=== PATIENT | female | born 1945 | race Caucasian/White ===

== ENCOUNTER → 2018-03-11 | Outpatient (CLI) | payer MEDICARE, OTHER ==
[~2018-03-11] MED LIST: ALPR.5T PO; ALPR0.5T72 PO; AMLO10TA82 PO; ATR20T PO; BNZ20T PO; CALC-656 PO; CALTRATE; CETI10TA17 PO; CHLO1CAP61 PO; CHLO25CA41 PO; CHOL400C8 PO; CHOL5000 PO; CLCX200C; CYCL5TAB PO; DICL100G20 TP; DOXA2TAB2 PO; DOXA4TAB2 PO; FURO20TA4 PO; GBPN100C PO; HYDR-3720 PO; HYDR1TAB71 PO; KCL20TCR PO; LORA10CA PO; LOTREL; LYRICA; METO100T2 PO; MMT17NA NS; MTP100TCR PO; MULT1TAB63; NAPR1TAB21 PO; NF-ESOM40C PO; OSTEO-BI-FLEX; OXYC1TAB PO; PREG75CA PO; SCR1T1 PO; TOLTA4 PO; TRAM50TA2 PO; VITAMIN B PO
--- NOTE | 2018-03-11 16:31 | Diagnostic Imaging Report ---
PROCEDURE: MRI lumbar spine. TECHNIQUE: Multiplanar, multisequence MRI of the lumbar spine was performed without contrast. INDICATION: Back pain. FINDINGS: The previous MRI lumbar spine exam performed on 05/20/2011 noted postsurgical changes, consistent with fusion of L3, L4, L5, and S1. On the prior exam, the orthopedic hardware appeared to be in good position. On this study, the orthopedic hardware seems unchanged. There is no evidence for spinal stenosis or nerve root encroachment at L3-L4, L4-L5, or L5-S1. The deformity of the thecal sac in the region of the fusion seen on the prior exam is again evident and unchanged. 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 The AP diameter of the thecal sac was narrowed to 7.5 mm. There did not appear to be any significant neuroforaminal narrowing, however. On this exam, the AP diameter of the thecal sac now measures 6.5 mm at L2-L3. There is still no significant neuroforaminal narrowing. At the L1-L2 level, there is still no evidence for spinal stenosis or nerve root encroachment. There is no abnormal signal arising from the cord or other vertebral bodies to indicate an acute abnormality. There is no sign of a paraspinal mass. However, along the superior pole of the right kidney, there is a 1.7 x 1.9 cm rounded mass. There was a similar-appearing but smaller 1.1 x 1.1 cm mass in this area on the prior exam. It is possible that this could represent a complex cyst. A solid lesion could also present in this manner. I would recommend that CT of the abdomen and pelvis be performed to better evaluate this finding. IMPRESSION: 1. 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 There is still no significant neuroforaminal narrowing at this level. 2. The remainder of the lumbar spine is stable when compared to the prior exam. No new abnormality has developed. 3. There is no sign of an acute bony abnormality or of a cord lesion. 4. The rounded soft tissue density along the medial aspect of the superior pole of the right kidney is of uncertain etiology. Considerations and recommendations, as above. Dictated by: Dictated on workstation # [id number]
== END ==
LOC: RAD 15:11
PROVIDERS: ATTEND Allergy & Immunology
DX: M48.061 Spinal stenosis, lumbar region without neurogenic claudication (principal)
CPT/HCPCS: 72148

== ENCOUNTER → 2018-04-13 | Outpatient (CLI) | payer MEDICARE, OTHER ==
--- NOTE | 2018-04-13 11:35 | Diagnostic Imaging Report ---
PROCEDURE: MR imaging abdomen without contrast. TECHNIQUE: Multiplanar, multisequence MR imaging of the abdomen was performed without contrast. INDICATION: Right renal lesion. COMPARISON: MR lumbar spine dated 03/11/2018 and 05/20/2011. FINDINGS: Again identified is heterogeneous partially exophytic mass-type lesion extending from the posterior margins of the superior pole right kidney. It measures approximately 2 x 1.7 cm in axial dimension by approximately 1.9 cm in cc dimension. The lesion demonstrates heterogeneous signal on both the T1 and T2 sequences, but is overall most similar to signal of paraspinous muscle. No fluid-fluid levels are identified. Evaluation is somewhat suboptimal given lack of IV contrast, but lesion is felt to be solid in nature. Again, there has been interval increase in size when compared to previous MR lumbar spine dated 05/20/2011 in which it measured 1.1 x 1.1 cm. There is no significant stranding of the perirenal fat. No enlarged perirenal adenopathy is identified. The right renal vein and IVC show normal flow void without evidence of tumor thrombus. Left kidney has a normal appearance. There is significant signal drop of the hepatic parenchyma between the in and out of phase sequences suggestive of background of hepatic steatosis. Otherwise, the visualized portions of the liver, spleen, pancreas, and adrenal glands are unremarkable. There is no free fluid within the abdomen. Visualized small bowel loops are nondistended. IMPRESSION: 1. Solid-appearing heterogeneous lesion of the superior pole of the right kidney. This should be considered malignant and security representative renal cell carcinoma until proven otherwise. Lesion does appear to be in a position amenable to CT-guided biopsy, if indicated. 2. Hepatic steatosis. Dictated by: Dictated on workstation # [id number]
== END ==
LOC: RAD 09:50
PROVIDERS: ATTEND Allergy & Immunology
DX: N28.89 Other specified disorders of kidney and ureter (principal); K76.0 Fatty (change of) liver, not elsewhere classified
CPT/HCPCS: 74181

== ENCOUNTER → 2019-07-19 | Outpatient (CLI) | payer MEDICARE, OTHER ==
--- NOTE | 2019-07-19 10:17 | Diagnostic Imaging Report ---
PROCEDURE: CT abdomen and pelvis without contrast. TECHNIQUE: Multiple contiguous axial images were obtained through the abdomen and pelvis without the use of intravenous contrast. Auto Exposure Controls were utilized during the CT exam to meet ALARA standards for radiation dose reduction. INDICATION: Right flank pain. COMPARISON: No prior studies are available for comparison. FINDINGS: The lung bases are clear. No discrete liver mass is identified. The gallbladder is unremarkable. No biliary ductal dilatation is seen. There are some surgical clips in the hepatogastric region. Pancreas and spleen are unremarkable. No adrenal mass is identified. There appear to be postsurgical changes to the upper pole of the right kidney. No residual or recurrent mass is detected. There is no hydronephrosis. Left kidney is unremarkable. Aorta is calcified but nonaneurysmal. Small and large bowel loops are normal in caliber. There is no obstruction. There is diverticulosis of the descending and sigmoid colon but no evidence of acute diverticulitis. Uterus is unremarkable. Bladder is decompressed. There is no ascites. No inflammatory changes are detected. Bony structures demonstrate postop changes of posterior instrumented fusion at L3 through S1. IMPRESSION: 1. Postsurgical changes to the right kidney. No residual or recurrent mass is detected. 2. Uncomplicated diverticulosis. 3. No acute feature is detected. Dictated by: Dictated on workstation # [id number]
== END ==
LOC: RAD 09:37
PROVIDERS: ATTEND Urology
DX: K57.30 Diverticulosis of large intestine without perforation or abscess without bleeding (principal); Z98.1 Arthrodesis status; Z98.890 Other specified postprocedural states
CPT/HCPCS: 74176

== ENCOUNTER → 2019-11-22 | Outpatient (CLI) | payer MEDICARE, OTHER ==
--- NOTE | 2019-11-22 13:48 | Diagnostic Imaging Report ---
PROCEDURE: MRI lumbar spine. TECHNIQUE: Multiplanar, multisequence MRI of the lumbar spine was performed without contrast. INDICATION: Low back pain. Patient has prior history of lumbar spine surgery. COMPARISON: Correlation is made with prior MRI of the lumbar spine from 11/23/2018. FINDINGS: Right convexity lumbar scoliotic curvature is noted. There is normal lordotic curvature. Decompression laminectomy L3 through L5 with posterior instrumented fusion L3 through S1 is again noted with vertical stabilization rods and pedicle screws. Hardware again produces moderate artifact. Lumbar vertebral bodies show normal stature without evidence of an acute compression fracture. Significant degenerative disc disease at L2-L3 level is again noted where there is complete loss of the disc space and desiccation as well as marginal osteophyte formation. The conus is unremarkable at the L1-L2 level. T12-L1: Central canal and neural foramina are widely patent. L1-L2: There is some ligamentous thickening and endplate osteophyte changes, but central canal is patent. Neural foramina are patent. L2-L3: Ligamentous thickening and broad-based disc/osteophyte complex indent the ventral thecal sac and produce a fairly significant central canal stenosis, similar to prior. There is also significant bilateral lateral recess stenosis and moderate left and mild right neural foraminal stenosis. L3-L4: Central canal is patent. Neural foramina appear patent. L4-L5: Central canal is patent. Neural foramina are patent. L5-S1: Central canal and neural foramina are patent. The paraspinous tissues are unremarkable. IMPRESSION: Decompression laminectomy with posterior instrumented fusion from L3 to S1. Significant adjacent level disease at the L2-L3 level is again noted with central canal, lateral recess, and neural foraminal stenosis, as described. No acute compression fracture is detected. Dictated by: Dictated on workstation # [id number]
== END ==
LOC: RAD 12:22
PROVIDERS: ATTEND Orthopaedic Surgery Orthopaedic Surgery of the Spine
DX: M48.061 Spinal stenosis, lumbar region without neurogenic claudication (principal); Z98.1 Arthrodesis status
CPT/HCPCS: 72148

== ENCOUNTER 2020-05-26 02:20 | Emergency (ER) | payer MEDICARE, OTHER ==
[~2020-05-26] VITALS: Ht 155 cm; Wt 69.0 kg
--- OUTSIDE RECORDS SUMMARY | 2020-05-26 02:31 | XMS REPORT | CCD ---
Author Author Natali Varela Organization Zoya Varela MD, [facility] Address [address] [place] [address] Phone Care Team Providers Care Hadoop Administrator Name Role Phone PP Unavailable CCM Unavailable Summary Purpose Interface Exchange Insurance Providers Payer name Policy type / Coverage type Covered green party ID Effective Begin Date Effective End Date WPS Medicare Part B Medicare Part B [id number] Unknown EnvalO INSURANCE Weilos Medicare Part B [id number] Unknown Family history Mother Diagnosis Age At Onset Liver Failure Unknown Diabetes mellitus Type 2 Unknown Hyperlipidemia Unknown Hypertension Unknown Cancer Unknown Arthritis Unknown Father Diagnosis Age At Onset Liver Failure Unknown Cancer Unknown Social History Social History Element Codes Description Effective Dates Marital status Unknown M arried 12/12/2011 Number of children Unknown 3 12/12/[address]: 4336239 Former smoker quit in 199212/12/2011 Allergies, Adverse Reactions, Alerts Substance Reaction Codes Entered Date Inactivated Date Status * NO KNOWN ENVIRONME NTAL ALLERGIES Unknown 12/12/2011 No Inactive Date Active * NO KNOWN DRUG YUKI RGIES Unknown 12/20/2011 No Inactive Date Active * NO KNOWN FOOD YUKI RGIES Unknown 12/12/2011 No Inactive Date Active Past Medical History Illness Codes Condition Status Onset Date Resolved Date Essential (primary) hypertension ICD-9: 401.1 ICD-10: I10 Active 09/22/2018 Unknown Mixed hyperlipidemia ICD-9: 272.2 ICD-10: E78.2 Active 05/13/2017 Unknown Acute bronchitis, un specified ICD-9: 466.0 ICD-10: J20.9 Active 05/11/2019 Unknown Cough ICD-9: 786.2 ICD-10: R05 Active 01/21/2019 Unknown 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 Active 02/16/2019 Unknown Acute upper respirat ory infection, unspecified ICD-9: 465.9 ICD-10: J06.9 Active 05/04/2018 Unknown Other specified card iac arrhythmias ICD-9: 427.89 ICD-10: I49.8 Active 09/22/2018 Unknown Sciatica Unknown Active 08/17/2018 Unknow n Allergic rhinitis du e to pollen ICD-9: 477.9 ICD-10: J30.1 Active 02/25/2012 Unknown Essential (primary) hypertension ICD-9: 401.9 ICD-10: I10 Active 06/16/2016 Unknown Sciatica, right side ICD-9: 724.3 ICD-10: M54.31 Active 08/17/2018 Unknown Encounter for immuni zation ICD-9: V03.82 ICD-10: Z23 Active 09/15/2016 Unknown 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 Active 06/08/2018 Unknown 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, except food ICD-9: 692.6 ICD-10: L23.7 Active 03/21/2017 Unknown Localized edema ICD-9: 782.3 ICD-10: R60.0 Active 01/10/2015 Unknown Type 2 diabetes eder itus without complications ICD-9: 250.00 ICD-10: E11.9 Active 07/19/2014 Unknown Encounter for genera l adult medical examination with abnormal findings ICD-9: V70.0 ICD-10: Z00.01 Active 01/22/2017 Unknown Bitten or stung by n onvenomous insect and other nonvenomous arthropods, initial encounter ICD-9: 919.4 ICD-10: W57.XXXA Active 03/19/2017 Unknown Cellulitis of left l ower limb ICD-9: 682.6 ICD-10: L03.116 Active 03/19/2017 Unknown Other specified epid ermal thickening ICD-9: 757.39 ICD-10: L85.8 Active 01/14/2017 Unknown Glossodynia ICD-9: 529.6 ICD-10: K14.6 Active 09/22/2016 Unknown Encounter for screen ing mammogram for malignant neoplasm of breast ICD-9: V76.12 ICD-10: Z12.31 Active 09/15/2016 Unknown Diseases of lips ICD-9: 528.5 ICD-10: K13.0 Active 06/24/2016 Unknown Acute laryngopharyng itis ICD-9: 465.0 ICD-10: J06.0 Active 04/03/2016 Unknown Other acute sinusitis ICD-9: 461.8 ICD-10: J01.80 Active 04/03/2016 Unknown Other allergic rhinitis ICD-9: 477.8 ICD-10: J30.89 Active 04/03/2016 Unknown Polyneuropathy, unsp ecified ICD-9: 356.9 ICD-10: G62.9 Active 03/12/2016 Unknown Cervicalgia ICD-9: 723.1 ICD-10: M54.2 Active 10/08/2015 Unknown Contact dermatitis ICD- 9: 692.9 Active 06/11/2015 Unknown ALLERGIC RHINITIS ICD-9: 477.9 Active 02/25/2012 Unknown Anxiety ICD-9: 300.00 Active 03/10/2014 Unknow n ESOPHAGEAL REFLUX ICD-9: 530.81 Active 04/11/2014 Unknown EDEMA ICD-9: 782.3 Active 01/10/2015 Unknow n Diabetes Unknown Active 07/19/2014 Unknow n DIABETES TYPE II ICD-9: 250.00 Active 07/19/2014 Unknown VACCIN FOR INFLUENZA ICD-9: V04.81 ICD-10: Z23 Active 07/19/2014 Unknown Left ankle pain ICD-9: 719.47 Active 06/17/2014 Unknown Elevated blood sugar ICD-9: 790.29 Active 04/19/2014 Unknown ESSENTIAL HYPERTENSION ICD-9: 401.9 Active 04/19/2014 Unknown Dyspnea ICD-9: 786.09 Active 03/10/2014 Unknow n Skin irritation ICD-9: 709.9 Active 10/25/2013 Unknown Encounter for long-t erm (current) use of other medications ICD-9: V58.69 Active 08/24/2013 Unknown BPPV (benign paroxys mal positional vertigo) ICD-9: 386.11 Active 06/30/2013 Unknown Leg pain ICD-9: 729.5 Active 12/01/2012 Unknow n Leg swelling ICD-9: 729.81 Active 12/01/2012 Unknown Shingles ICD-9: 053.9 Active 10/19/2012 Unknow n Irritable bowel disease ICD-9: 564.1 Active 2012 Unknown VACCIN FOR INFLUENZA ICD-9: V04.81 Active 08/04/2012 Unknown Lumbago ICD-9: 724.2 Active 07/01/2012 Unknow n Hot flash, menopausal ICD-9: 627.2 Active 04/20/2012 Unknown Back pain ICD-9: 724.5 Active 03/10/2012 Unknow n Malignant reactive h ypertension ICD-9: 401.0 Active 02/02 Unknown Acute bronchitis ICD-9: 466.0 Active 01/23/2012 Unknown Cough ICD-9: 786.2 Active 01/23/2012 Unknow n Change in skin mole ICD- 9: 216.9 Active 12/20/2011 Unknown CHRONIC TENSION HEAD ACHE ICD-9: 339.12 Active Unknown HYPERLIPIDEMIA ICD-9: 272.4 Active 12/20/2011 Unknown IMPACTED CERUMEN ICD-9: 380.4 Active 12/20/2011 Unknown Muscle spasm ICD-9: 728.85 Active 12/20/2011 Unknown Neck pain, chronic ICD- 9: 723.1 Active 12/20/2011 Unknown Hyperlipidemia Unknown Active 12/12/2011 Unknow n Hypertension Unknown Active 12/12/2011 Unknow n Osteoarthritis Unknown Active 12/12/2011 Unknow n Problems Condition Codes Effectiv e Dates Condition Status Essential (primary) hypertension ICD-9: 401.1 ICD-10: I10 09/22/2018 Active Mixed hyperlipidemia ICD-9: 272.2 ICD-10: E78.2 05/13/2017 Active Acute bronchitis, un specified ICD-9: 466.0 ICD-10: J20.9 05/11/2019 Active Cough ICD-9: 786.2 ICD-10: R05 01/21/2019 Active 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 02/16/2019 Active Acute upper respirat ory infection, unspecified ICD-9: 465.9 ICD-10: J06.9 05/04/2018 Active Other specified card iac arrhythmias ICD-9: 427.89 ICD-10: I49.8 09/22/2018 Active Sciatica Unknown 08/17/2018 Active Allergic rhinitis du e to pollen ICD-9: 477.9 ICD-10: J30.1 02/25/2012 Active Essential (primary) hypertension ICD-9: 401.9 ICD-10: I10 06/16/2016 Active Sciatica, right side ICD-9: 724.3 ICD-10: M54.31 08/17/2018 Active Encounter for immuni zation ICD-9: V03.82 ICD-10: Z23 09/15/2016 Active 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 06/08/2018 Active 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, except food ICD-9: 692.6 ICD-10: L23.7 03/21/2017 Active Localized edema ICD-9: 782.3 ICD-10: R60.0 01/10/2015 Active Type 2 diabetes eder itus without complications ICD-9: 250.00 ICD-10: E11.9 07/19/2014 Active Encounter for genera l adult medical examination with abnormal findings ICD-9: V70.0 ICD-10: Z00.01 01/22/2017 Active Bitten or stung by n onvenomous insect and other nonvenomous arthropods, initial encounter ICD-9: 919.4 ICD-10: W57.XXXA 03/19/2017 Active Cellulitis of left l ower limb ICD-9: 682.6 ICD-10: L03.116 03/19/2017 Active Other specified epid ermal thickening ICD-9: 757.39 ICD-10: L85.8 01/14/2017 Active Glossodynia ICD-9: 529.6 ICD-10: K14.6 09/22/2016 Active Encounter for screen ing mammogram for malignant neoplasm of breast ICD-9: V76.12 ICD-10: Z12.31 09/15/2016 Active Diseases of lips ICD-9: 528.5 ICD-10: K13.0 06/24/2016 Active Acute laryngopharyng itis ICD-9: 465.0 ICD-10: J06.0 04/03/2016 Active Other acute sinusitis ICD-9: 461.8 ICD-10: J01.80 04/03/2016 Active Other allergic rhinitis ICD-9: 477.8 ICD-10: J30.89 04/03/2016 Active Polyneuropathy, unsp ecified ICD-9: 356.9 ICD-10: G62.9 03/12/2016 Active Cervicalgia ICD-9: 723.1 ICD-10: M54.2 10/08/2015 Active Contact dermatitis ICD- 9: 692.9 06/11/2015 Active ALLERGIC RHINITIS ICD-9: 477.9 02/25/2012 Active Anxiety ICD-9: 300.00 03/10/2014 Active ESOPHAGEAL REFLUX ICD-9: 530.81 04/11/2014 Active EDEMA ICD-9: 782.3 01/10/2015 Active Diabetes Unknown 07/19/2014 Active DIABETES TYPE II ICD-9: 250.00 07/19/2014 Active VACCIN FOR INFLUENZA ICD-9: V04.81 ICD-10: Z23 07/19/2014 Active Left ankle pain ICD-9: 719.47 06/17/2014 Active Elevated blood sugar ICD-9: 790.29 04/19/2014 Active ESSENTIAL HYPERTENSION ICD-9: 401.9 04/19/2014 Active Dyspnea ICD-9: 786.09 03/10/2014 Active Skin irritation ICD-9: 709.9 10/25/2013 Active Encounter for long-t erm (current) use of other medications ICD-9: V58.69 08/24/2013 Active BPPV (benign paroxys mal positional vertigo) ICD-9: 386.11 06/30/2013 Active Leg pain ICD-9: 729.5 12/01/2012 Active Leg swelling ICD-9: 729.81 12/01/2012 Active Shingles ICD-9: 053.9 10/19/2012 Active Irritable bowel disease ICD-9: 564.1 2012 Active VACCIN FOR INFLUENZA ICD-9: V04.81 08/04/2012 Active Lumbago ICD-9: 724.2 07/01/2012 Active Hot flash, menopausal ICD-9: 627.2 04/20/2012 Active Back pain ICD-9: 724.5 03/10/2012 Active Malignant reactive h ypertension ICD-9: 401.0 02/25/2012 Active Acute bronchitis ICD-9: 466.0 01/23/2012 Active Cough ICD-9: 786.2 01/23/2012 Active Change in skin mole ICD- 9: 216.9 12/20/2011 Active CHRONIC TENSION HEAD ACHE ICD-9: 339.12 12/20/2011 Active HYPERLIPIDEMIA ICD-9: 272.4 12/20/2011 Active IMPACTED CERUMEN ICD-9: 380.4 12/20/2011 Active Muscle spasm ICD-9: 728.85 12/20/2011 Active Neck pain, chronic ICD- 9: 723.1 12/20/2011 Active Hyperlipidemia Unknown 12/12/2011 Active Hypertension Unknown 12/12/2011 Active Osteoarthritis Unknown 12/12/2011 Active Medications Medication Codes Instruc tions Start Date Stop Date Sta tus Fill Instructions meclizine 25 mg tablet RxNorm: 796988 TAKE ONE-HALF TO ONE TABLET BY MOUTH SORIN RY 6 HOURS NEEDED FOR VERTIGO 06/16/2019 06/29/2019 Inactive metoprolol tartrate 100 mg tablet RxNorm: 122446 1/2 Tablet(s) BID 06/14/2019 12/02/2021 Active this is an update to her RX - she does n ot need it filled right now Zithromax Z-Kush 250 mg tablet RxNorm: 996590 1 Tablet(s) PO UD 05/11/2019 05/15/2019 Inactive Kenalog 40 mg/mL sylvia pension for injection RxNorm: 6595664 1 Milliliter(s) Inj 05/11/2019 05/11/2019 In active tramadol 50 mg tablet RxNorm: 415300 1-2 Tablet(s) PO Q8 as needed 05/04/2019 07/02/2019 In active prednisone 10 mg tab lets in a dose pack RxNorm: 416678 1 Tablet(s) PO UD 04/12/2019 04/17/2019 In active 6-5-4-3-2-1 amlodipine 5 mg tablet RxNorm: 297902 TAKE ONE TABLET BY MOUTH DAILY 03/26/2019 12/20/2019 Ac tive atorvastatin 20 mg t ablet RxNorm: 619340 TAKE ONE TABLET BY MO [facility] DAILY 03/26/2019 09/21/2019 Ac tive doxazosin 4 mg tablet RxNorm: 064532 1 Tablet(s) UD 1.5 tab in AM and 1 tab a t hs 02/16/2019 09/13/2019 Ac tive metoprolol tartrate 100 mg tablet RxNorm: 650766 1.5 Tablet(s) BID 02/16/2019 06/13/2019 Inactive acyclovir 800 mg tablet RxNorm: 610479 1 Tablet(s) PO TID take for cold sore ou tbreaks 02/16/2019 04/26/2019 Inactive Xanax 0.25 mg tablet RxNorm: 489735 1/2-1 Tablet(s) PO QDAY PRN 02/03/2019 05/03/2019 Inactive cyclobenzaprine 10 m g tablet RxNorm: 716581 TAKE ONE TABLET BY MO UTH EVERY 8 HOURS NEEDED 01/27/2019 03/07/2019 Inactive doxazosin 4 mg tablet RxNorm: 027547 Tablet(s) TAKE ONE TABLET BY MOUTH TWO T IMES A DAY 01/21/2019 02/15/2019 Inactive doxazosin 4 mg tablet RxNorm: 104979 Tablet(s) TAKE ONE AND ONE-HALF (1 & 1/2 ) TABLET BY MOUTH BY MOUTH TWO TIMES A DAY 11/12/2018 01/20/2019 Inactive cyclobenzaprine 10 m g tablet RxNorm: 917846 TAKE ONE TABLET BY MO [facility] EVERY 8 HOURS NEEDED 11/12/2018 12/01/2018 Inactive tramadol 50 mg tablet RxNorm: 426008 1-2 Tablet(s) PO Q8 as needed 10/02/2018 05/10/2019 In active metoprolol tartrate 100 mg tablet RxNorm: 106853 1 Tablet(s) BID 09/22/2018 02/15/2019 Inactive metoprolol tartrate 100 mg tablet RxNorm: 928828 TAKE ONE AND ONE-HALF (1 1/2) TABLETS BY MOUTH EVERY MORNING AND TAKE TWO TABLETS BY MOUTH EVERY EVENING 09/21/2018 09/21/2018 In active Xanax 0.25 mg tablet RxNorm: 398774 1/2-1 Tablet(s) PO QDAY PRN 08/19/2018 05/03/2019 Inactive cyclobenzaprine 10 m g tablet RxNorm: 483026 TAKE ONE TABLET BY MO [facility] EVERY 8 HOURS NEEDED 07/01/2018 08/09/2018 Inactive atorvastatin 20 mg t ablet RxNorm: 426570 TAKE ONE TABLET BY MO [facility] DAILY 06/29/2018 12/25/2018 In active atorvastatin 20 mg t ablet RxNorm: 415143 TAKE ONE TABLET BY MO [facility] DAILY 06/29/2018 06/28/2018 In active pilocarpine 5 mg tablet RxNorm: 7145528 1 Tablet(s) PO BID 06/09/2018 06/08/2018 Inactive pilocarpine 5 mg tablet RxNorm: 2913189 1 Tablet(s) PO BID for dry mouth 06/09/2018 09/21/2018 In active Evoxac 30 mg capsule RxNorm: 843954 1 Capsule(s) PO BID as needed dry mouth 06/08/2018 06/08/2018 In active may substitute generic cyclobenzaprine 10 m g tablet RxNorm: 352009 TAKE ONE TABLET BY MO [facility] EVERY 8 HOURS NEEDED 05/14/2018 06/30/2018 Inactive amoxicillin 500 mg c apsule RxNorm: 253738 1 Capsule(s) PO BID 05/04/2018 05/13/2018 Inactive amoxicillin 500 mg c apsule RxNorm: 282553 1 Capsule(s) PO BID 05/04/2018 05/03/2018 Inactive tramadol 50 mg tablet RxNorm: 378477 1-2 Tablet(s) PO Q8 as needed 04/24/2018 06/21/2018 In active Kenalog 40 mg/mL sylvia pension for injection RxNorm: 4852273 Milliliter(s) Inj 04/24/2018 04/24/2018 In active amlodipine 5 mg tablet RxNorm: 671288 Tablet(s) TAKE ONE TABLET BY MOUTH DAILY 04/02/2018 03/25/2019 In active Xanax 0.25 mg tablet RxNorm: 289901 1/2-1 Tablet(s) PO QDAY PRN 04/02/2018 10/13/2018 Inactive metoprolol tartrate 100 mg tablet RxNorm: 062241 TAKE ONE AND ONE-HALF (1 1/2) TABLETS BY MOUTH EVERY MORNING AND TAKE TWO TABLETS BY MOUTH EVERY EVENING 02/25/2018 09/20/2018 In active Keflex 500 mg capsule RxNorm: 445157 1 Capsule(s) PO TID 02/06/2018 02/15/2018 Inactive Keflex 500 mg capsule RxNorm: 189021 1 Capsule(s) PO TID 02/06/2018 02/05/2018 Inactive Zithromax Z-Kush 250 mg tablet RxNorm: 203485 1 Tablet(s) PO UD 02/02/2018 02/06/2018 Inactive 2 tabs on day 1 then 1 tab daily on days 2-5 doxazosin 4 mg tablet RxNorm: 060813 TAKE ONE AND ONE-HALF (1 & 1/2) TABLET B Y MOUTH BY MOUTH TWO TIMES A DAY 01/16/2018 11/11/2018 Inactive atorvastatin 20 mg t ablet RxNorm: 574467 TAKE ONE TABLET BY MO [facility] DAILY 12/31/2017 06/28/2018 In active furosemide 20 mg tablet RxNorm: 228760 TAKE ONE TABLET BY MOUTH DAILY NEEDED FOR EDEMA 12/26/2017 06/23/2018 Inactive potassium chloride E R 10 mEq tablet,extended release RxNorm: 924213 TAKE ONE TABLET BY MOUTH NEEDED WITH LASIX 12/26/2017 06/23/2018 Inactive Xanax 0.25 mg tablet RxNorm: 777347 1/2-1 Tablet(s) PO QDAY PRN 11/27/2017 08/18/2018 Inactive cyclobenzaprine 10 m g tablet RxNorm: 283697 TAKE ONE TABLET BY MO [facility] EVERY 8 HOURS NEEDED 11/21/2017 02/08/2018 Inactive metoprolol tartrate 100 mg tablet RxNorm: 113101 TAKE ONE AND ONE-HALF (1 1/2) TABLETS BY MOUTH EVERY MORNING AND TAKE TWO TABLETS BY MOUTH EVERY EVENING 10/28/2017 02/24/2018 In active tramadol 50 mg tablet RxNorm: 031555 1-2 Tablet(s) PO Q8 as needed 10/28/2017 05/03/2019 In active cyclobenzaprine 10 m g tablet RxNorm: 815781 TAKE ONE TABLET BY MO [facility] EVERY 8 HOURS NEEDED 08/27/2017 10/25/2017 Inactive Xanax 0.25 mg tablet RxNorm: 702681 1/2-1 Tablet(s) PO QDAY PRN 08/04/2017 04/01/2018 Inactive cyclobenzaprine 10 m g tablet RxNorm: 395391 TAKE ONE TABLET BY MO [facility] EVERY 8 HOURS NEEDED 07/28/2017 08/16/2017 Inactive metoprolol tartrate 100 mg tablet RxNorm: 162160 TAKE ONE AND ONE-HALF (1 & 1/2) TABLET BY MOUTH EVERY MORNING AND TAKE TWO TABLETS BY MOUTH EVERY EVENING 07/28/2017 10/25/2017 In active cyclobenzaprine 10 m g tablet RxNorm: 547003 TAKE ONE TABLET BY MO [facility] EVERY 8 HOURS NEEDED 06/30/2017 07/19/2017 Inactive prednisone 10 mg tab lets in a dose pack RxNorm: 547391 1 Tablet(s) PO UD 06/23/2017 06/28/2017 In active 6-5-4-3-2-1 mupirocin 2 % topica l ointment RxNorm: 726019 1 Application TOP BID 06/23/2017 07/02/2017 Inactive Kenalog 40 mg/mL sylvia pension for injection RxNorm: 4834970 Milliliter(s) Inj 06/23/2017 06/23/2017 In active cyclobenzaprine 10 m g tablet RxNorm: 613313 TAKE ONE TABLET BY MO [facility] EVERY 8 HOURS NEEDED 06/09/2017 06/28/2017 Inactive meclizine 25 mg tablet RxNorm: 965066 1 Tablet(s) PO Q6 PRN as needed 1/2 - 1 pill every 6 hours as needed for vertigo 06/03/2017 07/14/2017 Inactive atorvastatin 20 mg t ablet RxNorm: 483495 TAKE ONE TABLET BY MO [facility] DAILY 05/30/2017 11/25/2017 In active amlodipine 5 mg tablet RxNorm: 581919 TAKE ONE TABLET BY MOUTH DAILY 05/15/2017 04/01/2018 In active cyclobenzaprine 10 m g tablet RxNorm: 777118 TAKE ONE TABLET BY MO [facility] EVERY 8 HOURS NEEDED 05/07/2017 05/26/2017 Inactive tramadol 50 mg tablet RxNorm: 154647 1-2 Tablet(s) PO Q8 as needed 04/07/2017 05/03/2019 In active cyclobenzaprine 10 m g tablet RxNorm: 030636 TAKE ONE TABLET BY MO [facility] EVERY 8 HOURS NEEDED 04/07/2017 04/26/2017 Inactive Xanax 0.25 mg tablet RxNorm: 091731 1/2-1 Tablet(s) PO QDAY PRN 04/04/2017 06/02/2017 Inactive metoprolol tartrate 100 mg tablet RxNorm: 665163 TAKE ONE AND ONE-HALF (1 & 1/2) TABLET BY MOUTH EVERY MORNING AND TAKE TWO TABLETS BY MOUTH EVERY EVENING 03/28/2017 07/25/2017 In active prednisone 10 mg tab lets in a dose pack RxNorm: 846989 1 Tablet(s) PO UD 03/21/2017 03/26/2017 In active 6-5-4-3-2-1 Kenalog 40 mg/mL sylvia pension for injection RxNorm: 8779637 2 Milliliter(s) Inj 03/21/2017 03/21/2017 In active doxycycline hyclate 100 mg capsule RxNorm: 1519673 1 Capsule(s) PO BID 03/19/2017 03/28/2017 In active cyclobenzaprine 10 m g tablet RxNorm: 645246 TAKE ONE TABLET BY MO [facility] EVERY 8 HOURS NEEDED 02/25/2017 03/16/2017 Inactive triamcinolone aceton pineda 0.1 % topical ointment RxNorm: 0392373 1 Application TOP TI D 02/21/2017 02/20/2017 Inactive triamcinolone aceton pineda 0.1 % topical ointment RxNorm: 6411716 1 Application TOP TI D 02/21/2017 03/02/2017 Inactive doxazosin 4 mg tablet RxNorm: 239706 TAKE ONE AND ONE-HALF (1 & 1/2) TABLET B Y MOUTH BY MOUTH TWO TIMES A DAY 02/14/2017 01/09/2018 Inactive cyclobenzaprine 10 m g tablet RxNorm: 826486 TAKE ONE TABLET BY [facility] EVERY 8 HOURS NEEDED 01/27/2017 02/15/2017 Inactive ammonium lactate 12 % topical cream RxNorm: 832276 1 Application TOP BID 01/14/2017 02/12/2017 In active dispense one bottle of the cream potassium chloride E R 10 mEq tablet,extended release RxNorm: 951876 1 Tablet(s) PO PRN as needed with lasix 11/13/2016 12/25/2017 Inactive prn swelling furosemide 20 mg tablet RxNorm: 941300 1 Tablet(s) PO daily as needed edema 11/13/2016 01/11/2017 In active metoprolol tartrate 100 mg tablet RxNorm: 626556 TAKE ONE AND ONE-HALF (1 & 1/2) TABLET BY MOUTH EVERY MORNING AND TAKE TWO TABLETS BY MOUTH EVERY EVENING 11/01/2016 03/27/2017 In active atorvastatin 20 mg t ablet RxNorm: 697115 TAKE ONE TABLET BY MO [facility] DAILY 10/31/2016 04/28/2017 In active cyclobenzaprine 10 m g tablet RxNorm: 314654 TAKE ONE TABLET BY [facility] EVERY 8 HOURS NEEDED 10/25/2016 12/03/2016 Inactive Lyrica 25 mg capsule RxNorm: 095817 1 Tablet(s) PO BID 09/23/2016 01/13/2017 Inactive Lyrica 50 mg capsule RxNorm: 574685 1 Capsule(s) PO BID 09/16/2016 01/13/2017 Inactive amlodipine 5 mg tablet RxNorm: 054256 Tablet(s) TAKE ONE TABLET BY MOUTH DAILY 08/28/2016 05/14/2017 In active cyclobenzaprine 10 m g tablet RxNorm: 986826 TAKE ONE TABLET BY [facility] EVERY 8 HOURS NEEDED 08/05/2016 09/13/2016 Inactive Xanax 0.25 mg tablet RxNorm: 721905 1/2-1 Tablet(s) PO QDAY PRN 07/16/2016 04/03/2017 Inactive amlodipine 5 mg tablet RxNorm: 963883 TAKE ONE TABLET BY MOUTH DAILY 06/28/2016 08/26/2016 In active metoprolol tartrate 100 mg tablet RxNorm: 083280 Tablet(s) TAKE ONE AN D ONE-HALF (1 & 1/2) TABLET BY MOUTH EVERY MORNING AND TAKE TWO TABLETS BY MOUTH EVERY EVENING 05/02/2016 05/02/2016 Inactive metoprolol tartrate 100 mg tablet RxNorm: 574578 Tablet(s) PO TAKE ONE AND ONE-HALF (1 & 1/2) TABLET BY MOUTH EVERY MORNING AND TAKE TWO TABLETS BY MOUTH EVERY EVENING 05/02/2016 05/01/2016 Inactive metoprolol tartrate 100 mg tablet RxNorm: 054258 Tablet(s) PO TAKE ONE AND ONE-HALF (1 & 1/2) TABLET BY MOUTH EVERY MORNING AND TAKE TWO TABLETS BY MOUTH EVERY EVENING 05/02/2016 10/28/2016 Inactive atorvastatin 20 mg t ablet RxNorm: 454083 TAKE ONE TABLET BY [facility] DAILY 04/25/2016 10/21/2016 In active tramadol 50 mg tablet RxNorm: 488619 1-2 Tablet(s) PO Q8 as needed 04/25/2016 10/27/2017 In active cyclobenzaprine 10 m g tablet RxNorm: 200390 Tablet(s) PO TAKE ONE TABLET BY MOUTH EVERY 8 HOURS NEEDED 04/18/2016 06/16/2016 Inactive Kenalog 40 mg/mL sylvia pension for injection RxNorm: 5338828 1 Milliliter(s) Inj 04/04/2016 04/04/2016 In active Phenergan with Codei ne Syrup RxNorm: PO 04/03/2016 02/15/2019 Inactive Zithromax Z-Kush 250 mg tablet RxNorm: 555503 1 Tablet(s) PO UD 04/03/2016 04/07/2016 Inactive 2 tabs on day 1 then 1 tab daily on days 2-5 amlodipine 5 mg tablet RxNorm: 690246 TAKE ONE TABLET BY MOUTH DAILY 03/27/2016 06/24/2016 In active Flexeril 10 mg tablet RxNorm: 362803 TAKE ONE TABLET BY MOUTH EVERY 8 HOURS A S NEEDED 03/14/2016 04/02/2016 Inactive Vitamin B-12 ER 2,00 0 mcg tablet,extended release RxNorm: 713923 1 Tablet(s) PO daily 03/13/2016 No Stop Date Active Vitamin B-12 ER 2,00 0 mcg tablet,extended release RxNorm: 860270 1 Tablet(s) PO daily 03/13/2016 05/04/2019 Inactive gabapentin 100 mg ca psule RxNorm: 207855 1 Capsule(s) PO BID 03/13/2016 09/15/2016 Inactive Flexeril 10 mg tablet RxNorm: 297632 Tablet(s) TAKE ONE TABLET BY MOUTH EVERY 8 HOURS NEEDED 02/08/2016 02/27/2016 Inactive Xanax 0.25 mg tablet RxNorm: 780230 1/2-1 Tablet(s) PO QDAY PRN 02/08/2016 07/15/2016 Inactive amlodipine 5 mg tablet RxNorm: 765599 1 Tablet(s) PO daily 02/06/2016 03/26/2016 Inactive furosemide 20 mg tablet RxNorm: 590354 1 Tablet(s) PO daily 01/30/2016 06/16/2016 Inactive amlodipine 10 mg tablet RxNorm: 641753 1/2 Tablet(s) PO daily 01/30/2016 02/05/2016 Inactive doxazosin 4 mg tablet RxNorm: 287909 1.5 Tablet(s) PO BID 01/30/2016 01/23/2017 Inactive Flexeril 10 mg tablet RxNorm: 861262 TAKE ONE TABLET BY MOUTH EVERY 8 HOURS A S NEEDED 01/10/2016 01/29/2016 Inactive potassium chloride E R 10 mEq tablet,extended release RxNorm: 982433 1 Tablet(s) PO PRN as needed with lasix 12/25/2015 06/16/2016 Inactive prn swelling amlodipine 10 mg tablet RxNorm: 499346 TAKE ONE TABLET BY MOUTH EVERY MORNING 12/25/2015 12/24/2015 In active amlodipine 10 mg tablet RxNorm: 896903 TAKE ONE TABLET BY MOUTH EVERY MORNING 12/25/2015 01/29/2016 In active furosemide 20 mg tablet RxNorm: 871154 1/2 Tablet(s) PO daily as needed edema 12/21/2015 01/19/2016 In active pt needs to take 10meq potassium on days she takes the lasix metoprolol tartrate 100 mg tablet RxNorm: 442778 TAKE ONE AND ONE-HALF (1 & 1/2) TABLET BY MOUTH EVERY MORNING AND TAKE TWO TABLETS BY MOUTH EVERY EVENING 11/08/2015 12/07/2015 In active Flonase Allergy Reli ef 50 mcg/actuation nasal spray,suspension RxNorm: [place] as needed PLACE 2 SPRAYS IN EACH NOSTRIL DAILY 10/09/2015 02/05/2016 Inactive Flexeril 10 mg tablet RxNorm: 072602 1 Tablet(s) PO TID PRN TAKE ONE TABLET B Y MOUTH EVERY 8 HOURS NEEDED 10/09/2015 12/07/2015 Inactive alprazolam 0.5 mg ta blet RxNorm: 661846 TAKE ONE TABLET BY [facility] AT BEDTIME NEEDED FOR ANXIETY 08/29/2015 11/23/2015 Inactive Flonase Allergy Reli ef 50 mcg/actuation nasal spray,suspension RxNorm: PLACE 2 SPRAYS IN EACH NOSTRIL DAILY 07/06/2015 10/08/2015 Inactive Kenalog 40 mg/mL [facility] for injection RxNorm: 3101417 Milliliter(s) Inj 06/12/2015 06/12/2015 In active prednisone 10 mg tab lets in a dose pack RxNorm: 082939 1 Tablet(s) PO UD 06/12/2015 06/17/2015 In active 6-5-4-3-2-1 acyclovir 800 mg tablet RxNorm: 574881 1 Tablet(s) PO TID 06/12/2015 06/21/2015 Inactive Xanax 0.25 mg tablet RxNorm: 589339 1/2-1 Tablet(s) PO QDAY PRN 05/15/2015 02/07/2016 Inactive Flonase Allergy Reli ef 50 mcg/actuation nasal spray,suspension RxNorm: 2 [place] NASAL daily 05/15/2015 06/13/2015 Inactive Kenalog 40 mg/mL sylvia pension for injection RxNorm: 6350120 Milliliter(s) Inj 05/15/2015 05/15/2015 In active metoprolol tartrate 100 mg tablet RxNorm: 730273 TAKE ONE AND ONE-HALF (1 & 1/2) TABLET BY MOUTH EVERY MORNING AND TAKE TWO TABLETS BY MOUTH EVERY EVENING 05/07/2015 06/05/2015 In active metoprolol tartrate 100 mg tablet RxNorm: 808457 TAKE ONE AND ONE-HALF (1 & 1/2) TABLET BY MOUTH EVERY MORNING AND TAKE TWO TABLETS BY MOUTH EVERY EVENING 04/05/2015 05/04/2015 In active amlodipine 10 mg tablet RxNorm: 128035 TAKE ONE TABLET BY MOUTH EVERY MORNING 03/10/2015 12/04/2015 In active alprazolam 0.5 mg ta blet RxNorm: 740742 TAKE ONE TABLET BY MO UTH EVERY NIGHT AT BEDTIME NEEDED FOR ANXIETY 02/23/2015 03/24/2015 Inactive (Response to an electronic controlled substance refill request - RxReferenceNumber: [id number]) alprazolam 0.5 mg ta blet RxNorm: 002114 1 Tablet(s) PO QHS as needed anxiety 02/23/2015 08/29/2015 In active (Response to an electronic controlled salas bstance refill request - RxReferenceNumber: [id number]) doxazosin 4 mg tablet RxNorm: 740715 TAKE ONE TABLET BY MOUTH TWICE A DAY 02/13/2015 01/29/2016 In active atorvastatin 20 mg t ablet RxNorm: 248509 TAKE ONE TABLET BY MO UTH EVERY DAY 01/19/2015 05/03/2019 In active atorvastatin 20 mg t ablet RxNorm: 993527 Tablet(s) TAKE ONE TA BLET BY MOUTH EVERY DAY 01/19/2015 01/18/2015 Inactive [SAVINGS FOR NON-COVERED DRUGS -- BIN:3584, PCN: ASPROD1, Group: XXXXX, ID# [id number], Questions: . THIS IS NOT INSURANCE.] Maxzide-25mg 37.5 mg -25 mg tablet RxNorm: 94096 1 Tablet(s) PO daily 01/10/2015 10/08/2015 Inactive [SAVINGS FOR NON-COVERED DRUGS -- BIN:3584, PCN: ASPROD1, Group: [id number], ID# [id number], Questions: . THIS IS NOT INSURANCE.] metoprolol tartrate 100 mg tablet RxNorm: 482970 TAKE ONE AND ONE-HALF (1 & 1/2) TABLET BY MOUTH EVERY MORNING AND TAKE TWO TABLETS BY MOUTH EVERY EVENING 12/05/2014 01/03/2015 In active Flexeril 10 mg tablet RxNorm: 380865 TAKE ONE TABLET BY MOUTH EVERY 8 HOURS A S NEEDED 10/31/2014 06/27/2015 Inactive alprazolam 0.5 mg ta blet RxNorm: 842532 1 Tablet(s) PO QHS TA KE ONE TABLET BY MOUTH EVERY NIGHT AT BEDTIME AND NEEDED FOR PANIC ATTACKS 10/21/2014 10/23/2014 Inactive (Appended: Controlled substance eRx refi ll - RxReferenceNumber: [id number]) alprazolam 0.5 mg ta blet RxNorm: 623820 TAKE ONE TABLET BY MO UTH EVERY NIGHT AT BEDTIME NEEDED FOR ANXIETY 10/20/2014 11/18/2014 Inactive (Response to an electronic controlled substance refill request - RxReferenceNumber: [id number]) amlodipine 10 mg tablet RxNorm: 656659 1 Tablet(s) PO QAM 09/09/2014 03/07/2015 Inactive now taking full tab [SAVINGS FOR UNINSURED PATIENTS -- BIN:[id number], PCN: ASPROD1, Group: [id number], ID# [id number], Process claim through [employer], for questions: . THIS IS NOT INSURANCE.] metoprolol tartrate 100 mg tablet RxNorm: 754196 TAKE ONE AND ONE-HALF (1 & 1/2) TABLET BY MOUTH EVERY MORNING AND TAKE TWO TABLETS BY MOUTH EVERY EVENING 09/03/2014 10/02/2014 In active alprazolam 0.5 mg ta blet RxNorm: 541683 TAKE ONE TABLET BY MO UTH EVERY NIGHT AT BEDTIME AND NEEDED FOR PANIC ATTACKS 08/29/2014 09/12/2014 Inactive (Response to an electronic controlled substance refill request - RxReferenceNumber: [id number]) Zithromax Z-Kush 250 mg tablet RxNorm: 001853 1 Tablet(s) PO UD 07/26/2014 07/25/2014 Inactive 2 tabs on day 1 then 1 tab daily on days 2-5 Zithromax Z-Kush 250 mg tablet RxNorm: 999226 1 Tablet(s) PO UD 07/26/2014 07/30/2014 Inactive 2 tabs on day 1 then 1 tab daily on days 2-5 alprazolam 0.5 mg ta blet RxNorm: 677977 Tablet(s) PO TAKE ONE TABLET BY MOUTH EVERY NIGHT AT BEDTIME AND NEEDED FOR PANIC ATTACKS 07/08/2014 08/30/2014 Inactive (Appended: Controlled substance eRx refill - RxReferenceNumber: [id number]) atorvastatin 20 mg t ablet RxNorm: 673079 TAKE ONE TABLET BY MO UTH EVERY DAY 04/25/2014 01/18/2015 In active Carafate 1 gram tablet RxNorm: 696646 Tablet(s) PO TAKE ONE TABLET BY MOUTH FO UR TIMES A DAY 04/14/2014 10/08/2015 Inactive Fish Oil 1,000 mg ca psule RxNorm: 1 Capsule(s) PO TID 04/13/2014 10/08/2015 Inactive Flexeril 10 mg tablet RxNorm: 658479 1 Tablet(s) PO Q8 PRN 04/01/2014 04/10/2014 Inactive Carafate 1 gram tablet RxNorm: 224641 1 Tablet(s) PO QID 03/10/2014 02/15/2019 Inactive chlordiazepoxide-cli dinium 5 mg-2.5 mg capsule RxNorm: 375197 1 Capsule(s) PO TID P RN 03/10/2014 04/10/2014 Inactive doxazosin 4 mg tablet RxNorm: 728694 1 Tablet(s) PO BID 02/02/2014 02/12/2015 Inactive Kenalog 40 mg/mL sylvia pension for injection RxNorm: 5968063 Milliliter(s) Inj 02/02/2014 02/02/2014 In active atorvastatin 20 mg t ablet RxNorm: 725054 Tablet(s) PO TAKE ONE TABLET BY MOUTH EVERY DAY 01/10/2014 04/24/2014 Inactive alprazolam 0.5 mg ta blet RxNorm: 464748 Tablet(s) PO TAKE ONE TABLET BY MOUTH EVERY NIGHT AT BEDTIME AND NEEDED FOR PANIC ATTACKS 01/10/2014 07/07/2014 Inactive (Appended: Controlled substance eRx refill - RxReferenceNumber: [id number]) alprazolam 0.5 mg ta blet RxNorm: 643873 1 Tablet(s) PO QHS TA KE ONE TABLET BY MOUTH EVERY NIGHT AT BEDTIME AND NEEDED FOR PANIC ATTACKS 01/10/2014 10/20/2014 Inactive (Appended: Controlled substance eRx refi ll - RxReferenceNumber: [id number]) alprazolam 0.5 mg ta blet RxNorm: 222110 Tablet(s) PO TAKE ONE TABLET BY MOUTH EVERY NIGHT AT BEDTIME AND NEEDED FOR PANIC ATTACKS 01/10/2014 01/09/2014 Inactive (Appended: Controlled substance eRx refill - RxReferenceNumber: [id number]) Carafate 1 gram tablet RxNorm: 730192 1 Tablet(s) PO QID 12/16/2013 01/14/2014 Inactive Nexium 40 mg capsule ,delayed release RxNorm: 580177 Capsule(s) PO TAKE ON E CAPSULE BY MOUTH EVERY DAY 11/25/2013 03/12/2016 Inactive doxazosin 4 mg tablet RxNorm: 012034 1/2 Tablet(s) PO QPM 10/21/2013 01/20/2019 Inactive alprazolam 0.5 mg ta blet RxNorm: 274171 1 Tablet(s) PO as dir ected q hs and prn panic attacks 10/18/2013 01/10/2014 Inactive doxazosin 4 mg tablet RxNorm: 328652 1 q am 1/2 q pm Tablet(s) PO 09/21/2013 02/01/2014 Inactive doxazosin 4 mg tablet RxNorm: 125647 1 q am 1/2 q pm Tablet(s) PO 09/21/2013 09/20/2013 Inactive amlodipine 10 mg tablet RxNorm: 684699 1 Tablet(s) PO QAM 08/30/2013 08/24/2014 Inactive now taking full tab metoprolol tartrate 100 mg tablet RxNorm: 296167 2 Tablet(s) PO QPM 08/24/2013 10/22/2013 Inactive alprazolam 0.5 mg ta blet RxNorm: 398150 1 Tablet(s) PO as dir ected q hs and prn panic attacks 07/29/2013 10/17/2013 Inactive Benicar 20 mg tablet RxNorm: 039856 1 Tablet(s) PO daily 07/26/2013 08/09/2013 Inactive amlodipine 10 mg tablet RxNorm: 495024 1 Tablet(s) PO QAM 07/19/2013 08/29/2013 Inactive cyclobenzaprine 5 mg tablet RxNorm: 704690 1 Tablet(s) PO TID FL N one pill every 8 hours as needed for muscle spasms. 07/19/2013 03/31/2014 Inactive Kenalog 40 mg/mL Sylvia p for Injection RxNorm: 3028805 1 Milliliter(s) Inj 06/30/2013 06/30/2013 In active prednisone 10 mg tab lets in a dose pack RxNorm: 443345 1 Tablet(s) PO as doc tor directed take steroid taper as directed on box 06/30/2013 07/09/2013 Inactive disp ense one PACK meclizine 25 mg tablet RxNorm: 063280 1 Tablet(s) PO Q6 PRN 1/2 - 1 pill every 6 hours as needed for vertigo 06/30/2013 08/10/2013 Inactive metoprolol tartrate 100 mg tablet RxNorm: 282665 1.5 Tablet(s) PO BID 06/30/2013 08/23/2013 In active metoprolol tartrate 100 mg tablet RxNorm: 872299 1 Tablet(s) PO BID 06/24/2013 06/29/2013 Inactive metoprolol tartrate 100 mg tablet RxNorm: 325326 1 Tablet(s) PO daily 06/17/2013 06/23/2013 In active metoprolol tartrate 100 mg tablet RxNorm: 171950 1 Tablet(s) PO daily 06/17/2013 06/16/2013 In active Toprol XL 100 mg tab let,extended release RxNorm: 620780 Tablet(s) PO TAKE ONE AND ONE- HALF TABLET BY MOUTH EVERY MORNING AND ONE TABLET IN THE EVENING 05/05/2013 06/22/2013 In active alprazolam 0.5 mg ta blet RxNorm: 737104 1 Tablet(s) PO as dir ected q hs and prn panic attacks 04/06/2013 07/28/2013 Inactive doxazosin 4 mg tablet RxNorm: 585960 Tablet(s) PO TAKE ONE TABLET BY MOUTH EV 04/01/2013 09/20/2013 Inactive Toprol XL 100 mg tab let,extended release RxNorm: 504684 Tablet(s) PO TAKE ONE AND ONE- HALF TABLET BY MOUTH EVERY MORNING AND ONE TABLET IN THE EVENING 12/25/2012 05/04/2013 In active Lasix 20 mg tablet RxNorm: 527260 1 Tablet(s) PO QDAY PRN Take 1 tab daily x 3 days then as needed 12/02/2012 04/10/2014 Inactive potassium chloride E R 20 mEq tablet,extended release(part/cryst) RxNorm: 332309 1 Tablet(s) PO PRN 12/02/2012 10/04/2013 Inactive prn swelling alprazolam 0.5 mg ta blet RxNorm: 503959 1 Tablet(s) PO as dir ected q hs and prn panic attacks 12/01/2012 04/05/2013 Inactive amlodipine 10 mg tablet RxNorm: 842329 1/2 Tablet(s) PO QAM 12/01/2012 07/18/2013 Inactive fluconazole 150 mg t ablet RxNorm: 018550 1 Tablet(s) PO daily 11/16/2012 11/20/2012 Inactive fluconazole 150 mg t ablet RxNorm: 684101 1 Tablet(s) PO daily 11/16/2012 11/15/2012 Inactive Nexium 40 mg capsule ,delayed release RxNorm: 771933 1 Capsule(s) PO daily 10/23/2012 11/16/2013 In active acyclovir 400 mg tablet RxNorm: 782925 1 Tablet(s) PO TID 10/19/2012 10/28/2012 Inactive chlordiazepoxide-cli dinium 5 mg-2.5 mg capsule RxNorm: 646185 1 Capsule(s) PO TID P RN 2012 12/22/2013 Inactive Voltaren 1 % Topical Gel RxNorm: 933069 4 Gram(s) TOP QID pt is to use 2 grams to each hand and 4 grams to knees. 08/18/2012 04/10/2014 Inactive doxazosin 4 mg tablet RxNorm: 931788 1 Tablet(s) PO QAM 08/18/2012 10/16/2012 Inactive atorvastatin 20 mg t ablet RxNorm: 780933 1 Tablet(s) PO HS 08/12/2012 08/11/2012 Inactive may have #90 x3 infection atorvastatin 20 mg t ablet RxNorm: 969465 1 Tablet(s) PO HS 08/12/2012 09/05/2013 Inactive may have #90 x3 infection doxazosin 4 mg tablet RxNorm: 995702 1 Tablet(s) PO daily 08/11/2012 08/17/2012 Inactive clonidine 0.1 mg/24 hr Weekly Transderm Patch RxNorm: 604305 1 Patch TD QW 08/04/2012 08/10/2012 In active Influenza Virus Vacc ine 0.5 mL RxNorm: IM 08/04/2012 08/04/2012 Inactive cyclobenzaprine 5 mg tablet RxNorm: 625300 1 Tablet(s) PO TID FL N one pill every 8 hours as needed for muscle spasms. 07/13/2012 11/09/2012 Inactive cyclobenzaprine 5 mg tablet RxNorm: 452596 1 Tablet(s) PO TID FL N one pill every 8 hours as needed for muscle spasms. 07/09/2012 07/12/2012 Inactive gabapentin 100 mg ca psule RxNorm: 782071 1 Capsule(s) PO TID 07/01/2012 12/01/2012 Inactive atorvastatin 20 mg t ablet RxNorm: 383823 1/2 Tablet(s) PO daily 07/01/2012 08/11/2012 Inactive may of day supply if cheaper Toprol XL 100 mg tab let,extended release RxNorm: 303594 Tablet(s) PO BID 11/2 in am and 1 in evening 07/01/2012 06/16/2013 Inactive 1 1/2 q am 1 in sorin alprazolam 0.5 mg ta blet RxNorm: 804092 1 Tablet(s) PO as dir ected q hs and prn panic attacks 06/24/2012 11/30/2012 Inactive amlodipine 10 mg tablet RxNorm: 177411 1 Tablet(s) PO QAM 06/19/2012 11/30/2012 Inactive benazepril 20 mg tablet RxNorm: 582093 1 Tablet(s) PO daily 06/19/2012 06/13/2013 Inactive one daily at noon Toprol XL 100 mg tab let,extended release RxNorm: 718386 Tablet(s) PO BID 06/19/2012 06/30/2012 In active 1 1/2 q am 1 in sorin Toprol XL 100 mg tab let,extended release RxNorm: 625034 1 1/2 Tablet(s) PO BI D 04/27/2012 06/18/2012 In active 90 or 30 day supply, whatever ins will a llow Lotrel 10 mg-20 mg Cap RxNorm: 517867 1 Capsule(s) PO daily 04/20/2012 08/04/2012 Inactive estradiol 0.5 mg Tab RxNorm: 596275 1 Tablet(s) PO BID 04/20/2012 12/02/2012 Inactive Toprol XL 100 mg 24 hr Tab RxNorm: 518832 1 1/2 Tablet(s) PO BID 04/14/2012 04/26/2012 Inactive Toprol XL 100 mg 24 hr Tab RxNorm: 824366 Tablet(s) PO daily 03/31/2012 04/13/2012 Inactive new directions: one q am 1/2 every evepl ease put on file until she needs filled Lipitor 10 mg tablet RxNorm: 100015 1 Tablet(s) PO daily 03/31/2012 12/02/2012 Inactive may of 90 day supply if cheaper Toprol XL 100 mg 24 hr Tab RxNorm: 069865 1 Tablet(s) PO daily 03/11/2012 03/30/2012 Inactive Boniva 150 mg Tab RxNorm: 695492 1 Tablet(s) PO weekly 02/19/2012 12/02/2012 Inactive Detrol LA 4 mg capsu le,extended release RxNorm: 723492 1 Capsule(s) PO daily 02/19/2012 03/12/2016 In active doxycycline hyclate 100 mg Tab RxNorm: 1537487 1 Tablet(s) PO BID 01/23/2012 02/25/2012 Inactive Rocephin 500 mg Solu tion for Injection RxNorm: 3436541 1 Milliliter(s) Inj 01/23/2012 01/23/2012 In active Kenalog 40 mg/mL Sylvia p for Injection RxNorm: 5418539 1 Milliliter(s) Inj 01/23/2012 01/23/2012 In active cyclobenzaprine 5 mg tablet RxNorm: 278786 1 Tablet(s) PO TID FL N one pill every 8 hours as needed for muscle spasms. 12/20/2011 04/17/2012 Inactive clonidine 0.1 mg Tab RxNorm: 553635 1 Tablet(s) PO BID 12/20/2011 02/25/2012 Inactive Celebrex 200 mg capsule RxNorm: 388315 1 Capsule(s) PO daily -Prescribed by Dr. Madison No Start Date Active Vitamin D3 5,000 uni t tablet RxNorm: 725909 1 Tablet(s) PO daily No Start Date Active Nexium 24HR 22.3 mg capsule,delayed release RxNorm: 349426 1 Capsule(s) PO daily as needed No Start Date Active Lotrel 10 mg-20 mg Cap RxNorm: 801724 1 Capsule(s) PO daily No Start Date 02/24/2012 Inactive benazepril 20 mg tablet RxNorm: 647001 1 Tablet(s) PO No Start Date 06/18/2012 Inactive one daily at noon Vimovo 500 mg-20 mg multiphase, immed & delay rel Tab RxNorm: 275174 1 Tablet(s) PO BID No Start Date 12/01/2012 Inactive B12 1000 mcg RxNorm: 2 IM daily No Start Date 03/12/2016 Inactive Fish Oil 1,000 mg ca psule RxNorm: 1 Capsule(s) PO BID No Start Date 04/12/2014 Inactive Benicar 40 mg tablet RxNorm: 836484 1 Tablet(s) PO daily No Start Date 10/24/2013 Inactive Carafate 1 gram tablet RxNorm: 752497 Oral No Start Date 12/15/2013 Inactive Vitamin B-12 1,000 m cg tablet RxNorm: 273753 1 Tablet(s) PO daily No Start Date 03/12/2016 Inactive amlodipine 10 mg tablet RxNorm: 095676 1 Tablet(s) PO daily No Start Date 06/18/2012 Inactive Phenergan VC-Codeine 6.25 mg-5 mg-10 mg/5 mL Syrup RxNorm: 780703 5-10 Milliliter(s) PO Q6 PRN No Start Date 04/10/2014 Inactive Celebrex 200 mg capsule RxNorm: 188504 1 Capsule(s) PO daily No Start Date 10/08/2015 Inactive Percocet 5 mg-325 mg tablet RxNorm: 0706527 1-2 Tablet(s) PO Q6 PRN No Start Date 06/16/2014 Inactive Exforge 10 mg-320 mg Tab RxNorm: 072059 1 Tablet(s) PO daily sample No Start Date 05/20/2012 Inactive Lipitor 10 mg Tab RxNorm: 736808 1 Tablet(s) PO daily No Start Date 03/30/2012 Inactive tramadol 50 mg tablet RxNorm: 115311 1-2 Tablet(s) PO Q8 as needed No Start Date 04/24/2016 Inactive Lasix 20 mg tablet RxNorm: 277242 1 Tablet(s) PO QDAY PRN Take 1 tab daily x 3 days then as needed No Start Date 12/01/2012 Inactive potassium chloride E R 20 mEq tablet,extended release(part/cryst) RxNorm: 1719882 1 Tablet(s) PO QDAY PRN No Start Ochoa e 12/01/2012 Inactive Toprol XL 100 mg 24 hr Tab RxNorm: 305119 1 Tablet(s) PO daily No Start Date 03/10/2012 Inactive MIDRIN 325 mg-65 mg- 100 mg Cap RxNorm: 688248 1 Capsule(s) PO PRN No Start Date 05/20/2012 Inactive Nexium 40 mg capsule ,delayed release RxNorm: 415484 1 Capsule(s) PO daily No Start Date 10/22/2012 Inactive Detrol LA 4 mg 24 hr Cap RxNorm: 732024 Oral No S tart Date 02/18/2012 Inactive Boniva 150 mg Tab RxNorm: 236940 Oral No Start Date 02/18/2012 Inactive Flexeril 10 mg tablet RxNorm: 953598 1 Tablet(s) PO Q8 PRN No Start Date 03/31/2014 Inactive clidinium bromide Oral RxNorm: Oral No Start Date 12/01/2012 Inactive Fish Oil 360 mg-1,20 0 mg capsule,delayed release RxNorm: 1 Capsule(s) PO daily No Start Date 02/15/2019 Inactive alprazolam 0.5 mg ta blet RxNorm: 807281 1 Tablet(s) PO as dir ected q hs and prn panic attacks No Start Date 06/23/2012 Inactive chlordiazepoxide Oral RxNorm: Oral No Start Date 12/01/2012 Inactive metoprolol tartrate 100 mg tablet RxNorm: 249505 Tablet(s) PO TAKE ONE AND ONE-HALF (1 & 1/2) TABLET BY MOUTH EVERY MORNING AND TAKE TWO TABLETS BY MOUTH EVERY EVENING No Start Date 08/03/2014 Inactive furosemide 20 mg tablet RxNorm: 190186 1 Tablet(s) PO daily No Start Date 01/29/2016 Inactive Calcium Oral RxNorm: Oral No Start Date 03/12 Inactive Nasonex 50 mcg/actua tion [place] RxNorm: 884044 1 [place] NASAL BID No Start Date 04/10/2014 Inactive Medication Administered Medication Codes Instruc tions Start Date Status Kenalog 40 mg/mL suspension for injection RxNorm: 2414782 1Milliliter 05/11/2019 N o longer Active Kenalog 40 mg/mL suspension for injection RxNorm: 5623740 Milliliter 04/24/2018 No longer Active Kenalog 40 mg/mL suspension for injection RxNorm: 8956239 Milliliter 06/23/2017 No longer Active Kenalog 40 mg/mL suspension for injection RxNorm: 3066892 2Milliliter 03/21/2017 N o longer Active Kenalog 40 mg/mL suspension for injection RxNorm: 5486205 1Milliliter 04/04/2016 N o longer Active Kenalog 40 mg/mL suspension for injection RxNorm: 4551846 Milliliter 06/12/2015 No longer Active Kenalog 40 mg/mL suspension for injection RxNorm: 9723956 Milliliter 05/15/2015 No longer Active Kenalog 40 mg/mL suspension for injection RxNorm: 2661246 Milliliter 02/02/2014 No longer Active Kenalog 40 mg/mL Susp for Injection RxNorm: 2506266 1Milliliter 06/30/2013 N o longer Active Influenza Virus Vaccine 0.5 mL RxNorm: 08/04/2012 No longer Active Rocephin 500 mg Solution for Injection RxNorm: 6238343 1Milliliter 01/23/2012 N o longer Active Kenalog 40 mg/mL Susp for Injection RxNorm: 2970198 1Milliliter 01/23/2012 N o longer Active Immunizations Vaccine Codes Date Status Influenza CVX: 141 07/28 completed Pneumococcal (Adult) CVX: 33 09/16/2016 completed Influenza CVX: 141 08/27 completed Pneumococcal CVX: 133 completed Influenza CVX: 141 07/28 completed Influenza CVX: 141 07/19 completed Influenza CVX: 141 07/26 completed Influenza CVX: 141 08/04 completed Influenza CVX: 141 09/03 completed Pneumococcal (Adult) CVX: 33 09/03/2010 completed Tetanus, Diptheria, Pertussis CVX: 09 06/02/2008 completed Tetanus/Diptheria CVX: 06/02/2008 completed Assessments Condition Codes Effectiv e Dates Essential (primary) hypertension ICD -10: I10 ICD-9: 401.1 06/14/2019 Mixed hyperlipidemia ICD-10: E78.2 ICD-9: 272.2 06/14/2019 Acute bronchitis, unspecified ICD-10 : J20.9 ICD-9: 466.0 05/11/2019 Cough ICD-10: R05 ICD-9: 786.2 05/11/2019 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: K12.0 ICD-9: 528.2 02/16/2019 Acute upper respiratory infection, unspecified ICD-10: J06.9 ICD-9: 465.9 01/21/2019 Other specified cardiac arrhythmias ICD-10: I49.8 ICD-9: 427.89 09/22/2018 Essential (primary) hypertension ICD -10: I10 ICD-9: 401.9 08/17/2018 Allergic rhinitis due to pollen ICD- 10: J30.1 ICD-9: 477.9 08/17/2018 Sciatica, right side ICD-10: M54.31 ICD-9: 724.3 08/17/2018 Encounter for immunization ICD-10: Z 23 ICD-9: V03.82 07/28/2018 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 ICD-9: 236.91 06/08/2018 Allergic contact dermatitis due to plants, except food ICD-10: L23.7 ICD-9: 692.6 04/24/2018 Localized edema ICD-10: R60.0 ICD-9: 782.3 02/04/2018 Type 2 diabetes mellitus without complications ICD-10: E11.9 ICD-9: 250.00 02/04/2018 Encounter for general adult medical exam ination with abnormal findings ICD-10: Z00.01 ICD-9: V70.0 02/03/2018 Cellulitis of left lower limb ICD-10 : L03.116 ICD-9: 682.6 03/19/2017 Bitten or stung by nonvenomous insect an d other nonvenomous arthropods, initial encounter ICD-10: W57.XXXA ICD-9: 919.4 03/19/2017 Other specified epidermal thickening ICD-10: L85.8 ICD-9: 757.39 01/14/2017 Glossodynia ICD-10: K14.6 ICD-9: 529.6 09/23/2016 Encounter for screening mammogram for ma lignant neoplasm of breast ICD-10: Z12.31 ICD-9: V76.12 09/16/2016 Diseases of lips ICD-10: K13.0 ICD-9: 528.5 06/25/2016 Other allergic rhinitis ICD-10: J30. 89 ICD-9: 477.8 04/04/2016 Other acute sinusitis ICD-10: J01.80 ICD-9: 461.8 04/04/2016 Acute laryngopharyngitis ICD-10: J06 .0 ICD-9: 465.0 04/04/2016 Polyneuropathy, unspecified ICD-10: G62.9 ICD-9: 356.9 03/13/2016 Cervicalgia ICD-10: M54.2 ICD-9: 723.1 10/09/2015 VACCIN FOR INFLUENZA ICD-9: V04.81 07/28/2015 Contact dermatitis ICD-9: 692.9 06/12/2015 Anxiety ICD-9: 300.00 DIABETES TYPE II ICD-9: 250.00 06/05/2015 ESSENTIAL HYPERTENSION ICD-9: 401.9 06/05/2015 ESOPHAGEAL REFLUX ICD-9: 530.81 05/15/2015 ALLERGIC RHINITIS ICD-9: 477.9 05/15/2015 EDEMA ICD-9: 782.3 01/10 VACCIN FOR INFLUENZA ICD-10: Z23 ICD-9: V04.81 07/19/2014 Left ankle pain ICD-9: 719.47 06/17/2014 Elevated blood sugar ICD-9: 790.29 04/19/2014 Dyspnea ICD-9: 786.09 Skin irritation ICD-9: 709.9 10/25/2013 HYPERLIPIDEMIA ICD-9: 272.4 08/24/2013 Encounter for long-term (current) use of other medicat ions ICD-9: V58.69 08/24/2013 BPPV (benign paroxysmal positional vertigo) ICD-9: 386.11 06/30/2013 Leg swelling ICD-9: 729.81 12/01/2012 Leg pain ICD-9: 729.5 Shingles ICD-9: 053.9 Irritable bowel disease ICD-9: 564.1 2012 Lumbago ICD-9: 724.2 Hot flash, menopausal ICD-9: 627.2 04/20/2012 Back pain ICD-9: 724.5 0 03/10/2012 SPASM OF MUSCLE ICD-9: 728.85 03/10/2012 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 02/25/2012 COUGH ICD-9: 786.2 02/24 Acute bronchitis ICD-9: 466.0 01/23/2012 IMPACTED CERUMEN ICD-9: 380.4 01/02/2012 Neck pain, chronic ICD-9: 723.1 12/20/2011 Change in skin mole ICD-9: 216.9 12/20/2011 CHRONIC TENSION HEADACHE ICD-9: 339.12 12/20/2011 Reason For Visit Reason For Visit Effective Dates Notes hypertension 06/14/2019 cough 05/11/2019 sores in the mouth 02/16/2019 cough 01/21/2019 hypertension 10/14/2018 fatigue 09/22/2018 leg pain/sciatica 08/17/2018 hypertension 06/08/2018 cough 05/04/2018 hypertension 02/04/2018 Annual Medicare Wellness Exam 02/03/2018 hypertension 09/17/2017 rash 06/23/2017 hypertension 05/13/2017 rash 03/21/2017 arthropod bite 03/19/2017 Annual Medicare Wellness Exam 01/22/2017 hypertension 01/14/2017 sores 09/23/2016 hypertension 09/16/2016 skin lesion 06/25/2016 hypertension 06/17/2016 cough 04/03/2016 edema 03/13/2016 edema 01/30/2016 edema 12/21/2015 hypertension 10/09/2015 vaccination against influenza 07/28/2015 rash 06/12/2015 hypertension 06/05/2015 shortness of breath 05/15/2015 edema 02/06/2015 toes ri ght foot edema 01/10/2015 toes ri ght foot vaccination against influenza 07/19/2014 diabetic education edema 06/17/2014 left an kle/foot diabetes mellitus 04/19/2014 diabetic education hypertension 04/11/2014 shortness of breath 03/10/2014 nasal allergies 02/02/2014 hypertension 10/25/2013 blood pressure followup 08/24/2013 vertigo 07/26/2013 vertigo 06/30/2013 hypertension 06/24/2013 edema 12/01/2012 rash 10/19/2012 edema 10/07/2012 edema 2012 blood pressure followup 08/18/2012 hypertension 08/04/2012 blood pressure followup 07/01/2012 hypertension 05/20/2012 hypertension 04/20/2012 hypertension 03/10/2012 cough 02/25/2012 had miladis ephin, kenalog, and doxy which helped, but it came backpt states she has a plate in her neck and is concerned that it may be related hypertension 02/19/2012 cough 01/23/2012 cerumen 01/02/[address] arted on lipitor 2 weeks ago hypertension 12/20/2011 has been about 1 year since her last labs Results Observation Observation Code Item Item Code Result Date Metabolic Ord15 NA 137 mEq/L 07/09/2019 Metabolic Ord15 K 4.0 mEq/L 07/09/2019 Metabolic Ord15 CL 103 mEq/L 07/09/2019 Metabolic Ord15 CO2 29.0 mEq/L 07/09/2019 Metabolic Ord15 GLUCOSE 84 mg/dL 07/09/2019 Metabolic Ord15 BUN 16 mg/dL 07/09/2019 Metabolic Ord15 Creat 0.7 mg/dL 07/09/2019 Metabolic Ord15 B/C Ratio 21.6 Ratio 07/09/2019 Metabolic Ord15 eGFR 82 ml/min/1.73m2 07/09/2019 Metabolic Ord15 Osmo 274 mOsmo 07/09/2019 Metabolic Ord15 ANION GAP 9 07/09/2019 Metabolic Ord15 CALCIUM 9.1 mg/dL 07/09/2019 [facility] WBC 5.7 K/uL 06/05/2015 [facility] LYM 1.5 K/uL 06/05/2015 [facility] LYM% 25.7 % 06/05/2015 [facility] NEUT/GRAN 3.8 K/uL 06/05/2015 [facility] NEUT/GRAN % 66.9 % 06/05/2015 [facility] MID 0.4 K/uL 06/05/2015 [facility] MID% 7.4 % 06/05/2015 [facility] RBC 4.48 M/uL 06/05/2015 [facility] HGB 12.9 g/dL 06/05/2015 [facility] HCT 39.9 % 06/05/2015 Cbc With Differential Ord2 MCV 89 fL 06/05/2015 Cbc With Differential Ord2 MCH 29 pg 06/05/2015 Cbc With Differential Ord2 MCHC 32 g/dL 06/05/2015 Cbc With Differential Ord2 PLT 229 K/uL 06/05/2015 Cbc With Differential Ord2 RDW 14.8 % 06/05/2015 Comp Metabolic Jrb359 NA 138 mEq/L 06/05/2015 Comp Metabolic Uni431 K 4.3 mEq/L 06/05/2015 Comp Metabolic Hic510 CL 100 mEq/L 06/05/2015 Comp Metabolic Jdr629 CO2 29.0 mEq/L 06/05/2015 Comp Metabolic Uon017 AN ION GAP 13 06/05/2015 Comp Metabolic Dls225 GL UCOSE 85 mg/dL 06/05/2015 Comp Metabolic Aop934 Cr eat 0.7 mg/dL 06/05/2015 Comp Metabolic Ypv756 eG FR 94 ml/min/1.73m2 06/05 Comp Metabolic Tqy931 BUN 16 mg/dL 06/05/2015 Comp Metabolic Hoc338 B/ C Ratio 24.2 Ratio 06/05/2015 Comp Metabolic Yfx692 CA LCIUM 9.5 mg/dL 06/05/2015 Comp Metabolic Sgj560 AL K PHOS 69 U/L 06/05/2015 Comp Metabolic Ecg454 T(SGOT) 22 U/L 06/05/2015 Comp Metabolic Tdg837 AL T(SGPT) 26 U/L 06/05/2015 Comp Metabolic Fyj314 BI LI T 0.5 mg/dL 06/05/2015 Comp Metabolic Guh439 AL BUMIN 4.2 g/dL 06/05/2015 Comp Metabolic Yof001 TP RO 6.1 g/dL 06/05/2015 Comp Metabolic Fsg586 GL OB 1.9 g/dL 06/05/2015 Comp Metabolic Pdx144 A/ G Ratio 2.2 Ratio 06/05/2015 Comp Metabolic Rkn682 Os mo 276 mOsmo 06/05/2015 Tsh Ord6 hTSH II 1.99 uIU/mL 06/05/2015 Lipid Ord30 CHOL 171 mg/dL 06/05/2015 Lipid Ord30 HDL 55.0 mg/dl 06/05/2015 Lipid Ord30 TRIG 178 mg/dL 06/05/2015 Lipid Ord30 LDL 80 mg/dL 06/05/2015 Lipid Ord30 C/HDL 3.1 Ratio 06/05/2015 %Hba1C Oxo802 % HbA1c 25956-2 5.7 % 06/05/2015 %Hba1C Sxw541 Gluc Ave 117 mg/dL 06/05/2015 A1C HPLC [id number] A1C HPLC 29358-9 5.6 % 07/15/2014 GFR CALC 8439793 GFR AA >60 ML/MIN 07/15/2014 GFR CALC 4013429 GFR NON -AA >60 ML/MIN 07/15/2014 CHEM 14 [id number] AST 21 U/L 07/15/2014 CHEM 14 [id number] ALT 23 IU/L 07/15/2014 CHEM 14 [id number] BUN 14 MG/DL 07/15/2014 CHEM 14 [id number] ALBUMIN 4.2 GM/DL 07/15/2014 CHEM 14 [id number] CHLORIDE 104 MMOL/L 07/15/2014 CHEM 14 [id number] BILI TOT 0.4 MG/DL 07/15/2014 CHEM 14 1926550 ALK PHOS 88 U/L 07/15/2014 CHEM 14 [id number] SODIUM 140 MMOL/L 07/15/2014 CHEM 14 1941582 CREATINI NE 0.63 MG/DL 07/15/2014 CHEM 14 [id number] CALCIUM 9.4 MG/DL 07/15/2014 CHEM 14 [id number] POTASSIUM 4.0 MMOL/L 07/15/2014 CHEM 14 1326153 PROT TOT 6.4 GM/DL 07/15/2014 CHEM 14 7316370 GLUCOSE 90 MG/DL 07/15/2014 CHEM 14 6191806 BICARB 30 MMOL/L 07/15/2014 CHEM 14 4976444 ANION GAP 6 MEQ/L 07/15/2014 A1C HPLC [id number] A1C HPLC 79432-3 6.0 % 04/13/2014 TSH [id number] TSH 1.875 uIU/ML 04/12/2014 CHEM 14 [id number] AST 17 U/L 04/12/2014 CHEM 14 [id number] ALT 20 IU/L 04/12/2014 CHEM 14 2754851 BUN 14 MG/DL 04/12/2014 CHEM 14 [id number] ALBUMIN 4.2 GM/DL 04/12/2014 CHEM 14 3660136 CHLORIDE 104 MMOL/L 04/12/2014 CHEM 14 9619120 BILI TOT 0.3 MG/DL 04/12/2014 CHEM 14 4819414 ALK PHOS 80 U/L 04/12/2014 CHEM 14 2086351 SODIUM 141 MMOL/L 04/12/2014 CHEM 14 [id number] CREATINI NE 0.62 MG/DL 04/12/2014 CHEM 14 6065133 CALCIUM 9.4 MG/DL 04/12/2014 CHEM 14 [id number] POTASSIUM 3.5 MMOL/L 04/12/2014 CHEM 14 6177109 PROT TOT 6.5 GM/DL 04/12/2014 CHEM 14 9659446 GLUCOSE 89 MG/DL 04/12/2014 CHEM 14 [id number] BICARB 29 MMOL/L 04/12/2014 CHEM 14 0362072 ANION GAP 8 MEQ/L 04/12/2014 LIPID GRP HDL TE ST 59 MG/DL 04/12/2014 LIPID GRP [id number] TRIG 177 MG/DL 04/12/2014 LIPID GRP [id number] TEST L DL 106 MG/DL 04/12/2014 LIPID GRP 8788561 CHOL 200 MG/DL 04/12/2014 LIPID GRP RCHOL/ HDL 3.39 RATIO 04/12/2014 CBC [id number] WBC 4.6 10e9/L 04/12/2014 CBC [id number] RBC 4.52 10e12/L 04/12/2014 CBC [id number] HGB 13.1 g/dL 04/12/2014 CBC [id number] HCT DET 39.2 % 04/12/2014 CBC [id number] MCV 86.7 fL 04/12/2014 CBC [id number] MCH 29.0 pg 04/12/2014 CBC [id number] MCHC 33.4 g/dL 04/12/2014 CBC [id number] PLT 233 10e9/L 04/12/2014 CBC [id number] MPV 9.8 fL 04/12/2014 CBC [id number] AN % 59.5 % 04/12/2014 CBC [id number] LY % 28.6 % 04/12/2014 CBC [id number] MON % 10.0 % 04/12/2014 CBC [id number] EOS % 1.5 % 04/12/2014 CBC [id number] BASO % 0.4 % 04/12/2014 CBC [id number] RDW 13.7 % 04/12/2014 CBC [id number] ABS AN 2.74 10e9/L 04/12/2014 CBC [id number] ABS LYMPH 1.32 10e9/L 04/12/2014 CBC [id number] ABS MONO 0.46 10e9/L 04/12/2014 CBC [id number] ABS EOS 0.07 10e9/L 04/12/2014 CBC [id number] ABS BASO 0.02 10e9/L 04/12/2014 CBC [id number] RDW-SD 42.6 fL 04/12/2014 GFR CALC 9072197 GFR AA >60 ML/MIN 04/12/2014 GFR CALC 2471363 GFR NON -AA >60 ML/MIN 04/12/2014 LIPID GRP HDL TE ST 57 MG/DL 08/24/2013 LIPID GRP TRIG 183 MG/DL 08/24/2013 LIPID GRP TEST L DL 64 MG/DL 08/24/2013 LIPID GRP CHOL 158 MG/DL 08/24/2013 LIPID GRP RCHOL/ HDL 2.77 RATIO 08/24/2013 GFR CALC 5015715 GFR AA >60 ML/MIN 08/24/2013 GFR CALC 8498158 GFR NON -AA >60 ML/MIN 08/24/2013 CHEM 14 [id number] AST 13 U/L 08/24/2013 CHEM 14 [id number] ALT 15 IU/L 08/24/2013 CHEM 14 [id number] BUN 14 MG/DL 08/24/2013 CHEM 14 [id number] ALBUMIN 4.3 GM/DL 08/24/2013 CHEM 14 [id number] CHLORIDE 106 MMOL/L 08/24/2013 CHEM 14 5700723 BILI TOT 0.3 MG/DL 08/24/2013 CHEM 14 2017891 ALK PHOS 75 U/L 08/24/2013 CHEM 14 6144724 SODIUM 141 MMOL/L 08/24/2013 CHEM 14 6387132 CREATINI NE 0.56 MG/DL 08/24/2013 CHEM 14 [id number] CALCIUM 9.1 MG/DL 08/24/2013 CHEM 14 2464811 POTASSIUM 4.2 MMOL/L 08/24/2013 CHEM 14 6107374 PROT TOT 6.0 GM/DL 08/24/2013 CHEM 14 1280606 GLUCOSE 83 MG/DL 08/24/2013 CHEM 14 [id number] BICARB 28 MMOL/L 08/24/2013 CHEM 14 0946262 ANION GAP 7 MEQ/L 08/24/2013 CBC [id number] WBC 4.7 10e9/L 08/24/2013 CBC [id number] RBC 4.33 10e12/L 08/24/2013 CBC 3881031 HGB 12.5 g/dL 08/24/2013 CBC [id number] HCT DET 38.2 % 08/24/2013 CBC [id number] MCV 88.2 fL 08/24/2013 CBC [id number] MCH 28.9 pg 08/24/2013 CBC [id number] MCHC 32.7 g/dL 08/24/2013 CBC [id number] PLT 218 10e9/L 08/24/2013 CBC [id number] MPV 10.4 fL 08/24/2013 CBC [id number] AN % 61.9 % 08/24/2013 CBC [id number] LY % 24.8 % 08/24/2013 CBC [id number] MON % 10.3 % 08/24/2013 CBC [id number] EOS % 2.1 % 08/24/2013 CBC [id number] BASO % 0.9 % 08/24/2013 CBC [id number] RDW 14.6 % 08/24/2013 CBC [id number] ABS AN 2.91 10e9/L 08/24/2013 CBC [id number] ABS LYMPH 1.17 10e9/L 08/24/2013 CBC [id number] ABS MONO 0.48 10e9/L 08/24/2013 CBC [id number] ABS EOS 0.10 10e9/L 08/24/2013 CBC [id number] ABS BASO 0.04 10e9/L 08/24/2013 CBC [id number] RDW-SD 46.7 fL 08/24/2013 TSH [id number] TSH 1.208 uIU/ML 08/24/2013 Review of Systems System Result Effective Dates Constitutional No recent illness 06/14/2019 Constitutional No anorexia 06/14/2019 Constitutional No night sweats 06/14/2019 Constitutional No chills 06/14/2019 Constitutional No diaphoresis 06/14/2019 Constitutional fatigue 0 06/14/2019 Constitutional No fever 06/14/2019 Constitutional No insomnia 06/14/2019 Constitutional No malaise 06/14/2019 Eyes No eye discharge Eyes No eye erythema 10/2019 Ears/Nose/Throat/Neck No dizziness 06/14/2019 Ears/Nose/Throat/Neck No nasal allergies 06/14/2019 Ears/Nose/Throat/Neck No nasal discharge 06/14/2019 Ears/Nose/Throat/Neck No sore throat 06/14/2019 Ears/Nose/Throat/Neck No otalgia 06/14/2019 Ears/Nose/Throat/Neck No sinus congestion 06/14/2019 Cardiovascular No chest pain/pressure 06/14/2019 Cardiovascular No dyspnea 06/14/2019 Cardiovascular hypertension 06/14/2019 Respiratory No productive sputum 06/14/2019 Respiratory No chest congestion 06/14/2019 Respiratory No cough 10/2019 Gastrointestinal No abdominal pain 06/14/2019 Gastrointestinal No constipation 06/14/2019 Gastrointestinal No diarrhea 06/14/2019 Gastrointestinal No nausea 06/14/2019 Gastrointestinal No vomiting 06/14/2019 Genitourinary/Nephrology No dysuria 06/14/2019 Musculoskeletal stiffness 06/14/2019 Musculoskeletal arthralgia(s) 06/14/2019 Musculoskeletal joint complaint 06/14/2019 Musculoskeletal muscle weakness 06/14/2019 Psychiatric anxiety 06/03 Ears/Nose/Throat/Neck oral lesion 06/14/2019 Dermatologic No rash 10/2019 Dermatologic No sores Constitutional No recent illness 05/11/2019 Constitutional No night sweats 05/11/2019 Constitutional No chills 05/11/2019 Constitutional No diaphoresis 05/11/2019 Constitutional No fatigue 05/11/2019 Constitutional No fever 05/11/2019 Constitutional No insomnia 05/11/2019 Constitutional No malaise 05/11/2019 Constitutional No weight loss 05/11/2019 Constitutional No weight gain 05/11/2019 Constitutional No obesity 05/11/2019 Eyes No blindness 2018 Eyes No eye discharge Eyes No eye erythema 07/2019 Eyes No eye floaters 07/2019 Eyes No eye foreign body 05/11/2019 Eyes No eye pain 019 Eyes No eye tearing 07/2019 Eyes No eye trauma 05/11 Eyes No eyelid edema 07/2019 Eyes No eyelid erythema 05/11/2019 Eyes No eyelid pain 07/2019 Eyes No photophobia 07/2019 Eyes No vision change Eyes No amblyopia 2018 Eyes No cataract 019 Eyes No glaucoma 019 Eyes No macular degeneration 05/11/2019 Ears/Nose/Throat/Neck No dry mouth 05/11/2019 Ears/Nose/Throat/Neck No dental pain 05/11/2019 Ears/Nose/Throat/Neck dizziness 05/11/2019 Ears/Nose/Throat/Neck No dysphagia 05/11/2019 Ears/Nose/Throat/Neck headache 05/11/2019 Ears/Nose/Throat/Neck No hearing loss 05/11/2019 Ears/Nose/Throat/Neck No nasal allergies 05/11/2019 Ears/Nose/Throat/Neck nasal discharge 05/11/2019 Ears/Nose/Throat/Neck No postnasal drip 05/11/2019 Ears/Nose/Throat/Neck No sinus congestion 05/11/2019 Ears/Nose/Throat/Neck No sore throat 05/11/2019 Cardiovascular No arrhythmia 05/11/2019 Cardiovascular No chest pain/pressure 05/11/2019 Cardiovascular No dyspnea 05/11/2019 Cardiovascular No edema 05/11/2019 Cardiovascular No exercise intolerance 05/11/2019 Cardiovascular No fatigue 05/11/2019 Cardiovascular No near-syncope/dizziness 05/11/2019 Cardiovascular No orthopnea 05/11/2019 Cardiovascular No palpitations 05/11/2019 Respiratory No electronic cigarettes/Vapor 05/11/2019 Respiratory No asthma Respiratory No pleuritic pain 05/11/2019 Respiratory productive sputum 05/11/2019 Respiratory No chest tightness 05/11/2019 Respiratory No cigarette smoking 05/11/2019 Respiratory cough 2018 Respiratory No dyspnea 0 05/11/2019 Respiratory No pedal edema 05/11/2019 Respiratory No snoring 0 05/11/2019 Respiratory No wheezing 05/11/2019 Gastrointestinal No hemorrhoids 05/11/2019 Gastrointestinal No abdominal pain 05/11/2019 Gastrointestinal No constipation 05/11/2019 Gastrointestinal No diarrhea 05/11/2019 Gastrointestinal No gastroesophageal reflu x 05/11/2019 Gastrointestinal No melena 05/11/2019 Gastrointestinal No nausea 05/11/2019 Gastrointestinal No vomiting 05/11/2019 Genitourinary/Nephrology No dysuria 05/11/2019 Genitourinary/Nephrology No nocturia 05/11/2019 Genitourinary/Nephrology No urinary incontinence 05/11/2019 Musculoskeletal No stiffness 05/11/2019 Musculoskeletal No swelling 05/11/2019 Musculoskeletal No muscle weakness 05/11/2019 Musculoskeletal No myalgias 05/11/2019 Dermatologic No pruritus 05/11/2019 Dermatologic No rash 07/2019 Dermatologic No scar 07/2019 Neurologic No dizziness 05/11/2019 Neurologic No headache 0 05/11/2019 Neurologic No neck pain 05/11/2019 Neurologic No syncope Psychiatric No confusion 05/11/2019 Psychiatric No anxiety 0 05/11/2019 Psychiatric No depression 05/11/2019 Constitutional No recent illness 02/16/2019 Constitutional No anorexia 02/16/2019 Constitutional No night sweats 02/16/2019 Constitutional No chills 02/16/2019 Constitutional No diaphoresis 02/16/2019 Constitutional fatigue 0 02/16/2019 Constitutional No fever 02/16/2019 Constitutional No insomnia 02/16/2019 Constitutional No malaise 02/16/2019 Eyes No eye discharge Eyes No eye erythema Ears/Nose/Throat/Neck No dizziness 02/16/2019 Ears/Nose/Throat/Neck No nasal allergies 02/16/2019 Ears/Nose/Throat/Neck No nasal discharge 02/16/2019 Ears/Nose/Throat/Neck No sore throat 02/16/2019 Ears/Nose/Throat/Neck No otalgia 02/16/2019 Ears/Nose/Throat/Neck No sinus congestion 02/16/2019 Cardiovascular No chest pain/pressure 02/16/2019 Cardiovascular No dyspnea 02/16/2019 Cardiovascular hypertension 02/16/2019 Respiratory No productive sputum 02/16/2019 Respiratory No chest congestion 02/16/2019 Respiratory No cough Gastrointestinal No abdominal pain 02/16/2019 Gastrointestinal No constipation 02/16/2019 Gastrointestinal No diarrhea 02/16/2019 Gastrointestinal No nausea 02/16/2019 Gastrointestinal No vomiting 02/16/2019 Genitourinary/Nephrology No dysuria 02/16/2019 Musculoskeletal stiffness 02/16/2019 Musculoskeletal arthralgia(s) 02/16/2019 Musculoskeletal joint complaint 02/16/2019 Musculoskeletal muscle weakness 02/16/2019 Psychiatric anxiety 02/01 Constitutional recent illness 01/21/2019 Constitutional No anorexia 01/21/2019 Constitutional No chills 01/21/2019 Constitutional No night sweats 01/21/2019 Constitutional No diaphoresis 01/21/2019 Constitutional fatigue 0 01/21/2019 Constitutional No fever 01/21/2019 Constitutional No insomnia 01/21/2019 Constitutional No malaise 01/21/2019 Constitutional No weight loss 01/21/2019 Constitutional No weight gain 01/21/2019 Eyes No eye discharge Eyes No eye erythema Ears/Nose/Throat/Neck No dizziness 01/21/2019 Ears/Nose/Throat/Neck No headache 01/21/2019 Ears/Nose/Throat/Neck nasal allergies 01/21/2019 Ears/Nose/Throat/Neck nasal discharge 01/21/2019 Ears/Nose/Throat/Neck No otalgia 01/21/2019 Ears/Nose/Throat/Neck sinus congestion 01/21/2019 Ears/Nose/Throat/Neck No sore throat 01/21/2019 Cardiovascular No chest pain/pressure 01/21/2019 Cardiovascular No dyspnea 01/21/2019 Cardiovascular No edema 01/21/2019 Respiratory No productive sputum 01/21/2019 Respiratory No chest congestion 01/21/2019 Respiratory cough 2018 Gastrointestinal No vomiting 01/21/2019 Gastrointestinal No nausea 01/21/2019 Gastrointestinal No diarrhea 01/21/2019 Genitourinary/Nephrology No dysuria 01/21/2019 Musculoskeletal No joint complaint 01/21/2019 Dermatologic No rash Neurologic No alteration of consciousness 01/21/2019 Constitutional recent illness 10/14/2018 Constitutional fatigue 1 12/15/2017 Cardiovascular arrhythmia 10/14/2018 Cardiovascular fatigue 1 12/15/2017 Cardiovascular No near-syncope/dizziness 10/14/2018 Respiratory No chest congestion 10/14/2018 Respiratory No chest tightness 10/14/2018 Respiratory No cough 10/2018 Neurologic No dizziness 10/14/2018 Neurologic No gait abnormality 10/14/2018 Neurologic headache 10/03 Psychiatric No anxiety 1 12/15/2017 Psychiatric No depression 10/14/2018 Gastrointestinal No abdominal pain 10/14/2018 Musculoskeletal stiffness 10/14/2018 Musculoskeletal arthralgia(s) 10/14/2018 Musculoskeletal joint complaint 10/14/2018 Constitutional recent illness 09/22/2018 Constitutional fatigue 1 11/22/2017 Psychiatric No anxiety 1 11/22/2017 Psychiatric No depression 09/22/2018 Cardiovascular arrhythmia 09/22/2018 Cardiovascular fatigue 1 11/22/2017 Cardiovascular No near-syncope/dizziness 09/22/2018 Respiratory No cough Respiratory No chest congestion 09/22/2018 Respiratory No chest tightness 09/22/2018 Neurologic headache 09/04 Neurologic No dizziness 09/22/2018 Neurologic No gait abnormality 09/22/2018 Constitutional recent illness 08/17/2018 Constitutional No anorexia 08/17/2018 Constitutional No night sweats 08/17/2018 Constitutional No chills 08/17/2018 Constitutional No diaphoresis 08/17/2018 Constitutional fatigue 1 Constitutional No fever 08/17/2018 Constitutional No insomnia 08/17/2018 Constitutional No malaise 08/17/2018 Eyes No eye discharge Eyes No eye erythema Ears/Nose/Throat/Neck No dizziness 08/17/2018 Ears/Nose/Throat/Neck No nasal allergies 08/17/2018 Ears/Nose/Throat/Neck No nasal discharge 08/17/2018 Ears/Nose/Throat/Neck No sore throat 08/17/2018 Ears/Nose/Throat/Neck No otalgia 08/17/2018 Ears/Nose/Throat/Neck No sinus congestion 08/17/2018 Cardiovascular No chest pain/pressure 08/17/2018 Cardiovascular No dyspnea 08/17/2018 Cardiovascular hypertension 08/17/2018 Respiratory No productive sputum 08/17/2018 Respiratory chest congestion 08/17/2018 Respiratory cough 2017 Gastrointestinal No abdominal pain 08/17/2018 Gastrointestinal No constipation 08/17/2018 Gastrointestinal No diarrhea 08/17/2018 Gastrointestinal No nausea 08/17/2018 Gastrointestinal No vomiting 08/17/2018 Genitourinary/Nephrology No dysuria 08/17/2018 Musculoskeletal stiffness 08/17/2018 Musculoskeletal arthralgia(s) 08/17/2018 Musculoskeletal joint complaint 08/17/2018 Musculoskeletal muscle weakness 08/17/2018 Psychiatric anxiety 08/03 Constitutional No recent illness 06/08/2018 Constitutional No anorexia 06/08/2018 Constitutional No night sweats 06/08/2018 Constitutional No chills 06/08/2018 Constitutional No diaphoresis 06/08/2018 Constitutional fatigue 0 06/08/2018 Constitutional No fever 06/08/2018 Constitutional No insomnia 06/08/2018 Constitutional No malaise 06/08/2018 Eyes No eye discharge Eyes No eye erythema 04/2018 Ears/Nose/Throat/Neck No dizziness 06/08/2018 Ears/Nose/Throat/Neck No nasal allergies 06/08/2018 Ears/Nose/Throat/Neck No nasal discharge 06/08/2018 Ears/Nose/Throat/Neck No sore throat 06/08/2018 Ears/Nose/Throat/Neck No otalgia 06/08/2018 Ears/Nose/Throat/Neck No sinus congestion 06/08/2018 Cardiovascular No chest pain/pressure 06/08/2018 Cardiovascular No dyspnea 06/08/2018 Cardiovascular hypertension 06/08/2018 Respiratory No productive sputum 06/08/2018 Respiratory No chest congestion 06/08/2018 Respiratory No cough 04/2018 Gastrointestinal No abdominal pain 06/08/2018 Gastrointestinal No constipation 06/08/2018 Gastrointestinal No diarrhea 06/08/2018 Gastrointestinal No nausea 06/08/2018 Gastrointestinal No vomiting 06/08/2018 Genitourinary/Nephrology No dysuria 06/08/2018 Musculoskeletal stiffness 06/08/2018 Musculoskeletal arthralgia(s) 06/08/2018 Musculoskeletal joint complaint 06/08/2018 Musculoskeletal muscle weakness 06/08/2018 Psychiatric anxiety 08/04/2018 Constitutional recent illness 05/04/2018 Constitutional No anorexia 05/04/2018 Constitutional No night sweats 05/04/2018 Constitutional No chills 05/04/2018 Constitutional No diaphoresis 05/04/2018 Constitutional No fatigue 05/04/2018 Constitutional No fever 05/04/2018 Constitutional No insomnia 05/04/2018 Constitutional No malaise 05/04/2018 Constitutional No weight loss 05/04/2018 Constitutional No weight gain 05/04/2018 Eyes No eye erythema 12/2017 Eyes No eye discharge Ears/Nose/Throat/Neck No dizziness 05/04/2018 Ears/Nose/Throat/Neck nasal allergies 05/04/2018 Ears/Nose/Throat/Neck nasal discharge 05/04/2018 Ears/Nose/Throat/Neck otalgia 05/04/2018 Ears/Nose/Throat/Neck sinus congestion 05/04/2018 Ears/Nose/Throat/Neck sore throat 05/04/2018 Cardiovascular No chest pain/pressure 05/04/2018 Cardiovascular No dyspnea 05/04/2018 Cardiovascular No edema 05/04/2018 Respiratory cough 2017 Gastrointestinal No abdominal pain 05/04/2018 Gastrointestinal No diarrhea 05/04/2018 Gastrointestinal No constipation 05/04/2018 Genitourinary/Nephrology No dysuria 05/04/2018 Musculoskeletal No joint complaint 05/04/2018 Dermatologic No rash 12/2017 Neurologic No alteration of consciousness 05/04/2018 Constitutional No recent illness 02/04/2018 Constitutional No anorexia 02/04/2018 Constitutional No night sweats 02/04/2018 Constitutional No chills 02/04/2018 Constitutional No diaphoresis 02/04/2018 Constitutional fatigue 0 02/04/2018 Constitutional No fever 02/04/2018 Constitutional No insomnia 02/04/2018 Constitutional No malaise 02/04/2018 Eyes No eye discharge Eyes No eye erythema 02/2018 Ears/Nose/Throat/Neck No dizziness 02/04/2018 Ears/Nose/Throat/Neck No nasal allergies 02/04/2018 Ears/Nose/Throat/Neck No nasal discharge 02/04/2018 Ears/Nose/Throat/Neck No sore throat 02/04/2018 Ears/Nose/Throat/Neck No otalgia 02/04/2018 Ears/Nose/Throat/Neck No sinus congestion 02/04/2018 Cardiovascular No chest pain/pressure 02/04/2018 Cardiovascular No dyspnea 02/04/2018 Respiratory No productive sputum 02/04/2018 Respiratory No chest congestion 02/04/2018 Respiratory No cough 02/2018 Gastrointestinal No abdominal pain 02/04/2018 Gastrointestinal No constipation 02/04/2018 Gastrointestinal No diarrhea 02/04/2018 Gastrointestinal No nausea 02/04/2018 Gastrointestinal No vomiting 02/04/2018 Genitourinary/Nephrology No dysuria 02/04/2018 Musculoskeletal stiffness 02/04/2018 Musculoskeletal arthralgia(s) 02/04/2018 Musculoskeletal joint complaint 02/04/2018 Dermatologic No rash 02/2018 Neurologic No alteration of consciousness 02/04/2018 Neurologic pain, limb Psychiatric anxiety 02/2018 Cardiovascular hypertension 02/04/2018 Musculoskeletal muscle weakness 02/04/2018 Constitutional No recent illness 02/03/2018 Constitutional No chills 02/03/2018 Constitutional No diaphoresis 02/03/2018 Constitutional No fever 02/03/2018 Eyes No eye erythema 01/2018 Ears/Nose/Throat/Neck No nasal discharge 02/03/2018 Cardiovascular No chest pain/pressure 02/03/2018 Cardiovascular No dyspnea 02/03/2018 Respiratory No cough 01/2018 Respiratory No dyspnea 0 02/03/2018 Neurologic No alteration of consciousness 02/03/2018 Neurologic No mental status change 02/03/2018 Constitutional No recent illness 09/17/2017 Constitutional No anorexia 09/17/2017 Constitutional No night sweats 09/17/2017 Constitutional No chills 09/17/2017 Constitutional No diaphoresis 09/17/2017 Constitutional No fatigue 09/17/2017 Constitutional No fever 09/17/2017 Constitutional No insomnia 09/17/2017 Constitutional No malaise 09/17/2017 Eyes No eye discharge Eyes No eye erythema Ears/Nose/Throat/Neck No dizziness 09/17/2017 Ears/Nose/Throat/Neck No nasal allergies 09/17/2017 Ears/Nose/Throat/Neck No nasal discharge 09/17/2017 Ears/Nose/Throat/Neck No sore throat 09/17/2017 Ears/Nose/Throat/Neck No otalgia 09/17/2017 Ears/Nose/Throat/Neck No sinus congestion 09/17/2017 Cardiovascular No chest pain/pressure 09/17/2017 Cardiovascular No dyspnea 09/17/2017 Respiratory No productive sputum 09/17/2017 Respiratory No chest congestion 09/17/2017 Respiratory No cough Gastrointestinal No abdominal pain 09/17/2017 Gastrointestinal No constipation 09/17/2017 Gastrointestinal No diarrhea 09/17/2017 Gastrointestinal No nausea 09/17/2017 Gastrointestinal No vomiting 09/17/2017 Genitourinary/Nephrology No dysuria 09/17/2017 Musculoskeletal stiffness 09/17/2017 Musculoskeletal arthralgia(s) 09/17/2017 Musculoskeletal joint complaint 09/17/2017 Dermatologic No rash Neurologic No alteration of consciousness 09/17/2017 Neurologic pain, limb Psychiatric anxiety 09/03 Constitutional No recent illness 06/23/2017 Constitutional No anorexia 06/23/2017 Constitutional No night sweats 06/23/2017 Constitutional No chills 06/23/2017 Constitutional No diaphoresis 06/23/2017 Constitutional No fatigue 06/23/2017 Constitutional No fever 06/23/2017 Constitutional No insomnia 06/23/2017 Constitutional No malaise 06/23/2017 Constitutional No weight loss 06/23/2017 Constitutional No weight gain 06/23/2017 Dermatologic rash 2016 Constitutional No recent illness 05/13/2017 Constitutional No anorexia 05/13/2017 Constitutional No night sweats 05/13/2017 Constitutional No chills 05/13/2017 Constitutional No diaphoresis 05/13/2017 Constitutional No fatigue 05/13/2017 Constitutional No fever 05/13/2017 Constitutional No insomnia 05/13/2017 Constitutional No malaise 05/13/2017 Eyes No eye discharge Eyes No eye erythema 09/2017 Ears/Nose/Throat/Neck No dizziness 05/13/2017 Ears/Nose/Throat/Neck No nasal allergies 05/13/2017 Ears/Nose/Throat/Neck No nasal discharge 05/13/2017 Ears/Nose/Throat/Neck No sore throat 05/13/2017 Ears/Nose/Throat/Neck No otalgia 05/13/2017 Ears/Nose/Throat/Neck No sinus congestion 05/13/2017 Cardiovascular No chest pain/pressure 05/13/2017 Cardiovascular No dyspnea 05/13/2017 Respiratory No productive sputum 05/13/2017 Respiratory No chest congestion 05/13/2017 Respiratory No cough 09/2017 Gastrointestinal No abdominal pain 05/13/2017 Gastrointestinal No constipation 05/13/2017 Gastrointestinal No diarrhea 05/13/2017 Gastrointestinal No nausea 05/13/2017 Gastrointestinal No vomiting 05/13/2017 Genitourinary/Nephrology No dysuria 05/13/2017 Musculoskeletal joint complaint 05/13/2017 Dermatologic No rash 09/2017 Neurologic No alteration of consciousness 05/13/2017 Neurologic pain, limb Psychiatric anxiety 05/03 Ears/Nose/Throat/Neck dental pain 05/13/2017 Musculoskeletal stiffness 05/13/2017 Musculoskeletal arthralgia(s) 05/13/2017 Constitutional No recent illness 03/21/2017 Constitutional No anorexia 03/21/2017 Constitutional No night sweats 03/21/2017 Constitutional No chills 03/21/2017 Constitutional No fever 03/21/2017 Constitutional No fatigue 03/21/2017 Constitutional No diaphoresis 03/21/2017 Constitutional No malaise 03/21/2017 Constitutional No insomnia 03/21/2017 Constitutional No weight loss 03/21/2017 Constitutional No weight gain 03/21/2017 Dermatologic rash 2016 Constitutional No recent illness 03/19/2017 Constitutional No chills 03/19/2017 Constitutional No diaphoresis 03/19/2017 Constitutional No fever 03/19/2017 Eyes No eye erythema Ears/Nose/Throat/Neck No nasal allergies 03/19/2017 Ears/Nose/Throat/Neck No nasal discharge 03/19/2017 Cardiovascular No chest pain/pressure 03/19/2017 Respiratory No cough Respiratory No dyspnea 0 03/19/2017 Dermatologic sores 03/19 Neurologic No alteration of consciousness 03/19/2017 Neurologic No mental status change 03/19/2017 Constitutional No recent illness 01/22/2017 Constitutional No chills 01/22/2017 Constitutional No diaphoresis 01/22/2017 Constitutional No fever 01/22/2017 Eyes No eye erythema Ears/Nose/Throat/Neck No nasal allergies 01/22/2017 Ears/Nose/Throat/Neck No nasal discharge 01/22/2017 Cardiovascular No chest pain/pressure 01/22/2017 Respiratory No chest congestion 01/22/2017 Respiratory No dyspnea 0 01/22/2017 Gastrointestinal No abdominal pain 01/22/2017 Gastrointestinal No constipation 01/22/2017 Gastrointestinal No diarrhea 01/22/2017 Gastrointestinal No nausea 01/22/2017 Gastrointestinal No vomiting 01/22/2017 Neurologic No alteration of consciousness 01/22/2017 Neurologic No mental status change 01/22/2017 Ears/Nose/Throat/Neck cerumen 01/22/2017 Constitutional No recent illness 01/14/2017 Constitutional No anorexia 01/14/2017 Constitutional No night sweats 01/14/2017 Constitutional No chills 01/14/2017 Constitutional No diaphoresis 01/14/2017 Constitutional No fatigue 01/14/2017 Constitutional No fever 01/14/2017 Constitutional No insomnia 01/14/2017 Constitutional No malaise 01/14/2017 Eyes No eye discharge Eyes No eye erythema Ears/Nose/Throat/Neck No dizziness 01/14/2017 Ears/Nose/Throat/Neck No nasal allergies 01/14/2017 Ears/Nose/Throat/Neck No nasal discharge 01/14/2017 Ears/Nose/Throat/Neck No otalgia 01/14/2017 Ears/Nose/Throat/Neck No sinus congestion 01/14/2017 Ears/Nose/Throat/Neck No sore throat 01/14/2017 Cardiovascular No chest pain/pressure 01/14/2017 Cardiovascular No dyspnea 01/14/2017 Respiratory No productive sputum 01/14/2017 Respiratory No chest congestion 01/14/2017 Respiratory No cough Gastrointestinal No abdominal pain 01/14/2017 Gastrointestinal No constipation 01/14/2017 Gastrointestinal No diarrhea 01/14/2017 Gastrointestinal No nausea 01/14/2017 Gastrointestinal No vomiting 01/14/2017 Genitourinary/Nephrology No dysuria 01/14/2017 Musculoskeletal No joint complaint 01/14/2017 Dermatologic No rash Neurologic No alteration of consciousness 01/14/2017 Neurologic pain, limb Psychiatric anxiety 01/01 Constitutional No recent illness 09/23/2016 Constitutional No anorexia 09/23/2016 Constitutional No night sweats 09/23/2016 Constitutional No chills 09/23/2016 Constitutional No diaphoresis 09/23/2016 Constitutional No fatigue 09/23/2016 Constitutional No fever 09/23/2016 Constitutional No insomnia 09/23/2016 Constitutional No malaise 09/23/2016 Constitutional No weight loss 09/23/2016 Constitutional No weight gain 09/23/2016 Constitutional No obesity 09/23/2016 Eyes No eye pain 016 Eyes No vision change Ears/Nose/Throat/Neck No dizziness 09/23/2016 Ears/Nose/Throat/Neck No headache 09/23/2016 Cardiovascular No dyspnea 09/23/2016 Cardiovascular No chest pain/pressure 09/23/2016 Respiratory No cough Respiratory No dyspnea 1 11/23/2015 Gastrointestinal No constipation 09/23/2016 Gastrointestinal No diarrhea 09/23/2016 Gastrointestinal No nausea 09/23/2016 Gastrointestinal No vomiting 09/23/2016 Genitourinary/Nephrology No dysuria 09/23/2016 Genitourinary/Nephrology No anuria/oliguri a 09/23/2016 Musculoskeletal No stiffness 09/23/2016 Musculoskeletal No swelling 09/23/2016 Dermatologic sores 09/23 Dermatologic No rash Neurologic No headache 1 11/23/2015 Neurologic No mental status change 09/23/2016 Psychiatric No anxiety 1 11/23/2015 Psychiatric No depression 09/23/2016 Hematologic/Lymphatic No abnormal ec chymoses 09/23/2016 Hematologic/Lymphatic No abnormal bl eeding and bruising 09/23/2016 Constitutional No recent illness 09/16/2016 Constitutional No anorexia 09/16/2016 Constitutional No night sweats 09/16/2016 Constitutional No chills 09/16/2016 Constitutional No diaphoresis 09/16/2016 Constitutional No fatigue 09/16/2016 Constitutional No fever 09/16/2016 Constitutional No insomnia 09/16/2016 Constitutional No malaise 09/16/2016 Eyes No eye discharge Eyes No eye erythema Ears/Nose/Throat/Neck No dizziness 09/16/2016 Ears/Nose/Throat/Neck No nasal allergies 09/16/2016 Ears/Nose/Throat/Neck No nasal discharge 09/16/2016 Ears/Nose/Throat/Neck No sore throat 09/16/2016 Ears/Nose/Throat/Neck No otalgia 09/16/2016 Ears/Nose/Throat/Neck No sinus congestion 09/16/2016 Cardiovascular No chest pain/pressure 09/16/2016 Cardiovascular No dyspnea 09/16/2016 Cardiovascular edema Cardiovascular fatigue 1 11/16/2015 Cardiovascular hypertension 09/16/2016 Respiratory No productive sputum 09/16/2016 Respiratory No chest congestion 09/16/2016 Respiratory No cough Gastrointestinal No abdominal pain 09/16/2016 Gastrointestinal No constipation 09/16/2016 Gastrointestinal No diarrhea 09/16/2016 Gastrointestinal No nausea 09/16/2016 Gastrointestinal No vomiting 09/16/2016 Genitourinary/Nephrology No dysuria 09/16/2016 Musculoskeletal No joint complaint 09/16/2016 Dermatologic No rash Neurologic No alteration of consciousness 09/16/2016 Neurologic pain, limb Psychiatric anxiety 09/03 Constitutional No recent illness 06/25/2016 Constitutional No anorexia 06/25/2016 Constitutional No night sweats 06/25/2016 Constitutional No chills 06/25/2016 Constitutional No diaphoresis 06/25/2016 Constitutional No fatigue 06/25/2016 Constitutional No fever 06/25/2016 Constitutional No insomnia 06/25/2016 Constitutional No weight loss 06/25/2016 Constitutional No weight gain 06/25/2016 Constitutional No malaise 06/25/2016 Eyes No eye erythema Eyes No eye discharge Ears/Nose/Throat/Neck nasal allergies 06/25/2016 Ears/Nose/Throat/Neck nasal discharge 06/25/2016 Ears/Nose/Throat/Neck No sore throat 06/25/2016 Ears/Nose/Throat/Neck sinus congestion 06/25/2016 Ears/Nose/Throat/Neck oral pain 06/25/2016 Respiratory No cough Gastrointestinal No abdominal pain 06/25/2016 Dermatologic sores 06/25 Constitutional No recent illness 06/17/2016 Constitutional No anorexia 06/17/2016 Constitutional No night sweats 06/17/2016 Constitutional No chills 06/17/2016 Constitutional No diaphoresis 06/17/2016 Constitutional No fatigue 06/17/2016 Constitutional No fever 06/17/2016 Constitutional No insomnia 06/17/2016 Constitutional No malaise 06/17/2016 Eyes No eye discharge Eyes No eye erythema Ears/Nose/Throat/Neck No dizziness 06/17/2016 Ears/Nose/Throat/Neck No nasal allergies 06/17/2016 Ears/Nose/Throat/Neck No nasal discharge 06/17/2016 Ears/Nose/Throat/Neck No sore throat 06/17/2016 Ears/Nose/Throat/Neck No otalgia 06/17/2016 Ears/Nose/Throat/Neck No sinus congestion 06/17/2016 Cardiovascular No chest pain/pressure 06/17/2016 Cardiovascular No dyspnea 06/17/2016 Respiratory No productive sputum 06/17/2016 Respiratory No chest congestion 06/17/2016 Respiratory No cough Gastrointestinal No abdominal pain 06/17/2016 Gastrointestinal No constipation 06/17/2016 Gastrointestinal No diarrhea 06/17/2016 Gastrointestinal No nausea 06/17/2016 Gastrointestinal No vomiting 06/17/2016 Genitourinary/Nephrology No dysuria 06/17/2016 Musculoskeletal No joint complaint 06/17/2016 Dermatologic No rash Neurologic No alteration of consciousness 06/17/2016 Neurologic pain, limb Psychiatric anxiety 06/03 Constitutional recent illness 04/03/2016 Constitutional No chills 04/03/2016 Constitutional No diaphoresis 04/03/2016 Constitutional No fatigue 04/03/2016 Constitutional No fever 04/03/2016 Constitutional No insomnia 04/03/2016 Constitutional No malaise 04/03/2016 Eyes No eye discharge Eyes No eye erythema 11/2015 Ears/Nose/Throat/Neck nasal allergies 04/03/2016 Ears/Nose/Throat/Neck nasal discharge 04/03/2016 Ears/Nose/Throat/Neck sore throat 04/03/2016 Ears/Nose/Throat/Neck No otalgia 04/03/2016 Ears/Nose/Throat/Neck sinus congestion 04/03/2016 Cardiovascular No chest pain/pressure 04/03/2016 Cardiovascular No dyspnea 04/03/2016 Respiratory productive sputum 04/03/2016 Respiratory chest congestion 04/03/2016 Respiratory cough 2015 Gastrointestinal No abdominal pain 04/03/2016 Gastrointestinal No constipation 04/03/2016 Gastrointestinal No diarrhea 04/03/2016 Gastrointestinal No nausea 04/03/2016 Gastrointestinal No vomiting 04/03/2016 Genitourinary/Nephrology No dysuria 04/03/2016 Musculoskeletal No joint complaint 04/03/2016 Dermatologic No rash 11/2015 Neurologic No alteration of consciousness 04/03/2016 Psychiatric anxiety 11/2015 Ears/Nose/Throat/Neck postnasal drip 04/03/2016 Neurologic No mental status change 04/03/2016 Constitutional No recent illness 03/13/2016 Constitutional No anorexia 03/13/2016 Constitutional No night sweats 03/13/2016 Constitutional No chills 03/13/2016 Constitutional No diaphoresis 03/13/2016 Constitutional No fatigue 03/13/2016 Constitutional No fever 03/13/2016 Constitutional No insomnia 03/13/2016 Constitutional No malaise 03/13/2016 Eyes No eye discharge Eyes No eye erythema 09/2016 Ears/Nose/Throat/Neck No dizziness 03/13/2016 Ears/Nose/Throat/Neck No nasal allergies 03/13/2016 Ears/Nose/Throat/Neck No nasal discharge 03/13/2016 Ears/Nose/Throat/Neck No sore throat 03/13/2016 Ears/Nose/Throat/Neck No otalgia 03/13/2016 Ears/Nose/Throat/Neck No sinus congestion 03/13/2016 Cardiovascular No chest pain/pressure 03/13/2016 Cardiovascular No dyspnea 03/13/2016 Cardiovascular edema 09/2016 Cardiovascular fatigue 0 03/13/2016 Cardiovascular hypertension 03/13/2016 Respiratory No productive sputum 03/13/2016 Respiratory No chest congestion 03/13/2016 Respiratory No cough 09/2016 Gastrointestinal No abdominal pain 03/13/2016 Gastrointestinal No constipation 03/13/2016 Gastrointestinal No diarrhea 03/13/2016 Gastrointestinal No nausea 03/13/2016 Gastrointestinal No vomiting 03/13/2016 Genitourinary/Nephrology No dysuria 03/13/2016 Musculoskeletal No joint complaint 03/13/2016 Dermatologic No rash 09/2016 Neurologic No alteration of consciousness 03/13/2016 Psychiatric anxiety 03/03 Neurologic pain, limb Constitutional No recent illness 01/30/2016 Constitutional No anorexia 01/30/2016 Constitutional No night sweats 01/30/2016 Constitutional No chills 01/30/2016 Constitutional No diaphoresis 01/30/2016 Constitutional No fatigue 01/30/2016 Constitutional No fever 01/30/2016 Constitutional No insomnia 01/30/2016 Constitutional No malaise 01/30/2016 Eyes No eye discharge Eyes No eye erythema Ears/Nose/Throat/Neck No dizziness 01/30/2016 Ears/Nose/Throat/Neck No nasal allergies 01/30/2016 Ears/Nose/Throat/Neck No nasal discharge 01/30/2016 Ears/Nose/Throat/Neck No otalgia 01/30/2016 Ears/Nose/Throat/Neck No sinus congestion 01/30/2016 Ears/Nose/Throat/Neck No sore throat 01/30/2016 Cardiovascular No chest pain/pressure 01/30/2016 Cardiovascular No dyspnea 01/30/2016 Cardiovascular edema Cardiovascular fatigue 0 01/30/2016 Cardiovascular hypertension 01/30/2016 Respiratory No productive sputum 01/30/2016 Respiratory No chest congestion 01/30/2016 Respiratory No cough Gastrointestinal No abdominal pain 01/30/2016 Gastrointestinal No constipation 01/30/2016 Gastrointestinal No diarrhea 01/30/2016 Gastrointestinal No nausea 01/30/2016 Gastrointestinal No vomiting 01/30/2016 Genitourinary/Nephrology No dysuria 01/30/2016 Musculoskeletal No joint complaint 01/30/2016 Dermatologic No rash Neurologic No alteration of consciousness 01/30/2016 Psychiatric anxiety 01/02 Constitutional No anorexia 12/21/2015 Constitutional No night sweats 12/21/2015 Constitutional No chills 12/21/2015 Constitutional No diaphoresis 12/21/2015 Constitutional No fatigue 12/21/2015 Constitutional No fever 12/21/2015 Constitutional No insomnia 12/21/2015 Constitutional No malaise 12/21/2015 Eyes No eye discharge Eyes No eye erythema Ears/Nose/Throat/Neck No dizziness 12/21/2015 Ears/Nose/Throat/Neck No nasal allergies 12/21/2015 Ears/Nose/Throat/Neck No nasal discharge 12/21/2015 Ears/Nose/Throat/Neck No otalgia 12/21/2015 Ears/Nose/Throat/Neck No sinus congestion 12/21/2015 Ears/Nose/Throat/Neck No sore throat 12/21/2015 Cardiovascular No chest pain/pressure 12/21/2015 Cardiovascular No dyspnea 12/21/2015 Cardiovascular edema Cardiovascular fatigue 0 12/21/2015 Cardiovascular hypertension 12/21/2015 Respiratory No productive sputum 12/21/2015 Respiratory No chest congestion 12/21/2015 Gastrointestinal No abdominal pain 12/21/2015 Gastrointestinal No constipation 12/21/2015 Gastrointestinal No diarrhea 12/21/2015 Genitourinary/Nephrology No dysuria 12/21/2015 Dermatologic No rash Neurologic No alteration of consciousness 12/21/2015 Psychiatric anxiety 12/04 Constitutional No recent illness 12/21/2015 Respiratory No cough Gastrointestinal No vomiting 12/21/2015 Gastrointestinal No nausea 12/21/2015 Musculoskeletal No joint complaint 12/21/2015 Constitutional recent illness 10/09/2015 Constitutional No anorexia 10/09/2015 Constitutional No night sweats 10/09/2015 Constitutional No chills 10/09/2015 Constitutional No diaphoresis 10/09/2015 Constitutional fatigue 1 12/10/2014 Constitutional No fever 10/09/2015 Constitutional No insomnia 10/09/2015 Constitutional No malaise 10/09/2015 Constitutional No weight loss 10/09/2015 Constitutional weight gain 10/09/2015 Eyes No eye discharge Eyes No eye erythema 05/2015 Ears/Nose/Throat/Neck No dizziness 10/09/2015 Ears/Nose/Throat/Neck nasal allergies 10/09/2015 Ears/Nose/Throat/Neck nasal discharge 10/09/2015 Ears/Nose/Throat/Neck No otalgia 10/09/2015 Ears/Nose/Throat/Neck No sinus congestion 10/09/2015 Ears/Nose/Throat/Neck sore throat 10/09/2015 Cardiovascular No chest pain/pressure 10/09/2015 Cardiovascular No dyspnea 10/09/2015 Cardiovascular No edema 10/09/2015 Cardiovascular fatigue 1 12/10/2014 Cardiovascular hypertension 10/09/2015 Respiratory No productive sputum 10/09/2015 Respiratory No chest congestion 10/09/2015 Respiratory cough 2014 Gastrointestinal No abdominal pain 10/09/2015 Gastrointestinal No diarrhea 10/09/2015 Gastrointestinal No constipation 10/09/2015 Genitourinary/Nephrology No dysuria 10/09/2015 Musculoskeletal joint complaint 10/09/2015 Dermatologic No rash 05/2015 Neurologic No alteration of consciousness 10/09/2015 Psychiatric anxiety 05/2015 Constitutional No recent illness 06/12/2015 Constitutional No anorexia 06/12/2015 Constitutional No night sweats 06/12/2015 Constitutional No chills 06/12/2015 Constitutional No diaphoresis 06/12/2015 Constitutional fatigue 0 06/12/2015 Constitutional No fever 06/12/2015 Constitutional No insomnia 06/12/2015 Constitutional No malaise 06/12/2015 Constitutional No weight loss 06/12/2015 Constitutional No weight gain 06/12/2015 Eyes No eye discharge Eyes No eye erythema 08/2015 Eyes No eye pain 015 Eyes No eye tearing 06/03 Eyes No eyelid pain 06/03 Eyes No vision change Eyes eyelid edema 2014 Eyes eyelid erythema 08/2015 Constitutional No recent illness 06/05/2015 Constitutional No anorexia 06/05/2015 Constitutional No night sweats 06/05/2015 Constitutional No chills 06/05/2015 Constitutional No diaphoresis 06/05/2015 Constitutional fatigue 0 06/05/2015 Constitutional No fever 06/05/2015 Constitutional No insomnia 06/05/2015 Constitutional No malaise 06/05/2015 Constitutional No weight loss 06/05/2015 Constitutional No weight gain 06/05/2015 Eyes No eye discharge Eyes No eye erythema 01/2015 Ears/Nose/Throat/Neck nasal allergies 06/05/2015 Ears/Nose/Throat/Neck nasal discharge 06/05/2015 Cardiovascular No chest pain/pressure 06/05/2015 Cardiovascular No dyspnea 06/05/2015 Respiratory No productive sputum 06/05/2015 Respiratory No chest congestion 06/05/2015 Gastrointestinal No abdominal pain 06/05/2015 Gastrointestinal No constipation 06/05/2015 Gastrointestinal No diarrhea 06/05/2015 Dermatologic No rash 01/2015 Constitutional No recent illness 05/15/2015 Constitutional No anorexia 05/15/2015 Constitutional No night sweats 05/15/2015 Constitutional No chills 05/15/2015 Constitutional No diaphoresis 05/15/2015 Constitutional fatigue 0 05/15/2015 Constitutional No fever 05/15/2015 Constitutional insomnia 05/15/2015 Constitutional No malaise 05/15/2015 Constitutional No weight loss 05/15/2015 Constitutional No weight gain 05/15/2015 Eyes No eye discharge Eyes No eye erythema Ears/Nose/Throat/Neck nasal allergies 05/15/2015 Ears/Nose/Throat/Neck nasal discharge 05/15/2015 Ears/Nose/Throat/Neck sinus congestion 05/15/2015 Cardiovascular No chest pain/pressure 05/15/2015 Cardiovascular dyspnea 0 05/15/2015 Respiratory No productive sputum 05/15/2015 Respiratory No chest congestion 05/15/2015 Respiratory No chest tightness 05/15/2015 Gastrointestinal No abdominal pain 05/15/2015 Gastrointestinal No diarrhea 05/15/2015 Gastrointestinal No constipation 05/15/2015 Genitourinary/Nephrology No dysuria 05/15/2015 Musculoskeletal No joint complaint 05/15/2015 Dermatologic No rash Dermatologic No sores Psychiatric anxiety 07/01/2015 Psychiatric depression 0 05/15/2015 Constitutional No recent illness 02/06/2015 Constitutional No anorexia 02/06/2015 Constitutional No night sweats 02/06/2015 Constitutional No chills 02/06/2015 Constitutional No diaphoresis 02/06/2015 Constitutional No fever 02/06/2015 Constitutional No insomnia 02/06/2015 Constitutional No malaise 02/06/2015 Constitutional No weight loss 02/06/2015 Constitutional No weight gain 02/06/2015 Eyes No eye discharge Eyes No eye erythema 04/2015 Cardiovascular No chest pain/pressure 02/06/2015 Cardiovascular No dyspnea 02/06/2015 Cardiovascular edema 04/2015 Respiratory No productive sputum 02/06/2015 Respiratory No chest congestion 02/06/2015 Respiratory No daytime hypersomnolence 02/06/2015 Gastrointestinal No abdominal pain 02/06/2015 Gastrointestinal No constipation 02/06/2015 Gastrointestinal No diarrhea 02/06/2015 Gastrointestinal gastroesophageal reflux 02/06/2015 Genitourinary/Nephrology No dysuria 02/06/2015 Musculoskeletal stiffness 02/06/2015 Musculoskeletal joint complaint 02/06/2015 Dermatologic No rash 04/2015 Dermatologic No sores Psychiatric No anxiety 0 02/06/2015 Psychiatric No depression 02/06/2015 Musculoskeletal myalgias 02/06/2015 Musculoskeletal muscle weakness 02/06/2015 Constitutional No recent illness 01/10/2015 Constitutional No anorexia 01/10/2015 Constitutional No night sweats 01/10/2015 Constitutional No chills 01/10/2015 Constitutional No diaphoresis 01/10/2015 Constitutional No fever 01/10/2015 Constitutional No insomnia 01/10/2015 Constitutional No malaise 01/10/2015 Constitutional No weight loss 01/10/2015 Constitutional No weight gain 01/10/2015 Eyes No eye discharge Eyes No eye erythema 08/2015 Cardiovascular No chest pain/pressure 01/10/2015 Cardiovascular No dyspnea 01/10/2015 Cardiovascular edema 08/2015 Respiratory No productive sputum 01/10/2015 Respiratory No chest congestion 01/10/2015 Respiratory No daytime hypersomnolence 01/10/2015 Gastrointestinal No abdominal pain 01/10/2015 Gastrointestinal No constipation 01/10/2015 Gastrointestinal No diarrhea 01/10/2015 Gastrointestinal gastroesophageal reflux 01/10/2015 Genitourinary/Nephrology No dysuria 01/10/2015 Musculoskeletal stiffness 01/10/2015 Musculoskeletal joint complaint 01/10/2015 Dermatologic No rash 08/2015 Dermatologic No sores Psychiatric No anxiety 0 01/10/2015 Psychiatric No depression 01/10/2015 Constitutional No recent illness 07/19/2014 Constitutional No anorexia 07/19/2014 Constitutional No night sweats 07/19/2014 Constitutional No chills 07/19/2014 Constitutional No diaphoresis 07/19/2014 Constitutional No fever 07/19/2014 Constitutional No insomnia 07/19/2014 Constitutional No malaise 07/19/2014 Constitutional No weight loss 07/19/2014 Constitutional No weight gain 07/19/2014 Eyes No eye discharge Eyes No eye erythema Cardiovascular No chest pain/pressure 07/19/2014 Cardiovascular No dyspnea 07/19/2014 Cardiovascular No edema 07/19/2014 Respiratory No productive sputum 07/19/2014 Respiratory No chest congestion 07/19/2014 Respiratory No daytime hypersomnolence 07/19/2014 Gastrointestinal No abdominal pain 07/19/2014 Gastrointestinal No constipation 07/19/2014 Gastrointestinal No diarrhea 07/19/2014 Gastrointestinal gastroesophageal reflux 07/19/2014 Genitourinary/Nephrology No dysuria 07/19/2014 Musculoskeletal joint complaint 07/19/2014 Dermatologic No rash Dermatologic No sores Psychiatric No anxiety 0 07/19/2014 Psychiatric No depression 07/19/2014 Musculoskeletal stiffness 07/19/2014 Constitutional No recent illness 06/17/2014 Constitutional No anorexia 06/17/2014 Constitutional No night sweats 06/17/2014 Constitutional No diaphoresis 06/17/2014 Constitutional No chills 06/17/2014 Constitutional fatigue 0 06/17/2014 Constitutional No fever 06/17/2014 Constitutional No insomnia 06/17/2014 Constitutional No malaise 06/17/2014 Eyes No eye discharge Eyes No eye erythema Ears/Nose/Throat/Neck dizziness 06/17/2014 Ears/Nose/Throat/Neck headache 06/17/2014 Ears/Nose/Throat/Neck nasal discharge 06/17/2014 Ears/Nose/Throat/Neck nasal allergies 06/17/2014 Respiratory cough 2013 Gastrointestinal No vomiting 06/17/2014 Gastrointestinal No nausea 06/17/2014 Gastrointestinal No diarrhea 06/17/2014 Respiratory No productive sputum 06/17/2014 Respiratory No chest congestion 06/17/2014 Genitourinary/Nephrology No dysuria 06/17/2014 Constitutional No recent illness 04/19/2014 Constitutional No anorexia 04/19/2014 Constitutional No night sweats 04/19/2014 Constitutional No chills 04/19/2014 Constitutional No diaphoresis 04/19/2014 Constitutional fatigue 0 04/19/2014 Constitutional No fever 04/19/2014 Constitutional No insomnia 04/19/2014 Constitutional No weight loss 04/19/2014 Constitutional No weight gain 04/19/2014 Constitutional No malaise 04/19/2014 Constitutional No recent illness 04/11/2014 Constitutional No anorexia 04/11/2014 Constitutional No night sweats 04/11/2014 Constitutional No chills 04/11/2014 Constitutional No diaphoresis 04/11/2014 Constitutional fatigue 0 04/11/2014 Constitutional No fever 04/11/2014 Constitutional No insomnia 04/11/2014 Eyes No eye discharge Eyes No eye erythema 07/2014 Cardiovascular No chest pain/pressure 04/11/2014 Cardiovascular No dyspnea 04/11/2014 Cardiovascular No edema 04/11/2014 Respiratory No productive sputum 04/11/2014 Respiratory No chest congestion 04/11/2014 Respiratory No daytime hypersomnolence 04/11/2014 Gastrointestinal No abdominal pain 04/11/2014 Gastrointestinal No constipation 04/11/2014 Gastrointestinal No diarrhea 04/11/2014 Genitourinary/Nephrology No dysuria 04/11/2014 Musculoskeletal No joint complaint 04/11/2014 Dermatologic No rash 07/2014 Dermatologic No sores Psychiatric No anxiety 0 04/11/2014 Psychiatric No depression 04/11/2014 Gastrointestinal dyspepsia 04/11/2014 Gastrointestinal gastroesophageal reflux 04/11/2014 Constitutional No recent illness 03/10/2014 Constitutional No anorexia 03/10/2014 Constitutional No night sweats 03/10/2014 Constitutional No chills 03/10/2014 Constitutional No diaphoresis 03/10/2014 Constitutional fatigue 0 03/10/2014 Constitutional No fever 03/10/2014 Constitutional No insomnia 03/10/2014 Constitutional malaise 0 03/10/2014 Psychiatric depression 0 03/10/2014 Cardiovascular No chest pain/pressure 03/10/2014 Cardiovascular No dyspnea 03/10/2014 Cardiovascular fatigue 0 03/10/2014 Cardiovascular hypertension 03/10/2014 Cardiovascular No near-syncope/dizziness 03/10/2014 Respiratory No productive sputum 03/10/2014 Respiratory No chest congestion 03/10/2014 Respiratory No cough 06/2014 Ears/Nose/Throat/Neck No dizziness 03/10/2014 Ears/Nose/Throat/Neck No headache 03/10/2014 Ears/Nose/Throat/Neck No nasal discharge 03/10/2014 Eyes No eye discharge Eyes No eye erythema 06/2014 Eyes No vision change Gastrointestinal No constipation 03/10/2014 Gastrointestinal No diarrhea 03/10/2014 Genitourinary/Nephrology No dysuria 03/10/2014 Musculoskeletal No joint complaint 03/10/2014 Gastrointestinal gastroesophageal reflux 03/10/2014 Dermatologic No rash 06/2014 Dermatologic No sores Constitutional No recent illness 02/02/2014 Constitutional No anorexia 02/02/2014 Constitutional No diaphoresis 02/02/2014 Constitutional fatigue 0 02/02/2014 Constitutional No chills 02/02/2014 Constitutional No night sweats 02/02/2014 Constitutional No fever 02/02/2014 Constitutional No insomnia 02/02/2014 Eyes No eye discharge Eyes No eye erythema 12/2013 Respiratory No productive sputum 02/02/2014 Respiratory No chest congestion 02/02/2014 Respiratory No daytime hypersomnolence 02/02/2014 Gastrointestinal No abdominal pain 02/02/2014 Gastrointestinal No constipation 02/02/2014 Gastrointestinal No diarrhea 02/02/2014 Cardiovascular No chest pain/pressure 02/02/2014 Cardiovascular No dyspnea 02/02/2014 Cardiovascular No edema 02/02/2014 Genitourinary/Nephrology No dysuria 02/02/2014 Musculoskeletal No joint complaint 02/02/2014 Dermatologic No sores Dermatologic No rash 12/2013 Constitutional fatigue 1 12/26/2012 Eyes No blindness 2012 Eyes No vision change Ears/Nose/Throat/Neck No dental pain 10/25/2013 Ears/Nose/Throat/Neck No dizziness 10/25/2013 Ears/Nose/Throat/Neck No dysphagia 10/25/2013 Ears/Nose/Throat/Neck No headache 10/25/2013 Ears/Nose/Throat/Neck No hearing loss 10/25/2013 Ears/Nose/Throat/Neck No nasal allergies 10/25/2013 Ears/Nose/Throat/Neck No sore throat 10/25/2013 Ears/Nose/Throat/Neck No postnasal drip 10/25/2013 Ears/Nose/Throat/Neck No sinus congestion 10/25/2013 Cardiovascular No chest pain/pressure 10/25/2013 Cardiovascular No dyspnea 10/25/2013 Cardiovascular No edema 10/25/2013 Cardiovascular No palpitations 10/25/2013 Respiratory No cough Gastrointestinal No abdominal pain 10/25/2013 Neurologic No dizziness 10/25/2013 Dermatologic sores 10/25 Constitutional fatigue 1 Cardiovascular No chest pain/pressure 08/24/2013 Cardiovascular No dyspnea 08/24/2013 Cardiovascular No edema 08/24/2013 Cardiovascular No palpitations 08/24/2013 Respiratory No cough Gastrointestinal No abdominal pain 08/24/2013 Neurologic No dizziness 08/24/2013 Constitutional fatigue 0 07/26/2013 Cardiovascular No chest pain/pressure 07/26/2013 Cardiovascular No dyspnea 07/26/2013 Cardiovascular No edema 07/26/2013 Cardiovascular No palpitations 07/26/2013 Respiratory No cough Gastrointestinal No abdominal pain 07/26/2013 Neurologic No dizziness 07/26/2013 Eyes No blindness 2012 Eyes No vision change Ears/Nose/Throat/Neck No dental pain 07/26/2013 Ears/Nose/Throat/Neck No dizziness 07/26/2013 Ears/Nose/Throat/Neck No dysphagia 07/26/2013 Ears/Nose/Throat/Neck No headache 07/26/2013 Ears/Nose/Throat/Neck No hearing loss 07/26/2013 Ears/Nose/Throat/Neck No nasal allergies 07/26/2013 Ears/Nose/Throat/Neck No sore throat 07/26/2013 Ears/Nose/Throat/Neck No postnasal drip 07/26/2013 Ears/Nose/Throat/Neck No sinus congestion 07/26/2013 Constitutional No recent illness 06/30/2013 Constitutional No chills 06/30/2013 Constitutional No fatigue 06/30/2013 Constitutional No fever 06/30/2013 Constitutional No insomnia 06/30/2013 Constitutional No malaise 06/30/2013 Respiratory No chest tightness 06/30/2013 Respiratory No cigarette smoking 06/30/2013 Respiratory No cough Respiratory No dyspnea 0 06/30/2013 Respiratory No pedal edema 06/30/2013 Respiratory No snoring 0 06/30/2013 Respiratory No wheezing 06/30/2013 Gastrointestinal No abdominal pain 06/30/2013 Gastrointestinal No constipation 06/30/2013 Gastrointestinal No diarrhea 06/30/2013 Gastrointestinal No gastroesophageal reflu x 06/30/2013 Psychiatric No anxiety 0 06/30/2013 Psychiatric No depression 06/30/2013 Eyes No blindness 2012 Eyes No vision change Ears/Nose/Throat/Neck No dysphagia 06/30/2013 Ears/Nose/Throat/Neck No headache 06/30/2013 Ears/Nose/Throat/Neck No hearing loss 06/30/2013 Ears/Nose/Throat/Neck No nasal allergies 06/30/2013 Ears/Nose/Throat/Neck No sore throat 06/30/2013 Ears/Nose/Throat/Neck No postnasal drip 06/30/2013 Ears/Nose/Throat/Neck No sinus congestion 06/30/2013 Musculoskeletal No stiffness 06/30/2013 Musculoskeletal No swelling 06/30/2013 Musculoskeletal No muscle weakness 06/30/2013 Musculoskeletal No myalgias 06/30/2013 Dermatologic No rash Dermatologic No scar Constitutional fatigue 0 06/24/2013 Constitutional No chills 06/24/2013 Constitutional No fever 06/24/2013 Constitutional No insomnia 06/24/2013 Eyes No eye discharge Ears/Nose/Throat/Neck headache 06/24/2013 Ears/Nose/Throat/Neck hoarseness 06/24/2013 Ears/Nose/Throat/Neck No nasal discharge 06/24/2013 Ears/Nose/Throat/Neck No nasal allergies 06/24/2013 Ears/Nose/Throat/Neck No otalgia 06/24/2013 Ears/Nose/Throat/Neck sinus congestion 06/24/2013 Ears/Nose/Throat/Neck postnasal drip 06/24/2013 Cardiovascular No chest pain/pressure 06/24/2013 Cardiovascular No near-syncope/dizziness 06/24/2013 Cardiovascular No orthopnea 06/24/2013 Cardiovascular No palpitations 06/24/2013 Cardiovascular No fatigue 06/24/2013 Respiratory No cough Gastrointestinal No abdominal pain 06/24/2013 Gastrointestinal No constipation 06/24/2013 Gastrointestinal diarrhea 06/24/2013 Gastrointestinal No nausea 06/24/2013 Gastrointestinal No vomiting 06/24/2013 Genitourinary/Nephrology No dysuria 06/24/2013 Genitourinary/Nephrology urinary frequency 06/24/2013 Musculoskeletal No muscle weakness 06/24/2013 Musculoskeletal No joint complaint 06/24/2013 Musculoskeletal No back pain 06/24/2013 Dermatologic No rash Dermatologic No sores Constitutional No recent illness 12/01/2012 Constitutional No anorexia 12/01/2012 Constitutional No night sweats 12/01/2012 Constitutional No chills 12/01/2012 Constitutional No diaphoresis 12/01/2012 Constitutional No fatigue 12/01/2012 Constitutional No fever 12/01/2012 Constitutional No insomnia 12/01/2012 Eyes No eye discharge Eyes No eye erythema Ears/Nose/Throat/Neck No dizziness 12/01/2012 Ears/Nose/Throat/Neck No headache 12/01/2012 Respiratory No productive sputum 12/01/2012 Respiratory No cough Respiratory No dyspnea 0 12/01/2012 Gastrointestinal No abdominal pain 12/01/2012 Gastrointestinal No constipation 12/01/2012 Gastrointestinal No diarrhea 12/01/2012 Gastrointestinal No nausea 12/01/2012 Gastrointestinal No vomiting 12/01/2012 Genitourinary/Nephrology No dysuria 12/01/2012 Dermatologic No rash Dermatologic No sores Constitutional No recent illness 10/19/2012 Constitutional No chills 10/19/2012 Constitutional No fatigue 10/19/2012 Constitutional No fever 10/19/2012 Constitutional No insomnia 10/19/2012 Constitutional No malaise 10/19/2012 Cardiovascular No chest pain/pressure 10/19/2012 Cardiovascular No dyspnea 10/19/2012 Cardiovascular No edema 10/19/2012 Cardiovascular No exercise intolerance 10/19/2012 Cardiovascular No fatigue 10/19/2012 Cardiovascular No near-syncope/dizziness 10/19/2012 Respiratory No chest tightness 10/19/2012 Respiratory No cigarette smoking 10/19/2012 Respiratory No cough Respiratory No dyspnea 1 12/20/2011 Respiratory No pedal edema 10/19/2012 Respiratory No snoring 1 12/20/2011 Respiratory No wheezing 10/19/2012 Musculoskeletal No stiffness 10/19/2012 Musculoskeletal No swelling 10/19/2012 Musculoskeletal muscle weakness 10/19/2012 Musculoskeletal No myalgias 10/19/2012 Musculoskeletal arthralgia(s) 10/19/2012 Musculoskeletal joint complaint 10/19/2012 Constitutional No recent illness 10/07/2012 Constitutional No anorexia 10/07/2012 Constitutional No night sweats 10/07/2012 Constitutional No chills 10/07/2012 Constitutional No diaphoresis 10/07/2012 Constitutional No fatigue 10/07/2012 Constitutional No fever 10/07/2012 Constitutional No insomnia 10/07/2012 Ears/Nose/Throat/Neck No dizziness 10/07/2012 Ears/Nose/Throat/Neck No headache 10/07/2012 Eyes No eye discharge Eyes No eye erythema 03/2012 Respiratory No productive sputum 10/07/2012 Respiratory No cough 03/2012 Respiratory No dyspnea 1 12/08/2011 Gastrointestinal No abdominal pain 10/07/2012 Gastrointestinal No nausea 10/07/2012 Gastrointestinal No vomiting 10/07/2012 Gastrointestinal No constipation 10/07/2012 Gastrointestinal No diarrhea 10/07/2012 Genitourinary/Nephrology No dysuria 10/07/2012 Musculoskeletal No joint complaint 10/07/2012 Dermatologic No sores Dermatologic No rash 03/2012 Constitutional No recent illness 2012 Constitutional No chills 2012 Constitutional No fatigue 2012 Constitutional No fever 2012 Constitutional No insomnia 2012 Respiratory No chest tightness 2012 Respiratory No cigarette smoking 2012 Respiratory No cough Respiratory No pedal edema 2012 Gastrointestinal No hemorrhoids 2012 Gastrointestinal No abdominal pain 2012 Gastrointestinal No constipation 2012 Gastrointestinal No diarrhea 2012 Gastrointestinal No gastroesophageal reflu x 2012 Musculoskeletal No stiffness 2012 Musculoskeletal No swelling 2012 Musculoskeletal arthralgia(s) 2012 Musculoskeletal No muscle weakness 2012 Musculoskeletal No myalgias 2012 Neurologic No dizziness 2012 Neurologic No headache 1 11/29/2011 Neurologic No neck pain 2012 Neurologic No syncope Psychiatric No anxiety 1 11/29/2011 Psychiatric No depression 2012 Ears/Nose/Throat/Neck No dental pain 2012 Ears/Nose/Throat/Neck No dizziness 2012 Ears/Nose/Throat/Neck No dysphagia 2012 Ears/Nose/Throat/Neck No headache 2012 Ears/Nose/Throat/Neck No hearing loss 2012 Ears/Nose/Throat/Neck No nasal allergies 2012 Ears/Nose/Throat/Neck No sore throat 2012 Ears/Nose/Throat/Neck No postnasal drip 2012 Ears/Nose/Throat/Neck No sinus congestion 2012 Constitutional No recent illness 08/18/2012 Constitutional No chills 08/18/2012 Constitutional No fatigue 08/18/2012 Constitutional No fever 08/18/2012 Constitutional No insomnia 08/18/2012 Constitutional No malaise 08/18/2012 Respiratory No chest tightness 08/18/2012 Respiratory No cigarette smoking 08/18/2012 Respiratory No cough Respiratory No dyspnea 1 Respiratory No pedal edema 08/18/2012 Respiratory No snoring 1 Respiratory No wheezing 08/18/2012 Gastrointestinal No hemorrhoids 08/18/2012 Gastrointestinal No abdominal pain 08/18/2012 Gastrointestinal No constipation 08/18/2012 Gastrointestinal No diarrhea 08/18/2012 Gastrointestinal No gastroesophageal reflu x 08/18/2012 Gastrointestinal No melena 08/18/2012 Gastrointestinal No nausea 08/18/2012 Gastrointestinal No vomiting 08/18/2012 Psychiatric No anxiety 1 Psychiatric No depression 08/18/2012 Neurologic No dizziness 08/18/2012 Neurologic No headache 1 Neurologic No neck pain 08/18/2012 Neurologic No syncope Constitutional No recent illness 08/04/2012 Constitutional No chills 08/04/2012 Constitutional No fatigue 08/04/2012 Constitutional No fever 08/04/2012 Constitutional No insomnia 08/04/2012 Respiratory No chest tightness 08/04/2012 Respiratory No cigarette smoking 08/04/2012 Respiratory No cough 12/2011 Respiratory No pedal edema 08/04/2012 Gastrointestinal No hemorrhoids 08/04/2012 Gastrointestinal No abdominal pain 08/04/2012 Gastrointestinal No constipation 08/04/2012 Gastrointestinal No diarrhea 08/04/2012 Gastrointestinal No gastroesophageal reflu x 08/04/2012 Neurologic No dizziness 08/04/2012 Neurologic No headache 1 Neurologic No neck pain 08/04/2012 Neurologic No syncope Psychiatric No anxiety 1 Psychiatric No depression 08/04/2012 Musculoskeletal No stiffness 08/04/2012 Musculoskeletal No swelling 08/04/2012 Musculoskeletal No muscle weakness 08/04/2012 Musculoskeletal No myalgias 08/04/2012 Musculoskeletal arthralgia(s) 08/04/2012 Constitutional No recent illness 07/01/2012 Constitutional No anorexia 07/01/2012 Constitutional No night sweats 07/01/2012 Constitutional No chills 07/01/2012 Constitutional No diaphoresis 07/01/2012 Constitutional No fatigue 07/01/2012 Constitutional No fever 07/01/2012 Constitutional No insomnia 07/01/2012 Constitutional No malaise 07/01/2012 Musculoskeletal back pain 07/01/2012 Genitourinary/Nephrology No dysuria 07/01/2012 Gastrointestinal No vomiting 07/01/2012 Gastrointestinal No nausea 07/01/2012 Gastrointestinal No abdominal pain 07/01/2012 Gastrointestinal No constipation 07/01/2012 Gastrointestinal No diarrhea 07/01/2012 Respiratory No productive sputum 07/01/2012 Respiratory No chest congestion 07/01/2012 Respiratory No cough Ears/Nose/Throat/Neck No dizziness 07/01/2012 Ears/Nose/Throat/Neck headache 07/01/2012 Ears/Nose/Throat/Neck nasal allergies 07/01/2012 Ears/Nose/Throat/Neck No otalgia 07/01/2012 Ears/Nose/Throat/Neck No sore throat 07/01/2012 Eyes No eye discharge Eyes No eye erythema Dermatologic No rash Dermatologic No acne rosacea 07/01/2012 Neurologic No alteration of consciousness 07/01/2012 Constitutional No recent illness 05/20/2012 Constitutional No chills 05/20/2012 Constitutional No fatigue 05/20/2012 Constitutional No fever 05/20/2012 Eyes No vision change Ears/Nose/Throat/Neck No dizziness 05/20/2012 Respiratory No chest congestion 05/20/2012 Respiratory No chest tightness 05/20/2012 Respiratory No cough Gastrointestinal No abdominal pain 05/20/2012 Gastrointestinal No constipation 05/20/2012 Gastrointestinal No diarrhea 05/20/2012 Musculoskeletal No stiffness 05/20/2012 Musculoskeletal No arthralgia(s) 05/20/2012 Dermatologic No rash Neurologic No dizziness 05/20/2012 Psychiatric No anxiety 0 05/20/2012 Psychiatric No depression 05/20/2012 Constitutional No recent illness 04/20/2012 Constitutional No chills 04/20/2012 Constitutional No fatigue 04/20/2012 Constitutional No fever 04/20/2012 Eyes No vision change Respiratory No chest congestion 04/20/2012 Respiratory No chest tightness 04/20/2012 Respiratory No cough Gastrointestinal No abdominal pain 04/20/2012 Gastrointestinal No constipation 04/20/2012 Gastrointestinal No diarrhea 04/20/2012 Dermatologic No rash Neurologic No dizziness 04/20/2012 Musculoskeletal No stiffness 04/20/2012 Musculoskeletal No arthralgia(s) 04/20/2012 Ears/Nose/Throat/Neck No dizziness 04/20/2012 Psychiatric No anxiety 0 04/20/2012 Psychiatric No depression 04/20/2012 Constitutional No recent illness 03/10/2012 Constitutional No chills 03/10/2012 Constitutional No fatigue 03/10/2012 Constitutional No fever 03/10/2012 Respiratory No chest congestion 03/10/2012 Respiratory No chest tightness 03/10/2012 Respiratory No cough 06/2012 Gastrointestinal No abdominal pain 03/10/2012 Gastrointestinal No constipation 03/10/2012 Gastrointestinal No diarrhea 03/10/2012 Dermatologic No rash 06/2012 Neurologic No dizziness 03/10/2012 Eyes No vision change Musculoskeletal back pain 03/10/2012 Musculoskeletal stiffness 03/10/2012 Neurologic neck pain 06/2012 Constitutional No recent illness 02/25/2012 Constitutional No chills 02/25/2012 Constitutional No fatigue 02/25/2012 Constitutional No fever 02/25/2012 Respiratory No chest congestion 02/25/2012 Respiratory No chest tightness 02/25/2012 Respiratory No cough Gastrointestinal No abdominal pain 02/25/2012 Gastrointestinal No constipation 02/25/2012 Gastrointestinal No diarrhea 02/25/2012 Dermatologic No rash Neurologic No dizziness 02/25/2012 Constitutional No recent illness 02/19/2012 Constitutional No chills 02/19/2012 Constitutional No fatigue 02/19/2012 Constitutional No fever 02/19/2012 Respiratory No chest congestion 02/19/2012 Respiratory No chest tightness 02/19/2012 Respiratory No cough Gastrointestinal No abdominal pain 02/19/2012 Gastrointestinal No constipation 02/19/2012 Gastrointestinal No diarrhea 02/19/2012 Dermatologic No rash Neurologic No dizziness 02/19/2012 Eyes No eye discharge Eyes No eye erythema Ears/Nose/Throat/Neck nasal discharge 01/23/2012 Ears/Nose/Throat/Neck nasal allergies 01/23/2012 Ears/Nose/Throat/Neck No otitis media 01/23/2012 Ears/Nose/Throat/Neck No sinus congestion 01/23/2012 Ears/Nose/Throat/Neck No sore throat 01/23/2012 Cardiovascular No chest pain/pressure 01/23/2012 Respiratory productive sputum 01/23/2012 Respiratory chest congestion 01/23/2012 Respiratory cough 2011 Respiratory No dyspnea 0 01/23/2012 Gastrointestinal No vomiting 01/23/2012 Gastrointestinal No nausea 01/23/2012 Gastrointestinal No abdominal pain 01/23/2012 Gastrointestinal No constipation 01/23/2012 Gastrointestinal No diarrhea 01/23/2012 Genitourinary/Nephrology No dysuria 01/23/2012 Dermatologic No rash Constitutional recent illness 01/23/2012 Constitutional No night sweats 01/23/2012 Constitutional No chills 01/23/2012 Constitutional No diaphoresis 01/23/2012 Constitutional No fatigue 01/23/2012 Constitutional No fever 01/23/2012 Constitutional No recent illness 01/02/2012 Constitutional No chills 01/02/2012 Constitutional No fatigue 01/02/2012 Constitutional No fever 01/02/2012 Eyes No vision change Respiratory No chest congestion 01/02/2012 Respiratory No chest tightness 01/02/2012 Respiratory No cough 11/2011 Gastrointestinal No abdominal pain 01/02/2012 Gastrointestinal No constipation 01/02/2012 Gastrointestinal No diarrhea 01/02/2012 Musculoskeletal stiffness 01/02/2012 Musculoskeletal arthralgia(s) 01/02/2012 Musculoskeletal back pain 01/02/2012 Musculoskeletal muscle weakness 01/02/2012 Musculoskeletal neck pain 01/02/2012 Dermatologic No rash 11/2011 Neurologic No dizziness 01/02/2012 Neurologic headache 03/0 11/2011 Neurologic neck pain 11/2011 Neurologic paresthesia 0 01/02/2012 Constitutional No recent illness 12/20/2011 Constitutional No chills 12/20/2011 Constitutional No fatigue 12/20/2011 Constitutional No fever 12/20/2011 Eyes No vision change Ears/Nose/Throat/Neck cerumen 12/20/2011 Endocrine sweating 12/20 Ears/Nose/Throat/Neck No dizziness 12/20/2011 Ears/Nose/Throat/Neck headache 12/20/2011 Ears/Nose/Throat/Neck hearing loss 12/20/2011 Respiratory No cough Respiratory No chest congestion 12/20/2011 Respiratory No chest tightness 12/20/2011 Gastrointestinal No abdominal pain 12/20/2011 Gastrointestinal No constipation 12/20/2011 Gastrointestinal No diarrhea 12/20/2011 Genitourinary/Nephrology No urinary urgenc y 12/20/2011 Genitourinary/Nephrology No urinary incontinence 12/20/2011 Genitourinary/Nephrology No urinary retention/hesitancy 12/20/2011 Musculoskeletal stiffness 12/20/2011 Musculoskeletal arthralgia(s) 12/20/2011 Musculoskeletal back pain 12/20/2011 Musculoskeletal muscle weakness 12/20/2011 Musculoskeletal neck pain 12/20/2011 Dermatologic No rash Neurologic No dizziness 12/20/2011 Neurologic headache 12/04 Neurologic neck pain Neurologic paresthesia 0 12/20/2011 Psychiatric No anxiety 0 12/20/2011 Psychiatric No depression 12/20/2011 Physical Exam Exam Name System Name It em Name Status Result Effective Dates Notes Full Exam - General 1994 Constitutional general appearance Overall: well developed 06/14/2019 None Full Exam - General 1994 Constitutional general appearance Overall: in no acute distress 06/14/2019 None Full Exam - General 1994 Constitutional general appearance Overall: well nourished 06/14/2019 None Full Exam - General 1994 Eyes conjunctiva/eyelids Overall: conjunctiva clear 06/14/2019 None Full Exam - General 1994 Eyes conjunctiva/eyelids Overall: cornea clear 06/14/2019 None Full Exam - General 1994 Eyes conjunctiva/eyelids Overall: eyelids normal 06/14/2019 None Full Exam - General 1994 Eyes pupils and irises Overall: pupils equal, round, reactive to light and accomodation 06/14/2019 None Full Exam - General 1994 Ears/Nose/Throat otoscopic exam Overall: external auditory canals clear 06/14/2019 None Full Exam - General 1994 Ears/Nose/Throat otoscopic exam Overall: tympanic membranes clear 06/14/2019 None Full Exam - General 1994 Ears/Nose/Throat lips/teeth/gingiva Overall: benign lips 06/14/2019 None Full Exam - General 1994 Ears/Nose/Throat lips/teeth/gingiva Overall: normal dentition 06/14/2019 None Full Exam - General 1994 Ears/Nose/Throat oral cavity/pharynx/larynx Overall: oral mucosa clear 06/14/2019 except for small ulcer on left lateral tongue Full Exam - General 1994 Respiratory auscultation Overall: breath sounds clear bilaterally 06/14/2019 None Full Exam - General 1994 Respiratory respiratory effort/rhythm Overall: no retractions 06/14/2019 None Full Exam - General 1994 Respiratory respiratory effort/rhythm Overall: normal rate 06/14/2019 None Full Exam - General 1994 Cardiovascular extremities Overall: no clubbing 06/14/2019 None Full Exam - General 1994 Cardiovascular auscultation of heart Overall: regular rate 06/14/2019 None Full Exam - General 1994 Cardiovascular auscultation of heart Overall: normal heart sounds 06/14/2019 None Full Exam - General 1994 Cardiovascular auscultation of heart Overall: no murmurs 06/14/2019 None Full Exam - General 1994 Musculoskeletal digits and nails First CMC: swelling 06/14/2019 None Full Exam - General 1994 Musculoskeletal digits and nails DIPs: swelling 06/14/2019 None Full Exam - General 1994 Musculoskeletal digits and nails PIPs: swelling 06/14/2019 None Full Exam - General 1994 Musculoskeletal digits and nails PIPs: deformity 06/14/2019 None Full Exam - General 1994 Musculoskeletal digits and nails PIPs: bony enlargement 06/14/2019 None Full Exam - General 1994 Musculoskeletal digits and nails MCPs: swelling 06/14/2019 None Full Exam - General 1994 Neurologic cranial nerves Overall: crainial nerves 2 - 12 grossly intact 06/14/2019 None Full Exam - General 1994 Psychiatric orientation/consciousness Overall: oriented to person, place and time 06/14/2019 None Full Exam - General 1994 Psychiatric mood and affect Overall: normal mood and affect 06/14/2019 None Full Exam - General 1994 Psychiatric appearance Overall: well-groomed, good eye contact 06/14/2019 None Full Exam - General 1994 Abdomen abdominal exam Overall: no tenderness 06/14/2019 None Full Exam - General 1994 Constitutional general appearance Overall: well developed 05/11/2019 None Full Exam - General 1994 Constitutional general appearance Overall: in no acute distress 05/11/2019 None Full Exam - General 1994 Constitutional general appearance Overall: well nourished 05/11/2019 None Full Exam - General 1994 Eyes conjunctiva/eyelids Overall: conjunctiva clear 05/11/2019 None Full Exam - General 1994 Eyes conjunctiva/eyelids Overall: cornea clear 05/11/2019 None Full Exam - General 1994 Eyes conjunctiva/eyelids Overall: eyelids normal 05/11/2019 None Full Exam - General 1994 Ears/Nose/Throat otoscopic exam Overall: external auditory canals clear 05/11/2019 None Full Exam - General 1994 Ears/Nose/Throat otoscopic exam Tympanic membrane: air-fluid level 05/11/2019 None Full Exam - General 1994 Ears/Nose/Throat internal nose Drainage: clear 05/11/2019 None Full Exam - General 1995 Ears/Nose/Throat lips/teeth/gingiva Overall: benign lips 05/11/2019 None Full Exam - General 1995 Ears/Nose/Throat lips/teeth/gingiva Overall: normal dentition 05/11/2019 None Full Exam - General 1994 Ears/Nose/Throat oral cavity/pharynx/larynx Overall: oral mucosa clear 05/11/2019 None Full Exam - General 1995 Ears/Nose/Throat oral cavity/pharynx/larynx Posterior Pharynx: clear post nasal drainage 05/11/2019 None Full Exam - General 1995 Ears/Nose/Throat oral cavity/pharynx/larynx Oropharynx: erythema 05/11/2019 None Full Exam - General 1994 Respiratory auscultation Overall: breath sounds clear bilaterally 05/11/2019 None Full Exam - General 1994 Respiratory respiratory effort/rhythm Overall: no retractions 05/11/2019 None Full Exam - General 1994 Respiratory respiratory effort/rhythm Overall: normal rate 05/11/2019 None Full Exam - General 1994 Cardiovascular auscultation of heart Overall: regular rate 05/11/2019 None Full Exam - General 1994 Cardiovascular auscultation of heart Overall: normal heart sounds 05/11/2019 None Full Exam - General 1994 Abdomen abdominal exam Overall: no tenderness 05/11/2019 None Full Exam - General 1994 Abdomen abdominal exam Overall: normal bowel sounds 05/11/2019 None Full Exam - Cardiology Lymphatic neck nodes Overall: anterior cervical chain talha ign 05/11/2019 None Full Exam - Cardiology Lymphatic neck nodes Overall: posterior cervical chain be nign 05/11/2019 None Full Exam - General 1994 Integument inspection of skin Overall: no rash, lesions 05/11/2019 None Full Exam - General 1994 Neurologic cranial nerves Overall: crainial nerves 2 - 12 grossly intact 05/11/2019 None Full Exam - General 1994 Psychiatric orientation/consciousness Overall: oriented to person, place and time 05/11/2019 None Full Exam - General 1994 Constitutional general appearance Overall: well developed 02/16/2019 None Full Exam - General 1994 Constitutional general appearance Overall: in no acute distress 02/16/2019 None Full Exam - General 1994 Constitutional general appearance Overall: well nourished 02/16/2019 None Full Exam - General 1994 Eyes conjunctiva/eyelids Overall: conjunctiva clear 02/16/2019 None Full Exam - General 1994 Eyes conjunctiva/eyelids Overall: cornea clear 02/16/2019 None Full Exam - General 1994 Eyes conjunctiva/eyelids Overall: eyelids normal 02/16/2019 None Full Exam - General 1994 Eyes pupils and irises Overall: pupils equal, round, reactive to light and accomodation 02/16/2019 None Full Exam - General 1994 Ears/Nose/Throat lips/teeth/gingiva Overall: benign lips 02/16/2019 None Full Exam - General 1994 Ears/Nose/Throat lips/teeth/gingiva Overall: normal dentition 02/16/2019 None Full Exam - General 1994 Respiratory auscultation Overall: breath sounds clear bilaterally 02/16/2019 None Full Exam - General 1994 Respiratory respiratory effort/rhythm Overall: no retractions 02/16/2019 None Full Exam - General 1994 Respiratory respiratory effort/rhythm Overall: normal rate 02/16/2019 None Full Exam - General 1994 Cardiovascular extremities Overall: no clubbing 02/16/2019 None Full Exam - General 1994 Cardiovascular auscultation of heart Overall: regular rate 02/16/2019 None Full Exam - General 1994 Cardiovascular auscultation of heart Overall: normal heart sounds 02/16/2019 None Full Exam - General 1994 Cardiovascular auscultation of heart Overall: no murmurs 02/16/2019 None Full Exam - General 1994 Musculoskeletal digits and nails First CMC: swelling 02/16/2019 None Full Exam - General 1994 Musculoskeletal digits and nails DIPs: swelling 02/16/2019 None Full Exam - General 1994 Musculoskeletal digits and nails PIPs: swelling 02/16/2019 None Full Exam - General 1994 Musculoskeletal digits and nails PIPs: deformity 02/16/2019 None Full Exam - General 1994 Musculoskeletal digits and nails PIPs: bony enlargement 02/16/2019 None Full Exam - General 1994 Musculoskeletal digits and nails MCPs: swelling 02/16/2019 None Full Exam - General 1994 Neurologic cranial nerves Overall: crainial nerves 2 - 12 grossly intact 02/16/2019 None Full Exam - General 1994 Psychiatric orientation/consciousness Overall: oriented to person, place and time 02/16/2019 None Full Exam - General 1994 Psychiatric mood and affect Overall: normal mood and affect 02/16/2019 None Full Exam - General 1994 Psychiatric appearance Overall: well-groomed, good eye contact 02/16/2019 None Full Exam - General 1994 Ears/Nose/Throat otoscopic exam Overall: tympanic membranes clear 02/16/2019 None Full Exam - General 1995 Ears/Nose/Throat otoscopic exam Overall: external auditory canals clear 02/16/2019 None Full Exam - General 1994 Ears/Nose/Throat oral cavity/pharynx/larynx Overall: oral mucosa clear 02/16/2019 except for small ulcer on left lateral tongue Full Exam - General 1994 Constitutional general appearance Overall: well developed 01/21/2019 None Full Exam - General 1994 Constitutional general appearance Overall: in no acute distress 01/21/2019 None Full Exam - General 1994 Constitutional general appearance Overall: well nourished 01/21/2019 None Full Exam - General 1994 Eyes conjunctiva/eyelids Overall: conjunctiva clear 01/21/2019 None Full Exam - General 1994 Eyes conjunctiva/eyelids Overall: cornea clear 01/21/2019 None Full Exam - General 1994 Eyes conjunctiva/eyelids Overall: eyelids normal 01/21/2019 None Full Exam - General 1994 Ears/Nose/Throat otoscopic exam Overall: external auditory canals clear 01/21/2019 None Full Exam - General 1994 Ears/Nose/Throat otoscopic exam Tympanic membrane: air-fluid level 01/21/2019 None Full Exam - General 1994 Ears/Nose/Throat internal nose Drainage: clear 01/21/2019 None Full Exam - General 1994 Ears/Nose/Throat internal nose Sinus tenderness: left maxillary 01/21/2019 None Full Exam - General 1994 Ears/Nose/Throat internal nose Sinus tenderness: right maxillary 01/21/2019 None Full Exam - General 1994 Ears/Nose/Throat lips/teeth/gingiva Overall: benign lips 01/21/2019 None Full Exam - General 1994 Ears/Nose/Throat lips/teeth/gingiva Overall: normal dentition 01/21/2019 None Full Exam - General 1994 Ears/Nose/Throat oral cavity/pharynx/larynx Overall: oral mucosa clear 01/21/2019 None Full Exam - General 1994 Ears/Nose/Throat oral cavity/pharynx/larynx Posterior Pharynx: clear post nasal drainage 01/21/2019 None Full Exam - General 1994 Ears/Nose/Throat oral cavity/pharynx/larynx Oropharynx: erythema 01/21/2019 None Full Exam - General 1994 Respiratory auscultation Overall: breath sounds clear bilaterally 01/21/2019 None Full Exam - General 1994 Respiratory respiratory effort/rhythm Overall: no retractions 01/21/2019 None Full Exam - General 1994 Respiratory respiratory effort/rhythm Overall: normal rate 01/21/2019 None Full Exam - General 1994 Cardiovascular auscultation of heart Overall: regular rate 01/21/2019 None Full Exam - General 1994 Cardiovascular auscultation of heart Overall: normal heart sounds 01/21/2019 None Full Exam - General 1994 Abdomen abdominal exam Overall: no tenderness 01/21/2019 None Full Exam - General 1994 Abdomen abdominal exam Overall: normal bowel sounds 01/21/2019 None Full Exam - General 1994 Integument inspection of skin Overall: no rash, lesions 01/21/2019 None Full Exam - General 1994 Neurologic cranial nerves Overall: crainial nerves 2 - 12 grossly intact 01/21/2019 None Full Exam - General 1994 Psychiatric orientation/consciousness Overall: oriented to person, place and time 01/21/2019 None Full Exam - Cardiology Lymphatic neck nodes Overall: anterior cervical chain talha ign 01/21/2019 None Full Exam - Cardiology Lymphatic neck nodes Overall: posterior cervical chain be nign 01/21/2019 None Full Exam - General 1994 Constitutional general appearance Overall: well developed 10/14/2018 None Full Exam - General 1994 Constitutional general appearance Overall: in no acute distress 10/14/2018 None Full Exam - General 1994 Constitutional general appearance Overall: well nourished 10/14/2018 None Full Exam - General 1994 Eyes pupils and irises Overall: pupils equal, round, reactive to light and accomodation 10/14/2018 None Full Exam - General 1994 Ears/Nose/Throat oral cavity/pharynx/larynx Overall: oral mucosa clear 10/14/2018 None Full Exam - General 1994 Ears/Nose/Throat oral cavity/pharynx/larynx Overall: oropharyngeal mucosa clear 10/14/2018 None Full Exam - General 1994 Ears/Nose/Throat oral cavity/pharynx/larynx Overall: no masses 10/14/2018 None Full Exam - General 1994 Respiratory auscultation Overall: breath sounds clear bilaterally 10/14/2018 None Full Exam - General 1994 Respiratory respiratory effort/rhythm Overall: no retractions 10/14/2018 None Full Exam - General 1994 Respiratory respiratory effort/rhythm Overall: normal rate 10/14/2018 None Full Exam - General 1994 Cardiovascular auscultation of heart Overall: normal heart sounds 10/14/2018 None Full Exam - General 1994 Cardiovascular auscultation of heart Rate: bradycardia 10/14/2018 None Full Exam - General 1994 Psychiatric orientation/consciousness Overall: oriented to person, place and time 10/14/2018 None Full Exam - General 1994 Psychiatric mood and affect Overall: normal mood and affect 10/14/2018 None Full Exam - General 1994 Psychiatric mood and affect Mood: happy 10/14/2018 None Full Exam - General 1994 Musculoskeletal head and neck Overall: cervical spine benign 10/14/2018 None Full Exam - General 1994 Musculoskeletal head and neck Overall: head atraumatic 10/14/2018 None Full Exam - General 1994 Neurologic cranial nerves Overall: crainial nerves 2 - 12 grossly intact 10/14/2018 None Full Exam - General 1994 Constitutional general appearance Overall: well nourished 09/22/2018 None Full Exam - General 1994 Constitutional general appearance Overall: well developed 09/22/2018 None Full Exam - General 1994 Constitutional general appearance Overall: in no acute distress 09/22/2018 None Full Exam - General 1994 Eyes pupils and irises Overall: pupils equal, round, reactive to light and accomodation 09/22/2018 None Full Exam - General 1994 Ears/Nose/Throat oral cavity/pharynx/larynx Overall: oropharyngeal mucosa clear 09/22/2018 None Full Exam - General 1994 Ears/Nose/Throat oral cavity/pharynx/larynx Overall: no masses 09/22/2018 None Full Exam - General 1994 Ears/Nose/Throat oral cavity/pharynx/larynx Overall: oral mucosa clear 09/22/2018 None Full Exam - General 1994 Respiratory respiratory effort/rhythm Overall: normal rate 09/22/2018 None Full Exam - General 1994 Respiratory respiratory effort/rhythm Overall: no retractions 09/22/2018 None Full Exam - General 1994 Respiratory auscultation Overall: breath sounds clear bilaterally 09/22/2018 None Full Exam - General 1994 Cardiovascular auscultation of heart Overall: normal heart sounds 09/22/2018 None Full Exam - General 1994 Cardiovascular auscultation of heart Rate: bradycardia 09/22/2018 None Full Exam - General 1994 Psychiatric orientation/consciousness Overall: oriented to person, place and time 09/22/2018 None Full Exam - General 1994 Psychiatric mood and affect Mood: happy 09/22/2018 None Full Exam - General 1994 Psychiatric mood and affect Overall: normal mood and affect 09/22/2018 None Full Exam - General 1994 Constitutional general appearance Overall: well developed 08/17/2018 None Full Exam - General 1994 Constitutional general appearance Overall: in no acute distress 08/17/2018 None Full Exam - General 1994 Constitutional general appearance Overall: well nourished 08/17/2018 None Full Exam - General 1994 Eyes conjunctiva/eyelids Overall: conjunctiva clear 08/17/2018 None Full Exam - General 1994 Eyes conjunctiva/eyelids Overall: cornea clear 08/17/2018 None Full Exam - General 1994 Eyes conjunctiva/eyelids Overall: eyelids normal 08/17/2018 None Full Exam - General 1994 Eyes pupils and irises Overall: pupils equal, round, reactive to light and accomodation 08/17/2018 None Full Exam - General 1994 Ears/Nose/Throat lips/teeth/gingiva Overall: benign lips 08/17/2018 None Full Exam - General 1994 Ears/Nose/Throat lips/teeth/gingiva Overall: normal dentition 08/17/2018 None Full Exam - General 1994 Ears/Nose/Throat oral cavity/pharynx/larynx Overall: oral mucosa clear 08/17/2018 None Full Exam - General 1994 Respiratory auscultation Overall: breath sounds clear bilaterally 08/17/2018 None Full Exam - General 1994 Respiratory respiratory effort/rhythm Overall: no retractions 08/17/2018 None Full Exam - General 1994 Respiratory respiratory effort/rhythm Overall: normal rate 08/17/2018 None Full Exam - General 1994 Cardiovascular extremities Overall: no clubbing 08/17/2018 None Full Exam - General 1994 Cardiovascular auscultation of heart Overall: regular rate 08/17/2018 None Full Exam - General 1994 Cardiovascular auscultation of heart Overall: normal heart sounds 08/17/2018 None Full Exam - General 1994 Cardiovascular auscultation of heart Overall: no murmurs 08/17/2018 None Full Exam - General 1994 Musculoskeletal digits and nails First CMC: swelling 08/17/2018 None Full Exam - General 1994 Musculoskeletal digits and nails DIPs: swelling 08/17/2018 None Full Exam - General 1994 Musculoskeletal digits and nails PIPs: swelling 08/17/2018 None Full Exam - General 1994 Musculoskeletal digits and nails PIPs: deformity 08/17/2018 None Full Exam - General 1994 Musculoskeletal digits and nails PIPs: bony enlargement 08/17/2018 None Full Exam - General 1994 Musculoskeletal digits and nails MCPs: swelling 08/17/2018 None Full Exam - General 1994 Neurologic cranial nerves Overall: crainial nerves 2 - 12 grossly intact 08/17/2018 None Full Exam - General 1994 Psychiatric orientation/consciousness Overall: oriented to person, place and time 08/17/2018 None Full Exam - General 1994 Psychiatric mood and affect Overall: normal mood and affect 08/17/2018 None Full Exam - General 1994 Psychiatric appearance Overall: well-groomed, good eye contact 08/17/2018 None Full Exam - General 1994 Constitutional general appearance Overall: well developed 06/08/2018 None Full Exam - General 1994 Constitutional general appearance Overall: in no acute distress 06/08/2018 None Full Exam - General 1994 Constitutional general appearance Overall: well nourished 06/08/2018 None Full Exam - General 1994 Eyes conjunctiva/eyelids Overall: conjunctiva clear 06/08/2018 None Full Exam - General 1994 Eyes conjunctiva/eyelids Overall: cornea clear 06/08/2018 None Full Exam - General 1994 Eyes conjunctiva/eyelids Overall: eyelids normal 06/08/2018 None Full Exam - General 1994 Eyes pupils and irises Overall: pupils equal, round, reactive to light and accomodation 06/08/2018 None Full Exam - General 1994 Ears/Nose/Throat lips/teeth/gingiva Overall: benign lips 06/08/2018 None Full Exam - General 1994 Ears/Nose/Throat lips/teeth/gingiva Overall: normal dentition 06/08/2018 None Full Exam - General 1994 Ears/Nose/Throat oral cavity/pharynx/larynx Overall: oral mucosa clear 06/08/2018 None Full Exam - General 1994 Respiratory auscultation Overall: breath sounds clear bilaterally 06/08/2018 None Full Exam - General 1994 Respiratory respiratory effort/rhythm Overall: no retractions 06/08/2018 None Full Exam - General 1994 Respiratory respiratory effort/rhythm Overall: normal rate 06/08/2018 None Full Exam - General 1994 Cardiovascular auscultation of heart Overall: regular rate 06/08/2018 None Full Exam - General 1994 Cardiovascular auscultation of heart Overall: normal heart sounds 06/08/2018 None Full Exam - General 1994 Cardiovascular auscultation of heart Overall: no murmurs 06/08/2018 None Full Exam - General 1994 Abdomen abdominal exam Overall: no tenderness 06/08/2018 None Full Exam - General 1994 Abdomen abdominal exam Overall: normal bowel sounds 06/08/2018 None Full Exam - General 1994 Musculoskeletal digits and nails First CMC: swelling 06/08/2018 None Full Exam - General 1994 Musculoskeletal digits and nails DIPs: swelling 06/08/2018 None Full Exam - General 1994 Musculoskeletal digits and nails PIPs: swelling 06/08/2018 None Full Exam - General 1994 Musculoskeletal digits and nails PIPs: deformity 06/08/2018 None Full Exam - General 1994 Musculoskeletal digits and nails PIPs: bony enlargement 06/08/2018 None Full Exam - General 1994 Musculoskeletal digits and nails MCPs: swelling 06/08/2018 None Full Exam - General 1994 Neurologic cranial nerves Overall: crainial nerves 2 - 12 grossly intact 06/08/2018 None Full Exam - General 1994 Psychiatric orientation/consciousness Overall: oriented to person, place and time 06/08/2018 None Full Exam - General 1994 Psychiatric mood and affect Overall: normal mood and affect 06/08/2018 None Full Exam - General 1994 Psychiatric appearance Overall: well-groomed, good eye contact 06/08/2018 None Full Exam - General 1994 Cardiovascular extremities Overall: no clubbing 06/08/2018 None Full Exam - ENT Constitutional general appearance Overall: well nourished 05/04/2018 None Full Exam - ENT Constitutional general appearance Overall: well developed 05/04/2018 None Full Exam - ENT Constitutional general appearance Overall: in no acute distress 05/04/2018 None Full Exam - ENT Neurologic orientation Overall: oriented to person, place a nd time 05/04/2018 None Full Exam - ENT Integument inspection of skin Overall: no rash, lesions 05/04/2018 None Full Exam - ENT Lymphatic palpation of lymph nodes Overall: anterior cervical chain benign 05/04/2018 None Full Exam - ENT Lymphatic palpation of lymph nodes Overall: posterior cervical chain benign 05/04/2018 None Full Exam - ENT Cardiovascular auscultation of heart Overall: regular rate 05/04/2018 None Full Exam - ENT Cardiovascular auscultation of heart Overall: normal heart sounds 05/04/2018 None Full Exam - ENT Respiratory auscultation Overall: breath sounds clear bilater ally 05/04/2018 None Full Exam - ENT Respiratory inspection Overall: normal rate 12/2017 None Full Exam - ENT Respiratory inspection Overall: no retractions 05/04/2018 None Full Exam - ENT Face and Head palpation Overall: no sinus tenderness 05/04/2018 None Full Exam - ENT Ears/Nose/Throat otoscopic exam Left external auditory canal: partia l cerumen occlusion 05/04/2018 None Full Exam - ENT Ears/Nose/Throat otoscopic exam Right external auditory canal: parti al cerumen occlusion 05/04/2018 None Full Exam - ENT Ears/Nose/Throat otoscopic exam Left tympanic membrane: not visualiz ed 05/04/2018 None Full Exam - ENT Ears/Nose/Throat otoscopic exam Right tympanic membrane: not visuali zed 05/04/2018 None Full Exam - ENT Ears/Nose/Throat oropharynx Overall: oral mucosa clear 05/04/2018 None Full Exam - General 1994 Constitutional general appearance Overall: well developed 02/04/2018 None Full Exam - General 1994 Constitutional general appearance Overall: in no acute distress 02/04/2018 None Full Exam - General 1994 Constitutional general appearance Overall: well nourished 02/04/2018 None Full Exam - General 1994 Eyes conjunctiva/eyelids Overall: conjunctiva clear 02/04/2018 None Full Exam - General 1994 Eyes conjunctiva/eyelids Overall: cornea clear 02/04/2018 None Full Exam - General 1994 Eyes conjunctiva/eyelids Overall: eyelids normal 02/04/2018 None Full Exam - General 1994 Eyes pupils and irises Overall: pupils equal, round, reactive to light and accomodation 02/04/2018 None Full Exam - General 1994 Ears/Nose/Throat lips/teeth/gingiva Overall: benign lips 02/04/2018 None Full Exam - General 1994 Ears/Nose/Throat lips/teeth/gingiva Overall: normal dentition 02/04/2018 None Full Exam - General 1994 Ears/Nose/Throat oral cavity/pharynx/larynx Overall: oral mucosa clear 02/04/2018 None Full Exam - General 1994 Respiratory auscultation Overall: breath sounds clear bilaterally 02/04/2018 None Full Exam - General 1994 Respiratory respiratory effort/rhythm Overall: no retractions 02/04/2018 None Full Exam - General 1994 Respiratory respiratory effort/rhythm Overall: normal rate 02/04/2018 None Full Exam - General 1994 Cardiovascular extremities Overall: no clubbing 02/04/2018 None Full Exam - General 1994 Cardiovascular auscultation of heart Overall: regular rate 02/04/2018 None Full Exam - General 1994 Cardiovascular auscultation of heart Overall: normal heart sounds 02/04/2018 None Full Exam - General 1994 Cardiovascular auscultation of heart Overall: no murmurs 02/04/2018 None Full Exam - General 1994 Abdomen abdominal exam Overall: no tenderness 02/04/2018 None Full Exam - General 1994 Abdomen abdominal exam Overall: normal bowel sounds 02/04/2018 None Full Exam - General 1994 Integument inspection of skin Overall: no rash, lesions 02/04/2018 None Full Exam - General 1994 Neurologic cranial nerves Overall: crainial nerves 2 - 12 grossly intact 02/04/2018 None Full Exam - General 1994 Psychiatric orientation/consciousness Overall: oriented to person, place and time 02/04/2018 None Full Exam - General 1994 Psychiatric mood and affect Overall: normal mood and affect 02/04/2018 None Full Exam - General 1994 Psychiatric appearance Overall: well-groomed, good eye contact 02/04/2018 None Full Exam - General 1994 Musculoskeletal digits and nails First CMC: swelling 02/04/2018 None Full Exam - General 1994 Musculoskeletal digits and nails DIPs: swelling 02/04/2018 None Full Exam - General 1994 Musculoskeletal digits and nails PIPs: swelling 02/04/2018 None Full Exam - General 1994 Musculoskeletal digits and nails MCPs: swelling 02/04/2018 None Full Exam - General 1994 Musculoskeletal digits and nails PIPs: bony enlargement 02/04/2018 None Full Exam - General 1994 Musculoskeletal digits and nails PIPs: deformity 02/04/2018 None Full Exam - General 1994 Cardiovascular extremities Edema present: pitting 02/04/2018 2+ at ankles Full Exam - General 1994 Constitutional general appearance Overall: well developed 02/03/2018 None Full Exam - General 1994 Constitutional general appearance Overall: in no acute distress 02/03/2018 None Full Exam - General 1994 Constitutional general appearance Overall: well nourished 02/03/2018 None Full Exam - General 1994 Eyes conjunctiva/eyelids Overall: conjunctiva clear 02/03/2018 None Full Exam - General 1994 Ears/Nose/Throat lips/teeth/gingiva Overall: benign lips 02/03/2018 None Full Exam - General 1994 Respiratory respiratory effort/rhythm Overall: no retractions 02/03/2018 None Full Exam - General 1994 Respiratory respiratory effort/rhythm Overall: normal rate 02/03/2018 None Full Exam - General 1994 Musculoskeletal head and neck Overall: head atraumatic 02/03/2018 None Full Exam - General 1994 Neurologic cranial nerves Overall: crainial nerves 2 - 12 grossly intact 02/03/2018 None Full Exam - General 1994 Psychiatric orientation/consciousness Overall: oriented to person, place and time 02/03/2018 None Full Exam - General 1994 Psychiatric mood and affect Overall: normal mood and affect 02/03/2018 None Full Exam - General 1994 Psychiatric appearance Overall: well-groomed, good eye contact 02/03/2018 None Full Exam - General 1994 Eyes conjunctiva/eyelids Overall: cornea clear 02/03/2018 None Full Exam - General 1994 Eyes conjunctiva/eyelids Overall: eyelids normal 02/03/2018 None Full Exam - General 1994 Ears/Nose/Throat oral cavity/pharynx/larynx Overall: oral mucosa clear 02/03/2018 None Full Exam - General 1994 Constitutional general appearance Overall: well developed 09/17/2017 None Full Exam - General 1994 Constitutional general appearance Overall: in no acute distress 09/17/2017 None Full Exam - General 1994 Constitutional general appearance Overall: well nourished 09/17/2017 None Full Exam - General 1994 Eyes conjunctiva/eyelids Overall: conjunctiva clear 09/17/2017 None Full Exam - General 1994 Eyes conjunctiva/eyelids Overall: cornea clear 09/17/2017 None Full Exam - General 1994 Eyes conjunctiva/eyelids Overall: eyelids normal 09/17/2017 None Full Exam - General 1994 Eyes pupils and irises Overall: pupils equal, round, reactive to light and accomodation 09/17/2017 None Full Exam - General 1994 Ears/Nose/Throat lips/teeth/gingiva Overall: benign lips 09/17/2017 None Full Exam - General 1994 Ears/Nose/Throat lips/teeth/gingiva Overall: normal dentition 09/17/2017 None Full Exam - General 1994 Respiratory auscultation Overall: breath sounds clear bilaterally 09/17/2017 None Full Exam - General 1994 Respiratory respiratory effort/rhythm Overall: no retractions 09/17/2017 None Full Exam - General 1994 Respiratory respiratory effort/rhythm Overall: normal rate 09/17/2017 None Full Exam - General 1994 Cardiovascular extremities Overall: no clubbing 09/17/2017 None Full Exam - General 1994 Cardiovascular auscultation of heart Overall: regular rate 09/17/2017 None Full Exam - General 1994 Cardiovascular auscultation of heart Overall: normal heart sounds 09/17/2017 None Full Exam - General 1994 Cardiovascular auscultation of heart Overall: no murmurs 09/17/2017 None Full Exam - General 1994 Abdomen abdominal exam Overall: no tenderness 09/17/2017 None Full Exam - General 1994 Abdomen abdominal exam Overall: normal bowel sounds 09/17/2017 None Full Exam - General 1994 Integument inspection of skin Overall: no rash, lesions 09/17/2017 None Full Exam - General 1994 Neurologic cranial nerves Overall: crainial nerves 2 - 12 grossly intact 09/17/2017 None Full Exam - General 1994 Psychiatric orientation/consciousness Overall: oriented to person, place and time 09/17/2017 None Full Exam - General 1994 Ears/Nose/Throat oral cavity/pharynx/larynx Overall: oral mucosa clear 09/17/2017 None Full Exam - General 1994 Psychiatric mood and affect Overall: normal mood and affect 09/17/2017 None Full Exam - General 1994 Psychiatric appearance Overall: well-groomed, good eye contact 09/17/2017 None Full Exam - Dermatology Constitutional general appearance Overall: well nourished 06/23/2017 None Full Exam - Dermatology Constitutional general appearance Overall: well developed 06/23/2017 None Full Exam - Dermatology Constitutional general appearance Overall: in no acute distress 06/23/2017 None Full Exam - Dermatology Eyes conjunctiva/eyelids Overall: clear conjunctiva bilaterally 06/23/2017 None Full Exam - Dermatology Eyes conjunctiva/eyelids Overall: normal eyelids 06/23/2017 None Full Exam - Dermatology Ears/Nose/Throat lips/teeth/gingiva Overall: benign lips 06/23/2017 None Full Exam - Dermatology Ears/Nose/Throat oropharynx Overall: clear oral mucosa 06/23/2017 None Full Exam - Dermatology Respiratory respiratory effort/rhythm Overall: no retractions 06/23/2017 None Full Exam - Dermatology Respiratory respiratory effort/rhythm Overall: normal rate 06/23/2017 None Full Exam - Dermatology Integument insp & palp - head/face Location: on the chin 06/23/2017 None Full Exam - Dermatology Psychiatric orientation Overall: oriented to person, place and time 06/23/2017 None Full Exam - Dermatology Psychiatric mood and affect Overall: normal mood and affect 06/23/2017 None Full Exam - Dermatology Integument insp & palp - right lower extremity Location: on the st 06/23/2017 None Full Exam - Dermatology Integument insp & palp - right lower extremity Color: erythematous 06/23/2017 None Full Exam - Dermatology Integument insp & palp - right lower extremity Lesion: patch 06/23/2017 with linear vesicular kamille h Full Exam - Dermatology Integument insp & palp - right upper extremity Lesion: vesicle 06/23/2017 None Full Exam - Dermatology Integument insp & palp - right upper extremity Lesion: patch 06/23/2017 None Full Exam - Dermatology Integument insp & palp - right upper extremity Distribution: generalized 06/23/2017 None Full Exam - Dermatology Integument insp & palp - right upper extremity Location: on the upper arm 06/23/2017 None Full Exam - Dermatology Integument insp & palp - right upper extremity Location: on the forearm 06/23/2017 None Full Exam - Dermatology Integument insp & palp - left upper extremity Distribution: generalized 06/23/2017 None Full Exam - Dermatology Integument insp & palp - left upper extremity Location: on the forearm 06/23/2017 None Full Exam - Dermatology Integument insp & palp - left upper extremity Location: on the upper arm 06/23/2017 None Full Exam - Dermatology Integument insp & palp - left upper extremity Color: erythematous 06/23/2017 None Full Exam - General 1994 Constitutional general appearance Overall: well developed 05/13/2017 None Full Exam - General 1994 Constitutional general appearance Overall: in no acute distress 05/13/2017 None Full Exam - General 1994 Constitutional general appearance Overall: well nourished 05/13/2017 None Full Exam - General 1994 Eyes conjunctiva/eyelids Overall: conjunctiva clear 05/13/2017 None Full Exam - General 1994 Eyes conjunctiva/eyelids Overall: cornea clear 05/13/2017 None Full Exam - General 1994 Eyes conjunctiva/eyelids Overall: eyelids normal 05/13/2017 None Full Exam - General 1994 Eyes pupils and irises Overall: pupils equal, round, reactive to light and accomodation 05/13/2017 None Full Exam - General 1994 Ears/Nose/Throat lips/teeth/gingiva Overall: benign lips 05/13/2017 None Full Exam - General 1994 Ears/Nose/Throat lips/teeth/gingiva Overall: normal dentition 05/13/2017 None Full Exam - General 1994 Respiratory auscultation Overall: breath sounds clear bilaterally 05/13/2017 None Full Exam - General 1994 Respiratory respiratory effort/rhythm Overall: no retractions 05/13/2017 None Full Exam - General 1994 Respiratory respiratory effort/rhythm Overall: normal rate 05/13/2017 None Full Exam - General 1994 Cardiovascular extremities Overall: no clubbing 05/13/2017 None Full Exam - General 1994 Cardiovascular auscultation of heart Overall: regular rate 05/13/2017 None Full Exam - General 1994 Cardiovascular auscultation of heart Overall: normal heart sounds 05/13/2017 None Full Exam - General 1994 Cardiovascular auscultation of heart Overall: no murmurs 05/13/2017 None Full Exam - General 1994 Abdomen abdominal exam Overall: no tenderness 05/13/2017 None Full Exam - General 1994 Abdomen abdominal exam Overall: normal bowel sounds 05/13/2017 None Full Exam - General 1994 Integument inspection of skin Overall: no rash, lesions 05/13/2017 None Full Exam - General 1994 Neurologic cranial nerves Overall: crainial nerves 2 - 12 grossly intact 05/13/2017 None Full Exam - General 1994 Psychiatric orientation/consciousness Overall: oriented to person, place and time 05/13/2017 None Full Exam - Dermatology Constitutional general appearance Overall: well nourished 03/21/2017 None Full Exam - Dermatology Constitutional general appearance Overall: well developed 03/21/2017 None Full Exam - Dermatology Constitutional general appearance Overall: in no acute distress 03/21/2017 None Full Exam - Dermatology Eyes conjunctiva/eyelids Overall: clear conjunctiva bilaterally 03/21/2017 None Full Exam - Dermatology Eyes conjunctiva/eyelids Overall: normal eyelids 03/21/2017 None Full Exam - Dermatology Ears/Nose/Throat lips/teeth/gingiva Overall: benign lips 03/21/2017 None Full Exam - Dermatology Ears/Nose/Throat oropharynx Overall: clear oral mucosa 03/21/2017 None Full Exam - Dermatology Respiratory respiratory effort/rhythm Overall: no retractions 03/21/2017 None Full Exam - Dermatology Respiratory respiratory effort/rhythm Overall: normal rate 03/21/2017 None Full Exam - Dermatology Psychiatric orientation Overall: oriented to person, place and time 03/21/2017 None Full Exam - Dermatology Psychiatric mood and affect Overall: normal mood and affect 03/21/2017 None Full Exam - Dermatology Integument insp & palp - head/face Location: on the forehead 03/21/2017 None Full Exam - Dermatology Integument insp & palp - head/face Location: on both cheeks 03/21/2017 None Full Exam - Dermatology Integument insp & palp - head/face Location: on the chin 03/21/2017 None Full Exam - Dermatology Integument insp & palp - head/face Color: erythematous 03/21/2017 None Full Exam - Dermatology Constitutional general appearance Overall: well nourished 03/19/2017 None Full Exam - Dermatology Constitutional general appearance Overall: well developed 03/19/2017 None Full Exam - Dermatology Constitutional general appearance Overall: in no acute distress 03/19/2017 None Full Exam - Dermatology Eyes conjunctiva/eyelids Overall: clear conjunctiva bilaterally 03/19/2017 None Full Exam - Dermatology Eyes conjunctiva/eyelids Overall: normal eyelids 03/19/2017 None Full Exam - Dermatology Ears/Nose/Throat lips/teeth/gingiva Overall: benign lips 03/19/2017 None Full Exam - Dermatology Ears/Nose/Throat oropharynx Overall: clear oral mucosa 03/19/2017 None Full Exam - Dermatology Respiratory respiratory effort/rhythm Overall: no retractions 03/19/2017 None Full Exam - Dermatology Respiratory respiratory effort/rhythm Overall: normal rate 03/19/2017 None Full Exam - Dermatology Integument insp & palp - left lower extremity Location: on the thigh 03/19/2017 None Full Exam - Dermatology Integument insp & palp - left lower extremity Distribution: isolated 03/19/2017 None Full Exam - Dermatology Integument insp & palp - left lower extremity Color: erythematous 03/19/2017 small sore from tick removal Full Exam - Dermatology Psychiatric orientation Overall: oriented to person, place and time 03/19/2017 None Full Exam - Dermatology Psychiatric mood and affect Overall: normal mood and affect 03/19/2017 None Full Exam - General 1994 Constitutional general appearance Overall: well developed 01/22/2017 None Full Exam - General 1994 Constitutional general appearance Overall: in no acute distress 01/22/2017 None Full Exam - General 1994 Constitutional general appearance Overall: well nourished 01/22/2017 None Full Exam - General 1994 Eyes conjunctiva/eyelids Overall: conjunctiva clear 01/22/2017 None Full Exam - General 1994 Eyes conjunctiva/eyelids Overall: eyelids normal 01/22/2017 None Full Exam - General 1994 Ears/Nose/Throat lips/teeth/gingiva Overall: benign lips 01/22/2017 None Full Exam - General 1994 Ears/Nose/Throat oral cavity/pharynx/larynx Overall: oral mucosa clear 01/22/2017 None Full Exam - General 1994 Respiratory auscultation Overall: breath sounds clear bilaterally 01/22/2017 None Full Exam - General 1994 Respiratory respiratory effort/rhythm Overall: no retractions 01/22/2017 None Full Exam - General 1994 Respiratory respiratory effort/rhythm Overall: normal rate 01/22/2017 None Full Exam - General 1994 Cardiovascular extremities Overall: no clubbing 01/22/2017 None Full Exam - General 1994 Cardiovascular auscultation of heart Overall: regular rate 01/22/2017 None Full Exam - General 1994 Cardiovascular auscultation of heart Overall: normal heart sounds 01/22/2017 None Full Exam - General 1994 Musculoskeletal head and neck Overall: head atraumatic 01/22/2017 None Full Exam - General 1994 Psychiatric orientation/consciousness Overall: oriented to person, place and time 01/22/2017 None Full Exam - General 1994 Psychiatric mood and affect Overall: normal mood and affect 01/22/2017 None Full Exam - General 1994 Psychiatric appearance Overall: well-groomed, good eye contact 01/22/2017 None Full Exam - General 1994 Ears/Nose/Throat otoscopic exam External auditory canal: complete cerumen impaction 01/22/2017 None Full Exam - General 1994 Ears/Nose/Throat otoscopic exam Tympanic membrane: not visualized 01/22/2017 None Full Exam - General 1994 Constitutional general appearance Overall: well developed 01/14/2017 None Full Exam - General 1994 Constitutional general appearance Overall: in no acute distress 01/14/2017 None Full Exam - General 1994 Constitutional general appearance Overall: well nourished 01/14/2017 None Full Exam - General 1994 Eyes conjunctiva/eyelids Overall: conjunctiva clear 01/14/2017 None Full Exam - General 1994 Eyes conjunctiva/eyelids Overall: cornea clear 01/14/2017 None Full Exam - General 1994 Eyes conjunctiva/eyelids Overall: eyelids normal 01/14/2017 None Full Exam - General 1994 Eyes pupils and irises Overall: pupils equal, round, reactive to light and accomodation 01/14/2017 None Full Exam - General 1994 Ears/Nose/Throat lips/teeth/gingiva Overall: benign lips 01/14/2017 None Full Exam - General 1994 Ears/Nose/Throat lips/teeth/gingiva Overall: normal dentition 01/14/2017 None Full Exam - General 1994 Respiratory auscultation Overall: breath sounds clear bilaterally 01/14/2017 None Full Exam - General 1994 Respiratory respiratory effort/rhythm Overall: no retractions 01/14/2017 None Full Exam - General 1994 Respiratory respiratory effort/rhythm Overall: normal rate 01/14/2017 None Full Exam - General 1994 Cardiovascular extremities Overall: no clubbing 01/14/2017 None Full Exam - General 1994 Cardiovascular auscultation of heart Overall: regular rate 01/14/2017 None Full Exam - General 1994 Cardiovascular auscultation of heart Overall: normal heart sounds 01/14/2017 None Full Exam - General 1994 Cardiovascular auscultation of heart Overall: no murmurs 01/14/2017 None Full Exam - General 1994 Abdomen abdominal exam Overall: no tenderness 01/14/2017 None Full Exam - General 1994 Abdomen abdominal exam Overall: normal bowel sounds 01/14/2017 None Full Exam - General 1994 Integument inspection of skin Overall: no rash, lesions 01/14/2017 None Full Exam - General 1994 Neurologic cranial nerves Overall: crainial nerves 2 - 12 grossly intact 01/14/2017 None Full Exam - General 1994 Psychiatric orientation/consciousness Overall: oriented to person, place and time 01/14/2017 None Full Exam - Dermatology Constitutional general appearance Overall: well nourished 09/23/2016 None Full Exam - Dermatology Constitutional general appearance Overall: well developed 09/23/2016 None Full Exam - Dermatology Constitutional general appearance Overall: in no acute distress 09/23/2016 None Full Exam - Dermatology Constitutional general appearance Overall: well groomed 09/23/2016 None Full Exam - Dermatology Eyes conjunctiva/eyelids Overall: clear conjunctiva bilaterally 09/23/2016 None Full Exam - Dermatology Eyes conjunctiva/eyelids Overall: clear corneas 09/23/2016 None Full Exam - Dermatology Ears/Nose/Throat oropharynx Oral mucosa: dry appearance 09/23/2016 None Full Exam - Dermatology Ears/Nose/Throat lips/teeth/gingiva Left upper lip: dryness 09/23/2016 None Full Exam - Dermatology Ears/Nose/Throat lips/teeth/gingiva Central upper lip: dryness 09/23/2016 None Full Exam - Dermatology Ears/Nose/Throat lips/teeth/gingiva Right upper lip: dryness 09/23/2016 None Full Exam - Dermatology Ears/Nose/Throat lips/teeth/gingiva Left lower lip: dryness 09/23/2016 None Full Exam - Dermatology Ears/Nose/Throat lips/teeth/gingiva Central lower lip: dryness 09/23/2016 None Full Exam - Dermatology Ears/Nose/Throat lips/teeth/gingiva Right lower lip: dryness 09/23/2016 None Full Exam - Dermatology Neck thyroid Overall: normal size None Full Exam - Dermatology Neck thyroid Overall: normal consistency 09/23/2016 None Full Exam - Dermatology Respiratory auscultation Overall: breath sounds clear bilaterally 09/23/2016 None Full Exam - Dermatology Respiratory respiratory effort/rhythm Overall: no retractions 09/23/2016 None Full Exam - Dermatology Respiratory respiratory effort/rhythm Overall: normal rate 09/23/2016 None Full Exam - Dermatology Cardiovascular peripheral vascular system Overall: S1S2 09/23/2016 None Full Exam - Dermatology Neurologic speech Overall: normal quality, no aphasia 09/23/2016 None Full Exam - Dermatology Psychiatric orientation Overall: oriented to person, place and time 09/23/2016 None Full Exam - Dermatology Psychiatric mood and affect Overall: normal mood and affect 09/23/2016 None Full Exam - Dermatology Lymphatic palpation Overall: benign nodes in the neck, axillae and groin 09/23/2016 None Full Exam - General 1994 Constitutional general appearance Overall: well developed 09/16/2016 None Full Exam - General 1994 Constitutional general appearance Overall: in no acute distress 09/16/2016 None Full Exam - General 1994 Constitutional general appearance Overall: well nourished 09/16/2016 None Full Exam - General 1994 Eyes conjunctiva/eyelids Overall: conjunctiva clear 09/16/2016 None Full Exam - General 1994 Eyes conjunctiva/eyelids Overall: cornea clear 09/16/2016 None Full Exam - General 1994 Eyes conjunctiva/eyelids Overall: eyelids normal 09/16/2016 None Full Exam - General 1994 Eyes pupils and irises Overall: pupils equal, round, reactive to light and accomodation 09/16/2016 None Full Exam - General 1994 Ears/Nose/Throat lips/teeth/gingiva Overall: benign lips 09/16/2016 None Full Exam - General 1994 Ears/Nose/Throat lips/teeth/gingiva Overall: normal dentition 09/16/2016 None Full Exam - General 1994 Respiratory auscultation Overall: breath sounds clear bilaterally 09/16/2016 None Full Exam - General 1994 Respiratory respiratory effort/rhythm Overall: no retractions 09/16/2016 None Full Exam - General 1994 Respiratory respiratory effort/rhythm Overall: normal rate 09/16/2016 None Full Exam - General 1994 Cardiovascular extremities Edema present: pitting 09/16/2016 None Full Exam - General 1994 Cardiovascular extremities Edema present: severity 1+ - 4+: 4 09/16/2016 None Full Exam - General 1994 Cardiovascular extremities Edema present: bilateral 09/16/2016 None Full Exam - General 1994 Cardiovascular extremities Edema present: to leg 09/16/2016 stops below knees Full Exam - General 1994 Cardiovascular auscultation of heart Overall: regular rate 09/16/2016 None Full Exam - General 1994 Cardiovascular auscultation of heart Overall: normal heart sounds 09/16/2016 None Full Exam - General 1994 Cardiovascular auscultation of heart Overall: no murmurs 09/16/2016 None Full Exam - General 1994 Abdomen abdominal exam Overall: no tenderness 09/16/2016 None Full Exam - General 1994 Abdomen abdominal exam Overall: normal bowel sounds 09/16/2016 None Full Exam - General 1994 Integument inspection of skin Overall: no rash, lesions 09/16/2016 None Full Exam - General 1994 Neurologic cranial nerves Overall: crainial nerves 2 - 12 grossly intact 09/16/2016 None Full Exam - General 1994 Psychiatric orientation/consciousness Overall: oriented to person, place and time 09/16/2016 None Full Exam - General 1994 Constitutional general appearance Overall: well developed 06/25/2016 None Full Exam - General 1994 Constitutional general appearance Overall: in no acute distress 06/25/2016 None Full Exam - General 1994 Constitutional general appearance Overall: well nourished 06/25/2016 None Full Exam - General 1994 Psychiatric orientation/consciousness Overall: oriented to person, place and time 06/25/2016 None Full Exam - General 1994 Respiratory auscultation Overall: breath sounds clear bilaterally 06/25/2016 None Full Exam - General 1994 Respiratory respiratory effort/rhythm Overall: no retractions 06/25/2016 None Full Exam - General 1994 Respiratory respiratory effort/rhythm Overall: normal rate 06/25/2016 None Full Exam - General 1994 Cardiovascular auscultation of heart Overall: regular rate 06/25/2016 None Full Exam - General 1994 Cardiovascular auscultation of heart Overall: normal heart sounds 06/25/2016 None Full Exam - General 1994 Cardiovascular auscultation of heart Overall: no murmurs 06/25/2016 None Full Exam - General 1994 Ears/Nose/Throat lips/teeth/gingiva Lips: dry 06/25/2016 None Full Exam - General 1994 Ears/Nose/Throat lips/teeth/gingiva Lips: erythema 06/25/2016 None Full Exam - General 1994 Ears/Nose/Throat lips/teeth/gingiva Lips: chapped 06/25/2016 None Full Exam - General 1994 Constitutional general appearance Overall: well developed 06/17/2016 None Full Exam - General 1994 Constitutional general appearance Overall: in no acute distress 06/17/2016 None Full Exam - General 1994 Constitutional general appearance Overall: well nourished 06/17/2016 None Full Exam - General 1994 Eyes conjunctiva/eyelids Overall: conjunctiva clear 06/17/2016 None Full Exam - General 1994 Eyes conjunctiva/eyelids Overall: cornea clear 06/17/2016 None Full Exam - General 1994 Eyes conjunctiva/eyelids Overall: eyelids normal 06/17/2016 None Full Exam - General 1994 Eyes pupils and irises Overall: pupils equal, round, reactive to light and accomodation 06/17/2016 None Full Exam - General 1994 Ears/Nose/Throat lips/teeth/gingiva Overall: benign lips 06/17/2016 None Full Exam - General 1994 Ears/Nose/Throat lips/teeth/gingiva Overall: normal dentition 06/17/2016 None Full Exam - General 1994 Respiratory auscultation Overall: breath sounds clear bilaterally 06/17/2016 None Full Exam - General 1994 Respiratory respiratory effort/rhythm Overall: no retractions 06/17/2016 None Full Exam - General 1994 Respiratory respiratory effort/rhythm Overall: normal rate 06/17/2016 None Full Exam - General 1994 Cardiovascular auscultation of heart Overall: regular rate 06/17/2016 None Full Exam - General 1994 Cardiovascular auscultation of heart Overall: normal heart sounds 06/17/2016 None Full Exam - General 1994 Cardiovascular auscultation of heart Overall: no murmurs 06/17/2016 None Full Exam - General 1994 Abdomen abdominal exam Overall: no tenderness 06/17/2016 None Full Exam - General 1994 Abdomen abdominal exam Overall: normal bowel sounds 06/17/2016 None Full Exam - General 1994 Integument inspection of skin Overall: no rash, lesions 06/17/2016 None Full Exam - General 1994 Neurologic cranial nerves Overall: crainial nerves 2 - 12 grossly intact 06/17/2016 None Full Exam - General 1994 Psychiatric orientation/consciousness Overall: oriented to person, place and time 06/17/2016 None Full Exam - General 1994 Cardiovascular extremities Overall: no clubbing 06/17/2016 None Full Exam - General 1994 Constitutional general appearance Overall: well developed 04/03/2016 None Full Exam - General 1994 Constitutional general appearance Overall: in no acute distress 04/03/2016 None Full Exam - General 1994 Constitutional general appearance Overall: well nourished 04/03/2016 None Full Exam - General 1994 Eyes conjunctiva/eyelids Overall: conjunctiva clear 04/03/2016 None Full Exam - General 1994 Eyes conjunctiva/eyelids Overall: cornea clear 04/03/2016 None Full Exam - General 1994 Eyes conjunctiva/eyelids Overall: eyelids normal 04/03/2016 None Full Exam - General 1994 Ears/Nose/Throat lips/teeth/gingiva Overall: benign lips 04/03/2016 None Full Exam - General 1994 Ears/Nose/Throat lips/teeth/gingiva Overall: normal dentition 04/03/2016 None Full Exam - General 1994 Respiratory auscultation Overall: breath sounds clear bilaterally 04/03/2016 None Full Exam - General 1994 Respiratory respiratory effort/rhythm Overall: no retractions 04/03/2016 None Full Exam - General 1994 Respiratory respiratory effort/rhythm Overall: normal rate 04/03/2016 None Full Exam - General 1994 Cardiovascular auscultation of heart Overall: regular rate 04/03/2016 None Full Exam - General 1994 Cardiovascular auscultation of heart Overall: normal heart sounds 04/03/2016 None Full Exam - General 1994 Abdomen abdominal exam Overall: no tenderness 04/03/2016 None Full Exam - General 1994 Abdomen abdominal exam Overall: normal bowel sounds 04/03/2016 None Full Exam - General 1994 Integument inspection of skin Overall: no rash, lesions 04/03/2016 None Full Exam - General 1994 Neurologic cranial nerves Overall: crainial nerves 2 - 12 grossly intact 04/03/2016 None Full Exam - General 1994 Psychiatric orientation/consciousness Overall: oriented to person, place and time 04/03/2016 None Full Exam - General 1994 Ears/Nose/Throat otoscopic exam Overall: external auditory canals clear 04/03/2016 None Full Exam - General 1994 Ears/Nose/Throat otoscopic exam Tympanic membrane: air-fluid level 04/03/2016 None Full Exam - General 1994 Ears/Nose/Throat internal nose Drainage: clear 04/03/2016 None Full Exam - General 1994 Ears/Nose/Throat oral cavity/pharynx/larynx Overall: oral mucosa clear 04/03/2016 None Full Exam - General 1994 Ears/Nose/Throat oral cavity/pharynx/larynx Posterior Pharynx: clear post nasal drainage 04/03/2016 None Full Exam - General 1994 Ears/Nose/Throat oral cavity/pharynx/larynx Oropharynx: erythema 04/03/2016 None Full Exam - General 1994 Ears/Nose/Throat internal nose Sinus tenderness: right maxillary 04/03/2016 None Full Exam - General 1994 Ears/Nose/Throat internal nose Sinus tenderness: left maxillary 04/03/2016 None Full Exam - General 1994 Ears/Nose/Throat internal nose Sinus tenderness: right frontal 04/03/2016 None Full Exam - General 1994 Ears/Nose/Throat internal nose Sinus tenderness: left frontal 04/03/2016 None Full Exam - General 1994 Constitutional general appearance Overall: well developed 03/13/2016 None Full Exam - General 1994 Constitutional general appearance Overall: in no acute distress 03/13/2016 None Full Exam - General 1994 Constitutional general appearance Overall: well nourished 03/13/2016 None Full Exam - General 1994 Eyes conjunctiva/eyelids Overall: conjunctiva clear 03/13/2016 None Full Exam - General 1994 Eyes conjunctiva/eyelids Overall: cornea clear 03/13/2016 None Full Exam - General 1994 Eyes conjunctiva/eyelids Overall: eyelids normal 03/13/2016 None Full Exam - General 1994 Eyes pupils and irises Overall: pupils equal, round, reactive to light and accomodation 03/13/2016 None Full Exam - General 1994 Ears/Nose/Throat lips/teeth/gingiva Overall: benign lips 03/13/2016 None Full Exam - General 1994 Ears/Nose/Throat lips/teeth/gingiva Overall: normal dentition 03/13/2016 None Full Exam - General 1994 Respiratory auscultation Overall: breath sounds clear bilaterally 03/13/2016 None Full Exam - General 1994 Respiratory respiratory effort/rhythm Overall: no retractions 03/13/2016 None Full Exam - General 1994 Respiratory respiratory effort/rhythm Overall: normal rate 03/13/2016 None Full Exam - General 1994 Cardiovascular extremities Edema present: pitting 03/13/2016 None Full Exam - General 1994 Cardiovascular extremities Edema present: severity 1+ - 4+: 4 03/13/2016 None Full Exam - General 1994 Cardiovascular extremities Edema present: bilateral 03/13/2016 None Full Exam - General 1994 Cardiovascular extremities Edema present: to leg 03/13/2016 stops below knees Full Exam - General 1994 Cardiovascular auscultation of heart Overall: regular rate 03/13/2016 None Full Exam - General 1994 Cardiovascular auscultation of heart Overall: normal heart sounds 03/13/2016 None Full Exam - General 1994 Cardiovascular auscultation of heart Overall: no murmurs 03/13/2016 None Full Exam - General 1994 Abdomen abdominal exam Overall: no tenderness 03/13/2016 None Full Exam - General 1994 Abdomen abdominal exam Overall: normal bowel sounds 03/13/2016 None Full Exam - General 1994 Integument inspection of skin Overall: no rash, lesions 03/13/2016 None Full Exam - General 1994 Neurologic cranial nerves Overall: crainial nerves 2 - 12 grossly intact 03/13/2016 None Full Exam - General 1994 Psychiatric orientation/consciousness Overall: oriented to person, place and time 03/13/2016 None Full Exam - General 1994 Constitutional general appearance Overall: well developed 01/30/2016 None Full Exam - General 1994 Constitutional general appearance Overall: in no acute distress 01/30/2016 None Full Exam - General 1994 Constitutional general appearance Overall: well nourished 01/30/2016 None Full Exam - General 1994 Eyes conjunctiva/eyelids Overall: conjunctiva clear 01/30/2016 None Full Exam - General 1994 Eyes conjunctiva/eyelids Overall: cornea clear 01/30/2016 None Full Exam - General 1994 Eyes conjunctiva/eyelids Overall: eyelids normal 01/30/2016 None Full Exam - General 1994 Eyes pupils and irises Overall: pupils equal, round, reactive to light and accomodation 01/30/2016 None Full Exam - General 1994 Ears/Nose/Throat lips/teeth/gingiva Overall: benign lips 01/30/2016 None Full Exam - General 1994 Ears/Nose/Throat lips/teeth/gingiva Overall: normal dentition 01/30/2016 None Full Exam - General 1994 Respiratory auscultation Overall: breath sounds clear bilaterally 01/30/2016 None Full Exam - General 1994 Respiratory respiratory effort/rhythm Overall: no retractions 01/30/2016 None Full Exam - General 1994 Respiratory respiratory effort/rhythm Overall: normal rate 01/30/2016 None Full Exam - General 1994 Cardiovascular extremities Edema present: pitting 01/30/2016 None Full Exam - General 1994 Cardiovascular extremities Edema present: bilateral 01/30/2016 None Full Exam - General 1994 Cardiovascular extremities Edema present: to leg 01/30/2016 stops below knees Full Exam - General 1994 Cardiovascular auscultation of heart Overall: regular rate 01/30/2016 None Full Exam - General 1994 Cardiovascular auscultation of heart Overall: normal heart sounds 01/30/2016 None Full Exam - General 1994 Cardiovascular auscultation of heart Overall: no murmurs 01/30/2016 None Full Exam - General 1994 Integument inspection of skin Overall: no rash, lesions 01/30/2016 None Full Exam - General 1994 Neurologic cranial nerves Overall: crainial nerves 2 - 12 grossly intact 01/30/2016 None Full Exam - General 1994 Psychiatric orientation/consciousness Overall: oriented to person, place and time 01/30/2016 None Full Exam - General 1994 Abdomen abdominal exam Overall: no tenderness 01/30/2016 None Full Exam - General 1994 Abdomen abdominal exam Overall: normal bowel sounds 01/30/2016 None Full Exam - General 1994 Cardiovascular extremities Edema present: severity 1+ - 4+: 4 01/30/2016 None Full Exam - General 1994 Constitutional general appearance Overall: well developed 12/21/2015 None Full Exam - General 1994 Constitutional general appearance Overall: in no acute distress 12/21/2015 None Full Exam - General 1994 Constitutional general appearance Overall: well nourished 12/21/2015 None Full Exam - General 1994 Eyes conjunctiva/eyelids Overall: conjunctiva clear 12/21/2015 None Full Exam - General 1994 Eyes conjunctiva/eyelids Overall: cornea clear 12/21/2015 None Full Exam - General 1994 Eyes conjunctiva/eyelids Overall: eyelids normal 12/21/2015 None Full Exam - General 1994 Eyes pupils and irises Overall: pupils equal, round, reactive to light and accomodation 12/21/2015 None Full Exam - General 1994 Respiratory auscultation Overall: breath sounds clear bilaterally 12/21/2015 None Full Exam - General 1994 Respiratory respiratory effort/rhythm Overall: no retractions 12/21/2015 None Full Exam - General 1994 Respiratory respiratory effort/rhythm Overall: normal rate 12/21/2015 None Full Exam - General 1994 Cardiovascular auscultation of heart Overall: regular rate 12/21/2015 None Full Exam - General 1994 Cardiovascular auscultation of heart Overall: normal heart sounds 12/21/2015 None Full Exam - General 1994 Cardiovascular auscultation of heart Overall: no murmurs 12/21/2015 None Full Exam - General 1994 Integument inspection of skin Overall: no rash, lesions 12/21/2015 None Full Exam - General 1994 Neurologic cranial nerves Overall: crainial nerves 2 - 12 grossly intact 12/21/2015 None Full Exam - General 1994 Psychiatric orientation/consciousness Overall: oriented to person, place and time 12/21/2015 None Full Exam - General 1994 Ears/Nose/Throat lips/teeth/gingiva Overall: benign lips 12/21/2015 None Full Exam - General 1994 Ears/Nose/Throat lips/teeth/gingiva Overall: normal dentition 12/21/2015 None Full Exam - General 1994 Cardiovascular extremities Edema present: pitting 12/21/2015 None Full Exam - General 1994 Cardiovascular extremities Edema present: severity 1+ - 4+: 1-2+ 12/21/2015 None Full Exam - General 1994 Cardiovascular extremities Edema present: bilateral 12/21/2015 None Full Exam - General 1994 Cardiovascular extremities Edema present: to leg 12/21/2015 stops below knees Full Exam - General 1994 Constitutional general appearance Overall: well developed 10/09/2015 None Full Exam - General 1994 Constitutional general appearance Overall: in no acute distress 10/09/2015 None Full Exam - General 1994 Constitutional general appearance Overall: well nourished 10/09/2015 None Full Exam - General 1994 Eyes conjunctiva/eyelids Overall: conjunctiva clear 10/09/2015 None Full Exam - General 1994 Eyes conjunctiva/eyelids Overall: cornea clear 10/09/2015 None Full Exam - General 1994 Eyes conjunctiva/eyelids Overall: eyelids normal 10/09/2015 None Full Exam - General 1994 Eyes pupils and irises Overall: pupils equal, round, reactive to light and accomodation 10/09/2015 None Full Exam - General 1994 Ears/Nose/Throat otoscopic exam Overall: external auditory canals clear 10/09/2015 None Full Exam - General 1994 Ears/Nose/Throat otoscopic exam Overall: tympanic membranes clear 10/09/2015 None Full Exam - General 1994 Ears/Nose/Throat oral cavity/pharynx/larynx Overall: oral mucosa clear 10/09/2015 None Full Exam - General 1994 Ears/Nose/Throat oral cavity/pharynx/larynx Overall: oropharyngeal mucosa clear 10/09/2015 None Full Exam - General 1994 Ears/Nose/Throat oral cavity/pharynx/larynx Overall: no masses 10/09/2015 None Full Exam - General 1994 Respiratory auscultation Overall: breath sounds clear bilaterally 10/09/2015 None Full Exam - General 1994 Respiratory respiratory effort/rhythm Overall: no retractions 10/09/2015 None Full Exam - General 1994 Respiratory respiratory effort/rhythm Overall: normal rate 10/09/2015 None Full Exam - General 1994 Cardiovascular auscultation of heart Overall: regular rate 10/09/2015 None Full Exam - General 1994 Cardiovascular auscultation of heart Overall: normal heart sounds 10/09/2015 None Full Exam - General 1994 Cardiovascular auscultation of heart Overall: no murmurs 10/09/2015 None Full Exam - General 1994 Abdomen abdominal exam Overall: no tenderness 10/09/2015 None Full Exam - General 1994 Abdomen abdominal exam Overall: normal bowel sounds 10/09/2015 None Full Exam - General 1994 Lymphatic neck nodes Overall: anterior cervical chain benign 10/09/2015 None Full Exam - General 1994 Lymphatic neck nodes Overall: posterior cervical chain benign 10/09/2015 None Full Exam - General 1994 Integument inspection of skin Overall: no rash, lesions 10/09/2015 None Full Exam - General 1994 Neurologic cranial nerves Overall: crainial nerves 2 - 12 grossly intact 10/09/2015 None Full Exam - General 1994 Psychiatric orientation/consciousness Overall: oriented to person, place and time 10/09/2015 None Full Exam - Dermatology Constitutional general appearance Overall: in no acute distress 06/12/2015 None Full Exam - Dermatology Constitutional general appearance Overall: well developed 06/12/2015 None Full Exam - Dermatology Constitutional general appearance Overall: well nourished 06/12/2015 None Full Exam - Dermatology Constitutional general appearance Overall: of normal body habitus 06/12/2015 None Full Exam - Dermatology Constitutional general appearance Overall: well groomed 06/12/2015 None Full Exam - Dermatology Psychiatric orientation Overall: oriented to person, place and time 06/12/2015 None Full Exam - Dermatology Integument insp & palp - head/face Lesion: patch 06/12/2015 None Full Exam - Dermatology Integument insp & palp - head/face Distribution: localized 06/12/2015 None Full Exam - Dermatology Integument insp & palp - head/face Location: on the forehead 06/12/2015 right side Full Exam - Dermatology Integument insp & palp - head/face Location: on the right lower eyelid 06/12/2015 None Full Exam - Dermatology Integument insp & palp - head/face Location: on the right cheek 06/12/2015 None Full Exam - Dermatology Integument insp & palp - head/face Location: on the right side of the nose 06/12/2015 None Full Exam - Dermatology Integument insp & palp - head/face Location: on the right neck 06/12/2015 None Full Exam - Dermatology Integument insp & palp - head/face Color: erythematous 06/12/2015 None Full Exam - Dermatology Respiratory auscultation Overall: breath sounds clear bilaterally 06/12/2015 None Full Exam - Dermatology Respiratory respiratory effort/rhythm Overall: no retractions 06/12/2015 None Full Exam - Dermatology Respiratory respiratory effort/rhythm Overall: normal rate 06/12/2015 None Full Exam - General 1994 Constitutional general appearance Overall: well developed 06/05/2015 None Full Exam - General 1994 Constitutional general appearance Overall: in no acute distress 06/05/2015 None Full Exam - General 1994 Constitutional general appearance Overall: well nourished 06/05/2015 None Full Exam - General 1994 Eyes conjunctiva/eyelids Overall: conjunctiva clear 06/05/2015 None Full Exam - General 1994 Eyes conjunctiva/eyelids Overall: cornea clear 06/05/2015 None Full Exam - General 1994 Eyes conjunctiva/eyelids Overall: eyelids normal 06/05/2015 None Full Exam - General 1994 Eyes pupils and irises Overall: pupils equal, round, reactive to light and accomodation 06/05/2015 None Full Exam - General 1994 Ears/Nose/Throat otoscopic exam Overall: external auditory canals clear 06/05/2015 None Full Exam - General 1994 Ears/Nose/Throat otoscopic exam Overall: tympanic membranes clear 06/05/2015 None Full Exam - General 1994 Ears/Nose/Throat oral cavity/pharynx/larynx Overall: oral mucosa clear 06/05/2015 None Full Exam - General 1994 Ears/Nose/Throat oral cavity/pharynx/larynx Overall: oropharyngeal mucosa clear 06/05/2015 None Full Exam - General 1994 Ears/Nose/Throat oral cavity/pharynx/larynx Overall: no masses 06/05/2015 None Full Exam - General 1994 Respiratory auscultation Overall: breath sounds clear bilaterally 06/05/2015 None Full Exam - General 1994 Respiratory respiratory effort/rhythm Overall: no retractions 06/05/2015 None Full Exam - General 1994 Respiratory respiratory effort/rhythm Overall: normal rate 06/05/2015 None Full Exam - General 1994 Cardiovascular auscultation of heart Overall: regular rate 06/05/2015 None Full Exam - General 1994 Cardiovascular auscultation of heart Overall: normal heart sounds 06/05/2015 None Full Exam - General 1994 Cardiovascular auscultation of heart Overall: no murmurs 06/05/2015 None Full Exam - General 1994 Abdomen abdominal exam Overall: no tenderness 06/05/2015 None Full Exam - General 1994 Abdomen abdominal exam Overall: normal bowel sounds 06/05/2015 None Full Exam - General 1994 Lymphatic neck nodes Overall: anterior cervical chain benign 06/05/2015 None Full Exam - General 1994 Lymphatic neck nodes Overall: posterior cervical chain benign 06/05/2015 None Full Exam - General 1994 Integument inspection of skin Overall: no rash, lesions 06/05/2015 None Full Exam - General 1994 Neurologic cranial nerves Overall: crainial nerves 2 - 12 grossly intact 06/05/2015 None Full Exam - General 1994 Psychiatric orientation/consciousness Overall: oriented to person, place and time 06/05/2015 None Full Exam - General 1994 Constitutional general appearance Overall: well developed 05/15/2015 None Full Exam - General 1994 Constitutional general appearance Overall: in no acute distress 05/15/2015 None Full Exam - General 1994 Constitutional general appearance Overall: well nourished 05/15/2015 None Full Exam - General 1994 Eyes conjunctiva/eyelids Overall: conjunctiva clear 05/15/2015 None Full Exam - General 1994 Eyes conjunctiva/eyelids Overall: cornea clear 05/15/2015 None Full Exam - General 1994 Eyes conjunctiva/eyelids Overall: eyelids normal 05/15/2015 None Full Exam - General 1994 Eyes pupils and irises Overall: pupils equal, round, reactive to light and accomodation 05/15/2015 None Full Exam - General 1994 Ears/Nose/Throat otoscopic exam Overall: external auditory canals clear 05/15/2015 None Full Exam - General 1994 Ears/Nose/Throat otoscopic exam Overall: tympanic membranes clear 05/15/2015 None Full Exam - General 1994 Ears/Nose/Throat oral cavity/pharynx/larynx Overall: oral mucosa clear 05/15/2015 None Full Exam - General 1994 Ears/Nose/Throat oral cavity/pharynx/larynx Overall: oropharyngeal mucosa clear 05/15/2015 None Full Exam - General 1994 Ears/Nose/Throat oral cavity/pharynx/larynx Overall: no masses 05/15/2015 None Full Exam - General 1994 Respiratory auscultation Overall: breath sounds clear bilaterally 05/15/2015 None Full Exam - General 1994 Respiratory respiratory effort/rhythm Overall: no retractions 05/15/2015 None Full Exam - General 1994 Respiratory respiratory effort/rhythm Overall: normal rate 05/15/2015 None Full Exam - General 1994 Cardiovascular auscultation of heart Overall: regular rate 05/15/2015 None Full Exam - General 1994 Cardiovascular auscultation of heart Overall: normal heart sounds 05/15/2015 None Full Exam - General 1994 Cardiovascular auscultation of heart Overall: no murmurs 05/15/2015 None Full Exam - General 1994 Abdomen abdominal exam Overall: no tenderness 05/15/2015 None Full Exam - General 1994 Abdomen abdominal exam Overall: normal bowel sounds 05/15/2015 None Full Exam - General 1994 Lymphatic neck nodes Overall: anterior cervical chain benign 05/15/2015 None Full Exam - General 1994 Lymphatic neck nodes Overall: posterior cervical chain benign 05/15/2015 None Full Exam - General 1994 Integument inspection of skin Overall: no rash, lesions 05/15/2015 None Full Exam - General 1994 Neurologic cranial nerves Overall: crainial nerves 2 - 12 grossly intact 05/15/2015 None Full Exam - General 1994 Psychiatric orientation/consciousness Overall: oriented to person, place and time 05/15/2015 None Full Exam - General 1994 Constitutional general appearance Overall: well developed 02/06/2015 None Full Exam - General 1994 Constitutional general appearance Overall: in no acute distress 02/06/2015 None Full Exam - General 1994 Constitutional general appearance Overall: well nourished 02/06/2015 None Full Exam - General 1994 Eyes conjunctiva/eyelids Overall: conjunctiva clear 02/06/2015 None Full Exam - General 1994 Eyes conjunctiva/eyelids Overall: cornea clear 02/06/2015 None Full Exam - General 1994 Eyes conjunctiva/eyelids Overall: eyelids normal 02/06/2015 None Full Exam - General 1994 Eyes pupils and irises Overall: pupils equal, round, reactive to light and accomodation 02/06/2015 None Full Exam - General 1994 Ears/Nose/Throat otoscopic exam Overall: external auditory canals clear 02/06/2015 None Full Exam - General 1994 Ears/Nose/Throat otoscopic exam Overall: tympanic membranes clear 02/06/2015 None Full Exam - General 1994 Ears/Nose/Throat oral cavity/pharynx/larynx Overall: oral mucosa clear 02/06/2015 None Full Exam - General 1994 Ears/Nose/Throat oral cavity/pharynx/larynx Overall: oropharyngeal mucosa clear 02/06/2015 None Full Exam - General 1994 Ears/Nose/Throat oral cavity/pharynx/larynx Overall: no masses 02/06/2015 None Full Exam - General 1994 Respiratory auscultation Overall: breath sounds clear bilaterally 02/06/2015 None Full Exam - General 1994 Respiratory respiratory effort/rhythm Overall: no retractions 02/06/2015 None Full Exam - General 1994 Respiratory respiratory effort/rhythm Overall: normal rate 02/06/2015 None Full Exam - General 1994 Cardiovascular auscultation of heart Overall: regular rate 02/06/2015 None Full Exam - General 1994 Cardiovascular auscultation of heart Overall: normal heart sounds 02/06/2015 None Full Exam - General 1994 Cardiovascular auscultation of heart Overall: no murmurs 02/06/2015 None Full Exam - General 1994 Abdomen abdominal exam Overall: no tenderness 02/06/2015 None Full Exam - General 1994 Abdomen abdominal exam Overall: normal bowel sounds 02/06/2015 None Full Exam - General 1994 Lymphatic neck nodes Overall: anterior cervical chain benign 02/06/2015 None Full Exam - General 1994 Lymphatic neck nodes Overall: posterior cervical chain benign 02/06/2015 None Full Exam - General 1994 Integument inspection of skin Overall: no rash, lesions 02/06/2015 None Full Exam - General 1994 Neurologic cranial nerves Overall: crainial nerves 2 - 12 grossly intact 02/06/2015 None Full Exam - General 1994 Psychiatric orientation/consciousness Overall: oriented to person, place and time 02/06/2015 None Full Exam - General 1994 Constitutional general appearance Overall: well developed 01/10/2015 None Full Exam - General 1994 Constitutional general appearance Overall: in no acute distress 01/10/2015 None Full Exam - General 1994 Constitutional general appearance Overall: well nourished 01/10/2015 None Full Exam - General 1994 Eyes conjunctiva/eyelids Overall: conjunctiva clear 01/10/2015 None Full Exam - General 1994 Eyes conjunctiva/eyelids Overall: cornea clear 01/10/2015 None Full Exam - General 1994 Eyes conjunctiva/eyelids Overall: eyelids normal 01/10/2015 None Full Exam - General 1994 Eyes pupils and irises Overall: pupils equal, round, reactive to light and accomodation 01/10/2015 None Full Exam - General 1994 Ears/Nose/Throat otoscopic exam Overall: external auditory canals clear 01/10/2015 None Full Exam - General 1994 Ears/Nose/Throat otoscopic exam Overall: tympanic membranes clear 01/10/2015 None Full Exam - General 1994 Ears/Nose/Throat oral cavity/pharynx/larynx Overall: oral mucosa clear 01/10/2015 None Full Exam - General 1994 Ears/Nose/Throat oral cavity/pharynx/larynx Overall: oropharyngeal mucosa clear 01/10/2015 None Full Exam - General 1994 Ears/Nose/Throat oral cavity/pharynx/larynx Overall: no masses 01/10/2015 None Full Exam - General 1994 Respiratory auscultation Overall: breath sounds clear bilaterally 01/10/2015 None Full Exam - General 1994 Respiratory respiratory effort/rhythm Overall: no retractions 01/10/2015 None Full Exam - General 1994 Respiratory respiratory effort/rhythm Overall: normal rate 01/10/2015 None Full Exam - General 1994 Cardiovascular auscultation of heart Overall: regular rate 01/10/2015 None Full Exam - General 1994 Cardiovascular auscultation of heart Overall: normal heart sounds 01/10/2015 None Full Exam - General 1994 Cardiovascular auscultation of heart Overall: no murmurs 01/10/2015 None Full Exam - General 1994 Lymphatic neck nodes Overall: anterior cervical chain benign 01/10/2015 None Full Exam - General 1994 Lymphatic neck nodes Overall: posterior cervical chain benign 01/10/2015 None Full Exam - General 1994 Psychiatric orientation/consciousness Overall: oriented to person, place and time 01/10/2015 None Full Exam - General 1994 Abdomen abdominal exam Overall: no tenderness 01/10/2015 None Full Exam - General 1994 Abdomen abdominal exam Overall: normal bowel sounds 01/10/2015 None Full Exam - General 1994 Integument inspection of skin Overall: no rash, lesions 01/10/2015 None Full Exam - General 1994 Neurologic cranial nerves Overall: crainial nerves 2 - 12 grossly intact 01/10/2015 None Full Exam - General 1994 Constitutional general appearance Overall: well developed 07/19/2014 None Full Exam - General 1994 Constitutional general appearance Overall: in no acute distress 07/19/2014 None Full Exam - General 1994 Constitutional general appearance Overall: well nourished 07/19/2014 None Full Exam - General 1994 Respiratory auscultation Overall: breath sounds clear bilaterally 07/19/2014 None Full Exam - General 1994 Respiratory respiratory effort/rhythm Overall: no retractions 07/19/2014 None Full Exam - General 1994 Respiratory respiratory effort/rhythm Overall: normal rate 07/19/2014 None Full Exam - General 1994 Cardiovascular auscultation of heart Overall: regular rate 07/19/2014 None Full Exam - General 1994 Cardiovascular auscultation of heart Overall: normal heart sounds 07/19/2014 None Full Exam - General 1994 Psychiatric orientation/consciousness Overall: oriented to person, place and time 07/19/2014 None Full Exam - General 1994 Eyes conjunctiva/eyelids Overall: conjunctiva clear 07/19/2014 None Full Exam - General 1994 Eyes conjunctiva/eyelids Overall: cornea clear 07/19/2014 None Full Exam - General 1994 Eyes conjunctiva/eyelids Overall: eyelids normal 07/19/2014 None Full Exam - General 1994 Eyes pupils and irises Overall: pupils equal, round, reactive to light and accomodation 07/19/2014 None Full Exam - General 1994 Ears/Nose/Throat otoscopic exam Overall: external auditory canals clear 07/19/2014 None Full Exam - General 1994 Ears/Nose/Throat otoscopic exam Overall: tympanic membranes clear 07/19/2014 None Full Exam - General 1994 Ears/Nose/Throat oral cavity/pharynx/larynx Overall: oral mucosa clear 07/19/2014 None Full Exam - General 1994 Ears/Nose/Throat oral cavity/pharynx/larynx Overall: oropharyngeal mucosa clear 07/19/2014 None Full Exam - General 1994 Ears/Nose/Throat oral cavity/pharynx/larynx Overall: no masses 07/19/2014 None Full Exam - General 1994 Cardiovascular auscultation of heart Overall: no murmurs 07/19/2014 None Full Exam - General 1994 Lymphatic neck nodes Overall: anterior cervical chain benign 07/19/2014 None Full Exam - General 1994 Lymphatic neck nodes Overall: posterior cervical chain benign 07/19/2014 None Full Exam - General 1994 Constitutional general appearance Overall: well developed 06/17/2014 None Full Exam - General 1994 Constitutional general appearance Overall: in no acute distress 06/17/2014 None Full Exam - General 1994 Constitutional general appearance Overall: well nourished 06/17/2014 None Full Exam - General 1994 Respiratory auscultation Overall: breath sounds clear bilaterally 06/17/2014 None Full Exam - General 1994 Respiratory respiratory effort/rhythm Overall: no retractions 06/17/2014 None Full Exam - General 1994 Respiratory respiratory effort/rhythm Overall: normal rate 06/17/2014 None Full Exam - General 1994 Cardiovascular auscultation of heart Overall: regular rate 06/17/2014 None Full Exam - General 1994 Cardiovascular auscultation of heart Overall: normal heart sounds 06/17/2014 None Full Exam - General 1994 Psychiatric orientation/consciousness Overall: oriented to person, place and time 06/17/2014 None Full Exam - General 1994 Musculoskeletal lower extremity Inspection - lower leg: normal appearance 06/17/2014 None Full Exam - General 1994 Musculoskeletal lower extremity Inspection - ankle: swelling @ lateral malleolus 06/17/2014 None Full Exam - General 1994 Musculoskeletal lower extremity Palpation - ankle: a normal exam 06/17/2014 None Full Exam - General 1994 Musculoskeletal lower extremity ROM - ankle: pain with eversion 06/17/2014 None Full Exam - General 1994 Musculoskeletal lower extremity ROM - ankle: pain with inversion 06/17/2014 None Full Exam - General 1994 Musculoskeletal lower extremity Stability - ankle: a normal exam 06/17/2014 None Full Exam - General 1994 Constitutional general appearance Overall: well developed 04/19/2014 None Full Exam - General 1994 Constitutional general appearance Overall: in no acute distress 04/19/2014 None Full Exam - General 1994 Constitutional general appearance Overall: well nourished 04/19/2014 None Full Exam - General 1994 Psychiatric orientation/consciousness Overall: oriented to person, place and time 04/19/2014 None Full Exam - General 1994 Respiratory auscultation Overall: breath sounds clear bilaterally 04/19/2014 None Full Exam - General 1994 Respiratory respiratory effort/rhythm Overall: normal rate 04/19/2014 None Full Exam - General 1994 Respiratory respiratory effort/rhythm Overall: no retractions 04/19/2014 None Full Exam - General 1994 Cardiovascular auscultation of heart Overall: regular rate 04/19/2014 None Full Exam - General 1994 Cardiovascular auscultation of heart Overall: normal heart sounds 04/19/2014 None Full Exam - General 1994 Constitutional general appearance Overall: well developed 04/11/2014 None Full Exam - General 1994 Constitutional general appearance Overall: in no acute distress 04/11/2014 None Full Exam - General 1994 Constitutional general appearance Overall: well nourished 04/11/2014 None Full Exam - General 1994 Eyes conjunctiva/eyelids Overall: conjunctiva clear 04/11/2014 None Full Exam - General 1994 Eyes conjunctiva/eyelids Overall: cornea clear 04/11/2014 None Full Exam - General 1994 Eyes conjunctiva/eyelids Overall: eyelids normal 04/11/2014 None Full Exam - General 1994 Eyes pupils and irises Overall: pupils equal, round, reactive to light and accomodation 04/11/2014 None Full Exam - General 1994 Ears/Nose/Throat otoscopic exam Overall: external auditory canals clear 04/11/2014 None Full Exam - General 1994 Ears/Nose/Throat otoscopic exam Overall: tympanic membranes clear 04/11/2014 None Full Exam - General 1994 Ears/Nose/Throat oral cavity/pharynx/larynx Overall: oral mucosa clear 04/11/2014 None Full Exam - General 1994 Ears/Nose/Throat oral cavity/pharynx/larynx Overall: oropharyngeal mucosa clear 04/11/2014 None Full Exam - General 1994 Ears/Nose/Throat oral cavity/pharynx/larynx Overall: no masses 04/11/2014 None Full Exam - General 1994 Respiratory auscultation Overall: breath sounds clear bilaterally 04/11/2014 None Full Exam - General 1994 Respiratory respiratory effort/rhythm Overall: no retractions 04/11/2014 None Full Exam - General 1994 Respiratory respiratory effort/rhythm Overall: normal rate 04/11/2014 None Full Exam - General 1994 Cardiovascular auscultation of heart Overall: regular rate 04/11/2014 None Full Exam - General 1994 Cardiovascular auscultation of heart Overall: normal heart sounds 04/11/2014 None Full Exam - General 1994 Cardiovascular auscultation of heart Overall: no murmurs 04/11/2014 None Full Exam - General 1994 Lymphatic neck nodes Overall: anterior cervical chain benign 04/11/2014 None Full Exam - General 1994 Lymphatic neck nodes Overall: posterior cervical chain benign 04/11/2014 None Full Exam - General 1994 Psychiatric orientation/consciousness Overall: oriented to person, place and time 04/11/2014 None Full Exam - General 1994 Constitutional general appearance Overall: well developed 03/10/2014 None Full Exam - General 1994 Constitutional general appearance Overall: in no acute distress 03/10/2014 None Full Exam - General 1994 Constitutional general appearance Overall: well nourished 03/10/2014 None Full Exam - General 1994 Eyes conjunctiva/eyelids Overall: conjunctiva clear 03/10/2014 None Full Exam - General 1994 Eyes conjunctiva/eyelids Overall: cornea clear 03/10/2014 None Full Exam - General 1994 Eyes conjunctiva/eyelids Overall: eyelids normal 03/10/2014 None Full Exam - General 1994 Eyes pupils and irises Overall: pupils equal, round, reactive to light and accomodation 03/10/2014 None Full Exam - General 1994 Ears/Nose/Throat otoscopic exam Overall: external auditory canals clear 03/10/2014 None Full Exam - General 1994 Ears/Nose/Throat otoscopic exam Overall: tympanic membranes clear 03/10/2014 None Full Exam - General 1994 Ears/Nose/Throat oral cavity/pharynx/larynx Overall: oral mucosa clear 03/10/2014 None Full Exam - General 1994 Ears/Nose/Throat oral cavity/pharynx/larynx Overall: oropharyngeal mucosa clear 03/10/2014 None Full Exam - General 1994 Ears/Nose/Throat oral cavity/pharynx/larynx Overall: no masses 03/10/2014 None Full Exam - General 1994 Respiratory auscultation Overall: breath sounds clear bilaterally 03/10/2014 None Full Exam - General 1994 Respiratory respiratory effort/rhythm Overall: no retractions 03/10/2014 None Full Exam - General 1994 Respiratory respiratory effort/rhythm Overall: normal rate 03/10/2014 None Full Exam - General 1994 Cardiovascular auscultation of heart Overall: regular rate 03/10/2014 None Full Exam - General 1994 Cardiovascular auscultation of heart Overall: normal heart sounds 03/10/2014 None Full Exam - General 1994 Cardiovascular auscultation of heart Overall: no murmurs 03/10/2014 None Full Exam - General 1994 Lymphatic neck nodes Overall: anterior cervical chain benign 03/10/2014 None Full Exam - General 1994 Lymphatic neck nodes Overall: posterior cervical chain benign 03/10/2014 None Full Exam - General 1994 Psychiatric orientation/consciousness Overall: oriented to person, place and time 03/10/2014 None Full Exam - General 1994 Constitutional general appearance Overall: well developed 02/02/2014 None Full Exam - General 1994 Constitutional general appearance Overall: in no acute distress 02/02/2014 None Full Exam - General 1994 Constitutional general appearance Overall: well nourished 02/02/2014 None Full Exam - General 1994 Eyes conjunctiva/eyelids Overall: conjunctiva clear 02/02/2014 None Full Exam - General 1994 Eyes conjunctiva/eyelids Overall: cornea clear 02/02/2014 None Full Exam - General 1994 Eyes conjunctiva/eyelids Overall: eyelids normal 02/02/2014 None Full Exam - General 1994 Eyes pupils and irises Overall: pupils equal, round, reactive to light and accomodation 02/02/2014 None Full Exam - General 1994 Ears/Nose/Throat otoscopic exam Overall: external auditory canals clear 02/02/2014 None Full Exam - General 1994 Ears/Nose/Throat otoscopic exam Overall: tympanic membranes clear 02/02/2014 None Full Exam - General 1994 Ears/Nose/Throat oral cavity/pharynx/larynx Overall: oral mucosa clear 02/02/2014 None Full Exam - General 1994 Ears/Nose/Throat oral cavity/pharynx/larynx Overall: oropharyngeal mucosa clear 02/02/2014 None Full Exam - General 1994 Ears/Nose/Throat oral cavity/pharynx/larynx Overall: no masses 02/02/2014 None Full Exam - General 1994 Respiratory auscultation Overall: breath sounds clear bilaterally 02/02/2014 None Full Exam - General 1994 Respiratory respiratory effort/rhythm Overall: no retractions 02/02/2014 None Full Exam - General 1994 Respiratory respiratory effort/rhythm Overall: normal rate 02/02/2014 None Full Exam - General 1994 Cardiovascular auscultation of heart Overall: regular rate 02/02/2014 None Full Exam - General 1994 Cardiovascular auscultation of heart Overall: normal heart sounds 02/02/2014 None Full Exam - General 1994 Cardiovascular auscultation of heart Overall: no murmurs 02/02/2014 None Full Exam - General 1994 Psychiatric orientation/consciousness Overall: oriented to person, place and time 02/02/2014 None Full Exam - General 1994 Lymphatic neck nodes Overall: anterior cervical chain benign 02/02/2014 None Full Exam - General 1994 Lymphatic neck nodes Overall: posterior cervical chain benign 02/02/2014 None Full Exam - General 1994 Constitutional general appearance Overall: well developed 10/25/2013 None Full Exam - General 1994 Constitutional general appearance Overall: in no acute distress 10/25/2013 None Full Exam - General 1994 Constitutional general appearance Overall: well nourished 10/25/2013 None Full Exam - General 1994 Eyes conjunctiva/eyelids Overall: conjunctiva clear 10/25/2013 None Full Exam - General 1994 Eyes conjunctiva/eyelids Overall: cornea clear 10/25/2013 None Full Exam - General 1994 Eyes conjunctiva/eyelids Overall: eyelids normal 10/25/2013 None Full Exam - General 1994 Eyes pupils and irises Overall: pupils equal, round, reactive to light and accomodation 10/25/2013 None Full Exam - General 1994 Ears/Nose/Throat otoscopic exam Overall: external auditory canals clear 10/25/2013 None Full Exam - General 1994 Ears/Nose/Throat otoscopic exam Overall: tympanic membranes clear 10/25/2013 None Full Exam - General 1994 Ears/Nose/Throat oral cavity/pharynx/larynx Overall: oral mucosa clear 10/25/2013 None Full Exam - General 1994 Ears/Nose/Throat oral cavity/pharynx/larynx Overall: oropharyngeal mucosa clear 10/25/2013 None Full Exam - General 1994 Ears/Nose/Throat oral cavity/pharynx/larynx Overall: no masses 10/25/2013 None Full Exam - General 1994 Respiratory auscultation Overall: breath sounds clear bilaterally 10/25/2013 None Full Exam - General 1994 Respiratory respiratory effort/rhythm Overall: no retractions 10/25/2013 None Full Exam - General 1994 Respiratory respiratory effort/rhythm Overall: normal rate 10/25/2013 None Full Exam - General 1994 Cardiovascular auscultation of heart Overall: regular rate 10/25/2013 None Full Exam - General 1994 Cardiovascular auscultation of heart Overall: normal heart sounds 10/25/2013 None Full Exam - General 1994 Cardiovascular auscultation of heart Overall: no murmurs 10/25/2013 None Full Exam - General 1994 Psychiatric orientation/consciousness Overall: oriented to person, place and time 10/25/2013 None Full Exam - General 1994 Integument inspection of skin Dermatitis: erythema 10/25/2013 irritation of the skin ar ound the site of bandaid Full Exam - General 1994 Abdomen abdominal exam Overall: no tenderness 10/25/2013 None Full Exam - General 1994 Abdomen abdominal exam Overall: normal bowel sounds 10/25/2013 None Full Exam - General 1995 Constitutional general appearance Overall: well nourished 08/24/2013 None Full Exam - General 1995 Constitutional general appearance Overall: well developed 08/24/2013 None Full Exam - General 1995 Constitutional general appearance Overall: in no acute distress 08/24/2013 None Full Exam - General 1994 Eyes pupils and irises Overall: pupils equal, round, reactive to light and accomodation 08/24/2013 None Full Exam - General 1995 Eyes conjunctiva/eyelids Overall: conjunctiva clear 08/24/2013 None Full Exam - General 1995 Eyes conjunctiva/eyelids Overall: eyelids normal 08/24/2013 None Full Exam - General 1995 Eyes conjunctiva/eyelids Overall: cornea clear 08/24/2013 None Full Exam - General 1995 Ears/Nose/Throat oral cavity/pharynx/larynx Overall: oropharyngeal mucosa clear 08/24/2013 None Full Exam - General 1995 Ears/Nose/Throat oral cavity/pharynx/larynx Overall: no masses 08/24/2013 None Full Exam - General 1995 Ears/Nose/Throat oral cavity/pharynx/larynx Overall: oral mucosa clear 08/24/2013 None Full Exam - General 1995 Ears/Nose/Throat otoscopic exam Overall: tympanic membranes clear 08/24/2013 None Full Exam - General 1995 Ears/Nose/Throat otoscopic exam Overall: external auditory canals clear 08/24/2013 None Full Exam - General 1994 Respiratory respiratory effort/rhythm Overall: normal rate 08/24/2013 None Full Exam - General 1994 Respiratory respiratory effort/rhythm Overall: no retractions 08/24/2013 None Full Exam - General 1994 Respiratory auscultation Overall: breath sounds clear bilaterally 08/24/2013 None Full Exam - General 1994 Cardiovascular auscultation of heart Overall: regular rate 08/24/2013 None Full Exam - General 1994 Cardiovascular auscultation of heart Overall: normal heart sounds 08/24/2013 None Full Exam - General 1994 Cardiovascular auscultation of heart Overall: no murmurs 08/24/2013 None Full Exam - General 1994 Psychiatric orientation/consciousness Overall: oriented to person, place and time 08/24/2013 None Full Exam - General 1994 Cardiovascular extremities Edema present: pitting 08/24/2013 1-2+ at ankles Full Exam - General 1994 Constitutional general appearance Overall: well developed 07/26/2013 None Full Exam - General 1995 Constitutional general appearance Overall: in no acute distress 07/26/2013 None Full Exam - General 1995 Constitutional general appearance Overall: well nourished 07/26/2013 None Full Exam - General 1995 Eyes conjunctiva/eyelids Overall: conjunctiva clear 07/26/2013 None Full Exam - General 1995 Eyes conjunctiva/eyelids Overall: cornea clear 07/26/2013 None Full Exam - General 1995 Eyes conjunctiva/eyelids Overall: eyelids normal 07/26/2013 None Full Exam - General 1995 Eyes pupils and irises Overall: pupils equal, round, reactive to light and accomodation 07/26/2013 None Full Exam - General 1995 Ears/Nose/Throat otoscopic exam Overall: external auditory canals clear 07/26/2013 None Full Exam - General 1995 Ears/Nose/Throat otoscopic exam Overall: tympanic membranes clear 07/26/2013 None Full Exam - General 1995 Ears/Nose/Throat oral cavity/pharynx/larynx Overall: oral mucosa clear 07/26/2013 None Full Exam - General 1995 Ears/Nose/Throat oral cavity/pharynx/larynx Overall: oropharyngeal mucosa clear 07/26/2013 None Full Exam - General 1995 Ears/Nose/Throat oral cavity/pharynx/larynx Overall: no masses 07/26/2013 None Full Exam - General 1994 Respiratory auscultation Overall: breath sounds clear bilaterally 07/26/2013 None Full Exam - General 1994 Respiratory respiratory effort/rhythm Overall: no retractions 07/26/2013 None Full Exam - General 1994 Respiratory respiratory effort/rhythm Overall: normal rate 07/26/2013 None Full Exam - General 1994 Cardiovascular auscultation of heart Overall: regular rate 07/26/2013 None Full Exam - General 1994 Cardiovascular auscultation of heart Overall: normal heart sounds 07/26/2013 None Full Exam - General 1994 Cardiovascular auscultation of heart Overall: no murmurs 07/26/2013 None Full Exam - General 1994 Psychiatric orientation/consciousness Overall: oriented to person, place and time 07/26/2013 None Full Exam - General 1994 Constitutional general appearance Overall: well developed 06/30/2013 None Full Exam - General 1994 Constitutional general appearance Overall: in no acute distress 06/30/2013 None Full Exam - General 1994 Constitutional general appearance Overall: well nourished 06/30/2013 None Full Exam - General 1995 Ears/Nose/Throat oral cavity/pharynx/larynx Overall: oral mucosa clear 06/30/2013 None Full Exam - General 1995 Ears/Nose/Throat oral cavity/pharynx/larynx Overall: oropharyngeal mucosa clear 06/30/2013 None Full Exam - General 1995 Ears/Nose/Throat oral cavity/pharynx/larynx Overall: no masses 06/30/2013 None Full Exam - General 1995 Respiratory auscultation Overall: breath sounds clear bilaterally 06/30/2013 None Full Exam - General 1994 Respiratory respiratory effort/rhythm Overall: no retractions 06/30/2013 None Full Exam - General 1995 Respiratory respiratory effort/rhythm Overall: normal rate 06/30/2013 None Full Exam - General 1994 Cardiovascular auscultation of heart Overall: regular rate 06/30/2013 None Full Exam - General 1994 Cardiovascular auscultation of heart Overall: normal heart sounds 06/30/2013 None Full Exam - General 1994 Cardiovascular auscultation of heart Overall: no murmurs 06/30/2013 None Full Exam - General 1994 Psychiatric orientation/consciousness Overall: oriented to person, place and time 06/30/2013 None Full Exam - General 1994 Psychiatric mood and affect Overall: normal mood and affect 06/30/2013 None Full Exam - General 1994 Psychiatric mood and affect Mood: happy 06/30/2013 None Full Exam - General 1994 Neurologic cranial nerves Overall: crainial nerves 2 - 12 grossly intact 06/30/2013 None Full Exam - General 1994 Eyes pupils and irises Overall: pupils equal, round, reactive to light and accomodation 06/30/2013 with horizontal and vertical nystagmus Full Exam - General 1994 Constitutional general appearance Overall: well developed 06/24/2013 None Full Exam - General 1994 Constitutional general appearance Overall: in no acute distress 06/24/2013 None Full Exam - General 1994 Constitutional general appearance Overall: well nourished 06/24/2013 None Full Exam - General 1994 Eyes pupils and irises Overall: pupils equal, round, reactive to light and accomodation 06/24/2013 None Full Exam - General 1994 Ears/Nose/Throat oral cavity/pharynx/larynx Overall: oral mucosa clear 06/24/2013 None Full Exam - General 1995 Ears/Nose/Throat oral cavity/pharynx/larynx Overall: oropharyngeal mucosa clear 06/24/2013 None Full Exam - General 1994 Ears/Nose/Throat oral cavity/pharynx/larynx Overall: no masses 06/24/2013 None Full Exam - General 1994 Respiratory auscultation Overall: breath sounds clear bilaterally 06/24/2013 None Full Exam - General 1994 Respiratory respiratory effort/rhythm Overall: no retractions 06/24/2013 None Full Exam - General 1994 Respiratory respiratory effort/rhythm Overall: normal rate 06/24/2013 None Full Exam - General 1994 Cardiovascular auscultation of heart Overall: regular rate 06/24/2013 None Full Exam - General 1994 Cardiovascular auscultation of heart Overall: normal heart sounds 06/24/2013 None Full Exam - General 1994 Cardiovascular auscultation of heart Overall: no murmurs 06/24/2013 None Full Exam - General 1994 Abdomen abdominal exam Overall: no tenderness 06/24/2013 None Full Exam - General 1994 Abdomen abdominal exam Overall: normal bowel sounds 06/24/2013 None Full Exam - General 1994 Psychiatric orientation/consciousness Overall: oriented to person, place and time 06/24/2013 None Full Exam - General 1994 Psychiatric mood and affect Overall: normal mood and affect 06/24/2013 None Full Exam - General 1994 Psychiatric mood and affect Mood: happy 06/24/2013 None Full Exam - General 1994 Cardiovascular extremities Overall: no clubbing 06/24/2013 None Full Exam - General 1994 Cardiovascular auscultation of heart Overall: no murmurs 12/01/2012 None Full Exam - General 1994 Abdomen abdominal exam Overall: no tenderness 12/01/2012 None Full Exam - General 1994 Abdomen abdominal exam Overall: normal bowel sounds 12/01/2012 None Full Exam - General 1994 Psychiatric orientation/consciousness Overall: oriented to person, place and time 12/01/2012 None Full Exam - General 1994 Psychiatric mood and affect Overall: normal mood and affect 12/01/2012 None Full Exam - General 1994 Psychiatric mood and affect Mood: happy 12/01/2012 None Full Exam - General 1994 Musculoskeletal lower extremity Overall: knee benign 12/01/2012 None Full Exam - General 1994 Musculoskeletal lower extremity Inspection - knee: presence of a scar 12/01/2012 None Full Exam - General 1994 Musculoskeletal lower extremity Palpation - thigh: tenderness 12/01/2012 None Full Exam - General 1994 Musculoskeletal lower extremity Inspection - lower leg: swelling 12/01/2012 None Full Exam - General 1994 Musculoskeletal head and neck Overall: cervical spine benign 12/01/2012 None Full Exam - General 1994 Musculoskeletal head and neck Overall: head atraumatic 12/01/2012 None Full Exam - General 1994 Neurologic cranial nerves Overall: crainial nerves 2 - 12 grossly intact 12/01/2012 None Full Exam - General 1994 Constitutional general appearance Overall: well developed 12/01/2012 None Full Exam - General 1994 Constitutional general appearance Overall: in no acute distress 12/01/2012 None Full Exam - General 1994 Constitutional general appearance Overall: well nourished 12/01/2012 None Full Exam - General 1994 Eyes pupils and irises Overall: pupils equal, round, reactive to light and accomodation 12/01/2012 None Full Exam - General 1995 Ears/Nose/Throat oral cavity/pharynx/larynx Overall: oral mucosa clear 12/01/2012 None Full Exam - General 1995 Ears/Nose/Throat oral cavity/pharynx/larynx Overall: oropharyngeal mucosa clear 12/01/2012 None Full Exam - General 1995 Ears/Nose/Throat oral cavity/pharynx/larynx Overall: no masses 12/01/2012 None Full Exam - General 1994 Respiratory auscultation Overall: breath sounds clear bilaterally 12/01/2012 None Full Exam - General 1994 Respiratory respiratory effort/rhythm Overall: no retractions 12/01/2012 None Full Exam - General 1994 Respiratory respiratory effort/rhythm Overall: normal rate 12/01/2012 None Full Exam - General 1994 Cardiovascular extremities Edema present: pitting 12/01/2012 None Full Exam - General 1994 Cardiovascular extremities Edema present: severity 1+ - 4+: 1-2+ 12/01/2012 None Full Exam - General 1994 Cardiovascular extremities Edema present: to knees 12/01/2012 None Full Exam - General 1994 Cardiovascular auscultation of heart Overall: regular rate 12/01/2012 None Full Exam - General 1994 Cardiovascular auscultation of heart Overall: normal heart sounds 12/01/2012 None Full Exam - General 1994 Constitutional general appearance Overall: well nourished 10/19/2012 None Full Exam - General 1994 Constitutional general appearance Overall: well developed 10/19/2012 None Full Exam - General 1994 Constitutional general appearance Overall: in no acute distress 10/19/2012 None Full Exam - General 1994 Respiratory auscultation Overall: breath sounds clear bilaterally 10/19/2012 None Full Exam - General 1994 Respiratory respiratory effort/rhythm Overall: normal rate 10/19/2012 None Full Exam - General 1994 Respiratory respiratory effort/rhythm Overall: no retractions 10/19/2012 None Full Exam - General 1994 Cardiovascular auscultation of heart Overall: regular rate 10/19/2012 None Full Exam - General 1994 Cardiovascular auscultation of heart Overall: normal heart sounds 10/19/2012 None Full Exam - General 1994 Cardiovascular auscultation of heart Overall: no murmurs 10/19/2012 None Full Exam - General 1994 Psychiatric orientation/consciousness Overall: oriented to person, place and time 10/19/2012 None Full Exam - General 1994 Integument inspection of skin Dermatitis: erythema 10/19/2012 None Full Exam - General 1994 Integument inspection of skin Location: left leg 10/19/2012 None Full Exam - General 1994 Integument inspection of skin Rash/Lesions: vesicle 10/19/2012 None Full Exam - General 1994 Psychiatric orientation/consciousness Overall: oriented to person, place and time 10/07/2012 None Full Exam - General 1994 Psychiatric mood and affect Overall: normal mood and affect 10/07/2012 None Full Exam - General 1994 Psychiatric mood and affect Mood: happy 10/07/2012 None Full Exam - General 1994 Cardiovascular extremities Edema present: pitting 10/07/2012 None Full Exam - General 1994 Cardiovascular extremities Edema present: severity 1+ - 4+: 1-2+ 10/07/2012 None Full Exam - General 1994 Cardiovascular extremities Edema present: to knees 10/07/2012 None Full Exam - General 1994 Constitutional general appearance Overall: well developed 10/07/2012 None Full Exam - General 1994 Constitutional general appearance Overall: in no acute distress 10/07/2012 None Full Exam - General 1994 Constitutional general appearance Overall: well nourished 10/07/2012 None Full Exam - General 1994 Eyes pupils and irises Overall: pupils equal, round, reactive to light and accomodation 10/07/2012 None Full Exam - General 1994 Ears/Nose/Throat oral cavity/pharynx/larynx Overall: oral mucosa clear 10/07/2012 None Full Exam - General 1994 Ears/Nose/Throat oral cavity/pharynx/larynx Overall: oropharyngeal mucosa clear 10/07/2012 None Full Exam - General 1994 Ears/Nose/Throat oral cavity/pharynx/larynx Overall: no masses 10/07/2012 None Full Exam - General 1994 Respiratory auscultation Overall: breath sounds clear bilaterally 10/07/2012 None Full Exam - General 1994 Respiratory respiratory effort/rhythm Overall: no retractions 10/07/2012 None Full Exam - General 1994 Respiratory respiratory effort/rhythm Overall: normal rate 10/07/2012 None Full Exam - General 1994 Cardiovascular auscultation of heart Overall: regular rate 10/07/2012 None Full Exam - General 1994 Cardiovascular auscultation of heart Overall: normal heart sounds 10/07/2012 None Full Exam - General 1994 Cardiovascular auscultation of heart Overall: no murmurs 10/07/2012 None Full Exam - General 1994 Abdomen abdominal exam Overall: no tenderness 10/07/2012 None Full Exam - General 1994 Abdomen abdominal exam Overall: normal bowel sounds 10/07/2012 None Full Exam - General 1994 Constitutional general appearance Overall: well developed 2012 None Full Exam - General 1994 Constitutional general appearance Overall: in no acute distress 2012 None Full Exam - General 1994 Constitutional general appearance Overall: well nourished 2012 None Full Exam - General 1994 Eyes pupils and irises Overall: pupils equal, round, reactive to light and accomodation 2012 None Full Exam - General 1994 Ears/Nose/Throat oral cavity/pharynx/larynx Overall: oral mucosa clear 2012 None Full Exam - General 1994 Ears/Nose/Throat oral cavity/pharynx/larynx Overall: oropharyngeal mucosa clear 2012 None Full Exam - General 1994 Ears/Nose/Throat oral cavity/pharynx/larynx Overall: no masses 2012 None Full Exam - General 1994 Respiratory auscultation Overall: breath sounds clear bilaterally 2012 None Full Exam - General 1994 Respiratory respiratory effort/rhythm Overall: no retractions 2012 None Full Exam - General 1994 Respiratory respiratory effort/rhythm Overall: normal rate 2012 None Full Exam - General 1994 Cardiovascular auscultation of heart Overall: regular rate 2012 None Full Exam - General 1994 Cardiovascular auscultation of heart Overall: normal heart sounds 2012 None Full Exam - General 1994 Cardiovascular auscultation of heart Overall: no murmurs 2012 None Full Exam - General 1994 Abdomen abdominal exam Overall: no tenderness 2012 None Full Exam - General 1994 Abdomen abdominal exam Overall: normal bowel sounds 2012 None Full Exam - General 1994 Psychiatric orientation/consciousness Overall: oriented to person, place and time 2012 None Full Exam - General 1994 Psychiatric mood and affect Overall: normal mood and affect 2012 None Full Exam - General 1994 Psychiatric mood and affect Mood: happy 2012 None Full Exam - General 1994 Constitutional general appearance Overall: well nourished 08/18/2012 None Full Exam - General 1994 Constitutional general appearance Overall: well developed 08/18/2012 None Full Exam - General 1994 Psychiatric mood and affect Overall: normal mood and affect 08/18/2012 None Full Exam - General 1994 Constitutional general appearance Overall: in no acute distress 08/18/2012 None Full Exam - General 1994 Ears/Nose/Throat oral cavity/pharynx/larynx Overall: oropharyngeal mucosa clear 08/18/2012 None Full Exam - General 1994 Ears/Nose/Throat oral cavity/pharynx/larynx Overall: no masses 08/18/2012 None Full Exam - General 1994 Ears/Nose/Throat oral cavity/pharynx/larynx Overall: oral mucosa clear 08/18/2012 None Full Exam - General 1994 Eyes pupils and irises Overall: pupils equal, round, reactive to light and accomodation 08/18/2012 None Full Exam - General 1994 Respiratory respiratory effort/rhythm Overall: normal rate 08/18/2012 None Full Exam - General 1994 Respiratory respiratory effort/rhythm Overall: no retractions 08/18/2012 None Full Exam - General 1994 Respiratory auscultation Overall: breath sounds clear bilaterally 08/18/2012 None Full Exam - General 1994 Cardiovascular auscultation of heart Overall: regular rate 08/18/2012 None Full Exam - General 1994 Cardiovascular auscultation of heart Overall: normal heart sounds 08/18/2012 None Full Exam - General 1994 Cardiovascular auscultation of heart Overall: no murmurs 08/18/2012 None Full Exam - General 1994 Psychiatric orientation/consciousness Overall: oriented to person, place and time 08/18/2012 None Full Exam - General 1994 Psychiatric mood and affect Mood: happy 08/18/2012 None Full Exam - General 1994 Cardiovascular auscultation of heart Overall: regular rate 08/04/2012 None Full Exam - General 1994 Cardiovascular auscultation of heart Overall: normal heart sounds 08/04/2012 None Full Exam - General 1994 Cardiovascular auscultation of heart Overall: no murmurs 08/04/2012 None Full Exam - General 1994 Psychiatric orientation/consciousness Overall: oriented to person, place and time 08/04/2012 None Full Exam - General 1994 Psychiatric mood and affect Overall: normal mood and affect 08/04/2012 None Full Exam - General 1994 Psychiatric mood and affect Mood: happy 08/04/2012 None Full Exam - General 1994 Abdomen abdominal exam Overall: no tenderness 08/04/2012 None Full Exam - General 1994 Abdomen abdominal exam Overall: normal bowel sounds 08/04/2012 None Full Exam - General 1994 Constitutional general appearance Overall: well developed 08/04/2012 None Full Exam - General 1994 Constitutional general appearance Overall: in no acute distress 08/04/2012 None Full Exam - General 1994 Constitutional general appearance Overall: well nourished 08/04/2012 None Full Exam - General 1994 Eyes pupils and irises Overall: pupils equal, round, reactive to light and accomodation 08/04/2012 None Full Exam - General 1994 Ears/Nose/Throat oral cavity/pharynx/larynx Overall: oral mucosa clear 08/04/2012 None Full Exam - General 1994 Ears/Nose/Throat oral cavity/pharynx/larynx Overall: oropharyngeal mucosa clear 08/04/2012 None Full Exam - General 1995 Ears/Nose/Throat oral cavity/pharynx/larynx Overall: no masses 08/04/2012 None Full Exam - General 1994 Respiratory auscultation Overall: breath sounds clear bilaterally 08/04/2012 None Full Exam - General 1994 Respiratory respiratory effort/rhythm Overall: no retractions 08/04/2012 None Full Exam - General 1994 Respiratory respiratory effort/rhythm Overall: normal rate 08/04/2012 None Full Exam - General 1994 Constitutional general appearance Overall: well developed 07/01/2012 None Full Exam - General 1994 Constitutional general appearance Overall: in no acute distress 07/01/2012 None Full Exam - General 1994 Constitutional general appearance Overall: well nourished 07/01/2012 None Full Exam - General 1994 Eyes pupils and irises Overall: pupils equal, round, reactive to light and accomodation 07/01/2012 None Full Exam - General 1994 Ears/Nose/Throat otoscopic exam External auditory canal: minimal cerumen 07/01/2012 None Full Exam - General 1995 Ears/Nose/Throat oral cavity/pharynx/larynx Overall: oral mucosa clear 07/01/2012 None Full Exam - General 1995 Ears/Nose/Throat oral cavity/pharynx/larynx Overall: oropharyngeal mucosa clear 07/01/2012 None Full Exam - General 1994 Ears/Nose/Throat oral cavity/pharynx/larynx Overall: no masses 07/01/2012 None Full Exam - General 1994 Respiratory auscultation Overall: breath sounds clear bilaterally 07/01/2012 None Full Exam - General 1994 Respiratory respiratory effort/rhythm Overall: no retractions 07/01/2012 None Full Exam - General 1994 Respiratory respiratory effort/rhythm Overall: normal rate 07/01/2012 None Full Exam - General 1994 Cardiovascular auscultation of heart Overall: regular rate 07/01/2012 None Full Exam - General 1994 Cardiovascular auscultation of heart Overall: normal heart sounds 07/01/2012 None Full Exam - General 1994 Cardiovascular auscultation of heart Overall: no murmurs 07/01/2012 None Full Exam - General 1994 Abdomen abdominal exam Overall: no tenderness 07/01/2012 None Full Exam - General 1994 Abdomen abdominal exam Overall: normal bowel sounds 07/01/2012 None Full Exam - General 1994 Musculoskeletal head and neck Overall: head atraumatic 07/01/2012 None Full Exam - General 1994 Musculoskeletal head and neck Cervical Spine: presence of a scar 07/01/2012 anterior neck on the left Full Exam - General 1994 Musculoskeletal head and neck Cervical Spine: decreased flexion 07/01/2012 None Full Exam - General 1994 Neurologic gait Overall: no ataxia, no unsteadiness 07/01/2012 None Full Exam - General 1994 Psychiatric orientation/consciousness Overall: oriented to person, place and time 07/01/2012 None Full Exam - General 1994 Psychiatric mood and affect Overall: normal mood and affect 07/01/2012 None Full Exam - General 1994 Psychiatric mood and affect Mood: happy 07/01/2012 None Full Exam - General 1994 Musculoskeletal head and neck Cervical Spine: decreased extension 07/01/2012 None Full Exam - General 1994 Constitutional general appearance Overall: well developed 05/20/2012 None Full Exam - General 1994 Constitutional general appearance Overall: in no acute distress 05/20/2012 None Full Exam - General 1994 Constitutional general appearance Overall: well nourished 05/20/2012 None Full Exam - General 1994 Eyes pupils and irises Overall: pupils equal, round, reactive to light and accomodation 05/20/2012 None Full Exam - General 1994 Ears/Nose/Throat otoscopic exam External auditory canal: minimal cerumen 05/20/2012 None Full Exam - General 1995 Ears/Nose/Throat oral cavity/pharynx/larynx Overall: oral mucosa clear 05/20/2012 None Full Exam - General 1994 Ears/Nose/Throat oral cavity/pharynx/larynx Overall: oropharyngeal mucosa clear 05/20/2012 None Full Exam - General 1994 Ears/Nose/Throat oral cavity/pharynx/larynx Overall: no masses 05/20/2012 None Full Exam - General 1994 Respiratory auscultation Overall: breath sounds clear bilaterally 05/20/2012 None Full Exam - General 1994 Respiratory respiratory effort/rhythm Overall: no retractions 05/20/2012 None Full Exam - General 1994 Respiratory respiratory effort/rhythm Overall: normal rate 05/20/2012 None Full Exam - General 1994 Cardiovascular auscultation of heart Overall: regular rate 05/20/2012 None Full Exam - General 1994 Cardiovascular auscultation of heart Overall: normal heart sounds 05/20/2012 None Full Exam - General 1994 Cardiovascular auscultation of heart Overall: no murmurs 05/20/2012 None Full Exam - General 1994 Abdomen abdominal exam Overall: no tenderness 05/20/2012 None Full Exam - General 1994 Abdomen abdominal exam Overall: normal bowel sounds 05/20/2012 None Full Exam - General 1994 Musculoskeletal head and neck Overall: head atraumatic 05/20/2012 None Full Exam - General 1994 Musculoskeletal head and neck Cervical Spine: presence of a scar 05/20/2012 anterior neck on the left Full Exam - General 1994 Musculoskeletal head and neck Cervical Spine: decreased flexion 05/20/2012 None Full Exam - General 1994 Musculoskeletal head and neck Cervical Spine: decreased extension 05/20/2012 None Full Exam - General 1994 Neurologic gait Overall: no ataxia, no unsteadiness 05/20/2012 None Full Exam - General 1994 Psychiatric orientation/consciousness Overall: oriented to person, place and time 05/20/2012 None Full Exam - General 1994 Psychiatric mood and affect Overall: normal mood and affect 05/20/2012 None Full Exam - General 1994 Psychiatric mood and affect Mood: happy 05/20/2012 None Full Exam - General 1994 Constitutional general appearance Overall: well developed 04/20/2012 None Full Exam - General 1994 Constitutional general appearance Overall: in no acute distress 04/20/2012 None Full Exam - General 1994 Constitutional general appearance Overall: well nourished 04/20/2012 None Full Exam - General 1994 Eyes pupils and irises Overall: pupils equal, round, reactive to light and accomodation 04/20/2012 None Full Exam - General 1994 Ears/Nose/Throat otoscopic exam External auditory canal: minimal cerumen 04/20/2012 None Full Exam - General 1994 Ears/Nose/Throat oral cavity/pharynx/larynx Overall: oral mucosa clear 04/20/2012 None Full Exam - General 1994 Ears/Nose/Throat oral cavity/pharynx/larynx Overall: oropharyngeal mucosa clear 04/20/2012 None Full Exam - General 1994 Ears/Nose/Throat oral cavity/pharynx/larynx Overall: no masses 04/20/2012 None Full Exam - General 1994 Respiratory auscultation Overall: breath sounds clear bilaterally 04/20/2012 None Full Exam - General 1994 Respiratory respiratory effort/rhythm Overall: no retractions 04/20/2012 None Full Exam - General 1994 Respiratory respiratory effort/rhythm Overall: normal rate 04/20/2012 None Full Exam - General 1994 Cardiovascular auscultation of heart Overall: regular rate 04/20/2012 None Full Exam - General 1994 Cardiovascular auscultation of heart Overall: normal heart sounds 04/20/2012 None Full Exam - General 1994 Cardiovascular auscultation of heart Overall: no murmurs 04/20/2012 None Full Exam - General 1994 Abdomen abdominal exam Overall: no tenderness 04/20/2012 None Full Exam - General 1994 Abdomen abdominal exam Overall: normal bowel sounds 04/20/2012 None Full Exam - General 1994 Musculoskeletal head and neck Overall: head atraumatic 04/20/2012 None Full Exam - General 1994 Musculoskeletal head and neck Cervical Spine: presence of a scar 04/20/2012 anterior neck on the left Full Exam - General 1994 Musculoskeletal head and neck Cervical Spine: decreased flexion 04/20/2012 None Full Exam - General 1994 Musculoskeletal head and neck Cervical Spine: decreased extension 04/20/2012 None Full Exam - General 1994 Psychiatric orientation/consciousness Overall: oriented to person, place and time 04/20/2012 None Full Exam - General 1994 Psychiatric mood and affect Overall: normal mood and affect 04/20/2012 None Full Exam - General 1994 Psychiatric mood and affect Mood: happy 04/20/2012 None Full Exam - General 1994 Neurologic gait Overall: no ataxia, no unsteadiness 04/20/2012 None Full Exam - General 1994 Cardiovascular auscultation of heart Overall: regular rate 03/10/2012 None Full Exam - General 1994 Cardiovascular auscultation of heart Overall: normal heart sounds 03/10/2012 None Full Exam - General 1994 Cardiovascular auscultation of heart Overall: no murmurs 03/10/2012 None Full Exam - General 1994 Constitutional general appearance Overall: well developed 03/10/2012 None Full Exam - General 1994 Constitutional general appearance Overall: in no acute distress 03/10/2012 None Full Exam - General 1994 Constitutional general appearance Overall: well nourished 03/10/2012 None Full Exam - General 1994 Ears/Nose/Throat otoscopic exam External auditory canal: minimal cerumen 03/10/2012 None Full Exam - General 1994 Ears/Nose/Throat oral cavity/pharynx/larynx Overall: oral mucosa clear 03/10/2012 None Full Exam - General 1994 Ears/Nose/Throat oral cavity/pharynx/larynx Overall: oropharyngeal mucosa clear 03/10/2012 None Full Exam - General 1994 Ears/Nose/Throat oral cavity/pharynx/larynx Overall: no masses 03/10/2012 None Full Exam - General 1994 Eyes pupils and irises Overall: pupils equal, round, reactive to light and accomodation 03/10/2012 None Full Exam - General 1994 Musculoskeletal head and neck Overall: head atraumatic 03/10/2012 None Full Exam - General 1994 Musculoskeletal head and neck Cervical Spine: presence of a scar 03/10/2012 anterior neck on the left Full Exam - General 1994 Musculoskeletal head and neck Cervical Spine: decreased flexion 03/10/2012 None Full Exam - General 1994 Musculoskeletal head and neck Cervical Spine: decreased extension 03/10/2012 None Full Exam - General 1994 Psychiatric orientation/consciousness Overall: oriented to person, place and time 03/10/2012 None Full Exam - General 1994 Psychiatric mood and affect Overall: normal mood and affect 03/10/2012 None Full Exam - General 1994 Psychiatric mood and affect Mood: happy 03/10/2012 None Full Exam - General 1994 Respiratory auscultation Overall: breath sounds clear bilaterally 03/10/2012 None Full Exam - General 1994 Respiratory respiratory effort/rhythm Overall: no retractions 03/10/2012 None Full Exam - General 1994 Respiratory respiratory effort/rhythm Overall: normal rate 03/10/2012 None Full Exam - General 1994 Abdomen abdominal exam Overall: no tenderness 03/10/2012 None Full Exam - General 1994 Abdomen abdominal exam Overall: normal bowel sounds 03/10/2012 None Full Exam - General 1994 Psychiatric mood and affect Mood: happy 02/25/2012 None Full Exam - General 1994 Respiratory auscultation Overall: breath sounds clear bilaterally 02/25/2012 None Full Exam - General 1994 Respiratory respiratory effort/rhythm Overall: no retractions 02/25/2012 None Full Exam - General 1994 Respiratory respiratory effort/rhythm Overall: normal rate 02/25/2012 None Full Exam - General 1995 Ears/Nose/Throat oral cavity/pharynx/larynx Overall: oral mucosa clear 02/25/2012 None Full Exam - General 1994 Ears/Nose/Throat oral cavity/pharynx/larynx Overall: oropharyngeal mucosa clear 02/25/2012 None Full Exam - General 1995 Ears/Nose/Throat oral cavity/pharynx/larynx Overall: no masses 02/25/2012 None Full Exam - General 1994 Eyes pupils and irises Overall: pupils equal, round, reactive to light and accomodation 02/25/2012 None Full Exam - General 1994 Integument inspection of skin Location: right arm 02/25/2012 None Full Exam - General 1994 Integument inspection of skin Rash/Lesions: ulceration 02/25/2012 starting on the top of th e raised papular lesion on the right upper arm/shoulder Full Exam - General 1994 Integument inspection of skin Rash/Lesions: papule 02/25/2012 None Full Exam - General 1994 Musculoskeletal head and neck Overall: head atraumatic 02/25/2012 None Full Exam - General 1994 Musculoskeletal head and neck Cervical Spine: presence of a scar 02/25/2012 anterior neck on the left Full Exam - General 1994 Musculoskeletal head and neck Cervical Spine: decreased flexion 02/25/2012 None Full Exam - General 1994 Musculoskeletal head and neck Cervical Spine: decreased extension 02/25/2012 None Full Exam - General 1994 Psychiatric orientation/consciousness Overall: oriented to person, place and time 02/25/2012 None Full Exam - General 1994 Psychiatric mood and affect Overall: normal mood and affect 02/25/2012 None Full Exam - General 1994 Cardiovascular auscultation of heart Overall: regular rate 02/25/2012 None Full Exam - General 1994 Cardiovascular auscultation of heart Overall: normal heart sounds 02/25/2012 None Full Exam - General 1994 Cardiovascular auscultation of heart Overall: no murmurs 02/25/2012 None Full Exam - General 1994 Constitutional general appearance Overall: well developed 02/25/2012 None Full Exam - General 1994 Constitutional general appearance Overall: in no acute distress 02/25/2012 None Full Exam - General 1994 Constitutional general appearance Overall: well nourished 02/25/2012 None Full Exam - General 1994 Ears/Nose/Throat otoscopic exam External auditory canal: minimal cerumen 02/25/2012 None Full Exam - General 1994 Ears/Nose/Throat otoscopic exam External auditory canal: complete cerumen impaction 02/25/2012 None Full Exam - General 1994 Ears/Nose/Throat otoscopic exam Tympanic membrane: a normal exam 02/25/2012 None Full Exam - General 1994 Cardiovascular auscultation of heart Overall: regular rate 02/19/2012 None Full Exam - General 1994 Cardiovascular auscultation of heart Overall: normal heart sounds 02/19/2012 None Full Exam - General 1994 Cardiovascular auscultation of heart Overall: no murmurs 02/19/2012 None Full Exam - General 1994 Constitutional general appearance Overall: well developed 02/19/2012 None Full Exam - General 1994 Constitutional general appearance Overall: in no acute distress 02/19/2012 None Full Exam - General 1994 Constitutional general appearance Overall: well nourished 02/19/2012 None Full Exam - General 1994 Ears/Nose/Throat otoscopic exam External auditory canal: complete cerumen impaction 02/19/2012 None Full Exam - General 1994 Ears/Nose/Throat oral cavity/pharynx/larynx Overall: oral mucosa clear 02/19/2012 None Full Exam - General 1994 Ears/Nose/Throat oral cavity/pharynx/larynx Overall: oropharyngeal mucosa clear 02/19/2012 None Full Exam - General 1994 Ears/Nose/Throat oral cavity/pharynx/larynx Overall: no masses 02/19/2012 None Full Exam - General 1994 Integument inspection of skin Location: right arm 02/19/2012 None Full Exam - General 1994 Integument inspection of skin Rash/Lesions: ulceration 02/19/2012 starting on the top of th e raised papular lesion on the right upper arm/shoulder Full Exam - General 1994 Integument inspection of skin Rash/Lesions: papule 02/19/2012 None Full Exam - General 1994 Musculoskeletal head and neck Overall: head atraumatic 02/19/2012 None Full Exam - General 1994 Musculoskeletal head and neck Cervical Spine: presence of a scar 02/19/2012 anterior neck on the left Full Exam - General 1994 Musculoskeletal head and neck Cervical Spine: decreased flexion 02/19/2012 None Full Exam - General 1994 Musculoskeletal head and neck Cervical Spine: decreased extension 02/19/2012 None Full Exam - General 1994 Psychiatric orientation/consciousness Overall: oriented to person, place and time 02/19/2012 None Full Exam - General 1994 Psychiatric mood and affect Overall: normal mood and affect 02/19/2012 None Full Exam - General 1994 Psychiatric mood and affect Mood: happy 02/19/2012 None Full Exam - General 1994 Respiratory auscultation Overall: breath sounds clear bilaterally 02/19/2012 None Full Exam - General 1994 Respiratory respiratory effort/rhythm Overall: no retractions 02/19/2012 None Full Exam - General 1994 Respiratory respiratory effort/rhythm Overall: normal rate 02/19/2012 None Full Exam - General 1994 Eyes pupils and irises Overall: pupils equal, round, reactive to light and accomodation 02/19/2012 None Full Exam - General 1994 Ears/Nose/Throat otoscopic exam External auditory canal: minimal cerumen 02/19/2012 None Full Exam - General 1994 Ears/Nose/Throat otoscopic exam Tympanic membrane: a normal exam 02/19/2012 None Full Exam - General 1994 Constitutional general appearance Development: well developed 01/23/2012 None Full Exam - General 1994 Constitutional general appearance Development: appears stated age 0301/23/2012 None Full Exam - General 1994 Eyes conjunctiva/eyelids Overall: conjunctiva clear 01/23/2012 None Full Exam - General 1994 Eyes pupils and irises Overall: pupils equal, round, reactive to light and accomodation 01/23/2012 None Full Exam - General 1994 Ears/Nose/Throat otoscopic exam Overall: external auditory canals clear 01/23/2012 None Full Exam - General 1994 Ears/Nose/Throat otoscopic exam Overall: tympanic membranes clear 01/23/2012 None Full Exam - General 1994 Ears/Nose/Throat oral cavity/pharynx/larynx Overall: oral mucosa clear 01/23/2012 None Full Exam - General 1994 Respiratory auscultation Diffuse: expiratory wheezes 01/23/2012 None Full Exam - General 1994 Respiratory respiratory effort/rhythm Overall: no retractions 01/23/2012 None Full Exam - General 1994 Respiratory respiratory effort/rhythm Overall: normal rate 01/23/2012 None Full Exam - General 1994 Cardiovascular auscultation of heart Overall: regular rate 01/23/2012 None Full Exam - General 1994 Cardiovascular auscultation of heart Overall: normal heart sounds 01/23/2012 None Full Exam - General 1994 Psychiatric orientation/consciousness Overall: oriented to person, place and time 01/23/2012 None Full Exam - General 1994 Lymphatic neck nodes Overall: anterior cervical chain benign 01/23/2012 None Full Exam - General 1994 Lymphatic neck nodes Overall: posterior cervical chain benign 01/23/2012 None Full Exam - General 1994 Cardiovascular auscultation of heart Overall: normal heart sounds 01/02/2012 None Full Exam - General 1994 Cardiovascular auscultation of heart Overall: no murmurs 01/02/2012 None Full Exam - General 1994 Musculoskeletal head and neck Overall: head atraumatic 01/02/2012 None Full Exam - General 1994 Musculoskeletal head and neck Cervical Spine: presence of a scar 01/02/2012 anterior neck on the left Full Exam - General 1994 Musculoskeletal head and neck Cervical Spine: decreased flexion 01/02/2012 None Full Exam - General 1994 Musculoskeletal head and neck Cervical Spine: decreased extension 01/02/2012 None Full Exam - General 1994 Integument inspection of skin Location: right arm 01/02/2012 None Full Exam - General 1994 Integument inspection of skin Rash/Lesions: ulceration 01/02/2012 starting on the top of th e raised papular lesion on the right upper arm/shoulder Full Exam - General 1994 Constitutional general appearance Overall: well developed 01/02/2012 None Full Exam - General 1994 Constitutional general appearance Overall: in no acute distress 01/02/2012 None Full Exam - General 1994 Constitutional general appearance Overall: well nourished 01/02/2012 None Full Exam - General 1994 Ears/Nose/Throat otoscopic exam External auditory canal: complete cerumen impaction 01/02/2012 None Full Exam - General 1994 Ears/Nose/Throat oral cavity/pharynx/larynx Overall: oral mucosa clear 01/02/2012 None Full Exam - General 1994 Ears/Nose/Throat oral cavity/pharynx/larynx Overall: oropharyngeal mucosa clear 01/02/2012 None Full Exam - General 1994 Ears/Nose/Throat oral cavity/pharynx/larynx Overall: no masses 01/02/2012 None Full Exam - General 1994 Respiratory auscultation Overall: breath sounds clear bilaterally 01/02/2012 None Full Exam - General 1994 Respiratory respiratory effort/rhythm Overall: no retractions 01/02/2012 None Full Exam - General 1994 Respiratory respiratory effort/rhythm Overall: normal rate 01/02/2012 None Full Exam - General 1994 Cardiovascular auscultation of heart Overall: regular rate 01/02/2012 None Full Exam - General 1994 Integument inspection of skin Rash/Lesions: papule 01/02/2012 None Full Exam - General 1994 Psychiatric orientation/consciousness Overall: oriented to person, place and time 01/02/2012 None Full Exam - General 1994 Psychiatric mood and affect Overall: normal mood and affect 01/02/2012 None Full Exam - General 1994 Psychiatric mood and affect Mood: happy 01/02/2012 None Full Exam - General 1994 Eyes pupils and irises Overall: pupils equal, round, reactive to light and accomodation 01/02/2012 None Full Exam - General 1994 Ears/Nose/Throat otoscopic exam Tympanic membrane: a normal exam 01/02/2012 None Full Exam - General 1994 Ears/Nose/Throat otoscopic exam External auditory canal: minimal cerumen 01/02/2012 None Full Exam - General 1994 Integument inspection of skin Location: right arm 12/20/2011 None Full Exam - General 1994 Integument inspection of skin Rash/Lesions: papule 12/20/2011 None Full Exam - General 1994 Integument inspection of skin Rash/Lesions: ulceration 12/20/2011 starting on the top of th e raised papular lesion on the right upper arm/shoulder Full Exam - General 1994 Constitutional general appearance Overall: well nourished 12/20/2011 None Full Exam - General 1994 Constitutional general appearance Overall: well developed 12/20/2011 None Full Exam - General 1994 Constitutional general appearance Overall: in no acute distress 12/20/2011 None Full Exam - General 1994 Eyes pupils and irises Overall: pupils equal, round, reactive to light and accomodation 12/20/2011 None Full Exam - General 1994 Ears/Nose/Throat otoscopic exam External auditory canal: a normal exam 12/20/2011 None Full Exam - General 1994 Ears/Nose/Throat otoscopic exam External auditory canal: complete cerumen impaction 12/20/2011 None Full Exam - General 1994 Ears/Nose/Throat otoscopic exam Tympanic membrane: a normal exam 12/20/2011 None Full Exam - General 1994 Ears/Nose/Throat otoscopic exam Tympanic membrane: not visualized 12/20/2011 None Full Exam - General 1994 Ears/Nose/Throat oral cavity/pharynx/larynx Overall: oropharyngeal mucosa clear 12/20/2011 None Full Exam - General 1994 Ears/Nose/Throat oral cavity/pharynx/larynx Overall: no masses 12/20/2011 None Full Exam - General 1994 Ears/Nose/Throat oral cavity/pharynx/larynx Overall: oral mucosa clear 12/20/2011 None Full Exam - General 1994 Neck thyroid Overall: nontender 12/20 None Full Exam - General 1994 Neck thyroid Overall: normal size None Full Exam - General 1994 Neck thyroid Overall: no mass lesions 12/20/2011 None Full Exam - General 1994 Neck thyroid Overall: normal consistency 12/20/2011 None Full Exam - General 1994 Respiratory auscultation Overall: breath sounds clear bilaterally 12/20/2011 None Full Exam - General 1994 Respiratory respiratory effort/rhythm Overall: normal rate 12/20/2011 None Full Exam - General 1994 Respiratory respiratory effort/rhythm Overall: no retractions 12/20/2011 None Full Exam - General 1994 Cardiovascular auscultation of heart Overall: regular rate 12/20/2011 None Full Exam - General 1994 Cardiovascular auscultation of heart Overall: normal heart sounds 12/20/2011 None Full Exam - General 1994 Cardiovascular auscultation of heart Overall: no murmurs 12/20/2011 None Full Exam - General 1994 Psychiatric orientation/consciousness Overall: oriented to person, place and time 12/20/2011 None Full Exam - General 1994 Psychiatric mood and affect Mood: happy 12/20/2011 None Full Exam - General 1994 Psychiatric mood and affect Overall: normal mood and affect 12/20/2011 None Full Exam - General 1994 Musculoskeletal head and neck Overall: head atraumatic 12/20/2011 None Full Exam - General 1994 Musculoskeletal head and neck Cervical Spine: presence of a scar 12/20/2011 anterior neck on the left Full Exam - General 1994 Musculoskeletal head and neck Cervical Spine: decreased flexion 12/20/2011 None Full Exam - General 1994 Musculoskeletal head and neck Cervical Spine: decreased extension 12/20/2011 None Full Exam - General 1994 Lymphatic neck nodes Overall: anterior cervical chain benign 12/20/2011 None Full Exam - General 1994 Lymphatic neck nodes Overall: posterior cervical chain benign 12/20/2011 None Full Exam - General 1994 Abdomen abdominal exam Overall: no tenderness 12/20/2011 None Full Exam - General 1994 Abdomen abdominal exam Overall: normal bowel sounds 12/20/2011 None Procedures Procedure Codes Date TRIAMCINOLONE ACET I [place] NOS CPT-4: J3301 05/11/2019 ADMIN INFLUENZA VIRU S VAC CPT-4: G0008 07/28/2018 FLU VACC PRSV FREE I NC ANTIG Formatting Model/CDA Sections, Assigned to/Jen Cota CPT-4: [id number] 07/28/2018 THER/PROPH/DIAG INJ SC/IM CPT-4: 19543 04/24/2018 TRIAMCINOLONE ACET I NJ NOS CPT-4: J3301 04/24/2018 PPPS, SUBSEQ VISIT CPT- 4: G0439 02/03/2018 TRIAMCINOLONE ACET I NJ NOS CPT-4: J3301 06/23/2017 TRIAMCINOLONE ACET I NJ NOS CPT-4: J3301 03/21/2017 PPPS, SUBSEQ VISIT CPT- 4: G0439 01/22/2017 ADMIN PNEUMOCOCCAL V ACCINE SNOMED CT: [id number] CPT-4: G0009 09/16/2016 Pneumococcal Polysac charide Vaccine, 23-Valent, Ad CPT-4: 49593 09/16/2016 THER/PROPH/DIAG INJ SC/IM CPT-4: 27522 04/04/2016 TRIAMCINOLONE ACET I NJ NOS CPT-4: J3301 04/04/2016 ADMIN INFLUENZA VIRU S VAC CPT-4: G0008 07/28/2015 FLU VACC 4 XIMENA 3 YRS PLUS IM Formatting Model/CDA Sections, Assigned to/Kristie Cotaa SNOMED CT: [id number] CPT-4: [id number] 07/28/2015 TRIAMCINOLONE ACET I NJ NOS CPT-4: J3301 06/12/2015 TRIAMCINOLONE ACET I NJ NOS CPT-4: J3301 05/15/2015 ADMIN INFLUENZA VIRU S VAC CPT-4: G0008 07/19/2014 FLU VAC NO PRSV 4 VA L 3 YRS+ Assigned to/Jen Cota CPT-4: [id number] 07/19/2014 TRIAMCINOLONE ACET I [place] NOS CPT-4: J3301 02/02/2014 ROUTINE VENIPUNCTURE CPT-4: 10122 08/24/2013 ADMIN INFLUENZA VIRU S VAC CPT-4: G0008 07/26/2013 FLULAVAL VACC, 3 YRS & >, IM CPT-4: Q2036 07/26/2013 TRIAMCINOLONE ACET I NJ NOS CPT-4: J3301 06/30/2013 PRESCRIP TRANSMIT A ERX SY CPT-4: G8553 06/30/2013 PRESCRIP TRANSMIT A ERX SY CPT-4: G8553 12/01/2012 PRESCRIP TRANSMIT A ERX SY CPT-4: G8553 10/19/2012 PRESCRIP TRANSMIT A ERX SY CPT-4: G8553 10/07/2012 PRESCRIP TRANSMIT A ERX SY CPT-4: G8553 2012 PRESCRIP TRANSMIT A ERX SY CPT-4: G8553 08/18/2012 ADMIN INFLUENZA VIRU S VAC CPT-4: G0008 08/04/2012 FLULAVAL VACC, 3 YRS & >, IM CPT-4: Q2036 08/04/2012 PRESCRIP TRANSMIT A ERX SY CPT-4: G8553 08/04/2012 PRESCRIP TRANSMIT A ERX SY CPT-4: G8553 07/01/2012 ROCEPHIN, PER 250 MG CPT-4: J0696 01/23/2012 TRIAMCINOLONE ACET I [place] NOS CPT-4: J3301 01/23/2012 THER/PROPH/DIAG INJ SC/IM CPT-4: 66663 01/23/2012 REMOVE IMPACTED EAR WAX UNI CPT-4: 40291 01/02/2012 ROUTINE VENIPUNCTURE CPT-4: 58614 12/20/2011 Vital Signs Date Vital 06/14/2019 Blood Pressure 1: 158/70 Code: 8480-6 BMI: 33.4 Code: 54779-8 Heart Rate 1: 68 bpm Height: 5' SpO2: 97% Weight: 174 lbs 05/11/2019 Blood Pressure 1: 142/78 Code: 8480-6 BMI: 33.4 Code: 93632-2 Heart Rate 1: 58 bpm Height: 5' SpO2: 97% Weight: 174 lbs 02/16/2019 Blood Pressure 1: 136/82 Code: 8480-6 BMI: 34.0 Code: 53235-0 Heart Rate 1: 88 bpm Height: 5' SpO2: 94% Weight: 177 lbs 01/21/2019 Blood Pressure 1: 144/70 Code: 8480-6 BMI: 34.0 Code: 36043-9 Heart Rate 1: 68 bpm Height: 5' SpO2: 97% Temperature: 36.5 (C ) / 97.7 (F) Weight: 177 lbs 10/14/2018 Blood Pressure 1: 150/72 Code: 8480-6 Heart Rate 1: 58 bpm Height: 5' SpO2: 98% Weight: 09/22/2018 Blood Pressure 1: 140/80 Code: 8480-6 BMI: 32.7 Code: 45423-6 Heart Rate 1: 55 bpm Height: 5' SpO2: 98% Weight: 170 lbs 08/17/2018 Blood Pressure 1: 140/76 Code: 8480-6 BMI: 33.0 Code: 86310-3 Heart Rate 1: 60 bpm Height: 5' SpO2: 99% Weight: 172 lbs 06/08/2018 Blood Pressure 1: 136/80 Code: 8480-6 BMI: 33.8 Code: 72897-5 Heart Rate 1: 65 bpm Height: 5' SpO2: 98% Weight: 176 lbs 05/04/2018 Blood Pressure 1: 134/80 Code: 8480-6 BMI: 35.9 Code: 33250-6 Heart Rate 1: 72 bpm Height: 5' SpO2: 94% Weight: 187 lbs 02/04/2018 Blood Pressure 1: 144/76 Code: 8480-6 BMI: 35.0 Code: 21160-0 Heart Rate 1: 64 bpm Height: 5' SpO2: 98% Weight: 182 lbs 02/03/2018 Blood Pressure 1: 136/62 Code: 8480-6 BMI: 35.0 Code: 25270-6 Heart Rate 1: 57 bpm Height: 5' SpO2: 98% Waist Measure (cm): 94 cm Weight: 182 lbs 09/17/2017 Blood Pressure 1: 150/82 Code: 8480-6 BMI: 33.6 Code: 93657-5 Heart Rate 1: 58 bpm Height: 5' SpO2: 98% Weight: 175 lbs 06/23/2017 Blood Pressure 1: 124/66 Code: 8480-6 Heart Rate 1: 65 bpm Height: 5' SpO2: 97% Weight: 05/13/2017 Blood Pressure 1: 128/80 Code: 8480-6 BMI: 32.8 Code: 48718-1 Heart Rate 1: 76 bpm Height: 5' SpO2: 95% Weight: 171 lbs 03/21/2017 Blood Pressure 1: 152/88 Code: 8480-6 Heart Rate 1: 70 bpm Height: SpO2: 98% Weight: 03/19/2017 Blood Pressure 1: 132/64 Code: 8480-6 BMI: 33.0 Code: 91796-2 Heart Rate 1: 64 bpm Height: 5' SpO2: 96% Weight: 172 lbs 01/22/2017 Blood Pressure 1: 120/68 Code: 8480-6 BMI: 33.4 Code: 30785-2 Heart Rate 1: 68 bpm Height: 5' SpO2: 96% Weight: 174 lbs 01/14/2017 Blood Pressure 1: 138/80 Code: 8480-6 BMI: 33.4 Code: 88637-4 Heart Rate 1: 69 bpm Height: 5' SpO2: 98% Weight: 174 lbs 09/23/2016 Blood Pressure 1: 138/70 Code: 8480-6 BMI: 33.6 Code: 15444-8 Heart Rate 1: 68 bpm Height: 5' SpO2: 98% Temperature: 36.4 (C ) / 97.5 (F) Weight: 175 lbs 09/16/2016 Blood Pressure 1: 124/74 Code: 8480-6 BMI: 33.6 Code: 29827-2 Heart Rate 1: 64 bpm Height: 5' SpO2: 97% Weight: 175 lbs 06/25/2016 Weigh t: 174 lbs 06/17/2016 Blood Pressure 1: 128/80 Code: 8480-6 BMI: 34.0 Code: 95255-9 Heart Rate 1: 76 bpm Height: 5' SpO2: 95% Weight: 177 lbs 04/03/2016 Blood Pressure 1: 138/72 Code: 8480-6 BMI: 34.2 Code: 37895-5 Heart Rate 1: 63 bpm Height: 5' SpO2: 96% Weight: 178 lbs 03/13/2016 Blood Pressure 1: 128/72 Code: 8480-6 BMI: 35.3 Code: 16653-3 Heart Rate 1: 71 bpm Height: 5' SpO2: 97% Weight: 184 lbs 01/30/2016 Blood Pressure 1: 134/72 Code: 8480-6 BMI: 35.2 Code: 36843-2 Heart Rate 1: 71 bpm Height: 5' SpO2: 96% Weight: 183 lbs 12/21/2015 Blood Pressure 1: 148/90 Code: 8480-6 BMI: 34.6 Code: 26031-0 Heart Rate 1: 89 bpm Height: 5' SpO2: 96% Weight: 180 lbs 10/09/2015 Blood Pressure 1: 124/76 Code: 8480-6 BMI: 34.6 Code: 51844-1 Heart Rate 1: 88 bpm Height: 5' SpO2: 96% Weight: 180 lbs 06/12/2015 Blood Pressure 1: 148/74 Code: 8480-6 BMI: 33.4 Code: 90635-8 Heart Rate 1: 70 bpm Height: 5' SpO2: 96% Weight: 174 lbs 06/05/2015 Blood Pressure 1: 142/82 Code: 8480-6 BMI: 33.2 Code: 29263-8 Heart Rate 1: 72 bpm Height: 5' Weight: 173 lbs 05/15/2015 Blood Pressure 1: 118/80 Code: 8480-6 BMI: 33.6 Code: 27424-1 Heart Rate 1: 82 bpm Height: 5' Weight: 175 lbs 02/06/2015 Blood Pressure 1: 122/76 Code: 8480-6 BMI: 34.6 Code: 03136-4 Heart Rate 1: 58 bpm Height: 5' Weight: 180 lbs 01/10/2015 Blood Pressure 1: 158/90 Code: 8480-6 Blood Pressure 2: 152/90 Code: 8480-6 BMI: 34.6 Code: 44610-0 Heart Rate 1: 68 bpm Height: 5' Weight: 180 lbs 07/19/2014 Blood Pressure 1: 142/78 Code: 8480-6 BMI: 33.6 Code: 84919-2 Heart Rate 1: 56 bpm Height: 5' Weight: 175 lbs 06/17/2014 Blood Pressure 1: 128/86 Code: 8480-6 Heart Rate 1: 66 bpm SpO2: 98% Weight: 172 lbs 04/19/2014 Blood Pressure 1: 152/82 Code: 8480-6 BMI: 32.5 Code: 54878-4 Heart Rate 1: 60 bpm Height: 5' Weight: 169 lbs 04/11/2014 Blood Pressure 1: 120/80 Code: 8480-6 BMI: 33.4 Code: 79952-9 Heart Rate 1: 64 bpm Height: 5' Weight: 174 lbs 03/10/2014 Blood Pressure 1: 136/64 Code: 8480-6 BMI: 32.7 Code: 62763-5 Heart Rate 1: 76 bpm Height: 5' Weight: 170 lbs 02/02/2014 Blood Pressure 1: 160/76 Code: 8480-6 BMI: 32.7 Code: 07473-6 Heart Rate 1: 64 bpm Height: 5' Weight: 170 lbs 10/25/2013 Blood Pressure 1: 164/82 Code: 8480-6 BMI: 31.9 Code: 22717-5 Heart Rate 1: 60 bpm Height: 5' Weight: 166 lbs 08/24/2013 Blood Pressure 1: 138/88 Code: 8480-6 Heart Rate 1: 80 bpm Weight: 07/26/2013 Blood Pressure 1: 154/70 Code: 8480-6 Heart Rate 1: 72 bpm Weight: 162 lbs 06/30/2013 Blood Pressure 1: 182/86 Code: 8480-6 Heart Rate 1: 80 bpm Weight: 06/24/2013 Blood Pressure 1: 148/68 Code: 8480-6 BMI: 31.3 Code: 76539-3 Heart Rate 1: 72 bpm Height: 5' Weight: 163 lbs 12/01/2012 Blood Pressure 1: 98/58 Code: 8480-6 Heart Rate 1: 76 bpm Weight: 159 lbs 10/19/2012 Blood Pressure 1: 124/62 Code: 8480-6 Heart Rate 1: 64 bpm Weight: 165 lbs 10/07/2012 Blood Pressure 1: 124/66 Code: 8480-6 Heart Rate 1: 80 bpm Respiratory Rate: 20 bpm Weight: 163 lbs 2012 Blood Pressure 1: 126/72 Code: 8480-6 Heart Rate 1: 64 bpm Weight: 161 lbs 08/18/2012 Blood Pressure 1: 148/70 Code: 8480-6 Heart Rate 1: 60 bpm Weight: 158 lbs 08/04/2012 Blood Pressure 1: 144/82 Code: 8480-6 Heart Rate 1: 64 bpm Respiratory Rate: 16 bpm Weight: 157 lbs 07/01/2012 Blood Pressure 1: 142/88 Code: 8480-6 BMI: 30.6 Code: 07024-9 Heart Rate 1: 64 bpm Height: 5' SpO2: 98% Weight: 159 lbs 8 oz 05/20/2012 Blood Pressure 1: 156/78 Code: 8480-6 Heart Rate 1: 68 bpm Respiratory Rate: 16 bpm Weight: 159 lbs 04/20/2012 Blood Pressure 1: 160/82 Code: 8480-6 Heart Rate 1: 68 bpm Weight: 159 lbs 03/10/2012 Blood Pressure 1: 176/94 Code: 8480-6 Heart Rate 1: 72 bpm Respiratory Rate: 16 bpm Weight: 159 lbs 02/25/2012 Blood Pressure 1: 180/96 Code: 8480-6 BMI: 30.5 Code: 21420-9 Heart Rate 1: 76 bpm Height: 5' Respiratory Rate: 16 bpm Weight: 159 lbs 02/19/2012 Blood Pressure 1: 150/70 Code: 8480-6 Blood Pressure 2: 160/78 Code: 8480-6 Heart Rate 1: 76 bpm Respiratory Rate: 16 bpm Weight: 158 lbs 01/23/2012 Blood Pressure 1: 140/84 Code: 8480-6 BMI: 30.3 Code: 10779-3 Heart Rate 1: 68 bpm Height: 5' Respiratory Rate: 16 bpm SpO2: 98% Temperature: 37.0 (C ) / 98.6 (F) Weight: 158 lbs 01/02/2012 Blood Pressure 1: 142/92 Code: 8480-6 BMI: 30.7 Code: 39634-3 Heart Rate 1: 72 bpm Height: 5' Respiratory Rate: 16 bpm Weight: 160 lbs 12/20/2011 Blood Pressure 1: 170/84 Code: 8480-6 BMI: 30.0 Code: 62460-7 Heart Rate 1: 70 bpm Height: 5' Respiratory Rate: 16 bpm Weight: 156 lbs Functional Status No Functional Status data History of Present Illness Symptom Name Status Resu lt Effective Date Notes Quality chronic 06/14/2019 None Quality primary hypert ension 06/14/2019 None Onset and Resolution o ngoing 06/14/2019 None Onset of Symptom durin g adulthood 06/14/2019 None Alleviating Factors me dication 06/14/2019 None Pertinent Findings diz ziness 06/14/2019 "once in a while" Pertinent Findings Den ies dyspnea 06/14/2019 None Pertinent Findings Den ies edema 06/14/2019 None Onset and Resolution g radual in onset 06/14/2019 None Onset of Symptom durin g adulthood 06/14/2019 None Significant Medications statin 06/14/2019 None Alleviating Factors me dication 06/14/2019 None Exacerbating Factors d iet 06/14/2019 None Quality chronic 06/14/2019 None Blood Pressure Values not checking blood pressure at home 06/14/2019 None Pertinent Findings dec reased energy 06/14/2019 -improved Quality acute 05/11/2019 None Quality intermittent 05/11/2019 None Quality hacking 05/11/2019 None Quality productive 05/11/2019 None Onset and Resolution s udden in onset 05/11/2019 None Onset of Symptom 1.5-2 weeks ago 05/11/2019 None Frequency of Episodes daily 05/11/2019 None Pertinent Findings spu bertram production 05/11/2019 None Pertinent Findings pos t nasal drip 05/11/2019 -clear- "always has" Alleviating Factors OT C medications 02/16/2019 [place] mouth wash Frequency of Episodes decreasing 02/16/2019 None Location mucous membra valeriy 02/16/2019 None Onset of Symptom 4 wee ks ago 02/16/2019 None Pertinent Findings Den ies blisters 02/16/2019 None Pertinent Findings Den ies fever 02/16/2019 None Pertinent Findings pain 02/16/2019 None Quality chronic 02/16/2019 None Quality primary hypert ension 02/16/2019 None Onset and Resolution o ngoing 02/16/2019 None Onset of Symptom durin g adulthood 02/16/2019 None Blood Pressure Values patient checking blood pressure at home - did not bring in readings 02/16/2019 None Alleviating Factors me dication 02/16/2019 None Pertinent Findings diz ziness 02/16/2019 'sometimes' Pertinent Findings Den ies dyspnea 02/16/2019 None Pertinent Findings Den ies edema 02/16/2019 None Quality acute 01/21/2019 None Quality intermittent 01/21/2019 None Onset and Resolution o ngoing 01/21/2019 None Onset of Symptom 2+ we eks ago 01/21/2019 None Frequency of Episodes daily 01/21/2019 None Pertinent Findings Den ies chills 01/21/2019 None Pertinent Findings Den ies fever 01/21/2019 None Pertinent Findings pos t nasal drip 01/21/2019 None Pertinent Findings shaista al congestion 01/21/2019 None Pertinent Findings Den ies sputum production 01/21/2019 None Triggers ill contacts 01/21/2019 None Quality bradycardia 10/14/2018 None Quality acute 10/14/2018 None Quality chronic 10/14/2018 None Quality primary hypert ension 10/14/2018 None Onset and Resolution o ngoing 10/14/2018 None Onset of Symptom durin g adulthood 10/14/2018 None Alleviating Factors me dication 10/14/2018 None Blood Pressure Values patient checking blood pressure at home - did not bring in readings 10/14/2018 None Pertinent Findings maureen mainness 10/14/2018 "once in a while"- thinks that she moves too fast Pertinent Findings Den ies dyspnea 10/14/2018 None Pertinent Findings Den ies edema 10/14/2018 None Quality improving 10/14/2018 None Onset and Resolution o ngoing 10/14/2018 None Exacerbating Factors m edication 10/14/2018 None fatigue Quality chronic 09/22/2018 None fatigue Onset and Resolution ongoing 09/22/2018 None fatigue Onset of Symptom 1 years ago 09/22/2018 None fatigue Pertinent Findings dizziness 09/22/2018 occasionally headache Location in the frontal area 09/22/2018 None headache Location on bot h sides 09/22/2018 None headache Quality constant 09/22/2018 None headache Quality dull 09/22/2018 None headache Quality aching 09/22/2018 None headache Onset and Resolution gradual in onset 09/22/2018 None leg pain/sciatica Location right leg sciatica 08/17/2018 None leg pain/sciatica Radiating the right buttock 08/17/2018 None leg pain/sciatica Quality constant 08/17/2018 None leg pain/sciatica Onset and Resolution ongoing 08/17/2018 None leg pain/sciatica Onset of Symptom a few months ago 08/17/2018 None leg pain/sciatica Limitation on Activities allows weight bearing activity 08/17/2018 None leg pain/sciatica Limitation on Activities moderately limits activities 08/17/2018 None leg pain/sciatica Frequency of Episodes daily 08/17/2018 None cough Quality acute 08/17/2018 None cough Onset and Resolution sudden in onset 08/17/2018 None cough Onset of Symptom 3 -4 days ago 08/17/2018 None cough Pertinent Findings Denies fever 08/17/2018 None cough Pertinent Findings nasal congestion 08/17/2018 None cough Pertinent Findings post nasal drip 08/17/2018 None cough Pertinent Findings sputum production 08/17/2018 None hypertension Quality luz marina aaron hypertension 06/08/2018 None hypertension Onset and Resolution ongoing 06/08/2018 None hypertension Onset of Symptom during adulthood 06/08/2018 None hypertension Alleviating Factors medication 06/08/2018 None hypertension Pertinent Findings dizziness 06/08/2018 None hypertension Pertinent Findings dyspnea 06/08/2018 "sometimes" hypertension Pertinent Findings Denies edema 06/08/2018 None hyperlipidemia Onset and Resolution gradual in onset 06/08/2018 None hyperlipidemia Onset of Symptom during adulthood 06/08/2018 None hyperlipidemia Significant Medications statin 06/08/2018 None hyperlipidemia Alleviating Factors medication 06/08/2018 None hyperlipidemia Exacerbating Factors diet 06/08/2018 None arthritis Location hips 06/08/2018 None arthritis Location wrists 06/08/2018 None arthritis Location on th e left 06/08/2018 None arthritis Location on th e right 06/08/2018 None arthritis Onset and Resolution gradual in onset 06/08/2018 None arthritis Onset and Resolution ongoing 06/08/2018 None arthritis Quality chronic 06/08/2018 None arthritis Significant Medical Conditions advancing age 0806/08/2018 None arthritis Pertinent Findings stiffness 06/08/2018 None hypertension Quality chr onic 06/08/2018 None hypertension Blood Pressure Values not checking blood pressure at home 06/08/2018 None 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 arthritis Frequency of Episodes daily 06/08/2018 None cough Location in the th roat 05/04/2018 None cough Quality intermitte nt 05/04/2018 None cough Onset and Resolution sudden in onset 05/04/2018 None cough Quality interrupts sleep 05/04/2018 None cough Onset of Symptom 3 days ago 05/04/2018 None sore throat Location on both sides 05/04/2018 None sore throat Quality inte rmittent 05/04/2018 None sore throat Onset and Resolution sudden in onset 05/04/2018 None sore throat Onset of Symptom 3 days ago 05/04/2018 None sore throat Pertinent Findings Denies fever 05/04/2018 None sore throat Pertinent Findings cough 05/04/2018 None earache Location left ear 05/04/2018 None earache Quality acute 05/04/2018 None earache Onset of Symptom 3 days ago 05/04/2018 None cough Limitation on Activities does not limit activities 05/04/2018 None cough Frequency of Episodes increasing 05/04/2018 None hypertension Quality luz marina aaron hypertension 02/04/2018 None hypertension Onset and Resolution ongoing 02/04/2018 None hypertension Onset of Symptom during adulthood 02/04/2018 None hypertension Alleviating Factors medication 02/04/2018 None hypertension Pertinent Findings dizziness 02/04/2018 "once in a while"; "not o ften" hypertension Pertinent Findings Denies dyspnea 02/04/2018 None hypertension Pertinent Findings edema 02/04/2018 occasionally hyperlipidemia Onset and Resolution gradual in onset 02/04/2018 None hyperlipidemia Onset of Symptom during adulthood 02/04/2018 None hyperlipidemia Significant Medications statin 02/04/2018 None hyperlipidemia Alleviating Factors medication 02/04/2018 None hyperlipidemia Exacerbating Factors diet 02/04/2018 None arthritis Location hips 02/04/2018 None arthritis Location wrists 02/04/2018 None arthritis Location on th e left 02/04/2018 None arthritis Location on th e right 02/04/2018 None arthritis Onset and Resolution gradual in onset 02/04/2018 None arthritis Onset and Resolution ongoing 02/04/2018 None arthritis Quality chronic 02/04/2018 None arthritis Significant Medical Conditions advancing age 0402/04/2018 None arthritis Pertinent Findings stiffness 02/04/2018 None hypertension Blood Pressure Values patient checking blood pressure at home - did not bring in readings 02/04/2018 -Checks once in a while Annual Medicare Wellness Exam Alcohol Use drinks 1 days per week 02/03/2018 None Annual Medicare Wellness Exam Alcohol Use drinks 1 drinks per day 02/03/2018 None Annual Medicare Wellness Exam Aspirin Use yes 02/03/2018 None Annual Medicare Wellness Exam Blood Glucose (self reported) don't know 02/03/2018 No ne Annual Medicare Wellness Exam Blood Pressure (self reported) borderline (120/80 - 139/89) 018 None Annual Medicare Wellness Exam Choles terol (self reported) don't know 02/03/2018 No ne Annual Medicare Wellness Exam Depres jamal (last 6 months) some of the time 02/03/2018 None Annual Medicare Wellness Exam Depres jamal or Hopelessness almost never 02/03/2018 None Annual Medicare Wellness Exam Descri be Your Health good 02/03/2018 None Annual Medicare Wellness Exam Exerci se Habits does not exercise 02/03/2018 None Annual Medicare Wellness Exam Handli ng Stress usually irma effectively 02/03/2018 None Annual Medicare Wellness Exam Hemagl obin A-1C (self reported) don't know 02/03/2018 No ne Annual Medicare Wellness Exam Hours of Sleep 7 02/03/2018 None Annual Medicare Wellness Exam Intera ction with Friends yes 02/03/2018 None Annual Medicare Wellness Exam Intere sts & Pleasure almost all of the time 02/03/2018 None Annual Medicare Wellness Exam Life S atisfaction very satisfied 02/03/2018 None Annual Medicare Wellness Exam Motor Vehicle Safety always fastens seat belt: y 02/04/20 18 None Annual Medicare Wellness Exam Motor Vehicle Safety drives after drinking: n 02/03/2018 None Annual Medicare Wellness Exam Motor Vehicle Safety rides with someone who has been drinking: n 02/03/2018 None Annual Medicare Wellness Exam Nutrition servings of fried food / high fat foods per day: 1 02/03/2018 None Annual Medicare Wellness Exam Nutrition servings of high fiber / whole grain per day: 1 02/03/2018 None Annual Medicare Wellness Exam Nutrition servings of vegetables / fruit per day: 2 02/03/2018 None Annual Medicare Wellness Exam Smokin g and Tobacco Use non smoker 02/03/2018 No ne Annual Medicare Wellness Exam Social & Emotional Support always 02/03/2018 None Annual Medicare Wellness Exam Stress some of the time 02/03/2018 n Annual Medicare Wellness Exam Sun Exposure protects skin when outdoors: n 02/03/2018 None hypertension Onset and Resolution ongoing 09/17/2017 None hypertension Onset of Symptom during adulthood 09/17/2017 None hypertension Significant Medical Condition s cardiac disease 09/17/2017 None hypertension Alleviating Factors medication 09/17/2017 None hypertension Pertinent Findings Denies dizziness 09/17/2017 None hypertension Pertinent Findings Denies dyspnea 09/17/2017 None hypertension Pertinent Findings Denies edema 09/17/2017 None hyperlipidemia Onset and Resolution gradual in onset 09/17/2017 None hyperlipidemia Onset of Symptom during adulthood 09/17/2017 None hyperlipidemia Alleviating Factors medication 09/17/2017 None hyperlipidemia Exacerbating Factors diet 09/17/2017 None arthritis Location hips 09/17/2017 None arthritis Location wrists 09/17/2017 None arthritis Location on th e left 09/17/2017 None arthritis Location on th e right 09/17/2017 None arthritis Onset and Resolution gradual in onset 09/17/2017 None arthritis Onset and Resolution ongoing 09/17/2017 None arthritis Quality chronic 09/17/2017 None arthritis Significant Medical Conditions advancing age 1109/17/2017 None arthritis Pertinent Findings stiffness 09/17/2017 None hypertension Quality luz marina aaron hypertension 09/17/2017 None hyperlipidemia Significant Medications statin 09/17/2017 None hypertension Blood Pressure Values not checking blood pressure at home 09/17/2017 None rash Location-Major on t he arms 06/23/2017 None rash Location-Major on t he legs 06/23/2017 None rash Color red 06/23/2017 None rash Onset and Resolution sudden in onset 06/23/2017 None rash Onset of Symptom 2 days ago 06/23/2017 None rash Triggers outside 06/23/2017 None rash Pertinent Findings itching 06/23/2017 None hypertension Onset and Resolution ongoing 05/13/2017 None hypertension Onset of Symptom during adulthood 05/13/2017 None hypertension Blood Pressure Values patient checking blood pressure at home - did not bring in readings 05/13/2017 -Checks occasionally hypertension Severity no t consistently severe symptoms, the symptoms fluctuate from no symptoms to anxiety and headaches 05/13/2017 None hypertension Significant Medical Condition s cardiac disease 05/13/2017 None hypertension Alleviating Factors medication 05/13/2017 None hypertension Pertinent Findings Denies dizziness 05/13/2017 None hypertension Pertinent Findings Denies dyspnea 05/13/2017 None hypertension Pertinent Findings Denies edema 05/13/2017 None hyperlipidemia Onset and Resolution gradual in onset 05/13/2017 None hyperlipidemia Onset and Resolution ongoing 05/13/2017 None hyperlipidemia Onset of Symptom during adulthood 05/13/2017 None hyperlipidemia Alleviating Factors medication 05/13/2017 None hyperlipidemia Exacerbating Factors diet 05/13/2017 None arthritis Location hips 05/13/2017 None arthritis Location wrists 05/13/2017 None arthritis Location on th e left 05/13/2017 None arthritis Location on th e right 05/13/2017 None arthritis Onset and Resolution gradual in onset 05/13/2017 None arthritis Onset and Resolution ongoing 05/13/2017 None arthritis Quality chronic 05/13/2017 None arthritis Significant Medical Conditions advancing age 0705/13/2017 None arthritis Pertinent Findings stiffness 05/13/2017 None rash Location-Major on t he head 03/21/2017 face rash Location-Head/Neck on the left cheek 03/21/2017 None rash Location-Head/Neck on the right cheek 03/21/2017 None rash Location-Head/Neck on the nose 03/21/2017 None rash Quality acute 03/21/2017 None rash Quality new 03/21/2017 None rash Color erythematous 03/21/2017 None rash Onset and Resolution ongoing 03/21/2017 None rash Onset of Symptom _ hours ago 03/21/2017 None rash Frequency of Episodes increasing 03/21/2017 None rash Limitation on Activities does not limit activities 03/21/2017 None rash Severity worsening 03/21/2017 None rash Triggers outside 03/21/2017 poison sarah/oak rash Alleviating Factors treatment medication 03/21/2017 None rash Pertinent Findings Denies fever 03/21/2017 None arthropod bite Location on the left leg 03/19/2017 None arthropod bite Onset of Symptom 1 days ago 03/19/2017 None Annual Medicare Wellness Exam Alcohol Use drinks 1 days per week 01/22/2017 None Annual Medicare Wellness Exam Aspirin Use no 01/22/2017 None Annual Medicare Wellness Exam Blood Glucose (self reported) desireable (below 100) 01/22/2017 None Annual Medicare Wellness Exam Blood Pressure (self reported) high (140/90 or higher) 01/22/2017 None Annual Medicare Wellness Exam Choles terol (self reported) don't know 01/22/2017 No ne Annual Medicare Wellness Exam Depres jamal (last 6 months) almost never 01/22/2017 None Annual Medicare Wellness Exam Depres jamal or Hopelessness almost never 01/22/2017 None Annual Medicare Wellness Exam Descri be Your Health very good 01/22/2017 Non e Annual Medicare Wellness Exam Exerci se Habits does not exercise 01/22/2017 None Annual Medicare Wellness Exam Handli ng Stress usually irma effectively 01/22/2017 None Annual Medicare Wellness Exam Hemagl obin A-1C (self reported) desireable (6 or lower) 01/22/2017 None Annual Medicare Wellness Exam Hours of Sleep 6 01/22/2017 None Annual Medicare Wellness Exam Intera ction with Friends yes 01/22/2017 None Annual Medicare Wellness Exam Intere sts & Pleasure daily 01/22/2017 None Annual Medicare Wellness Exam Life S atisfaction very satisfied 01/22/2017 None Annual Medicare Wellness Exam Motor Vehicle Safety always fastens seat belt: y 01/23/20 17 None Annual Medicare Wellness Exam Motor Vehicle Safety drives after drinking: n 01/22/2017 None Annual Medicare Wellness Exam Motor Vehicle Safety rides with someone who has been drinking: n 01/22/2017 None Annual Medicare Wellness Exam Nutrition servings of fried food / high fat foods per day: 1 01/22/2017 None Annual Medicare Wellness Exam Nutrition servings of high fiber / whole grain per day: 1 01/22/2017 None Annual Medicare Wellness Exam Nutrition servings of vegetables / fruit per day: 2 01/22/2017 None Annual Medicare Wellness Exam Smokin g and Tobacco Use non smoker 01/22/2017 No ne Annual Medicare Wellness Exam Social & Emotional Support always 01/22/2017 None Annual Medicare Wellness Exam Stress most of the time 01/22/2017 None Annual Medicare Wellness Exam Sun Exposure protects skin when outdoors: n 01/22/2017 None hypertension Onset and Resolution ongoing 01/14/2017 None hypertension Onset of Symptom during adulthood 01/14/2017 None hypertension Severity no t consistently severe symptoms, the symptoms fluctuate from no symptoms to anxiety and headaches 01/14/2017 None hypertension Significant Medical Condition s cardiac disease 01/14/2017 None hypertension Alleviating Factors medication 01/14/2017 None hypertension Pertinent Findings Denies dizziness 01/14/2017 None hypertension Pertinent Findings Denies dyspnea 01/14/2017 None hypertension Pertinent Findings Denies edema 01/14/2017 None hyperlipidemia Onset and Resolution gradual in onset 01/14/2017 None hyperlipidemia Onset and Resolution ongoing 01/14/2017 None hyperlipidemia Onset of Symptom during adulthood 01/14/2017 None hyperlipidemia Alleviating Factors medication 01/14/2017 None hyperlipidemia Exacerbating Factors diet 01/14/2017 None arthritis Location hips 01/14/2017 None arthritis Location wrists 01/14/2017 None arthritis Location on th e left 01/14/2017 None arthritis Location on th e right 01/14/2017 None arthritis Onset and Resolution gradual in onset 01/14/2017 None arthritis Onset and Resolution ongoing 01/14/2017 None arthritis Quality chronic 01/14/2017 None arthritis Significant Medical Conditions advancing age 0301/14/2017 None arthritis Pertinent Findings stiffness 01/14/2017 None hypertension Blood Pressure Values patient checking blood pressure at home - did not bring in readings 01/14/2017 -Checks occasionally skin lesion Location lef t arm 01/14/2017 -elbow- skin lesion Onset and Resolution ongoing 01/14/2017 None skin lesion Onset of Symptom 1 years ago 01/14/2017 None skin lesion Quality non- tender 01/14/2017 None skin lesion Triggers no known associated factors 01/14/2017 None sores Location-Head/Neck on the gingiva 09/23/2016 None sores Location-Head/Neck on the left buccal mucosa 09/23/2016 None sores Quality improving 09/23/2016 None sores Quality painful 09/23/2016 None sores Quality burning 09/23/2016 None sores Onset and Resolution resolved 09/23/2016 None sores Onset of Symptom 3 months ago 09/23/2016 None sores Triggers certain f oods 09/23/2016 started after eating spic y food but has worsened since increase of lyrica sores Pertinent Findings Denies fever 09/23/2016 None hypertension Onset and Resolution ongoing 09/16/2016 None hypertension Onset of Symptom during adulthood 09/16/2016 None hypertension Severity no t consistently severe symptoms, the symptoms fluctuate from no symptoms to anxiety and headaches 09/16/2016 None hypertension Significant Medical Condition s cardiac disease 09/16/2016 None hypertension Alleviating Factors medication 09/16/2016 None hypertension Pertinent Findings dizziness 09/16/2016 a few spells- takes medic ation for vertigo hypertension Pertinent Findings dyspnea 09/16/2016 when walking uphill or up a long flight of stairs hypertension Pertinent Findings Denies edema 09/16/2016 None hypertension Blood Pressure Values not checking blood pressure at home 09/16/2016 None hyperlipidemia Onset and Resolution gradual in onset 09/16/2016 None hyperlipidemia Onset and Resolution ongoing 09/16/2016 None hyperlipidemia Onset of Symptom during adulthood 09/16/2016 None hyperlipidemia Alleviating Factors medication 09/16/2016 None hyperlipidemia Exacerbating Factors diet 09/16/2016 None arthritis Location on th e left 09/16/2016 None arthritis Location on th e right 09/16/2016 None arthritis Location hips 09/16/2016 None arthritis Location wrists 09/16/2016 None arthritis Onset and Resolution ongoing 09/16/2016 None arthritis Onset and Resolution gradual in onset 09/16/2016 None arthritis Quality chronic 09/16/2016 None arthritis Significant Medical Conditions advancing age 1109/16/2016 None arthritis Pertinent Findings stiffness 09/16/2016 None skin lesion Onset of Symptom 5 days ago 06/25/2016 None skin lesion Frequency of Episodes daily 06/25/2016 None skin lesion Pertinent Findings Denies cough 06/25/2016 None skin lesion Pertinent Findings Denies fever 06/25/2016 None skin lesion Location on the lower lip 06/25/2016 None hypertension Onset and Resolution ongoing 06/17/2016 None hypertension Onset of Symptom during adulthood 06/17/2016 None hypertension Alleviating Factors medication 06/17/2016 None hypertension Pertinent Findings Denies dizziness 06/17/2016 None hypertension Pertinent Findings Denies dyspnea 06/17/2016 -occasional hypertension Pertinent Findings Denies edema 06/17/2016 -mainly in the left ankle /lower leg hypertension Blood Pressure Values not checking blood pressure at home 06/17/2016 None hypertension Severity no t consistently severe symptoms, the symptoms fluctuate from no symptoms to anxiety and headaches 06/17/2016 None hypertension Frequency of Episodes unchanged 06/17/2016 None hypertension Significant Medical Condition s cardiac disease 06/17/[address] ress 06/17/2016 None cough Location in the th roat 04/03/2016 None cough Quality hacking 04/03/2016 None cough Quality dry 04/03/2016 None cough Onset and Resolution sudden in onset 04/03/2016 None cough Onset of Symptom 3 days ago 04/03/2016 None cough Frequency of Episodes daily 04/03/2016 None sinus congestion Onset and Resolution sudden in onset 04/03/2016 None sinus congestion Onset of Symptom 3 days ago 04/03/2016 None sore throat Location on both sides 04/03/2016 None sore throat Quality dull 04/03/2016 None sore throat Quality cons tant 04/03/2016 None sore throat Quality burn ing 04/03/2016 None sore throat Onset and Resolution sudden in onset 04/03/2016 None sore throat Onset of Symptom 3 days ago 04/03/2016 None sore throat Frequency of Episodes daily 04/03/2016 None edema Alleviating Factors rest 03/13/2016 None edema Exacerbating Factors activity 03/13/2016 None edema Location on both l egs 03/13/2016 -mainly in the left ankle /lower leg hypertension Onset and Resolution ongoing 03/13/2016 None hypertension Onset of Symptom during adulthood 03/13/2016 None hypertension Blood Pressure Values pt checking blood pressure - see scanned document 03/13/2016 None hypertension Alleviating Factors medication 03/13/2016 None hypertension Pertinent Findings Denies dizziness 03/13/2016 None hypertension Pertinent Findings dyspnea 03/13/2016 -occasional hypertension Pertinent Findings edema 03/13/2016 -mainly in the left ankle /lower leg edema Quality improving 03/13/2016 None edema Quality intermitte nt 03/13/2016 None edema Triggers recumbent position 03/13/2016 None paresthesia Quality numb ness 03/13/2016 None paresthesia Location on the right foot 03/13/2016 -several toes edema Onset and Resolution gradual in onset 01/30/2016 None edema Frequency of Episodes daily 01/30/2016 None edema Triggers no known associated factors 01/30/2016 None edema Alleviating Factors rest 01/30/2016 None edema Exacerbating Factors activity 01/30/2016 None edema Pertinent Findings limb pain / tenderness 01/30/2016 None edema Location on both l egs 01/30/2016 None edema Quality painful 01/30/2016 None edema Quality pitting 01/30/2016 None edema Onset and Resolution ongoing 01/30/2016 None edema Onset and Resolution gradual in onset 12/21/2015 None edema Frequency of Episodes daily 12/21/2015 None edema Triggers no known associated factors 12/21/2015 None edema Exacerbating Factors activity 12/21/2015 None edema Alleviating Factors rest 12/21/2015 None edema Pertinent Findings limb pain / tenderness 12/21/2015 None edema Location on both l egs 12/21/2015 None edema Quality painful 12/21/2015 None edema Quality pitting 12/21/2015 None hypertension Quality chr onic 10/09/2015 None hypertension Quality imp roving 10/09/2015 None hypertension Quality sta ble 10/09/2015 None hypertension Onset and Resolution ongoing 10/09/2015 None hypertension Onset of Symptom during adulthood 10/09/2015 None hypertension Blood Pressure Values not checking blood pressure at home 10/09/2015 Hasn't been taking it lately. hypertension Severity no t consistently severe symptoms, the symptoms fluctuate from no symptoms to anxiety and headaches 10/09/2015 None hypertension Frequency of Episodes unchanged 10/09/2015 None hypertension Significant Family History hypertension 10/09/[address] ress 10/09/2015 None hypertension Alleviating Factors medication 10/09/2015 None hypertension Exacerbating Factors stress 10/09/2015 None hypertension Pertinent Findings decreased energy 10/09/2015 None hypertension Pertinent Findings Denies dizziness 10/09/2015 None hypertension Pertinent Findings Denies dyspnea 10/09/2015 None hypertension Pertinent Findings Denies edema 10/09/2015 None hypertension Pertinent Findings lethargy 10/09/2015 None hypertension Pertinent Findings Denies nausea 10/09/2015 None rash Location-Major on t he head 06/12/2015 None rash Location-Head/Neck on the right jainism 06/12/2015 None rash Location-Head/Neck on the right cheek 06/12/2015 None rash Location-Head/Neck on the right side of the jaw 06/12/2015 None rash Location-Head/Neck on the right side of the neck 06/12/2015 None rash Quality burning 06/12/2015 None rash Color red 06/12/2015 None rash Onset and Resolution sudden in onset 06/12/2015 None rash Quality enlarging 06/12/2015 None rash Quality uncomfortab le 06/12/2015 None rash Onset of Symptom ye sterday 06/12/2015 None rash Pertinent Findings eye irritation 06/12/2015 None rash Pertinent Findings itching 06/12/2015 None rash Frequency of Episodes increasing 06/12/2015 None rash Limitation on Activities does not limit activities 06/12/2015 None rash Severity worsening 06/12/2015 None rash Prior Treatments un responsive to treatment 06/12/2015 None rash Triggers outside 06/12/2015 None rash Alleviating Factors no alleviating factors 06/12/2015 None hypertension Quality chr onic 06/05/2015 None hypertension Quality imp roving 06/05/2015 None hypertension Quality sta ble 06/05/2015 None hypertension Onset and Resolution ongoing 06/05/2015 None hypertension Onset of Symptom during adulthood 06/05/2015 None hypertension Blood Pressure Values not checking blood pressure at home 06/05/2015 Patient reports that her bp goes all over the place, but she hasnt been taking it lately. hypertension Pertinent Findings decreased energy 06/05/2015 None hypertension Pertinent Findings Denies dizziness 06/05/2015 None hypertension Pertinent Findings Denies dyspnea 06/05/2015 None hypertension Pertinent Findings edema 06/05/2015 None hypertension Pertinent Findings lethargy 06/05/2015 None hypertension Pertinent Findings Denies nausea 06/05/2015 None hypertension Severity no t consistently severe symptoms, the symptoms fluctuate from no symptoms to anxiety and headaches 06/05/2015 None hypertension Frequency of Episodes unchanged 06/05/2015 None hypertension Significant Family History hypertension 06/05/[address] ress 06/05/2015 None hypertension Alleviating Factors medication 06/05/2015 None hypertension Exacerbating Factors stress 06/05/2015 None shortness of breath Quality breathlessness 05/15/2015 None shortness of breath Onset and Resolution ongoing 05/15/2015 None shortness of breath Quality chest tightness 05/15/2015 None shortness of breath Pertinent Findings cough 05/15/2015 some-dry shortness of breath Pertinent Findings lightheadedness 05/15/2015 this am shortness of breath Onset of Symptom _ hours ago 05/15/2015 None shortness of breath Limitation on Ac tivities moderately limits activities 05/15/2015 None shortness of breath Frequency of Episodes decreasing 05/15/2015 better down-she has calmed down nasal allergies Location in both nares 05/15/2015 None nasal allergies Onset and Resolution ongoing 05/15/2015 None nasal allergies Onset of Symptom during adulthood 05/15/2015 None nasal allergies Severity mild 05/15/2015 None nasal allergies Frequency of Episodes unchanged 05/15/2015 None nasal allergies Significant Medical Conditions allergic rhinitis 05/15/2015 None nasal allergies Triggers no known associated factors 05/15/2015 None nasal allergies Alleviating Factors medication 05/15/2015 None edema Onset of Symptom 1 1/2 months ago 02/06/2015 None edema Frequency of Episodes daily 02/06/2015 None edema Location on both a nkles 02/06/2015 None edema Pertinent Findings dyspnea on exertion 02/06/2015 None paresthesia Location on the right foot 02/06/2015 2 middle toes- numbness a nd tinglining paresthesia Onset of Symptom 2 years ago 02/06/2015 more bothersome over last month paresthesia Pertinent Findings dyspnea 02/06/2015 None hypertension Quality chr onic 02/06/2015 None hypertension Quality imp roving 02/06/2015 None hypertension Quality sta ble 02/06/2015 None hypertension Onset and Resolution ongoing 02/06/2015 None hypertension Onset of Symptom during adulthood 02/06/2015 None hypertension Blood Pressure Values not checking blood pressure at home 02/06/2015 Patient reports that her bp goes all over the place, but she hasnt been taking it lately. hypertension Pertinent Findings decreased energy 02/06/2015 None hypertension Pertinent Findings Denies dizziness 02/06/2015 None hypertension Pertinent Findings Denies dyspnea 02/06/2015 None hypertension Pertinent Findings edema 02/06/2015 None hypertension Pertinent Findings lethargy 02/06/2015 None hypertension Pertinent Findings Denies nausea 02/06/2015 None hypertension Quality chr onic 01/10/2015 None hypertension Quality imp roving 01/10/2015 None hypertension Quality sta ble 01/10/2015 None hypertension Onset and Resolution ongoing 01/10/2015 None hypertension Onset of Symptom during adulthood 01/10/2015 None hypertension Pertinent Findings decreased energy 01/10/2015 None hypertension Pertinent Findings Denies dizziness 01/10/2015 None hypertension Pertinent Findings Denies dyspnea 01/10/2015 None hypertension Pertinent Findings edema 01/10/2015 None hypertension Pertinent Findings lethargy 01/10/2015 None hypertension Pertinent Findings Denies nausea 01/10/2015 None edema Onset of Symptom 1 1/2 months ago 01/10/2015 None edema Frequency of Episodes daily 01/10/2015 None edema Location on both a nkles 01/10/2015 None edema Pertinent Findings dyspnea on exertion 01/10/2015 None paresthesia Location on the right foot 01/10/2015 2 middle toes- numbness a nd tinglining paresthesia Onset of Symptom 2 years ago 01/10/2015 more bothersome over last month paresthesia Pertinent Findings dyspnea 01/10/2015 None hypertension Blood Pressure Values not checking blood pressure at home 01/10/2015 Patient reports that her bp goes all over the place, but she hasnt been taking it lately. hypertension Onset and Resolution ongoing 07/19/2014 None hypertension Blood Pressure Values pt checking blood pressure - see scanned document 07/19/2014 None hypertension Pertinent Findings Denies dizziness 07/19/2014 None hypertension Pertinent Findings Denies dyspnea 07/19/2014 None hypertension Pertinent Findings edema 07/19/2014 None hypertension Pertinent Findings Denies nausea 07/19/2014 None diabetes mellitus Quality non-insulin dependent 07/19/2014 None diabetes mellitus Severity mild 07/19/2014 None diabetes mellitus Exacerbating Factors diet 07/19/2014 None diabetes mellitus Nutrition regular diet 07/19/2014 None diabetes mellitus Pertinent Findings Denies dizziness 07/19/2014 None diabetes mellitus Pertinent Findings Denies dyspnea 07/19/2014 None diabetes mellitus Pertinent Findings Denies nausea 07/19/2014 None diabetes mellitus Pertinent Findings Denies vomiting 07/19/2014 None diabetes mellitus Onset of Symptom onset as an adult 07/19/2014 None hypertension Quality chr onic 07/19/2014 None hypertension Quality imp roving 07/19/2014 None hypertension Quality sta ble 07/19/2014 None hypertension Onset of Symptom during adulthood 07/19/2014 None hypertension Blood Pressure Values not checking blood pressure at home 07/19/2014 None hypertension Pertinent Findings decreased energy 07/19/2014 None hypertension Pertinent Findings lethargy 07/19/2014 None edema Onset and Resolution gradual in onset 06/17/2014 None edema Onset of Symptom 1 months ago 06/17/2014 None edema Limitation on Activities does not limit activities 06/17/2014 None edema Alleviating Factors rest 06/17/2014 None edema Location on the le ft ankle 06/17/2014 None edema Quality painful 06/17/2014 None edema Quality intermitte nt 06/17/2014 None edema Significant Past Medical History cardiac disease 06/17/2014 None diabetes mellitus Quality non-insulin dependent 04/19/2014 None diabetes mellitus Severity mild 04/19/2014 None diabetes mellitus Test results HgbA1c level 6.0 04/19/2014 None diabetes mellitus Glucose monitoring does not test 04/19/2014 None diabetes mellitus Exacerbating Factors diet 04/19/2014 None diabetes mellitus Nutrition regular diet 04/19/2014 None diabetes mellitus Exercise no exercise 04/19/2014 None diabetes mellitus Onset of Symptom onset as an adult 04/19/2014 None diabetes mellitus Pertinent Findings Denies vomiting 04/19/2014 None diabetes mellitus Pertinent Findings Denies nausea 04/19/2014 None diabetes mellitus Pertinent Findings Denies dizziness 04/19/2014 None diabetes mellitus Pertinent Findings Denies dyspnea 04/19/2014 None hypertension Blood Pressure Values not checking blood pressure at home 04/11/2014 None hypertension Pertinent Findings decreased energy 04/11/2014 None hypertension Pertinent Findings dizziness 04/11/2014 None hypertension Pertinent Findings Denies dyspnea 04/11/2014 None hypertension Pertinent Findings lethargy 04/11/2014 None hypertension Onset and Resolution ongoing 04/11/2014 None hypertension Onset of Symptom during adulthood 04/11/2014 None hypertension Quality chr onic 04/11/2014 None hypertension Quality imp roving 04/11/2014 None hypertension Quality sta ble 04/11/2014 None shortness of breath Quality breathlessness 03/10/2014 None shortness of breath Quality chest tightness 03/10/2014 None shortness of breath Quality labored breathing 03/10/2014 None shortness of breath Quality worsening 03/10/2014 None shortness of breath Alleviating Factors lying down 03/10/2014 states she quit alprazolam. shortness of breath Onset of Symptom 2 months ago 03/10/2014 None shortness of breath Limitation on Ac tivities does not limit activities 03/10/2014 None shortness of breath Frequency of Episodes unchanged 03/10/2014 None shortness of breath Alleviating Factors medication 03/10/2014 None shortness of breath Pertinent Findings Denies cough 03/10/2014 None shortness of breath Pertinent Findings Denies edema 03/10/2014 None shortness of breath Pertinent Findings Denies dysphagia 03/10/2014 None shortness of breath Pertinent Findings Denies lethargy 03/10/2014 None shortness of breath Pertinent Findings Denies lightheadedness 03/10/2014 None shortness of breath Pertinent Findings Denies nausea 03/10/2014 None shortness of breath Pertinent Findings Denies palpitations 03/10/2014 None fatigue Quality acute 02/02/2014 None fatigue Pertinent Findings Denies nausea 02/02/2014 states sometimes she does n't sleep well,. states when she takes her bp med she is so tired for 2 hours after and has to take a nap nasal allergies Onset and Resolution gradual in onset 02/02/2014 None nasal allergies Pertinent Findings Denies fever 02/02/2014 None nasal allergies Pertinent Findings Denies hoarseness 02/02/2014 None nasal allergies Pertinent Findings nasal itching 02/02/2014 cledar drainage wants allergy injection nasal allergies Location in both nares 02/02/2014 None nasal allergies Onset of Symptom during adulthood 02/02/2014 None nasal allergies Severity mild 02/02/2014 None nasal allergies Severity moderate 02/02/2014 None nasal allergies Frequency of Episodes increasing 02/02/2014 None nasal allergies Significant Medical Conditions allergic rhinitis 02/02/2014 None nasal allergies Significant Medications antihistamines 02/02/2014 None nasal allergies Triggers known allergens 02/02/2014 None nasal allergies Alleviating Factors medication 02/02/2014 None nasal allergies Exacerbating Factors allergen exposure 02/02/2014 None hypertension Quality chr onic 10/25/2013 None hypertension Onset and Resolution ongoing 10/25/2013 None hypertension Blood Pressure Values patient checking blood pressure at home - did not bring in readings 10/25/2013 None hypertension Pertinent Findings Denies edema 10/25/2013 None hypertension Pertinent Findings Denies dyspnea 10/25/2013 None hypertension Pertinent Findings Denies dizziness 10/25/2013 None hypertension Severity mi ld 10/25/2013 None blood pressure followup Quality chronic 08/24/2013 None blood pressure followup Onset and Re solution ongoing 08/24/2013 kady han made her cough, stopped med and cough stopped. blood pressure followup Blood Pressu re Values pt checking blood pressure - see scanned document 08/24/2013 None blood pressure followup Pertinent Findings Denies dizziness 08/24/2013 None blood pressure followup Pertinent Findings Denies dyspnea 08/24/2013 None blood pressure followup Pertinent Findings Denies edema 08/24/2013 None blood pressure followup Pertinent Findings Denies palpitations 08/24/2013 None blood pressure followup Pertinent Findings Denies orthostatic hypotension 08/24/2013 None blood pressure followup Pertinent Findings Denies tachycardia 08/24/2013 None hypertension Quality chr onic 07/26/2013 None hypertension Onset and Resolution ongoing 07/26/2013 None hypertension Blood Pressure Values pt checking blood pressure - see scanned document 07/26/2013 [id number]/82 vertigo Onset and Resolution resolved 07/26/2013 None vertigo Quality acute 06/30/2013 None vertigo Onset and Resolution sudden in onset 06/30/2013 None vertigo Onset of Symptom 12 hours ago 06/30/2013 None vertigo Pertinent Findings dizziness 06/30/2013 None vertigo Pertinent Findings Denies syncope 06/30/2013 None vertigo Exacerbating Factors position change 06/30/2013 None hypertension Quality chr onic 06/30/2013 None hypertension Onset and Resolution ongoing 06/30/2013 None hypertension Blood Pressure Values pt checking blood pressure - see scanned document 06/30/2013 149-178/82 hypertension Quality chr onic 06/24/2013 patient states that her T oprol makes her extremely tired. We changed her to metoprolol tartrate last week for financial reasons. hypertension Onset and Resolution ongoing 06/24/2013 None hypertension Pertinent Findings Denies dyspnea 06/24/2013 None hypertension Pertinent Findings decreased energy 06/24/2013 None hypertension Pertinent Findings dizziness 06/24/2013 None hypertension Onset of Symptom during adulthood 06/24/2013 None hypertension Blood Pressure Values pt checking blood pressure - see scanned document 06/24/2013 None hypertension Severity no t consistently severe symptoms, the symptoms fluctuate from no symptoms to anxiety and headaches 06/24/2013 None hypertension Triggers no known associated factors 06/24/2013 None edema Quality acute 12/01/2012 None edema Onset and Resolution ongoing 12/01/2012 None edema Quality painful 12/01/2012 None edema Quality pitting 12/01/2012 None edema Location on both a nkles 12/01/2012 None hypertension Quality chr onic 12/01/2012 None hypertension Onset and Resolution ongoing 12/01/2012 None hypertension Blood Pressure Values pt checking blood pressure - see scanned document 12/01/2012 None vertigo Onset and Resolution ongoing 12/01/2012 None vertigo Onset of Symptom 2 weeks ago 12/01/2012 states always dizzy but w orse rash Location-Extremities on the left leg 10/19/2012 states she fell dec or 12th and rash started 2 days later rash Color red 10/19/2012 None rash Pertinent Findings dizziness 10/19/2012 None rash Pertinent Findings pain 10/19/2012 None rash Pertinent Findings tenderness 10/19/2012 None rash Quality acute 10/19/2012 None rash Color violaceous 10/19/2012 None rash Severity mild 10/19/2012 None rash Prior Treatments pr eviously untreated 10/19/2012 None rash Triggers no known t riggers 10/19/2012 None edema Onset and Resolution gradual in onset 10/07/2012 None edema Quality pitting 10/07/2012 None edema Quality worsening 10/07/2012 None edema Location on both l egs 10/07/2012 None edema Limitation on Activities does not limit activities 10/07/2012 None edema Frequency of Episodes increasing 10/07/2012 None edema Onset of Symptom 2 months ago 10/07/2012 off and on edema Triggers no known associated factors 10/07/2012 None edema Pertinent Findings Denies dark urine 10/07/2012 None edema Pertinent Findings Denies decreased urinary output 10/07/2012 None edema Pertinent Findings Denies dyspnea 10/07/2012 None edema Pertinent Findings Denies nausea 10/07/2012 None edema Pertinent Findings Denies near syncope 10/07/2012 None edema Pertinent Findings Denies palpitations 10/07/2012 None edema Pertinent Findings Denies tachycardia 10/07/2012 None edema Quality acute 2012 None edema Location on both a nkles 2012 None edema Onset of Symptom 2 -3 weeks ago 2012 None hypertension Quality chr onic 2012 None hypertension Onset and Resolution ongoing 2012 None hypertension Blood Pressure Values pt checking blood pressure - see scanned document 2012 None hypertension Severity mi ld 2012 [address]ig[address] ress 2012 None hypertension Alleviating Factors medication 2012 None hypertension Exacerbating Factors stress 2012 None hypertension Pertinent Findings Denies anxiety 2012 None hypertension Pertinent Findings Denies confusion 2012 None hypertension Pertinent Findings Denies decreased energy 2012 None hypertension Pertinent Findings Denies dizziness 2012 None blood pressure followup Quality stable 08/18/2012 None blood pressure followup Onset and Re solution ongoing 08/18/2012 None blood pressure followup Onset of Symptom during adulthood 08/18/2012 None blood pressure followup Blood Pressu re Values pt checking blood pressure - see scanned document 08/18/2012 None blood pressure followup Severity mild 08/18/2012 None blood pressure followup Triggers stress 08/18/2012 None blood pressure followup Pertinent Findings Denies anxiety 08/18/2012 None blood pressure followup Pertinent Findings Denies decreased energy 08/18/2012 None blood pressure followup Pertinent Findings Denies dizziness 08/18/2012 None blood pressure followup Exacerbating Factors stress 08/18/2012 None blood pressure followup Alleviating Factor s medication 08/18/2012 None hypertension Quality chr onic 08/04/2012 None hypertension Onset and Resolution ongoing 08/04/2012 None hypertension Blood Pressure Values pt checking blood pressure - see scanned document 08/04/2012 None hypertension Severity mi ld 08/04/[address] ress 08/04/2012 None hypertension Alleviating Factors medication 08/04/2012 None hypertension Exacerbating Factors stress 08/04/2012 None hypertension Pertinent Findings Denies anxiety 08/04/2012 None hypertension Pertinent Findings Denies confusion 08/04/2012 None hypertension Pertinent Findings Denies decreased energy 08/04/2012 None hypertension Pertinent Findings Denies dizziness 08/04/2012 None blood pressure followup Quality chronic 07/01/2012 None blood pressure followup Onset and Re solution ongoing 07/01/2012 None blood pressure followup Onset of Symptom during adulthood 07/01/2012 None blood pressure followup Blood Pressu re Values pt checking blood pressure - see scanned document 07/01/2012 None blood pressure followup Frequency of Episodes unchanged 07/01/2012 Non e blood pressure followup Timing of Episodes in the morning 07/01/2012 None blood pressure followup Alleviating Factor s medication 07/01/2012 None blood pressure followup Triggers stress 07/01/2012 None back pain Location Cervi tre spine 07/01/2012 has had 2 previous back s urgeries back pain Location lumba r spine 07/01/2012 None back pain Quality chronic 07/01/2012 None back pain Onset and Resolution ongoing 07/01/2012 None back pain Limitation on Activities does not limit activities 07/01/2012 None back pain Frequency of Episodes unchanged 07/01/2012 None back pain Triggers activ ity 07/01/2012 None back pain Alleviating Factors medication 07/01/2012 None back pain Alleviating Factors activity 07/01/2012 sometimes walking helps back pain Severity moder ate 07/01/2012 None back pain Pertinent Findings Denies weight loss 07/01/2012 None back pain Pertinent Findings Denies weakness 07/01/2012 None back pain Radiating does not radiate 07/01/2012 right low back into right buttock hypertension Quality chr onic 05/20/2012 None hypertension Onset and Resolution ongoing 05/20/2012 None hypertension Blood Pressure Values pt checking blood pressure - see scanned document 05/20/2012 None hypertension Severity mi ld 05/20/[address] ress 05/20/2012 None hypertension Alleviating Factors medication 05/20/2012 None hypertension Exacerbating Factors stress 05/20/2012 None hypertension Pertinent Findings Denies anxiety 05/20/2012 None hypertension Pertinent Findings Denies confusion 05/20/2012 None hypertension Pertinent Findings Denies decreased energy 05/20/2012 None hypertension Pertinent Findings Denies dizziness 05/20/2012 None hypertension Quality chr onic 04/20/2012 None hypertension Onset and Resolution ongoing 04/20/2012 None hypertension Blood Pressure Values pt checking blood pressure - see scanned document 04/20/2012 None hypertension Pertinent Findings Denies dizziness 04/20/2012 None fatigue Quality worsening 04/20/2012 None fatigue Onset and Resolution ongoing 04/20/2012 None fatigue Pertinent Findings dizziness 04/20/2012 None fatigue Pertinent Findings Denies dyspnea 04/20/2012 None hypertension Severity mi ld 04/20/[address] ress 04/20/2012 None hypertension Alleviating Factors medication 04/20/2012 None hypertension Exacerbating Factors stress 04/20/2012 None hypertension Pertinent Findings Denies anxiety 04/20/2012 None hypertension Pertinent Findings Denies confusion 04/20/2012 None hypertension Pertinent Findings Denies decreased energy 04/20/2012 None fatigue Onset of Symptom 2 months ago 04/20/2012 None fatigue Limitation on Activities moderately limits activities 04/20/2012 None fatigue Timing of Episodes in the morning 04/20/2012 None fatigue Triggers no know n associated factors 04/20/2012 None fatigue Alleviating Factors rest 04/20/2012 None fatigue Pertinent Findings Denies back pain 04/20/2012 None back pain Location lumba r-sacral spine 03/10/2012 None back pain Quality consta nt 03/10/2012 None back pain Onset and Resolution ongoing 03/10/[address] Torres, Dr Jane on but not much improvement hypertension Quality chr onic 03/10/2012 None hypertension Onset and Resolution ongoing 03/10/2012 None hypertension Blood Pressure Values patient checking blood pressure at home - did not bring in readings 03/10/2012 states reading are good at home hypertension Severity mi ld 03/10/[address] ress 03/10/2012 None hypertension Alleviating Factors medication 03/10/2012 None hypertension Exacerbating Factors stress 03/10/2012 None hypertension Pertinent Findings Denies anxiety 03/10/2012 None hypertension Pertinent Findings Denies confusion 03/10/2012 None hypertension Pertinent Findings Denies decreased energy 03/10/2012 None hypertension Pertinent Findings Denies dizziness 03/10/2012 None cough Location in the th roat 02/25/2012 pt states it lopez and ti ckles cough Quality interrupts sleep 02/25/2012 None cough Quality constant 02/25/2012 None cough Onset of Symptom 5 days ago 02/25/2012 None cough Quality dry 02/25/2012 None cough Triggers post nasa l drip 02/25/2012 None cough Triggers change of seasons 02/25/2012 None cough Alleviating Factors OTC medications 02/25/2012 None cough Exacerbating Factors position change 02/25/2012 None cough Limitation on Activities moderately limits activities 02/25/2012 None cough Pertinent Findings Denies apnea 02/25/2012 None cough Pertinent Findings Denies chest discomfort 02/25/2012 None cough Pertinent Findings Denies chills 02/25/2012 None cough Pertinent Findings Denies ill contacts 02/25/2012 None cough Pertinent Findings lethargy 02/25/2012 None hypertension Quality chr onic 02/19/2012 None hypertension Onset and Resolution ongoing 02/19/2012 None hypertension Blood Pressure Values patient checking blood pressure at home - did not bring in readings 02/19/2012 states reading are good at home hypertension Severity mi ld 02/19/[address] ress 02/19/2012 None hypertension Alleviating Factors medication 02/19/2012 None hypertension Exacerbating Factors stress 02/19/2012 None hypertension Pertinent Findings Denies anxiety 02/19/2012 None hypertension Pertinent Findings Denies confusion 02/19/2012 None hypertension Pertinent Findings Denies dizziness 02/19/2012 None hypertension Pertinent Findings Denies decreased energy 02/19/2012 None cough Onset of Symptom 1 weeks ago 01/23/2012 None cough Quality productive 01/23/2012 green/yellow cough Location in the tequila ng 01/23/2012 None cough Onset and Resolution ongoing 01/23/2012 None cough Limitation on Activities does not limit activities 01/23/2012 None cough Frequency of Episodes decreasing 01/23/2012 None cough Triggers no known associated factors 01/23/2012 States she took a zpack l ast week. Symptoms improved, sinus congestion gone but she is still coughing. cerumen Location in the left ear 01/02/2012 None cerumen Quality worsening 01/02/2012 None cholesterol followup Pertinent Findings Denies cold intolerance 01/02/2012 None cholesterol followup Pertinent Findings Denies edema 01/02/2012 None cholesterol followup Pertinent Findings Denies obesity 01/02/2012 None cholesterol followup Quality chronic 01/02/2012 None cholesterol followup Quality decreased HDL 01/02/2012 None cholesterol followup Quality increased cholesterol 01/02/2012 None cholesterol followup Quality increased LDL 01/02/2012 None cholesterol followup Quality increased TG 01/02/2012 None cerumen Limitation on Activities moderately limits hearing 01/02/2012 None cerumen Triggers no know n associated factors 01/02/2012 None cerumen Alleviating Factors cerumenex 01/02/2012 None blood pressure followup Quality chronic 01/02/2012 None blood pressure followup Blood Pressu re Values pt checking blood pressure at home, did not bring in to clinic 01/02/2012 None blood pressure followup Severity mild 01/02/2012 None blood pressure followup Triggers stress 01/02/2012 None blood pressure followup Alleviating Factor s medication 01/02/2012 None blood pressure followup Exacerbating Factors stress 01/02/2012 None blood pressure followup Exacerbating Factors change in dietary habits 01/02/2012 None blood pressure followup Pertinent Findings Denies anxiety 01/02/2012 None blood pressure followup Pertinent Findings Denies dizziness 01/02/2012 None blood pressure followup Pertinent Findings Denies decreased energy 01/02/2012 None blood pressure followup Pertinent Findings Denies lethargy 01/02/2012 None cholesterol followup Onset and Resolution ongoing 01/02/2012 None cholesterol followup Severity moderate 01/02/2012 None cholesterol followup Significant Med ications statin 01/02/2012 None cholesterol followup Alleviating Factors medication 01/02/2012 None cholesterol followup Exacerbating Factors diet 01/02/2012 None mole check Location-Extremities on the right upper arm 12/20/2011 None hypertension Quality chr onic 12/20/2011 None hypertension Onset and Resolution ongoing 12/20/2011 None hypertension Onset of Symptom during adulthood 12/20/2011 None hypertension Blood Pressure Values not checking blood pressure at home 12/20/2011 None hypertension Severity mi ld 12/20/2011 None hypertension Pertinent Findings Denies tachycardia 12/20/2011 None hypertension Exacerbating Factors stress 12/20/2011 None hypertension Alleviating Factors medication 12/20/[address] ress 12/20/2011 None hyperlipidemia Onset and Resolution ongoing 12/20/2011 None hyperlipidemia Severity mild 12/20/2011 None hyperlipidemia Quality i ncreased cholesterol 12/20/2011 None hyperlipidemia Quality c hronic 12/20/2011 None hyperlipidemia Quality i ncreased LDL 12/20/2011 None mole check Quality sams ing 12/20/2011 None mole check Quality new 12/20/2011 None mole check Quality enlar ging 12/20/2011 None mole check Color flesh-c olored 12/20/2011 None mole check Limitation on Activities does not limit activities 12/20/2011 None mole check Severity mild 12/20/2011 None mole check Prior Treatments previously untreated 12/20/2011 None mole check Triggers no k nown triggers 12/20/2011 None mole check Significant History family history of skin cancer 12/20/2011 None mole check Pertinent Findings Denies itching 12/20/2011 None mole check Pertinent Findings tenderness 12/20/2011 None Advance Directives No Advance Directive data Encounters Encounter Performer Loca tion Codes Date ([id number]) [id number] EST. P ATIENT, LEVEL III Diagnosis: Essential (primary) hypertension[ICD10: I10] Diagnosis: Mixed hyperlipidemia[ICD10: E78.2] [facility] CPT- 4: 22392 06/14/2019 [id number]) [id number] EST. P ATIENT, LEVEL III Diagnosis: Cough[ICD10: R05] Diagnosis: Acute bronchitis, unspecified[ICD10: J20.9] [facility] CPT-4: 09207 05/11/2019 [id number]) [id number] EST. P ATIENT, LEVEL III Diagnosis: Essential (primary) hypertension[ICD10: I10] Diagnosis: Recurrent oral aphthae[ICD10: K12.0] [facility] CPT-4: 88178 02/16/2019 [id number]) [id number] EST. P ATIENT, LEVEL III Diagnosis: Cough[ICD10: R05] Diagnosis: Acute upper respiratory infection, unspecified[ICD10: J06.9] [facility] CPT-4: 19189 01/21/2019 ([id number]) 60470 EST. P ATIENT, LEVEL IV Diagnosis: Essential (primary) hypertension[ICD10: I10] Diagnosis: Mixed hyperlipidemia[ICD10: E78.2] Zoya Varela MD, [facility] CPT- 4: 06862 10/14/2018 ([id number]) 70297 EST. P ATIENT, LEVEL III Diagnosis: Essential (primary) hypertension[ICD10: I10] Diagnosis: Other specified cardiac arrhythmias[ICD10: I49.8] [facility] CPT-4: 71131 09/22/2018 ([id number]) [id number] EST. P ATIENT, LEVEL IV Diagnosis: Essential (primary) hypertension[ICD10: I10] Diagnosis: Allergic rhinitis due to pollen[ICD10: J30.1] Diagnosis: Sciatica, right side[ICD10: M54.31] Zoya Varela MD, [facility] CPT- 4: 81330 08/17/2018 ([id number]) 60295 EST. 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 P ATIENT, LEVEL III Diagnosis: Acute upper respiratory infection, unspecified[ICD10: J06.9] Kacy Varela MD, [facility] CPT-4: 62839 05/04/2018 ([id number]) 61127 EST. P ATIENT, LEVEL IV Diagnosis: Essential (primary) hypertension[ICD10: I10] Diagnosis: Type 2 diabetes mellitus without complications[ICD10: E11.9] Diagnosis: Mixed hyperlipidemia[ICD10: E78.2] Diagnosis: Localized edema[ICD10: R60.0] Zoya Varela MD, [facility] CPT-4: 17643 02/04/2018 ([id number]) 24353 EST. P ATIENT, LEVEL IV Diagnosis: Essential (primary) hypertension[ICD10: I10] [facility] CPT-4: 90941 09/17/2017 ([id number]) 75731 EST. P ATIENT, LEVEL III Diagnosis: Allergic contact dermatitis due to plants, except food[ICD10: L23.7] Kacy Varela MD, [facility] CPT-4: 74996 06/23/2017 ([id number]) 63328 EST. P ATIENT, LEVEL IV Diagnosis: Essential (primary) hypertension[ICD10: I10] Diagnosis: Mixed hyperlipidemia[ICD10: E78.2] Zoya Varela MD, [facility] CPT- 4: 51044 05/13/2017 ([id number]) 98560 EST. P ATIENT, LEVEL III Diagnosis: Allergic contact dermatitis due to plants, except food[ICD10: L23.7] Kacy Varela MD, [facility] CPT-4: 09621 03/21/2017 13299 EST. PATIENT, LEVEL III Diagnosis: Bitten or stung by nonvenomous insect and other nonvenomous arthropods, initial encounter[ICD10: W57.XXXA] Diagnosis: Cellulitis of left lower limb[ICD10: L03.116] Laura Varela MD, [facility] CPT-4: 42729 03/19/2017 ([id number]) [id number] EST. P ATIENT, LEVEL IV Diagnosis: Type 2 diabetes mellitus without complications[ICD10: E11.9] Diagnosis: Essential (primary) hypertension[ICD10: I10] Diagnosis: Other specified epidermal thickening[ICD10: L85.8] Zoya Varela MD, [facility] CPT-4: 45764 01/14/2017 [id number] EST. PATIENT, LEVEL III Diagnosis: Glossodynia[ICD10: K14.6] Kacy Varela MD, [facility] CPT- 4: 45398 09/23/2016 ([id number]) 93537 EST. P ATIENT, LEVEL IV Diagnosis: Encounter for screening mammogram for malignant neoplasm of breast[ICD10: Z12.31] Diagnosis: Encounter for immunization[ICD10: Z23] Zoya Varela MD, [facility] CPT-4: 42720 09/16/2016 ([id number]) 47405 EST. P ATIENT, LEVEL III Diagnosis: Diseases of lips[ICD10: K13.0] Diagnosis: Allergic rhinitis due to pollen[ICD10: J30.1] Kacy Varela MD, [facility] CPT-4: 20516 06/25/2016 ([id number]) 00729 EST. P ATIENT, LEVEL III Diagnosis: Essential (primary) hypertension[ICD10: I10] Kacy Varela MD, [facility] CPT-4: 55616 06/17/2016 56597 EST. PATIENT, LEVEL IV Diagnosis: Other acute sinusitis[ICD10: J01.80] Diagnosis: Acute laryngopharyngitis[ICD10: J06.0] Diagnosis: Other allergic rhinitis[ICD10: J30.89] Laura Varela MD, [facility] CPT-4: 02868 04/03/2016 ([id number]) 13171 EST. P ATIENT, LEVEL IV Diagnosis: Essential (primary) hypertension[ICD10: I10] Diagnosis: Localized edema[ICD10: R60.0] Diagnosis: Polyneuropathy, unspecified[ICD10: G62.9] Zoya Varela MD, [facility] CPT-4: 69007 03/13/2016 ([id number]) 07660 EST. P ATIENT, LEVEL IV Diagnosis: Essential (primary) hypertension[ICD10: I10] Diagnosis: Localized edema[ICD10: R60.0] Diagnosis: Type 2 diabetes mellitus without complications[ICD10: E11.9] Zoya Varela MD, [facility] CPT-4: 86077 01/30/2016 46545 EST. PATIENT, LEVEL IV Diagnosis: Localized edema[ICD10: R60.0] Laura Vareal MD, [facility] CPT-4: 15726 12/21/2015 ([id number]) 44809 EST. P ATIENT, LEVEL III Diagnosis: Essential (primary) hypertension[ICD10: I10] Diagnosis: Allergic rhinitis due to pollen[ICD10: J30.1] Diagnosis: Cervicalgia[ICD10: M54.2] Kacy Varela MD, [facility] CPT- 4: 24217 10/09/2015 75836 EST. PATIENT, LEVEL II Diagnosis: Contact dermatitis[ICD9: 692.9] Kacy Varela MD, [facility] CPT- 4: 32567 06/12/2015 ([id number]) 85019 EST. P ATIENT, LEVEL III Diagnosis: ESSENTIAL HYPERTENSION[ICD9: 401.9] Diagnosis: DIABETES TYPE II[ICD9: 250.00] Diagnosis: Anxiety[ICD9: 300.00] Kacy Varela MD, [facility] CPT-4: 68730 06/05/2015 ([id number]) 29204 EST. P ATIENT, LEVEL IV Diagnosis: Anxiety[ICD9: 300.00] Diagnosis: ALLERGIC RHINITIS[ICD9: 477.9] Diagnosis: ESOPHAGEAL REFLUX[ICD9: 530.81] Kacy Varela MD, [facility] CPT- 4: 13371 05/15/2015 ([id number]) 54801 EST. P ATIENT, LEVEL III Diagnosis: ESSENTIAL HYPERTENSION[ICD9: 401.9] Zoya Varela MD, [facility] CPT- 4: 73391 02/06/2015 ([id number]) 80033 EST. P ATIENT, LEVEL IV Diagnosis: ESSENTIAL HYPERTENSION[ICD9: 401.9] Diagnosis: EDEMA[ICD9: 782.3] Diagnosis: DIABETES TYPE II[ICD9: 250.00] Zoya Varela MD, [facility] CPT-4: 21110 01/10/2015 ([id number]) 61847 EST. P ATIENT, LEVEL IV Diagnosis: ESSENTIAL HYPERTENSION[ICD9: 401.9] Diagnosis: DIABETES TYPE II[ICD9: 250.00] Zoya Varela MD, [facility] CPT-4: 64373 07/19/2014 ([id number]) 85164 EST. P ATIENT, LEVEL III Diagnosis: Left ankle pain[ICD9: 719.47] Kacy Varela MD, [facility] CPT- 4: 97547 06/17/2014 ([id number]) 26252 EST. P ATIENT, LEVEL III Diagnosis: ESSENTIAL HYPERTENSION[ICD9: 401.9] Diagnosis: Elevated blood sugar[ICD9: 790.29] Zoya Varela MD, [facility] CPT- 4: 07118 04/19/2014 ([id number]) 22202 EST. P ATIENT, LEVEL IV Diagnosis: ESSENTIAL HYPERTENSION[SNOMED: 95701274] Diagnosis: ESOPHAGEAL REFLUX[ICD9: 530.81] Zoya Varela MD, [facility] CPT-4: 27763 04/11/2014 ([id number]) 21844 EST. P ATIENT, LEVEL IV Diagnosis: ALLERGIC RHINITIS[ICD9: 477.9] Diagnosis: Anxiety[ICD9: 300.00] Diagnosis: Dyspnea[ICD9: 786.09] Diagnosis: ESOPHAGEAL REFLUX[ICD9: 530.81] Kacy Varela MD, [facility] CPT- 4: 15179 03/10/2014 ([id number]) 23562 EST. P ATIENT, LEVEL III Diagnosis: ALLERGIC RHINITIS[ICD9: 477.9] Diagnosis: ESSENTIAL HYPERTENSION[SNOMED: 05560107] Kacy Varela MD, [facility] CPT-4: 69992 02/02/2014 ([id number]) 94459 EST. P ATIENT, LEVEL III Diagnosis: ESSENTIAL HYPERTENSION[SNOMED: 47601859] Diagnosis: Skin irritation[ICD9: 709.9] Zoya Varela MD, [facility] CPT-4: 85963 10/25/2013 ([id number]) 04503 EST. P ATIENT, LEVEL III Diagnosis: HYPERLIPIDEMIA[ICD9: 272.4] Diagnosis: ESSENTIAL HYPERTENSION[SNOMED: 44784413] Diagnosis: EDEMA[ICD9: 782.3] Diagnosis: Encounter for long-term (current) use of other medications[ICD9: V58.69] Zoya Varela MD, [facility] CPT-4: 75808 08/24/2013 ([id number]) 76857 EST. P ATIENT, LEVEL III Diagnosis: ESSENTIAL HYPERTENSION[SNOMED: 29797814] Zoya Varela MD, [facility] CPT-4: 76397 07/26/2013 ([id number]) 38458 EST. P ATIENT, LEVEL III Diagnosis: ESSENTIAL HYPERTENSION[SNOMED: 97779422] Zoya Varela MD, [facility] CPT-4: 83724 06/30/2013 ([id number]) 76691 EST. P ATIENT, LEVEL III Diagnosis: ESSENTIAL HYPERTENSION[SNOMED: 66451752] Zoya Varela MD, [facility] CPT-4: 58450 06/24/2013 ([id number]) 33818 EST. P ATIENT, LEVEL IV Diagnosis: ESSENTIAL HYPERTENSION[SNOMED: 00155317] Diagnosis: Leg pain[ICD9: 729.5] Diagnosis: Leg swelling[ICD9: 729.81] Zoya Varela MD, [facility] CPT-4: 01091 12/01/2012 ([id number]) 61802 EST. P ATIENT, LEVEL III Diagnosis: Shingles[ICD9: 053.9] Zoya Varela MD, [facility] CPT-4: 23343 10/19/2012 ([id number]) 24127 EST. P ATIENT, LEVEL IV Diagnosis: EDEMA[ICD9: 782.3] Diagnosis: ESSENTIAL HYPERTENSION[SNOMED: 57882055] Zoya Varela MD, [facility] CPT-4: 18948 10/07/2012 ([id number]) 21985 EST. P ATIENT, LEVEL IV Diagnosis: ESSENTIAL HYPERTENSION[SNOMED: 83574662] Diagnosis: EDEMA[ICD9: 782.3] Diagnosis: Irritable bowel disease[ICD9: 564.1] Zoya Varela MD, [facility] CPT-4: 90536 2012 ([id number]) 15507 EST. P ATIENT, LEVEL III Diagnosis: ESSENTIAL HYPERTENSION[SNOMED: 60468206] Zoya Varela MD, [facility] CPT-4: 94206 08/18/2012 ([id number]) 84810 EST. P ATIENT, LEVEL III Diagnosis: ESSENTIAL HYPERTENSION[SNOMED: 30276687] Zoya Varela MD, [facility] CPT-4: 72566 08/04/2012 ([id number]) 87413 EST. P ATIENT, LEVEL IV Diagnosis: ESSENTIAL HYPERTENSION[SNOMED: 92659730] Diagnosis: Lumbago[ICD9: 724.2] Diagnosis: HYPERLIPIDEMIA[ICD9: 272.4] Zoya Varela MD, [facility] CPT-4: 44187 07/01/2012 ([id number]) 47315 EST. P ATIENT, LEVEL III Diagnosis: ESSENTIAL HYPERTENSION[SNOMED: 80067579] Zoya Varela MD, [facility] CPT-4: 56812 05/20/2012 ([id number]) 73234 EST. P ATIENT, LEVEL IV Diagnosis: ESSENTIAL HYPERTENSION[SNOMED: 93893249] Diagnosis: Hot flash, menopausal[ICD9: 627.2] Zoya Varela MD, [facility] CPT- 4: 14405 04/20/2012 61832 EST. PATIENT, LEVEL IV Diagnosis: SPASM OF MUSCLE[ICD9: 728.85] Diagnosis: Back pain[ICD9: 724.5] Diagnosis: ESSENTIAL HYPERTENSION[SNOMED: 40377431] Zoya Varela MD, [facility] CPT-4: 86939 03/10/2012 ([id number]) 54488 EST. 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 P ATIENT, LEVEL III Diagnosis: ESSENTIAL HYPERTENSION[SNOMED: 67789494] Zoya Varela MD, [facility] CPT-4: 26048 02/19/2012 99357 EST. PATIENT, LEVEL IV Diagnosis: ESSENTIAL HYPERTENSION[SNOMED: 91365609] Diagnosis: Cough[ICD9: 786.2] Kacy Varela MD, [facility] CPT-4: 31479 01/23/2012 ([id number]) 33945 EST. P ATIENT, LEVEL IV Diagnosis: HYPERLIPIDEMIA[ICD9: 272.4] Diagnosis: ESSENTIAL HYPERTENSION[SNOMED: 71031924] Zoya Varela MD, [facility] CPT-4: 52733 01/02/2012 OFFICE VISIT, NEW - LEVEL 4 Diagnosis: ESSENTIAL HYPERTENSION[SNOMED: 49373286] Diagnosis: HYPERLIPIDEMIA[ICD9: 272.4] Diagnosis: IMPACTED CERUMEN[ICD9: 380.4] Diagnosis: Muscle spasm[ICD9: 728.85] Diagnosis: CHRONIC TENSION HEADACHE[ICD9: 339.12] Diagnosis: Neck pain, chronic[ICD9: 723.1] Diagnosis: Change in skin mole[ICD9: 216.9] [facility] CPT-4: 10257 12/20/2011 Plan of Care Planned Activity Notes C odes Status Date Visit Plan: Hypertension - not opti reymundo controlled - continue with current medications, continue with no added salt diet. Pt has been encouraged to exercise daily. The pt has been advised to call the office if the re are any acute concerns about change in blood pressure readings at home. - she has only been taking her metoprolol one time a day - I have recommended that this medication be taken twice daily - - due to her symptoms - she is only taking it one time a day - hopefully this will help to decrease the lability of her blood pressure with the twice daily dosing. Cold sores - restart acyclovir. Hyperlipidemia - pt has been counseled about appropriate diet, exercise, and need for low fat food choices. I have discussed the need for the patient to take medications as prescribed. If the patient has negative side effects from the medication, they are to CALL the office and not abruptly discontinue the medication without discussion with a practitioner in the office. We will check labs in 3-6 months for follow up on the patient's chronic medical problem and to assure normal liver response to medications. 06/14/2019 Appointment: Zoya Varela WPtel: [phone] [phone] (15 min) Moderate 06/14/2019 Patient Education: Patient Medication Summary Completed 06/14/2019 Patient Education: Cholesterol Management Completed 06/14/2019 Visit Plan: Bronchitis - acute case of bronchitis identified. Pt has been given antibiotics, breathing treatments as appropriate, and pt has been instructed to call if symptoms are not improved, or if symptoms acutely worsen. 05/11/2019 Appointment: [facility] Moses [facility]el[phone] [phone] (15 min) Moderate 05/11/2019 Patient Education: Patient Medication Summary Completed 05/11/2019 Visit Plan: Hypertension - well con trolled - continue with current medications, continue with no added salt diet. Pt has been encouraged to exercise daily. The pt has been advised to call the office if there are any acute concerns about change in blood pressure readings at home. Canker sores - rx for acyclovir given to pt to start - can use PRN for cold sores. 02/16/2019 Appointment: [phone] [place] (15 min) Moderate 02/16/2019 Patient Education: Patient Medication Summary Completed 02/16/2019 Visit Plan: URI - Pt advised to inc rease fluids, vitamin C. Discussed natural and expected course of this diagnosis and need to alert me if symptoms do not follow expected course, or if any worse and i will send in an antibiotic. Patient verbalized understanding of plan. 01/21/2019 Appointment: Kacy Moses WPtel: [phone] [facility] [phone] [place] (15 min) Moderate 01/21/2019 Patient Education: Patient Medication Summary Completed 01/21/2019 Appointment: Zoya Varela WPtel: [phone] [facility] [place] (15 min) Moderate 12/15/2018 Visit Plan: Hypertension - well con trolled - continue with current medications, continue with no added salt diet. Pt has been encouraged to exercise daily. The pt has been advised to call the office if there are any acute concerns about change in blood pressure readings at home. Hyperlipidemia - pt has been counseled about appropriate diet, exercise, and need for low fat food choices. I have discussed the need for the patient to take medications as prescribed. If the patient has negative side effects from the medication, they are to CALL the office and not abruptly discontinue the medication without discussion with a practitioner in the office. We will check labs in 3-6 months for follow up on the patient's chronic medical problem and to assure normal liver response to medications. 10/14/2018 Appointment: [phone] [facility] [place] (15 min) Moderate 10/14/2018 Patient Education: Patient Medication Summary Completed 10/14/2018 Patient Education: Cholesterol Management Completed 10/14/2018 Visit Plan: Hypertension - due to h er low heart rate - decrease dose of metoprolol, keep close eye on blood pressure- may need to adjust other medications based on the readings of her blood pressure over the next few days. Bradycardia - discussed with pt - if symptoms acutely worsen, she will need to go to the ER, - however the plan is as follows: - decrease Metoprolol to one pill twice daily - keep track of blood pressure and heart rate and bring to the office next Friday. 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 09/22/2018 Appointment: Zoya Varela WPtel: [phone] [phone] (15 min) Moderate 09/22/2018 Patient Education: Patient Medication Summary Completed 09/22/2018 Appointment: [phone] [facility] (15 min) Moderate 09/09/2018 Visit Plan: Hypertension - well con trolled - continue with current medications, continue with no added salt diet. Pt has been encouraged to exercise daily. The pt has been advised to call the office if there are any acute concerns about change in blood pressure readings at home. URI - Pt advised to increase fluids, vitamin C. Discussed natural and expected course of this diagnosis and need to alert me if symptoms do not follow expected course, or if any worse. RX sent to patient's pharmacy. 08/17/2018 Patient Education: Patient Medication Summary Completed 08/17/2018 Patient Education: Hypertension Completed 08/17/2018 Appointment: Injection 07/28/2018 Patient Education: Patient Medication Summary Completed 07/28/2018 Visit Plan: Hypertension - well con trolled - continue with current medications, continue with no added salt diet. Pt has been encouraged to exercise daily. The pt has been advised to call the office if there are any acute concerns about change in blood pressure readings at home. 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 06/08/2018 Appointment: [facility]Ptel[facility] [phone] [phone] (15 min) Moderate 06/08/2018 Patient Education: Patient Medication Summary Completed 06/08/2018 Visit Plan: URI - Pt advised to inc rease fluids, vitamin C. Discussed natural and expected course of this diagnosis and need to alert me if symptoms do not follow expected course, or if any worse. RX sent to patient's pharmacy. 05/04/2018 Appointment: Kacy Moses WPtel: [phone] [phone] [place] (30 min) Complex 05/04/2018 Patient Education: Patient Medication Summary Completed 05/04/2018 Appointment: Injection 04/24/2018 Patient Education: Patient Medication Summary Completed 04/24/2018 Visit Plan: Hypertension - well con trolled - continue with current medications, continue with no added salt diet. Pt has been encouraged to exercise daily. The pt has been advised to call the office if there are any acute concerns about change in blood pressure readings at home. Diabetes Mellitus - controlled - per recent FSBS reports. I have recommended for the patient to have follow up labs prior to the next office visit. - Diet controlled DM - Pt to call for any acute concerns, complaints, or if the blood glucose readings are starting to become less controlled. Hyperlipidemia - pt has been counseled about appropriate diet, exercise, and need for low fat food choices. I have discussed the need for the patient to take medications as prescribed. If the patient has negative side effects from the medication, they are to CALL the office and not abruptly discontinue the medication without discussion with a practitioner in the office. We will check labs in 3-6 months for follow up on the patient's chronic medical problem and to assure normal liver response to medications. Osteoarthritis and Rheumatoid Arthritis - continue with treatments per Dr. Madison. Edema bilateral lower extremities - recommended compression socks to lower extremities. 02/04/2018 Appointment: [facility]la [facility]Ptel[phone] [phone] [place] (15 min) Moderate 02/04/2018 Patient Education: Patient Medication Summary Completed 02/04/2018 Visit Plan: Medicare Exam - today w e discussed the patients past history, immunizations, preventative exams/evaluations - colonoscopy, fecal occult blood testing, routine labs for renal function, glucose, cholesterol, osteoporosis evaluations, cardiovascular testing and cancer screenings. We have also discussed mental health and the signs/symptoms of depression. The patient was advised of home safety evaluations and the need to make sure that as the aging process continues, we need to be aware of different ways to make the home a safer place to reside. The patient has also been counseled that exercise is necessary - and of utmost importance as we age to help decrease fall risk and to maintain independece in the home. Today we discussed the need for the patient to create paperwork for Advanced directives as well as for the patient to provide this office with a copy of her DOPA paperwork for health care surrogate. 02/03/2018 Patient Education: Patient Medication Summary Completed 02/03/2018 Appointment: Laura Velasco WPtel: [facility] [facility] - Annual Wellness Visit 01/28/2018 Appointment: Zoya Varela WPtel: [phone] (15 min) Moderate 01/15/2018 Visit Plan: Hypertension - well con trolled - continue with current medications, continue with no added salt diet. Pt has been encouraged to exercise daily. The pt has been advised to call the office if there are any acute concerns about change in blood pressure readings at home. Hyperlipidemia - pt has been counseled about appropriate diet, exercise, and need for low fat food choices. I have discussed the need for the patient to take medications as prescribed. If the patient has negative side effects from the medication, they are to CALL the office and not abruptly discontinue the medication without discussion with a practitioner in the office. We will check labs in 3-6 months for follow up on the patient's chronic medical problem and to assure normal liver response to medications. Arthritis - continue with treatments per Dr. Madison. 09/17/2017 Appointment: Zoya Varela WPtel: [phone] (15 min) Moderate 09/17/2017 Patient Education: Patient Medication Summary Completed 09/17/2017 Patient Education: Obesity Completed 09/17/2017 Patient Education: Hypertension Completed 09/17/2017 Care Plan: SCREENINGMAMMOGRAPHYDIGITAL LOINC : 80541-7 Pending 09/17/2017 Visit Plan: Poison Sarah -kenalog inj ection today in the office-start prednisone tomorrow pt is to use topical treatments as directed. Pt is cleanse clothing in hot water with soap, and call if symptoms do not improve or if they worsen. 06/23/2017 Appointment: Kacy Moses WPtel: [phone] [phone] (15 min) Moderate 06/23/2017 Patient Education: Patient Medication Summary Completed 06/23/2017 Visit Plan: Hypertension - well con trolled - continue with current medications, continue with no added salt diet. Pt has been encouraged to exercise daily. The pt has been advised to call the office if there are any acute concerns about change in blood pressure readings at home. Hyperlipidemia - pt has been counseled about appropriate diet, exercise, and need for low fat food choices. I have discussed the need for the patient to take medications as prescribed. If the patient has negative side effects from the medication, they are to CALL the office and not abruptly discontinue the medication without discussion with a practitioner in the office. We will check labs in 3-6 months for follow up on the patient's chronic medical problem and to assure normal liver response to medications. 05/13/2017 Appointment: Zoya Varela WPtel: [phone] (15 min) Moderate 05/13/2017 Patient Education: Patient Medication Summary Completed 05/13/2017 Patient Education: Obesity Completed 05/13/2017 Patient Education: Hypertension Completed 05/13/2017 Visit Plan: Poison Sarah -kenalog inj ection today in the office-start prednisone tomorrow pt is to use topical treatments as directed. Pt is cleanse clothing in hot water with soap, and call if symptoms do not improve or if they worsen. 03/21/2017 Appointment: Kacy Moses WPtel: [phone] [phone] (15 min) Moderate 03/21/2017 Patient Education: Patient Medication Summary Completed 03/21/2017 Visit Plan: Tick - tick with head r emoved - will start abx - The patient was instructed in appropriate wound care. The patient was instructed to use the antibiotic ointment as per RX. The patient is to call for any change in symptoms, increase in size of the lesion, increase in pain. 03/19/2017 Appointment: Laura Velasco WPtel: [phone] [phone] (15 min) Moderate 03/19/2017 Patient Education: Patient Medication Summary Completed 03/19/2017 Patient Education: Obesity Completed 03/19/2017 Visit Plan: Medicare Exam - today w e discussed the patients past history, immunizations, preventative exams/evaluations - colonoscopy, fecal occult blood testing, routine labs for renal function, glucose, cholesterol, osteoporosis evaluations, cardiovascular testing and cancer screenings. We have also discussed mental health and the signs/symptoms of depression. The patient was advised of home safety evaluations and the need to make sure that as the aging process continues, we need to be aware of different ways to make the home a safer place to reside. The patient has also been counseled that exercise is necessary - and of utmost importance as we age to help decrease fall risk and to maintain independece in the home. Today we discussed the need for the patient to create paperwork for Advanced directives as well as for the patient to provide this office with a copy of her DOPA paperwork for health care surrogate. Cerumen Impaction - The impacted cerumen was removed with the use of the ear currette and water pick. The patient tolerated the procedure without incident and had improvement in hearing. 01/22/2017 Appointment: Laura Velasco WPtel: [phone] [facility] [facility] - Annual Wellness Visit 01/22/2017 Appointment: Nurse Visit 01/22/2017 Patient Education: Patient Medication Summary Completed 01/22/2017 Visit Plan: Diabetes Mellitus - con trinhed - per recent FSBS reports. I have recommended for the patient to have follow up labs prior to the next office visit. The patient has been instructed to continue with current medications as previously directed, continue with regular FSBS monitoring to assure continued control of diabetes. Pt to call for any acute concerns, complaints, or if the blood glucose readings are starting to become less controlled. Rash on left Elbow - RX for Hypertension - well controlled - continue with current medications, continue with no added salt diet. Pt has been encouraged to exercise daily. The pt has been advised to call the office if there are any acute concerns about change in blood pressure readings at home. 01/14/2017 Appointment: [facility]el[phone] [facility] (15 min) Moderate 01/14/2017 Patient Education: Patient Medication Summary Completed 01/14/2017 Patient Education: Obesity Completed 01/14/2017 Patient Education: Hypertension Completed 01/14/2017 Visit Plan: Dry mouth-oral pain-dis cussed with Dr Varela- recommend patient start biotene mouth rinses to increase moisture-ok to decrease lyrica to see if symptoms improve-follow up in 2-3 weeks, sooner if needed. Patient verbalized understanding of plan. 09/23/2016 Appointment: Kacy Moses WPtel: [phone] [phone] [place] (15 min) Moderate 09/23/2016 Patient Education: Patient Medication Summary Completed 09/23/2016 Patient Education: Obesity Completed 09/23/2016 Visit Plan: Hypertension - well con trolled - continue with current medications, continue with no added salt diet. Pt has been encouraged to exercise daily. The pt has been advised to call the office if there are any acute concerns about change in blood pressure readings at home. pnuemovax 23 today Hyperlipidemia - pt has been counseled about appropriate diet, exercise, and need for low fat food choices. I have discussed the need for the patient to take medications as prescribed. If the patient has negative side effects from the medication, they are to CALL the office and not abruptly discontinue the medication without discussion with a practitioner in the office. We will check labs in 3-6 months for follow up on the patient's chronic medical problem and to assure normal liver response to medications. 09/16/2016 Appointment: [facility]el[phone] [place] (15 min) Moderate 09/16/2016 Patient Education: Patient Medication Summary Completed 09/16/2016 Patient Education: Obesity Completed 09/16/2016 Care Plan: SCREENINGMAMMOGRAPHYDIGITAL LOINC : 84450-3 Pending 09/16/2016 Visit Plan: Cracked/painful lips-ba cterial culture today in the office-discussed keeping lips well moisturized-get new toothbrush, lip gloss, etc. Call if symptoms do not resolve or if any worse. 06/25/2016 Visit Plan: Cracked/painful lips-ba cterial culture today in the office-discussed keeping lips well moisturized-get new toothbrush, lip gloss, etc. Call if symptoms do not resolve or if any worse. 06/25/2016 Appointment: Kacy Moses WPtel: [phone] [facility] [place] [address] (15 min) Moderate 06/25/2016 Patient Education: Patient Medication Summary Completed 06/25/2016 Visit Plan: Hypertension - well con trolled - continue with current medications, continue with no added salt diet. Pt has been encouraged to exercise daily. The pt has been advised to call the office if there are any acute concerns about change in blood pressure readings at home. 06/17/2016 Appointment: (15 min) Moderate 06/17/2016 Patient Education: Patient Medication Summary Completed 06/17/2016 Patient Education: Obesity Completed 06/17/2016 Appointment: Injection 04/04/2016 Patient Education: Patient Medication Summary Completed 04/04/2016 Visit Plan: Sinusitis - Pt has acut e infection - pain in face, maxillary region, Pt informed to use decongestant, RX given to patient, sinus rinses also recommended. Call if symptoms do not show improvement. URI - Pt advised to increase fluids, vitamin C. Discussed natural and expected course of this diagnosis and need to alert me if symptoms do not follow expected course, or if any worse. RX sent to patient's pharmacy. Allergies - chronic - recommended pt to use allergy medication as prescribed. Pt has been counseled as to the appropriate use of the medication. Pt to call if allergy symptoms are not controlled with the medication. If using nasal spray, instructions as follows: Nasal spray- use twice daily, one spray per nostril twice daily, after 30 minutes, rinse out nose with saline spray.. Use opposite hand per nostril to spray in the nasal steroid allergy spray. 04/03/2016 Appointment: Kacy Moses WPtel: [phone] [phone] (30 min) Complex 04/03/2016 Patient Education: Patient Medication Summary Completed 04/03/2016 Patient Education: Obesity Completed 04/03/2016 Visit Plan: Hypertension - well con itzel - continue with current medications, continue with no added salt diet. Pt has been encouraged to exercise daily. The pt has been advised to call the office if there are any acute concerns about change in blood pressure readings at home. Edema - pt has been advised to elevate legs to prevent dependent edema, compression has been recommended to help to naturally decrease peripheral edema. Diuretic use has been discussed and pt has been instructed in appropriate use of such medication as necessary to further attempt to reduce peripheral edema. Peripheral Neuropathy - started pt on gabapentin - pt to call if symptoms are not improving. 03/13/2016 Patient Education: Patient Medication Summary Completed 03/13/2016 Patient Education: Obesity Completed 03/13/2016 Patient Education: Hypertension Completed 03/13/2016 Appointment: Zoya Varela WPtel: [phone] [phone] (15 min) Moderate 02/28/2016 Appointment: Zoya Varela WPtel: [phone] [phone] (15 min) Moderate 02/01/2016 Visit Plan: Hypertension - uncontro lled - the patient's medications have been modified as documented in the visit note. The patient has been counseled to cut back on salt in diet for a no added salt diet, low fat d iet, start an exercise program with low weight bearing exercises and higher aerobic activity for heart health. The patient is to check blood pressure readings as an outpatient and either fax, call, or email the readings to the office next week for practitioner to review. The pt is to call for acute concerns. Due to edema, will have to decrease amlodipine with a high likelihood of discontinuation of the Amlodipine - I have recommended the following blood pressure medication changes. Instructions given to Natali as follows: increase doxazosin to 1.5 of the 4mg pills twice daily decrease amlodipine to 1/2 pill daily - check blood pressure at least twice daily and bring by clinic - if the pressure stays below 130 we should be able to stop the amlodipine. i believe that the swelling in your legs is partially due to the amlodipine causing dilation of vessels and edema. Edema - take lasix twice daily x 2 days, elevate legs and use compression on lower legs and hopefully with the decrease in the amlodipine we will see an improvement in her symptoms of swelling. DM - diet controlled - Natali has had elevated hgba1c levels in the past - we have discussed her need to cut back on carbohydrates, sugary foods, and increase her activity to prevent future need for medication as she has a strong family history of DM. I have told her that I agree with Dr. Madison - that she needs treatment of her inflammatory arthritis - and to carry through with his plans for treatment. 01/30/2016 Appointment: Zoya Varela WPtel: [facility] (15 min) Moderate 01/30/2016 Patient Education: Patient Medication Summary Completed 01/30/2016 Patient Education: Obesity Completed 01/30/2016 Patient Education: Hypertension Completed 01/30/2016 Care Plan: BMI Above normal followup TDA F-MGMT EDUC & TRAIN 1 PT Ordered 01/30/2016 Appointment: (30 min) Complex 01/09/2016 Visit Plan: Edema - pt has been adv ised to elevate legs to prevent dependent edema, compression has been recommended to help to naturally decrease peripheral edema. Diuretic use has been discussed and pt has been i nstructed in appropriate use of such medication as necessary to further attempt to reduce peripheral edema. No added salt, heart healthy diet recommended. 12/21/2015 Patient Education: Patient Medication Summary Completed 12/21/2015 Visit Plan: Hypertension - well con trolled - continue with current medications, continue with no added salt diet. Pt has been encouraged to exercise daily. The pt has been advised to call the office if there are any acute concerns about change in blood pressure readings at home. Allergies - chronic - recommended pt to use allergy medication as prescribed. Pt has been counseled as to the appropriate use of the medication. Pt to call if allergy symptoms are not controlled with the medication. If using nasal spray, instructions as follows: Nasal spray- use twice daily, one spray per nostril twice daily, after 30 minutes, rinse out nose with saline spray.. Use opposite hand per nostril to spray in the nasal steroid allergy spray. Chronic neck pain- muscle spasms-refill flexeril for prn use 10/09/2015 Appointment: (30 min) Complex 10/09/2015 Patient Education: Patient Medication Summary Completed 10/09/2015 Patient Education: Hypertension Completed 10/09/2015 Patient Education: .Cervicalgia Neck Pain Completed 10/09/2015 Appointment: Injection 07/28/2015 Patient Education: Patient Medication Summary Completed 07/28/2015 Visit Plan: Contact dermatitis-jose log injection today in the office-start prednisone taper tomorrow- Pt is cleanse clothing in hot water with soap, and call if symptoms do not improve or if they worsen. Start acyclovir until shingles are completely ruled out-call if any increase or change in symptoms-call if symptoms do not resolve-call for any visual changes or as discussed. Patient verbalized understanding of plan. 06/12/2015 Appointment: (15 min) Moderate 06/12/2015 Patient Education: Patient Medication Summary Completed 06/12/2015 Visit Plan: Hypertension - well con trolled - continue with current medications, continue with no added salt diet. Pt has been encouraged to exercise daily. The pt has been advised to call the office if there are any acute concerns about change in blood pressure readings at home. Diabetes-diet controlled-check Hgb A1C Chronic Depression and anxiety - the pt has symptoms of chronic anxiety and depression that have been fairly well controlled since the last office visit. The pt has expected periods of exacerbation with abatement of the symptoms with change in situational exposure. No change in current medications. 06/05/2015 Appointment: (15 min) Moderate 06/05/2015 Patient Education: Patient Medication Summary Completed 06/05/2015 Patient Education: Hypertension Completed 06/05/2015 Appointment: (30 min) Complex 05/16/2015 Visit Plan: Allergies - chronic - r ecommended pt to use allergy medication as prescribed. Pt has been counseled as to the appropriate use of the medication. Pt to call if allergy symptoms are not controlled with th e medication. If using nasal spray, instructions as follows: Nasal spray- use twice daily, one spray per nostril twice daily, after 30 minutes, rinse out nose with saline spray.. Use opposite hand per nostril to spray in the nasal steroid allergy spray. Kenalog injection today in the office Anxiety-panic attacks- worried that the 0.5mg xanax will make her too drowsy-lower dose provided and instructed on use Esophageal Reflux - the patient has been counseled against excessive intake of caffeine, spicy foods, peppermint, and cinnamon - all of which can exacerbate esophageal reflux. The patient is to take medications as prescribed and call the office if the symptoms are not improving. 05/15/2015 Patient Education: Patient Medication Summary Completed 05/15/2015 Visit Plan: Hypertension - well con trolled - continue with current medications, continue with no added salt diet. Pt has been encouraged to exercise daily. The pt has been advised to call the office if there are any acute concerns about change in blood pressure readings at home. 02/06/2015 Appointment: Zoya Varela WPtel: [phone] [phone] Follow up 02/06/2015 Patient Education: Patient Medication Summary Completed 02/06/2015 Patient Education: Hypertension Completed 02/06/2015 Visit Plan: Hypertension - uncontro lled - the patient's medications have been modified as documented in the visit note. The patient has been counseled to cut back on salt in diet for a no added salt diet, low fat d iet, start an exercise program with low weight bearing exercises and higher aerobic activity for heart health. The patient is to check blood pressure readings as an outpatient and either fax, call, or email the readings to the office next week for practitioner to review. The pt is to call for acute concerns. Diabetes Mellitus - controlled - per recent FSBS reports. I have recommended for the patient to have follow up labs prior to the next office visit. The patient has been instructed to continue with current medications as previously directed, continue with regular FSBS monitoring to assure continued control of diabetes. Pt to call for any acute concerns, complaints, or if the blood glucose readings are starting to become less controlled. Edema - pt has been advised to elevate legs to prevent dependent edema, compression has been recommended to help to naturally decrease peripheral edema. Diuretic use has been discussed and pt has been instructed in appropriate use of such medication as necessary to further attempt to reduce peripheral edema. 01/10/2015 Appointment: Zoya Varela WPtel: [phone] [phone] [facility] 01/10/2015 Patient Education: Patient Medication Summary Completed 01/10/2015 Patient Education: Hypertension Completed 01/10/2015 Visit Plan: Hypertension - well con trolled - continue with current medications, continue with no added salt diet. Pt has been encouraged to exercise daily. The pt has been advised to call the office if there are any acute concerns about change in blood pressure readings at home. Diabetes Mellitus - controlled - per recent FSBS reports. I have recommended for the patient to have follow up labs prior to the next office visit. The patient has been instructed to continue with current medications as previously directed, continue with regular FSBS monitoring to assure continued control of diabetes. Pt to call for any acute concerns, complaints, or if the blood glucose readings are starting to become less controlled. 07/19/2014 Appointment: [facility]la WPtel: [phone] Follow up 07/19/2014 Patient Education: Patient Medication Summary Completed 07/19/2014 Patient Education: Hypertension Completed 07/19/2014 Care Plan: SCREENINGMAMMOGRAPHYDIGITAL [facility] : [address]-6 Ordered 07/19/2014 Visit Plan: Left ankle pain-sprain- recommend rest ice and anti inflammatories as directed-also plan for xray left ankle 06/17/2014 Appointment: Sick 06/17/2014 Patient Education: Patient Medication Summary Completed 06/17/2014 Visit Plan: Elevated blood sugars-d iabetes and diet education provided today in the office-discussed cutting out any sugary drinks, cutting back on sweets, and decreasing portion sizes of breads, pastas, potatoes. Recommend increasing exercise as well. Questions answered regarding diabetes and diabetic diet. Plan to repeat labs in 3 months. Patient verbalized understanding of plan. Hypertension - well controlled - continue with current medications, continue with no added salt diet. Pt has been encouraged to exercise daily. The pt has been advised to call the office if there are any acute concerns about change in blood pressure readings at home. 04/19/2014 Appointment: Kacy Moses WPtel: [phone] Diabetic education 04/19/2014 Patient Education: Patient Medication Summary Completed 04/19/2014 Patient Education: Hypertension Completed 04/19/2014 Visit Plan: Hypertension - well con trolled - continue with current medications, continue with no added salt diet. Pt has been encouraged to exercise daily. The pt has been advised to call the office if there are any acute concerns about change in blood pressure readings at home. Esophageal Reflux - the patient has been counseled against excessive intake of caffiene, spicy foods, peppermint, and cinnamon - all of which can exacerbate esophageal reflux. The patient is to take medications as prescribed and call the office if the symptoms are not improving. Hyperlipidemia - pt has been counseled about appropriate diet, exercise, and need for low fat food choices. I have discussed the need for the patient to take medications as prescribed. If the patient has negative side effects from the medication, they are to CALL the office and not abruptly discontinue the medication without discussion with a practicioner in the office. We will check labs in 3-6 months for follow up on the patient's chronic medical problem and to assure normal liver response to medications. 04/11/2014 Appointment: Zoya Varela WPtel: [phone] [phone] Follow up 04/11/2014 Patient Education: Patient Medication Summary Completed 04/11/2014 Patient Education: Hypertension Completed 04/11/2014 Visit Plan: Allergies - chronic - r ecommended pt to use allergy medication as prescribed. Pt has been counseled as the the appropriate use of the medication. Pt to call if allergy symptoms are not controlled with t he medication. If using nasal spray, instructions as follows: Nasal spray- use twice daily, one spray per nostril twice daily, after 30 minutes, rinse out nose with saline spray.. Use opposite hand per nostril to spray in the nasal steroid allergy spray. Bvdscgc-suzuqukqiwvb-litjqtj xanax at bedtime Esophageal Reflux - the patient has been counseled against excessive intake of caffiene, spicy foods, peppermint, and cinnamon - all of which can exacerbate esophageal reflux. The patient is to take medications as prescribed and call the office if the symptoms are not improving. 03/10/2014 Appointment: [facility]la [facility]Ptel: [phone] [place] 03/10/2014 Patient Education: Patient Medication Summary Completed 03/10/2014 Visit Plan: Hypertension - uncontro lled - the patient's medications have been modified as documented in the visit note. The patient has been counseled to cut back on salt in diet for a no added salt diet, low fat d iet, start an exercise program with low weight bearing exercises and higher aerobic activity for heart health. The patient is to check blood pressure readings as an outpatient and either fax, call, or email the readings to the office next week for practicioner to review. The pt is to call for acute concerns. INCREASE DOXAZOSIN TO 1 TAB TWICE DAILY. Allergies - chronic - recommended pt to use allergy medication as prescribed. Pt has been counseled as the the appropriate use of the medication. Pt to call if allergy symptoms are not controlled with the medication. If using nasal spray, instructions as follows: Nasal spray- use twice daily, one spray per nostril twice daily, after 30 minutes, rinse out nose with saline spray.. Use opposite hand per nostril to spray in the nasal steroid allergy spray. 02/02/2014 Appointment: Kacy Moses WPtel: [phone] Other 02/02/2014 Patient Education: Patient Medication Summary Completed 02/02/2014 Patient Education: Hypertension Completed 02/02/2014 Visit Plan: Hypertension - uncontro lled - the medicaitons were not changed today due to patient having reports of improved pressure at home.. The patient has been counseled to cut back on salt in diet for a no added salt diet, low fat diet, start an exercise program with low weight bearing exercises and higher aerobic activity for heart health. The patient is to check blood pressure readings as an outpatient and either fax, call, or email the readings to the office next week for practicioner to review. The pt is to call for acute concerns. Rash from latex of the bandage - pt to use benadryl cream to the site. 10/25/2013 Appointment: Z[facility] Varela WPtel: [phone] Follow up 10/25/2013 Patient Education: Patient Medication Summary Completed 10/25/2013 Patient Education: Hypertension Completed 10/25/2013 Visit Plan: Hypertension - uncontro lled - the patient's medications have been modified as documented in the visit note. The patient has been counseled to cut back on salt in diet for a no added salt diet, low fat d iet, start an exercise program with low weight bearing exercises and higher aerobic activity for heart health. The patient is to check blood pressure readings as an outpatient and either fax, call, or email the readings to the office next week for practicioner to review. The pt is to call for acute concerns. THE PATIENT IS TO CHANGE HER BLOOD PRESSURE MEDICATIONS FOLLOWS: TOPROL 1.5 PILLS IN MORNING TOPROL 2 PILLS AT BEDTIME 08/24/2013 Appointment: Zoya Varela WPtel: [phone] Follow up 08/24/2013 Patient Education: Patient Medication Summary Completed 08/24/2013 Patient Education: Hypertension Completed 08/24/2013 Visit Plan: Hypertension - uncontro lled - the patient's medications have been modified as documented in the visit note. The patient has been counseled to cut back on salt in diet for a no added salt diet, low fat d iet, start an exercise program with low weight bearing exercises and higher aerobic activity for heart health. The patient is to check blood pressure readings as an outpatient and either fax, call, or email the readings to the office next week for practicioner to review. The pt is to call for acute concerns. 07/26/2013 Appointment: Zoya Varela WPtel: [phone] Follow up 07/26/2013 Patient Education: Patient Medication Summary Completed 07/26/2013 Patient Education: Hypertension Completed 07/26/2013 Visit Plan: Hypertension - uncontro lled - the patient's medications have been modified as documented in the visit note. The patient has been counseled to cut back on salt in diet for a no added salt diet, low fat d iet, start an exercise program with low weight bearing exercises and higher aerobic activity for heart health. The patient is to check blood pressure readings as an outpatient and either fax, call, or email the readings to the office next week for practicioner to review. The pt is to call for acute concerns. INCREASE METOPROLOL TO 1.5 PILLS TWICE DAILY. (TOTAL OF 150MG TWICE A DAY) BPPV - Benign Paroxysmal Positional Vertigo - discussed diagnosis with the patient, offered the pt the appropriate additional information in hand-out. Pt instructed in home exercises to help alleviate and prevent future recurrent episodes of vertigo. Pt informed that if symptoms worsen, call the office for further instructions/medication interventions. START STEROID TAPER ON FRIDAY. MECLIZINE IS FOR VERTIGO SYMPTOMS - CAN TAKE 1/2 TO 1 PILL EVERY 6 HOURS NEEDED FOR DIZZINESS. CALL IF DIZZINESS DOES NOT IMPROVE. 06/30/2013 Appointment: Zoya Varela WPtel: [address] [place], [place] [id number] Other 06/30/2013 Patient Education: Patient Medication Summary Completed 06/30/2013 Patient Education: Hypertension Completed 06/30/2013 Visit Plan: Hypertension - uncontro lled - the patient's medications have been modified as documented in the visit note. The patient has been counseled to cut back on salt in diet for a no added salt diet, low fat d iet, start an exercise program with low weight bearing exercises and higher aerobic activity for heart health. The patient is to check blood pressure readings as an outpatient and either fax, call, or email the readings to the office next week for practicioner to review. The pt is to call for acute concerns. 06/24/2013 Appointment: Kacy Moses WPtel: [address] [place], [place] [phone] Follow up 06/24/2013 Patient Education: Patient Medication Summary Completed 06/24/2013 Patient Education: Hypertension Completed 06/24/2013 Appointment: Zoya Varela WPtel: [address] [place], [place] [phone] Other 03/23/2013 Visit Plan: Hypotension - pt is on chronic antihypertensive medication - the medication has been adjusted down to attempt to alleviate the low blood pressures. Leg pain - Leg swelling - pt to have ultrasound on her right lower leg due to post-operative swelling and pain. 12/01/2012 Appointment: Zoya Varela WPtel: [address] [place], [place] [phone] [place] Follow up 12/01/2012 Patient Education: Patient Medication Summary Completed 12/01/2012 Patient Education: Hypertension Completed 12/01/2012 Appointment: Zoya Varela WPtel: [address] [place], [place] [phone] [place] Follow up 10/20/2012 Visit Plan: Shingles - Herpes Zoste r - acute in onset - pt started on acyclovir and instructed to call if symptoms worsen or if the pt is concerned about the symptoms. Pt has been advised to avoid contact with persons who may be , or infants, or immunocompromised individuals. Pt has been instructed that shingles will continue to break out and eventually scab over a two week period, until all of the vessicles are scabbed, the pt is to be considered contagious. 10/19/2012 Appointment: Zoya Varela WPtel: [address] [place] [address] Other 10/19/2012 Patient Education: Patient Medication Summary Completed 10/19/2012 Visit Plan: Hypertension - well con trolled - continue with current medications, continue with no added salt diet. Pt has been encouraged to exercise daily. The pt has been advised to call the office if there are any acute concerns about change in blood pressure readings at home. Edema - pt has been advised to elevate legs to prevent dependent edema, compression has been recommended to help to naturally decrease peripheral edema. Diuretic use has been discussed and pt has been instructed in appropriate use of such medication as necessary to further attempt to reduce peripheral edema. 10/07/2012 Appointment: Kacy Moses WPtel: [address] [place] [address] Other 10/07/2012 Patient Education: Hypertension Completed 10/07/2012 Patient Education: Patient Medication Summary Completed 10/07/2012 Visit Plan: Hypertension - well con trolled - continue with current medications, continue with no added salt diet. Pt has been encouraged to exercise daily. The pt has been advised to call the office if there are any acute concerns about change in blood pressure readings at home. Edema - pt has been advised to elevate legs to prevent dependent edema, compression has been recommended to help to naturally decrease peripheral edema. Diuretic use has been discussed and pt has been instructed in appropriate use of such medication as necessary to further attempt to reduce peripheral edema. 2012 Appointment: Zoya Varela WPtel: [facility] Other 2012 Patient Education: Patient Medication Summary Completed 2012 Patient Education: High Blood Pressure: Essential Hypertension Completed 2012 Visit Plan: Hypertension - uncontro lled - the patient's medications have been modified as documented in the visit note. The patient has been counseled to cut back on salt in diet for a no added salt diet, low fat d iet, start an exercise program with low weight bearing exercises and higher aerobic activity for heart health. The patient is to check blood pressure readings as an outpatient and either fax, call, or email the readings to the office next week for practicioner to review. The pt is to call for acute concerns. Blood pressures are a little better, but still need more control.. Pt is to change her DOXAZOSIN FOLLOWS-PT IS TO START ON DOXAZOSIN 4 mg in the morning and 1/2 pill of DOXAZOSIN IN THE EVENING. 08/18/2012 Appointment: [phone] [facility] Follow up 08/18/2012 Patient Education: Patient Medication Summary Completed 08/18/2012 Patient Education: High Blood Pressure: Essential Hypertension Completed 08/18/2012 Visit Plan: If the clonidine patch has the blood pressures at or below 120/80, then the pt is to stop her norvasc and call the clinic, pt is to rtc in 2 weeks. Apply the pennsaid 15 drops to each knee three times daily, rub in the pennsaid to hands after each application on the knees. 08/04/2012 Appointment: [facility]el[phone] Follow up 08/04/2012 Patient Education: Patient Medication Summary Completed 08/04/2012 Patient Education: clonidine 0.1 mg/24 h r Weekly Transderm Patch Monograph Completed 08/04/2012 Patient Education: High Blood Pressure: Essential Hypertension Completed 08/04/2012 Visit Plan: Hypertension - uncontro lled - the patient's medications have been modified as documented in the visit note. The patient has been counseled to cut back on salt in diet for a no added salt diet, low fat d iet, start an exercise program with low weight bearing exercises and higher aerobic activity for heart health. The patient is to check blood pressure readings as an outpatient and either fax, call, or email the readings to the office next week for practicioner to review. The pt is to call for acute concerns. CUT THE AMLODIPINE IN /2 AND TAKE ONE HALF OF THE AMLODIPINE AT BEDTIME AND ONEHALF OF THE AMLODIPINE IN THE MORNING. Back pain/ nerve pain- recommended pt to start on gabapentin 100 mg at night x 1 week, then increase to twice daily. 07/01/2012 Appointment: Zoya Varela WPtel: [facility] [place] [id number] Other 07/01/2012 Patient Education: Patient Medication Summary Completed 07/01/2012 Patient Education: High Blood Pressure: Essential Hypertension Completed 07/01/2012 Visit Plan: Blood pressure having a lot of inconsistent readings.. I have instructed Natali to take her medications as follows: Toprol xl 2 pills in the morning Lotrel - 1 pill at noon Toprol xl 1 pill at bedtime Bring by blood pressure and heart rate readings in two weeks 05/20/2012 Appointment: Zoya Varela WPtel: [id number] Follow up 05/20/2012 Patient Education: Patient Medication Summary Completed 05/20/2012 Patient Education: High Blood Pressure: Essential Hypertension Completed 05/20/2012 Appointment: Zoya Varela WPtel: [facility]6 [id number] Other 05/11/2012 Visit Plan: Hypertension - uncontro lled - the patient's medications have been modified as documented in the visit note. The patient has been counseled to cut back on salt in diet for a no added salt diet, low fat d iet, start an exercise program with low weight bearing exercises and higher aerobic activity for heart health. The patient is to check blood pressure readings as an outpatient and either fax, call, or email the readings to the office next week for practicioner to review. The pt is to call for acute concerns. stop the exforge, and start back on lotrel. Hot flashes - start on estradiol 0.5mg q day, if continues to be uncontrolled, increase to bid dosing. 04/20/2012 Appointment: Zoya Varela WPtel: [facility] [place] Follow up 04/20/2012 Patient Education: Patient Medication Summary Completed 04/20/2012 Patient Education: High Blood Pressure: Essential Hypertension Completed 04/20/2012 Visit Plan: Low back pain- the elissa ent was instructed in appropriate posture, need for weight loss to alleviate abdominal obesity that is worsening the patient's back pain.. The pt is to use prn antiinflammatories to manage acute pain. The patient is to call the office if the pain is worsening or does not improve. HTN - still uncontrolled - the pt states that she thinks that her HTN may be worse due to her pain. Pt to bring in her blood pressure readings in a few weeks. 03/10/2012 Appointment: Zoya Varela WPtel: [facility] Other 03/10/2012 Patient Education: Patient Medication Summary Completed 03/10/2012 Patient Education: High Blood Pressure: Essential Hypertension Completed 03/10/2012 Visit Plan: Hypertension - uncontro lled - the patient's medications have been modified as documented in the visit note. The patient has been counseled to cut back on salt in diet for a no added salt diet, low fat d iet, start an exercise program with low weight bearing exercises and higher aerobic activity for heart health. The patient is to check blood pressure readings as an outpatient and either fax, call, or email the readings to the office next week for practicioner to review. The pt is to call for acute concerns. Start on exforge 10/320 mg daily stay off of the lotrell stay off of the brennon and stay off of the clonidine Allergies - chronic - recommended pt to use allergy medication as prescribed. Pt has been counseled as the the appropriate use of the medication. Pt to call if allergy symptoms are not con trolled with the medication. USE THE NASAL SPRAY ONE SPRAY PER NOSTRIL TWICE DAILY UNTIL FEELING BETTER, THEN MAY GO TO NE SPRAY DAILY. Cough medication phenergan with codeine. 02/25/2012 Appointment: Zoya Varela WPtel: [facility] Other 02/25/2012 Patient Education: Patient Medication Summary Completed 02/25/2012 Patient Education: High Blood Pressure: Essential Hypertension Completed 02/25/2012 Visit Plan: Hypertension - uncontro lled - the patient's medications have been modified as documented in the visit note. The patient has been counseled to cut back on salt in diet for a no added salt diet, low fat d iet, start an exercise program with low weight bearing exercises and higher aerobic activity for heart health. The patient is to check blood pressure readings as an outpatient and either fax, call, or email the readings to the office next week for practicioner to review. The pt is to call for acute concerns. STOP THE LOTREL AND START ON THE BRENNON, ONE PILL DAILY.. WRITE DOWN THE BLOOD PESSURE AND HEART RATE AND BRING BY THE READINGS TO THE OFFICE NEXT WEEK.. IF THE BLOOD PRESSURE IS GREATER THAN 180 ON THE TOP NUMBER, call the office. 02/19/2012 Appointment: Zoya Varela WPtel: [phone] [facility]66[facility] Other 02/19/2012 Patient Education: Patient Medication Summary Completed 02/19/2012 Patient Education: High Blood Pressure: Essential Hypertension Completed 02/19/2012 Visit Plan: Hypertension - uncontro lled - The patient has been counseled to cut back on salt in diet for a no added salt diet, low fat diet, start an exercise program with low weight bearing exercises and higher ae robic activity for heart health. The patient is to check blood pressure readings as an outpatient and either fax, call, or email the readings to the office next week for practicioner to review. The pt is to call for acute concerns. URI/bronchitis - Pt advised to increase fluids, vitamin C. Discussed natural and expected course of this diagnosis and need to alert me if symtpoms do not follow expected course, or if any worse. RX sent to patient's pharmacy. Rocephin and kenalog injection today in the office 01/23/2012 Appointment: Kacy Moses WPtel: [phone] [phone] Other 01/23/2012 Patient Education: Patient Medication Summary Completed 01/23/2012 Patient Education: High Blood Pressure: Essential Hypertension Completed 01/23/2012 Visit Plan: Hypertension - uncontro lled - the patient's medications have been modified as documented in the visit note. The patient has been counseled to cut back on salt in diet for a no added salt diet, low fat d iet, start an exercise program with low weight bearing exercises and higher aerobic activity for heart health. The patient is to check blood pressure readings as an outpatient and either fax, call, or email the readings to the office next week for practicioner to review. The pt is to call for acute concerns. TAKE CLONIDINE TWICE DAILY TO HAVE BETTER BLOOD PRESSURE CONTROL AND BETTER HOT FLASH CONTROL.. TAKE THE CLONIDINE FIRST THING IN THE MORNING AND THE SECOND DOSE OF CLONIDINE AT 6 pm. HYPERLIPIDEMIA- recommended pt to start on fish oil three times daily. Cerumen impaction- removed in clinic today. Hypertension - uncontrolled - the patient's medications have been modified as documented in the visit note. The patient has been counseled to cut back on salt in diet for a no added salt diet, low fat diet, start an exercise program with low weight bearing exercises and higher aerobic activity for heart health. The patient is to check blood pressure readings as an outpatient and either fax, call, or email the readings to the office next week for practicioner to review. The pt is to call for acute concerns. KEEP ON CURRENT MEDICATIONS AND START ON CLONIDINE 0.1 mg by mouth TWICE DAILY. 01/02/2012 Appointment: Zoya Varela WPtel: [address] [place], [place] [id number] Other 01/02/2012 Patient Education: Patient Medication Summary Completed 01/02/2012 Patient Education: High Blood Pressure: Essential Hypertension Completed 01/02/2012 Visit Plan: Hypertension - uncontro lled - the patient's medications have been modified as documented in the visit note. The patient has been counseled to cut back on salt in diet for a no added salt diet, low fat d iet, start an exercise program with low weight bearing exercises and higher aerobic activity for heart health. The patient is to check blood pressure readings as an outpatient and either fax, call, or email the readings to the office next week for practicioner to review. The pt is to call for acute concerns. KEEP ON CURRENT MEDICATIONS AND START ON CLONIDINE 0.1 mg by mouth TWICE DAILY. Hyperlipidemia - pt has been counseled about appropriate diet, exercise, and need for low fat food choices. I have discussed the need for the patient to take medications as prescribed. If the patient has negative side effects from the medication, they are to CALL the office and not abruptly discontinue the medication without discussion with a practicioner in the office. We will check labs in 3-6 months for follow up on the patient's chronic medical problem and to assure normal liver response to medications. Samples of lipitor 10 mg daily. Skin lesion to be evaluatedby Dr. Sanchez on 01/08/12@11AM. Muscle spasms- flexeril 5 mg take as needed for muscle spasms. Cerumen impaction - unable to remove today, will have to use sweet oil to soften wax and hopefully will be able to remove in 2 wks. 12/20/2011 Appointment: Zoya Varela WPtel: [address] [place], [place] [id number] New Patient 12/20/2011 Patient Education: Patient Medication Summary Completed 12/20/2011 Patient Education: High Blood Pressure: Essential Hypertension Completed 12/20/2011 Instructions Comment PT TO CUT AMLODIPINE TO 1/2 OF A PILL DAILY IN THE MORNING. PT TO TAKE BENZAPRIL AT BEDTIME.. Hypotension - pt is on chronic antihypertensive medication - the medication has been adjusted down to attempt to alleviate the low blood pressures. Leg pain - Leg swelling - pt to have ultrasound on her right lower leg due to post-operative swelling and pain. . Hypertension - wel l controlled - continue with current medications, continue with no added salt diet. Pt has been encouraged to exercise daily. The pt has been advised to call the office if there are any acute concerns about change in blood pressure readings at home. Allergies - chronic - recommended pt to use allergy medication as prescribed. Pt has been counseled as to the appropriate use of the medication. Pt to call if allergy symptoms are not controlled with the medication. If using nasal spray, instructions as follows: Nasal spray- use twice daily, one spray per nostril twice daily, after 30 minutes, rinse out nose with saline spray.. Use opposite hand per nostril to spray in the nasal steroid allergy spray. Chronic neck pain-muscle spasms-refill flexeril for prn use . Hypertension - wel l controlled - continue with current medications, continue with no added salt diet. Pt has been encouraged to exercise daily. The pt has been advised to call the office if there are any acute concerns about change in blood pressure readings at home. Biotene OTC Decrease dose of Lyrica to 25 mg BID . Dry mouth-oral pain-discussed with Dr Varela-recommend patient start biotene mouth rinses to increase moisture-ok to decrease lyrica to see if symptoms improve-follow up in 2-3 weeks, sooner if needed. Patient verbalized understanding of plan. CLARITIN 10MG DAILY PEPCID 20MG TWICE DAILY BENADRYL DIRECTED START PREDNISONE TOMORROW . Poison Sarah -kenalog injection today in the office-start prednisone tomorrow pt is to use topical treatments as directed. Pt is cleanse clothing in hot water with soap, and call if symptoms do not improve or if they worsen. Restart acyclovir to prevent the cold sores change the metoprolol to 1/2 a pill twice daily. . Hypertension - not optimally controlle d - continue with current medications, continue with no added salt diet. Pt has been encouraged to exercise daily. The pt has been advised to call the office if there are any acute concerns about change in blood pressure readings at home. - she has only been taking her metoprolol one time a day - I have recommended that this medication be taken twice daily - - due to her symptoms - she is only taking it one time a day - hopefully this will help to decrease the lability of her blood pressure with the twice daily dosing. Cold sores - restart acyclovir. Hyperlipidemia - pt has been counseled about appropriate diet, exercise, and need for low fat food choices. I have discussed the need for the patient to take medications as prescribed. If the patient has negative side effects from the medication, they are to CALL the office and not abruptly discontinue the medication without discussion with a practitioner in the office. We will check labs in 3-6 months for follow up on the patient's chronic medical problem and to assure normal liver response to medications. . Low back pain- the patient was instructed in appropriate posture, need for weight loss to alleviate abdominal obesity that is worsening the patient's back pain.. The pt is to use prn antiinflammatories to manage acute pain. The patient is to call the office if the pain is worsening or does not improve. HTN - still uncontrolled - the pt states that she thinks that her HTN may be worse due to her pain. Pt to bring in her blood pressure readings in a few weeks. . Elevated blood sug ars-diabetes and diet education provided today in the office-discussed cutting out any sugary drinks, cutting back on sweets, and decreasing portion sizes of breads, pastas, potatoes. Recommend increasing exercise as well. Questions answered regarding diabetes and diabetic diet. Plan to repeat labs in 3 months. Patient verbalized understanding of plan. Hypertension - well controlled - continue with current medications, continue with no added salt diet. Pt has been encouraged to exercise daily. The pt has been advised to call the office if there are any acute concerns about change in blood pressure readings at home. INCREASE YOUR METOPR OLOL TARTATE 100MG TO TWICE DAILY Monitor your blood pressure at home and record. Bring in your readings to your next appointment, or as directed. Call for chest pain, shortness of breath, headaches, or other concerns.. Hypertension - uncontrolled - the patient's medications have been modified as documented in the visit note. The patient has been counseled to cut back on salt in diet for a no added salt diet, low fat diet, start an exercise program with low weight bearing exercises and higher aerobic activity for heart health. The patient is to check blood pressure readings as an outpatient and either fax, call, or email the readings to the office next week for practicioner to review. The pt is to call for acute concerns. . Edema - pt has bee n advised to elevate legs to prevent dependent edema, compression has been recommended to help to naturally decrease peripheral edema. Diuretic use has been discussed and pt has been instructed in appropriate use of such medication as necessary to further attempt to reduce peripheral edema. No added salt, heart healthy diet recommended. START ACYCLOVIR TODA Y AND START THE PREDNISONE TOMORROW CALL IF YOU HAVE ANY BLURRY VISION, OR EYE SYMPTOMS WE DISCUSSED CALL IF YOU RASH TURNS INTO BLISTERS . Contact dermatitis-kenalog injection t freddy in the office-start prednisone taper tomorrow- Pt is cleanse clothing in hot water with soap, and call if symptoms do not improve or if they worsen. Start acyclovir until shingles are completely ruled out-call if any increase or change in symptoms-call if symptoms do not resolve-call for any visual changes or as discussed. Patient verbalized understanding of plan. DEXILANT 60MG DAILY- TAKE SAMPLES UNTIL GONE THEN GO BACK TO YOUR NEXIUM FLONASE 1 SPRAY EACH NARE DAILY IN THE EVENING . Allergies - chronic - recommended pt t o use allergy medication as prescribed. Pt has been counseled as to the appropriate use of the medication. Pt to call if allergy symptoms are not controlled with the medication. If using nasal spray, instructions as follows: Nasal spray- use twice daily, one spray per nostril twice daily, after 30 minutes, rinse out nose with saline spray.. Use opposite hand per nostril to spray in the nasal steroid allergy spray. Kenalog injection today in the office Anxiety-panic attacks-worried that the 0.5mg xanax will make her too drowsy- lower dose provided and instructed on use Esophageal Reflux - the patient has been counseled against excessive intake of caffeine, spicy foods, peppermint, and cinnamon - all of which can exacerbate esophageal reflux. The patient is to take medications as prescribed and call the office if the symptoms are not improving. . Blood pressure hav ing a lot of inconsistent readings.. I have instructed Natali to take her medications as follows: Toprol xl 2 pills in the morning Lotrel - 1 pill at noon Toprol xl 1 pill at bedtime Bring by blood pressure and heart rate readings in two weeks . If the clonidine p [facility] has the blood pressures at or below 120/80, then the pt is to stop her norvasc and call the clinic, pt is to rtc in 2 weeks. Apply the pennsaid 15 drops to each knee three times daily, rub in the pennsaid to hands after each application on the knees. . Left ankle pain-sp rain-recommend rest ice and anti inflammatories as directed-also plan for xray left ankle . Hypertension - unc ontrolled - the patient's medications have been modified as documented in the visit note. The patient has been counseled to cut back on salt in diet for a no added salt diet, low fat diet, start an exercise program with low weight bearing exercises and higher aerobic activity for heart health. The patient is to check blood pressure readings as an outpatient and either fax, call, or email the readings to the office next week for practitioner to review. The pt is to call for acute concerns. Diabetes Mellitus - controlled - per recent FSBS reports. I have recommended for the patient to have follow up labs prior to the next office visit. The patient has been instructed to continue with current medications as previously directed, continue with regular FSBS monitoring to assure continued control of diabetes. Pt to call for any acute concerns, complaints, or if the blood glucose readings are starting to become less controlled. Edema - pt has been advised to elevate legs to prevent dependent edema, compression has been recommended to help to naturally decrease peripheral edema. Diuretic use has been discussed and pt has been instructed in appropriate use of such medication as necessary to further attempt to reduce peripheral edema. zyrtec daily coricidin hpb . URI - Pt advised to increase fluids, vitamin C. Discussed natural and expected course of this diagnosis and need to alert me if symptoms do not follow expected course, or if any worse and i will send in an antibiotic. Patient verbalized understanding of plan. bactroban ointment t o right leg kenalog injection today-start prednisone tomorrow . Poison Sarah -kenalog injection today in the office-start prednisone tomorrow pt is to use topical treatments as directed. Pt is cleanse clothing in hot water with soap, and call if symptoms do not improve or if they worsen. . Hypertension - wel l controlled - continue with current medications, continue with no added salt diet. Pt has been encouraged to exercise daily. The pt has been advised to call the office if there are any acute concerns about change in blood pressure readings at home. Hyperlipidemia - pt has been counseled about appropriate diet, exercise, and need for low fat food choices. I have discussed the need for the patient to take medications as prescribed. If the patient has negative side effects from the medication, they are to CALL the office and not abruptly discontinue the medication without discussion with a practitioner in the office. We will check labs in 3-6 months for follow up on the patient's chronic medical problem and to assure normal liver response to medications. Arthritis - continue with treatments per Dr. Madison. . Hypertension - unc ontrolled - the patient's medications have been modified as documented in the visit note. The patient has been counseled to cut back on salt in diet for a no added salt diet, low fat diet, start an exercise program with low weight bearing exercises and higher aerobic activity for heart health. The patient is to check blood pressure readings as an outpatient and either fax, call, or email the readings to the office next week for practicioner to review. The pt is to call for acute concerns. Blood pressures are a little better, but still need more control.. Pt is to change her DOXAZOSIN FOLLOWS-PT IS TO START ON DOXAZOSIN 4 mg in the morning and 1/2 pill of DOXAZOSIN IN THE EVENING. . Hypertension - wel l controlled - continue with current medications, continue with no added salt diet. Pt has been encouraged to exercise daily. The pt has been advised to call the office if there are any acute concerns about change in blood pressure readings at home. Diabetes-diet controlled-check Hgb A1C Chronic Depression and anxiety - the pt has symptoms of chronic anxiety and depression that have been fairly well controlled since the last office visit. The pt has expected periods of exacerbation with abatement of the symptoms with change in situational exposure. No change in current medications. . Hypertension - wel l controlled - continue with current medications, continue with no added salt diet. Pt has been encouraged to exercise daily. The pt has been advised to call the office if there are any acute concerns about change in blood pressure readings at home. Edema - pt has been advised to elevate legs to prevent dependent edema, compression has been recommended to help to naturally decrease peripheral edema. Diuretic use has been discussed and pt has been instructed in appropriate use of such medication as necessary to further attempt to reduce peripheral edema. BENICAR 20MG DAILY SAMPLES GIVEN. Hypertension - uncontrolled - the patient's medications have been modified as documented in the visit note. The patient has been counseled to cut back on salt in diet for a no added salt diet, low fat diet, start an exercise program with low weight bearing exercises and higher aerobic activity for heart health. The patient is to check blood pressure readings as an outpatient and either fax, call, or email the readings to the office next week for practicioner to review. The pt is to call for acute concerns. no change in your me dications at this time. keep metoprolol at 1.5 tabs twice daily and doxazosin at 1.5 tab morning and 1 tab bedtime. . Hypertension - well controlled - rebeka nue with current medications, continue with no added salt diet. Pt has been encouraged to exercise daily. The pt has been advised to call the office if there are any acute concerns about change in blood pressure readings at home. Canker sores - rx for acyclovir given to pt to start - can use PRN for cold sores. use the voltaren gel on your right low back and buttock corcidin hbp - take for the sinus congestion . Hypertension - well controlled - rebeka nue with current medications, continue with no added salt diet. Pt has been encouraged to exercise daily. The pt has been advised to call the office if there are any acute concerns about change in blood pressure readings at home. URI - Pt advised to increase fluids, vitamin C. Discussed natural and expected course of this diagnosis and need to alert me if symptoms do not follow expected course, or if any worse. RX sent to patient's pharmacy. . Hypertension - wel l controlled - continue with current medications, continue with no added salt diet. Pt has been encouraged to exercise daily. The pt has been advised to call the office if there are any acute concerns about change in blood pressure readings at home. Edema - pt has been advised to elevate legs to prevent dependent edema, compression has been recommended to help to naturally decrease peripheral edema. Diuretic use has been discussed and pt has been instructed in appropriate use of such medication as necessary to further attempt to reduce peripheral edema. Peripheral Neuropathy - started pt on gabapentin - pt to call if symptoms are not improving. decrease the metopro lol to one pill twice a day keep track of your heart rate and blood pressure and bring it to the office on friday of next week . Hypertension - due to her low heart ra te - decrease dose of metoprolol, keep close eye on blood pressure- may need to adjust other medications based on the readings of her blood pressure over the next few days. Bradycardia - discussed with pt - if symptoms acutely worsen, she will need to go to the ER, - however the plan is as follows: - decrease Metoprolol to one pill twice daily - keep track of blood pressure and heart rate and bring to the office next Friday. 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 compression socks - look at [facility] - mens section - sports compression socks or basketball compression socks - knee high . Hypertension - well controlled - rebeka nue with current medications, continue with no added salt diet. Pt has been encouraged to exercise daily. The pt has been advised to call the office if there are any acute concerns about change in blood pressure readings at home. Diabetes Mellitus - controlled - per recent FSBS reports. I have recommended for the patient to have follow up labs prior to the next office visit. - Diet controlled DM - Pt to call for any acute concerns, complaints, or if the blood glucose readings are starting to become less controlled. Hyperlipidemia - pt has been counseled about appropriate diet, exercise, and need for low fat food choices. I have discussed the need for the patient to take medications as prescribed. If the patient has negative side effects from the medication, they are to CALL the office and not abruptly discontinue the medication without discussion with a practitioner in the office. We will check labs in 3-6 months for follow up on the patient's chronic medical problem and to assure normal liver response to medications. Osteoarthritis and Rheumatoid Arthritis - continue with treatments per Dr. Madison. Edema bilateral lower extremities - recommended compression socks to lower extremities. THE PATIENT IS TO CH JUSTINE HER BLOOD PRESSURE MEDICATIONS FOLLOWS: TOPROL 1.5 PILLS IN MORNING TOPROL 2 PILLS AT BEDTIME. Hypertension - uncontrolled - the patient's medications have been modified as documented in the visit note. The patient has been counseled to cut back on salt in diet for a no added salt diet, low fat diet, start an exercise program with low weight bearing exercises and higher aerobic activity for heart health. The patient is to check blood pressure readings as an outpatient and either fax, call, or email the readings to the office next week for practicioner to review. The pt is to call for acute concerns. THE PATIENT IS TO CHANGE HER BLOOD PRESSURE MEDICATIONS FOLLOWS: TOPROL 1.5 PILLS IN MORNING TOPROL 2 PILLS AT BEDTIME . Hypertension - [facility] ontrolled - the patient's medications have been modified as documented in the visit note. The patient has been counseled to cut back on salt in diet for a no added salt diet, low fat diet, start an exercise program with low weight bearing exercises and higher aerobic activity for heart health. The patient is to check blood pressure readings as an outpatient and either fax, call, or email the readings to the office next week for practicioner to review. The pt is to call for acute concerns. KEEP ON CURRENT MEDICATIONS AND START ON CLONIDINE 0.1 mg by mouth TWICE DAILY. Hyperlipidemia - pt has been counseled about appropriate diet, exercise, and need for low fat food choices. I have discussed the need for the patient to take medications as prescribed. If the patient has negative side effects from the medication, they are to CALL the office and not abruptly discontinue the medication without discussion with a practicioner in the office. We will check labs in 3-6 months for follow up on the patient's chronic medical problem and to assure normal liver response to medications. Samples of lipitor 10 mg daily. Skin lesion to be evaluatedby Dr. Sanchez on 01/08/12@11AM. Muscle spasms- flexeril 5 mg take as needed for muscle spasms. Cerumen impaction - unable to remove today, will have to use sweet oil to soften wax and hopefully will be able to remove in 2 wks. Thigh high compressi on hose-on in the morning and off at bedtime. Lasix 20mg po daily as needed for swelling. Take it daily for the next 3 days then as needed for increased swelling. I will call it to Angela. Take a potassium each time you take a lasix. Appointment with Dr. Schaeffer October 15 at 1:40pm . Hypertension - well controlled - rebeka nue with current medications, continue with no added salt diet. Pt has been encouraged to exercise daily. The pt has been advised to call the office if there are any acute concerns about change in blood pressure readings at home. Edema - pt has been advised to elevate legs to prevent dependent edema, compression has been recommended to help to naturally decrease peripheral edema. Diuretic use has been discussed and pt has been instructed in appropriate use of such medication as necessary to further attempt to reduce peripheral edema. . Hypertension - wel l controlled - continue with current medications, continue with no added salt diet. Pt has been encouraged to exercise daily. The pt has been advised to call the office if there are any acute concerns about change in blood pressure readings at home. pnuemovax 23 today Hyperlipidemia - pt has been counseled about appropriate diet, exercise, and need for low fat food choices. I have discussed the need for the patient to take medications as prescribed. If the patient has negative side effects from the medication, they are to CALL the office and not abruptly discontinue the medication without discussion with a practitioner in the office. We will check labs in 3-6 months for follow up on the patient's chronic medical problem and to assure normal liver response to medications. . URI - Pt advised t o increase fluids, vitamin C. Discussed natural and expected course of this diagnosis and need to alert me if symptoms do not follow expected course, or if any worse. RX sent to patient's pharmacy. RESTART XANAX 1/2 TA Abril AT BEDTIME START NASONEX 1 SPRAY EACH NARE TWICE DAILY CHEST XRAY AT THE HOSPITAL . Allergies - chronic - recommended pt to use allergy medication as prescribed. Pt has been counseled as the the appropriate use of the medication. Pt to call if allergy symptoms are not controlled with the medication. If using nasal spray, instructions as follows: Nasal spray- use twice daily, one spray per nostril twice daily, after 30 minutes, rinse out nose with saline spray.. Use opposite hand per nostril to spray in the nasal steroid allergy spray. [id number] xanax at bedtime Esophageal Reflux - the patient has been counseled against excessive intake of caffiene, spicy foods, peppermint, and cinnamon - all of which can exacerbate esophageal reflux. The patient is to take medications as prescribed and call the office if the symptoms are not improving. . Shingles - Herpes Zoster - acute in onset - pt started on acyclovir and instructed to call if symptoms worsen or if the pt is concerned about the symptoms. Pt has been advised to avoid contact with persons who may be , or infants, or immunocompromised individuals. Pt has been instructed that shingles will continue to break out and eventually scab over a two week period, until all of the vessicles are scabbed, the pt is to be considered contagious. take the carafate as a liquid - use two teaspoons of lukewarm water and drink the medication as a liquid slurry.. Hypertension - well controlled - continue with current medications, continue with no added salt diet. Pt has been encouraged to exercise daily. The pt has been advised to call the office if there are any acute concerns about change in blood pressure readings at home. Esophageal Reflux - the patient has been counseled against excessive intake of caffiene, spicy foods, peppermint, and cinnamon - all of which can exacerbate esophageal reflux. The patient is to take medications as prescribed and call the office if the symptoms are not improving. Hyperlipidemia - pt has been counseled about appropriate diet, exercise, and need for low fat food choices. I have discussed the need for the patient to take medications as prescribed. If the patient has negative side effects from the medication, they are to CALL the office and not abruptly discontinue the medication without discussion with a practicioner in the office. We will check labs in 3-6 months for follow up on the patient's chronic medical problem and to assure normal liver response to medications. . Hypertension - [facility] ontrolled - the patient's medications have been modified as documented in the visit note. The patient has been counseled to cut back on salt in diet for a no added salt diet, low fat diet, start an exercise program with low weight bearing exercises and higher aerobic activity for heart health. The patient is to check blood pressure readings as an outpatient and either fax, call, or email the readings to the office next week for practicioner to review. The pt is to call for acute concerns. stop the exforge, and start back on lotrel. Hot flashes - start on estradiol 0.5mg q day, if continues to be uncontrolled, increase to bid dosing. increase doxazosin t o 1.5 of the 4mg pills twice daily decrease amlodipine to 1/2 pill daily - check blood pressure at least twice daily and bring by clinic - if the pressure stays below 130 we should be able to stop the amlodipine. i believe that the swelling in your legs is partially due to the amlodipine causing dilation of vessels and edema. . Hypertension - uncontrolled - the elissa ent's medications have been modified as documented in the visit note. The patient has been counseled to cut back on salt in diet for a no added salt diet, low fat diet, start an exercise program with low weight bearing exercises and higher aerobic activity for heart health. The patient is to check blood pressure readings as an outpatient and either fax, call, or email the readings to the office next week for practitioner to review. The pt is to call for acute concerns. Due to edema, will have to decrease amlodipine with a high likelihood of discontinuation of the Amlodipine - I have recommended the following blood pressure medication changes. Instructions given to Natali as follows: increase doxazosin to 1.5 of the 4mg pills twice daily decrease amlodipine to 1/2 pill daily - check blood pressure at least twice daily and bring by clinic - if the pressure stays below 130 we should be able to stop the amlodipine. i believe that the swelling in your legs is partially due to the amlodipine causing dilation of vessels and edema. Edema - take lasix twice daily x 2 days, elevate legs and use compression on lower legs and hopefully with the decrease in the amlodipine we will see an improvement in her symptoms of swelling. DM - diet controlled - Natali has had elevated hgba1c levels in the past - we have discussed her need to cut back on carbohydrates, sugary foods, and increase her activity to prevent future need for medication as she has a strong family history of DM. I have told her that I agree with Dr. Madison - that she needs treatment of her inflammatory arthritis - and to carry through with his plans for treatment. ANDERS DE LUNA . Bronchitis - acute case of bronchitis identified. Pt has been given antibiotics, breathing treatments as appropriate, and pt has been instructed to call if symptoms are not improved, or if symptoms acutely worsen. . Hypertension - [facility] ontrolled - the medicaitons were not changed today due to patient having reports of improved pressure at home.. The patient has been counseled to cut back on salt in diet for a no added salt diet, low fat diet, start an exercise program with low weight bearing exercises and higher aerobic activity for heart health. The patient is to check blood pressure readings as an outpatient and either fax, call, or email the readings to the office next week for practicioner to review. The pt is to call for acute concerns. Rash from latex of the bandage - pt to use benadryl cream to the site. . Hypertension - wel l controlled - continue with current medications, continue with no added salt diet. Pt has been encouraged to exercise daily. The pt has been advised to call the office if there are any acute concerns about change in blood pressure readings at home. Diabetes Mellitus - controlled - per recent FSBS reports. I have recommended for the patient to have follow up labs prior to the next office visit. The patient has been instructed to continue with current medications as previously directed, continue with regular FSBS monitoring to assure continued control of diabetes. Pt to call for any acute concerns, complaints, or if the blood glucose readings are starting to become less controlled. . Hypertension - [facility] ontrolled - the patient's medications have been modified as documented in the visit note. The patient has been counseled to cut back on salt in diet for a no added salt diet, low fat diet, start an exercise program with low weight bearing exercises and higher aerobic activity for heart health. The patient is to check blood pressure readings as an outpatient and either fax, call, or email the readings to the office next week for practicioner to review. The pt is to call for acute concerns. TAKE CLONIDINE TWICE DAILY TO HAVE BETTER BLOOD PRESSURE CONTROL AND BETTER HOT FLASH CONTROL.. TAKE THE CLONIDINE FIRST THING IN THE MORNING AND THE SECOND DOSE OF CLONIDINE AT 6 pm. HYPERLIPIDEMIA- recommended pt to start on fish oil three times daily. Cerumen impaction- removed in clinic today. Hypertension - uncontrolled - the patient's medications have been modified as documented in the visit note. The patient has been counseled to cut back on salt in diet for a no added salt diet, low fat diet, start an exercise program with low weight bearing exercises and higher aerobic activity for heart health. The patient is to check blood pressure readings as an outpatient and either fax, call, or email the readings to the office next week for practicioner to review. The pt is to call for acute concerns. KEEP ON CURRENT MEDICATIONS AND START ON CLONIDINE 0.1 mg by mouth TWICE DAILY. START STEROID TAPER ON FRIDAY. MECLIZINE IS FOR VERTIGO SYMPTOMS - CAN TAKE 1/2 TO 1 PILL EVERY 6 HOURS NEEDED FOR DIZZINESS. CALL IF DIZZINESS DOES NOT IMPROVE. INCREASE METOPROLOL TO 1.5 PILLS TWICE DAILY. (TOTAL OF 150MG TWICE A DAY). Hypertension - uncontrolled - the patient's medications have been modified as documented in the visit note. The patient has been counseled to cut back on salt in diet for a no added salt diet, low fat diet, start an exercise program with low weight bearing exercises and higher aerobic activity for heart health. The patient is to check blood pressure readings as an outpatient and either fax, call, or email the readings to the office next week for practicioner to review. The pt is to call for acute concerns. INCREASE METOPROLOL TO 1.5 PILLS TWICE DAILY. (TOTAL OF 150MG TWICE A DAY) BPPV - Benign Paroxysmal Positional Vertigo - discussed diagnosis with the patient, offered the pt the appropriate additional information in hand-out. Pt instructed in home exercises to help alleviate and prevent future recurrent episodes of vertigo. Pt informed that if symptoms worsen, call the office for further instructions/medication interventions. START STEROID TAPER ON FRIDAY. MECLIZINE IS FOR VERTIGO SYMPTOMS - CAN TAKE 1/2 TO 1 PILL EVERY 6 HOURS NEEDED FOR DIZZINESS. CALL IF DIZZINESS DOES NOT IMPROVE. PATIENT IS TO CHECK BLOOD PRESSURE AND HEART RATE TWO TIMES DAILY AND BRING IN A RECORD OF THE READINGS INTO THE OFFICE IN TWO WEEKS.. Hypertension - uncontrolled - the patient's medications have been modified as documented in the visit note. The patient has been counseled to cut back on salt in diet for a no added salt diet, low fat diet, start an exercise program with low weight bearing exercises and higher aerobic activity for heart health. The patient is to check blood pressure readings as an outpatient and either fax, call, or email the readings to the office next week for practicioner to review. The pt is to call for acute concerns. INCREASE DOXAZOSIN TO 1 TAB TWICE DAILY. Allergies - chronic - recommended pt to use allergy medication as prescribed. Pt has been counseled as the the appropriate use of the medication. Pt to call if allergy symptoms are not controlled with the medication. If using nasal spray, instructions as follows: Nasal spray- use twice daily, one spray per nostril twice daily, after 30 minutes, rinse out nose with saline spray.. Use opposite hand per nostril to spray in the nasal steroid allergy spray. . Hypertension - un controlled - the patient's medications have been modified as documented in the visit note. The patient has been counseled to cut back on salt in diet for a no added salt diet, low fat diet, start an exercise program with low weight bearing exercises and higher aerobic activity for heart health. The patient is to check blood pressure readings as an outpatient and either fax, call, or email the readings to the office next week for practicioner to review. The pt is to call for acute concerns. Start on exforge 10/320 mg daily stay off of the lotrell stay off of the brennon and stay off of the clonidine Allergies - chronic - recommended pt to use allergy medication as prescribed. Pt has been counseled as the the appropriate use of the medication. Pt to call if allergy symptoms are not controlled with the medication. USE THE NASAL SPRAY ONE SPRAY PER NOSTRIL TWICE DAILY UNTIL FEELING BETTER, THEN MAY GO TO NE SPRAY DAILY. Cough medication phenergan with codeine. . Medicare Exam - to day we discussed the patients past history, immunizations, preventative exams/evaluations - colonoscopy, fecal occult blood testing, routine labs for renal function, glucose, cholesterol, osteoporosis evaluations, cardiovascular testing and cancer screenings. We have also discussed mental health and the signs/symptoms of depression. The patient was advised of home safety evaluations and the need to make sure that as the aging process continues, we need to be aware of different ways to make the home a safer place to reside. The patient has also been counseled that exercise is necessary - and of utmost importance as we age to help decrease fall risk and to maintain independece in the home. Today we discussed the need for the patient to create paperwork for Advanced directives as well as for the patient to provide this office with a copy of her DOPA paperwork for health care surrogate. Cerumen Impaction - The impacted cerumen was removed with the use of the ear currette and water pick. The patient tolerated the procedure without incident and had improvement in hearing. . Hypertension - [facility] ontrolled - the patient's medications have been modified as documented in the visit note. The patient has been counseled to cut back on salt in diet for a no added salt diet, low fat diet, start an exercise program with low weight bearing exercises and higher aerobic activity for heart health. The patient is to check blood pressure readings as an outpatient and either fax, call, or email the readings to the office next week for practicioner to review. The pt is to call for acute concerns. CUT THE AMLODIPINE IN 1/2 AND TAKE ONE HALF OF THE AMLODIPINE AT BEDTIME AND ONEHALF OF THE AMLODIPINE IN THE MORNING. Back pain/ nerve pain- recommended pt to start on gabapentin 100 mg at night x 1 week, then increase to twice daily. . Sinusitis - Pt has acute infection - pain in face, maxillary region, Pt informed to use decongestant, RX given to patient, sinus rinses also recommended. Call if symptoms do not show improvement. URI - Pt advised to increase fluids, vitamin C. Discussed natural and expected course of this diagnosis and need to alert me if symptoms do not follow expected course, or if any worse. RX sent to patient's pharmacy. Allergies - chronic - recommended pt to use allergy medication as prescribed. Pt has been counseled as to the appropriate use of the medication. Pt to call if allergy symptoms are not controlled with the medication. If using nasal spray, instructions as follows: Nasal spray- use twice daily, one spray per nostril twice daily, after 30 minutes, rinse out nose with saline spray.. Use opposite hand per nostril to spray in the nasal steroid allergy spray. . Cracked/painful li ps-bacterial culture today in the office-discussed keeping lips well moisturized-get new toothbrush, lip gloss, etc. Call if symptoms do not resolve or if any worse. . Cracked/painful li ps-bacterial culture today in the office-discussed keeping lips well moisturized-get new toothbrush, lip gloss, etc. Call if symptoms do not resolve or if any worse. . Hypertension - wel l controlled - continue with current medications, continue with no added salt diet. Pt has been encouraged to exercise daily. The pt has been advised to call the office if there are any acute concerns about change in blood pressure readings at home. We will get a chest xray at the hospital today. I will call you with the results. Symbicort 2 puffs twice daily. Call if you are short of breath or other concerns. I sent a prescription for an antibiotic, doxycycline, to [facility]. It is twice daily. Take it until it's gone. Call if your symptoms persist, or if any worse. . Hypertension - uncontrolled - The patient has been counseled to cut back on salt in diet for a no added salt diet, low fat diet, start an exercise program with low weight bearing exercises and higher aerobic activity for heart health. The patient is to check blood pressure readings as an outpatient and either fax, call, or email the readings to the office next week for practicioner to review. The pt is to call for acute concerns. URI/bronchitis - Pt advised to increase fluids, vitamin C. Discussed natural and expected course of this diagnosis and need to alert me if symtpoms do not follow expected course, or if any worse. RX sent to patient's pharmacy. Rocephin and kenalog injection today in the office . Hypertension - wel l controlled - continue with current medications, continue with no added salt diet. Pt has been encouraged to exercise daily. The pt has been advised to call the office if there are any acute concerns about change in blood pressure readings at home. Hyperlipidemia - pt has been counseled about appropriate diet, exercise, and need for low fat food choices. I have discussed the need for the patient to take medications as prescribed. If the patient has negative side effects from the medication, they are to CALL the office and not abruptly discontinue the medication without discussion with a practitioner in the office. We will check labs in 3-6 months for follow up on the patient's chronic medical problem and to assure normal liver response to medications. . Hypertension - wel l controlled - continue with current medications, continue with no added salt diet. Pt has been encouraged to exercise daily. The pt has been advised to call the office if there are any acute concerns about change in blood pressure readings at home. 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 . Tick - tick with h ead removed - will start abx - The patient was instructed in appropriate wound care. The patient was instructed to use the antibiotic ointment as per RX. The patient is to call for any change in symptoms, increase in size of the lesion, increase in pain. . Diabetes Mellitus - controlled - per recent FSBS reports. I have recommended for the patient to have follow up labs prior to the next office visit. The patient has been instructed to continue with current medications as previously directed, continue with regular FSBS monitoring to assure continued control of diabetes. Pt to call for any acute concerns, complaints, or if the blood glucose readings are starting to become less controlled. Rash on left Elbow - RX for Hypertension - well controlled - continue with current medications, continue with no added salt diet. Pt has been encouraged to exercise daily. The pt has been advised to call the office if there are any acute concerns about change in blood pressure readings at home. . Hypertension - wel l controlled - continue with current medications, continue with no added salt diet. Pt has been encouraged to exercise daily. The pt has been advised to call the office if there are any acute concerns about change in blood pressure readings at home. Hyperlipidemia - pt has been counseled about appropriate diet, exercise, and need for low fat food choices. I have discussed the need for the patient to take medications as prescribed. If the patient has negative side effects from the medication, they are to CALL the office and not abruptly discontinue the medication without discussion with a practitioner in the office. We will check labs in 3-6 months for follow up on the patient's chronic medical problem and to assure normal liver response to medications. . Hypertension - unc ontrolled - the patient's medications have been modified as documented in the visit note. The patient has been counseled to cut back on salt in diet for a no added salt diet, low fat diet, start an exercise program with low weight bearing exercises and higher aerobic activity for heart health. The patient is to check blood pressure readings as an outpatient and either fax, call, or email the readings to the office next week for practicioner to review. The pt is to call for acute concerns. STOP THE LOTREL AND START ON THE BRENNON, ONE PILL DAILY.. WRITE DOWN THE BLOOD PESSURE AND HEART RATE AND BRING BY THE READINGS TO THE OFFICE NEXT WEEK.. IF THE BLOOD PRESSURE IS GREATER THAN 180 ON THE TOP NUMBER, call the office. . Medicare Exam - to day we discussed the patients past history, immunizations, preventative exams/evaluations - colonoscopy, fecal occult blood testing, routine labs for renal function, glucose, cholesterol, osteoporosis evaluations, cardiovascular testing and cancer screenings. We have also discussed mental health and the signs/symptoms of depression. The patient was advised of home safety evaluations and the need to make sure that as the aging process continues, we need to be aware of different ways to make the home a safer place to reside. The patient has also been counseled that exercise is necessary - and of utmost importance as we age to help decrease fall risk and to maintain independece in the home. Today we discussed the need for the patient to create paperwork for Advanced directives as well as for the patient to provide this office with a copy of her [employer] paperwork for health care surrogate.
--- OUTSIDE RECORDS SUMMARY | 2020-05-26 02:34 | XMS REPORT | CCD ---
Author Author Natali Varela Organization Zoya Varela MD, [facility] Address [address] [place] [address] Phone Care Team Providers Care Hot End Operator Name Role Phone PP Unavailable CCM Unavailable Summary Purpose Interface Exchange Insurance Providers Payer name Policy type / Coverage type Covered constitution party ID Effective Begin Date Effective End Date WPS Medicare Part B Medicare Part B [id number] Unknown [employer]URANCE Yu[employer]ingle Medicare Part B [id number] Unknown Family history Mother Diagnosis Age At Onset Liver Failure Unknown Diabetes mellitus Type 2 Unknown Hyperlipidemia Unknown Hypertension Unknown Cancer Unknown Arthritis Unknown Father Diagnosis Age At Onset Liver Failure Unknown Cancer Unknown Social History Social History Element Codes Description Effective Dates Marital status Unknown M arried 12/12/2011 Number of children Unknown 3 12/12/[address]: 2769769 Former smoker quit in 199212/12/2011 Allergies, Adverse [...] Fill Instructions meclizine 25 mg tablet RxNorm: 123606 TAKE ONE-HALF TO ONE TABLET BY MOUTH SORIN RY 6 HOURS NEEDED FOR VERTIGO 06/16/2019 06/29/2019 Active metoprolol tartrate 100 mg tablet RxNorm: 304369 1/2 Tablet(s) BID 06/14/2019 12/02/2021 Active this is an update to her RX - she does n ot need it filled right now Zithromax Z-Kush 250 mg tablet RxNorm: 711120 1 Tablet(s) PO UD 05/11/2019 05/15/2019 Inactive Kenalog 40 mg/mL sylvia pension for injection RxNorm: 1103575 1 Milliliter(s) Inj 05/11/2019 05/11/2019 In active tramadol 50 mg tablet RxNorm: 815861 1-2 Tablet(s) PO Q8 as needed 05/04/2019 07/02/2019 Ac tive prednisone 10 mg tab lets in a dose pack RxNorm: 287219 1 Tablet(s) PO UD 04/12/2019 04/17/2019 In active 6-5-4-3-2-1 amlodipine 5 mg tablet RxNorm: 781683 TAKE ONE TABLET BY MOUTH DAILY 03/26/2019 12/20/2019 Ac tive atorvastatin 20 mg t ablet RxNorm: 161607 TAKE ONE TABLET BY MO UTH DAILY 03/26/2019 09/21/2019 Ac tive doxazosin 4 mg tablet RxNorm: 535287 1 Tablet(s) UD 1.5 tab in AM and 1 tab a t hs 02/16/2019 09/13/2019 Ac tive metoprolol tartrate 100 mg tablet RxNorm: 664419 1.5 Tablet(s) BID 02/16/2019 06/13/2019 Inactive acyclovir 800 mg tablet RxNorm: 925388 1 Tablet(s) PO TID take for cold sore ou tbreaks 02/16/2019 04/26/2019 Inactive Xanax 0.25 mg tablet RxNorm: 451789 1/2-1 Tablet(s) PO QDAY PRN 02/03/2019 05/03/2019 Inactive cyclobenzaprine 10 m g tablet RxNorm: 072651 TAKE ONE TABLET BY MO UTH EVERY 8 HOURS NEEDED 01/27/2019 03/07/2019 Inactive doxazosin 4 mg tablet RxNorm: 520097 Tablet(s) TAKE ONE TABLET BY MOUTH TWO T IMES A DAY 01/21/2019 02/15/2019 Inactive doxazosin 4 mg tablet RxNorm: 552592 Tablet(s) TAKE ONE AND ONE-HALF (1 & 1/2 ) TABLET BY MOUTH BY MOUTH TWO TIMES A DAY 11/12/2018 01/20/2019 Inactive cyclobenzaprine 10 m g tablet RxNorm: 557879 TAKE ONE TABLET BY MO UTH EVERY 8 HOURS NEEDED 11/12/2018 12/01/2018 Inactive tramadol 50 mg tablet RxNorm: 622618 1-2 Tablet(s) PO Q8 as needed 10/02/2018 05/10/2019 In active metoprolol tartrate 100 mg tablet RxNorm: 398977 1 Tablet(s) BID 09/22/2018 02/15/2019 Inactive metoprolol tartrate 100 mg tablet RxNorm: 087753 TAKE ONE AND ONE-HALF (1 1/2) TABLETS BY MOUTH EVERY MORNING AND TAKE TWO TABLETS BY MOUTH EVERY EVENING 09/21/2018 09/21/2018 In active Xanax 0.25 mg tablet RxNorm: 383960 1/2-1 Tablet(s) PO QDAY PRN 08/19/2018 05/03/2019 Inactive cyclobenzaprine 10 m g tablet RxNorm: 995405 TAKE ONE TABLET BY MO UTH EVERY 8 HOURS NEEDED 07/01/2018 08/09/2018 Inactive atorvastatin 20 mg t ablet RxNorm: 329183 TAKE ONE TABLET BY MO UTH DAILY 06/29/2018 12/25/2018 In active atorvastatin 20 mg t ablet RxNorm: 536440 TAKE ONE TABLET BY MO UTH DAILY 06/29/2018 06/28/2018 In active pilocarpine 5 mg tablet RxNorm: 4857719 1 Tablet(s) PO BID 06/09/2018 06/08/2018 Inactive pilocarpine 5 mg tablet RxNorm: 6333459 1 Tablet(s) PO BID for dry mouth 06/09/2018 09/21/2018 In active Evoxac 30 mg capsule RxNorm: 148458 1 Capsule(s) PO BID as needed dry mouth 06/08/2018 06/08/2018 In active may substitute generic cyclobenzaprine 10 m g tablet RxNorm: 535381 TAKE ONE TABLET BY MO [facility] EVERY 8 HOURS NEEDED 05/14/2018 06/30/2018 Inactive amoxicillin 500 mg c apsule RxNorm: 130703 1 Capsule(s) PO BID 05/04/2018 05/13/2018 Inactive amoxicillin 500 mg c apsule RxNorm: 233406 1 Capsule(s) PO BID 05/04/2018 05/03/2018 Inactive tramadol 50 mg tablet RxNorm: 844923 1-2 Tablet(s) PO Q8 as needed 04/24/2018 06/21/2018 In active Kenalog 40 mg/mL sylvia pension for injection RxNorm: 2168553 Milliliter(s) Inj 04/24/2018 04/24/2018 In active amlodipine 5 mg tablet RxNorm: 971254 Tablet(s) TAKE ONE TABLET BY MOUTH DAILY 04/02/2018 03/25/2019 In active Xanax 0.25 mg tablet RxNorm: 329818 1/2-1 Tablet(s) PO QDAY PRN 04/02/2018 10/13/2018 Inactive metoprolol tartrate 100 mg tablet RxNorm: 242750 TAKE ONE AND ONE-HALF (1 1/2) TABLETS BY MOUTH EVERY MORNING AND TAKE TWO TABLETS BY MOUTH EVERY EVENING 02/25/2018 09/20/2018 In active Keflex 500 mg capsule RxNorm: 604927 1 Capsule(s) PO TID 02/06/2018 02/15/2018 Inactive Keflex 500 mg capsule RxNorm: 478595 1 Capsule(s) PO TID 02/06/2018 02/05/2018 Inactive Zithromax Z-Kush 250 mg tablet RxNorm: 898958 1 Tablet(s) PO UD 02/02/2018 02/06/2018 Inactive 2 tabs on day 1 then 1 tab daily on days 2-5 doxazosin 4 mg tablet RxNorm: 917173 TAKE ONE AND ONE-HALF (1 & 1/2) TABLET B Y MOUTH BY MOUTH TWO TIMES A DAY 01/16/2018 11/11/2018 Inactive atorvastatin 20 mg t ablet RxNorm: 910628 TAKE ONE TABLET BY MO UTH DAILY 12/31/2017 06/28/2018 In active furosemide 20 mg tablet RxNorm: 091623 TAKE ONE TABLET BY MOUTH DAILY NEEDED FOR EDEMA 12/26/2017 06/23/2018 Inactive potassium chloride E R 10 mEq tablet,extended release RxNorm: 035967 TAKE ONE TABLET BY MOUTH NEEDED WITH LASIX 12/26/2017 06/23/2018 Inactive Xanax 0.25 mg tablet RxNorm: 798249 1/2-1 Tablet(s) PO QDAY PRN 11/27/2017 08/18/2018 Inactive cyclobenzaprine 10 m g tablet RxNorm: 542843 TAKE ONE TABLET BY MO UTH EVERY 8 HOURS NEEDED 11/21/2017 02/08/2018 Inactive metoprolol tartrate 100 mg tablet RxNorm: 452114 TAKE ONE AND ONE-HALF (1 1/2) TABLETS BY MOUTH EVERY MORNING AND TAKE TWO TABLETS BY MOUTH EVERY EVENING 10/28/2017 02/24/2018 In active tramadol 50 mg tablet RxNorm: 937678 1-2 Tablet(s) PO Q8 as needed 10/28/2017 05/03/2019 In active cyclobenzaprine 10 m g tablet RxNorm: 955704 TAKE ONE TABLET BY MO UTH EVERY 8 HOURS NEEDED 08/27/2017 10/25/2017 Inactive Xanax 0.25 mg tablet RxNorm: 491803 1/2-1 Tablet(s) PO QDAY PRN 08/04/2017 04/01/2018 Inactive cyclobenzaprine 10 m g tablet RxNorm: 959345 TAKE ONE TABLET BY MO UTH EVERY 8 HOURS NEEDED 07/28/2017 08/16/2017 Inactive metoprolol tartrate 100 mg tablet RxNorm: 436310 TAKE ONE AND ONE-HALF (1 & 1/2) TABLET BY MOUTH EVERY MORNING AND TAKE TWO TABLETS BY MOUTH EVERY EVENING 07/28/2017 10/25/2017 In active cyclobenzaprine 10 m g tablet RxNorm: 421775 TAKE ONE TABLET BY MO UT EVERY 8 HOURS NEEDED 06/30/2017 07/19/2017 Inactive prednisone 10 mg tab lets in a dose pack RxNorm: 496827 1 Tablet(s) PO UD 06/23/2017 06/28/2017 In active 6-5-4-3-2-1 mupirocin 2 % topica l ointment RxNorm: 956160 1 Application TOP BID 06/23/2017 07/02/2017 Inactive Kenalog 40 mg/mL sylvia pension for injection RxNorm: 5612967 Milliliter(s) Inj 06/23/2017 06/23/2017 In active cyclobenzaprine 10 m g tablet RxNorm: 537150 TAKE ONE TABLET BY MO UTH EVERY 8 HOURS NEEDED 06/09/2017 06/28/2017 Inactive meclizine 25 mg tablet RxNorm: 048314 1 Tablet(s) PO Q6 PRN as needed 1/2 - 1 pill every 6 hours as needed for vertigo 06/03/2017 07/14/2017 Inactive atorvastatin 20 mg t ablet RxNorm: 832693 TAKE ONE TABLET BY MO UTH DAILY 05/30/2017 11/25/2017 In active amlodipine 5 mg tablet RxNorm: 056413 TAKE ONE TABLET BY MOUTH DAILY 05/15/2017 04/01/2018 In active cyclobenzaprine 10 m g tablet RxNorm: 134300 TAKE ONE TABLET BY MO UT EVERY 8 HOURS NEEDED 05/07/2017 05/26/2017 Inactive tramadol 50 mg tablet RxNorm: 917954 1-2 Tablet(s) PO Q8 as needed 04/07/2017 05/03/2019 In active cyclobenzaprine 10 m g tablet RxNorm: 561847 TAKE ONE TABLET BY MO UTH EVERY 8 HOURS NEEDED 04/07/2017 04/26/2017 Inactive Xanax 0.25 mg tablet RxNorm: 044402 1/2-1 Tablet(s) PO QDAY PRN 04/04/2017 06/02/2017 Inactive metoprolol tartrate 100 mg tablet RxNorm: 347046 TAKE ONE AND ONE-HALF (1 & 1/2) TABLET BY MOUTH EVERY MORNING AND TAKE TWO TABLETS BY MOUTH EVERY EVENING 03/28/2017 07/25/2017 In active prednisone 10 mg tab lets in a dose pack RxNorm: 926552 1 Tablet(s) PO UD 03/21/2017 03/26/2017 In active 6-5-4-3-2-1 Kenalog 40 mg/mL sylvia pension for injection RxNorm: 1355659 2 Milliliter(s) Inj 03/21/2017 03/21/2017 In active doxycycline hyclate 100 mg capsule RxNorm: 0645534 1 Capsule(s) PO BID 03/19/2017 03/28/2017 In active cyclobenzaprine 10 m g tablet RxNorm: 658704 TAKE ONE TABLET BY MO UT EVERY 8 HOURS NEEDED 02/25/2017 03/16/2017 Inactive triamcinolone aceton pineda 0.1 % topical ointment RxNorm: 2800591 1 Application TOP TI D 02/21/2017 02/20/2017 Inactive triamcinolone aceton pineda 0.1 % topical ointment RxNorm: 3776666 1 Application TOP TI D 02/21/2017 03/02/2017 Inactive doxazosin 4 mg tablet RxNorm: 456259 TAKE ONE AND ONE-HALF (1 & 1/2) TABLET B Y MOUTH BY MOUTH TWO TIMES A DAY 02/14/2017 01/09/2018 Inactive cyclobenzaprine 10 m g tablet RxNorm: 308706 TAKE ONE TABLET BY [facility] EVERY 8 HOURS NEEDED 01/27/2017 02/15/2017 Inactive ammonium lactate 12 % topical cream RxNorm: 858516 1 Application TOP BID 01/14/2017 02/12/2017 In active dispense one bottle of the cream potassium chloride E R 10 mEq tablet,extended release RxNorm: 169652 1 Tablet(s) PO PRN as needed with lasix 11/13/2016 12/25/2017 Inactive prn swelling furosemide 20 mg tablet RxNorm: 994109 1 Tablet(s) PO daily as needed edema 11/13/2016 01/11/2017 In active metoprolol tartrate 100 mg tablet RxNorm: 851064 TAKE ONE AND ONE-HALF (1 & 1/2) TABLET BY MOUTH EVERY MORNING AND TAKE TWO TABLETS BY MOUTH EVERY EVENING 11/01/2016 03/27/2017 In active atorvastatin 20 mg t ablet RxNorm: 559166 TAKE ONE TABLET BY MO UT DAILY 10/31/2016 04/28/2017 In active cyclobenzaprine 10 m g tablet RxNorm: 457549 TAKE ONE TABLET BY [facility] EVERY 8 HOURS NEEDED 10/25/2016 12/03/2016 Inactive Lyrica 25 mg capsule RxNorm: 133543 1 Tablet(s) PO BID 09/23/2016 01/13/2017 Inactive Lyrica 50 mg capsule RxNorm: 834955 1 Capsule(s) PO BID 09/16/2016 01/13/2017 Inactive amlodipine 5 mg tablet RxNorm: 112416 Tablet(s) TAKE ONE TABLET BY MOUTH DAILY 08/28/2016 05/14/2017 In active cyclobenzaprine 10 m g tablet RxNorm: 832220 TAKE ONE TABLET BY [facility] EVERY 8 HOURS NEEDED 08/05/2016 09/13/2016 Inactive Xanax 0.25 mg tablet RxNorm: 440608 1/2-1 Tablet(s) PO QDAY PRN 07/16/2016 04/03/2017 Inactive amlodipine 5 mg tablet RxNorm: 681324 TAKE ONE TABLET BY MOUTH DAILY 06/28/2016 08/26/2016 In active metoprolol tartrate 100 mg tablet RxNorm: 453793 Tablet(s) TAKE ONE AN D ONE-HALF (1 & 1/2) TABLET BY MOUTH EVERY MORNING AND TAKE TWO TABLETS BY MOUTH EVERY EVENING 05/02/2016 05/02/2016 Inactive metoprolol tartrate 100 mg tablet RxNorm: 577284 Tablet(s) PO TAKE ONE AND ONE-HALF (1 & 1/2) TABLET BY MOUTH EVERY MORNING AND TAKE TWO TABLETS BY MOUTH EVERY EVENING 05/02/2016 05/01/2016 Inactive metoprolol tartrate 100 mg tablet RxNorm: 975355 Tablet(s) PO TAKE ONE AND ONE-HALF (1 & 1/2) TABLET BY MOUTH EVERY MORNING AND TAKE TWO TABLETS BY MOUTH EVERY EVENING 05/02/2016 10/28/2016 Inactive atorvastatin 20 mg t ablet RxNorm: 991943 TAKE ONE TABLET BY [facility] DAILY 04/25/2016 10/21/2016 In active tramadol 50 mg tablet RxNorm: 791925 1-2 Tablet(s) PO Q8 as needed 04/25/2016 10/27/2017 In active cyclobenzaprine 10 m g tablet RxNorm: 815261 Tablet(s) PO TAKE ONE TABLET BY MOUTH EVERY 8 HOURS NEEDED 04/18/2016 06/16/2016 Inactive Kenalog 40 mg/mL sylvia pension for injection RxNorm: 6883361 1 Milliliter(s) Inj 04/04/2016 04/04/2016 In active Phenergan with Codei ne Syrup RxNorm: PO 04/03/2016 02/15/2019 Inactive Zithromax Z-Kush 250 mg tablet RxNorm: 230199 1 Tablet(s) PO UD 04/03/2016 04/07/2016 Inactive 2 tabs on day 1 then 1 tab daily on days 2-5 amlodipine 5 mg tablet RxNorm: 958563 TAKE ONE TABLET BY MOUTH DAILY 03/27/2016 06/24/2016 In active Flexeril 10 mg tablet RxNorm: 174464 TAKE ONE TABLET BY MOUTH EVERY 8 HOURS A S NEEDED 03/14/2016 04/02/2016 Inactive Vitamin B-12 ER 2,00 0 mcg tablet,extended release RxNorm: 126532 1 Tablet(s) PO daily 03/13/2016 No Stop Date Active Vitamin B-12 ER 2,00 0 mcg tablet,extended release RxNorm: 080715 1 Tablet(s) PO daily 03/13/2016 05/04/2019 Inactive gabapentin 100 mg ca psule RxNorm: 305779 1 Capsule(s) PO BID 03/13/2016 09/15/2016 Inactive Flexeril 10 mg tablet RxNorm: 927930 Tablet(s) TAKE ONE TABLET BY MOUTH EVERY 8 HOURS NEEDED 02/08/2016 02/27/2016 Inactive Xanax 0.25 mg tablet RxNorm: 482393 1/2-1 Tablet(s) PO QDAY PRN 02/08/2016 07/15/2016 Inactive amlodipine 5 mg tablet RxNorm: 645123 1 Tablet(s) PO daily 02/06/2016 03/26/2016 Inactive furosemide 20 mg tablet RxNorm: 992879 1 Tablet(s) PO daily 01/30/2016 06/16/2016 Inactive amlodipine 10 mg tablet RxNorm: 549054 1/2 Tablet(s) PO daily 01/30/2016 02/05/2016 Inactive doxazosin 4 mg tablet RxNorm: 474010 1.5 Tablet(s) PO BID 01/30/2016 01/23/2017 Inactive Flexeril 10 mg tablet RxNorm: 819283 TAKE ONE TABLET BY MOUTH EVERY 8 HOURS A S NEEDED 01/10/2016 01/29/2016 Inactive potassium chloride E R 10 mEq tablet,extended release RxNorm: 858454 1 Tablet(s) PO PRN as needed with lasix 12/25/2015 06/16/2016 Inactive prn swelling amlodipine 10 mg tablet RxNorm: 078123 TAKE ONE TABLET BY MOUTH EVERY MORNING 12/25/2015 12/24/2015 In active amlodipine 10 mg tablet RxNorm: 907227 TAKE ONE TABLET BY MOUTH EVERY MORNING 12/25/2015 01/29/2016 In active furosemide 20 mg tablet RxNorm: 182867 1/2 Tablet(s) PO daily as needed edema 12/21/2015 01/19/2016 In active pt needs to take 10meq potassium on days she takes the lasix metoprolol tartrate 100 mg tablet RxNorm: 585832 TAKE ONE AND ONE-HALF (1 & 1/2) TABLET BY MOUTH EVERY MORNING AND TAKE TWO TABLETS BY MOUTH EVERY EVENING 11/08/2015 12/07/2015 In active Flonase Allergy Reli ef 50 mcg/actuation nasal spray,suspension RxNorm: [place] as needed PLACE 2 SPRAYS IN EACH NOSTRIL DAILY 10/09/2015 02/05/2016 Inactive Flexeril 10 mg tablet RxNorm: 899545 1 Tablet(s) PO TID PRN TAKE ONE TABLET B Y MOUTH EVERY 8 HOURS NEEDED 10/09/2015 12/07/2015 Inactive alprazolam 0.5 mg ta blet RxNorm: 128816 TAKE ONE TABLET BY [facility] AT BEDTIME NEEDED FOR ANXIETY 08/29/2015 11/23/2015 Inactive Flonase Allergy Reli ef 50 mcg/actuation nasal spray,suspension RxNorm: PLACE 2 SPRAYS IN EACH NOSTRIL DAILY 07/06/2015 10/08/2015 Inactive Kenalog 40 mg/mL sylvia pension for injection RxNorm: 8098911 Milliliter(s) Inj 06/12/2015 06/12/2015 In active prednisone 10 mg tab lets in a dose pack RxNorm: 002351 1 Tablet(s) PO UD 06/12/2015 06/17/2015 In active 6-5-4-3-2-1 acyclovir 800 mg tablet RxNorm: 168448 1 Tablet(s) PO TID 06/12/2015 06/21/2015 Inactive Xanax 0.25 mg tablet RxNorm: 461662 1/2-1 Tablet(s) PO QDAY PRN 05/15/2015 02/07/2016 Inactive Flonase Allergy Reli ef 50 mcg/actuation nasal spray,suspension RxNorm: 2 [place] NASAL daily 05/15/2015 06/13/2015 Inactive Kenalog 40 mg/mL sylvia pension for injection RxNorm: 1584132 Milliliter(s) Inj 05/15/2015 05/15/2015 In active metoprolol tartrate 100 mg tablet RxNorm: 241281 TAKE ONE AND ONE-HALF (1 & 1/2) TABLET BY MOUTH EVERY MORNING AND TAKE TWO TABLETS BY MOUTH EVERY EVENING 05/07/2015 06/05/2015 In active metoprolol tartrate 100 mg tablet RxNorm: 398738 TAKE ONE AND ONE-HALF (1 & 1/2) TABLET BY MOUTH EVERY MORNING AND TAKE TWO TABLETS BY MOUTH EVERY EVENING 04/05/2015 05/04/2015 In active amlodipine 10 mg tablet RxNorm: 661018 TAKE ONE TABLET BY MOUTH EVERY MORNING 03/10/2015 12/04/2015 In active alprazolam 0.5 mg ta blet RxNorm: 825908 TAKE ONE TABLET BY MO UTH EVERY NIGHT AT BEDTIME NEEDED FOR ANXIETY 02/23/2015 03/24/2015 Inactive (Response to an electronic controlled substance refill request - RxReferenceNumber: [id number]) alprazolam 0.5 mg ta blet RxNorm: 483204 1 Tablet(s) PO QHS as needed anxiety 02/23/2015 08/29/2015 In active (Response to an electronic controlled salas bstance refill request - RxReferenceNumber: [id number]) doxazosin 4 mg tablet RxNorm: 269800 TAKE ONE TABLET BY MOUTH TWICE A DAY 02/13/2015 01/29/2016 In active atorvastatin 20 mg t ablet RxNorm: 240866 TAKE ONE TABLET BY MO UTH EVERY DAY 01/19/2015 05/03/2019 In active atorvastatin 20 mg t ablet RxNorm: 681678 Tablet(s) TAKE ONE TA BLET BY MOUTH EVERY DAY 01/19/2015 01/18/2015 Inactive [SAVINGS FOR NON-COVERED DRUGS -- BIN:3584, PCN: ASPROD1, Group: XXXXX, ID# [id number], Questions: . THIS IS NOT INSURANCE.] Maxzide-25mg 37.5 mg -25 mg tablet RxNorm: 09465 1 Tablet(s) PO daily 01/10/2015 10/08/2015 Inactive [SAVINGS FOR NON-COVERED DRUGS -- BIN:3584, PCN: ASPROD1, Group: XXXXX, ID# [id number], Questions: . THIS IS NOT INSURANCE.] metoprolol tartrate 100 mg tablet RxNorm: 026848 TAKE ONE AND ONE-HALF (1 & 1/2) TABLET BY MOUTH EVERY MORNING AND TAKE TWO TABLETS BY MOUTH EVERY EVENING 12/05/2014 01/03/2015 In active Flexeril 10 mg tablet RxNorm: 769453 TAKE ONE TABLET BY MOUTH EVERY 8 HOURS A S NEEDED 10/31/2014 06/27/2015 Inactive alprazolam 0.5 mg ta blet RxNorm: 361804 1 Tablet(s) PO QHS TA KE ONE TABLET BY MOUTH EVERY NIGHT AT BEDTIME AND NEEDED FOR PANIC ATTACKS 10/21/2014 10/23/2014 Inactive (Appended: Controlled substance eRx refi ll - RxReferenceNumber: [id number]) alprazolam 0.5 mg ta blet RxNorm: 755194 TAKE ONE TABLET BY MO UTH EVERY NIGHT AT BEDTIME NEEDED FOR ANXIETY 10/20/2014 11/18/2014 Inactive (Response to an electronic controlled substance refill request - RxReferenceNumber: [id number]) amlodipine 10 mg tablet RxNorm: 284831 1 Tablet(s) PO QAM 09/09/2014 03/07/2015 Inactive now taking full tab [SAVINGS FOR UNINSURED PATIENTS -- BIN:[id number], PCN: ASPROD1, Group: [id number], ID# [id number], Process claim through [email or web address], for questions: . THIS IS NOT INSURANCE.] metoprolol tartrate 100 mg tablet RxNorm: 005382 TAKE ONE AND ONE-HALF (1 & 1/2) TABLET BY MOUTH EVERY MORNING AND TAKE TWO TABLETS BY MOUTH EVERY EVENING 09/03/2014 10/02/2014 In active alprazolam 0.5 mg ta blet RxNorm: 076872 TAKE ONE TABLET BY MO UTH EVERY NIGHT AT BEDTIME AND NEEDED FOR PANIC ATTACKS 08/29/2014 09/12/2014 Inactive (Response to an electronic controlled substance refill request - RxReferenceNumber: [id number]) Zithromax Z-Kush 250 mg tablet RxNorm: 699696 1 Tablet(s) PO UD 07/26/2014 07/25/2014 Inactive 2 tabs on day 1 then 1 tab daily on days 2-5 Zithromax Z-Kush 250 mg tablet RxNorm: 766042 1 Tablet(s) PO UD 07/26/2014 07/30/2014 Inactive 2 tabs on day 1 then 1 tab daily on days 2-5 alprazolam 0.5 mg ta blet RxNorm: 359589 Tablet(s) PO TAKE ONE TABLET BY MOUTH EVERY NIGHT AT BEDTIME AND NEEDED FOR PANIC ATTACKS 07/08/2014 08/30/2014 Inactive (Appended: Controlled substance eRx refill - RxReferenceNumber: [id number]) atorvastatin 20 mg t ablet RxNorm: 185483 TAKE ONE TABLET BY MO UTH EVERY DAY 04/25/2014 01/18/2015 In active Carafate 1 gram tablet RxNorm: 648286 Tablet(s) PO TAKE ONE TABLET BY MOUTH FO UR TIMES A DAY 04/14/2014 10/08/2015 Inactive Fish Oil 1,000 mg ca psule RxNorm: 1 Capsule(s) PO TID 04/13/2014 10/08/2015 Inactive Flexeril 10 mg tablet RxNorm: 822299 1 Tablet(s) PO Q8 PRN 04/01/2014 04/10/2014 Inactive Carafate 1 gram tablet RxNorm: 247380 1 Tablet(s) PO QID 03/10/2014 02/15/2019 Inactive chlordiazepoxide-cli dinium 5 mg-2.5 mg capsule RxNorm: 655329 1 Capsule(s) PO TID P RN 03/10/2014 04/10/2014 Inactive doxazosin 4 mg tablet RxNorm: 120173 1 Tablet(s) PO BID 02/02/2014 02/12/2015 Inactive Kenalog 40 mg/mL sylvia pension for injection RxNorm: 4481388 Milliliter(s) Inj 02/02/2014 02/02/2014 In active atorvastatin 20 mg t ablet RxNorm: 052039 Tablet(s) PO TAKE ONE TABLET BY MOUTH EVERY DAY 01/10/2014 04/24/2014 Inactive alprazolam 0.5 mg ta blet RxNorm: 462078 Tablet(s) PO TAKE ONE TABLET BY MOUTH EVERY NIGHT AT BEDTIME AND NEEDED FOR PANIC ATTACKS 01/10/2014 07/07/2014 Inactive (Appended: Controlled substance eRx refill - RxReferenceNumber: [id number]) alprazolam 0.5 mg ta blet RxNorm: 619786 1 Tablet(s) PO QHS TA KE ONE TABLET BY MOUTH EVERY NIGHT AT BEDTIME AND NEEDED FOR PANIC ATTACKS 01/10/2014 10/20/2014 Inactive (Appended: Controlled substance eRx refi ll - RxReferenceNumber: [id number]) alprazolam 0.5 mg ta blet RxNorm: 890790 Tablet(s) PO TAKE ONE TABLET BY MOUTH EVERY NIGHT AT BEDTIME AND NEEDED FOR PANIC ATTACKS 01/10/2014 01/09/2014 Inactive (Appended: Controlled substance eRx refill - RxReferenceNumber: [id number]) Carafate 1 gram tablet RxNorm: 597195 1 Tablet(s) PO QID 12/16/2013 01/14/2014 Inactive Nexium 40 mg capsule ,delayed release RxNorm: 160163 Capsule(s) PO TAKE ON E CAPSULE BY MOUTH EVERY DAY 11/25/2013 03/12/2016 Inactive doxazosin 4 mg tablet RxNorm: 143138 1/2 Tablet(s) PO QPM 10/21/2013 01/20/2019 Inactive alprazolam 0.5 mg ta blet RxNorm: 588376 1 Tablet(s) PO as dir ected q hs and prn panic attacks 10/18/2013 01/10/2014 Inactive doxazosin 4 mg tablet RxNorm: 610083 1 q am 1/2 q pm Tablet(s) PO 09/21/2013 02/01/2014 Inactive doxazosin 4 mg tablet RxNorm: 182906 1 q am 1/2 q pm Tablet(s) PO 09/21/2013 09/20/2013 Inactive amlodipine 10 mg tablet RxNorm: 268511 1 Tablet(s) PO QAM 08/30/2013 08/24/2014 Inactive now taking full tab metoprolol tartrate 100 mg tablet RxNorm: 798899 2 Tablet(s) PO QPM 08/24/2013 10/22/2013 Inactive alprazolam 0.5 mg ta blet RxNorm: 933453 1 Tablet(s) PO as dir ected q hs and prn panic attacks 07/29/2013 10/17/2013 Inactive Benicar 20 mg tablet RxNorm: 639611 1 Tablet(s) PO daily 07/26/2013 08/09/2013 Inactive amlodipine 10 mg tablet RxNorm: 993540 1 Tablet(s) PO QAM 07/19/2013 08/29/2013 Inactive cyclobenzaprine 5 mg tablet RxNorm: 649055 1 Tablet(s) PO TID WA N one pill every 8 hours as needed for muscle spasms. 07/19/2013 03/31/2014 Inactive Kenalog 40 mg/mL Sylvia p for Injection RxNorm: 8118959 1 Milliliter(s) Inj 06/30/2013 06/30/2013 In active prednisone 10 mg tab lets in a dose pack RxNorm: 665111 1 Tablet(s) PO as doc tor directed take steroid taper as directed on box 06/30/2013 07/09/2013 Inactive disp ense one PACK meclizine 25 mg tablet RxNorm: 896076 1 Tablet(s) PO Q6 PRN 1/2 - 1 pill every 6 hours as needed for vertigo 06/30/2013 08/10/2013 Inactive metoprolol tartrate 100 mg tablet RxNorm: 773797 1.5 Tablet(s) PO BID 06/30/2013 08/23/2013 In active metoprolol tartrate 100 mg tablet RxNorm: 204319 1 Tablet(s) PO BID 06/24/2013 06/29/2013 Inactive metoprolol tartrate 100 mg tablet RxNorm: 239748 1 Tablet(s) PO daily 06/17/2013 06/23/2013 In active metoprolol tartrate 100 mg tablet RxNorm: 774059 1 Tablet(s) PO daily 06/17/2013 06/16/2013 In active Toprol XL 100 mg tab let,extended release RxNorm: 541969 Tablet(s) PO TAKE ONE AND ONE- HALF TABLET BY MOUTH EVERY MORNING AND ONE TABLET IN THE EVENING 05/05/2013 06/22/2013 In active alprazolam 0.5 mg ta blet RxNorm: 184047 1 Tablet(s) PO as dir ected q hs and prn panic attacks 04/06/2013 07/28/2013 Inactive doxazosin 4 mg tablet RxNorm: 860954 Tablet(s) PO TAKE ONE TABLET BY MOUTH EV 04/01/2013 09/20/2013 Inactive Toprol XL 100 mg tab let,extended release RxNorm: 706402 Tablet(s) PO TAKE ONE AND ONE- HALF TABLET BY MOUTH EVERY MORNING AND ONE TABLET IN THE EVENING 12/25/2012 05/04/2013 In active Lasix 20 mg tablet RxNorm: 565277 1 Tablet(s) PO QDAY PRN Take 1 tab daily x 3 days then as needed 12/02/2012 04/10/2014 Inactive potassium chloride E R 20 mEq tablet,extended release(part/cryst) RxNorm: 229296 1 Tablet(s) PO PRN 12/02/2012 10/04/2013 Inactive prn swelling alprazolam 0.5 mg ta blet RxNorm: 547164 1 Tablet(s) PO as dir ected q hs and prn panic attacks 12/01/2012 04/05/2013 Inactive amlodipine 10 mg tablet RxNorm: 403791 1/2 Tablet(s) PO QAM 12/01/2012 07/18/2013 Inactive fluconazole 150 mg t ablet RxNorm: 080974 1 Tablet(s) PO daily 11/16/2012 11/20/2012 Inactive fluconazole 150 mg t ablet RxNorm: 186659 1 Tablet(s) PO daily 11/16/2012 11/15/2012 Inactive Nexium 40 mg capsule ,delayed release RxNorm: 166917 1 Capsule(s) PO daily 10/23/2012 11/16/2013 In active acyclovir 400 mg tablet RxNorm: 973093 1 Tablet(s) PO TID 10/19/2012 10/28/2012 Inactive chlordiazepoxide-cli dinium 5 mg-2.5 mg capsule RxNorm: 888930 1 Capsule(s) PO TID P RN 2012 12/22/2013 Inactive Voltaren 1 % Topical Gel RxNorm: 694556 4 Gram(s) TOP QID pt is to use 2 grams to each hand and 4 grams to knees. 08/18/2012 04/10/2014 Inactive doxazosin 4 mg tablet RxNorm: 767190 1 Tablet(s) PO QAM 08/18/2012 10/16/2012 Inactive atorvastatin 20 mg t ablet RxNorm: 087988 1 Tablet(s) PO HS 08/12/2012 08/11/2012 Inactive may have #90 x3 infection atorvastatin 20 mg t ablet RxNorm: 889311 1 Tablet(s) PO HS 08/12/2012 09/05/2013 Inactive may have #90 x3 infection doxazosin 4 mg tablet RxNorm: 119644 1 Tablet(s) PO daily 08/11/2012 08/17/2012 Inactive clonidine 0.1 mg/24 hr Weekly Transderm Patch RxNorm: 809727 1 Patch TD QW 08/04/2012 08/10/2012 In active Influenza Virus Vacc ine 0.5 mL RxNorm: IM 08/04/2012 08/04/2012 Inactive cyclobenzaprine 5 mg tablet RxNorm: 851976 1 Tablet(s) PO TID WA N one pill every 8 hours as needed for muscle spasms. 07/13/2012 11/09/2012 Inactive cyclobenzaprine 5 mg tablet RxNorm: 673434 1 Tablet(s) PO TID WA N one pill every 8 hours as needed for muscle spasms. 07/09/2012 07/12/2012 Inactive gabapentin 100 mg ca psule RxNorm: 321302 1 Capsule(s) PO TID 07/01/2012 12/01/2012 Inactive atorvastatin 20 mg t ablet RxNorm: 053780 1/2 Tablet(s) PO daily 07/01/2012 08/11/2012 Inactive may of day supply if cheaper Toprol XL 100 mg tab let,extended release RxNorm: 456544 Tablet(s) PO BID 11/2 in am and 1 in evening 07/01/2012 06/16/2013 Inactive 1 1/2 q am 1 in sorin alprazolam 0.5 mg ta blet RxNorm: 849026 1 Tablet(s) PO as dir ected q hs and prn panic attacks 06/24/2012 11/30/2012 Inactive amlodipine 10 mg tablet RxNorm: 292067 1 Tablet(s) PO QAM 06/19/2012 11/30/2012 Inactive benazepril 20 mg tablet RxNorm: 535226 1 Tablet(s) PO daily 06/19/2012 06/13/2013 Inactive one daily at noon Toprol XL 100 mg tab let,extended release RxNorm: 496351 Tablet(s) PO BID 06/19/2012 06/30/2012 In active 1 1/2 q am 1 in sorin Toprol XL 100 mg tab let,extended release RxNorm: 284652 1 1/2 Tablet(s) PO BI D 04/27/2012 06/18/2012 In active 90 or 30 day supply, whatever ins will a llow Lotrel 10 mg-20 mg Cap RxNorm: 203345 1 Capsule(s) PO daily 04/20/2012 08/04/2012 Inactive estradiol 0.5 mg Tab RxNorm: 716708 1 Tablet(s) PO BID 04/20/2012 12/02/2012 Inactive Toprol XL 100 mg 24 hr Tab RxNorm: 826912 1 1/2 Tablet(s) PO BID 04/14/2012 04/26/2012 Inactive Toprol XL 100 mg 24 hr Tab RxNorm: 706423 Tablet(s) PO daily 03/31/2012 04/13/2012 Inactive new directions: one q am 1/2 every evepl ease put on file until she needs filled Lipitor 10 mg tablet RxNorm: 794964 1 Tablet(s) PO daily 03/31/2012 12/02/2012 Inactive may of 90 day supply if cheaper Toprol XL 100 mg 24 hr Tab RxNorm: 725393 1 Tablet(s) PO daily 03/11/2012 03/30/2012 Inactive Boniva 150 mg Tab RxNorm: 952906 1 Tablet(s) PO weekly 02/19/2012 12/02/2012 Inactive Detrol LA 4 mg capsu le,extended release RxNorm: 962893 1 Capsule(s) PO daily 02/19/2012 03/12/2016 In active doxycycline hyclate 100 mg Tab RxNorm: 0172082 1 Tablet(s) PO BID 01/23/2012 02/25/2012 Inactive Rocephin 500 mg Solu tion for Injection RxNorm: 8177949 1 Milliliter(s) Inj 01/23/2012 01/23/2012 In active Kenalog 40 mg/mL Sylvia p for Injection RxNorm: 4808459 1 Milliliter(s) Inj 01/23/2012 01/23/2012 In active cyclobenzaprine 5 mg tablet RxNorm: 250210 1 Tablet(s) PO TID WA N one pill every 8 hours as needed for muscle spasms. 12/20/2011 04/17/2012 Inactive clonidine 0.1 mg Tab RxNorm: 287295 1 Tablet(s) PO BID 12/20/2011 02/25/2012 Inactive Celebrex 200 mg capsule RxNorm: 946550 1 Capsule(s) PO daily -Prescribed by Dr. Madison No Start Date Active Vitamin D3 5,000 uni t tablet RxNorm: 449499 1 Tablet(s) PO daily No Start Date Active Nexium 24HR 22.3 mg capsule,delayed release RxNorm: 320123 1 Capsule(s) PO daily as needed No Start Date Active Lotrel 10 mg-20 mg Cap RxNorm: 505801 1 Capsule(s) PO daily No Start Date 02/24/2012 Inactive benazepril 20 mg tablet RxNorm: 227465 1 Tablet(s) PO No Start Date 06/18/2012 Inactive one daily at noon Vimovo 500 mg-20 mg multiphase, immed & delay rel Tab RxNorm: 442640 1 Tablet(s) PO BID No Start Date 12/01/2012 Inactive B12 1000 mcg RxNorm: 2 IM daily No Start Date 03/12/2016 Inactive Fish Oil 1,000 mg ca psule RxNorm: 1 Capsule(s) PO BID No Start Date 04/12/2014 Inactive Benicar 40 mg tablet RxNorm: 574345 1 Tablet(s) PO daily No Start Date 10/24/2013 Inactive Carafate 1 gram tablet RxNorm: 927808 Oral No Start Date 12/15/2013 Inactive Vitamin B-12 1,000 m cg tablet RxNorm: 268639 1 Tablet(s) PO daily No Start Date 03/12/2016 Inactive amlodipine 10 mg tablet RxNorm: 432124 1 Tablet(s) PO daily No Start Date 06/18/2012 Inactive Phenergan VC-Codeine 6.25 mg-5 mg-10 mg/5 mL Syrup RxNorm: 065046 5-10 Milliliter(s) PO Q6 PRN No Start Date 04/10/2014 Inactive Celebrex 200 mg capsule RxNorm: 081767 1 Capsule(s) PO daily No Start Date 10/08/2015 Inactive Percocet 5 mg-325 mg tablet RxNorm: 0229613 1-2 Tablet(s) PO Q6 PRN No Start Date 06/16/2014 Inactive Exforge 10 mg-320 mg Tab RxNorm: 870118 1 Tablet(s) PO daily sample No Start Date 05/20/2012 Inactive Lipitor 10 mg Tab RxNorm: 955472 1 Tablet(s) PO daily No Start Date 03/30/2012 Inactive tramadol 50 mg tablet RxNorm: 768394 1-2 Tablet(s) PO Q8 as needed No Start Date 04/24/2016 Inactive Lasix 20 mg tablet RxNorm: 560901 1 Tablet(s) PO QDAY PRN Take 1 tab daily x 3 days then as needed No Start Date 12/01/2012 Inactive potassium chloride E R 20 mEq tablet,extended release(part/cryst) RxNorm: 5660089 1 Tablet(s) PO QDAY PRN No Start Ochoa e 12/01/2012 Inactive Toprol XL 100 mg 24 hr Tab RxNorm: 393342 1 Tablet(s) PO daily No Start Date 03/10/2012 Inactive MIDRIN 325 mg-65 mg- 100 mg Cap RxNorm: 197719 1 Capsule(s) PO PRN No Start Date 05/20/2012 Inactive Nexium 40 mg capsule ,delayed release RxNorm: 592983 1 Capsule(s) PO daily No Start Date 10/22/2012 Inactive Detrol LA 4 mg 24 hr Cap RxNorm: 626064 Oral No S tart Date 02/18/2012 Inactive Boniva 150 mg Tab RxNorm: 055956 Oral No Start Date 02/18/2012 Inactive Flexeril 10 mg tablet RxNorm: 222549 1 Tablet(s) PO Q8 PRN No Start Date 03/31/2014 Inactive clidinium bromide Oral RxNorm: Oral No Start Date 12/01/2012 Inactive Fish Oil 360 mg-1,20 0 mg capsule,delayed release RxNorm: 1 Capsule(s) PO daily No Start Date 02/15/2019 Inactive alprazolam 0.5 mg ta blet RxNorm: 976263 1 Tablet(s) PO as dir ected q hs and prn panic attacks No Start Date 06/23/2012 Inactive chlordiazepoxide Oral RxNorm: Oral No Start Date 12/01/2012 Inactive metoprolol tartrate 100 mg tablet RxNorm: 172514 Tablet(s) PO TAKE ONE AND ONE-HALF (1 & 1/2) TABLET BY MOUTH EVERY MORNING AND TAKE TWO TABLETS BY MOUTH EVERY EVENING No Start Date 08/03/2014 Inactive furosemide 20 mg tablet RxNorm: 270775 1 Tablet(s) PO daily No Start Date 01/29/2016 Inactive Calcium Oral RxNorm: Oral No Start Date 03/12 Inactive Nasonex 50 mcg/actua tion [employer] RxNorm: 168643 1 Enterprise NASAL BID No Start Date 04/10/2014 Inactive Medication Administered Medication Codes Instruc tions Start Date Status Kenalog 40 mg/mL suspension for injection RxNorm: 4034678 1Milliliter 05/11/2019 N o longer Active Kenalog 40 mg/mL suspension for injection RxNorm: 3823750 Milliliter 04/24/2018 No longer Active Kenalog 40 mg/mL suspension for injection RxNorm: 8934726 Milliliter 06/23/2017 No longer Active Kenalog 40 mg/mL suspension for injection RxNorm: 8153976 2Milliliter 03/21/2017 N o longer Active Kenalog 40 mg/mL suspension for injection RxNorm: 4525590 1Milliliter 04/04/2016 N o longer Active Kenalog 40 mg/mL suspension for injection RxNorm: 5365382 Milliliter 06/12/2015 No longer Active Kenalog 40 mg/mL suspension for injection RxNorm: 3623310 Milliliter 05/15/2015 No longer Active Kenalog 40 mg/mL suspension for injection RxNorm: 2683897 Milliliter 02/02/2014 No longer Active Kenalog 40 mg/mL Susp for Injection RxNorm: 9550188 1Milliliter 06/30/2013 N o longer Active Influenza Virus Vaccine 0.5 mL RxNorm: 08/04/2012 No longer Active Rocephin 500 mg Solution for Injection RxNorm: 6217854 1Milliliter 01/23/2012 N o longer Active Kenalog 40 mg/mL Susp for Injection RxNorm: 8970914 1Milliliter 01/23/2012 N o longer Active Immunizations [...] Observation Code Item Item Code Result Date Cbc With Differential Ord2 WBC 5.7 K/uL [...] Ord2 RDW 14.8 % 06/05/2015 Comp Metabolic Rsl919 NA 138 mEq/L 06/05/2015 Comp Metabolic Qly793 K 4.3 mEq/L 06/05/2015 Comp Metabolic Zxm848 CL 100 mEq/L 06/05/2015 Comp Metabolic Eao970 CO2 29.0 mEq/L 06/05/2015 Comp Metabolic Dxe722 AN ION GAP 13 06/05/2015 Comp Metabolic Mqc373 GL UCOSE 85 mg/dL 06/05/2015 Comp Metabolic Cys731 Cr eat 0.7 mg/dL 06/05/2015 Comp Metabolic Qda133 eG FR 94 ml/min/1.73m2 06/05 Comp Metabolic Bey679 BUN 16 mg/dL 06/05/2015 Comp Metabolic Qls413 B/ C Ratio 24.2 Ratio 06/05/2015 Comp Metabolic Auq749 CA LCIUM 9.5 mg/dL 06/05/2015 Comp Metabolic Rao914 AL K PHOS 69 U/L 06/05/2015 Comp Metabolic Nag750 T(SGOT) 22 U/L 06/05/2015 Comp Metabolic Abf112 AL T(SGPT) 26 U/L 06/05/2015 Comp Metabolic Kgc287 BI LI T 0.5 mg/dL 06/05/2015 Comp Metabolic Jws989 AL BUMIN 4.2 g/dL 06/05/2015 Comp Metabolic Uvg923 TP RO 6.1 g/dL 06/05/2015 Comp Metabolic Qtt777 GL OB 1.9 g/dL 06/05/2015 Comp Metabolic Qzf564 A/ G Ratio 2.2 Ratio 06/05/2015 Comp Metabolic Qad731 Os mo 276 mOsmo 06/05/2015 Tsh Ord6 hTSH II 1.99 uIU/mL 06/05/2015 Lipid Ord30 CHOL 171 mg/dL 06/05/2015 Lipid Ord30 HDL 55.0 mg/dl 06/05/2015 Lipid Ord30 TRIG 178 mg/dL 06/05/2015 Lipid Ord30 LDL 80 mg/dL 06/05/2015 Lipid Ord30 C/HDL 3.1 Ratio 06/05/2015 %Hba1C Mud281 % HbA1c 79655-6 5.7 % 06/05/2015 %Hba1C Mra190 Gluc Ave 117 mg/dL 06/05/2015 A1C HPLC 3440235 A1C HPLC 77750-0 5.6 % 07/15/2014 GFR CALC 1127863 GFR AA >60 ML/MIN 07/15/2014 GFR CALC 5197001 GFR NON -AA >60 ML/MIN 07/15/2014 CHEM 14 2382500 AST 21 U/L 07/15/2014 CHEM 14 1408419 ALT 23 IU/L 07/15/2014 CHEM 14 0169962 BUN 14 MG/DL 07/15/2014 CHEM 14 2211766 ALBUMIN 4.2 GM/DL 07/15/2014 CHEM 14 7410258 CHLORIDE 104 MMOL/L 07/15/2014 CHEM 14 0883816 BILI TOT 0.4 MG/DL 07/15/2014 CHEM 14 1337190 ALK PHOS 88 U/L 07/15/2014 CHEM 14 2244724 SODIUM 140 MMOL/L 07/15/2014 CHEM 14 1518801 CREATINI NE 0.63 MG/DL 07/15/2014 CHEM 14 5658819 CALCIUM 9.4 MG/DL 07/15/2014 CHEM 14 1403962 POTASSIUM 4.0 MMOL/L 07/15/2014 CHEM 14 9559250 PROT TOT 6.4 GM/DL 07/15/2014 CHEM 14 2195604 GLUCOSE 90 MG/DL 07/15/2014 CHEM 14 9558361 BICARB 30 MMOL/L 07/15/2014 CHEM 14 9129997 ANION GAP 6 MEQ/L 07/15/2014 A1C HPLC 3567655 A1C HPLC 80371-9 6.0 % 04/13/2014 TSH 2394318 TSH 1.875 uIU/ML 04/12/2014 CHEM 14 3719244 AST 17 U/L 04/12/2014 CHEM 14 0058558 ALT 20 IU/L 04/12/2014 CHEM 14 1178914 BUN 14 MG/DL 04/12/2014 CHEM 14 1745260 ALBUMIN 4.2 GM/DL 04/12/2014 CHEM 14 7113414 CHLORIDE 104 MMOL/L 04/12/2014 CHEM 14 4676480 BILI TOT 0.3 MG/DL 04/12/2014 CHEM 14 8853195 ALK PHOS 80 U/L 04/12/2014 CHEM 14 5233512 SODIUM 141 MMOL/L 04/12/2014 CHEM 14 1241436 CREATINI NE 0.62 MG/DL 04/12/2014 CHEM 14 7330470 CALCIUM 9.4 MG/DL 04/12/2014 CHEM 14 7178151 POTASSIUM 3.5 MMOL/L 04/12/2014 CHEM 14 7815514 PROT TOT 6.5 GM/DL 04/12/2014 CHEM 14 3214653 GLUCOSE 89 MG/DL 04/12/2014 CHEM 14 8169174 BICARB 29 MMOL/L 04/12/2014 CHEM 14 8787533 ANION GAP 8 MEQ/L 04/12/2014 LIPID GRP HDL TE ST 59 MG/DL 04/12/2014 LIPID GRP TRIG 177 MG/DL 04/12/2014 LIPID GRP 0157358 TEST L DL 106 MG/DL 04/12/2014 LIPID GRP CHOL 200 MG/DL 04/12/2014 LIPID GRP RCHOL/ HDL 3.39 RATIO 04/12/2014 CBC 2201363 WBC 4.6 10e9/L 04/12/2014 CBC 5588143 RBC 4.52 10e12/L 04/12/2014 CBC 0595485 HGB 13.1 g/dL 04/12/2014 CBC 1305447 HCT DET 39.2 % 04/12/2014 CBC 9892782 MCV 86.7 fL 04/12/2014 CBC 5437309 MCH 29.0 pg 04/12/2014 CBC 1208835 MCHC 33.4 g/dL 04/12/2014 CBC 2202097 PLT 233 10e9/L 04/12/2014 CBC 0150977 MPV 9.8 fL 04/12/2014 CBC 8132001 AN % 59.5 % 04/12/2014 CBC 6214038 LY % 28.6 % 04/12/2014 CBC 0563960 MON % 10.0 % 04/12/2014 CBC 9517724 EOS % 1.5 % 04/12/2014 CBC 1416487 BASO % 0.4 % 04/12/2014 CBC 2641436 RDW 13.7 % 04/12/2014 CBC 1702862 ABS AN 2.74 10e9/L 04/12/2014 CBC 7132806 ABS LYMPH 1.32 10e9/L 04/12/2014 CBC 2472505 ABS MONO 0.46 10e9/L 04/12/2014 CBC 7973816 ABS EOS 0.07 10e9/L 04/12/2014 CBC 2403548 ABS BASO 0.02 10e9/L 04/12/2014 CBC 8060703 RDW-SD 42.6 fL 04/12/2014 GFR CALC 6202555 GFR AA >60 ML/MIN 04/12/2014 GFR CALC 5107832 GFR NON -AA >60 ML/MIN 04/12/2014 LIPID GRP HDL TE ST 57 MG/DL 08/24/2013 LIPID GRP TRIG 183 MG/DL 08/24/2013 LIPID GRP 9623918 TEST L DL 64 MG/DL 08/24/2013 LIPID GRP 6773617 CHOL 158 MG/DL 08/24/2013 LIPID GRP 3941895 RCHOL/ HDL 2.77 RATIO 08/24/2013 GFR CALC 1989322 GFR AA >60 ML/MIN 08/24/2013 GFR CALC 1925080 GFR NON -AA >60 ML/MIN 08/24/2013 CHEM 14 8361141 AST 13 U/L 08/24/2013 CHEM 14 3468935 ALT 15 IU/L 08/24/2013 CHEM 14 0602535 BUN 14 MG/DL 08/24/2013 CHEM 14 9557619 ALBUMIN 4.3 GM/DL 08/24/2013 CHEM 14 7387056 CHLORIDE 106 MMOL/L 08/24/2013 CHEM 14 9793049 BILI TOT 0.3 MG/DL 08/24/2013 CHEM 14 3556627 ALK PHOS 75 U/L 08/24/2013 CHEM 14 3070080 SODIUM 141 MMOL/L 08/24/2013 CHEM 14 4518543 CREATINI NE 0.56 MG/DL 08/24/2013 CHEM 14 9411039 CALCIUM 9.1 MG/DL 08/24/2013 CHEM 14 8342969 POTASSIUM 4.2 MMOL/L 08/24/2013 CHEM 14 7993677 PROT TOT 6.0 GM/DL 08/24/2013 CHEM 14 1354363 GLUCOSE 83 MG/DL 08/24/2013 CHEM 14 4599540 BICARB 28 MMOL/L 08/24/2013 CHEM 14 1996529 ANION GAP 7 MEQ/L 08/24/2013 CBC 6605554 WBC 4.7 10e9/L 08/24/2013 CBC 3548844 RBC 4.33 10e12/L 08/24/2013 CBC 2949586 HGB 12.5 g/dL 08/24/2013 CBC 6625100 HCT DET 38.2 % 08/24/2013 CBC 8593754 MCV 88.2 fL 08/24/2013 CBC 8276576 MCH 28.9 pg 08/24/2013 CBC 9009975 MCHC 32.7 g/dL 08/24/2013 CBC 6192778 PLT 218 10e9/L 08/24/2013 CBC 4125772 MPV 10.4 fL 08/24/2013 CBC 1569650 AN % 61.9 % 08/24/2013 CBC 9801829 LY % 24.8 % 08/24/2013 CBC 1455863 MON % 10.3 % 08/24/2013 CBC 3253008 EOS % 2.1 % 08/24/2013 CBC 9915288 BASO % 0.9 % 08/24/2013 CBC 8747146 RDW 14.6 % 08/24/2013 CBC 9831595 ABS AN 2.91 10e9/L 08/24/2013 CBC 0702838 ABS LYMPH 1.17 10e9/L 08/24/2013 CBC 2849050 ABS MONO 0.48 10e9/L 08/24/2013 CBC 8447804 ABS EOS 0.10 10e9/L 08/24/2013 CBC 9174308 ABS BASO 0.04 10e9/L 08/24/2013 CBC 6182386 RDW-SD 46.7 fL 08/24/2013 TSH 1319179 TSH 1.208 uIU/ML 08/24/2013 Review of Systems [...] eyelid erythema 05/11/2019 Eyes No eyelid pain 0 07/2019 Eyes No photophobia 07/2019 Eyes No [...] 02/16/2019 Musculoskeletal muscle weakness 02/16/2019 Psychiatric anxiety 04/1 04/2019 Constitutional recent illness 01/21/2019 Constitutional No anorexia [...] 06/08/2018 Musculoskeletal muscle weakness 06/08/2018 Psychiatric anxiety 08/0 04/2018 Constitutional recent illness 05/04/2018 Constitutional No anorexia [...] consciousness 02/04/2018 Neurologic pain, limb Psychiatric anxiety 04/02/2018 Cardiovascular hypertension 02/04/2018 Musculoskeletal muscle weakness 02/04/2018 [...] No rash Dermatologic No sores Psychiatric anxiety 07/1 01/2015 Psychiatric depression 0 05/15/2015 Constitutional No recent [...] Effective Dates Notes Full Exam - General 1995 Constitutional general appearance Overall: well developed 06/14/2019 [...] General 1994 Ears/Nose/Throat lips/teeth/gingiva Overall: benign lips 05/11/2019 None Full Exam - General 1994 Ears/Nose/Throat lips/teeth/gingiva Overall: normal dentition 05/11/2019 None Full Exam - General 1994 Ears/Nose/Throat oral cavity/pharynx/larynx Overall: oral mucosa clear 05/11/2019 None Full Exam - General 1995 Ears/Nose/Throat oral cavity/pharynx/larynx Posterior Pharynx: clear post nasal drainage 05/11/2019 None Full Exam - General 1994 Ears/Nose/Throat oral cavity/pharynx/larynx Oropharynx: erythema 05/11/2019 None [...] normal 01/21/2019 None Full Exam - General 1995 Ears/Nose/Throat otoscopic exam Overall: external auditory canals clear 01/21/2019 None Full Exam - General 1994 Ears/Nose/Throat otoscopic exam Tympanic membrane: air-fluid level 01/21/2019 None Full Exam - General 1995 Ears/Nose/Throat internal nose Drainage: clear 01/21/2019 None Full Exam - General 1995 Ears/Nose/Throat internal nose Sinus tenderness: left maxillary [...] clear 04/11/2014 None Full Exam - General 1995 Ears/Nose/Throat oral cavity/pharynx/larynx Overall: oral mucosa clear 04/11/2014 None Full Exam - General 1995 Ears/Nose/Throat oral cavity/pharynx/larynx Overall: oropharyngeal mucosa clear 04/11/2014 None Full Exam - General 1995 Ears/Nose/Throat oral cavity/pharynx/larynx Overall: no masses 04/11/2014 [...] accomodation 03/10/2014 None Full Exam - General 1995 Ears/Nose/Throat otoscopic exam Overall: external auditory canals clear 03/10/2014 None Full Exam - General 1995 Ears/Nose/Throat otoscopic exam Overall: tympanic membranes clear 03/10/2014 None Full Exam - General 1995 Ears/Nose/Throat oral cavity/pharynx/larynx Overall: oral mucosa clear 03/10/2014 None Full Exam - General 1995 Ears/Nose/Throat oral cavity/pharynx/larynx Overall: oropharyngeal mucosa clear 03/10/2014 None Full Exam - General 1995 Ears/Nose/Throat oral cavity/pharynx/larynx Overall: no masses 03/10/2014 [...] clear 02/02/2014 None Full Exam - General 1995 Ears/Nose/Throat oral cavity/pharynx/larynx Overall: oral mucosa clear 02/02/2014 None Full Exam - General 1995 Ears/Nose/Throat [...] clear 10/25/2013 None Full Exam - General 1995 Ears/Nose/Throat otoscopic exam Overall: tympanic membranes clear 10/25/2013 None Full Exam - General 1995 Ears/Nose/Throat oral cavity/pharynx/larynx Overall: oral mucosa clear 10/25/2013 None Full Exam - General 1995 Ears/Nose/Throat [...] 1994 Constitutional general appearance Overall: well nourished 08/24/2013 None Full Exam - General 1994 Constitutional general appearance Overall: well developed 08/24/2013 None Full Exam - General 1994 Constitutional general appearance Overall: in no acute distress 08/24/2013 None Full Exam - General 1994 Eyes pupils and irises Overall: pupils equal, round, reactive to light and accomodation 08/24/2013 None Full Exam - General 1994 Eyes conjunctiva/eyelids Overall: conjunctiva clear 08/24/2013 None Full Exam - General 1994 Eyes conjunctiva/eyelids Overall: eyelids normal 08/24/2013 None Full Exam - General 1994 Eyes conjunctiva/eyelids Overall: cornea clear 08/24/2013 None [...] developed 07/26/2013 None Full Exam - General 1994 Constitutional general appearance Overall: in no acute distress 07/26/2013 None Full Exam - General 1994 Constitutional general appearance Overall: well nourished 07/26/2013 None Full Exam - General 1994 Eyes conjunctiva/eyelids Overall: conjunctiva clear 07/26/2013 None Full Exam - General 1994 Eyes conjunctiva/eyelids Overall: cornea clear 07/26/2013 None Full Exam - General 1994 Eyes conjunctiva/eyelids Overall: eyelids normal 07/26/2013 None Full Exam - General 1994 Eyes [...] nourished 06/30/2013 None Full Exam - General 1994 Ears/Nose/Throat oral cavity/pharynx/larynx Overall: oral mucosa clear 06/30/2013 None Full Exam - General 1994 Ears/Nose/Throat oral cavity/pharynx/larynx Overall: oropharyngeal mucosa clear 06/30/2013 None Full Exam - General 1995 Ears/Nose/Throat oral cavity/pharynx/larynx Overall: no masses 06/30/2013 None Full Exam - General 1994 Respiratory auscultation Overall: breath sounds clear bilaterally 06/30/2013 None Full Exam - General 1994 Respiratory respiratory effort/rhythm Overall: no retractions 06/30/2013 None Full Exam - General 1994 Respiratory respiratory effort/rhythm Overall: normal rate 06/30/2013 None Full Exam - General 1994 Cardiovascular auscultation of heart Overall: regular rate 06/30/2013 None Full Exam - General 1995 Cardiovascular auscultation of heart Overall: normal heart [...] 1995 Ears/Nose/Throat oral cavity/pharynx/larynx Overall: no masses 06/24/2013 [...] sounds 06/24/2013 None Full Exam - General 1995 Psychiatric orientation/consciousness Overall: oriented to person, place and time 06/24/2013 None Full Exam - General 1995 Psychiatric mood and affect Overall: normal mood and affect 06/24/2013 None Full Exam - General 1995 Psychiatric mood and affect Mood: happy 06/24/2013 None Full Exam - General 1995 Cardiovascular extremities Overall: no clubbing 06/24/2013 None Full Exam - General 1994 Cardiovascular auscultation of heart Overall: no murmurs 12/01/2012 None Full Exam - General 1995 Abdomen abdominal exam Overall: no tenderness 12/01/2012 None Full Exam - General 1995 Abdomen abdominal exam Overall: normal bowel sounds 12/01/2012 None Full Exam - General 1995 Psychiatric orientation/consciousness Overall: oriented to person, place and time 12/01/2012 None Full Exam - General 1995 Psychiatric mood and affect Overall: normal mood and affect 12/01/2012 None Full Exam - General 1995 Psychiatric mood and affect Mood: happy 12/01/2012 [...] accomodation 12/01/2012 None Full Exam - General 1994 Ears/Nose/Throat oral cavity/pharynx/larynx Overall: oral mucosa clear 12/01/2012 None Full Exam - General 1994 Ears/Nose/Throat oral cavity/pharynx/larynx Overall: oropharyngeal mucosa clear 12/01/2012 None Full Exam - General 1994 Ears/Nose/Throat oral cavity/pharynx/larynx Overall: no masses 12/01/2012 [...] accomodation 2012 None Full Exam - General 1995 Ears/Nose/Throat oral cavity/pharynx/larynx Overall: oral mucosa clear 2012 None Full Exam - General 1995 Ears/Nose/Throat oral cavity/pharynx/larynx Overall: oropharyngeal mucosa clear 2012 None Full Exam - General 1995 Ears/Nose/Throat oral cavity/pharynx/larynx Overall: no masses 2012 [...] accomodation 08/04/2012 None Full Exam - General 1995 [...] 1995 Ears/Nose/Throat oral cavity/pharynx/larynx Overall: no masses 07/01/2012 [...] cerumen 05/20/2012 None Full Exam - General 1994 [...] 1994 Ears/Nose/Throat oral cavity/pharynx/larynx Overall: no masses 02/25/2012 [...] cerumen 02/19/2012 None Full Exam - General 1995 Ears/Nose/Throat otoscopic exam Tympanic membrane: a normal [...] clear 01/02/2012 None Full Exam - General 1995 Ears/Nose/Throat oral cavity/pharynx/larynx Overall: no masses 01/02/2012 [...] Formatting Model/CDA Sections, Assigned to/Jen Cota CPT-4: [id number] 07/28/2018 THER/PROPH/DIAG INJ SC/IM CPT-4: 72859 04/24/2018 TRIAMCINOLONE ACET I [place] NOS CPT-4: J3301 04/24/2018 PPPS, SUBSEQ VISIT CPT- 4: G0439 02/03/2018 TRIAMCINOLONE ACET I [place] NOS CPT-4: J3301 06/23/2017 TRIAMCINOLONE ACET I [place] NOS CPT-4: J3301 03/21/2017 PPPS, SUBSEQ VISIT CPT- 4: G0439 01/22/2017 ADMIN PNEUMOCOCCAL V ACCINE SNOMED CT: [id number] CPT-4: G0009 09/16/2016 Pneumococcal Polysac charide Vaccine, 23-Valent, Ad CPT-4: 61346 09/16/2016 THER/PROPH/DIAG INJ SC/IM CPT-4: 41727 04/04/2016 TRIAMCINOLONE ACET I [place] NOS CPT-4: J3301 04/04/2016 ADMIN INFLUENZA VIRU S VAC CPT-4: G0008 07/28/2015 FLU VACC 4 XIMENA 3 YRS PLUS IM Formatting Model/CDA Sections, Assigned to/Jen Cota SNOMED CT: [id number] CPT-4: [id number] 07/28/2015 TRIAMCINOLONE ACET I [place] NOS CPT-4: J3301 06/12/2015 TRIAMCINOLONE ACET I [place] NOS CPT-4: J3301 05/15/2015 ADMIN INFLUENZA VIRU S VAC CPT-4: G0008 07/19/2014 FLU VAC NO PRSV 4 VA L 3 YRS+ Assigned to/Jen Cota CPT-4: [id number] 07/19/2014 TRIAMCINOLONE ACET I [place] NOS CPT-4: J3301 02/02/2014 ROUTINE VENIPUNCTURE CPT-4: 32533 08/24/2013 ADMIN INFLUENZA VIRU S VAC CPT-4: [...] CPT-4: J3301 01/23/2012 THER/PROPH/DIAG INJ SC/IM CPT-4: 26084 01/23/2012 REMOVE IMPACTED EAR WAX UNI CPT-4: 90009 01/02/2012 ROUTINE VENIPUNCTURE CPT-4: 11583 12/20/2011 Vital Signs Date Vital 06/14/2019 Blood Pressure 1: 158/70 Code: 8480-6 BMI: 33.4 Code: 15387-2 Heart Rate 1: 68 bpm Height: 5' SpO2: 97% Weight: 174 lbs 05/11/2019 Blood Pressure 1: 142/78 Code: 8480-6 BMI: 33.4 Code: 74510-2 Heart Rate 1: 58 bpm Height: 5' SpO2: 97% Weight: 174 lbs 02/16/2019 Blood Pressure 1: 136/82 Code: 8480-6 BMI: 34.0 Code: 86067-9 Heart Rate 1: 88 bpm Height: 5' SpO2: 94% Weight: 177 lbs 01/21/2019 Blood Pressure 1: 144/70 Code: 8480-6 BMI: 34.0 Code: 64463-9 Heart Rate 1: 68 bpm Height: 5' SpO2: 97% Temperature: 36.5 (C ) / 97.7 (F) Weight: 177 lbs 10/14/2018 Blood Pressure 1: 150/72 Code: 8480-6 Heart Rate 1: 58 bpm Height: 5' SpO2: 98% Weight: 09/22/2018 Blood Pressure 1: 140/80 Code: 8480-6 BMI: 32.7 Code: 69028-2 Heart Rate 1: 55 bpm Height: 5' SpO2: 98% Weight: 170 lbs 08/17/2018 Blood Pressure 1: 140/76 Code: 8480-6 BMI: 33.0 Code: 08841-4 Heart Rate 1: 60 bpm Height: 5' SpO2: 99% Weight: 172 lbs 06/08/2018 Blood Pressure 1: 136/80 Code: 8480-6 BMI: 33.8 Code: 74849-8 Heart Rate 1: 65 bpm Height: 5' SpO2: 98% Weight: 176 lbs 05/04/2018 Blood Pressure 1: 134/80 Code: 8480-6 BMI: 35.9 Code: 94717-9 Heart Rate 1: 72 bpm Height: 5' SpO2: 94% Weight: 187 lbs 02/04/2018 Blood Pressure 1: 144/76 Code: 8480-6 BMI: 35.0 Code: 89546-6 Heart Rate 1: 64 bpm Height: 5' SpO2: 98% Weight: 182 lbs 02/03/2018 Blood Pressure 1: 136/62 Code: 8480-6 BMI: 35.0 Code: 07472-9 Heart Rate 1: 57 bpm Height: 5' SpO2: 98% Waist Measure (cm): 94 cm Weight: 182 lbs 09/17/2017 Blood Pressure 1: 150/82 Code: 8480-6 BMI: 33.6 Code: 10095-4 Heart Rate 1: 58 bpm Height: 5' SpO2: 98% Weight: 175 lbs 06/23/2017 Blood Pressure 1: 124/66 Code: 8480-6 Heart Rate 1: 65 bpm Height: 5' SpO2: 97% Weight: 05/13/2017 Blood Pressure 1: 128/80 Code: 8480-6 BMI: 32.8 Code: 31668-7 Heart Rate 1: 76 bpm Height: 5' SpO2: 95% Weight: 171 lbs 03/21/2017 Blood Pressure 1: 152/88 Code: 8480-6 Heart Rate 1: 70 bpm Height: SpO2: 98% Weight: 03/19/2017 Blood Pressure 1: 132/64 Code: 8480-6 BMI: 33.0 Code: 27879-0 Heart Rate 1: 64 bpm Height: 5' SpO2: 96% Weight: 172 lbs 01/22/2017 Blood Pressure 1: 120/68 Code: 8480-6 BMI: 33.4 Code: 63170-8 Heart Rate 1: 68 bpm Height: 5' SpO2: 96% Weight: 174 lbs 01/14/2017 Blood Pressure 1: 138/80 Code: 8480-6 BMI: 33.4 Code: 51930-0 Heart Rate 1: 69 bpm Height: 5' SpO2: 98% Weight: 174 lbs 09/23/2016 Blood Pressure 1: 138/70 Code: 8480-6 BMI: 33.6 Code: 09774-9 Heart Rate 1: 68 bpm Height: 5' SpO2: 98% Temperature: 36.4 (C ) / 97.5 (F) Weight: 175 lbs 09/16/2016 Blood Pressure 1: 124/74 Code: 8480-6 BMI: 33.6 Code: 31126-7 Heart Rate 1: 64 bpm Height: 5' SpO2: 97% Weight: 175 lbs 06/25/2016 Weigh t: 174 lbs 06/17/2016 Blood Pressure 1: 128/80 Code: 8480-6 BMI: 34.0 Code: 56744-6 Heart Rate 1: 76 bpm Height: 5' SpO2: 95% Weight: 177 lbs 04/03/2016 Blood Pressure 1: 138/72 Code: 8480-6 BMI: 34.2 Code: 65767-4 Heart Rate 1: 63 bpm Height: 5' SpO2: 96% Weight: 178 lbs 03/13/2016 Blood Pressure 1: 128/72 Code: 8480-6 BMI: 35.3 Code: 00662-3 Heart Rate 1: 71 bpm Height: 5' SpO2: 97% Weight: 184 lbs 01/30/2016 Blood Pressure 1: 134/72 Code: 8480-6 BMI: 35.2 Code: 36345-3 Heart Rate 1: 71 bpm Height: 5' SpO2: 96% Weight: 183 lbs 12/21/2015 Blood Pressure 1: 148/90 Code: 8480-6 BMI: 34.6 Code: 23310-4 Heart Rate 1: 89 bpm Height: 5' SpO2: 96% Weight: 180 lbs 10/09/2015 Blood Pressure 1: 124/76 Code: 8480-6 BMI: 34.6 Code: 49709-8 Heart Rate 1: 88 bpm Height: 5' SpO2: 96% Weight: 180 lbs 06/12/2015 Blood Pressure 1: 148/74 Code: 8480-6 BMI: 33.4 Code: 79564-4 Heart Rate 1: 70 bpm Height: 5' SpO2: 96% Weight: 174 lbs 06/05/2015 Blood Pressure 1: 142/82 Code: 8480-6 BMI: 33.2 Code: 19788-3 Heart Rate 1: 72 bpm Height: 5' Weight: 173 lbs 05/15/2015 Blood Pressure 1: 118/80 Code: 8480-6 BMI: 33.6 Code: 29761-6 Heart Rate 1: 82 bpm Height: 5' Weight: 175 lbs 02/06/2015 Blood Pressure 1: 122/76 Code: 8480-6 BMI: 34.6 Code: 64056-7 Heart Rate 1: 58 bpm Height: 5' Weight: 180 lbs 01/10/2015 Blood Pressure 1: 158/90 Code: 8480-6 Blood Pressure 2: 152/90 Code: 8480-6 BMI: 34.6 Code: 60201-4 Heart Rate 1: 68 bpm Height: 5' Weight: 180 lbs 07/19/2014 Blood Pressure 1: 142/78 Code: 8480-6 BMI: 33.6 Code: 72668-4 Heart Rate 1: 56 bpm Height: 5' Weight: 175 lbs 06/17/2014 Blood Pressure 1: 128/86 Code: 8480-6 Heart Rate 1: 66 bpm SpO2: 98% Weight: 172 lbs 04/19/2014 Blood Pressure 1: 152/82 Code: 8480-6 BMI: 32.5 Code: 03399-4 Heart Rate 1: 60 bpm Height: 5' Weight: 169 lbs 04/11/2014 Blood Pressure 1: 120/80 Code: 8480-6 BMI: 33.4 Code: 90885-7 Heart Rate 1: 64 bpm Height: 5' Weight: 174 lbs 03/10/2014 Blood Pressure 1: 136/64 Code: 8480-6 BMI: 32.7 Code: 58318-4 Heart Rate 1: 76 bpm Height: 5' Weight: 170 lbs 02/02/2014 Blood Pressure 1: 160/76 Code: 8480-6 BMI: 32.7 Code: 38469-5 Heart Rate 1: 64 bpm Height: 5' Weight: 170 lbs 10/25/2013 Blood Pressure 1: 164/82 Code: 8480-6 BMI: 31.9 Code: 13255-1 Heart Rate 1: 60 bpm Height: 5' Weight: 166 lbs 08/24/2013 Blood Pressure 1: 138/88 Code: 8480-6 Heart Rate 1: 80 bpm Weight: 07/26/2013 Blood Pressure 1: 154/70 Code: 8480-6 Heart Rate 1: 72 bpm Weight: 162 lbs 06/30/2013 Blood Pressure 1: 182/86 Code: 8480-6 Heart Rate 1: 80 bpm Weight: 06/24/2013 Blood Pressure 1: 148/68 Code: 8480-6 BMI: 31.3 Code: 04424-6 Heart Rate 1: 72 bpm Height: 5' [...] 1: 142/88 Code: 8480-6 BMI: 30.6 Code: 29165-4 Heart Rate 1: 64 bpm Height: 5' [...] 1: 180/96 Code: 8480-6 BMI: 30.5 Code: 09388-1 Heart Rate 1: 76 bpm Height: 5' Respiratory Rate: 16 bpm Weight: 159 lbs 02/19/2012 Blood Pressure 1: 150/70 Code: 8480-6 Blood Pressure 2: 160/78 Code: 8480-6 Heart Rate 1: 76 bpm Respiratory Rate: 16 bpm Weight: 158 lbs 01/23/2012 Blood Pressure 1: 140/84 Code: 8480-6 BMI: 30.3 Code: 68540-9 Heart Rate 1: 68 bpm Height: 5' Respiratory Rate: 16 bpm SpO2: 98% Temperature: 37.0 (C ) / 98.6 (F) Weight: 158 lbs 01/02/2012 Blood Pressure 1: 142/92 Code: 8480-6 BMI: 30.7 Code: 00580-4 Heart Rate 1: 72 bpm Height: 5' Respiratory Rate: 16 bpm Weight: 160 lbs 12/20/2011 Blood Pressure 1: 170/84 Code: 8480-6 BMI: 30.0 Code: 29272-1 Heart Rate 1: 70 bpm Height: 5' [...] Factors me dication 02/16/2019 None Pertinent Findings dileslie ziness 02/16/2019 'sometimes' Pertinent Findings Den ies [...] bring in readings 10/14/2018 None Pertinent Findings dileslie mainness 10/14/2018 "once in a while"- thinks [...] 06/12/2015 None rash Location-Head/Neck on the right church 06/12/2015 None rash Location-Head/Neck on the right [...] Findings Denies tachycardia 08/24/2013 None hypertension [facility] 07/26/2013 None hypertension Onset and Resolution [...] Factors position change 06/30/2013 None hypertension [facility] 06/30/2013 None hypertension Onset and Resolution [...] left leg 10/19/2012 states she fell dec 11 or 12th and rash started 2 days [...] Encounters Encounter Performer Loca tion Codes Date () 16435 EST. P ATIENT, LEVEL III Diagnosis: Essential (primary) hypertension[ICD10: I10] Diagnosis: Mixed hyperlipidemia[ICD10: E78.2] Zoya Varela MD, [facility] CPT- 4: 18469 06/14/2019 ([id number]) 18031 EST. P ATIENT, LEVEL III Diagnosis: Cough[ICD10: R05] Diagnosis: Acute bronchitis, unspecified[ICD10: J20.9] Kacy Varela MD, [facility] CPT-4: 94942 05/11/2019 ([id number] 36108 EST. P ATIENT, LEVEL III Diagnosis: Essential (primary) hypertension[ICD10: I10] Diagnosis: Recurrent oral aphthae[ICD10: K12.0] Zoya Varela MD, [facility] CPT-4: 16925 02/16/2019 [id number]) 28648 EST. P ATIENT, LEVEL III Diagnosis: Cough[ICD10: R05] Diagnosis: Acute upper respiratory infection, unspecified[ICD10: J06.9] Kacy Varela MD, [facility] CPT-4: 83959 01/21/2019 [id number]) 09694 EST. P ATIENT, LEVEL IV Diagnosis: Essential (primary) hypertension[ICD10: I10] Diagnosis: Mixed hyperlipidemia[ICD10: E78.2] Zoya Varela MD, [facility] CPT- 4: 83415 10/14/2018 ([id number]) 07560 EST. P ATIENT, LEVEL III Diagnosis: Essential (primary) hypertension[ICD10: I10] Diagnosis: Other specified cardiac arrhythmias[ICD10: I49.8] Zoya Varela MD, [facility] CPT-4: 82134 09/22/2018 [id number]) 86558 EST. P ATIENT, LEVEL IV Diagnosis: Essential (primary) hypertension[ICD10: I10] Diagnosis: Allergic rhinitis due to pollen[ICD10: J30.1] Diagnosis: Sciatica, right side[ICD10: M54.31] Zoya Varela MD, [facility] CPT- 4: 72137 08/17/2018 ([id number]) 22329 EST. 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 P ATIENT, LEVEL III Diagnosis: Acute upper respiratory infection, unspecified[ICD10: J06.9] Kacy Varela MD, [facility] CPT-4: 91541 05/04/2018 ([id number]) 58963 EST. P ATIENT, LEVEL IV Diagnosis: Essential (primary) hypertension[ICD10: I10] Diagnosis: Type 2 diabetes mellitus without complications[ICD10: E11.9] Diagnosis: Mixed hyperlipidemia[ICD10: E78.2] Diagnosis: Localized edema[ICD10: R60.0] Zoya Varela MD, [facility] CPT-4: 09023 02/04/2018 ([id number]) 38797 EST. P ATIENT, LEVEL IV Diagnosis: Essential (primary) hypertension[ICD10: I10] Zoya Varela MD, [facility] CPT-4: 40815 09/17/2017 ([id number]) 05336 EST. P ATIENT, LEVEL III Diagnosis: Allergic contact dermatitis due to plants, except food[ICD10: L23.7] Kacy Varela MD, [facility] CPT-4: 00515 06/23/2017 ([id number]) 70759 EST. P ATIENT, LEVEL IV Diagnosis: Essential (primary) hypertension[ICD10: I10] Diagnosis: Mixed hyperlipidemia[ICD10: E78.2] Zoya Varela MD, [facility] CPT- 4: 54121 05/13/2017 ([id number]) 12490 EST. P ATIENT, LEVEL III Diagnosis: Allergic contact dermatitis due to plants, except food[ICD10: L23.7] Kacy Varela MD, [facility] CPT-4: 35913 03/21/2017 55226 EST. PATIENT, LEVEL III Diagnosis: Bitten or stung by nonvenomous insect and other nonvenomous arthropods, initial encounter[ICD10: W57.XXXA] Diagnosis: Cellulitis of left lower limb[ICD10: L03.116] Laura Varela MD, [facility] CPT-4: 08121 03/19/2017 ([id number]) 25372 EST. P ATIENT, LEVEL IV Diagnosis: Type 2 diabetes mellitus without complications[ICD10: E11.9] Diagnosis: Essential (primary) hypertension[ICD10: I10] Diagnosis: Other specified epidermal thickening[ICD10: L85.8] Zoya Varela MD, [facility] CPT-4: 85480 01/14/2017 76303 EST. PATIENT, LEVEL III Diagnosis: Glossodynia[ICD10: K14.6] Kacy Varela MD, [facility] CPT- 4: 92483 09/23/2016 ([id number]) 16071 EST. P ATIENT, LEVEL IV Diagnosis: Encounter for screening mammogram for malignant neoplasm of breast[ICD10: Z12.31] Diagnosis: Encounter for immunization[ICD10: Z23] Zoya Varela MD, [facility] CPT-4: 87520 09/16/2016 ([id number]) 84606 EST. P ATIENT, LEVEL III Diagnosis: Diseases of lips[ICD10: K13.0] Diagnosis: Allergic rhinitis due to pollen[ICD10: J30.1] Kacy Varela MD, [facility] CPT-4: 26697 06/25/2016 ([id number]) 48731 EST. P ATIENT, LEVEL III Diagnosis: Essential (primary) hypertension[ICD10: I10] Kacy Varela MD, [facility] CPT-4: 12421 06/17/2016 34436 EST. PATIENT, LEVEL IV Diagnosis: Other acute sinusitis[ICD10: J01.80] Diagnosis: Acute laryngopharyngitis[ICD10: J06.0] Diagnosis: Other allergic rhinitis[ICD10: J30.89] Laura Varela MD, [facility] CPT-4: 38776 04/03/2016 ([id number]) 51689 EST. P ATIENT, LEVEL IV Diagnosis: Essential (primary) hypertension[ICD10: I10] Diagnosis: Localized edema[ICD10: R60.0] Diagnosis: Polyneuropathy, unspecified[ICD10: G62.9] Zoya Varela MD, [facility] CPT-4: 20349 03/13/2016 ([id number]) 40048 EST. P ATIENT, LEVEL IV Diagnosis: Essential (primary) hypertension[ICD10: I10] Diagnosis: Localized edema[ICD10: R60.0] Diagnosis: Type 2 diabetes mellitus without complications[ICD10: E11.9] Zoya Varela MD, [facility] CPT-4: 12531 01/30/2016 71907 EST. PATIENT, LEVEL IV Diagnosis: Localized edema[ICD10: R60.0] Laura Varela MD, [facility] CPT-4: 42101 12/21/2015 ([id number]) 49128 EST. P ATIENT, LEVEL III Diagnosis: Essential (primary) hypertension[ICD10: I10] Diagnosis: Allergic rhinitis due to pollen[ICD10: J30.1] Diagnosis: Cervicalgia[ICD10: M54.2] Kacy Varela MD, [facility] CPT- 4: 42107 10/09/2015 01963 EST. PATIENT, LEVEL II Diagnosis: Contact dermatitis[ICD9: 692.9] Kacy Varela MD, [facility] CPT- 4: 48546 06/12/2015 ([id number]) 36856 EST. P ATIENT, LEVEL III Diagnosis: ESSENTIAL HYPERTENSION[ICD9: 401.9] Diagnosis: DIABETES TYPE II[ICD9: 250.00] Diagnosis: Anxiety[ICD9: 300.00] Kacy Varela MD, [facility] CPT-4: 73485 06/05/2015 ([id number]) 20960 EST. P ATIENT, LEVEL IV Diagnosis: Anxiety[ICD9: 300.00] Diagnosis: ALLERGIC RHINITIS[ICD9: 477.9] Diagnosis: ESOPHAGEAL REFLUX[ICD9: 530.81] Kacy Varela MD, [facility] CPT- 4: 56581 05/15/2015 ([id number]) 55762 EST. P ATIENT, LEVEL III Diagnosis: ESSENTIAL HYPERTENSION[ICD9: 401.9] Zoya Varela MD, [facility] CPT- 4: 41102 02/06/2015 ([id number]) 82601 EST. P ATIENT, LEVEL IV Diagnosis: ESSENTIAL HYPERTENSION[ICD9: 401.9] Diagnosis: EDEMA[ICD9: 782.3] Diagnosis: DIABETES TYPE II[ICD9: 250.00] Zoya Varela MD, [facility] CPT-4: 59383 01/10/2015 ([id number]) 03787 EST. P ATIENT, LEVEL IV Diagnosis: ESSENTIAL HYPERTENSION[ICD9: 401.9] Diagnosis: DIABETES TYPE II[ICD9: 250.00] Zoya Varela MD, [facility] CPT-4: 25112 07/19/2014 ([id number]) 89579 EST. P ATIENT, LEVEL III Diagnosis: Left ankle pain[ICD9: 719.47] Kacy Varela MD, [facility] CPT- 4: 76648 06/17/2014 ([id number]) 25353 EST. P ATIENT, LEVEL III Diagnosis: ESSENTIAL HYPERTENSION[ICD9: 401.9] Diagnosis: Elevated blood sugar[ICD9: 790.29] Zoya Varela MD, [facility] CPT- 4: 57105 04/19/2014 ([id number]) 64435 EST. P ATIENT, LEVEL IV Diagnosis: ESSENTIAL HYPERTENSION[SNOMED: 77864814] Diagnosis: ESOPHAGEAL REFLUX[ICD9: 530.81] Zoya Varela MD, [facility] CPT-4: 92977 04/11/2014 ([id number]) 61916 EST. P ATIENT, LEVEL IV Diagnosis: ALLERGIC RHINITIS[ICD9: 477.9] Diagnosis: Anxiety[ICD9: 300.00] Diagnosis: Dyspnea[ICD9: 786.09] Diagnosis: ESOPHAGEAL REFLUX[ICD9: 530.81] Kacy Varela MD, [facility] CPT- 4: 31433 03/10/2014 ([id number]) 16887 EST. P ATIENT, LEVEL III Diagnosis: ALLERGIC RHINITIS[ICD9: 477.9] Diagnosis: ESSENTIAL HYPERTENSION[SNOMED: 22914384] Kacy Varela MD, [facility] CPT-4: 16555 02/02/2014 ([id number]) 39352 EST. P ATIENT, LEVEL III Diagnosis: ESSENTIAL HYPERTENSION[SNOMED: 07513670] Diagnosis: Skin irritation[ICD9: 709.9] Zoya Varela MD, [facility] CPT-4: 28594 10/25/2013 ([id number]) 22920 EST. P ATIENT, LEVEL III Diagnosis: HYPERLIPIDEMIA[ICD9: 272.4] Diagnosis: ESSENTIAL HYPERTENSION[SNOMED: 92194775] Diagnosis: EDEMA[ICD9: 782.3] Diagnosis: Encounter for long-term (current) use of other medications[ICD9: V58.69] Zoya Vaerla MD, [facility] CPT-4: 12977 08/24/2013 ([id number]) 42697 EST. P ATIENT, LEVEL III Diagnosis: ESSENTIAL HYPERTENSION[SNOMED: 95427921] Zoya Varela MD, C CPT-4: 72833 07/26/2013 ([id number]) 31207 EST. P ATIENT, LEVEL III Diagnosis: ESSENTIAL HYPERTENSION[SNOMED: 90328742] Zoya Varela MD, C CPT-4: 01534 06/30/2013 ([id number]) 12314 EST. P ATIENT, LEVEL III Diagnosis: ESSENTIAL HYPERTENSION[SNOMED: 28540932] Zoya Varela MD, C CPT-4: 84059 06/24/2013 ([id number]) 05589 EST. P ATIENT, LEVEL IV Diagnosis: ESSENTIAL HYPERTENSION[SNOMED: 70993891] Diagnosis: Leg pain[ICD9: 729.5] Diagnosis: Leg swelling[ICD9: 729.81] Zoya Varela MD, [facility] CPT-4: 32665 12/01/2012 ([id number]) 94225 EST. P ATIENT, LEVEL III Diagnosis: Shingles[ICD9: 053.9] Zoya Varela MD, [facility] CPT-4: 20711 10/19/2012 ([id number]) 38022 EST. P ATIENT, LEVEL IV Diagnosis: EDEMA[ICD9: 782.3] Diagnosis: ESSENTIAL HYPERTENSION[SNOMED: 64806510] Zoya Varela MD, C CPT-4: 85617 10/07/2012 ([id number]) 30479 EST. P ATIENT, LEVEL IV Diagnosis: ESSENTIAL HYPERTENSION[SNOMED: 24295176] Diagnosis: EDEMA[ICD9: 782.3] Diagnosis: Irritable bowel disease[ICD9: 564.1] Zoya Varela MD, [facility] CPT-4: 54296 2012 ([id number]) 00681 EST. P ATIENT, LEVEL III Diagnosis: ESSENTIAL HYPERTENSION[SNOMED: 84397484] Zoya Varela MD, C CPT-4: 59763 08/18/2012 ([id number]) 96210 EST. P ATIENT, LEVEL III Diagnosis: ESSENTIAL HYPERTENSION[SNOMED: 65552907] Zoya Varela MD, C CPT-4: 24477 08/04/2012 ([id number]) 11759 EST. P ATIENT, LEVEL IV Diagnosis: ESSENTIAL HYPERTENSION[SNOMED: 47385167] Diagnosis: Lumbago[ICD9: 724.2] Diagnosis: HYPERLIPIDEMIA[ICD9: 272.4] Zoya Varela MD, [facility] CPT-4: 49438 07/01/2012 ([id number]) 09731 EST. P ATIENT, LEVEL III Diagnosis: ESSENTIAL HYPERTENSION[SNOMED: 50799909] Zoya Varela MD, C CPT-4: 77632 05/20/2012 ([id number]) 06738 EST. P ATIENT, LEVEL IV Diagnosis: ESSENTIAL HYPERTENSION[SNOMED: 83431941] Diagnosis: Hot flash, menopausal[ICD9: 627.2] Zoya Varela MD, [facility] CPT- 4: 59823 04/20/2012 88334 EST. PATIENT, LEVEL IV Diagnosis: SPASM OF MUSCLE[ICD9: 728.85] Diagnosis: Back pain[ICD9: 724.5] Diagnosis: ESSENTIAL HYPERTENSION[SNOMED: 90428449] Zoya Varela MD, C CPT-4: 74101 03/10/2012 ([id number]) 25225 EST. 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 P ATIENT, LEVEL III Diagnosis: ESSENTIAL HYPERTENSION[SNOMED: 40420588] Zoya Varela MD, [facility] CPT-4: 28337 02/19/2012 17633 EST. PATIENT, LEVEL IV Diagnosis: ESSENTIAL HYPERTENSION[SNOMED: 84661376] Diagnosis: Cough[ICD9: 786.2] Kacygarth Varela MD, [facility] CPT-4: 17461 01/23/2012 ([id number]) 74905 EST. P ATIENT, LEVEL IV Diagnosis: HYPERLIPIDEMIA[ICD9: 272.4] Diagnosis: ESSENTIAL HYPERTENSION[SNOMED: 09881140] Zoya Varela MD, C CPT-4: 70816 01/02/2012 OFFICE VISIT, NEW - LEVEL 4 Diagnosis: ESSENTIAL HYPERTENSION[SNOMED: 37675071] Diagnosis: HYPERLIPIDEMIA[ICD9: 272.4] Diagnosis: IMPACTED CERUMEN[ICD9: 380.4] Diagnosis: Muscle spasm[ICD9: 728.85] Diagnosis: CHRONIC TENSION HEADACHE[ICD9: 339.12] Diagnosis: Neck pain, chronic[ICD9: 723.1] Diagnosis: Change in skin mole[ICD9: 216.9] Zoya Varela MD, [facility] CPT-4: 28832 12/20/2011 Plan of Care Planned Activity Notes [...] medications. 06/14/2019 Appointment: Zoya Varela WPtel: [phone] [facility] (15 min) Moderate 06/14/2019 Patient Education: Patient Medication Summary Completed 06/14/2019 Patient Education: Cholesterol Management Completed 06/14/2019 Visit Plan: Bronchitis - acute case of bronchitis identified. Pt has been given antibiotics, breathing treatments as appropriate, and pt has been instructed to call if symptoms are not improved, or if symptoms acutely worsen. 05/11/2019 Appointment: Kacy Moses WPtel: [phone] [phone] (15 min) Moderate 05/11/2019 Patient Education: Patient [...] cold sores. 02/16/2019 App[facility]ment[phone] ([facility] min) Moderate 02/16/2019 Patient Education: Patient [...] of plan. 01/21/2019 Appointment: Kacy Moses WPtel: [phone] [phone] (15 min) Moderate 01/21/2019 Patient Education: Patient Medication Summary Completed 01/21/2019 Appointment: Zoya Varela WPtel: Formerly named [facility]5 [facility] (15 min) Moderate 12/15/2018 Visit Plan: Hypertension - well con trinhed - continue with current medications, continue with [...] to medications. 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 09/22/2018 Appointment: Zoya Varela WPtel: [phone] [facility] (15 min) Moderate 09/22/2018 Patient Education: Patient Medication Summary Completed 09/22/2018 Appointment: [phone] [facility] (15 min) Moderate 09/09/2018 Visit Plan: Hypertension [...] she can be seen by Oncology in [place]. 06/08/2018 Appointment: [facility]el[phone] [facility] (15 min) Moderate 06/08/2018 Patient Education: Patient Medication Summary Completed 06/08/2018 Visit Plan: URI - Pt advised to inc rease fluids, vitamin C. Discussed natural and expected course of this diagnosis and need to alert me if symptoms do not follow expected course, or if any worse. RX sent to patient's pharmacy. 05/04/2018 Appointment: [facility]el[phone] [phone] [place] (30 min) Complex 05/04/2018 Patient Education: [...] lower extremities. 02/04/2018 Appointment: Zoya Varela WPtel: [phone] [place] [address] (15 min) Moderate 02/04/2018 Patient Education: Patient [...] Summary Completed 02/03/2018 Appointment: Laura Velasco [facility]Ptel[facility] [phone] [facility] [facility] - Annual Wellness Visit 01/28/2018 Appointment: Zoya Varela WPtel: Formerly named [facility]5 [facility] (15 min) Moderate 01/15/2018 Visit Plan: Hypertension [...] Dr. [place]. 09/17/2017 Appointment: Zoya Varela WPtel: Formerly named [facility]5 [facility] (15 min) Moderate 09/17/2017 Patient Education: Patient Medication Summary Completed 09/17/2017 Patient Education: Obesity Completed 09/17/2017 Patient Education: Hypertension Completed 09/17/2017 [facility] Pending 09/17/2017 Visit Plan: Poison Sarah -kenalog inj ection today in the office-start prednisone tomorrow pt is to use topical treatments as directed. Pt is cleanse clothing in hot water with soap, and call if symptoms do not improve or if they worsen. 06/23/2017 Appointment: Kacy Moses WPtel: [phone] [phone] (15 min) Moderate 06/23/2017 Patient Education: Patient [...] to medications. 05/13/2017 Appointment: Zoya Varela WPtel: [phone] [facility] (15 min) Moderate 05/13/2017 Patient Education: Patient [...] they worsen. 03/21/2017 Appointment: Kacy Moses WPtel: [phone] [phone] (15 min) Moderate 03/21/2017 Patient Education: Patient [...] in pain. 03/19/2017 Appointment: Laura Velasco WPtel[facility] [phone] [facility] (15 min) Moderate 03/19/2017 Patient Education: Patient [...] hearing. 01/22/2017 Appointment: Laura Velasco WPtel: [phone] [facility] [facility] - Annual Wellness Visit 01/22/2017 Appointment: Nurse Visit 01/22/2017 Patient Education: Patient Medication Summary Completed 01/22/2017 Visit Plan: Diabetes Mellitus - con itzel - per recent FSBS reports. I have [...] at home. 01/14/2017 Appointment: Zoya Varela WPtel: Formerly named [facility] (15 min) Moderate 01/14/2017 Patient Education: Patient Medication Summary Completed 01/14/2017 Patient Education: Obesity Completed 01/14/2017 Patient Education: Hypertension Completed 01/14/2017 Visit Plan: Dry mouth-oral pain-dis cussed with Dr Varela- recommend patient start biotene mouth rinses to increase moisture-ok to decrease lyrica to see if symptoms improve-follow up in 2-3 weeks, sooner if needed. Patient verbalized understanding of plan. 09/23/2016 Appointment: aKcy Moses WPtel: Formerly named [phone] (15 min) Moderate 09/23/2016 Patient Education: Patient [...] to medications. 09/16/2016 Appointment: Zoya Varela WPtel: Former[facility] named [facility] (15 min) Moderate 09/16/2016 Patient Education: Patient Medication Summary Completed 09/16/2016 Patient Education: Obesity Completed 09/16/2016 Care Plan: SCREENINGMAMMOGRAPHYDIGITAL LOINC : 93798-6 Pending 09/16/2016 Visit Plan: Cracked/painful lips-ba cterial [...] any worse. 06/25/2016 Appointment: Kacy Moses WPtel: Former[facility] named [phone] (15 min) Moderate 06/25/2016 Patient Education: Patient [...] allergy spray. 04/03/2016 Appointment: Kacy Moses WPtel: [address] [place], [place] [id number] (30 min) [facility] 04/03/2016 Patient Education: Patient Medication Summary Completed 04/03/2016 Patient Education: Obesity Completed 04/03/2016 Visit Plan: Hypertension - well con trolled [...] Hypertension Completed 03/13/2016 Appointment: Zoya Varela WPtel: [phone] [facility] (15 min) Moderate 02/28/2016 Appointment: Zoya Varela WPtel: [phone] [facility] (15 min) Moderate 02/01/2016 Visit Plan: Hypertension [...] for treatment. 01/30/2016 Appointment: [facility]el[facility] [phone] [facility] (15 min) Moderate 01/30/2016 Patient Education: Patient Medication Summary Completed 01/30/2016 Patient Education: Obesity Completed 01/30/2016 Patient Education: Hypertension Completed 01/30/2016 Care Plan: BMI Above normal followup TAD F-MGMT EDUC & TRAIN 1 PT Ordered [...] at home. 02/06/2015 Appointment: Zoya Varela WPtel: Formerly named [facility] Follow up 02/06/2015 Patient Education: Patient Medication [...] peripheral edema. 01/10/2015 Appointment: [facility]arela [facility]Ptel[facility] [phone] [facility] [facility] 01/10/2015 Patient Education: Patient Medication Summary Completed 01/10/2015 Patient Education: Hypertension Completed 01/10/2015 Visit Plan: Hypertension - litzy robbins - continue with current medications, continue with [...] 07/19/2014 Appointment: Z[facility]arela [facility]Ptel[phone] [facility] Follow up 07/19/2014 Patient Education: Patient Medication Summary Completed 07/19/2014 Patient Education: Hypertension Completed 07/19/2014 Care Plan: SCREENINGMAMMOGRAPHYDIGITAL LOINC : 28657-9 Ordered 07/19/2014 Visit Plan: Left ankle pain-sprain- [...] at home. 04/19/2014 Appointment: Kacy Moses WPtel[facility] [phone] [facility] Diabetic education 04/19/2014 Patient Education: Patient Medication [...] to medications. 04/11/2014 Appointment: Z[facility] Varela WPtel[facility] [phone] [facility] Follow up 04/11/2014 Patient Education: Patient Medication [...] spray in the nasal steroid allergy spray. Mersjes-ngnwwhptsvml-tcrxrzs xanax at bedtime Esophageal Reflux - the patient has been counseled against excessive intake of caffiene, spicy foods, peppermint, and cinnamon - all of which can exacerbate esophageal reflux. The patient is to take medications as prescribed and call the office if the symptoms are not improving. 03/10/2014 Appointment: Z[facility] Varela WPtel[phone] [facility] [facility] 03/10/2014 Patient Education: Patient Medication Summary Completed [...] allergy spray. 02/02/2014 Appointment: Kacy Moses WPtel: [phone] [facility] [place] Other 02/02/2014 Patient Education: Patient Medication Summary [...] the site. 10/25/2013 Appointment: Zoya Varela WPtel: [phone] [facility] Follow up 10/25/2013 Patient Education: Patient Medication [...] AT BEDTIME 08/24/2013 Appointment: Zoya Varela WPtel: [phone] [facility] Follow up 08/24/2013 Patient Education: Patient Medication [...] concerns. 07/26/2013 Appointment: Zoya Varela WPtel: [phone] [facility] Follow up 07/26/2013 Patient Education: Patient Medication [...] NOT IMPROVE. 06/30/2013 Appointment: [facility]arela [facility]Ptel[phone] [facility] 06/30/2013 Patient Education: Patient Medication Summary Completed [...] acute concerns. 06/24/2013 Appointment: Kacy Moses WPtel: Formerly named [facility]5 [facility] Follow up 06/24/2013 Patient Education: Patient Medication Summary Completed 06/24/2013 Patient Education: Hypertension Completed 06/24/2013 Appointment: Zoya Varela WPtel: [address] [place], [place] [id number] Other 03/23/2013 Visit Plan: Hypotension - pt is on chronic antihypertensive medication - the medication has been adjusted down to attempt to alleviate the low blood pressures. Leg pain - Leg swelling - pt to have ultrasound on her right lower leg due to post-operative swelling and pain. 12/01/2012 Appointment: Zoya Varela WPtel: [address] [place], [place] [id number] Follow up 12/01/2012 Patient Education: Patient Medication Summary Completed 12/01/2012 Patient Education: Hypertension Completed 12/01/2012 Appointment: Zoya Varela WPtel: [address] [place], [place] [phone] Follow up 10/20/2012 Visit Plan: Shingles - [...] considered contagious. 10/19/2012 Appointment: Zoya Varela WPtel: Formerly named [facility] Other 10/19/2012 Patient Education: Patient Medication Summary [...] peripheral edema. 10/07/2012 Appointment: Kacy Moses WPtel: [phone] [facility] [place] [address] Other 10/07/2012 Patient Education: Hypertension Completed 10/07/2012 Patient Education: Patient Medication Summary Completed 10/07/2012 Visit Plan: Hypertension - well con trorikkied - continue with current medications, continue with [...] peripheral edema. 2012 Appointment: Z[facility]arela WPtel: [phone] Other 2012 Patient Education: Patient Medication Summary [...] THE EVENING. 08/18/2012 Appointment: Zoya Varela WPtel: [phone] [facility] Follow up 08/18/2012 Patient Education: Patient Medication [...] the knees. 08/04/2012 Appointment: Zoya Varela WPtel: [phone] [facility] Follow up 08/04/2012 Patient Education: Patient Medication [...] twice daily. 07/01/2012 Appointment: Z[facility] Varela WPtel: [phone] Other 07/01/2012 Patient Education: Patient Medication Summary [...] two weeks 05/20/2012 Appointment: Zoya Varela WPtel: [phone] [facility] Follow up 05/20/2012 Patient Education: Patient Medication Summary Completed 05/20/2012 Patient Education: High Blood Pressure: Essential Hypertension Completed 05/20/2012 Appointment: Zoya Varela WPtel: [phone] [facility] [place] Other 05/11/2012 Visit Plan: Hypertension - uncontro [...] bid dosing. 04/20/2012 Appointment: Zoya Varela WPtel: [phone] [facility] Follow up 04/20/2012 Patient Education: Patient Medication [...] few weeks. 03/10/2012 Appointment: Zoya Varela WPtel: Formerly named [facility]6 [facility] Other 03/10/2012 Patient Education: Patient Medication Summary [...] with codeine. 02/25/2012 Appointment: Zoya Varela WPtel: [address] [place], [place] [id number] Other 02/25/2012 Patient Education: Patient Medication Summary [...] office. 02/19/2012 Appointment: Zoya Varela WPtel: [phone] [facility] Other 02/19/2012 Patient Education: Patient Medication Summary [...] office 01/23/2012 Appointment: Kacy Moses WPtel: [phone] [facility] Other 01/23/2012 Patient Education: Patient Medication Summary [...] TWICE DAILY. 01/02/2012 Appointment: Zoya Varela WPtel: [phone] [facility] [facility] 01/02/2012 Patient Education: Patient Medication Summary Completed [...] 2 wks. 12/20/2011 Appointment: Zoya Varela WPtel: [phone] [facility] New Patient 12/20/2011 Patient Education: Patient Medication Summary Completed 12/20/2011 Patient Education: High Blood Pressure: Essential Hypertension Completed 12/20/2011 Instructions Comment compression socks - look at [facility] - [...] - recommended compression socks to lower extremities. 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 . Hypertension - wel l controlled - [...] to call if symptoms are not improving. use the voltaren gel on your right [...] any worse. RX sent to patient's pharmacy. BENICAR 20MG DAILY SAMPLES GIVEN. Hypertension - [...] is to call for acute concerns. . Hypertension - wel l controlled - [...] change in current medications. . Hypertension - unc ontrolled - [...] 1/2 pill of DOXAZOSIN IN THE EVENING. PT TO CUT AMLODIPINE TO 1/2 OF [...] - continue with treatments per Dr. Madison. bactroban ointment t o right leg kenalog injection today-start prednisone tomorrow . Poison Sarah -kenalog injection today in the office-start prednisone tomorrow pt is to use topical treatments as directed. Pt is cleanse clothing in hot water with soap, and call if symptoms do not improve or if they worsen. zyrtec daily coricidin hpb . URI - Pt advised to increase fluids, vitamin C. Discussed natural and expected course of this diagnosis and need to alert me if symptoms do not follow expected course, or if any worse and i will send in an antibiotic. Patient verbalized understanding of plan. . Hypertension - unc ontrolled - the [...] further attempt to reduce peripheral edema. . Left ankle pain-sp rain-recommend rest ice and anti inflammatories as directed-also plan for xray left ankle . Blood pressure hav ing a lot of inconsistent readings.. I have instructed Natali to take her medications as follows: Toprol xl 2 pills in the morning Lotrel - 1 pill at noon Toprol xl 1 pill at bedtime Bring by blood pressure and heart rate readings in two weeks DEXILANT 60MG DAILY- TAKE SAMPLES UNTIL GONE [...] office if the symptoms are not improving. START ACYCLOVIR TODA Y AND START THE [...] as discussed. Patient verbalized understanding of plan. . Edema - pt has bee n advised to elevate legs to prevent dependent edema, compression has been recommended to help to naturally decrease peripheral edema. Diuretic use has been discussed and pt has been instructed in appropriate use of such medication as necessary to further attempt to reduce peripheral edema. No added salt, heart healthy diet recommended. . Hypertension - wel l controlled - [...] neck pain-muscle spasms-refill flexeril for prn use INCREASE YOUR METOPR OLOL TARTATE 100MG TO [...] is to call for acute concerns. . Low back pain- the patient was [...] blood pressure readings in a few weeks. Restart acyclovir to prevent the cold sores [...] to assure normal liver response to medications. CLARITIN 10MG DAILY PEPCID 20MG TWICE DAILY BENADRYL DIRECTED START PREDNISONE TOMORROW . Poison Sarah -kenalog injection today in the office-start prednisone tomorrow pt is to use topical treatments as directed. Pt is cleanse clothing in hot water with soap, and call if symptoms do not improve or if they worsen. Biotene OTC Decrease dose of Lyrica to 25 mg BID . Dry mouth-oral pain-discussed with Dr Varela-recommend patient start biotene mouth rinses to increase moisture-ok to decrease lyrica to see if symptoms improve-follow up in 2-3 weeks, sooner if needed. Patient verbalized understanding of plan. . Hypertension - wel l controlled - continue with current medications, continue with no added salt diet. Pt has been encouraged to exercise daily. The pt has been advised to call the office if there are any acute concerns about change in blood pressure readings at home. THE PATIENT IS TO CH JUSTINE HER [...] be able to remove in 2 wks. . Elevated blood sug ars-diabetes and diet [...] change in blood pressure readings at home. Thigh high compressi on hose-on in the [...] worse. RX sent to patient's pharmacy. . Shingles - Herpes Zoster - acute [...] the pt is to be considered contagious. . Hypertension - unc ontrolled - the [...] carry through with his plans for treatment. . If the clonidine p [facility] has the blood pressures at or below 120/80, then the pt is to stop her norvasc and call the clinic, pt is to rtc in 2 weeks. Apply the pennsaid 15 drops to each knee three times daily, rub in the pennsaid to hands after each application on the knees. ANDERS DE LUNA . Bronchitis - acute case of bronchitis identified. Pt has been given antibiotics, breathing treatments as appropriate, and pt has been instructed to call if symptoms are not improved, or if symptoms acutely worsen. . Hypertension - unc ontrolled - the medicaitons were not changed [...] 1 week, then increase to twice daily. no change in your me dications at [...] - can use PRN for cold sores. . Sinusitis - Pt has acute infection [...] or if any worse. . 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 . Hypertension - wel l controlled - [...] she can be seen by Oncology in [place]. . Tick - tick with h ead removed - will start abx - The patient was instructed in appropriate wound care. The patient was instructed to use the antibiotic ointment as per RX. The patient is to call for any change in symptoms, increase in size of the lesion, increase in pain. RESTART XANAX 1/2 TA B AT BEDTIME START NASONEX 1 SPRAY EACH [...] spray in the nasal steroid allergy spray. Zuugddc-iikiiomnqqzw-gxpssul xanax at bedtime Esophageal Reflux - the patient has been counseled against excessive intake of caffiene, spicy foods, peppermint, and cinnamon - all of which can exacerbate esophageal reflux. The patient is to take medications as prescribed and call the office if the symptoms are not improving. . Diabetes Mellitus - controlled - per [...] change in blood pressure readings at home. take the carafate as a liquid - [...]
[2020-05-26] MEDS ORDERED: GABA-486 (02:35)
[2020-05-26] MEDS ORDERED: OXYB10TA29 (02:35)
--- OUTSIDE RECORDS SUMMARY | 2020-05-26 02:37 | XMS REPORT | CCD ---
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 Name Role Phone PP Unavailable CCM Unavailable Summary Purpose Interface Exchange Insurance Providers Payer name Policy type / Coverage type Covered libertarian ID Effective Begin Date Effective End Date WPS Medicare Part B Medicare Part B [id number] Unknown [employer]URANCE [place] Part B [id number] Unknown Family history Mother Diagnosis Age At Onset Liver Failure Unknown Diabetes mellitus Type 2 Unknown Hyperlipidemia Unknown Hypertension Unknown Cancer Unknown Arthritis Unknown Father Diagnosis Age At Onset Liver Failure Unknown Cancer Unknown Social History Social History Element Codes Description Effective Dates Marital status Unknown M arried 12/12/2011 Number of children Unknown 3 12/12/[address]: 8362052 Former smoker quit in 199212/12/2011 Allergies, Adverse [...] Date Stop Date Sta tus Fill Instructions metoprolol tartrate 100 mg tablet RxNorm: 788321 1/2 Tablet(s) BID 06/14/2019 12/02/2021 Active this is an update to her RX - she does n ot need it filled right now Zithromax Z-Kush 250 mg tablet RxNorm: 166044 1 Tablet(s) PO UD 05/11/2019 05/15/2019 Inactive Kenalog 40 mg/mL sylvia pension for injection RxNorm: 1248946 1 Milliliter(s) Inj 05/11/2019 05/11/2019 In active tramadol 50 mg tablet RxNorm: 879131 1-2 Tablet(s) PO Q8 as needed 05/04/2019 07/02/2019 Ac tive prednisone 10 mg tab lets in a dose pack RxNorm: 332264 1 Tablet(s) PO UD 04/12/2019 04/17/2019 In active 6-5-4-3-2-1 amlodipine 5 mg tablet RxNorm: 467629 TAKE ONE TABLET BY MOUTH DAILY 03/26/2019 12/20/2019 Ac tive atorvastatin 20 mg t ablet RxNorm: 292797 TAKE ONE TABLET BY MO UTH DAILY 03/26/2019 09/21/2019 Ac tive doxazosin 4 mg tablet RxNorm: 341839 1 Tablet(s) UD 1.5 tab in AM and 1 tab a t hs 02/16/2019 09/13/2019 Ac tive metoprolol tartrate 100 mg tablet RxNorm: 466394 1.5 Tablet(s) BID 02/16/2019 06/13/2019 Inactive acyclovir 800 mg tablet RxNorm: 207362 1 Tablet(s) PO TID take for cold sore ou tbreaks 02/16/2019 04/26/2019 Inactive Xanax 0.25 mg tablet RxNorm: 355796 1/2-1 Tablet(s) PO QDAY PRN 02/03/2019 05/03/2019 Inactive cyclobenzaprine 10 m g tablet RxNorm: 917898 TAKE ONE TABLET BY [facility] EVERY 8 HOURS NEEDED 01/27/2019 03/07/2019 Inactive doxazosin 4 mg tablet RxNorm: 355833 Tablet(s) TAKE ONE TABLET BY MOUTH TWO T IMES A DAY 01/21/2019 02/15/2019 Inactive doxazosin 4 mg tablet RxNorm: 609930 Tablet(s) TAKE ONE AND ONE-HALF (1 & 1/2 ) TABLET BY MOUTH BY MOUTH TWO TIMES A DAY 11/12/2018 01/20/2019 Inactive cyclobenzaprine 10 m g tablet RxNorm: 285808 TAKE ONE TABLET BY [facility] EVERY 8 HOURS NEEDED 11/12/2018 12/01/2018 Inactive tramadol 50 mg tablet RxNorm: 689132 1-2 Tablet(s) PO Q8 as needed 10/02/2018 05/10/2019 In active metoprolol tartrate 100 mg tablet RxNorm: 625986 1 Tablet(s) BID 09/22/2018 02/15/2019 Inactive metoprolol tartrate 100 mg tablet RxNorm: 523685 TAKE ONE AND ONE-HALF (1 1/2) TABLETS BY MOUTH EVERY MORNING AND TAKE TWO TABLETS BY MOUTH EVERY EVENING 09/21/2018 09/21/2018 In active Xanax 0.25 mg tablet RxNorm: 879402 1/2-1 Tablet(s) PO QDAY PRN 08/19/2018 05/03/2019 Inactive cyclobenzaprine 10 m g tablet RxNorm: 242361 TAKE ONE TABLET BY [facility] EVERY 8 HOURS NEEDED 07/01/2018 08/09/2018 Inactive atorvastatin 20 mg t ablet RxNorm: 754575 TAKE ONE TABLET BY [facility] DAILY 06/29/2018 12/25/2018 In active atorvastatin 20 mg t ablet RxNorm: 241726 TAKE ONE TABLET BY [facility] DAILY 06/29/2018 06/28/2018 In active pilocarpine 5 mg tablet RxNorm: 0958865 1 Tablet(s) PO BID 06/09/2018 06/08/2018 Inactive pilocarpine 5 mg tablet RxNorm: 0859201 1 Tablet(s) PO BID for dry mouth 06/09/2018 09/21/2018 In active Evoxac 30 mg capsule RxNorm: 432312 1 Capsule(s) PO BID as needed dry mouth 06/08/2018 06/08/2018 In active may substitute generic cyclobenzaprine 10 m g tablet RxNorm: 751076 TAKE ONE TABLET BY [facility] EVERY 8 HOURS NEEDED 05/14/2018 06/30/2018 Inactive amoxicillin 500 mg c apsule RxNorm: 693300 1 Capsule(s) PO BID 05/04/2018 05/13/2018 Inactive amoxicillin 500 mg c apsule RxNorm: 472644 1 Capsule(s) PO BID 05/04/2018 05/03/2018 Inactive tramadol 50 mg tablet RxNorm: 378425 1-2 Tablet(s) PO Q8 as needed 04/24/2018 06/21/2018 In active Kenalog 40 mg/mL sylvia pension for injection RxNorm: 0876465 Milliliter(s) Inj 04/24/2018 04/24/2018 In active amlodipine 5 mg tablet RxNorm: 852227 Tablet(s) TAKE ONE TABLET BY MOUTH DAILY 04/02/2018 03/25/2019 In active Xanax 0.25 mg tablet RxNorm: 898977 1/2-1 Tablet(s) PO QDAY PRN 04/02/2018 10/13/2018 Inactive metoprolol tartrate 100 mg tablet RxNorm: 251287 TAKE ONE AND ONE-HALF (1 1/2) TABLETS BY MOUTH EVERY MORNING AND TAKE TWO TABLETS BY MOUTH EVERY EVENING 02/25/2018 09/20/2018 In active Keflex 500 mg capsule RxNorm: 634152 1 Capsule(s) PO TID 02/06/2018 02/15/2018 Inactive Keflex 500 mg capsule RxNorm: 619678 1 Capsule(s) PO TID 02/06/2018 02/05/2018 Inactive Zithromax Z-Kush 250 mg tablet RxNorm: 303016 1 Tablet(s) PO UD 02/02/2018 02/06/2018 Inactive 2 tabs on day 1 then 1 tab daily on days 2-5 doxazosin 4 mg tablet RxNorm: 237241 TAKE ONE AND ONE-HALF (1 & 1/2) TABLET B Y MOUTH BY MOUTH TWO TIMES A DAY 01/16/2018 11/11/2018 Inactive atorvastatin 20 mg t ablet RxNorm: 057970 TAKE ONE TABLET BY MO UTH DAILY 12/31/2017 06/28/2018 In active furosemide 20 mg tablet RxNorm: 136186 TAKE ONE TABLET BY MOUTH DAILY NEEDED FOR EDEMA 12/26/2017 06/23/2018 Inactive potassium chloride E R 10 mEq tablet,extended release RxNorm: 284766 TAKE ONE TABLET BY MOUTH NEEDED WITH LASIX 12/26/2017 06/23/2018 Inactive Xanax 0.25 mg tablet RxNorm: 564042 1/2-1 Tablet(s) PO QDAY PRN 11/27/2017 08/18/2018 Inactive cyclobenzaprine 10 m g tablet RxNorm: 147291 TAKE ONE TABLET BY MO UT EVERY 8 HOURS NEEDED 11/21/2017 02/08/2018 Inactive metoprolol tartrate 100 mg tablet RxNorm: 277498 TAKE ONE AND ONE-HALF (1 1/2) TABLETS BY MOUTH EVERY MORNING AND TAKE TWO TABLETS BY MOUTH EVERY EVENING 10/28/2017 02/24/2018 In active tramadol 50 mg tablet RxNorm: 427537 1-2 Tablet(s) PO Q8 as needed 10/28/2017 05/03/2019 In active cyclobenzaprine 10 m g tablet RxNorm: 206768 TAKE ONE TABLET BY MO UT EVERY 8 HOURS NEEDED 08/27/2017 10/25/2017 Inactive Xanax 0.25 mg tablet RxNorm: 969573 1/2-1 Tablet(s) PO QDAY PRN 08/04/2017 04/01/2018 Inactive cyclobenzaprine 10 m g tablet RxNorm: 981419 TAKE ONE TABLET BY MO UTH EVERY 8 HOURS NEEDED 07/28/2017 08/16/2017 Inactive metoprolol tartrate 100 mg tablet RxNorm: 969362 TAKE ONE AND ONE-HALF (1 & 1/2) TABLET BY MOUTH EVERY MORNING AND TAKE TWO TABLETS BY MOUTH EVERY EVENING 07/28/2017 10/25/2017 In active cyclobenzaprine 10 m g tablet RxNorm: 613123 TAKE ONE TABLET BY MO UTH EVERY 8 HOURS NEEDED 06/30/2017 07/19/2017 Inactive prednisone 10 mg tab lets in a dose pack RxNorm: 822608 1 Tablet(s) PO UD 06/23/2017 06/28/2017 In active 6-5-4-3-2-1 mupirocin 2 % topica l ointment RxNorm: 743156 1 Application TOP BID 06/23/2017 07/02/2017 Inactive Kenalog 40 mg/mL sylvia pension for injection RxNorm: 8725289 Milliliter(s) Inj 06/23/2017 06/23/2017 In active cyclobenzaprine 10 m g tablet RxNorm: 850282 TAKE ONE TABLET BY MO UTH EVERY 8 HOURS NEEDED 06/09/2017 06/28/2017 Inactive meclizine 25 mg tablet RxNorm: 519383 1 Tablet(s) PO Q6 PRN as needed 1/2 - 1 pill every 6 hours as needed for vertigo 06/03/2017 07/14/2017 Inactive atorvastatin 20 mg t ablet RxNorm: 028335 TAKE ONE TABLET BY MO UTH DAILY 05/30/2017 11/25/2017 In active amlodipine 5 mg tablet RxNorm: 713251 TAKE ONE TABLET BY MOUTH DAILY 05/15/2017 04/01/2018 In active cyclobenzaprine 10 m g tablet RxNorm: 883178 TAKE ONE TABLET BY MO UTH EVERY 8 HOURS NEEDED 05/07/2017 05/26/2017 Inactive tramadol 50 mg tablet RxNorm: 332341 1-2 Tablet(s) PO Q8 as needed 04/07/2017 05/03/2019 In active cyclobenzaprine 10 m g tablet RxNorm: 062694 TAKE ONE TABLET BY MO UTH EVERY 8 HOURS NEEDED 04/07/2017 04/26/2017 Inactive Xanax 0.25 mg tablet RxNorm: 812489 1/2-1 Tablet(s) PO QDAY PRN 04/04/2017 06/02/2017 Inactive metoprolol tartrate 100 mg tablet RxNorm: 678164 TAKE ONE AND ONE-HALF (1 & 1/2) TABLET BY MOUTH EVERY MORNING AND TAKE TWO TABLETS BY MOUTH EVERY EVENING 03/28/2017 07/25/2017 In active prednisone 10 mg tab lets in a dose pack RxNorm: 192886 1 Tablet(s) PO UD 03/21/2017 03/26/2017 In active 6-5-4-3-2-1 Kenalog 40 mg/mL sylvia pension for injection RxNorm: 2752614 2 Milliliter(s) Inj 03/21/2017 03/21/2017 In active doxycycline hyclate 100 mg capsule RxNorm: 6270900 1 Capsule(s) PO BID 03/19/2017 03/28/2017 In active cyclobenzaprine 10 m g tablet RxNorm: 372790 TAKE ONE TABLET BY MO UTH EVERY 8 HOURS NEEDED 02/25/2017 03/16/2017 Inactive triamcinolone aceton pineda 0.1 % topical ointment RxNorm: 7286559 1 Application TOP TI D 02/21/2017 02/20/2017 Inactive triamcinolone aceton pineda 0.1 % topical ointment RxNorm: 4784577 1 Application TOP TI D 02/21/2017 03/02/2017 Inactive doxazosin 4 mg tablet RxNorm: 899469 TAKE ONE AND ONE-HALF (1 & 1/2) TABLET B Y MOUTH BY MOUTH TWO TIMES A DAY 02/14/2017 01/09/2018 Inactive cyclobenzaprine 10 m g tablet RxNorm: 713774 TAKE ONE TABLET BY MO UTH EVERY 8 HOURS NEEDED 01/27/2017 02/15/2017 Inactive ammonium lactate 12 % topical cream RxNorm: 892081 1 Application TOP BID 01/14/2017 02/12/2017 In active dispense one bottle of the cream potassium chloride E R 10 mEq tablet,extended release RxNorm: 112154 1 Tablet(s) PO PRN as needed with lasix 11/13/2016 12/25/2017 Inactive prn swelling furosemide 20 mg tablet RxNorm: 146024 1 Tablet(s) PO daily as needed edema 11/13/2016 01/11/2017 In active metoprolol tartrate 100 mg tablet RxNorm: 773886 TAKE ONE AND ONE-HALF (1 & 1/2) TABLET BY MOUTH EVERY MORNING AND TAKE TWO TABLETS BY MOUTH EVERY EVENING 11/01/2016 03/27/2017 In active atorvastatin 20 mg t ablet RxNorm: 906670 TAKE ONE TABLET BY MO UTH DAILY 10/31/2016 04/28/2017 In active cyclobenzaprine 10 m g tablet RxNorm: 381803 TAKE ONE TABLET BY MO UTH EVERY 8 HOURS NEEDED 10/25/2016 12/03/2016 Inactive Lyrica 25 mg capsule RxNorm: 653480 1 Tablet(s) PO BID 09/23/2016 01/13/2017 Inactive Lyrica 50 mg capsule RxNorm: 989996 1 Capsule(s) PO BID 09/16/2016 01/13/2017 Inactive amlodipine 5 mg tablet RxNorm: 609849 Tablet(s) TAKE ONE TABLET BY MOUTH DAILY 08/28/2016 05/14/2017 In active cyclobenzaprine 10 m g tablet RxNorm: 982231 TAKE ONE TABLET BY [facility] EVERY 8 HOURS NEEDED 08/05/2016 09/13/2016 Inactive Xanax 0.25 mg tablet RxNorm: 011724 1/2-1 Tablet(s) PO QDAY PRN 07/16/2016 04/03/2017 Inactive amlodipine 5 mg tablet RxNorm: 890666 TAKE ONE TABLET BY MOUTH DAILY 06/28/2016 08/26/2016 In active metoprolol tartrate 100 mg tablet RxNorm: 144672 Tablet(s) TAKE ONE AN D ONE-HALF (1 & 1/2) TABLET BY MOUTH EVERY MORNING AND TAKE TWO TABLETS BY MOUTH EVERY EVENING 05/02/2016 05/02/2016 Inactive metoprolol tartrate 100 mg tablet RxNorm: 065404 Tablet(s) PO TAKE ONE AND ONE-HALF (1 & 1/2) TABLET BY MOUTH EVERY MORNING AND TAKE TWO TABLETS BY MOUTH EVERY EVENING 05/02/2016 05/01/2016 Inactive metoprolol tartrate 100 mg tablet RxNorm: 139023 Tablet(s) PO TAKE ONE AND ONE-HALF (1 & 1/2) TABLET BY MOUTH EVERY MORNING AND TAKE TWO TABLETS BY MOUTH EVERY EVENING 05/02/2016 10/28/2016 Inactive atorvastatin 20 mg t ablet RxNorm: 693256 TAKE ONE TABLET BY MO UTH DAILY 04/25/2016 10/21/2016 In active tramadol 50 mg tablet RxNorm: 796205 1-2 Tablet(s) PO Q8 as needed 04/25/2016 10/27/2017 In active cyclobenzaprine 10 m g tablet RxNorm: 186084 Tablet(s) PO TAKE ONE TABLET BY MOUTH EVERY 8 HOURS NEEDED 04/18/2016 06/16/2016 Inactive Kenalog 40 mg/mL sylvia pension for injection RxNorm: 1897018 1 Milliliter(s) Inj 04/04/2016 04/04/2016 In active Phenergan with Codei ne Syrup RxNorm: PO 04/03/2016 02/15/2019 Inactive Zithromax Z-Kush 250 mg tablet RxNorm: 712626 1 Tablet(s) PO UD 04/03/2016 04/07/2016 Inactive 2 tabs on day 1 then 1 tab daily on days 2-5 amlodipine 5 mg tablet RxNorm: 063556 TAKE ONE TABLET BY MOUTH DAILY 03/27/2016 06/24/2016 In active Flexeril 10 mg tablet RxNorm: 510967 TAKE ONE TABLET BY MOUTH EVERY 8 HOURS A S NEEDED 03/14/2016 04/02/2016 Inactive Vitamin B-12 ER 2,00 0 mcg tablet,extended release RxNorm: 212908 1 Tablet(s) PO daily 03/13/2016 No Stop Date Active Vitamin B-12 ER 2,00 0 mcg tablet,extended release RxNorm: 821202 1 Tablet(s) PO daily 03/13/2016 05/04/2019 Inactive gabapentin 100 mg ca psule RxNorm: 228994 1 Capsule(s) PO BID 03/13/2016 09/15/2016 Inactive Flexeril 10 mg tablet RxNorm: 576944 Tablet(s) TAKE ONE TABLET BY MOUTH EVERY 8 HOURS NEEDED 02/08/2016 02/27/2016 Inactive Xanax 0.25 mg tablet RxNorm: 306179 1/2-1 Tablet(s) PO QDAY PRN 02/08/2016 07/15/2016 Inactive amlodipine 5 mg tablet RxNorm: 533532 1 Tablet(s) PO daily 02/06/2016 03/26/2016 Inactive furosemide 20 mg tablet RxNorm: 893700 1 Tablet(s) PO daily 01/30/2016 06/16/2016 Inactive amlodipine 10 mg tablet RxNorm: 602804 1/2 Tablet(s) PO daily 01/30/2016 02/05/2016 Inactive doxazosin 4 mg tablet RxNorm: 345640 1.5 Tablet(s) PO BID 01/30/2016 01/23/2017 Inactive Flexeril 10 mg tablet RxNorm: 161759 TAKE ONE TABLET BY MOUTH EVERY 8 HOURS A S NEEDED 01/10/2016 01/29/2016 Inactive potassium chloride E R 10 mEq tablet,extended release RxNorm: 591659 1 Tablet(s) PO PRN as needed with lasix 12/25/2015 06/16/2016 Inactive prn swelling amlodipine 10 mg tablet RxNorm: 627565 TAKE ONE TABLET BY MOUTH EVERY MORNING 12/25/2015 12/24/2015 In active amlodipine 10 mg tablet RxNorm: 315667 TAKE ONE TABLET BY MOUTH EVERY MORNING 12/25/2015 01/29/2016 In active furosemide 20 mg tablet RxNorm: 436388 1/2 Tablet(s) PO daily as needed edema 12/21/2015 01/19/2016 In active pt needs to take 10meq potassium on days she takes the lasix metoprolol tartrate 100 mg tablet RxNorm: 451143 TAKE ONE AND ONE-HALF (1 & 1/2) TABLET BY MOUTH EVERY MORNING AND TAKE TWO TABLETS BY MOUTH EVERY EVENING 11/08/2015 12/07/2015 In active Flonase Allergy Reli ef 50 mcg/actuation nasal spray,suspension RxNorm: [place] as needed PLACE 2 SPRAYS IN EACH NOSTRIL DAILY 10/09/2015 02/05/2016 Inactive Flexeril 10 mg tablet RxNorm: 231505 1 Tablet(s) PO TID PRN TAKE ONE TABLET B Y MOUTH EVERY 8 HOURS NEEDED 10/09/2015 12/07/2015 Inactive alprazolam 0.5 mg ta blet RxNorm: 871634 TAKE ONE TABLET BY [facility] AT BEDTIME NEEDED FOR ANXIETY 08/29/2015 11/23/2015 Inactive Flonase Allergy Reli ef 50 mcg/actuation nasal spray,suspension RxNorm: PLACE 2 SPRAYS IN EACH NOSTRIL DAILY 07/06/2015 10/08/2015 Inactive Kenalog 40 mg/mL sylvia pension for injection RxNorm: 6930005 Milliliter(s) Inj 06/12/2015 06/12/2015 In active prednisone 10 mg tab lets in a dose pack RxNorm: 779381 1 Tablet(s) PO UD 06/12/2015 06/17/2015 In active 6-5-4-3-2-1 acyclovir 800 mg tablet RxNorm: 747616 1 Tablet(s) PO TID 06/12/2015 06/21/2015 Inactive Xanax 0.25 mg tablet RxNorm: 959613 1/2-1 Tablet(s) PO QDAY PRN 05/15/2015 02/07/2016 Inactive Flonase Allergy Reli ef 50 mcg/actuation nasal spray,suspension RxNorm: 2 [place] NASAL daily 05/15/2015 06/13/2015 Inactive Kenalog 40 mg/mL sylvia pension for injection RxNorm: 9090990 Milliliter(s) Inj 05/15/2015 05/15/2015 In active metoprolol tartrate 100 mg tablet RxNorm: 327065 TAKE ONE AND ONE-HALF (1 & 1/2) TABLET BY MOUTH EVERY MORNING AND TAKE TWO TABLETS BY MOUTH EVERY EVENING 05/07/2015 06/05/2015 In active metoprolol tartrate 100 mg tablet RxNorm: 577242 TAKE ONE AND ONE-HALF (1 & 1/2) TABLET BY MOUTH EVERY MORNING AND TAKE TWO TABLETS BY MOUTH EVERY EVENING 04/05/2015 05/04/2015 In active amlodipine 10 mg tablet RxNorm: 403215 TAKE ONE TABLET BY MOUTH EVERY MORNING 03/10/2015 12/04/2015 In active alprazolam 0.5 mg ta blet RxNorm: 484644 TAKE ONE TABLET BY MO UTH EVERY NIGHT AT BEDTIME NEEDED FOR ANXIETY 02/23/2015 03/24/2015 Inactive (Response to an electronic controlled substance refill request - RxReferenceNumber: [id number]) alprazolam 0.5 mg ta blet RxNorm: 812489 1 Tablet(s) PO QHS as needed anxiety 02/23/2015 08/29/2015 In active (Response to an electronic controlled salas bstance refill request - RxReferenceNumber: [id number]) doxazosin 4 mg tablet RxNorm: 410425 TAKE ONE TABLET BY MOUTH TWICE A DAY 02/13/2015 01/29/2016 In active atorvastatin 20 mg t ablet RxNorm: 211695 TAKE ONE TABLET BY MO UTH EVERY DAY 01/19/2015 05/03/2019 In active atorvastatin 20 mg t ablet RxNorm: 316808 Tablet(s) TAKE ONE TA BLET BY MOUTH EVERY DAY 01/19/2015 01/18/2015 Inactive [SAVINGS FOR NON-COVERED DRUGS -- BIN:00 3585, PCN: ASPROD1, Group: XXXXX, ID# [id number], Questions: . THIS IS NOT INSURANCE.] Maxzide-25mg 37.5 mg -25 mg tablet RxNorm: 69749 1 Tablet(s) PO daily 01/10/2015 10/08/2015 Inactive [SAVINGS FOR NON-COVERED DRUGS -- BIN:00 3585, PCN: ASPROD1, Group: XXXXX, ID# [id number], Questions: . THIS IS NOT INSURANCE.] metoprolol tartrate 100 mg tablet RxNorm: 874064 TAKE ONE AND ONE-HALF (1 & 1/2) TABLET BY MOUTH EVERY MORNING AND TAKE TWO TABLETS BY MOUTH EVERY EVENING 12/05/2014 01/03/2015 In active Flexeril 10 mg tablet RxNorm: 300956 TAKE ONE TABLET BY MOUTH EVERY 8 HOURS A S NEEDED 10/31/2014 06/27/2015 Inactive alprazolam 0.5 mg ta blet RxNorm: 809037 1 Tablet(s) PO QHS TA KE ONE TABLET BY MOUTH EVERY NIGHT AT BEDTIME AND NEEDED FOR PANIC ATTACKS 10/21/2014 10/23/2014 Inactive (Appended: Controlled substance eRx refi ll - RxReferenceNumber: [id number]) alprazolam 0.5 mg ta blet RxNorm: 111381 TAKE ONE TABLET BY MO UTH EVERY NIGHT AT BEDTIME NEEDED FOR ANXIETY 10/20/2014 11/18/2014 Inactive (Response to an electronic controlled substance refill request - RxReferenceNumber: [id number]) amlodipine 10 mg tablet RxNorm: 153398 1 Tablet(s) PO QAM 09/09/2014 03/07/2015 Inactive now taking full tab [SAVINGS FOR UNINSURED PATIENTS -- BIN:215702, PCN: ASPROD1, Group: [id number], ID# [id number], Process claim through [employer], for questions: . THIS IS NOT INSURANCE.] metoprolol tartrate 100 mg tablet RxNorm: 480730 TAKE ONE AND ONE-HALF (1 & 1/2) TABLET BY MOUTH EVERY MORNING AND TAKE TWO TABLETS BY MOUTH EVERY EVENING 09/03/2014 10/02/2014 In active alprazolam 0.5 mg ta blet RxNorm: 042737 TAKE ONE TABLET BY MO UT EVERY NIGHT AT BEDTIME AND NEEDED FOR PANIC ATTACKS 08/29/2014 09/12/2014 Inactive (Response to an electronic controlled substance refill request - RxReferenceNumber: [id number]) Zithromax Z-Kush 250 mg tablet RxNorm: 244169 1 Tablet(s) PO UD 07/26/2014 07/25/2014 Inactive 2 tabs on day 1 then 1 tab daily on days 2-5 Zithromax Z-Kush 250 mg tablet RxNorm: 418164 1 Tablet(s) PO UD 07/26/2014 07/30/2014 Inactive 2 tabs on day 1 then 1 tab daily on days 2-5 alprazolam 0.5 mg ta blet RxNorm: 092861 Tablet(s) PO TAKE ONE TABLET BY MOUTH EVERY NIGHT AT BEDTIME AND NEEDED FOR PANIC ATTACKS 07/08/2014 08/30/2014 Inactive (Appended: Controlled substance eRx refill - RxReferenceNumber: [id number]) atorvastatin 20 mg t ablet RxNorm: 321464 TAKE ONE TABLET BY MO UT EVERY DAY 04/25/2014 01/18/2015 In active Carafate 1 gram tablet RxNorm: 536652 Tablet(s) PO TAKE ONE TABLET BY MOUTH FO UR TIMES A DAY 04/14/2014 10/08/2015 Inactive Fish Oil 1,000 mg ca psule RxNorm: 1 Capsule(s) PO TID 04/13/2014 10/08/2015 Inactive Flexeril 10 mg tablet RxNorm: 267145 1 Tablet(s) PO Q8 PRN 04/01/2014 04/10/2014 Inactive Carafate 1 gram tablet RxNorm: 588551 1 Tablet(s) PO QID 03/10/2014 02/15/2019 Inactive chlordiazepoxide-cli dinium 5 mg-2.5 mg capsule RxNorm: 853565 1 Capsule(s) PO TID P RN 03/10/2014 04/10/2014 Inactive doxazosin 4 mg tablet RxNorm: 690558 1 Tablet(s) PO BID 02/02/2014 02/12/2015 Inactive Kenalog 40 mg/mL sylvia pension for injection RxNorm: 5837255 Milliliter(s) Inj 02/02/2014 02/02/2014 In active atorvastatin 20 mg t ablet RxNorm: 561295 Tablet(s) PO TAKE ONE TABLET BY MOUTH EVERY DAY 01/10/2014 04/24/2014 Inactive alprazolam 0.5 mg ta blet RxNorm: 902341 Tablet(s) PO TAKE ONE TABLET BY MOUTH EVERY NIGHT AT BEDTIME AND NEEDED FOR PANIC ATTACKS 01/10/2014 07/07/2014 Inactive (Appended: Controlled substance eRx refill - RxReferenceNumber: [id number]) alprazolam 0.5 mg ta blet RxNorm: 694903 1 Tablet(s) PO QHS TA KE ONE TABLET BY MOUTH EVERY NIGHT AT BEDTIME AND NEEDED FOR PANIC ATTACKS 01/10/2014 10/20/2014 Inactive (Appended: Controlled substance eRx refi ll - RxReferenceNumber: [id number]) alprazolam 0.5 mg ta blet RxNorm: 640046 Tablet(s) PO TAKE ONE TABLET BY MOUTH EVERY NIGHT AT BEDTIME AND NEEDED FOR PANIC ATTACKS 01/10/2014 01/09/2014 Inactive (Appended: Controlled substance eRx refill - RxReferenceNumber: [id number]) Carafate 1 gram tablet RxNorm: 581659 1 Tablet(s) PO QID 12/16/2013 01/14/2014 Inactive Nexium 40 mg capsule ,delayed release RxNorm: 440517 Capsule(s) PO TAKE ON E CAPSULE BY MOUTH EVERY DAY 11/25/2013 03/12/2016 Inactive doxazosin 4 mg tablet RxNorm: 934868 1/2 Tablet(s) PO QPM 10/21/2013 01/20/2019 Inactive alprazolam 0.5 mg ta blet RxNorm: 902951 1 Tablet(s) PO as dir ected q hs and prn panic attacks 10/18/2013 01/10/2014 Inactive doxazosin 4 mg tablet RxNorm: 288949 1 q am 1/2 q pm Tablet(s) PO 09/21/2013 02/01/2014 Inactive doxazosin 4 mg tablet RxNorm: 239690 1 q am 1/2 q pm Tablet(s) PO 09/21/2013 09/20/2013 Inactive amlodipine 10 mg tablet RxNorm: 143659 1 Tablet(s) PO QAM 08/30/2013 08/24/2014 Inactive now taking full tab metoprolol tartrate 100 mg tablet RxNorm: 297601 2 Tablet(s) PO QPM 08/24/2013 10/22/2013 Inactive alprazolam 0.5 mg ta blet RxNorm: 580003 1 Tablet(s) PO as dir ected q hs and prn panic attacks 07/29/2013 10/17/2013 Inactive Benicar 20 mg tablet RxNorm: 060825 1 Tablet(s) PO daily 07/26/2013 08/09/2013 Inactive amlodipine 10 mg tablet RxNorm: 850194 1 Tablet(s) PO QAM 07/19/2013 08/29/2013 Inactive cyclobenzaprine 5 mg tablet RxNorm: 527186 1 Tablet(s) PO TID CA N one pill every 8 hours as needed for muscle spasms. 07/19/2013 03/31/2014 Inactive Kenalog 40 mg/mL Sylvia p for Injection RxNorm: 7447435 1 Milliliter(s) Inj 06/30/2013 06/30/2013 In active prednisone 10 mg tab lets in a dose pack RxNorm: 326118 1 Tablet(s) PO as doc tor directed take steroid taper as directed on box 06/30/2013 07/09/2013 Inactive disp ense one PACK meclizine 25 mg tablet RxNorm: 948698 1 Tablet(s) PO Q6 PRN 1/2 - 1 pill every 6 hours as needed for vertigo 06/30/2013 08/10/2013 Inactive metoprolol tartrate 100 mg tablet RxNorm: 213913 1.5 Tablet(s) PO BID 06/30/2013 08/23/2013 In active metoprolol tartrate 100 mg tablet RxNorm: 768740 1 Tablet(s) PO BID 06/24/2013 06/29/2013 Inactive metoprolol tartrate 100 mg tablet RxNorm: 105572 1 Tablet(s) PO daily 06/17/2013 06/23/2013 In active metoprolol tartrate 100 mg tablet RxNorm: 896973 1 Tablet(s) PO daily 06/17/2013 06/16/2013 In active Toprol XL 100 mg tab let,extended release RxNorm: 083922 Tablet(s) PO TAKE ONE AND ONE- HALF TABLET BY MOUTH EVERY MORNING AND ONE TABLET IN THE EVENING 05/05/2013 06/22/2013 In active alprazolam 0.5 mg ta blet RxNorm: 901178 1 Tablet(s) PO as dir ected q hs and prn panic attacks 04/06/2013 07/28/2013 Inactive doxazosin 4 mg tablet RxNorm: 784486 Tablet(s) PO TAKE ONE TABLET BY MOUTH EV KANE DAY 04/01/2013 09/20/2013 Inactive Toprol XL 100 mg tab let,extended release RxNorm: 262423 Tablet(s) PO TAKE ONE AND ONE- HALF TABLET BY MOUTH EVERY MORNING AND ONE TABLET IN THE EVENING 12/25/2012 05/04/2013 In active Lasix 20 mg tablet RxNorm: 648580 1 Tablet(s) PO QDAY PRN Take 1 tab daily x 3 days then as needed 12/02/2012 04/10/2014 Inactive potassium chloride E R 20 mEq tablet,extended release(part/cryst) RxNorm: 311020 1 Tablet(s) PO PRN 12/02/2012 10/04/2013 Inactive prn swelling alprazolam 0.5 mg ta blet RxNorm: 753922 1 Tablet(s) PO as dir ected q hs and prn panic attacks 12/01/2012 04/05/2013 Inactive amlodipine 10 mg tablet RxNorm: 668151 1/2 Tablet(s) PO QAM 12/01/2012 07/18/2013 Inactive fluconazole 150 mg t ablet RxNorm: 688664 1 Tablet(s) PO daily 11/16/2012 11/20/2012 Inactive fluconazole 150 mg t ablet RxNorm: 805438 1 Tablet(s) PO daily 11/16/2012 11/15/2012 Inactive Nexium 40 mg capsule ,delayed release RxNorm: 809201 1 Capsule(s) PO daily 10/23/2012 11/16/2013 In active acyclovir 400 mg tablet RxNorm: 430792 1 Tablet(s) PO TID 10/19/2012 10/28/2012 Inactive chlordiazepoxide-cli dinium 5 mg-2.5 mg capsule RxNorm: 332808 1 Capsule(s) PO TID P RN 2012 12/22/2013 Inactive Voltaren 1 % Topical Gel RxNorm: 107362 4 Gram(s) TOP QID pt is to use 2 grams to each hand and 4 grams to knees. 08/18/2012 04/10/2014 Inactive doxazosin 4 mg tablet RxNorm: 438110 1 Tablet(s) PO QAM 08/18/2012 10/16/2012 Inactive atorvastatin 20 mg t ablet RxNorm: 104065 1 Tablet(s) PO HS 08/12/2012 08/11/2012 Inactive may have #90 x3 infection atorvastatin 20 mg t ablet RxNorm: 066710 1 Tablet(s) PO HS 08/12/2012 09/05/2013 Inactive may have #90 x3 infection doxazosin 4 mg tablet RxNorm: 623309 1 Tablet(s) PO daily 08/11/2012 08/17/2012 Inactive clonidine 0.1 mg/24 hr Weekly Transderm Patch RxNorm: 872494 1 Patch TD QW 08/04/2012 08/10/2012 In active Influenza Virus Vacc ine 0.5 mL RxNorm: IM 08/04/2012 08/04/2012 Inactive cyclobenzaprine 5 mg tablet RxNorm: 229434 1 Tablet(s) PO TID CA N one pill every 8 hours as needed for muscle spasms. 07/13/2012 11/09/2012 Inactive cyclobenzaprine 5 mg tablet RxNorm: 154824 1 Tablet(s) PO TID CA N one pill every 8 hours as needed for muscle spasms. 07/09/2012 07/12/2012 Inactive gabapentin 100 mg ca psule RxNorm: 981849 1 Capsule(s) PO TID 07/01/2012 12/01/2012 Inactive atorvastatin 20 mg t ablet RxNorm: 945564 1/2 Tablet(s) PO daily 07/01/2012 08/11/2012 Inactive may of day supply if cheaper Toprol XL 100 mg tab let,extended release RxNorm: 121777 Tablet(s) PO BID 11/2 in am and 1 in evening 07/01/2012 06/16/2013 Inactive 1 1/2 q am 1 in [place] alprazolam 0.5 mg ta blet RxNorm: 357300 1 Tablet(s) PO as dir ected q hs and prn panic attacks 06/24/2012 11/30/2012 Inactive amlodipine 10 mg tablet RxNorm: 564793 1 Tablet(s) PO QAM 06/19/2012 11/30/2012 Inactive benazepril 20 mg tablet RxNorm: 444876 1 Tablet(s) PO daily 06/19/2012 06/13/2013 Inactive one daily at noon Toprol XL 100 mg tab let,extended release RxNorm: 860021 Tablet(s) PO BID 06/19/2012 06/30/2012 In active 1 1/2 q am 1 in [place] Toprol XL 100 mg tab let,extended release RxNorm: 852371 1 1/2 Tablet(s) PO BI D 04/27/2012 06/18/2012 In active 90 or 30 day supply, whatever ins will a llow Lotrel 10 mg-20 mg Cap RxNorm: 922806 1 Capsule(s) PO daily 04/20/2012 08/04/2012 Inactive estradiol 0.5 mg Tab RxNorm: 170605 1 Tablet(s) PO BID 04/20/2012 12/02/2012 Inactive Toprol XL 100 mg 24 hr Tab RxNorm: 989139 1 1/2 Tablet(s) PO BID 04/14/2012 04/26/2012 Inactive Toprol XL 100 mg 24 hr Tab RxNorm: 655324 Tablet(s) PO daily 03/31/2012 04/13/2012 Inactive new directions: one q am 1/2 every evepl ease put on file until she needs filled Lipitor 10 mg tablet RxNorm: 218101 1 Tablet(s) PO daily 03/31/2012 12/02/2012 Inactive may of 90 day supply if cheaper Toprol XL 100 mg 24 hr Tab RxNorm: 566958 1 Tablet(s) PO daily 03/11/2012 03/30/2012 Inactive Boniva 150 mg Tab RxNorm: 876030 1 Tablet(s) PO weekly 02/19/2012 12/02/2012 Inactive Detrol LA 4 mg capsu le,extended release RxNorm: 925533 1 Capsule(s) PO daily 02/19/2012 03/12/2016 In active doxycycline hyclate 100 mg Tab RxNorm: 2686683 1 Tablet(s) PO BID 01/23/2012 02/25/2012 Inactive Rocephin 500 mg Solu tion for Injection RxNorm: 9977703 1 Milliliter(s) Inj 01/23/2012 01/23/2012 In active Kenalog 40 mg/mL Sylvia p for Injection RxNorm: 4100686 1 Milliliter(s) Inj 01/23/2012 01/23/2012 In active cyclobenzaprine 5 mg tablet RxNorm: 196771 1 Tablet(s) PO TID CA N one pill every 8 hours as needed for muscle spasms. 12/20/2011 04/17/2012 Inactive clonidine 0.1 mg Tab RxNorm: 474284 1 Tablet(s) PO BID 12/20/2011 02/25/2012 Inactive Celebrex 200 mg capsule RxNorm: 925107 1 Capsule(s) PO daily -Prescribed by Dr. Madison No Start Date Active Vitamin D3 5,000 uni t tablet RxNorm: 548586 1 Tablet(s) PO daily No Start Date Active Nexium 24HR 22.3 mg capsule,delayed release RxNorm: 186884 1 Capsule(s) PO daily as needed No Start Date Active Lotrel 10 mg-20 mg Cap RxNorm: 662540 1 Capsule(s) PO daily No Start Date 02/24/2012 Inactive benazepril 20 mg tablet RxNorm: 520508 1 Tablet(s) PO No Start Date 06/18/2012 Inactive one daily at noon Vimovo 500 mg-20 mg multiphase, immed & delay rel Tab RxNorm: 443053 1 Tablet(s) PO BID No Start Date 12/01/2012 Inactive B12 1000 mcg RxNorm: 2 IM daily No Start Date 03/12/2016 Inactive Fish Oil 1,000 mg ca psule RxNorm: 1 Capsule(s) PO BID No Start Date 04/12/2014 Inactive Benicar 40 mg tablet RxNorm: 841441 1 Tablet(s) PO daily No Start Date 10/24/2013 Inactive Carafate 1 gram tablet RxNorm: 081575 Oral No Start Date 12/15/2013 Inactive Vitamin B-12 1,000 m cg tablet RxNorm: 414447 1 Tablet(s) PO daily No Start Date 03/12/2016 Inactive amlodipine 10 mg tablet RxNorm: 729688 1 Tablet(s) PO daily No Start Date 06/18/2012 Inactive Phenergan VC-Codeine 6.25 mg-5 mg-10 mg/5 mL Syrup RxNorm: 688647 5-10 Milliliter(s) PO Q6 PRN No Start Date 04/10/2014 Inactive Celebrex 200 mg capsule RxNorm: 210856 1 Capsule(s) PO daily No Start Date 10/08/2015 Inactive Percocet 5 mg-325 mg tablet RxNorm: 8460518 1-2 Tablet(s) PO Q6 PRN No Start Date 06/16/2014 Inactive Exforge 10 mg-320 mg Tab RxNorm: 373204 1 Tablet(s) PO daily sample No Start Date 05/20/2012 Inactive Lipitor 10 mg Tab RxNorm: 517987 1 Tablet(s) PO daily No Start Date 03/30/2012 Inactive tramadol 50 mg tablet RxNorm: 953082 1-2 Tablet(s) PO Q8 as needed No Start Date 04/24/2016 Inactive Lasix 20 mg tablet RxNorm: 025481 1 Tablet(s) PO QDAY PRN Take 1 tab daily x 3 days then as needed No Start Date 12/01/2012 Inactive potassium chloride E R 20 mEq tablet,extended release(part/cryst) RxNorm: 4070896 1 Tablet(s) PO QDAY PRN No Start Ochoa e 12/01/2012 Inactive Toprol XL 100 mg 24 hr Tab RxNorm: 781964 1 Tablet(s) PO daily No Start Date 03/10/2012 Inactive MIDRIN 325 mg-65 mg- 100 mg Cap RxNorm: 547136 1 Capsule(s) PO PRN No Start Date 05/20/2012 Inactive Nexium 40 mg capsule ,delayed release RxNorm: 905147 1 Capsule(s) PO daily No Start Date 10/22/2012 Inactive Detrol LA 4 mg 24 hr Cap RxNorm: 561693 Oral No S tart Date 02/18/2012 Inactive Boniva 150 mg Tab RxNorm: 623267 Oral No Start Date 02/18/2012 Inactive Flexeril 10 mg tablet RxNorm: 557294 1 Tablet(s) PO Q8 PRN No Start Date 03/31/2014 Inactive clidinium bromide Oral RxNorm: Oral No Start Date 12/01/2012 Inactive Fish Oil 360 mg-1,20 0 mg capsule,delayed release RxNorm: 1 Capsule(s) PO daily No Start Date 02/15/2019 Inactive alprazolam 0.5 mg ta blet RxNorm: 753256 1 Tablet(s) PO as dir ected q hs and prn panic attacks No Start Date 06/23/2012 Inactive chlordiazepoxide Oral RxNorm: Oral No Start Date 12/01/2012 Inactive metoprolol tartrate 100 mg tablet RxNorm: 316738 Tablet(s) PO TAKE ONE AND ONE-HALF (1 & 1/2) TABLET BY MOUTH EVERY MORNING AND TAKE TWO TABLETS BY MOUTH EVERY EVENING No Start Date 08/03/2014 Inactive furosemide 20 mg tablet RxNorm: 820723 1 Tablet(s) PO daily No Start Date 01/29/2016 Inactive Calcium Oral RxNorm: Oral No Start Date 03/12 Inactive Nasonex 50 mcg/actua tion [place] RxNorm: 955711 1 [place] NASAL BID No Start Date 04/10/2014 Inactive Medication Administered Medication Codes Instruc tions Start Date Status Kenalog 40 mg/mL suspension for injection RxNorm: 8147625 1Milliliter 05/11/2019 N o longer Active Kenalog 40 mg/mL suspension for injection RxNorm: 6546560 Milliliter 04/24/2018 No longer Active Kenalog 40 mg/mL suspension for injection RxNorm: 9156579 Milliliter 06/23/2017 No longer Active Kenalog 40 mg/mL suspension for injection RxNorm: 7580340 2Milliliter 03/21/2017 N o longer Active Kenalog 40 mg/mL suspension for injection RxNorm: 4163983 1Milliliter 04/04/2016 N o longer Active Kenalog 40 mg/mL suspension for injection RxNorm: 5365408 Milliliter 06/12/2015 No longer Active Kenalog 40 mg/mL suspension for injection RxNorm: 3291593 Milliliter 05/15/2015 No longer Active Kenalog 40 mg/mL suspension for injection RxNorm: 0120791 Milliliter 02/02/2014 No longer Active Kenalog 40 mg/mL Susp for Injection RxNorm: 3252060 1Milliliter 06/30/2013 N o longer Active Influenza Virus Vaccine 0.5 mL RxNorm: 08/04/2012 No longer Active Rocephin 500 mg Solution for Injection RxNorm: 6039673 1Milliliter 01/23/2012 N o longer Active Kenalog 40 mg/mL Susp for Injection RxNorm: 7915271 1Milliliter 01/23/2012 N o longer Active Immunizations [...] 33 09/03/2010 completed Tetanus, Diptheria, Pertussis CVX: 113 06/02/2008 completed Tetanus/Diptheria CVX: 113 06/02/2008 completed Assessments Condition Codes Effectiv e [...] 02/19/2012 cough 01/23/2012 cerumen 01/02/[address] brenda on lipitor 2 weeks ago hypertension 12/20/2011 [...] Ord2 RDW 14.8 % 06/05/2015 Comp Metabolic Vkw016 NA 138 mEq/L 06/05/2015 Comp Metabolic Aqb493 K 4.3 mEq/L 06/05/2015 Comp Metabolic Zee222 CL 100 mEq/L 06/05/2015 Comp Metabolic Sxd460 CO2 29.0 mEq/L 06/05/2015 Comp Metabolic Zee111 AN ION GAP 13 06/05/2015 Comp Metabolic Lxn681 GL UCOSE 85 mg/dL 06/05/2015 Comp Metabolic Sec397 Cr eat 0.7 mg/dL 06/05/2015 Comp Metabolic Kjg191 eG FR 94 ml/min/1.73m2 06/05 Comp Metabolic Lsa602 BUN 16 mg/dL 06/05/2015 Comp Metabolic Pvc644 B/ C Ratio 24.2 Ratio 06/05/2015 Comp Metabolic Fkq088 CA LCIUM 9.5 mg/dL 06/05/2015 Comp Metabolic Fjr279 AL K PHOS 69 U/L 06/05/2015 Comp Metabolic Bdd121 T(SGOT) 22 U/L 06/05/2015 Comp Metabolic Jnk620 AL T(SGPT) 26 U/L 06/05/2015 Comp Metabolic Txw967 BI LI T 0.5 mg/dL 06/05/2015 Comp Metabolic Vdn548 AL BUMIN 4.2 g/dL 06/05/2015 Comp Metabolic Wwx677 TP RO 6.1 g/dL 06/05/2015 Comp Metabolic Ikn454 GL OB 1.9 g/dL 06/05/2015 Comp Metabolic Oia084 A/ G Ratio 2.2 Ratio 06/05/2015 Comp Metabolic Iew761 Os mo 276 mOsmo 06/05/2015 Tsh Ord6 hTSH II 1.99 uIU/mL 06/05/2015 Lipid Ord30 CHOL 171 mg/dL 06/05/2015 Lipid Ord30 HDL 55.0 mg/dl 06/05/2015 Lipid Ord30 TRIG 178 mg/dL 06/05/2015 Lipid Ord30 LDL 80 mg/dL 06/05/2015 Lipid Ord30 C/HDL 3.1 Ratio 06/05/2015 %Hba1C Uhf680 % HbA1c 20269-9 5.7 % 06/05/2015 %Hba1C Ivt551 Gluc Ave 117 mg/dL 06/05/2015 A1C HPLC 0563257 A1C HPLC 98424-7 5.6 % 07/15/2014 GFR CALC 3158759 GFR AA >60 ML/MIN 07/15/2014 GFR CALC 6851220 GFR NON -AA >60 ML/MIN 07/15/2014 CHEM 14 8960105 AST 21 U/L 07/15/2014 CHEM 14 6875612 ALT 23 IU/L 07/15/2014 CHEM 14 9095702 BUN 14 MG/DL 07/15/2014 CHEM 14 5146664 ALBUMIN 4.2 GM/DL 07/15/2014 CHEM 14 1341351 CHLORIDE 104 MMOL/L 07/15/2014 CHEM 14 0554173 BILI TOT 0.4 MG/DL 07/15/2014 CHEM 14 6282931 ALK PHOS 88 U/L 07/15/2014 CHEM 14 7367198 SODIUM 140 MMOL/L 07/15/2014 CHEM 14 5923006 CREATINI NE 0.63 MG/DL 07/15/2014 CHEM 14 7560635 CALCIUM 9.4 MG/DL 07/15/2014 CHEM 14 7155287 POTASSIUM 4.0 MMOL/L 07/15/2014 CHEM 14 3258627 PROT TOT 6.4 GM/DL 07/15/2014 CHEM 14 0398637 GLUCOSE 90 MG/DL 07/15/2014 CHEM 14 3575590 BICARB 30 MMOL/L 07/15/2014 CHEM 14 7326985 ANION GAP 6 MEQ/L 07/15/2014 A1C HPLC 5280728 A1C HPLC 51864-3 6.0 % 04/13/2014 TSH 8469213 TSH 1.875 uIU/ML 04/12/2014 CHEM 14 0162123 AST 17 U/L 04/12/2014 CHEM 14 0179716 ALT 20 IU/L 04/12/2014 CHEM 14 7620890 BUN 14 MG/DL 04/12/2014 CHEM 14 6241527 ALBUMIN 4.2 GM/DL 04/12/2014 CHEM 14 8787914 CHLORIDE 104 MMOL/L 04/12/2014 CHEM 14 7386825 BILI TOT 0.3 MG/DL 04/12/2014 CHEM 14 5933887 ALK PHOS 80 U/L 04/12/2014 CHEM 14 7599717 SODIUM 141 MMOL/L 04/12/2014 CHEM 14 9355840 CREATINI NE 0.62 MG/DL 04/12/2014 CHEM 14 2955299 CALCIUM 9.4 MG/DL 04/12/2014 CHEM 14 2359176 POTASSIUM 3.5 MMOL/L 04/12/2014 CHEM 14 8645149 PROT TOT 6.5 GM/DL 04/12/2014 CHEM 14 9475364 GLUCOSE 89 MG/DL 04/12/2014 CHEM 14 4658687 BICARB 29 MMOL/L 04/12/2014 CHEM 14 1045619 ANION GAP 8 MEQ/L 04/12/2014 LIPID GRP HDL TE ST 59 MG/DL 04/12/2014 LIPID GRP TRIG 177 MG/DL 04/12/2014 LIPID GRP 2699016 TEST L DL 106 MG/DL 04/12/2014 LIPID GRP CHOL 200 MG/DL 04/12/2014 LIPID GRP 0735490 RCHOL/ HDL 3.39 RATIO 04/12/2014 CBC 9038974 WBC 4.6 10e9/L 04/12/2014 CBC 5950059 RBC 4.52 10e12/L 04/12/2014 CBC 9340230 HGB 13.1 g/dL 04/12/2014 CBC 0078595 HCT DET 39.2 % 04/12/2014 CBC 9452136 MCV 86.7 fL 04/12/2014 CBC 9467683 MCH 29.0 pg 04/12/2014 CBC 7013257 MCHC 33.4 g/dL 04/12/2014 CBC 5323242 PLT 233 10e9/L 04/12/2014 CBC 6135858 MPV 9.8 fL 04/12/2014 CBC 4540246 AN % 59.5 % 04/12/2014 CBC 1067657 LY % 28.6 % 04/12/2014 CBC 8860102 MON % 10.0 % 04/12/2014 CBC 2751636 EOS % 1.5 % 04/12/2014 CBC 1826939 BASO % 0.4 % 04/12/2014 CBC 5110899 RDW 13.7 % 04/12/2014 CBC 9660674 ABS AN 2.74 10e9/L 04/12/2014 CBC 1140539 ABS LYMPH 1.32 10e9/L 04/12/2014 CBC 7524737 ABS MONO 0.46 10e9/L 04/12/2014 CBC 3132148 ABS EOS 0.07 10e9/L 04/12/2014 CBC 3971598 ABS BASO 0.02 10e9/L 04/12/2014 CBC 4354655 RDW-SD 42.6 fL 04/12/2014 GFR CALC 3873470 GFR AA >60 ML/MIN 04/12/2014 GFR CALC 6092420 GFR NON -AA >60 ML/MIN 04/12/2014 LIPID GRP HDL TE ST 57 MG/DL 08/24/2013 LIPID GRP TRIG 183 MG/DL 08/24/2013 LIPID GRP 9348483 TEST L DL 64 MG/DL 08/24/2013 LIPID GRP CHOL 158 MG/DL 08/24/2013 LIPID GRP RCHOL/ HDL 2.77 RATIO 08/24/2013 GFR CALC 9335799 GFR AA >60 ML/MIN 08/24/2013 GFR CALC 5461723 GFR NON -AA >60 ML/MIN 08/24/2013 CHEM 14 5426767 AST 13 U/L 08/24/2013 CHEM 14 1504778 ALT 15 IU/L 08/24/2013 CHEM 14 6413897 BUN 14 MG/DL 08/24/2013 CHEM 14 7149837 ALBUMIN 4.3 GM/DL 08/24/2013 CHEM 14 6638285 CHLORIDE 106 MMOL/L 08/24/2013 CHEM 14 7066099 BILI TOT 0.3 MG/DL 08/24/2013 CHEM 14 7159123 ALK PHOS 75 U/L 08/24/2013 CHEM 14 9471208 SODIUM 141 MMOL/L 08/24/2013 CHEM 14 4924387 CREATINI NE 0.56 MG/DL 08/24/2013 CHEM 14 4170359 CALCIUM 9.1 MG/DL 08/24/2013 CHEM 14 1232957 POTASSIUM 4.2 MMOL/L 08/24/2013 CHEM 14 2556746 PROT TOT 6.0 GM/DL 08/24/2013 CHEM 14 4295298 GLUCOSE 83 MG/DL 08/24/2013 CHEM 14 9140086 BICARB 28 MMOL/L 08/24/2013 CHEM 14 5671038 ANION GAP 7 MEQ/L 08/24/2013 CBC 4018660 WBC 4.7 10e9/L 08/24/2013 CBC 2007559 RBC 4.33 10e12/L 08/24/2013 CBC 3529915 HGB 12.5 g/dL 08/24/2013 CBC 6476879 HCT DET 38.2 % 08/24/2013 CBC 2051803 MCV 88.2 fL 08/24/2013 CBC 1823687 MCH 28.9 pg 08/24/2013 CBC 2680484 MCHC 32.7 g/dL 08/24/2013 CBC 4129253 PLT 218 10e9/L 08/24/2013 CBC 0991908 MPV 10.4 fL 08/24/2013 CBC 0217008 AN % 61.9 % 08/24/2013 CBC 0426270 LY % 24.8 % 08/24/2013 CBC 3304519 MON % 10.3 % 08/24/2013 CBC 9065549 EOS % 2.1 % 08/24/2013 CBC 7274071 BASO % 0.9 % 08/24/2013 CBC 5729784 RDW 14.6 % 08/24/2013 CBC 9672800 ABS AN 2.91 10e9/L 08/24/2013 CBC 4906547 ABS LYMPH 1.17 10e9/L 08/24/2013 CBC 1286884 ABS MONO 0.48 10e9/L 08/24/2013 CBC 8577928 ABS EOS 0.10 10e9/L 08/24/2013 CBC 9795195 ABS BASO 0.04 10e9/L 08/24/2013 CBC 1970655 RDW-SD 46.7 fL 08/24/2013 TSH 5129864 TSH 1.208 uIU/ML 08/24/2013 Review of Systems [...] 06/08/2018 Musculoskeletal muscle weakness 06/08/2018 Psychiatric anxiety 0804/2018 Constitutional recent illness 05/04/2018 Constitutional No anorexia [...] consciousness 02/04/2018 Neurologic pain, limb Psychiatric anxiety 04/0 02/2018 Cardiovascular hypertension 02/04/2018 Musculoskeletal muscle weakness [...] No rash Dermatologic No sores Psychiatric anxiety 05/03 Psychiatric depression 0 05/15/2015 Constitutional No recent [...] General 1995 Ears/Nose/Throat otoscopic exam Tympanic membrane: air-fluid level 01/21/2019 None Full Exam - General 1995 Ears/Nose/Throat internal nose Drainage: clear 01/21/2019 None Full Exam - General 1995 Ears/Nose/Throat internal nose Sinus tenderness: left maxillary 01/21/2019 None Full Exam - General 1995 Ears/Nose/Throat internal nose Sinus tenderness: right maxillary 01/21/2019 None Full Exam - General 1995 Ears/Nose/Throat lips/teeth/gingiva Overall: benign lips 01/21/2019 None Full Exam - General 1995 Ears/Nose/Throat lips/teeth/gingiva Overall: normal dentition 01/21/2019 None Full Exam - General 1994 Ears/Nose/Throat oral cavity/pharynx/larynx Overall: oral mucosa clear 01/21/2019 None Full Exam - General 1994 Ears/Nose/Throat oral cavity/pharynx/larynx Posterior Pharynx: clear post nasal drainage 01/21/2019 None Full Exam - General 1995 Ears/Nose/Throat oral cavity/pharynx/larynx Oropharynx: erythema 01/21/2019 None [...] 1995 Ears/Nose/Throat oral cavity/pharynx/larynx Overall: no masses 02/02/2014 [...] 08/24/2013 None Full Exam - General 1994 Ears/Nose/Throat oral cavity/pharynx/larynx Overall: oropharyngeal mucosa clear 08/24/2013 None Full Exam - General 1994 Ears/Nose/Throat oral cavity/pharynx/larynx Overall: no masses 08/24/2013 None Full Exam - General 1994 Ears/Nose/Throat [...] accomodation 07/26/2013 None Full Exam - General 1994 Ears/Nose/Throat otoscopic exam Overall: external auditory canals clear 07/26/2013 None Full Exam - General 1994 Ears/Nose/Throat otoscopic exam Overall: tympanic membranes clear 07/26/2013 None Full Exam - General 1994 Ears/Nose/Throat oral cavity/pharynx/larynx Overall: oral mucosa clear 07/26/2013 None Full Exam - General 1995 Ears/Nose/Throat oral cavity/pharynx/larynx Overall: oropharyngeal mucosa clear 07/26/2013 None Full Exam - General 1995 Ears/Nose/Throat oral cavity/pharynx/larynx Overall: no masses 07/26/2013 None Full Exam - General 1995 Respiratory auscultation Overall: breath sounds clear bilaterally 07/26/2013 None Full Exam - General 1995 Respiratory respiratory effort/rhythm Overall: no retractions 07/26/2013 None Full Exam - General 1995 Respiratory respiratory effort/rhythm Overall: normal rate 07/26/2013 None Full Exam - General 1995 Cardiovascular auscultation of heart Overall: regular rate 07/26/2013 None Full Exam - General 1995 Cardiovascular auscultation of heart Overall: normal heart sounds 07/26/2013 None Full Exam - General 1994 Cardiovascular auscultation of heart Overall: no murmurs 07/26/2013 None Full Exam - General 1995 Psychiatric orientation/consciousness Overall: oriented to person, place and time 07/26/2013 None Full Exam - General 1994 Constitutional general appearance Overall: well developed 06/30/2013 None Full Exam - General 1995 Constitutional general appearance Overall: in no acute distress 06/30/2013 None Full Exam - General 1995 Constitutional general appearance Overall: well nourished 06/30/2013 [...] murmurs 06/30/2013 None Full Exam - General 1995 Psychiatric [...] 1994 Ears/Nose/Throat oral cavity/pharynx/larynx Overall: no masses 08/04/2012 [...] cerumen 07/01/2012 None Full Exam - General 1994 [...] right upper arm/shoulder Full Exam - General 1995 Constitutional general appearance Overall: well developed 01/02/2012 None Full Exam - General 1994 Constitutional general appearance Overall: in no acute distress 01/02/2012 None Full Exam - General 1994 Constitutional general appearance Overall: well nourished 01/02/2012 None Full Exam - General 1994 Ears/Nose/Throat otoscopic exam External auditory canal: complete cerumen impaction 01/02/2012 None Full Exam - General 1995 [...] Formatting Model/CDA Sections, Assigned to/Jen Cota CPT-4: [id number] 07/28/2018 THER/PROPH/DIAG INJ SC/IM CPT-4: 00312 04/24/2018 TRIAMCINOLONE ACET I [place] NOS CPT-4: J3301 04/24/2018 PPPS, SUBSEQ VISIT CPT- 4: G0439 02/03/2018 TRIAMCINOLONE ACET I [place] NOS CPT-4: J3301 06/23/2017 TRIAMCINOLONE ACET I [place] NOS CPT-4: J3301 03/21/2017 PPPS, SUBSEQ VISIT CPT- 4: G0439 01/22/2017 ADMIN PNEUMOCOCCAL V ACCINE SNOMED CT: 34393547 CPT-4: G0009 09/16/2016 Pneumococcal Polysac charide Vaccine, 23-Valent, Ad CPT-4: 67395 09/16/2016 THER/PROPH/DIAG INJ SC/IM CPT-4: 72812 04/04/2016 TRIAMCINOLONE ACET I [place] NOS CPT-4: J3301 04/04/2016 ADMIN INFLUENZA VIRU S VAC CPT-4: G0008 07/28/2015 FLU VACC 4 XIMENA 3 YRS PLUS IM Formatting Model/CDA Sections, Assigned to/Jen Cota SNOMED CT: [id number] CPT-4: 61460Jprrsch 07/28/2015 TRIAMCINOLONE ACET I [place] NOS CPT-4: J3301 06/12/2015 TRIAMCINOLONE ACET I [place] NOS CPT-4: J3301 05/15/2015 ADMIN INFLUENZA VIRU S VAC CPT-4: G0008 07/19/2014 FLU VAC NO PRSV 4 VA L 3 YRS+ Assigned to/Jen Cota CPT-4: [id number] 07/19/2014 TRIAMCINOLONE ACET I [place] NOS CPT-4: J3301 02/02/2014 ROUTINE VENIPUNCTURE CPT-4: 87734 08/24/2013 ADMIN INFLUENZA VIRU S VAC CPT-4: [...] CPT-4: J3301 01/23/2012 THER/PROPH/DIAG INJ SC/IM CPT-4: 10293 01/23/2012 REMOVE IMPACTED EAR WAX UNI CPT-4: 16749 01/02/2012 ROUTINE VENIPUNCTURE CPT-4: 92655 12/20/2011 Vital Signs Date Vital 06/14/2019 Blood Pressure 1: 158/70 Code: 8480-6 BMI: 33.4 Code: 55535-4 Heart Rate 1: 68 bpm Height: 5' SpO2: 97% Weight: 174 lbs 05/11/2019 Blood Pressure 1: 142/78 Code: 8480-6 BMI: 33.4 Code: 39970-7 Heart Rate 1: 58 bpm Height: 5' SpO2: 97% Weight: 174 lbs 02/16/2019 Blood Pressure 1: 136/82 Code: 8480-6 BMI: 34.0 Code: 72482-2 Heart Rate 1: 88 bpm Height: 5' SpO2: 94% Weight: 177 lbs 01/21/2019 Blood Pressure 1: 144/70 Code: 8480-6 BMI: 34.0 Code: 44320-4 Heart Rate 1: 68 bpm Height: 5' SpO2: 97% Temperature: 36.5 (C ) / 97.7 (F) Weight: 177 lbs 10/14/2018 Blood Pressure 1: 150/72 Code: 8480-6 Heart Rate 1: 58 bpm Height: 5' SpO2: 98% Weight: 09/22/2018 Blood Pressure 1: 140/80 Code: 8480-6 BMI: 32.7 Code: 24719-5 Heart Rate 1: 55 bpm Height: 5' SpO2: 98% Weight: 170 lbs 08/17/2018 Blood Pressure 1: 140/76 Code: 8480-6 BMI: 33.0 Code: 00897-9 Heart Rate 1: 60 bpm Height: 5' SpO2: 99% Weight: 172 lbs 06/08/2018 Blood Pressure 1: 136/80 Code: 8480-6 BMI: 33.8 Code: 65553-0 Heart Rate 1: 65 bpm Height: 5' SpO2: 98% Weight: 176 lbs 05/04/2018 Blood Pressure 1: 134/80 Code: 8480-6 BMI: 35.9 Code: 90928-2 Heart Rate 1: 72 bpm Height: 5' SpO2: 94% Weight: 187 lbs 02/04/2018 Blood Pressure 1: 144/76 Code: 8480-6 BMI: 35.0 Code: 59155-2 Heart Rate 1: 64 bpm Height: 5' SpO2: 98% Weight: 182 lbs 02/03/2018 Blood Pressure 1: 136/62 Code: 8480-6 BMI: 35.0 Code: 36875-9 Heart Rate 1: 57 bpm Height: 5' SpO2: 98% Waist Measure (cm): 94 cm Weight: 182 lbs 09/17/2017 Blood Pressure 1: 150/82 Code: 8480-6 BMI: 33.6 Code: 10141-7 Heart Rate 1: 58 bpm Height: 5' SpO2: 98% Weight: 175 lbs 06/23/2017 Blood Pressure 1: 124/66 Code: 8480-6 Heart Rate 1: 65 bpm Height: 5' SpO2: 97% Weight: 05/13/2017 Blood Pressure 1: 128/80 Code: 8480-6 BMI: 32.8 Code: 48383-4 Heart Rate 1: 76 bpm Height: 5' SpO2: 95% Weight: 171 lbs 03/21/2017 Blood Pressure 1: 152/88 Code: 8480-6 Heart Rate 1: 70 bpm Height: SpO2: 98% Weight: 03/19/2017 Blood Pressure 1: 132/64 Code: 8480-6 BMI: 33.0 Code: 45619-2 Heart Rate 1: 64 bpm Height: 5' SpO2: 96% Weight: 172 lbs 01/22/2017 Blood Pressure 1: 120/68 Code: 8480-6 BMI: 33.4 Code: 57432-2 Heart Rate 1: 68 bpm Height: 5' SpO2: 96% Weight: 174 lbs 01/14/2017 Blood Pressure 1: 138/80 Code: 8480-6 BMI: 33.4 Code: 76074-5 Heart Rate 1: 69 bpm Height: 5' SpO2: 98% Weight: 174 lbs 09/23/2016 Blood Pressure 1: 138/70 Code: 8480-6 BMI: 33.6 Code: 80579-3 Heart Rate 1: 68 bpm Height: 5' SpO2: 98% Temperature: 36.4 (C ) / 97.5 (F) Weight: 175 lbs 09/16/2016 Blood Pressure 1: 124/74 Code: 8480-6 BMI: 33.6 Code: 01954-8 Heart Rate 1: 64 bpm Height: 5' SpO2: 97% Weight: 175 lbs 06/25/2016 Weigh t: 174 lbs 06/17/2016 Blood Pressure 1: 128/80 Code: 8480-6 BMI: 34.0 Code: 04415-2 Heart Rate 1: 76 bpm Height: 5' SpO2: 95% Weight: 177 lbs 04/03/2016 Blood Pressure 1: 138/72 Code: 8480-6 BMI: 34.2 Code: 27030-3 Heart Rate 1: 63 bpm Height: 5' SpO2: 96% Weight: 178 lbs 03/13/2016 Blood Pressure 1: 128/72 Code: 8480-6 BMI: 35.3 Code: 55085-1 Heart Rate 1: 71 bpm Height: 5' SpO2: 97% Weight: 184 lbs 01/30/2016 Blood Pressure 1: 134/72 Code: 8480-6 BMI: 35.2 Code: 51122-2 Heart Rate 1: 71 bpm Height: 5' SpO2: 96% Weight: 183 lbs 12/21/2015 Blood Pressure 1: 148/90 Code: 8480-6 BMI: 34.6 Code: 44418-1 Heart Rate 1: 89 bpm Height: 5' SpO2: 96% Weight: 180 lbs 10/09/2015 Blood Pressure 1: 124/76 Code: 8480-6 BMI: 34.6 Code: 34043-7 Heart Rate 1: 88 bpm Height: 5' SpO2: 96% Weight: 180 lbs 06/12/2015 Blood Pressure 1: 148/74 Code: 8480-6 BMI: 33.4 Code: 95937-6 Heart Rate 1: 70 bpm Height: 5' SpO2: 96% Weight: 174 lbs 06/05/2015 Blood Pressure 1: 142/82 Code: 8480-6 BMI: 33.2 Code: 29550-3 Heart Rate 1: 72 bpm Height: 5' Weight: 173 lbs 05/15/2015 Blood Pressure 1: 118/80 Code: 8480-6 BMI: 33.6 Code: 07125-1 Heart Rate 1: 82 bpm Height: 5' Weight: 175 lbs 02/06/2015 Blood Pressure 1: 122/76 Code: 8480-6 BMI: 34.6 Code: 27431-8 Heart Rate 1: 58 bpm Height: 5' Weight: 180 lbs 01/10/2015 Blood Pressure 1: 158/90 Code: 8480-6 Blood Pressure 2: 152/90 Code: 8480-6 BMI: 34.6 Code: 08010-7 Heart Rate 1: 68 bpm Height: 5' Weight: 180 lbs 07/19/2014 Blood Pressure 1: 142/78 Code: 8480-6 BMI: 33.6 Code: 09934-8 Heart Rate 1: 56 bpm Height: 5' Weight: 175 lbs 06/17/2014 Blood Pressure 1: 128/86 Code: 8480-6 Heart Rate 1: 66 bpm SpO2: 98% Weight: 172 lbs 04/19/2014 Blood Pressure 1: 152/82 Code: 8480-6 BMI: 32.5 Code: 09100-7 Heart Rate 1: 60 bpm Height: 5' Weight: 169 lbs 04/11/2014 Blood Pressure 1: 120/80 Code: 8480-6 BMI: 33.4 Code: 34763-3 Heart Rate 1: 64 bpm Height: 5' Weight: 174 lbs 03/10/2014 Blood Pressure 1: 136/64 Code: 8480-6 BMI: 32.7 Code: 48778-9 Heart Rate 1: 76 bpm Height: 5' Weight: 170 lbs 02/02/2014 Blood Pressure 1: 160/76 Code: 8480-6 BMI: 32.7 Code: 67478-1 Heart Rate 1: 64 bpm Height: 5' Weight: 170 lbs 10/25/2013 Blood Pressure 1: 164/82 Code: 8480-6 BMI: 31.9 Code: 39416-8 Heart Rate 1: 60 bpm Height: 5' Weight: 166 lbs 08/24/2013 Blood Pressure 1: 138/88 Code: 8480-6 Heart Rate 1: 80 bpm Weight: 07/26/2013 Blood Pressure 1: 154/70 Code: 8480-6 Heart Rate 1: 72 bpm Weight: 162 lbs 06/30/2013 Blood Pressure 1: 182/86 Code: 8480-6 Heart Rate 1: 80 bpm Weight: 06/24/2013 Blood Pressure 1: 148/68 Code: 8480-6 BMI: 31.3 Code: 27213-8 Heart Rate 1: 72 bpm Height: 5' [...] 1: 142/88 Code: 8480-6 BMI: 30.6 Code: 01289-7 Heart Rate 1: 64 bpm Height: 5' [...] 1: 180/96 Code: 8480-6 BMI: 30.5 Code: 10096-5 Heart Rate 1: 76 bpm Height: 5' Respiratory Rate: 16 bpm Weight: 159 lbs 02/19/2012 Blood Pressure 1: 150/70 Code: 8480-6 Blood Pressure 2: 160/78 Code: 8480-6 Heart Rate 1: 76 bpm Respiratory Rate: 16 bpm Weight: 158 lbs 01/23/2012 Blood Pressure 1: 140/84 Code: 8480-6 BMI: 30.3 Code: 99677-9 Heart Rate 1: 68 bpm Height: 5' Respiratory Rate: 16 bpm SpO2: 98% Temperature: 37.0 (C ) / 98.6 (F) Weight: 158 lbs 01/02/2012 Blood Pressure 1: 142/92 Code: 8480-6 BMI: 30.7 Code: 72653-7 Heart Rate 1: 72 bpm Height: 5' Respiratory Rate: 16 bpm Weight: 160 lbs 12/20/2011 Blood Pressure 1: 170/84 Code: 8480-6 BMI: 30.0 Code: 44482-4 Heart Rate 1: 70 bpm Height: 5' [...] Factors me dication 02/16/2019 None Pertinent Findings maureen robbins 02/16/2019 'sometimes' Pertinent Findings Den ies dyspnea [...] in readings 10/14/2018 None Pertinent Findings maureen robbins 10/14/2018 "once in a while"- thinks that [...] exercise 01/22/2017 None Annual Medicare Wellness Exam José Miguel ng Stress usually irma effectively 01/22/2017 None [...] 06/12/2015 None rash Location-Head/Neck on the right anglican 06/12/2015 None rash Location-Head/Neck on the right [...] Factors allergen exposure 02/02/2014 None hypertension Quality [facility] 10/25/2013 None hypertension Onset and Resolution [...] Findings Denies tachycardia 08/24/2013 None hypertension Quality [facility] 07/26/2013 None hypertension Onset and Resolution [...] Factors position change 06/30/2013 None hypertension Quality [facility] 06/30/2013 None hypertension Onset and Resolution ongoing 06/30/2013 None hypertension Blood Pressure Values pt checking blood pressure - see scanned document 06/30/2013 149-178/82 hypertension Quality [facility] 06/24/2013 patient states that her T [...] leg 10/19/2012 states she fell dec or and rash started 2 days later rash [...] Encounters Encounter Performer Loca tion Codes Date ([id number]) 52297 EST. P ATIENT, LEVEL III Diagnosis: Essential (primary) hypertension[ICD10: I10] Diagnosis: Mixed hyperlipidemia[ICD10: E78.2] Zoya Varela MD, [facility] CPT- 4: 41758 06/14/2019 ([id number]) 47450 EST. P ATIENT, LEVEL III Diagnosis: Cough[ICD10: R05] Diagnosis: Acute bronchitis, unspecified[ICD10: J20.9] Kacy Varela MD, [facility] CPT-4: 36220 05/11/2019 ([id number]) 67897 EST. P ATIENT, LEVEL III Diagnosis: Essential (primary) hypertension[ICD10: I10] Diagnosis: Recurrent oral aphthae[ICD10: K12.0] Zoya Varela MD, [facility] CPT-4: 13465 02/16/2019 ([id number]) 64470 EST. P ATIENT, LEVEL III Diagnosis: Cough[ICD10: R05] Diagnosis: Acute upper respiratory infection, unspecified[ICD10: J06.9] Kacy Varela MD, [facility] CPT-4: 43329 01/21/2019 ([id number]) 10322 EST. P ATIENT, LEVEL IV Diagnosis: Essential (primary) hypertension[ICD10: I10] Diagnosis: Mixed hyperlipidemia[ICD10: E78.2] Zoya Varela MD, [facility] CPT- 4: 21851 10/14/2018 ([id number]) 75549 EST. P ATIENT, LEVEL III Diagnosis: Essential (primary) hypertension[ICD10: I10] Diagnosis: Other specified cardiac arrhythmias[ICD10: I49.8] Zoya Varela MD, [facility] CPT-4: 32329 09/22/2018 ([id number]) 87127 EST. P ATIENT, LEVEL IV Diagnosis: Essential (primary) hypertension[ICD10: I10] Diagnosis: Allergic rhinitis due to pollen[ICD10: J30.1] Diagnosis: Sciatica, right side[ICD10: M54.31] Zoya Varela MD, [facility] CPT- 4: 78980 08/17/2018 ([id number]) 67336 EST. 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 P ATIENT, LEVEL III Diagnosis: Acute upper respiratory infection, unspecified[ICD10: J06.9] Kacy Varela MD, [facility] CPT-4: 96810 05/04/2018 ([id number]) 60917 EST. P ATIENT, LEVEL IV Diagnosis: Essential (primary) hypertension[ICD10: I10] Diagnosis: Type 2 diabetes mellitus without complications[ICD10: E11.9] Diagnosis: Mixed hyperlipidemia[ICD10: E78.2] Diagnosis: Localized edema[ICD10: R60.0] Zoya Varela MD, [facility] CPT-4: 22155 02/04/2018 ([id number]) 35798 EST. P ATIENT, LEVEL IV Diagnosis: Essential (primary) hypertension[ICD10: I10] Zoya Varela MD, [facility] CPT-4: 15777 09/17/2017 ([id number]) 67646 EST. P ATIENT, LEVEL III Diagnosis: Allergic contact dermatitis due to plants, except food[ICD10: L23.7] Kacy Varela MD, [facility] CPT-4: 08917 06/23/2017 ([id number]) 10634 EST. P ATIENT, LEVEL IV Diagnosis: Essential (primary) hypertension[ICD10: I10] Diagnosis: Mixed hyperlipidemia[ICD10: E78.2] Zoya Varela MD, [facility] CPT- 4: 20370 05/13/2017 ([id number]) 66864 EST. P ATIENT, LEVEL III Diagnosis: Allergic contact dermatitis due to plants, except food[ICD10: L23.7] Kacy Varela MD, [facility] CPT-4: 47245 03/21/2017 77209 EST. PATIENT, LEVEL III Diagnosis: Bitten or stung by nonvenomous insect and other nonvenomous arthropods, initial encounter[ICD10: W57.XXXA] Diagnosis: Cellulitis of left lower limb[ICD10: L03.116] Laura Varela MD, [facility] CPT-4: 04964 03/19/2017 ([id number]) 86053 EST. P ATIENT, LEVEL IV Diagnosis: Type 2 diabetes mellitus without complications[ICD10: E11.9] Diagnosis: Essential (primary) hypertension[ICD10: I10] Diagnosis: Other specified epidermal thickening[ICD10: L85.8] Zoya Varela MD, [facility] CPT-4: 83542 01/14/2017 36051 EST. PATIENT, LEVEL III Diagnosis: Glossodynia[ICD10: K14.6] Kcay Varela MD, [facility] CPT- 4: 41013 09/23/2016 ([id number]) 24108 EST. P ATIENT, LEVEL IV Diagnosis: Encounter for screening mammogram for malignant neoplasm of breast[ICD10: Z12.31] Diagnosis: Encounter for immunization[ICD10: Z23] Zoya Varela MD, [facility] CPT-4: 21745 09/16/2016 ([id number]) 40896 EST. P ATIENT, LEVEL III Diagnosis: Diseases of lips[ICD10: K13.0] Diagnosis: Allergic rhinitis due to pollen[ICD10: J30.1] Kacy Varela MD, [facility] CPT-4: 86858 06/25/2016 ([id number]) 12842 EST. P ATIENT, LEVEL III Diagnosis: Essential (primary) hypertension[ICD10: I10] Kacy Varela MD, [facility] CPT-4: 32092 06/17/2016 58976 EST. PATIENT, LEVEL IV Diagnosis: Other acute sinusitis[ICD10: J01.80] Diagnosis: Acute laryngopharyngitis[ICD10: J06.0] Diagnosis: Other allergic rhinitis[ICD10: J30.89] Laura Varela MD, [facility] CPT-4: 66913 04/03/2016 ([id number]) 77840 EST. P ATIENT, LEVEL IV Diagnosis: Essential (primary) hypertension[ICD10: I10] Diagnosis: Localized edema[ICD10: R60.0] Diagnosis: Polyneuropathy, unspecified[ICD10: G62.9] Zoya Varela MD, [facility] CPT-4: 88167 03/13/2016 ([id number]) 89213 EST. P ATIENT, LEVEL IV Diagnosis: Essential (primary) hypertension[ICD10: I10] Diagnosis: Localized edema[ICD10: R60.0] Diagnosis: Type 2 diabetes mellitus without complications[ICD10: E11.9] Zoya Varela MD, [facility] CPT-4: 28138 01/30/2016 02927 EST. PATIENT, LEVEL IV Diagnosis: Localized edema[ICD10: R60.0] Laura Varela MD, [facility] CPT-4: 99008 12/21/2015 ([id number]) 78931 EST. P ATIENT, LEVEL III Diagnosis: Essential (primary) hypertension[ICD10: I10] Diagnosis: Allergic rhinitis due to pollen[ICD10: J30.1] Diagnosis: Cervicalgia[ICD10: M54.2] Kacy Varela MD, [facility] CPT- 4: 90744 10/09/2015 04021 EST. PATIENT, LEVEL II Diagnosis: Contact dermatitis[ICD9: 692.9] Kacy Varela MD, [facility] CPT- 4: 64682 06/12/2015 ([id number]) 38266 EST. P ATIENT, LEVEL III Diagnosis: ESSENTIAL HYPERTENSION[ICD9: 401.9] Diagnosis: DIABETES TYPE II[ICD9: 250.00] Diagnosis: Anxiety[ICD9: 300.00] Kacy Varela MD, [facility] CPT-4: 73486 06/05/2015 ([id number]) 59744 EST. P ATIENT, LEVEL IV Diagnosis: Anxiety[ICD9: 300.00] Diagnosis: ALLERGIC RHINITIS[ICD9: 477.9] Diagnosis: ESOPHAGEAL REFLUX[ICD9: 530.81] Kacy Varela MD, [facility] CPT- 4: 94124 05/15/2015 ([id number]) 41806 EST. P ATIENT, LEVEL III Diagnosis: ESSENTIAL HYPERTENSION[ICD9: 401.9] Zoya Varela MD, [facility] CPT- 4: 40726 02/06/2015 ([id number]) 48658 EST. P ATIENT, LEVEL IV Diagnosis: ESSENTIAL HYPERTENSION[ICD9: 401.9] Diagnosis: EDEMA[ICD9: 782.3] Diagnosis: DIABETES TYPE II[ICD9: 250.00] Zoya Varela MD, [facility] CPT-4: 67652 01/10/2015 ([id number]) 24885 EST. P ATIENT, LEVEL IV Diagnosis: ESSENTIAL HYPERTENSION[ICD9: 401.9] Diagnosis: DIABETES TYPE II[ICD9: 250.00] Zoya Varela MD, [facility] CPT-4: 74142 07/19/2014 ([id number]) 01973 EST. P ATIENT, LEVEL III Diagnosis: Left ankle pain[ICD9: 719.47] Kacy Varela MD, [facility] CPT- 4: 07462 06/17/2014 ([id number]) 86380 EST. P ATIENT, LEVEL III Diagnosis: ESSENTIAL HYPERTENSION[ICD9: 401.9] Diagnosis: Elevated blood sugar[ICD9: 790.29] Zoya Varela MD, [facility] CPT- 4: 90608 04/19/2014 ([id number]) 04024 EST. P ATIENT, LEVEL IV Diagnosis: ESSENTIAL HYPERTENSION[SNOMED: 06099002] Diagnosis: ESOPHAGEAL REFLUX[ICD9: 530.81] Zoya Varela MD, [facility] CPT-4: 77591 04/11/2014 ([id number]) 62187 EST. P ATIENT, LEVEL IV Diagnosis: ALLERGIC RHINITIS[ICD9: 477.9] Diagnosis: Anxiety[ICD9: 300.00] Diagnosis: Dyspnea[ICD9: 786.09] Diagnosis: ESOPHAGEAL REFLUX[ICD9: 530.81] Kacy Varela MD, [facility] CPT- 4: 02846 03/10/2014 ([id number]) 08793 EST. P ATIENT, LEVEL III Diagnosis: ALLERGIC RHINITIS[ICD9: 477.9] Diagnosis: ESSENTIAL HYPERTENSION[SNOMED: 94170791] Kacy Varela MD, [facility] CPT-4: 55940 02/02/2014 ([id number]) 46248 EST. P ATIENT, LEVEL III Diagnosis: ESSENTIAL HYPERTENSION[SNOMED: 61557286] Diagnosis: Skin irritation[ICD9: 709.9] Zoya Varela MD, [facility] CPT-4: 05946 10/25/2013 ([id number]) 08583 EST. P ATIENT, LEVEL III Diagnosis: HYPERLIPIDEMIA[ICD9: 272.4] Diagnosis: ESSENTIAL HYPERTENSION[SNOMED: 44113544] Diagnosis: EDEMA[ICD9: 782.3] Diagnosis: Encounter for long-term (current) use of other medications[ICD9: V58.69] Zoya Varela MD, [facility] CPT-4: 27913 08/24/2013 ([id number]) 40757 EST. P ATIENT, LEVEL III Diagnosis: ESSENTIAL HYPERTENSION[SNOMED: 46078285] Zoya Varela MD, C CPT-4: 64121 07/26/2013 ([id number]) 99262 EST. P ATIENT, LEVEL III Diagnosis: ESSENTIAL HYPERTENSION[SNOMED: 53543591] Zoya Varela MD, C CPT-4: 22703 06/30/2013 ([id number]) 22870 EST. P ATIENT, LEVEL III Diagnosis: ESSENTIAL HYPERTENSION[SNOMED: 19542724] Zoya Varela MD, C CPT-4: 46022 06/24/2013 ([id number]) 05315 EST. P ATIENT, LEVEL IV Diagnosis: ESSENTIAL HYPERTENSION[SNOMED: 62164837] Diagnosis: Leg pain[ICD9: 729.5] Diagnosis: Leg swelling[ICD9: 729.81] Zoya Varela MD, [facility] CPT-4: 01566 12/01/2012 ([id number]) 84535 EST. P ATIENT, LEVEL III Diagnosis: Shingles[ICD9: 053.9] Zoya Varela MD, [facility] CPT-4: 56618 10/19/2012 ([id number]) 94167 EST. P ATIENT, LEVEL IV Diagnosis: EDEMA[ICD9: 782.3] Diagnosis: ESSENTIAL HYPERTENSION[SNOMED: 07747636] Zoya Varela MD, C CPT-4: 15272 10/07/2012 ([id number]) 09491 EST. P ATIENT, LEVEL IV Diagnosis: ESSENTIAL HYPERTENSION[SNOMED: 94873852] Diagnosis: EDEMA[ICD9: 782.3] Diagnosis: Irritable bowel disease[ICD9: 564.1] Zoya Vareal MD, [facility] CPT-4: 34923 2012 ([id number]) 43551 EST. P ATIENT, LEVEL III Diagnosis: ESSENTIAL HYPERTENSION[SNOMED: 00659475] Zoya Varela MD, C CPT-4: 55153 08/18/2012 ([id number]) 50305 EST. P ATIENT, LEVEL III Diagnosis: ESSENTIAL HYPERTENSION[SNOMED: 10310848] Zoya Varela MD, [facility] CPT-4: 41877 08/04/2012 ([id number]) 60670 EST. P ATIENT, LEVEL IV Diagnosis: ESSENTIAL HYPERTENSION[SNOMED: 21342518] Diagnosis: Lumbago[ICD9: 724.2] Diagnosis: HYPERLIPIDEMIA[ICD9: 272.4] Zoya Varela MD, [facility] CPT-4: 55019 07/01/2012 ([id number]) 22728 EST. P ATIENT, LEVEL III Diagnosis: ESSENTIAL HYPERTENSION[SNOMED: 98853478] Zoya Varela MD, [facility] CPT-4: 44856 05/20/2012 ([id number]) 08142 EST. P ATIENT, LEVEL IV Diagnosis: ESSENTIAL HYPERTENSION[SNOMED: 66982814] Diagnosis: Hot flash, menopausal[ICD9: 627.2] Zoya Varela MD, [facility] CPT- 4: 91181 04/20/2012 58565 EST. PATIENT, LEVEL IV Diagnosis: SPASM OF MUSCLE[ICD9: 728.85] Diagnosis: Back pain[ICD9: 724.5] Diagnosis: ESSENTIAL HYPERTENSION[SNOMED: 69299659] Zoya Varela MD, [facility] CPT-4: 66942 03/10/2012 ([id number]) 62291 EST. 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 P ATIENT, LEVEL III Diagnosis: ESSENTIAL HYPERTENSION[SNOMED: 94919387] Zoya Varela MD, C CPT-4: 59270 02/19/2012 60832 EST. PATIENT, LEVEL IV Diagnosis: ESSENTIAL HYPERTENSION[SNOMED: 21928833] Diagnosis: Cough[ICD9: 786.2] Kacy Josué Varela MD, [facility] CPT-4: 45382 01/23/2012 ([id number]) 52792 EST. P ATIENT, LEVEL IV Diagnosis: HYPERLIPIDEMIA[ICD9: 272.4] Diagnosis: ESSENTIAL HYPERTENSION[SNOMED: 10142479] Zoya Varela MD, C CPT-4: 60466 01/02/2012 OFFICE VISIT, NEW - LEVEL 4 Diagnosis: ESSENTIAL HYPERTENSION[SNOMED: 87079147] Diagnosis: HYPERLIPIDEMIA[ICD9: 272.4] Diagnosis: IMPACTED CERUMEN[ICD9: 380.4] Diagnosis: Muscle spasm[ICD9: 728.85] Diagnosis: CHRONIC TENSION HEADACHE[ICD9: 339.12] Diagnosis: Neck pain, chronic[ICD9: 723.1] Diagnosis: Change in skin mole[ICD9: 216.9] Zoya Varela MD, [facility] CPT-4: 16362 12/20/2011 Plan of Care Planned Activity Notes [...] assure normal liver response to medications. 06/14/2019 Patient Education: Patient Medication Summary Completed 06/14/2019 Patient Education: Cholesterol Management Completed 06/14/2019 Visit Plan: Bronchitis - acute case of bronchitis identified. Pt has been given antibiotics, breathing treatments as appropriate, and pt has been instructed to call if symptoms are not improved, or if symptoms acutely worsen. 05/11/2019 Appointment: Kacy Moses WPtel: [phone] [phone] (15 min) Moderate 05/11/2019 Patient Education: Patient [...] cold sores. 02/16/2019 Appointment: Zoya Varela WPtel: [facility] (15 min) Moderate 02/16/2019 Patient Education: Patient [...] plan. 01/21/2019 Appointment: Kacy Moses WPtel: [phone] [phone] [place] (15 min) Moderate 01/21/2019 Patient Education: Patient Medication Summary Completed 01/21/2019 Appointment: Zoya Varela WPtel: [phone] [facility] (15 min) Moderate 12/15/2018 Visit Plan: Hypertension [...] to medications. 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 09/22/2018 Appointment: Zoya Varela WPtel: [facility] (15 min) Moderate 09/22/2018 Patient Education: Patient Medication Summary Completed 09/22/2018 Appointment: Zoya Varela WPtel: [facility] (15 min) Moderate 09/09/2018 Visit Plan: Hypertension [...] she can be seen by Oncology in [place]. 06/08/2018 Appointment: [phone] [place] (15 min) Moderate 06/08/2018 Patient Education: Patient Medication Summary Completed 06/08/2018 Visit Plan: URI - Pt advised to inc rease fluids, vitamin C. Discussed natural and expected course of this diagnosis and need to alert me if symptoms do not follow expected course, or if any worse. RX sent to patient's pharmacy. 05/04/2018 Appointment: [phone] [place] (30 min) Complex 05/04/2018 Patient Education: [...] lower extremities. 02/04/2018 Appointment: Zoya Varela WPtel: [facility] (15 min) Moderate 02/04/2018 Patient Education: Patient [...] Summary Completed 02/03/2018 Appointment: Laura Velasco WPtel: [facility] [facility] - Annual Wellness Visit 01/28/2018 Appointment: Zoya Varela WPtel: [facility] (15 min) Moderate 01/15/2018 Visit Plan: Hypertension [...] Dr. Madison. 09/17/2017 Appointment: Zoya Varela WPtel: [phone] [facility] (15 min) Moderate 09/17/2017 Patient Education: Patient Medication Summary Completed 09/17/2017 Patient Education: Obesity Completed 09/17/2017 Patient Education: Hypertension Completed 09/17/2017 Care Plan: SCREENINGMAMMOGRAPHYDIGITAL LOINC : 34861-5 Pending 09/17/2017 Visit Plan: Poison Sarah -kenalog inj ection today in the office-start prednisone tomorrow pt is to use topical treatments as directed. Pt is cleanse clothing in hot water with soap, and call if symptoms do not improve or if they worsen. 06/23/2017 Appointment: [phone] (15 min) Moderate 06/23/2017 Patient Education: Patient [...] to medications. 05/13/2017 Appointment: Zoya Varela WPtel: [phone] [facility] (15 min) Moderate 05/13/2017 Patient Education: Patient [...] they worsen. 03/21/2017 Appointment: Kacy Moses WPtel: [phone] [phone] [place] (15 min) Moderate 03/21/2017 Patient Education: Patient [...] in pain. 03/19/2017 Appointment: Laura Velasco WPtel: [phone] [facility] (15 min) Moderate 03/19/2017 Patient Education: [...] hearing. 01/22/2017 Appointment: Laura Velasco WPtel: [phone] [facility] [facility] - Annual Wellness Visit 01/22/2017 Appointment: Nurse Visit 01/22/2017 Patient Education: Patient Medication Summary Completed 01/22/2017 Visit Plan: Diabetes Mellitus - con trolled - per recent FSBS reports. I have [...] at home. 01/14/2017 Appointment: Zoya Varela WPtel: [facility] (15 min) Moderate 01/14/2017 Patient Education: Patient [...] of plan. 09/23/2016 Appointment: Kacy Moses WPtel: [phone] [phone] [place] (15 min) Moderate 09/23/2016 Patient Education: [...] to medications. 09/16/2016 Appointment: Z[facility] Varela [facility]: [phone] (15 min) Moderate 09/16/2016 Patient Education: Patient Medication Summary Completed 09/16/2016 Patient Education: Obesity Completed 09/16/2016 Care Plan: SCREENINGMAMMOGRAPHYDIGITAL LOINC : 74562-1 Pending 09/16/2016 Visit Plan: Cracked/painful lips-ba cterial [...] any worse. 06/25/2016 Appointment: [facility] Moses [facility]: [phone] [place] (15 min) Moderate 06/25/2016 Patient Education: Patient [...] allergy spray. 04/03/2016 Appointment: Kacy Moses WPtel: [phone] (30 min) Complex 04/03/2016 Patient Education: [...] Hypertension Completed 03/13/2016 Appointment: Zoya Varela WPtel: [facility] [place] (15 min) Moderate 02/28/2016 Appointment: Zoya Varela WPtel: [facility] (15 min) Moderate 02/01/2016 Visit Plan: Hypertension [...] for treatment. 01/30/2016 Appointment: Z[facility] Varela [facility]Ptel: [phone] [facility] (15 min) Moderate 01/30/2016 Patient Education: Patient [...] at home. 02/06/2015 Appointment: Zoya Varela WPtel: [facility] Follow up 02/06/2015 Patient Education: Patient Medication [...] edema. 01/10/2015 Appointment: Zoya Varela WPtel: [phone] [facility] Sick 01/10/2015 Patient Education: Patient Medication Summary Completed [...] controlled. 07/19/2014 Appointment: Zoya Varela WPtel: [phone] [facility] Follow up 07/19/2014 Patient Education: Patient Medication Summary Completed 07/19/2014 Patient Education: Hypertension Completed 07/19/2014 Care Plan: SCREENINGMAMMOGRAPHYDIGITAL INC : 79097-9 Ordered 07/19/2014 Visit Plan: Left ankle pain-sprain- [...] home. 04/19/2014 Appointment: K[facility] Moses [facility]el: [phone] Diabetic education 04/19/2014 Patient Education: Patient Medication [...] to medications. 04/11/2014 Appointment: Zoya Varela [facility]Ptel: [phone] Follow up 04/11/2014 Patient Education: Patient Medication [...] spray in the nasal steroid allergy spray. Vqxanhz-pnyrrdhjnnmf-zluykzj xanax at bedtime Esophageal Reflux - the patient has been counseled against excessive intake of caffiene, spicy foods, peppermint, and cinnamon - all of which can exacerbate esophageal reflux. The patient is to take medications as prescribed and call the office if the symptoms are not improving. 03/10/2014 Appointment: Z[facility] Varela [facility]Ptel: [phone] Other 03/10/2014 Patient Education: Patient Medication Summary [...] allergy spray. 02/02/2014 Appointment: Kacy Moses WPtel: [phone] Other 02/02/2014 Patient Education: Patient Medication Summary [...] site. 10/25/2013 Appointment: Z[facility] Varela [facility]Ptel: [phone] Follow up 10/25/2013 Patient Education: Patient Medication [...] AT BEDTIME 08/24/2013 Appointment: Zoya Varela [facility]Ptel: [phone] [facility] Follow up 08/24/2013 Patient Education: Patient Medication [...] concerns. 07/26/2013 Appointment: Zoya Varela [facility]Ptel: [phone] Follow up 07/26/2013 Patient Education: Patient Medication [...] IMPROVE. 06/30/2013 Appointment: Zoya Varela [facility]Ptel: [phone] [facility] [facility] 06/30/2013 Patient Education: Patient Medication Summary Completed [...] acute concerns. 06/24/2013 Appointment: Kacy Moses WPtel: [phone] [phone] Follow up 06/24/2013 Patient Education: Patient Medication Summary Completed 06/24/2013 Patient Education: Hypertension Completed 06/24/2013 Appointment: Z[facility] Varela [facility]Ptel: [phone] Other 03/23/2013 Visit Plan: Hypotension - pt is on chronic antihypertensive medication - the medication has been adjusted down to attempt to alleviate the low blood pressures. Leg pain - Leg swelling - pt to have ultrasound on her right lower leg due to post-operative swelling and pain. 12/01/2012 Appointment: Zoya Varela WPtel: [phone] [id number] Follow up 12/01/2012 Patient Education: Patient Medication Summary Completed 12/01/2012 Patient Education: Hypertension Completed 12/01/2012 Appointment: Zoya Varela WPtel: [phone] [id number] Follow up 10/20/2012 Visit Plan: Shingles - [...] considered contagious. 10/19/2012 Appointment: Zoya Varela WPtel: [phone] [id number] Other 10/19/2012 Patient Education: Patient Medication Summary [...] peripheral edema. 10/07/2012 Appointment: Kacy Moses WPtel: [id number] [place] [address] Other 10/07/2012 Patient Education: Hypertension Completed 10/07/2012 [...] peripheral edema. 2012 Appointment: Zoya Varela WPtel: [facility] [address] Other 2012 Patient Education: Patient Medication [...] THE EVENING. 08/18/2012 Appointment: Zoya Varela WPtel: [id number] Follow up 08/18/2012 Patient Education: Patient Medication [...] knees. 08/04/2012 Appointment: Zoya Varela WPtel: [phone] [id number] Follow up 08/04/2012 Patient Education: Patient Medication [...] twice daily. 07/01/2012 Appointment: [phone] Other 07/01/2012 Patient Education: Patient Medication Summary [...] two weeks 05/20/2012 Appointment: Zoya Varela WPtel: [phone] [facility] Follow up 05/20/2012 Patient Education: Patient Medication Summary Completed 05/20/2012 Patient Education: High Blood Pressure: Essential Hypertension Completed 05/20/2012 Appointment: Zoya Varela WPtel: [phone] [facility] Other 05/11/2012 Visit Plan: Hypertension - uncontro [...] bid dosing. 04/20/2012 Appointment: Zoya Varela WPtel: [id number] Follow up 04/20/2012 Patient Education: Patient Medication [...] few weeks. 03/10/2012 Appointment: Zoya Varela WPtel: [phone] [facility] Other 03/10/2012 Patient Education: Patient Medication Summary [...] with codeine. 02/25/2012 Appointment: Zoya Varela WPtel: [address] [place] [address] Other 02/25/2012 Patient Education: Patient Medication Summary [...] the office. 02/19/2012 Appointment: Zoya Varela WPtel: [facility] [address] Other 02/19/2012 Patient Education: Patient Medication Summary [...] the office 01/23/2012 Appointment: Kacy Moses WPtel: [address] [place], [place] [phone] [facility] 01/23/2012 Patient Education: Patient Medication Summary Completed [...] by mouth TWICE DAILY. 01/02/2012 Appointment: [facility]al [facility]: [phone] [place] Other 01/02/2012 Patient Education: Patient Medication Summary [...] 2 wks. 12/20/2011 Appointment: [facility] V[facility]la [facility]el: [phone] [place] New Patient 12/20/2011 Patient Education: Patient Medication Summary Completed 12/20/2011 Patient Education: High Blood Pressure: Essential Hypertension Completed 12/20/2011 Instructions Comment . Low back pain- the patient was [...] to assure normal liver response to medications. INCREASE YOUR METOPR OLOL TARTATE 100MG TO [...] pain-muscle spasms-refill flexeril for prn use . Edema - pt has bee n [...] heart rate readings in two weeks . Left ankle pain-sp rain-recommend rest ice [...] - continue with treatments per Dr. Madison. ANDERS DE LUNA . Bronchitis - acute case of bronchitis identified. Pt has been given antibiotics, breathing treatments as appropriate, and pt has been instructed to call if symptoms are not improved, or if symptoms acutely worsen. PT TO CUT AMLODIPINE TO 1/2 OF [...] post-operative swelling and pain. . Hypertension - unc ontrolled - the [...] pt is to call for acute concerns. 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 no change in your me dications at [...] - can use PRN for cold sores. CLARITIN 10MG DAILY PEPCID 20MG TWICE DAILY [...] for treatment. . If the clonidine p [facility] has the blood pressures at or below 120/80, then the pt is to stop her norvasc and call the clinic, pt is to rtc in 2 weeks. Apply the pennsaid 15 drops to each knee three times daily, rub in the pennsaid to hands after each application on the knees. . Hypertension - unc ontrolled - the [...] week, then increase to twice daily. . Cracked/painful li ps-bacterial culture today in [...] she can be seen by Oncology in [place]. . Tick - tick with h ead [...] spray in the nasal steroid allergy spray. Elhipmz-qwatfokpebfi-lswzgul xanax at bedtime Esophageal Reflux - the [...] assure normal liver response to medications. . Sinusitis - Pt has acute infection [...]
--- OUTSIDE RECORDS SUMMARY | 2020-05-26 02:40 | XMS REPORT | CCD ---
Author Author Natali Varela Organization [facility] Address [address] [place] [address] Phone Care Team Providers Care Director Of Nursing Name Role Phone PP Unavailable CCM Unavailable Summary Purpose Interface Exchange Insurance Providers Payer name Policy type / Coverage type Covered green party ID Effective Begin Date Effective End Date WPS Medicare Part B Medicare Part B [id number] Unknown [employer] Medicare Part B [id number] Unknown Family history Mother Diagnosis Age At Onset Liver Failure Unknown Diabetes mellitus Type 2 Unknown Hyperlipidemia Unknown Hypertension Unknown Cancer Unknown Arthritis Unknown Father Diagnosis Age At Onset Liver Failure Unknown Cancer Unknown Social History Social History Element Codes Description Effective Dates Marital status Unknown M arried 12/12/2011 Number of children Unknown 3 12/12/[address]: 8885797 Former smoker quit in 199212/12/2011 Allergies, Adverse [...] ICD-9: 401.1 ICD-10: I10 Active 09/22/2018 Unknown 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 Active 02/16/2019 Unknown Acute upper respirat ory infection, unspecified ICD-9: 465.9 ICD-10: J06.9 Active 05/04/2018 Unknown Cough ICD-9: 786.2 ICD-10: R05 Active 01/21/2019 Unknown Mixed hyperlipidemia ICD-9: 272.2 ICD-10: E78.2 Active 05/13/2017 Unknown Other specified card iac arrhythmias ICD-9: [...] hypertension ICD-9: 401.1 ICD-10: I10 09/22/2018 Active 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 02/16/2019 Active Acute upper respirat ory infection, unspecified ICD-9: 465.9 ICD-10: J06.9 05/04/2018 Active Cough ICD-9: 786.2 ICD-10: R05 01/21/2019 Active Mixed hyperlipidemia ICD-9: 272.2 ICD-10: E78.2 05/13/2017 Active Other specified card iac arrhythmias ICD-9: [...] Date Stop Date Sta tus Fill Instructions tramadol 50 mg tablet RxNorm: 488795 1-2 Tablet(s) PO Q8 as needed 05/04/2019 07/02/2019 Ac tive prednisone 10 mg tab lets in a dose pack RxNorm: 434383 1 Tablet(s) PO UD 04/12/2019 04/17/2019 In active 6-5-4-3-2-1 amlodipine 5 mg tablet RxNorm: 508139 TAKE ONE TABLET BY MOUTH DAILY 03/26/2019 12/20/2019 Ac tive atorvastatin 20 mg t ablet RxNorm: 376909 TAKE ONE TABLET BY [facility] DAILY 03/26/2019 09/21/2019 Ac tive metoprolol tartrate 100 mg tablet RxNorm: 221530 1.5 Tablet(s) BID 02/16/2019 04/10/2020 Active doxazosin 4 mg tablet RxNorm: 637445 1 Tablet(s) UD 1.5 tab in AM and 1 tab a t hs 02/16/2019 09/13/2019 Ac tive acyclovir 800 mg tablet RxNorm: 613226 1 Tablet(s) PO TID take for cold sore ou tbreaks 02/16/2019 04/26/2019 Inactive Xanax 0.25 mg tablet RxNorm: 305812 1/2-1 Tablet(s) PO QDAY PRN 02/03/2019 05/03/2019 Inactive cyclobenzaprine 10 m g tablet RxNorm: 701498 TAKE ONE TABLET BY [facility] EVERY 8 HOURS NEEDED 01/27/2019 03/07/2019 Inactive doxazosin 4 mg tablet RxNorm: 333060 Tablet(s) TAKE ONE TABLET BY MOUTH TWO T IMES A DAY 01/21/2019 02/15/2019 Inactive doxazosin 4 mg tablet RxNorm: 975942 Tablet(s) TAKE ONE AND ONE-HALF (1 & 1/2 ) TABLET BY MOUTH BY MOUTH TWO TIMES A DAY 11/12/2018 01/20/2019 Inactive cyclobenzaprine 10 m g tablet RxNorm: 968371 TAKE ONE TABLET BY [facility] EVERY 8 HOURS NEEDED 11/12/2018 12/01/2018 Inactive tramadol 50 mg tablet RxNorm: 392207 1-2 Tablet(s) PO Q8 as needed 10/02/2018 11/30/2018 In active metoprolol tartrate 100 mg tablet RxNorm: 402074 1 Tablet(s) BID 09/22/2018 02/15/2019 Inactive metoprolol tartrate 100 mg tablet RxNorm: 218268 TAKE ONE AND ONE-HALF (1 1/2) TABLETS BY MOUTH EVERY MORNING AND TAKE TWO TABLETS BY MOUTH EVERY EVENING 09/21/2018 09/21/2018 In active Xanax 0.25 mg tablet RxNorm: 526673 1/2-1 Tablet(s) PO QDAY PRN 08/19/2018 05/03/2019 Inactive cyclobenzaprine 10 m g tablet RxNorm: 597622 TAKE ONE TABLET BY MO [facility] EVERY 8 HOURS NEEDED 07/01/2018 08/09/2018 Inactive atorvastatin 20 mg t ablet RxNorm: 709640 TAKE ONE TABLET BY MO [facility] DAILY 06/29/2018 12/25/2018 In active atorvastatin 20 mg t ablet RxNorm: 152705 TAKE ONE TABLET BY MO [facility] DAILY 06/29/2018 06/28/2018 In active pilocarpine 5 mg tablet RxNorm: 6545029 1 Tablet(s) PO BID 06/09/2018 06/08/2018 Inactive pilocarpine 5 mg tablet RxNorm: 3253298 1 Tablet(s) PO BID for dry mouth 06/09/2018 09/21/2018 In active Evoxac 30 mg capsule RxNorm: 791366 1 Capsule(s) PO BID as needed dry mouth 06/08/2018 06/08/2018 In active may substitute generic cyclobenzaprine 10 m g tablet RxNorm: 820177 TAKE ONE TABLET BY MO [facility] EVERY 8 HOURS NEEDED 05/14/2018 06/30/2018 Inactive amoxicillin 500 mg c apsule RxNorm: 352381 1 Capsule(s) PO BID 05/04/2018 05/13/2018 Inactive amoxicillin 500 mg c apsule RxNorm: 096057 1 Capsule(s) PO BID 05/04/2018 05/03/2018 Inactive tramadol 50 mg tablet RxNorm: 602036 1-2 Tablet(s) PO Q8 as needed 04/24/2018 06/21/2018 In active Kenalog 40 mg/mL sylvia pension for injection RxNorm: 7532185 Milliliter(s) Inj 04/24/2018 04/24/2018 In active amlodipine 5 mg tablet RxNorm: 388096 Tablet(s) TAKE ONE TABLET BY MOUTH DAILY 04/02/2018 03/25/2019 In active Xanax 0.25 mg tablet RxNorm: 277300 1/2-1 Tablet(s) PO QDAY PRN 04/02/2018 10/13/2018 Inactive metoprolol tartrate 100 mg tablet RxNorm: 167483 TAKE ONE AND ONE-HALF (1 1/2) TABLETS BY MOUTH EVERY MORNING AND TAKE TWO TABLETS BY MOUTH EVERY EVENING 02/25/2018 09/20/2018 In active Keflex 500 mg capsule RxNorm: 682975 1 Capsule(s) PO TID 02/06/2018 02/15/2018 Inactive Keflex 500 mg capsule RxNorm: 834235 1 Capsule(s) PO TID 02/06/2018 02/05/2018 Inactive Zithromax Z-Kush 250 mg tablet RxNorm: 061668 1 Tablet(s) PO UD 02/02/2018 02/06/2018 Inactive 2 tabs on day 1 then 1 tab daily on days 2-5 doxazosin 4 mg tablet RxNorm: 062792 TAKE ONE AND ONE-HALF (1 & 1/2) TABLET B Y MOUTH BY MOUTH TWO TIMES A DAY 01/16/2018 11/11/2018 Inactive atorvastatin 20 mg t ablet RxNorm: 405839 TAKE ONE TABLET BY MO [facility] DAILY 12/31/2017 06/28/2018 In active furosemide 20 mg tablet RxNorm: 431206 TAKE ONE TABLET BY MOUTH DAILY NEEDED FOR EDEMA 12/26/2017 06/23/2018 Inactive potassium chloride E R 10 mEq tablet,extended release RxNorm: 356952 TAKE ONE TABLET BY MOUTH NEEDED WITH LASIX 12/26/2017 06/23/2018 Inactive Xanax 0.25 mg tablet RxNorm: 541736 1/2-1 Tablet(s) PO QDAY PRN 11/27/2017 08/18/2018 Inactive cyclobenzaprine 10 m g tablet RxNorm: 944644 TAKE ONE TABLET BY MO [facility] EVERY 8 HOURS NEEDED 11/21/2017 02/08/2018 Inactive metoprolol tartrate 100 mg tablet RxNorm: 987527 TAKE ONE AND ONE-HALF (1 1/2) TABLETS BY MOUTH EVERY MORNING AND TAKE TWO TABLETS BY MOUTH EVERY EVENING 10/28/2017 02/24/2018 In active tramadol 50 mg tablet RxNorm: 480774 1-2 Tablet(s) PO Q8 as needed 10/28/2017 05/03/2019 In active cyclobenzaprine 10 m g tablet RxNorm: 391200 TAKE ONE TABLET BY MO [facility] EVERY 8 HOURS NEEDED 08/27/2017 10/25/2017 Inactive Xanax 0.25 mg tablet RxNorm: 123153 1/2-1 Tablet(s) PO QDAY PRN 08/04/2017 04/01/2018 Inactive cyclobenzaprine 10 m g tablet RxNorm: 297546 TAKE ONE TABLET BY MO [facility] EVERY 8 HOURS NEEDED 07/28/2017 08/16/2017 Inactive metoprolol tartrate 100 mg tablet RxNorm: 620393 TAKE ONE AND ONE-HALF (1 & 1/2) TABLET BY MOUTH EVERY MORNING AND TAKE TWO TABLETS BY MOUTH EVERY EVENING 07/28/2017 10/25/2017 In active cyclobenzaprine 10 m g tablet RxNorm: 439560 TAKE ONE TABLET BY MO [facility] EVERY 8 HOURS NEEDED 06/30/2017 07/19/2017 Inactive prednisone 10 mg tab lets in a dose pack RxNorm: 752935 1 Tablet(s) PO UD 06/23/2017 06/28/2017 In active 6-5-4-3-2-1 mupirocin 2 % topica l ointment RxNorm: 022300 1 Application TOP BID 06/23/2017 07/02/2017 Inactive Kenalog 40 mg/mL sylvia pension for injection RxNorm: 3892584 Milliliter(s) Inj 06/23/2017 06/23/2017 In active cyclobenzaprine 10 m g tablet RxNorm: 933770 TAKE ONE TABLET BY MO [facility] EVERY 8 HOURS NEEDED 06/09/2017 06/28/2017 Inactive meclizine 25 mg tablet RxNorm: 618638 1 Tablet(s) PO Q6 PRN as needed 1/2 - 1 pill every 6 hours as needed for vertigo 06/03/2017 07/14/2017 Inactive atorvastatin 20 mg t ablet RxNorm: 035952 TAKE ONE TABLET BY MO [facility] DAILY 05/30/2017 11/25/2017 In active amlodipine 5 mg tablet RxNorm: 084089 TAKE ONE TABLET BY MOUTH DAILY 05/15/2017 04/01/2018 In active cyclobenzaprine 10 m g tablet RxNorm: 688361 TAKE ONE TABLET BY MO [facility] EVERY 8 HOURS NEEDED 05/07/2017 05/26/2017 Inactive tramadol 50 mg tablet RxNorm: 112362 1-2 Tablet(s) PO Q8 as needed 04/07/2017 05/03/2019 In active cyclobenzaprine 10 m g tablet RxNorm: 263487 TAKE ONE TABLET BY MO [facility] EVERY 8 HOURS NEEDED 04/07/2017 04/26/2017 Inactive Xanax 0.25 mg tablet RxNorm: 958556 1/2-1 Tablet(s) PO QDAY PRN 04/04/2017 06/02/2017 Inactive metoprolol tartrate 100 mg tablet RxNorm: 994041 TAKE ONE AND ONE-HALF (1 & 1/2) TABLET BY MOUTH EVERY MORNING AND TAKE TWO TABLETS BY MOUTH EVERY EVENING 03/28/2017 07/25/2017 In active prednisone 10 mg tab lets in a dose pack RxNorm: 420518 1 Tablet(s) PO UD 03/21/2017 03/26/2017 In active 6-5-4-3-2-1 Kenalog 40 mg/mL sylvia pension for injection RxNorm: 8334919 2 Milliliter(s) Inj 03/21/2017 03/21/2017 In active doxycycline hyclate 100 mg capsule RxNorm: 8070447 1 Capsule(s) PO BID 03/19/2017 03/28/2017 In active cyclobenzaprine 10 m g tablet RxNorm: 372549 TAKE ONE TABLET BY MO [facility] EVERY 8 HOURS NEEDED 02/25/2017 03/16/2017 Inactive triamcinolone aceton pineda 0.1 % topical ointment RxNorm: 0858386 1 Application TOP TI D 02/21/2017 02/20/2017 Inactive triamcinolone aceton pineda 0.1 % topical ointment RxNorm: 5151783 1 Application TOP TI D 02/21/2017 03/02/2017 Inactive doxazosin 4 mg tablet RxNorm: 053155 TAKE ONE AND ONE-HALF (1 & 1/2) TABLET B Y MOUTH BY MOUTH TWO TIMES A DAY 02/14/2017 01/09/2018 Inactive cyclobenzaprine 10 m g tablet RxNorm: 556810 TAKE ONE TABLET BY MO [facility] EVERY 8 HOURS NEEDED 01/27/2017 02/15/2017 Inactive ammonium lactate 12 % topical cream RxNorm: 640849 1 Application TOP BID 01/14/2017 02/12/2017 In active dispense one bottle of the cream potassium chloride E R 10 mEq tablet,extended release RxNorm: 095791 1 Tablet(s) PO PRN as needed with lasix 11/13/2016 12/25/2017 Inactive prn swelling furosemide 20 mg tablet RxNorm: 588018 1 Tablet(s) PO daily as needed edema 11/13/2016 01/11/2017 In active metoprolol tartrate 100 mg tablet RxNorm: 042610 TAKE ONE AND ONE-HALF (1 & 1/2) TABLET BY MOUTH EVERY MORNING AND TAKE TWO TABLETS BY MOUTH EVERY EVENING 11/01/2016 03/27/2017 In active atorvastatin 20 mg t ablet RxNorm: 286949 TAKE ONE TABLET BY MO [facility] DAILY 10/31/2016 04/28/2017 In active cyclobenzaprine 10 m g tablet RxNorm: 570969 TAKE ONE TABLET BY MO [facility] EVERY 8 HOURS NEEDED 10/25/2016 12/03/2016 Inactive Lyrica 25 mg capsule RxNorm: 958754 1 Tablet(s) PO BID 09/23/2016 01/13/2017 Inactive Lyrica 50 mg capsule RxNorm: 453127 1 Capsule(s) PO BID 09/16/2016 01/13/2017 Inactive amlodipine 5 mg tablet RxNorm: 969338 Tablet(s) TAKE ONE TABLET BY MOUTH DAILY 08/28/2016 05/14/2017 In active cyclobenzaprine 10 m g tablet RxNorm: 882993 TAKE ONE TABLET BY MO [facility] EVERY 8 HOURS NEEDED 08/05/2016 09/13/2016 Inactive Xanax 0.25 mg tablet RxNorm: 654812 1/2-1 Tablet(s) PO QDAY PRN 07/16/2016 04/03/2017 Inactive amlodipine 5 mg tablet RxNorm: 223297 TAKE ONE TABLET BY MOUTH DAILY 06/28/2016 08/26/2016 In active metoprolol tartrate 100 mg tablet RxNorm: 819436 Tablet(s) TAKE ONE AN D ONE-HALF (1 & 1/2) TABLET BY MOUTH EVERY MORNING AND TAKE TWO TABLETS BY MOUTH EVERY EVENING 05/02/2016 05/02/2016 Inactive metoprolol tartrate 100 mg tablet RxNorm: 867081 Tablet(s) PO TAKE ONE AND ONE-HALF (1 & 1/2) TABLET BY MOUTH EVERY MORNING AND TAKE TWO TABLETS BY MOUTH EVERY EVENING 05/02/2016 05/01/2016 Inactive metoprolol tartrate 100 mg tablet RxNorm: 344066 Tablet(s) PO TAKE ONE AND ONE-HALF (1 & 1/2) TABLET BY MOUTH EVERY MORNING AND TAKE TWO TABLETS BY MOUTH EVERY EVENING 05/02/2016 10/28/2016 Inactive atorvastatin 20 mg t ablet RxNorm: 325259 TAKE ONE TABLET BY MO [facility] DAILY 04/25/2016 10/21/2016 In active tramadol 50 mg tablet RxNorm: 508929 1-2 Tablet(s) PO Q8 as needed 04/25/2016 10/27/2017 In active cyclobenzaprine 10 m g tablet RxNorm: 488296 Tablet(s) PO TAKE ONE TABLET BY MOUTH EVERY 8 HOURS NEEDED 04/18/2016 06/16/2016 Inactive Kenalog 40 mg/mL sylvia pension for injection RxNorm: 4805586 1 Milliliter(s) Inj 04/04/2016 04/04/2016 In active Phenergan with Codei ne Syrup RxNorm: PO 04/03/2016 02/15/2019 Inactive Zithromax Z-Kush 250 mg tablet RxNorm: 066053 1 Tablet(s) PO UD 04/03/2016 04/07/2016 Inactive 2 tabs on day 1 then 1 tab daily on days 2-5 amlodipine 5 mg tablet RxNorm: 117605 TAKE ONE TABLET BY MOUTH DAILY 03/27/2016 06/24/2016 In active Flexeril 10 mg tablet RxNorm: 492171 TAKE ONE TABLET BY MOUTH EVERY 8 HOURS A S NEEDED 03/14/2016 04/02/2016 Inactive Vitamin B-12 ER 2,00 0 mcg tablet,extended release RxNorm: 391101 1 Tablet(s) PO daily 03/13/2016 No Stop Date Active Vitamin B-12 ER 2,00 0 mcg tablet,extended release RxNorm: 358714 1 Tablet(s) PO daily 03/13/2016 05/04/2019 Inactive gabapentin 100 mg ca psule RxNorm: 977490 1 Capsule(s) PO BID 03/13/2016 09/15/2016 Inactive Flexeril 10 mg tablet RxNorm: 055197 Tablet(s) TAKE ONE TABLET BY MOUTH EVERY 8 HOURS NEEDED 02/08/2016 02/27/2016 Inactive Xanax 0.25 mg tablet RxNorm: 192391 1/2-1 Tablet(s) PO QDAY PRN 02/08/2016 07/15/2016 Inactive amlodipine 5 mg tablet RxNorm: 910529 1 Tablet(s) PO daily 02/06/2016 03/26/2016 Inactive furosemide 20 mg tablet RxNorm: 791499 1 Tablet(s) PO daily 01/30/2016 06/16/2016 Inactive amlodipine 10 mg tablet RxNorm: 344141 1/2 Tablet(s) PO daily 01/30/2016 02/05/2016 Inactive doxazosin 4 mg tablet RxNorm: 400187 1.5 Tablet(s) PO BID 01/30/2016 01/23/2017 Inactive Flexeril 10 mg tablet RxNorm: 122392 TAKE ONE TABLET BY MOUTH EVERY 8 HOURS A S NEEDED 01/10/2016 01/29/2016 Inactive potassium chloride E R 10 mEq tablet,extended release RxNorm: 698122 1 Tablet(s) PO PRN as needed with lasix 12/25/2015 06/16/2016 Inactive prn swelling amlodipine 10 mg tablet RxNorm: 473281 TAKE ONE TABLET BY MOUTH EVERY MORNING 12/25/2015 12/24/2015 In active amlodipine 10 mg tablet RxNorm: 549778 TAKE ONE TABLET BY MOUTH EVERY MORNING 12/25/2015 01/29/2016 In active furosemide 20 mg tablet RxNorm: 516169 1/2 Tablet(s) PO daily as needed edema 12/21/2015 01/19/2016 In active pt needs to take 10meq potassium on days she takes the lasix metoprolol tartrate 100 mg tablet RxNorm: 070126 TAKE ONE AND ONE-HALF (1 & 1/2) TABLET BY MOUTH EVERY MORNING AND TAKE TWO TABLETS BY MOUTH EVERY EVENING 11/08/2015 12/07/2015 In active Flonase Allergy Reli ef 50 mcg/actuation nasal spray,suspension RxNorm: [place] as needed PLACE 2 SPRAYS IN EACH NOSTRIL DAILY 10/09/2015 02/05/2016 Inactive Flexeril 10 mg tablet RxNorm: 453394 1 Tablet(s) PO TID PRN TAKE ONE TABLET B Y MOUTH EVERY 8 HOURS NEEDED 10/09/2015 12/07/2015 Inactive alprazolam 0.5 mg ta blet RxNorm: 597598 TAKE ONE TABLET BY [facility] AT BEDTIME NEEDED FOR ANXIETY 08/29/2015 11/23/2015 Inactive Flonase Allergy Reli ef 50 mcg/actuation nasal spray,suspension RxNorm: PLACE 2 SPRAYS IN EACH NOSTRIL DAILY 07/06/2015 10/08/2015 Inactive Kenalog 40 mg/mL sylvia pension for injection RxNorm: 2975779 Milliliter(s) Inj 06/12/2015 06/12/2015 In active prednisone 10 mg tab lets in a dose pack RxNorm: 903200 1 Tablet(s) PO UD 06/12/2015 06/17/2015 In active 6-5-4-3-2-1 acyclovir 800 mg tablet RxNorm: 948074 1 Tablet(s) PO TID 06/12/2015 06/21/2015 Inactive Xanax 0.25 mg tablet RxNorm: 941013 1/2-1 Tablet(s) PO QDAY PRN 05/15/2015 02/07/2016 Inactive Flonase Allergy Reli ef 50 mcg/actuation nasal spray,suspension RxNorm: 2 [place] NASAL daily 05/15/2015 06/13/2015 Inactive Kenalog 40 mg/mL sylvia pension for injection RxNorm: 4271936 Milliliter(s) Inj 05/15/2015 05/15/2015 In active metoprolol tartrate 100 mg tablet RxNorm: 959695 TAKE ONE AND ONE-HALF (1 & 1/2) TABLET BY MOUTH EVERY MORNING AND TAKE TWO TABLETS BY MOUTH EVERY EVENING 05/07/2015 06/05/2015 In active metoprolol tartrate 100 mg tablet RxNorm: 249179 TAKE ONE AND ONE-HALF (1 & 1/2) TABLET BY MOUTH EVERY MORNING AND TAKE TWO TABLETS BY MOUTH EVERY EVENING 04/05/2015 05/04/2015 In active amlodipine 10 mg tablet RxNorm: 317656 TAKE ONE TABLET BY MOUTH EVERY MORNING 03/10/2015 12/04/2015 In active alprazolam 0.5 mg ta blet RxNorm: 316049 TAKE ONE TABLET BY MO [facility] EVERY NIGHT AT BEDTIME NEEDED FOR ANXIETY 02/23/2015 03/24/2015 Inactive (Response to an electronic controlled substance refill request - RxReferenceNumber: [id number]) alprazolam 0.5 mg ta blet RxNorm: 052287 1 Tablet(s) PO QHS as needed anxiety 02/23/2015 08/29/2015 In active (Response to an electronic controlled salas bstance refill request - RxReferenceNumber: [id number]) doxazosin 4 mg tablet RxNorm: 076790 TAKE ONE TABLET BY MOUTH TWICE A DAY 02/13/2015 01/29/2016 In active atorvastatin 20 mg t ablet RxNorm: 084443 TAKE ONE TABLET BY MO [facility] EVERY DAY 01/19/2015 05/03/2019 In active atorvastatin 20 mg t ablet RxNorm: 109593 Tablet(s) TAKE ONE TA BLET BY MOUTH EVERY DAY 01/19/2015 01/18/2015 Inactive [SAVINGS FOR NON-COVERED DRUGS -- BIN:00 3585, PCN: ASPROD1, Group: XXXXX, ID# [id number], Questions: . THIS IS NOT INSURANCE.] Maxzide-25mg 37.5 mg -25 mg tablet RxNorm: 01119 1 Tablet(s) PO daily 01/10/2015 10/08/2015 Inactive [SAVINGS FOR NON-COVERED DRUGS -- BIN:00 3585, PCN: ASPROD1, Group: XXXXX, ID# [id number], Questions: . THIS IS NOT INSURANCE.] metoprolol tartrate 100 mg tablet RxNorm: 752400 TAKE ONE AND ONE-HALF (1 & 1/2) TABLET BY MOUTH EVERY MORNING AND TAKE TWO TABLETS BY MOUTH EVERY EVENING 12/05/2014 01/03/2015 In active Flexeril 10 mg tablet RxNorm: 641704 TAKE ONE TABLET BY MOUTH EVERY 8 HOURS A S NEEDED 10/31/2014 06/27/2015 Inactive alprazolam 0.5 mg ta blet RxNorm: 296616 1 Tablet(s) PO QHS TA KE ONE TABLET BY MOUTH EVERY NIGHT AT BEDTIME AND NEEDED FOR PANIC ATTACKS 10/21/2014 10/23/2014 Inactive (Appended: Controlled substance eRx refi ll - RxReferenceNumber: [id number]) alprazolam 0.5 mg ta blet RxNorm: 576938 TAKE ONE TABLET BY MO [facility] EVERY NIGHT AT BEDTIME NEEDED FOR ANXIETY 10/20/2014 11/18/2014 Inactive (Response to an electronic controlled substance refill request - RxReferenceNumber: [id number]) amlodipine 10 mg tablet RxNorm: 057275 1 Tablet(s) PO QAM 09/09/2014 03/07/2015 Inactive now taking full tab [SAVINGS FOR UNINSURED PATIENTS -- BIN:040347, PCN: ASPROD1, [id number], Process claim through [employer], for questions: . THIS IS NOT INSURANCE.] metoprolol tartrate 100 mg tablet RxNorm: 741266 TAKE ONE AND ONE-HALF (1 & 1/2) TABLET BY MOUTH EVERY MORNING AND TAKE TWO TABLETS BY MOUTH EVERY EVENING 09/03/2014 10/02/2014 In active alprazolam 0.5 mg ta blet RxNorm: 716918 TAKE ONE TABLET BY MO [facility] EVERY NIGHT AT BEDTIME AND NEEDED FOR PANIC ATTACKS 08/29/2014 09/12/2014 Inactive (Response to an electronic controlled substance refill request - RxReferenceNumber: [id number]) Zithromax Z-Kush 250 mg tablet RxNorm: 709010 1 Tablet(s) PO UD 07/26/2014 07/25/2014 Inactive 2 tabs on day 1 then 1 tab daily on days 2-5 Zithromax Z-Kush 250 mg tablet RxNorm: 082658 1 Tablet(s) PO UD 07/26/2014 07/30/2014 Inactive 2 tabs on day 1 then 1 tab daily on days 2-5 alprazolam 0.5 mg ta blet RxNorm: 273424 Tablet(s) PO TAKE ONE TABLET BY MOUTH EVERY NIGHT AT BEDTIME AND NEEDED FOR PANIC ATTACKS 07/08/2014 08/30/2014 Inactive (Appended: Controlled substance eRx refill - RxReferenceNumber: [id number]) atorvastatin 20 mg t ablet RxNorm: 122895 TAKE ONE TABLET BY MO [facility] EVERY DAY 04/25/2014 01/18/2015 In active Carafate 1 gram tablet RxNorm: 216569 Tablet(s) PO TAKE ONE TABLET BY MOUTH FO UR TIMES A DAY 04/14/2014 10/08/2015 Inactive Fish Oil 1,000 mg ca psule RxNorm: 1 Capsule(s) PO TID 04/13/2014 10/08/2015 Inactive Flexeril 10 mg tablet RxNorm: 020807 1 Tablet(s) PO Q8 PRN 04/01/2014 04/10/2014 Inactive Carafate 1 gram tablet RxNorm: 569176 1 Tablet(s) PO QID 03/10/2014 02/15/2019 Inactive chlordiazepoxide-cli dinium 5 mg-2.5 mg capsule RxNorm: 469519 1 Capsule(s) PO TID P RN 03/10/2014 04/10/2014 Inactive doxazosin 4 mg tablet RxNorm: 628283 1 Tablet(s) PO BID 02/02/2014 02/12/2015 Inactive Kenalog 40 mg/mL sylvia pension for injection RxNorm: 6035125 Milliliter(s) Inj 02/02/2014 02/02/2014 In active atorvastatin 20 mg t ablet RxNorm: 141725 Tablet(s) PO TAKE ONE TABLET BY MOUTH EVERY DAY 01/10/2014 04/24/2014 Inactive alprazolam 0.5 mg ta blet RxNorm: 612868 Tablet(s) PO TAKE ONE TABLET BY MOUTH EVERY NIGHT AT BEDTIME AND NEEDED FOR PANIC ATTACKS 01/10/2014 07/07/2014 Inactive (Appended: Controlled substance eRx refill - RxReferenceNumber: [id number]) alprazolam 0.5 mg ta blet RxNorm: 444211 1 Tablet(s) PO QHS TA KE ONE TABLET BY MOUTH EVERY NIGHT AT BEDTIME AND NEEDED FOR PANIC ATTACKS 01/10/2014 10/20/2014 Inactive (Appended: Controlled substance eRx refi ll - RxReferenceNumber: [id number]) alprazolam 0.5 mg ta blet RxNorm: 470547 Tablet(s) PO TAKE ONE TABLET BY MOUTH EVERY NIGHT AT BEDTIME AND NEEDED FOR PANIC ATTACKS 01/10/2014 01/09/2014 Inactive (Appended: Controlled substance eRx refill - RxReferenceNumber: [id number]) Carafate 1 gram tablet RxNorm: 146456 1 Tablet(s) PO QID 12/16/2013 01/14/2014 Inactive Nexium 40 mg capsule ,delayed release RxNorm: 072182 Capsule(s) PO TAKE ON E CAPSULE BY MOUTH EVERY DAY 11/25/2013 03/12/2016 Inactive doxazosin 4 mg tablet RxNorm: 222330 1/2 Tablet(s) PO QPM 10/21/2013 01/20/2019 Inactive alprazolam 0.5 mg ta blet RxNorm: 902210 1 Tablet(s) PO as dir ected q hs and prn panic attacks 10/18/2013 01/10/2014 Inactive doxazosin 4 mg tablet RxNorm: 718064 1 q am 1/2 q pm Tablet(s) PO 09/21/2013 02/01/2014 Inactive doxazosin 4 mg tablet RxNorm: 212757 1 q am 1/2 q pm Tablet(s) PO 09/21/2013 09/20/2013 Inactive amlodipine 10 mg tablet RxNorm: 470303 1 Tablet(s) PO QAM 08/30/2013 08/24/2014 Inactive now taking full tab metoprolol tartrate 100 mg tablet RxNorm: 921504 2 Tablet(s) PO QPM 08/24/2013 10/22/2013 Inactive alprazolam 0.5 mg ta blet RxNorm: 901333 1 Tablet(s) PO as dir ected q hs and prn panic attacks 07/29/2013 10/17/2013 Inactive Benicar 20 mg tablet RxNorm: 498827 1 Tablet(s) PO daily 07/26/2013 08/09/2013 Inactive amlodipine 10 mg tablet RxNorm: 503866 1 Tablet(s) PO QAM 07/19/2013 08/29/2013 Inactive cyclobenzaprine 5 mg tablet RxNorm: 662979 1 Tablet(s) PO TID AL N one pill every 8 hours as needed for muscle spasms. 07/19/2013 03/31/2014 Inactive Kenalog 40 mg/mL Sylvia p for Injection RxNorm: 1177243 1 Milliliter(s) Inj 06/30/2013 06/30/2013 In active prednisone 10 mg tab lets in a dose pack RxNorm: 220120 1 Tablet(s) PO as doc tor directed take steroid taper as directed on box 06/30/2013 07/09/2013 Inactive disp ense one PACK meclizine 25 mg tablet RxNorm: 293644 1 Tablet(s) PO Q6 PRN 1/2 - 1 pill every 6 hours as needed for vertigo 06/30/2013 08/10/2013 Inactive metoprolol tartrate 100 mg tablet RxNorm: 530751 1.5 Tablet(s) PO BID 06/30/2013 08/23/2013 In active metoprolol tartrate 100 mg tablet RxNorm: 592944 1 Tablet(s) PO BID 06/24/2013 06/29/2013 Inactive metoprolol tartrate 100 mg tablet RxNorm: 530472 1 Tablet(s) PO daily 06/17/2013 06/23/2013 In active metoprolol tartrate 100 mg tablet RxNorm: 686899 1 Tablet(s) PO daily 06/17/2013 06/16/2013 In active Toprol XL 100 mg tab let,extended release RxNorm: 577017 Tablet(s) PO TAKE ONE AND ONE- HALF TABLET BY MOUTH EVERY MORNING AND ONE TABLET IN THE EVENING 05/05/2013 06/22/2013 In active alprazolam 0.5 mg ta blet RxNorm: 319904 1 Tablet(s) PO as dir ected q hs and prn panic attacks 04/06/2013 07/28/2013 Inactive doxazosin 4 mg tablet RxNorm: 059827 Tablet(s) PO TAKE ONE TABLET BY MOUTH EV KANE DAY 04/01/2013 09/20/2013 Inactive Toprol XL 100 mg tab let,extended release RxNorm: 320363 Tablet(s) PO TAKE ONE AND ONE- HALF TABLET BY MOUTH EVERY MORNING AND ONE TABLET IN THE EVENING 12/25/2012 05/04/2013 In active Lasix 20 mg tablet RxNorm: 515314 1 Tablet(s) PO QDAY PRN Take 1 tab daily x 3 days then as needed 12/02/2012 04/10/2014 Inactive potassium chloride E R 20 mEq tablet,extended release(part/cryst) RxNorm: 760546 1 Tablet(s) PO PRN 12/02/2012 10/04/2013 Inactive prn swelling alprazolam 0.5 mg ta blet RxNorm: 681729 1 Tablet(s) PO as dir ected q hs and prn panic attacks 12/01/2012 04/05/2013 Inactive amlodipine 10 mg tablet RxNorm: 371177 1/2 Tablet(s) PO QAM 12/01/2012 07/18/2013 Inactive fluconazole 150 mg t ablet RxNorm: 299621 1 Tablet(s) PO daily 11/16/2012 11/20/2012 Inactive fluconazole 150 mg t ablet RxNorm: 043330 1 Tablet(s) PO daily 11/16/2012 11/15/2012 Inactive Nexium 40 mg capsule ,delayed release RxNorm: 010373 1 Capsule(s) PO daily 10/23/2012 11/16/2013 In active acyclovir 400 mg tablet RxNorm: 024681 1 Tablet(s) PO TID 10/19/2012 10/28/2012 Inactive chlordiazepoxide-cli dinium 5 mg-2.5 mg capsule RxNorm: 717350 1 Capsule(s) PO TID P RN 2012 12/22/2013 Inactive Voltaren 1 % Topical Gel RxNorm: 753414 4 Gram(s) TOP QID pt is to use 2 grams to each hand and 4 grams to knees. 08/18/2012 04/10/2014 Inactive doxazosin 4 mg tablet RxNorm: 684630 1 Tablet(s) PO QAM 08/18/2012 10/16/2012 Inactive atorvastatin 20 mg t ablet RxNorm: 084396 1 Tablet(s) PO HS 08/12/2012 08/11/2012 Inactive may have #90 x3 infection atorvastatin 20 mg t ablet RxNorm: 999678 1 Tablet(s) PO HS 08/12/2012 09/05/2013 Inactive may have #90 x3 infection doxazosin 4 mg tablet RxNorm: 040107 1 Tablet(s) PO daily 08/11/2012 08/17/2012 Inactive clonidine 0.1 mg/24 hr Weekly Transderm Patch RxNorm: 821977 1 Patch TD QW 08/04/2012 08/10/2012 In active Influenza Virus Vacc ine 0.5 mL RxNorm: IM 08/04/2012 08/04/2012 Inactive cyclobenzaprine 5 mg tablet RxNorm: 449320 1 Tablet(s) PO TID AL N one pill every 8 hours as needed for muscle spasms. 07/13/2012 11/09/2012 Inactive cyclobenzaprine 5 mg tablet RxNorm: 726819 1 Tablet(s) PO TID AL N one pill every 8 hours as needed for muscle spasms. 07/09/2012 07/12/2012 Inactive gabapentin 100 mg ca psule RxNorm: 760180 1 Capsule(s) PO TID 07/01/2012 12/01/2012 Inactive atorvastatin 20 mg t ablet RxNorm: 477655 1/2 Tablet(s) PO daily 07/01/2012 08/11/2012 Inactive may of 90 day supply if cheaper Toprol XL 100 mg tab let,extended release RxNorm: 284781 Tablet(s) PO BID 11/2 in am and 1 in evening 07/01/2012 06/16/2013 Inactive 1 1/2 q am 1 in [place] alprazolam 0.5 mg ta blet RxNorm: 978870 1 Tablet(s) PO as dir ected q hs and prn panic attacks 06/24/2012 11/30/2012 Inactive amlodipine 10 mg tablet RxNorm: 336433 1 Tablet(s) PO QAM 06/19/2012 11/30/2012 Inactive benazepril 20 mg tablet RxNorm: 505070 1 Tablet(s) PO daily 06/19/2012 06/13/2013 Inactive one daily at noon Toprol XL 100 mg tab let,extended release RxNorm: 925025 Tablet(s) PO BID 06/19/2012 06/30/2012 In active 1 1/2 q am 1 in [place] Toprol XL 100 mg tab let,extended release RxNorm: 931566 1 1/2 Tablet(s) PO BI D 04/27/2012 06/18/2012 In active 90 or 30 day supply, whatever ins will a llow Lotrel 10 mg-20 mg Cap RxNorm: 629925 1 Capsule(s) PO daily 04/20/2012 08/04/2012 Inactive estradiol 0.5 mg Tab RxNorm: 701003 1 Tablet(s) PO BID 04/20/2012 12/02/2012 Inactive Toprol XL 100 mg 24 hr Tab RxNorm: 743987 1 1/2 Tablet(s) PO BID 04/14/2012 04/26/2012 Inactive Toprol XL 100 mg 24 hr Tab RxNorm: 385954 Tablet(s) PO daily 03/31/2012 04/13/2012 Inactive new directions: one q am 1/2 every evepl ease put on file until she needs filled Lipitor 10 mg tablet RxNorm: 523290 1 Tablet(s) PO daily 03/31/2012 12/02/2012 Inactive march of 90 day supply if cheaper Toprol XL 100 mg 24 hr Tab RxNorm: 073788 1 Tablet(s) PO daily 03/11/2012 03/30/2012 Inactive Boniva 150 mg Tab RxNorm: 712150 1 Tablet(s) PO weekly 02/19/2012 12/02/2012 Inactive Detrol LA 4 mg capsu le,extended release RxNorm: 560895 1 Capsule(s) PO daily 02/19/2012 03/12/2016 In active doxycycline hyclate 100 mg Tab RxNorm: 8275441 1 Tablet(s) PO BID 01/23/2012 02/25/2012 Inactive Rocephin 500 mg Solu tion for Injection RxNorm: 2319867 1 Milliliter(s) Inj 01/23/2012 01/23/2012 In active Kenalog 40 mg/mL Sylvia p for Injection RxNorm: 8553893 1 Milliliter(s) Inj 01/23/2012 01/23/2012 In active cyclobenzaprine 5 mg tablet RxNorm: 092741 1 Tablet(s) PO TID AL N one pill every 8 hours as needed for muscle spasms. 12/20/2011 04/17/2012 Inactive clonidine 0.1 mg Tab RxNorm: 557880 1 Tablet(s) PO BID 12/20/2011 02/25/2012 Inactive Vitamin D3 5,000 uni t tablet RxNorm: 577678 1 Tablet(s) PO daily No Start Date Active Nexium 24HR 22.3 mg capsule,delayed release RxNorm: 267573 1 Capsule(s) PO daily as needed No Start Date Active Lotrel 10 mg-20 mg Cap RxNorm: 143719 1 Capsule(s) PO daily No Start Date 02/24/2012 Inactive benazepril 20 mg tablet RxNorm: 485718 1 Tablet(s) PO No Start Date 06/18/2012 Inactive one daily at noon Vimovo 500 mg-20 mg multiphase, immed & delay rel Tab RxNorm: 451393 1 Tablet(s) PO BID No Start Date 12/01/2012 Inactive B12 1000 mcg RxNorm: 2 IM daily No Start Date 03/12/2016 Inactive Fish Oil 1,000 mg ca psule RxNorm: 1 Capsule(s) PO BID No Start Date 04/12/2014 Inactive Benicar 40 mg tablet RxNorm: 541825 1 Tablet(s) PO daily No Start Date 10/24/2013 Inactive Carafate 1 gram tablet RxNorm: 384577 Oral No Start Date 12/15/2013 Inactive Vitamin B-12 1,000 m cg tablet RxNorm: 561505 1 Tablet(s) PO daily No Start Date 03/12/2016 Inactive amlodipine 10 mg tablet RxNorm: 513279 1 Tablet(s) PO daily No Start Date 06/18/2012 Inactive Phenergan VC-Codeine 6.25 mg-5 mg-10 mg/5 mL Syrup RxNorm: 518736 5-10 Milliliter(s) PO Q6 PRN No Start Date 04/10/2014 Inactive Celebrex 200 mg capsule RxNorm: 919572 1 Capsule(s) PO daily No Start Date 10/08/2015 Inactive Percocet 5 mg-325 mg tablet RxNorm: 5333512 1-2 Tablet(s) PO Q6 PRN No Start Date 06/16/2014 Inactive Exforge 10 mg-320 mg Tab RxNorm: 842046 1 Tablet(s) PO daily sample No Start Date 05/20/2012 Inactive Lipitor 10 mg Tab RxNorm: 883860 1 Tablet(s) PO daily No Start Date 03/30/2012 Inactive tramadol 50 mg tablet RxNorm: 665507 1-2 Tablet(s) PO Q8 as needed No Start Date 04/24/2016 Inactive Lasix 20 mg tablet RxNorm: 715705 1 Tablet(s) PO QDAY PRN Take 1 tab daily x 3 days then as needed No Start Date 12/01/2012 Inactive potassium chloride E R 20 mEq tablet,extended release(part/cryst) RxNorm: 0362282 1 Tablet(s) PO QDAY PRN No Start [place]cho[place] e 12/01/2012 Inactive Toprol XL 100 mg 24 hr Tab RxNorm: 576841 1 Tablet(s) PO daily No Start Date 03/10/2012 Inactive MIDRIN 325 mg-65 mg- 100 mg Cap RxNorm: 118961 1 Capsule(s) PO PRN No Start Date 05/20/2012 Inactive Nexium 40 mg capsule ,delayed release RxNorm: 416695 1 Capsule(s) PO daily No Start Date 10/22/2012 Inactive Detrol LA 4 mg 24 hr Cap RxNorm: 048921 Oral No S tart Date 02/18/2012 Inactive Boniva 150 mg Tab RxNorm: 709256 Oral No Start Date 02/18/2012 Inactive Flexeril 10 mg tablet RxNorm: 047020 1 Tablet(s) PO Q8 PRN No Start Date 03/31/2014 Inactive clidinium bromide Oral RxNorm: Oral No Start Date 12/01/2012 Inactive Fish Oil 360 mg-1,20 0 mg capsule,delayed release RxNorm: 1 Capsule(s) PO daily No Start Date 02/15/2019 Inactive alprazolam 0.5 mg ta blet RxNorm: 863872 1 Tablet(s) PO as dir ected q hs and prn panic attacks No Start Date 06/23/2012 Inactive chlordiazepoxide Oral RxNorm: Oral No Start Date 12/01/2012 Inactive metoprolol tartrate 100 mg tablet RxNorm: 459769 Tablet(s) PO TAKE ONE AND ONE-HALF (1 & 1/2) TABLET BY MOUTH EVERY MORNING AND TAKE TWO TABLETS BY MOUTH EVERY EVENING No Start Date 08/03/2014 Inactive furosemide 20 mg tablet RxNorm: 390957 1 Tablet(s) PO daily No Start Date 01/29/2016 Inactive Calcium Oral RxNorm: Oral No Start Date 03/12 Inactive Nasonex 50 mcg/actua tion [place] RxNorm: 558085 1 [place] NASAL BID No Start Date 04/10/2014 Inactive Medication Administered Medication Codes Instruc tions Start Date Status Kenalog 40 mg/mL suspension for injection RxNorm: 3326123 Milliliter 04/24/2018 No longer Active Kenalog 40 mg/mL suspension for injection RxNorm: 2943241 Milliliter 06/23/2017 No longer Active Kenalog 40 mg/mL suspension for injection RxNorm: 3111716 2Milliliter 03/21/2017 N o longer Active Kenalog 40 mg/mL suspension for injection RxNorm: 9542251 1Milliliter 04/04/2016 N o longer Active Kenalog 40 mg/mL suspension for injection RxNorm: 6397485 Milliliter 06/12/2015 No longer Active Kenalog 40 mg/mL suspension for injection RxNorm: 7581664 Milliliter 05/15/2015 No longer Active Kenalog 40 mg/mL suspension for injection RxNorm: 1951832 Milliliter 02/02/2014 No longer Active Kenalog 40 mg/mL Susp for Injection RxNorm: 5719229 1Milliliter 06/30/2013 N o longer Active Influenza Virus Vaccine 0.5 mL RxNorm: 08/04/2012 No longer Active Rocephin 500 mg Solution for Injection RxNorm: 8308183 1Milliliter 01/23/2012 N o longer Active Kenalog 40 mg/mL Susp for Injection RxNorm: 9513556 1Milliliter 01/23/2012 N o longer Active Immunizations [...] completed Assessments Condition Codes Effectiv e Dates 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: K12.0 ICD-9: 528.2 02/16/2019 Essential (primary) hypertension ICD -10: I10 ICD-9: 401.1 02/16/2019 Cough ICD-10: R05 ICD-9: 786.2 01/21/2019 Acute upper respiratory infection, unspecified ICD-10: J06.9 ICD-9: 465.9 01/21/2019 Mixed hyperlipidemia ICD-10: E78.2 ICD-9: 272.2 10/14/2018 Other specified cardiac arrhythmias ICD-10: I49.8 ICD-9: [...] Visit Reason For Visit Effective Dates Notes sores in the mouth 02/16/2019 cough 01/21/2019 [...] Ord2 RDW 14.8 % 06/05/2015 Comp Metabolic Zsh241 NA 138 mEq/L 06/05/2015 Comp Metabolic Fgq040 K 4.3 mEq/L 06/05/2015 Comp Metabolic Frg017 CL 100 mEq/L 06/05/2015 Comp Metabolic Xia179 CO2 29.0 mEq/L 06/05/2015 Comp Metabolic Dmh347 AN ION GAP 13 06/05/2015 Comp Metabolic Wnw557 GL UCOSE 85 mg/dL 06/05/2015 Comp Metabolic Pgm822 Cr eat 0.7 mg/dL 06/05/2015 Comp Metabolic Nkm319 eG FR 94 ml/min/1.73m2 06/05 Comp Metabolic Nnr047 BUN 16 mg/dL 06/05/2015 Comp Metabolic Ydz292 B/ C Ratio 24.2 Ratio 06/05/2015 Comp Metabolic Ybz943 CA LCIUM 9.5 mg/dL 06/05/2015 Comp Metabolic Nku195 AL K PHOS 69 U/L 06/05/2015 Comp Metabolic Cgu836 T(SGOT) 22 U/L 06/05/2015 Comp Metabolic Esb491 AL T(SGPT) 26 U/L 06/05/2015 Comp Metabolic Pyb623 BI LI T 0.5 mg/dL 06/05/2015 Comp Metabolic Tro096 AL BUMIN 4.2 g/dL 06/05/2015 Comp Metabolic Zwh356 TP RO 6.1 g/dL 06/05/2015 Comp Metabolic Aei494 GL OB 1.9 g/dL 06/05/2015 Comp Metabolic Ote278 A/ G Ratio 2.2 Ratio 06/05/2015 Comp Metabolic Vue208 Os mo 276 mOsmo 06/05/2015 Tsh Ord6 hTSH II 1.99 uIU/mL 06/05/2015 Lipid Ord30 CHOL 171 mg/dL 06/05/2015 Lipid Ord30 HDL 55.0 mg/dl 06/05/2015 Lipid Ord30 TRIG 178 mg/dL 06/05/2015 Lipid Ord30 LDL 80 mg/dL 06/05/2015 Lipid Ord30 C/HDL 3.1 Ratio 06/05/2015 %Hba1C Yud480 % HbA1c 56042-2 5.7 % 06/05/2015 %Hba1C Ezv900 Gluc Ave 117 mg/dL 06/05/2015 A1C HPLC 6557412 A1C HPLC 24921-6 5.6 % 07/15/2014 GFR CALC 8706011 GFR AA >60 ML/MIN 07/15/2014 GFR CALC 8147377 GFR NON -AA >60 ML/MIN 07/15/2014 CHEM 14 9770199 AST 21 U/L 07/15/2014 CHEM 14 8416946 ALT 23 IU/L 07/15/2014 CHEM 14 3640055 BUN 14 MG/DL 07/15/2014 CHEM 14 1648243 ALBUMIN 4.2 GM/DL 07/15/2014 CHEM 14 1629636 CHLORIDE 104 MMOL/L 07/15/2014 CHEM 14 8505500 BILI TOT 0.4 MG/DL 07/15/2014 CHEM 14 1197840 ALK PHOS 88 U/L 07/15/2014 CHEM 14 0871708 SODIUM 140 MMOL/L 07/15/2014 CHEM 14 7826634 CREATINI NE 0.63 MG/DL 07/15/2014 CHEM 14 7693664 CALCIUM 9.4 MG/DL 07/15/2014 CHEM 14 0003546 POTASSIUM 4.0 MMOL/L 07/15/2014 CHEM 14 7094732 PROT TOT 6.4 GM/DL 07/15/2014 CHEM 14 3048845 GLUCOSE 90 MG/DL 07/15/2014 CHEM 14 7431034 BICARB 30 MMOL/L 07/15/2014 CHEM 14 6585707 ANION GAP 6 MEQ/L 07/15/2014 A1C HPLC 6101352 A1C HPLC 85697-7 6.0 % 04/13/2014 TSH 5560394 TSH 1.875 uIU/ML 04/12/2014 CHEM 14 1184493 AST 17 U/L 04/12/2014 CHEM 14 8664347 ALT 20 IU/L 04/12/2014 CHEM 14 0839657 BUN 14 MG/DL 04/12/2014 CHEM 14 9685629 ALBUMIN 4.2 GM/DL 04/12/2014 CHEM 14 0902576 CHLORIDE 104 MMOL/L 04/12/2014 CHEM 14 9653721 BILI TOT 0.3 MG/DL 04/12/2014 CHEM 14 9217728 ALK PHOS 80 U/L 04/12/2014 CHEM 14 1575915 SODIUM 141 MMOL/L 04/12/2014 CHEM 14 5704395 CREATINI NE 0.62 MG/DL 04/12/2014 CHEM 14 7355587 CALCIUM 9.4 MG/DL 04/12/2014 CHEM 14 1843872 POTASSIUM 3.5 MMOL/L 04/12/2014 CHEM 14 0791708 PROT TOT 6.5 GM/DL 04/12/2014 CHEM 14 4703759 GLUCOSE 89 MG/DL 04/12/2014 CHEM 14 4259731 BICARB 29 MMOL/L 04/12/2014 CHEM 14 7529819 ANION GAP 8 MEQ/L 04/12/2014 LIPID GRP HDL TE ST 59 MG/DL 04/12/2014 LIPID GRP 9928686 TRIG 177 MG/DL 04/12/2014 LIPID GRP 8432672 TEST L DL 106 MG/DL 04/12/2014 LIPID GRP CHOL 200 MG/DL 04/12/2014 LIPID GRP RCHOL/ HDL 3.39 RATIO 04/12/2014 CBC 5912122 WBC 4.6 10e9/L 04/12/2014 CBC 2254982 RBC 4.52 10e12/L 04/12/2014 CBC 1601700 HGB 13.1 g/dL 04/12/2014 CBC 4988373 HCT DET 39.2 % 04/12/2014 CBC 0171765 MCV 86.7 fL 04/12/2014 CBC 4510079 MCH 29.0 pg 04/12/2014 CBC 6596724 MCHC 33.4 g/dL 04/12/2014 CBC 1264561 PLT 233 10e9/L 04/12/2014 CBC 7904960 MPV 9.8 fL 04/12/2014 CBC 4877541 AN % 59.5 % 04/12/2014 CBC 4565472 LY % 28.6 % 04/12/2014 CBC 7538886 MON % 10.0 % 04/12/2014 CBC 9644394 EOS % 1.5 % 04/12/2014 CBC 6305440 BASO % 0.4 % 04/12/2014 CBC 3819798 RDW 13.7 % 04/12/2014 CBC 9014072 ABS AN 2.74 10e9/L 04/12/2014 CBC 3907712 ABS LYMPH 1.32 10e9/L 04/12/2014 CBC 2407957 ABS MONO 0.46 10e9/L 04/12/2014 CBC 5035388 ABS EOS 0.07 10e9/L 04/12/2014 CBC 2069823 ABS BASO 0.02 10e9/L 04/12/2014 CBC 7570085 RDW-SD 42.6 fL 04/12/2014 GFR CALC 6716558 GFR AA >60 ML/MIN 04/12/2014 GFR CALC 0504387 GFR NON -AA >60 ML/MIN 04/12/2014 LIPID GRP HDL TE ST 57 MG/DL 08/24/2013 LIPID GRP TRIG 183 MG/DL 08/24/2013 LIPID GRP TEST L DL 64 MG/DL 08/24/2013 LIPID GRP 2705191 CHOL 158 MG/DL 08/24/2013 LIPID GRP RCHOL/ HDL 2.77 RATIO 08/24/2013 GFR CALC 7910737 GFR AA >60 ML/MIN 08/24/2013 GFR CALC 3196611 GFR NON -AA >60 ML/MIN 08/24/2013 CHEM 14 2039222 AST 13 U/L 08/24/2013 CHEM 14 0743022 ALT 15 IU/L 08/24/2013 CHEM 14 5569674 BUN 14 MG/DL 08/24/2013 CHEM 14 2452906 ALBUMIN 4.3 GM/DL 08/24/2013 CHEM 14 7576275 CHLORIDE 106 MMOL/L 08/24/2013 CHEM 14 4335358 BILI TOT 0.3 MG/DL 08/24/2013 CHEM 14 5325414 ALK PHOS 75 U/L 08/24/2013 CHEM 14 3083639 SODIUM 141 MMOL/L 08/24/2013 CHEM 14 4599779 CREATINI NE 0.56 MG/DL 08/24/2013 CHEM 14 2883723 CALCIUM 9.1 MG/DL 08/24/2013 CHEM 14 5078031 POTASSIUM 4.2 MMOL/L 08/24/2013 CHEM 14 1115776 PROT TOT 6.0 GM/DL 08/24/2013 CHEM 14 1299931 GLUCOSE 83 MG/DL 08/24/2013 CHEM 14 6374290 BICARB 28 MMOL/L 08/24/2013 CHEM 14 5518305 ANION GAP 7 MEQ/L 08/24/2013 CBC 1322694 WBC 4.7 10e9/L 08/24/2013 CBC 5711085 RBC 4.33 10e12/L 08/24/2013 CBC 7413499 HGB 12.5 g/dL 08/24/2013 CBC 8591600 HCT DET 38.2 % 08/24/2013 CBC 7655496 MCV 88.2 fL 08/24/2013 CBC 1787157 MCH 28.9 pg 08/24/2013 CBC 5956660 MCHC 32.7 g/dL 08/24/2013 CBC 1403451 PLT 218 10e9/L 08/24/2013 CBC 8491579 MPV 10.4 fL 08/24/2013 CBC 0750199 AN % 61.9 % 08/24/2013 CBC 3104394 LY % 24.8 % 08/24/2013 CBC 2082261 MON % 10.3 % 08/24/2013 CBC 4880613 EOS % 2.1 % 08/24/2013 CBC 6524930 BASO % 0.9 % 08/24/2013 CBC 6007176 RDW 14.6 % 08/24/2013 CBC 7972877 ABS AN 2.91 10e9/L 08/24/2013 CBC 8052845 ABS LYMPH 1.17 10e9/L 08/24/2013 CBC 4013187 ABS MONO 0.48 10e9/L 08/24/2013 CBC 8863517 ABS EOS 0.10 10e9/L 08/24/2013 CBC 9283707 ABS BASO 0.04 10e9/L 08/24/2013 CBC 5132834 RDW-SD 46.7 fL 08/24/2013 TSH 9819931 TSH 1.208 uIU/ML 08/24/2013 Review of Systems System Result Effective Dates Constitutional No recent illness 02/16/2019 Constitutional No [...] 02/16/2019 Musculoskeletal muscle weakness 02/16/2019 Psychiatric anxiety 04/04/2019 Constitutional recent illness 01/21/2019 Constitutional No anorexia [...] consciousness 02/04/2018 Neurologic pain, limb Psychiatric anxiety 0402/2018 Cardiovascular hypertension 02/04/2018 Musculoskeletal muscle weakness 02/04/2018 [...] consciousness 06/17/2016 Neurologic pain, limb Psychiatric anxiety 1 03/2016 Constitutional recent illness 04/03/2016 Constitutional No chills [...] affect 06/30/2013 None Full Exam - General 1995 Psychiatric mood and affect Mood: happy 06/30/2013 [...] accomodation 06/24/2013 None Full Exam - General 1995 [...] developed 12/01/2012 None Full Exam - General 1995 Constitutional [...] happy 08/04/2012 None Full Exam - General 1995 Abdomen abdominal exam Overall: no tenderness 08/04/2012 None Full Exam - General 1995 Abdomen [...] exam 01/02/2012 None Full Exam - General 1995 Ears/Nose/Throat otoscopic exam External auditory canal: minimal [...] sounds 12/20/2011 None Procedures Procedure Codes Date ADMIN INFLUENZA VIRU S VAC CPT-4: G0008 07/28/2018 FLU VACC PRSV FREE I NC ANTIG Formatting Model/CDA Sections, Assigned to/Cipriano Jen CPT-4: 59433Zhoyqkx 07/28/2018 THER/PROPH/DIAG INJ SC/IM CPT-4: 07124 04/24/2018 TRIAMCINOLONE ACET I [place] NOS CPT-4: J3301 04/24/2018 PPPS, SUBSEQ VISIT CPT- 4: G0439 02/03/2018 TRIAMCINOLONE ACET I [place] NOS CPT-4: J3301 06/23/2017 TRIAMCINOLONE ACET I [place] NOS CPT-4: J3301 03/21/2017 PPPS, SUBSEQ VISIT CPT- 4: G0439 01/22/2017 ADMIN PNEUMOCOCCAL V ACCINE SNOMED CT: 65511511 CPT-4: G0009 09/16/2016 Pneumococcal Polysac charide Vaccine, 23-Valent, Ad CPT-4: 73599 09/16/2016 THER/PROPH/DIAG INJ SC/IM CPT-4: 90378 04/04/2016 TRIAMCINOLONE ACET I [place] NOS CPT-4: J3301 04/04/2016 ADMIN INFLUENZA VIRU S VAC CPT-4: G0008 07/28/2015 FLU VACC 4 XIMENA 3 YRS PLUS IM Formatting Model/CDA Sections, Assigned to/Cipriano Jen SNOMED CT: [id number] CPT-4: 17104Xnoajwx 07/28/2015 TRIAMCINOLONE ACET I [place] NOS CPT-4: J3301 06/12/2015 TRIAMCINOLONE ACET I NJ NOS CPT-4: J3301 05/15/2015 ADMIN INFLUENZA VIRU S VAC CPT-4: G0008 07/19/2014 FLU VAC NO PRSV 4 VA L 3 YRS+ Assigned to/Jen Cota CPT-4: 59841Myflvyb 07/19/2014 TRIAMCINOLONE ACET I [place] NOS CPT-4: J3301 02/02/2014 ROUTINE VENIPUNCTURE CPT-4: 85864 08/24/2013 ADMIN INFLUENZA VIRU S VAC CPT-4: [...] CPT-4: J3301 01/23/2012 THER/PROPH/DIAG INJ SC/IM CPT-4: 18746 01/23/2012 REMOVE IMPACTED EAR WAX UNI CPT-4: 60814 01/02/2012 ROUTINE VENIPUNCTURE CPT-4: 25711 12/20/2011 Vital Signs Date Vital 02/16/2019 Blood Pressure 1: 136/82 Code: 8480-6 BMI: 34.0 Code: 78272-4 Heart Rate 1: 88 bpm Height: 5' SpO2: 94% Weight: 177 lbs 01/21/2019 Blood Pressure 1: 144/70 Code: 8480-6 BMI: 34.0 Code: 05079-7 Heart Rate 1: 68 bpm Height: 5' SpO2: 97% Temperature: 36.5 (C ) / 97.7 (F) Weight: 177 lbs 10/14/2018 Blood Pressure 1: 150/72 Code: 8480-6 Heart Rate 1: 58 bpm Height: 5' SpO2: 98% Weight: 09/22/2018 Blood Pressure 1: 140/80 Code: 8480-6 BMI: 32.7 Code: 07827-2 Heart Rate 1: 55 bpm Height: 5' SpO2: 98% Weight: 170 lbs 08/17/2018 Blood Pressure 1: 140/76 Code: 8480-6 BMI: 33.0 Code: 40298-2 Heart Rate 1: 60 bpm Height: 5' SpO2: 99% Weight: 172 lbs 06/08/2018 Blood Pressure 1: 136/80 Code: 8480-6 BMI: 33.8 Code: 59784-6 Heart Rate 1: 65 bpm Height: 5' SpO2: 98% Weight: 176 lbs 05/04/2018 Blood Pressure 1: 134/80 Code: 8480-6 BMI: 35.9 Code: 74285-3 Heart Rate 1: 72 bpm Height: 5' SpO2: 94% Weight: 187 lbs 02/04/2018 Blood Pressure 1: 144/76 Code: 8480-6 BMI: 35.0 Code: 18456-9 Heart Rate 1: 64 bpm Height: 5' SpO2: 98% Weight: 182 lbs 02/03/2018 Blood Pressure 1: 136/62 Code: 8480-6 BMI: 35.0 Code: 70278-5 Heart Rate 1: 57 bpm Height: 5' SpO2: 98% Waist Measure (cm): 94 cm Weight: 182 lbs 09/17/2017 Blood Pressure 1: 150/82 Code: 8480-6 BMI: 33.6 Code: 91493-4 Heart Rate 1: 58 bpm Height: 5' SpO2: 98% Weight: 175 lbs 06/23/2017 Blood Pressure 1: 124/66 Code: 8480-6 Heart Rate 1: 65 bpm Height: 5' SpO2: 97% Weight: 05/13/2017 Blood Pressure 1: 128/80 Code: 8480-6 BMI: 32.8 Code: 16535-1 Heart Rate 1: 76 bpm Height: 5' SpO2: 95% Weight: 171 lbs 03/21/2017 Blood Pressure 1: 152/88 Code: 8480-6 Heart Rate 1: 70 bpm Height: SpO2: 98% Weight: 03/19/2017 Blood Pressure 1: 132/64 Code: 8480-6 BMI: 33.0 Code: 26533-0 Heart Rate 1: 64 bpm Height: 5' SpO2: 96% Weight: 172 lbs 01/22/2017 Blood Pressure 1: 120/68 Code: 8480-6 BMI: 33.4 Code: 65705-0 Heart Rate 1: 68 bpm Height: 5' SpO2: 96% Weight: 174 lbs 01/14/2017 Blood Pressure 1: 138/80 Code: 8480-6 BMI: 33.4 Code: 60873-3 Heart Rate 1: 69 bpm Height: 5' SpO2: 98% Weight: 174 lbs 09/23/2016 Blood Pressure 1: 138/70 Code: 8480-6 BMI: 33.6 Code: 15578-9 Heart Rate 1: 68 bpm Height: 5' SpO2: 98% Temperature: 36.4 (C ) / 97.5 (F) Weight: 175 lbs 09/16/2016 Blood Pressure 1: 124/74 Code: 8480-6 BMI: 33.6 Code: 98957-0 Heart Rate 1: 64 bpm Height: 5' SpO2: 97% Weight: 175 lbs 06/25/2016 Weigh t: 174 lbs 06/17/2016 Blood Pressure 1: 128/80 Code: 8480-6 BMI: 34.0 Code: 99397-9 Heart Rate 1: 76 bpm Height: 5' SpO2: 95% Weight: 177 lbs 04/03/2016 Blood Pressure 1: 138/72 Code: 8480-6 BMI: 34.2 Code: 59928-5 Heart Rate 1: 63 bpm Height: 5' SpO2: 96% Weight: 178 lbs 03/13/2016 Blood Pressure 1: 128/72 Code: 8480-6 BMI: 35.3 Code: 85062-5 Heart Rate 1: 71 bpm Height: 5' SpO2: 97% Weight: 184 lbs 01/30/2016 Blood Pressure 1: 134/72 Code: 8480-6 BMI: 35.2 Code: 35529-5 Heart Rate 1: 71 bpm Height: 5' SpO2: 96% Weight: 183 lbs 12/21/2015 Blood Pressure 1: 148/90 Code: 8480-6 BMI: 34.6 Code: 09177-4 Heart Rate 1: 89 bpm Height: 5' SpO2: 96% Weight: 180 lbs 10/09/2015 Blood Pressure 1: 124/76 Code: 8480-6 BMI: 34.6 Code: 89559-6 Heart Rate 1: 88 bpm Height: 5' SpO2: 96% Weight: 180 lbs 06/12/2015 Blood Pressure 1: 148/74 Code: 8480-6 BMI: 33.4 Code: 94535-5 Heart Rate 1: 70 bpm Height: 5' SpO2: 96% Weight: 174 lbs 06/05/2015 Blood Pressure 1: 142/82 Code: 8480-6 BMI: 33.2 Code: 48700-5 Heart Rate 1: 72 bpm Height: 5' Weight: 173 lbs 05/15/2015 Blood Pressure 1: 118/80 Code: 8480-6 BMI: 33.6 Code: 55951-5 Heart Rate 1: 82 bpm Height: 5' Weight: 175 lbs 02/06/2015 Blood Pressure 1: 122/76 Code: 8480-6 BMI: 34.6 Code: 95159-3 Heart Rate 1: 58 bpm Height: 5' Weight: 180 lbs 01/10/2015 Blood Pressure 1: 158/90 Code: 8480-6 Blood Pressure 2: 152/90 Code: 8480-6 BMI: 34.6 Code: 86527-3 Heart Rate 1: 68 bpm Height: 5' Weight: 180 lbs 07/19/2014 Blood Pressure 1: 142/78 Code: 8480-6 BMI: 33.6 Code: 37770-0 Heart Rate 1: 56 bpm Height: 5' Weight: 175 lbs 06/17/2014 Blood Pressure 1: 128/86 Code: 8480-6 Heart Rate 1: 66 bpm SpO2: 98% Weight: 172 lbs 04/19/2014 Blood Pressure 1: 152/82 Code: 8480-6 BMI: 32.5 Code: 70047-0 Heart Rate 1: 60 bpm Height: 5' Weight: 169 lbs 04/11/2014 Blood Pressure 1: 120/80 Code: 8480-6 BMI: 33.4 Code: 49061-1 Heart Rate 1: 64 bpm Height: 5' Weight: 174 lbs 03/10/2014 Blood Pressure 1: 136/64 Code: 8480-6 BMI: 32.7 Code: 53546-0 Heart Rate 1: 76 bpm Height: 5' Weight: 170 lbs 02/02/2014 Blood Pressure 1: 160/76 Code: 8480-6 BMI: 32.7 Code: 89989-3 Heart Rate 1: 64 bpm Height: 5' Weight: 170 lbs 10/25/2013 Blood Pressure 1: 164/82 Code: 8480-6 BMI: 31.9 Code: 93350-3 Heart Rate 1: 60 bpm Height: 5' Weight: 166 lbs 08/24/2013 Blood Pressure 1: 138/88 Code: 8480-6 Heart Rate 1: 80 bpm Weight: 07/26/2013 Blood Pressure 1: 154/70 Code: 8480-6 Heart Rate 1: 72 bpm Weight: 162 lbs 06/30/2013 Blood Pressure 1: 182/86 Code: 8480-6 Heart Rate 1: 80 bpm Weight: 06/24/2013 Blood Pressure 1: 148/68 Code: 8480-6 BMI: 31.3 Code: 46878-6 Heart Rate 1: 72 bpm Height: 5' [...] 1: 142/88 Code: 8480-6 BMI: 30.6 Code: 58137-6 Heart Rate 1: 64 bpm Height: 5' [...] 1: 180/96 Code: 8480-6 BMI: 30.5 Code: 73716-4 Heart Rate 1: 76 bpm Height: 5' Respiratory Rate: 16 bpm Weight: 159 lbs 02/19/2012 Blood Pressure 1: 150/70 Code: 8480-6 Blood Pressure 2: 160/78 Code: 8480-6 Heart Rate 1: 76 bpm Respiratory Rate: 16 bpm Weight: 158 lbs 01/23/2012 Blood Pressure 1: 140/84 Code: 8480-6 BMI: 30.3 Code: 45423-6 Heart Rate 1: 68 bpm Height: 5' Respiratory Rate: 16 bpm SpO2: 98% Temperature: 37.0 (C ) / 98.6 (F) Weight: 158 lbs 01/02/2012 Blood Pressure 1: 142/92 Code: 8480-6 BMI: 30.7 Code: 00997-3 Heart Rate 1: 72 bpm Height: 5' Respiratory Rate: 16 bpm Weight: 160 lbs 12/20/2011 Blood Pressure 1: 170/84 Code: 8480-6 BMI: 30.0 Code: 60032-0 Heart Rate 1: 70 bpm Height: 5' Respiratory Rate: 16 bpm Weight: 156 lbs Functional Status No Functional Status data History of Present Illness Symptom Name Status Resu lt Effective Date Notes Alleviating Factors OT C medications 02/16/2019 [facility] [...] in readings 10/14/2018 None Pertinent Findings maureen ziness 10/14/2018 "once in a while"- thinks that [...] 06/12/2015 None rash Location-Head/Neck on the right [facility] 06/12/2015 None rash Location-Head/Neck on the right [...] dizziness 03/10/2012 None cough Location in the roat 02/25/2012 pt states it [facility] and [...] Encounters Encounter Performer Loca tion Codes Date ([id number]) 94135 EST. 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 P ATIENT, LEVEL III Diagnosis: Cough[ICD10: R05] Diagnosis: Acute upper respiratory infection, unspecified[ICD10: J06.9] [facility] CPT-4: 39319 01/21/2019 ([id number]) 25729 EST. P ATIENT, LEVEL IV Diagnosis: Essential (primary) hypertension[ICD10: I10] Diagnosis: Mixed hyperlipidemia[ICD10: E78.2] Zoya Varela MD, [facility] CPT- 4: 19008 10/14/2018 ([id number]) 65065 EST. P ATIENT, LEVEL III Diagnosis: Essential (primary) hypertension[ICD10: I10] Diagnosis: Other specified cardiac arrhythmias[ICD10: I49.8] Zoya Varela [facility] C CPT-4: 52632 09/22/2018 ([id number]) 83578 EST. P ATIENT, LEVEL IV Diagnosis: Essential (primary) hypertension[ICD10: I10] Diagnosis: Allergic rhinitis due to pollen[ICD10: J30.1] Diagnosis: Sciatica, right side[ICD10: M54.31] Zoya Varela MD, [facility] CPT- 4: 35653 08/17/2018 ([id number]) 77756 EST. 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 P ATIENT, LEVEL III Diagnosis: Acute upper respiratory infection, unspecified[ICD10: J06.9] Kacy Varela MD, [facility] CPT-4: 38496 05/04/2018 ([id number]) 24829 EST. P ATIENT, LEVEL IV Diagnosis: Essential (primary) hypertension[ICD10: I10] Diagnosis: Type 2 diabetes mellitus without complications[ICD10: E11.9] Diagnosis: Mixed hyperlipidemia[ICD10: E78.2] Diagnosis: Localized edema[ICD10: R60.0] Zoya Varela MD, [facility] CPT-4: 22639 02/04/2018 ([id number]) 33131 EST. P ATIENT, LEVEL IV Diagnosis: Essential (primary) hypertension[ICD10: I10] Zoya [facility] CPT-4: 55851 09/17/2017 ([id number]) 25302 EST. P ATIENT, LEVEL III Diagnosis: Allergic contact dermatitis due to plants, except food[ICD10: L23.7] Kacy Varela MD, [facility] CPT-4: 81284 06/23/2017 ([id number]) 13703 EST. P ATIENT, LEVEL IV Diagnosis: Essential (primary) hypertension[ICD10: I10] Diagnosis: Mixed hyperlipidemia[ICD10: E78.2] Zoya Varela MD, [facility] CPT- 4: 55793 05/13/2017 ([id number]) 62974 EST. P ATIENT, LEVEL III Diagnosis: Allergic contact dermatitis due to plants, except food[ICD10: L23.7] Kacy Varela MD, [facility] CPT-4: 72975 03/21/2017 28897 EST. PATIENT, LEVEL III Diagnosis: Bitten or stung by nonvenomous insect and other nonvenomous arthropods, initial encounter[ICD10: W57.XXXA] Diagnosis: Cellulitis of left lower limb[ICD10: L03.116] Laura Varela MD, [facility] CPT-4: 15222 03/19/2017 ([id number]) 78737 EST. P ATIENT, LEVEL IV Diagnosis: Type 2 diabetes mellitus without complications[ICD10: E11.9] Diagnosis: Essential (primary) hypertension[ICD10: I10] Diagnosis: Other specified epidermal thickening[ICD10: L85.8] Zoya Varela MD, [facility] CPT-4: 33484 01/14/2017 57283 EST. PATIENT, LEVEL III Diagnosis: Glossodynia[ICD10: K14.6] Kacy Varela MD, [facility] CPT- 4: 60389 09/23/2016 ([id number]) 19217 EST. P ATIENT, LEVEL IV Diagnosis: Encounter for screening mammogram for malignant neoplasm of breast[ICD10: Z12.31] Diagnosis: Encounter for immunization[ICD10: Z23] Zoya Varela MD, [facility] CPT-4: 45602 09/16/2016 ([id number]) 94287 EST. P ATIENT, LEVEL III Diagnosis: Diseases of lips[ICD10: K13.0] Diagnosis: Allergic rhinitis due to pollen[ICD10: J30.1] Kacy Varela MD, [facility] CPT-4: 48196 06/25/2016 ([id number]) 58736 EST. P ATIENT, LEVEL III Diagnosis: Essential (primary) hypertension[ICD10: I10] Kacy Varela MD, [facility] CPT-4: 08283 06/17/2016 86283 EST. PATIENT, LEVEL IV Diagnosis: Other acute sinusitis[ICD10: J01.80] Diagnosis: Acute laryngopharyngitis[ICD10: J06.0] Diagnosis: Other allergic rhinitis[ICD10: J30.89] Laura Varela MD, [facility] CPT-4: 41799 04/03/2016 ([id number]) 69002 EST. P ATIENT, LEVEL IV Diagnosis: Essential (primary) hypertension[ICD10: I10] Diagnosis: Localized edema[ICD10: R60.0] Diagnosis: Polyneuropathy, unspecified[ICD10: G62.9] Zoya Varela MD, [facility] CPT-4: 33526 03/13/2016 ([id number]) 33310 EST. P ATIENT, LEVEL IV Diagnosis: Essential (primary) hypertension[ICD10: I10] Diagnosis: Localized edema[ICD10: R60.0] Diagnosis: Type 2 diabetes mellitus without complications[ICD10: E11.9] Zoya Varela MD, [facility] CPT-4: 83531 01/30/2016 97322 EST. PATIENT, LEVEL IV Diagnosis: Localized edema[ICD10: R60.0] Laura Varela MD, [facility] CPT-4: 59475 12/21/2015 ([id number]) 01691 EST. P ATIENT, LEVEL III Diagnosis: Essential (primary) hypertension[ICD10: I10] Diagnosis: Allergic rhinitis due to pollen[ICD10: J30.1] Diagnosis: Cervicalgia[ICD10: M54.2] Kacy Varela MD, [facility] CPT- 4: 99031 10/09/2015 48471 EST. PATIENT, LEVEL II Diagnosis: Contact dermatitis[ICD9: 692.9] Kacy Varela MD, [facility] CPT- 4: 62908 06/12/2015 ([id number]) 06213 EST. P ATIENT, LEVEL III Diagnosis: ESSENTIAL HYPERTENSION[ICD9: 401.9] Diagnosis: DIABETES TYPE II[ICD9: 250.00] Diagnosis: Anxiety[ICD9: 300.00] Kacy Varela MD, [facility] CPT-4: 13686 06/05/2015 ([id number]) 41774 EST. P ATIENT, LEVEL IV Diagnosis: Anxiety[ICD9: 300.00] Diagnosis: ALLERGIC RHINITIS[ICD9: 477.9] Diagnosis: ESOPHAGEAL REFLUX[ICD9: 530.81] Kacy Varela MD, [facility] CPT- 4: 74876 05/15/2015 ([id number]) 36756 EST. P ATIENT, LEVEL III Diagnosis: ESSENTIAL HYPERTENSION[ICD9: 401.9] Zoya Varela MD, [facility] CPT- 4: 04822 02/06/2015 ([id number]) 56873 EST. P ATIENT, LEVEL IV Diagnosis: ESSENTIAL HYPERTENSION[ICD9: 401.9] Diagnosis: EDEMA[ICD9: 782.3] Diagnosis: DIABETES TYPE II[ICD9: 250.00] Zoya Varela MD, [facility] CPT-4: 51053 01/10/2015 ([id number]) 37421 EST. P ATIENT, LEVEL IV Diagnosis: ESSENTIAL HYPERTENSION[ICD9: 401.9] Diagnosis: DIABETES TYPE II[ICD9: 250.00] Zoya Varela MD, [facility] CPT-4: 15914 07/19/2014 ([id number]) 97605 EST. P ATIENT, LEVEL III Diagnosis: Left ankle pain[ICD9: 719.47] Kacy Varela MD, [facility] CPT- 4: 55290 06/17/2014 ([id number]) 47110 EST. P ATIENT, LEVEL III Diagnosis: ESSENTIAL HYPERTENSION[ICD9: 401.9] Diagnosis: Elevated blood sugar[ICD9: 790.29] Zoay Varela MD, [facility] CPT- 4: 23373 04/19/2014 ([id number]) 92966 EST. P ATIENT, LEVEL IV Diagnosis: ESSENTIAL HYPERTENSION[SNOMED: 35770949] Diagnosis: ESOPHAGEAL REFLUX[ICD9: 530.81] Zoya Varela MD, [facility] CPT-4: 03046 04/11/2014 ([id number]) 62471 EST. P ATIENT, LEVEL IV Diagnosis: ALLERGIC RHINITIS[ICD9: 477.9] Diagnosis: Anxiety[ICD9: 300.00] Diagnosis: Dyspnea[ICD9: 786.09] Diagnosis: ESOPHAGEAL REFLUX[ICD9: 530.81] Kacy Varela MD, [facility] CPT- 4: 82570 03/10/2014 ([id number]) 47372 EST. P ATIENT, LEVEL III Diagnosis: ALLERGIC RHINITIS[ICD9: 477.9] Diagnosis: ESSENTIAL HYPERTENSION[SNOMED: 27196196] Kacy Varela MD, [facility] CPT-4: 45061 02/02/2014 ([id number]) 43050 EST. P ATIENT, LEVEL III Diagnosis: ESSENTIAL HYPERTENSION[SNOMED: 15287287] Diagnosis: Skin irritation[ICD9: 709.9] Zoya Varela MD, [facility] CPT-4: 23352 10/25/2013 ([id number]) 03378 EST. P ATIENT, LEVEL III Diagnosis: HYPERLIPIDEMIA[ICD9: 272.4] Diagnosis: ESSENTIAL HYPERTENSION[SNOMED: 19066710] Diagnosis: EDEMA[ICD9: 782.3] Diagnosis: Encounter for long-term (current) use of other medications[ICD9: V58.69] Zoya Varela MD, [facility] CPT-4: 04949 08/24/2013 ([id number]) 77469 EST. P ATIENT, LEVEL III Diagnosis: ESSENTIAL HYPERTENSION[SNOMED: 72662858] Zoya Varela MD, C CPT-4: 83755 07/26/2013 ([id number]) 70236 EST. P ATIENT, LEVEL III Diagnosis: ESSENTIAL HYPERTENSION[SNOMED: 19605467] Zoya Varela MD, C CPT-4: 19992 06/30/2013 ([id number]) 24198 EST. P ATIENT, LEVEL III Diagnosis: ESSENTIAL HYPERTENSION[SNOMED: 98854094] Zoya Varela MD, C CPT-4: 60173 06/24/2013 ([id number]) 73007 EST. P ATIENT, LEVEL IV Diagnosis: ESSENTIAL HYPERTENSION[SNOMED: 79266364] Diagnosis: Leg pain[ICD9: 729.5] Diagnosis: Leg swelling[ICD9: 729.81] Zoya Varela MD, [facility] CPT-4: 63402 12/01/2012 ([id number]) 13879 EST. P ATIENT, LEVEL III Diagnosis: Shingles[ICD9: 053.9] Zoya Varela MD, [facility] CPT-4: 70942 10/19/2012 ([id number]) 60821 EST. P ATIENT, LEVEL IV Diagnosis: EDEMA[ICD9: 782.3] Diagnosis: ESSENTIAL HYPERTENSION[SNOMED: 47576591] Zoya Varela MD, C CPT-4: 12087 10/07/2012 ([id number]) 82633 EST. P ATIENT, LEVEL IV Diagnosis: ESSENTIAL HYPERTENSION[SNOMED: 80128130] Diagnosis: EDEMA[ICD9: 782.3] Diagnosis: Irritable bowel disease[ICD9: 564.1] Zoya Varela MD, [facility] CPT-4: 42683 2012 ([id number]) 67937 EST. P ATIENT, LEVEL III Diagnosis: ESSENTIAL HYPERTENSION[SNOMED: 47085594] Zoya Varela MD, C CPT-4: 01594 08/18/2012 ([id number]) 62500 EST. P ATIENT, LEVEL III Diagnosis: ESSENTIAL HYPERTENSION[SNOMED: 88700846] Zoya Varela MD, C CPT-4: 27620 08/04/2012 ([id number]) 93556 EST. P ATIENT, LEVEL IV Diagnosis: ESSENTIAL HYPERTENSION[SNOMED: 97784887] Diagnosis: Lumbago[ICD9: 724.2] Diagnosis: HYPERLIPIDEMIA[ICD9: 272.4] Zoya Varela MD, [facility] CPT-4: 11687 07/01/2012 ([id number]) 77355 EST. P ATIENT, LEVEL III Diagnosis: ESSENTIAL HYPERTENSION[SNOMED: 60214200] Zoya Varela MD, C CPT-4: 20119 05/20/2012 ([id number]) 65632 EST. P ATIENT, LEVEL IV Diagnosis: ESSENTIAL HYPERTENSION[SNOMED: 90992250] Diagnosis: Hot flash, menopausal[ICD9: 627.2] Zoya Varela MD, [facility] CPT- 4: 35162 04/20/2012 74504 EST. PATIENT, LEVEL IV Diagnosis: SPASM OF MUSCLE[ICD9: 728.85] Diagnosis: Back pain[ICD9: 724.5] Diagnosis: ESSENTIAL HYPERTENSION[SNOMED: 23723276] Zoya Varela MD, C CPT-4: 06757 03/10/2012 ([id number]) 76158 EST. 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 P ATIENT, LEVEL III Diagnosis: ESSENTIAL HYPERTENSION[SNOMED: 53316700] Zoya Varela MD, [facility] CPT-4: 49658 02/19/2012 31386 EST. PATIENT, LEVEL IV Diagnosis: ESSENTIAL HYPERTENSION[SNOMED: 77197154] Diagnosis: Cough[ICD9: 786.2] Kacy Varela MD, [facility] CPT-4: 32373 01/23/2012 ([id number]) 93228 EST. P ATIENT, LEVEL IV Diagnosis: HYPERLIPIDEMIA[ICD9: 272.4] Diagnosis: ESSENTIAL HYPERTENSION[SNOMED: 65765625] Zoya Varela MD, C CPT-4: 31207 01/02/2012 OFFICE VISIT, NEW - LEVEL 4 Diagnosis: ESSENTIAL HYPERTENSION[SNOMED: 67439783] Diagnosis: HYPERLIPIDEMIA[ICD9: 272.4] Diagnosis: IMPACTED CERUMEN[ICD9: 380.4] Diagnosis: Muscle spasm[ICD9: 728.85] Diagnosis: CHRONIC TENSION HEADACHE[ICD9: 339.12] Diagnosis: Neck pain, chronic[ICD9: 723.1] Diagnosis: Change in skin mole[ICD9: 216.9] Zoya Varela MD, [facility] CPT-4: 65502 12/20/2011 Plan of Care Planned Activity Notes C odes Status Date Visit Plan: Hypertension - well con trolled [...] sores. 02/16/2019 Appointment: Zoya Varela WPtel: [phone] [facility] (15 min) Moderate 02/16/2019 Patient Education: Patient [...] of plan. 01/21/2019 Appointment: Kacy Moses WPtel: [facility]8 [phone] [place] (15 min) Moderate 01/21/2019 Patient Education: Patient Medication Summary Completed 01/21/2019 Appointment: Zoya Varela WPtel: [phone] [facility] [place] (15 min) Moderate 12/15/2018 Visit Plan: [...] to medications. 10/14/2018 [facility]ment[phone] [place] (15 min) Moderate 10/14/2018 Patient Education: [...] metoprolol, will have pt go see her reformatory attendant as we may need to consider stopping the beta ori completely versus potential need for pacemaker. 09/22/2018 Appointment: [phone] (15 min) Moderate 09/22/2018 Patient Education: Patient Medication Summary Completed 09/22/2018 Appointment: [facility] (15 min) Moderate 09/09/2018 Visit Plan: [...] she can be seen by Oncology in [place]. 06/08/2018 Appointment: Zoya Varela WPtel: [phone] [facility] [place] (15 min) Moderate 06/08/2018 Patient Education: Patient Medication Summary Completed 06/08/2018 Visit Plan: URI - Pt advised to inc rease fluids, vitamin C. Discussed natural and expected course of this diagnosis and need to alert me if symptoms do not follow expected course, or if any worse. RX sent to patient's pharmacy. 05/04/2018 Appointment: [phone] [place] (30 min) Complex 05/04/2018 Patient [...] lower extremities. 02/04/2018 Appointment: [facility]el[facility] [place] (15 min) Moderate 02/04/2018 Patient Education: [...] Summary Completed 02/03/2018 Appointment: Laura Velasco WPtel: [facility]4 [facility] - Annual Wellness Visit 01/28/2018 Appointment: Zoya Varela WPtel: [facility]0 [facility] (15 min) Moderate 01/15/2018 Visit Plan: Hypertension [...] Dr. [place]. 09/17/2017 Appointment: Zoya Varela WPtel: [phone] [facility] (15 min) Moderate 09/17/2017 Patient Education: Patient Medication Summary Completed 09/17/2017 Patient Education: Obesity Completed 09/17/2017 Patient Education: Hypertension Completed 09/17/2017 Care Plan: SCREENINGMAMMOGRAPHYDIGITAL [facility] 20988-3 Pending 09/17/2017 Visit Plan: Poison Sarah -kenalog inj ection today in the office-start prednisone tomorrow pt is to use topical treatments as directed. Pt is cleanse clothing in hot water with soap, and call if symptoms do not improve or if they worsen. 06/23/2017 Appointment: Kacy Moses WPtel: [facility]0 [place] [phone] (15 min) Moderate 06/23/2017 Patient Education: Patient [...] to medications. 05/13/2017 Appointment: Zoya Varela WPtel: [facility]0 [address] (15 min) Moderate 05/13/2017 Patient Education: Patient [...] they worsen. 03/21/2017 Appointment: Kacy Moses WPtel: [facility]3 [phone] (15 min) Moderate 03/21/2017 Patient Education: Patient [...] in pain. 03/19/2017 Appointment: Laura Velasco WPtel: [facility] (15 min) Moderate 03/19/2017 Patient Education: Patient [...] in hearing. 01/22/2017 Appointment: Laura Velasco WPtel: [facility]3 [address] - Annual Wellness Visit 01/22/2017 Appointment: Nurse Visit 01/22/2017 Patient Education: Patient Medication Summary Completed 01/22/2017 Visit Plan: Diabetes Mellitus - [place] - per recent FSBS reports. I have [...] at home. 01/14/2017 Appointment: Zoya Varela WPtel: [phone] [facility] (15 min) Moderate 01/14/2017 Patient Education: Patient [...] plan. 09/23/2016 Appointment: Kacy Moses WPtel: [phone] [phone] [place] (15 min) Moderate 09/23/2016 Patient Education: [...] medications. 09/16/2016 Appointment: Zoya Varela WPtel: [phone] [facility] [place] (15 min) Moderate 09/16/2016 Patient Education: Patient Medication Summary Completed 09/16/2016 Patient Education: Obesity Completed 09/16/2016 Care Plan: SCREENINGMAMMOGRAPHYDIGITAL [facility] 17755-8 Pending 09/16/2016 Visit Plan: Cracked/painful lips-ba cterial [...] any worse. 06/25/2016 Appointment: Kacy Moses WPtel: [facility]3 [phone] (15 min) Moderate 06/25/2016 Patient Education: Patient [...] spray. 04/03/2016 Appointment: Kacy Moses WPtel: [phone] [phone] [place] (30 min) Complex 04/03/2016 Patient Education: Patient Medication Summary Completed 04/03/2016 Patient Education: Obesity Completed 04/03/2016 Visit Plan: Hypertension - well [place] robb[place] - continue with current medications, continue [...] Hypertension Completed 03/13/2016 Appointment: Zoya Varela WPtel: [facility]5 [facility] (15 min) Moderate 02/28/2016 Appointment: Zoya Varela WPtel: [facility]5 [facility] (15 min) Moderate 02/01/2016 Visit Plan: Hypertension [...] for treatment. 01/30/2016 Appointment: Zoya Varela WPtel: [address] [place] [address] (15 min) Moderate 01/30/2016 Patient Education: Patient [...] home. 02/06/2015 Appointment: Zoya Varela WPtel: [phone] [place] [id number] Follow up 02/06/2015 Patient Education: Patient Medication [...] edema. 01/10/2015 Appointment: Zoya Varela WPtel: [phone] [facility] Sick 01/10/2015 Patient Education: Patient Medication Summary [...] less controlled. 07/19/2014 Appointment: [facility]la [facility]Ptel: 101 [facility] Follow up 07/19/2014 Patient Education: Patient Medication Summary Completed 07/19/2014 Patient Education: Hypertension Completed 07/19/2014 Care Plan: SCREENINGMAMMOGRAPHYDIGITAL [facility] : 93177-4 Ordered 07/19/2014 Visit Plan: Left ankle pain-sprain- [...] home. 04/19/2014 Appointment: [facility] Moses [facility]Ptel[phone] Diabetic education 04/19/2014 Patient Education: Patient [...] to medications. 04/11/2014 Appointment: Zoya Varela WPtel: [facility] Follow up 04/11/2014 Patient Education: Patient [...] spray in the nasal steroid allergy spray. Ydqvxiq-kwmjkehurbdw-iypziug xanax at bedtime Esophageal Reflux - the patient has been counseled against excessive intake of caffiene, spicy foods, peppermint, and cinnamon - all of which can exacerbate esophageal reflux. The patient is to take medications as prescribed and call the office if the symptoms are not improving. 03/10/2014 Appointment: Z[facility] Varela WPtel[phone] Other 03/10/2014 Patient Education: Patient Medication Summary [...] allergy spray. 02/02/2014 Appointment: Kacy Moses WPtel: [phone] [facility] 02/02/2014 Patient Education: Patient Medication Summary Completed [...] the site. 10/25/2013 Appointment: Z[facility] Varela WPtel: [phone] Follow up 10/25/2013 Patient Education: Patient Medication [...] BEDTIME 08/24/2013 Appointment: [facility]arela WPtel: [facility] Follow up 08/24/2013 Patient Education: Patient Medication [...] concerns. 07/26/2013 Appointment: [facility]la [facility]Ptel[phone] Follow up 07/26/2013 Patient Education: Patient Medication [...] NOT IMPROVE. 06/30/2013 Appointment: Zoya Varela WPtel: [address] [place], [place] [phone] Other 06/30/2013 Patient Education: Patient Medication Summary [...] acute concerns. 06/24/2013 Appointment: Kacy Moses WPtel: [address] [place], [place] [phone] Follow up 06/24/2013 Patient Education: Patient Medication Summary Completed 06/24/2013 Patient Education: Hypertension Completed 06/24/2013 Appointment: Zoya Varela WPtel: [address] [place], [place] [phone] [place] Other 03/23/2013 Visit Plan: Hypotension - pt is on chronic antihypertensive medication - the medication has been adjusted down to attempt to alleviate the low blood pressures. Leg pain - Leg swelling - pt to have ultrasound on her right lower leg due to post-operative swelling and pain. 12/01/2012 Appointment: Zoya Varela WPtel: [address] [place], [place] [phone] Follow up 12/01/2012 Patient Education: Patient Medication Summary Completed 12/01/2012 Patient Education: Hypertension Completed 12/01/2012 Appointment: Zoya Varela WPtel: [facility]5 [facility] Follow up 10/20/2012 Visit Plan: Shingles - [...] considered contagious. 10/19/2012 Appointment: Zoya Varela WPtel: [facility]2 [facility] Other 10/19/2012 Patient Education: Patient Medication Summary [...] peripheral edema. 10/07/2012 Appointment: Kacy Moses WPtel: [phone] [phone] [place] Other 10/07/2012 Patient Education: Hypertension Completed 10/07/2012 [...] edema. 2012 Appointment: Z[facility] Varela WPtel: [phone] [place] Other 2012 Patient Education: Patient Medication Summary [...] THE EVENING. 08/18/2012 Appointment: [facility]arela WPtel: [phone] Follow up 08/18/2012 Patient Education: Patient [...] knees. 08/04/2012 Appointment: Z[facility] Varela WPtel: [phone] [place] Follow up 08/04/2012 Patient Education: Patient Medication [...] for acute concerns. CUT THE AMLODIPINE IN 2 AND TAKE ONE HALF OF THE AMLODIPINE AT BEDTIME AND ONEHALF OF THE AMLODIPINE IN THE MORNING. Back pain/ nerve pain- recommended pt to start on gabapentin 100 mg at night x 1 week, then increase to twice daily. 07/01/2012 Appointment: Zoya Varela WPtel: [facility]2 [address] Other 07/01/2012 Patient Education: Patient Medication Summary [...] two weeks 05/20/2012 Appointment: Zoya Varela WPtel: [address] [place] [address] Follow up 05/20/2012 Patient Education: Patient Medication Summary Completed 05/20/2012 Patient Education: High Blood Pressure: Essential Hypertension Completed 05/20/2012 Appointment: Zoya Varela WPtel: [address] [place] [address] Other 05/11/2012 Visit Plan: Hypertension - uncontro [...] bid dosing. 04/20/2012 Appointment: Zoya Varela WPtel: [phone] [facility] Follow up 04/20/2012 Patient Education: Patient Medication [...] few weeks. 03/10/2012 Appointment: Zoya Varela WPtel: [phone] [facility] Other 03/10/2012 Patient Education: Patient Medication Summary [...] with codeine. 02/25/2012 Appointment: [facility]Ptel: [phone] Other 02/25/2012 Patient Education: Patient Medication Summary [...] the office. 02/19/2012 Appointment: Zoya Varela WPtel: [phone] [facility] Other 02/19/2012 Patient Education: Patient Medication Summary [...] office 01/23/2012 Appointment: Kacy Moses WPtel: [phone] [phone] Other 01/23/2012 Patient Education: Patient Medication Summary [...] TWICE DAILY. 01/02/2012 Appointment: Zoya Varela WPtel: [address] [place] [address] Other 01/02/2012 Patient Education: Patient Medication Summary [...] 2 wks. 12/20/2011 Appointment: Zoya Varela WPtel: [address] [place] [address] New Patient 12/20/2011 Patient Education: Patient Medication [...] metoprolol, will have pt go see her reformatory attendant as we may need to consider stopping [...] blood pressure readings in a few weeks. CLARITIN 10MG DAILY PEPCID 20MG TWICE DAILY [...] for treatment. . If the clonidine p [facility] has the blood pressures at or below [...] she can be seen by Oncology in [place]. . Tick - tick with h ead [...] spray in the nasal steroid allergy spray. Moajgxu-vjigtsranzjx-fvbbgxx xanax at bedtime Esophageal Reflux - the [...]
[2020-05-26 02:41] LABS: BILIRUBIN,URINE NEGATIVE (NEGATIVE); CLARITY,URINE CLOUDY; COLOR,URINE AMBER; GLUCOSE, URINE (UA) NEGATIVE (NEGATIVE); KETONES,URINE NEGATIVE (NEGATIVE); LEUKOCYTE ESTERASE ,URINE 1+ (NEGATIVE); NITRITE,URINE NEGATIVE (NEGATIVE); PROTEIN,URINE TRACE (NEGATIVE)
--- OUTSIDE RECORDS SUMMARY | 2020-05-26 02:43 | XMS REPORT | CCD ---
Author Author Natali Varela Organization [facility] Address [address] [place] [address] Phone Care Team Providers Care Bond Manager Name Role Phone PP Unavailable CCM Unavailable Summary Purpose Interface Exchange Insurance Providers Payer name Policy type / Coverage type Covered republican ID Effective Begin Date Effective End Date WPS Medicare Part B Medicare Part B [id number] Unknown vivioO INSURANCE [employer] Medicare Part B [id number] Unknown Family history Mother Diagnosis Age At Onset Liver Failure Unknown Diabetes mellitus Type 2 Unknown Hyperlipidemia Unknown Hypertension Unknown Cancer Unknown Arthritis Unknown Father Diagnosis Age At Onset Liver Failure Unknown Cancer Unknown Social History Social History Element Codes Description Effective Dates Marital status Unknown M arried 12/12/2011 Number of children Unknown 3 12/12/[address]: 8008705 Former smoker quit in 199212/12/2011 Allergies, Adverse [...] Date Stop Date Sta tus Fill Instructions prednisone 10 mg tab lets in a dose pack RxNorm: 721289 1 Tablet(s) PO UD 04/12/2019 04/17/2019 In active 6-5-4-3-2-1 amlodipine 5 mg tablet RxNorm: 533092 TAKE ONE TABLET BY MOUTH DAILY 03/26/2019 12/20/2019 Ac tive atorvastatin 20 mg t ablet RxNorm: 908287 TAKE ONE TABLET BY MO UTH DAILY 03/26/2019 09/21/2019 Ac tive metoprolol tartrate 100 mg tablet RxNorm: 401960 1.5 Tablet(s) BID 02/16/2019 04/10/2020 Active doxazosin 4 mg tablet RxNorm: 997459 1 Tablet(s) UD 1.5 tab in AM and 1 tab a t hs 02/16/2019 09/13/2019 Ac tive acyclovir 800 mg tablet RxNorm: 142922 1 Tablet(s) PO TID take for cold sore ou tbreaks 02/16/2019 04/26/2019 Inactive Xanax 0.25 mg tablet RxNorm: 959089 1/2-1 Tablet(s) PO QDAY PRN 02/03/2019 05/03/2019 Inactive cyclobenzaprine 10 m g tablet RxNorm: 219731 TAKE ONE TABLET BY [facility] EVERY 8 HOURS NEEDED 01/27/2019 03/07/2019 Inactive doxazosin 4 mg tablet RxNorm: 543369 Tablet(s) TAKE ONE TABLET BY MOUTH TWO T IMES A DAY 01/21/2019 02/15/2019 Inactive doxazosin 4 mg tablet RxNorm: 477573 Tablet(s) TAKE ONE AND ONE-HALF (1 & 1/2 ) TABLET BY MOUTH BY MOUTH TWO TIMES A DAY 11/12/2018 01/20/2019 Inactive cyclobenzaprine 10 m g tablet RxNorm: 093309 TAKE ONE TABLET BY [facility] EVERY 8 HOURS NEEDED 11/12/2018 12/01/2018 Inactive tramadol 50 mg tablet RxNorm: 576939 1-2 Tablet(s) PO Q8 as needed 10/02/2018 11/30/2018 In active metoprolol tartrate 100 mg tablet RxNorm: 947741 1 Tablet(s) BID 09/22/2018 02/15/2019 Inactive metoprolol tartrate 100 mg tablet RxNorm: 926617 TAKE ONE AND ONE-HALF (1 1/2) TABLETS BY MOUTH EVERY MORNING AND TAKE TWO TABLETS BY MOUTH EVERY EVENING 09/21/2018 09/21/2018 In active Xanax 0.25 mg tablet RxNorm: 097096 1/2-1 Tablet(s) PO QDAY PRN 08/19/2018 11/15/2018 Inactive cyclobenzaprine 10 m g tablet RxNorm: 187599 TAKE ONE TABLET BY MO UTH EVERY 8 HOURS NEEDED 07/01/2018 08/09/2018 Inactive atorvastatin 20 mg t ablet RxNorm: 075300 TAKE ONE TABLET BY MO UTH DAILY 06/29/2018 12/25/2018 In active atorvastatin 20 mg t ablet RxNorm: 832997 TAKE ONE TABLET BY MO UTH DAILY 06/29/2018 06/28/2018 In active pilocarpine 5 mg tablet RxNorm: 9541604 1 Tablet(s) PO BID 06/09/2018 06/08/2018 Inactive pilocarpine 5 mg tablet RxNorm: 2356093 1 Tablet(s) PO BID for dry mouth 06/09/2018 09/21/2018 In active Evoxac 30 mg capsule RxNorm: 887886 1 Capsule(s) PO BID as needed dry mouth 06/08/2018 06/08/2018 In active may substitute generic cyclobenzaprine 10 m g tablet RxNorm: 608315 TAKE ONE TABLET BY MO UTH EVERY 8 HOURS NEEDED 05/14/2018 06/30/2018 Inactive amoxicillin 500 mg c apsule RxNorm: 666449 1 Capsule(s) PO BID 05/04/2018 05/13/2018 Inactive amoxicillin 500 mg c apsule RxNorm: 310622 1 Capsule(s) PO BID 05/04/2018 05/03/2018 Inactive tramadol 50 mg tablet RxNorm: 566715 1-2 Tablet(s) PO Q8 as needed 04/24/2018 06/21/2018 In active Kenalog 40 mg/mL sylvia pension for injection RxNorm: 1639401 Milliliter(s) Inj 04/24/2018 04/24/2018 In active amlodipine 5 mg tablet RxNorm: 377291 Tablet(s) TAKE ONE TABLET BY MOUTH DAILY 04/02/2018 03/25/2019 In active Xanax 0.25 mg tablet RxNorm: 197965 1/2-1 Tablet(s) PO QDAY PRN 04/02/2018 10/13/2018 Inactive metoprolol tartrate 100 mg tablet RxNorm: 470612 TAKE ONE AND ONE-HALF (1 1/2) TABLETS BY MOUTH EVERY MORNING AND TAKE TWO TABLETS BY MOUTH EVERY EVENING 02/25/2018 09/20/2018 In active Keflex 500 mg capsule RxNorm: 434230 1 Capsule(s) PO TID 02/06/2018 02/15/2018 Inactive Keflex 500 mg capsule RxNorm: 366941 1 Capsule(s) PO TID 02/06/2018 02/05/2018 Inactive Zithromax Z-Kush 250 mg tablet RxNorm: 712744 1 Tablet(s) PO UD 02/02/2018 02/06/2018 Inactive 2 tabs on day 1 then 1 tab daily on days 2-5 doxazosin 4 mg tablet RxNorm: 511280 TAKE ONE AND ONE-HALF (1 & 1/2) TABLET B Y MOUTH BY MOUTH TWO TIMES A DAY 01/16/2018 11/11/2018 Inactive atorvastatin 20 mg t ablet RxNorm: 223296 TAKE ONE TABLET BY MO UT DAILY 12/31/2017 06/28/2018 In active furosemide 20 mg tablet RxNorm: 247895 TAKE ONE TABLET BY MOUTH DAILY NEEDED FOR EDEMA 12/26/2017 06/23/2018 Inactive potassium chloride E R 10 mEq tablet,extended release RxNorm: 799873 TAKE ONE TABLET BY MOUTH NEEDED WITH LASIX 12/26/2017 06/23/2018 Inactive Xanax 0.25 mg tablet RxNorm: 840181 1/2-1 Tablet(s) PO QDAY PRN 11/27/2017 08/18/2018 Inactive cyclobenzaprine 10 m g tablet RxNorm: 847779 TAKE ONE TABLET BY MO UTH EVERY 8 HOURS NEEDED 11/21/2017 02/08/2018 Inactive tramadol 50 mg tablet RxNorm: 456593 1-2 Tablet(s) PO Q8 as needed 10/28/2017 01/23/2018 In active metoprolol tartrate 100 mg tablet RxNorm: 957187 TAKE ONE AND ONE-HALF (1 1/2) TABLETS BY MOUTH EVERY MORNING AND TAKE TWO TABLETS BY MOUTH EVERY EVENING 10/28/2017 02/24/2018 In active cyclobenzaprine 10 m g tablet RxNorm: 770299 TAKE ONE TABLET BY MO UTH EVERY 8 HOURS NEEDED 08/27/2017 10/25/2017 Inactive Xanax 0.25 mg tablet RxNorm: 057242 1/2-1 Tablet(s) PO QDAY PRN 08/04/2017 04/01/2018 Inactive cyclobenzaprine 10 m g tablet RxNorm: 111630 TAKE ONE TABLET BY MO UTH EVERY 8 HOURS NEEDED 07/28/2017 08/16/2017 Inactive metoprolol tartrate 100 mg tablet RxNorm: 123424 TAKE ONE AND ONE-HALF (1 & 1/2) TABLET BY MOUTH EVERY MORNING AND TAKE TWO TABLETS BY MOUTH EVERY EVENING 07/28/2017 10/25/2017 In active cyclobenzaprine 10 m g tablet RxNorm: 227189 TAKE ONE TABLET BY MO UTH EVERY 8 HOURS NEEDED 06/30/2017 07/19/2017 Inactive prednisone 10 mg tab lets in a dose pack RxNorm: 853388 1 Tablet(s) PO UD 06/23/2017 06/28/2017 In active 6-5-4-3-2-1 mupirocin 2 % topica l ointment RxNorm: 919363 1 Application TOP BID 06/23/2017 07/02/2017 Inactive Kenalog 40 mg/mL sylvia pension for injection RxNorm: 8031347 Milliliter(s) Inj 06/23/2017 06/23/2017 In active cyclobenzaprine 10 m g tablet RxNorm: 158863 TAKE ONE TABLET BY MO UTH EVERY 8 HOURS NEEDED 06/09/2017 06/28/2017 Inactive meclizine 25 mg tablet RxNorm: 585622 1 Tablet(s) PO Q6 PRN as needed 1/2 - 1 pill every 6 hours as needed for vertigo 06/03/2017 07/14/2017 Inactive atorvastatin 20 mg t ablet RxNorm: 340056 TAKE ONE TABLET BY MO UTH DAILY 05/30/2017 11/25/2017 In active amlodipine 5 mg tablet RxNorm: 318890 TAKE ONE TABLET BY MOUTH DAILY 05/15/2017 04/01/2018 In active cyclobenzaprine 10 m g tablet RxNorm: 307391 TAKE ONE TABLET BY MO UTH EVERY 8 HOURS NEEDED 05/07/2017 05/26/2017 Inactive tramadol 50 mg tablet RxNorm: 142172 1-2 Tablet(s) PO Q8 as needed 04/07/2017 07/04/2017 In active cyclobenzaprine 10 m g tablet RxNorm: 585950 TAKE ONE TABLET BY MO UTH EVERY 8 HOURS NEEDED 04/07/2017 04/26/2017 Inactive Xanax 0.25 mg tablet RxNorm: 707898 1/2-1 Tablet(s) PO QDAY PRN 04/04/2017 06/02/2017 Inactive metoprolol tartrate 100 mg tablet RxNorm: 749400 TAKE ONE AND ONE-HALF (1 & 1/2) TABLET BY MOUTH EVERY MORNING AND TAKE TWO TABLETS BY MOUTH EVERY EVENING 03/28/2017 07/25/2017 In active prednisone 10 mg tab lets in a dose pack RxNorm: 885080 1 Tablet(s) PO UD 03/21/2017 03/26/2017 In active 6-5-4-3-2-1 Kenalog 40 mg/mL sylvia pension for injection RxNorm: 8457977 2 Milliliter(s) Inj 03/21/2017 03/21/2017 In active doxycycline hyclate 100 mg capsule RxNorm: 6087375 1 Capsule(s) PO BID 03/19/2017 03/28/2017 In active cyclobenzaprine 10 m g tablet RxNorm: 513546 TAKE ONE TABLET BY MO UTH EVERY 8 HOURS NEEDED 02/25/2017 03/16/2017 Inactive triamcinolone aceton pineda 0.1 % topical ointment RxNorm: 0614884 1 Application TOP TI D 02/21/2017 02/20/2017 Inactive triamcinolone aceton pineda 0.1 % topical ointment RxNorm: 7446503 1 Application TOP TI D 02/21/2017 03/02/2017 Inactive doxazosin 4 mg tablet RxNorm: 523111 TAKE ONE AND ONE-HALF (1 & 1/2) TABLET B Y MOUTH BY MOUTH TWO TIMES A DAY 02/14/2017 01/09/2018 Inactive cyclobenzaprine 10 m g tablet RxNorm: 953056 TAKE ONE TABLET BY MO UTH EVERY 8 HOURS NEEDED 01/27/2017 02/15/2017 Inactive ammonium lactate 12 % topical cream RxNorm: 001082 1 Application TOP BID 01/14/2017 02/12/2017 In active dispense one bottle of the cream potassium chloride E R 10 mEq tablet,extended release RxNorm: 574228 1 Tablet(s) PO PRN as needed with lasix 11/13/2016 12/25/2017 Inactive prn swelling furosemide 20 mg tablet RxNorm: 273427 1 Tablet(s) PO daily as needed edema 11/13/2016 01/11/2017 In active metoprolol tartrate 100 mg tablet RxNorm: 257337 TAKE ONE AND ONE-HALF (1 & 1/2) TABLET BY MOUTH EVERY MORNING AND TAKE TWO TABLETS BY MOUTH EVERY EVENING 11/01/2016 03/27/2017 In active atorvastatin 20 mg t ablet RxNorm: 140082 TAKE ONE TABLET BY MO UTH DAILY 10/31/2016 04/28/2017 In active cyclobenzaprine 10 m g tablet RxNorm: 884009 TAKE ONE TABLET BY MO UTH EVERY 8 HOURS NEEDED 10/25/2016 12/03/2016 Inactive Lyrica 25 mg capsule RxNorm: 727936 1 Tablet(s) PO BID 09/23/2016 01/13/2017 Inactive Lyrica 50 mg capsule RxNorm: 425891 1 Capsule(s) PO BID 09/16/2016 01/13/2017 Inactive amlodipine 5 mg tablet RxNorm: 211840 Tablet(s) TAKE ONE TABLET BY MOUTH DAILY 08/28/2016 05/14/2017 In active cyclobenzaprine 10 m g tablet RxNorm: 495302 TAKE ONE TABLET BY MO UTH EVERY 8 HOURS NEEDED 08/05/2016 09/13/2016 Inactive Xanax 0.25 mg tablet RxNorm: 547280 1/2-1 Tablet(s) PO QDAY PRN 07/16/2016 04/03/2017 Inactive amlodipine 5 mg tablet RxNorm: 481931 TAKE ONE TABLET BY MOUTH DAILY 06/28/2016 08/26/2016 In active metoprolol tartrate 100 mg tablet RxNorm: 073510 Tablet(s) TAKE ONE AN D ONE-HALF (1 & 1/2) TABLET BY MOUTH EVERY MORNING AND TAKE TWO TABLETS BY MOUTH EVERY EVENING 05/02/2016 05/02/2016 Inactive metoprolol tartrate 100 mg tablet RxNorm: 613133 Tablet(s) PO TAKE ONE AND ONE-HALF (1 & 1/2) TABLET BY MOUTH EVERY MORNING AND TAKE TWO TABLETS BY MOUTH EVERY EVENING 05/02/2016 05/01/2016 Inactive metoprolol tartrate 100 mg tablet RxNorm: 721230 Tablet(s) PO TAKE ONE AND ONE-HALF (1 & 1/2) TABLET BY MOUTH EVERY MORNING AND TAKE TWO TABLETS BY MOUTH EVERY EVENING 05/02/2016 10/28/2016 Inactive atorvastatin 20 mg t ablet RxNorm: 353040 TAKE ONE TABLET BY MO UTH DAILY 04/25/2016 10/21/2016 In active tramadol 50 mg tablet RxNorm: 327174 1-2 Tablet(s) PO Q8 as needed 04/25/2016 10/27/2017 In active cyclobenzaprine 10 m g tablet RxNorm: 429407 Tablet(s) PO TAKE ONE TABLET BY MOUTH EVERY 8 HOURS NEEDED 04/18/2016 06/16/2016 Inactive Kenalog 40 mg/mL sylvia pension for injection RxNorm: 9819174 1 Milliliter(s) Inj 04/04/2016 04/04/2016 In active Phenergan with Codei ne Syrup RxNorm: PO 04/03/2016 02/15/2019 Inactive Zithromax Z-Kush 250 mg tablet RxNorm: 064873 1 Tablet(s) PO UD 04/03/2016 04/07/2016 Inactive 2 tabs on day 1 then 1 tab daily on days 2-5 amlodipine 5 mg tablet RxNorm: 712210 TAKE ONE TABLET BY MOUTH DAILY 03/27/2016 06/24/2016 In active Flexeril 10 mg tablet RxNorm: 827992 TAKE ONE TABLET BY MOUTH EVERY 8 HOURS A S NEEDED 03/14/2016 04/02/2016 Inactive Vitamin B-12 ER 2,00 0 mcg tablet,extended release RxNorm: 978656 1 Tablet(s) PO daily 03/13/2016 No Stop Date Active Vitamin B-12 ER 2,00 0 mcg tablet,extended release RxNorm: 368323 1 Tablet(s) PO daily 03/13/2016 No Stop Date Active gabapentin 100 mg ca psule RxNorm: 853280 1 Capsule(s) PO BID 03/13/2016 09/15/2016 Inactive Flexeril 10 mg tablet RxNorm: 838053 Tablet(s) TAKE ONE TABLET BY MOUTH EVERY 8 HOURS NEEDED 02/08/2016 02/27/2016 Inactive Xanax 0.25 mg tablet RxNorm: 562164 1/2-1 Tablet(s) PO QDAY PRN 02/08/2016 07/15/2016 Inactive amlodipine 5 mg tablet RxNorm: 935031 1 Tablet(s) PO daily 02/06/2016 03/26/2016 Inactive furosemide 20 mg tablet RxNorm: 029122 1 Tablet(s) PO daily 01/30/2016 06/16/2016 Inactive amlodipine 10 mg tablet RxNorm: 169166 1/2 Tablet(s) PO daily 01/30/2016 02/05/2016 Inactive doxazosin 4 mg tablet RxNorm: 552175 1.5 Tablet(s) PO BID 01/30/2016 01/23/2017 Inactive Flexeril 10 mg tablet RxNorm: 516644 TAKE ONE TABLET BY MOUTH EVERY 8 HOURS A S NEEDED 01/10/2016 01/29/2016 Inactive potassium chloride E R 10 mEq tablet,extended release RxNorm: 871667 1 Tablet(s) PO PRN as needed with lasix 12/25/2015 06/16/2016 Inactive prn swelling amlodipine 10 mg tablet RxNorm: 745277 TAKE ONE TABLET BY MOUTH EVERY MORNING 12/25/2015 12/24/2015 In active amlodipine 10 mg tablet RxNorm: 590823 TAKE ONE TABLET BY MOUTH EVERY MORNING 12/25/2015 01/29/2016 In active furosemide 20 mg tablet RxNorm: 184240 1/2 Tablet(s) PO daily as needed edema 12/21/2015 01/19/2016 In active pt needs to take 10meq potassium on days she takes the lasix metoprolol tartrate 100 mg tablet RxNorm: 832818 TAKE ONE AND ONE-HALF (1 & 1/2) TABLET BY MOUTH EVERY MORNING AND TAKE TWO TABLETS BY MOUTH EVERY EVENING 11/08/2015 12/07/2015 In active Flonase Allergy Reli ef 50 mcg/actuation nasal spray,suspension RxNorm: [place] as needed PLACE 2 SPRAYS IN EACH NOSTRIL DAILY 10/09/2015 02/05/2016 Inactive Flexeril 10 mg tablet RxNorm: 126277 1 Tablet(s) PO TID PRN TAKE ONE TABLET B Y MOUTH EVERY 8 HOURS NEEDED 10/09/2015 12/07/2015 Inactive alprazolam 0.5 mg ta blet RxNorm: 141294 TAKE ONE TABLET BY [facility] AT BEDTIME NEEDED FOR ANXIETY 08/29/2015 11/23/2015 Inactive Flonase Allergy Reli ef 50 mcg/actuation nasal spray,suspension RxNorm: PLACE 2 SPRAYS IN EACH NOSTRIL DAILY 07/06/2015 10/08/2015 Inactive Kenalog 40 mg/mL sylvia pension for injection RxNorm: 8259078 Milliliter(s) Inj 06/12/2015 06/12/2015 In active prednisone 10 mg tab lets in a dose pack RxNorm: 294024 1 Tablet(s) PO UD 06/12/2015 06/17/2015 In active 6-5-4-3-2-1 acyclovir 800 mg tablet RxNorm: 882771 1 Tablet(s) PO TID 06/12/2015 06/21/2015 Inactive Xanax 0.25 mg tablet RxNorm: 030089 1/2-1 Tablet(s) PO QDAY PRN 05/15/2015 02/07/2016 Inactive Flonase Allergy Reli ef 50 mcg/actuation nasal spray,suspension RxNorm: 2 [place] NASAL daily 05/15/2015 06/13/2015 Inactive Kenalog 40 mg/mL sylvia pension for injection RxNorm: 5995299 Milliliter(s) Inj 05/15/2015 05/15/2015 In active metoprolol tartrate 100 mg tablet RxNorm: 932083 TAKE ONE AND ONE-HALF (1 & 1/2) TABLET BY MOUTH EVERY MORNING AND TAKE TWO TABLETS BY MOUTH EVERY EVENING 05/07/2015 06/05/2015 In active metoprolol tartrate 100 mg tablet RxNorm: 109612 TAKE ONE AND ONE-HALF (1 & 1/2) TABLET BY MOUTH EVERY MORNING AND TAKE TWO TABLETS BY MOUTH EVERY EVENING 04/05/2015 05/04/2015 In active amlodipine 10 mg tablet RxNorm: 652122 TAKE ONE TABLET BY MOUTH EVERY MORNING 03/10/2015 12/04/2015 In active alprazolam 0.5 mg ta blet RxNorm: 431642 TAKE ONE TABLET BY MO UTH EVERY NIGHT AT BEDTIME NEEDED FOR ANXIETY 02/23/2015 03/24/2015 Inactive (Response to an electronic controlled substance refill request - RxReferenceNumber: [id number]) alprazolam 0.5 mg ta blet RxNorm: 853037 1 Tablet(s) PO QHS as needed anxiety 02/23/2015 08/29/2015 In active (Response to an electronic controlled salas bstance refill request - RxReferenceNumber: [id number]) doxazosin 4 mg tablet RxNorm: 177945 TAKE ONE TABLET BY MOUTH TWICE A DAY 02/13/2015 01/29/2016 In active atorvastatin 20 mg t ablet RxNorm: 287563 TAKE ONE TABLET BY MO UTH EVERY DAY 01/19/2015 07/17/2015 In active atorvastatin 20 mg t ablet RxNorm: 148742 Tablet(s) TAKE ONE TA BLET BY MOUTH EVERY DAY 01/19/2015 01/18/2015 Inactive [SAVINGS FOR NON-COVERED DRUGS -- BIN:00 3585, PCN: ASPROD1, Group: XXXXX, ID# [id number], Questions: . THIS IS NOT INSURANCE.] Maxzide-25mg 37.5 mg -25 mg tablet RxNorm: 87259 1 Tablet(s) PO daily 01/10/2015 10/08/2015 Inactive [SAVINGS FOR NON-COVERED DRUGS -- BIN:00 3585, PCN: ASPROD1, Group: XXXXX, ID# [id number], Questions: . THIS IS NOT INSURANCE.] metoprolol tartrate 100 mg tablet RxNorm: 078812 TAKE ONE AND ONE-HALF (1 & 1/2) TABLET BY MOUTH EVERY MORNING AND TAKE TWO TABLETS BY MOUTH EVERY EVENING 12/05/2014 01/03/2015 In active Flexeril 10 mg tablet RxNorm: 777574 TAKE ONE TABLET BY MOUTH EVERY 8 HOURS A S NEEDED 10/31/2014 06/27/2015 Inactive alprazolam 0.5 mg ta blet RxNorm: 414210 1 Tablet(s) PO QHS TA KE ONE TABLET BY MOUTH EVERY NIGHT AT BEDTIME AND NEEDED FOR PANIC ATTACKS 10/21/2014 10/23/2014 Inactive (Appended: Controlled substance eRx refi ll - RxReferenceNumber: [id number]) alprazolam 0.5 mg ta blet RxNorm: 772797 TAKE ONE TABLET BY MO UTH EVERY NIGHT AT BEDTIME NEEDED FOR ANXIETY 10/20/2014 11/18/2014 Inactive (Response to an electronic controlled substance refill request - RxReferenceNumber: [id number]) amlodipine 10 mg tablet RxNorm: 339210 1 Tablet(s) PO QAM 09/09/2014 03/07/2015 Inactive now taking full tab [SAVINGS FOR UNINSURED PATIENTS -- BIN:[id number], PCN: ASPROD1, Group: [facility], ID# [id number], Process claim through [email or web address], for questions: . THIS IS NOT INSURANCE.] metoprolol tartrate 100 mg tablet RxNorm: 012257 TAKE ONE AND ONE-HALF (1 & 1/2) TABLET BY MOUTH EVERY MORNING AND TAKE TWO TABLETS BY MOUTH EVERY EVENING 09/03/2014 10/02/2014 In active alprazolam 0.5 mg ta blet RxNorm: 247392 TAKE ONE TABLET BY MO UTH EVERY NIGHT AT BEDTIME AND NEEDED FOR PANIC ATTACKS 08/29/2014 09/12/2014 Inactive (Response to an electronic controlled substance refill request - RxReferenceNumber: [id number]) Zithromax Z-Kush 250 mg tablet RxNorm: 608203 1 Tablet(s) PO UD 07/26/2014 07/25/2014 Inactive 2 tabs on day 1 then 1 tab daily on days 2-5 Zithromax Z-Kush 250 mg tablet RxNorm: 139651 1 Tablet(s) PO UD 07/26/2014 07/30/2014 Inactive 2 tabs on day 1 then 1 tab daily on days 2-5 alprazolam 0.5 mg ta blet RxNorm: 519640 Tablet(s) PO TAKE ONE TABLET BY MOUTH EVERY NIGHT AT BEDTIME AND NEEDED FOR PANIC ATTACKS 07/08/2014 08/30/2014 Inactive (Appended: Controlled substance eRx refill - RxReferenceNumber: [id number]) atorvastatin 20 mg t ablet RxNorm: 089106 TAKE ONE TABLET BY MO INH EVERY DAY 04/25/2014 01/18/2015 In active Carafate 1 gram tablet RxNorm: 427598 Tablet(s) PO TAKE ONE TABLET BY MOUTH FO UR TIMES A DAY 04/14/2014 10/08/2015 Inactive Fish Oil 1,000 mg ca psule RxNorm: 1 Capsule(s) PO TID 04/13/2014 10/08/2015 Inactive Flexeril 10 mg tablet RxNorm: 939919 1 Tablet(s) PO Q8 PRN 04/01/2014 04/10/2014 Inactive Carafate 1 gram tablet RxNorm: 711733 1 Tablet(s) PO QID 03/10/2014 02/15/2019 Inactive chlordiazepoxide-cli dinium 5 mg-2.5 mg capsule RxNorm: 644065 1 Capsule(s) PO TID P RN 03/10/2014 04/10/2014 Inactive doxazosin 4 mg tablet RxNorm: 268045 1 Tablet(s) PO BID 02/02/2014 02/12/2015 Inactive Kenalog 40 mg/mL sylvia pension for injection RxNorm: 7229872 Milliliter(s) Inj 02/02/2014 02/02/2014 In active atorvastatin 20 mg t ablet RxNorm: 111169 Tablet(s) PO TAKE ONE TABLET BY MOUTH EVERY DAY 01/10/2014 04/24/2014 Inactive alprazolam 0.5 mg ta blet RxNorm: 124912 Tablet(s) PO TAKE ONE TABLET BY MOUTH EVERY NIGHT AT BEDTIME AND NEEDED FOR PANIC ATTACKS 01/10/2014 07/07/2014 Inactive (Appended: Controlled substance eRx refill - RxReferenceNumber: [id number]) alprazolam 0.5 mg ta blet RxNorm: 896090 1 Tablet(s) PO QHS TA KE ONE TABLET BY MOUTH EVERY NIGHT AT BEDTIME AND NEEDED FOR PANIC ATTACKS 01/10/2014 10/20/2014 Inactive (Appended: Controlled substance eRx refi ll - RxReferenceNumber: [id number]) alprazolam 0.5 mg ta blet RxNorm: 482436 Tablet(s) PO TAKE ONE TABLET BY MOUTH EVERY NIGHT AT BEDTIME AND NEEDED FOR PANIC ATTACKS 01/10/2014 01/09/2014 Inactive (Appended: Controlled substance eRx refill - RxReferenceNumber: [id number]) Carafate 1 gram tablet RxNorm: 327947 1 Tablet(s) PO QID 12/16/2013 01/14/2014 Inactive Nexium 40 mg capsule ,delayed release RxNorm: 572895 Capsule(s) PO TAKE ON E CAPSULE BY MOUTH EVERY DAY 11/25/2013 03/12/2016 Inactive doxazosin 4 mg tablet RxNorm: 329009 1/2 Tablet(s) PO QPM 10/21/2013 01/20/2019 Inactive alprazolam 0.5 mg ta blet RxNorm: 085780 1 Tablet(s) PO as dir ected q hs and prn panic attacks 10/18/2013 01/10/2014 Inactive doxazosin 4 mg tablet RxNorm: 534620 1 q am 1/2 q pm Tablet(s) PO 09/21/2013 02/01/2014 Inactive doxazosin 4 mg tablet RxNorm: 425400 1 q am 1/2 q pm Tablet(s) PO 09/21/2013 09/20/2013 Inactive amlodipine 10 mg tablet RxNorm: 031860 1 Tablet(s) PO QAM 08/30/2013 08/24/2014 Inactive now taking full tab metoprolol tartrate 100 mg tablet RxNorm: 733297 2 Tablet(s) PO QPM 08/24/2013 10/22/2013 Inactive alprazolam 0.5 mg ta blet RxNorm: 423478 1 Tablet(s) PO as dir ected q hs and prn panic attacks 07/29/2013 10/17/2013 Inactive Benicar 20 mg tablet RxNorm: 076912 1 Tablet(s) PO daily 07/26/2013 08/09/2013 Inactive amlodipine 10 mg tablet RxNorm: 949572 1 Tablet(s) PO QAM 07/19/2013 08/29/2013 Inactive cyclobenzaprine 5 mg tablet RxNorm: 382970 1 Tablet(s) PO TID AK N one pill every 8 hours as needed for muscle spasms. 07/19/2013 03/31/2014 Inactive Kenalog 40 mg/mL Sylvia p for Injection RxNorm: 4694852 1 Milliliter(s) Inj 06/30/2013 06/30/2013 In active prednisone 10 mg tab lets in a dose pack RxNorm: 171482 1 Tablet(s) PO as doc tor directed take steroid taper as directed on box 06/30/2013 07/09/2013 Inactive disp ense one PACK meclizine 25 mg tablet RxNorm: 088806 1 Tablet(s) PO Q6 PRN 1/2 - 1 pill every 6 hours as needed for vertigo 06/30/2013 08/10/2013 Inactive metoprolol tartrate 100 mg tablet RxNorm: 335716 1.5 Tablet(s) PO BID 06/30/2013 08/23/2013 In active metoprolol tartrate 100 mg tablet RxNorm: 910262 1 Tablet(s) PO BID 06/24/2013 06/29/2013 Inactive metoprolol tartrate 100 mg tablet RxNorm: 556576 1 Tablet(s) PO daily 06/17/2013 06/23/2013 In active metoprolol tartrate 100 mg tablet RxNorm: 446488 1 Tablet(s) PO daily 06/17/2013 06/16/2013 In active Toprol XL 100 mg tab let,extended release RxNorm: 725903 Tablet(s) PO TAKE ONE AND ONE- HALF TABLET BY MOUTH EVERY MORNING AND ONE TABLET IN THE EVENING 05/05/2013 06/22/2013 In active alprazolam 0.5 mg ta blet RxNorm: 980127 1 Tablet(s) PO as dir ected q hs and prn panic attacks 04/06/2013 07/28/2013 Inactive doxazosin 4 mg tablet RxNorm: 152926 Tablet(s) PO TAKE ONE TABLET BY MOUTH EV KANE DAY 04/01/2013 09/20/2013 Inactive Toprol XL 100 mg tab let,extended release RxNorm: 042841 Tablet(s) PO TAKE ONE AND ONE- HALF TABLET BY MOUTH EVERY MORNING AND ONE TABLET IN THE EVENING 12/25/2012 05/04/2013 In active Lasix 20 mg tablet RxNorm: 617010 1 Tablet(s) PO QDAY PRN Take 1 tab daily x 3 days then as needed 12/02/2012 04/10/2014 Inactive potassium chloride E R 20 mEq tablet,extended release(part/cryst) RxNorm: 026299 1 Tablet(s) PO PRN 12/02/2012 10/04/2013 Inactive prn swelling alprazolam 0.5 mg ta blet RxNorm: 083686 1 Tablet(s) PO as dir ected q hs and prn panic attacks 12/01/2012 04/05/2013 Inactive amlodipine 10 mg tablet RxNorm: 363293 1/2 Tablet(s) PO QAM 12/01/2012 07/18/2013 Inactive fluconazole 150 mg t ablet RxNorm: 590371 1 Tablet(s) PO daily 11/16/2012 11/20/2012 Inactive fluconazole 150 mg t ablet RxNorm: 279199 1 Tablet(s) PO daily 11/16/2012 11/15/2012 Inactive Nexium 40 mg capsule ,delayed release RxNorm: 596113 1 Capsule(s) PO daily 10/23/2012 11/16/2013 In active acyclovir 400 mg tablet RxNorm: 557044 1 Tablet(s) PO TID 10/19/2012 10/28/2012 Inactive chlordiazepoxide-cli dinium 5 mg-2.5 mg capsule RxNorm: 814358 1 Capsule(s) PO TID P RN 2012 12/22/2013 Inactive Voltaren 1 % Topical Gel RxNorm: 681300 4 Gram(s) TOP QID pt is to use 2 grams to each hand and 4 grams to knees. 08/18/2012 04/10/2014 Inactive doxazosin 4 mg tablet RxNorm: 790316 1 Tablet(s) PO QAM 08/18/2012 10/16/2012 Inactive atorvastatin 20 mg t ablet RxNorm: 486018 1 Tablet(s) PO HS 08/12/2012 08/11/2012 Inactive may have #90 x3 infection atorvastatin 20 mg t ablet RxNorm: 932644 1 Tablet(s) PO HS 08/12/2012 09/05/2013 Inactive may have #90 x3 infection doxazosin 4 mg tablet RxNorm: 552725 1 Tablet(s) PO daily 08/11/2012 08/17/2012 Inactive clonidine 0.1 mg/24 hr Weekly Transderm Patch RxNorm: 431778 1 Patch TD QW 08/04/2012 08/10/2012 In active Influenza Virus Vacc ine 0.5 mL RxNorm: IM 08/04/2012 08/04/2012 Inactive cyclobenzaprine 5 mg tablet RxNorm: 383341 1 Tablet(s) PO TID [place] N one pill every 8 hours as needed for muscle spasms. 07/13/2012 11/09/2012 Inactive cyclobenzaprine 5 mg tablet RxNorm: 187522 1 Tablet(s) PO TID [place] N one pill every 8 hours as needed for muscle spasms. 07/09/2012 07/12/2012 Inactive gabapentin 100 mg ca psule RxNorm: 133939 1 Capsule(s) PO TID 07/01/2012 12/01/2012 Inactive atorvastatin 20 mg t ablet RxNorm: 262208 1/2 Tablet(s) PO daily 07/01/2012 08/11/2012 Inactive may of day supply if cheaper Toprol XL 100 mg tab let,extended release RxNorm: 004381 Tablet(s) PO BID 11/2 in am and 1 in evening 07/01/2012 06/16/2013 Inactive 1 1/2 q am 1 in [place] alprazolam 0.5 mg ta blet RxNorm: 774701 1 Tablet(s) PO as dir ected q hs and prn panic attacks 06/24/2012 11/30/2012 Inactive amlodipine 10 mg tablet RxNorm: 546605 1 Tablet(s) PO QAM 06/19/2012 11/30/2012 Inactive benazepril 20 mg tablet RxNorm: 485604 1 Tablet(s) PO daily 06/19/2012 06/13/2013 Inactive one daily at noon Toprol XL 100 mg tab let,extended release RxNorm: 352223 Tablet(s) PO BID 06/19/2012 06/30/2012 In active 1 1/2 q am 1 in [place] Toprol XL 100 mg tab let,extended release RxNorm: 022279 1 1/2 Tablet(s) PO BI D 04/27/2012 06/18/2012 In active 90 or 30 day supply, whatever ins will a llow Lotrel 10 mg-20 mg Cap RxNorm: 178202 1 Capsule(s) PO daily 04/20/2012 08/04/2012 Inactive estradiol 0.5 mg Tab RxNorm: 329156 1 Tablet(s) PO BID 04/20/2012 12/02/2012 Inactive Toprol XL 100 mg 24 hr Tab RxNorm: 210516 1 1/2 Tablet(s) PO BID 04/14/2012 04/26/2012 Inactive Toprol XL 100 mg 24 hr Tab RxNorm: 568606 Tablet(s) PO daily 03/31/2012 04/13/2012 Inactive new directions: one q am 1/2 every evepl ease put on file until she needs filled Lipitor 10 mg tablet RxNorm: 814669 1 Tablet(s) PO daily 03/31/2012 12/02/2012 Inactive march supply if cheaper Toprol XL 100 mg 24 hr Tab RxNorm: 536481 1 Tablet(s) PO daily 03/11/2012 03/30/2012 Inactive Boniva 150 mg Tab RxNorm: 808496 1 Tablet(s) PO weekly 02/19/2012 12/02/2012 Inactive Detrol LA 4 mg capsu le,extended release RxNorm: 476219 1 Capsule(s) PO daily 02/19/2012 03/12/2016 In active doxycycline hyclate 100 mg Tab RxNorm: 5944157 1 Tablet(s) PO BID 01/23/2012 02/25/2012 Inactive Rocephin 500 mg Solu tion for Injection RxNorm: 3326603 1 Milliliter(s) Inj 01/23/2012 01/23/2012 In active Kenalog 40 mg/mL Sylvia p for Injection RxNorm: 9701912 1 Milliliter(s) Inj 01/23/2012 01/23/2012 In active cyclobenzaprine 5 mg tablet RxNorm: 887694 1 Tablet(s) PO TID [place] N one pill every 8 hours as needed for muscle spasms. 12/20/2011 04/17/2012 Inactive clonidine 0.1 mg Tab RxNorm: 860237 1 Tablet(s) PO BID 12/20/2011 02/25/2012 Inactive Vitamin D3 5,000 uni t tablet RxNorm: 285967 1 Tablet(s) PO daily No Start Date Active Nexium 24HR 22.3 mg capsule,delayed release RxNorm: 762626 1 Capsule(s) PO daily as needed No Start Date Active Lotrel 10 mg-20 mg Cap RxNorm: 670991 1 Capsule(s) PO daily No Start Date 02/24/2012 Inactive benazepril 20 mg tablet RxNorm: 400924 1 Tablet(s) PO No Start Date 06/18/2012 Inactive one daily at noon Vimovo 500 mg-20 mg multiphase, immed & delay rel Tab RxNorm: 110075 1 Tablet(s) PO BID No Start Date 12/01/2012 Inactive B12 1000 mcg RxNorm: 2 IM daily No Start Date 03/12/2016 Inactive Fish Oil 1,000 mg ca psule RxNorm: 1 Capsule(s) PO BID No Start Date 04/12/2014 Inactive Benicar 40 mg tablet RxNorm: 975516 1 Tablet(s) PO daily No Start Date 10/24/2013 Inactive Carafate 1 gram tablet RxNorm: 088063 Oral No Start Date 12/15/2013 Inactive Vitamin B-12 1,000 m cg tablet RxNorm: 971891 1 Tablet(s) PO daily No Start Date 03/12/2016 Inactive amlodipine 10 mg tablet RxNorm: 239593 1 Tablet(s) PO daily No Start Date 06/18/2012 Inactive Phenergan VC-Codeine 6.25 mg-5 mg-10 mg/5 mL Syrup RxNorm: 142589 5-10 Milliliter(s) PO Q6 PRN No Start Date 04/10/2014 Inactive Celebrex 200 mg capsule RxNorm: 976229 1 Capsule(s) PO daily No Start Date 10/08/2015 Inactive Percocet 5 mg-325 mg tablet RxNorm: 8220448 1-2 Tablet(s) PO Q6 PRN No Start Date 06/16/2014 Inactive Exforge 10 mg-320 mg Tab RxNorm: 214577 1 Tablet(s) PO daily sample No Start Date 05/20/2012 Inactive Lipitor 10 mg Tab RxNorm: 551038 1 Tablet(s) PO daily No Start Date 03/30/2012 Inactive tramadol 50 mg tablet RxNorm: 561819 1-2 Tablet(s) PO Q8 as needed No Start Date 04/24/2016 Inactive Lasix 20 mg tablet RxNorm: 300438 1 Tablet(s) PO QDAY PRN Take 1 tab daily x 3 days then as needed No Start Date 12/01/2012 Inactive potassium chloride E R 20 mEq tablet,extended release(part/cryst) RxNorm: 2590377 1 Tablet(s) PO QDAY PRN No Start [place] e 12/01/2012 Inactive Toprol XL 100 mg 24 hr Tab RxNorm: 146630 1 Tablet(s) PO daily No Start Date 03/10/2012 Inactive MIDRIN 325 mg-65 mg- 100 mg Cap RxNorm: 566690 1 Capsule(s) PO PRN No Start Date 05/20/2012 Inactive Nexium 40 mg capsule ,delayed release RxNorm: 577563 1 Capsule(s) PO daily No Start Date 10/22/2012 Inactive Detrol LA 4 mg 24 hr Cap RxNorm: 100446 Oral No S tart Date 02/18/2012 Inactive Boniva 150 mg Tab RxNorm: 781762 Oral No Start Date 02/18/2012 Inactive Flexeril 10 mg tablet RxNorm: 453256 1 Tablet(s) PO Q8 PRN No Start Date 03/31/2014 Inactive clidinium bromide Oral RxNorm: Oral No Start Date 12/01/2012 Inactive Fish Oil 360 mg-1,20 0 mg capsule,delayed release RxNorm: 1 Capsule(s) PO daily No Start Date 02/15/2019 Inactive alprazolam 0.5 mg ta blet RxNorm: 140397 1 Tablet(s) PO as dir ected q hs and prn panic attacks No Start Date 06/23/2012 Inactive chlordiazepoxide Oral RxNorm: Oral No Start Date 12/01/2012 Inactive metoprolol tartrate 100 mg tablet RxNorm: 188021 Tablet(s) PO TAKE ONE AND ONE-HALF (1 & 1/2) TABLET BY MOUTH EVERY MORNING AND TAKE TWO TABLETS BY MOUTH EVERY EVENING No Start Date 08/03/2014 Inactive furosemide 20 mg tablet RxNorm: 999452 1 Tablet(s) PO daily No Start Date 01/29/2016 Inactive Calcium Oral RxNorm: Oral No Start Date 03/12 Inactive Nasonex 50 mcg/actua tion [place] RxNorm: 594515 1 [place] NASAL BID No Start Date 04/10/2014 Inactive Medication Administered Medication Codes Instruc tions Start Date Status Kenalog 40 mg/mL suspension for injection RxNorm: 9579530 Milliliter 04/24/2018 No longer Active Kenalog 40 mg/mL suspension for injection RxNorm: 5846380 Milliliter 06/23/2017 No longer Active Kenalog 40 mg/mL suspension for injection RxNorm: 1921911 2Milliliter 03/21/2017 N o longer Active Kenalog 40 mg/mL suspension for injection RxNorm: 3332450 1Milliliter 04/04/2016 N o longer Active Kenalog 40 mg/mL suspension for injection RxNorm: 5801313 Milliliter 06/12/2015 No longer Active Kenalog 40 mg/mL suspension for injection RxNorm: 0977053 Milliliter 05/15/2015 No longer Active Kenalog 40 mg/mL suspension for injection RxNorm: 7111096 Milliliter 02/02/2014 No longer Active Kenalog 40 mg/mL Susp for Injection RxNorm: 7497965 1Milliliter 06/30/2013 N o longer Active Influenza Virus Vaccine 0.5 mL RxNorm: 08/04/2012 No longer Active Rocephin 500 mg Solution for Injection RxNorm: 2263775 1Milliliter 01/23/2012 N o longer Active Kenalog 40 mg/mL Susp for Injection RxNorm: 9647486 1Milliliter 01/23/2012 N o longer Active Immunizations [...] 02/19/2012 cough 01/23/2012 cerumen 01/02/[address] gutierrez on lipitor 2 weeks ago hypertension 12/20/2011 [...] Ord2 RDW 14.8 % 06/05/2015 Comp Metabolic Vfs028 NA 138 mEq/L 06/05/2015 Comp Metabolic Uni314 K 4.3 mEq/L 06/05/2015 Comp Metabolic Zmq594 CL 100 mEq/L 06/05/2015 Comp Metabolic Jsd067 CO2 29.0 mEq/L 06/05/2015 Comp Metabolic Bub481 AN ION GAP 13 06/05/2015 Comp Metabolic Zpv187 GL UCOSE 85 mg/dL 06/05/2015 Comp Metabolic Iuw879 Cr eat 0.7 mg/dL 06/05/2015 Comp Metabolic Ost069 eG FR 94 ml/min/1.73m2 06/05 Comp Metabolic Pkt940 BUN 16 mg/dL 06/05/2015 Comp Metabolic Dye568 B/ C Ratio 24.2 Ratio 06/05/2015 Comp Metabolic Oor805 CA LCIUM 9.5 mg/dL 06/05/2015 Comp Metabolic Zsj971 AL K PHOS 69 U/L 06/05/2015 Comp Metabolic Rko881 T(SGOT) 22 U/L 06/05/2015 Comp Metabolic Nxg338 AL T(SGPT) 26 U/L 06/05/2015 Comp Metabolic Evr715 BI LI T 0.5 mg/dL 06/05/2015 Comp Metabolic Zxe176 AL BUMIN 4.2 g/dL 06/05/2015 Comp Metabolic Lsd714 TP RO 6.1 g/dL 06/05/2015 Comp Metabolic Ech046 GL OB 1.9 g/dL 06/05/2015 Comp Metabolic Idb377 A/ G Ratio 2.2 Ratio 06/05/2015 Comp Metabolic Ufe530 Os mo 276 mOsmo 06/05/2015 Tsh Ord6 hTSH II 1.99 uIU/mL 06/05/2015 Lipid Ord30 CHOL 171 mg/dL 06/05/2015 Lipid Ord30 HDL 55.0 mg/dl 06/05/2015 Lipid Ord30 TRIG 178 mg/dL 06/05/2015 Lipid Ord30 LDL 80 mg/dL 06/05/2015 Lipid Ord30 C/HDL 3.1 Ratio 06/05/2015 %Hba1C Eti223 % HbA1c 61690-0 5.7 % 06/05/2015 %Hba1C Mgp418 Gluc Ave 117 mg/dL 06/05/2015 A1C HPLC 6053370 A1C HPLC 76627-7 5.6 % 07/15/2014 GFR CALC 7314028 GFR AA >60 ML/MIN 07/15/2014 GFR CALC 3032077 GFR NON -AA >60 ML/MIN 07/15/2014 CHEM 14 8215099 AST 21 U/L 07/15/2014 CHEM 14 5597565 ALT 23 IU/L 07/15/2014 CHEM 14 6739326 BUN 14 MG/DL 07/15/2014 CHEM 14 9788299 ALBUMIN 4.2 GM/DL 07/15/2014 CHEM 14 5340083 CHLORIDE 104 MMOL/L 07/15/2014 CHEM 14 8607470 BILI TOT 0.4 MG/DL 07/15/2014 CHEM 14 5915401 ALK PHOS 88 U/L 07/15/2014 CHEM 14 2879658 SODIUM 140 MMOL/L 07/15/2014 CHEM 14 2110835 CREATINI NE 0.63 MG/DL 07/15/2014 CHEM 14 3563583 CALCIUM 9.4 MG/DL 07/15/2014 CHEM 14 3840939 POTASSIUM 4.0 MMOL/L 07/15/2014 CHEM 14 0897596 PROT TOT 6.4 GM/DL 07/15/2014 CHEM 14 5691922 GLUCOSE 90 MG/DL 07/15/2014 CHEM 14 8764907 BICARB 30 MMOL/L 07/15/2014 CHEM 14 4101903 ANION GAP 6 MEQ/L 07/15/2014 A1C HPLC 3598269 A1C HPLC 75616-9 6.0 % 04/13/2014 TSH 7049709 TSH 1.875 uIU/ML 04/12/2014 CHEM 14 8164053 AST 17 U/L 04/12/2014 CHEM 14 5651963 ALT 20 IU/L 04/12/2014 CHEM 14 6245060 BUN 14 MG/DL 04/12/2014 CHEM 14 8099327 ALBUMIN 4.2 GM/DL 04/12/2014 CHEM 14 2606900 CHLORIDE 104 MMOL/L 04/12/2014 CHEM 14 1727866 BILI TOT 0.3 MG/DL 04/12/2014 CHEM 14 0288327 ALK PHOS 80 U/L 04/12/2014 CHEM 14 5725650 SODIUM 141 MMOL/L 04/12/2014 CHEM 14 5850551 CREATINI NE 0.62 MG/DL 04/12/2014 CHEM 14 3545242 CALCIUM 9.4 MG/DL 04/12/2014 CHEM 14 5834587 POTASSIUM 3.5 MMOL/L 04/12/2014 CHEM 14 9734088 PROT TOT 6.5 GM/DL 04/12/2014 CHEM 14 4907658 GLUCOSE 89 MG/DL 04/12/2014 CHEM 14 8564341 BICARB 29 MMOL/L 04/12/2014 CHEM 14 7438605 ANION GAP 8 MEQ/L 04/12/2014 LIPID GRP HDL TE ST 59 MG/DL 04/12/2014 LIPID GRP TRIG 177 MG/DL 04/12/2014 LIPID GRP 5485940 TEST L DL 106 MG/DL 04/12/2014 LIPID GRP 7390631 CHOL 200 MG/DL 04/12/2014 LIPID GRP RCHOL/ HDL 3.39 RATIO 04/12/2014 CBC 1378300 WBC 4.6 10e9/L 04/12/2014 CBC 8246259 RBC 4.52 10e12/L 04/12/2014 CBC 5834533 HGB 13.1 g/dL 04/12/2014 CBC 7554971 HCT DET 39.2 % 04/12/2014 CBC 5540038 MCV 86.7 fL 04/12/2014 CBC 0738162 MCH 29.0 pg 04/12/2014 CBC 0913455 MCHC 33.4 g/dL 04/12/2014 CBC 0624659 PLT 233 10e9/L 04/12/2014 CBC 7123676 MPV 9.8 fL 04/12/2014 CBC 7810602 AN % 59.5 % 04/12/2014 CBC 2212346 LY % 28.6 % 04/12/2014 CBC 1766120 MON % 10.0 % 04/12/2014 CBC 9944019 EOS % 1.5 % 04/12/2014 CBC 2023630 BASO % 0.4 % 04/12/2014 CBC 4000130 RDW 13.7 % 04/12/2014 CBC 3389072 ABS AN 2.74 10e9/L 04/12/2014 CBC 1283400 ABS LYMPH 1.32 10e9/L 04/12/2014 CBC 5389449 ABS MONO 0.46 10e9/L 04/12/2014 CBC 6307732 ABS EOS 0.07 10e9/L 04/12/2014 CBC 6048203 ABS BASO 0.02 10e9/L 04/12/2014 CBC 2851273 RDW-SD 42.6 fL 04/12/2014 GFR CALC 9268971 GFR AA >60 ML/MIN 04/12/2014 GFR CALC 6818832 GFR NON -AA >60 ML/MIN 04/12/2014 LIPID GRP HDL TE ST 57 MG/DL 08/24/2013 LIPID GRP TRIG 183 MG/DL 08/24/2013 LIPID GRP TEST L DL 64 MG/DL 08/24/2013 LIPID GRP CHOL 158 MG/DL 08/24/2013 LIPID GRP RCHOL/ HDL 2.77 RATIO 08/24/2013 GFR CALC 3689128 GFR AA >60 ML/MIN 08/24/2013 GFR CALC 3490148 GFR NON -AA >60 ML/MIN 08/24/2013 CHEM 14 3269521 AST 13 U/L 08/24/2013 CHEM 14 20280507 ALT 15 IU/L 08/24/2013 CHEM 14 0892546 BUN 14 MG/DL 08/24/2013 CHEM 14 1447653 ALBUMIN 4.3 GM/DL 08/24/2013 CHEM 14 5203724 CHLORIDE 106 MMOL/L 08/24/2013 CHEM 14 0535477 BILI TOT 0.3 MG/DL 08/24/2013 CHEM 14 9449657 ALK PHOS 75 U/L 08/24/2013 CHEM 14 0167893 SODIUM 141 MMOL/L 08/24/2013 CHEM 14 8618654 CREATINI NE 0.56 MG/DL 08/24/2013 CHEM 14 2536766 CALCIUM 9.1 MG/DL 08/24/2013 CHEM 14 9020934 POTASSIUM 4.2 MMOL/L 08/24/2013 CHEM 14 3648192 PROT TOT 6.0 GM/DL 08/24/2013 CHEM 14 5323631 GLUCOSE 83 MG/DL 08/24/2013 CHEM 14 3670437 BICARB 28 MMOL/L 08/24/2013 CHEM 14 6111535 ANION GAP 7 MEQ/L 08/24/2013 CBC 8187024 WBC 4.7 10e9/L 08/24/2013 CBC 7712380 RBC 4.33 10e12/L 08/24/2013 CBC 3273996 HGB 12.5 g/dL 08/24/2013 CBC 4272750 HCT DET 38.2 % 08/24/2013 CBC 0377198 MCV 88.2 fL 08/24/2013 CBC 0846361 MCH 28.9 pg 08/24/2013 CBC 3167746 MCHC 32.7 g/dL 08/24/2013 CBC 5125405 PLT 218 10e9/L 08/24/2013 CBC 8080349 MPV 10.4 fL 08/24/2013 CBC 4220157 AN % 61.9 % 08/24/2013 CBC 8162922 LY % 24.8 % 08/24/2013 CBC 9084681 MON % 10.3 % 08/24/2013 CBC 8113033 EOS % 2.1 % 08/24/2013 CBC 8374930 BASO % 0.9 % 08/24/2013 CBC 4830899 RDW 14.6 % 08/24/2013 CBC 0868320 ABS AN 2.91 10e9/L 08/24/2013 CBC 1619565 ABS LYMPH 1.17 10e9/L 08/24/2013 CBC 5800986 ABS MONO 0.48 10e9/L 08/24/2013 CBC 2234318 ABS EOS 0.10 10e9/L 08/24/2013 CBC 0054120 ABS BASO 0.04 10e9/L 08/24/2013 CBC 1116082 RDW-SD 46.7 fL 08/24/2013 TSH 8781268 TSH 1.208 uIU/ML 08/24/2013 Review of Systems [...] Respiratory No chest tightness 09/22/2018 Neurologic headache 2 Neurologic No dizziness 09/22/2018 Neurologic No gait [...] 11/2011 Neurologic No dizziness 01/02/2012 Neurologic headache /0 11/2011 Neurologic neck pain 11/2011 Neurologic paresthesia [...] nourished 04/11/2014 None Full Exam - General 1995 Eyes conjunctiva/eyelids Overall: conjunctiva clear 04/11/2014 None Full Exam - General 1995 Eyes conjunctiva/eyelids Overall: cornea clear 04/11/2014 None [...] 02/02/2014 None Full Exam - General 1995 Eyes conjunctiva/eyelids Overall: cornea clear 02/02/2014 None Full Exam - General 1994 Eyes conjunctiva/eyelids Overall: eyelids normal 02/02/2014 None Full Exam - General 1994 Eyes pupils and irises Overall: pupils equal, round, reactive to light and accomodation 02/02/2014 None Full Exam - General 1995 [...] bilaterally 06/30/2013 None Full Exam - General 1995 Respiratory respiratory effort/rhythm Overall: no retractions 06/30/2013 [...] bilaterally 06/24/2013 None Full Exam - General 1995 Respiratory respiratory effort/rhythm Overall: no retractions 06/24/2013 [...] cerumen 04/20/2012 None Full Exam - General 1995 Ears/Nose/Throat [...] accomodation 01/02/2012 None Full Exam - General 1995 [...] Formatting Model/CDA Sections, Assigned to/Jen Cota CPT-4: 99025Gpuffxg 07/28/2018 THER/PROPH/DIAG INJ SC/IM CPT-4: 46602 04/24/2018 TRIAMCINOLONE ACET I [place] NOS CPT-4: J3301 04/24/2018 PPPS, SUBSEQ VISIT CPT- 4: G0439 02/03/2018 TRIAMCINOLONE ACET I [place] NOS CPT-4: J3301 06/23/2017 TRIAMCINOLONE ACET I [place] NOS CPT-4: J3301 03/21/2017 PPPS, SUBSEQ VISIT CPT- 4: G0439 01/22/2017 ADMIN PNEUMOCOCCAL V ACCINE SNOMED CT: [id number] CPT-4: G0009 09/16/2016 Pneumococcal Polysac charide Vaccine, 23-Valent, Ad CPT-4: 72997 09/16/2016 THER/PROPH/DIAG INJ SC/IM CPT-4: 72165 04/04/2016 TRIAMCINOLONE ACET I [place] NOS CPT-4: J3301 04/04/2016 ADMIN INFLUENZA VIRU S VAC CPT-4: G0008 07/28/2015 FLU VACC 4 XIMENA 3 YRS PLUS IM Formatting Model/CDA Sections, Assigned to/Jen Cota SNOMED CT: [id number] CPT-4: 98563Idbfqly 07/28/2015 TRIAMCINOLONE ACET I [place] NOS CPT-4: J3301 06/12/2015 TRIAMCINOLONE ACET I [place] NOS CPT-4: J3301 05/15/2015 ADMIN INFLUENZA VIRU S VAC CPT-4: G0008 07/19/2014 FLU VAC NO PRSV 4 VA L 3 YRS+ Assigned to/Jen Cota CPT-4: 05006Imgqugz 07/19/2014 TRIAMCINOLONE ACET I [place] NOS CPT-4: J3301 02/02/2014 ROUTINE VENIPUNCTURE CPT-4: 36201 08/24/2013 ADMIN INFLUENZA VIRU S VAC CPT-4: [...] CPT-4: J3301 01/23/2012 THER/PROPH/DIAG INJ SC/IM CPT-4: 96785 01/23/2012 REMOVE IMPACTED EAR WAX UNI CPT-4: 82023 01/02/2012 ROUTINE VENIPUNCTURE CPT-4: 18355 12/20/2011 Vital Signs Date Vital 02/16/2019 Blood Pressure 1: 136/82 Code: 8480-6 BMI: 34.0 Code: 61084-7 Heart Rate 1: 88 bpm Height: 5' SpO2: 94% Weight: 177 lbs 01/21/2019 Blood Pressure 1: 144/70 Code: 8480-6 BMI: 34.0 Code: 41987-8 Heart Rate 1: 68 bpm Height: 5' SpO2: 97% Temperature: 36.5 (C ) / 97.7 (F) Weight: 177 lbs 10/14/2018 Blood Pressure 1: 150/72 Code: 8480-6 Heart Rate 1: 58 bpm Height: 5' SpO2: 98% Weight: 09/22/2018 Blood Pressure 1: 140/80 Code: 8480-6 BMI: 32.7 Code: 77684-2 Heart Rate 1: 55 bpm Height: 5' SpO2: 98% Weight: 170 lbs 08/17/2018 Blood Pressure 1: 140/76 Code: 8480-6 BMI: 33.0 Code: 42044-3 Heart Rate 1: 60 bpm Height: 5' SpO2: 99% Weight: 172 lbs 06/08/2018 Blood Pressure 1: 136/80 Code: 8480-6 BMI: 33.8 Code: 87459-7 Heart Rate 1: 65 bpm Height: 5' SpO2: 98% Weight: 176 lbs 05/04/2018 Blood Pressure 1: 134/80 Code: 8480-6 BMI: 35.9 Code: 53252-4 Heart Rate 1: 72 bpm Height: 5' SpO2: 94% Weight: 187 lbs 02/04/2018 Blood Pressure 1: 144/76 Code: 8480-6 BMI: 35.0 Code: 97758-0 Heart Rate 1: 64 bpm Height: 5' SpO2: 98% Weight: 182 lbs 02/03/2018 Blood Pressure 1: 136/62 Code: 8480-6 BMI: 35.0 Code: 51034-3 Heart Rate 1: 57 bpm Height: 5' SpO2: 98% Waist Measure (cm): 94 cm Weight: 182 lbs 09/17/2017 Blood Pressure 1: 150/82 Code: 8480-6 BMI: 33.6 Code: 16449-2 Heart Rate 1: 58 bpm Height: 5' SpO2: 98% Weight: 175 lbs 06/23/2017 Blood Pressure 1: 124/66 Code: 8480-6 Heart Rate 1: 65 bpm Height: 5' SpO2: 97% Weight: 05/13/2017 Blood Pressure 1: 128/80 Code: 8480-6 BMI: 32.8 Code: 44944-2 Heart Rate 1: 76 bpm Height: 5' SpO2: 95% Weight: 171 lbs 03/21/2017 Blood Pressure 1: 152/88 Code: 8480-6 Heart Rate 1: 70 bpm Height: SpO2: 98% Weight: 03/19/2017 Blood Pressure 1: 132/64 Code: 8480-6 BMI: 33.0 Code: 57770-6 Heart Rate 1: 64 bpm Height: 5' SpO2: 96% Weight: 172 lbs 01/22/2017 Blood Pressure 1: 120/68 Code: 8480-6 BMI: 33.4 Code: 14789-5 Heart Rate 1: 68 bpm Height: 5' SpO2: 96% Weight: 174 lbs 01/14/2017 Blood Pressure 1: 138/80 Code: 8480-6 BMI: 33.4 Code: 61544-4 Heart Rate 1: 69 bpm Height: 5' SpO2: 98% Weight: 174 lbs 09/23/2016 Blood Pressure 1: 138/70 Code: 8480-6 BMI: 33.6 Code: 23409-1 Heart Rate 1: 68 bpm Height: 5' SpO2: 98% Temperature: 36.4 (C ) / 97.5 (F) Weight: 175 lbs 09/16/2016 Blood Pressure 1: 124/74 Code: 8480-6 BMI: 33.6 Code: 26885-0 Heart Rate 1: 64 bpm Height: 5' SpO2: 97% Weight: 175 lbs 06/25/2016 Weigh t: 174 lbs 06/17/2016 Blood Pressure 1: 128/80 Code: 8480-6 BMI: 34.0 Code: 09995-5 Heart Rate 1: 76 bpm Height: 5' SpO2: 95% Weight: 177 lbs 04/03/2016 Blood Pressure 1: 138/72 Code: 8480-6 BMI: 34.2 Code: 72323-4 Heart Rate 1: 63 bpm Height: 5' SpO2: 96% Weight: 178 lbs 03/13/2016 Blood Pressure 1: 128/72 Code: 8480-6 BMI: 35.3 Code: 70467-3 Heart Rate 1: 71 bpm Height: 5' SpO2: 97% Weight: 184 lbs 01/30/2016 Blood Pressure 1: 134/72 Code: 8480-6 BMI: 35.2 Code: 07912-7 Heart Rate 1: 71 bpm Height: 5' SpO2: 96% Weight: 183 lbs 12/21/2015 Blood Pressure 1: 148/90 Code: 8480-6 BMI: 34.6 Code: 11132-2 Heart Rate 1: 89 bpm Height: 5' SpO2: 96% Weight: 180 lbs 10/09/2015 Blood Pressure 1: 124/76 Code: 8480-6 BMI: 34.6 Code: 94470-0 Heart Rate 1: 88 bpm Height: 5' SpO2: 96% Weight: 180 lbs 06/12/2015 Blood Pressure 1: 148/74 Code: 8480-6 BMI: 33.4 Code: 60699-4 Heart Rate 1: 70 bpm Height: 5' SpO2: 96% Weight: 174 lbs 06/05/2015 Blood Pressure 1: 142/82 Code: 8480-6 BMI: 33.2 Code: 12837-2 Heart Rate 1: 72 bpm Height: 5' Weight: 173 lbs 05/15/2015 Blood Pressure 1: 118/80 Code: 8480-6 BMI: 33.6 Code: 04385-9 Heart Rate 1: 82 bpm Height: 5' Weight: 175 lbs 02/06/2015 Blood Pressure 1: 122/76 Code: 8480-6 BMI: 34.6 Code: 44782-9 Heart Rate 1: 58 bpm Height: 5' Weight: 180 lbs 01/10/2015 Blood Pressure 1: 158/90 Code: 8480-6 Blood Pressure 2: 152/90 Code: 8480-6 BMI: 34.6 Code: 21158-2 Heart Rate 1: 68 bpm Height: 5' Weight: 180 lbs 07/19/2014 Blood Pressure 1: 142/78 Code: 8480-6 BMI: 33.6 Code: 92816-7 Heart Rate 1: 56 bpm Height: 5' Weight: 175 lbs 06/17/2014 Blood Pressure 1: 128/86 Code: 8480-6 Heart Rate 1: 66 bpm SpO2: 98% Weight: 172 lbs 04/19/2014 Blood Pressure 1: 152/82 Code: 8480-6 BMI: 32.5 Code: 58134-8 Heart Rate 1: 60 bpm Height: 5' Weight: 169 lbs 04/11/2014 Blood Pressure 1: 120/80 Code: 8480-6 BMI: 33.4 Code: 86476-2 Heart Rate 1: 64 bpm Height: 5' Weight: 174 lbs 03/10/2014 Blood Pressure 1: 136/64 Code: 8480-6 BMI: 32.7 Code: 87533-4 Heart Rate 1: 76 bpm Height: 5' Weight: 170 lbs 02/02/2014 Blood Pressure 1: 160/76 Code: 8480-6 BMI: 32.7 Code: 05869-7 Heart Rate 1: 64 bpm Height: 5' Weight: 170 lbs 10/25/2013 Blood Pressure 1: 164/82 Code: 8480-6 BMI: 31.9 Code: 31072-6 Heart Rate 1: 60 bpm Height: 5' Weight: 166 lbs 08/24/2013 Blood Pressure 1: 138/88 Code: 8480-6 Heart Rate 1: 80 bpm Weight: 07/26/2013 Blood Pressure 1: 154/70 Code: 8480-6 Heart Rate 1: 72 bpm Weight: 162 lbs 06/30/2013 Blood Pressure 1: 182/86 Code: 8480-6 Heart Rate 1: 80 bpm Weight: 06/24/2013 Blood Pressure 1: 148/68 Code: 8480-6 BMI: 31.3 Code: 94613-3 Heart Rate 1: 72 bpm Height: 5' [...] 1: 142/88 Code: 8480-6 BMI: 30.6 Code: 70217-6 Heart Rate 1: 64 bpm Height: 5' [...] 1: 180/96 Code: 8480-6 BMI: 30.5 Code: 25260-8 Heart Rate 1: 76 bpm Height: 5' Respiratory Rate: 16 bpm Weight: 159 lbs 02/19/2012 Blood Pressure 1: 150/70 Code: 8480-6 Blood Pressure 2: 160/78 Code: 8480-6 Heart Rate 1: 76 bpm Respiratory Rate: 16 bpm Weight: 158 lbs 01/23/2012 Blood Pressure 1: 140/84 Code: 8480-6 BMI: 30.3 Code: 11301-4 Heart Rate 1: 68 bpm Height: 5' Respiratory Rate: 16 bpm SpO2: 98% Temperature: 37.0 (C ) / 98.6 (F) Weight: 158 lbs 01/02/2012 Blood Pressure 1: 142/92 Code: 8480-6 BMI: 30.7 Code: 42247-1 Heart Rate 1: 72 bpm Height: 5' Respiratory Rate: 16 bpm Weight: 160 lbs 12/20/2011 Blood Pressure 1: 170/84 Code: 8480-6 BMI: 30.0 Code: 61480-8 Heart Rate 1: 70 bpm Height: 5' [...] in readings 10/14/2018 None Pertinent Findings dileslie ziness 10/14/2018 "once in a while"- thinks [...] 06/12/2015 None rash Location-Head/Neck on the right [facility] 06/12/2015 None rash Location-Head/Neck on the right [...] see scanned document 06/30/2013 [id number]/82 hypertension Quality [facility] 06/24/2013 patient states that her T [...] Encounters Encounter Performer Loca tion Codes Date ([id number]) [id number] EST. P ATIENT, LEVEL III Diagnosis: Essential (primary) hypertension[ICD10: I10] Diagnosis: Recurrent oral aphthae[ICD10: K12.0] [facility] CPT-4: 11461 02/16/2019 ([id number] EST. P ATIENT, LEVEL III Diagnosis: Cough[ICD10: R05] Diagnosis: Acute upper respiratory infection, unspecified[ICD10: J06.9] [facility] CPT-4: 98750 01/21/2019 [id number]) [id number] EST. P ATIENT, LEVEL IV Diagnosis: Essential (primary) hypertension[ICD10: I10] Diagnosis: Mixed hyperlipidemia[ICD10: E78.2] [facility] CPT- 4: 70929 10/14/2018 ([id number]) [id number] EST. P ATIENT, LEVEL III Diagnosis: Essential (primary) hypertension[ICD10: I10] Diagnosis: Other specified cardiac arrhythmias[ICD10: I49.8] Zoya Varela MD, [facility] CPT-4: 80821 09/22/2018 ([id number]) [id number] EST. P ATIENT, LEVEL IV Diagnosis: Essential (primary) hypertension[ICD10: I10] Diagnosis: Allergic rhinitis due to pollen[ICD10: J30.1] Diagnosis: Sciatica, right side[ICD10: M54.31] Zoya Varela MD, [facility] CPT- 4: 99337 08/17/2018 ([id number]) [id number] EST. 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 P ATIENT, LEVEL III Diagnosis: Acute upper respiratory infection, unspecified[ICD10: J06.9] Kacy Varela MD, [facility] CPT-4: 54157 05/04/2018 ([id number]) 96582 EST. P ATIENT, LEVEL IV Diagnosis: Essential (primary) hypertension[ICD10: I10] Diagnosis: Type 2 diabetes mellitus without complications[ICD10: E11.9] Diagnosis: Mixed hyperlipidemia[ICD10: E78.2] Diagnosis: Localized edema[ICD10: R60.0] Zoya Varela MD, [facility] CPT-4: 99102 02/04/2018 ([id number]) 27946 EST. P ATIENT, LEVEL IV Diagnosis: Essential (primary) hypertension[ICD10: I10] Zoya Varela MD, [facility] CPT-4: 42996 09/17/2017 ([id number]) 68875 EST. P ATIENT, LEVEL III Diagnosis: Allergic contact dermatitis due to plants, except food[ICD10: L23.7] Kacy Varela MD, [facility] CPT-4: 78865 06/23/2017 ([id number]) 96214 EST. P ATIENT, LEVEL IV Diagnosis: Essential (primary) hypertension[ICD10: I10] Diagnosis: Mixed hyperlipidemia[ICD10: E78.2] Zoya Varela MD, [facility] CPT- 4: 56164 05/13/2017 ([id number]) 87391 EST. P ATIENT, LEVEL III Diagnosis: Allergic contact dermatitis due to plants, except food[ICD10: L23.7] Kacy Varela MD, [facility] CPT-4: 89575 03/21/2017 97597 EST. PATIENT, LEVEL III Diagnosis: Bitten or stung by nonvenomous insect and other nonvenomous arthropods, initial encounter[ICD10: W57.XXXA] Diagnosis: Cellulitis of left lower limb[ICD10: L03.116] Laura Varela MD, [facility] CPT-4: 80144 03/19/2017 ([id number]) 70337 EST. P ATIENT, LEVEL IV Diagnosis: Type 2 diabetes mellitus without complications[ICD10: E11.9] Diagnosis: Essential (primary) hypertension[ICD10: I10] Diagnosis: Other specified epidermal thickening[ICD10: L85.8] Zoya Varela MD, [facility] CPT-4: 11974 01/14/2017 02314 EST. PATIENT, LEVEL III Diagnosis: Glossodynia[ICD10: K14.6] Kacy Varela MD, [facility] CPT- 4: 76881 09/23/2016 ([id number]) 38124 EST. P ATIENT, LEVEL IV Diagnosis: Encounter for screening mammogram for malignant neoplasm of breast[ICD10: Z12.31] Diagnosis: Encounter for immunization[ICD10: Z23] Zoya Varela MD, [facility] CPT-4: 66980 09/16/2016 ([id number]) 67089 EST. P ATIENT, LEVEL III Diagnosis: Diseases of lips[ICD10: K13.0] Diagnosis: Allergic rhinitis due to pollen[ICD10: J30.1] Kacy Varela MD, [facility] CPT-4: 48174 06/25/2016 ([id number]) 38244 EST. P ATIENT, LEVEL III Diagnosis: Essential (primary) hypertension[ICD10: I10] Kacy Varela MD, [facility] CPT-4: 29492 06/17/2016 77036 EST. PATIENT, LEVEL IV Diagnosis: Other acute sinusitis[ICD10: J01.80] Diagnosis: Acute laryngopharyngitis[ICD10: J06.0] Diagnosis: Other allergic rhinitis[ICD10: J30.89] Laura Varela MD, [facility] CPT-4: 55647 04/03/2016 ([id number]) 86129 EST. P ATIENT, LEVEL IV Diagnosis: Essential (primary) hypertension[ICD10: I10] Diagnosis: Localized edema[ICD10: R60.0] Diagnosis: Polyneuropathy, unspecified[ICD10: G62.9] Zoya Varela MD, [facility] CPT-4: 41353 03/13/2016 ([id number]) 94682 EST. P ATIENT, LEVEL IV Diagnosis: Essential (primary) hypertension[ICD10: I10] Diagnosis: Localized edema[ICD10: R60.0] Diagnosis: Type 2 diabetes mellitus without complications[ICD10: E11.9] Zoya Varela MD, [facility] CPT-4: 74156 01/30/2016 46424 EST. PATIENT, LEVEL IV Diagnosis: Localized edema[ICD10: R60.0] Laura Varela MD, [facility] CPT-4: 37361 12/21/2015 ([id number]) 97067 EST. P ATIENT, LEVEL III Diagnosis: Essential (primary) hypertension[ICD10: I10] Diagnosis: Allergic rhinitis due to pollen[ICD10: J30.1] Diagnosis: Cervicalgia[ICD10: M54.2] Kacy Varela MD, [facility] CPT- 4: 65369 10/09/2015 16966 EST. PATIENT, LEVEL II Diagnosis: Contact dermatitis[ICD9: 692.9] Kacy Varela MD, [facility] CPT- 4: 66986 06/12/2015 ([id number]) 20933 EST. P ATIENT, LEVEL III Diagnosis: ESSENTIAL HYPERTENSION[ICD9: 401.9] Diagnosis: DIABETES TYPE II[ICD9: 250.00] Diagnosis: Anxiety[ICD9: 300.00] Kacy Varela MD, [facility] CPT-4: 29137 06/05/2015 ([id number]) 75542 EST. P ATIENT, LEVEL IV Diagnosis: Anxiety[ICD9: 300.00] Diagnosis: ALLERGIC RHINITIS[ICD9: 477.9] Diagnosis: ESOPHAGEAL REFLUX[ICD9: 530.81] Kacy Varela MD, [facility] CPT- 4: 39583 05/15/2015 ([id number]) 78613 EST. P ATIENT, LEVEL III Diagnosis: ESSENTIAL HYPERTENSION[ICD9: 401.9] Zoya Varela MD, [facility] CPT- 4: 15555 02/06/2015 ([id number]) 81958 EST. P ATIENT, LEVEL IV Diagnosis: ESSENTIAL HYPERTENSION[ICD9: 401.9] Diagnosis: EDEMA[ICD9: 782.3] Diagnosis: DIABETES TYPE II[ICD9: 250.00] Zoya Varela MD, [facility] CPT-4: 13098 01/10/2015 ([id number]) 29530 EST. P ATIENT, LEVEL IV Diagnosis: ESSENTIAL HYPERTENSION[ICD9: 401.9] Diagnosis: DIABETES TYPE II[ICD9: 250.00] Zoya Varela MD, [facility] CPT-4: 20096 07/19/2014 ([id number]) 10211 EST. P ATIENT, LEVEL III Diagnosis: Left ankle pain[ICD9: 719.47] Kacy Varela MD, [facility] CPT- 4: 51564 06/17/2014 ([id number]) 90140 EST. P ATIENT, LEVEL III Diagnosis: ESSENTIAL HYPERTENSION[ICD9: 401.9] Diagnosis: Elevated blood sugar[ICD9: 790.29] Zoya Varela MD, [facility] CPT- 4: 40435 04/19/2014 ([id number]) 10243 EST. P ATIENT, LEVEL IV Diagnosis: ESSENTIAL HYPERTENSION[SNOMED: 60224332] Diagnosis: ESOPHAGEAL REFLUX[ICD9: 530.81] Zoya Varela MD, [facility] CPT-4: 59024 04/11/2014 ([id number]) 07721 EST. P ATIENT, LEVEL IV Diagnosis: ALLERGIC RHINITIS[ICD9: 477.9] Diagnosis: Anxiety[ICD9: 300.00] Diagnosis: Dyspnea[ICD9: 786.09] Diagnosis: ESOPHAGEAL REFLUX[ICD9: 530.81] Kacy Varela MD, [facility] CPT- 4: 93655 03/10/2014 ([id number]) 86015 EST. P ATIENT, LEVEL III Diagnosis: ALLERGIC RHINITIS[ICD9: 477.9] Diagnosis: ESSENTIAL HYPERTENSION[SNOMED: 76618552] Kacy Varela MD, [facility] CPT-4: 18503 02/02/2014 ([id number]) 26658 EST. P ATIENT, LEVEL III Diagnosis: ESSENTIAL HYPERTENSION[SNOMED: 70940190] Diagnosis: Skin irritation[ICD9: 709.9] Zoya Varela MD, [facility] CPT-4: 70614 10/25/2013 ([id number]) 88419 EST. P ATIENT, LEVEL III Diagnosis: HYPERLIPIDEMIA[ICD9: 272.4] Diagnosis: ESSENTIAL HYPERTENSION[SNOMED: 56928801] Diagnosis: EDEMA[ICD9: 782.3] Diagnosis: Encounter for long-term (current) use of other medications[ICD9: V58.69] Zoya Varela MD, [facility] CPT-4: 60527 08/24/2013 ([id number]) 56579 EST. P ATIENT, LEVEL III Diagnosis: ESSENTIAL HYPERTENSION[SNOMED: 25745474] Zoya Varela MD, [facility] CPT-4: 13547 07/26/2013 ([id number]) 35202 EST. P ATIENT, LEVEL III Diagnosis: ESSENTIAL HYPERTENSION[SNOMED: 60444818] Zoya Varela MD, [facility] CPT-4: 22639 06/30/2013 ([id number]) 38646 EST. P ATIENT, LEVEL III Diagnosis: ESSENTIAL HYPERTENSION[SNOMED: 23868804] Zoya Varela MD, [facility] CPT-4: 66954 06/24/2013 ([id number]) 42603 EST. P ATIENT, LEVEL IV Diagnosis: ESSENTIAL HYPERTENSION[SNOMED: 30869413] Diagnosis: Leg pain[ICD9: 729.5] Diagnosis: Leg swelling[ICD9: 729.81] Zoya Varela MD, [facility] CPT-4: 83547 12/01/2012 ([id number]) 25816 EST. P ATIENT, LEVEL III Diagnosis: Shingles[ICD9: 053.9] Zoya Varela MD, [facility] CPT-4: 22918 10/19/2012 ([id number]) 22555 EST. P ATIENT, LEVEL IV Diagnosis: EDEMA[ICD9: 782.3] Diagnosis: ESSENTIAL HYPERTENSION[SNOMED: 07994507] Zoya Varela MD, [facility] CPT-4: 33434 10/07/2012 ([id number]) 41856 EST. P ATIENT, LEVEL IV Diagnosis: ESSENTIAL HYPERTENSION[SNOMED: 66067107] Diagnosis: EDEMA[ICD9: 782.3] Diagnosis: Irritable bowel disease[ICD9: 564.1] Zoya Varela MD, [facility] CPT-4: 10006 2012 ([id number]) 08456 EST. P ATIENT, LEVEL III Diagnosis: ESSENTIAL HYPERTENSION[SNOMED: 16434111] Zoya Varela MD, [facility] CPT-4: 00757 08/18/2012 ([id number]) 35584 EST. P ATIENT, LEVEL III Diagnosis: ESSENTIAL HYPERTENSION[SNOMED: 82575702] Zoya Varela MD, [facility] CPT-4: 90171 08/04/2012 ([id number]) 10796 EST. P ATIENT, LEVEL IV Diagnosis: ESSENTIAL HYPERTENSION[SNOMED: 48927536] Diagnosis: Lumbago[ICD9: 724.2] Diagnosis: HYPERLIPIDEMIA[ICD9: 272.4] Zoya Varela MD, [facility] CPT-4: 03650 07/01/2012 ([id number]) 28252 EST. P ATIENT, LEVEL III Diagnosis: ESSENTIAL HYPERTENSION[SNOMED: 21249371] Zoya Varela MD, C CPT-4: 94147 05/20/2012 ([id number]) 60822 EST. P ATIENT, LEVEL IV Diagnosis: ESSENTIAL HYPERTENSION[SNOMED: 05390720] Diagnosis: Hot flash, menopausal[ICD9: 627.2] Zoya Varela MD, [facility] CPT- 4: 80850 04/20/2012 32477 EST. PATIENT, LEVEL IV Diagnosis: SPASM OF MUSCLE[ICD9: 728.85] Diagnosis: Back pain[ICD9: 724.5] Diagnosis: ESSENTIAL HYPERTENSION[SNOMED: 55782972] Zoya Varela MD, [facility] CPT-4: 10233 03/10/2012 ([id number]) 11036 EST. 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 P ATIENT, LEVEL III Diagnosis: ESSENTIAL HYPERTENSION[SNOMED: 45010507] Zoya Varela MD, C CPT-4: 91788 02/19/2012 00376 EST. PATIENT, LEVEL IV Diagnosis: ESSENTIAL HYPERTENSION[SNOMED: 23330920] Diagnosis: Cough[ICD9: 786.2] Kacy Varela MD, [facility] CPT-4: 24982 01/23/2012 ([id number]) 12579 EST. P ATIENT, LEVEL IV Diagnosis: HYPERLIPIDEMIA[ICD9: 272.4] Diagnosis: ESSENTIAL HYPERTENSION[SNOMED: 73579274] Zoya Varela MD, C CPT-4: 74431 01/02/2012 OFFICE VISIT, NEW - LEVEL 4 Diagnosis: ESSENTIAL HYPERTENSION[SNOMED: 85452722] Diagnosis: HYPERLIPIDEMIA[ICD9: 272.4] Diagnosis: IMPACTED CERUMEN[ICD9: 380.4] Diagnosis: Muscle spasm[ICD9: 728.85] Diagnosis: CHRONIC TENSION HEADACHE[ICD9: 339.12] Diagnosis: Neck pain, chronic[ICD9: 723.1] Diagnosis: Change in skin mole[ICD9: 216.9] Zoya Varela MD, [facility] CPT-4: 08875 12/20/2011 Plan of Care Planned Activity Notes [...] sores. 02/16/2019 Appointment: Zoya Varela WPtel: [phone] [facility] [place] (15 min) Moderate 02/16/2019 Patient Education: [...] plan. 01/21/2019 Appointment: Kacy Moses WPtel: [phone] [phone] [place] (15 min) Moderate 01/21/2019 Patient Education: Patient Medication Summary Completed 01/21/2019 Appointment: Zoya Varela WPtel: [phone] [facility] [place] (15 min) Moderate 12/15/2018 Visit Plan: [...] medications. 10/14/2018 Appointment: Zoya Varela WPtel: [phone] [facility] [place] (15 min) Moderate 10/14/2018 Patient Education: [...] metoprolol, will have pt go see her data consultant as we may need to consider stopping the beta ori completely versus potential need for pacemaker. 09/22/2018 Appointment: [phone] (15 min) Moderate 09/22/2018 Patient Education: Patient Medication Summary Completed 09/22/2018 Appointment: Zoya Varela [facility]Ptel: [phone] (15 min) Moderate 09/09/2018 Visit Plan: Hypertension [...] she can be seen by Oncology in [place]. 06/08/2018 Appointment: Zoya Varela [facility]Ptel: [phone] (15 min) Moderate 06/08/2018 Patient Education: Patient Medication Summary Completed 06/08/2018 Visit Plan: URI - Pt advised to inc rease fluids, vitamin C. Discussed natural and expected course of this diagnosis and need to alert me if symptoms do not follow expected course, or if any worse. RX sent to patient's pharmacy. 05/04/2018 Appointment: [phone] (30 min) Complex 05/04/2018 Patient Education: Patient [...] lower extremities. 02/04/2018 Appointment: Zoya Varela WPtel: [phone] [place] (15 min) Moderate 02/04/2018 Patient Education: [...] Summary Completed 02/03/2018 Appointment: Laura Velasco WPtel: [facility]2 [facility] [place] [address] - Annual Wellness Visit 01/28/2018 Appointment: Zoya Varela WPtel: [facility]5 [facility]66[facility] (15 min) Moderate 01/15/2018 Visit Plan: Hypertension [...] Dr. Madison. 09/17/2017 Appointment: Zoya Varela WPtel: [facility]8 [facility] (15 min) Moderate 09/17/2017 Patient Education: Patient Medication Summary Completed 09/17/2017 Patient Education: Obesity Completed 09/17/2017 Patient Education: Hypertension Completed 09/17/2017 Care Plan: SCREENINGMAMMOGRAPHYDIGITAL LOINC : 52576-0 Pending 09/17/2017 Visit Plan: Poison Sarah -kenalog inj ection today in the office-start prednisone tomorrow pt is to use topical treatments as directed. Pt is cleanse clothing in hot water with soap, and call if symptoms do not improve or if they worsen. 06/23/2017 Appointment: Kacy Moses WPtel: [address] [place] [address] (15 min) Moderate 06/23/2017 Patient Education: Patient [...] to medications. 05/13/2017 Appointment: Zoya Varela WPtel: [address] [place] [address] (15 min) Moderate 05/13/2017 Patient Education: Patient [...] they worsen. 03/21/2017 Appointment: Kacy Moses WPtel: [address] [place], [place] [phone] (15 min) Moderate 03/21/2017 Patient Education: Patient [...] in pain. 03/19/2017 Appointment: Laura Velasco WPtel: [facility]5 [facility] (15 min) Moderate 03/19/2017 Patient Education: Patient [...] in hearing. 01/22/2017 Appointment: Laura Velasco WPtel: [facility]5 [facility] [facility] - Annual Wellness Visit 01/22/2017 Appointment: Nurse [...] at home. 01/14/2017 Appointment: Zoya Varela WPtel: [facility]5 [facility] (15 min) Moderate 01/14/2017 Patient Education: Patient [...] plan. 09/23/2016 Appointment: Kacy Moses WPtel: [phone] [facility] (15 min) Moderate 09/23/2016 Patient Education: Patient [...] to medications. 09/16/2016 Appointment: Zoya Varela WPtel: [facility]7 [facility] (15 min) Moderate 09/16/2016 Patient Education: Patient Medication Summary Completed 09/16/2016 Patient Education: Obesity Completed 09/16/2016 Care Plan: SCREENINGMAMMOGRAPHYDIGITAL LOINC : 12392-9 Pending 09/16/2016 Visit Plan: Cracked/painful lips-ba cterial [...] worse. 06/25/2016 Appointment: Kacy Moses WPtel: [phone] [phone] (15 min) Moderate 06/25/2016 Patient Education: Patient [...] spray. 04/03/2016 Appointment: [facility]Ptel[phone] (30 min) Complex 04/03/2016 Patient Education: Patient [...] Completed 03/13/2016 Appointment: Zoya Varela WPtel: [phone] [place] (15 min) Moderate 02/28/2016 Appointment: Zoya Varela WPtel: [phone] [place] (15 min) Moderate 02/01/2016 Visit Plan: Hypertension [...] for treatment. 01/30/2016 Appointment: Zoya Varela WPtel: [facility] (15 min) Moderate 01/30/2016 Patient Education: Patient [...] at home. 02/06/2015 Appointment: Zoya Varela WPtel: [phone] [facility] Follow up 02/06/2015 Patient Education: Patient Medication [...] peripheral edema. 01/10/2015 Appointment: Zoya Varela WPtel: [phone] [facility] [facility] 01/10/2015 Patient Education: Patient Medication Summary Completed [...] controlled. 07/19/2014 Appointment: Zoya Varela WPtel: [phone] Follow up 07/19/2014 Patient Education: Patient Medication Summary Completed 07/19/2014 Patient Education: Hypertension Completed 07/19/2014 Care Plan: SCREENINGMAMMOGRAPHYDIGITAL LOINC : 64707-9 Ordered 07/19/2014 Visit Plan: Left ankle pain-sprain- [...] at home. 04/19/2014 Appointment: [facility]Ptel[phone] Diabetic education 04/19/2014 Patient Education: Patient [...] to medications. 04/11/2014 Appointment: Zoya Varela WPtel: [facility] Follow up 04/11/2014 Patient Education: Patient Medication [...] spray in the nasal steroid allergy spray. Rrrbmkh-nxmfhbsskswx-avaqmjs xanax at bedtime Esophageal Reflux - the patient has been counseled against excessive intake of caffiene, spicy foods, peppermint, and cinnamon - all of which can exacerbate esophageal reflux. The patient is to take medications as prescribed and call the office if the symptoms are not improving. 03/10/2014 Appointment: Zoya Varela WPtel: [facility] Other 03/10/2014 Patient Education: Patient Medication Summary [...] spray. 02/02/2014 Appointment: [facility] Moses [facility]Ptel[phone] [facility] Other 02/02/2014 Patient Education: Patient Medication Summary [...] site. 10/25/2013 Appointment: Zoya Varela WPtel: [phone] Follow up 10/25/2013 Patient Education: Patient Medication [...] TOPROL 2 PILLS AT BEDTIME 08/24/2013 Appointment: NicholeZoya WPtel: [phone] [facility] Follow up 08/24/2013 Patient Education: Patient Medication [...] concerns. 07/26/2013 Appointment: Zoya Varela WPtel: [phone] Follow up 07/26/2013 Patient Education: Patient Medication [...] NOT IMPROVE. 06/30/2013 Appointment: Zoya Varela WPtel: [facility]5 [facility] Other 06/30/2013 Patient Education: Patient Medication Summary [...] acute concerns. 06/24/2013 Appointment: Kacy Moses WPtel: [facility]5 [phone] Follow up 06/24/2013 Patient Education: Patient Medication Summary Completed 06/24/2013 Patient Education: Hypertension Completed 06/24/2013 Appointment: Zoya Varela WPtel: [address] [place], [place] [id number] Other 03/23/2013 Visit Plan: Hypotension - pt is on chronic antihypertensive medication - the medication has been adjusted down to attempt to alleviate the low blood pressures. Leg pain - Leg swelling - pt to have ultrasound on her right lower leg due to post-operative swelling and pain. 12/01/2012 Appointment: Zoya Varela WPtel: [address] [place], [place] [id number] [place] Follow up 12/01/2012 Patient Education: Patient Medication Summary Completed 12/01/2012 Patient Education: Hypertension Completed 12/01/2012 Appointment: Zoya Varela WPtel: [address] [place], [place] [phone] [place] Follow up 10/20/2012 Visit Plan: Shingles [...] considered contagious. 10/19/2012 Appointment: Zoya Varela WPtel: [address] [place], [place] [address] Other 10/19/2012 Patient Education: Patient Medication Summary [...] peripheral edema. 10/07/2012 Appointment: Kacy Moses WPtel: [address] [place], [place] [phone] [place] Other 10/07/2012 Patient Education: Hypertension Completed [...] peripheral edema. 2012 Appointment: Zoya Varela WPtel: [address] [place] [address] Other 2012 Patient Education: Patient Medication Summary [...] THE EVENING. 08/18/2012 Appointment: Zoya Varela WPtel: [phone] Follow up 08/18/2012 Patient Education: Patient Medication [...] knees. 08/04/2012 Appointment: Zoya Varela WPtel: [phone] [place] Follow up 08/04/2012 Patient Education: Patient [...] daily. 07/01/2012 Appointment: Zoya Varela WPtel: [phone] [facility] Other 07/01/2012 Patient Education: Patient Medication Summary [...] two weeks 05/20/2012 Appointment: Zoya Varela WPtel: [facility]5 [facility] Follow up 05/20/2012 Patient Education: Patient Medication Summary Completed 05/20/2012 Patient Education: High Blood Pressure: Essential Hypertension Completed 05/20/2012 Appointment: Zoya Varela WPtel: [facility] Other 05/11/2012 Visit Plan: Hypertension - uncontro [...] bid dosing. 04/20/2012 Appointment: Zoya Varela WPtel: [phone] [facility] Follow up 04/20/2012 Patient Education: Patient Medication [...] few weeks. 03/10/2012 Appointment: Zoya Varela WPtel: [phone] [facility] Other 03/10/2012 Patient Education: Patient Medication Summary [...] with codeine. 02/25/2012 Appointment: Zoya Varela WPtel: [phone] [facility] Other 02/25/2012 Patient Education: Patient Medication Summary [...] office. 02/19/2012 Appointment: Zoya Varela WPtel: [phone] Other 02/19/2012 Patient Education: Patient Medication [...] office 01/23/2012 Appointment: Kacy Moses WPtel: [phone] [phone] Other 01/23/2012 Patient Education: Patient Medication [...] TWICE DAILY. 01/02/2012 Appointment: Zoya Varela WPtel: [address] [place] [address] Other 01/02/2012 Patient Education: Patient Medication Summary [...] 2 wks. 12/20/2011 Appointment: Zoya Varela WPtel: [address] [place] [address] [place] Patient 12/20/2011 Patient Education: Patient Medication Summary Completed 12/20/2011 Patient Education: High Blood Pressure: Essential Hypertension Completed 12/20/2011 Instructions Comment decrease the metopro lol to one pill [...] metoprolol, will have pt go see her data consultant as we may need to consider stopping the beta ori completely versus potential need for pacemaker. use the voltaren gel on your right [...] to reduce peripheral edema. . Hypertension - unc ontrolled - the [...] DOXAZOSIN IN THE EVENING. . Hypertension - unc ontrolled - the [...] further attempt to reduce peripheral edema. . Low back pain- the patient was [...] blood pressure readings in a few weeks. THE PATIENT IS TO CH JUSTINE HER [...] 2 PILLS AT BEDTIME . Hypertension - wel l controlled - [...] do not improve or if they worsen. INCREASE YOUR METOPR OLOL TARTATE 100MG TO [...] heart rate readings in two weeks . Hypertension - unc ontrolled - the [...] DIZZINESS. CALL IF DIZZINESS DOES NOT IMPROVE. . Left ankle pain-sp rain-recommend rest ice and anti inflammatories as directed-also plan for xray left ankle . Hypertension - un controlled - the [...] of the lotrell stay off of the brenonn and stay off of the clonidine Allergies [...] without incident and had improvement in hearing. no change in your me dications at [...] - can use PRN for cold sores. zyrtec daily coricidin hpb . URI - [...] - continue with treatments per Dr. Madison. PT TO CUT AMLODIPINE TO 1/2 OF A PILL DAILY IN THE MORNING. PT TO TAKE BENZAPRIL AT BEDTIME.. Hypotension - pt is on chronic antihypertensive medication - the medication has been adjusted down to attempt to alleviate the low blood pressures. Leg pain - Leg swelling - pt to have ultrasound on her right lower leg due to post-operative swelling and pain. We will get a chest xray at the hospital today. I will call you with the results. Symbicort 2 puffs twice daily. Call if you are short of breath or other concerns. I sent a prescription for an antibiotic, doxycycline, to [facility]. It is twice daily. Take it until [...] situational exposure. No change in current medications. BENICAR 20MG DAILY SAMPLES GIVEN. Hypertension - [...] she can be seen by Oncology in [place]. . Hypertension - wel l controlled - [...] to call if symptoms are not improving. compression socks - look at [facility] - [...] - recommended compression socks to lower extremities. . Hypertension - unc ontrolled - the [...] able to remove in 2 wks. . Hypertension - wel l controlled - [...] assure normal liver response to medications. . Elevated blood sug ars-diabetes and diet [...] for treatment. . If the clonidine p atch has the blood pressures at or below [...] readings are starting to become less controlled. PATIENT IS TO CHECK BLOOD PRESSURE AND [...] nasal steroid allergy spray. . Hypertension - unc ontrolled - the [...] assure normal liver response to medications. . Tick - tick with h ead removed - will start abx - The patient was instructed in appropriate wound care. The patient was instructed to use the antibiotic ointment as per RX. The patient is to call for any change in symptoms, increase in size of the lesion, increase in pain. take the carafate as a liquid - [...] to assure normal liver response to medications. RESTART XANAX 1/2 TA B AT BEDTIME [...] spray in the nasal steroid allergy spray. Xefexqk-[id number]-dwfzvdx xanax at bedtime Esophageal Reflux - the [...]
--- OUTSIDE RECORDS SUMMARY | 2020-05-26 02:45 | XMS REPORT | CCD ---
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 Name Role Phone PP Unavailable CCM Unavailable Summary Purpose Interface Exchange Insurance Providers Payer name Policy type / Coverage type Covered alliance party ID Effective Begin Date Effective End Date WPS Medicare Part B Medicare Part B [id number] Unknown [id number] INSURANCE Proxama Medicare Part B [id number] Unknown Family history Mother Diagnosis Age At Onset Liver Failure Unknown Diabetes mellitus Type 2 Unknown Hyperlipidemia Unknown Hypertension Unknown Cancer Unknown Arthritis Unknown Father Diagnosis Age At Onset Liver Failure Unknown Cancer Unknown Social History Social History Element Codes Description Effective Dates Marital status Unknown M arried 12/12/2011 Number of children Unknown 3 12/12/[address]: 5512383 Former smoker quit in 199212/12/2011 Allergies, Adverse [...] tab lets in a dose pack RxNorm: 335755 1 Tablet(s) PO UD 04/12/2019 04/17/2019 Ac tive 6-5-4-3-2-1 amlodipine 5 mg tablet RxNorm: 752970 TAKE ONE TABLET BY MOUTH DAILY 03/26/2019 12/20/2019 Ac tive atorvastatin 20 mg t ablet RxNorm: 922978 TAKE ONE TABLET BY MO [facility] DAILY 03/26/2019 09/21/2019 Ac tive metoprolol tartrate 100 mg tablet RxNorm: 117805 1.5 Tablet(s) BID 02/16/2019 04/10/2020 Active doxazosin 4 mg tablet RxNorm: 558851 1 Tablet(s) UD 1.5 tab in AM and 1 tab a t hs 02/16/2019 09/13/2019 Ac tive acyclovir 800 mg tablet RxNorm: 081201 1 Tablet(s) PO TID take for cold sore ou tbreaks 02/16/2019 04/26/2019 Active Xanax 0.25 mg tablet RxNorm: 748385 1/2-1 Tablet(s) PO QDAY PRN 02/03/2019 05/03/2019 Active cyclobenzaprine 10 m g tablet RxNorm: 385097 TAKE ONE TABLET BY [facility] EVERY 8 HOURS NEEDED 01/27/2019 03/07/2019 Inactive doxazosin 4 mg tablet RxNorm: 226204 Tablet(s) TAKE ONE TABLET BY MOUTH TWO T IMES A DAY 01/21/2019 02/15/2019 Inactive doxazosin 4 mg tablet RxNorm: 146165 Tablet(s) TAKE ONE AND ONE-HALF (1 & 1/2 ) TABLET BY MOUTH BY MOUTH TWO TIMES A DAY 11/12/2018 01/20/2019 Inactive cyclobenzaprine 10 m g tablet RxNorm: 862430 TAKE ONE TABLET BY [facility] EVERY 8 HOURS NEEDED 11/12/2018 12/01/2018 Inactive tramadol 50 mg tablet RxNorm: 701912 1-2 Tablet(s) PO Q8 as needed 10/02/2018 11/30/2018 In active metoprolol tartrate 100 mg tablet RxNorm: 932130 1 Tablet(s) BID 09/22/2018 02/15/2019 Inactive metoprolol tartrate 100 mg tablet RxNorm: 875978 TAKE ONE AND ONE-HALF (1 1/2) TABLETS BY MOUTH EVERY MORNING AND TAKE TWO TABLETS BY MOUTH EVERY EVENING 09/21/2018 09/21/2018 In active Xanax 0.25 mg tablet RxNorm: 367688 1/2-1 Tablet(s) PO QDAY PRN 08/19/2018 11/15/2018 Inactive cyclobenzaprine 10 m g tablet RxNorm: 154224 TAKE ONE TABLET BY [facility] EVERY 8 HOURS NEEDED 07/01/2018 08/09/2018 Inactive atorvastatin 20 mg t ablet RxNorm: 899987 TAKE ONE TABLET BY MO [facility] DAILY 06/29/2018 12/25/2018 In active atorvastatin 20 mg t ablet RxNorm: 162478 TAKE ONE TABLET BY MO [facility] DAILY 06/29/2018 06/28/2018 In active pilocarpine 5 mg tablet RxNorm: 0498437 1 Tablet(s) PO BID 06/09/2018 06/08/2018 Inactive pilocarpine 5 mg tablet RxNorm: 0160232 1 Tablet(s) PO BID for dry mouth 06/09/2018 09/21/2018 In active Evoxac 30 mg capsule RxNorm: 934663 1 Capsule(s) PO BID as needed dry mouth 06/08/2018 06/08/2018 In active may substitute generic cyclobenzaprine 10 m g tablet RxNorm: 160271 TAKE ONE TABLET BY MO [facility] EVERY 8 HOURS NEEDED 05/14/2018 06/30/2018 Inactive amoxicillin 500 mg c apsule RxNorm: 014380 1 Capsule(s) PO BID 05/04/2018 05/13/2018 Inactive amoxicillin 500 mg c apsule RxNorm: 632670 1 Capsule(s) PO BID 05/04/2018 05/03/2018 Inactive tramadol 50 mg tablet RxNorm: 293460 1-2 Tablet(s) PO Q8 as needed 04/24/2018 06/21/2018 In active Kenalog 40 mg/mL sylvia pension for injection RxNorm: 8093397 Milliliter(s) Inj 04/24/2018 04/24/2018 In active amlodipine 5 mg tablet RxNorm: 468157 Tablet(s) TAKE ONE TABLET BY MOUTH DAILY 04/02/2018 03/25/2019 In active Xanax 0.25 mg tablet RxNorm: 664356 1/2-1 Tablet(s) PO QDAY PRN 04/02/2018 10/13/2018 Inactive metoprolol tartrate 100 mg tablet RxNorm: 414306 TAKE ONE AND ONE-HALF (1 1/2) TABLETS BY MOUTH EVERY MORNING AND TAKE TWO TABLETS BY MOUTH EVERY EVENING 02/25/2018 09/20/2018 In active Keflex 500 mg capsule RxNorm: 999880 1 Capsule(s) PO TID 02/06/2018 02/15/2018 Inactive Keflex 500 mg capsule RxNorm: 907117 1 Capsule(s) PO TID 02/06/2018 02/05/2018 Inactive Zithromax Z-Kush 250 mg tablet RxNorm: 112763 1 Tablet(s) PO UD 02/02/2018 02/06/2018 Inactive 2 tabs on day 1 then 1 tab daily on days 2-5 doxazosin 4 mg tablet RxNorm: 413800 TAKE ONE AND ONE-HALF (1 & 1/2) TABLET B Y MOUTH BY MOUTH TWO TIMES A DAY 01/16/2018 11/11/2018 Inactive atorvastatin 20 mg t ablet RxNorm: 284353 TAKE ONE TABLET BY [facility] DAILY 12/31/2017 06/28/2018 In active furosemide 20 mg tablet RxNorm: 551615 TAKE ONE TABLET BY MOUTH DAILY NEEDED FOR EDEMA 12/26/2017 06/23/2018 Inactive potassium chloride E R 10 mEq tablet,extended release RxNorm: 411051 TAKE ONE TABLET BY MOUTH NEEDED WITH LASIX 12/26/2017 06/23/2018 Inactive Xanax 0.25 mg tablet RxNorm: 059776 1/2-1 Tablet(s) PO QDAY PRN 11/27/2017 08/18/2018 Inactive cyclobenzaprine 10 m g tablet RxNorm: 842178 TAKE ONE TABLET BY MO [facility] EVERY 8 HOURS NEEDED 11/21/2017 02/08/2018 Inactive tramadol 50 mg tablet RxNorm: 560483 1-2 Tablet(s) PO Q8 as needed 10/28/2017 01/23/2018 In active metoprolol tartrate 100 mg tablet RxNorm: 442626 TAKE ONE AND ONE-HALF (1 1/2) TABLETS BY MOUTH EVERY MORNING AND TAKE TWO TABLETS BY MOUTH EVERY EVENING 10/28/2017 02/24/2018 In active cyclobenzaprine 10 m g tablet RxNorm: 797546 TAKE ONE TABLET BY MO [facility] EVERY 8 HOURS NEEDED 08/27/2017 10/25/2017 Inactive Xanax 0.25 mg tablet RxNorm: 878391 1/2-1 Tablet(s) PO QDAY PRN 08/04/2017 04/01/2018 Inactive cyclobenzaprine 10 m g tablet RxNorm: 742100 TAKE ONE TABLET BY MO [facility] EVERY 8 HOURS NEEDED 07/28/2017 08/16/2017 Inactive metoprolol tartrate 100 mg tablet RxNorm: 166307 TAKE ONE AND ONE-HALF (1 & 1/2) TABLET BY MOUTH EVERY MORNING AND TAKE TWO TABLETS BY MOUTH EVERY EVENING 07/28/2017 10/25/2017 In active cyclobenzaprine 10 m g tablet RxNorm: 191325 TAKE ONE TABLET BY MO [facility] EVERY 8 HOURS NEEDED 06/30/2017 07/19/2017 Inactive prednisone 10 mg tab lets in a dose pack RxNorm: 004983 1 Tablet(s) PO UD 06/23/2017 06/28/2017 In active 6-5-4-3-2-1 mupirocin 2 % topica l ointment RxNorm: 563365 1 Application TOP BID 06/23/2017 07/02/2017 Inactive Kenalog 40 mg/mL sylvia pension for injection RxNorm: 3412849 Milliliter(s) Inj 06/23/2017 06/23/2017 In active cyclobenzaprine 10 m g tablet RxNorm: 225423 TAKE ONE TABLET BY MO [facility] EVERY 8 HOURS NEEDED 06/09/2017 06/28/2017 Inactive meclizine 25 mg tablet RxNorm: 251213 1 Tablet(s) PO Q6 PRN as needed 1/2 - 1 pill every 6 hours as needed for vertigo 06/03/2017 07/14/2017 Inactive atorvastatin 20 mg t ablet RxNorm: 525897 TAKE ONE TABLET BY MO [facility] DAILY 05/30/2017 11/25/2017 In active amlodipine 5 mg tablet RxNorm: 431390 TAKE ONE TABLET BY MOUTH DAILY 05/15/2017 04/01/2018 In active cyclobenzaprine 10 m g tablet RxNorm: 299482 TAKE ONE TABLET BY MO [facility] EVERY 8 HOURS NEEDED 05/07/2017 05/26/2017 Inactive tramadol 50 mg tablet RxNorm: 436035 1-2 Tablet(s) PO Q8 as needed 04/07/2017 07/04/2017 In active cyclobenzaprine 10 m g tablet RxNorm: 698902 TAKE ONE TABLET BY MO U[facility] EVERY 8 HOURS NEEDED 04/07/2017 04/26/2017 Inactive Xanax 0.25 mg tablet RxNorm: 589046 1/2-1 Tablet(s) PO QDAY PRN 04/04/2017 06/02/2017 Inactive metoprolol tartrate 100 mg tablet RxNorm: 167480 TAKE ONE AND ONE-HALF (1 & 1/2) TABLET BY MOUTH EVERY MORNING AND TAKE TWO TABLETS BY MOUTH EVERY EVENING 03/28/2017 07/25/2017 In active prednisone 10 mg tab lets in a dose pack RxNorm: 520728 1 Tablet(s) PO UD 03/21/2017 03/26/2017 In active 6-5-4-3-2-1 Kenalog 40 mg/mL sylvia pension for injection RxNorm: 2809011 2 Milliliter(s) Inj 03/21/2017 03/21/2017 In active doxycycline hyclate 100 mg capsule RxNorm: 1622025 1 Capsule(s) PO BID 03/19/2017 03/28/2017 In active cyclobenzaprine 10 m g tablet RxNorm: 007563 TAKE ONE TABLET BY [facility] EVERY 8 HOURS NEEDED 02/25/2017 03/16/2017 Inactive triamcinolone aceton pineda 0.1 % topical ointment RxNorm: 7910509 1 Application TOP TI D 02/21/2017 02/20/2017 Inactive triamcinolone aceton pineda 0.1 % topical ointment RxNorm: 4298098 1 Application TOP TI D 02/21/2017 03/02/2017 Inactive doxazosin 4 mg tablet RxNorm: 685796 TAKE ONE AND ONE-HALF (1 & 1/2) TABLET B Y MOUTH BY MOUTH TWO TIMES A DAY 02/14/2017 01/09/2018 Inactive cyclobenzaprine 10 m g tablet RxNorm: 014056 TAKE ONE TABLET BY MO [facility] EVERY 8 HOURS NEEDED 01/27/2017 02/15/2017 Inactive ammonium lactate 12 % topical cream RxNorm: 611719 1 Application TOP BID 01/14/2017 02/12/2017 In active dispense one bottle of the cream potassium chloride E R 10 mEq tablet,extended release RxNorm: 812382 1 Tablet(s) PO PRN as needed with lasix 11/13/2016 12/25/2017 Inactive prn swelling furosemide 20 mg tablet RxNorm: 416050 1 Tablet(s) PO daily as needed edema 11/13/2016 01/11/2017 In active metoprolol tartrate 100 mg tablet RxNorm: 106873 TAKE ONE AND ONE-HALF (1 & 1/2) TABLET BY MOUTH EVERY MORNING AND TAKE TWO TABLETS BY MOUTH EVERY EVENING 11/01/2016 03/27/2017 In active atorvastatin 20 mg t ablet RxNorm: 633829 TAKE ONE TABLET BY MO [facility] DAILY 10/31/2016 04/28/2017 In active cyclobenzaprine 10 m g tablet RxNorm: 248395 TAKE ONE TABLET BY MO [facility] EVERY 8 HOURS NEEDED 10/25/2016 12/03/2016 Inactive Lyrica 25 mg capsule RxNorm: 580307 1 Tablet(s) PO BID 09/23/2016 01/13/2017 Inactive Lyrica 50 mg capsule RxNorm: 764818 1 Capsule(s) PO BID 09/16/2016 01/13/2017 Inactive amlodipine 5 mg tablet RxNorm: 901942 Tablet(s) TAKE ONE TABLET BY MOUTH DAILY 08/28/2016 05/14/2017 In active cyclobenzaprine 10 m g tablet RxNorm: 592330 TAKE ONE TABLET BY MO [facility] EVERY 8 HOURS NEEDED 08/05/2016 09/13/2016 Inactive Xanax 0.25 mg tablet RxNorm: 872145 1/2-1 Tablet(s) PO QDAY PRN 07/16/2016 04/03/2017 Inactive amlodipine 5 mg tablet RxNorm: 695207 TAKE ONE TABLET BY MOUTH DAILY 06/28/2016 08/26/2016 In active metoprolol tartrate 100 mg tablet RxNorm: 786842 Tablet(s) TAKE ONE AN D ONE-HALF (1 & 1/2) TABLET BY MOUTH EVERY MORNING AND TAKE TWO TABLETS BY MOUTH EVERY EVENING 05/02/2016 05/02/2016 Inactive metoprolol tartrate 100 mg tablet RxNorm: 038148 Tablet(s) PO TAKE ONE AND ONE-HALF (1 & 1/2) TABLET BY MOUTH EVERY MORNING AND TAKE TWO TABLETS BY MOUTH EVERY EVENING 05/02/2016 05/01/2016 Inactive metoprolol tartrate 100 mg tablet RxNorm: 685971 Tablet(s) PO TAKE ONE AND ONE-HALF (1 & 1/2) TABLET BY MOUTH EVERY MORNING AND TAKE TWO TABLETS BY MOUTH EVERY EVENING 05/02/2016 10/28/2016 Inactive atorvastatin 20 mg t ablet RxNorm: 066280 TAKE ONE TABLET BY MO [facility] DAILY 04/25/2016 10/21/2016 In active tramadol 50 mg tablet RxNorm: 036804 1-2 Tablet(s) PO Q8 as needed 04/25/2016 10/27/2017 In active cyclobenzaprine 10 m g tablet RxNorm: 855784 Tablet(s) PO TAKE ONE TABLET BY MOUTH EVERY 8 HOURS NEEDED 04/18/2016 06/16/2016 Inactive Kenalog 40 mg/mL sylvia pension for injection RxNorm: 4858756 1 Milliliter(s) Inj 04/04/2016 04/04/2016 In active Phenergan with Codei ne Syrup RxNorm: PO 04/03/2016 02/15/2019 Inactive Zithromax Z-Kush 250 mg tablet RxNorm: 972541 1 Tablet(s) PO UD 04/03/2016 04/07/2016 Inactive 2 tabs on day 1 then 1 tab daily on days 2-5 amlodipine 5 mg tablet RxNorm: 684710 TAKE ONE TABLET BY MOUTH DAILY 03/27/2016 06/24/2016 In active Flexeril 10 mg tablet RxNorm: 660706 TAKE ONE TABLET BY MOUTH EVERY 8 HOURS A S NEEDED 03/14/2016 04/02/2016 Inactive Vitamin B-12 ER 2,00 0 mcg tablet,extended release RxNorm: 464698 1 Tablet(s) PO daily 03/13/2016 No Stop Date Active Vitamin B-12 ER 2,00 0 mcg tablet,extended release RxNorm: 262874 1 Tablet(s) PO daily 03/13/2016 No Stop Date Active gabapentin 100 mg ca psule RxNorm: 788405 1 Capsule(s) PO BID 03/13/2016 09/15/2016 Inactive Flexeril 10 mg tablet RxNorm: 460346 Tablet(s) TAKE ONE TABLET BY MOUTH EVERY 8 HOURS NEEDED 02/08/2016 02/27/2016 Inactive Xanax 0.25 mg tablet RxNorm: 463558 1/2-1 Tablet(s) PO QDAY PRN 02/08/2016 07/15/2016 Inactive amlodipine 5 mg tablet RxNorm: 561265 1 Tablet(s) PO daily 02/06/2016 03/26/2016 Inactive furosemide 20 mg tablet RxNorm: 215410 1 Tablet(s) PO daily 01/30/2016 06/16/2016 Inactive amlodipine 10 mg tablet RxNorm: 016058 1/2 Tablet(s) PO daily 01/30/2016 02/05/2016 Inactive doxazosin 4 mg tablet RxNorm: 374913 1.5 Tablet(s) PO BID 01/30/2016 01/23/2017 Inactive Flexeril 10 mg tablet RxNorm: 263697 TAKE ONE TABLET BY MOUTH EVERY 8 HOURS A S NEEDED 01/10/2016 01/29/2016 Inactive potassium chloride E R 10 mEq tablet,extended release RxNorm: 264546 1 Tablet(s) PO PRN as needed with lasix 12/25/2015 06/16/2016 Inactive prn swelling amlodipine 10 mg tablet RxNorm: 107891 TAKE ONE TABLET BY MOUTH EVERY MORNING 12/25/2015 12/24/2015 In active amlodipine 10 mg tablet RxNorm: 778126 TAKE ONE TABLET BY MOUTH EVERY MORNING 12/25/2015 01/29/2016 In active furosemide 20 mg tablet RxNorm: 813089 1/2 Tablet(s) PO daily as needed edema 12/21/2015 01/19/2016 In active pt needs to take 10meq potassium on days she takes the lasix metoprolol tartrate 100 mg tablet RxNorm: 508264 TAKE ONE AND ONE-HALF (1 & 1/2) TABLET BY MOUTH EVERY MORNING AND TAKE TWO TABLETS BY MOUTH EVERY EVENING 11/08/2015 12/07/2015 In active Flonase Allergy Reli ef 50 mcg/actuation nasal spray,suspension RxNorm: Woody as needed PLACE 2 SPRAYS IN EACH NOSTRIL DAILY 10/09/2015 02/05/2016 Inactive Flexeril 10 mg tablet RxNorm: 059342 1 Tablet(s) PO TID PRN TAKE ONE TABLET B Y MOUTH EVERY 8 HOURS NEEDED 10/09/2015 12/07/2015 Inactive alprazolam 0.5 mg ta blet RxNorm: 097394 TAKE ONE TABLET BY [facility] AT BEDTIME NEEDED FOR ANXIETY 08/29/2015 11/23/2015 Inactive Flonase Allergy Reli ef 50 mcg/actuation nasal spray,suspension RxNorm: PLACE 2 SPRAYS IN EACH NOSTRIL DAILY 07/06/2015 10/08/2015 Inactive Kenalog 40 mg/mL sylvia pension for injection RxNorm: 7817120 Milliliter(s) Inj 06/12/2015 06/12/2015 In active prednisone 10 mg tab lets in a dose pack RxNorm: 167190 1 Tablet(s) PO UD 06/12/2015 06/17/2015 In active 6-5-4-3-2-1 acyclovir 800 mg tablet RxNorm: 532431 1 Tablet(s) PO TID 06/12/2015 06/21/2015 Inactive Xanax 0.25 mg tablet RxNorm: 948936 1/2-1 Tablet(s) PO QDAY PRN 05/15/2015 02/07/2016 Inactive Flonase Allergy Reli ef 50 mcg/actuation nasal spray,suspension RxNorm: 2 Woody NASAL daily 05/15/2015 06/13/2015 Inactive Kenalog 40 mg/mL sylvia pension for injection RxNorm: 6989896 Milliliter(s) Inj 05/15/2015 05/15/2015 In active metoprolol tartrate 100 mg tablet RxNorm: 692859 TAKE ONE AND ONE-HALF (1 & 1/2) TABLET BY MOUTH EVERY MORNING AND TAKE TWO TABLETS BY MOUTH EVERY EVENING 05/07/2015 06/05/2015 In active metoprolol tartrate 100 mg tablet RxNorm: 648271 TAKE ONE AND ONE-HALF (1 & 1/2) TABLET BY MOUTH EVERY MORNING AND TAKE TWO TABLETS BY MOUTH EVERY EVENING 04/05/2015 05/04/2015 In active amlodipine 10 mg tablet RxNorm: 550231 TAKE ONE TABLET BY MOUTH EVERY MORNING 03/10/2015 12/04/2015 In active alprazolam 0.5 mg ta blet RxNorm: 450996 TAKE ONE TABLET BY MO [facility] EVERY NIGHT AT BEDTIME NEEDED FOR ANXIETY 02/23/2015 03/24/2015 Inactive (Response to an electronic controlled substance refill request - RxReferenceNumber: [id number]) alprazolam 0.5 mg ta blet RxNorm: 963134 1 Tablet(s) PO QHS as needed anxiety 02/23/2015 08/29/2015 In active (Response to an electronic controlled salas bstance refill request - RxReferenceNumber: [id number]) doxazosin 4 mg tablet RxNorm: 793937 TAKE ONE TABLET BY MOUTH TWICE A DAY 02/13/2015 01/29/2016 In active atorvastatin 20 mg t ablet RxNorm: 493376 TAKE ONE TABLET BY MO [facility] EVERY DAY 01/19/2015 07/17/2015 In active atorvastatin 20 mg t ablet RxNorm: 428502 Tablet(s) TAKE ONE TA BLET BY MOUTH EVERY DAY 01/19/2015 01/18/2015 Inactive [SAVINGS FOR NON-COVERED DRUGS -- BIN:00 3585, PCN: [id number], Group: XXXXX, ID# [id number], Questions: . THIS IS NOT INSURANCE.] Maxzide-25mg 37.5 mg -25 mg tablet RxNorm: 28498 1 Tablet(s) PO daily 01/10/2015 10/08/2015 Inactive [SAVINGS FOR NON-COVERED DRUGS -- BIN:00 3585, PCN: [email or web address], Group: XXXXX, ID# [id number], Questions: . THIS IS NOT INSURANCE.] metoprolol tartrate 100 mg tablet RxNorm: 429649 TAKE ONE AND ONE-HALF (1 & 1/2) TABLET BY MOUTH EVERY MORNING AND TAKE TWO TABLETS BY MOUTH EVERY EVENING 12/05/2014 01/03/2015 In active Flexeril 10 mg tablet RxNorm: 869533 TAKE ONE TABLET BY MOUTH EVERY 8 HOURS A S NEEDED 10/31/2014 06/27/2015 Inactive alprazolam 0.5 mg ta blet RxNorm: 652009 1 Tablet(s) PO QHS TA KE ONE TABLET BY MOUTH EVERY NIGHT AT BEDTIME AND NEEDED FOR PANIC ATTACKS 10/21/2014 10/23/2014 Inactive (Appended: Controlled substance eRx refi ll - RxReferenceNumber: [id number]) alprazolam 0.5 mg ta blet RxNorm: 363999 TAKE ONE TABLET BY MO [facility] EVERY NIGHT AT BEDTIME NEEDED FOR ANXIETY 10/20/2014 11/18/2014 Inactive (Response to an electronic controlled substance refill request - RxReferenceNumber: [id number]) amlodipine 10 mg tablet RxNorm: 090876 1 Tablet(s) PO QAM 09/09/2014 03/07/2015 Inactive now taking full tab [SAVINGS FOR UNINSURED PATIENTS -- BIN:[id number], PCN: [id number], Group: [facility], ID# [id number], Process claim through [employer], for questions: . THIS IS NOT INSURANCE.] metoprolol tartrate 100 mg tablet RxNorm: 317401 TAKE ONE AND ONE-HALF (1 & 1/2) TABLET BY MOUTH EVERY MORNING AND TAKE TWO TABLETS BY MOUTH EVERY EVENING 09/03/2014 10/02/2014 In active alprazolam 0.5 mg ta blet RxNorm: 823792 TAKE ONE TABLET BY MO [facility] EVERY NIGHT AT BEDTIME AND NEEDED FOR PANIC ATTACKS 08/29/2014 09/12/2014 Inactive (Response to an electronic controlled substance refill request - RxReferenceNumber: [id number]) Zithromax Z-Kush 250 mg tablet RxNorm: 144370 1 Tablet(s) PO UD 07/26/2014 07/25/2014 Inactive 2 tabs on day 1 then 1 tab daily on days 2-5 Zithromax Z-Kush 250 mg tablet RxNorm: 581722 1 Tablet(s) PO UD 07/26/2014 07/30/2014 Inactive 2 tabs on day 1 then 1 tab daily on days 2-5 alprazolam 0.5 mg ta blet RxNorm: 411567 Tablet(s) PO TAKE ONE TABLET BY MOUTH EVERY NIGHT AT BEDTIME AND NEEDED FOR PANIC ATTACKS 07/08/2014 08/30/2014 Inactive (Appended: Controlled substance eRx refill - RxReferenceNumber: [id number]) atorvastatin 20 mg t ablet RxNorm: 042179 TAKE ONE TABLET BY MO U[facility] EVERY DAY 04/25/2014 01/18/2015 In active Carafate 1 gram tablet RxNorm: 505847 Tablet(s) PO TAKE ONE TABLET BY MOUTH FO UR TIMES A DAY 04/14/2014 10/08/2015 Inactive Fish Oil 1,000 mg ca psule RxNorm: 1 Capsule(s) PO TID 04/13/2014 10/08/2015 Inactive Flexeril 10 mg tablet RxNorm: 810713 1 Tablet(s) PO Q8 PRN 04/01/2014 04/10/2014 Inactive Carafate 1 gram tablet RxNorm: 755917 1 Tablet(s) PO QID 03/10/2014 02/15/2019 Inactive chlordiazepoxide-cli dinium 5 mg-2.5 mg capsule RxNorm: 907117 1 Capsule(s) PO TID P RN 03/10/2014 04/10/2014 Inactive doxazosin 4 mg tablet RxNorm: 992275 1 Tablet(s) PO BID 02/02/2014 02/12/2015 Inactive Kenalog 40 mg/mL sylvia pension for injection RxNorm: 4271730 Milliliter(s) Inj 02/02/2014 02/02/2014 In active atorvastatin 20 mg t ablet RxNorm: 842601 Tablet(s) PO TAKE ONE TABLET BY MOUTH EVERY DAY 01/10/2014 04/24/2014 Inactive alprazolam 0.5 mg ta blet RxNorm: 235180 Tablet(s) PO TAKE ONE TABLET BY MOUTH EVERY NIGHT AT BEDTIME AND NEEDED FOR PANIC ATTACKS 01/10/2014 07/07/2014 Inactive (Appended: Controlled substance eRx refill - RxReferenceNumber: [id number]) alprazolam 0.5 mg ta blet RxNorm: 631251 1 Tablet(s) PO QHS TA KE ONE TABLET BY MOUTH EVERY NIGHT AT BEDTIME AND NEEDED FOR PANIC ATTACKS 01/10/2014 10/20/2014 Inactive (Appended: Controlled substance eRx refi ll - RxReferenceNumber: [id number]) alprazolam 0.5 mg ta blet RxNorm: 979851 Tablet(s) PO TAKE ONE TABLET BY MOUTH EVERY NIGHT AT BEDTIME AND NEEDED FOR PANIC ATTACKS 01/10/2014 01/09/2014 Inactive (Appended: Controlled substance eRx refill - RxReferenceNumber: [id number]) Carafate 1 gram tablet RxNorm: 914077 1 Tablet(s) PO QID 12/16/2013 01/14/2014 Inactive Nexium 40 mg capsule ,delayed release RxNorm: 558760 Capsule(s) PO TAKE ON E CAPSULE BY MOUTH EVERY DAY 11/25/2013 03/12/2016 Inactive doxazosin 4 mg tablet RxNorm: 386015 1/2 Tablet(s) PO QPM 10/21/2013 01/20/2019 Inactive alprazolam 0.5 mg ta blet RxNorm: 303950 1 Tablet(s) PO as dir ected q hs and prn panic attacks 10/18/2013 01/10/2014 Inactive doxazosin 4 mg tablet RxNorm: 574008 1 q am 1/2 q pm Tablet(s) PO 09/21/2013 02/01/2014 Inactive doxazosin 4 mg tablet RxNorm: 187325 1 q am 1/2 q pm Tablet(s) PO 09/21/2013 09/20/2013 Inactive amlodipine 10 mg tablet RxNorm: 209067 1 Tablet(s) PO QAM 08/30/2013 08/24/2014 Inactive now taking full tab metoprolol tartrate 100 mg tablet RxNorm: 303718 2 Tablet(s) PO QPM 08/24/2013 10/22/2013 Inactive alprazolam 0.5 mg ta blet RxNorm: 770655 1 Tablet(s) PO as dir ected q hs and prn panic attacks 07/29/2013 10/17/2013 Inactive Benicar 20 mg tablet RxNorm: 457503 1 Tablet(s) PO daily 07/26/2013 08/09/2013 Inactive amlodipine 10 mg tablet RxNorm: 262118 1 Tablet(s) PO QAM 07/19/2013 08/29/2013 Inactive cyclobenzaprine 5 mg tablet RxNorm: 719037 1 Tablet(s) PO TID HI N one pill every 8 hours as needed for muscle spasms. 07/19/2013 03/31/2014 Inactive Kenalog 40 mg/mL Sylvia p for Injection RxNorm: 8837400 1 Milliliter(s) Inj 06/30/2013 06/30/2013 In active prednisone 10 mg tab lets in a dose pack RxNorm: 146370 1 Tablet(s) PO as doc tor directed take steroid taper as directed on box 06/30/2013 07/09/2013 Inactive disp ense one PACK meclizine 25 mg tablet RxNorm: 820757 1 Tablet(s) PO Q6 PRN 1/2 - 1 pill every 6 hours as needed for vertigo 06/30/2013 08/10/2013 Inactive metoprolol tartrate 100 mg tablet RxNorm: 266543 1.5 Tablet(s) PO BID 06/30/2013 08/23/2013 In active metoprolol tartrate 100 mg tablet RxNorm: 932915 1 Tablet(s) PO BID 06/24/2013 06/29/2013 Inactive metoprolol tartrate 100 mg tablet RxNorm: 118741 1 Tablet(s) PO daily 06/17/2013 06/23/2013 In active metoprolol tartrate 100 mg tablet RxNorm: 440396 1 Tablet(s) PO daily 06/17/2013 06/16/2013 In active Toprol XL 100 mg tab let,extended release RxNorm: 563588 Tablet(s) PO TAKE ONE AND ONE- HALF TABLET BY MOUTH EVERY MORNING AND ONE TABLET IN THE EVENING 05/05/2013 06/22/2013 In active alprazolam 0.5 mg ta blet RxNorm: 661621 1 Tablet(s) PO as dir ected q hs and prn panic attacks 04/06/2013 07/28/2013 Inactive doxazosin 4 mg tablet RxNorm: 397541 Tablet(s) PO TAKE ONE TABLET BY MOUTH EV KANE DAY 04/01/2013 09/20/2013 Inactive Toprol XL 100 mg tab let,extended release RxNorm: 900117 Tablet(s) PO TAKE ONE AND ONE- HALF TABLET BY MOUTH EVERY MORNING AND ONE TABLET IN THE EVENING 12/25/2012 05/04/2013 In active Lasix 20 mg tablet RxNorm: 396967 1 Tablet(s) PO QDAY PRN Take 1 tab daily x 3 days then as needed 12/02/2012 04/10/2014 Inactive potassium chloride E R 20 mEq tablet,extended release(part/cryst) RxNorm: 299412 1 Tablet(s) PO PRN 12/02/2012 10/04/2013 Inactive prn swelling alprazolam 0.5 mg ta blet RxNorm: 727199 1 Tablet(s) PO as dir ected q hs and prn panic attacks 12/01/2012 04/05/2013 Inactive amlodipine 10 mg tablet RxNorm: 988655 1/2 Tablet(s) PO QAM 12/01/2012 07/18/2013 Inactive fluconazole 150 mg t ablet RxNorm: 616421 1 Tablet(s) PO daily 11/16/2012 11/20/2012 Inactive fluconazole 150 mg t ablet RxNorm: 493227 1 Tablet(s) PO daily 11/16/2012 11/15/2012 Inactive Nexium 40 mg capsule ,delayed release RxNorm: 717747 1 Capsule(s) PO daily 10/23/2012 11/16/2013 In active acyclovir 400 mg tablet RxNorm: 524459 1 Tablet(s) PO TID 10/19/2012 10/28/2012 Inactive chlordiazepoxide-cli dinium 5 mg-2.5 mg capsule RxNorm: 948784 1 Capsule(s) PO TID P RN 2012 12/22/2013 Inactive Voltaren 1 % Topical Gel RxNorm: 403338 4 Gram(s) TOP QID pt is to use 2 grams to each hand and 4 grams to knees. 08/18/2012 04/10/2014 Inactive doxazosin 4 mg tablet RxNorm: 015909 1 Tablet(s) PO QAM 08/18/2012 10/16/2012 Inactive atorvastatin 20 mg t ablet RxNorm: 519454 1 Tablet(s) PO HS 08/12/2012 08/11/2012 Inactive may have #90 x3 infection atorvastatin 20 mg t ablet RxNorm: 286043 1 Tablet(s) PO HS 08/12/2012 09/05/2013 Inactive may have #90 x3 infection doxazosin 4 mg tablet RxNorm: 296615 1 Tablet(s) PO daily 08/11/2012 08/17/2012 Inactive clonidine 0.1 mg/24 hr Weekly Transderm Patch RxNorm: 354879 1 Patch TD QW 08/04/2012 08/10/2012 In active Influenza Virus Vacc ine 0.5 mL RxNorm: IM 08/04/2012 08/04/2012 Inactive cyclobenzaprine 5 mg tablet RxNorm: 362814 1 Tablet(s) PO TID HI N one pill every 8 hours as needed for muscle spasms. 07/13/2012 11/09/2012 Inactive cyclobenzaprine 5 mg tablet RxNorm: 021016 1 Tablet(s) PO TID HI N one pill every 8 hours as needed for muscle spasms. 07/09/2012 07/12/2012 Inactive gabapentin 100 mg ca psule RxNorm: 798058 1 Capsule(s) PO TID 07/01/2012 12/01/2012 Inactive atorvastatin 20 mg t ablet RxNorm: 293481 1/2 Tablet(s) PO daily 07/01/2012 08/11/2012 Inactive may of day supply if cheaper Toprol XL 100 mg tab let,extended release RxNorm: 923628 Tablet(s) PO BID 11/2 in am and 1 in evening 07/01/2012 06/16/2013 Inactive 1 1/2 q am 1 in polly alprazolam 0.5 mg ta blet RxNorm: 665766 1 Tablet(s) PO as dir ected q hs and prn panic attacks 06/24/2012 11/30/2012 Inactive amlodipine 10 mg tablet RxNorm: 178998 1 Tablet(s) PO QAM 06/19/2012 11/30/2012 Inactive benazepril 20 mg tablet RxNorm: 408224 1 Tablet(s) PO daily 06/19/2012 06/13/2013 Inactive one daily at noon Toprol XL 100 mg tab let,extended release RxNorm: 311237 Tablet(s) PO BID 06/19/2012 06/30/2012 In active 1 1/2 q am 1 in polly Toprol XL 100 mg tab let,extended release RxNorm: 986918 1 1/2 Tablet(s) PO BI D 04/27/2012 06/18/2012 In active 90 or 30 day supply, whatever ins will a llow Lotrel 10 mg-20 mg Cap RxNorm: 003188 1 Capsule(s) PO daily 04/20/2012 08/04/2012 Inactive estradiol 0.5 mg Tab RxNorm: 990740 1 Tablet(s) PO BID 04/20/2012 12/02/2012 Inactive Toprol XL 100 mg 24 hr Tab RxNorm: 351675 1 1/2 Tablet(s) PO BID 04/14/2012 04/26/2012 Inactive Toprol XL 100 mg 24 hr Tab RxNorm: 640005 Tablet(s) PO daily 03/31/2012 04/13/2012 Inactive new directions: one q am 1/2 every evepl ease put on file until she needs filled Lipitor 10 mg tablet RxNorm: 711183 1 Tablet(s) PO daily 03/31/2012 12/02/2012 Inactive march supply if cheaper Toprol XL 100 mg 24 hr Tab RxNorm: 550357 1 Tablet(s) PO daily 03/11/2012 03/30/2012 Inactive Boniva 150 mg Tab RxNorm: 502599 1 Tablet(s) PO weekly 02/19/2012 12/02/2012 Inactive Detrol LA 4 mg capsu le,extended release RxNorm: 688907 1 Capsule(s) PO daily 02/19/2012 03/12/2016 In active doxycycline hyclate 100 mg Tab RxNorm: 0850906 1 Tablet(s) PO BID 01/23/2012 02/25/2012 Inactive Rocephin 500 mg Solu tion for Injection RxNorm: 6657251 1 Milliliter(s) Inj 01/23/2012 01/23/2012 In active Kenalog 40 mg/mL Sylvia p for Injection RxNorm: 4232358 1 Milliliter(s) Inj 01/23/2012 01/23/2012 In active cyclobenzaprine 5 mg tablet RxNorm: 331354 1 Tablet(s) PO TID HI N one pill every 8 hours as needed for muscle spasms. 12/20/2011 04/17/2012 Inactive clonidine 0.1 mg Tab RxNorm: 831305 1 Tablet(s) PO BID 12/20/2011 02/25/2012 Inactive Vitamin D3 5,000 uni t tablet RxNorm: 189208 1 Tablet(s) PO daily No Start Date Active Nexium 24HR 22.3 mg capsule,delayed release RxNorm: 968888 1 Capsule(s) PO daily as needed No Start Date Active Lotrel 10 mg-20 mg Cap RxNorm: 558181 1 Capsule(s) PO daily No Start Date 02/24/2012 Inactive benazepril 20 mg tablet RxNorm: 866804 1 Tablet(s) PO No Start Date 06/18/2012 Inactive one daily at noon Vimovo 500 mg-20 mg multiphase, immed & delay rel Tab RxNorm: 494877 1 Tablet(s) PO BID No Start Date 12/01/2012 Inactive B12 1000 mcg RxNorm: 2 IM daily No Start Date 03/12/2016 Inactive Fish Oil 1,000 mg ca psule RxNorm: 1 Capsule(s) PO BID No Start Date 04/12/2014 Inactive Benicar 40 mg tablet RxNorm: 259185 1 Tablet(s) PO daily No Start Date 10/24/2013 Inactive Carafate 1 gram tablet RxNorm: 927362 Oral No Start Date 12/15/2013 Inactive Vitamin B-12 1,000 m cg tablet RxNorm: 908695 1 Tablet(s) PO daily No Start Date 03/12/2016 Inactive amlodipine 10 mg tablet RxNorm: 197260 1 Tablet(s) PO daily No Start Date 06/18/2012 Inactive Phenergan VC-Codeine 6.25 mg-5 mg-10 mg/5 mL Syrup RxNorm: 616355 5-10 Milliliter(s) PO Q6 PRN No Start Date 04/10/2014 Inactive Celebrex 200 mg capsule RxNorm: 493355 1 Capsule(s) PO daily No Start Date 10/08/2015 Inactive Percocet 5 mg-325 mg tablet RxNorm: 7385601 1-2 Tablet(s) PO Q6 PRN No Start Date 06/16/2014 Inactive Exforge 10 mg-320 mg Tab RxNorm: 760177 1 Tablet(s) PO daily sample No Start Date 05/20/2012 Inactive Lipitor 10 mg Tab RxNorm: 022126 1 Tablet(s) PO daily No Start Date 03/30/2012 Inactive tramadol 50 mg tablet RxNorm: 656260 1-2 Tablet(s) PO Q8 as needed No Start Date 04/24/2016 Inactive Lasix 20 mg tablet RxNorm: 447378 1 Tablet(s) PO QDAY PRN Take 1 tab daily x 3 days then as needed No Start Date 12/01/2012 Inactive potassium chloride E R 20 mEq tablet,extended release(part/cryst) RxNorm: 0144381 1 Tablet(s) PO QDAY PRN No Start Ochoa e 12/01/2012 Inactive Toprol XL 100 mg 24 hr Tab RxNorm: 369086 1 Tablet(s) PO daily No Start Date 03/10/2012 Inactive MIDRIN 325 mg-65 mg- 100 mg Cap RxNorm: 140177 1 Capsule(s) PO PRN No Start Date 05/20/2012 Inactive Nexium 40 mg capsule ,delayed release RxNorm: 108309 1 Capsule(s) PO daily No Start Date 10/22/2012 Inactive Detrol LA 4 mg 24 hr Cap RxNorm: 552666 Oral No S tart Date 02/18/2012 Inactive Boniva 150 mg Tab RxNorm: 605155 Oral No Start Date 02/18/2012 Inactive Flexeril 10 mg tablet RxNorm: 636456 1 Tablet(s) PO Q8 PRN No Start Date 03/31/2014 Inactive clidinium bromide Oral RxNorm: Oral No Start Date 12/01/2012 Inactive Fish Oil 360 mg-1,20 0 mg capsule,delayed release RxNorm: 1 Capsule(s) PO daily No Start Date 02/15/2019 Inactive alprazolam 0.5 mg ta blet RxNorm: 960843 1 Tablet(s) PO as dir ected q hs and prn panic attacks No Start Date 06/23/2012 Inactive chlordiazepoxide Oral RxNorm: Oral No Start Date 12/01/2012 Inactive metoprolol tartrate 100 mg tablet RxNorm: 356687 Tablet(s) PO TAKE ONE AND ONE-HALF (1 & 1/2) TABLET BY MOUTH EVERY MORNING AND TAKE TWO TABLETS BY MOUTH EVERY EVENING No Start Date 08/03/2014 Inactive furosemide 20 mg tablet RxNorm: 379610 1 Tablet(s) PO daily No Start Date 01/29/2016 Inactive Calcium Oral RxNorm: Oral No Start Date 03/12 Inactive Nasonex 50 mcg/actua tion Woody RxNorm: 400611 1 Woody NASAL BID No Start Date 04/10/2014 Inactive Medication Administered Medication Codes Instruc tions Start Date Status Kenalog 40 mg/mL suspension for injection RxNorm: 1191280 Milliliter 04/24/2018 No longer Active Kenalog 40 mg/mL suspension for injection RxNorm: 8170021 Milliliter 06/23/2017 No longer Active Kenalog 40 mg/mL suspension for injection RxNorm: 0382725 2Milliliter 03/21/2017 N o longer Active Kenalog 40 mg/mL suspension for injection RxNorm: 8011933 1Milliliter 04/04/2016 N o longer Active Kenalog 40 mg/mL suspension for injection RxNorm: 8853181 Milliliter 06/12/2015 No longer Active Kenalog 40 mg/mL suspension for injection RxNorm: 5000656 Milliliter 05/15/2015 No longer Active Kenalog 40 mg/mL suspension for injection RxNorm: 4491062 Milliliter 02/02/2014 No longer Active Kenalog 40 mg/mL Susp for Injection RxNorm: 0051782 1Milliliter 06/30/2013 N o longer Active Influenza Virus Vaccine 0.5 mL RxNorm: 08/04/2012 No longer Active Rocephin 500 mg Solution for Injection RxNorm: 9186056 1Milliliter 01/23/2012 N o longer Active Kenalog 40 mg/mL Susp for Injection RxNorm: 1928168 1Milliliter 01/23/2012 N o longer Active Immunizations [...] Ord2 RDW 14.8 % 06/05/2015 Comp Metabolic Ptu157 NA 138 mEq/L 06/05/2015 Comp Metabolic Ady216 K 4.3 mEq/L 06/05/2015 Comp Metabolic Wme230 CL 100 mEq/L 06/05/2015 Comp Metabolic Ful971 CO2 29.0 mEq/L 06/05/2015 Comp Metabolic Xcn772 AN ION GAP 13 06/05/2015 Comp Metabolic Aga348 GL UCOSE 85 mg/dL 06/05/2015 Comp Metabolic Ogl386 Cr eat 0.7 mg/dL 06/05/2015 Comp Metabolic Iii304 eG FR 94 ml/min/1.73m2 06/05 Comp Metabolic Xgz337 BUN 16 mg/dL 06/05/2015 Comp Metabolic Jsm306 B/ C Ratio 24.2 Ratio 06/05/2015 Comp Metabolic Yhi678 CA LCIUM 9.5 mg/dL 06/05/2015 Comp Metabolic Vje607 AL K PHOS 69 U/L 06/05/2015 Comp Metabolic Xld322 T(SGOT) 22 U/L 06/05/2015 Comp Metabolic Lar530 AL T(SGPT) 26 U/L 06/05/2015 Comp Metabolic Mfs214 BI LI T 0.5 mg/dL 06/05/2015 Comp Metabolic Odb504 AL BUMIN 4.2 g/dL 06/05/2015 Comp Metabolic Olp479 TP RO 6.1 g/dL 06/05/2015 Comp Metabolic Bot584 GL OB 1.9 g/dL 06/05/2015 Comp Metabolic Oko215 A/ G Ratio 2.2 Ratio 06/05/2015 Comp Metabolic Mfi797 Os mo 276 mOsmo 06/05/2015 Tsh Ord6 hTSH II 1.99 uIU/mL 06/05/2015 Lipid Ord30 CHOL 171 mg/dL 06/05/2015 Lipid Ord30 HDL 55.0 mg/dl 06/05/2015 Lipid Ord30 TRIG 178 mg/dL 06/05/2015 Lipid Ord30 LDL 80 mg/dL 06/05/2015 Lipid Ord30 C/HDL 3.1 Ratio 06/05/2015 %Hba1C Xgu744 % HbA1c 65062-6 5.7 % 06/05/2015 %Hba1C Yoi768 Gluc Ave 117 mg/dL 06/05/2015 A1C HPLC 8753356 A1C HPLC 18561-3 5.6 % 07/15/2014 GFR CALC 4491542 GFR AA >60 ML/MIN 07/15/2014 GFR CALC 5877925 GFR NON -AA >60 ML/MIN 07/15/2014 CHEM 14 2561304 AST 21 U/L 07/15/2014 CHEM 14 6378107 ALT 23 IU/L 07/15/2014 CHEM 14 9865568 BUN 14 MG/DL 07/15/2014 CHEM 14 3173446 ALBUMIN 4.2 GM/DL 07/15/2014 CHEM 14 0492859 CHLORIDE 104 MMOL/L 07/15/2014 CHEM 14 2070784 BILI TOT 0.4 MG/DL 07/15/2014 CHEM 14 1110535 ALK PHOS 88 U/L 07/15/2014 CHEM 14 1869139 SODIUM 140 MMOL/L 07/15/2014 CHEM 14 6271150 CREATINI NE 0.63 MG/DL 07/15/2014 CHEM 14 0211544 CALCIUM 9.4 MG/DL 07/15/2014 CHEM 14 3919000 POTASSIUM 4.0 MMOL/L 07/15/2014 CHEM 14 8629181 PROT TOT 6.4 GM/DL 07/15/2014 CHEM 14 0194810 GLUCOSE 90 MG/DL 07/15/2014 CHEM 14 6786763 BICARB 30 MMOL/L 07/15/2014 CHEM 14 1243282 ANION GAP 6 MEQ/L 07/15/2014 A1C HPLC 2019798 A1C HPLC 72393-0 6.0 % 04/13/2014 TSH 2910172 TSH 1.875 uIU/ML 04/12/2014 CHEM 14 9590845 AST 17 U/L 04/12/2014 CHEM 14 0029865 ALT 20 IU/L 04/12/2014 CHEM 14 2064704 BUN 14 MG/DL 04/12/2014 CHEM 14 4785347 ALBUMIN 4.2 GM/DL 04/12/2014 CHEM 14 4840719 CHLORIDE 104 MMOL/L 04/12/2014 CHEM 14 5982542 BILI TOT 0.3 MG/DL 04/12/2014 CHEM 14 2190626 ALK PHOS 80 U/L 04/12/2014 CHEM 14 0756612 SODIUM 141 MMOL/L 04/12/2014 CHEM 14 4026496 CREATINI NE 0.62 MG/DL 04/12/2014 CHEM 14 8972217 CALCIUM 9.4 MG/DL 04/12/2014 CHEM 14 8096340 POTASSIUM 3.5 MMOL/L 04/12/2014 CHEM 14 8230321 PROT TOT 6.5 GM/DL 04/12/2014 CHEM 14 9984515 GLUCOSE 89 MG/DL 04/12/2014 CHEM 14 1623692 BICARB 29 MMOL/L 04/12/2014 CHEM 14 2961310 ANION GAP 8 MEQ/L 04/12/2014 LIPID GRP HDL TE ST 59 MG/DL 04/12/2014 LIPID GRP TRIG 177 MG/DL 04/12/2014 LIPID GRP TEST L DL 106 MG/DL 04/12/2014 LIPID GRP CHOL 200 MG/DL 04/12/2014 LIPID GRP RCHOL/ HDL 3.39 RATIO 04/12/2014 CBC 4944237 WBC 4.6 10e9/L 04/12/2014 CBC 8853574 RBC 4.52 10e12/L 04/12/2014 CBC 2822958 HGB 13.1 g/dL 04/12/2014 CBC 5340443 HCT DET 39.2 % 04/12/2014 CBC 1570233 MCV 86.7 fL 04/12/2014 CBC 3631160 MCH 29.0 pg 04/12/2014 CBC 9912876 MCHC 33.4 g/dL 04/12/2014 CBC 4813078 PLT 233 10e9/L 04/12/2014 CBC 4203028 MPV 9.8 fL 04/12/2014 CBC 6193588 AN % 59.5 % 04/12/2014 CBC 7451730 LY % 28.6 % 04/12/2014 CBC 3563179 MON % 10.0 % 04/12/2014 CBC 0618768 EOS % 1.5 % 04/12/2014 CBC 4586491 BASO % 0.4 % 04/12/2014 CBC 3168692 RDW 13.7 % 04/12/2014 CBC 3321564 ABS AN 2.74 10e9/L 04/12/2014 CBC 6085566 ABS LYMPH 1.32 10e9/L 04/12/2014 CBC 6223216 ABS MONO 0.46 10e9/L 04/12/2014 CBC 0695738 ABS EOS 0.07 10e9/L 04/12/2014 CBC 1979540 ABS BASO 0.02 10e9/L 04/12/2014 CBC 3099328 RDW-SD 42.6 fL 04/12/2014 GFR CALC 5999719 GFR AA >60 ML/MIN 04/12/2014 GFR CALC 0252161 GFR NON -AA >60 ML/MIN 04/12/2014 LIPID GRP HDL TE ST 57 MG/DL 08/24/2013 LIPID GRP TRIG 183 MG/DL 08/24/2013 LIPID GRP TEST L DL 64 MG/DL 08/24/2013 LIPID GRP CHOL 158 MG/DL 08/24/2013 LIPID GRP RCHOL/ HDL 2.77 RATIO 08/24/2013 GFR CALC 3098609 GFR AA >60 ML/MIN 08/24/2013 GFR CALC 4862021 GFR NON -AA >60 ML/MIN 08/24/2013 CHEM 14 20280507 AST 13 U/L 08/24/2013 CHEM 14 20280507 ALT 15 IU/L 08/24/2013 CHEM 14 20280507 BUN 14 MG/DL 08/24/2013 CHEM 14 8019647 ALBUMIN 4.3 GM/DL 08/24/2013 CHEM 14 7823853 CHLORIDE 106 MMOL/L 08/24/2013 CHEM 14 9541780 BILI TOT 0.3 MG/DL 08/24/2013 CHEM 14 8840797 ALK PHOS 75 U/L 08/24/2013 CHEM 14 4622699 SODIUM 141 MMOL/L 08/24/2013 CHEM 14 1471309 CREATINI NE 0.56 MG/DL 08/24/2013 CHEM 14 0670452 CALCIUM 9.1 MG/DL 08/24/2013 CHEM 14 3611776 POTASSIUM 4.2 MMOL/L 08/24/2013 CHEM 14 3729629 PROT TOT 6.0 GM/DL 08/24/2013 CHEM 14 6277947 GLUCOSE 83 MG/DL 08/24/2013 CHEM 14 1339328 BICARB 28 MMOL/L 08/24/2013 CHEM 14 6447157 ANION GAP 7 MEQ/L 08/24/2013 CBC 3715868 WBC 4.7 10e9/L 08/24/2013 CBC 5688933 RBC 4.33 10e12/L 08/24/2013 CBC 4873594 HGB 12.5 g/dL 08/24/2013 CBC 1013538 HCT DET 38.2 % 08/24/2013 CBC 8404242 MCV 88.2 fL 08/24/2013 CBC 0744210 MCH 28.9 pg 08/24/2013 CBC 2452331 MCHC 32.7 g/dL 08/24/2013 CBC 5718097 PLT 218 10e9/L 08/24/2013 CBC 5593702 MPV 10.4 fL 08/24/2013 CBC 8809850 AN % 61.9 % 08/24/2013 CBC 0949675 LY % 24.8 % 08/24/2013 CBC 5927647 MON % 10.3 % 08/24/2013 CBC 3370944 EOS % 2.1 % 08/24/2013 CBC 8432696 BASO % 0.9 % 08/24/2013 CBC 6152652 RDW 14.6 % 08/24/2013 CBC 7286427 ABS AN 2.91 10e9/L 08/24/2013 CBC 5349528 ABS LYMPH 1.17 10e9/L 08/24/2013 CBC 6816506 ABS MONO 0.48 10e9/L 08/24/2013 CBC 7564079 ABS EOS 0.10 10e9/L 08/24/2013 CBC 1996742 ABS BASO 0.04 10e9/L 08/24/2013 CBC 9758564 RDW-SD 46.7 fL 08/24/2013 TSH 3153691 TSH 1.208 uIU/ML 08/24/2013 Review of Systems [...] Respiratory No chest tightness 09/22/2018 Neurologic headache 112 Neurologic No dizziness 09/22/2018 Neurologic No gait [...] clear 05/15/2015 None Full Exam - General 1995 Ears/Nose/Throat [...] clear 04/20/2012 None Full Exam - General 1995 [...] clear 03/10/2012 None Full Exam - General 1995 Ears/Nose/Throat [...] nourished 02/25/2012 None Full Exam - General 1995 [...] Formatting Model/CDA Sections, Assigned to/Jen Cota CPT-4: 61234Tlhrpba 07/28/2018 THER/PROPH/DIAG INJ SC/IM CPT-4: 32940 04/24/2018 TRIAMCINOLONE ACET I [place] NOS CPT-4: J3301 04/24/2018 PPPS, SUBSEQ VISIT CPT- 4: G0439 02/03/2018 TRIAMCINOLONE ACET I [place] NOS CPT-4: J3301 06/23/2017 TRIAMCINOLONE ACET I [place] NOS CPT-4: J3301 03/21/2017 PPPS, SUBSEQ VISIT CPT- 4: G0439 01/22/2017 ADMIN PNEUMOCOCCAL V ACCINE SNOMED CT: [id number] CPT-4: G0009 09/16/2016 Pneumococcal Polysac charide Vaccine, 23-Valent, Ad CPT-4: 78807 09/16/2016 THER/PROPH/DIAG INJ SC/IM CPT-4: 76504 04/04/2016 TRIAMCINOLONE ACET I [place] NOS CPT-4: J3301 04/04/2016 ADMIN INFLUENZA VIRU S VAC CPT-4: G0008 07/28/2015 FLU VACC 4 XIMENA 3 YRS PLUS IM Formatting Model/CDA Sections, Assigned to/Jen Cota SNOMED CT: [id number] CPT-4: 70423Afazjip 07/28/2015 TRIAMCINOLONE ACET I [place] NOS CPT-4: J3301 06/12/2015 TRIAMCINOLONE ACET I [place] NOS CPT-4: J3301 05/15/2015 ADMIN INFLUENZA VIRU S VAC CPT-4: G0008 07/19/2014 FLU VAC NO PRSV 4 VA L 3 YRS+ Assigned to/Jen Cota CPT-4: 55965Orvmrxj 07/19/2014 TRIAMCINOLONE ACET I [place] NOS CPT-4: J3301 02/02/2014 ROUTINE VENIPUNCTURE CPT-4: 88577 08/24/2013 ADMIN INFLUENZA VIRU S VAC CPT-4: [...] CPT-4: J3301 01/23/2012 THER/PROPH/DIAG INJ SC/IM CPT-4: 44082 01/23/2012 REMOVE IMPACTED EAR WAX UNI CPT-4: 21508 01/02/2012 ROUTINE VENIPUNCTURE CPT-4: 38500 12/20/2011 Vital Signs Date Vital 02/16/2019 Blood Pressure 1: 136/82 Code: 8480-6 BMI: 34.0 Code: 02470-8 Heart Rate 1: 88 bpm Height: 5' SpO2: 94% Weight: 177 lbs 01/21/2019 Blood Pressure 1: 144/70 Code: 8480-6 BMI: 34.0 Code: 01315-9 Heart Rate 1: 68 bpm Height: 5' SpO2: 97% Temperature: 36.5 (C ) / 97.7 (F) Weight: 177 lbs 10/14/2018 Blood Pressure 1: 150/72 Code: 8480-6 Heart Rate 1: 58 bpm Height: 5' SpO2: 98% Weight: 09/22/2018 Blood Pressure 1: 140/80 Code: 8480-6 BMI: 32.7 Code: 10485-9 Heart Rate 1: 55 bpm Height: 5' SpO2: 98% Weight: 170 lbs 08/17/2018 Blood Pressure 1: 140/76 Code: 8480-6 BMI: 33.0 Code: 56750-9 Heart Rate 1: 60 bpm Height: 5' SpO2: 99% Weight: 172 lbs 06/08/2018 Blood Pressure 1: 136/80 Code: 8480-6 BMI: 33.8 Code: 56586-3 Heart Rate 1: 65 bpm Height: 5' SpO2: 98% Weight: 176 lbs 05/04/2018 Blood Pressure 1: 134/80 Code: 8480-6 BMI: 35.9 Code: 44822-4 Heart Rate 1: 72 bpm Height: 5' SpO2: 94% Weight: 187 lbs 02/04/2018 Blood Pressure 1: 144/76 Code: 8480-6 BMI: 35.0 Code: 85200-3 Heart Rate 1: 64 bpm Height: 5' SpO2: 98% Weight: 182 lbs 02/03/2018 Blood Pressure 1: 136/62 Code: 8480-6 BMI: 35.0 Code: 89819-1 Heart Rate 1: 57 bpm Height: 5' SpO2: 98% Waist Measure (cm): 94 cm Weight: 182 lbs 09/17/2017 Blood Pressure 1: 150/82 Code: 8480-6 BMI: 33.6 Code: 87983-4 Heart Rate 1: 58 bpm Height: 5' SpO2: 98% Weight: 175 lbs 06/23/2017 Blood Pressure 1: 124/66 Code: 8480-6 Heart Rate 1: 65 bpm Height: 5' SpO2: 97% Weight: 05/13/2017 Blood Pressure 1: 128/80 Code: 8480-6 BMI: 32.8 Code: 04068-8 Heart Rate 1: 76 bpm Height: 5' SpO2: 95% Weight: 171 lbs 03/21/2017 Blood Pressure 1: 152/88 Code: 8480-6 Heart Rate 1: 70 bpm Height: SpO2: 98% Weight: 03/19/2017 Blood Pressure 1: 132/64 Code: 8480-6 BMI: 33.0 Code: 73591-3 Heart Rate 1: 64 bpm Height: 5' SpO2: 96% Weight: 172 lbs 01/22/2017 Blood Pressure 1: 120/68 Code: 8480-6 BMI: 33.4 Code: 86125-8 Heart Rate 1: 68 bpm Height: 5' SpO2: 96% Weight: 174 lbs 01/14/2017 Blood Pressure 1: 138/80 Code: 8480-6 BMI: 33.4 Code: 89597-9 Heart Rate 1: 69 bpm Height: 5' SpO2: 98% Weight: 174 lbs 09/23/2016 Blood Pressure 1: 138/70 Code: 8480-6 BMI: 33.6 Code: 95995-3 Heart Rate 1: 68 bpm Height: 5' SpO2: 98% Temperature: 36.4 (C ) / 97.5 (F) Weight: 175 lbs 09/16/2016 Blood Pressure 1: 124/74 Code: 8480-6 BMI: 33.6 Code: 38547-7 Heart Rate 1: 64 bpm Height: 5' SpO2: 97% Weight: 175 lbs 06/25/2016 Weigh t: 174 lbs 06/17/2016 Blood Pressure 1: 128/80 Code: 8480-6 BMI: 34.0 Code: 28578-1 Heart Rate 1: 76 bpm Height: 5' SpO2: 95% Weight: 177 lbs 04/03/2016 Blood Pressure 1: 138/72 Code: 8480-6 BMI: 34.2 Code: 95910-9 Heart Rate 1: 63 bpm Height: 5' SpO2: 96% Weight: 178 lbs 03/13/2016 Blood Pressure 1: 128/72 Code: 8480-6 BMI: 35.3 Code: 98137-9 Heart Rate 1: 71 bpm Height: 5' SpO2: 97% Weight: 184 lbs 01/30/2016 Blood Pressure 1: 134/72 Code: 8480-6 BMI: 35.2 Code: 82913-6 Heart Rate 1: 71 bpm Height: 5' SpO2: 96% Weight: 183 lbs 12/21/2015 Blood Pressure 1: 148/90 Code: 8480-6 BMI: 34.6 Code: 38802-3 Heart Rate 1: 89 bpm Height: 5' SpO2: 96% Weight: 180 lbs 10/09/2015 Blood Pressure 1: 124/76 Code: 8480-6 BMI: 34.6 Code: 20181-3 Heart Rate 1: 88 bpm Height: 5' SpO2: 96% Weight: 180 lbs 06/12/2015 Blood Pressure 1: 148/74 Code: 8480-6 BMI: 33.4 Code: 18862-7 Heart Rate 1: 70 bpm Height: 5' SpO2: 96% Weight: 174 lbs 06/05/2015 Blood Pressure 1: 142/82 Code: 8480-6 BMI: 33.2 Code: 60617-8 Heart Rate 1: 72 bpm Height: 5' Weight: 173 lbs 05/15/2015 Blood Pressure 1: 118/80 Code: 8480-6 BMI: 33.6 Code: 89121-7 Heart Rate 1: 82 bpm Height: 5' Weight: 175 lbs 02/06/2015 Blood Pressure 1: 122/76 Code: 8480-6 BMI: 34.6 Code: 77150-6 Heart Rate 1: 58 bpm Height: 5' Weight: 180 lbs 01/10/2015 Blood Pressure 1: 158/90 Code: 8480-6 Blood Pressure 2: 152/90 Code: 8480-6 BMI: 34.6 Code: 84593-6 Heart Rate 1: 68 bpm Height: 5' Weight: 180 lbs 07/19/2014 Blood Pressure 1: 142/78 Code: 8480-6 BMI: 33.6 Code: 85550-0 Heart Rate 1: 56 bpm Height: 5' Weight: 175 lbs 06/17/2014 Blood Pressure 1: 128/86 Code: 8480-6 Heart Rate 1: 66 bpm SpO2: 98% Weight: 172 lbs 04/19/2014 Blood Pressure 1: 152/82 Code: 8480-6 BMI: 32.5 Code: 33015-4 Heart Rate 1: 60 bpm Height: 5' Weight: 169 lbs 04/11/2014 Blood Pressure 1: 120/80 Code: 8480-6 BMI: 33.4 Code: 40015-3 Heart Rate 1: 64 bpm Height: 5' Weight: 174 lbs 03/10/2014 Blood Pressure 1: 136/64 Code: 8480-6 BMI: 32.7 Code: 14239-5 Heart Rate 1: 76 bpm Height: 5' Weight: 170 lbs 02/02/2014 Blood Pressure 1: 160/76 Code: 8480-6 BMI: 32.7 Code: 64913-0 Heart Rate 1: 64 bpm Height: 5' Weight: 170 lbs 10/25/2013 Blood Pressure 1: 164/82 Code: 8480-6 BMI: 31.9 Code: 12774-0 Heart Rate 1: 60 bpm Height: 5' Weight: 166 lbs 08/24/2013 Blood Pressure 1: 138/88 Code: 8480-6 Heart Rate 1: 80 bpm Weight: 07/26/2013 Blood Pressure 1: 154/70 Code: 8480-6 Heart Rate 1: 72 bpm Weight: 162 lbs 06/30/2013 Blood Pressure 1: 182/86 Code: 8480-6 Heart Rate 1: 80 bpm Weight: 06/24/2013 Blood Pressure 1: 148/68 Code: 8480-6 BMI: 31.3 Code: 34692-9 Heart Rate 1: 72 bpm Height: 5' [...] 1: 142/88 Code: 8480-6 BMI: 30.6 Code: 19262-1 Heart Rate 1: 64 bpm Height: 5' [...] 1: 180/96 Code: 8480-6 BMI: 30.5 Code: 64566-2 Heart Rate 1: 76 bpm Height: 5' Respiratory Rate: 16 bpm Weight: 159 lbs 02/19/2012 Blood Pressure 1: 150/70 Code: 8480-6 Blood Pressure 2: 160/78 Code: 8480-6 Heart Rate 1: 76 bpm Respiratory Rate: 16 bpm Weight: 158 lbs 01/23/2012 Blood Pressure 1: 140/84 Code: 8480-6 BMI: 30.3 Code: 08487-0 Heart Rate 1: 68 bpm Height: 5' Respiratory Rate: 16 bpm SpO2: 98% Temperature: 37.0 (C ) / 98.6 (F) Weight: 158 lbs 01/02/2012 Blood Pressure 1: 142/92 Code: 8480-6 BMI: 30.7 Code: 13793-5 Heart Rate 1: 72 bpm Height: 5' Respiratory Rate: 16 bpm Weight: 160 lbs 12/20/2011 Blood Pressure 1: 170/84 Code: 8480-6 BMI: 30.0 Code: 88947-8 Heart Rate 1: 70 bpm Height: 5' [...] 06/12/2015 None rash Location-Head/Neck on the right moravian 06/12/2015 None rash Location-Head/Neck on the right [...] Encounters Encounter Performer Loca tion Codes Date ([id number]) [id number] EST. 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 P ATIENT, LEVEL III Diagnosis: Cough[ICD10: R05] Diagnosis: Acute upper respiratory infection, unspecified[ICD10: J06.9] [facility] CPT-4: 18272 01/21/2019 [id number]) 17331 EST. P ATIENT, LEVEL IV Diagnosis: Essential (primary) hypertension[ICD10: I10] Diagnosis: Mixed hyperlipidemia[ICD10: E78.2] [facility] CPT- 4: 72878 10/14/2018 ([id number]) 25115 EST. P ATIENT, LEVEL III Diagnosis: Essential (primary) hypertension[ICD10: I10] Diagnosis: Other specified cardiac arrhythmias[ICD10: I49.8] [facility] CPT-4: 22005 09/22/2018 ([id number]) 99554 EST. P ATIENT, LEVEL IV Diagnosis: Essential (primary) hypertension[ICD10: I10] Diagnosis: Allergic rhinitis due to pollen[ICD10: J30.1] Diagnosis: Sciatica, right side[ICD10: M54.31] Zoya Varela MD, [facility] CPT- 4: 59108 08/17/2018 ([id number]) 89937 EST. 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 P ATIENT, LEVEL III Diagnosis: Acute upper respiratory infection, unspecified[ICD10: J06.9] Kacy Varela MD, [facility] CPT-4: 69775 05/04/2018 ([id number]) 61277 EST. P ATIENT, LEVEL IV Diagnosis: Essential (primary) hypertension[ICD10: I10] Diagnosis: Type 2 diabetes mellitus without complications[ICD10: E11.9] Diagnosis: Mixed hyperlipidemia[ICD10: E78.2] Diagnosis: Localized edema[ICD10: R60.0] Zoya Varela MD, [facility] CPT-4: 08812 02/04/2018 ([id number]) 71606 EST. P ATIENT, LEVEL IV Diagnosis: Essential (primary) hypertension[ICD10: I10] Zoya Varela MD, [facility] CPT-4: 04320 09/17/2017 ([id number]) 59038 EST. P ATIENT, LEVEL III Diagnosis: Allergic contact dermatitis due to plants, except food[ICD10: L23.7] Kacy Varela MD, [facility] CPT-4: 77376 06/23/2017 ([id number]) 59722 EST. P ATIENT, LEVEL IV Diagnosis: Essential (primary) hypertension[ICD10: I10] Diagnosis: Mixed hyperlipidemia[ICD10: E78.2] Zoya Varela MD, [facility] CPT- 4: 91403 05/13/2017 ([id number]) 87027 EST. P ATIENT, LEVEL III Diagnosis: Allergic contact dermatitis due to plants, except food[ICD10: L23.7] Kacy Varela MD, [facility] CPT-4: 49970 03/21/2017 [id number] EST. PATIENT, LEVEL III Diagnosis: Bitten or stung by nonvenomous insect and other nonvenomous arthropods, initial encounter[ICD10: W57.XXXA] Diagnosis: Cellulitis of left lower limb[ICD10: L03.116] Laura Varela MD, [facility] CPT-4: 55909 03/19/2017 ([id number]) 90973 EST. P ATIENT, LEVEL IV Diagnosis: Type 2 diabetes mellitus without complications[ICD10: E11.9] Diagnosis: Essential (primary) hypertension[ICD10: I10] Diagnosis: Other specified epidermal thickening[ICD10: L85.8] Zoya Varela MD, [facility] CPT-4: 96926 01/14/2017 48001 EST. PATIENT, LEVEL III Diagnosis: Glossodynia[ICD10: K14.6] Kacy Varela MD, [facility] CPT- 4: 31592 09/23/2016 ([id number]) 25937 EST. P ATIENT, LEVEL IV Diagnosis: Encounter for screening mammogram for malignant neoplasm of breast[ICD10: Z12.31] Diagnosis: Encounter for immunization[ICD10: Z23] Zoya Varela MD, [facility] CPT-4: 62401 09/16/2016 ([id number]) 57061 EST. P ATIENT, LEVEL III Diagnosis: Diseases of lips[ICD10: K13.0] Diagnosis: Allergic rhinitis due to pollen[ICD10: J30.1] Kacy Varela MD, [facility] CPT-4: 79271 06/25/2016 ([id number]) 19193 EST. P ATIENT, LEVEL III Diagnosis: Essential (primary) hypertension[ICD10: I10] Kacy Varela MD, [facility] CPT-4: 02699 06/17/2016 55234 EST. PATIENT, LEVEL IV Diagnosis: Other acute sinusitis[ICD10: J01.80] Diagnosis: Acute laryngopharyngitis[ICD10: J06.0] Diagnosis: Other allergic rhinitis[ICD10: J30.89] Laura Varela MD, [facility] CPT-4: 65286 04/03/2016 ([id number]) 99480 EST. P ATIENT, LEVEL IV Diagnosis: Essential (primary) hypertension[ICD10: I10] Diagnosis: Localized edema[ICD10: R60.0] Diagnosis: Polyneuropathy, unspecified[ICD10: G62.9] Zoya Varela MD, [facility] CPT-4: 90174 03/13/2016 ([id number]) 30835 EST. P ATIENT, LEVEL IV Diagnosis: Essential (primary) hypertension[ICD10: I10] Diagnosis: Localized edema[ICD10: R60.0] Diagnosis: Type 2 diabetes mellitus without complications[ICD10: E11.9] Zoya Varela MD, [facility] CPT-4: 29333 01/30/2016 22752 EST. PATIENT, LEVEL IV Diagnosis: Localized edema[ICD10: R60.0] Laura Varela MD, [facility] CPT-4: 94878 12/21/2015 ([id number]) 60650 EST. P ATIENT, LEVEL III Diagnosis: Essential (primary) hypertension[ICD10: I10] Diagnosis: Allergic rhinitis due to pollen[ICD10: J30.1] Diagnosis: Cervicalgia[ICD10: M54.2] Kacy Varela MD, [facility] CPT- 4: 45778 10/09/2015 26370 EST. PATIENT, LEVEL II Diagnosis: Contact dermatitis[ICD9: 692.9] Kacy Varela MD, [facility] CPT- 4: 46239 06/12/2015 ([id number]) 97573 EST. P ATIENT, LEVEL III Diagnosis: ESSENTIAL HYPERTENSION[ICD9: 401.9] Diagnosis: DIABETES TYPE II[ICD9: 250.00] Diagnosis: Anxiety[ICD9: 300.00] Kacy Varela MD, [facility] CPT-4: 49699 06/05/2015 ([id number]) 01371 EST. P ATIENT, LEVEL IV Diagnosis: Anxiety[ICD9: 300.00] Diagnosis: ALLERGIC RHINITIS[ICD9: 477.9] Diagnosis: ESOPHAGEAL REFLUX[ICD9: 530.81] Kacy Varela MD, [facility] CPT- 4: 22498 05/15/2015 ([id number]) 20129 EST. P ATIENT, LEVEL III Diagnosis: ESSENTIAL HYPERTENSION[ICD9: 401.9] Zoya Varela MD, [facility] CPT- 4: 50306 02/06/2015 ([id number]) 39662 EST. P ATIENT, LEVEL IV Diagnosis: ESSENTIAL HYPERTENSION[ICD9: 401.9] Diagnosis: EDEMA[ICD9: 782.3] Diagnosis: DIABETES TYPE II[ICD9: 250.00] Zoya Varela MD, [facility] CPT-4: 88198 01/10/2015 ([id number]) 83204 EST. P ATIENT, LEVEL IV Diagnosis: ESSENTIAL HYPERTENSION[ICD9: 401.9] Diagnosis: DIABETES TYPE II[ICD9: 250.00] Zoya Varela MD, [facility] CPT-4: 86453 07/19/2014 ([id number]) 13396 EST. P ATIENT, LEVEL III Diagnosis: Left ankle pain[ICD9: 719.47] Kacy Varela MD, [facility] CPT- 4: 23722 06/17/2014 ([id number]) 62727 EST. P ATIENT, LEVEL III Diagnosis: ESSENTIAL HYPERTENSION[ICD9: 401.9] Diagnosis: Elevated blood sugar[ICD9: 790.29] Zoya Varela MD, [facility] CPT- 4: 44387 04/19/2014 ([id number]) 35034 EST. P ATIENT, LEVEL IV Diagnosis: ESSENTIAL HYPERTENSION[SNOMED: 54666372] Diagnosis: ESOPHAGEAL REFLUX[ICD9: 530.81] Zoya Varela MD, [facility] CPT-4: 95750 04/11/2014 ([id number]) 78367 EST. P ATIENT, LEVEL IV Diagnosis: ALLERGIC RHINITIS[ICD9: 477.9] Diagnosis: Anxiety[ICD9: 300.00] Diagnosis: Dyspnea[ICD9: 786.09] Diagnosis: ESOPHAGEAL REFLUX[ICD9: 530.81] Kacy Varela MD, [facility] CPT- 4: 03488 03/10/2014 ([id number]) 53299 EST. P ATIENT, LEVEL III Diagnosis: ALLERGIC RHINITIS[ICD9: 477.9] Diagnosis: ESSENTIAL HYPERTENSION[SNOMED: 08607448] Kacy Varela MD, [facility] CPT-4: 93996 02/02/2014 ([id number]) 75026 EST. P ATIENT, LEVEL III Diagnosis: ESSENTIAL HYPERTENSION[SNOMED: 33047804] Diagnosis: Skin irritation[ICD9: 709.9] Zoya Varela MD, [facility] CPT-4: 06766 10/25/2013 ([id number]) 92799 EST. P ATIENT, LEVEL III Diagnosis: HYPERLIPIDEMIA[ICD9: 272.4] Diagnosis: ESSENTIAL HYPERTENSION[SNOMED: 39411344] Diagnosis: EDEMA[ICD9: 782.3] Diagnosis: Encounter for long-term (current) use of other medications[ICD9: V58.69] Zoya Varela MD, [facility] CPT-4: 37484 08/24/2013 ([id number]) 98854 EST. P ATIENT, LEVEL III Diagnosis: ESSENTIAL HYPERTENSION[SNOMED: 75199455] Zoya Varela MD, [facility] CPT-4: 17948 07/26/2013 ([id number]) 32910 EST. P ATIENT, LEVEL III Diagnosis: ESSENTIAL HYPERTENSION[SNOMED: 40990212] Zoya Varela MD, C CPT-4: 34655 06/30/2013 ([id number]) 24268 EST. P ATIENT, LEVEL III Diagnosis: ESSENTIAL HYPERTENSION[SNOMED: 65592764] Zoya Varela MD, C CPT-4: 32481 06/24/2013 ([id number]) 02949 EST. P ATIENT, LEVEL IV Diagnosis: ESSENTIAL HYPERTENSION[SNOMED: 60610720] Diagnosis: Leg pain[ICD9: 729.5] Diagnosis: Leg swelling[ICD9: 729.81] Zoya Varela MD, [facility] CPT-4: 30707 12/01/2012 ([id number]) 46092 EST. P ATIENT, LEVEL III Diagnosis: Shingles[ICD9: 053.9] Zoya Varela MD, [facility] CPT-4: 56333 10/19/2012 ([id number]) 75241 EST. P ATIENT, LEVEL IV Diagnosis: EDEMA[ICD9: 782.3] Diagnosis: ESSENTIAL HYPERTENSION[SNOMED: 28538110] Zoya Varela MD, C CPT-4: 93688 10/07/2012 ([id number]) 09071 EST. P ATIENT, LEVEL IV Diagnosis: ESSENTIAL HYPERTENSION[SNOMED: 31788864] Diagnosis: EDEMA[ICD9: 782.3] Diagnosis: Irritable bowel disease[ICD9: 564.1] Zoya Varela MD, [facility] CPT-4: 80637 2012 ([id number]) 24851 EST. P ATIENT, LEVEL III Diagnosis: ESSENTIAL HYPERTENSION[SNOMED: 07305074] Zoya Varela MD, [facility] CPT-4: 51886 08/18/2012 ([id number]) 60840 EST. P ATIENT, LEVEL III Diagnosis: ESSENTIAL HYPERTENSION[SNOMED: 29112292] Zoya Varela MD, [facility] CPT-4: 69383 08/04/2012 ([id number]) 50181 EST. P ATIENT, LEVEL IV Diagnosis: ESSENTIAL HYPERTENSION[SNOMED: 43284576] Diagnosis: Lumbago[ICD9: 724.2] Diagnosis: HYPERLIPIDEMIA[ICD9: 272.4] Zoya Varela MD, [facility] CPT-4: 86696 07/01/2012 ([id number]) 88074 EST. P ATIENT, LEVEL III Diagnosis: ESSENTIAL HYPERTENSION[SNOMED: 89922306] Zoya Varela MD, C CPT-4: 84728 05/20/2012 ([id number]) 71872 EST. P ATIENT, LEVEL IV Diagnosis: ESSENTIAL HYPERTENSION[SNOMED: 87609733] Diagnosis: Hot flash, menopausal[ICD9: 627.2] Zoya Varela MD, [facility] CPT- 4: 68053 04/20/2012 39915 EST. PATIENT, LEVEL IV Diagnosis: SPASM OF MUSCLE[ICD9: 728.85] Diagnosis: Back pain[ICD9: 724.5] Diagnosis: ESSENTIAL HYPERTENSION[SNOMED: 22197369] Zoya Varela MD, [facility] CPT-4: 48087 03/10/2012 ([id number]) 27287 EST. 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 P ATIENT, LEVEL III Diagnosis: ESSENTIAL HYPERTENSION[SNOMED: 18616934] Zoya Varela MD, C CPT-4: 11481 02/19/2012 60153 EST. PATIENT, LEVEL IV Diagnosis: ESSENTIAL HYPERTENSION[SNOMED: 59818667] Diagnosis: Cough[ICD9: 786.2] Kacy Varela MD, [facility] CPT-4: 52030 01/23/2012 ([id number]) 07175 EST. P ATIENT, LEVEL IV Diagnosis: HYPERLIPIDEMIA[ICD9: 272.4] Diagnosis: ESSENTIAL HYPERTENSION[SNOMED: 84682757] Zoya Varela MD, [facility] CPT-4: 89452 01/02/2012 OFFICE VISIT, NEW - LEVEL 4 Diagnosis: ESSENTIAL HYPERTENSION[SNOMED: 35657889] Diagnosis: HYPERLIPIDEMIA[ICD9: 272.4] Diagnosis: IMPACTED CERUMEN[ICD9: 380.4] Diagnosis: Muscle spasm[ICD9: 728.85] Diagnosis: CHRONIC TENSION HEADACHE[ICD9: 339.12] Diagnosis: Neck pain, chronic[ICD9: 723.1] Diagnosis: Change in skin mole[ICD9: 216.9] Zoya Varela MD, [facility] CPT-4: 32536 12/20/2011 Plan of Care Planned Activity Notes [...] cold sores. 02/16/2019 Appointment: Zoya Varela WPtel: [facility] (15 min) Moderate 02/16/2019 Patient Education: Patient [...] of plan. 01/21/2019 Appointment: Kacy Moses WPtel: [facility]0 [phone] [place] (15 min) Moderate 01/21/2019 Patient Education: Patient Medication Summary Completed 01/21/2019 Appointment: Zoya Varela WPtel: [facility]2 [facility] (15 min) Moderate 12/15/2018 Visit Plan: Hypertension [...] medications. 10/14/2018 Appointment: Zoya Varela WPtel: [phone] [facility] [place] (15 min) Moderate 10/14/2018 Patient Education: [...] metoprolol, will have pt go see her internet marketing manager as we may need to consider stopping the beta ori completely versus potential need for pacemaker. 09/22/2018 Appointment: [phone] (15 min) Moderate 09/22/2018 Patient Education: Patient Medication Summary Completed 09/22/2018 Appointment: [facility]el[phone] (15 min) Moderate 09/09/2018 Visit Plan: [...] she can be seen by Oncology in [place]. 06/08/2018 Appointment: [facility]la [facility]Ptel[phone] [place] (15 min) Moderate 06/08/2018 Patient Education: Patient Medication Summary Completed 06/08/2018 Visit Plan: URI - Pt advised to inc rease fluids, vitamin C. Discussed natural and expected course of this diagnosis and need to alert me if symptoms do not follow expected course, or if any worse. RX sent to patient's pharmacy. 05/04/2018 Appointment: [phone] (30 min) Complex 05/04/2018 Patient Education: Patient [...] lower extremities. 02/04/2018 Appointment: [facility]arela [facility]Ptel[phone] [place] (15 min) Moderate 02/04/2018 Patient [...] Summary Completed 02/03/2018 Appointment: Laura Velasco WPtel: [facility] [place] [address] - Annual Wellness Visit 01/28/2018 Appointment: Zoya Varela WPtel: [facility]5 [facility]66[facility] (15 min) Moderate 01/15/2018 Visit Plan: Hypertension [...] Dr. Madison. 09/17/2017 Appointment: Zoya Varela WPtel: [facility]6 [facility] (15 min) Moderate 09/17/2017 Patient Education: Patient Medication Summary Completed 09/17/2017 Patient Education: Obesity Completed 09/17/2017 Patient Education: Hypertension Completed 09/17/2017 Care Plan: SCREENINGMAMMOGRAPHYDIGITAL LOINC : 15193-7 Pending 09/17/2017 Visit Plan: Poison Sarah -kenalog inj ection today in the office-start prednisone tomorrow pt is to use topical treatments as directed. Pt is cleanse clothing in hot water with soap, and call if symptoms do not improve or if they worsen. 06/23/2017 Appointment: Kacy Moses WPtel: [facility]4 [address] (15 min) Moderate 06/23/2017 Patient Education: Patient [...] liver response to medications. 05/13/2017 Appointment: Zoya aVrela WPtel: [address] [place] [address] (15 min) Moderate 05/13/2017 Patient Education: Patient [...] they worsen. 03/21/2017 Appointment: Kacy Moses WPtel: [address] [place], [place] [phone] (15 min) Moderate 03/21/2017 Patient Education: Patient [...] in pain. 03/19/2017 Appointment: Laura Velasco WPtel: [facility]5 [facility]6[address] (15 min) Moderate 03/19/2017 Patient Education: Patient [...] hearing. 01/22/2017 Appointment: Laura Velasco WPtel: [phone] [facility] [facility] - Annual Wellness Visit 01/22/2017 Appointment: [...] at home. 01/14/2017 Appointment: Zoya Varela WPtel: [facility]5 [facility] (15 min) Moderate 01/14/2017 Patient Education: Patient [...] of plan. 09/23/2016 Appointment: Kacy Moses WPtel: [phone] [facility] (15 min) Moderate 09/23/2016 Patient [...] to medications. 09/16/2016 Appointment: [facility]Ptel[phone] [facility] (15 min) Moderate 09/16/2016 Patient Education: Patient Medication Summary Completed 09/16/2016 Patient Education: Obesity Completed 09/16/2016 Care Plan: SCREENINGMAMMOGRAPHYDIGITAL LOINC : 50965-2 Pending 09/16/2016 Visit Plan: Cracked/painful lips-ba cterial [...] worse. 06/25/2016 Appointment: Kacy Moses WPtel: [phone] [phone] (15 min) Moderate 06/25/2016 Patient Education: [...] spray. 04/03/2016 Appointment: Kacy Moses WPtel: [phone] [phone] (30 min) Complex 04/03/2016 Patient Education: [...] Completed 03/13/2016 Appointment: [facility]la [facility]Ptel[phone] (15 min) Moderate 02/28/2016 Appointment: [facility]arela [facility]Ptel[phone] [place] (15 min) Moderate 02/01/2016 Visit Plan: [...] for treatment. 01/30/2016 Appointment: Zoya Varela WPtel: [facility] (15 min) Moderate 01/30/2016 Patient Education: [...] at home. 02/06/2015 Appointment: Zoya Varela WPtel: [phone] [facility] Follow up 02/06/2015 Patient Education: Patient Medication [...] peripheral edema. 01/10/2015 Appointment: Zoya Varela WPtel: [phone] [facility] Sick 01/10/2015 Patient Education: Patient Medication Summary [...] controlled. 07/19/2014 Appointment: [facility]arela [facility]Ptel[phone] [facility] Follow up 07/19/2014 Patient Education: Patient Medication Summary Completed 07/19/2014 Patient Education: Hypertension Completed 07/19/2014 Care Plan: SCREENINGMAMMOGRAPHYDIGITAL LOINC : 46572-5 Ordered 07/19/2014 Visit Plan: Left ankle pain-sprain- [...] at home. 04/19/2014 Appointment: [facility]el[phone] Diabetic education 04/19/2014 Patient Education: Patient Medication [...] to medications. 04/11/2014 Appointment: Z[facility] Varela [facility]Ptel[phone] [facility] Follow up 04/11/2014 Patient Education: Patient [...] spray in the nasal steroid allergy spray. Qgxgbny-ogpyzkodtcqu-zkwqtyp xanax at bedtime Esophageal Reflux - the patient has been counseled against excessive intake of caffiene, spicy foods, peppermint, and cinnamon - all of which can exacerbate esophageal reflux. The patient is to take medications as prescribed and call the office if the symptoms are not improving. 03/10/2014 Appointment: Zoya Varela WPtel: [facility] Other 03/10/2014 Patient Education: Patient Medication [...] spray. 02/02/2014 Appointment: [facility]el[phone] Other 02/02/2014 Patient Education: Patient Medication [...] the site. 10/25/2013 Appointment: Z[facility]arela WPtel[phone] [facility] Follow up 10/25/2013 Patient Education: Patient [...] BEDTIME 08/24/2013 Appointment: [facility]arela [facility]Ptel: [phone] [facility] Follow up 08/24/2013 Patient Education: Patient [...] concerns. 07/26/2013 Appointment: [facility]la [facility]Ptel[phone] Follow up 07/26/2013 Patient Education: Patient [...] NOT IMPROVE. 06/30/2013 Appointment: Zoya Varela WPtel: [facility]5 [facility] Other 06/30/2013 Patient Education: Patient Medication Summary [...] acute concerns. 06/24/2013 Appointment: Kacy Moses WPtel: [facility]5 [phone] Follow up 06/24/2013 Patient Education: Patient Medication Summary Completed 06/24/2013 Patient Education: Hypertension Completed 06/24/2013 Appointment: Zoya Varela WPtel: [address] [place], [place] [phone] Other 03/23/2013 Visit Plan: Hypotension - pt is on chronic antihypertensive medication - the medication has been adjusted down to attempt to alleviate the low blood pressures. Leg pain - Leg swelling - pt to have ultrasound on her right lower leg due to post-operative swelling and pain. 12/01/2012 Appointment: Zoya Varela WPtel: [facility] [place] Follow up 12/01/2012 Patient Education: Patient Medication Summary Completed 12/01/2012 Patient Education: Hypertension Completed 12/01/2012 Appointment: Zoya Varela WPtel: [address] [place], [place] [phone] [place] Follow up 10/20/2012 Visit Plan: Shingles [...] considered contagious. 10/19/2012 Appointment: Zoya Varela WPtel: [address] [place], [place] [phone] Other 10/19/2012 Patient Education: Patient Medication Summary [...] peripheral edema. 10/07/2012 Appointment: Kacy Moses WPtel: [address] [place], [place] [id number] [place] [address] Other 10/07/2012 Patient Education: Hypertension Completed 10/07/2012 [...] peripheral edema. 2012 Appointment: Zoya Varela WPtel: [address] [place] [address] Other 2012 Patient Education: Patient Medication Summary [...] THE EVENING. 08/18/2012 Appointment: [facility]la [facility]Ptel: [phone] [facility] Follow up 08/18/2012 Patient Education: Patient [...] knees. 08/04/2012 Appointment: [facility]arela [facility]Ptel: [phone] [facility] Follow up 08/04/2012 Patient Education: Patient Medication [...] twice daily. 07/01/2012 Appointment: Zoya Varela WPtel: [facility]5 [facility] Other 07/01/2012 Patient Education: Patient Medication Summary [...] two weeks 05/20/2012 Appointment: Zoya Varela WPtel: [facility]5 [facility] Follow up 05/20/2012 Patient Education: Patient Medication Summary Completed 05/20/2012 Patient Education: High Blood Pressure: Essential Hypertension Completed 05/20/2012 Appointment: Zoya Varlea WPtel: [facility]3 [facility] Other 05/11/2012 Visit Plan: Hypertension - uncontro [...] dosing. 04/20/2012 Appointment: Zoya Varela WPtel: [phone] [facility] Follow up 04/20/2012 Patient Education: Patient Medication [...] weeks. 03/10/2012 Appointment: Zoya Varela WPtel: [phone] [facility] Other 03/10/2012 Patient Education: Patient Medication Summary [...] codeine. 02/25/2012 Appointment: Zoya Varela WPtel: [phone] [facility] Other 02/25/2012 Patient Education: Patient Medication Summary [...] office. 02/19/2012 Appointment: Zoya Varela WPtel: [phone] Other 02/19/2012 Patient Education: Patient Medication [...] office 01/23/2012 Appointment: Kacy Moses WPtel: [phone] [phone] Other 01/23/2012 Patient Education: Patient Medication [...] TWICE DAILY. 01/02/2012 Appointment: Zoya Varela WPtel: [address] [place] [address] Other 01/02/2012 Patient Education: Patient Medication Summary [...] 2 wks. 12/20/2011 Appointment: Zoya Varela WPtel: [address] [place] [address] New Patient 12/20/2011 Patient Education: Patient Medication Summary Completed 12/20/2011 Patient Education: High Blood Pressure: Essential Hypertension Completed 12/20/2011 Instructions Comment . Hypertension - wel l controlled - [...] to call if symptoms are not improving. BENICAR 20MG DAILY SAMPLES GIVEN. Hypertension - [...] is to call for acute concerns. . Blood pressure hav ing a lot of inconsistent readings.. I have instructed Natali to take her medications as follows: Toprol xl 2 pills in the morning Lotrel - 1 pill at noon Toprol xl 1 pill at bedtime Bring by blood pressure and heart rate readings in two weeks . Hypertension - wel l controlled - [...] change in blood pressure readings at home. bactroban ointment t o right leg kenalog [...] treatments per Dr. Madison. . Hypertension - wel l controlled - [...] to further attempt to reduce peripheral edema. use the voltaren gel on your right [...] any worse. RX sent to patient's pharmacy. decrease the metopro lol to one pill [...] metoprolol, will have pt go see her internet marketing manager as we may need to consider stopping the beta ori completely versus potential need for pacemaker. compression socks - look at [facility] section - sports compression socks or basketball [...] IN MORNING TOPROL 2 PILLS AT BEDTIME Biotene OTC Decrease dose of Lyrica to [...] not improve or if they worsen. . Low back pain- the patient was [...] blood pressure readings in a few weeks. INCREASE YOUR METOPR OLOL TARTATE 100MG TO [...] if the symptoms are not improving. . Left ankle pain-sp rain-recommend rest ice [...] antibiotic. Patient verbalized understanding of plan. . Cracked/painful li ps-bacterial culture today in [...] be able to remove in 2 wks. PT TO CUT AMLODIPINE TO 1/2 OF [...] exposure. No change in current medications. . Elevated blood sug ars-diabetes and [...] assure normal liver response to medications. . Shingles - Herpes Zoster - acute [...] she can be seen by Oncology in [place]. . Tick - tick with con ead removed - will start abx - The patient was instructed in appropriate wound care. The patient was instructed to use the antibiotic ointment as per RX. The patient is to call for any change in symptoms, increase in size of the lesion, increase in pain. . URI - Pt advised t o increase fluids, vitamin C. Discussed natural and expected course of this diagnosis and need to alert me if symptoms do not follow expected course, or if any worse. RX sent to patient's pharmacy. . Diabetes Mellitus - controlled - per [...] spray in the nasal steroid allergy spray. Dmeilmj-hnrykasexxsg-hseckvd xanax at bedtime Esophageal Reflux - the patient has been counseled against excessive intake of caffiene, spicy foods, peppermint, and cinnamon - all of which can exacerbate esophageal reflux. The patient is to take medications as prescribed and call the office if the symptoms are not improving.
[2020-05-26 02:48] LABS: BASOPHILS % (AUTO) 0 % (0-10); EOSINOPHILS # (AUTO) 0.1 10^3/uL (0.0-0.3); EOSINOPHILS % (AUTO) 3 % (0-10); HEMATOCRIT 41 % (35-52); HEMOGLOBIN 13.6 G/DL (11.5-16.0); LYMPHOCYTES # (AUTO) 1.5 X 10^3 (1.0-4.0); LYMPHOCYTES % (AUTO) 27 % (12-44); MEAN CORPUSCULAR HEMOGLOBIN 30 PG (25-34); MEAN CORPUSCULAR HGB CONC 33 G/DL (32-36); MEAN CORPUSCULAR VOLUME 90 FL (80-99); MEAN PLATELET VOLUME 10.2 FL (7.4-10.4); MONOCYTES # (AUTO) 0.5 X 10^3 (0.0-1.0); MONOCYTES % (AUTO) 9 % (0-12); NEUTROPHILS # (AUTO) 3.5 X 10^3 (1.8-7.8); NEUTROPHILS % (AUTO) 61 % (42-75); PLATELET COUNT 244 10^3/uL (130-400); RED CELL DISTRIBUTION WIDTH 12.9 % (10.0-14.5); WHITE BLOOD COUNT 5.7 10^3/uL (4.3-11.0)
[2020-05-26] MEDS ORDERED: NS IV 1000 ML 1,000 ML IV ONE (02:48)
[2020-05-26 02:49] LABS: BACTERIA,URINE NEGATIVE /HPF; RBC,URINE 50-100 /HPF; SQUAMOUS EPITHELIAL CELL,UR 0-2 /HPF; WBC,URINE 0-2 /HPF
--- OUTSIDE RECORDS SUMMARY | 2020-05-26 02:49 | XMS REPORT | CCD ---
Author Author Natali Varela Organization [facility] Address [address] [place] [address] Phone Care Team Providers Care Offensive Coordinator Name Role Phone PP Unavailable CCM Unavailable Summary Purpose Interface Exchange Insurance Providers Payer name Policy type / Coverage type Covered alliance party ID Effective Begin Date Effective End Date WPS Medicare Part B Medicare Part B [id number] Unknown [employer] Medicare Part B [id number] Unknown Family history Mother Diagnosis Age At Onset Liver Failure Unknown Diabetes mellitus Type 2 Unknown Hyperlipidemia Unknown Hypertension Unknown Cancer Unknown Arthritis Unknown Father Diagnosis Age At Onset Liver Failure Unknown Cancer Unknown Social History Social History Element Codes Description Effective Dates Marital status Unknown M arried 12/12/2011 Number of children Unknown 3 12/12/[address]: 0574174 Former smoker quit in 199212/12/2011 Allergies, Adverse [...] Date Stop Date Sta tus Fill Instructions amlodipine 5 mg tablet RxNorm: 289849 TAKE ONE TABLET BY MOUTH DAILY 03/26/2019 12/20/2019 Ac tive atorvastatin 20 mg t ablet RxNorm: 811387 TAKE ONE TABLET BY MO [facility] DAILY 03/26/2019 09/21/2019 Ac tive metoprolol tartrate 100 mg tablet RxNorm: 083173 1.5 Tablet(s) BID 02/16/2019 04/10/2020 Active doxazosin 4 mg tablet RxNorm: 488171 1 Tablet(s) UD 1.5 tab in AM and 1 tab a t hs 02/16/2019 09/13/2019 Ac tive acyclovir 800 mg tablet RxNorm: 003002 1 Tablet(s) PO TID take for cold sore ou tbreaks 02/16/2019 04/26/2019 Active Xanax 0.25 mg tablet RxNorm: 716939 1/2-1 Tablet(s) PO QDAY PRN 02/03/2019 05/03/2019 Active cyclobenzaprine 10 m g tablet RxNorm: 485493 TAKE ONE TABLET BY MO [facility] EVERY 8 HOURS NEEDED 01/27/2019 03/07/2019 Inactive doxazosin 4 mg tablet RxNorm: 552698 Tablet(s) TAKE ONE TABLET BY MOUTH TWO T IMES A DAY 01/21/2019 02/15/2019 Inactive doxazosin 4 mg tablet RxNorm: 211206 Tablet(s) TAKE ONE AND ONE-HALF (1 & 1/2 ) TABLET BY MOUTH BY MOUTH TWO TIMES A DAY 11/12/2018 01/20/2019 Inactive cyclobenzaprine 10 m g tablet RxNorm: 969286 TAKE ONE TABLET BY MO [facility] EVERY 8 HOURS NEEDED 11/12/2018 12/01/2018 Inactive tramadol 50 mg tablet RxNorm: 856552 1-2 Tablet(s) PO Q8 as needed 10/02/2018 11/30/2018 In active metoprolol tartrate 100 mg tablet RxNorm: 291328 1 Tablet(s) BID 09/22/2018 02/15/2019 Inactive metoprolol tartrate 100 mg tablet RxNorm: 479027 TAKE ONE AND ONE-HALF (1 1/2) TABLETS BY MOUTH EVERY MORNING AND TAKE TWO TABLETS BY MOUTH EVERY EVENING 09/21/2018 09/21/2018 In active Xanax 0.25 mg tablet RxNorm: 532147 1/2-1 Tablet(s) PO QDAY PRN 08/19/2018 11/15/2018 Inactive cyclobenzaprine 10 m g tablet RxNorm: 460089 TAKE ONE TABLET BY MO UTH EVERY 8 HOURS NEEDED 07/01/2018 08/09/2018 Inactive atorvastatin 20 mg t ablet RxNorm: 541064 TAKE ONE TABLET BY MO UTH DAILY 06/29/2018 12/25/2018 In active atorvastatin 20 mg t ablet RxNorm: 123864 TAKE ONE TABLET BY MO UTH DAILY 06/29/2018 06/28/2018 In active pilocarpine 5 mg tablet RxNorm: 1487209 1 Tablet(s) PO BID 06/09/2018 06/08/2018 Inactive pilocarpine 5 mg tablet RxNorm: 8368105 1 Tablet(s) PO BID for dry mouth 06/09/2018 09/21/2018 In active Evoxac 30 mg capsule RxNorm: 223061 1 Capsule(s) PO BID as needed dry mouth 06/08/2018 06/08/2018 In active may substitute generic cyclobenzaprine 10 m g tablet RxNorm: 042905 TAKE ONE TABLET BY MO UTH EVERY 8 HOURS NEEDED 05/14/2018 06/30/2018 Inactive amoxicillin 500 mg c apsule RxNorm: 244031 1 Capsule(s) PO BID 05/04/2018 05/13/2018 Inactive amoxicillin 500 mg c apsule RxNorm: 212356 1 Capsule(s) PO BID 05/04/2018 05/03/2018 Inactive tramadol 50 mg tablet RxNorm: 667237 1-2 Tablet(s) PO Q8 as needed 04/24/2018 06/21/2018 In active Kenalog 40 mg/mL sylvia pension for injection RxNorm: 8869107 Milliliter(s) Inj 04/24/2018 04/24/2018 In active amlodipine 5 mg tablet RxNorm: 070968 Tablet(s) TAKE ONE TABLET BY MOUTH DAILY 04/02/2018 03/25/2019 In active Xanax 0.25 mg tablet RxNorm: 633590 1/2-1 Tablet(s) PO QDAY PRN 04/02/2018 10/13/2018 Inactive metoprolol tartrate 100 mg tablet RxNorm: 841102 TAKE ONE AND ONE-HALF (1 1/2) TABLETS BY MOUTH EVERY MORNING AND TAKE TWO TABLETS BY MOUTH EVERY EVENING 02/25/2018 09/20/2018 In active Keflex 500 mg capsule RxNorm: 113697 1 Capsule(s) PO TID 02/06/2018 02/15/2018 Inactive Keflex 500 mg capsule RxNorm: 062976 1 Capsule(s) PO TID 02/06/2018 02/05/2018 Inactive Zithromax Z-Kush 250 mg tablet RxNorm: 826095 1 Tablet(s) PO UD 02/02/2018 02/06/2018 Inactive 2 tabs on day 1 then 1 tab daily on days 2-5 doxazosin 4 mg tablet RxNorm: 707903 TAKE ONE AND ONE-HALF (1 & 1/2) TABLET B Y MOUTH BY MOUTH TWO TIMES A DAY 01/16/2018 11/11/2018 Inactive atorvastatin 20 mg t ablet RxNorm: 028668 TAKE ONE TABLET BY MO UTH DAILY 12/31/2017 06/28/2018 In active furosemide 20 mg tablet RxNorm: 501736 TAKE ONE TABLET BY MOUTH DAILY NEEDED FOR EDEMA 12/26/2017 06/23/2018 Inactive potassium chloride E R 10 mEq tablet,extended release RxNorm: 602101 TAKE ONE TABLET BY MOUTH NEEDED WITH LASIX 12/26/2017 06/23/2018 Inactive Xanax 0.25 mg tablet RxNorm: 321342 1/2-1 Tablet(s) PO QDAY PRN 11/27/2017 08/18/2018 Inactive cyclobenzaprine 10 m g tablet RxNorm: 788414 TAKE ONE TABLET BY MO UTH EVERY 8 HOURS NEEDED 11/21/2017 02/08/2018 Inactive tramadol 50 mg tablet RxNorm: 965962 1-2 Tablet(s) PO Q8 as needed 10/28/2017 01/23/2018 In active metoprolol tartrate 100 mg tablet RxNorm: 626205 TAKE ONE AND ONE-HALF (1 1/2) TABLETS BY MOUTH EVERY MORNING AND TAKE TWO TABLETS BY MOUTH EVERY EVENING 10/28/2017 02/24/2018 In active cyclobenzaprine 10 m g tablet RxNorm: 948578 TAKE ONE TABLET BY MO UTH EVERY 8 HOURS NEEDED 08/27/2017 10/25/2017 Inactive Xanax 0.25 mg tablet RxNorm: 911617 1/2-1 Tablet(s) PO QDAY PRN 08/04/2017 04/01/2018 Inactive cyclobenzaprine 10 m g tablet RxNorm: 143354 TAKE ONE TABLET BY MO UTH EVERY 8 HOURS NEEDED 07/28/2017 08/16/2017 Inactive metoprolol tartrate 100 mg tablet RxNorm: 345955 TAKE ONE AND ONE-HALF (1 & 1/2) TABLET BY MOUTH EVERY MORNING AND TAKE TWO TABLETS BY MOUTH EVERY EVENING 07/28/2017 10/25/2017 In active cyclobenzaprine 10 m g tablet RxNorm: 467898 TAKE ONE TABLET BY MO UTH EVERY 8 HOURS NEEDED 06/30/2017 07/19/2017 Inactive prednisone 10 mg tab lets in a dose pack RxNorm: 114987 1 Tablet(s) PO UD 06/23/2017 06/28/2017 In active 6-5-4-3-2-1 mupirocin 2 % topica l ointment RxNorm: 491077 1 Application TOP BID 06/23/2017 07/02/2017 Inactive Kenalog 40 mg/mL sylvia pension for injection RxNorm: 2631192 Milliliter(s) Inj 06/23/2017 06/23/2017 In active cyclobenzaprine 10 m g tablet RxNorm: 328389 TAKE ONE TABLET BY MO UTH EVERY 8 HOURS NEEDED 06/09/2017 06/28/2017 Inactive meclizine 25 mg tablet RxNorm: 508529 1 Tablet(s) PO Q6 PRN as needed 1/2 - 1 pill every 6 hours as needed for vertigo 06/03/2017 07/14/2017 Inactive atorvastatin 20 mg t ablet RxNorm: 039755 TAKE ONE TABLET BY MO UTH DAILY 05/30/2017 11/25/2017 In active amlodipine 5 mg tablet RxNorm: 955261 TAKE ONE TABLET BY MOUTH DAILY 05/15/2017 04/01/2018 In active cyclobenzaprine 10 m g tablet RxNorm: 901246 TAKE ONE TABLET BY MO UTH EVERY 8 HOURS NEEDED 05/07/2017 05/26/2017 Inactive tramadol 50 mg tablet RxNorm: 785709 1-2 Tablet(s) PO Q8 as needed 04/07/2017 07/04/2017 In active cyclobenzaprine 10 m g tablet RxNorm: 791426 TAKE ONE TABLET BY MO UTH EVERY 8 HOURS NEEDED 04/07/2017 04/26/2017 Inactive Xanax 0.25 mg tablet RxNorm: 796119 1/2-1 Tablet(s) PO QDAY PRN 04/04/2017 06/02/2017 Inactive metoprolol tartrate 100 mg tablet RxNorm: 039764 TAKE ONE AND ONE-HALF (1 & 1/2) TABLET BY MOUTH EVERY MORNING AND TAKE TWO TABLETS BY MOUTH EVERY EVENING 03/28/2017 07/25/2017 In active prednisone 10 mg tab lets in a dose pack RxNorm: 755883 1 Tablet(s) PO UD 03/21/2017 03/26/2017 In active 6-5-4-3-2-1 Kenalog 40 mg/mL sylvia pension for injection RxNorm: 6625351 2 Milliliter(s) Inj 03/21/2017 03/21/2017 In active doxycycline hyclate 100 mg capsule RxNorm: 6973720 1 Capsule(s) PO BID 03/19/2017 03/28/2017 In active cyclobenzaprine 10 m g tablet RxNorm: 920017 TAKE ONE TABLET BY MO UTH EVERY 8 HOURS NEEDED 02/25/2017 03/16/2017 Inactive triamcinolone aceton pineda 0.1 % topical ointment RxNorm: 9826588 1 Application TOP TI D 02/21/2017 02/20/2017 Inactive triamcinolone aceton pineda 0.1 % topical ointment RxNorm: 0937938 1 Application TOP TI D 02/21/2017 03/02/2017 Inactive doxazosin 4 mg tablet RxNorm: 548266 TAKE ONE AND ONE-HALF (1 & 1/2) TABLET B Y MOUTH BY MOUTH TWO TIMES A DAY 02/14/2017 01/09/2018 Inactive cyclobenzaprine 10 m g tablet RxNorm: 741432 TAKE ONE TABLET BY MO UTH EVERY 8 HOURS NEEDED 01/27/2017 02/15/2017 Inactive ammonium lactate 12 % topical cream RxNorm: 752771 1 Application TOP BID 01/14/2017 02/12/2017 In active dispense one bottle of the cream potassium chloride E R 10 mEq tablet,extended release RxNorm: 076196 1 Tablet(s) PO PRN as needed with lasix 11/13/2016 12/25/2017 Inactive prn swelling furosemide 20 mg tablet RxNorm: 527433 1 Tablet(s) PO daily as needed edema 11/13/2016 01/11/2017 In active metoprolol tartrate 100 mg tablet RxNorm: 265045 TAKE ONE AND ONE-HALF (1 & 1/2) TABLET BY MOUTH EVERY MORNING AND TAKE TWO TABLETS BY MOUTH EVERY EVENING 11/01/2016 03/27/2017 In active atorvastatin 20 mg t ablet RxNorm: 837482 TAKE ONE TABLET BY MO UTH DAILY 10/31/2016 04/28/2017 In active cyclobenzaprine 10 m g tablet RxNorm: 892599 TAKE ONE TABLET BY MO UTH EVERY 8 HOURS NEEDED 10/25/2016 12/03/2016 Inactive Lyrica 25 mg capsule RxNorm: 534544 1 Tablet(s) PO BID 09/23/2016 01/13/2017 Inactive Lyrica 50 mg capsule RxNorm: 814568 1 Capsule(s) PO BID 09/16/2016 01/13/2017 Inactive amlodipine 5 mg tablet RxNorm: 995163 Tablet(s) TAKE ONE TABLET BY MOUTH DAILY 08/28/2016 05/14/2017 In active cyclobenzaprine 10 m g tablet RxNorm: 591273 TAKE ONE TABLET BY MO UTH EVERY 8 HOURS NEEDED 08/05/2016 09/13/2016 Inactive Xanax 0.25 mg tablet RxNorm: 732429 1/2-1 Tablet(s) PO QDAY PRN 07/16/2016 04/03/2017 Inactive amlodipine 5 mg tablet RxNorm: 382244 TAKE ONE TABLET BY MOUTH DAILY 06/28/2016 08/26/2016 In active metoprolol tartrate 100 mg tablet RxNorm: 610023 Tablet(s) TAKE ONE AN D ONE-HALF (1 & 1/2) TABLET BY MOUTH EVERY MORNING AND TAKE TWO TABLETS BY MOUTH EVERY EVENING 05/02/2016 05/02/2016 Inactive metoprolol tartrate 100 mg tablet RxNorm: 573774 Tablet(s) PO TAKE ONE AND ONE-HALF (1 & 1/2) TABLET BY MOUTH EVERY MORNING AND TAKE TWO TABLETS BY MOUTH EVERY EVENING 05/02/2016 05/01/2016 Inactive metoprolol tartrate 100 mg tablet RxNorm: 894023 Tablet(s) PO TAKE ONE AND ONE-HALF (1 & 1/2) TABLET BY MOUTH EVERY MORNING AND TAKE TWO TABLETS BY MOUTH EVERY EVENING 05/02/2016 10/28/2016 Inactive atorvastatin 20 mg t ablet RxNorm: 620275 TAKE ONE TABLET BY MO UTH DAILY 04/25/2016 10/21/2016 In active tramadol 50 mg tablet RxNorm: 720276 1-2 Tablet(s) PO Q8 as needed 04/25/2016 10/27/2017 In active cyclobenzaprine 10 m g tablet RxNorm: 787588 Tablet(s) PO TAKE ONE TABLET BY MOUTH EVERY 8 HOURS NEEDED 04/18/2016 06/16/2016 Inactive Kenalog 40 mg/mL sylvia pension for injection RxNorm: 6960848 1 Milliliter(s) Inj 04/04/2016 04/04/2016 In active Phenergan with Codei ne Syrup RxNorm: PO 04/03/2016 02/15/2019 Inactive Zithromax Z-Kush 250 mg tablet RxNorm: 294270 1 Tablet(s) PO UD 04/03/2016 04/07/2016 Inactive 2 tabs on day 1 then 1 tab daily on days 2-5 amlodipine 5 mg tablet RxNorm: 456484 TAKE ONE TABLET BY MOUTH DAILY 03/27/2016 06/24/2016 In active Flexeril 10 mg tablet RxNorm: 711322 TAKE ONE TABLET BY MOUTH EVERY 8 HOURS A S NEEDED 03/14/2016 04/02/2016 Inactive Vitamin B-12 ER 2,00 0 mcg tablet,extended release RxNorm: 276689 1 Tablet(s) PO daily 03/13/2016 No Stop Date Active Vitamin B-12 ER 2,00 0 mcg tablet,extended release RxNorm: 876160 1 Tablet(s) PO daily 03/13/2016 No Stop Date Active gabapentin 100 mg ca psule RxNorm: 212382 1 Capsule(s) PO BID 03/13/2016 09/15/2016 Inactive Flexeril 10 mg tablet RxNorm: 729277 Tablet(s) TAKE ONE TABLET BY MOUTH EVERY 8 HOURS NEEDED 02/08/2016 02/27/2016 Inactive Xanax 0.25 mg tablet RxNorm: 161708 1/2-1 Tablet(s) PO QDAY PRN 02/08/2016 07/15/2016 Inactive amlodipine 5 mg tablet RxNorm: 714504 1 Tablet(s) PO daily 02/06/2016 03/26/2016 Inactive furosemide 20 mg tablet RxNorm: 527081 1 Tablet(s) PO daily 01/30/2016 06/16/2016 Inactive amlodipine 10 mg tablet RxNorm: 848773 1/2 Tablet(s) PO daily 01/30/2016 02/05/2016 Inactive doxazosin 4 mg tablet RxNorm: 571914 1.5 Tablet(s) PO BID 01/30/2016 01/23/2017 Inactive Flexeril 10 mg tablet RxNorm: 332669 TAKE ONE TABLET BY MOUTH EVERY 8 HOURS A S NEEDED 01/10/2016 01/29/2016 Inactive potassium chloride E R 10 mEq tablet,extended release RxNorm: 808152 1 Tablet(s) PO PRN as needed with lasix 12/25/2015 06/16/2016 Inactive prn swelling amlodipine 10 mg tablet RxNorm: 713699 TAKE ONE TABLET BY MOUTH EVERY MORNING 12/25/2015 12/24/2015 In active amlodipine 10 mg tablet RxNorm: 273062 TAKE ONE TABLET BY MOUTH EVERY MORNING 12/25/2015 01/29/2016 In active furosemide 20 mg tablet RxNorm: 678428 1/2 Tablet(s) PO daily as needed edema 12/21/2015 01/19/2016 In active pt needs to take 10meq potassium on days she takes the lasix metoprolol tartrate 100 mg tablet RxNorm: 033031 TAKE ONE AND ONE-HALF (1 & 1/2) TABLET BY MOUTH EVERY MORNING AND TAKE TWO TABLETS BY MOUTH EVERY EVENING 11/08/2015 12/07/2015 In active Flonase Allergy Reli ef 50 mcg/actuation nasal spray,suspension RxNorm: [place] as needed PLACE 2 SPRAYS IN EACH NOSTRIL DAILY 10/09/2015 02/05/2016 Inactive Flexeril 10 mg tablet RxNorm: 528338 1 Tablet(s) PO TID PRN TAKE ONE TABLET B Y MOUTH EVERY 8 HOURS NEEDED 10/09/2015 12/07/2015 Inactive alprazolam 0.5 mg ta blet RxNorm: 808751 TAKE ONE TABLET BY [facility] AT BEDTIME NEEDED FOR ANXIETY 08/29/2015 11/23/2015 Inactive Flonase Allergy Reli ef 50 mcg/actuation nasal spray,suspension RxNorm: PLACE 2 SPRAYS IN EACH NOSTRIL DAILY 07/06/2015 10/08/2015 Inactive Kenalog 40 mg/mL sylvia pension for injection RxNorm: 6037702 Milliliter(s) Inj 06/12/2015 06/12/2015 In active prednisone 10 mg tab lets in a dose pack RxNorm: 658993 1 Tablet(s) PO UD 06/12/2015 06/17/2015 In active 6-5-4-3-2-1 acyclovir 800 mg tablet RxNorm: 171154 1 Tablet(s) PO TID 06/12/2015 06/21/2015 Inactive Xanax 0.25 mg tablet RxNorm: 238074 1/2-1 Tablet(s) PO QDAY PRN 05/15/2015 02/07/2016 Inactive Flonase Allergy Reli ef 50 mcg/actuation nasal spray,suspension RxNorm: 2 [place]um NASAL daily 05/15/2015 06/13/2015 Inactive Kenalog 40 mg/mL sylvia pension for injection RxNorm: 4700041 Milliliter(s) Inj 05/15/2015 05/15/2015 In active metoprolol tartrate 100 mg tablet RxNorm: 329584 TAKE ONE AND ONE-HALF (1 & 1/2) TABLET BY MOUTH EVERY MORNING AND TAKE TWO TABLETS BY MOUTH EVERY EVENING 05/07/2015 06/05/2015 In active metoprolol tartrate 100 mg tablet RxNorm: 147190 TAKE ONE AND ONE-HALF (1 & 1/2) TABLET BY MOUTH EVERY MORNING AND TAKE TWO TABLETS BY MOUTH EVERY EVENING 04/05/2015 05/04/2015 In active amlodipine 10 mg tablet RxNorm: 665689 TAKE ONE TABLET BY MOUTH EVERY MORNING 03/10/2015 12/04/2015 In active alprazolam 0.5 mg ta blet RxNorm: 337639 TAKE ONE TABLET BY MO UTH EVERY NIGHT AT BEDTIME NEEDED FOR ANXIETY 02/23/2015 03/24/2015 Inactive (Response to an electronic controlled substance refill request - RxReferenceNumber: [id number]) alprazolam 0.5 mg ta blet RxNorm: 633931 1 Tablet(s) PO QHS as needed anxiety 02/23/2015 08/29/2015 In active (Response to an electronic controlled salas bstance refill request - RxReferenceNumber: [id number]) doxazosin 4 mg tablet RxNorm: 438448 TAKE ONE TABLET BY MOUTH TWICE A DAY 02/13/2015 01/29/2016 In active atorvastatin 20 mg t ablet RxNorm: 637216 TAKE ONE TABLET BY MO UTH EVERY DAY 01/19/2015 07/17/2015 In active atorvastatin 20 mg t ablet RxNorm: 947485 Tablet(s) TAKE ONE TA BLET BY MOUTH EVERY DAY 01/19/2015 01/18/2015 Inactive [SAVINGS FOR NON-COVERED DRUGS -- BIN:00 3585, PCN: ASPROD1, Group: [id number], ID# [id number], Questions: . THIS IS NOT INSURANCE.] Maxzide-25mg 37.5 mg -25 mg tablet RxNorm: 09770 1 Tablet(s) PO daily 01/10/2015 10/08/2015 Inactive [SAVINGS FOR NON-COVERED DRUGS -- BIN:00 3585, PCN: ASPROD1, Group: XXXXX, ID# [id number], Questions: . THIS IS NOT INSURANCE.] metoprolol tartrate 100 mg tablet RxNorm: 609404 TAKE ONE AND ONE-HALF (1 & 1/2) TABLET BY MOUTH EVERY MORNING AND TAKE TWO TABLETS BY MOUTH EVERY EVENING 12/05/2014 01/03/2015 In active Flexeril 10 mg tablet RxNorm: 138648 TAKE ONE TABLET BY MOUTH EVERY 8 HOURS A S NEEDED 10/31/2014 06/27/2015 Inactive alprazolam 0.5 mg ta blet RxNorm: 035430 1 Tablet(s) PO QHS TA KE ONE TABLET BY MOUTH EVERY NIGHT AT BEDTIME AND NEEDED FOR PANIC ATTACKS 10/21/2014 10/23/2014 Inactive (Appended: Controlled substance eRx refi ll - RxReferenceNumber: [id number]) alprazolam 0.5 mg ta blet RxNorm: 844299 TAKE ONE TABLET BY MO UTH EVERY NIGHT AT BEDTIME NEEDED FOR ANXIETY 10/20/2014 11/18/2014 Inactive (Response to an electronic controlled substance refill request - RxReferenceNumber: [id number]) amlodipine 10 mg tablet RxNorm: 737334 1 Tablet(s) PO QAM 09/09/2014 03/07/2015 Inactive now taking full tab [SAVINGS FOR UNINSURED PATIENTS -- BIN:608691, PCN: [id number], Group: [id number], ID# [id number], Process claim through [employer], for questions: . THIS IS NOT INSURANCE.] metoprolol tartrate 100 mg tablet RxNorm: 997689 TAKE ONE AND ONE-HALF (1 & 1/2) TABLET BY MOUTH EVERY MORNING AND TAKE TWO TABLETS BY MOUTH EVERY EVENING 09/03/2014 10/02/2014 In active alprazolam 0.5 mg ta blet RxNorm: 831889 TAKE ONE TABLET BY MO UTH EVERY NIGHT AT BEDTIME AND NEEDED FOR PANIC ATTACKS 08/29/2014 09/12/2014 Inactive (Response to an electronic controlled substance refill request - RxReferenceNumber: [id number]) Zithromax Z-Kush 250 mg tablet RxNorm: 491877 1 Tablet(s) PO UD 07/26/2014 07/25/2014 Inactive 2 tabs on day 1 then 1 tab daily on days 2-5 Zithromax Z-Kush 250 mg tablet RxNorm: 683529 1 Tablet(s) PO UD 07/26/2014 07/30/2014 Inactive 2 tabs on day 1 then 1 tab daily on days 2-5 alprazolam 0.5 mg ta blet RxNorm: 553981 Tablet(s) PO TAKE ONE TABLET BY MOUTH EVERY NIGHT AT BEDTIME AND NEEDED FOR PANIC ATTACKS 07/08/2014 08/30/2014 Inactive (Appended: Controlled substance eRx refill - RxReferenceNumber: [id number]) atorvastatin 20 mg t ablet RxNorm: 746196 TAKE ONE TABLET BY MO UTH EVERY DAY 04/25/2014 01/18/2015 In active Carafate 1 gram tablet RxNorm: 757256 Tablet(s) PO TAKE ONE TABLET BY MOUTH FO UR TIMES A DAY 04/14/2014 10/08/2015 Inactive Fish Oil 1,000 mg ca psule RxNorm: 1 Capsule(s) PO TID 04/13/2014 10/08/2015 Inactive Flexeril 10 mg tablet RxNorm: 762317 1 Tablet(s) PO Q8 PRN 04/01/2014 04/10/2014 Inactive Carafate 1 gram tablet RxNorm: 942483 1 Tablet(s) PO QID 03/10/2014 02/15/2019 Inactive chlordiazepoxide-cli dinium 5 mg-2.5 mg capsule RxNorm: 782762 1 Capsule(s) PO TID P RN 03/10/2014 04/10/2014 Inactive doxazosin 4 mg tablet RxNorm: 791831 1 Tablet(s) PO BID 02/02/2014 02/12/2015 Inactive Kenalog 40 mg/mL sylvia pension for injection RxNorm: 8790253 Milliliter(s) Inj 02/02/2014 02/02/2014 In active atorvastatin 20 mg t ablet RxNorm: 035895 Tablet(s) PO TAKE ONE TABLET BY MOUTH EVERY DAY 01/10/2014 04/24/2014 Inactive alprazolam 0.5 mg ta blet RxNorm: 467077 Tablet(s) PO TAKE ONE TABLET BY MOUTH EVERY NIGHT AT BEDTIME AND NEEDED FOR PANIC ATTACKS 01/10/2014 07/07/2014 Inactive (Appended: Controlled substance eRx refill - RxReferenceNumber: [id number]) alprazolam 0.5 mg ta blet RxNorm: 407146 1 Tablet(s) PO QHS TA KE ONE TABLET BY MOUTH EVERY NIGHT AT BEDTIME AND NEEDED FOR PANIC ATTACKS 01/10/2014 10/20/2014 Inactive (Appended: Controlled substance eRx refi ll - RxReferenceNumber: [id number]) alprazolam 0.5 mg ta blet RxNorm: 117141 Tablet(s) PO TAKE ONE TABLET BY MOUTH EVERY NIGHT AT BEDTIME AND NEEDED FOR PANIC ATTACKS 01/10/2014 01/09/2014 Inactive (Appended: Controlled substance eRx refill - RxReferenceNumber: [id number]) Carafate 1 gram tablet RxNorm: 689494 1 Tablet(s) PO QID 12/16/2013 01/14/2014 Inactive Nexium 40 mg capsule ,delayed release RxNorm: 289834 Capsule(s) PO TAKE ON E CAPSULE BY MOUTH EVERY DAY 11/25/2013 03/12/2016 Inactive doxazosin 4 mg tablet RxNorm: 250422 1/2 Tablet(s) PO QPM 10/21/2013 01/20/2019 Inactive alprazolam 0.5 mg ta blet RxNorm: 550505 1 Tablet(s) PO as dir ected q hs and prn panic attacks 10/18/2013 01/10/2014 Inactive doxazosin 4 mg tablet RxNorm: 718089 1 q am 1/2 q pm Tablet(s) PO 09/21/2013 02/01/2014 Inactive doxazosin 4 mg tablet RxNorm: 995328 1 q am 1/2 q pm Tablet(s) PO 09/21/2013 09/20/2013 Inactive amlodipine 10 mg tablet RxNorm: 313850 1 Tablet(s) PO QAM 08/30/2013 08/24/2014 Inactive now taking full tab metoprolol tartrate 100 mg tablet RxNorm: 678220 2 Tablet(s) PO QPM 08/24/2013 10/22/2013 Inactive alprazolam 0.5 mg ta blet RxNorm: 634640 1 Tablet(s) PO as dir ected q hs and prn panic attacks 07/29/2013 10/17/2013 Inactive Benicar 20 mg tablet RxNorm: 176571 1 Tablet(s) PO daily 07/26/2013 08/09/2013 Inactive amlodipine 10 mg tablet RxNorm: 591623 1 Tablet(s) PO QAM 07/19/2013 08/29/2013 Inactive cyclobenzaprine 5 mg tablet RxNorm: 321339 1 Tablet(s) PO TID IL N one pill every 8 hours as needed for muscle spasms. 07/19/2013 03/31/2014 Inactive Kenalog 40 mg/mL Sylvia p for Injection RxNorm: 7211138 1 Milliliter(s) Inj 06/30/2013 06/30/2013 In active prednisone 10 mg tab lets in a dose pack RxNorm: 933209 1 Tablet(s) PO as doc tor directed take steroid taper as directed on box 06/30/2013 07/09/2013 Inactive disp ense one PACK meclizine 25 mg tablet RxNorm: 303948 1 Tablet(s) PO Q6 PRN 1/2 - 1 pill every 6 hours as needed for vertigo 06/30/2013 08/10/2013 Inactive metoprolol tartrate 100 mg tablet RxNorm: 450895 1.5 Tablet(s) PO BID 06/30/2013 08/23/2013 In active metoprolol tartrate 100 mg tablet RxNorm: 856883 1 Tablet(s) PO BID 06/24/2013 06/29/2013 Inactive metoprolol tartrate 100 mg tablet RxNorm: 240621 1 Tablet(s) PO daily 06/17/2013 06/23/2013 In active metoprolol tartrate 100 mg tablet RxNorm: 691133 1 Tablet(s) PO daily 06/17/2013 06/16/2013 In active Toprol XL 100 mg tab let,extended release RxNorm: 537912 Tablet(s) PO TAKE ONE AND ONE- HALF TABLET BY MOUTH EVERY MORNING AND ONE TABLET IN THE EVENING 05/05/2013 06/22/2013 In active alprazolam 0.5 mg ta blet RxNorm: 155546 1 Tablet(s) PO as dir ected q hs and prn panic attacks 04/06/2013 07/28/2013 Inactive doxazosin 4 mg tablet RxNorm: 437686 Tablet(s) PO TAKE ONE TABLET BY MOUTH EV KANE DAY 04/01/2013 09/20/2013 Inactive Toprol XL 100 mg tab let,extended release RxNorm: 053354 Tablet(s) PO TAKE ONE AND ONE- HALF TABLET BY MOUTH EVERY MORNING AND ONE TABLET IN THE EVENING 12/25/2012 05/04/2013 In active Lasix 20 mg tablet RxNorm: 643406 1 Tablet(s) PO QDAY PRN Take 1 tab daily x 3 days then as needed 12/02/2012 04/10/2014 Inactive potassium chloride E R 20 mEq tablet,extended release(part/cryst) RxNorm: 593869 1 Tablet(s) PO PRN 12/02/2012 10/04/2013 Inactive prn swelling alprazolam 0.5 mg ta blet RxNorm: 193558 1 Tablet(s) PO as dir ected q hs and prn panic attacks 12/01/2012 04/05/2013 Inactive amlodipine 10 mg tablet RxNorm: 215112 1/2 Tablet(s) PO QAM 12/01/2012 07/18/2013 Inactive fluconazole 150 mg t ablet RxNorm: 483489 1 Tablet(s) PO daily 11/16/2012 11/20/2012 Inactive fluconazole 150 mg t ablet RxNorm: 173686 1 Tablet(s) PO daily 11/16/2012 11/15/2012 Inactive Nexium 40 mg capsule ,delayed release RxNorm: 500556 1 Capsule(s) PO daily 10/23/2012 11/16/2013 In active acyclovir 400 mg tablet RxNorm: 703291 1 Tablet(s) PO TID 10/19/2012 10/28/2012 Inactive chlordiazepoxide-cli dinium 5 mg-2.5 mg capsule RxNorm: 557391 1 Capsule(s) PO TID P RN 2012 12/22/2013 Inactive Voltaren 1 % Topical Gel RxNorm: 441813 4 Gram(s) TOP QID pt is to use 2 grams to each hand and 4 grams to knees. 08/18/2012 04/10/2014 Inactive doxazosin 4 mg tablet RxNorm: 440318 1 Tablet(s) PO QAM 08/18/2012 10/16/2012 Inactive atorvastatin 20 mg t ablet RxNorm: 205555 1 Tablet(s) PO HS 08/12/2012 08/11/2012 Inactive may have #90 x3 infection atorvastatin 20 mg t ablet RxNorm: 667006 1 Tablet(s) PO HS 08/12/2012 09/05/2013 Inactive may have #90 x3 infection doxazosin 4 mg tablet RxNorm: 166041 1 Tablet(s) PO daily 08/11/2012 08/17/2012 Inactive clonidine 0.1 mg/24 hr Weekly Transderm Patch RxNorm: 158265 1 Patch TD QW 08/04/2012 08/10/2012 In active Influenza Virus Vacc ine 0.5 mL RxNorm: IM 08/04/2012 08/04/2012 Inactive cyclobenzaprine 5 mg tablet RxNorm: 910649 1 Tablet(s) PO TID [place] N one pill every 8 hours as needed for muscle spasms. 07/13/2012 11/09/2012 Inactive cyclobenzaprine 5 mg tablet RxNorm: 621605 1 Tablet(s) PO TID IL N one pill every 8 hours as needed for muscle spasms. 07/09/2012 07/12/2012 Inactive gabapentin 100 mg ca psule RxNorm: 095368 1 Capsule(s) PO TID 07/01/2012 12/01/2012 Inactive atorvastatin 20 mg t ablet RxNorm: 439476 1/2 Tablet(s) PO daily 07/01/2012 08/11/2012 Inactive may of day supply if cheaper Toprol XL 100 mg tab let,extended release RxNorm: 355328 Tablet(s) PO BID 11/2 in am and 1 in evening 07/01/2012 06/16/2013 Inactive 1 1/2 q am 1 in [place] alprazolam 0.5 mg ta blet RxNorm: 597943 1 Tablet(s) PO as dir ected q hs and prn panic attacks 06/24/2012 11/30/2012 Inactive amlodipine 10 mg tablet RxNorm: 731808 1 Tablet(s) PO QAM 06/19/2012 11/30/2012 Inactive benazepril 20 mg tablet RxNorm: 731291 1 Tablet(s) PO daily 06/19/2012 06/13/2013 Inactive one daily at noon Toprol XL 100 mg tab let,extended release RxNorm: 407964 Tablet(s) PO BID 06/19/2012 06/30/2012 In active 1 1/2 q am 1 in polly Toprol XL 100 mg tab let,extended release RxNorm: 047150 1 1/2 Tablet(s) PO BI D 04/27/2012 06/18/2012 In active 90 or 30 day supply, whatever ins will a llow Lotrel 10 mg-20 mg Cap RxNorm: 755351 1 Capsule(s) PO daily 04/20/2012 08/04/2012 Inactive estradiol 0.5 mg Tab RxNorm: 226862 1 Tablet(s) PO BID 04/20/2012 12/02/2012 Inactive Toprol XL 100 mg 24 hr Tab RxNorm: 572111 1 1/2 Tablet(s) PO BID 04/14/2012 04/26/2012 Inactive Toprol XL 100 mg 24 hr Tab RxNorm: 191214 Tablet(s) PO daily 03/31/2012 04/13/2012 Inactive new directions: one q am 1/2 every evepl ease put on file until she needs filled Lipitor 10 mg tablet RxNorm: 534189 1 Tablet(s) PO daily 03/31/2012 12/02/2012 Inactive march day supply if cheaper Toprol XL 100 mg 24 hr Tab RxNorm: 010063 1 Tablet(s) PO daily 03/11/2012 03/30/2012 Inactive Boniva 150 mg Tab RxNorm: 665204 1 Tablet(s) PO weekly 02/19/2012 12/02/2012 Inactive Detrol LA 4 mg capsu le,extended release RxNorm: 537603 1 Capsule(s) PO daily 02/19/2012 03/12/2016 In active doxycycline hyclate 100 mg Tab RxNorm: 4541018 1 Tablet(s) PO BID 01/23/2012 02/25/2012 Inactive Rocephin 500 mg Solu tion for Injection RxNorm: 7559489 1 Milliliter(s) Inj 01/23/2012 01/23/2012 In active Kenalog 40 mg/mL Sylvia p for Injection RxNorm: 3073039 1 Milliliter(s) Inj 01/23/2012 01/23/2012 In active cyclobenzaprine 5 mg tablet RxNorm: 777828 1 Tablet(s) PO TID [place] N one pill every 8 hours as needed for muscle spasms. 12/20/2011 04/17/2012 Inactive clonidine 0.1 mg Tab RxNorm: 216691 1 Tablet(s) PO BID 12/20/2011 02/25/2012 Inactive Vitamin D3 5,000 uni t tablet RxNorm: 200540 1 Tablet(s) PO daily No Start Date Active Nexium 24HR 22.3 mg capsule,delayed release RxNorm: 815773 1 Capsule(s) PO daily as needed No Start Date Active Lotrel 10 mg-20 mg Cap RxNorm: 931597 1 Capsule(s) PO daily No Start Date 02/24/2012 Inactive benazepril 20 mg tablet RxNorm: 758979 1 Tablet(s) PO No Start Date 06/18/2012 Inactive one daily at noon Vimovo 500 mg-20 mg multiphase, immed & delay rel Tab RxNorm: 907608 1 Tablet(s) PO BID No Start Date 12/01/2012 Inactive B12 1000 mcg RxNorm: 2 IM daily No Start Date 03/12/2016 Inactive Fish Oil 1,000 mg ca psule RxNorm: 1 Capsule(s) PO BID No Start Date 04/12/2014 Inactive Benicar 40 mg tablet RxNorm: 850633 1 Tablet(s) PO daily No Start Date 10/24/2013 Inactive Carafate 1 gram tablet RxNorm: 048487 Oral No Start Date 12/15/2013 Inactive Vitamin B-12 1,000 m cg tablet RxNorm: 742872 1 Tablet(s) PO daily No Start Date 03/12/2016 Inactive amlodipine 10 mg tablet RxNorm: 805278 1 Tablet(s) PO daily No Start Date 06/18/2012 Inactive Phenergan VC-Codeine 6.25 mg-5 mg-10 mg/5 mL Syrup RxNorm: 666694 5-10 Milliliter(s) PO Q6 PRN No Start Date 04/10/2014 Inactive Celebrex 200 mg capsule RxNorm: 087535 1 Capsule(s) PO daily No Start Date 10/08/2015 Inactive Percocet 5 mg-325 mg tablet RxNorm: 2981862 1-2 Tablet(s) PO Q6 PRN No Start Date 06/16/2014 Inactive Exforge 10 mg-320 mg Tab RxNorm: 025774 1 Tablet(s) PO daily sample No Start Date 05/20/2012 Inactive Lipitor 10 mg Tab RxNorm: 348687 1 Tablet(s) PO daily No Start Date 03/30/2012 Inactive tramadol 50 mg tablet RxNorm: 803018 1-2 Tablet(s) PO Q8 as needed No Start Date 04/24/2016 Inactive Lasix 20 mg tablet RxNorm: 162067 1 Tablet(s) PO QDAY PRN Take 1 tab daily x 3 days then as needed No Start Date 12/01/2012 Inactive potassium chloride E R 20 mEq tablet,extended release(part/cryst) RxNorm: 1953787 1 Tablet(s) PO QDAY PRN No Start Ochoa e 12/01/2012 Inactive Toprol XL 100 mg 24 hr Tab RxNorm: 478369 1 Tablet(s) PO daily No Start Date 03/10/2012 Inactive MIDRIN 325 mg-65 mg- 100 mg Cap RxNorm: 821749 1 Capsule(s) PO PRN No Start Date 05/20/2012 Inactive Nexium 40 mg capsule ,delayed release RxNorm: 377085 1 Capsule(s) PO daily No Start Date 10/22/2012 Inactive Detrol LA 4 mg 24 hr Cap RxNorm: 511738 Oral No S tart Date 02/18/2012 Inactive Boniva 150 mg Tab RxNorm: 213791 Oral No Start Date 02/18/2012 Inactive Flexeril 10 mg tablet RxNorm: 998797 1 Tablet(s) PO Q8 PRN No Start Date 03/31/2014 Inactive clidinium bromide Oral RxNorm: Oral No Start Date 12/01/2012 Inactive Fish Oil 360 mg-1,20 0 mg capsule,delayed release RxNorm: 1 Capsule(s) PO daily No Start Date 02/15/2019 Inactive alprazolam 0.5 mg ta blet RxNorm: 277042 1 Tablet(s) PO as dir ected q hs and prn panic attacks No Start Date 06/23/2012 Inactive chlordiazepoxide Oral RxNorm: Oral No Start Date 12/01/2012 Inactive metoprolol tartrate 100 mg tablet RxNorm: 906004 Tablet(s) PO TAKE ONE AND ONE-HALF (1 & 1/2) TABLET BY MOUTH EVERY MORNING AND TAKE TWO TABLETS BY MOUTH EVERY EVENING No Start Date 08/03/2014 Inactive furosemide 20 mg tablet RxNorm: 457354 1 Tablet(s) PO daily No Start Date 01/29/2016 Inactive Calcium Oral RxNorm: Oral No Start Date 03/12 Inactive Nasonex 50 mcg/actua tion [place] RxNorm: 138539 1 [place] NASAL BID No Start Date 04/10/2014 Inactive Medication Administered Medication Codes Instruc tions Start Date Status Kenalog 40 mg/mL suspension for injection RxNorm: 4558821 Milliliter 04/24/2018 No longer Active Kenalog 40 mg/mL suspension for injection RxNorm: 2854938 Milliliter 06/23/2017 No longer Active Kenalog 40 mg/mL suspension for injection RxNorm: 5537239 2Milliliter 03/21/2017 N o longer Active Kenalog 40 mg/mL suspension for injection RxNorm: 5615320 1Milliliter 04/04/2016 N o longer Active Kenalog 40 mg/mL suspension for injection RxNorm: 6338063 Milliliter 06/12/2015 No longer Active Kenalog 40 mg/mL suspension for injection RxNorm: 9000646 Milliliter 05/15/2015 No longer Active Kenalog 40 mg/mL suspension for injection RxNorm: 5119699 Milliliter 02/02/2014 No longer Active Kenalog 40 mg/mL Susp for Injection RxNorm: 8222713 1Milliliter 06/30/2013 N o longer Active Influenza Virus Vaccine 0.5 mL RxNorm: 08/04/2012 No longer Active Rocephin 500 mg Solution for Injection RxNorm: 5609155 1Milliliter 01/23/2012 N o longer Active Kenalog 40 mg/mL Susp for Injection RxNorm: 2111057 1Milliliter 01/23/2012 N o longer Active Immunizations [...] Ord2 RDW 14.8 % 06/05/2015 Comp Metabolic Sgv294 NA 138 mEq/L 06/05/2015 Comp Metabolic Muy346 K 4.3 mEq/L 06/05/2015 Comp Metabolic Nak405 CL 100 mEq/L 06/05/2015 Comp Metabolic Bks328 CO2 29.0 mEq/L 06/05/2015 Comp Metabolic Wea330 AN ION GAP 13 06/05/2015 Comp Metabolic Efr532 GL UCOSE 85 mg/dL 06/05/2015 Comp Metabolic Hex300 Cr eat 0.7 mg/dL 06/05/2015 Comp Metabolic Kez042 eG FR 94 ml/min/1.73m2 06/05 Comp Metabolic Oxf040 BUN 16 mg/dL 06/05/2015 Comp Metabolic Gaq449 B/ C Ratio 24.2 Ratio 06/05/2015 Comp Metabolic Bdh413 CA LCIUM 9.5 mg/dL 06/05/2015 Comp Metabolic Yqg248 AL K PHOS 69 U/L 06/05/2015 Comp Metabolic Bdg296 T(SGOT) 22 U/L 06/05/2015 Comp Metabolic Kpu069 AL T(SGPT) 26 U/L 06/05/2015 Comp Metabolic Uec225 BI LI T 0.5 mg/dL 06/05/2015 Comp Metabolic Kcu816 AL BUMIN 4.2 g/dL 06/05/2015 Comp Metabolic Mnu834 TP RO 6.1 g/dL 06/05/2015 Comp Metabolic Gjg288 GL OB 1.9 g/dL 06/05/2015 Comp Metabolic Fvi671 A/ G Ratio 2.2 Ratio 06/05/2015 Comp Metabolic Qqc002 Os mo 276 mOsmo 06/05/2015 Tsh Ord6 hTSH II 1.99 uIU/mL 06/05/2015 Lipid Ord30 CHOL 171 mg/dL 06/05/2015 Lipid Ord30 HDL 55.0 mg/dl 06/05/2015 Lipid Ord30 TRIG 178 mg/dL 06/05/2015 Lipid Ord30 LDL 80 mg/dL 06/05/2015 Lipid Ord30 C/HDL 3.1 Ratio 06/05/2015 %Hba1C Ocg973 % HbA1c 58723-5 5.7 % 06/05/2015 %Hba1C Dgz400 Gluc Ave 117 mg/dL 06/05/2015 A1C HPLC 5957068 A1C HPLC 18402-0 5.6 % 07/15/2014 GFR CALC 3678765 GFR AA >60 ML/MIN 07/15/2014 GFR CALC 9476547 GFR NON -AA >60 ML/MIN 07/15/2014 CHEM 14 4907092 AST 21 U/L 07/15/2014 CHEM 14 9331237 ALT 23 IU/L 07/15/2014 CHEM 14 5491697 BUN 14 MG/DL 07/15/2014 CHEM 14 4601982 ALBUMIN 4.2 GM/DL 07/15/2014 CHEM 14 0015213 CHLORIDE 104 MMOL/L 07/15/2014 CHEM 14 5450764 BILI TOT 0.4 MG/DL 07/15/2014 CHEM 14 4140362 ALK PHOS 88 U/L 07/15/2014 CHEM 14 3983195 SODIUM 140 MMOL/L 07/15/2014 CHEM 14 8618404 CREATINI NE 0.63 MG/DL 07/15/2014 CHEM 14 8144155 CALCIUM 9.4 MG/DL 07/15/2014 CHEM 14 8129763 POTASSIUM 4.0 MMOL/L 07/15/2014 CHEM 14 8018793 PROT TOT 6.4 GM/DL 07/15/2014 CHEM 14 1282014 GLUCOSE 90 MG/DL 07/15/2014 CHEM 14 3816855 BICARB 30 MMOL/L 07/15/2014 CHEM 14 4577419 ANION GAP 6 MEQ/L 07/15/2014 A1C HPLC 8981888 A1C HPLC 23753-7 6.0 % 04/13/2014 TSH 2840676 TSH 1.875 uIU/ML 04/12/2014 CHEM 14 2714932 AST 17 U/L 04/12/2014 CHEM 14 1066213 ALT 20 IU/L 04/12/2014 CHEM 14 7489621 BUN 14 MG/DL 04/12/2014 CHEM 14 8776598 ALBUMIN 4.2 GM/DL 04/12/2014 CHEM 14 2589404 CHLORIDE 104 MMOL/L 04/12/2014 CHEM 14 6396421 BILI TOT 0.3 MG/DL 04/12/2014 CHEM 14 4641230 ALK PHOS 80 U/L 04/12/2014 CHEM 14 4815614 SODIUM 141 MMOL/L 04/12/2014 CHEM 14 4769908 CREATINI NE 0.62 MG/DL 04/12/2014 CHEM 14 5787681 CALCIUM 9.4 MG/DL 04/12/2014 CHEM 14 3276965 POTASSIUM 3.5 MMOL/L 04/12/2014 CHEM 14 3157127 PROT TOT 6.5 GM/DL 04/12/2014 CHEM 14 3517523 GLUCOSE 89 MG/DL 04/12/2014 CHEM 14 2115485 BICARB 29 MMOL/L 04/12/2014 CHEM 14 2922431 ANION GAP 8 MEQ/L 04/12/2014 LIPID GRP HDL TE ST 59 MG/DL 04/12/2014 LIPID GRP TRIG 177 MG/DL 04/12/2014 LIPID GRP TEST L DL 106 MG/DL 04/12/2014 LIPID GRP CHOL 200 MG/DL 04/12/2014 LIPID GRP RCHOL/ HDL 3.39 RATIO 04/12/2014 CBC 9405626 WBC 4.6 10e9/L 04/12/2014 CBC 6151541 RBC 4.52 10e12/L 04/12/2014 CBC 8663273 HGB 13.1 g/dL 04/12/2014 CBC 4853649 HCT DET 39.2 % 04/12/2014 CBC 3129830 MCV 86.7 fL 04/12/2014 CBC 0445490 MCH 29.0 pg 04/12/2014 CBC 5131549 MCHC 33.4 g/dL 04/12/2014 CBC 1744732 PLT 233 10e9/L 04/12/2014 CBC 9383690 MPV 9.8 fL 04/12/2014 CBC 5721493 AN % 59.5 % 04/12/2014 CBC 8981081 LY % 28.6 % 04/12/2014 CBC 4565074 MON % 10.0 % 04/12/2014 CBC 1480762 EOS % 1.5 % 04/12/2014 CBC 4721602 BASO % 0.4 % 04/12/2014 CBC 5992918 RDW 13.7 % 04/12/2014 CBC 7678310 ABS AN 2.74 10e9/L 04/12/2014 CBC 6165869 ABS LYMPH 1.32 10e9/L 04/12/2014 CBC 4914065 ABS MONO 0.46 10e9/L 04/12/2014 CBC 9272783 ABS EOS 0.07 10e9/L 04/12/2014 CBC 8930710 ABS BASO 0.02 10e9/L 04/12/2014 CBC 6881273 RDW-SD 42.6 fL 04/12/2014 GFR CALC 3362759 GFR AA >60 ML/MIN 04/12/2014 GFR CALC 8977309 GFR NON -AA >60 ML/MIN 04/12/2014 LIPID GRP HDL TE ST 57 MG/DL 08/24/2013 LIPID GRP TRIG 183 MG/DL 08/24/2013 LIPID GRP 4901764 TEST L DL 64 MG/DL 08/24/2013 LIPID GRP CHOL 158 MG/DL 08/24/2013 LIPID GRP RCHOL/ HDL 2.77 RATIO 08/24/2013 GFR CALC 1441318 GFR AA >60 ML/MIN 08/24/2013 GFR CALC 0806388 GFR NON -AA >60 ML/MIN 08/24/2013 CHEM 14 3201739 AST 13 U/L 08/24/2013 CHEM 14 5111410 ALT 15 IU/L 08/24/2013 CHEM 14 3955333 BUN 14 MG/DL 08/24/2013 CHEM 14 7285839 ALBUMIN 4.3 GM/DL 08/24/2013 CHEM 14 4956200 CHLORIDE 106 MMOL/L 08/24/2013 CHEM 14 9973867 BILI TOT 0.3 MG/DL 08/24/2013 CHEM 14 1147200 ALK PHOS 75 U/L 08/24/2013 CHEM 14 8198187 SODIUM 141 MMOL/L 08/24/2013 CHEM 14 0268677 CREATINI NE 0.56 MG/DL 08/24/2013 CHEM 14 0496827 CALCIUM 9.1 MG/DL 08/24/2013 CHEM 14 2377306 POTASSIUM 4.2 MMOL/L 08/24/2013 CHEM 14 8411618 PROT TOT 6.0 GM/DL 08/24/2013 CHEM 14 0570199 GLUCOSE 83 MG/DL 08/24/2013 CHEM 14 5554057 BICARB 28 MMOL/L 08/24/2013 CHEM 14 0465182 ANION GAP 7 MEQ/L 08/24/2013 CBC 6692585 WBC 4.7 10e9/L 08/24/2013 CBC 2500219 RBC 4.33 10e12/L 08/24/2013 CBC 3064161 HGB 12.5 g/dL 08/24/2013 CBC 4766440 HCT DET 38.2 % 08/24/2013 CBC 5519771 MCV 88.2 fL 08/24/2013 CBC 0672114 MCH 28.9 pg 08/24/2013 CBC 0296219 MCHC 32.7 g/dL 08/24/2013 CBC 2222025 PLT 218 10e9/L 08/24/2013 CBC 8776685 MPV 10.4 fL 08/24/2013 CBC 1537512 NA % 61.9 % 08/24/2013 CBC 4911151 LY % 24.8 % 08/24/2013 CBC 2572996 MON % 10.3 % 08/24/2013 CBC 8712483 EOS % 2.1 % 08/24/2013 CBC 9081226 BASO % 0.9 % 08/24/2013 CBC 3084736 RDW 14.6 % 08/24/2013 CBC 9275041 ABS AN 2.91 10e9/L 08/24/2013 CBC 0986887 ABS LYMPH 1.17 10e9/L 08/24/2013 CBC 0547347 ABS MONO 0.48 10e9/L 08/24/2013 CBC 0437126 ABS EOS 0.10 10e9/L 08/24/2013 CBC 7907347 ABS BASO 0.04 10e9/L 08/24/2013 CBC 6905307 RDW-SD 46.7 fL 08/24/2013 TSH 6498002 TSH 1.208 uIU/ML 08/24/2013 Review of Systems [...] time 06/30/2013 None Full Exam - General 1995 [...] rate 06/24/2013 None Full Exam - General 1995 Cardiovascular auscultation of heart Overall: normal heart sounds 06/24/2013 None Full Exam - General 1995 Cardiovascular auscultation of heart Overall: no murmurs 06/24/2013 None Full Exam - General 1995 Abdomen abdominal exam Overall: no tenderness 06/24/2013 None Full Exam - General 1995 Abdomen [...] accomodation 02/19/2012 None Full Exam - General 1995 [...] benign 01/23/2012 None Full Exam - General 1995 Cardiovascular auscultation of heart Overall: normal heart sounds 01/02/2012 None Full Exam - General 1994 Cardiovascular auscultation of heart Overall: no murmurs 01/02/2012 None Full Exam - General 1995 Musculoskeletal head and neck Overall: head atraumatic 01/02/2012 None Full Exam - General 1994 Musculoskeletal head and neck Cervical Spine: presence of a scar 01/02/2012 anterior neck on the left Full Exam - General 1995 Musculoskeletal head and neck Cervical Spine: decreased flexion 01/02/2012 None Full Exam - General 1994 Musculoskeletal head and neck Cervical Spine: decreased extension 01/02/2012 None Full Exam - General 1995 Integument inspection of skin Location: right arm 01/02/2012 None Full Exam - General 1995 Integument inspection of skin Rash/Lesions: ulceration 01/02/2012 [...] visualized 12/20/2011 None Full Exam - General 1995 Ears/Nose/Throat oral cavity/pharynx/larynx Overall: oropharyngeal mucosa clear 12/20/2011 None Full Exam - General 1995 Ears/Nose/Throat oral cavity/pharynx/larynx Overall: no masses 12/20/2011 [...] Formatting Model/CDA Sections, Assigned to/Jen Cota CPT-4: 92294Xpaggae 07/28/2018 THER/PROPH/DIAG INJ SC/IM CPT-4: 97850 04/24/2018 TRIAMCINOLONE ACET I [place] NOS CPT-4: J3301 04/24/2018 PPPS, SUBSEQ VISIT CPT- 4: G0439 02/03/2018 TRIAMCINOLONE ACET I [place] NOS CPT-4: J3301 06/23/2017 TRIAMCINOLONE ACET I [place] NOS CPT-4: J3301 03/21/2017 PPPS, SUBSEQ VISIT CPT- 4: G0439 01/22/2017 ADMIN PNEUMOCOCCAL V ACCINE SNOMED CT: [id number] CPT-4: G0009 09/16/2016 Pneumococcal Polysac charide Vaccine, 23-Valent, Ad CPT-4: 42040 09/16/2016 THER/PROPH/DIAG INJ SC/IM CPT-4: 29274 04/04/2016 TRIAMCINOLONE ACET I [place] NOS CPT-4: J3301 04/04/2016 ADMIN INFLUENZA VIRU S VAC CPT-4: G0008 07/28/2015 FLU VACC 4 XIMENA 3 YRS PLUS IM Formatting Model/CDA Sections, Assigned to/Jen Cota SNOMED CT: [id number] CPT-4: 38109Jkteuxi 07/28/2015 TRIAMCINOLONE ACET I [place] NOS CPT-4: J3301 06/12/2015 TRIAMCINOLONE ACET I [place] NOS CPT-4: J3301 05/15/2015 ADMIN INFLUENZA VIRU S VAC CPT-4: G0008 07/19/2014 FLU VAC NO PRSV 4 VA L 3 YRS+ Assigned to/Jen Cota CPT-4: 91418Swdswcp 07/19/2014 TRIAMCINOLONE ACET I [place] NOS CPT-4: J3301 02/02/2014 ROUTINE VENIPUNCTURE CPT-4: 39908 08/24/2013 ADMIN INFLUENZA VIRU S VAC CPT-4: [...] CPT-4: J3301 01/23/2012 THER/PROPH/DIAG INJ SC/IM CPT-4: 37100 01/23/2012 REMOVE IMPACTED EAR WAX UNI CPT-4: 60814 01/02/2012 ROUTINE VENIPUNCTURE CPT-4: 30745 12/20/2011 Vital Signs Date Vital 02/16/2019 Blood Pressure 1: 136/82 Code: 8480-6 BMI: 34.0 Code: 23009-4 Heart Rate 1: 88 bpm Height: 5' SpO2: 94% Weight: 177 lbs 01/21/2019 Blood Pressure 1: 144/70 Code: 8480-6 BMI: 34.0 Code: 89417-3 Heart Rate 1: 68 bpm Height: 5' SpO2: 97% Temperature: 36.5 (C ) / 97.7 (F) Weight: 177 lbs 10/14/2018 Blood Pressure 1: 150/72 Code: 8480-6 Heart Rate 1: 58 bpm Height: 5' SpO2: 98% Weight: 09/22/2018 Blood Pressure 1: 140/80 Code: 8480-6 BMI: 32.7 Code: 82897-8 Heart Rate 1: 55 bpm Height: 5' SpO2: 98% Weight: 170 lbs 08/17/2018 Blood Pressure 1: 140/76 Code: 8480-6 BMI: 33.0 Code: 04943-9 Heart Rate 1: 60 bpm Height: 5' SpO2: 99% Weight: 172 lbs 06/08/2018 Blood Pressure 1: 136/80 Code: 8480-6 BMI: 33.8 Code: 89992-2 Heart Rate 1: 65 bpm Height: 5' SpO2: 98% Weight: 176 lbs 05/04/2018 Blood Pressure 1: 134/80 Code: 8480-6 BMI: 35.9 Code: 52450-5 Heart Rate 1: 72 bpm Height: 5' SpO2: 94% Weight: 187 lbs 02/04/2018 Blood Pressure 1: 144/76 Code: 8480-6 BMI: 35.0 Code: 32510-5 Heart Rate 1: 64 bpm Height: 5' SpO2: 98% Weight: 182 lbs 02/03/2018 Blood Pressure 1: 136/62 Code: 8480-6 BMI: 35.0 Code: 61612-3 Heart Rate 1: 57 bpm Height: 5' SpO2: 98% Waist Measure (cm): 94 cm Weight: 182 lbs 09/17/2017 Blood Pressure 1: 150/82 Code: 8480-6 BMI: 33.6 Code: 91368-5 Heart Rate 1: 58 bpm Height: 5' SpO2: 98% Weight: 175 lbs 06/23/2017 Blood Pressure 1: 124/66 Code: 8480-6 Heart Rate 1: 65 bpm Height: 5' SpO2: 97% Weight: 05/13/2017 Blood Pressure 1: 128/80 Code: 8480-6 BMI: 32.8 Code: 52849-5 Heart Rate 1: 76 bpm Height: 5' SpO2: 95% Weight: 171 lbs 03/21/2017 Blood Pressure 1: 152/88 Code: 8480-6 Heart Rate 1: 70 bpm Height: SpO2: 98% Weight: 03/19/2017 Blood Pressure 1: 132/64 Code: 8480-6 BMI: 33.0 Code: 45776-8 Heart Rate 1: 64 bpm Height: 5' SpO2: 96% Weight: 172 lbs 01/22/2017 Blood Pressure 1: 120/68 Code: 8480-6 BMI: 33.4 Code: 99139-3 Heart Rate 1: 68 bpm Height: 5' SpO2: 96% Weight: 174 lbs 01/14/2017 Blood Pressure 1: 138/80 Code: 8480-6 BMI: 33.4 Code: 88095-1 Heart Rate 1: 69 bpm Height: 5' SpO2: 98% Weight: 174 lbs 09/23/2016 Blood Pressure 1: 138/70 Code: 8480-6 BMI: 33.6 Code: 07331-3 Heart Rate 1: 68 bpm Height: 5' SpO2: 98% Temperature: 36.4 (C ) / 97.5 (F) Weight: 175 lbs 09/16/2016 Blood Pressure 1: 124/74 Code: 8480-6 BMI: 33.6 Code: 96790-1 Heart Rate 1: 64 bpm Height: 5' SpO2: 97% Weight: 175 lbs 06/25/2016 Weigh t: 174 lbs 06/17/2016 Blood Pressure 1: 128/80 Code: 8480-6 BMI: 34.0 Code: 59133-0 Heart Rate 1: 76 bpm Height: 5' SpO2: 95% Weight: 177 lbs 04/03/2016 Blood Pressure 1: 138/72 Code: 8480-6 BMI: 34.2 Code: 17340-5 Heart Rate 1: 63 bpm Height: 5' SpO2: 96% Weight: 178 lbs 03/13/2016 Blood Pressure 1: 128/72 Code: 8480-6 BMI: 35.3 Code: 40007-3 Heart Rate 1: 71 bpm Height: 5' SpO2: 97% Weight: 184 lbs 01/30/2016 Blood Pressure 1: 134/72 Code: 8480-6 BMI: 35.2 Code: 91976-0 Heart Rate 1: 71 bpm Height: 5' SpO2: 96% Weight: 183 lbs 12/21/2015 Blood Pressure 1: 148/90 Code: 8480-6 BMI: 34.6 Code: 10826-4 Heart Rate 1: 89 bpm Height: 5' SpO2: 96% Weight: 180 lbs 10/09/2015 Blood Pressure 1: 124/76 Code: 8480-6 BMI: 34.6 Code: 93241-9 Heart Rate 1: 88 bpm Height: 5' SpO2: 96% Weight: 180 lbs 06/12/2015 Blood Pressure 1: 148/74 Code: 8480-6 BMI: 33.4 Code: 24476-0 Heart Rate 1: 70 bpm Height: 5' SpO2: 96% Weight: 174 lbs 06/05/2015 Blood Pressure 1: 142/82 Code: 8480-6 BMI: 33.2 Code: 71937-2 Heart Rate 1: 72 bpm Height: 5' Weight: 173 lbs 05/15/2015 Blood Pressure 1: 118/80 Code: 8480-6 BMI: 33.6 Code: 58211-4 Heart Rate 1: 82 bpm Height: 5' Weight: 175 lbs 02/06/2015 Blood Pressure 1: 122/76 Code: 8480-6 BMI: 34.6 Code: 07339-7 Heart Rate 1: 58 bpm Height: 5' Weight: 180 lbs 01/10/2015 Blood Pressure 1: 158/90 Code: 8480-6 Blood Pressure 2: 152/90 Code: 8480-6 BMI: 34.6 Code: 33311-1 Heart Rate 1: 68 bpm Height: 5' Weight: 180 lbs 07/19/2014 Blood Pressure 1: 142/78 Code: 8480-6 BMI: 33.6 Code: 69198-2 Heart Rate 1: 56 bpm Height: 5' Weight: 175 lbs 06/17/2014 Blood Pressure 1: 128/86 Code: 8480-6 Heart Rate 1: 66 bpm SpO2: 98% Weight: 172 lbs 04/19/2014 Blood Pressure 1: 152/82 Code: 8480-6 BMI: 32.5 Code: 84033-9 Heart Rate 1: 60 bpm Height: 5' Weight: 169 lbs 04/11/2014 Blood Pressure 1: 120/80 Code: 8480-6 BMI: 33.4 Code: 89871-8 Heart Rate 1: 64 bpm Height: 5' Weight: 174 lbs 03/10/2014 Blood Pressure 1: 136/64 Code: 8480-6 BMI: 32.7 Code: 11337-6 Heart Rate 1: 76 bpm Height: 5' Weight: 170 lbs 02/02/2014 Blood Pressure 1: 160/76 Code: 8480-6 BMI: 32.7 Code: 24442-8 Heart Rate 1: 64 bpm Height: 5' Weight: 170 lbs 10/25/2013 Blood Pressure 1: 164/82 Code: 8480-6 BMI: 31.9 Code: 95873-3 Heart Rate 1: 60 bpm Height: 5' Weight: 166 lbs 08/24/2013 Blood Pressure 1: 138/88 Code: 8480-6 Heart Rate 1: 80 bpm Weight: 07/26/2013 Blood Pressure 1: 154/70 Code: 8480-6 Heart Rate 1: 72 bpm Weight: 162 lbs 06/30/2013 Blood Pressure 1: 182/86 Code: 8480-6 Heart Rate 1: 80 bpm Weight: 06/24/2013 Blood Pressure 1: 148/68 Code: 8480-6 BMI: 31.3 Code: 17192-9 Heart Rate 1: 72 bpm Height: 5' [...] 1: 142/88 Code: 8480-6 BMI: 30.6 Code: 86716-5 Heart Rate 1: 64 bpm Height: 5' [...] 1: 180/96 Code: 8480-6 BMI: 30.5 Code: 14854-8 Heart Rate 1: 76 bpm Height: 5' Respiratory Rate: 16 bpm Weight: 159 lbs 02/19/2012 Blood Pressure 1: 150/70 Code: 8480-6 Blood Pressure 2: 160/78 Code: 8480-6 Heart Rate 1: 76 bpm Respiratory Rate: 16 bpm Weight: 158 lbs 01/23/2012 Blood Pressure 1: 140/84 Code: 8480-6 BMI: 30.3 Code: 92574-4 Heart Rate 1: 68 bpm Height: 5' Respiratory Rate: 16 bpm SpO2: 98% Temperature: 37.0 (C ) / 98.6 (F) Weight: 158 lbs 01/02/2012 Blood Pressure 1: 142/92 Code: 8480-6 BMI: 30.7 Code: 81419-9 Heart Rate 1: 72 bpm Height: 5' Respiratory Rate: 16 bpm Weight: 160 lbs 12/20/2011 Blood Pressure 1: 170/84 Code: 8480-6 BMI: 30.0 Code: 29060-7 Heart Rate 1: 70 bpm Height: 5' [...] 06/12/2015 None rash Location-Head/Neck on the right bahai 06/12/2015 None rash Location-Head/Neck on the right [...] Encounters Encounter Performer Loca tion Codes Date ([id number]) [id number] EST. P ATIENT, LEVEL III Diagnosis: Essential (primary) hypertension[ICD10: I10] Diagnosis: Recurrent oral aphthae[ICD10: K12.0] Zoya Varela MD, [facility] CPT-4: 20124 02/16/2019 [id number]) [id number] EST. P ATIENT, LEVEL III Diagnosis: Cough[ICD10: R05] Diagnosis: Acute upper respiratory infection, unspecified[ICD10: J06.9] [facility] CPT-4: 99929 01/21/2019 [id number]) [id number] EST. P ATIENT, LEVEL IV Diagnosis: Essential (primary) hypertension[ICD10: I10] Diagnosis: Mixed hyperlipidemia[ICD10: E78.2] Zoya Varela MD, [facility] CPT- 4: 76300 10/14/2018 [id number]) [id number] EST. P ATIENT, LEVEL III Diagnosis: Essential (primary) hypertension[ICD10: I10] Diagnosis: Other specified cardiac arrhythmias[ICD10: I49.8] Zoya Varela MD, [facility] CPT-4: 79909 09/22/2018 ([id number]) 57163 EST. P ATIENT, LEVEL IV Diagnosis: Essential (primary) hypertension[ICD10: I10] Diagnosis: Allergic rhinitis due to pollen[ICD10: J30.1] Diagnosis: Sciatica, right side[ICD10: M54.31] Zoya Varela MD, [facility] CPT- 4: 56036 08/17/2018 ([id number]) 49825 EST. 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 P ATIENT, LEVEL III Diagnosis: Acute upper respiratory infection, unspecified[ICD10: J06.9] Kacy Varela MD, [facility] CPT-4: 58711 05/04/2018 ([id number]) 17818 EST. P ATIENT, LEVEL IV Diagnosis: Essential (primary) hypertension[ICD10: I10] Diagnosis: Type 2 diabetes mellitus without complications[ICD10: E11.9] Diagnosis: Mixed hyperlipidemia[ICD10: E78.2] Diagnosis: Localized edema[ICD10: R60.0] Zoya Varela MD, [facility] CPT-4: 52329 02/04/2018 ([id number]) 29646 EST. P ATIENT, LEVEL IV Diagnosis: Essential (primary) hypertension[ICD10: I10] Zoya Varela MD, [facility] CPT-4: 00216 09/17/2017 ([id number]) 45837 EST. P ATIENT, LEVEL III Diagnosis: Allergic contact dermatitis due to plants, except food[ICD10: L23.7] Kacy Varela MD, [facility] CPT-4: 71411 06/23/2017 ([id number]) 03173 EST. P ATIENT, LEVEL IV Diagnosis: Essential (primary) hypertension[ICD10: I10] Diagnosis: Mixed hyperlipidemia[ICD10: E78.2] Zoya Varela MD, [facility] CPT- 4: 78880 05/13/2017 ([id number]) 57993 EST. P ATIENT, LEVEL III Diagnosis: Allergic contact dermatitis due to plants, except food[ICD10: L23.7] Kacy Varela MD, [facility] CPT-4: 49214 03/21/2017 81254 EST. PATIENT, LEVEL III Diagnosis: Bitten or stung by nonvenomous insect and other nonvenomous arthropods, initial encounter[ICD10: W57.XXXA] Diagnosis: Cellulitis of left lower limb[ICD10: L03.116] Laura Varela MD, [facility] CPT-4: 91197 03/19/2017 ([id number]) 86242 EST. P ATIENT, LEVEL IV Diagnosis: Type 2 diabetes mellitus without complications[ICD10: E11.9] Diagnosis: Essential (primary) hypertension[ICD10: I10] Diagnosis: Other specified epidermal thickening[ICD10: L85.8] Zyoa Varela MD, [facility] CPT-4: 56013 01/14/2017 47561 EST. PATIENT, LEVEL III Diagnosis: Glossodynia[ICD10: K14.6] Kacy Varela MD, [facility] CPT- 4: 25805 09/23/2016 ([id number]) 34391 EST. P ATIENT, LEVEL IV Diagnosis: Encounter for screening mammogram for malignant neoplasm of breast[ICD10: Z12.31] Diagnosis: Encounter for immunization[ICD10: Z23] Zoya Varela MD, [facility] CPT-4: 91885 09/16/2016 ([id number]) 51796 EST. P ATIENT, LEVEL III Diagnosis: Diseases of lips[ICD10: K13.0] Diagnosis: Allergic rhinitis due to pollen[ICD10: J30.1] Kacy Varela MD, [facility] CPT-4: 17284 06/25/2016 ([id number]) 10059 EST. P ATIENT, LEVEL III Diagnosis: Essential (primary) hypertension[ICD10: I10] Kacy Varela MD, [facility] CPT-4: 12785 06/17/2016 29793 EST. PATIENT, LEVEL IV Diagnosis: Other acute sinusitis[ICD10: J01.80] Diagnosis: Acute laryngopharyngitis[ICD10: J06.0] Diagnosis: Other allergic rhinitis[ICD10: J30.89] Laura Varela MD, [facility] CPT-4: 51103 04/03/2016 ([id number]) 12847 EST. P ATIENT, LEVEL IV Diagnosis: Essential (primary) hypertension[ICD10: I10] Diagnosis: Localized edema[ICD10: R60.0] Diagnosis: Polyneuropathy, unspecified[ICD10: G62.9] Zoya Varela MD, [facility] CPT-4: 26980 03/13/2016 ([id number]) 06506 EST. P ATIENT, LEVEL IV Diagnosis: Essential (primary) hypertension[ICD10: I10] Diagnosis: Localized edema[ICD10: R60.0] Diagnosis: Type 2 diabetes mellitus without complications[ICD10: E11.9] Zoya Varela MD, [facility] CPT-4: 93263 01/30/2016 60463 EST. PATIENT, LEVEL IV Diagnosis: Localized edema[ICD10: R60.0] Laura Varela MD, [facility] CPT-4: 69160 12/21/2015 ([id number]) 12980 EST. P ATIENT, LEVEL III Diagnosis: Essential (primary) hypertension[ICD10: I10] Diagnosis: Allergic rhinitis due to pollen[ICD10: J30.1] Diagnosis: Cervicalgia[ICD10: M54.2] Kacy Varela MD, [facility] CPT- 4: 73537 10/09/2015 41617 EST. PATIENT, LEVEL II Diagnosis: Contact dermatitis[ICD9: 692.9] Kacy Varela MD, [facility] CPT- 4: 46622 06/12/2015 ([id number]) 94795 EST. P ATIENT, LEVEL III Diagnosis: ESSENTIAL HYPERTENSION[ICD9: 401.9] Diagnosis: DIABETES TYPE II[ICD9: 250.00] Diagnosis: Anxiety[ICD9: 300.00] Kacy Varela MD, [facility] CPT-4: 41394 06/05/2015 ([id number]) 63798 EST. P ATIENT, LEVEL IV Diagnosis: Anxiety[ICD9: 300.00] Diagnosis: ALLERGIC RHINITIS[ICD9: 477.9] Diagnosis: ESOPHAGEAL REFLUX[ICD9: 530.81] Kacy Varela MD, [facility] CPT- 4: 41668 05/15/2015 ([id number]) 98128 EST. P ATIENT, LEVEL III Diagnosis: ESSENTIAL HYPERTENSION[ICD9: 401.9] Zoya Varela MD, [facility] CPT- 4: 30025 02/06/2015 ([id number]) 65929 EST. P ATIENT, LEVEL IV Diagnosis: ESSENTIAL HYPERTENSION[ICD9: 401.9] Diagnosis: EDEMA[ICD9: 782.3] Diagnosis: DIABETES TYPE II[ICD9: 250.00] Zoya Varela MD, [facility] CPT-4: 82733 01/10/2015 ([id number]) 22685 EST. P ATIENT, LEVEL IV Diagnosis: ESSENTIAL HYPERTENSION[ICD9: 401.9] Diagnosis: DIABETES TYPE II[ICD9: 250.00] Zoya Varela MD, [facility] CPT-4: 10107 07/19/2014 ([id number]) 45635 EST. P ATIENT, LEVEL III Diagnosis: Left ankle pain[ICD9: 719.47] Kacy Varela MD, [facility] CPT- 4: 31331 06/17/2014 ([id number]) 80051 EST. P ATIENT, LEVEL III Diagnosis: ESSENTIAL HYPERTENSION[ICD9: 401.9] Diagnosis: Elevated blood sugar[ICD9: 790.29] Zoya Varela MD, [facility] CPT- 4: 85176 04/19/2014 ([id number]) 68152 EST. P ATIENT, LEVEL IV Diagnosis: ESSENTIAL HYPERTENSION[SNOMED: 91868301] Diagnosis: ESOPHAGEAL REFLUX[ICD9: 530.81] Zoya Varela MD, [facility] CPT-4: 61511 04/11/2014 ([id number]) 44506 EST. P ATIENT, LEVEL IV Diagnosis: ALLERGIC RHINITIS[ICD9: 477.9] Diagnosis: Anxiety[ICD9: 300.00] Diagnosis: Dyspnea[ICD9: 786.09] Diagnosis: ESOPHAGEAL REFLUX[ICD9: 530.81] Kacy Varela MD, [facility] CPT- 4: 15499 03/10/2014 ([id number]) 50386 EST. P ATIENT, LEVEL III Diagnosis: ALLERGIC RHINITIS[ICD9: 477.9] Diagnosis: ESSENTIAL HYPERTENSION[SNOMED: 69511355] Kacy Varela MD, [facility] CPT-4: 51900 02/02/2014 ([id number]) 69527 EST. P ATIENT, LEVEL III Diagnosis: ESSENTIAL HYPERTENSION[SNOMED: 95733939] Diagnosis: Skin irritation[ICD9: 709.9] Zoya Varela MD, [facility] CPT-4: 57948 10/25/2013 ([id number]) 43894 EST. P ATIENT, LEVEL III Diagnosis: HYPERLIPIDEMIA[ICD9: 272.4] Diagnosis: ESSENTIAL HYPERTENSION[SNOMED: 27684304] Diagnosis: EDEMA[ICD9: 782.3] Diagnosis: Encounter for long-term (current) use of other medications[ICD9: V58.69] Zoya Varela MD, [facility] CPT-4: 05853 08/24/2013 ([id number]) 13466 EST. P ATIENT, LEVEL III Diagnosis: ESSENTIAL HYPERTENSION[SNOMED: 02598802] Zoya Varela MD, [facility] CPT-4: 64600 07/26/2013 ([id number]) 91720 EST. P ATIENT, LEVEL III Diagnosis: ESSENTIAL HYPERTENSION[SNOMED: 62380928] Zoya Varela MD, [facility] CPT-4: 50778 06/30/2013 ([id number]) 19894 EST. P ATIENT, LEVEL III Diagnosis: ESSENTIAL HYPERTENSION[SNOMED: 59532141] Zoya Varela MD, [facility] CPT-4: 35808 06/24/2013 ([id number]) 16690 EST. P ATIENT, LEVEL IV Diagnosis: ESSENTIAL HYPERTENSION[SNOMED: 06241232] Diagnosis: Leg pain[ICD9: 729.5] Diagnosis: Leg swelling[ICD9: 729.81] Zoya Varela MD, [facility] CPT-4: 64685 12/01/2012 ([id number]) 03741 EST. P ATIENT, LEVEL III Diagnosis: Shingles[ICD9: 053.9] Zoya Varela MD, [facility] CPT-4: 44187 10/19/2012 ([id number]) 56159 EST. P ATIENT, LEVEL IV Diagnosis: EDEMA[ICD9: 782.3] Diagnosis: ESSENTIAL HYPERTENSION[SNOMED: 61471313] Zoya Varela MD, [facility] CPT-4: 22966 10/07/2012 ([id number]) 06233 EST. P ATIENT, LEVEL IV Diagnosis: ESSENTIAL HYPERTENSION[SNOMED: 47676207] Diagnosis: EDEMA[ICD9: 782.3] Diagnosis: Irritable bowel disease[ICD9: 564.1] Zoya Varela MD, [facility] CPT-4: 86479 2012 ([id number]) 25499 EST. P ATIENT, LEVEL III Diagnosis: ESSENTIAL HYPERTENSION[SNOMED: 39778300] Zoya Varela MD, [facility] CPT-4: 00213 08/18/2012 ([id number]) 34046 EST. P ATIENT, LEVEL III Diagnosis: ESSENTIAL HYPERTENSION[SNOMED: 91793293] Zoya Varela MD, [facility] CPT-4: 77702 08/04/2012 ([id number]) 91561 EST. P ATIENT, LEVEL IV Diagnosis: ESSENTIAL HYPERTENSION[SNOMED: 91925132] Diagnosis: Lumbago[ICD9: 724.2] Diagnosis: HYPERLIPIDEMIA[ICD9: 272.4] Zoya Varela MD, [facility] CPT-4: 44436 07/01/2012 ([id number]) 66709 EST. P ATIENT, LEVEL III Diagnosis: ESSENTIAL HYPERTENSION[SNOMED: 22813579] Zoya Varela MD, [facility] CPT-4: 56058 05/20/2012 ([id number]) 39816 EST. P ATIENT, LEVEL IV Diagnosis: ESSENTIAL HYPERTENSION[SNOMED: 89680685] Diagnosis: Hot flash, menopausal[ICD9: 627.2] Zoya Varela MD, [facility] CPT- 4: 77204 04/20/2012 70714 EST. PATIENT, LEVEL IV Diagnosis: SPASM OF MUSCLE[ICD9: 728.85] Diagnosis: Back pain[ICD9: 724.5] Diagnosis: ESSENTIAL HYPERTENSION[SNOMED: 81754663] Zoya Varela MD, [facility] CPT-4: 23309 03/10/2012 ([id number]) 19738 EST. 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 P ATIENT, LEVEL III Diagnosis: ESSENTIAL HYPERTENSION[SNOMED: 52062137] Zoya Varela MD, [facility] CPT-4: 60865 02/19/2012 56358 EST. PATIENT, LEVEL IV Diagnosis: ESSENTIAL HYPERTENSION[SNOMED: 36689792] Diagnosis: Cough[ICD9: 786.2] Kacy Varela MD, [facility] CPT-4: 80846 01/23/2012 ([id number]) 45893 EST. P ATIENT, LEVEL IV Diagnosis: HYPERLIPIDEMIA[ICD9: 272.4] Diagnosis: ESSENTIAL HYPERTENSION[SNOMED: 58305001] Zoya Varela MD, [facility] CPT-4: 97430 01/02/2012 OFFICE VISIT, NEW - LEVEL 4 Diagnosis: ESSENTIAL HYPERTENSION[SNOMED: 95089005] Diagnosis: HYPERLIPIDEMIA[ICD9: 272.4] Diagnosis: IMPACTED CERUMEN[ICD9: 380.4] Diagnosis: Muscle spasm[ICD9: 728.85] Diagnosis: CHRONIC TENSION HEADACHE[ICD9: 339.12] Diagnosis: Neck pain, chronic[ICD9: 723.1] Diagnosis: Change in skin mole[ICD9: 216.9] Zoya Varela MD, [facility] CPT-4: 24048 12/20/2011 Plan of Care Planned Activity Notes [...] cold sores. 02/16/2019 Appointment: Zoya Varela WPtel: [address] [place], [place] [address] [place] (15 min) Moderate 02/16/2019 Patient Education: [...] of plan. 01/21/2019 Appointment: Kacy Moses WPtel: [phone] [phone] [place] (15 min) Moderate 01/21/2019 Patient Education: Patient Medication Summary Completed 01/21/2019 Appointment: Zoya Varela WPtel: [phone] [facility] (15 min) Moderate 12/15/2018 Visit Plan: Hypertension [...] to medications. 10/14/2018 Appointment: Zoya Varela WPtel: [phone] [facility] [place] (15 min) Moderate 10/14/2018 Patient Education: [...] metoprolol, will have pt go see her private watchman as we may need to consider stopping the beta ori completely versus potential need for pacemaker. 09/22/2018 Appointment: [phone] ([facility] min) Moderate 09/22/2018 Patient Education: Patient Medication Summary Completed 09/22/2018 Appointment: [phone] (15 min) Moderate 09/09/2018 Visit Plan: [...] she can be seen by Oncology in [place]. 06/08/2018 Appointment: [phone] [place] (15 min) Moderate 06/08/2018 Patient Education: Patient Medication Summary Completed 06/08/2018 Visit Plan: URI - Pt advised to inc rease fluids, vitamin C. Discussed natural and expected course of this diagnosis and need to alert me if symptoms do not follow expected course, or if any worse. RX sent to patient's pharmacy. 05/04/2018 Appointment: [phone] (30 min) Complex 05/04/2018 Patient Education: Patient [...] extremities. 02/04/2018 Appointment: [phone] [facility] [place] (15 min) Moderate 02/04/2018 Patient [...] Summary Completed 02/03/2018 Appointment: Laura Velasco WPtel: [facility]8 [facility] [facility] - Annual Wellness Visit 01/28/2018 Appointment: Zoya Varela WPtel: [phone] [facility] (15 min) Moderate 01/15/2018 Visit Plan: Hypertension [...] Dr. [place]. 09/17/2017 Appointment: [phone] (15 min) Moderate 09/17/2017 Patient Education: Patient Medication Summary Completed 09/17/2017 Patient Education: Obesity Completed 09/17/2017 Patient Education: Hypertension Completed 09/17/2017 Care Plan: SCREENINGMAMMOGRAPHYDIGITAL LOINC : 06286-4 Pending 09/17/2017 Visit Plan: Poison Sarah -kenalog inj ection today in the office-start prednisone tomorrow pt is to use topical treatments as directed. Pt is cleanse clothing in hot water with soap, and call if symptoms do not improve or if they worsen. 06/23/2017 Appointment: Kacy Moses WPtel: [address] [place], [place] [phone] (15 min) Moderate 06/23/2017 Patient Education: Patient Medication Summary Completed 06/23/2017 Visit Plan: Hypertension - well [place] robbins [...] to medications. 05/13/2017 Appointment: Zoya Varela WPtel: [address] [place], [place] [phone] (15 min) Moderate 05/13/2017 Patient Education: Patient [...] they worsen. 03/21/2017 Appointment: Kacy Moses WPtel: [facility]5 [phone] (15 min) Moderate 03/21/2017 Patient Education: [...] pain. 03/19/2017 Appointment: Laura Velasco WPtel: [phone] [facility] (15 min) Moderate 03/19/2017 Patient Education: [...] in hearing. 01/22/2017 Appointment: Laura Velasco WPtel: [facility]8 [facility] [place] [address] - Annual Wellness Visit 01/22/2017 Appointment: Nurse [...] at home. 01/14/2017 Appointment: Zoya Varela WPtel: [facility]0 [facility] (15 min) Moderate 01/14/2017 Patient Education: Patient [...] of plan. 09/23/2016 Appointment: [phone] [place] (15 min) Moderate 09/23/2016 Patient Education: [...] to medications. 09/16/2016 Appointment: Zoya Varela [facility]Ptel[phone] (15 min) Moderate 09/16/2016 Patient Education: Patient Medication Summary Completed 09/16/2016 Patient Education: Obesity Completed 09/16/2016 Care Plan: SCREENINGMAMMOGRAPHYDIGITAL LOINC : 95104-4 Pending 09/16/2016 Visit Plan: Cracked/painful lips-ba cterial [...] any worse. 06/25/2016 Appointment: Kacy Moses WPtel: [facility]5 [address] (15 min) Moderate 06/25/2016 Patient Education: Patient [...] allergy spray. 04/03/2016 Appointment: Kacy Moses WPtel: [facility]5 [phone] (30 min) Complex 04/03/2016 Patient Education: [...] Completed 03/13/2016 Appointment: Zoya Varela WPtel: [phone] [facility] (15 min) Moderate 02/28/2016 Appointment: Zoya Varela WPtel: [phone] [facility] (15 min) Moderate 02/01/2016 Visit Plan: Hypertension [...] for treatment. 01/30/2016 Appointment: [facility]el[phone] (15 min) Moderate 01/30/2016 Patient Education: [...] home. 02/06/2015 Appointment: [facility]el[phone] Follow up 02/06/2015 Patient Education: Patient [...] edema. 01/10/2015 Appointment: Zoya Varela [facility]Ptel: [phone] [facility] 01/10/2015 Patient Education: Patient Medication Summary Completed [...] starting to become less controlled. 07/19/2014 Appointment: NicholeLiy [facility]Ptel[phone] [facility] Follow up 07/19/2014 Patient Education: Patient Medication Summary Completed 07/19/2014 Patient Education: Hypertension Completed 07/19/2014 Care Plan: SCREENINGMAMMOGRAPHYDIGITAL LOINC : 30331-2 Ordered 07/19/2014 Visit Plan: Left ankle pain-sprain- [...] at home. 04/19/2014 Appointment: Kacy Moses WPtel: [phone] Diabetic education 04/19/2014 Patient Education: Patient Medication [...] to medications. 04/11/2014 Appointment: Zoya Varela WPtel: [phone] [facility] Follow up 04/11/2014 Patient Education: Patient Medication [...] spray in the nasal steroid allergy spray. Mbzupnd-cglyalchthiy-mxmgkyr xanax at bedtime Esophageal Reflux - the patient has been counseled against excessive intake of caffiene, spicy foods, peppermint, and cinnamon - all of which can exacerbate esophageal reflux. The patient is to take medications as prescribed and call the office if the symptoms are not improving. 03/10/2014 Appointment: Zoya Varela [facility]Ptel[phone] Other 03/10/2014 Patient Education: Patient Medication [...] allergy spray. 02/02/2014 Appointment: Kacy Moses WPtel: [phone] [facility] [place] [address] 02/02/2014 Patient Education: Patient Medication Summary Completed [...] the site. 10/25/2013 Appointment: Zoya Varela WPtel: [facility] Follow [facility] 10/25/2013 Patient Education: Patient [...] BEDTIME 08/24/2013 Appointment: Zoya Varela [facility]Ptel: [phone] [facility] Follow up 08/24/2013 Patient Education: Patient [...] concerns. 07/26/2013 Appointment: Zoya Varela [facility]Ptel[phone] Follow up 07/26/2013 Patient Education: Patient [...] NOT IMPROVE. 06/30/2013 Appointment: Zoya Varela WPtel: [address] [place], [place] [phone] Other 06/30/2013 Patient Education: Patient Medication Summary [...] acute concerns. 06/24/2013 Appointment: Kacy Moses WPtel: [address] [place], [place] [phone] [place] [address] Follow up 06/24/2013 Patient Education: Patient Medication Summary Completed 06/24/2013 Patient Education: Hypertension Completed 06/24/2013 Appointment: Zoya Varela WPtel: [address] [place], [place] [phone] Other 03/23/2013 Visit Plan: Hypotension - pt is on chronic antihypertensive medication - the medication has been adjusted down to attempt to alleviate the low blood pressures. Leg pain - Leg swelling - pt to have ultrasound on her right lower leg due to post-operative swelling and pain. 12/01/2012 Appointment: Zoya Varela WPtel: [address] [place], [place] [phone] Follow up 12/01/2012 Patient Education: Patient Medication Summary Completed 12/01/2012 Patient Education: Hypertension Completed 12/01/2012 Appointment: Zoya Varela WPtel: [address] [place], [place] [phone] [place] Follow up 10/20/2012 Visit Plan: Shingles [...] considered contagious. 10/19/2012 Appointment: Zoya Varela WPtel: [facility]2 [address] Other 10/19/2012 Patient Education: Patient Medication Summary [...] peripheral edema. 10/07/2012 Appointment: Kacy Moses WPtel: [facility]1 [phone] Other 10/07/2012 Patient Education: Hypertension Completed 10/07/2012 [...] peripheral edema. 2012 Appointment: Zoya Varela WPtel: [facility]7 [facility]66[facility] Other 2012 Patient Education: Patient Medication Summary [...] EVENING. 08/18/2012 Appointment: Zoya Varela WPtel: [phone] [facility] Follow up 08/18/2012 Patient Education: Patient Medication [...] knees. 08/04/2012 Appointment: [facility]el[phone] Follow [facility] 08/04/2012 Patient Education: Patient [...] twice daily. 07/01/2012 Appointment: Zoya Varela WPtel: [phone] [facility] Other 07/01/2012 Patient Education: Patient Medication Summary [...] two weeks 05/20/2012 Appointment: Zoya Varela WPtel: [phone] [facility] [place] Follow up 05/20/2012 Patient Education: Patient Medication Summary Completed 05/20/2012 Patient Education: High Blood Pressure: Essential Hypertension Completed 05/20/2012 Appointment: Zoya Varela WPtel: [facility]6 [facility] [place] Other 05/11/2012 Visit Plan: Hypertension - [...] bid dosing. 04/20/2012 Appointment: Zoya Varela WPtel: [phone] [facility] [place] Follow up 04/20/2012 Patient Education: Patient Medication [...] few weeks. 03/10/2012 Appointment: Zoya Varela WPtel: [address] [place], [place] [id number] Other 03/10/2012 Patient Education: Patient Medication Summary [...] with codeine. 02/25/2012 Appointment: Zoya Varela WPtel: [facility] Other 02/25/2012 Patient Education: Patient Medication [...] office. 02/19/2012 Appointment: Zoya Varela WPtel: [phone] [place] Other 02/19/2012 Patient Education: Patient Medication Summary [...] the office 01/23/2012 Appointment: [facility]el: [phone] [place] Other 01/23/2012 Patient Education: Patient Medication Summary [...] TWICE DAILY. 01/02/2012 Appointment: Zoya Varela WPtel: [address] [place], [place] [address] Other 01/02/2012 Patient Education: Patient Medication Summary [...] 2 wks. 12/20/2011 Appointment: [facility] Varela [facility]Ptel[phone] New Patient 12/20/2011 Patient Education: Patient [...] metoprolol, will have pt go see her private watchman as we may need to consider stopping [...] she can be seen by Oncology in [place]. . Tick - tick with h ead [...] spray in the nasal steroid allergy spray. Eumdggi-vjlwiabltpul-tcdmpzx xanax at bedtime Esophageal Reflux - the [...]
--- OUTSIDE RECORDS SUMMARY | 2020-05-26 02:52 | XMS REPORT | CCD ---
Author Author Natali Varela Organization [facility] Address [address] [place] [address] Phone Care Team Providers Care Learning And Development Consultant Name Role Phone PP Unavailable CCM Unavailable Summary Purpose Interface Exchange Insurance Providers Payer name Policy type / Coverage type Covered constitution party ID Effective Begin Date Effective End Date WPS Medicare Part B Medicare Part B [id number] Unknown [employer] INSURANCE [employer] Medicare Part B [id number] Unknown Family history Mother Diagnosis Age At Onset Liver Failure Unknown Diabetes mellitus Type 2 Unknown Hyperlipidemia Unknown Hypertension Unknown Cancer Unknown Arthritis Unknown Father Diagnosis Age At Onset Liver Failure Unknown Cancer Unknown Social History Social History Element Codes Description Effective Dates Marital status Unknown M arried 12/12/2011 Number of children Unknown 3 12/12/[address]: 6760704 Former smoker quit in 199212/12/2011 Allergies, Adverse [...] Date Stop Date Sta tus Fill Instructions atorvastatin 20 mg t ablet RxNorm: 138651 TAKE ONE TABLET BY [facility] DAILY 03/26/2019 09/21/2019 Ac tive metoprolol tartrate 100 mg tablet RxNorm: 660871 1.5 Tablet(s) BID 02/16/2019 04/10/2020 Active doxazosin 4 mg tablet RxNorm: 818387 1 Tablet(s) UD 1.5 tab in AM and 1 tab a t hs 02/16/2019 09/13/2019 Ac tive acyclovir 800 mg tablet RxNorm: 373808 1 Tablet(s) PO TID take for cold sore ou tbreaks 02/16/2019 04/26/2019 Active Xanax 0.25 mg tablet RxNorm: 758429 1/2-1 Tablet(s) PO QDAY PRN 02/03/2019 05/03/2019 Active cyclobenzaprine 10 m g tablet RxNorm: 013728 TAKE ONE TABLET BY [facility] EVERY 8 HOURS NEEDED 01/27/2019 03/07/2019 Inactive doxazosin 4 mg tablet RxNorm: 523434 Tablet(s) TAKE ONE TABLET BY MOUTH TWO T IMES A DAY 01/21/2019 02/15/2019 Inactive doxazosin 4 mg tablet RxNorm: 733186 Tablet(s) TAKE ONE AND ONE-HALF (1 & 1/2 ) TABLET BY MOUTH BY MOUTH TWO TIMES A DAY 11/12/2018 01/20/2019 Inactive cyclobenzaprine 10 m g tablet RxNorm: 029642 TAKE ONE TABLET BY [facility] EVERY 8 HOURS NEEDED 11/12/2018 12/01/2018 Inactive tramadol 50 mg tablet RxNorm: 236481 1-2 Tablet(s) PO Q8 as needed 10/02/2018 11/30/2018 In active metoprolol tartrate 100 mg tablet RxNorm: 856698 1 Tablet(s) BID 09/22/2018 02/15/2019 Inactive metoprolol tartrate 100 mg tablet RxNorm: 254516 TAKE ONE AND ONE-HALF (1 1/2) TABLETS BY MOUTH EVERY MORNING AND TAKE TWO TABLETS BY MOUTH EVERY EVENING 09/21/2018 09/21/2018 In active Xanax 0.25 mg tablet RxNorm: 624632 1/2-1 Tablet(s) PO QDAY PRN 08/19/2018 11/15/2018 Inactive cyclobenzaprine 10 m g tablet RxNorm: 297596 TAKE ONE TABLET BY MO [facility] EVERY 8 HOURS NEEDED 07/01/2018 08/09/2018 Inactive atorvastatin 20 mg t ablet RxNorm: 997409 TAKE ONE TABLET BY MO UTH DAILY 06/29/2018 12/25/2018 In active atorvastatin 20 mg t ablet RxNorm: 215170 TAKE ONE TABLET BY MO UTH DAILY 06/29/2018 06/28/2018 In active pilocarpine 5 mg tablet RxNorm: 7092759 1 Tablet(s) PO BID 06/09/2018 06/08/2018 Inactive pilocarpine 5 mg tablet RxNorm: 6143225 1 Tablet(s) PO BID for dry mouth 06/09/2018 09/21/2018 In active Evoxac 30 mg capsule RxNorm: 974333 1 Capsule(s) PO BID as needed dry mouth 06/08/2018 06/08/2018 In active may substitute generic cyclobenzaprine 10 m g tablet RxNorm: 610375 TAKE ONE TABLET BY [facility] EVERY 8 HOURS NEEDED 05/14/2018 06/30/2018 Inactive amoxicillin 500 mg c apsule RxNorm: 793068 1 Capsule(s) PO BID 05/04/2018 05/13/2018 Inactive amoxicillin 500 mg c apsule RxNorm: 967182 1 Capsule(s) PO BID 05/04/2018 05/03/2018 Inactive tramadol 50 mg tablet RxNorm: 769344 1-2 Tablet(s) PO Q8 as needed 04/24/2018 06/21/2018 In active Kenalog 40 mg/mL sylvia pension for injection RxNorm: 9105159 Milliliter(s) Inj 04/24/2018 04/24/2018 In active amlodipine 5 mg tablet RxNorm: 656465 Tablet(s) TAKE ONE TABLET BY MOUTH DAILY 04/02/2018 03/27/2019 Ac tive Xanax 0.25 mg tablet RxNorm: 240956 1/2-1 Tablet(s) PO QDAY PRN 04/02/2018 10/13/2018 Inactive metoprolol tartrate 100 mg tablet RxNorm: 668784 TAKE ONE AND ONE-HALF (1 1/2) TABLETS BY MOUTH EVERY MORNING AND TAKE TWO TABLETS BY MOUTH EVERY EVENING 02/25/2018 09/20/2018 In active Keflex 500 mg capsule RxNorm: 968010 1 Capsule(s) PO TID 02/06/2018 02/15/2018 Inactive Keflex 500 mg capsule RxNorm: 536605 1 Capsule(s) PO TID 02/06/2018 02/05/2018 Inactive Zithromax Z-Kush 250 mg tablet RxNorm: 981901 1 Tablet(s) PO UD 02/02/2018 02/06/2018 Inactive 2 tabs on day 1 then 1 tab daily on days 2-5 doxazosin 4 mg tablet RxNorm: 808428 TAKE ONE AND ONE-HALF (1 & 1/2) TABLET B Y MOUTH BY MOUTH TWO TIMES A DAY 01/16/2018 11/11/2018 Inactive atorvastatin 20 mg t ablet RxNorm: 275085 TAKE ONE TABLET BY MO [facility] DAILY 12/31/2017 06/28/2018 In active furosemide 20 mg tablet RxNorm: 793365 TAKE ONE TABLET BY MOUTH DAILY NEEDED FOR EDEMA 12/26/2017 06/23/2018 Inactive potassium chloride E R 10 mEq tablet,extended release RxNorm: 297721 TAKE ONE TABLET BY MOUTH NEEDED WITH LASIX 12/26/2017 06/23/2018 Inactive Xanax 0.25 mg tablet RxNorm: 506968 1/2-1 Tablet(s) PO QDAY PRN 11/27/2017 08/18/2018 Inactive cyclobenzaprine 10 m g tablet RxNorm: 636214 TAKE ONE TABLET BY MO [facility] EVERY 8 HOURS NEEDED 11/21/2017 02/08/2018 Inactive tramadol 50 mg tablet RxNorm: 549515 1-2 Tablet(s) PO Q8 as needed 10/28/2017 01/23/2018 In active metoprolol tartrate 100 mg tablet RxNorm: 631082 TAKE ONE AND ONE-HALF (1 1/2) TABLETS BY MOUTH EVERY MORNING AND TAKE TWO TABLETS BY MOUTH EVERY EVENING 10/28/2017 02/24/2018 In active cyclobenzaprine 10 m g tablet RxNorm: 925817 TAKE ONE TABLET BY MO U[facility] EVERY 8 HOURS NEEDED 08/27/2017 10/25/2017 Inactive Xanax 0.25 mg tablet RxNorm: 342913 1/2-1 Tablet(s) PO QDAY PRN 08/04/2017 04/01/2018 Inactive cyclobenzaprine 10 m g tablet RxNorm: 726800 TAKE ONE TABLET BY MO UTH EVERY 8 HOURS NEEDED 07/28/2017 08/16/2017 Inactive metoprolol tartrate 100 mg tablet RxNorm: 562219 TAKE ONE AND ONE-HALF (1 & 1/2) TABLET BY MOUTH EVERY MORNING AND TAKE TWO TABLETS BY MOUTH EVERY EVENING 07/28/2017 10/25/2017 In active cyclobenzaprine 10 m g tablet RxNorm: 106280 TAKE ONE TABLET BY MO UT EVERY 8 HOURS NEEDED 06/30/2017 07/19/2017 Inactive prednisone 10 mg tab lets in a dose pack RxNorm: 107812 1 Tablet(s) PO UD 06/23/2017 06/28/2017 In active 6-5-4-3-2-1 mupirocin 2 % topica l ointment RxNorm: 459822 1 Application TOP BID 06/23/2017 07/02/2017 Inactive Kenalog 40 mg/mL sylvia pension for injection RxNorm: 6707247 Milliliter(s) Inj 06/23/2017 06/23/2017 In active cyclobenzaprine 10 m g tablet RxNorm: 766615 TAKE ONE TABLET BY MO [facility] EVERY 8 HOURS NEEDED 06/09/2017 06/28/2017 Inactive meclizine 25 mg tablet RxNorm: 941188 1 Tablet(s) PO Q6 PRN as needed 1/2 - 1 pill every 6 hours as needed for vertigo 06/03/2017 07/14/2017 Inactive atorvastatin 20 mg t ablet RxNorm: 919323 TAKE ONE TABLET BY MO UTH DAILY 05/30/2017 11/25/2017 In active amlodipine 5 mg tablet RxNorm: 640533 TAKE ONE TABLET BY MOUTH DAILY 05/15/2017 04/01/2018 In active cyclobenzaprine 10 m g tablet RxNorm: 177948 TAKE ONE TABLET BY MO UTH EVERY 8 HOURS NEEDED 05/07/2017 05/26/2017 Inactive tramadol 50 mg tablet RxNorm: 630905 1-2 Tablet(s) PO Q8 as needed 04/07/2017 07/04/2017 In active cyclobenzaprine 10 m g tablet RxNorm: 701113 TAKE ONE TABLET BY MO UTH EVERY 8 HOURS NEEDED 04/07/2017 04/26/2017 Inactive Xanax 0.25 mg tablet RxNorm: 991316 1/2-1 Tablet(s) PO QDAY PRN 04/04/2017 06/02/2017 Inactive metoprolol tartrate 100 mg tablet RxNorm: 700998 TAKE ONE AND ONE-HALF (1 & 1/2) TABLET BY MOUTH EVERY MORNING AND TAKE TWO TABLETS BY MOUTH EVERY EVENING 03/28/2017 07/25/2017 In active prednisone 10 mg tab lets in a dose pack RxNorm: 214318 1 Tablet(s) PO UD 03/21/2017 03/26/2017 In active 6-5-4-3-2-1 Kenalog 40 mg/mL sylvia pension for injection RxNorm: 4365682 2 Milliliter(s) Inj 03/21/2017 03/21/2017 In active doxycycline hyclate 100 mg capsule RxNorm: 9567074 1 Capsule(s) PO BID 03/19/2017 03/28/2017 In active cyclobenzaprine 10 m g tablet RxNorm: 015797 TAKE ONE TABLET BY MO UTH EVERY 8 HOURS NEEDED 02/25/2017 03/16/2017 Inactive triamcinolone aceton pineda 0.1 % topical ointment RxNorm: 2241609 1 Application TOP TI D 02/21/2017 02/20/2017 Inactive triamcinolone aceton pineda 0.1 % topical ointment RxNorm: 0708290 1 Application TOP TI D 02/21/2017 03/02/2017 Inactive doxazosin 4 mg tablet RxNorm: 628059 TAKE ONE AND ONE-HALF (1 & 1/2) TABLET B Y MOUTH BY MOUTH TWO TIMES A DAY 02/14/2017 01/09/2018 Inactive cyclobenzaprine 10 m g tablet RxNorm: 641196 TAKE ONE TABLET BY MO UTH EVERY 8 HOURS NEEDED 01/27/2017 02/15/2017 Inactive ammonium lactate 12 % topical cream RxNorm: 050757 1 Application TOP BID 01/14/2017 02/12/2017 In active dispense one bottle of the cream potassium chloride E R 10 mEq tablet,extended release RxNorm: 177321 1 Tablet(s) PO PRN as needed with lasix 11/13/2016 12/25/2017 Inactive prn swelling furosemide 20 mg tablet RxNorm: 698630 1 Tablet(s) PO daily as needed edema 11/13/2016 01/11/2017 In active metoprolol tartrate 100 mg tablet RxNorm: 396330 TAKE ONE AND ONE-HALF (1 & 1/2) TABLET BY MOUTH EVERY MORNING AND TAKE TWO TABLETS BY MOUTH EVERY EVENING 11/01/2016 03/27/2017 In active atorvastatin 20 mg t ablet RxNorm: 321580 TAKE ONE TABLET BY MO UTH DAILY 10/31/2016 04/28/2017 In active cyclobenzaprine 10 m g tablet RxNorm: 305251 TAKE ONE TABLET BY MO UTH EVERY 8 HOURS NEEDED 10/25/2016 12/03/2016 Inactive Lyrica 25 mg capsule RxNorm: 182283 1 Tablet(s) PO BID 09/23/2016 01/13/2017 Inactive Lyrica 50 mg capsule RxNorm: 028691 1 Capsule(s) PO BID 09/16/2016 01/13/2017 Inactive amlodipine 5 mg tablet RxNorm: 839682 Tablet(s) TAKE ONE TABLET BY MOUTH DAILY 08/28/2016 05/14/2017 In active cyclobenzaprine 10 m g tablet RxNorm: 982854 TAKE ONE TABLET BY MO UTH EVERY 8 HOURS NEEDED 08/05/2016 09/13/2016 Inactive Xanax 0.25 mg tablet RxNorm: 045057 1/2-1 Tablet(s) PO QDAY PRN 07/16/2016 04/03/2017 Inactive amlodipine 5 mg tablet RxNorm: 279464 TAKE ONE TABLET BY MOUTH DAILY 06/28/2016 08/26/2016 In active metoprolol tartrate 100 mg tablet RxNorm: 364196 Tablet(s) TAKE ONE AN D ONE-HALF (1 & 1/2) TABLET BY MOUTH EVERY MORNING AND TAKE TWO TABLETS BY MOUTH EVERY EVENING 05/02/2016 05/02/2016 Inactive metoprolol tartrate 100 mg tablet RxNorm: 301334 Tablet(s) PO TAKE ONE AND ONE-HALF (1 & 1/2) TABLET BY MOUTH EVERY MORNING AND TAKE TWO TABLETS BY MOUTH EVERY EVENING 05/02/2016 05/01/2016 Inactive metoprolol tartrate 100 mg tablet RxNorm: 940325 Tablet(s) PO TAKE ONE AND ONE-HALF (1 & 1/2) TABLET BY MOUTH EVERY MORNING AND TAKE TWO TABLETS BY MOUTH EVERY EVENING 05/02/2016 10/28/2016 Inactive atorvastatin 20 mg t ablet RxNorm: 636055 TAKE ONE TABLET BY MO UTH DAILY 04/25/2016 10/21/2016 In active tramadol 50 mg tablet RxNorm: 504835 1-2 Tablet(s) PO Q8 as needed 04/25/2016 10/27/2017 In active cyclobenzaprine 10 m g tablet RxNorm: 993751 Tablet(s) PO TAKE ONE TABLET BY MOUTH EVERY 8 HOURS NEEDED 04/18/2016 06/16/2016 Inactive Kenalog 40 mg/mL sylvia pension for injection RxNorm: 7629307 1 Milliliter(s) Inj 04/04/2016 04/04/2016 In active Phenergan with Codei ne Syrup RxNorm: PO 04/03/2016 02/15/2019 Inactive Zithromax Z-Kush 250 mg tablet RxNorm: 553509 1 Tablet(s) PO UD 04/03/2016 04/07/2016 Inactive 2 tabs on day 1 then 1 tab daily on days 2-5 amlodipine 5 mg tablet RxNorm: 654627 TAKE ONE TABLET BY MOUTH DAILY 03/27/2016 06/24/2016 In active Flexeril 10 mg tablet RxNorm: 341900 TAKE ONE TABLET BY MOUTH EVERY 8 HOURS A S NEEDED 03/14/2016 04/02/2016 Inactive Vitamin B-12 ER 2,00 0 mcg tablet,extended release RxNorm: 686126 1 Tablet(s) PO daily 03/13/2016 No Stop Date Active Vitamin B-12 ER 2,00 0 mcg tablet,extended release RxNorm: 227055 1 Tablet(s) PO daily 03/13/2016 No Stop Date Active gabapentin 100 mg ca psule RxNorm: 984241 1 Capsule(s) PO BID 03/13/2016 09/15/2016 Inactive Flexeril 10 mg tablet RxNorm: 746223 Tablet(s) TAKE ONE TABLET BY MOUTH EVERY 8 HOURS NEEDED 02/08/2016 02/27/2016 Inactive Xanax 0.25 mg tablet RxNorm: 744185 1/2-1 Tablet(s) PO QDAY PRN 02/08/2016 07/15/2016 Inactive amlodipine 5 mg tablet RxNorm: 984797 1 Tablet(s) PO daily 02/06/2016 03/26/2016 Inactive furosemide 20 mg tablet RxNorm: 526205 1 Tablet(s) PO daily 01/30/2016 06/16/2016 Inactive amlodipine 10 mg tablet RxNorm: 465553 1/2 Tablet(s) PO daily 01/30/2016 02/05/2016 Inactive doxazosin 4 mg tablet RxNorm: 122597 1.5 Tablet(s) PO BID 01/30/2016 01/23/2017 Inactive Flexeril 10 mg tablet RxNorm: 274415 TAKE ONE TABLET BY MOUTH EVERY 8 HOURS A S NEEDED 01/10/2016 01/29/2016 Inactive potassium chloride E R 10 mEq tablet,extended release RxNorm: 921953 1 Tablet(s) PO PRN as needed with lasix 12/25/2015 06/16/2016 Inactive prn swelling amlodipine 10 mg tablet RxNorm: 874867 TAKE ONE TABLET BY MOUTH EVERY MORNING 12/25/2015 12/24/2015 In active amlodipine 10 mg tablet RxNorm: 419618 TAKE ONE TABLET BY MOUTH EVERY MORNING 12/25/2015 01/29/2016 In active furosemide 20 mg tablet RxNorm: 149877 1/2 Tablet(s) PO daily as needed edema 12/21/2015 01/19/2016 In active pt needs to take 10meq potassium on days she takes the lasix metoprolol tartrate 100 mg tablet RxNorm: 387776 TAKE ONE AND ONE-HALF (1 & 1/2) TABLET BY MOUTH EVERY MORNING AND TAKE TWO TABLETS BY MOUTH EVERY EVENING 11/08/2015 12/07/2015 In active Flonase Allergy Reli ef 50 mcg/actuation nasal spray,suspension RxNorm: [place] as needed PLACE 2 SPRAYS IN EACH NOSTRIL DAILY 10/09/2015 02/05/2016 Inactive Flexeril 10 mg tablet RxNorm: 869736 1 Tablet(s) PO TID PRN TAKE ONE TABLET B Y MOUTH EVERY 8 HOURS NEEDED 10/09/2015 12/07/2015 Inactive alprazolam 0.5 mg ta blet RxNorm: 492623 TAKE ONE TABLET BY MO UT AT BEDTIME NEEDED FOR ANXIETY 08/29/2015 11/23/2015 Inactive Flonase Allergy Reli ef 50 mcg/actuation nasal spray,suspension RxNorm: PLACE 2 SPRAYS IN EACH NOSTRIL DAILY 07/06/2015 10/08/2015 Inactive Kenalog 40 mg/mL sylvia pension for injection RxNorm: 9152212 Milliliter(s) Inj 06/12/2015 06/12/2015 In active prednisone 10 mg tab lets in a dose pack RxNorm: 062121 1 Tablet(s) PO UD 06/12/2015 06/17/2015 In active 6-5-4-3-2-1 acyclovir 800 mg tablet RxNorm: 481608 1 Tablet(s) PO TID 06/12/2015 06/21/2015 Inactive Xanax 0.25 mg tablet RxNorm: 949258 1/2-1 Tablet(s) PO QDAY PRN 05/15/2015 02/07/2016 Inactive Flonase Allergy Reli ef 50 mcg/actuation nasal spray,suspension RxNorm: 2 [place] NASAL daily 05/15/2015 06/13/2015 Inactive Kenalog 40 mg/mL sylvia pension for injection RxNorm: 3443255 Milliliter(s) Inj 05/15/2015 05/15/2015 In active metoprolol tartrate 100 mg tablet RxNorm: 075264 TAKE ONE AND ONE-HALF (1 & 1/2) TABLET BY MOUTH EVERY MORNING AND TAKE TWO TABLETS BY MOUTH EVERY EVENING 05/07/2015 06/05/2015 In active metoprolol tartrate 100 mg tablet RxNorm: 062418 TAKE ONE AND ONE-HALF (1 & 1/2) TABLET BY MOUTH EVERY MORNING AND TAKE TWO TABLETS BY MOUTH EVERY EVENING 04/05/2015 05/04/2015 In active amlodipine 10 mg tablet RxNorm: 222932 TAKE ONE TABLET BY MOUTH EVERY MORNING 03/10/2015 12/04/2015 In active alprazolam 0.5 mg ta blet RxNorm: 555058 TAKE ONE TABLET BY MO UT EVERY NIGHT AT BEDTIME NEEDED FOR ANXIETY 02/23/2015 03/24/2015 Inactive (Response to an electronic controlled substance refill request - RxReferenceNumber: [id number]) alprazolam 0.5 mg ta blet RxNorm: 456485 1 Tablet(s) PO QHS as needed anxiety 02/23/2015 08/29/2015 In active (Response to an electronic controlled salas bstance refill request - RxReferenceNumber: [id number]) doxazosin 4 mg tablet RxNorm: 450520 TAKE ONE TABLET BY MOUTH TWICE A DAY 02/13/2015 01/29/2016 In active atorvastatin 20 mg t ablet RxNorm: 493431 TAKE ONE TABLET BY MO UTH EVERY DAY 01/19/2015 07/17/2015 In active atorvastatin 20 mg t ablet RxNorm: 831030 Tablet(s) TAKE ONE TA BLET BY MOUTH EVERY DAY 01/19/2015 01/18/2015 Inactive [SAVINGS FOR NON-COVERED DRUGS -- BIN:00 3585, PCN: ASPROD1, Group: XXXXX, ID# [id number], Questions: . THIS IS NOT INSURANCE.] Maxzide-25mg 37.5 mg -25 mg tablet RxNorm: 34964 1 Tablet(s) PO daily 01/10/2015 10/08/2015 Inactive [SAVINGS FOR NON-COVERED DRUGS -- BIN:00 3585, PCN: ASPROD1, Group: XXXXX, ID# [id number], Questions: . THIS IS NOT INSURANCE.] metoprolol tartrate 100 mg tablet RxNorm: 142311 TAKE ONE AND ONE-HALF (1 & 1/2) TABLET BY MOUTH EVERY MORNING AND TAKE TWO TABLETS BY MOUTH EVERY EVENING 12/05/2014 01/03/2015 In active Flexeril 10 mg tablet RxNorm: 432921 TAKE ONE TABLET BY MOUTH EVERY 8 HOURS A S NEEDED 10/31/2014 06/27/2015 Inactive alprazolam 0.5 mg ta blet RxNorm: 167021 1 Tablet(s) PO QHS TA KE ONE TABLET BY MOUTH EVERY NIGHT AT BEDTIME AND NEEDED FOR PANIC ATTACKS 10/21/2014 10/23/2014 Inactive (Appended: Controlled substance eRx refi ll - RxReferenceNumber: [id number]) alprazolam 0.5 mg ta blet RxNorm: 358887 TAKE ONE TABLET BY MO UTH EVERY NIGHT AT BEDTIME NEEDED FOR ANXIETY 10/20/2014 11/18/2014 Inactive (Response to an electronic controlled substance refill request - RxReferenceNumber: [id number]) amlodipine 10 mg tablet RxNorm: 936543 1 Tablet(s) PO QAM 09/09/2014 03/07/2015 Inactive now taking full tab [SAVINGS FOR UNINSURED PATIENTS -- BIN:909132, PCN: ASPROD1, Group: [id number], ID# [id number], Process claim through [employer], for questions: . THIS IS NOT INSURANCE.] metoprolol tartrate 100 mg tablet RxNorm: 748963 TAKE ONE AND ONE-HALF (1 & 1/2) TABLET BY MOUTH EVERY MORNING AND TAKE TWO TABLETS BY MOUTH EVERY EVENING 09/03/2014 10/02/2014 In active alprazolam 0.5 mg ta blet RxNorm: 398415 TAKE ONE TABLET BY MO UTH EVERY NIGHT AT BEDTIME AND NEEDED FOR PANIC ATTACKS 08/29/2014 09/12/2014 Inactive (Response to an electronic controlled substance refill request - RxReferenceNumber: [id number]) Zithromax Z-Kush 250 mg tablet RxNorm: 367133 1 Tablet(s) PO UD 07/26/2014 07/25/2014 Inactive 2 tabs on day 1 then 1 tab daily on days 2-5 Zithromax Z-Kush 250 mg tablet RxNorm: 947302 1 Tablet(s) PO UD 07/26/2014 07/30/2014 Inactive 2 tabs on day 1 then 1 tab daily on days 2-5 alprazolam 0.5 mg ta blet RxNorm: 891255 Tablet(s) PO TAKE ONE TABLET BY MOUTH EVERY NIGHT AT BEDTIME AND NEEDED FOR PANIC ATTACKS 07/08/2014 08/30/2014 Inactive (Appended: Controlled substance eRx refill - RxReferenceNumber: [id number]) atorvastatin 20 mg t ablet RxNorm: 067966 TAKE ONE TABLET BY MO UTH EVERY DAY 04/25/2014 01/18/2015 In active Carafate 1 gram tablet RxNorm: 383896 Tablet(s) PO TAKE ONE TABLET BY MOUTH FO UR TIMES A DAY 04/14/2014 10/08/2015 Inactive Fish Oil 1,000 mg ca psule RxNorm: 1 Capsule(s) PO TID 04/13/2014 10/08/2015 Inactive Flexeril 10 mg tablet RxNorm: 680568 1 Tablet(s) PO Q8 PRN 04/01/2014 04/10/2014 Inactive Carafate 1 gram tablet RxNorm: 686626 1 Tablet(s) PO QID 03/10/2014 02/15/2019 Inactive chlordiazepoxide-cli dinium 5 mg-2.5 mg capsule RxNorm: 298771 1 Capsule(s) PO TID P RN 03/10/2014 04/10/2014 Inactive doxazosin 4 mg tablet RxNorm: 348528 1 Tablet(s) PO BID 02/02/2014 02/12/2015 Inactive Kenalog 40 mg/mL sylvia pension for injection RxNorm: 0456424 Milliliter(s) Inj 02/02/2014 02/02/2014 In active atorvastatin 20 mg t ablet RxNorm: 634325 Tablet(s) PO TAKE ONE TABLET BY MOUTH EVERY DAY 01/10/2014 04/24/2014 Inactive alprazolam 0.5 mg ta blet RxNorm: 290256 Tablet(s) PO TAKE ONE TABLET BY MOUTH EVERY NIGHT AT BEDTIME AND NEEDED FOR PANIC ATTACKS 01/10/2014 07/07/2014 Inactive (Appended: Controlled substance eRx refill - RxReferenceNumber: [id number]) alprazolam 0.5 mg ta blet RxNorm: 923257 1 Tablet(s) PO QHS TA KE ONE TABLET BY MOUTH EVERY NIGHT AT BEDTIME AND NEEDED FOR PANIC ATTACKS 01/10/2014 10/20/2014 Inactive (Appended: Controlled substance eRx refi ll - RxReferenceNumber: [id number]) alprazolam 0.5 mg ta blet RxNorm: 914373 Tablet(s) PO TAKE ONE TABLET BY MOUTH EVERY NIGHT AT BEDTIME AND NEEDED FOR PANIC ATTACKS 01/10/2014 01/09/2014 Inactive (Appended: Controlled substance eRx refill - RxReferenceNumber: [id number]) Carafate 1 gram tablet RxNorm: 655026 1 Tablet(s) PO QID 12/16/2013 01/14/2014 Inactive Nexium 40 mg capsule ,delayed release RxNorm: 333723 Capsule(s) PO TAKE ON E CAPSULE BY MOUTH EVERY DAY 11/25/2013 03/12/2016 Inactive doxazosin 4 mg tablet RxNorm: 830061 1/2 Tablet(s) PO QPM 10/21/2013 01/20/2019 Inactive alprazolam 0.5 mg ta blet RxNorm: 540278 1 Tablet(s) PO as dir ected q hs and prn panic attacks 10/18/2013 01/10/2014 Inactive doxazosin 4 mg tablet RxNorm: 888187 1 q am 1/2 q pm Tablet(s) PO 09/21/2013 02/01/2014 Inactive doxazosin 4 mg tablet RxNorm: 505905 1 q am 1/2 q pm Tablet(s) PO 09/21/2013 09/20/2013 Inactive amlodipine 10 mg tablet RxNorm: 076318 1 Tablet(s) PO QAM 08/30/2013 08/24/2014 Inactive now taking full tab metoprolol tartrate 100 mg tablet RxNorm: 417036 2 Tablet(s) PO QPM 08/24/2013 10/22/2013 Inactive alprazolam 0.5 mg ta blet RxNorm: 852862 1 Tablet(s) PO as dir ected q hs and prn panic attacks 07/29/2013 10/17/2013 Inactive Benicar 20 mg tablet RxNorm: 999330 1 Tablet(s) PO daily 07/26/2013 08/09/2013 Inactive amlodipine 10 mg tablet RxNorm: 181595 1 Tablet(s) PO QAM 07/19/2013 08/29/2013 Inactive cyclobenzaprine 5 mg tablet RxNorm: 818421 1 Tablet(s) PO TID IL N one pill every 8 hours as needed for muscle spasms. 07/19/2013 03/31/2014 Inactive Kenalog 40 mg/mL Sylvia p for Injection RxNorm: 1044603 1 Milliliter(s) Inj 06/30/2013 06/30/2013 In active prednisone 10 mg tab lets in a dose pack RxNorm: 136828 1 Tablet(s) PO as doc tor directed take steroid taper as directed on box 06/30/2013 07/09/2013 Inactive disp ense one PACK meclizine 25 mg tablet RxNorm: 608666 1 Tablet(s) PO Q6 PRN 1/2 - 1 pill every 6 hours as needed for vertigo 06/30/2013 08/10/2013 Inactive metoprolol tartrate 100 mg tablet RxNorm: 333974 1.5 Tablet(s) PO BID 06/30/2013 08/23/2013 In active metoprolol tartrate 100 mg tablet RxNorm: 349519 1 Tablet(s) PO BID 06/24/2013 06/29/2013 Inactive metoprolol tartrate 100 mg tablet RxNorm: 301730 1 Tablet(s) PO daily 06/17/2013 06/23/2013 In active metoprolol tartrate 100 mg tablet RxNorm: 366511 1 Tablet(s) PO daily 06/17/2013 06/16/2013 In active Toprol XL 100 mg tab let,extended release RxNorm: 979855 Tablet(s) PO TAKE ONE AND ONE- HALF TABLET BY MOUTH EVERY MORNING AND ONE TABLET IN THE EVENING 05/05/2013 06/22/2013 In active alprazolam 0.5 mg ta blet RxNorm: 597948 1 Tablet(s) PO as dir ected q hs and prn panic attacks 04/06/2013 07/28/2013 Inactive doxazosin 4 mg tablet RxNorm: 684893 Tablet(s) PO TAKE ONE TABLET BY MOUTH EV KANE DAY 04/01/2013 09/20/2013 Inactive Toprol XL 100 mg tab let,extended release RxNorm: 614585 Tablet(s) PO TAKE ONE AND ONE- HALF TABLET BY MOUTH EVERY MORNING AND ONE TABLET IN THE EVENING 12/25/2012 05/04/2013 In active Lasix 20 mg tablet RxNorm: 095405 1 Tablet(s) PO QDAY PRN Take 1 tab daily x 3 days then as needed 12/02/2012 04/10/2014 Inactive potassium chloride E R 20 mEq tablet,extended release(part/cryst) RxNorm: 904893 1 Tablet(s) PO PRN 12/02/2012 10/04/2013 Inactive prn swelling alprazolam 0.5 mg ta blet RxNorm: 013931 1 Tablet(s) PO as dir ected q hs and prn panic attacks 12/01/2012 04/05/2013 Inactive amlodipine 10 mg tablet RxNorm: 006262 1/2 Tablet(s) PO QAM 12/01/2012 07/18/2013 Inactive fluconazole 150 mg t ablet RxNorm: 101509 1 Tablet(s) PO daily 11/16/2012 11/20/2012 Inactive fluconazole 150 mg t ablet RxNorm: 464261 1 Tablet(s) PO daily 11/16/2012 11/15/2012 Inactive Nexium 40 mg capsule ,delayed release RxNorm: 515804 1 Capsule(s) PO daily 10/23/2012 11/16/2013 In active acyclovir 400 mg tablet RxNorm: 199069 1 Tablet(s) PO TID 10/19/2012 10/28/2012 Inactive chlordiazepoxide-cli dinium 5 mg-2.5 mg capsule RxNorm: 565517 1 Capsule(s) PO TID P RN 2012 12/22/2013 Inactive Voltaren 1 % Topical Gel RxNorm: 055502 4 Gram(s) TOP QID pt is to use 2 grams to each hand and 4 grams to knees. 08/18/2012 04/10/2014 Inactive doxazosin 4 mg tablet RxNorm: 738780 1 Tablet(s) PO QAM 08/18/2012 10/16/2012 Inactive atorvastatin 20 mg t ablet RxNorm: 200590 1 Tablet(s) PO HS 08/12/2012 08/11/2012 Inactive may have #90 x3 infection atorvastatin 20 mg t ablet RxNorm: 077446 1 Tablet(s) PO HS 08/12/2012 09/05/2013 Inactive may have #90 x3 infection doxazosin 4 mg tablet RxNorm: 238547 1 Tablet(s) PO daily 08/11/2012 08/17/2012 Inactive clonidine 0.1 mg/24 hr Weekly Transderm Patch RxNorm: 144175 1 Patch TD QW 08/04/2012 08/10/2012 In active Influenza Virus Vacc ine 0.5 mL RxNorm: IM 08/04/2012 08/04/2012 Inactive cyclobenzaprine 5 mg tablet RxNorm: 835704 1 Tablet(s) PO TID [place] N one pill every 8 hours as needed for muscle spasms. 07/13/2012 11/09/2012 Inactive cyclobenzaprine 5 mg tablet RxNorm: 806416 1 Tablet(s) PO TID IL N one pill every 8 hours as needed for muscle spasms. 07/09/2012 07/12/2012 Inactive gabapentin 100 mg ca psule RxNorm: 302762 1 Capsule(s) PO TID 07/01/2012 12/01/2012 Inactive atorvastatin 20 mg t ablet RxNorm: 490114 1/2 Tablet(s) PO daily 07/01/2012 08/11/2012 Inactive may of 90 day supply if cheaper Toprol XL 100 mg tab let,extended release RxNorm: 780584 Tablet(s) PO BID 11/2 in am and 1 in evening 07/01/2012 06/16/2013 Inactive 1 1/2 q am 1 in [place] alprazolam 0.5 mg ta blet RxNorm: 337140 1 Tablet(s) PO as dir ected q hs and prn panic attacks 06/24/2012 11/30/2012 Inactive amlodipine 10 mg tablet RxNorm: 732374 1 Tablet(s) PO QAM 06/19/2012 11/30/2012 Inactive benazepril 20 mg tablet RxNorm: 736856 1 Tablet(s) PO daily 06/19/2012 06/13/2013 Inactive one daily at noon Toprol XL 100 mg tab let,extended release RxNorm: 570571 Tablet(s) PO BID 06/19/2012 06/30/2012 In active 1 1/2 q am 1 in polly Toprol XL 100 mg tab let,extended release RxNorm: 291488 1 1/2 Tablet(s) PO BI D 04/27/2012 06/18/2012 In active 90 or 30 day supply, whatever ins will a llow Lotrel 10 mg-20 mg Cap RxNorm: 390202 1 Capsule(s) PO daily 04/20/2012 08/04/2012 Inactive estradiol 0.5 mg Tab RxNorm: 516099 1 Tablet(s) PO BID 04/20/2012 12/02/2012 Inactive Toprol XL 100 mg 24 hr Tab RxNorm: 742967 1 1/2 Tablet(s) PO BID 04/14/2012 04/26/2012 Inactive Toprol XL 100 mg 24 hr Tab RxNorm: 805744 Tablet(s) PO daily 03/31/2012 04/13/2012 Inactive new directions: one q am 1/2 every evepl ease put on file until she needs filled Lipitor 10 mg tablet RxNorm: 329018 1 Tablet(s) PO daily 03/31/2012 12/02/2012 Inactive march of day supply if cheaper Toprol XL 100 mg 24 hr Tab RxNorm: 553905 1 Tablet(s) PO daily 03/11/2012 03/30/2012 Inactive Boniva 150 mg Tab RxNorm: 019594 1 Tablet(s) PO weekly 02/19/2012 12/02/2012 Inactive Detrol LA 4 mg capsu le,extended release RxNorm: 368647 1 Capsule(s) PO daily 02/19/2012 03/12/2016 In active doxycycline hyclate 100 mg Tab RxNorm: 2229549 1 Tablet(s) PO BID 01/23/2012 02/25/2012 Inactive Rocephin 500 mg Solu tion for Injection RxNorm: 6152405 1 Milliliter(s) Inj 01/23/2012 01/23/2012 In active Kenalog 40 mg/mL Sylvia p for Injection RxNorm: 8730673 1 Milliliter(s) Inj 01/23/2012 01/23/2012 In active cyclobenzaprine 5 mg tablet RxNorm: 153420 1 Tablet(s) PO TID [place] N one pill every 8 hours as needed for muscle spasms. 12/20/2011 04/17/2012 Inactive clonidine 0.1 mg Tab RxNorm: 306480 1 Tablet(s) PO BID 12/20/2011 02/25/2012 Inactive Vitamin D3 5,000 uni t tablet RxNorm: 310581 1 Tablet(s) PO daily No Start Date Active Nexium 24HR 22.3 mg capsule,delayed release RxNorm: 507161 1 Capsule(s) PO daily as needed No Start Date Active Lotrel 10 mg-20 mg Cap RxNorm: 661165 1 Capsule(s) PO daily No Start Date 02/24/2012 Inactive benazepril 20 mg tablet RxNorm: 414945 1 Tablet(s) PO No Start Date 06/18/2012 Inactive one daily at noon Vimovo 500 mg-20 mg multiphase, immed & delay rel Tab RxNorm: 831463 1 Tablet(s) PO BID No Start Date 12/01/2012 Inactive B12 1000 mcg RxNorm: 2 IM daily No Start Date 03/12/2016 Inactive Fish Oil 1,000 mg ca psule RxNorm: 1 Capsule(s) PO BID No Start Date 04/12/2014 Inactive Benicar 40 mg tablet RxNorm: 167369 1 Tablet(s) PO daily No Start Date 10/24/2013 Inactive Carafate 1 gram tablet RxNorm: 955330 Oral No Start Date 12/15/2013 Inactive Vitamin B-12 1,000 m cg tablet RxNorm: 046201 1 Tablet(s) PO daily No Start Date 03/12/2016 Inactive amlodipine 10 mg tablet RxNorm: 902305 1 Tablet(s) PO daily No Start Date 06/18/2012 Inactive Phenergan VC-Codeine 6.25 mg-5 mg-10 mg/5 mL Syrup RxNorm: 761175 5-10 Milliliter(s) PO Q6 PRN No Start Date 04/10/2014 Inactive Celebrex 200 mg capsule RxNorm: 624824 1 Capsule(s) PO daily No Start Date 10/08/2015 Inactive Percocet 5 mg-325 mg tablet RxNorm: 8693461 1-2 Tablet(s) PO Q6 PRN No Start Date 06/16/2014 Inactive Exforge 10 mg-320 mg Tab RxNorm: 999269 1 Tablet(s) PO daily sample No Start Date 05/20/2012 Inactive Lipitor 10 mg Tab RxNorm: 575445 1 Tablet(s) PO daily No Start Date 03/30/2012 Inactive tramadol 50 mg tablet RxNorm: 082481 1-2 Tablet(s) PO Q8 as needed No Start Date 04/24/2016 Inactive Lasix 20 mg tablet RxNorm: 539279 1 Tablet(s) PO QDAY PRN Take 1 tab daily x 3 days then as needed No Start Date 12/01/2012 Inactive potassium chloride E R 20 mEq tablet,extended release(part/cryst) RxNorm: 4620697 1 Tablet(s) PO QDAY PRN No Start Ochoa e 12/01/2012 Inactive Toprol XL 100 mg 24 hr Tab RxNorm: 751780 1 Tablet(s) PO daily No Start Date 03/10/2012 Inactive MIDRIN 325 mg-65 mg- 100 mg Cap RxNorm: 669441 1 Capsule(s) PO PRN No Start Date 05/20/2012 Inactive Nexium 40 mg capsule ,delayed release RxNorm: 464227 1 Capsule(s) PO daily No Start Date 10/22/2012 Inactive Detrol LA 4 mg 24 hr Cap RxNorm: 385772 Oral No S tart Date 02/18/2012 Inactive Boniva 150 mg Tab RxNorm: 312850 Oral No Start Date 02/18/2012 Inactive Flexeril 10 mg tablet RxNorm: 733610 1 Tablet(s) PO Q8 PRN No Start Date 03/31/2014 Inactive clidinium bromide Oral RxNorm: Oral No Start Date 12/01/2012 Inactive Fish Oil 360 mg-1,20 0 mg capsule,delayed release RxNorm: 1 Capsule(s) PO daily No Start Date 02/15/2019 Inactive alprazolam 0.5 mg ta blet RxNorm: 153106 1 Tablet(s) PO as dir ected q hs and prn panic attacks No Start Date 06/23/2012 Inactive chlordiazepoxide Oral RxNorm: Oral No Start Date 12/01/2012 Inactive metoprolol tartrate 100 mg tablet RxNorm: 704994 Tablet(s) PO TAKE ONE AND ONE-HALF (1 & 1/2) TABLET BY MOUTH EVERY MORNING AND TAKE TWO TABLETS BY MOUTH EVERY EVENING No Start Date 08/03/2014 Inactive furosemide 20 mg tablet RxNorm: 571678 1 Tablet(s) PO daily No Start Date 01/29/2016 Inactive Calcium Oral RxNorm: Oral No Start Date 03/12 Inactive Nasonex 50 mcg/actua tion [place] RxNorm: 684518 1 [place] NASAL BID No Start Date 04/10/2014 Inactive Medication Administered Medication Codes Instruc tions Start Date Status Kenalog 40 mg/mL suspension for injection RxNorm: 1891347 Milliliter 04/24/2018 No longer Active Kenalog 40 mg/mL suspension for injection RxNorm: 7613646 Milliliter 06/23/2017 No longer Active Kenalog 40 mg/mL suspension for injection RxNorm: 2914088 2Milliliter 03/21/2017 N o longer Active Kenalog 40 mg/mL suspension for injection RxNorm: 8110002 1Milliliter 04/04/2016 N o longer Active Kenalog 40 mg/mL suspension for injection RxNorm: 4256759 Milliliter 06/12/2015 No longer Active Kenalog 40 mg/mL suspension for injection RxNorm: 0971535 Milliliter 05/15/2015 No longer Active Kenalog 40 mg/mL suspension for injection RxNorm: 2167640 Milliliter 02/02/2014 No longer Active Kenalog 40 mg/mL Susp for Injection RxNorm: 8301628 1Milliliter 06/30/2013 N o longer Active Influenza Virus Vaccine 0.5 mL RxNorm: 08/04/2012 No longer Active Rocephin 500 mg Solution for Injection RxNorm: 8577241 1Milliliter 01/23/2012 N o longer Active Kenalog 40 mg/mL Susp for Injection RxNorm: 5665348 1Milliliter 01/23/2012 N o longer Active Immunizations [...] Ord2 RDW 14.8 % 06/05/2015 Comp Metabolic Xqn842 NA 138 mEq/L 06/05/2015 Comp Metabolic Fqx256 K 4.3 mEq/L 06/05/2015 Comp Metabolic Wxc667 CL 100 mEq/L 06/05/2015 Comp Metabolic Lkz149 CO2 29.0 mEq/L 06/05/2015 Comp Metabolic Yzy174 AN ION GAP 13 06/05/2015 Comp Metabolic Qyg831 GL UCOSE 85 mg/dL 06/05/2015 Comp Metabolic Krr428 Cr eat 0.7 mg/dL 06/05/2015 Comp Metabolic Aqa030 eG FR 94 ml/min/1.73m2 06/05 Comp Metabolic Fbo086 BUN 16 mg/dL 06/05/2015 Comp Metabolic Pct155 B/ C Ratio 24.2 Ratio 06/05/2015 Comp Metabolic Lvk740 CA LCIUM 9.5 mg/dL 06/05/2015 Comp Metabolic Uqu041 AL K PHOS 69 U/L 06/05/2015 Comp Metabolic Onn809 T(SGOT) 22 U/L 06/05/2015 Comp Metabolic Gnn645 AL T(SGPT) 26 U/L 06/05/2015 Comp Metabolic Hxl503 BI LI T 0.5 mg/dL 06/05/2015 Comp Metabolic Wmz808 AL BUMIN 4.2 g/dL 06/05/2015 Comp Metabolic Pkj041 TP RO 6.1 g/dL 06/05/2015 Comp Metabolic Ydt746 GL OB 1.9 g/dL 06/05/2015 Comp Metabolic Vho615 A/ G Ratio 2.2 Ratio 06/05/2015 Comp Metabolic Rfz157 Os mo 276 mOsmo 06/05/2015 Tsh Ord6 hTSH II 1.99 uIU/mL 06/05/2015 Lipid Ord30 CHOL 171 mg/dL 06/05/2015 Lipid Ord30 HDL 55.0 mg/dl 06/05/2015 Lipid Ord30 TRIG 178 mg/dL 06/05/2015 Lipid Ord30 LDL 80 mg/dL 06/05/2015 Lipid Ord30 C/HDL 3.1 Ratio 06/05/2015 %Hba1C Anf524 % HbA1c 76014-0 5.7 % 06/05/2015 %Hba1C Fsu495 Gluc Ave 117 mg/dL 06/05/2015 A1C HPLC 7920862 A1C HPLC 77032-0 5.6 % 07/15/2014 GFR CALC 1486904 GFR AA >60 ML/MIN 07/15/2014 GFR CALC 6149071 GFR NON -AA >60 ML/MIN 07/15/2014 CHEM 14 4643482 AST 21 U/L 07/15/2014 CHEM 14 9242996 ALT 23 IU/L 07/15/2014 CHEM 14 1912591 BUN 14 MG/DL 07/15/2014 CHEM 14 4614858 ALBUMIN 4.2 GM/DL 07/15/2014 CHEM 14 8149353 CHLORIDE 104 MMOL/L 07/15/2014 CHEM 14 3165800 BILI TOT 0.4 MG/DL 07/15/2014 CHEM 14 6583026 ALK PHOS 88 U/L 07/15/2014 CHEM 14 9853261 SODIUM 140 MMOL/L 07/15/2014 CHEM 14 5463351 CREATINI NE 0.63 MG/DL 07/15/2014 CHEM 14 7839881 CALCIUM 9.4 MG/DL 07/15/2014 CHEM 14 1197716 POTASSIUM 4.0 MMOL/L 07/15/2014 CHEM 14 7502904 PROT TOT 6.4 GM/DL 07/15/2014 CHEM 14 5843454 GLUCOSE 90 MG/DL 07/15/2014 CHEM 14 3335669 BICARB 30 MMOL/L 07/15/2014 CHEM 14 9370794 ANION GAP 6 MEQ/L 07/15/2014 A1C HPLC 9176037 A1C HPLC 26171-8 6.0 % 04/13/2014 TSH 8072974 TSH 1.875 uIU/ML 04/12/2014 CHEM 14 6814645 AST 17 U/L 04/12/2014 CHEM 14 7108489 ALT 20 IU/L 04/12/2014 CHEM 14 0733265 BUN 14 MG/DL 04/12/2014 CHEM 14 6435592 ALBUMIN 4.2 GM/DL 04/12/2014 CHEM 14 9510931 CHLORIDE 104 MMOL/L 04/12/2014 CHEM 14 3957539 BILI TOT 0.3 MG/DL 04/12/2014 CHEM 14 2791241 ALK PHOS 80 U/L 04/12/2014 CHEM 14 1713622 SODIUM 141 MMOL/L 04/12/2014 CHEM 14 0631361 CREATINI NE 0.62 MG/DL 04/12/2014 CHEM 14 2841877 CALCIUM 9.4 MG/DL 04/12/2014 CHEM 14 3753854 POTASSIUM 3.5 MMOL/L 04/12/2014 CHEM 14 3426077 PROT TOT 6.5 GM/DL 04/12/2014 CHEM 14 7107092 GLUCOSE 89 MG/DL 04/12/2014 CHEM 14 7829249 BICARB 29 MMOL/L 04/12/2014 CHEM 14 2223065 ANION GAP 8 MEQ/L 04/12/2014 LIPID GRP HDL TE ST 59 MG/DL 04/12/2014 LIPID GRP TRIG 177 MG/DL 04/12/2014 LIPID GRP 8000783 TEST L DL 106 MG/DL 04/12/2014 LIPID GRP CHOL 200 MG/DL 04/12/2014 LIPID GRP RCHOL/ HDL 3.39 RATIO 04/12/2014 CBC 3933668 WBC 4.6 10e9/L 04/12/2014 CBC 2322987 RBC 4.52 10e12/L 04/12/2014 CBC 3344117 HGB 13.1 g/dL 04/12/2014 CBC 3197720 HCT DET 39.2 % 04/12/2014 CBC 1801159 MCV 86.7 fL 04/12/2014 CBC 6632300 MCH 29.0 pg 04/12/2014 CBC 1310717 MCHC 33.4 g/dL 04/12/2014 CBC 5118863 PLT 233 10e9/L 04/12/2014 CBC 0604897 MPV 9.8 fL 04/12/2014 CBC 8336614 AN % 59.5 % 04/12/2014 CBC 5620840 LY % 28.6 % 04/12/2014 CBC 4416286 MON % 10.0 % 04/12/2014 CBC 9313825 EOS % 1.5 % 04/12/2014 CBC 7833729 BASO % 0.4 % 04/12/2014 CBC 8088930 RDW 13.7 % 04/12/2014 CBC 9909089 ABS AN 2.74 10e9/L 04/12/2014 CBC 5537285 ABS LYMPH 1.32 10e9/L 04/12/2014 CBC 1534645 ABS MONO 0.46 10e9/L 04/12/2014 CBC 2157923 ABS EOS 0.07 10e9/L 04/12/2014 CBC 2529831 ABS BASO 0.02 10e9/L 04/12/2014 CBC 2215543 RDW-SD 42.6 fL 04/12/2014 GFR CALC 7914341 GFR AA >60 ML/MIN 04/12/2014 GFR CALC 8315918 GFR NON -AA >60 ML/MIN 04/12/2014 LIPID GRP HDL TE ST 57 MG/DL 08/24/2013 LIPID GRP TRIG 183 MG/DL 08/24/2013 LIPID GRP 0110256 TEST L DL 64 MG/DL 08/24/2013 LIPID GRP CHOL 158 MG/DL 08/24/2013 LIPID GRP RCHOL/ HDL 2.77 RATIO 08/24/2013 GFR CALC 9224207 GFR AA >60 ML/MIN 08/24/2013 GFR CALC 5332766 GFR NON -AA >60 ML/MIN 08/24/2013 CHEM 14 1729640 AST 13 U/L 08/24/2013 CHEM 14 4599724 ALT 15 IU/L 08/24/2013 CHEM 14 8486219 BUN 14 MG/DL 08/24/2013 CHEM 14 0797530 ALBUMIN 4.3 GM/DL 08/24/2013 CHEM 14 9602261 CHLORIDE 106 MMOL/L 08/24/2013 CHEM 14 8597609 BILI TOT 0.3 MG/DL 08/24/2013 CHEM 14 5313003 ALK PHOS 75 U/L 08/24/2013 CHEM 14 5932183 SODIUM 141 MMOL/L 08/24/2013 CHEM 14 1004047 CREATINI NE 0.56 MG/DL 08/24/2013 CHEM 14 9397116 CALCIUM 9.1 MG/DL 08/24/2013 CHEM 14 7254505 POTASSIUM 4.2 MMOL/L 08/24/2013 CHEM 14 4692261 PROT TOT 6.0 GM/DL 08/24/2013 CHEM 14 2641920 GLUCOSE 83 MG/DL 08/24/2013 CHEM 14 7741121 BICARB 28 MMOL/L 08/24/2013 CHEM 14 0103814 ANION GAP 7 MEQ/L 08/24/2013 CBC 2706615 WBC 4.7 10e9/L 08/24/2013 CBC 2399328 RBC 4.33 10e12/L 08/24/2013 CBC 7887484 HGB 12.5 g/dL 08/24/2013 CBC 4837180 HCT DET 38.2 % 08/24/2013 CBC 5437786 MCV 88.2 fL 08/24/2013 CBC 9277574 MCH 28.9 pg 08/24/2013 CBC 4696309 MCHC 32.7 g/dL 08/24/2013 CBC 1407044 PLT 218 10e9/L 08/24/2013 CBC 0423291 MPV 10.4 fL 08/24/2013 CBC 1661119 AN % 61.9 % 08/24/2013 CBC 5157827 LY % 24.8 % 08/24/2013 CBC 5005465 MON % 10.3 % 08/24/2013 CBC 9308036 EOS % 2.1 % 08/24/2013 CBC 7303089 BASO % 0.9 % 08/24/2013 CBC 3993032 RDW 14.6 % 08/24/2013 CBC 8926747 ABS AN 2.91 10e9/L 08/24/2013 CBC 0458471 ABS LYMPH 1.17 10e9/L 08/24/2013 CBC 5416053 ABS MONO 0.48 10e9/L 08/24/2013 CBC 9112827 ABS EOS 0.10 10e9/L 08/24/2013 CBC 7663221 ABS BASO 0.04 10e9/L 08/24/2013 CBC 1417327 RDW-SD 46.7 fL 08/24/2013 TSH 9961331 TSH 1.208 uIU/ML 08/24/2013 Review of Systems [...] Formatting Model/CDA Sections, Assigned to/Jen Cota CPT-4: [id number] 07/28/2018 THER/PROPH/DIAG INJ SC/IM CPT-4: 87151 04/24/2018 TRIAMCINOLONE ACET I [place] NOS CPT-4: J3301 04/24/2018 PPPS, SUBSEQ VISIT CPT- 4: G0439 02/03/2018 TRIAMCINOLONE ACET I [place] NOS CPT-4: J3301 06/23/2017 TRIAMCINOLONE ACET I [place] NOS CPT-4: J3301 03/21/2017 PPPS, SUBSEQ VISIT CPT- 4: G0439 01/22/2017 ADMIN PNEUMOCOCCAL V ACCINE SNOMED CT: [id number] CPT-4: G0009 09/16/2016 Pneumococcal Polysac charide Vaccine, 23-Valent, Ad CPT-4: 87613 09/16/2016 THER/PROPH/DIAG INJ SC/IM CPT-4: 55570 04/04/2016 TRIAMCINOLONE ACET I [place] NOS CPT-4: J3301 04/04/2016 ADMIN INFLUENZA VIRU S VAC CPT-4: G0008 07/28/2015 FLU VACC 4 XIMENA 3 YRS PLUS IM Formatting Model/CDA Sections, Assigned to/Jen Cota SNOMED CT: [id number] CPT-4: 11317Qsndqqu 07/28/2015 TRIAMCINOLONE ACET I [place] NOS CPT-4: J3301 06/12/2015 TRIAMCINOLONE ACET I [place] NOS CPT-4: J3301 05/15/2015 ADMIN INFLUENZA VIRU S VAC CPT-4: G0008 07/19/2014 FLU VAC NO PRSV 4 VA L 3 YRS+ Assigned to/Jen Cota CPT-4: 96179Ebkjcrj 07/19/2014 TRIAMCINOLONE ACET I [place] NOS CPT-4: J3301 02/02/2014 ROUTINE VENIPUNCTURE CPT-4: 72785 08/24/2013 ADMIN INFLUENZA VIRU S VAC CPT-4: [...] CPT-4: J3301 01/23/2012 THER/PROPH/DIAG INJ SC/IM CPT-4: 92388 01/23/2012 REMOVE IMPACTED EAR WAX UNI CPT-4: 78083 01/02/2012 ROUTINE VENIPUNCTURE CPT-4: 01538 12/20/2011 Vital Signs Date Vital 02/16/2019 Blood Pressure 1: 136/82 Code: 8480-6 BMI: 34.0 Code: 56409-7 Heart Rate 1: 88 bpm Height: 5' SpO2: 94% Weight: 177 lbs 01/21/2019 Blood Pressure 1: 144/70 Code: 8480-6 BMI: 34.0 Code: 66351-6 Heart Rate 1: 68 bpm Height: 5' SpO2: 97% Temperature: 36.5 (C ) / 97.7 (F) Weight: 177 lbs 10/14/2018 Blood Pressure 1: 150/72 Code: 8480-6 Heart Rate 1: 58 bpm Height: 5' SpO2: 98% Weight: 09/22/2018 Blood Pressure 1: 140/80 Code: 8480-6 BMI: 32.7 Code: 58062-9 Heart Rate 1: 55 bpm Height: 5' SpO2: 98% Weight: 170 lbs 08/17/2018 Blood Pressure 1: 140/76 Code: 8480-6 BMI: 33.0 Code: 41693-3 Heart Rate 1: 60 bpm Height: 5' SpO2: 99% Weight: 172 lbs 06/08/2018 Blood Pressure 1: 136/80 Code: 8480-6 BMI: 33.8 Code: 11049-4 Heart Rate 1: 65 bpm Height: 5' SpO2: 98% Weight: 176 lbs 05/04/2018 Blood Pressure 1: 134/80 Code: 8480-6 BMI: 35.9 Code: 43107-4 Heart Rate 1: 72 bpm Height: 5' SpO2: 94% Weight: 187 lbs 02/04/2018 Blood Pressure 1: 144/76 Code: 8480-6 BMI: 35.0 Code: 07800-5 Heart Rate 1: 64 bpm Height: 5' SpO2: 98% Weight: 182 lbs 02/03/2018 Blood Pressure 1: 136/62 Code: 8480-6 BMI: 35.0 Code: 72798-4 Heart Rate 1: 57 bpm Height: 5' SpO2: 98% Waist Measure (cm): 94 cm Weight: 182 lbs 09/17/2017 Blood Pressure 1: 150/82 Code: 8480-6 BMI: 33.6 Code: 64299-2 Heart Rate 1: 58 bpm Height: 5' SpO2: 98% Weight: 175 lbs 06/23/2017 Blood Pressure 1: 124/66 Code: 8480-6 Heart Rate 1: 65 bpm Height: 5' SpO2: 97% Weight: 05/13/2017 Blood Pressure 1: 128/80 Code: 8480-6 BMI: 32.8 Code: 14356-3 Heart Rate 1: 76 bpm Height: 5' SpO2: 95% Weight: 171 lbs 03/21/2017 Blood Pressure 1: 152/88 Code: 8480-6 Heart Rate 1: 70 bpm Height: SpO2: 98% Weight: 03/19/2017 Blood Pressure 1: 132/64 Code: 8480-6 BMI: 33.0 Code: 75695-2 Heart Rate 1: 64 bpm Height: 5' SpO2: 96% Weight: 172 lbs 01/22/2017 Blood Pressure 1: 120/68 Code: 8480-6 BMI: 33.4 Code: 67749-2 Heart Rate 1: 68 bpm Height: 5' SpO2: 96% Weight: 174 lbs 01/14/2017 Blood Pressure 1: 138/80 Code: 8480-6 BMI: 33.4 Code: 52442-4 Heart Rate 1: 69 bpm Height: 5' SpO2: 98% Weight: 174 lbs 09/23/2016 Blood Pressure 1: 138/70 Code: 8480-6 BMI: 33.6 Code: 23822-3 Heart Rate 1: 68 bpm Height: 5' SpO2: 98% Temperature: 36.4 (C ) / 97.5 (F) Weight: 175 lbs 09/16/2016 Blood Pressure 1: 124/74 Code: 8480-6 BMI: 33.6 Code: 91260-8 Heart Rate 1: 64 bpm Height: 5' SpO2: 97% Weight: 175 lbs 06/25/2016 Weigh t: 174 lbs 06/17/2016 Blood Pressure 1: 128/80 Code: 8480-6 BMI: 34.0 Code: 72326-9 Heart Rate 1: 76 bpm Height: 5' SpO2: 95% Weight: 177 lbs 04/03/2016 Blood Pressure 1: 138/72 Code: 8480-6 BMI: 34.2 Code: 23568-2 Heart Rate 1: 63 bpm Height: 5' SpO2: 96% Weight: 178 lbs 03/13/2016 Blood Pressure 1: 128/72 Code: 8480-6 BMI: 35.3 Code: 16713-6 Heart Rate 1: 71 bpm Height: 5' SpO2: 97% Weight: 184 lbs 01/30/2016 Blood Pressure 1: 134/72 Code: 8480-6 BMI: 35.2 Code: 20225-4 Heart Rate 1: 71 bpm Height: 5' SpO2: 96% Weight: 183 lbs 12/21/2015 Blood Pressure 1: 148/90 Code: 8480-6 BMI: 34.6 Code: 64123-5 Heart Rate 1: 89 bpm Height: 5' SpO2: 96% Weight: 180 lbs 10/09/2015 Blood Pressure 1: 124/76 Code: 8480-6 BMI: 34.6 Code: 56983-2 Heart Rate 1: 88 bpm Height: 5' SpO2: 96% Weight: 180 lbs 06/12/2015 Blood Pressure 1: 148/74 Code: 8480-6 BMI: 33.4 Code: 51543-1 Heart Rate 1: 70 bpm Height: 5' SpO2: 96% Weight: 174 lbs 06/05/2015 Blood Pressure 1: 142/82 Code: 8480-6 BMI: 33.2 Code: 50903-4 Heart Rate 1: 72 bpm Height: 5' Weight: 173 lbs 05/15/2015 Blood Pressure 1: 118/80 Code: 8480-6 BMI: 33.6 Code: 40829-4 Heart Rate 1: 82 bpm Height: 5' Weight: 175 lbs 02/06/2015 Blood Pressure 1: 122/76 Code: 8480-6 BMI: 34.6 Code: 50670-1 Heart Rate 1: 58 bpm Height: 5' Weight: 180 lbs 01/10/2015 Blood Pressure 1: 158/90 Code: 8480-6 Blood Pressure 2: 152/90 Code: 8480-6 BMI: 34.6 Code: 35722-9 Heart Rate 1: 68 bpm Height: 5' Weight: 180 lbs 07/19/2014 Blood Pressure 1: 142/78 Code: 8480-6 BMI: 33.6 Code: 60870-1 Heart Rate 1: 56 bpm Height: 5' Weight: 175 lbs 06/17/2014 Blood Pressure 1: 128/86 Code: 8480-6 Heart Rate 1: 66 bpm SpO2: 98% Weight: 172 lbs 04/19/2014 Blood Pressure 1: 152/82 Code: 8480-6 BMI: 32.5 Code: 84207-5 Heart Rate 1: 60 bpm Height: 5' Weight: 169 lbs 04/11/2014 Blood Pressure 1: 120/80 Code: 8480-6 BMI: 33.4 Code: 82525-3 Heart Rate 1: 64 bpm Height: 5' Weight: 174 lbs 03/10/2014 Blood Pressure 1: 136/64 Code: 8480-6 BMI: 32.7 Code: 52934-3 Heart Rate 1: 76 bpm Height: 5' Weight: 170 lbs 02/02/2014 Blood Pressure 1: 160/76 Code: 8480-6 BMI: 32.7 Code: 78054-7 Heart Rate 1: 64 bpm Height: 5' Weight: 170 lbs 10/25/2013 Blood Pressure 1: 164/82 Code: 8480-6 BMI: 31.9 Code: 48392-0 Heart Rate 1: 60 bpm Height: 5' Weight: 166 lbs 08/24/2013 Blood Pressure 1: 138/88 Code: 8480-6 Heart Rate 1: 80 bpm Weight: 07/26/2013 Blood Pressure 1: 154/70 Code: 8480-6 Heart Rate 1: 72 bpm Weight: 162 lbs 06/30/2013 Blood Pressure 1: 182/86 Code: 8480-6 Heart Rate 1: 80 bpm Weight: 06/24/2013 Blood Pressure 1: 148/68 Code: 8480-6 BMI: 31.3 Code: 01937-4 Heart Rate 1: 72 bpm Height: 5' [...] 1: 142/88 Code: 8480-6 BMI: 30.6 Code: 41896-1 Heart Rate 1: 64 bpm Height: 5' [...] 1: 180/96 Code: 8480-6 BMI: 30.5 Code: 57982-4 Heart Rate 1: 76 bpm Height: 5' Respiratory Rate: 16 bpm Weight: 159 lbs 02/19/2012 Blood Pressure 1: 150/70 Code: 8480-6 Blood Pressure 2: 160/78 Code: 8480-6 Heart Rate 1: 76 bpm Respiratory Rate: 16 bpm Weight: 158 lbs 01/23/2012 Blood Pressure 1: 140/84 Code: 8480-6 BMI: 30.3 Code: 57507-1 Heart Rate 1: 68 bpm Height: 5' Respiratory Rate: 16 bpm SpO2: 98% Temperature: 37.0 (C ) / 98.6 (F) Weight: 158 lbs 01/02/2012 Blood Pressure 1: 142/92 Code: 8480-6 BMI: 30.7 Code: 71539-5 Heart Rate 1: 72 bpm Height: 5' Respiratory Rate: 16 bpm Weight: 160 lbs 12/20/2011 Blood Pressure 1: 170/84 Code: 8480-6 BMI: 30.0 Code: 88693-7 Heart Rate 1: 70 bpm Height: 5' [...] 06/12/2015 None rash Location-Head/Neck on the right congregational 06/12/2015 None rash Location-Head/Neck on the right [...] Encounters Encounter Performer Loca tion Codes Date ([id number]) [id number] EST. P ATIENT, LEVEL III Diagnosis: Essential (primary) hypertension[ICD10: I10] Diagnosis: Recurrent oral aphthae[ICD10: K12.0] Zoya Varela MD, [facility] CPT-4: 14685 02/16/2019 [id number]) [id number] EST. P ATIENT, LEVEL III Diagnosis: Cough[ICD10: R05] Diagnosis: Acute upper respiratory infection, unspecified[ICD10: J06.9] aKcy Varela MD, [facility] CPT-4: 99966 01/21/2019 [id number]) 69424 EST. P ATIENT, LEVEL IV Diagnosis: Essential (primary) hypertension[ICD10: I10] Diagnosis: Mixed hyperlipidemia[ICD10: E78.2] Zoya Varela MD, [facility] CPT- 4: 67517 10/14/2018 [id number]) 83340 EST. P ATIENT, LEVEL III Diagnosis: Essential (primary) hypertension[ICD10: I10] Diagnosis: Other specified cardiac arrhythmias[ICD10: I49.8] Zoya Varela MD, [facility] CPT-4: 23205 09/22/2018 [id number]) 22520 EST. P ATIENT, LEVEL IV Diagnosis: Essential (primary) hypertension[ICD10: I10] Diagnosis: Allergic rhinitis due to pollen[ICD10: J30.1] Diagnosis: Sciatica, right side[ICD10: M54.31] Zoya Varela MD, [facility] CPT- 4: 58673 08/17/2018 ([id number]) 38169 EST. 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 CPT-4: 13543 06/08/2018 ([id number]) 73406 EST. P ATIENT, LEVEL III Diagnosis: Acute upper respiratory infection, unspecified[ICD10: J06.9] Kacy Varela MD, [facility] CPT-4: 09541 05/04/2018 ([id number]) 85762 EST. P ATIENT, LEVEL IV Diagnosis: Essential (primary) hypertension[ICD10: I10] Diagnosis: Type 2 diabetes mellitus without complications[ICD10: E11.9] Diagnosis: Mixed hyperlipidemia[ICD10: E78.2] Diagnosis: Localized edema[ICD10: R60.0] Zoya Varela MD, [facility] CPT-4: 47217 02/04/2018 ([id number]) 99689 EST. P ATIENT, LEVEL IV Diagnosis: Essential (primary) hypertension[ICD10: I10] Zoya Varela MD, [facility] CPT-4: 32277 09/17/2017 ([id number]) 84666 EST. P ATIENT, LEVEL III Diagnosis: Allergic contact dermatitis due to plants, except food[ICD10: L23.7] Kacy Varela MD, [facility] CPT-4: 97355 06/23/2017 ([id number]) 85858 EST. P ATIENT, LEVEL IV Diagnosis: Essential (primary) hypertension[ICD10: I10] Diagnosis: Mixed hyperlipidemia[ICD10: E78.2] Zoya Varela MD, [facility] CPT- 4: 40836 05/13/2017 ([id number]) 98405 EST. P ATIENT, LEVEL III Diagnosis: Allergic contact dermatitis due to plants, except food[ICD10: L23.7] Kacy Varela MD, [facility] CPT-4: 41482 03/21/2017 89516 EST. PATIENT, LEVEL III Diagnosis: Bitten or stung by nonvenomous insect and other nonvenomous arthropods, initial encounter[ICD10: W57.XXXA] Diagnosis: Cellulitis of left lower limb[ICD10: L03.116] Laura Varela MD, [facility] CPT-4: 06406 03/19/2017 ([id number]) 19658 EST. P ATIENT, LEVEL IV Diagnosis: Type 2 diabetes mellitus without complications[ICD10: E11.9] Diagnosis: Essential (primary) hypertension[ICD10: I10] Diagnosis: Other specified epidermal thickening[ICD10: L85.8] Zoya Varela MD [facility] CPT-4: 48278 01/14/2017 20309 EST. PATIENT, LEVEL III Diagnosis: Glossodynia[ICD10: K14.6] Kacy Varela MD, [facility] CPT- 4: 01139 09/23/2016 ([id number]) 44704 EST. P ATIENT, LEVEL IV Diagnosis: Encounter for screening mammogram for malignant neoplasm of breast[ICD10: Z12.31] Diagnosis: Encounter for immunization[ICD10: Z23] Zoya Varela MD, [facility] CPT-4: 92761 09/16/2016 ([id number]) 59506 EST. P ATIENT, LEVEL III Diagnosis: Diseases of lips[ICD10: K13.0] Diagnosis: Allergic rhinitis due to pollen[ICD10: J30.1] Kacy Varela MD, [facility] CPT-4: 01550 06/25/2016 ([id number]) 68993 EST. P ATIENT, LEVEL III Diagnosis: Essential (primary) hypertension[ICD10: I10] Kacy Varela MD, [facility] CPT-4: 72641 06/17/2016 25189 EST. PATIENT, LEVEL IV Diagnosis: Other acute sinusitis[ICD10: J01.80] Diagnosis: Acute laryngopharyngitis[ICD10: J06.0] Diagnosis: Other allergic rhinitis[ICD10: J30.89] Laura Varela MD, [facility] CPT-4: 28944 04/03/2016 ([id number]) 75329 EST. P ATIENT, LEVEL IV Diagnosis: Essential (primary) hypertension[ICD10: I10] Diagnosis: Localized edema[ICD10: R60.0] Diagnosis: Polyneuropathy, unspecified[ICD10: G62.9] Zoya Varela MD, [facility] CPT-4: 84825 03/13/2016 ([id number]) 30551 EST. P ATIENT, LEVEL IV Diagnosis: Essential (primary) hypertension[ICD10: I10] Diagnosis: Localized edema[ICD10: R60.0] Diagnosis: Type 2 diabetes mellitus without complications[ICD10: E11.9] Zoya Varela MD, [facility] CPT-4: 48175 01/30/2016 78182 EST. PATIENT, LEVEL IV Diagnosis: Localized edema[ICD10: R60.0] Laura Varela MD, [facility] CPT-4: 84129 12/21/2015 ([id number]) 36536 EST. P ATIENT, LEVEL III Diagnosis: Essential (primary) hypertension[ICD10: I10] Diagnosis: Allergic rhinitis due to pollen[ICD10: J30.1] Diagnosis: Cervicalgia[ICD10: M54.2] Kacy Varela MD, [facility] CPT- 4: 31052 10/09/2015 87097 EST. PATIENT, LEVEL II Diagnosis: Contact dermatitis[ICD9: 692.9] Kacy Varela MD, [facility] CPT- 4: 39855 06/12/2015 ([id number]) 59088 EST. P ATIENT, LEVEL III Diagnosis: ESSENTIAL HYPERTENSION[ICD9: 401.9] Diagnosis: DIABETES TYPE II[ICD9: 250.00] Diagnosis: Anxiety[ICD9: 300.00] Kacy Varela MD, [facility] CPT-4: 85041 06/05/2015 ([id number]) 30283 EST. P ATIENT, LEVEL IV Diagnosis: Anxiety[ICD9: 300.00] Diagnosis: ALLERGIC RHINITIS[ICD9: 477.9] Diagnosis: ESOPHAGEAL REFLUX[ICD9: 530.81] Kacy Varela MD, [facility] CPT- 4: 15532 05/15/2015 ([id number]) 94250 EST. P ATIENT, LEVEL III Diagnosis: ESSENTIAL HYPERTENSION[ICD9: 401.9] Zoya Varela MD, [facility] CPT- 4: 19563 02/06/2015 ([id number]) 93220 EST. P ATIENT, LEVEL IV Diagnosis: ESSENTIAL HYPERTENSION[ICD9: 401.9] Diagnosis: EDEMA[ICD9: 782.3] Diagnosis: DIABETES TYPE II[ICD9: 250.00] Zoya Varela MD, [facility] CPT-4: 24758 01/10/2015 ([id number]) 74867 EST. P ATIENT, LEVEL IV Diagnosis: ESSENTIAL HYPERTENSION[ICD9: 401.9] Diagnosis: DIABETES TYPE II[ICD9: 250.00] Zoya Varela MD, [facility] CPT-4: 05454 07/19/2014 ([id number]) 21624 EST. P ATIENT, LEVEL III Diagnosis: Left ankle pain[ICD9: 719.47] Kacy Varela MD, [facility] CPT- 4: 50073 06/17/2014 ([id number]) 95198 EST. P ATIENT, LEVEL III Diagnosis: ESSENTIAL HYPERTENSION[ICD9: 401.9] Diagnosis: Elevated blood sugar[ICD9: 790.29] Zoya Varela MD, [facility] CPT- 4: 37957 04/19/2014 ([id number]) 08092 EST. P ATIENT, LEVEL IV Diagnosis: ESSENTIAL HYPERTENSION[SNOMED: 88518150] Diagnosis: ESOPHAGEAL REFLUX[ICD9: 530.81] Zoya Varela MD, [facility] CPT-4: 40633 04/11/2014 ([id number]) 85162 EST. P ATIENT, LEVEL IV Diagnosis: ALLERGIC RHINITIS[ICD9: 477.9] Diagnosis: Anxiety[ICD9: 300.00] Diagnosis: Dyspnea[ICD9: 786.09] Diagnosis: ESOPHAGEAL REFLUX[ICD9: 530.81] Kacy Varela MD, [facility] CPT- 4: 73905 03/10/2014 ([id number]) 00748 EST. P ATIENT, LEVEL III Diagnosis: ALLERGIC RHINITIS[ICD9: 477.9] Diagnosis: ESSENTIAL HYPERTENSION[SNOMED: 92668236] Kacy Varela MD, [facility] CPT-4: 38056 02/02/2014 ([id number]) 35146 EST. P ATIENT, LEVEL III Diagnosis: ESSENTIAL HYPERTENSION[SNOMED: 58240579] Diagnosis: Skin irritation[ICD9: 709.9] Zoya Varela MD, [facility] CPT-4: 24614 10/25/2013 ([id number]) 43899 EST. P ATIENT, LEVEL III Diagnosis: HYPERLIPIDEMIA[ICD9: 272.4] Diagnosis: ESSENTIAL HYPERTENSION[SNOMED: 17291103] Diagnosis: EDEMA[ICD9: 782.3] Diagnosis: Encounter for long-term (current) use of other medications[ICD9: V58.69] Zoya Varela MD, [facility] CPT-4: 26085 08/24/2013 ([id number]) 11190 EST. P ATIENT, LEVEL III Diagnosis: ESSENTIAL HYPERTENSION[SNOMED: 57771050] Zoya Varela MD, C CPT-4: 31873 07/26/2013 ([id number]) 74262 EST. P ATIENT, LEVEL III Diagnosis: ESSENTIAL HYPERTENSION[SNOMED: 36241457] Zoya Varela MD, C CPT-4: 84469 06/30/2013 ([id number]) 82212 EST. P ATIENT, LEVEL III Diagnosis: ESSENTIAL HYPERTENSION[SNOMED: 66411594] Zoya Varela MD, C CPT-4: 21420 06/24/2013 ([id number]) 60941 EST. P ATIENT, LEVEL IV Diagnosis: ESSENTIAL HYPERTENSION[SNOMED: 52888657] Diagnosis: Leg pain[ICD9: 729.5] Diagnosis: Leg swelling[ICD9: 729.81] Zoya Varela MD, [facility] CPT-4: 92622 12/01/2012 ([id number]) 28855 EST. P ATIENT, LEVEL III Diagnosis: Shingles[ICD9: 053.9] Zoya Varela MD, [facility] CPT-4: 09206 10/19/2012 ([id number]) 81453 EST. P ATIENT, LEVEL IV Diagnosis: EDEMA[ICD9: 782.3] Diagnosis: ESSENTIAL HYPERTENSION[SNOMED: 46618927] Zoya Varela MD, C CPT-4: 13126 10/07/2012 ([id number]) 50083 EST. P ATIENT, LEVEL IV Diagnosis: ESSENTIAL HYPERTENSION[SNOMED: 52580187] Diagnosis: EDEMA[ICD9: 782.3] Diagnosis: Irritable bowel disease[ICD9: 564.1] Zoya Varela MD, [facility] CPT-4: 92463 2012 ([id number]) 12971 EST. P ATIENT, LEVEL III Diagnosis: ESSENTIAL HYPERTENSION[SNOMED: 14224540] Zoya Varela MD, C CPT-4: 88461 08/18/2012 ([id number]) 97249 EST. P ATIENT, LEVEL III Diagnosis: ESSENTIAL HYPERTENSION[SNOMED: 06278024] Zoya Varela MD, C CPT-4: 23172 08/04/2012 ([id number]) 60008 EST. P ATIENT, LEVEL IV Diagnosis: ESSENTIAL HYPERTENSION[SNOMED: 71945167] Diagnosis: Lumbago[ICD9: 724.2] Diagnosis: HYPERLIPIDEMIA[ICD9: 272.4] Zoya Varela MD, [facility] CPT-4: 47683 07/01/2012 ([id number]) 07319 EST. P ATIENT, LEVEL III Diagnosis: ESSENTIAL HYPERTENSION[SNOMED: 04353240] Zoya Varela MD, C CPT-4: 60542 05/20/2012 ([id number]) 58846 EST. P ATIENT, LEVEL IV Diagnosis: ESSENTIAL HYPERTENSION[SNOMED: 84410111] Diagnosis: Hot flash, menopausal[ICD9: 627.2] Zoya Varela MD, [facility] CPT- 4: 28395 04/20/2012 99188 EST. PATIENT, LEVEL IV Diagnosis: SPASM OF MUSCLE[ICD9: 728.85] Diagnosis: Back pain[ICD9: 724.5] Diagnosis: ESSENTIAL HYPERTENSION[SNOMED: 30719939] Zoya Varela MD, C CPT-4: 75134 03/10/2012 ([id number]) 33164 EST. 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 P ATIENT, LEVEL III Diagnosis: ESSENTIAL HYPERTENSION[SNOMED: 56756277] Zoya Varela MD, C CPT-4: 10287 02/19/2012 60833 EST. PATIENT, LEVEL IV Diagnosis: ESSENTIAL HYPERTENSION[SNOMED: 90305924] Diagnosis: Cough[ICD9: 786.2] Kacy Varela MD, [facility] CPT-4: 87112 01/23/2012 ([id number]) 79537 EST. P ATIENT, LEVEL IV Diagnosis: HYPERLIPIDEMIA[ICD9: 272.4] Diagnosis: ESSENTIAL HYPERTENSION[SNOMED: 84992351] Zoya Varela MD, C CPT-4: 31946 01/02/2012 OFFICE VISIT, NEW - LEVEL 4 Diagnosis: ESSENTIAL HYPERTENSION[SNOMED: 76921677] Diagnosis: HYPERLIPIDEMIA[ICD9: 272.4] Diagnosis: IMPACTED CERUMEN[ICD9: 380.4] Diagnosis: Muscle spasm[ICD9: 728.85] Diagnosis: CHRONIC TENSION HEADACHE[ICD9: 339.12] Diagnosis: Neck pain, chronic[ICD9: 723.1] Diagnosis: Change in skin mole[ICD9: 216.9] Zoya Varela MD, [facility] CPT-4: 37745 12/20/2011 Plan of Care Planned Activity Notes [...] cold sores. 02/16/2019 Appointment: Zoya Varela WPtel: [address] [place], [place] [phone] (15 min) Moderate 02/16/2019 Patient Education: Patient [...] plan. 01/21/2019 Appointment: Kacy Moses WPtel: [phone] [phone] [place] (15 min) Moderate 01/21/2019 Patient Education: Patient Medication Summary Completed 01/21/2019 Appointment: Zoya Varela WPtel: [phone] [facility] [place] (15 min) Moderate 12/15/2018 [...] medications. 10/14/2018 Appointment: Zoya Varela WPtel: [phone] [facility] [place] (15 min) Moderate 10/14/2018 Patient Education: [...] metoprolol, will have pt go see her polyethylene combiner as we may need to consider stopping the beta ori completely versus potential need for pacemaker. 09/22/2018 Appointment: Zoya Varela WPtel: [phone] [facility] (15 min) Moderate 09/22/2018 Patient Education: Patient Medication Summary Completed 09/22/2018 App[facility]ment: [phone] (15 min) Moderate 09/09/2018 Visit Plan: [...] she can be seen by Oncology in [place]. 06/08/2018 Appointment: [phone] [facility] [place] (15 min) Moderate 06/08/2018 Patient Education: Patient Medication Summary Completed 06/08/2018 Visit Plan: URI - Pt advised to inc rease fluids, vitamin C. Discussed natural and expected course of this diagnosis and need to alert me if symptoms do not follow expected course, or if any worse. RX sent to patient's pharmacy. 05/04/2018 Appointment: [phone] [place] (30 min) Complex 05/04/2018 Patient Education: [...] extremities. 02/04/2018 Appointment: [phone] [facility] [place] (15 min) Moderate 02/04/2018 Patient [...] Velasco WPtel: [facility]9 [facility] [facility] - Annual Wellness Visit 01/28/2018 Appointment: Zoya Varela WPtel: [facility]9 [facility] (15 min) Moderate 01/15/2018 Visit [...] Dr. [place]. 09/17/2017 Appointment: Zoya Varela WPtel: [facility] (15 min) Moderate 09/17/2017 Patient Education: Patient Medication Summary Completed 09/17/2017 Patient Education: Obesity Completed 09/17/2017 Patient Education: Hypertension Completed 09/17/2017 Care Plan: SCREENINGMAMMOGRAPHYDIGITAL LOINC : 26783-1 Pending 09/17/2017 Visit Plan: Poison Sarah -kenalog inj ection today in the office-start prednisone tomorrow pt is to use topical treatments as directed. Pt is cleanse clothing in hot water with soap, and call if symptoms do not improve or if they worsen. 06/23/2017 Appointment: Kacy Moses WPtel: [facility]7 [phone] (15 min) Moderate 06/23/2017 Patient Education: Patient Medication Summary Completed 06/23/2017 Visit Plan: Hypertension - well con itzel [...] medications. 05/13/2017 Appointment: Zoya Varela WPtel: [phone] [facility] (15 min) Moderate 05/13/2017 Patient Education: Patient [...] they worsen. 03/21/2017 Appointment: Kacy Moses WPtel: [phone] [phone] (15 min) Moderate 03/21/2017 Patient Education: [...] pain. 03/19/2017 Appointment: Laura Velasco WPtel: [phone] [facility] (15 min) Moderate 03/19/2017 Patient Education: [...] in hearing. 01/22/2017 Appointment: [facility] Vel[facility]co [phone] [facility] - Annual Wellness Visit 01/22/2017 [...] at home. 01/14/2017 Appointment: [phone] [facility] (15 min) Moderate 01/14/2017 Patient Education: [...] of plan. 09/23/2016 Appointment: Kacy Moses WPtel: [phone] [phone] (15 min) Moderate 09/23/2016 Patient Education: Patient [...] to medications. 09/16/2016 Appointment: [facility]el[phone] [facility] (15 min) Moderate 09/16/2016 Patient Education: Patient Medication Summary Completed 09/16/2016 Patient Education: Obesity Completed 09/16/2016 Care Plan: SCREENINGMAMMOGRAPHYDIGITAL LOINC : 13968-0 Pending 09/16/2016 Visit Plan: Cracked/painful lips-ba cterial [...] worse. 06/25/2016 Appointment: [phone] [phone] (15 min) Moderate 06/25/2016 Patient Education: Patient [...] spray. 04/03/2016 Appointment: [facility] Moses [facility]el[phone] [phone] (30 min) Complex 04/03/2016 Patient Education: Patient [...] Completed 03/13/2016 Appointment: [facility]el[phone] [facility] (15 min) Moderate 02/28/2016 Appointment: Z[facility] Vareal [facility]Ptel[phone] [facility] (15 min) Moderate 02/01/2016 Visit Plan: Hypertension [...] with his plans for treatment. 01/30/2016 [place]: [place] [phone] [facility] (15 min) Moderate 01/30/2016 Patient Education: [...] home. 02/06/2015 Appointment: Zoya Varela WPtel: [phone] [facility] Follow up 02/06/2015 Patient Education: Patient Medication [...] edema. 01/10/2015 Appointment: Z[facility]arela [facility]Ptel[phone] [facility] [facility] 01/10/2015 Patient Education: Patient Medication Summary [...] less controlled. 07/19/2014 Appointment: NicholeLiy WPtel: [phone] [facility] Follow up 07/19/2014 Patient Education: Patient Medication Summary Completed 07/19/2014 Patient Education: Hypertension Completed 07/19/2014 Care Plan: SCREENINGMAMMOGRAPHYDIGITAL [facility] : 27007-1 Ordered 07/19/2014 Visit Plan: Left ankle pain-sprain- [...] at home. 04/19/2014 Appointment: [facility] Moses [facility]el[phone] [phone] Diabetic education 04/19/2014 Patient Education: Patient Medication [...] medications. 04/11/2014 Appointment: Zoya Varela [facility]Ptel: [phone] [facility] Follow up 04/11/2014 Patient Education: Patient [...] spray in the nasal steroid allergy spray. Qzuxcuz-kqzdytluiajs-jzdawhw xanax at bedtime Esophageal Reflux - the patient has been counseled against excessive intake of caffiene, spicy foods, peppermint, and cinnamon - all of which can exacerbate esophageal reflux. The patient is to take medications as prescribed and call the office if the symptoms are not improving. 03/10/2014 Appointment: Zoya [facility]arela [facility]Ptel[phone] [facility] Other 03/10/2014 Patient Education: Patient Medication [...] spray. 02/02/2014 Appointment: K[facility] Moses [facility]el[phone] [facility] [place] [address] Other 02/02/2014 Patient Education: Patient Medication Summary [...] site. 10/25/2013 Appointment: Z[facility]arela [facility]Ptel[phone] [facility] Follow up 10/25/2013 Patient Education: Patient [...] AT BEDTIME 08/24/2013 Appointment: Z[facility]el[facility] [phone] [facility] Follow up 08/24/2013 Patient Education: Patient [...] acute concerns. 07/26/2013 Appointment: Z[facility]la [facility]Ptel[phone] [facility] Follow up 07/26/2013 Patient Education: Patient [...] IMPROVE. 06/30/2013 Appointment: Zoya [facility]arela [facility]Ptel[facility] [phone] [facility] Other 06/30/2013 Patient Education: Patient Medication Summary [...] acute concerns. 06/24/2013 Appointment: Kacy Moses WPtel: [phone] [phone] Follow up 06/24/2013 Patient Education: Patient Medication Summary Completed 06/24/2013 Patient Education: Hypertension Completed 06/24/2013 Appointment: Zoya Varela WPtel: [facility] Other 03/23/2013 Visit Plan: Hypotension - pt is on chronic antihypertensive medication - the medication has been adjusted down to attempt to alleviate the low blood pressures. Leg pain - Leg swelling - pt to have ultrasound on her right lower leg due to post-operative swelling and pain. 12/01/2012 Appointment: Zoya Varela WPtel: [facility]5 [facility] [place] Follow up 12/01/2012 Patient Education: Patient Medication Summary Completed 12/01/2012 Patient Education: Hypertension Completed 12/01/2012 Appointment: Zoya Varela WPtel: [facility]5 [facility] [place] Follow up 10/20/2012 Visit Plan: Shingles [...] WPtel: [facility]5 [facility]66[facility] Other 10/19/2012 Patient Education: Patient Medication Summary [...] WPtel: [facility] [address] Other 10/07/2012 Patient Education: Hypertension Completed 10/07/2012 [...] WPtel: [facility]5 [facility] Other 2012 Patient Education: Patient [...] EVENING. 08/18/2012 Appointment: Z[facility]arela [facility]Ptel[phone] [facility] Follow up 08/18/2012 Patient Education: Patient [...] the knees. 08/04/2012 Appointment: Z[facility]Ptel[phone] [facility] Follow up 08/04/2012 Patient Education: Patient [...] twice daily. 07/01/2012 Appointment: Zoya Varela WPtel: [address] [place], [place] [phone] Other 07/01/2012 Patient Education: Patient Medication Summary [...] two weeks 05/20/2012 Appointment: Zoya Varela WPtel: [address] [place], [place] [phone] Follow up 05/20/2012 Patient Education: Patient Medication Summary Completed 05/20/2012 Patient Education: High Blood Pressure: Essential Hypertension Completed 05/20/2012 Appointment: Zoya Varela WPtel: [address] [place], [place] [phone] Other 05/11/2012 Visit Plan: Hypertension - uncontro [...] bid dosing. 04/20/2012 Appointment: Zoya Varela WPtel: [facility]9 [facility] Follow up 04/20/2012 Patient Education: [...] weeks. 03/10/2012 Appointment: Zoya Varela WPtel: [phone] [facility] Other 03/10/2012 Patient Education: Patient [...] codeine. 02/25/2012 Appointment: Z[facility]la [facility]Ptel[phone] [facility] Other 02/25/2012 Patient Education: Patient Medication [...] office. 02/19/2012 Appointment: Z[facility]arela [facility]Ptel: [phone] [facility] Other 02/19/2012 Patient Education: Patient Medication [...] office 01/23/2012 Appointment: [facility] Moses [facility]el[phone] [place] Other 01/23/2012 Patient Education: Patient Medication [...] DAILY. 01/02/2012 Appointment: Zoya Varela WPtel: [address] [place] [address] [facility] 01/02/2012 Patient Education: Patient Medication Summary Completed [...] 2 wks. 12/20/2011 Appointment: Zoya Varela WPtel: [facility] New Patient 12/20/2011 Patient Education: Patient Medication Summary Completed 12/20/2011 Patient Education: High Blood Pressure: Essential Hypertension Completed 12/20/2011 Instructions Comment . Edema - pt has bee n advised to elevate legs to prevent dependent edema, compression has been recommended to help to naturally decrease peripheral edema. Diuretic use has been discussed and pt has been instructed in appropriate use of such medication as necessary to further attempt to reduce peripheral edema. No added salt, heart healthy diet recommended. Biotene OTC Decrease dose of Lyrica to [...] neck pain-muscle spasms-refill flexeril for prn use DEXILANT 60MG DAILY- TAKE SAMPLES UNTIL GONE [...] lot of inconsistent readings.. I have instructed Ntaali to take her medications as follows: Toprol [...] antibiotic. Patient verbalized understanding of plan. . If the clonidine p [facility] has the blood pressures at or below 120/80, then the pt is to stop her norvasc and call the clinic, pt is to rtc in 2 weeks. Apply the pennsaid 15 drops to each knee three times daily, rub in the pennsaid to hands after each application on the knees. bactroban ointment t o right leg kenalog [...] metoprolol, will have pt go see her polyethylene combiner as we may need to consider stopping the beta ori completely versus potential need for pacemaker. . Sinusitis - Pt has acute infection [...] spray in the nasal steroid allergy spray. compression socks - look at [facility] section - sports compression socks [...] socks to lower extremities. . Hypertension - wel l controlled - [...] pressure readings at home. . Hypertension - unc ontrolled - the [...] change in blood pressure readings at home. START ACYCLOVIR TODA Y AND START THE [...] as discussed. Patient verbalized understanding of plan. Thigh high compressi on hose-on in the [...] through with his plans for treatment. . Hypertension - unc ontrolled - the [...] can use PRN for cold sores. . Cracked/painful li ps-bacterial culture today in [...] her DOPA paperwork for health care surrogate. We will get a chest xray at [...] she can be seen by Oncology in [place]. . Tick - tick with h ead [...] spray in the nasal steroid allergy spray. Xkkfaeh-znlbqidmqxcr-odoppld xanax at bedtime Esophageal Reflux - the [...] assure normal liver response to medications. . Cracked/painful li ps-bacterial culture today in the office-discussed keeping lips well moisturized-get new toothbrush, lip gloss, etc. Call if symptoms do not resolve or if any worse.
--- OUTSIDE RECORDS SUMMARY | 2020-05-26 02:54 | XMS REPORT | CCD ---
Author Author Natali Varela Organization [facility] Address [address] [place] [address] Phone Care Team Providers Care Real Estate Account Executive Name Role Phone PP Unavailable CCM Unavailable Summary Purpose Interface Exchange Insurance Providers Payer name Policy type / Coverage type Covered constitution party ID Effective Begin Date Effective End Date WPS Medicare Part B Medicare Part B [id number] Unknown [employer] INSURANCE IR [employer] Medicare Part B [id number] Unknown Family history Mother Diagnosis Age At Onset Liver Failure Unknown Diabetes mellitus Type 2 Unknown Hyperlipidemia Unknown Hypertension Unknown Cancer Unknown Arthritis Unknown Father Diagnosis Age At Onset Liver Failure Unknown Cancer Unknown Social History Social History Element Codes Description Effective Dates Marital status Unknown M arried 12/12/2011 Number of children Unknown 3 12/12/[address]: 9277702 Former smoker quit in 199212/12/2011 Allergies, Adverse Reactions, Alerts Allergies, Adverse Reactions, Alerts data not found Past Medical History Illness Codes Condition Status Onset Date Resolved Date Essential (primary) hypertension ICD-9: 401.9 ICD-10: I10 Active 06/16/2016 Unknown Mixed hyperlipidemia ICD-9: 272.2 ICD-10: E78.2 Active 05/13/2017 Unknown 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, except food ICD-9: 692.6 ICD-10: L23.7 Active 03/21/2017 Unknown Bitten or stung by n onvenomous insect and other nonvenomous arthropods, initial encounter ICD-9: 919.4 ICD-10: W57.XXXA Active 03/19/2017 Unknown Cellulitis of left l ower limb ICD-9: 682.6 ICD-10: L03.116 Active 03/19/2017 Unknown Encounter for genera l adult medical examination with abnormal findings ICD-9: V70.0 ICD-10: Z00.01 Active 01/22/2017 Unknown Other specified epid ermal thickening ICD-9: 757.39 ICD-10: L85.8 Active 01/14/2017 Unknown Type 2 diabetes eder itus without complications ICD-9: 250.00 ICD-10: E11.9 Active 07/19/2014 Unknown Glossodynia ICD-9: 529.6 ICD-10: K14.6 Active 09/22/2016 Unknown Encounter for immuni zation ICD-9: V03.82 ICD-10: Z23 Active 09/15/2016 Unknown Encounter for screen ing mammogram for malignant neoplasm of breast ICD-9: V76.12 ICD-10: Z12.31 Active 09/15/2016 Unknown Allergic rhinitis du e to pollen ICD-9: 477.9 ICD-10: J30.1 Active 02/25/2012 Unknown Diseases of lips ICD-9: 528.5 ICD-10: K13.0 Active 06/24/2016 Unknown Acute laryngopharyng itis ICD-9: 465.0 ICD-10: J06.0 Active 04/03/2016 Unknown Other acute sinusitis ICD-9: 461.8 ICD-10: J01.80 Active 04/03/2016 Unknown Other allergic rhinitis ICD-9: 477.8 ICD-10: J30.89 Active 04/03/2016 Unknown Localized edema ICD-9: 782.3 ICD-10: R60.0 Active 01/10/2015 Unknown Polyneuropathy, unsp ecified ICD-9: 356.9 ICD-10: [...] Dates Condition Status Essential (primary) hypertension ICD-9: 401.9 ICD-10: I10 06/16/2016 Active Mixed hyperlipidemia ICD-9: 272.2 ICD-10: E78.2 05/13/2017 Active 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, except food ICD-9: 692.6 ICD-10: L23.7 03/21/2017 Active Bitten or stung by n onvenomous insect and other nonvenomous arthropods, initial encounter ICD-9: 919.4 ICD-10: W57.XXXA 03/19/2017 Active Cellulitis of left l ower limb ICD-9: 682.6 ICD-10: L03.116 03/19/2017 Active Encounter for genera l adult medical examination with abnormal findings ICD-9: V70.0 ICD-10: Z00.01 01/22/2017 Active Other specified epid ermal thickening ICD-9: 757.39 ICD-10: L85.8 01/14/2017 Active Type 2 diabetes eder itus without complications ICD-9: 250.00 ICD-10: E11.9 07/19/2014 Active Glossodynia ICD-9: 529.6 ICD-10: K14.6 09/22/2016 Active Encounter for immuni zation ICD-9: V03.82 ICD-10: Z23 09/15/2016 Active Encounter for screen ing mammogram for malignant neoplasm of breast ICD-9: V76.12 ICD-10: Z12.31 09/15/2016 Active Allergic rhinitis du e to pollen ICD-9: 477.9 ICD-10: J30.1 02/25/2012 Active Diseases of lips ICD-9: 528.5 ICD-10: K13.0 06/24/2016 Active Acute laryngopharyng itis ICD-9: 465.0 ICD-10: J06.0 04/03/2016 Active Other acute sinusitis ICD-9: 461.8 ICD-10: J01.80 04/03/2016 Active Other allergic rhinitis ICD-9: 477.8 ICD-10: J30.89 04/03/2016 Active Localized edema ICD-9: 782.3 ICD-10: R60.0 01/10/2015 Active Polyneuropathy, unsp ecified ICD-9: 356.9 ICD-10: [...] Fill Instructions amlodipine 5 mg tablet RxNorm: 749651 TAKE ONE TABLET BY MOUTH DAILY 05/15/2017 10/31/2019 Ac tive cyclobenzaprine 10 m g tablet RxNorm: 974067 TAKE ONE TABLET BY MO [facility] EVERY 8 HOURS NEEDED 05/07/2017 05/26/2017 Active tramadol 50 mg tablet RxNorm: 084408 1-2 Tablet(s) PO Q8 as needed 04/07/2017 07/05/2017 Ac tive cyclobenzaprine 10 m g tablet RxNorm: 625524 TAKE ONE TABLET BY MO [facility] EVERY 8 HOURS NEEDED 04/07/2017 04/26/2017 Inactive Xanax 0.25 mg tablet RxNorm: 748692 1/2-1 Tablet(s) PO QDAY PRN 04/04/2017 06/02/2017 Active metoprolol tartrate 100 mg tablet RxNorm: 561611 TAKE ONE AND ONE-HALF (1 & 1/2) TABLET BY MOUTH EVERY MORNING AND TAKE TWO TABLETS BY MOUTH EVERY EVENING 03/28/2017 07/25/2017 Ac tive prednisone 10 mg tab lets in a dose pack RxNorm: 674153 1 Tablet(s) PO UD 03/21/2017 03/26/2017 In active 6-5-4-3-2-1 Kenalog 40 mg/mL sylvia pension for injection RxNorm: 8754497 2 Milliliter(s) Inj 03/21/2017 03/21/2017 In active doxycycline hyclate 100 mg capsule RxNorm: 5967249 1 Capsule(s) PO BID 03/19/2017 03/28/2017 In active cyclobenzaprine 10 m g tablet RxNorm: 254185 TAKE ONE TABLET BY MO U[facility] EVERY 8 HOURS NEEDED 02/25/2017 03/16/2017 Inactive triamcinolone aceton pineda 0.1 % topical ointment RxNorm: 2828576 1 Application TOP TI D 02/21/2017 02/20/2017 Inactive triamcinolone aceton pineda 0.1 % topical ointment RxNorm: 2190073 1 Application TOP TI D 02/21/2017 03/02/2017 Inactive doxazosin 4 mg tablet RxNorm: 340045 TAKE ONE AND ONE-HALF (1 & 1/2) TABLET B Y MOUTH BY MOUTH TWO TIMES A DAY 02/14/2017 01/09/2018 Active cyclobenzaprine 10 m g tablet RxNorm: 560234 TAKE ONE TABLET BY MO [facility] EVERY 8 HOURS NEEDED 01/27/2017 02/15/2017 Inactive ammonium lactate 12 % topical cream RxNorm: 270264 1 Application TOP BID 01/14/2017 02/12/2017 In active dispense one bottle of the cream potassium chloride E R 10 mEq tablet,extended release RxNorm: 211799 1 Tablet(s) PO PRN as needed with lasix 11/13/2016 No Stop Date Active prn swelling furosemide 20 mg tablet RxNorm: 244229 1 Tablet(s) PO daily as needed edema 11/13/2016 01/11/2017 In active metoprolol tartrate 100 mg tablet RxNorm: 081146 TAKE ONE AND ONE-HALF (1 & 1/2) TABLET BY MOUTH EVERY MORNING AND TAKE TWO TABLETS BY MOUTH EVERY EVENING 11/01/2016 03/27/2017 In active atorvastatin 20 mg t ablet RxNorm: 691089 TAKE ONE TABLET BY MO [facility] DAILY 10/31/2016 04/28/2017 In active cyclobenzaprine 10 m g tablet RxNorm: 986068 TAKE ONE TABLET BY [facility] EVERY 8 HOURS NEEDED 10/25/2016 12/03/2016 Inactive Lyrica 25 mg capsule RxNorm: 716357 1 Tablet(s) PO BID 09/23/2016 01/13/2017 Inactive Lyrica 50 mg capsule RxNorm: 363266 1 Capsule(s) PO BID 09/16/2016 01/13/2017 Inactive amlodipine 5 mg tablet RxNorm: 988398 Tablet(s) TAKE ONE TABLET BY MOUTH DAILY 08/28/2016 05/14/2017 In active cyclobenzaprine 10 m g tablet RxNorm: 415878 TAKE ONE TABLET BY MO [facility] EVERY 8 HOURS NEEDED 08/05/2016 09/13/2016 Inactive Xanax 0.25 mg tablet RxNorm: 663657 1/2-1 Tablet(s) PO QDAY PRN 07/16/2016 04/03/2017 Inactive amlodipine 5 mg tablet RxNorm: 377123 TAKE ONE TABLET BY MOUTH DAILY 06/28/2016 08/26/2016 In active metoprolol tartrate 100 mg tablet RxNorm: 567960 Tablet(s) TAKE ONE AN D ONE-HALF (1 & 1/2) TABLET BY MOUTH EVERY MORNING AND TAKE TWO TABLETS BY MOUTH EVERY EVENING 05/02/2016 05/02/2016 Inactive metoprolol tartrate 100 mg tablet RxNorm: 529515 Tablet(s) PO TAKE ONE AND ONE-HALF (1 & 1/2) TABLET BY MOUTH EVERY MORNING AND TAKE TWO TABLETS BY MOUTH EVERY EVENING 05/02/2016 05/01/2016 Inactive metoprolol tartrate 100 mg tablet RxNorm: 445093 Tablet(s) PO TAKE ONE AND ONE-HALF (1 & 1/2) TABLET BY MOUTH EVERY MORNING AND TAKE TWO TABLETS BY MOUTH EVERY EVENING 05/02/2016 10/28/2016 Inactive tramadol 50 mg tablet RxNorm: 857081 1-2 Tablet(s) PO Q8 as needed 04/25/2016 No Stop Date Active atorvastatin 20 mg t ablet RxNorm: 669996 TAKE ONE TABLET BY MO [facility] DAILY 04/25/2016 10/21/2016 In active cyclobenzaprine 10 m g tablet RxNorm: 164909 Tablet(s) PO TAKE ONE TABLET BY MOUTH EVERY 8 HOURS NEEDED 04/18/2016 06/16/2016 Inactive Kenalog 40 mg/mL sylvia pension for injection RxNorm: 8657362 1 Milliliter(s) Inj 04/04/2016 04/04/2016 In active Phenergan with Codei ne Syrup RxNorm: PO 04/03/2016 No Stop Date Active Zithromax Z-Kush 250 mg tablet RxNorm: 774753 1 Tablet(s) PO UD 04/03/2016 04/07/2016 Inactive 2 tabs on day 1 then 1 tab daily on days 2-5 amlodipine 5 mg tablet RxNorm: 450824 TAKE ONE TABLET BY MOUTH DAILY 03/27/2016 06/24/2016 In active Flexeril 10 mg tablet RxNorm: 811694 TAKE ONE TABLET BY MOUTH EVERY 8 HOURS A S NEEDED 03/14/2016 04/02/2016 Inactive Vitamin B-12 ER 2,00 0 mcg tablet,extended release RxNorm: 427528 1 Tablet(s) PO daily 03/13/2016 No Stop Date Active Vitamin B-12 ER 2,00 0 mcg tablet,extended release RxNorm: 716426 1 Tablet(s) PO daily 03/13/2016 No Stop Date Active gabapentin 100 mg ca psule RxNorm: 727280 1 Capsule(s) PO BID 03/13/2016 09/15/2016 Inactive Flexeril 10 mg tablet RxNorm: 773696 Tablet(s) TAKE ONE TABLET BY MOUTH EVERY 8 HOURS NEEDED 02/08/2016 02/27/2016 Inactive Xanax 0.25 mg tablet RxNorm: 898916 1/2-1 Tablet(s) PO QDAY PRN 02/08/2016 07/15/2016 Inactive amlodipine 5 mg tablet RxNorm: 917689 1 Tablet(s) PO daily 02/06/2016 03/26/2016 Inactive furosemide 20 mg tablet RxNorm: 420578 1 Tablet(s) PO daily 01/30/2016 06/16/2016 Inactive amlodipine 10 mg tablet RxNorm: 710976 1/2 Tablet(s) PO daily 01/30/2016 02/05/2016 Inactive doxazosin 4 mg tablet RxNorm: 712106 1.5 Tablet(s) PO BID 01/30/2016 01/23/2017 Inactive Flexeril 10 mg tablet RxNorm: 876312 TAKE ONE TABLET BY MOUTH EVERY 8 HOURS A S NEEDED 01/10/2016 01/29/2016 Inactive potassium chloride E R 10 mEq tablet,extended release RxNorm: 422068 1 Tablet(s) PO PRN as needed with lasix 12/25/2015 06/16/2016 Inactive prn swelling amlodipine 10 mg tablet RxNorm: 541228 TAKE ONE TABLET BY MOUTH EVERY MORNING 12/25/2015 12/24/2015 In active amlodipine 10 mg tablet RxNorm: 939593 TAKE ONE TABLET BY MOUTH EVERY MORNING 12/25/2015 01/29/2016 In active furosemide 20 mg tablet RxNorm: 956426 1/2 Tablet(s) PO daily as needed edema 12/21/2015 01/19/2016 In active pt needs to take 10meq potassium on days she takes the lasix metoprolol tartrate 100 mg tablet RxNorm: 427054 TAKE ONE AND ONE-HALF (1 & 1/2) TABLET BY MOUTH EVERY MORNING AND TAKE TWO TABLETS BY MOUTH EVERY EVENING 11/08/2015 12/07/2015 In active Flonase Allergy Reli ef 50 mcg/actuation nasal spray,suspension RxNorm: [place] as needed PLACE 2 SPRAYS IN EACH NOSTRIL DAILY 10/09/2015 02/05/2016 Inactive Flexeril 10 mg tablet RxNorm: 833547 1 Tablet(s) PO TID PRN TAKE ONE TABLET B Y MOUTH EVERY 8 HOURS NEEDED 10/09/2015 12/07/2015 Inactive alprazolam 0.5 mg ta blet RxNorm: 598310 TAKE ONE TABLET BY [facility] AT BEDTIME NEEDED FOR ANXIETY 08/29/2015 11/23/2015 Inactive Flonase Allergy Reli ef 50 mcg/actuation nasal spray,suspension RxNorm: PLACE 2 SPRAYS IN EACH NOSTRIL DAILY 07/06/2015 10/08/2015 Inactive Kenalog 40 mg/mL sylvia pension for injection RxNorm: 7647862 Milliliter(s) Inj 06/12/2015 06/12/2015 In active prednisone 10 mg tab lets in a dose pack RxNorm: 814301 1 Tablet(s) PO UD 06/12/2015 06/17/2015 In active 6-5-4-3-2-1 acyclovir 800 mg tablet RxNorm: 462102 1 Tablet(s) PO TID 06/12/2015 06/21/2015 Inactive Xanax 0.25 mg tablet RxNorm: 962442 1/2-1 Tablet(s) PO QDAY PRN 05/15/2015 02/07/2016 Inactive Flonase Allergy Reli ef 50 mcg/actuation nasal spray,suspension RxNorm: 2 [place] NASAL daily 05/15/2015 06/13/2015 Inactive Kenalog 40 mg/mL sylvia pension for injection RxNorm: 6040932 Milliliter(s) Inj 05/15/2015 05/15/2015 In active metoprolol tartrate 100 mg tablet RxNorm: 474454 TAKE ONE AND ONE-HALF (1 & 1/2) TABLET BY MOUTH EVERY MORNING AND TAKE TWO TABLETS BY MOUTH EVERY EVENING 05/07/2015 06/05/2015 In active metoprolol tartrate 100 mg tablet RxNorm: 292695 TAKE ONE AND ONE-HALF (1 & 1/2) TABLET BY MOUTH EVERY MORNING AND TAKE TWO TABLETS BY MOUTH EVERY EVENING 04/05/2015 05/04/2015 In active amlodipine 10 mg tablet RxNorm: 184574 TAKE ONE TABLET BY MOUTH EVERY MORNING 03/10/2015 12/04/2015 In active alprazolam 0.5 mg ta blet RxNorm: 046759 TAKE ONE TABLET BY MO [facility] EVERY NIGHT AT BEDTIME NEEDED FOR ANXIETY 02/23/2015 03/24/2015 Inactive (Response to an electronic controlled substance refill request - RxReferenceNumber: [id number]) alprazolam 0.5 mg ta blet RxNorm: 033375 1 Tablet(s) PO QHS as needed anxiety 02/23/2015 08/29/2015 In active (Response to an electronic controlled salas bstance refill request - RxReferenceNumber: [id number]) doxazosin 4 mg tablet RxNorm: 956270 TAKE ONE TABLET BY MOUTH TWICE A DAY 02/13/2015 01/29/2016 In active atorvastatin 20 mg t ablet RxNorm: 861073 TAKE ONE TABLET BY MO UTH EVERY DAY 01/19/2015 07/17/2015 In active atorvastatin 20 mg t ablet RxNorm: 780478 Tablet(s) TAKE ONE TA BLET BY MOUTH EVERY DAY 01/19/2015 01/18/2015 Inactive [SAVINGS FOR NON-COVERED DRUGS -- BIN:3584, PCN: ASPROD1, Group: XXXXX, ID# [id number], Questions: . THIS IS NOT INSURANCE.] Maxzide-25mg 37.5 mg -25 mg tablet RxNorm: 00341 1 Tablet(s) PO daily 01/10/2015 10/08/2015 Inactive [SAVINGS FOR NON-COVERED DRUGS -- BIN:5, PCN: ASPROD1, Group: XXXXX, ID# [id number], Questions: . THIS IS NOT INSURANCE.] metoprolol tartrate 100 mg tablet RxNorm: 742261 TAKE ONE AND ONE-HALF (1 & 1/2) TABLET BY MOUTH EVERY MORNING AND TAKE TWO TABLETS BY MOUTH EVERY EVENING 12/05/2014 01/03/2015 In active Flexeril 10 mg tablet RxNorm: 891017 TAKE ONE TABLET BY MOUTH EVERY 8 HOURS A S NEEDED 10/31/2014 06/27/2015 Inactive alprazolam 0.5 mg ta blet RxNorm: 014504 1 Tablet(s) PO QHS TA KE ONE TABLET BY MOUTH EVERY NIGHT AT BEDTIME AND NEEDED FOR PANIC ATTACKS 10/21/2014 10/23/2014 Inactive (Appended: Controlled substance eRx refi ll - RxReferenceNumber: [id number]) alprazolam 0.5 mg ta blet RxNorm: 853782 TAKE ONE TABLET BY MO U[facility] EVERY NIGHT AT BEDTIME NEEDED FOR ANXIETY 10/20/2014 11/18/2014 Inactive (Response to an electronic controlled substance refill request - RxReferenceNumber: [id number]) amlodipine 10 mg tablet RxNorm: 767974 1 Tablet(s) PO QAM 09/09/2014 03/07/2015 Inactive now taking full tab [SAVINGS FOR UNINSURED PATIENTS -- BIN:879055, PCN: ASPROD1, Group: [id number], ID# [id number], Process claim through [employer], for questions: . THIS IS NOT INSURANCE.] metoprolol tartrate 100 mg tablet RxNorm: 346728 TAKE ONE AND ONE-HALF (1 & 1/2) TABLET BY MOUTH EVERY MORNING AND TAKE TWO TABLETS BY MOUTH EVERY EVENING 09/03/2014 10/02/2014 In active alprazolam 0.5 mg ta blet RxNorm: 331978 TAKE ONE TABLET BY MO U[facility] EVERY NIGHT AT BEDTIME AND NEEDED FOR PANIC ATTACKS 08/29/2014 09/12/2014 Inactive (Response to an electronic controlled substance refill request - RxReferenceNumber: [id number]) Zithromax Z-Kush 250 mg tablet RxNorm: 746769 1 Tablet(s) PO UD 07/26/2014 07/25/2014 Inactive 2 tabs on day 1 then 1 tab daily on days 2-5 Zithromax Z-Kush 250 mg tablet RxNorm: 510022 1 Tablet(s) PO UD 07/26/2014 07/30/2014 Inactive 2 tabs on day 1 then 1 tab daily on days 2-5 alprazolam 0.5 mg ta blet RxNorm: 697332 Tablet(s) PO TAKE ONE TABLET BY MOUTH EVERY NIGHT AT BEDTIME AND NEEDED FOR PANIC ATTACKS 07/08/2014 08/30/2014 Inactive (Appended: Controlled substance eRx refill - RxReferenceNumber: [id number]) atorvastatin 20 mg t ablet RxNorm: 574914 TAKE ONE TABLET BY MO [facility] EVERY DAY 04/25/2014 01/18/2015 In active Carafate 1 gram tablet RxNorm: 823668 Tablet(s) PO TAKE ONE TABLET BY MOUTH FO UR TIMES A DAY 04/14/2014 10/08/2015 Inactive Fish Oil 1,000 mg ca psule RxNorm: 1 Capsule(s) PO TID 04/13/2014 10/08/2015 Inactive Flexeril 10 mg tablet RxNorm: 850638 1 Tablet(s) PO Q8 PRN 04/01/2014 04/10/2014 Inactive Carafate 1 gram tablet RxNorm: 942777 1 Tablet(s) PO QID 03/10/2014 04/08/2014 Inactive chlordiazepoxide-cli dinium 5 mg-2.5 mg capsule RxNorm: 988787 1 Capsule(s) PO TID P RN 03/10/2014 04/10/2014 Inactive doxazosin 4 mg tablet RxNorm: 979787 1 Tablet(s) PO BID 02/02/2014 02/12/2015 Inactive Kenalog 40 mg/mL sylvia pension for injection RxNorm: 0745356 Milliliter(s) Inj 02/02/2014 02/02/2014 In active atorvastatin 20 mg t ablet RxNorm: 029683 Tablet(s) PO TAKE ONE TABLET BY MOUTH EVERY DAY 01/10/2014 04/24/2014 Inactive alprazolam 0.5 mg ta blet RxNorm: 266718 Tablet(s) PO TAKE ONE TABLET BY MOUTH EVERY NIGHT AT BEDTIME AND NEEDED FOR PANIC ATTACKS 01/10/2014 07/07/2014 Inactive (Appended: Controlled substance eRx refill - RxReferenceNumber: [id number]) alprazolam 0.5 mg ta blet RxNorm: 438893 1 Tablet(s) PO QHS TA KE ONE TABLET BY MOUTH EVERY NIGHT AT BEDTIME AND NEEDED FOR PANIC ATTACKS 01/10/2014 10/20/2014 Inactive (Appended: Controlled substance eRx refi ll - RxReferenceNumber: [id number]) alprazolam 0.5 mg ta blet RxNorm: 599368 Tablet(s) PO TAKE ONE TABLET BY MOUTH EVERY NIGHT AT BEDTIME AND NEEDED FOR PANIC ATTACKS 01/10/2014 01/09/2014 Inactive (Appended: Controlled substance eRx refill - RxReferenceNumber: [id number]) Carafate 1 gram tablet RxNorm: 462720 1 Tablet(s) PO QID 12/16/2013 01/14/2014 Inactive Nexium 40 mg capsule ,delayed release RxNorm: 420257 Capsule(s) PO TAKE ON E CAPSULE BY MOUTH EVERY DAY 11/25/2013 03/12/2016 Inactive doxazosin 4 mg tablet RxNorm: 039564 1/2 Tablet(s) PO QPM 10/21/2013 10/20/2013 Inactive alprazolam 0.5 mg ta blet RxNorm: 849952 1 Tablet(s) PO as dir ected q hs and prn panic attacks 10/18/2013 01/10/2014 Inactive doxazosin 4 mg tablet RxNorm: 647393 1 q am 1/2 q pm Tablet(s) PO 09/21/2013 02/01/2014 Inactive doxazosin 4 mg tablet RxNorm: 490271 1 q am 1/2 q pm Tablet(s) PO 09/21/2013 09/20/2013 Inactive amlodipine 10 mg tablet RxNorm: 253502 1 Tablet(s) PO QAM 08/30/2013 08/24/2014 Inactive now taking full tab metoprolol tartrate 100 mg tablet RxNorm: 344682 2 Tablet(s) PO QPM 08/24/2013 10/22/2013 Inactive alprazolam 0.5 mg ta blet RxNorm: 156334 1 Tablet(s) PO as dir ected q hs and prn panic attacks 07/29/2013 10/17/2013 Inactive Benicar 20 mg tablet RxNorm: 555989 1 Tablet(s) PO daily 07/26/2013 08/09/2013 Inactive amlodipine 10 mg tablet RxNorm: 776149 1 Tablet(s) PO QAM 07/19/2013 08/29/2013 Inactive cyclobenzaprine 5 mg tablet RxNorm: 926232 1 Tablet(s) PO TID [place] N one pill every 8 hours as needed for muscle spasms. 07/19/2013 03/31/2014 Inactive Kenalog 40 mg/mL Sylvia p for Injection RxNorm: 6004957 1 Milliliter(s) Inj 06/30/2013 06/30/2013 In active prednisone 10 mg tab lets in a dose pack RxNorm: 488279 1 Tablet(s) PO as doc tor directed take steroid taper as directed on box 06/30/2013 07/09/2013 Inactive disp ense one PACK meclizine 25 mg tablet RxNorm: 840644 1 Tablet(s) PO Q6 PRN 1/2 - 1 pill every 6 hours as needed for vertigo 06/30/2013 08/10/2013 Inactive metoprolol tartrate 100 mg tablet RxNorm: 595593 1.5 Tablet(s) PO BID 06/30/2013 08/23/2013 In active metoprolol tartrate 100 mg tablet RxNorm: 658945 1 Tablet(s) PO BID 06/24/2013 06/29/2013 Inactive metoprolol tartrate 100 mg tablet RxNorm: 773287 1 Tablet(s) PO daily 06/17/2013 06/23/2013 In active metoprolol tartrate 100 mg tablet RxNorm: 761004 1 Tablet(s) PO daily 06/17/2013 06/16/2013 In active Toprol XL 100 mg tab let,extended release RxNorm: 536121 Tablet(s) PO TAKE ONE AND ONE- HALF TABLET BY MOUTH EVERY MORNING AND ONE TABLET IN THE EVENING 05/05/2013 06/22/2013 In active alprazolam 0.5 mg ta blet RxNorm: 050794 1 Tablet(s) PO as dir ected q hs and prn panic attacks 04/06/2013 07/28/2013 Inactive doxazosin 4 mg tablet RxNorm: 910007 Tablet(s) PO TAKE ONE TABLET BY MOUTH EV KANE DAY 04/01/2013 09/20/2013 Inactive Toprol XL 100 mg tab let,extended release RxNorm: 398818 Tablet(s) PO TAKE ONE AND ONE- HALF TABLET BY MOUTH EVERY MORNING AND ONE TABLET IN THE EVENING 12/25/2012 05/04/2013 In active Lasix 20 mg tablet RxNorm: 172788 1 Tablet(s) PO QDAY PRN Take 1 tab daily x 3 days then as needed 12/02/2012 04/10/2014 Inactive potassium chloride E R 20 mEq tablet,extended release(part/cryst) RxNorm: 447763 1 Tablet(s) PO PRN 12/02/2012 10/04/2013 Inactive prn swelling alprazolam 0.5 mg ta blet RxNorm: 225692 1 Tablet(s) PO as dir ected q hs and prn panic attacks 12/01/2012 04/05/2013 Inactive amlodipine 10 mg tablet RxNorm: 400610 1/2 Tablet(s) PO QAM 12/01/2012 07/18/2013 Inactive fluconazole 150 mg t ablet RxNorm: 305716 1 Tablet(s) PO daily 11/16/2012 11/20/2012 Inactive fluconazole 150 mg t ablet RxNorm: 934869 1 Tablet(s) PO daily 11/16/2012 11/15/2012 Inactive Nexium 40 mg capsule ,delayed release RxNorm: 822563 1 Capsule(s) PO daily 10/23/2012 11/16/2013 In active acyclovir 400 mg tablet RxNorm: 340578 1 Tablet(s) PO TID 10/19/2012 10/28/2012 Inactive chlordiazepoxide-cli dinium 5 mg-2.5 mg capsule RxNorm: 487202 1 Capsule(s) PO TID P RN 2012 12/22/2013 Inactive Voltaren 1 % Topical Gel RxNorm: 274964 4 Gram(s) TOP QID pt is to use 2 grams to each hand and 4 grams to knees. 08/18/2012 04/10/2014 Inactive doxazosin 4 mg tablet RxNorm: 801774 1 Tablet(s) PO QAM 08/18/2012 10/16/2012 Inactive atorvastatin 20 mg t ablet RxNorm: 753984 1 Tablet(s) PO HS 08/12/2012 08/11/2012 Inactive may have #90 x3 infection atorvastatin 20 mg t ablet RxNorm: 719410 1 Tablet(s) PO HS 08/12/2012 09/05/2013 Inactive may have #90 x3 infection doxazosin 4 mg tablet RxNorm: 813326 1 Tablet(s) PO daily 08/11/2012 08/17/2012 Inactive clonidine 0.1 mg/24 hr Weekly Transderm Patch RxNorm: 900630 1 Patch TD QW 08/04/2012 08/10/2012 In active Influenza Virus Vacc ine 0.5 mL RxNorm: IM 08/04/2012 08/04/2012 Inactive cyclobenzaprine 5 mg tablet RxNorm: 337782 1 Tablet(s) PO TID [place] N one pill every 8 hours as needed for muscle spasms. 07/13/2012 11/09/2012 Inactive cyclobenzaprine 5 mg tablet RxNorm: 284765 1 Tablet(s) PO TID [place] N one pill every 8 hours as needed for muscle spasms. 07/09/2012 07/12/2012 Inactive gabapentin 100 mg ca psule RxNorm: 875174 1 Capsule(s) PO TID 07/01/2012 12/01/2012 Inactive atorvastatin 20 mg t ablet RxNorm: 397729 1/2 Tablet(s) PO daily 07/01/2012 08/11/2012 Inactive may of day supply if cheaper Toprol XL 100 mg tab let,extended release RxNorm: 628224 Tablet(s) PO BID 11/2 in am and 1 in evening 07/01/2012 06/16/2013 Inactive 1 1/2 q am 1 in [place] alprazolam 0.5 mg ta blet RxNorm: 572735 1 Tablet(s) PO as dir ected q hs and prn panic attacks 06/24/2012 11/30/2012 Inactive amlodipine 10 mg tablet RxNorm: 845540 1 Tablet(s) PO QAM 06/19/2012 11/30/2012 Inactive benazepril 20 mg tablet RxNorm: 778949 1 Tablet(s) PO daily 06/19/2012 06/13/2013 Inactive one daily at noon Toprol XL 100 mg tab let,extended release RxNorm: 930756 Tablet(s) PO BID 06/19/2012 06/30/2012 In active 1 1/2 q am 1 in [place] Toprol XL 100 mg tab let,extended release RxNorm: 644006 1 1/2 Tablet(s) PO BI D 04/27/2012 06/18/2012 In active 90 or 30 day supply, whatever ins will a llow Lotrel 10 mg-20 mg Cap RxNorm: 812356 1 Capsule(s) PO daily 04/20/2012 08/04/2012 Inactive estradiol 0.5 mg Tab RxNorm: 504622 1 Tablet(s) PO BID 04/20/2012 12/02/2012 Inactive Toprol XL 100 mg 24 hr Tab RxNorm: 420360 1 1/2 Tablet(s) PO BID 04/14/2012 04/26/2012 Inactive Toprol XL 100 mg 24 hr Tab RxNorm: 779010 Tablet(s) PO daily 03/31/2012 04/13/2012 Inactive new directions: one q am 1/2 every evepl ease put on file until she needs filled Lipitor 10 mg tablet RxNorm: 517560 1 Tablet(s) PO daily 03/31/2012 12/02/2012 Inactive march of day supply if cheaper Toprol XL 100 mg 24 hr Tab RxNorm: 645811 1 Tablet(s) PO daily 03/11/2012 03/30/2012 Inactive Boniva 150 mg Tab RxNorm: 827429 1 Tablet(s) PO weekly 02/19/2012 12/02/2012 Inactive Detrol LA 4 mg capsu le,extended release RxNorm: 123644 1 Capsule(s) PO daily 02/19/2012 03/12/2016 In active doxycycline hyclate 100 mg Tab RxNorm: 888514 1 Tablet(s) PO BID 01/23/2012 02/25/2012 Inactive Rocephin 500 mg Solu tion for Injection RxNorm: 178471 1 Milliliter(s) Inj 01/23/2012 01/23/2012 In active Kenalog 40 mg/mL Sylvia p for Injection RxNorm: 0297155 1 Milliliter(s) Inj 01/23/2012 01/23/2012 In active cyclobenzaprine 5 mg tablet RxNorm: 462167 1 Tablet(s) PO TID [place] N one pill every 8 hours as needed for muscle spasms. 12/20/2011 04/17/2012 Inactive clonidine 0.1 mg Tab RxNorm: 842554 1 Tablet(s) PO BID 12/20/2011 02/25/2012 Inactive Vitamin D3 5,000 uni t tablet RxNorm: 656913 1 Tablet(s) PO daily No Start Date Active Nexium 24HR 22.3 mg capsule,delayed release RxNorm: 156585 1 Capsule(s) PO daily as needed No Start Date Active Fish Oil 360 mg-1,20 0 mg capsule,delayed release RxNorm: 1 Capsule(s) PO daily No Start Date Active Lotrel 10 mg-20 mg Cap RxNorm: 459603 1 Capsule(s) PO daily No Start Date 02/24/2012 Inactive benazepril 20 mg tablet RxNorm: 415141 1 Tablet(s) PO No Start Date 06/18/2012 Inactive one daily at noon Vimovo 500 mg-20 mg multiphase, immed & delay rel Tab RxNorm: 051828 1 Tablet(s) PO BID No Start Date 12/01/2012 Inactive B12 1000 mcg RxNorm: 2 IM daily No Start Date 03/12/2016 Inactive Fish Oil 1,000 mg ca psule RxNorm: 1 Capsule(s) PO BID No Start Date 04/12/2014 Inactive Benicar 40 mg tablet RxNorm: 902236 1 Tablet(s) PO daily No Start Date 10/24/2013 Inactive Carafate 1 gram tablet RxNorm: 209758 Oral No Start Date 12/15/2013 Inactive Vitamin B-12 1,000 m cg tablet RxNorm: 771246 1 Tablet(s) PO daily No Start Date 03/12/2016 Inactive amlodipine 10 mg tablet RxNorm: 638612 1 Tablet(s) PO daily No Start Date 06/18/2012 Inactive Phenergan VC-Codeine 6.25 mg-5 mg-10 mg/5 mL Syrup RxNorm: 826638 5-10 Milliliter(s) PO Q6 PRN No Start Date 04/10/2014 Inactive Celebrex 200 mg capsule RxNorm: 464564 1 Capsule(s) PO daily No Start Date 10/08/2015 Inactive Percocet 5 mg-325 mg tablet RxNorm: 0056918 1-2 Tablet(s) PO Q6 PRN No Start Date 06/16/2014 Inactive Exforge 10 mg-320 mg Tab RxNorm: 498655 1 Tablet(s) PO daily sample No Start Date 05/20/2012 Inactive Lipitor 10 mg Tab RxNorm: 113076 1 Tablet(s) PO daily No Start Date 03/30/2012 Inactive tramadol 50 mg tablet RxNorm: 148528 1-2 Tablet(s) PO Q8 as needed No Start Date 04/24/2016 Inactive Lasix 20 mg tablet RxNorm: 171375 1 Tablet(s) PO QDAY PRN Take 1 tab daily x 3 days then as needed No Start Date 12/01/2012 Inactive potassium chloride E R 20 mEq tablet,extended release(part/cryst) RxNorm: 0982469 1 Tablet(s) PO QDAY PRN No Start [place] e 12/01/2012 Inactive Toprol XL 100 mg 24 hr Tab RxNorm: 721590 1 Tablet(s) PO daily No Start Date 03/10/2012 Inactive MIDRIN 325 mg-65 mg- 100 mg Cap RxNorm: 613551 1 Capsule(s) PO PRN No Start Date 05/20/2012 Inactive Nexium 40 mg capsule ,delayed release RxNorm: 646208 1 Capsule(s) PO daily No Start Date 10/22/2012 Inactive Detrol LA 4 mg 24 hr Cap RxNorm: 128017 Oral No S tart Date 02/18/2012 Inactive Boniva 150 mg Tab RxNorm: 064305 Oral No Start Date 02/18/2012 Inactive Flexeril 10 mg tablet RxNorm: 151786 1 Tablet(s) PO Q8 PRN No Start Date 03/31/2014 Inactive clidinium bromide Oral RxNorm: Oral No Start Date 12/01/2012 Inactive alprazolam 0.5 mg ta blet RxNorm: 826574 1 Tablet(s) PO as dir ected q hs and prn panic attacks No Start Date 06/23/2012 Inactive chlordiazepoxide Oral RxNorm: Oral No Start Date 12/01/2012 Inactive metoprolol tartrate 100 mg tablet RxNorm: 400963 Tablet(s) PO TAKE ONE AND ONE-HALF (1 & 1/2) TABLET BY MOUTH EVERY MORNING AND TAKE TWO TABLETS BY MOUTH EVERY EVENING No Start Date 08/03/2014 Inactive furosemide 20 mg tablet RxNorm: 769483 1 Tablet(s) PO daily No Start Date 01/29/2016 Inactive Calcium Oral RxNorm: Oral No Start Date 03/12 Inactive Nasonex 50 mcg/actua tion [place] RxNorm: 277565 1 [place] NASAL BID No Start Date 04/10/2014 Inactive Medication Administered Medication Codes Instruc tions Start Date Status Kenalog 40 mg/mL suspension for injection RxNorm: 5836822 2Milliliter 03/21/2017 N o longer Active Kenalog 40 mg/mL suspension for injection RxNorm: 5645905 1Milliliter 04/04/2016 N o longer Active Kenalog 40 mg/mL suspension for injection RxNorm: 9215525 Milliliter 06/12/2015 No longer Active Kenalog 40 mg/mL suspension for injection RxNorm: 8778853 Milliliter 05/15/2015 No longer Active Kenalog 40 mg/mL suspension for injection RxNorm: 5959271 Milliliter 02/02/2014 No longer Active Kenalog 40 mg/mL Susp for Injection RxNorm: 4497194 1Milliliter 06/30/2013 N o longer Active Influenza Virus Vaccine 0.5 mL RxNorm: 08/04/2012 No longer Active Rocephin 500 mg Solution for Injection RxNorm: 330591 1Milliliter 01/23/2012 N o longer Active Kenalog 40 mg/mL Susp for Injection RxNorm: 0121303 1Milliliter 01/23/2012 N o longer Active Immunizations Vaccine Codes Date Status Pneumococcal (Adult) CVX: 33 09/16/2016 completed Influenza [...] completed Assessments Condition Codes Effectiv e Dates Mixed hyperlipidemia ICD-10: E78.2 ICD-9: 272.2 05/13/2017 Essential (primary) hypertension ICD -10: I10 ICD-9: 401.9 05/13/2017 Allergic contact dermatitis due to plants, except food ICD-10: L23.7 ICD-9: 692.6 03/21/2017 Bitten or stung by nonvenomous insect an d other nonvenomous arthropods, initial encounter ICD-10: W57.XXXA ICD-9: 919.4 03/19/2017 Cellulitis of left lower limb ICD-10 : L03.116 ICD-9: 682.6 03/19/2017 Encounter for general adult medical exam ination with abnormal findings ICD-10: Z00.01 ICD-9: V70.0 01/22/2017 Other specified epidermal thickening ICD-10: L85.8 ICD-9: 757.39 01/14/2017 Type 2 diabetes mellitus without complications ICD-10: E11.9 ICD-9: 250.00 01/14/2017 Glossodynia ICD-10: K14.6 ICD-9: 529.6 09/23/2016 Encounter for screening mammogram for ma lignant neoplasm of breast ICD-10: Z12.31 ICD-9: V76.12 09/16/2016 Encounter for immunization ICD-10: Z 23 ICD-9: V03.82 09/16/2016 Diseases of lips ICD-10: K13.0 ICD-9: 528.5 06/25/2016 Allergic rhinitis due to pollen ICD- 10: J30.1 ICD-9: 477.9 06/25/2016 Other allergic rhinitis ICD-10: J30. 89 ICD-9: 477.8 04/04/2016 Other acute sinusitis ICD-10: J01.80 ICD-9: 461.8 04/04/2016 Acute laryngopharyngitis ICD-10: J06 .0 ICD-9: 465.0 04/04/2016 Localized edema ICD-10: R60.0 ICD-9: 782.3 03/13/2016 Polyneuropathy, unspecified ICD-10: G62.9 ICD-9: 356.9 03/13/2016 Cervicalgia ICD-10: M54.2 ICD-9: 723.1 10/09/2015 VACCIN FOR INFLUENZA ICD-9: V04.81 07/28/2015 Contact dermatitis ICD-9: 692.9 06/12/2015 Anxiety ICD-9: 300.00 DIABETES TYPE II ICD-9: 250.00 06/05/2015 ESSENTIAL HYPERTENSION ICD-9: 401.9 06/05/2015 ALLERGIC RHINITIS ICD-9: 477.9 05/15/2015 ESOPHAGEAL REFLUX ICD-9: 530.81 05/15/2015 EDEMA ICD-9: 782.3 01/10 VACCIN FOR [...] Reason For Visit Effective Dates Notes hypertension 05/13/2017 rash 03/21/2017 arthropod bite 03/19/2017 [...] Ord2 RDW 14.8 % 06/05/2015 Comp Metabolic Gmn657 NA 138 mEq/L 06/05/2015 Comp Metabolic Xme404 K 4.3 mEq/L 06/05/2015 Comp Metabolic Ezp965 CL 100 mEq/L 06/05/2015 Comp Metabolic Mqt887 CO2 29.0 mEq/L 06/05/2015 Comp Metabolic Urp621 AN ION GAP 13 06/05/2015 Comp Metabolic Ewo194 GL UCOSE 85 mg/dL 06/05/2015 Comp Metabolic Zgx825 Cr eat 0.7 mg/dL 06/05/2015 Comp Metabolic Mjd299 eG FR 94 ml/min/1.73m2 06/05 Comp Metabolic Amg938 BUN 16 mg/dL 06/05/2015 Comp Metabolic Rxn256 B/ C Ratio 24.2 Ratio 06/05/2015 Comp Metabolic Njk461 CA LCIUM 9.5 mg/dL 06/05/2015 Comp Metabolic Txv577 AL K PHOS 69 U/L 06/05/2015 Comp Metabolic Urc254 T(SGOT) 22 U/L 06/05/2015 Comp Metabolic Mnb078 AL T(SGPT) 26 U/L 06/05/2015 Comp Metabolic Ncn572 BI LI T 0.5 mg/dL 06/05/2015 Comp Metabolic Rsf699 AL BUMIN 4.2 g/dL 06/05/2015 Comp Metabolic Xfp420 TP RO 6.1 g/dL 06/05/2015 Comp Metabolic Lsb412 GL OB 1.9 g/dL 06/05/2015 Comp Metabolic Rsm424 A/ G Ratio 2.2 Ratio 06/05/2015 Comp Metabolic Mzh974 Os mo 276 mOsmo 06/05/2015 Tsh Ord6 hTSH II 1.99 uIU/mL 06/05/2015 Lipid Ord30 CHOL 171 mg/dL 06/05/2015 Lipid Ord30 HDL 55.0 mg/dl 06/05/2015 Lipid Ord30 TRIG 178 mg/dL 06/05/2015 Lipid Ord30 LDL 80 mg/dL 06/05/2015 Lipid Ord30 C/HDL 3.1 Ratio 06/05/2015 %Hba1C Hzw588 % HbA1c 94152-6 5.7 % 06/05/2015 %Hba1C Lxt829 Gluc Ave 117 mg/dL 06/05/2015 A1C HPLC 2033019 A1C HPLC 22608-1 5.6 % 07/15/2014 GFR CALC 8940835 GFR AA >60 ML/MIN 07/15/2014 GFR CALC 6135314 GFR NON -AA >60 ML/MIN 07/15/2014 CHEM 14 4645904 AST 21 U/L 07/15/2014 CHEM 14 0318106 ALT 23 IU/L 07/15/2014 CHEM 14 9880443 BUN 14 MG/DL 07/15/2014 CHEM 14 4832880 ALBUMIN 4.2 GM/DL 07/15/2014 CHEM 14 4513606 CHLORIDE 104 MMOL/L 07/15/2014 CHEM 14 4354291 BILI TOT 0.4 MG/DL 07/15/2014 CHEM 14 3708853 ALK PHOS 88 U/L 07/15/2014 CHEM 14 6104222 SODIUM 140 MMOL/L 07/15/2014 CHEM 14 7272501 CREATINI NE 0.63 MG/DL 07/15/2014 CHEM 14 1252287 CALCIUM 9.4 MG/DL 07/15/2014 CHEM 14 5724240 POTASSIUM 4.0 MMOL/L 07/15/2014 CHEM 14 2884423 PROT TOT 6.4 GM/DL 07/15/2014 CHEM 14 8062012 GLUCOSE 90 MG/DL 07/15/2014 CHEM 14 3458508 BICARB 30 MMOL/L 07/15/2014 CHEM 14 6415522 ANION GAP 6 MEQ/L 07/15/2014 A1C HPLC 0051704 A1C HPLC 09389-5 6.0 % 04/13/2014 TSH 1553192 TSH 1.875 uIU/ML 04/12/2014 CHEM 14 3290178 AST 17 U/L 04/12/2014 CHEM 14 0988615 ALT 20 IU/L 04/12/2014 CHEM 14 7755219 BUN 14 MG/DL 04/12/2014 CHEM 14 3449860 ALBUMIN 4.2 GM/DL 04/12/2014 CHEM 14 6447327 CHLORIDE 104 MMOL/L 04/12/2014 CHEM 14 7929014 BILI TOT 0.3 MG/DL 04/12/2014 CHEM 14 6168749 ALK PHOS 80 U/L 04/12/2014 CHEM 14 8169804 SODIUM 141 MMOL/L 04/12/2014 CHEM 14 2064886 CREATINI NE 0.62 MG/DL 04/12/2014 CHEM 14 0571401 CALCIUM 9.4 MG/DL 04/12/2014 CHEM 14 5945173 POTASSIUM 3.5 MMOL/L 04/12/2014 CHEM 14 7419898 PROT TOT 6.5 GM/DL 04/12/2014 CHEM 14 3917172 GLUCOSE 89 MG/DL 04/12/2014 CHEM 14 9358487 BICARB 29 MMOL/L 04/12/2014 CHEM 14 1530651 ANION GAP 8 MEQ/L 04/12/2014 LIPID GRP HDL TE ST 59 MG/DL 04/12/2014 LIPID GRP TRIG 177 MG/DL 04/12/2014 LIPID GRP TEST L DL 106 MG/DL 04/12/2014 LIPID GRP CHOL 200 MG/DL 04/12/2014 LIPID GRP RCHOL/ HDL 3.39 RATIO 04/12/2014 CBC 0778905 WBC 4.6 10e9/L 04/12/2014 CBC 9048558 RBC 4.52 10e12/L 04/12/2014 CBC 3955637 HGB 13.1 g/dL 04/12/2014 CBC 2433622 HCT DET 39.2 % 04/12/2014 CBC 4556022 MCV 86.7 fL 04/12/2014 CBC 4557596 MCH 29.0 pg 04/12/2014 CBC 4129294 MCHC 33.4 g/dL 04/12/2014 CBC 7791814 PLT 233 10e9/L 04/12/2014 CBC 2868366 MPV 9.8 fL 04/12/2014 CBC 8328184 AN % 59.5 % 04/12/2014 CBC 1679217 LY % 28.6 % 04/12/2014 CBC 9557848 MON % 10.0 % 04/12/2014 CBC 7435397 EOS % 1.5 % 04/12/2014 CBC 1867974 BASO % 0.4 % 04/12/2014 CBC 6362956 RDW 13.7 % 04/12/2014 CBC 0624008 ABS AN 2.74 10e9/L 04/12/2014 CBC 1128796 ABS LYMPH 1.32 10e9/L 04/12/2014 CBC 1399025 ABS MONO 0.46 10e9/L 04/12/2014 CBC 1696554 ABS EOS 0.07 10e9/L 04/12/2014 CBC 2891762 ABS BASO 0.02 10e9/L 04/12/2014 CBC 3180317 RDW-SD 42.6 fL 04/12/2014 GFR CALC 1311353 GFR AA >60 ML/MIN 04/12/2014 GFR CALC 9983362 GFR NON -AA >60 ML/MIN 04/12/2014 LIPID GRP HDL TE ST 57 MG/DL 08/24/2013 LIPID GRP TRIG 183 MG/DL 08/24/2013 LIPID GRP TEST L DL 64 MG/DL 08/24/2013 LIPID GRP CHOL 158 MG/DL 08/24/2013 LIPID GRP RCHOL/ HDL 2.77 RATIO 08/24/2013 GFR CALC 0003564 GFR AA >60 ML/MIN 08/24/2013 GFR CALC 6219416 GFR NON -AA >60 ML/MIN 08/24/2013 CHEM 14 8550136 AST 13 U/L 08/24/2013 CHEM 14 7165351 ALT 15 IU/L 08/24/2013 CHEM 14 8821464 BUN 14 MG/DL 08/24/2013 CHEM 14 4849234 ALBUMIN 4.3 GM/DL 08/24/2013 CHEM 14 4234612 CHLORIDE 106 MMOL/L 08/24/2013 CHEM 14 5303909 BILI TOT 0.3 MG/DL 08/24/2013 CHEM 14 9975995 ALK PHOS 75 U/L 08/24/2013 CHEM 14 8820020 SODIUM 141 MMOL/L 08/24/2013 CHEM 14 8178703 CREATINI NE 0.56 MG/DL 08/24/2013 CHEM 14 2507063 CALCIUM 9.1 MG/DL 08/24/2013 CHEM 14 5897555 POTASSIUM 4.2 MMOL/L 08/24/2013 CHEM 14 6774378 PROT TOT 6.0 GM/DL 08/24/2013 CHEM 14 4152305 GLUCOSE 83 MG/DL 08/24/2013 CHEM 14 0514702 BICARB 28 MMOL/L 08/24/2013 CHEM 14 6138293 ANION GAP 7 MEQ/L 08/24/2013 CBC 0668169 WBC 4.7 10e9/L 08/24/2013 CBC 9075983 RBC 4.33 10e12/L 08/24/2013 CBC 9624342 HGB 12.5 g/dL 08/24/2013 CBC 3915068 HCT DET 38.2 % 08/24/2013 CBC 0422829 MCV 88.2 fL 08/24/2013 CBC 8115619 MCH 28.9 pg 08/24/2013 CBC 5090297 MCHC 32.7 g/dL 08/24/2013 CBC 6208309 PLT 218 10e9/L 08/24/2013 CBC 1817864 MPV 10.4 fL 08/24/2013 CBC 4658461 AN % 61.9 % 08/24/2013 CBC 5793288 LY % 24.8 % 08/24/2013 CBC 9890296 MON % 10.3 % 08/24/2013 CBC 1519158 EOS % 2.1 % 08/24/2013 CBC 7475957 BASO % 0.9 % 08/24/2013 CBC 6640786 RDW 14.6 % 08/24/2013 CBC 6667947 ABS AN 2.91 10e9/L 08/24/2013 CBC 9784044 ABS LYMPH 1.17 10e9/L 08/24/2013 CBC 4047565 ABS MONO 0.48 10e9/L 08/24/2013 CBC 4563366 ABS EOS 0.10 10e9/L 08/24/2013 CBC 0424321 ABS BASO 0.04 10e9/L 08/24/2013 CBC 4374321 RDW-SD 46.7 fL 08/24/2013 TSH 1861006 TSH 1.208 uIU/ML 08/24/2013 Review of Systems System Result Effective Dates Constitutional No recent illness 05/13/2017 Constitutional No [...] No alteration of consciousness 04/03/2016 Psychiatric anxiety 06/0 11/2015 Ears/Nose/Throat/Neck postnasal drip 04/03/2016 Neurologic No [...] clear 07/19/2014 None Full Exam - General 1995 Ears/Nose/Throat oral cavity/pharynx/larynx Overall: no masses 07/19/2014 [...] retractions 06/24/2013 None Full Exam - General 1995 Respiratory respiratory effort/rhythm Overall: normal rate 06/24/2013 [...] Date TRIAMCINOLONE ACET I [place] NOS CPT-4: Y2992Hliprvx 03/21/2017 PPPS, SUBSEQ VISIT CPT-4: N9298Lvhwocd 01/22/2017 ADMIN PNEUMOCOCCAL V ACCINE SNOMED CT: 52536496 CPT-4: U0728Mcydgqv 09/16/2016 Pneumococcal Polysac charide Vaccine, 23-Valent, Ad CPT-4: 88464Aqxeexu 09/16/2016 THER/PROPH/DIAG INJ SC/IM CPT-4: 46088Mpcnlmp 04/04/2016 TRIAMCINOLONE ACET I [place] NOS CPT-4: L5379Osxgjfo 04/04/2016 ADMIN INFLUENZA VIRU S VAC CPT-4: C1885Usdmxzk 07/28/2015 FLU VACC 4 XIMENA 3 YRS PLUS IM Formatting Model/CDA Sections, Assigned to/Jen Cota SNOMED CT: 62382578 CPT-4: 58261Guvcbdv 07/28/2015 TRIAMCINOLONE ACET I [place] NOS CPT-4: Y9559Fvvqfmu 06/12/2015 TRIAMCINOLONE ACET I [place] NOS CPT-4: I9524Syqvwkw 05/15/2015 ADMIN INFLUENZA VIRU S VAC CPT-4: O8130Hcogpvi 07/19/2014 FLU VAC NO PRSV 4 VA L 3 YRS+ Assigned to/Jen Cota CPT-4: 86221Wvewedy 07/19/2014 TRIAMCINOLONE ACET I [place] NOS CPT-4: E6335Zgcynrb 02/02/2014 ROUTINE VENIPUNCTURE CPT-4: 56023Rlgsgji 08/24/2013 ADMIN INFLUENZA VIRU S VAC CPT-4: C4768Zdwezqu 07/26/2013 FLULAVAL VACC, 3 YRS & >, IM CPT-4: G5177Vtfovyq 07/26/2013 TRIAMCINOLONE ACET I [place] NOS CPT-4: V4951Qqiajoi 06/30/2013 PRESCRIP TRANSMIT A ERX SY CPT-4: W4824Adnqcil 06/30/2013 PRESCRIP TRANSMIT A ERX SY CPT-4: J4367Ksxissp 12/01/2012 PRESCRIP TRANSMIT A ERX SY CPT-4: K6167Qovujwa 10/19/2012 PRESCRIP TRANSMIT A ERX SY CPT-4: R4265Rvmjygn 10/07/2012 PRESCRIP TRANSMIT A ERX SY CPT-4: Q8247Syadnrv 2012 PRESCRIP TRANSMIT A ERX SY CPT-4: R7939Chhzxae 08/18/2012 ADMIN INFLUENZA VIRU S VAC CPT-4: B0465Yyjcemf 08/04/2012 FLULAVAL VACC, 3 YRS & >, IM CPT-4: N5774Fftxiwt 08/04/2012 PRESCRIP TRANSMIT A ERX SY CPT-4: I1923Xwihhyt 08/04/2012 PRESCRIP TRANSMIT A ERX SY CPT-4: Z1087Vdhbbdd 07/01/2012 ROCEPHIN, PER 250 MG CPT-4: J7443Fmfqtkk 01/23/2012 TRIAMCINOLONE ACET I [place] NOS CPT-4: E3726Gdksvbo 01/23/2012 THER/PROPH/DIAG INJ SC/IM CPT-4: 92353Rzztgya 01/23/2012 REMOVE IMPACTED EAR WAX UNI CPT-4: 76682Kijbefn 01/02/2012 ROUTINE VENIPUNCTURE CPT-4: 83798Zuxpuwl 12/20/2011 Vital Signs Date Vital 05/13/2017 Blood Pressure 1: 128/80 Code: 8480-6 BMI: 32.8 Code: 97126-7 Heart Rate 1: 76 bpm Height: 5' SpO2: 95% Weight: 171 lbs 03/21/2017 Blood Pressure 1: 152/88 Code: 8480-6 Heart Rate 1: 70 bpm Height: SpO2: 98% Weight: 03/19/2017 Blood Pressure 1: 132/64 Code: 8480-6 BMI: 33.0 Code: 09522-8 Heart Rate 1: 64 bpm Height: 5' SpO2: 96% Weight: 172 lbs 01/22/2017 Blood Pressure 1: 120/68 Code: 8480-6 BMI: 33.4 Code: 31898-2 Heart Rate 1: 68 bpm Height: 5' SpO2: 96% Weight: 174 lbs 01/14/2017 Blood Pressure 1: 138/80 Code: 8480-6 BMI: 33.4 Code: 48760-3 Heart Rate 1: 69 bpm Height: 5' SpO2: 98% Weight: 174 lbs 09/23/2016 Blood Pressure 1: 138/70 Code: 8480-6 BMI: 33.6 Code: 98175-0 Heart Rate 1: 68 bpm Height: 5' SpO2: 98% Temperature: 36.4 (C ) / 97.5 (F) Weight: 175 lbs 09/16/2016 Blood Pressure 1: 124/74 Code: 8480-6 BMI: 33.6 Code: 77490-3 Heart Rate 1: 64 bpm Height: 5' SpO2: 97% Weight: 175 lbs 06/25/2016 Weigh t: 174 lbs 06/17/2016 Blood Pressure 1: 128/80 Code: 8480-6 BMI: 34.0 Code: 27005-3 Heart Rate 1: 76 bpm Height: 5' SpO2: 95% Weight: 177 lbs 04/03/2016 Blood Pressure 1: 138/72 Code: 8480-6 BMI: 34.2 Code: 97687-4 Heart Rate 1: 63 bpm Height: 5' SpO2: 96% Weight: 178 lbs 03/13/2016 Blood Pressure 1: 128/72 Code: 8480-6 BMI: 35.3 Code: 07428-2 Heart Rate 1: 71 bpm Height: 5' SpO2: 97% Weight: 184 lbs 01/30/2016 Blood Pressure 1: 134/72 Code: 8480-6 BMI: 35.2 Code: 34110-3 Heart Rate 1: 71 bpm Height: 5' SpO2: 96% Weight: 183 lbs 12/21/2015 Blood Pressure 1: 148/90 Code: 8480-6 BMI: 34.6 Code: 61132-4 Heart Rate 1: 89 bpm Height: 5' SpO2: 96% Weight: 180 lbs 10/09/2015 Blood Pressure 1: 124/76 Code: 8480-6 BMI: 34.6 Code: 75663-3 Heart Rate 1: 88 bpm Height: 5' SpO2: 96% Weight: 180 lbs 06/12/2015 Blood Pressure 1: 148/74 Code: 8480-6 BMI: 33.4 Code: 97506-3 Heart Rate 1: 70 bpm Height: 5' SpO2: 96% Weight: 174 lbs 06/05/2015 Blood Pressure 1: 142/82 Code: 8480-6 BMI: 33.2 Code: 38848-7 Heart Rate 1: 72 bpm Height: 5' Weight: 173 lbs 05/15/2015 Blood Pressure 1: 118/80 Code: 8480-6 BMI: 33.6 Code: 81153-5 Heart Rate 1: 82 bpm Height: 5' Weight: 175 lbs 02/06/2015 Blood Pressure 1: 122/76 Code: 8480-6 BMI: 34.6 Code: 00429-7 Heart Rate 1: 58 bpm Height: 5' Weight: 180 lbs 01/10/2015 Blood Pressure 1: 158/90 Code: 8480-6 Blood Pressure 2: 152/90 Code: 8480-6 BMI: 34.6 Code: 10248-4 Heart Rate 1: 68 bpm Height: 5' Weight: 180 lbs 07/19/2014 Blood Pressure 1: 142/78 Code: 8480-6 BMI: 33.6 Code: 69249-3 Heart Rate 1: 56 bpm Height: 5' Weight: 175 lbs 06/17/2014 Blood Pressure 1: 128/86 Code: 8480-6 Heart Rate 1: 66 bpm SpO2: 98% Weight: 172 lbs 04/19/2014 Blood Pressure 1: 152/82 Code: 8480-6 BMI: 32.5 Code: 38706-9 Heart Rate 1: 60 bpm Height: 5' Weight: 169 lbs 04/11/2014 Blood Pressure 1: 120/80 Code: 8480-6 BMI: 33.4 Code: 18425-6 Heart Rate 1: 64 bpm Height: 5' Weight: 174 lbs 03/10/2014 Blood Pressure 1: 136/64 Code: 8480-6 BMI: 32.7 Code: 59297-6 Heart Rate 1: 76 bpm Height: 5' Weight: 170 lbs 02/02/2014 Blood Pressure 1: 160/76 Code: 8480-6 BMI: 32.7 Code: 70975-0 Heart Rate 1: 64 bpm Height: 5' Weight: 170 lbs 10/25/2013 Blood Pressure 1: 164/82 Code: 8480-6 BMI: 31.9 Code: 88110-2 Heart Rate 1: 60 bpm Height: 5' Weight: 166 lbs 08/24/2013 Blood Pressure 1: 138/88 Code: 8480-6 Heart Rate 1: 80 bpm Weight: 07/26/2013 Blood Pressure 1: 154/70 Code: 8480-6 Heart Rate 1: 72 bpm Weight: 162 lbs 06/30/2013 Blood Pressure 1: 182/86 Code: 8480-6 Heart Rate 1: 80 bpm Weight: 06/24/2013 Blood Pressure 1: 148/68 Code: 8480-6 BMI: 31.3 Code: 34063-1 Heart Rate 1: 72 bpm Height: 5' [...] 1: 142/88 Code: 8480-6 BMI: 30.6 Code: 42988-3 Heart Rate 1: 64 bpm Height: 5' [...] 1: 180/96 Code: 8480-6 BMI: 30.5 Code: 56798-0 Heart Rate 1: 76 bpm Height: 5' Respiratory Rate: 16 bpm Weight: 159 lbs 02/19/2012 Blood Pressure 1: 150/70 Code: 8480-6 Blood Pressure 2: 160/78 Code: 8480-6 Heart Rate 1: 76 bpm Respiratory Rate: 16 bpm Weight: 158 lbs 01/23/2012 Blood Pressure 1: 140/84 Code: 8480-6 BMI: 30.3 Code: 91237-3 Heart Rate 1: 68 bpm Height: 5' Respiratory Rate: 16 bpm SpO2: 98% Temperature: 37.0 (C ) / 98.6 (F) Weight: 158 lbs 01/02/2012 Blood Pressure 1: 142/92 Code: 8480-6 BMI: 30.7 Code: 31080-1 Heart Rate 1: 72 bpm Height: 5' Respiratory Rate: 16 bpm Weight: 160 lbs 12/20/2011 Blood Pressure 1: 170/84 Code: 8480-6 BMI: 30.0 Code: 18658-8 Heart Rate 1: 70 bpm Height: 5' Respiratory Rate: 16 bpm Weight: 156 lbs Functional Status No Functional Status data History of Present Illness Symptom Name Status Resu lt Effective Date Notes hypertension Onset and Resolution ongoing 05/13/2017 None [...] 06/12/2015 None rash Location-Head/Neck on the right mu-ism 06/12/2015 None rash Location-Head/Neck on the right [...] see scanned document 06/30/2013 [phone] hypertension Quality [facility] 06/24/2013 patient states that her T [...] Encounters Encounter Performer Loca tion Codes Date ([id number]) 26144 EST. P ATIENT, LEVEL IV Diagnosis: Essential (primary) hypertension[ICD10: I10] Diagnosis: Mixed hyperlipidemia[ICD10: E78.2] [facility] CPT- 4: 19519 05/13/2017 ([id number]) 60107 EST. P ATIENT, LEVEL III Diagnosis: Allergic contact dermatitis due to plants, except food[ICD10: L23.7] [facility] CPT-4: 80337 03/21/2017 06236 EST. PATIENT, LEVEL III Diagnosis: Bitten or stung by nonvenomous insect and other nonvenomous arthropods, initial encounter[ICD10: W57.XXXA] Diagnosis: Cellulitis of left lower limb[ICD10: L03.116] [facility] CPT-4: 39294 03/19/2017 ([id number]) 45115 EST. P ATIENT, LEVEL IV Diagnosis: Type 2 diabetes mellitus without complications[ICD10: E11.9] Diagnosis: Essential (primary) hypertension[ICD10: I10] Diagnosis: Other specified epidermal thickening[ICD10: L85.8] Zoya Varela MD, [facility] CPT-4: 64669 01/14/2017 [id number] EST. PATIENT, LEVEL III Diagnosis: Glossodynia[ICD10: K14.6] Kacy Varela MD, [facility] CPT- 4: 12057 09/23/2016 ([id number]) 05674 EST. P ATIENT, LEVEL IV Diagnosis: Encounter for screening mammogram for malignant neoplasm of breast[ICD10: Z12.31] Diagnosis: Encounter for immunization[ICD10: Z23] Zoya Varela MD, [facility] CPT-4: 55344 09/16/2016 ([id number]) 21485 EST. P ATIENT, LEVEL III Diagnosis: Diseases of lips[ICD10: K13.0] Diagnosis: Allergic rhinitis due to pollen[ICD10: J30.1] Kacy Varela MD, [facility] CPT-4: 95457 06/25/2016 ([id number]) 08937 EST. P ATIENT, LEVEL III Diagnosis: Essential (primary) hypertension[ICD10: I10] Kacy Varela MD, [facility] CPT-4: 92527 06/17/2016 52657 EST. PATIENT, LEVEL IV Diagnosis: Other acute sinusitis[ICD10: J01.80] Diagnosis: Acute laryngopharyngitis[ICD10: J06.0] Diagnosis: Other allergic rhinitis[ICD10: J30.89] Laura Varela MD, [facility] CPT-4: 08577 04/03/2016 ([id number]) 80094 EST. P ATIENT, LEVEL IV Diagnosis: Essential (primary) hypertension[ICD10: I10] Diagnosis: Localized edema[ICD10: R60.0] Diagnosis: Polyneuropathy, unspecified[ICD10: G62.9] Zoya Varela MD, [facility] CPT-4: 99996 03/13/2016 ([id number]) 75561 EST. P ATIENT, LEVEL IV Diagnosis: Essential (primary) hypertension[ICD10: I10] Diagnosis: Localized edema[ICD10: R60.0] Diagnosis: Type 2 diabetes mellitus without complications[ICD10: E11.9] Zoya Varela MD, [facility] CPT-4: 90236 01/30/2016 46633 EST. PATIENT, LEVEL IV Diagnosis: Localized edema[ICD10: R60.0] Laura Varela MD, [facility] CPT-4: 55129 12/21/2015 ([id number]) 52943 EST. P ATIENT, LEVEL III Diagnosis: Essential (primary) hypertension[ICD10: I10] Diagnosis: Allergic rhinitis due to pollen[ICD10: J30.1] Diagnosis: Cervicalgia[ICD10: M54.2] Kacy Varela MD, [facility] CPT- 4: 66966 10/09/2015 45602 EST. PATIENT, LEVEL II Diagnosis: Contact dermatitis[ICD9: 692.9] Kacy Varela MD, [facility] CPT- 4: 70896 06/12/2015 ([id number]) 95413 EST. P ATIENT, LEVEL III Diagnosis: ESSENTIAL HYPERTENSION[ICD9: 401.9] Diagnosis: DIABETES TYPE II[ICD9: 250.00] Diagnosis: Anxiety[ICD9: 300.00] Kacy Varela MD, [facility] CPT-4: 61259 06/05/2015 ([id number]) 90374 EST. P ATIENT, LEVEL IV Diagnosis: Anxiety[ICD9: 300.00] Diagnosis: ALLERGIC RHINITIS[ICD9: 477.9] Diagnosis: ESOPHAGEAL REFLUX[ICD9: 530.81] Kacy Varela MD, [facility] CPT- 4: 54192 05/15/2015 ([id number]) 60766 EST. P ATIENT, LEVEL III Diagnosis: ESSENTIAL HYPERTENSION[ICD9: 401.9] Zoya Varela MD, [facility] CPT- 4: 78604 02/06/2015 ([id number]) 10780 EST. P ATIENT, LEVEL IV Diagnosis: ESSENTIAL HYPERTENSION[ICD9: 401.9] Diagnosis: EDEMA[ICD9: 782.3] Diagnosis: DIABETES TYPE II[ICD9: 250.00] Zoya Varela MD, [facility] CPT-4: 09470 01/10/2015 ([id number]) 60196 EST. P ATIENT, LEVEL IV Diagnosis: ESSENTIAL HYPERTENSION[ICD9: 401.9] Diagnosis: DIABETES TYPE II[ICD9: 250.00] Zoya Varela MD, [facility] CPT-4: 05043 07/19/2014 ([id number]) 55101 EST. P ATIENT, LEVEL III Diagnosis: Left ankle pain[ICD9: 719.47] Kacy Varela MD, [facility] CPT- 4: 77199 06/17/2014 ([id number]) 39387 EST. P ATIENT, LEVEL III Diagnosis: ESSENTIAL HYPERTENSION[ICD9: 401.9] Diagnosis: Elevated blood sugar[ICD9: 790.29] Zoya Varela MD, [facility] CPT- 4: 62963 04/19/2014 ([id number]) 47691 EST. P ATIENT, LEVEL IV Diagnosis: ESSENTIAL HYPERTENSION[SNOMED: 35848238] Diagnosis: ESOPHAGEAL REFLUX[ICD9: 530.81] Zoya Varela MD, [facility] CPT-4: 52224 04/11/2014 ([id number]) 22731 EST. P ATIENT, LEVEL IV Diagnosis: ALLERGIC RHINITIS[ICD9: 477.9] Diagnosis: Anxiety[ICD9: 300.00] Diagnosis: Dyspnea[ICD9: 786.09] Diagnosis: ESOPHAGEAL REFLUX[ICD9: 530.81] Kacy Varela MD, [facility] CPT- 4: 17044 03/10/2014 ([id number]) 25846 EST. P ATIENT, LEVEL III Diagnosis: ALLERGIC RHINITIS[ICD9: 477.9] Diagnosis: ESSENTIAL HYPERTENSION[SNOMED: 88136241] Kacy Varela MD, [facility] CPT-4: 41326 02/02/2014 ([id number]) 56172 EST. P ATIENT, LEVEL III Diagnosis: ESSENTIAL HYPERTENSION[SNOMED: 51517905] Diagnosis: Skin irritation[ICD9: 709.9] Zoya Varela MD, [facility] CPT-4: 72098 10/25/2013 ([id number]) 84167 EST. P ATIENT, LEVEL III Diagnosis: HYPERLIPIDEMIA[ICD9: 272.4] Diagnosis: ESSENTIAL HYPERTENSION[SNOMED: 70733968] Diagnosis: EDEMA[ICD9: 782.3] Diagnosis: Encounter for long-term (current) use of other medications[ICD9: V58.69] Zoya Varela MD, [facility] CPT-4: 04221 08/24/2013 ([id number]) 72502 EST. P ATIENT, LEVEL III Diagnosis: ESSENTIAL HYPERTENSION[SNOMED: 32863973] Zoya Varela MD, C CPT-4: 83492 07/26/2013 ([id number]) 02160 EST. P ATIENT, LEVEL III Diagnosis: ESSENTIAL HYPERTENSION[SNOMED: 63564297] Zoya Varela MD, C CPT-4: 50574 06/30/2013 ([id number]) 19710 EST. P ATIENT, LEVEL III Diagnosis: ESSENTIAL HYPERTENSION[SNOMED: 59320238] Zoya Varela MD, C CPT-4: 56958 06/24/2013 ([id number]) 24556 EST. P ATIENT, LEVEL IV Diagnosis: ESSENTIAL HYPERTENSION[SNOMED: 88756340] Diagnosis: Leg pain[ICD9: 729.5] Diagnosis: Leg swelling[ICD9: 729.81] Zoya Varela MD, [facility] CPT-4: 81518 12/01/2012 ([id number]) 76835 EST. P ATIENT, LEVEL III Diagnosis: Shingles[ICD9: 053.9] Zoya Varela MD, [facility] CPT-4: 16766 10/19/2012 ([id number]) 54204 EST. P ATIENT, LEVEL IV Diagnosis: EDEMA[ICD9: 782.3] Diagnosis: ESSENTIAL HYPERTENSION[SNOMED: 39570782] Zoya Varela MD, C CPT-4: 22087 10/07/2012 ([id number]) 16884 EST. P ATIENT, LEVEL IV Diagnosis: ESSENTIAL HYPERTENSION[SNOMED: 37168027] Diagnosis: EDEMA[ICD9: 782.3] Diagnosis: Irritable bowel disease[ICD9: 564.1] Zoya Varela MD, [facility] CPT-4: 08078 2012 ([id number]) 73635 EST. P ATIENT, LEVEL III Diagnosis: ESSENTIAL HYPERTENSION[SNOMED: 07711032] Zoya Varela MD, C CPT-4: 64746 08/18/2012 ([id number]) 64802 EST. P ATIENT, LEVEL III Diagnosis: ESSENTIAL HYPERTENSION[SNOMED: 93176043] Zoya Varela MD, [facility] CPT-4: 79094 08/04/2012 ([id number]) 12638 EST. P ATIENT, LEVEL IV Diagnosis: ESSENTIAL HYPERTENSION[SNOMED: 69933747] Diagnosis: Lumbago[ICD9: 724.2] Diagnosis: HYPERLIPIDEMIA[ICD9: 272.4] Zoya Varela MD, [facility] CPT-4: 61958 07/01/2012 ([id number]) 78349 EST. P ATIENT, LEVEL III Diagnosis: ESSENTIAL HYPERTENSION[SNOMED: 48804312] Zoya Varela MD, [facility] CPT-4: 43798 05/20/2012 ([id number]) 88021 EST. P ATIENT, LEVEL IV Diagnosis: ESSENTIAL HYPERTENSION[SNOMED: 58866578] Diagnosis: Hot flash, menopausal[ICD9: 627.2] Zoya Varela MD, [facility] CPT- 4: 21206 04/20/2012 35860 EST. PATIENT, LEVEL IV Diagnosis: SPASM OF MUSCLE[ICD9: 728.85] Diagnosis: Back pain[ICD9: 724.5] Diagnosis: ESSENTIAL HYPERTENSION[SNOMED: 53804786] Zoya Varela MD, C CPT-4: 99487 03/10/2012 ([id number]) 83271 EST. 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 P ATIENT, LEVEL III Diagnosis: ESSENTIAL HYPERTENSION[SNOMED: 43364306] Zoya Varela MD, LL C CPT-4: 85568 02/19/2012 80935 EST. PATIENT, LEVEL IV Diagnosis: ESSENTIAL HYPERTENSION[SNOMED: 83672787] Diagnosis: Cough[ICD9: 786.2] Kacy Varela MD, [facility] CPT-4: 24547 01/23/2012 ([id number]) 37084 EST. P ATIENT, LEVEL IV Diagnosis: HYPERLIPIDEMIA[ICD9: 272.4] Diagnosis: ESSENTIAL HYPERTENSION[SNOMED: 69448985] Zoya Varela MD, [facility] CPT-4: 07072 01/02/2012 OFFICE VISIT, NEW - LEVEL 4 Diagnosis: ESSENTIAL HYPERTENSION[SNOMED: 48564772] Diagnosis: HYPERLIPIDEMIA[ICD9: 272.4] Diagnosis: IMPACTED CERUMEN[ICD9: 380.4] Diagnosis: Muscle spasm[ICD9: 728.85] Diagnosis: CHRONIC TENSION HEADACHE[ICD9: 339.12] Diagnosis: Neck pain, chronic[ICD9: 723.1] Diagnosis: Change in skin mole[ICD9: 216.9] Zoya Varlea MD, [facility] CPT-4: 51477 12/20/2011 Plan of Care Planned Activity Notes C odes Status Date Visit Plan: Hypertension - well controll ed - continue with current medications, continue with no added salt diet. Pt has been encouraged to exercise daily.The pt has been advised to call the office if there are any acute concerns about change in blood pressure readings at home.Hyperlipidemia - pt has been counseled about appropriate [...] to medications. 05/13/2017 Appointment: Zoya Varela WPtel: [address] [place], [place] [id number] (15 min) Moderate 05/13/2017 Patient Education: Patient Medication Summary Completed 05/13/2017 Patient Education: Obesity Completed 05/13/2017 Patient Education: Hypertension Completed 05/13/2017 Visit Plan: Poison Sarah -kenalog injectio n today in the office-start prednisone tomorrow pt is to use topical treatments as directed. Pt is cleanse clothing in hot water with soap, and call if symptoms do not improve or if they worsen. 03/21/2017 Appointment: Kacy Moses WPtel: [address] (15 min) Moderate 03/21/2017 Patient Education: Patient Medication Summary Completed 03/21/2017 Visit Plan: Tick - tick with head remove d - will start abx - The patient was instructed in appropriate wound care. The patient was instructed to use the antibiotic ointment as per RX. The patient is to call for any change in symptoms, increase in size of the lesion, increase in pain. 03/19/2017 Appointment: Laura Velasco WPtel: [address] [place] [address] (15 min) Moderate 03/19/2017 Patient Education: Patient Medication Summary Completed 03/19/2017 Patient Education: Obesity Completed 03/19/2017 Visit Plan: Medicare Exam - today we dis cussed the patients past history, immunizations, preventative exams/evaluations [...] risk and to maintain independece in the home.Today we discussed the need for the patient to create paperwork for Advanced directives as well as for the patient to provide this office with a copy of her DOPA paperwork for health care surrogate.Cerumen Impaction - The impacted cerumen was removed with the use of the ear currette and water pick. The patient tolerated the procedure without incident and had improvement in hearing. 01/22/2017 Appointment: Laura Velasco WPtel: [facility] - Annual Wellness Visit 01/22/2017 Appointment: Nurse Visit 01/22/2017 Patient Education: Patient Medication Summary Completed 01/22/2017 Visit Plan: Diabetes Mellitus - controll ed - per recent FSBS reports. I have [...] glucose readings are starting to become less controlled.Rash on left Elbow - RX forHypertension - well controlled - continue with current medications, continue with no added salt diet. Pt has been encouraged to exercise daily.The pt has been advised to call the office if there are any acute concerns about change in blood pressure readings at home. 01/14/2017 Appointment: Zoya Varela WPtel: [phone] [phone] (15 min) Moderate 01/14/2017 Patient Education: Patient Medication Summary Completed 01/14/2017 Patient Education: Obesity Completed 01/14/2017 Patient Education: Hypertension Completed 01/14/2017 Visit Plan: Dry mouth-oral pain-discusse d with Dr Varela-recommend patient start biotene mouth rinses to increase moisture-ok to decrease lyrica to see if symptoms improve-follow up in 2-3 weeks, sooner if needed. Patient verbalized understanding of plan. 09/23/2016 Appointment: Kacy Moses WPtel: [phone] [phone] [place] (15 min) Moderate 09/23/2016 Patient Education: Patient Medication Summary Completed 09/23/2016 Patient Education: Obesity Completed 09/23/2016 Visit Plan: Hypertension - well controll ed - continue with current medications, continue with no added salt diet. Pt has been encouraged to exercise daily.The pt has been advised to call the office if there are any acute concerns about change in blood pressure readings at home.pnuemovax 23 todayHyperlipidemia - pt has been counseled about appropriate [...] medications. 09/16/2016 Appointment: Zoya Varela WPtel: [phone] [phone] (15 min) Moderate 09/16/2016 Patient Education: Patient Medication Summary Completed 09/16/2016 Patient Education: Obesity Completed 09/16/2016 Care Plan[facility] [address] Pending 09/16/2016 Visit Plan: Cracked/painful lips-bacteri al culture today in the office-discussed keeping lips well moisturized-get new toothbrush, lip gloss, etc. Call if symptoms do not resolve or if any worse. 06/25/2016 Visit Plan: Cracked/painful lips-bacteri al culture today in the office-discussed keeping lips well moisturized-get new toothbrush, lip gloss, etc. Call if symptoms do not resolve or if any worse. 06/25/2016 Appointment: Kacy Moses WPtel: [phone] [phone] (15 min) Moderate 06/25/2016 Patient Education: Patient Medication Summary Completed 06/25/2016 Visit Plan: Hypertension - well controll ed - continue with current medications, continue with no added salt diet. Pt has been encouraged to exercise daily.The pt has been advised to call the office if there are any acute concerns about change in blood pressure readings at home. 06/17/2016 Appointment: (15 min) Moderate 06/17/2016 Patient Education: Patient Medication Summary Completed 06/17/2016 Patient Education: Obesity Completed 06/17/2016 Appointment: Injection 04/04/2016 Patient Education: Patient Medication Summary Completed 04/04/2016 Visit Plan: Sinusitis - Pt has acute inf ection - pain in face, maxillary region, Pt informed to use decongestant, RX given to patient, sinus rinses also recommended. Call if symptoms do not show improvement.URI - Pt advised to increase fluids, vitamin C. Discussed natural and expected course of this diagnosis and need to alert me if symptoms do not follow expected course, or if any worse. RX sent to patient's pharmacy.Allergies - chronic - recommended pt to use allergy medication as prescribed. Pt has been counseled as to the appropriate use of the medication. Pt to call if allergy symptoms are not controlled with the medication.If using nasal spray, instructions as follows: Nasal spray- use twice daily, one spray per nostril twice daily, after 30 minutes, rinse out nose with saline spray.. Use opposite hand per nostril to spray in the nasal steroid allergy spray. 04/03/2016 Appointment: Kacy Moses WPtel: [phone] [phone] (30 min) Complex 04/03/2016 Patient Education: Patient Medication Summary Completed 04/03/2016 Patient Education: Obesity Completed 04/03/2016 Visit Plan: Hypertension - well controll ed - continue with current medications, continue with no added salt diet. Pt has been encouraged to exercise daily.The pt has been advised to call the office if there are any acute concerns about change in blood pressure readings at home.Edema - pt has been advised to elevate legs to prevent dependent edema, compression has been recommended to help to naturally decrease peripheral edema. Diuretic use has been discussed and pt has been instructed in appropriate use of such medication as necessary to further attempt to reduce peripheral edema.Peripheral Neuropathy - started pt on gabapentin - pt to call if symptoms are not improving. 03/13/2016 Patient Education: Patient Medication Summary Completed 03/13/2016 Patient Education: Obesity Completed 03/13/2016 Patient Education: Hypertension Completed 03/13/2016 Appointment: Zoya Varela WPtel: [facility]8 [phone] (15 min) Moderate 02/28/2016 Appointment: Zoya Varela WPtel: [facility]9 [phone] (15 min) Moderate 02/01/2016 Visit Plan: Hypertension - uncontrolled - the patient's medications [...] the office next week for practitioner to review.The pt is to call for acute concerns.Due to edema, will have to decrease amlodipine with a high likelihood of discontinuation of the Amlodipine - I have recommended the following blood pressure medication changes.Instructions given to Natali as follows:increase doxazosin to 1.5 of the 4mg pills twice dailydecrease amlodipine to 1/2 pill daily - check blood pressure at least twice daily and bring by clinic - if the pressure stays below 130 we should be able to stop the amlodipine.i believe that the swelling in your legs is partially due to the amlodipine causing dilation of vessels and edema.Edema - take lasix twice daily x 2 days, elevate legs and use compression on lower legs and hopefully with the decrease in the amlodipine we will see an improvement in her symptoms of swelling.DM - diet controlled - Natali has had elevated hgba1c levels in the past - we have discussed her need to cut back on carbohydrates, sugary foods, and increase her activity to prevent future need for medication as she has a strong family history of DM.I have told her that I agree with Dr. Madisno - that she needs treatment of her inflammatory arthritis - and to carry through with his plans for treatment. 01/30/2016 Appointment: Zoya Varela WPtel: [address] [place], [place] [phone] (15 min) Moderate 01/30/2016 Patient Education: Patient Medication Summary Completed 01/30/2016 Patient Education: Obesity Completed 01/30/2016 Patient Education: Hypertension Completed 01/30/2016 Care Plan: BMI Above normal followup TAD F-MGMT EDUC & TRAIN 1 PT Ordered 01/30/2016 Appointment: (30 min) Complex 01/09/2016 Visit Plan: Edema - pt has been advised to elevate legs to prevent dependent edema, compression has been recommended to help to naturally decrease peripheral edema. Diuretic use has been discussed and pt has been instructed in appropriate use of such medication as necessary to further attempt to reduce peripheral edema. No added salt, heart healthy diet recommended. 2015 Patient Education: Patient Medication Summary Completed 12/21/2015 Visit Plan: Hypertension - well controll ed - continue with current medications, continue with no added salt diet. Pt has been encouraged to exercise daily.The pt has been advised to call the office if there are any acute concerns about change in blood pressure readings at home.Allergies - chronic - recommended pt to use allergy medication as prescribed. Pt has been counseled as to the appropriate use of the medication. Pt to call if allergy symptoms are not controlled with the medication.If using nasal spray, instructions as follows: Nasal spray- use twice daily, one spray per nostril twice daily, after 30 minutes, rinse out nose with saline spray.. Use opposite hand per nostril to spray in the nasal steroid allergy spray.Chronic neck pain-muscle spasms-refill flexeril for prn use 10/09/2015 Appointment: (30 min) Complex 10/09/2015 Patient Education: Patient Medication Summary Completed 10/09/2015 Patient Education: Hypertension Completed 10/09/2015 Patient Education: .Cervicalgia Neck Pain Completed 10/09/2015 Appointment: Injection 07/28/2015 Patient Education: Patient Medication Summary Completed 07/28/2015 Visit Plan: Contact dermatitis-kenalog i njection today in the office-start prednisone taper tomorrow- Pt is cleanse clothing in hot water with soap, and call if symptoms do not improve or if they worsen.Start acyclovir until shingles are completely ruled out-call if any increase or change in symptoms-call if symptoms do not resolve-call for any visual changes or as discussed. Patient verbalized understanding of plan. 06/12/2015 Appointment: (15 min) Moderate 06/12/2015 Patient Education: Patient Medication Summary Completed 06/12/2015 Visit Plan: Hypertension - well controll ed - continue with current medications, continue with no added salt diet. Pt has been encouraged to exercise daily.The pt has been advised to call the office if there are any acute concerns about change in blood pressure readings at home.Diabetes-diet controlled-check Hgb A1C Chronic Depression and anxiety - the pt has symptoms of chronic anxiety and depression that have been fairly well controlled since the last office visit. The pt has expected periods of exacerbation with abatement of the symptoms with change in situational exposure. No change in current medications. 2014 Appointment: (15 min) Moderate 06/05/2015 Patient Education: Patient Medication Summary Completed 06/05/2015 Patient Education: Hypertension Completed 06/05/2015 Appointment: (30 min) Complex 05/16/2015 Visit Plan: Allergies - chronic - recomm ended pt to use allergy medication as prescribed. Pt has been counseled as to the appropriate use of the medication. Pt to call if allergy symptoms are not controlled with the medication.If using nasal spray, instructions as follows: Nasal spray- use twice daily, one spray per nostril twice daily, after 30 minutes, rinse out nose with saline spray.. Use opposite hand per nostril to spray in the nasal steroid allergy spray.Kenalog injection today in the officeAnxiety-panic attacks-worried that the 0.5mg xanax will make her too drowsy-lower dose provided and instructed on use Esophageal Reflux - the patient has been counseled against excessive intake of caffeine, spicy foods, peppermint, and cinnamon - all of which can exacerbate esophageal reflux.The patient is to take medications as prescribed and call the office if the symptoms are not improving. 05/15/2015 Patient Education: Patient Medication Summary Completed 05/15/2015 Visit Plan: Hypertension - well controll ed - continue with current medications, continue with no added salt diet. Pt has been encouraged to exercise daily.The pt has been advised to call the office if there are any acute concerns about change in blood pressure readings at home. 02/06/2015 Appointment: Zoya Varela WPtel: [address] [place], [place] [id number] Follow up 02/06/2015 Patient Education: Patient Medication Summary Completed 02/06/2015 Patient Education: Hypertension Completed 02/06/2015 Visit Plan: Hypertension - uncontrolled - the patient's medications [...] the office next week for practitioner to review.The pt is to call for acute concerns.Diabetes Mellitus - controlled - per recent FSBS [...] glucose readings are starting to become less controlled.Edema - pt has been advised to elevate legs to prevent dependent edema, compression has been recommended to help to naturally decrease peripheral edema. Diuretic use has been discussed and pt has been instructed in appropriate use of such medication as necessary to further attempt to reduce peripheral edema. 01/10/2015 Appointment: [facility]Ptel[phone] [facility] 01/10/2015 Patient Education: Patient Medication Summary Completed 01/10/2015 Patient Education: Hypertension Completed 01/10/2015 Visit Plan: Hypertension - well controll ed - continue with current medications, continue with no added salt diet. Pt has been encouraged to exercise daily.The pt has been advised to call the office if there are any acute concerns about change in blood pressure readings at home.Diabetes Mellitus - controlled - per recent FSBS [...] controlled. 07/19/2014 Appointment: [facility]Ptel[phone] Follow up 07/19/2014 Patient Education: Patient Medication Summary Completed 07/19/2014 Patient Education: Hypertension Completed 07/19/2014 Care Plan: SCREENINGMAMMOGRAPHYDIGITAL LOINC : 56998-8 Ordered 07/19/2014 Visit Plan: Left ankle enbk-qssmpw-xxtav mend rest ice and anti inflammatories as directed-also plan for xray left ankle 06/17/2014 Appointment: Sick 06/17/2014 Patient Education: Patient Medication Summary Completed 06/17/2014 Visit Plan: Elevated blood sugars-diabet es and diet education provided today in the [...] diet. Pt has been encouraged to exercise daily.The pt has been advised to call the office if there are any acute concerns about change in blood pressure readings at home. 04/19/2014 Appointment: Josué Kacy WPtel: [phone] [phone] Diabetic education 04/19/2014 Patient Education: Patient Medication Summary Completed 04/19/2014 Patient Education: Hypertension Completed 04/19/2014 Visit Plan: Hypertension - well controll ed - continue with current medications, continue with no added salt diet. Pt has been encouraged to exercise daily.The pt has been advised to call the office if there are any acute concerns about change in blood pressure readings at home. Esophageal Reflux - the patient has been counseled against excessive intake of caffiene, spicy foods, peppermint, and cinnamon - all of which can exacerbate esophageal reflux.The patient is to take medications as prescribed [...] medications. 04/11/2014 Appointment: Zoya Varela WPtel: [phone] [facility] Follow up 04/11/2014 Patient Education: Patient Medication Summary Completed 04/11/2014 Patient Education: Hypertension Completed 04/11/2014 Visit Plan: Allergies - chronic - recomm ended pt to use allergy medication as prescribed. Pt has been counseled as the the appropriate use of the medication. Pt to call if allergy symptoms are not controlled with the medication.If using nasal spray, instructions as follows: Nasal spray- use twice daily, one spray per nostril twice daily, after 30 minutes, rinse out nose with saline spray.. Use opposite hand per nostril to spray in the nasal steroid allergy spray.Tozxywo-pdzkpnocgezy-vxnkyil xanax at bedtime Esophageal Reflux - the patient has been counseled against excessive intake of caffiene, spicy foods, peppermint, and cinnamon - all of which can exacerbate esophageal reflux.The patient is to take medications as prescribed and call the office if the symptoms are not improving. 03/10/2014 Appointment: Zoya Varela WPtel: [facility]5 [phone] Other 03/10/2014 Patient Education: Patient Medication Summary Completed 03/10/2014 Visit Plan: Hypertension - uncontrolled - the patient's medications [...] the office next week for practicioner to review.The pt is to call for acute concerns.INCREASE DOXAZOSIN TO 1 TAB TWICE DAILY. Allergies - chronic - recommended pt to use allergy medication as prescribed. Pt has been counseled as the the appropriate use of the medication. Pt to call if allergy symptoms are not controlled with the medication.If using nasal spray, instructions as follows: Nasal spray- use twice daily, one spray per nostril twice daily, after 30 minutes, rinse out nose with saline spray.. Use opposite hand per nostril to spray in the nasal steroid allergy spray. 2013 Appointment: Kacy Moses WPtel: [facility] [place] [address] Other 02/02/2014 Patient Education: Patient Medication Summary Completed 02/02/2014 Patient Education: Hypertension Completed 02/02/2014 Visit Plan: Hypertension - uncontrolled - the medicaitons were not changed today [...] the office next week for practicioner to review.The pt is to call for acute concerns.Rash from latex of the bandage - pt to use benadryl cream to the site. 10/25/2013 Appointment: Zoya Varela WPtel: [phone] Follow up 10/25/2013 Patient Education: Patient Medication Summary Completed 10/25/2013 Patient Education: Hypertension Completed 10/25/2013 Visit Plan: Hypertension - uncontrolled - the patient's medications [...] the office next week for practicioner to review.The pt is to call for acute concerns.THE PATIENT IS TO CHANGE HER BLOOD PRESSURE MEDICATIONS FOLLOWS:TOPROL 1.5 PILLS IN MORNINGTOPROL 2 PILLS AT BEDTIME 08/24/2013 Appointment: [facility]la [facility]el[phone] [id number] Follow up 08/24/2013 Patient Education: Patient Medication Summary Completed 08/24/2013 Patient Education: Hypertension Completed 08/24/2013 Visit Plan: Hypertension - uncontrolled - the patient's medications [...] the office next week for practicioner to review.The pt is to call for acute concerns. 07/26/2013 Appointment: [facility]la [facility]el[phone] [id number] Follow up 07/26/2013 Patient Education: Patient Medication Summary Completed 07/26/2013 Patient Education: Hypertension Completed 07/26/2013 Visit Plan: Hypertension - uncontrolled - the patient's medications [...] the office next week for practicioner to review.The pt is to call for acute concerns.INCREASE METOPROLOL TO 1.5 PILLS TWICE DAILY. (TOTAL OF 150MG TWICE A DAY) BPPV - Benign Paroxysmal Positional Vertigo - discussed diagnosis with the patient, offered the pt the appropriate additional information in hand-out. Pt instructed in home exercises to help alleviate and prevent future recurrent episodes of vertigo. Pt informed that if symptoms worsen, call the office for further instructions/medication interventions.START STEROID TAPER ON FRIDAY.MECLIZINE IS FOR VERTIGO SYMPTOMS - CAN TAKE 1/2 TO 1 PILL EVERY 6 HOURS NEEDED FOR DIZZINESS.CALL IF DIZZINESS DOES NOT IMPROVE. 06/30/2013 Appointment: Zoya Varela WPtel: [address] [place] [address] Other 06/30/2013 Patient Education: Patient Medication Summary Completed 06/30/2013 Patient Education: Hypertension Completed 06/30/2013 Visit Plan: Hypertension - uncontrolled - the patient's medications [...] the office next week for practicioner to review.The pt is to call for acute concerns. 06/24/2013 Appointment: Kacy Moses WPtel: [address] [place], [place] [phone] Follow up 06/24/2013 Patient Education: Patient Medication Summary Completed 06/24/2013 Patient Education: Hypertension Completed 06/24/2013 Appointment: Zoya Varela WPtel: [address] [place], [place] [id number] Other 03/23/2013 Visit Plan: Hypotension - pt is on chron ic antihypertensive medication - the medication has been adjusted down to attempt to alleviate the low blood pressures.Leg pain - Leg swelling - pt to have ultrasound on her right lower leg due to post-operative swelling and pain. 12/01/2012 Appointment: Zoya Varela WPtel: [id number] Follow up 12/01/2012 Patient Education: Patient Medication Summary Completed 12/01/2012 Patient Education: Hypertension Completed 12/01/2012 Appointment: Zoya Varela WPtel: [id number] Follow up 10/20/2012 Visit Plan: Shingles - Herpes Zoster - a cute in onset - pt started on acyclovir and instructed to call if symptoms worsen or if the pt is concerned about the symptoms. Pt has been advised to avoid contact with persons who may be , or infants, or immunocompromised individuals.Pt has been instructed that shingles will continue to break out and eventually scab over a two week period, until all of the vessicles are scabbed, the pt is to be considered contagious. 10/19/2012 Appointment: Zoya Varela WPtel: [address] [place] [address] Other 10/19/2012 Patient Education: Patient Medication Summary Completed 10/19/2012 Visit Plan: Hypertension - well controll ed - continue with current medications, continue with no added salt diet. Pt has been encouraged to exercise daily.The pt has been advised to call the [...] peripheral edema. 10/07/2012 Appointment: Kacy Moses WPtel: [phone] [place] Other 10/07/2012 Patient Education: Hypertension Completed 10/07/2012 Patient Education: Patient Medication Summary Completed 10/07/2012 Visit Plan: Hypertension - well controll ed - continue with current medications, continue with no added salt diet. Pt has been encouraged to exercise daily.The pt has been advised to call the [...] edema. 2012 Appointment: Zoya Varela WPtel: [phone] [id number] Other 2012 Patient Education: Patient Medication Summary Completed 2012 Patient Education: High Blood Pressure: Essential Hypertension Completed 2012 Visit Plan: Hypertension - uncontrolled - the patient's medications [...] the office next week for practicioner to review.The pt is to call for acute concerns.Blood pressures are a little better, but still need more control.. Pt is to change her DOXAZOSIN FOLLOWS- PT IS TO START ON DOXAZOSIN 4 mg in the morning and 1/2 pill of DOXAZOSIN IN THE EVENING. 08/18/2012 Appointment: Zoya Varela WPtel: [phone] [id number] Follow up 08/18/2012 Patient Education: Patient Medication Summary Completed 08/18/2012 Patient Education: High Blood Pressure: Essential Hypertension Completed 08/18/2012 Visit Plan: If the clonidine patch has t he blood pressures at or below 120/80, then the pt is to stop her norvasc and call the clinic, pt is to rtc in 2 weeks.Apply the pennsaid 15 drops to each knee three times daily, rub in the pennsaid to hands after each application on the knees. 08/04/2012 Appointment: Zoya Varela WPtel: [address] [id number] Follow up 08/04/2012 Patient Education: Patient Medication Summary Completed 08/04/2012 Patient Education: clonidine 0.1 mg/24 h r Weekly Transderm Patch Monograph Completed 08/04/2012 Patient Education: High Blood Pressure: Essential Hypertension Completed 08/04/2012 Visit Plan: Hypertension - uncontrolled - the patient's medications [...] the office next week for practicioner to review.The pt is to call for acute concerns.CUT THE AMLODIPINE IN 11/04 AND TAKE ONE HALF OF THE AMLODIPINE AT BEDTIME AND ONEHALF OF THE AMLODIPINE IN THE MORNING.Back pain/ nerve pain- recommended pt to start on gabapentin 100 mg at night x 1 week, then increase to twice daily. 07/01/2012 Appointment: Zoya Varela WPtel: [id number] Other 07/01/2012 Patient Education: Patient Medication Summary Completed 07/01/2012 Patient Education: High Blood Pressure: Essential Hypertension Completed 07/01/2012 Visit Plan: Blood pressure having a lot of inconsistent readings.. I have instructed Natali to take her medications as follows:Toprol xl 2 pills in the morningLotrel - 1 pill at noonToprol xl 1 pill at bedtimeBring by blood pressure and heart rate readings in two weeks 05/20/2012 Appointment: Zoya Varela WPtel: [id number] Follow up 05/20/2012 Patient Education: Patient Medication Summary Completed 05/20/2012 Patient Education: High Blood Pressure: Essential Hypertension Completed 05/20/2012 Appointment: Zoya Varela WPtel: [id number] [place] Other 05/11/2012 Visit Plan: Hypertension - uncontrolled - the patient's medications [...] the office next week for practicioner to review.The pt is to call for acute concerns.stop the exforge, and start back on lotrel. Hot flashes - start on estradiol 0.5mg q day, if continues to be uncontrolled, increase to bid dosing. 04/20/2012 Appointment: Zoya Varela WPtel: [address] [id number] Follow up 04/20/2012 Patient Education: Patient Medication Summary Completed 04/20/2012 Patient Education: High Blood Pressure: Essential Hypertension Completed 04/20/2012 Visit Plan: Low back pain- the patient w as instructed in appropriate posture, need for weight [...] few weeks. 03/10/2012 Appointment: Zoya Varela WPtel: [phone] [id number] Other 03/10/2012 Patient Education: Patient Medication Summary Completed 03/10/2012 Patient Education: High Blood Pressure: Essential Hypertension Completed 03/10/2012 Visit Plan: Hypertension - uncontrolled - the patient's medications [...] the office next week for practicioner to review.The pt is to call for acute concerns.Start on exforge 10/320 mg dailystay off of the lotrellstay off of the brennon and stay off of the clonidineAllergies - chronic - recommended pt to use allergy medication as prescribed. Pt has been counseled as the the appropriate use of the medication. Pt to call if allergy symptoms are not controlled with the medication.USE THE NASAL SPRAY ONE SPRAY PER NOSTRIL TWICE DAILY UNTIL FEELING BETTER, THEN MAY GO TO NE SPRAY DAILY.Cough medication phenergan with codeine. 02/25/2012 Appointment: Zoya Varela WPtel: [address] [place] [address] Other 02/25/2012 Patient Education: Patient Medication Summary Completed 02/25/2012 Patient Education: High Blood Pressure: Essential Hypertension Completed 02/25/2012 Visit Plan: Hypertension - uncontrolled - the patient's medications [...] the office next week for practicioner to review.The pt is to call for acute concerns.STOP THE LOTREL AND START ON THE BRENNON, ONE PILL DAILY.. WRITE DOWN THE BLOOD PESSURE AND HEART RATE AND BRING BY THE READINGS TO THE OFFICE NEXT WEEK.. IF THE BLOOD PRESSURE IS GREATER THAN 180 ON THE TOP NUMBER, call the office. 02/19/2012 Appointment: Zoya Varela WPtel: [facility] [address] Other 02/19/2012 Patient Education: Patient Medication Summary Completed 02/19/2012 Patient Education: High Blood Pressure: Essential Hypertension Completed 02/19/2012 Visit Plan: Hypertension - uncontrolled - The patient has [...] the office next week for practicioner to review.The pt is to call for acute concerns. URI/bronchitis - Pt advised to increase fluids, vitamin C. Discussed natural and expected course of this diagnosis and need to alert me if symtpoms do not follow expected course, or if any worse. RX sent to patient's pharmacy. Rocephin and kenalog injection today in the office 01/23/2012 Appointment: Kacy Moses WPtel: [phone] [place] [phone] Other 01/23/2012 Patient Education: Patient Medication Summary Completed 01/23/2012 Patient Education: High Blood Pressure: Essential Hypertension Completed 01/23/2012 Visit Plan: Hypertension - uncontrolled - the patient's medications [...] the office next week for practicioner to review.The pt is to call for acute concerns.TAKE CLONIDINE TWICE DAILY TO HAVE BETTER BLOOD PRESSURE CONTROL AND BETTER HOT FLASH CONTROL.. TAKE THE CLONIDINE FIRST THING IN THE MORNING AND THE SECOND DOSE OF CLONIDINE AT 6 pm.HYPERLIPIDEMIA- recommended pt to start on fish oil three times daily.Cerumen impaction- removed in clinic today.Hypertension - uncontrolled - the patient's medications have [...] the office next week for practicioner to review.The pt is to call for acute concerns.KEEP ON CURRENT MEDICATIONS AND START ON CLONIDINE 0.1 mg by mouth TWICE DAILY. 01/02/2012 Appointment: Zoya Varela WPtel: [address] [place], [place] [id number] [place] Other 01/02/2012 Patient Education: Patient Medication Summary Completed 01/02/2012 Patient Education: High Blood Pressure: Essential Hypertension Completed 01/02/2012 Visit Plan: Hypertension - uncontrolled - the patient's medications [...] the office next week for practicioner to review.The pt is to call for acute concerns.KEEP ON CURRENT MEDICATIONS AND START ON CLONIDINE [...] and to assure normal liver response to medications.Samples of lipitor 10 mg daily.Skin lesion to be evaluatedby Dr. Sanchez on 01/08/12@11AM.Muscle spasms- flexeril 5 mg take as needed for muscle spasms.Cerumen impaction - unable to remove today, will have to use sweet oil to soften wax and hopefully will be able to remove in 2 wks. 12/20/2011 Appointment: Zoya Varela WPtel: [address] [place], [place] [id number] New Patient 12/20/2011 Patient Education: Patient Medication Summary Completed 12/20/2011 Patient Education: High Blood Pressure: Essential Hypertension Completed 12/20/2011 Instructions Comment BENICAR 20MG DAILY SAMPLES GIVEN. Hypertension - [...] pt is to call for acute concerns. CLARITIN 10MG DAILY PEPCID 20MG TWICE DAILY BENADRYL DIRECTED START PREDNISONE TOMORROW . Poison Sarah -kenalog injection today in the office-start prednisone tomorrow pt is to use topical treatments as directed. Pt is cleanse clothing in hot water with soap, and call if symptoms do not improve or if they worsen. DEXILANT 60MG DAILY- TAKE SAMPLES UNTIL GONE [...] office if the symptoms are not improving. increase doxazosin t o 1.5 of the [...] to call if symptoms are not improving. . Elevated blood sug ars-diabetes and diet [...] be able to remove in 2 wks. THE PATIENT IS TO CH JUSTINE HER [...] discussed. Patient verbalized understanding of plan. . Blood pressure hav ing a lot [...] to be uncontrolled, increase to bid dosing. take the carafate as a liquid - [...] assure normal liver response to medications. . If the clonidine [facility] has the blood pressures at [...] to use benadryl cream to the site. PT TO CUT AMLODIPINE TO 1/2 OF [...] situational exposure. No change in current medications. Thigh high compressi on hose-on in the [...] to further attempt to reduce peripheral edema. START STEROID TAPER ON FRIDAY. MECLIZINE IS [...] THE TOP NUMBER, call the office. . Hypertension - wel l controlled - [...] a prescription for an antibiotic, doxycycline, to [facility]. It is twice daily. Take it until [...] kenalog injection today in the office . Shingles - Herpes Zoster - acute [...] pt is to be considered contagious. . Tick - tick with h ead [...] spray in the nasal steroid allergy spray. Kyzuqny-odeobpixqqsb-dueeorp xanax at bedtime Esophageal Reflux - the [...]
--- OUTSIDE RECORDS SUMMARY | 2020-05-26 02:57 | XMS REPORT | CCD ---
Author Author Natali Varela Organization [facility] Address [address] [place] [address] Phone Care Team Providers Care Direct Chill Caster Name Role Phone PP Unavailable CCM Unavailable Summary Purpose Interface Exchange Insurance Providers Payer name Policy type / Coverage type Covered alliance party ID Effective Begin Date Effective End Date WPS Medicare Part B Medicare Part B [id number] Unknown [employer] Medicare Part B [id number] Unknown Family history Mother Diagnosis Age At Onset Liver Failure Unknown Diabetes mellitus Type 2 Unknown Hyperlipidemia Unknown Hypertension Unknown Cancer Unknown Arthritis Unknown Father Diagnosis Age At Onset Liver Failure Unknown Cancer Unknown Social History Social History Element Codes Description Effective Dates Marital status Unknown M arried 12/12/2011 Number of children Unknown 3 12/12/[address]: 5251770 Former smoker quit in 199212/12/2011 Allergies, Adverse [...] Date Stop Date Sta tus Fill Instructions cyclobenzaprine 10 m g tablet RxNorm: 449351 TAKE ONE TABLET BY MO UTH EVERY 8 HOURS NEEDED 05/07/2017 05/26/2017 Active tramadol 50 mg tablet RxNorm: 246617 1-2 Tablet(s) PO Q8 as needed 04/07/2017 07/05/2017 Ac tive cyclobenzaprine 10 m g tablet RxNorm: 087025 TAKE ONE TABLET BY MO UTH EVERY 8 HOURS NEEDED 04/07/2017 04/26/2017 Inactive Xanax 0.25 mg tablet RxNorm: 452452 1/2-1 Tablet(s) PO QDAY PRN 04/04/2017 06/02/2017 Active metoprolol tartrate 100 mg tablet RxNorm: 821983 TAKE ONE AND ONE-HALF (1 & 1/2) TABLET BY MOUTH EVERY MORNING AND TAKE TWO TABLETS BY MOUTH EVERY EVENING 03/28/2017 07/25/2017 Ac tive prednisone 10 mg tab lets in a dose pack RxNorm: 388185 1 Tablet(s) PO UD 03/21/2017 03/26/2017 In active 6-5-4-3-2-1 Kenalog 40 mg/mL sylvia pension for injection RxNorm: 9788233 2 Milliliter(s) Inj 03/21/2017 03/21/2017 In active doxycycline hyclate 100 mg capsule RxNorm: 7383282 1 Capsule(s) PO BID 03/19/2017 03/28/2017 In active cyclobenzaprine 10 m g tablet RxNorm: 184047 TAKE ONE TABLET BY MO UTH EVERY 8 HOURS NEEDED 02/25/2017 03/16/2017 Inactive triamcinolone aceton pineda 0.1 % topical ointment RxNorm: 6122137 1 Application TOP TI D 02/21/2017 02/20/2017 Inactive triamcinolone aceton pineda 0.1 % topical ointment RxNorm: 4040611 1 Application TOP TI D 02/21/2017 03/02/2017 Inactive doxazosin 4 mg tablet RxNorm: 675514 TAKE ONE AND ONE-HALF (1 & 1/2) TABLET B Y MOUTH BY MOUTH TWO TIMES A DAY 02/14/2017 01/09/2018 Active cyclobenzaprine 10 m g tablet RxNorm: 065484 TAKE ONE TABLET BY MO UTH EVERY 8 HOURS NEEDED 01/27/2017 02/15/2017 Inactive ammonium lactate 12 % topical cream RxNorm: 004231 1 Application TOP BID 01/14/2017 02/12/2017 In active dispense one bottle of the cream potassium chloride E R 10 mEq tablet,extended release RxNorm: 522836 1 Tablet(s) PO PRN as needed with lasix 11/13/2016 No Stop Date Active prn swelling furosemide 20 mg tablet RxNorm: 192732 1 Tablet(s) PO daily as needed edema 11/13/2016 01/11/2017 In active metoprolol tartrate 100 mg tablet RxNorm: 697249 TAKE ONE AND ONE-HALF (1 & 1/2) TABLET BY MOUTH EVERY MORNING AND TAKE TWO TABLETS BY MOUTH EVERY EVENING 11/01/2016 03/27/2017 In active atorvastatin 20 mg t ablet RxNorm: 518029 TAKE ONE TABLET BY MO UTH DAILY 10/31/2016 04/28/2017 In active cyclobenzaprine 10 m g tablet RxNorm: 986093 TAKE ONE TABLET BY MO UTH EVERY 8 HOURS NEEDED 10/25/2016 12/03/2016 Inactive Lyrica 25 mg capsule RxNorm: 124755 1 Tablet(s) PO BID 09/23/2016 01/13/2017 Inactive Lyrica 50 mg capsule RxNorm: 295985 1 Capsule(s) PO BID 09/16/2016 01/13/2017 Inactive amlodipine 5 mg tablet RxNorm: 876616 Tablet(s) TAKE ONE TABLET BY MOUTH DAILY 08/28/2016 07/23/2017 Ac tive cyclobenzaprine 10 m g tablet RxNorm: 025199 TAKE ONE TABLET BY MO UTH EVERY 8 HOURS NEEDED 08/05/2016 09/13/2016 Inactive Xanax 0.25 mg tablet RxNorm: 968478 1/2-1 Tablet(s) PO QDAY PRN 07/16/2016 04/03/2017 Inactive amlodipine 5 mg tablet RxNorm: 106012 TAKE ONE TABLET BY MOUTH DAILY 06/28/2016 08/26/2016 In active metoprolol tartrate 100 mg tablet RxNorm: 946360 Tablet(s) TAKE ONE AN D ONE-HALF (1 & 1/2) TABLET BY MOUTH EVERY MORNING AND TAKE TWO TABLETS BY MOUTH EVERY EVENING 05/02/2016 05/02/2016 Inactive metoprolol tartrate 100 mg tablet RxNorm: 953770 Tablet(s) PO TAKE ONE AND ONE-HALF (1 & 1/2) TABLET BY MOUTH EVERY MORNING AND TAKE TWO TABLETS BY MOUTH EVERY EVENING 05/02/2016 05/01/2016 Inactive metoprolol tartrate 100 mg tablet RxNorm: 094972 Tablet(s) PO TAKE ONE AND ONE-HALF (1 & 1/2) TABLET BY MOUTH EVERY MORNING AND TAKE TWO TABLETS BY MOUTH EVERY EVENING 05/02/2016 10/28/2016 Inactive tramadol 50 mg tablet RxNorm: 854975 1-2 Tablet(s) PO Q8 as needed 04/25/2016 No Stop Date Active atorvastatin 20 mg t ablet RxNorm: 852296 TAKE ONE TABLET BY MO UT DAILY 04/25/2016 10/21/2016 In active cyclobenzaprine 10 m g tablet RxNorm: 356742 Tablet(s) PO TAKE ONE TABLET BY MOUTH EVERY 8 HOURS NEEDED 04/18/2016 06/16/2016 Inactive Kenalog 40 mg/mL sylvia pension for injection RxNorm: 2430398 1 Milliliter(s) Inj 04/04/2016 04/04/2016 In active Phenergan with Codei ne Syrup RxNorm: PO 04/03/2016 No Stop Date Active Zithromax Z-Kush 250 mg tablet RxNorm: 092134 1 Tablet(s) PO UD 04/03/2016 04/07/2016 Inactive 2 tabs on day 1 then 1 tab daily on days 2-5 amlodipine 5 mg tablet RxNorm: 998213 TAKE ONE TABLET BY MOUTH DAILY 03/27/2016 06/24/2016 In active Flexeril 10 mg tablet RxNorm: 304918 TAKE ONE TABLET BY MOUTH EVERY 8 HOURS A S NEEDED 03/14/2016 04/02/2016 Inactive Vitamin B-12 ER 2,00 0 mcg tablet,extended release RxNorm: 587696 1 Tablet(s) PO daily 03/13/2016 No Stop Date Active Vitamin B-12 ER 2,00 0 mcg tablet,extended release RxNorm: 418280 1 Tablet(s) PO daily 03/13/2016 No Stop Date Active gabapentin 100 mg ca psule RxNorm: 517109 1 Capsule(s) PO BID 03/13/2016 09/15/2016 Inactive Flexeril 10 mg tablet RxNorm: 664490 Tablet(s) TAKE ONE TABLET BY MOUTH EVERY 8 HOURS NEEDED 02/08/2016 02/27/2016 Inactive Xanax 0.25 mg tablet RxNorm: 223198 1/2-1 Tablet(s) PO QDAY PRN 02/08/2016 07/15/2016 Inactive amlodipine 5 mg tablet RxNorm: 741320 1 Tablet(s) PO daily 02/06/2016 03/26/2016 Inactive furosemide 20 mg tablet RxNorm: 626185 1 Tablet(s) PO daily 01/30/2016 06/16/2016 Inactive amlodipine 10 mg tablet RxNorm: 079869 1/2 Tablet(s) PO daily 01/30/2016 02/05/2016 Inactive doxazosin 4 mg tablet RxNorm: 905007 1.5 Tablet(s) PO BID 01/30/2016 01/23/2017 Inactive Flexeril 10 mg tablet RxNorm: 466537 TAKE ONE TABLET BY MOUTH EVERY 8 HOURS A S NEEDED 01/10/2016 01/29/2016 Inactive potassium chloride E R 10 mEq tablet,extended release RxNorm: 233359 1 Tablet(s) PO PRN as needed with lasix 12/25/2015 06/16/2016 Inactive prn swelling amlodipine 10 mg tablet RxNorm: 934992 TAKE ONE TABLET BY MOUTH EVERY MORNING 12/25/2015 12/24/2015 In active amlodipine 10 mg tablet RxNorm: 316957 TAKE ONE TABLET BY MOUTH EVERY MORNING 12/25/2015 01/29/2016 In active furosemide 20 mg tablet RxNorm: 311981 1/2 Tablet(s) PO daily as needed edema 12/21/2015 01/19/2016 In active pt needs to take 10meq potassium on days she takes the lasix metoprolol tartrate 100 mg tablet RxNorm: 082438 TAKE ONE AND ONE-HALF (1 & 1/2) TABLET BY MOUTH EVERY MORNING AND TAKE TWO TABLETS BY MOUTH EVERY EVENING 11/08/2015 12/07/2015 In active Flonase Allergy Reli ef 50 mcg/actuation nasal spray,suspension RxNorm: [place] as needed PLACE 2 SPRAYS IN EACH NOSTRIL DAILY 10/09/2015 02/05/2016 Inactive Flexeril 10 mg tablet RxNorm: 700208 1 Tablet(s) PO TID PRN TAKE ONE TABLET B Y MOUTH EVERY 8 HOURS NEEDED 10/09/2015 12/07/2015 Inactive alprazolam 0.5 mg ta blet RxNorm: 178719 TAKE ONE TABLET BY MO [facility] AT BEDTIME NEEDED FOR ANXIETY 08/29/2015 11/23/2015 Inactive Flonase Allergy Reli ef 50 mcg/actuation nasal spray,suspension RxNorm: PLACE 2 SPRAYS IN EACH NOSTRIL DAILY 07/06/2015 10/08/2015 Inactive Kenalog 40 mg/mL sylvia pension for injection RxNorm: 2169872 Milliliter(s) Inj 06/12/2015 06/12/2015 In active prednisone 10 mg tab lets in a dose pack RxNorm: 501009 1 Tablet(s) PO UD 06/12/2015 06/17/2015 In active 6-5-4-3-2-1 acyclovir 800 mg tablet RxNorm: 714100 1 Tablet(s) PO TID 06/12/2015 06/21/2015 Inactive Xanax 0.25 mg tablet RxNorm: 315606 1/2-1 Tablet(s) PO QDAY PRN 05/15/2015 02/07/2016 Inactive Flonase Allergy Reli ef 50 mcg/actuation nasal spray,suspension RxNorm: 2 [place] NASAL daily 05/15/2015 06/13/2015 Inactive Kenalog 40 mg/mL sylvia pension for injection RxNorm: 8247027 Milliliter(s) Inj 05/15/2015 05/15/2015 In active metoprolol tartrate 100 mg tablet RxNorm: 680559 TAKE ONE AND ONE-HALF (1 & 1/2) TABLET BY MOUTH EVERY MORNING AND TAKE TWO TABLETS BY MOUTH EVERY EVENING 05/07/2015 06/05/2015 In active metoprolol tartrate 100 mg tablet RxNorm: 584369 TAKE ONE AND ONE-HALF (1 & 1/2) TABLET BY MOUTH EVERY MORNING AND TAKE TWO TABLETS BY MOUTH EVERY EVENING 04/05/2015 05/04/2015 In active amlodipine 10 mg tablet RxNorm: 693133 TAKE ONE TABLET BY MOUTH EVERY MORNING 03/10/2015 12/04/2015 In active alprazolam 0.5 mg ta blet RxNorm: 282169 TAKE ONE TABLET BY MO UTH EVERY NIGHT AT BEDTIME NEEDED FOR ANXIETY 02/23/2015 03/24/2015 Inactive (Response to an electronic controlled substance refill request - RxReferenceNumber: [id number]) alprazolam 0.5 mg ta blet RxNorm: 906376 1 Tablet(s) PO QHS as needed anxiety 02/23/2015 08/29/2015 In active (Response to an electronic controlled salas bstance refill request - RxReferenceNumber: [id number]) doxazosin 4 mg tablet RxNorm: 629240 TAKE ONE TABLET BY MOUTH TWICE A DAY 02/13/2015 01/29/2016 In active atorvastatin 20 mg t ablet RxNorm: 110454 TAKE ONE TABLET BY MO UTH EVERY DAY 01/19/2015 07/17/2015 In active atorvastatin 20 mg t ablet RxNorm: 033361 Tablet(s) TAKE ONE TA BLET BY MOUTH EVERY DAY 01/19/2015 01/18/2015 Inactive [SAVINGS FOR NON-COVERED DRUGS -- BIN:00 3585, PCN: ASPROD1, Group: XXXXX, ID# [id number], Questions: . THIS IS NOT INSURANCE.] Maxzide-25mg 37.5 mg -25 mg tablet RxNorm: 53764 1 Tablet(s) PO daily 01/10/2015 10/08/2015 Inactive [SAVINGS FOR NON-COVERED DRUGS -- BIN:00 3585, PCN: ASPROD1, Group: XXXXX, ID# [id number], Questions: . THIS IS NOT INSURANCE.] metoprolol tartrate 100 mg tablet RxNorm: 335428 TAKE ONE AND ONE-HALF (1 & 1/2) TABLET BY MOUTH EVERY MORNING AND TAKE TWO TABLETS BY MOUTH EVERY EVENING 12/05/2014 01/03/2015 In active Flexeril 10 mg tablet RxNorm: 987072 TAKE ONE TABLET BY MOUTH EVERY 8 HOURS A S NEEDED 10/31/2014 06/27/2015 Inactive alprazolam 0.5 mg ta blet RxNorm: 868482 1 Tablet(s) PO QHS TA KE ONE TABLET BY MOUTH EVERY NIGHT AT BEDTIME AND NEEDED FOR PANIC ATTACKS 10/21/2014 10/23/2014 Inactive (Appended: Controlled substance eRx refi ll - RxReferenceNumber: [id number]) alprazolam 0.5 mg ta blet RxNorm: 893296 TAKE ONE TABLET BY MO UTH EVERY NIGHT AT BEDTIME NEEDED FOR ANXIETY 10/20/2014 11/18/2014 Inactive (Response to an electronic controlled substance refill request - RxReferenceNumber: [id number]) amlodipine 10 mg tablet RxNorm: 266861 1 Tablet(s) PO QAM 09/09/2014 03/07/2015 Inactive now taking full tab [SAVINGS FOR UNINSURED PATIENTS -- BIN:286158, PCN: ASPROD1, Group: [id number], ID# [id number], Process claim through [employer], for questions: . THIS IS NOT INSURANCE.] metoprolol tartrate 100 mg tablet RxNorm: 467066 TAKE ONE AND ONE-HALF (1 & 1/2) TABLET BY MOUTH EVERY MORNING AND TAKE TWO TABLETS BY MOUTH EVERY EVENING 09/03/2014 10/02/2014 In active alprazolam 0.5 mg ta blet RxNorm: 390709 TAKE ONE TABLET BY MO UTH EVERY NIGHT AT BEDTIME AND NEEDED FOR PANIC ATTACKS 08/29/2014 09/12/2014 Inactive (Response to an electronic controlled substance refill request - RxReferenceNumber: [id number]) Zithromax Z-Kush 250 mg tablet RxNorm: 139550 1 Tablet(s) PO UD 07/26/2014 07/25/2014 Inactive 2 tabs on day 1 then 1 tab daily on days 2-5 Zithromax Z-Kush 250 mg tablet RxNorm: 130918 1 Tablet(s) PO UD 07/26/2014 07/30/2014 Inactive 2 tabs on day 1 then 1 tab daily on days 2-5 alprazolam 0.5 mg ta blet RxNorm: 163902 Tablet(s) PO TAKE ONE TABLET BY MOUTH EVERY NIGHT AT BEDTIME AND NEEDED FOR PANIC ATTACKS 07/08/2014 08/30/2014 Inactive (Appended: Controlled substance eRx refill - RxReferenceNumber: [id number]) atorvastatin 20 mg t ablet RxNorm: 581968 TAKE ONE TABLET BY MO UTH EVERY DAY 04/25/2014 01/18/2015 In active Carafate 1 gram tablet RxNorm: 097066 Tablet(s) PO TAKE ONE TABLET BY MOUTH FO UR TIMES A DAY 04/14/2014 10/08/2015 Inactive Fish Oil 1,000 mg ca psule RxNorm: 1 Capsule(s) PO TID 04/13/2014 10/08/2015 Inactive Flexeril 10 mg tablet RxNorm: 927374 1 Tablet(s) PO Q8 PRN 04/01/2014 04/10/2014 Inactive Carafate 1 gram tablet RxNorm: 443732 1 Tablet(s) PO QID 03/10/2014 04/08/2014 Inactive chlordiazepoxide-cli dinium 5 mg-2.5 mg capsule RxNorm: 898636 1 Capsule(s) PO TID P RN 03/10/2014 04/10/2014 Inactive doxazosin 4 mg tablet RxNorm: 321597 1 Tablet(s) PO BID 02/02/2014 02/12/2015 Inactive Kenalog 40 mg/mL sylvia pension for injection RxNorm: 5336170 Milliliter(s) Inj 02/02/2014 02/02/2014 In active atorvastatin 20 mg t ablet RxNorm: 377091 Tablet(s) PO TAKE ONE TABLET BY MOUTH EVERY DAY 01/10/2014 04/24/2014 Inactive alprazolam 0.5 mg ta blet RxNorm: 882930 Tablet(s) PO TAKE ONE TABLET BY MOUTH EVERY NIGHT AT BEDTIME AND NEEDED FOR PANIC ATTACKS 01/10/2014 07/07/2014 Inactive (Appended: Controlled substance eRx refill - RxReferenceNumber: [id number]) alprazolam 0.5 mg ta blet RxNorm: 142210 1 Tablet(s) PO QHS TA KE ONE TABLET BY MOUTH EVERY NIGHT AT BEDTIME AND NEEDED FOR PANIC ATTACKS 01/10/2014 10/20/2014 Inactive (Appended: Controlled substance eRx refi ll - RxReferenceNumber: [id number]) alprazolam 0.5 mg ta blet RxNorm: 477182 Tablet(s) PO TAKE ONE TABLET BY MOUTH EVERY NIGHT AT BEDTIME AND NEEDED FOR PANIC ATTACKS 01/10/2014 01/09/2014 Inactive (Appended: Controlled substance eRx refill - RxReferenceNumber: [id number]) Carafate 1 gram tablet RxNorm: 470996 1 Tablet(s) PO QID 12/16/2013 01/14/2014 Inactive Nexium 40 mg capsule ,delayed release RxNorm: 210070 Capsule(s) PO TAKE ON E CAPSULE BY MOUTH EVERY DAY 11/25/2013 03/12/2016 Inactive doxazosin 4 mg tablet RxNorm: 115446 1/2 Tablet(s) PO QPM 10/21/2013 10/20/2013 Inactive alprazolam 0.5 mg ta blet RxNorm: 069662 1 Tablet(s) PO as dir ected q hs and prn panic attacks 10/18/2013 01/10/2014 Inactive doxazosin 4 mg tablet RxNorm: 447946 1 q am 1/2 q pm Tablet(s) PO 09/21/2013 02/01/2014 Inactive doxazosin 4 mg tablet RxNorm: 363657 1 q am 1/2 q pm Tablet(s) PO 09/21/2013 09/20/2013 Inactive amlodipine 10 mg tablet RxNorm: 234607 1 Tablet(s) PO QAM 08/30/2013 08/24/2014 Inactive now taking full tab metoprolol tartrate 100 mg tablet RxNorm: 326403 2 Tablet(s) PO QPM 08/24/2013 10/22/2013 Inactive alprazolam 0.5 mg ta blet RxNorm: 735661 1 Tablet(s) PO as dir ected q hs and prn panic attacks 07/29/2013 10/17/2013 Inactive Benicar 20 mg tablet RxNorm: 090381 1 Tablet(s) PO daily 07/26/2013 08/09/2013 Inactive amlodipine 10 mg tablet RxNorm: 747717 1 Tablet(s) PO QAM 07/19/2013 08/29/2013 Inactive cyclobenzaprine 5 mg tablet RxNorm: 797580 1 Tablet(s) PO TID NM N one pill every 8 hours as needed for muscle spasms. 07/19/2013 03/31/2014 Inactive Kenalog 40 mg/mL Sylvia p for Injection RxNorm: 0372702 1 Milliliter(s) Inj 06/30/2013 06/30/2013 In active prednisone 10 mg tab lets in a dose pack RxNorm: 906708 1 Tablet(s) PO as doc tor directed take steroid taper as directed on box 06/30/2013 07/09/2013 Inactive disp ense one PACK meclizine 25 mg tablet RxNorm: 474123 1 Tablet(s) PO Q6 PRN 1/2 - 1 pill every 6 hours as needed for vertigo 06/30/2013 08/10/2013 Inactive metoprolol tartrate 100 mg tablet RxNorm: 757245 1.5 Tablet(s) PO BID 06/30/2013 08/23/2013 In active metoprolol tartrate 100 mg tablet RxNorm: 017696 1 Tablet(s) PO BID 06/24/2013 06/29/2013 Inactive metoprolol tartrate 100 mg tablet RxNorm: 303722 1 Tablet(s) PO daily 06/17/2013 06/23/2013 In active metoprolol tartrate 100 mg tablet RxNorm: 755320 1 Tablet(s) PO daily 06/17/2013 06/16/2013 In active Toprol XL 100 mg tab let,extended release RxNorm: 428127 Tablet(s) PO TAKE ONE AND ONE- HALF TABLET BY MOUTH EVERY MORNING AND ONE TABLET IN THE EVENING 05/05/2013 06/22/2013 In active alprazolam 0.5 mg ta blet RxNorm: 439613 1 Tablet(s) PO as dir ected q hs and prn panic attacks 04/06/2013 07/28/2013 Inactive doxazosin 4 mg tablet RxNorm: 839192 Tablet(s) PO TAKE ONE TABLET BY MOUTH EV KANE DAY 04/01/2013 09/20/2013 Inactive Toprol XL 100 mg tab let,extended release RxNorm: 586621 Tablet(s) PO TAKE ONE AND ONE- HALF TABLET BY MOUTH EVERY MORNING AND ONE TABLET IN THE EVENING 12/25/2012 05/04/2013 In active Lasix 20 mg tablet RxNorm: 415754 1 Tablet(s) PO QDAY PRN Take 1 tab daily x 3 days then as needed 12/02/2012 04/10/2014 Inactive potassium chloride E R 20 mEq tablet,extended release(part/cryst) RxNorm: 710211 1 Tablet(s) PO PRN 12/02/2012 10/04/2013 Inactive prn swelling alprazolam 0.5 mg ta blet RxNorm: 839323 1 Tablet(s) PO as dir ected q hs and prn panic attacks 12/01/2012 04/05/2013 Inactive amlodipine 10 mg tablet RxNorm: 666263 1/2 Tablet(s) PO QAM 12/01/2012 07/18/2013 Inactive fluconazole 150 mg t ablet RxNorm: 133114 1 Tablet(s) PO daily 11/16/2012 11/20/2012 Inactive fluconazole 150 mg t ablet RxNorm: 032420 1 Tablet(s) PO daily 11/16/2012 11/15/2012 Inactive Nexium 40 mg capsule ,delayed release RxNorm: 617571 1 Capsule(s) PO daily 10/23/2012 11/16/2013 In active acyclovir 400 mg tablet RxNorm: 639073 1 Tablet(s) PO TID 10/19/2012 10/28/2012 Inactive chlordiazepoxide-cli dinium 5 mg-2.5 mg capsule RxNorm: 103762 1 Capsule(s) PO TID P RN 2012 12/22/2013 Inactive Voltaren 1 % Topical Gel RxNorm: 201595 4 Gram(s) TOP QID pt is to use 2 grams to each hand and 4 grams to knees. 08/18/2012 04/10/2014 Inactive doxazosin 4 mg tablet RxNorm: 282043 1 Tablet(s) PO QAM 08/18/2012 10/16/2012 Inactive atorvastatin 20 mg t ablet RxNorm: 662032 1 Tablet(s) PO HS 08/12/2012 08/11/2012 Inactive may have #90 x3 infection atorvastatin 20 mg t ablet RxNorm: 360219 1 Tablet(s) PO HS 08/12/2012 09/05/2013 Inactive may have #90 x3 infection doxazosin 4 mg tablet RxNorm: 307787 1 Tablet(s) PO daily 08/11/2012 08/17/2012 Inactive clonidine 0.1 mg/24 hr Weekly Transderm Patch RxNorm: 913574 1 Patch TD QW 08/04/2012 08/10/2012 In active Influenza Virus Vacc ine 0.5 mL RxNorm: IM 08/04/2012 08/04/2012 Inactive cyclobenzaprine 5 mg tablet RxNorm: 570822 1 Tablet(s) PO TID NM N one pill every 8 hours as needed for muscle spasms. 07/13/2012 11/09/2012 Inactive cyclobenzaprine 5 mg tablet RxNorm: 404956 1 Tablet(s) PO TID NM N one pill every 8 hours as needed for muscle spasms. 07/09/2012 07/12/2012 Inactive gabapentin 100 mg ca psule RxNorm: 415302 1 Capsule(s) PO TID 07/01/2012 12/01/2012 Inactive atorvastatin 20 mg t ablet RxNorm: 117930 1/2 Tablet(s) PO daily 07/01/2012 08/11/2012 Inactive may of 90 day supply if cheaper Toprol XL 100 mg tab let,extended release RxNorm: 954567 Tablet(s) PO BID 112 in am and 1 in evening 07/01/2012 06/16/2013 Inactive 1 1/2 q am 1 in polly alprazolam 0.5 mg ta blet RxNorm: 675419 1 Tablet(s) PO as dir ected q hs and prn panic attacks 06/24/2012 11/30/2012 Inactive amlodipine 10 mg tablet RxNorm: 845312 1 Tablet(s) PO QAM 06/19/2012 11/30/2012 Inactive benazepril 20 mg tablet RxNorm: 530263 1 Tablet(s) PO daily 06/19/2012 06/13/2013 Inactive one daily at noon Toprol XL 100 mg tab let,extended release RxNorm: 190873 Tablet(s) PO BID 06/19/2012 06/30/2012 In active 1 1/2 q am 1 in polly Toprol XL 100 mg tab let,extended release RxNorm: 234301 1 1/2 Tablet(s) PO BI D 04/27/2012 06/18/2012 In active 90 or 30 day supply, whatever ins will a llow Lotrel 10 mg-20 mg Cap RxNorm: 678867 1 Capsule(s) PO daily 04/20/2012 08/04/2012 Inactive estradiol 0.5 mg Tab RxNorm: 519946 1 Tablet(s) PO BID 04/20/2012 12/02/2012 Inactive Toprol XL 100 mg 24 hr Tab RxNorm: 073114 1 1/2 Tablet(s) PO BID 04/14/2012 04/26/2012 Inactive Toprol XL 100 mg 24 hr Tab RxNorm: 189935 Tablet(s) PO daily 03/31/2012 04/13/2012 Inactive new directions: one q am 1/2 every evepl ease put on file until she needs filled Lipitor 10 mg tablet RxNorm: 769189 1 Tablet(s) PO daily 03/31/2012 12/02/2012 Inactive march of 90 day supply if cheaper Toprol XL 100 mg 24 hr Tab RxNorm: 372280 1 Tablet(s) PO daily 03/11/2012 03/30/2012 Inactive Boniva 150 mg Tab RxNorm: 174870 1 Tablet(s) PO weekly 02/19/2012 12/02/2012 Inactive Detrol LA 4 mg capsu le,extended release RxNorm: 020362 1 Capsule(s) PO daily 02/19/2012 03/12/2016 In active doxycycline hyclate 100 mg Tab RxNorm: 698383 1 Tablet(s) PO BID 01/23/2012 02/25/2012 Inactive Rocephin 500 mg Solu tion for Injection RxNorm: 853747 1 Milliliter(s) Inj 01/23/2012 01/23/2012 In active Kenalog 40 mg/mL Sylvia p for Injection RxNorm: 2783424 1 Milliliter(s) Inj 01/23/2012 01/23/2012 In active cyclobenzaprine 5 mg tablet RxNorm: 647392 1 Tablet(s) PO TID NM N one pill every 8 hours as needed for muscle spasms. 12/20/2011 04/17/2012 Inactive clonidine 0.1 mg Tab RxNorm: 032511 1 Tablet(s) PO BID 12/20/2011 02/25/2012 Inactive Vitamin D3 5,000 uni t tablet RxNorm: 143638 1 Tablet(s) PO daily No Start Date Active Nexium 24HR 22.3 mg capsule,delayed release RxNorm: 183322 1 Capsule(s) PO daily as needed No Start Date Active Fish Oil 360 mg-1,20 0 mg capsule,delayed release RxNorm: 1 Capsule(s) PO daily No Start Date Active Lotrel 10 mg-20 mg Cap RxNorm: 554582 1 Capsule(s) PO daily No Start Date 02/24/2012 Inactive benazepril 20 mg tablet RxNorm: 418944 1 Tablet(s) PO No Start Date 06/18/2012 Inactive one daily at noon Vimovo 500 mg-20 mg multiphase, immed & delay rel Tab RxNorm: 289692 1 Tablet(s) PO BID No Start Date 12/01/2012 Inactive B12 1000 mcg RxNorm: 2 IM daily No Start Date 03/12/2016 Inactive Fish Oil 1,000 mg ca psule RxNorm: 1 Capsule(s) PO BID No Start Date 04/12/2014 Inactive Benicar 40 mg tablet RxNorm: 913193 1 Tablet(s) PO daily No Start Date 10/24/2013 Inactive Carafate 1 gram tablet RxNorm: 688963 Oral No Start Date 12/15/2013 Inactive Vitamin B-12 1,000 m cg tablet RxNorm: 439931 1 Tablet(s) PO daily No Start Date 03/12/2016 Inactive amlodipine 10 mg tablet RxNorm: 288599 1 Tablet(s) PO daily No Start Date 06/18/2012 Inactive Phenergan VC-Codeine 6.25 mg-5 mg-10 mg/5 mL Syrup RxNorm: 972214 5-10 Milliliter(s) PO Q6 PRN No Start Date 04/10/2014 Inactive Celebrex 200 mg capsule RxNorm: 789541 1 Capsule(s) PO daily No Start Date 10/08/2015 Inactive Percocet 5 mg-325 mg tablet RxNorm: 4711658 1-2 Tablet(s) PO Q6 PRN No Start Date 06/16/2014 Inactive Exforge 10 mg-320 mg Tab RxNorm: 822000 1 Tablet(s) PO daily sample No Start Date 05/20/2012 Inactive Lipitor 10 mg Tab RxNorm: 899212 1 Tablet(s) PO daily No Start Date 03/30/2012 Inactive tramadol 50 mg tablet RxNorm: 222555 1-2 Tablet(s) PO Q8 as needed No Start Date 04/24/2016 Inactive Lasix 20 mg tablet RxNorm: 658224 1 Tablet(s) PO QDAY PRN Take 1 tab daily x 3 days then as needed No Start Date 12/01/2012 Inactive potassium chloride E R 20 mEq tablet,extended release(part/cryst) RxNorm: 3499363 1 Tablet(s) PO QDAY PRN No Start Ochoa e 12/01/2012 Inactive Toprol XL 100 mg 24 hr Tab RxNorm: 973543 1 Tablet(s) PO daily No Start Date 03/10/2012 Inactive MIDRIN 325 mg-65 mg- 100 mg Cap RxNorm: 648727 1 Capsule(s) PO PRN No Start Date 05/20/2012 Inactive Nexium 40 mg capsule ,delayed release RxNorm: 850229 1 Capsule(s) PO daily No Start Date 10/22/2012 Inactive Detrol LA 4 mg 24 hr Cap RxNorm: 488908 Oral No S tart Date 02/18/2012 Inactive Boniva 150 mg Tab RxNorm: 268919 Oral No Start Date 02/18/2012 Inactive Flexeril 10 mg tablet RxNorm: 436567 1 Tablet(s) PO Q8 PRN No Start Date 03/31/2014 Inactive clidinium bromide Oral RxNorm: Oral No Start Date 12/01/2012 Inactive alprazolam 0.5 mg ta blet RxNorm: 023203 1 Tablet(s) PO as dir ected q hs and prn panic attacks No Start Date 06/23/2012 Inactive chlordiazepoxide Oral RxNorm: Oral No Start Date 12/01/2012 Inactive metoprolol tartrate 100 mg tablet RxNorm: 979972 Tablet(s) PO TAKE ONE AND ONE-HALF (1 & 1/2) TABLET BY MOUTH EVERY MORNING AND TAKE TWO TABLETS BY MOUTH EVERY EVENING No Start Date 08/03/2014 Inactive furosemide 20 mg tablet RxNorm: 795567 1 Tablet(s) PO daily No Start Date 01/29/2016 Inactive Calcium Oral RxNorm: Oral No Start Date 03/12 Inactive Nasonex 50 mcg/actua tion [place] RxNorm: 455514 1 [place] NASAL BID No Start Date 04/10/2014 Inactive Medication Administered Medication Codes Instruc tions Start Date Status Kenalog 40 mg/mL suspension for injection RxNorm: 1341716 2Milliliter 03/21/2017 N o longer Active Kenalog 40 mg/mL suspension for injection RxNorm: 2573223 1Milliliter 04/04/2016 N o longer Active Kenalog 40 mg/mL suspension for injection RxNorm: 0429907 Milliliter 06/12/2015 No longer Active Kenalog 40 mg/mL suspension for injection RxNorm: 5664486 Milliliter 05/15/2015 No longer Active Kenalog 40 mg/mL suspension for injection RxNorm: 6175709 Milliliter 02/02/2014 No longer Active Kenalog 40 mg/mL Susp for Injection RxNorm: 8811848 1Milliliter 06/30/2013 N o longer Active Influenza Virus Vaccine 0.5 mL RxNorm: 08/04/2012 No longer Active Rocephin 500 mg Solution for Injection RxNorm: 592789 1Milliliter 01/23/2012 N o longer Active Kenalog 40 mg/mL Susp for Injection RxNorm: 1551738 1Milliliter 01/23/2012 N o longer Active Immunizations [...] except food ICD-10: L23.7 ICD-9: 692.6 03/21/2017 Cellulitis of left lower limb ICD-10 : L03.116 ICD-9: 682.6 03/19/2017 Bitten or stung by nonvenomous insect an d other nonvenomous arthropods, initial encounter ICD-10: W57.XXXA ICD-9: 919.4 03/19/2017 Encounter for general adult medical exam [...] Ord2 RDW 14.8 % 06/05/2015 Comp Metabolic Jbo873 NA 138 mEq/L 06/05/2015 Comp Metabolic Mzp386 K 4.3 mEq/L 06/05/2015 Comp Metabolic Vyu070 CL 100 mEq/L 06/05/2015 Comp Metabolic Vyi783 CO2 29.0 mEq/L 06/05/2015 Comp Metabolic Sze358 AN ION GAP 13 06/05/2015 Comp Metabolic Blq861 GL UCOSE 85 mg/dL 06/05/2015 Comp Metabolic Iuo272 Cr eat 0.7 mg/dL 06/05/2015 Comp Metabolic Aus560 eG FR 94 ml/min/1.73m2 06/05 Comp Metabolic Ytw023 BUN 16 mg/dL 06/05/2015 Comp Metabolic Dld536 B/ C Ratio 24.2 Ratio 06/05/2015 Comp Metabolic Jcf634 CA LCIUM 9.5 mg/dL 06/05/2015 Comp Metabolic Bqt134 AL K PHOS 69 U/L 06/05/2015 Comp Metabolic Gje707 T(SGOT) 22 U/L 06/05/2015 Comp Metabolic Iig618 AL T(SGPT) 26 U/L 06/05/2015 Comp Metabolic Qbo586 BI LI T 0.5 mg/dL 06/05/2015 Comp Metabolic Osu897 AL BUMIN 4.2 g/dL 06/05/2015 Comp Metabolic Gwt926 TP RO 6.1 g/dL 06/05/2015 Comp Metabolic Fqs041 GL OB 1.9 g/dL 06/05/2015 Comp Metabolic Rmk548 A/ G Ratio 2.2 Ratio 06/05/2015 Comp Metabolic Ewz414 Os mo 276 mOsmo 06/05/2015 Tsh Ord6 hTSH II 1.99 uIU/mL 06/05/2015 Lipid Ord30 CHOL 171 mg/dL 06/05/2015 Lipid Ord30 HDL 55.0 mg/dl 06/05/2015 Lipid Ord30 TRIG 178 mg/dL 06/05/2015 Lipid Ord30 LDL 80 mg/dL 06/05/2015 Lipid Ord30 C/HDL 3.1 Ratio 06/05/2015 %Hba1C Izo475 % HbA1c 82152-0 5.7 % 06/05/2015 %Hba1C Unh749 Gluc Ave 117 mg/dL 06/05/2015 A1C HPLC 8871618 A1C HPLC 70904-8 5.6 % 07/15/2014 GFR CALC 9834926 GFR AA >60 ML/MIN 07/15/2014 GFR CALC 0854196 GFR NON -AA >60 ML/MIN 07/15/2014 CHEM 14 9198457 AST 21 U/L 07/15/2014 CHEM 14 6534808 ALT 23 IU/L 07/15/2014 CHEM 14 6104287 BUN 14 MG/DL 07/15/2014 CHEM 14 6555044 ALBUMIN 4.2 GM/DL 07/15/2014 CHEM 14 4853605 CHLORIDE 104 MMOL/L 07/15/2014 CHEM 14 3421567 BILI TOT 0.4 MG/DL 07/15/2014 CHEM 14 8354233 ALK PHOS 88 U/L 07/15/2014 CHEM 14 7621924 SODIUM 140 MMOL/L 07/15/2014 CHEM 14 2833550 CREATINI NE 0.63 MG/DL 07/15/2014 CHEM 14 0601003 CALCIUM 9.4 MG/DL 07/15/2014 CHEM 14 9914593 POTASSIUM 4.0 MMOL/L 07/15/2014 CHEM 14 3923129 PROT TOT 6.4 GM/DL 07/15/2014 CHEM 14 1414046 GLUCOSE 90 MG/DL 07/15/2014 CHEM 14 1929297 BICARB 30 MMOL/L 07/15/2014 CHEM 14 1611060 ANION GAP 6 MEQ/L 07/15/2014 A1C HPLC 2240197 A1C HPLC 89669-4 6.0 % 04/13/2014 TSH 1886166 TSH 1.875 uIU/ML 04/12/2014 CHEM 14 7067025 AST 17 U/L 04/12/2014 CHEM 14 1910595 ALT 20 IU/L 04/12/2014 CHEM 14 6421184 BUN 14 MG/DL 04/12/2014 CHEM 14 7510648 ALBUMIN 4.2 GM/DL 04/12/2014 CHEM 14 3546358 CHLORIDE 104 MMOL/L 04/12/2014 CHEM 14 0896525 BILI TOT 0.3 MG/DL 04/12/2014 CHEM 14 3593031 ALK PHOS 80 U/L 04/12/2014 CHEM 14 0319420 SODIUM 141 MMOL/L 04/12/2014 CHEM 14 9250715 CREATINI NE 0.62 MG/DL 04/12/2014 CHEM 14 2115651 CALCIUM 9.4 MG/DL 04/12/2014 CHEM 14 5922955 POTASSIUM 3.5 MMOL/L 04/12/2014 CHEM 14 8286551 PROT TOT 6.5 GM/DL 04/12/2014 CHEM 14 0236687 GLUCOSE 89 MG/DL 04/12/2014 CHEM 14 4927957 BICARB 29 MMOL/L 04/12/2014 CHEM 14 7087459 ANION GAP 8 MEQ/L 04/12/2014 LIPID GRP HDL TE ST 59 MG/DL 04/12/2014 LIPID GRP TRIG 177 MG/DL 04/12/2014 LIPID GRP TEST L DL 106 MG/DL 04/12/2014 LIPID GRP CHOL 200 MG/DL 04/12/2014 LIPID GRP RCHOL/ HDL 3.39 RATIO 04/12/2014 CBC 0986662 WBC 4.6 10e9/L 04/12/2014 CBC 0264783 RBC 4.52 10e12/L 04/12/2014 CBC 2608108 HGB 13.1 g/dL 04/12/2014 CBC 2024783 HCT DET 39.2 % 04/12/2014 CBC 1560556 MCV 86.7 fL 04/12/2014 CBC 2143643 MCH 29.0 pg 04/12/2014 CBC 4783871 MCHC 33.4 g/dL 04/12/2014 CBC 2030590 PLT 233 10e9/L 04/12/2014 CBC 6406694 MPV 9.8 fL 04/12/2014 CBC 7830699 AN % 59.5 % 04/12/2014 CBC 7127637 LY % 28.6 % 04/12/2014 CBC 1487897 MON % 10.0 % 04/12/2014 CBC 6624870 EOS % 1.5 % 04/12/2014 CBC 2259209 BASO % 0.4 % 04/12/2014 CBC 3437651 RDW 13.7 % 04/12/2014 CBC 5810426 ABS AN 2.74 10e9/L 04/12/2014 CBC 1145739 ABS LYMPH 1.32 10e9/L 04/12/2014 CBC 5388814 ABS MONO 0.46 10e9/L 04/12/2014 CBC 8548928 ABS EOS 0.07 10e9/L 04/12/2014 CBC 4586296 ABS BASO 0.02 10e9/L 04/12/2014 CBC 1260267 RDW-SD 42.6 fL 04/12/2014 GFR CALC 1611573 GFR AA >60 ML/MIN 04/12/2014 GFR CALC 2954891 GFR NON -AA >60 ML/MIN 04/12/2014 LIPID GRP HDL TE ST 57 MG/DL 08/24/2013 LIPID GRP TRIG 183 MG/DL 08/24/2013 LIPID GRP 7841374 TEST L DL 64 MG/DL 08/24/2013 LIPID GRP CHOL 158 MG/DL 08/24/2013 LIPID GRP RCHOL/ HDL 2.77 RATIO 08/24/2013 GFR CALC 7394564 GFR AA >60 ML/MIN 08/24/2013 GFR CALC 4791259 GFR NON -AA >60 ML/MIN 08/24/2013 CHEM 14 3243890 AST 13 U/L 08/24/2013 CHEM 14 2627804 ALT 15 IU/L 08/24/2013 CHEM 14 8970224 BUN 14 MG/DL 08/24/2013 CHEM 14 3078713 ALBUMIN 4.3 GM/DL 08/24/2013 CHEM 14 1485878 CHLORIDE 106 MMOL/L 08/24/2013 CHEM 14 3989520 BILI TOT 0.3 MG/DL 08/24/2013 CHEM 14 3350328 ALK PHOS 75 U/L 08/24/2013 CHEM 14 9820550 SODIUM 141 MMOL/L 08/24/2013 CHEM 14 2183128 CREATINI NE 0.56 MG/DL 08/24/2013 CHEM 14 4878356 CALCIUM 9.1 MG/DL 08/24/2013 CHEM 14 6789416 POTASSIUM 4.2 MMOL/L 08/24/2013 CHEM 14 9537575 PROT TOT 6.0 GM/DL 08/24/2013 CHEM 14 3406379 GLUCOSE 83 MG/DL 08/24/2013 CHEM 14 0679585 BICARB 28 MMOL/L 08/24/2013 CHEM 14 2465725 ANION GAP 7 MEQ/L 08/24/2013 CBC 7966680 WBC 4.7 10e9/L 08/24/2013 CBC 3004888 RBC 4.33 10e12/L 08/24/2013 CBC 8795091 HGB 12.5 g/dL 08/24/2013 CBC 3061435 HCT DET 38.2 % 08/24/2013 CBC 8552243 MCV 88.2 fL 08/24/2013 CBC 4667969 MCH 28.9 pg 08/24/2013 CBC 0685821 MCHC 32.7 g/dL 08/24/2013 CBC 6272668 PLT 218 10e9/L 08/24/2013 CBC 4949814 MPV 10.4 fL 08/24/2013 CBC 8062120 AN % 61.9 % 08/24/2013 CBC 8461230 LY % 24.8 % 08/24/2013 CBC 0949522 MON % 10.3 % 08/24/2013 CBC 7909603 EOS % 2.1 % 08/24/2013 CBC 4391275 BASO % 0.9 % 08/24/2013 CBC 1868266 RDW 14.6 % 08/24/2013 CBC 8212911 ABS AN 2.91 10e9/L 08/24/2013 CBC 2573620 ABS LYMPH 1.17 10e9/L 08/24/2013 CBC 9252109 ABS MONO 0.48 10e9/L 08/24/2013 CBC 6270497 ABS EOS 0.10 10e9/L 08/24/2013 CBC 2810719 ABS BASO 0.04 10e9/L 08/24/2013 CBC 0435460 RDW-SD 46.7 fL 08/24/2013 TSH 0573830 TSH 1.208 uIU/ML 08/24/2013 Review of Systems [...] No alteration of consciousness 10/09/2015 Psychiatric anxiety 1205/2015 Constitutional No recent illness 06/12/2015 Constitutional No [...] General 1995 Eyes conjunctiva/eyelids Overall: eyelids normal 04/11/2014 None Full Exam - General 1994 Eyes pupils and irises Overall: pupils equal, round, reactive to light and accomodation 04/11/2014 None Full Exam - General 1995 [...] masses 12/01/2012 None Full Exam - General 1995 Respiratory [...] sounds 10/07/2012 None Full Exam - General 1995 Constitutional general appearance Overall: well developed 2012 [...] cerumen 03/10/2012 None Full Exam - General 1995 [...] flexion 01/02/2012 None Full Exam - General 1995 [...] Date TRIAMCINOLONE ACET I [place] NOS CPT-4: R6286Tmdilxq 03/21/2017 PPPS, SUBSEQ VISIT CPT-4: W8129Ahtbvdc 01/22/2017 ADMIN PNEUMOCOCCAL V ACCINE SNOMED CT: 31324867 CPT-4: J3185Tixsvyo 09/16/2016 Pneumococcal Polysac charide Vaccine, 23-Valent, Ad CPT-4: 83254Wllmkib 09/16/2016 THER/PROPH/DIAG INJ SC/IM CPT-4: 69125Tvoaffd 04/04/2016 TRIAMCINOLONE ACET I [place] NOS CPT-4: A6802Kikoaqw 04/04/2016 ADMIN INFLUENZA VIRU S VAC CPT-4: Q2033Thnifpf 07/28/2015 FLU VACC 4 XIMENA 3 YRS PLUS IM Formatting Model/CDA Sections, Assigned to/Jen Cota SNOMED CT: 37944580 CPT-4: 76240Yuhqhhk 07/28/2015 TRIAMCINOLONE ACET I [place] NOS CPT-4: F1512Awmfuxu 06/12/2015 TRIAMCINOLONE ACET I [place] NOS CPT-4: F5076Bmbqvhe 05/15/2015 ADMIN INFLUENZA VIRU S VAC CPT-4: C6872Bkjluzf 07/19/2014 FLU VAC NO PRSV 4 VA L 3 YRS+ Assigned to/Jen Cota CPT-4: 19497Wzhrhhe 07/19/2014 TRIAMCINOLONE ACET I [place] NOS CPT-4: J7323Kvdszrk 02/02/2014 ROUTINE VENIPUNCTURE CPT-4: 98145Huvmdwm 08/24/2013 ADMIN INFLUENZA VIRU S VAC CPT-4: A6053Nyshahn 07/26/2013 FLULAVAL VACC, 3 YRS & >, IM CPT-4: Y5083Zbjmwcq 07/26/2013 TRIAMCINOLONE ACET I [place] NOS CPT-4: R4593Xfgqaxe 06/30/2013 PRESCRIP TRANSMIT A ERX SY CPT-4: U2679Iyzpzhh 06/30/2013 PRESCRIP TRANSMIT A ERX SY CPT-4: S2456Imlpmvq 12/01/2012 PRESCRIP TRANSMIT A ERX SY CPT-4: Y0784Oqhvfae 10/19/2012 PRESCRIP TRANSMIT A ERX SY CPT-4: W1137Quwzido 10/07/2012 PRESCRIP TRANSMIT A ERX SY CPT-4: N6694Rujegmk 2012 PRESCRIP TRANSMIT A ERX SY CPT-4: M8329Osfysvn 08/18/2012 ADMIN INFLUENZA VIRU S VAC CPT-4: K4654Kddudbk 08/04/2012 FLULAVAL VACC, 3 YRS & >, IM CPT-4: K7794Fwmsdze 08/04/2012 PRESCRIP TRANSMIT A ERX SY CPT-4: S1550Ojctrux 08/04/2012 PRESCRIP TRANSMIT A ERX SY CPT-4: F3396Jwefdha 07/01/2012 ROCEPHIN, PER 250 MG CPT-4: H6441Syulfhv 01/23/2012 TRIAMCINOLONE ACET I [place] NOS CPT-4: B4944Tlyohlo 01/23/2012 THER/PROPH/DIAG INJ SC/IM CPT-4: 01143Mzghxma 01/23/2012 REMOVE IMPACTED EAR WAX UNI CPT-4: 45985Skyjati 01/02/2012 ROUTINE VENIPUNCTURE CPT-4: 54356Gpukkwb 12/20/2011 Vital Signs Date Vital 05/13/2017 Blood Pressure 1: 128/80 Code: 8480-6 BMI: 32.8 Code: 35315-0 Heart Rate 1: 76 bpm Height: 5' SpO2: 95% Weight: 171 lbs 03/21/2017 Blood Pressure 1: 152/88 Code: 8480-6 Heart Rate 1: 70 bpm Height: SpO2: 98% Weight: 03/19/2017 Blood Pressure 1: 132/64 Code: 8480-6 BMI: 33.0 Code: 05276-5 Heart Rate 1: 64 bpm Height: 5' SpO2: 96% Weight: 172 lbs 01/22/2017 Blood Pressure 1: 120/68 Code: 8480-6 BMI: 33.4 Code: 37408-8 Heart Rate 1: 68 bpm Height: 5' SpO2: 96% Weight: 174 lbs 01/14/2017 Blood Pressure 1: 138/80 Code: 8480-6 BMI: 33.4 Code: 88449-6 Heart Rate 1: 69 bpm Height: 5' SpO2: 98% Weight: 174 lbs 09/23/2016 Blood Pressure 1: 138/70 Code: 8480-6 BMI: 33.6 Code: 88517-5 Heart Rate 1: 68 bpm Height: 5' SpO2: 98% Temperature: 36.4 (C ) / 97.5 (F) Weight: 175 lbs 09/16/2016 Blood Pressure 1: 124/74 Code: 8480-6 BMI: 33.6 Code: 67319-2 Heart Rate 1: 64 bpm Height: 5' SpO2: 97% Weight: 175 lbs 06/25/2016 Weigh t: 174 lbs 06/17/2016 Blood Pressure 1: 128/80 Code: 8480-6 BMI: 34.0 Code: 96029-3 Heart Rate 1: 76 bpm Height: 5' SpO2: 95% Weight: 177 lbs 04/03/2016 Blood Pressure 1: 138/72 Code: 8480-6 BMI: 34.2 Code: 93878-1 Heart Rate 1: 63 bpm Height: 5' SpO2: 96% Weight: 178 lbs 03/13/2016 Blood Pressure 1: 128/72 Code: 8480-6 BMI: 35.3 Code: 57564-1 Heart Rate 1: 71 bpm Height: 5' SpO2: 97% Weight: 184 lbs 01/30/2016 Blood Pressure 1: 134/72 Code: 8480-6 BMI: 35.2 Code: 58969-5 Heart Rate 1: 71 bpm Height: 5' SpO2: 96% Weight: 183 lbs 12/21/2015 Blood Pressure 1: 148/90 Code: 8480-6 BMI: 34.6 Code: 91560-6 Heart Rate 1: 89 bpm Height: 5' SpO2: 96% Weight: 180 lbs 10/09/2015 Blood Pressure 1: 124/76 Code: 8480-6 BMI: 34.6 Code: 26508-0 Heart Rate 1: 88 bpm Height: 5' SpO2: 96% Weight: 180 lbs 06/12/2015 Blood Pressure 1: 148/74 Code: 8480-6 BMI: 33.4 Code: 26112-7 Heart Rate 1: 70 bpm Height: 5' SpO2: 96% Weight: 174 lbs 06/05/2015 Blood Pressure 1: 142/82 Code: 8480-6 BMI: 33.2 Code: 15874-1 Heart Rate 1: 72 bpm Height: 5' Weight: 173 lbs 05/15/2015 Blood Pressure 1: 118/80 Code: 8480-6 BMI: 33.6 Code: 39311-9 Heart Rate 1: 82 bpm Height: 5' Weight: 175 lbs 02/06/2015 Blood Pressure 1: 122/76 Code: 8480-6 BMI: 34.6 Code: 53871-2 Heart Rate 1: 58 bpm Height: 5' Weight: 180 lbs 01/10/2015 Blood Pressure 1: 158/90 Code: 8480-6 Blood Pressure 2: 152/90 Code: 8480-6 BMI: 34.6 Code: 47377-2 Heart Rate 1: 68 bpm Height: 5' Weight: 180 lbs 07/19/2014 Blood Pressure 1: 142/78 Code: 8480-6 BMI: 33.6 Code: 17761-6 Heart Rate 1: 56 bpm Height: 5' Weight: 175 lbs 06/17/2014 Blood Pressure 1: 128/86 Code: 8480-6 Heart Rate 1: 66 bpm SpO2: 98% Weight: 172 lbs 04/19/2014 Blood Pressure 1: 152/82 Code: 8480-6 BMI: 32.5 Code: 33430-1 Heart Rate 1: 60 bpm Height: 5' Weight: 169 lbs 04/11/2014 Blood Pressure 1: 120/80 Code: 8480-6 BMI: 33.4 Code: 75691-4 Heart Rate 1: 64 bpm Height: 5' Weight: 174 lbs 03/10/2014 Blood Pressure 1: 136/64 Code: 8480-6 BMI: 32.7 Code: 88940-9 Heart Rate 1: 76 bpm Height: 5' Weight: 170 lbs 02/02/2014 Blood Pressure 1: 160/76 Code: 8480-6 BMI: 32.7 Code: 19406-4 Heart Rate 1: 64 bpm Height: 5' Weight: 170 lbs 10/25/2013 Blood Pressure 1: 164/82 Code: 8480-6 BMI: 31.9 Code: 29140-2 Heart Rate 1: 60 bpm Height: 5' Weight: 166 lbs 08/24/2013 Blood Pressure 1: 138/88 Code: 8480-6 Heart Rate 1: 80 bpm Weight: 07/26/2013 Blood Pressure 1: 154/70 Code: 8480-6 Heart Rate 1: 72 bpm Weight: 162 lbs 06/30/2013 Blood Pressure 1: 182/86 Code: 8480-6 Heart Rate 1: 80 bpm Weight: 06/24/2013 Blood Pressure 1: 148/68 Code: 8480-6 BMI: 31.3 Code: 00586-9 Heart Rate 1: 72 bpm Height: 5' [...] 1: 142/88 Code: 8480-6 BMI: 30.6 Code: 08132-5 Heart Rate 1: 64 bpm Height: 5' [...] 1: 180/96 Code: 8480-6 BMI: 30.5 Code: 71995-5 Heart Rate 1: 76 bpm Height: 5' Respiratory Rate: 16 bpm Weight: 159 lbs 02/19/2012 Blood Pressure 1: 150/70 Code: 8480-6 Blood Pressure 2: 160/78 Code: 8480-6 Heart Rate 1: 76 bpm Respiratory Rate: 16 bpm Weight: 158 lbs 01/23/2012 Blood Pressure 1: 140/84 Code: 8480-6 BMI: 30.3 Code: 72922-3 Heart Rate 1: 68 bpm Height: 5' Respiratory Rate: 16 bpm SpO2: 98% Temperature: 37.0 (C ) / 98.6 (F) Weight: 158 lbs 01/02/2012 Blood Pressure 1: 142/92 Code: 8480-6 BMI: 30.7 Code: 31132-2 Heart Rate 1: 72 bpm Height: 5' Respiratory Rate: 16 bpm Weight: 160 lbs 12/20/2011 Blood Pressure 1: 170/84 Code: 8480-6 BMI: 30.0 Code: 59022-2 Heart Rate 1: 70 bpm Height: 5' [...] 06/12/2015 None rash Location-Head/Neck on the right congregation 06/12/2015 None rash Location-Head/Neck on the right [...] Factors position change 06/30/2013 None hypertension [facility] 06/30/2013 None hypertension Onset and Resolution ongoing 06/30/2013 None hypertension Blood Pressure Values pt checking blood pressure - see scanned document 06/30/2013 149-178/82 hypertension [facility] 06/24/2013 patient states that her [...] both a nkles 12/01/2012 None hypertension [facility] 12/01/2012 None hypertension Onset and Resolution [...] Encounters Encounter Performer Loca tion Codes Date ([id number]) 34094 EST. P ATIENT, LEVEL IV Diagnosis: Essential (primary) hypertension[ICD10: I10] Diagnosis: Mixed hyperlipidemia[ICD10: E78.2] [facility] CPT- 4: 73141 05/13/[id number]) 61026 EST. P ATIENT, LEVEL III Diagnosis: Allergic contact dermatitis due to plants, except food[ICD10: L23.7] [facility] CPT-4: 45183 03/21/2017 63141 EST. PATIENT, LEVEL III Diagnosis: Bitten or stung by nonvenomous insect and other nonvenomous arthropods, initial encounter[ICD10: W57.XXXA] Diagnosis: Cellulitis of left lower limb[ICD10: L03.116] [facility] CPT-4: 62706 03/19/2017 ([id number]) 03832 EST. P ATIENT, LEVEL IV Diagnosis: Type 2 diabetes mellitus without complications[ICD10: E11.9] Diagnosis: Essential (primary) hypertension[ICD10: I10] Diagnosis: Other specified epidermal thickening[ICD10: L85.8] [facility] CPT-4: 69802 01/14/2017 92468 EST. PATIENT, LEVEL III Diagnosis: Glossodynia[ICD10: K14.6] Kacy Varela MD, [facility] CPT- 4: 17043 09/23/2016 ([id number]) 58193 EST. P ATIENT, LEVEL IV Diagnosis: Encounter for screening mammogram for malignant neoplasm of breast[ICD10: Z12.31] Diagnosis: Encounter for immunization[ICD10: Z23] Zoya Varela MD, [facility] CPT-4: 34296 09/16/2016 ([id number]) 90115 EST. P ATIENT, LEVEL III Diagnosis: Diseases of lips[ICD10: K13.0] Diagnosis: Allergic rhinitis due to pollen[ICD10: J30.1] Kacy Varela MD, [facility] CPT-4: 76618 06/25/2016 ([id number]) 35821 EST. P ATIENT, LEVEL III Diagnosis: Essential (primary) hypertension[ICD10: I10] Kacy Varela MD, [facility] CPT-4: 59635 06/17/2016 94413 EST. PATIENT, LEVEL IV Diagnosis: Other acute sinusitis[ICD10: J01.80] Diagnosis: Acute laryngopharyngitis[ICD10: J06.0] Diagnosis: Other allergic rhinitis[ICD10: J30.89] Laura Varela MD, [facility] CPT-4: 28367 04/03/2016 ([id number]) 19682 EST. P ATIENT, LEVEL IV Diagnosis: Essential (primary) hypertension[ICD10: I10] Diagnosis: Localized edema[ICD10: R60.0] Diagnosis: Polyneuropathy, unspecified[ICD10: G62.9] Zoya Varela MD, [facility] CPT-4: 68677 03/13/2016 ([id number]) 57818 EST. P ATIENT, LEVEL IV Diagnosis: Essential (primary) hypertension[ICD10: I10] Diagnosis: Localized edema[ICD10: R60.0] Diagnosis: Type 2 diabetes mellitus without complications[ICD10: E11.9] Zoya Varela MD, [facility] CPT-4: 95985 01/30/2016 48762 EST. PATIENT, LEVEL IV Diagnosis: Localized edema[ICD10: R60.0] Laura Varela MD, [facility] CPT-4: 74531 12/21/2015 ([id number]) 77707 EST. P ATIENT, LEVEL III Diagnosis: Essential (primary) hypertension[ICD10: I10] Diagnosis: Allergic rhinitis due to pollen[ICD10: J30.1] Diagnosis: Cervicalgia[ICD10: M54.2] Kacy Varela MD, [facility] CPT- 4: 03827 10/09/2015 34492 EST. PATIENT, LEVEL II Diagnosis: Contact dermatitis[ICD9: 692.9] Kacy Varela MD, [facility] CPT- 4: 78065 06/12/2015 ([id number]) 79488 EST. P ATIENT, LEVEL III Diagnosis: ESSENTIAL HYPERTENSION[ICD9: 401.9] Diagnosis: DIABETES TYPE II[ICD9: 250.00] Diagnosis: Anxiety[ICD9: 300.00] Kacy Varela MD, [facility] CPT-4: 30439 06/05/2015 ([id number]) 43862 EST. P ATIENT, LEVEL IV Diagnosis: Anxiety[ICD9: 300.00] Diagnosis: ALLERGIC RHINITIS[ICD9: 477.9] Diagnosis: ESOPHAGEAL REFLUX[ICD9: 530.81] Kacy Varela MD, [facility] CPT- 4: 98496 05/15/2015 ([id number]) 47118 EST. P ATIENT, LEVEL III Diagnosis: ESSENTIAL HYPERTENSION[ICD9: 401.9] Zoya Varela MD, [facility] CPT- 4: 70338 02/06/2015 ([id number]) 84595 EST. P ATIENT, LEVEL IV Diagnosis: ESSENTIAL HYPERTENSION[ICD9: 401.9] Diagnosis: EDEMA[ICD9: 782.3] Diagnosis: DIABETES TYPE II[ICD9: 250.00] Zoya Varela MD, [facility] CPT-4: 44844 01/10/2015 ([id number]) 67070 EST. P ATIENT, LEVEL IV Diagnosis: ESSENTIAL HYPERTENSION[ICD9: 401.9] Diagnosis: DIABETES TYPE II[ICD9: 250.00] Zoya Varela MD, [facility] CPT-4: 15066 07/19/2014 ([id number]) 65260 EST. P ATIENT, LEVEL III Diagnosis: Left ankle pain[ICD9: 719.47] Kacy Varela MD, [facility] CPT- 4: 93335 06/17/2014 ([id number]) 28095 EST. P ATIENT, LEVEL III Diagnosis: ESSENTIAL HYPERTENSION[ICD9: 401.9] Diagnosis: Elevated blood sugar[ICD9: 790.29] Zoya Varela MD, [facility] CPT- 4: 95500 04/19/2014 ([id number]) 54996 EST. P ATIENT, LEVEL IV Diagnosis: ESSENTIAL HYPERTENSION[SNOMED: 46989491] Diagnosis: ESOPHAGEAL REFLUX[ICD9: 530.81] Zoya Varela MD, [facility] CPT-4: 69362 04/11/2014 ([id number]) 56885 EST. P ATIENT, LEVEL IV Diagnosis: ALLERGIC RHINITIS[ICD9: 477.9] Diagnosis: Anxiety[ICD9: 300.00] Diagnosis: Dyspnea[ICD9: 786.09] Diagnosis: ESOPHAGEAL REFLUX[ICD9: 530.81] Kacy Varela MD, [facility] CPT- 4: 58989 03/10/2014 ([id number]) 77249 EST. P ATIENT, LEVEL III Diagnosis: ALLERGIC RHINITIS[ICD9: 477.9] Diagnosis: ESSENTIAL HYPERTENSION[SNOMED: 19569410] Kacy Varela MD, [facility] CPT-4: 09088 02/02/2014 ([id number]) 10718 EST. P ATIENT, LEVEL III Diagnosis: ESSENTIAL HYPERTENSION[SNOMED: 03538831] Diagnosis: Skin irritation[ICD9: 709.9] Zoya Varela MD, [facility] CPT-4: 51278 10/25/2013 ([id number]) 72228 EST. P ATIENT, LEVEL III Diagnosis: HYPERLIPIDEMIA[ICD9: 272.4] Diagnosis: ESSENTIAL HYPERTENSION[SNOMED: 61869381] Diagnosis: EDEMA[ICD9: 782.3] Diagnosis: Encounter for long-term (current) use of other medications[ICD9: V58.69] Zoya Varela MD, [facility] CPT-4: 58738 08/24/2013 ([id number]) 99400 EST. P ATIENT, LEVEL III Diagnosis: ESSENTIAL HYPERTENSION[SNOMED: 36244025] Zoya Varela MD[facility] CPT-4: 38473 07/26/2013 ([id number]) 76494 EST. P ATIENT, LEVEL III Diagnosis: ESSENTIAL HYPERTENSION[SNOMED: 99299245] Zoya Varela [facility] CPT-4: 91496 06/30/2013 ([id number]) 64829 EST. P ATIENT, LEVEL III Diagnosis: ESSENTIAL HYPERTENSION[SNOMED: 19270472] Zoya Varela MD, C CPT-4: 34706 06/24/2013 ([id number]) 75322 EST. P ATIENT, LEVEL IV Diagnosis: ESSENTIAL HYPERTENSION[SNOMED: 95420676] Diagnosis: Leg pain[ICD9: 729.5] Diagnosis: Leg swelling[ICD9: 729.81] Zoya Varela MD, [facility] CPT-4: 35592 12/01/2012 ([id number]) 95548 EST. P ATIENT, LEVEL III Diagnosis: Shingles[ICD9: 053.9] Zoya Varela MD, [facility] CPT-4: 70634 10/19/2012 ([id number]) 29160 EST. P ATIENT, LEVEL IV Diagnosis: EDEMA[ICD9: 782.3] Diagnosis: ESSENTIAL HYPERTENSION[SNOMED: 73623423] Zoya Varela MD, C CPT-4: 09366 10/07/2012 ([id number]) 24200 EST. P ATIENT, LEVEL IV Diagnosis: ESSENTIAL HYPERTENSION[SNOMED: 83969354] Diagnosis: EDEMA[ICD9: 782.3] Diagnosis: Irritable bowel disease[ICD9: 564.1] Zoya Varela MD, [facility] CPT-4: 16987 2012 ([id number]) 59032 EST. P ATIENT, LEVEL III Diagnosis: ESSENTIAL HYPERTENSION[SNOMED: 47772063] Zoya Varela MD, [facility] CPT-4: 64836 08/18/2012 ([id number]) 45859 EST. P ATIENT, LEVEL III Diagnosis: ESSENTIAL HYPERTENSION[SNOMED: 38125486] Zoya Varela MD, [facility] CPT-4: 02739 08/04/2012 ([id number]) 60902 EST. P ATIENT, LEVEL IV Diagnosis: ESSENTIAL HYPERTENSION[SNOMED: 69493036] Diagnosis: Lumbago[ICD9: 724.2] Diagnosis: HYPERLIPIDEMIA[ICD9: 272.4] Zoya Varela MD, [facility] CPT-4: 97132 07/01/2012 ([id number]) 05516 EST. P ATIENT, LEVEL III Diagnosis: ESSENTIAL HYPERTENSION[SNOMED: 79172286] Zoya Varela MD, [facility] CPT-4: 79825 05/20/2012 ([id number]) 01039 EST. P ATIENT, LEVEL IV Diagnosis: ESSENTIAL HYPERTENSION[SNOMED: 94292286] Diagnosis: Hot flash, menopausal[ICD9: 627.2] Zoya Varela MD, [facility] CPT- 4: 58757 04/20/2012 88179 EST. PATIENT, LEVEL IV Diagnosis: SPASM OF MUSCLE[ICD9: 728.85] Diagnosis: Back pain[ICD9: 724.5] Diagnosis: ESSENTIAL HYPERTENSION[SNOMED: 58066409] Zoya Varela MD, [facility] CPT-4: 81255 03/10/2012 ([id number]) 27338 EST. P ATIENT, LEVEL IV Diagnosis: COUGH[ICD9: 786.2] Diagnosis: Allergic rhinitis[ICD9: 477.9] Diagnosis: Malignant reactive hypertension[ICD9: 401.0] Zoya Varela MD, [facility] CPT-4: 38759 02/25/2012 ([id number]) 76540 EST. P ATIENT, LEVEL III Diagnosis: ESSENTIAL HYPERTENSION[SNOMED: 35418222] Zoya Varela MD, [facility] CPT-4: 88141 02/19/2012 77029 EST. PATIENT, LEVEL IV Diagnosis: ESSENTIAL HYPERTENSION[SNOMED: 35627110] Diagnosis: Cough[ICD9: 786.2] Kacy Varela MD, [facility] CPT-4: 97306 01/23/2012 [id number] 53452 EST. P ATIENT, LEVEL IV Diagnosis: HYPERLIPIDEMIA[ICD9: 272.4] Diagnosis: ESSENTIAL HYPERTENSION[SNOMED: 22490853] Zoya Varela MD, [facility] CPT-4: 96157 01/02/2012 OFFICE VISIT, NEW - LEVEL 4 Diagnosis: ESSENTIAL HYPERTENSION[SNOMED: 77954533] Diagnosis: HYPERLIPIDEMIA[ICD9: 272.4] Diagnosis: IMPACTED CERUMEN[ICD9: 380.4] Diagnosis: Muscle spasm[ICD9: 728.85] Diagnosis: CHRONIC TENSION HEADACHE[ICD9: 339.12] Diagnosis: Neck pain, chronic[ICD9: 723.1] Diagnosis: Change in skin mole[ICD9: 216.9] Zoya Varela MD, [facility] CPT-4: 82557 12/20/2011 Plan of Care Planned Activity Notes [...] assure normal liver response to medications. 05/13/2017 Patient Education: Patient Medication Summary Completed [...] worsen. 03/21/2017 Appointment: [phone] (15 min) Moderate 03/21/2017 Patient Education: Patient [...] in pain. 03/19/2017 Appointment: Laura Velasco WPtel: [facility]5 [phone] (15 min) Moderate 03/19/2017 Patient Education: Patient [...] 01/22/2017 Appointment: Laura Velasco WPtel: [facility]2 [phone] [facility] - Annual Wellness Visit 01/22/2017 [...] home. 01/14/2017 Appointment: Zoya Varela WPtel: [phone] [phone] (15 min) Moderate 01/14/2017 Patient Education: Patient Medication Summary Completed 01/14/2017 Patient Education: Obesity Completed 01/14/2017 Patient Education: Hypertension Completed 01/14/2017 Visit Plan: Dry mouth-oral pain-discusse d with Dr Varela-recommend patient start biotene mouth rinses to increase moisture-ok to decrease lyrica to see if symptoms improve-follow up in 2-3 weeks, sooner if needed. Patient verbalized understanding of plan. 09/23/2016 Appointment: Kacy Moses WPtel: [phone] [phone] (15 min) Moderate 09/23/2016 Patient Education: Patient [...] medications. 09/16/2016 Appointment: Zoya Varela WPtel: [phone] [phone] (15 min) Moderate 09/16/2016 Patient Education: Patient Medication Summary Completed 09/16/2016 Patient Education: Obesity Completed 09/16/2016 Care Plan: SCREENINGMAMMOGRAPHYDIGITAL LOINC : 59317-1 Pending 09/16/2016 Visit Plan: Cracked/painful lips-bacteri al [...] worse. 06/25/2016 Appointment: Kacy Moses WPtel: [phone] [phone] (15 min) Moderate 06/25/2016 Patient Education: Patient [...] 04/03/2016 Appointment: Kacy Moses WPtel: [facility]5 [phone] (30 min) Complex 04/03/2016 Patient Education: Patient [...] Hypertension Completed 03/13/2016 Appointment: Zoya Varela WPtel: [address] [place], [place] [id number] (15 min) Moderate 02/28/2016 Appointment: Zoya Varela WPtel: [facility]5 [facility] (15 min) Moderate 02/01/2016 Visit Plan: Hypertension [...] treatment. 01/30/2016 App[facility]ment: [phone] (15 min) Moderate 01/30/2016 Patient Education: Patient [...] home. 02/06/2015 Appointment: [phone] Follow up 02/06/2015 Patient Education: Patient Medication [...] edema. 01/10/2015 Appointment: [facility]la [facility]Ptel[phone] Sick 01/10/2015 Patient Education: Patient Medication Summary [...] less controlled. 07/19/2014 Appointment: Zoya Varela WPtel: [phone] [phone] Follow up 07/19/2014 Patient Education: Patient Medication Summary Completed 07/19/2014 Patient Education: Hypertension Completed 07/19/2014 Care Plan: SCREENINGMAMMOGRAPHYDIGITAL [facility] : 29856-7 Ordered 07/19/2014 Visit Plan: Left ankle yamr-uyixkv-mixew mend rest ice and anti inflammatories as [...] home. 04/19/2014 App[facility]ment: [phone] Diabetic education 04/19/2014 Patient Education: Patient [...] to medications. 04/11/2014 Appointment: Zoya Varela WPtel: [facility] Follow up 04/11/2014 Patient Education: Patient Medication [...] to spray in the nasal steroid allergy spray.Bcqqgfh-nkmgmgxjuhom-vjmjuqa xanax at bedtime Esophageal Reflux - the patient has been counseled against excessive intake of caffiene, spicy foods, peppermint, and cinnamon - all of which can exacerbate esophageal reflux.The patient is to take medications as prescribed and call the office if the symptoms are not improving. 03/10/2014 Appointment: Zoya Varela WPtel: [phone] [phone] Other 03/10/2014 Patient Education: Patient Medication Summary [...] allergy spray. 2013 Appointment: Kacy Moses WPtel: [phone] [phone] Other 02/02/2014 Patient Education: Patient Medication [...] the site. 10/25/2013 Appointment: [facility]la [facility]Ptel[phone] Follow up 10/25/2013 Patient Education: Patient Medication [...] BEDTIME 08/24/2013 Appointment: Zoya Varela WPtel: [phone] [phone] Follow up 08/24/2013 Patient Education: Patient Medication [...] concerns. 07/26/2013 Appointment: Zoya Varela WPtel: [phone] [phone] Follow up 07/26/2013 Patient Education: Patient Medication [...] NOT IMPROVE. 06/30/2013 Appointment: Zoya Varela WPtel: [facility]2 [phone] Other 06/30/2013 Patient Education: Patient Medication Summary [...] acute concerns. 06/24/2013 Appointment: Kacy Moses WPtel: [facility]8 [phone] Follow up 06/24/2013 Patient Education: Patient Medication Summary Completed 06/24/2013 Patient Education: Hypertension Completed 06/24/2013 Appointment: Zoya Varela WPtel: [phone] [phone] Other 03/23/2013 Visit Plan: Hypotension - pt is on chron ic antihypertensive medication - the medication has been adjusted down to attempt to alleviate the low blood pressures.Leg pain - Leg swelling - pt to have ultrasound on her right lower leg due to post-operative swelling and pain. 12/01/2012 Appointment: Zoya Varela WPtel: [phone] [phone] [place] Follow up 12/01/2012 Patient Education: Patient Medication Summary Completed 12/01/2012 Patient Education: Hypertension Completed 12/01/2012 Appointment: Zoya Varela WPtel: [address] [place], [place] [address] Follow up 10/20/2012 Visit Plan: Shingles - [...] considered contagious. 10/19/2012 Appointment: Zoya Varela WPtel: [address] [place] [address] Other 10/19/2012 Patient Education: Patient Medication Summary Completed 10/19/2012 Visit Plan: Hypertension - well control ed - continue with current medications, continue [...] peripheral edema. 10/07/2012 Appointment: Kacy Moses WPtel: [address] [place], [place] [phone] [place] Other 10/07/2012 Patient Education: Hypertension Completed [...] peripheral edema. 2012 Appointment: Zoya Varela WPtel: [address] [place] [address] Other 2012 Patient Education: Patient Medication Summary [...] EVENING. 08/18/2012 Appointment: Zoya Varela WPtel: [phone] [phone] Follow up 08/18/2012 Patient Education: Patient Medication [...] knees. 08/04/2012 Appointment: Zoya Varela WPtel: [phone] [phone] Follow up 08/04/2012 Patient Education: Patient Medication [...] call for acute concerns.CUT THE AMLODIPINE IN /2 AND TAKE ONE HALF OF THE AMLODIPINE AT BEDTIME AND ONEHALF OF THE AMLODIPINE IN THE MORNING.Back pain/ nerve pain- recommended pt to start on gabapentin 100 mg at night x 1 week, then increase to twice daily. 07/01/2012 Appointment: Zoya Varela WPtel: [facility] Other 07/01/2012 Patient Education: Patient Medication [...] two weeks 05/20/2012 Appointment: Zoya Varela WPtel: [facility]4 [place] [phone] Follow up 05/20/2012 Patient Education: Patient Medication Summary Completed 05/20/2012 Patient Education: High Blood Pressure: Essential Hypertension Completed 05/20/2012 Appointment: Zoya Varela WPtel: [facility]9 [facility] Other 05/11/2012 Visit Plan: Hypertension - uncontrolled [...] bid dosing. 04/20/2012 Appointment: Zoya Varela WPtel: [phone] [phone] Follow up 04/20/2012 Patient Education: Patient Medication [...] few weeks. 03/10/2012 Appointment: Zoya Varela WPtel: [phone] [phone] Other 03/10/2012 Patient Education: Patient Medication Summary [...] codeine. 02/25/2012 Appointment: Zoya Varela WPtel: [phone] [phone] Other 02/25/2012 Patient Education: Patient Medication Summary [...] office. 02/19/2012 Appointment: Zoya Varela WPtel: [phone] Other 02/19/2012 Patient Education: Patient Medication [...] office 01/23/2012 Appointment: Kacy Moses WPtel: [phone] [phone] Other 01/23/2012 Patient Education: Patient Medication Summary [...] TWICE DAILY. 01/02/2012 Appointment: Zoya Varela WPtel: [address] [place] [phone] [facility] 01/02/2012 Patient Education: Patient Medication Summary Completed [...] 2 wks. 12/20/2011 Appointment: Zoya Varela WPtel: [address] [place] [phone] New Patient 12/20/2011 Patient Education: Patient Medication [...] for treatment. . If the clonidine p [facility] has the blood pressures at [...] kenalog injection today in the office . Tick - tick with h ead [...] spray in the nasal steroid allergy spray. Slytvod-ybtbdyducuml-rgznbmw xanax at bedtime Esophageal Reflux - the [...]
[2020-05-26] MEDS ORDERED: KETOROLAC 30 MG/ML VIAL IVP ONE (03:00)
[2020-05-26] MEDS ORDERED: ONDANSETRON 4 MG/2 ML (SDV) Z0FRAN IVP ONE (03:00)
--- OUTSIDE RECORDS SUMMARY | 2020-05-26 03:00 | XMS REPORT | CCD ---
Author Author Natali Varela Organization [facility] Address [address] [place] [address] Phone Care Team Providers Care Manager Test Name Role Phone PP Unavailable CCM Unavailable Summary Purpose Interface Exchange Insurance Providers Payer name Policy type / Coverage type Covered constitution party ID Effective Begin Date Effective End Date WPS Medicare Part B Medicare Part B [id number] Unknown [facility] [employer] Medicare Part B [id number] Unknown Family history Mother Diagnosis Age At Onset Liver Failure Unknown Diabetes mellitus Type 2 Unknown Hyperlipidemia Unknown Hypertension Unknown Cancer Unknown Arthritis Unknown Father Diagnosis Age At Onset Liver Failure Unknown Cancer Unknown Social History Social History Element Codes Description Effective Dates Marital status Unknown M arried 12/12/2011 Number of children Unknown 3 12/12/[address]: 2437809 Former smoker quit in 199212/12/2011 Allergies, Adverse Reactions, Alerts Allergies, Adverse Reactions, Alerts data not found Past Medical History Illness Codes Condition Status Onset Date Resolved Date 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, [...] ICD-9: V70.0 ICD-10: Z00.01 Active 01/22/2017 Unknown Essential (primary) hypertension ICD-9: 401.9 ICD-10: I10 Active 06/16/2016 Unknown Other specified epid ermal thickening ICD-9: [...] Condition Codes Effectiv e Dates Condition Status 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, except food ICD-9: 692.6 ICD-10: L23.7 03/21/2017 Active Bitten or stung by n onvenomous insect and other nonvenomous arthropods, initial encounter ICD-9: 919.4 ICD-10: W57.XXXA 03/19/2017 Active Cellulitis of left l ower limb ICD-9: 682.6 ICD-10: L03.116 03/19/2017 Active Encounter for genera l adult medical examination with abnormal findings ICD-9: V70.0 ICD-10: Z00.01 01/22/2017 Active Essential (primary) hypertension ICD-9: 401.9 ICD-10: I10 06/16/2016 Active Other specified epid ermal thickening ICD-9: [...] Instructions cyclobenzaprine 10 m g tablet RxNorm: 952646 TAKE ONE TABLET BY [facility] EVERY 8 HOURS NEEDED 05/07/2017 05/26/2017 Active tramadol 50 mg tablet RxNorm: 156459 1-2 Tablet(s) PO Q8 as needed 04/07/2017 07/05/2017 Ac tive cyclobenzaprine 10 m g tablet RxNorm: 979300 TAKE ONE TABLET BY [facility] EVERY 8 HOURS NEEDED 04/07/2017 04/26/2017 Inactive Xanax 0.25 mg tablet RxNorm: 763313 1/2-1 Tablet(s) PO QDAY PRN 04/04/2017 06/02/2017 Active metoprolol tartrate 100 mg tablet RxNorm: 388490 TAKE ONE AND ONE-HALF (1 & 1/2) TABLET BY MOUTH EVERY MORNING AND TAKE TWO TABLETS BY MOUTH EVERY EVENING 03/28/2017 07/25/2017 Ac tive prednisone 10 mg tab lets in a dose pack RxNorm: 012404 1 Tablet(s) PO UD 03/21/2017 03/26/2017 In active 6-5-4-3-2-1 Kenalog 40 mg/mL sylvia pension for injection RxNorm: 9919372 2 Milliliter(s) Inj 03/21/2017 03/21/2017 In active doxycycline hyclate 100 mg capsule RxNorm: 1426814 1 Capsule(s) PO BID 03/19/2017 03/28/2017 In active cyclobenzaprine 10 m g tablet RxNorm: 993110 TAKE ONE TABLET BY [facility] EVERY 8 HOURS NEEDED 02/25/2017 03/16/2017 Inactive triamcinolone aceton pineda 0.1 % topical ointment RxNorm: 3781333 1 Application TOP TI D 02/21/2017 02/20/2017 Inactive triamcinolone aceton pineda 0.1 % topical ointment RxNorm: 0659769 1 Application TOP TI D 02/21/2017 03/02/2017 Inactive doxazosin 4 mg tablet RxNorm: 293674 TAKE ONE AND ONE-HALF (1 & 1/2) TABLET B Y MOUTH BY MOUTH TWO TIMES A DAY 02/14/2017 01/09/2018 Active cyclobenzaprine 10 m g tablet RxNorm: 786016 TAKE ONE TABLET BY [facility] EVERY 8 HOURS NEEDED 01/27/2017 02/15/2017 Inactive ammonium lactate 12 % topical cream RxNorm: 364524 1 Application TOP BID 01/14/2017 02/12/2017 In active dispense one bottle of the cream potassium chloride E R 10 mEq tablet,extended release RxNorm: 781242 1 Tablet(s) PO PRN as needed with lasix 11/13/2016 No Stop Date Active prn swelling furosemide 20 mg tablet RxNorm: 695957 1 Tablet(s) PO daily as needed edema 11/13/2016 01/11/2017 In active metoprolol tartrate 100 mg tablet RxNorm: 086398 TAKE ONE AND ONE-HALF (1 & 1/2) TABLET BY MOUTH EVERY MORNING AND TAKE TWO TABLETS BY MOUTH EVERY EVENING 11/01/2016 03/27/2017 In active atorvastatin 20 mg t ablet RxNorm: 240669 TAKE ONE TABLET BY [facility] DAILY 10/31/2016 04/28/2017 In active cyclobenzaprine 10 m g tablet RxNorm: 396137 TAKE ONE TABLET BY [facility] EVERY 8 HOURS NEEDED 10/25/2016 12/03/2016 Inactive Lyrica 25 mg capsule RxNorm: 170724 1 Tablet(s) PO BID 09/23/2016 01/13/2017 Inactive Lyrica 50 mg capsule RxNorm: 072299 1 Capsule(s) PO BID 09/16/2016 01/13/2017 Inactive amlodipine 5 mg tablet RxNorm: 650814 Tablet(s) TAKE ONE TABLET BY MOUTH DAILY 08/28/2016 07/23/2017 Ac tive cyclobenzaprine 10 m g tablet RxNorm: 570164 TAKE ONE TABLET BY [facility] EVERY 8 HOURS NEEDED 08/05/2016 09/13/2016 Inactive Xanax 0.25 mg tablet RxNorm: 288570 1/2-1 Tablet(s) PO QDAY PRN 07/16/2016 04/03/2017 Inactive amlodipine 5 mg tablet RxNorm: 664391 TAKE ONE TABLET BY MOUTH DAILY 06/28/2016 08/26/2016 In active metoprolol tartrate 100 mg tablet RxNorm: 035490 Tablet(s) TAKE ONE AN D ONE-HALF (1 & 1/2) TABLET BY MOUTH EVERY MORNING AND TAKE TWO TABLETS BY MOUTH EVERY EVENING 05/02/2016 05/02/2016 Inactive metoprolol tartrate 100 mg tablet RxNorm: 779990 Tablet(s) PO TAKE ONE AND ONE-HALF (1 & 1/2) TABLET BY MOUTH EVERY MORNING AND TAKE TWO TABLETS BY MOUTH EVERY EVENING 05/02/2016 05/01/2016 Inactive metoprolol tartrate 100 mg tablet RxNorm: 394984 Tablet(s) PO TAKE ONE AND ONE-HALF (1 & 1/2) TABLET BY MOUTH EVERY MORNING AND TAKE TWO TABLETS BY MOUTH EVERY EVENING 05/02/2016 10/28/2016 Inactive tramadol 50 mg tablet RxNorm: 722773 1-2 Tablet(s) PO Q8 as needed 04/25/2016 No Stop Date Active atorvastatin 20 mg t ablet RxNorm: 525266 TAKE ONE TABLET BY [facility] DAILY 04/25/2016 10/21/2016 In active cyclobenzaprine 10 m g tablet RxNorm: 466292 Tablet(s) PO TAKE ONE TABLET BY MOUTH EVERY 8 HOURS NEEDED 04/18/2016 06/16/2016 Inactive Kenalog 40 mg/mL sylvia pension for injection RxNorm: 8796733 1 Milliliter(s) Inj 04/04/2016 04/04/2016 In active Phenergan with Codei ne Syrup RxNorm: PO 04/03/2016 No Stop Date Active Zithromax Z-Kush 250 mg tablet RxNorm: 369826 1 Tablet(s) PO UD 04/03/2016 04/07/2016 Inactive 2 tabs on day 1 then 1 tab daily on days 2-5 amlodipine 5 mg tablet RxNorm: 412011 TAKE ONE TABLET BY MOUTH DAILY 03/27/2016 06/24/2016 In active Flexeril 10 mg tablet RxNorm: 002379 TAKE ONE TABLET BY MOUTH EVERY 8 HOURS A S NEEDED 03/14/2016 04/02/2016 Inactive Vitamin B-12 ER 2,00 0 mcg tablet,extended release RxNorm: 472548 1 Tablet(s) PO daily 03/13/2016 No Stop Date Active Vitamin B-12 ER 2,00 0 mcg tablet,extended release RxNorm: 561874 1 Tablet(s) PO daily 03/13/2016 No Stop Date Active gabapentin 100 mg ca psule RxNorm: 561737 1 Capsule(s) PO BID 03/13/2016 09/15/2016 Inactive Flexeril 10 mg tablet RxNorm: 387308 Tablet(s) TAKE ONE TABLET BY MOUTH EVERY 8 HOURS NEEDED 02/08/2016 02/27/2016 Inactive Xanax 0.25 mg tablet RxNorm: 564067 1/2-1 Tablet(s) PO QDAY PRN 02/08/2016 07/15/2016 Inactive amlodipine 5 mg tablet RxNorm: 335442 1 Tablet(s) PO daily 02/06/2016 03/26/2016 Inactive furosemide 20 mg tablet RxNorm: 800006 1 Tablet(s) PO daily 01/30/2016 06/16/2016 Inactive amlodipine 10 mg tablet RxNorm: 751244 1/2 Tablet(s) PO daily 01/30/2016 02/05/2016 Inactive doxazosin 4 mg tablet RxNorm: 050979 1.5 Tablet(s) PO BID 01/30/2016 01/23/2017 Inactive Flexeril 10 mg tablet RxNorm: 168904 TAKE ONE TABLET BY MOUTH EVERY 8 HOURS A S NEEDED 01/10/2016 01/29/2016 Inactive potassium chloride E R 10 mEq tablet,extended release RxNorm: 021392 1 Tablet(s) PO PRN as needed with lasix 12/25/2015 06/16/2016 Inactive prn swelling amlodipine 10 mg tablet RxNorm: 355167 TAKE ONE TABLET BY MOUTH EVERY MORNING 12/25/2015 12/24/2015 In active amlodipine 10 mg tablet RxNorm: 288746 TAKE ONE TABLET BY MOUTH EVERY MORNING 12/25/2015 01/29/2016 In active furosemide 20 mg tablet RxNorm: 239950 1/2 Tablet(s) PO daily as needed edema 12/21/2015 01/19/2016 In active pt needs to take 10meq potassium on days she takes the lasix metoprolol tartrate 100 mg tablet RxNorm: 530792 TAKE ONE AND ONE-HALF (1 & 1/2) TABLET BY MOUTH EVERY MORNING AND TAKE TWO TABLETS BY MOUTH EVERY EVENING 11/08/2015 12/07/2015 In active Flonase Allergy Reli ef 50 mcg/actuation nasal spray,suspension RxNorm: [place] as needed PLACE 2 SPRAYS IN EACH NOSTRIL DAILY 10/09/2015 02/05/2016 Inactive Flexeril 10 mg tablet RxNorm: 121217 1 Tablet(s) PO TID PRN TAKE ONE TABLET B Y MOUTH EVERY 8 HOURS NEEDED 10/09/2015 12/07/2015 Inactive alprazolam 0.5 mg ta blet RxNorm: 133305 TAKE ONE TABLET BY [facility] AT BEDTIME NEEDED FOR ANXIETY 08/29/2015 11/23/2015 Inactive Flonase Allergy Reli ef 50 mcg/actuation nasal spray,suspension RxNorm: PLACE 2 SPRAYS IN EACH NOSTRIL DAILY 07/06/2015 10/08/2015 Inactive Kenalog 40 mg/mL sylvia pension for injection RxNorm: 3213174 Milliliter(s) Inj 06/12/2015 06/12/2015 In active prednisone 10 mg tab lets in a dose pack RxNorm: 056895 1 Tablet(s) PO UD 06/12/2015 06/17/2015 In active 6-5-4-3-2-1 acyclovir 800 mg tablet RxNorm: 919535 1 Tablet(s) PO TID 06/12/2015 06/21/2015 Inactive Xanax 0.25 mg tablet RxNorm: 409211 1/2-1 Tablet(s) PO QDAY PRN 05/15/2015 02/07/2016 Inactive Flonase Allergy Reli ef 50 mcg/actuation nasal spray,suspension RxNorm: 2 [place] NASAL daily 05/15/2015 06/13/2015 Inactive Kenalog 40 mg/mL sylvia pension for injection RxNorm: 0609123 Milliliter(s) Inj 05/15/2015 05/15/2015 In active metoprolol tartrate 100 mg tablet RxNorm: 354372 TAKE ONE AND ONE-HALF (1 & 1/2) TABLET BY MOUTH EVERY MORNING AND TAKE TWO TABLETS BY MOUTH EVERY EVENING 05/07/2015 06/05/2015 In active metoprolol tartrate 100 mg tablet RxNorm: 404643 TAKE ONE AND ONE-HALF (1 & 1/2) TABLET BY MOUTH EVERY MORNING AND TAKE TWO TABLETS BY MOUTH EVERY EVENING 04/05/2015 05/04/2015 In active amlodipine 10 mg tablet RxNorm: 864625 TAKE ONE TABLET BY MOUTH EVERY MORNING 03/10/2015 12/04/2015 In active alprazolam 0.5 mg ta blet RxNorm: 537590 TAKE ONE TABLET BY [facility] EVERY NIGHT AT BEDTIME NEEDED FOR ANXIETY 02/23/2015 03/24/2015 Inactive (Response to an electronic controlled substance refill request - RxReferenceNumber: [id number]) alprazolam 0.5 mg ta blet RxNorm: 636028 1 Tablet(s) PO QHS as needed anxiety 02/23/2015 08/29/2015 In active (Response to an electronic controlled salas bstance refill request - RxReferenceNumber: [id number]) doxazosin 4 mg tablet RxNorm: 191168 TAKE ONE TABLET BY MOUTH TWICE A DAY 02/13/2015 01/29/2016 In active atorvastatin 20 mg t ablet RxNorm: 492005 TAKE ONE TABLET BY [facility] EVERY DAY 01/19/2015 07/17/2015 In active atorvastatin 20 mg t ablet RxNorm: 574565 Tablet(s) TAKE ONE TA BLET BY MOUTH EVERY DAY 01/19/2015 01/18/2015 Inactive [SAVINGS FOR NON-COVERED DRUGS -- BIN:00 3585, PCN: ASPROD1, Group: XXXXX, ID# [id number], Questions: . THIS IS NOT INSURANCE.] Maxzide-25mg 37.5 mg -25 mg tablet RxNorm: 03484 1 Tablet(s) PO daily 01/10/2015 10/08/2015 Inactive [SAVINGS FOR NON-COVERED DRUGS -- BIN:00 3585, PCN: ASPROD1, Group: XXXXX, ID# [id number], Questions: . THIS IS NOT INSURANCE.] metoprolol tartrate 100 mg tablet RxNorm: 396320 TAKE ONE AND ONE-HALF (1 & 1/2) TABLET BY MOUTH EVERY MORNING AND TAKE TWO TABLETS BY MOUTH EVERY EVENING 12/05/2014 01/03/2015 In active Flexeril 10 mg tablet RxNorm: 736130 TAKE ONE TABLET BY MOUTH EVERY 8 HOURS A S NEEDED 10/31/2014 06/27/2015 Inactive alprazolam 0.5 mg ta blet RxNorm: 868846 1 Tablet(s) PO QHS TA KE ONE TABLET BY MOUTH EVERY NIGHT AT BEDTIME AND NEEDED FOR PANIC ATTACKS 10/21/2014 10/23/2014 Inactive (Appended: Controlled substance eRx refi ll - RxReferenceNumber: [id number]) alprazolam 0.5 mg ta blet RxNorm: 433433 TAKE ONE TABLET BY [facility] EVERY NIGHT AT BEDTIME NEEDED FOR ANXIETY 10/20/2014 11/18/2014 Inactive (Response to an electronic controlled substance refill request - RxReferenceNumber: [id number]) amlodipine 10 mg tablet RxNorm: 860802 1 Tablet(s) PO QAM 09/09/2014 03/07/2015 Inactive now taking full tab [SAVINGS FOR UNINSURED PATIENTS -- BIN:760549, PCN: ASPROD1, Group: [facility] ID# [id number], Process claim through [employer], for questions: . THIS IS NOT INSURANCE.] metoprolol tartrate 100 mg tablet RxNorm: 944167 TAKE ONE AND ONE-HALF (1 & 1/2) TABLET BY MOUTH EVERY MORNING AND TAKE TWO TABLETS BY MOUTH EVERY EVENING 09/03/2014 10/02/2014 In active alprazolam 0.5 mg ta blet RxNorm: 386489 TAKE ONE TABLET BY [facility] EVERY NIGHT AT BEDTIME AND NEEDED FOR PANIC ATTACKS 08/29/2014 09/12/2014 Inactive (Response to an electronic controlled substance refill request - RxReferenceNumber: [id number]) Zithromax Z-Kush 250 mg tablet RxNorm: 875049 1 Tablet(s) PO UD 07/26/2014 07/25/2014 Inactive 2 tabs on day 1 then 1 tab daily on days 2-5 Zithromax Z-Kush 250 mg tablet RxNorm: 768885 1 Tablet(s) PO UD 07/26/2014 07/30/2014 Inactive 2 tabs on day 1 then 1 tab daily on days 2-5 alprazolam 0.5 mg ta blet RxNorm: 082589 Tablet(s) PO TAKE ONE TABLET BY MOUTH EVERY NIGHT AT BEDTIME AND NEEDED FOR PANIC ATTACKS 07/08/2014 08/30/2014 Inactive (Appended: Controlled substance eRx refill - RxReferenceNumber: [id number]) atorvastatin 20 mg t ablet RxNorm: 498772 TAKE ONE TABLET BY [facility] EVERY DAY 04/25/2014 01/18/2015 In active Carafate 1 gram tablet RxNorm: 300491 Tablet(s) PO TAKE ONE TABLET BY MOUTH FO UR TIMES A DAY 04/14/2014 10/08/2015 Inactive Fish Oil 1,000 mg ca psule RxNorm: 1 Capsule(s) PO TID 04/13/2014 10/08/2015 Inactive Flexeril 10 mg tablet RxNorm: 768910 1 Tablet(s) PO Q8 PRN 04/01/2014 04/10/2014 Inactive Carafate 1 gram tablet RxNorm: 236523 1 Tablet(s) PO QID 03/10/2014 04/08/2014 Inactive chlordiazepoxide-cli dinium 5 mg-2.5 mg capsule RxNorm: 498290 1 Capsule(s) PO TID P RN 03/10/2014 04/10/2014 Inactive doxazosin 4 mg tablet RxNorm: 965288 1 Tablet(s) PO BID 02/02/2014 02/12/2015 Inactive Kenalog 40 mg/mL sylvia pension for injection RxNorm: 0243763 Milliliter(s) Inj 02/02/2014 02/02/2014 In active atorvastatin 20 mg t ablet RxNorm: 705592 Tablet(s) PO TAKE ONE TABLET BY MOUTH EVERY DAY 01/10/2014 04/24/2014 Inactive alprazolam 0.5 mg ta blet RxNorm: 681028 Tablet(s) PO TAKE ONE TABLET BY MOUTH EVERY NIGHT AT BEDTIME AND NEEDED FOR PANIC ATTACKS 01/10/2014 07/07/2014 Inactive (Appended: Controlled substance eRx refill - RxReferenceNumber: [id number]) alprazolam 0.5 mg ta blet RxNorm: 090361 1 Tablet(s) PO QHS TA KE ONE TABLET BY MOUTH EVERY NIGHT AT BEDTIME AND NEEDED FOR PANIC ATTACKS 01/10/2014 10/20/2014 Inactive (Appended: Controlled substance eRx refi ll - RxReferenceNumber: [id number]) alprazolam 0.5 mg ta blet RxNorm: 379550 Tablet(s) PO TAKE ONE TABLET BY MOUTH EVERY NIGHT AT BEDTIME AND NEEDED FOR PANIC ATTACKS 01/10/2014 01/09/2014 Inactive (Appended: Controlled substance eRx refill - RxReferenceNumber: [id number]) Carafate 1 gram tablet RxNorm: 802160 1 Tablet(s) PO QID 12/16/2013 01/14/2014 Inactive Nexium 40 mg capsule ,delayed release RxNorm: 624085 Capsule(s) PO TAKE ON E CAPSULE BY MOUTH EVERY DAY 11/25/2013 03/12/2016 Inactive doxazosin 4 mg tablet RxNorm: 970013 1/2 Tablet(s) PO QPM 10/21/2013 10/20/2013 Inactive alprazolam 0.5 mg ta blet RxNorm: 126912 1 Tablet(s) PO as dir ected q hs and prn panic attacks 10/18/2013 01/10/2014 Inactive doxazosin 4 mg tablet RxNorm: 292883 1 q am 1/2 q pm Tablet(s) PO 09/21/2013 02/01/2014 Inactive doxazosin 4 mg tablet RxNorm: 407162 1 q am 1/2 q pm Tablet(s) PO 09/21/2013 09/20/2013 Inactive amlodipine 10 mg tablet RxNorm: 130141 1 Tablet(s) PO QAM 08/30/2013 08/24/2014 Inactive now taking full tab metoprolol tartrate 100 mg tablet RxNorm: 388852 2 Tablet(s) PO QPM 08/24/2013 10/22/2013 Inactive alprazolam 0.5 mg ta blet RxNorm: 245312 1 Tablet(s) PO as dir ected q hs and prn panic attacks 07/29/2013 10/17/2013 Inactive Benicar 20 mg tablet RxNorm: 112275 1 Tablet(s) PO daily 07/26/2013 08/09/2013 Inactive amlodipine 10 mg tablet RxNorm: 345137 1 Tablet(s) PO QAM 07/19/2013 08/29/2013 Inactive cyclobenzaprine 5 mg tablet RxNorm: 804677 1 Tablet(s) PO TID HI N one pill every 8 hours as needed for muscle spasms. 07/19/2013 03/31/2014 Inactive Kenalog 40 mg/mL Sylvia p for Injection RxNorm: 7978757 1 Milliliter(s) Inj 06/30/2013 06/30/2013 In active prednisone 10 mg tab lets in a dose pack RxNorm: 441814 1 Tablet(s) PO as doc tor directed take steroid taper as directed on box 06/30/2013 07/09/2013 Inactive disp ense one PACK meclizine 25 mg tablet RxNorm: 938343 1 Tablet(s) PO Q6 PRN 1/2 - 1 pill every 6 hours as needed for vertigo 06/30/2013 08/10/2013 Inactive metoprolol tartrate 100 mg tablet RxNorm: 986721 1.5 Tablet(s) PO BID 06/30/2013 08/23/2013 In active metoprolol tartrate 100 mg tablet RxNorm: 085674 1 Tablet(s) PO BID 06/24/2013 06/29/2013 Inactive metoprolol tartrate 100 mg tablet RxNorm: 893464 1 Tablet(s) PO daily 06/17/2013 06/23/2013 In active metoprolol tartrate 100 mg tablet RxNorm: 072476 1 Tablet(s) PO daily 06/17/2013 06/16/2013 In active Toprol XL 100 mg tab let,extended release RxNorm: 891939 Tablet(s) PO TAKE ONE AND ONE- HALF TABLET BY MOUTH EVERY MORNING AND ONE TABLET IN THE EVENING 05/05/2013 06/22/2013 In active alprazolam 0.5 mg ta blet RxNorm: 272658 1 Tablet(s) PO as dir ected q hs and prn panic attacks 04/06/2013 07/28/2013 Inactive doxazosin 4 mg tablet RxNorm: 831729 Tablet(s) PO TAKE ONE TABLET BY MOUTH EV KANE DAY 04/01/2013 09/20/2013 Inactive Toprol XL 100 mg tab let,extended release RxNorm: 650006 Tablet(s) PO TAKE ONE AND ONE- HALF TABLET BY MOUTH EVERY MORNING AND ONE TABLET IN THE EVENING 12/25/2012 05/04/2013 In active Lasix 20 mg tablet RxNorm: 765670 1 Tablet(s) PO QDAY PRN Take 1 tab daily x 3 days then as needed 12/02/2012 04/10/2014 Inactive potassium chloride E R 20 mEq tablet,extended release(part/cryst) RxNorm: 022971 1 Tablet(s) PO PRN 12/02/2012 10/04/2013 Inactive prn swelling alprazolam 0.5 mg ta blet RxNorm: 693621 1 Tablet(s) PO as dir ected q hs and prn panic attacks 12/01/2012 04/05/2013 Inactive amlodipine 10 mg tablet RxNorm: 074617 1/2 Tablet(s) PO QAM 12/01/2012 07/18/2013 Inactive fluconazole 150 mg t ablet RxNorm: 668593 1 Tablet(s) PO daily 11/16/2012 11/20/2012 Inactive fluconazole 150 mg t ablet RxNorm: 731235 1 Tablet(s) PO daily 11/16/2012 11/15/2012 Inactive Nexium 40 mg capsule ,delayed release RxNorm: 862998 1 Capsule(s) PO daily 10/23/2012 11/16/2013 In active acyclovir 400 mg tablet RxNorm: 046135 1 Tablet(s) PO TID 10/19/2012 10/28/2012 Inactive chlordiazepoxide-cli dinium 5 mg-2.5 mg capsule RxNorm: 260926 1 Capsule(s) PO TID P RN 2012 12/22/2013 Inactive Voltaren 1 % Topical Gel RxNorm: 154093 4 Gram(s) TOP QID pt is to use 2 grams to each hand and 4 grams to knees. 08/18/2012 04/10/2014 Inactive doxazosin 4 mg tablet RxNorm: 753883 1 Tablet(s) PO QAM 08/18/2012 10/16/2012 Inactive atorvastatin 20 mg t ablet RxNorm: 054846 1 Tablet(s) PO HS 08/12/2012 08/11/2012 Inactive may have #90 x3 infection atorvastatin 20 mg t ablet RxNorm: 326954 1 Tablet(s) PO HS 08/12/2012 09/05/2013 Inactive may have #90 x3 infection doxazosin 4 mg tablet RxNorm: 544655 1 Tablet(s) PO daily 08/11/2012 08/17/2012 Inactive clonidine 0.1 mg/24 hr Weekly Transderm Patch RxNorm: 912128 1 Patch TD QW 08/04/2012 08/10/2012 In active Influenza Virus Vacc ine 0.5 mL RxNorm: IM 08/04/2012 08/04/2012 Inactive cyclobenzaprine 5 mg tablet RxNorm: 325452 1 Tablet(s) PO TID HI N one pill every 8 hours as needed for muscle spasms. 07/13/2012 11/09/2012 Inactive cyclobenzaprine 5 mg tablet RxNorm: 112880 1 Tablet(s) PO TID HI N one pill every 8 hours as needed for muscle spasms. 07/09/2012 07/12/2012 Inactive gabapentin 100 mg ca psule RxNorm: 722172 1 Capsule(s) PO TID 07/01/2012 12/01/2012 Inactive atorvastatin 20 mg t ablet RxNorm: 895601 1/2 Tablet(s) PO daily 07/01/2012 08/11/2012 Inactive may of day supply if cheaper Toprol XL 100 mg tab let,extended release RxNorm: 684024 Tablet(s) PO BID 11/2 in am and 1 in evening 07/01/2012 06/16/2013 Inactive 1 1/2 q am 1 in polly alprazolam 0.5 mg ta blet RxNorm: 118225 1 Tablet(s) PO as dir ected q hs and prn panic attacks 06/24/2012 11/30/2012 Inactive amlodipine 10 mg tablet RxNorm: 532392 1 Tablet(s) PO QAM 06/19/2012 11/30/2012 Inactive benazepril 20 mg tablet RxNorm: 370608 1 Tablet(s) PO daily 06/19/2012 06/13/2013 Inactive one daily at noon Toprol XL 100 mg tab let,extended release RxNorm: 600384 Tablet(s) PO BID 06/19/2012 06/30/2012 In active 1 1/2 q am 1 in polly Toprol XL 100 mg tab let,extended release RxNorm: 551255 1 1/2 Tablet(s) PO BI D 04/27/2012 06/18/2012 In active 90 or 30 day supply, whatever ins will a llow Lotrel 10 mg-20 mg Cap RxNorm: 016523 1 Capsule(s) PO daily 04/20/2012 08/04/2012 Inactive estradiol 0.5 mg Tab RxNorm: 297754 1 Tablet(s) PO BID 04/20/2012 12/02/2012 Inactive Toprol XL 100 mg 24 hr Tab RxNorm: 448669 1 1/2 Tablet(s) PO BID 04/14/2012 04/26/2012 Inactive Toprol XL 100 mg 24 hr Tab RxNorm: 450545 Tablet(s) PO daily 03/31/2012 04/13/2012 Inactive new directions: one q am 1/2 every evepl ease put on file until she needs filled Lipitor 10 mg tablet RxNorm: 703759 1 Tablet(s) PO daily 03/31/2012 12/02/2012 Inactive march supply if cheaper Toprol XL 100 mg 24 hr Tab RxNorm: 922742 1 Tablet(s) PO daily 03/11/2012 03/30/2012 Inactive Boniva 150 mg Tab RxNorm: 116692 1 Tablet(s) PO weekly 02/19/2012 12/02/2012 Inactive Detrol LA 4 mg capsu le,extended release RxNorm: 464786 1 Capsule(s) PO daily 02/19/2012 03/12/2016 In active doxycycline hyclate 100 mg Tab RxNorm: 932041 1 Tablet(s) PO BID 01/23/2012 02/25/2012 Inactive Rocephin 500 mg Solu tion for Injection RxNorm: 723094 1 Milliliter(s) Inj 01/23/2012 01/23/2012 In active Kenalog 40 mg/mL Sylvai p for Injection RxNorm: 5574178 1 Milliliter(s) Inj 01/23/2012 01/23/2012 In active cyclobenzaprine 5 mg tablet RxNorm: 848826 1 Tablet(s) PO TID HI N one pill every 8 hours as needed for muscle spasms. 12/20/2011 04/17/2012 Inactive clonidine 0.1 mg Tab RxNorm: 161030 1 Tablet(s) PO BID 12/20/2011 02/25/2012 Inactive Vitamin D3 5,000 uni t tablet RxNorm: 918435 1 Tablet(s) PO daily No Start Date Active Nexium 24HR 22.3 mg capsule,delayed release RxNorm: 003952 1 Capsule(s) PO daily as needed No Start Date Active Fish Oil 360 mg-1,20 0 mg capsule,delayed release RxNorm: 1 Capsule(s) PO daily No Start Date Active Lotrel 10 mg-20 mg Cap RxNorm: 898558 1 Capsule(s) PO daily No Start Date 02/24/2012 Inactive benazepril 20 mg tablet RxNorm: 256208 1 Tablet(s) PO No Start Date 06/18/2012 Inactive one daily at noon Vimovo 500 mg-20 mg multiphase, immed & delay rel Tab RxNorm: 934991 1 Tablet(s) PO BID No Start Date 12/01/2012 Inactive B12 1000 mcg RxNorm: 2 IM daily No Start Date 03/12/2016 Inactive Fish Oil 1,000 mg ca psule RxNorm: 1 Capsule(s) PO BID No Start Date 04/12/2014 Inactive Benicar 40 mg tablet RxNorm: 758116 1 Tablet(s) PO daily No Start Date 10/24/2013 Inactive Carafate 1 gram tablet RxNorm: 772730 Oral No Start Date 12/15/2013 Inactive Vitamin B-12 1,000 m cg tablet RxNorm: 696737 1 Tablet(s) PO daily No Start Date 03/12/2016 Inactive amlodipine 10 mg tablet RxNorm: 935169 1 Tablet(s) PO daily No Start Date 06/18/2012 Inactive Phenergan VC-Codeine 6.25 mg-5 mg-10 mg/5 mL Syrup RxNorm: 287264 5-10 Milliliter(s) PO Q6 PRN No Start Date 04/10/2014 Inactive Celebrex 200 mg capsule RxNorm: 368589 1 Capsule(s) PO daily No Start Date 10/08/2015 Inactive Percocet 5 mg-325 mg tablet RxNorm: 8791011 1-2 Tablet(s) PO Q6 PRN No Start Date 06/16/2014 Inactive Exforge 10 mg-320 mg Tab RxNorm: 821569 1 Tablet(s) PO daily sample No Start Date 05/20/2012 Inactive Lipitor 10 mg Tab RxNorm: 240951 1 Tablet(s) PO daily No Start Date 03/30/2012 Inactive tramadol 50 mg tablet RxNorm: 774637 1-2 Tablet(s) PO Q8 as needed No Start Date 04/24/2016 Inactive Lasix 20 mg tablet RxNorm: 947693 1 Tablet(s) PO QDAY PRN Take 1 tab daily x 3 days then as needed No Start Date 12/01/2012 Inactive potassium chloride E R 20 mEq tablet,extended release(part/cryst) RxNorm: 3430798 1 Tablet(s) PO QDAY PRN No Start Ochoa e 12/01/2012 Inactive Toprol XL 100 mg 24 hr Tab RxNorm: 232381 1 Tablet(s) PO daily No Start Date 03/10/2012 Inactive MIDRIN 325 mg-65 mg- 100 mg Cap RxNorm: 574312 1 Capsule(s) PO PRN No Start Date 05/20/2012 Inactive Nexium 40 mg capsule ,delayed release RxNorm: 723516 1 Capsule(s) PO daily No Start Date 10/22/2012 Inactive Detrol LA 4 mg 24 hr Cap RxNorm: 999787 Oral No S tart Date 02/18/2012 Inactive Boniva 150 mg Tab RxNorm: 444484 Oral No Start Date 02/18/2012 Inactive Flexeril 10 mg tablet RxNorm: 671378 1 Tablet(s) PO Q8 PRN No Start Date 03/31/2014 Inactive clidinium bromide Oral RxNorm: Oral No Start Date 12/01/2012 Inactive alprazolam 0.5 mg ta blet RxNorm: 692082 1 Tablet(s) PO as dir ected q hs and prn panic attacks No Start Date 06/23/2012 Inactive chlordiazepoxide Oral RxNorm: Oral No Start Date 12/01/2012 Inactive metoprolol tartrate 100 mg tablet RxNorm: 694136 Tablet(s) PO TAKE ONE AND ONE-HALF (1 & 1/2) TABLET BY MOUTH EVERY MORNING AND TAKE TWO TABLETS BY MOUTH EVERY EVENING No Start Date 08/03/2014 Inactive furosemide 20 mg tablet RxNorm: 384624 1 Tablet(s) PO daily No Start Date 01/29/2016 Inactive Calcium Oral RxNorm: Oral No Start Date 03/12 Inactive Nasonex 50 mcg/actua tion Hagerman RxNorm: 103746 1 Hagerman NASAL BID No Start Date 04/10/2014 Inactive Medication Administered Medication Codes Instruc tions Start Date Status Kenalog 40 mg/mL suspension for injection RxNorm: 1697071 2Milliliter 03/21/2017 N o longer Active Kenalog 40 mg/mL suspension for injection RxNorm: 8684195 1Milliliter 04/04/2016 N o longer Active Kenalog 40 mg/mL suspension for injection RxNorm: 0323436 Milliliter 06/12/2015 No longer Active Kenalog 40 mg/mL suspension for injection RxNorm: 2786949 Milliliter 05/15/2015 No longer Active Kenalog 40 mg/mL suspension for injection RxNorm: 8695838 Milliliter 02/02/2014 No longer Active Kenalog 40 mg/mL Susp for Injection RxNorm: 7316130 1Milliliter 06/30/2013 N o longer Active Influenza Virus Vaccine 0.5 mL RxNorm: 08/04/2012 No longer Active Rocephin 500 mg Solution for Injection RxNorm: 829207 1Milliliter 01/23/2012 N o longer Active Kenalog 40 mg/mL Susp for Injection RxNorm: 2388115 1Milliliter 01/23/2012 N o longer Active Immunizations [...] completed Assessments Condition Codes Effectiv e Dates Allergic contact dermatitis due to plants, except [...] epidermal thickening ICD-10: L85.8 ICD-9: 757.39 01/14/2017 Essential (primary) hypertension ICD -10: I10 ICD-9: 401.9 01/14/2017 Type 2 diabetes mellitus without complications ICD-10: E11.9 ICD-9: 250.00 01/14/2017 Glossodynia ICD-10: K14.6 ICD-9: 529.6 09/23/2016 Encounter for screening mammogram for ma lignant neoplasm of breast ICD-10: Z12.31 ICD-9: V76.12 09/16/2016 Encounter for immunization ICD-10: Z 23 ICD-9: V03.82 09/16/2016 Diseases of lips ICD-10: K13.0 ICD-9: 528.5 06/25/2016 Allergic rhinitis due to pollen ICD- 10: J30.1 ICD-9: 477.9 06/25/2016 Other acute sinusitis ICD-10: J01.80 ICD-9: 461.8 04/04/2016 Acute laryngopharyngitis ICD-10: J06 .0 ICD-9: 465.0 04/04/2016 Other allergic rhinitis ICD-10: J30. 89 ICD-9: 477.8 04/04/2016 Polyneuropathy, unspecified ICD-10: G62.9 ICD-9: 356.9 03/13/2016 Localized edema ICD-10: R60.0 ICD-9: 782.3 03/13/2016 Cervicalgia ICD-10: M54.2 ICD-9: 723.1 10/09/2015 VACCIN FOR INFLUENZA ICD-9: V04.81 07/28/2015 Contact dermatitis ICD-9: 692.9 06/12/2015 Anxiety ICD-9: 300.00 ESSENTIAL HYPERTENSION ICD-9: 401.9 06/05/2015 DIABETES TYPE II ICD-9: 250.00 06/05/2015 ALLERGIC RHINITIS ICD-9: 477.9 05/15/2015 ESOPHAGEAL [...] paroxysmal positional vertigo) ICD-9: 386.11 06/30/2013 Leg pain ICD-9: 729.5 Leg swelling ICD-9: 729.81 12/01/2012 Shingles ICD-9: 053.9 Irritable bowel disease ICD-9: [...] Visit Reason For Visit Effective Dates Notes rash 03/21/2017 arthropod bite 03/19/2017 Annual Medicare [...] Ord2 RDW 14.8 % 06/05/2015 Comp Metabolic Eyg850 NA 138 mEq/L 06/05/2015 Comp Metabolic Tyb182 K 4.3 mEq/L 06/05/2015 Comp Metabolic Qxd807 CL 100 mEq/L 06/05/2015 Comp Metabolic Giw328 CO2 29.0 mEq/L 06/05/2015 Comp Metabolic Noh100 AN ION GAP 13 06/05/2015 Comp Metabolic Xzy254 GL UCOSE 85 mg/dL 06/05/2015 Comp Metabolic Vdv469 Cr eat 0.7 mg/dL 06/05/2015 Comp Metabolic Mlr227 eG FR 94 ml/min/1.73m2 06/05 Comp Metabolic Clo756 BUN 16 mg/dL 06/05/2015 Comp Metabolic Rxi873 B/ C Ratio 24.2 Ratio 06/05/2015 Comp Metabolic Zzk341 CA LCIUM 9.5 mg/dL 06/05/2015 Comp Metabolic Zhm412 AL K PHOS 69 U/L 06/05/2015 Comp Metabolic Tii856 T(SGOT) 22 U/L 06/05/2015 Comp Metabolic Nwt658 AL T(SGPT) 26 U/L 06/05/2015 Comp Metabolic Iqi528 BI LI T 0.5 mg/dL 06/05/2015 Comp Metabolic Kyf027 AL BUMIN 4.2 g/dL 06/05/2015 Comp Metabolic Lou458 TP RO 6.1 g/dL 06/05/2015 Comp Metabolic Ydy833 GL OB 1.9 g/dL 06/05/2015 Comp Metabolic Odo390 A/ G Ratio 2.2 Ratio 06/05/2015 Comp Metabolic Lkc073 Os mo 276 mOsmo 06/05/2015 Tsh Ord6 hTSH II 1.99 uIU/mL 06/05/2015 Lipid Ord30 CHOL 171 mg/dL 06/05/2015 Lipid Ord30 HDL 55.0 mg/dl 06/05/2015 Lipid Ord30 TRIG 178 mg/dL 06/05/2015 Lipid Ord30 LDL 80 mg/dL 06/05/2015 Lipid Ord30 C/HDL 3.1 Ratio 06/05/2015 %Hba1C Xoa072 % HbA1c 81037-3 5.7 % 06/05/2015 %Hba1C Ddf496 Gluc Ave 117 mg/dL 06/05/2015 CHEM 14 8546402 AST 21 U/L 07/15/2014 CHEM 14 0216591 ALT 23 IU/L 07/15/2014 CHEM 14 6360232 BUN 14 MG/DL 07/15/2014 CHEM 14 6128166 ALBUMIN 4.2 GM/DL 07/15/2014 CHEM 14 8901299 CHLORIDE 104 MMOL/L 07/15/2014 CHEM 14 1285018 BILI TOT 0.4 MG/DL 07/15/2014 CHEM 14 4916834 ALK PHOS 88 U/L 07/15/2014 CHEM 14 2449486 SODIUM 140 MMOL/L 07/15/2014 CHEM 14 2568101 CREATINI NE 0.63 MG/DL 07/15/2014 CHEM 14 5085103 CALCIUM 9.4 MG/DL 07/15/2014 CHEM 14 8938991 POTASSIUM 4.0 MMOL/L 07/15/2014 CHEM 14 9453074 PROT TOT 6.4 GM/DL 07/15/2014 CHEM 14 5276969 GLUCOSE 90 MG/DL 07/15/2014 CHEM 14 5073257 BICARB 30 MMOL/L 07/15/2014 CHEM 14 0662646 ANION GAP 6 MEQ/L 07/15/2014 GFR CALC 7228253 GFR AA >60 ML/MIN 07/15/2014 GFR CALC 8077875 GFR NON -AA >60 ML/MIN 07/15/2014 A1C HPLC 0467932 A1C HPLC 02883-0 5.6 % 07/15/2014 A1C HPLC 7545865 A1C HPLC 92910-8 6.0 % 04/13/2014 CBC 1473566 WBC 4.6 10e9/L 04/12/2014 CBC 2809255 RBC 4.52 10e12/L 04/12/2014 CBC 3036341 HGB 13.1 g/dL 04/12/2014 CBC 0988394 HCT DET 39.2 % 04/12/2014 CBC 2351317 MCV 86.7 fL 04/12/2014 CBC 1858406 MCH 29.0 pg 04/12/2014 CBC 9343686 MCHC 33.4 g/dL 04/12/2014 CBC 1612919 PLT 233 10e9/L 04/12/2014 CBC 2783988 MPV 9.8 fL 04/12/2014 CBC 1331943 AN % 59.5 % 04/12/2014 CBC 0858142 LY % 28.6 % 04/12/2014 CBC 0574932 MON % 10.0 % 04/12/2014 CBC 4214369 EOS % 1.5 % 04/12/2014 CBC 4552612 BASO % 0.4 % 04/12/2014 CBC 3917065 RDW 13.7 % 04/12/2014 CBC 6858681 ABS AN 2.74 10e9/L 04/12/2014 CBC 1465571 ABS LYMPH 1.32 10e9/L 04/12/2014 CBC 8015785 ABS MONO 0.46 10e9/L 04/12/2014 CBC 5683373 ABS EOS 0.07 10e9/L 04/12/2014 CBC 8941625 ABS BASO 0.02 10e9/L 04/12/2014 CBC 0358894 RDW-SD 42.6 fL 04/12/2014 GFR CALC 1824613 GFR AA >60 ML/MIN 04/12/2014 GFR CALC 4709479 GFR NON -AA >60 ML/MIN 04/12/2014 TSH 3149731 TSH 1.875 uIU/ML 04/12/2014 CHEM 14 0340802 AST 17 U/L 04/12/2014 CHEM 14 3941355 ALT 20 IU/L 04/12/2014 CHEM 14 5780575 BUN 14 MG/DL 04/12/2014 CHEM 14 3885677 ALBUMIN 4.2 GM/DL 04/12/2014 CHEM 14 6780056 CHLORIDE 104 MMOL/L 04/12/2014 CHEM 14 7219484 BILI TOT 0.3 MG/DL 04/12/2014 CHEM 14 0420995 ALK PHOS 80 U/L 04/12/2014 CHEM 14 3461111 SODIUM 141 MMOL/L 04/12/2014 CHEM 14 8124728 CREATINI NE 0.62 MG/DL 04/12/2014 CHEM 14 8227009 CALCIUM 9.4 MG/DL 04/12/2014 CHEM 14 0991621 POTASSIUM 3.5 MMOL/L 04/12/2014 CHEM 14 2189903 PROT TOT 6.5 GM/DL 04/12/2014 CHEM 14 2691450 GLUCOSE 89 MG/DL 04/12/2014 CHEM 14 2667009 BICARB 29 MMOL/L 04/12/2014 CHEM 14 5572288 ANION GAP 8 MEQ/L 04/12/2014 LIPID GRP HDL TE ST 59 MG/DL 04/12/2014 LIPID GRP TRIG 177 MG/DL 04/12/2014 LIPID GRP 0361580 TEST L DL 106 MG/DL 04/12/2014 LIPID GRP CHOL 200 MG/DL 04/12/2014 LIPID GRP RCHOL/ HDL 3.39 RATIO 04/12/2014 LIPID GRP 1568613 HDL TE ST 57 MG/DL 08/24/2013 LIPID GRP TRIG 183 MG/DL 08/24/2013 LIPID GRP 2339465 TEST L DL 64 MG/DL 08/24/2013 LIPID GRP 7367932 CHOL 158 MG/DL 08/24/2013 LIPID GRP 0469963 RCHOL/ HDL 2.77 RATIO 08/24/2013 CHEM 14 4414146 AST 13 U/L 08/24/2013 CHEM 14 0600731 ALT 15 IU/L 08/24/2013 CHEM 14 4599799 BUN 14 MG/DL 08/24/2013 CHEM 14 1927580 ALBUMIN 4.3 GM/DL 08/24/2013 CHEM 14 6154009 CHLORIDE 106 MMOL/L 08/24/2013 CHEM 14 8237291 BILI TOT 0.3 MG/DL 08/24/2013 CHEM 14 1950087 ALK PHOS 75 U/L 08/24/2013 CHEM 14 4434575 SODIUM 141 MMOL/L 08/24/2013 CHEM 14 5613753 CREATINI NE 0.56 MG/DL 08/24/2013 CHEM 14 3990316 CALCIUM 9.1 MG/DL 08/24/2013 CHEM 14 3000467 POTASSIUM 4.2 MMOL/L 08/24/2013 CHEM 14 5206199 PROT TOT 6.0 GM/DL 08/24/2013 CHEM 14 0509210 GLUCOSE 83 MG/DL 08/24/2013 CHEM 14 2200128 BICARB 28 MMOL/L 08/24/2013 CHEM 14 9918600 ANION GAP 7 MEQ/L 08/24/2013 GFR CALC 5655916 GFR AA >60 ML/MIN 08/24/2013 GFR CALC 5283055 GFR NON -AA >60 ML/MIN 08/24/2013 CBC 7530276 WBC 4.7 10e9/L 08/24/2013 CBC 2709360 RBC 4.33 10e12/L 08/24/2013 CBC 0258568 HGB 12.5 g/dL 08/24/2013 CBC 4733703 HCT DET 38.2 % 08/24/2013 CBC 3516950 MCV 88.2 fL 08/24/2013 CBC 3923230 MCH 28.9 pg 08/24/2013 CBC 2084859 MCHC 32.7 g/dL 08/24/2013 CBC 2426700 PLT 218 10e9/L 08/24/2013 CBC 2483267 MPV 10.4 fL 08/24/2013 CBC 8731819 AN % 61.9 % 08/24/2013 CBC 2974161 LY % 24.8 % 08/24/2013 CBC 1764505 MON % 10.3 % 08/24/2013 CBC 4688638 EOS % 2.1 % 08/24/2013 CBC 9313673 BASO % 0.9 % 08/24/2013 CBC 9689829 RDW 14.6 % 08/24/2013 CBC 7563741 ABS AN 2.91 10e9/L 08/24/2013 CBC 9819376 ABS LYMPH 1.17 10e9/L 08/24/2013 CBC 1351685 ABS MONO 0.48 10e9/L 08/24/2013 CBC 5782610 ABS EOS 0.10 10e9/L 08/24/2013 CBC 3838824 ABS BASO 0.04 10e9/L 08/24/2013 CBC 0219735 RDW-SD 46.7 fL 08/24/2013 TSH 2620146 TSH 1.208 uIU/ML 08/24/2013 Review of Systems System Result Effective Dates Constitutional No recent illness 03/21/2017 Constitutional No [...] No alteration of consciousness 04/03/2016 Psychiatric anxiety 06/11/2015 Ears/Nose/Throat/Neck postnasal drip 04/03/2016 Neurologic No mental [...] Result Effective Dates Notes Full Exam - Dermatology Constitutional general appearance [...] Date TRIAMCINOLONE ACET I [place] NOS CPT-4: E4479Mhdkltm 03/21/2017 PPPS, SUBSEQ VISIT CPT-4: S5248Awzwoxl 01/22/2017 ADMIN PNEUMOCOCCAL V ACCINE SNOMED CT: 35450749 CPT-4: E4703Exusdjj 09/16/2016 Pneumococcal Polysac charide Vaccine, 23-Valent, Ad CPT-4: 88948Imqfhgb 09/16/2016 THER/PROPH/DIAG INJ SC/IM CPT-4: 90520Xviznvy 04/04/2016 TRIAMCINOLONE ACET I [place] NOS CPT-4: M3746Rtqcmob 04/04/2016 ADMIN INFLUENZA VIRU S VAC CPT-4: D5406Hjgyfiu 07/28/2015 FLU VACC 4 XIMENA 3 YRS PLUS IM Formatting Model/CDA Sections, Assigned to/Jen Cota SNOMED CT: 33675653 CPT-4: 04690Kvxuzpx 07/28/2015 TRIAMCINOLONE ACET I [place] NOS CPT-4: J1155Vzdavze 06/12/2015 TRIAMCINOLONE ACET I [place] NOS CPT-4: U9587Ijanoqu 05/15/2015 ADMIN INFLUENZA VIRU S VAC CPT-4: J1420Oqvhoaz 07/19/2014 FLU VAC NO PRSV 4 VA L 3 YRS+ Assigned to/Jen Cota CPT-4: 84060Qxnkapu 07/19/2014 TRIAMCINOLONE ACET I [place] NOS CPT-4: H8651Qdmjdhs 02/02/2014 ROUTINE VENIPUNCTURE CPT-4: 63282Nkxzihl 08/24/2013 ADMIN INFLUENZA VIRU S VAC CPT-4: M9408Wthbsnz 07/26/2013 FLULAVAL VACC, 3 YRS & >, IM CPT-4: G3367Qmcizsl 07/26/2013 TRIAMCINOLONE ACET I [place] NOS CPT-4: X4505Jzikdfi 06/30/2013 PRESCRIP TRANSMIT A ERX SY CPT-4: R4258Pujxtfy 06/30/2013 PRESCRIP TRANSMIT A ERX SY CPT-4: M4951Uicizak 12/01/2012 PRESCRIP TRANSMIT A ERX SY CPT-4: X6116Nxgrwzg 10/19/2012 PRESCRIP TRANSMIT A ERX SY CPT-4: Z2224Esbgovy 10/07/2012 PRESCRIP TRANSMIT A ERX SY CPT-4: R3528Eugjgys 2012 PRESCRIP TRANSMIT A ERX SY CPT-4: H8947Urxfauo 08/18/2012 ADMIN INFLUENZA VIRU S VAC CPT-4: N2229Zmgamxn 08/04/2012 FLULAVAL VACC, 3 YRS & >, IM CPT-4: D6508Wlcdegf 08/04/2012 PRESCRIP TRANSMIT A ERX SY CPT-4: U8421Lqfzbau 08/04/2012 PRESCRIP TRANSMIT A ERX SY CPT-4: T9698Ndwdvoo 07/01/2012 ROCEPHIN, PER 250 MG CPT-4: T5945Rquuphb 01/23/2012 TRIAMCINOLONE ACET I [place] NOS CPT-4: H4254Iklpxcn 01/23/2012 THER/PROPH/DIAG INJ SC/IM CPT-4: 50447Fbsigxv 01/23/2012 REMOVE IMPACTED EAR WAX UNI CPT-4: 00892Kpjwvgk 01/02/2012 ROUTINE VENIPUNCTURE CPT-4: 19002Fgzjjge 12/20/2011 Vital Signs Date Vital 03/21/2017 Blood Pressure 1: 152/88 Code: 8480-6 Heart Rate 1: 70 bpm Height: SpO2: 98% Weight: 03/19/2017 Blood Pressure 1: 132/64 Code: 8480-6 BMI: 33.0 Code: 93018-3 Heart Rate 1: 64 bpm Height: 5' SpO2: 96% Weight: 172 lbs 01/22/2017 Blood Pressure 1: 120/68 Code: 8480-6 BMI: 33.4 Code: 73410-2 Heart Rate 1: 68 bpm Height: 5' SpO2: 96% Weight: 174 lbs 01/14/2017 Blood Pressure 1: 138/80 Code: 8480-6 BMI: 33.4 Code: 45381-9 Heart Rate 1: 69 bpm Height: 5' SpO2: 98% Weight: 174 lbs 09/23/2016 Blood Pressure 1: 138/70 Code: 8480-6 BMI: 33.6 Code: 49744-5 Heart Rate 1: 68 bpm Height: 5' SpO2: 98% Temperature: 36.4 (C ) / 97.5 (F) Weight: 175 lbs 09/16/2016 Blood Pressure 1: 124/74 Code: 8480-6 BMI: 33.6 Code: 30806-9 Heart Rate 1: 64 bpm Height: 5' SpO2: 97% Weight: 175 lbs 06/25/2016 Weigh t: 174 lbs 06/17/2016 Blood Pressure 1: 128/80 Code: 8480-6 BMI: 34.0 Code: 58417-9 Heart Rate 1: 76 bpm Height: 5' SpO2: 95% Weight: 177 lbs 04/03/2016 Blood Pressure 1: 138/72 Code: 8480-6 BMI: 34.2 Code: 35866-3 Heart Rate 1: 63 bpm Height: 5' SpO2: 96% Weight: 178 lbs 03/13/2016 Blood Pressure 1: 128/72 Code: 8480-6 BMI: 35.3 Code: 38901-1 Heart Rate 1: 71 bpm Height: 5' SpO2: 97% Weight: 184 lbs 01/30/2016 Blood Pressure 1: 134/72 Code: 8480-6 BMI: 35.2 Code: 01083-8 Heart Rate 1: 71 bpm Height: 5' SpO2: 96% Weight: 183 lbs 12/21/2015 Blood Pressure 1: 148/90 Code: 8480-6 BMI: 34.6 Code: 20805-4 Heart Rate 1: 89 bpm Height: 5' SpO2: 96% Weight: 180 lbs 10/09/2015 Blood Pressure 1: 124/76 Code: 8480-6 BMI: 34.6 Code: 01256-5 Heart Rate 1: 88 bpm Height: 5' SpO2: 96% Weight: 180 lbs 06/12/2015 Blood Pressure 1: 148/74 Code: 8480-6 BMI: 33.4 Code: 02275-4 Heart Rate 1: 70 bpm Height: 5' SpO2: 96% Weight: 174 lbs 06/05/2015 Blood Pressure 1: 142/82 Code: 8480-6 BMI: 33.2 Code: 36770-4 Heart Rate 1: 72 bpm Height: 5' Weight: 173 lbs 05/15/2015 Blood Pressure 1: 118/80 Code: 8480-6 BMI: 33.6 Code: 00062-3 Heart Rate 1: 82 bpm Height: 5' Weight: 175 lbs 02/06/2015 Blood Pressure 1: 122/76 Code: 8480-6 BMI: 34.6 Code: 82379-2 Heart Rate 1: 58 bpm Height: 5' Weight: 180 lbs 01/10/2015 Blood Pressure 1: 158/90 Code: 8480-6 Blood Pressure 2: 152/90 Code: 8480-6 BMI: 34.6 Code: 54947-3 Heart Rate 1: 68 bpm Height: 5' Weight: 180 lbs 07/19/2014 Blood Pressure 1: 142/78 Code: 8480-6 BMI: 33.6 Code: 26025-9 Heart Rate 1: 56 bpm Height: 5' Weight: 175 lbs 06/17/2014 Blood Pressure 1: 128/86 Code: 8480-6 Heart Rate 1: 66 bpm SpO2: 98% Weight: 172 lbs 04/19/2014 Blood Pressure 1: 152/82 Code: 8480-6 BMI: 32.5 Code: 81170-3 Heart Rate 1: 60 bpm Height: 5' Weight: 169 lbs 04/11/2014 Blood Pressure 1: 120/80 Code: 8480-6 BMI: 33.4 Code: 97027-8 Heart Rate 1: 64 bpm Height: 5' Weight: 174 lbs 03/10/2014 Blood Pressure 1: 136/64 Code: 8480-6 BMI: 32.7 Code: 30150-5 Heart Rate 1: 76 bpm Height: 5' Weight: 170 lbs 02/02/2014 Blood Pressure 1: 160/76 Code: 8480-6 BMI: 32.7 Code: 21402-6 Heart Rate 1: 64 bpm Height: 5' Weight: 170 lbs 10/25/2013 Blood Pressure 1: 164/82 Code: 8480-6 BMI: 31.9 Code: 84581-4 Heart Rate 1: 60 bpm Height: 5' Weight: 166 lbs 08/24/2013 Blood Pressure 1: 138/88 Code: 8480-6 Heart Rate 1: 80 bpm Weight: 07/26/2013 Blood Pressure 1: 154/70 Code: 8480-6 Heart Rate 1: 72 bpm Weight: 162 lbs 06/30/2013 Blood Pressure 1: 182/86 Code: 8480-6 Heart Rate 1: 80 bpm Weight: 06/24/2013 Blood Pressure 1: 148/68 Code: 8480-6 BMI: 31.3 Code: 68003-1 Heart Rate 1: 72 bpm Height: 5' [...] 1: 142/88 Code: 8480-6 BMI: 30.6 Code: 47058-8 Heart Rate 1: 64 bpm Height: 5' [...] 1: 180/96 Code: 8480-6 BMI: 30.5 Code: 91317-0 Heart Rate 1: 76 bpm Height: 5' Respiratory Rate: 16 bpm Weight: 159 lbs 02/19/2012 Blood Pressure 1: 150/70 Code: 8480-6 Blood Pressure 2: 160/78 Code: 8480-6 Heart Rate 1: 76 bpm Respiratory Rate: 16 bpm Weight: 158 lbs 01/23/2012 Blood Pressure 1: 140/84 Code: 8480-6 BMI: 30.3 Code: 24983-9 Heart Rate 1: 68 bpm Height: 5' Respiratory Rate: 16 bpm SpO2: 98% Temperature: 37.0 (C ) / 98.6 (F) Weight: 158 lbs 01/02/2012 Blood Pressure 1: 142/92 Code: 8480-6 BMI: 30.7 Code: 95712-1 Heart Rate 1: 72 bpm Height: 5' Respiratory Rate: 16 bpm Weight: 160 lbs 12/20/2011 Blood Pressure 1: 170/84 Code: 8480-6 BMI: 30.0 Code: 46567-9 Heart Rate 1: 70 bpm Height: 5' Respiratory Rate: 16 bpm Weight: 156 lbs Functional Status No Functional Status data History of Present Illness Symptom Name Status Resu lt Effective Date Notes rash Location-Major on t he head 03/21/2017 [...] 06/12/2015 None rash Location-Head/Neck on the right gnosticist 06/12/2015 None rash Location-Head/Neck on the right [...] Factors allergen exposure 02/02/2014 None hypertension [facility] 10/25/2013 None hypertension Onset and Resolution [...] Findings Denies tachycardia 08/24/2013 None hypertension [facility] 07/26/2013 None hypertension Onset and [...] Factors position change 06/30/2013 None hypertension [facility] 06/30/2013 None hypertension Onset and Resolution ongoing 06/30/2013 None hypertension Blood Pressure Values pt checking blood pressure - see scanned document 06/30/2013 149-178/82 hypertension [facility] 06/24/2013 patient states that her [...] Encounters Encounter Performer Loca tion Codes Date ([id number]) 45355 EST. P ATIENT, LEVEL III Diagnosis: Allergic contact dermatitis due to plants, except food[ICD10: L23.7] Kacy Varela MD, [facility] CPT-4: 45296 03/21/2017 53497 EST. PATIENT, LEVEL III Diagnosis: Bitten or stung by nonvenomous insect and other nonvenomous arthropods, initial encounter[ICD10: W57.XXXA] Diagnosis: Cellulitis of left lower limb[ICD10: L03.116] Laura Varela MD, [facility] CPT-4: 73340 03/19/2017 ([id number]) 16603 EST. P ATIENT, LEVEL IV Diagnosis: Type 2 diabetes mellitus without complications[ICD10: E11.9] Diagnosis: Essential (primary) hypertension[ICD10: I10] Diagnosis: Other specified epidermal thickening[ICD10: L85.8] Zoya Varela MD [facility] CPT-4: 86675 01/14/2017 32433 EST. PATIENT, LEVEL III Diagnosis: Glossodynia[ICD10: K14.6] Kacy Varela MD, [facility] CPT- 4: 74272 09/23/2016 ([id number]) 90637 EST. P ATIENT, LEVEL IV Diagnosis: Encounter for screening mammogram for malignant neoplasm of breast[ICD10: Z12.31] Diagnosis: Encounter for immunization[ICD10: Z23] Zoya Varela MD, [facility] CPT-4: 47723 09/16/2016 ([id number]) 61034 EST. P ATIENT, LEVEL III Diagnosis: Diseases of lips[ICD10: K13.0] Diagnosis: Allergic rhinitis due to pollen[ICD10: J30.1] Kacy Varela MD, [facility] CPT-4: 64642 06/25/2016 ([id number]) 59283 EST. P ATIENT, LEVEL III Diagnosis: Essential (primary) hypertension[ICD10: I10] Kacy Varela MD, [facility] CPT-4: 24338 06/17/2016 43999 EST. PATIENT, LEVEL IV Diagnosis: Other acute sinusitis[ICD10: J01.80] Diagnosis: Acute laryngopharyngitis[ICD10: J06.0] Diagnosis: Other allergic rhinitis[ICD10: J30.89] Laura Varela MD, [facility] CPT-4: 85933 04/03/2016 ([id number]) 45080 EST. P ATIENT, LEVEL IV Diagnosis: Essential (primary) hypertension[ICD10: I10] Diagnosis: Localized edema[ICD10: R60.0] Diagnosis: Polyneuropathy, unspecified[ICD10: G62.9] Zoya Varela MD, [facility] CPT-4: 38897 03/13/2016 ([id number]) 19589 EST. P ATIENT, LEVEL IV Diagnosis: Essential (primary) hypertension[ICD10: I10] Diagnosis: Localized edema[ICD10: R60.0] Diagnosis: Type 2 diabetes mellitus without complications[ICD10: E11.9] Zoya Varela MD, [facility] CPT-4: 40890 01/30/2016 53902 EST. PATIENT, LEVEL IV Diagnosis: Localized edema[ICD10: R60.0] Laura Varela MD, [facility] CPT-4: 63271 12/21/2015 ([id number]) 79475 EST. P ATIENT, LEVEL III Diagnosis: Essential (primary) hypertension[ICD10: I10] Diagnosis: Allergic rhinitis due to pollen[ICD10: J30.1] Diagnosis: Cervicalgia[ICD10: M54.2] Kacy Varela MD, [facility] CPT- 4: 25251 10/09/2015 27448 EST. PATIENT, LEVEL II Diagnosis: Contact dermatitis[ICD9: 692.9] Kacy Varela MD, [facility] CPT- 4: 30589 06/12/2015 ([id number]) 06247 EST. P ATIENT, LEVEL III Diagnosis: ESSENTIAL HYPERTENSION[ICD9: 401.9] Diagnosis: DIABETES TYPE II[ICD9: 250.00] Diagnosis: Anxiety[ICD9: 300.00] Kacy Varela MD, [facility] CPT-4: 58147 06/05/2015 ([id number]) 84138 EST. P ATIENT, LEVEL IV Diagnosis: Anxiety[ICD9: 300.00] Diagnosis: ALLERGIC RHINITIS[ICD9: 477.9] Diagnosis: ESOPHAGEAL REFLUX[ICD9: 530.81] Kacy Varela MD, [facility] CPT- 4: 39408 05/15/2015 ([id number]) 19908 EST. P ATIENT, LEVEL III Diagnosis: ESSENTIAL HYPERTENSION[ICD9: 401.9] Zoya Varela MD, [facility] CPT- 4: 68729 02/06/2015 ([id number]) 09189 EST. P ATIENT, LEVEL IV Diagnosis: ESSENTIAL HYPERTENSION[ICD9: 401.9] Diagnosis: EDEMA[ICD9: 782.3] Diagnosis: DIABETES TYPE II[ICD9: 250.00] Zoya Varela MD, [facility] CPT-4: 25427 01/10/2015 ([id number]) 96200 EST. P ATIENT, LEVEL IV Diagnosis: ESSENTIAL HYPERTENSION[ICD9: 401.9] Diagnosis: DIABETES TYPE II[ICD9: 250.00] Zoya Varela MD, [facility] CPT-4: 13835 07/19/2014 ([id number]) 84261 EST. P ATIENT, LEVEL III Diagnosis: Left ankle pain[ICD9: 719.47] Kacy Varela MD, [facility] CPT- 4: 06447 06/17/2014 ([id number]) 14809 EST. P ATIENT, LEVEL III Diagnosis: ESSENTIAL HYPERTENSION[ICD9: 401.9] Diagnosis: Elevated blood sugar[ICD9: 790.29] Zoya Varela MD, [facility] CPT- 4: 20250 04/19/2014 ([id number]) 41421 EST. P ATIENT, LEVEL IV Diagnosis: ESSENTIAL HYPERTENSION[SNOMED: 61483938] Diagnosis: ESOPHAGEAL REFLUX[ICD9: 530.81] Zoya Varela MD, [facility] CPT-4: 93932 04/11/2014 ([id number]) 38384 EST. P ATIENT, LEVEL IV Diagnosis: ALLERGIC RHINITIS[ICD9: 477.9] Diagnosis: Anxiety[ICD9: 300.00] Diagnosis: Dyspnea[ICD9: 786.09] Diagnosis: ESOPHAGEAL REFLUX[ICD9: 530.81] Kacy Varela MD, [facility] CPT- 4: 14004 03/10/2014 ([id number]) 97342 EST. P ATIENT, LEVEL III Diagnosis: ALLERGIC RHINITIS[ICD9: 477.9] Diagnosis: ESSENTIAL HYPERTENSION[SNOMED: 75321743] Kacy Varela MD, [facility] CPT-4: 80308 02/02/2014 ([id number]) 25002 EST. P ATIENT, LEVEL III Diagnosis: ESSENTIAL HYPERTENSION[SNOMED: 62276904] Diagnosis: Skin irritation[ICD9: 709.9] Zoya Varela MD, [facility] CPT-4: 78872 10/25/2013 ([id number]) 03184 EST. P ATIENT, LEVEL III Diagnosis: HYPERLIPIDEMIA[ICD9: 272.4] Diagnosis: ESSENTIAL HYPERTENSION[SNOMED: 50588980] Diagnosis: EDEMA[ICD9: 782.3] Diagnosis: Encounter for long-term (current) use of other medications[ICD9: V58.69] Zoya Varela MD, [facility] CPT-4: 29534 08/24/2013 ([id number]) 14899 EST. P ATIENT, LEVEL III Diagnosis: ESSENTIAL HYPERTENSION[SNOMED: 50402227] Zoya Varela MD, [facility] CPT-4: 39217 07/26/2013 ([id number]) 62229 EST. P ATIENT, LEVEL III Diagnosis: ESSENTIAL HYPERTENSION[SNOMED: 84588174] Zoya Varela MD, [facility] CPT-4: 02186 06/30/2013 ([id number]) 51500 EST. P ATIENT, LEVEL III Diagnosis: ESSENTIAL HYPERTENSION[SNOMED: 42417939] Zoya Varela MD, [facility] CPT-4: 13411 06/24/2013 ([id number]) 76432 EST. P ATIENT, LEVEL IV Diagnosis: ESSENTIAL HYPERTENSION[SNOMED: 28342404] Diagnosis: Leg pain[ICD9: 729.5] Diagnosis: Leg swelling[ICD9: 729.81] Zoya Varela MD, [facility] CPT-4: 41497 12/01/2012 ([id number]) 35392 EST. P ATIENT, LEVEL III Diagnosis: Shingles[ICD9: 053.9] Zoya Varela MD, [facility] CPT-4: 84703 10/19/2012 ([id number]) 49601 EST. P ATIENT, LEVEL IV Diagnosis: EDEMA[ICD9: 782.3] Diagnosis: ESSENTIAL HYPERTENSION[SNOMED: 88540619] Zoya Varela MD, [facility] CPT-4: 24974 10/07/2012 ([id number]) 80371 EST. P ATIENT, LEVEL IV Diagnosis: ESSENTIAL HYPERTENSION[SNOMED: 33557639] Diagnosis: EDEMA[ICD9: 782.3] Diagnosis: Irritable bowel disease[ICD9: 564.1] Zoya Varela MD, [facility] CPT-4: 71939 2012 ([id number]) 88733 EST. P ATIENT, LEVEL III Diagnosis: ESSENTIAL HYPERTENSION[SNOMED: 86177254] Zoya Varela MD, [facility] CPT-4: 03642 08/18/2012 ([id number]) 14858 EST. P ATIENT, LEVEL III Diagnosis: ESSENTIAL HYPERTENSION[SNOMED: 01399539] Zoya Varela MD, [facility] CPT-4: 27767 08/04/2012 ([id number]) 23157 EST. P ATIENT, LEVEL IV Diagnosis: ESSENTIAL HYPERTENSION[SNOMED: 76379497] Diagnosis: Lumbago[ICD9: 724.2] Diagnosis: HYPERLIPIDEMIA[ICD9: 272.4] Zoya Varela MD, [facility] CPT-4: 93527 07/01/2012 ([id number]) 56671 EST. P ATIENT, LEVEL III Diagnosis: ESSENTIAL HYPERTENSION[SNOMED: 23999176] Zoya Varela MD, C CPT-4: 75796 05/20/2012 ([id number]) 52627 EST. P ATIENT, LEVEL IV Diagnosis: ESSENTIAL HYPERTENSION[SNOMED: 89823960] Diagnosis: Hot flash, menopausal[ICD9: 627.2] Zoya Varela MD, [facility] CPT- 4: 98872 04/20/2012 98958 EST. PATIENT, LEVEL IV Diagnosis: SPASM OF MUSCLE[ICD9: 728.85] Diagnosis: Back pain[ICD9: 724.5] Diagnosis: ESSENTIAL HYPERTENSION[SNOMED: 33214878] Zoya Varela MD, C CPT-4: 55889 03/10/2012 ([id number]) 15883 EST. P ATIENT, LEVEL IV Diagnosis: COUGH[ICD9: 786.2] Diagnosis: Allergic rhinitis[ICD9: 477.9] Diagnosis: Malignant reactive hypertension[ICD9: 401.0] Zoya Varela MD, C CPT-4: 67027 02/25/2012 ([id number]) 72283 EST. P ATIENT, LEVEL III Diagnosis: ESSENTIAL HYPERTENSION[SNOMED: 25203016] Zoya Varela MD, C CPT-4: 52423 02/19/2012 25811 EST. PATIENT, LEVEL IV Diagnosis: ESSENTIAL HYPERTENSION[SNOMED: 33234498] Diagnosis: Cough[ICD9: 786.2] Kacy Varela MD, [facility] CPT-4: 74083 01/23/2012 ([id number]) 38997 EST. P ATIENT, LEVEL IV Diagnosis: HYPERLIPIDEMIA[ICD9: 272.4] Diagnosis: ESSENTIAL HYPERTENSION[SNOMED: 33110907] Zoya Varela MD, C CPT-4: 80313 01/02/2012 OFFICE VISIT, NEW - LEVEL 4 Diagnosis: ESSENTIAL HYPERTENSION[SNOMED: 99794363] Diagnosis: HYPERLIPIDEMIA[ICD9: 272.4] Diagnosis: IMPACTED CERUMEN[ICD9: 380.4] Diagnosis: Muscle spasm[ICD9: 728.85] Diagnosis: CHRONIC TENSION HEADACHE[ICD9: 339.12] Diagnosis: Neck pain, chronic[ICD9: 723.1] Diagnosis: Change in skin mole[ICD9: 216.9] Zoya Varela MD, [facility] CPT-4: 51611 12/20/2011 Plan of Care Planned Activity Notes C odes Status Date Visit Plan: Poison Sarah -kenalog injectio n today in the office-start prednisone tomorrow pt is to use topical treatments as directed. Pt is cleanse clothing in hot water with soap, and call if symptoms do not improve or if they worsen. 03/21/2017 Appointment: Kacy Moses WPtel: [address] [place], [place] [phone] [place] (15 min) Moderate 03/21/2017 Patient Education: [...] pain. 03/19/2017 Appointment: [phone] (15 min) Moderate 03/19/2017 Patient Education: [...] hearing. 01/22/2017 Appointment: Laura Velasco WPtel: [phone] [id number] [facility] - Annual Wellness Visit 01/22/2017 Appointment: [...] home. 01/14/2017 Appointment: Zoya Varela WPtel: [phone] [facility] (15 min) Moderate 01/14/2017 Patient Education: Patient [...] plan. 09/23/2016 Appointment: Kacy Moses WPtel: [phone] [phone] [place] (15 min) Moderate 09/23/2016 Patient Education: [...] medications. 09/16/2016 Appointment: Zoya Varela WPtel: [phone] [facility] [place] (15 min) Moderate 09/16/2016 Patient Education: Patient Medication Summary Completed 09/16/2016 Patient Education: Obesity Completed 09/16/2016 Care Plan: SCREENINGMAMMOGRAPHYDIGITAL [facility] : [address]91-8 Pending 09/16/2016 Visit Plan: Cracked/painful lips-bacteri al [...] any worse. 06/25/2016 Appointment: Kacy Moses WPtel: [phone] [place] (15 min) Moderate 06/25/2016 Patient Education: [...] allergy spray. 04/03/2016 Appointment: Kacy Moses WPtel: [facility]5 [phone] (30 min) Complex 04/03/2016 Patient Education: Patient [...] Hypertension Completed 03/13/2016 Appointment: Zoya Varela WPtel: [facility]5 [facility] (15 min) Moderate 02/28/2016 Appointment: Zoya Varela WPtel: [facility]5 [facility] (15 min) Moderate 02/01/2016 Visit Plan: [...] for treatment. 01/30/2016 Appointment: [facility]arela WPtel: [facility] (15 min) Moderate 01/30/2016 Patient Education: [...] at home. 02/06/2015 Appointment: Zoya Varela WPtel: [phone] Follow up 02/06/2015 Patient Education: Patient Medication [...] peripheral edema. 01/10/2015 Appointment: Zoya Varela WPtel: [phone] [facility] Sick 01/10/2015 Patient Education: Patient Medication Summary [...] less controlled. 07/19/2014 Appointment: Z[facility]la [facility]Ptel[phone] Follow up 07/19/2014 Patient Education: Patient Medication Summary Completed 07/19/2014 Patient Education: Hypertension Completed 07/19/2014 Care Plan: SCREENINGMAMMOGRAPHYDIGITAL LOINC : 46089-4 Ordered 07/19/2014 Visit Plan: Left ankle opfj-qnputw-ttoil mend rest ice and anti inflammatories as [...] home. 04/19/2014 Appointment: K[facility] Moses WPtel: [phone] Diabetic education 04/19/2014 Patient Education: Patient [...] medications. 04/11/2014 Appointment: Zoya Varela WPtel: [phone] [facility] Follow up 04/11/2014 Patient Education: Patient [...] to spray in the nasal steroid allergy spray.Dxwdtoa-hnjhtrxzchdb-vlljiiu xanax at bedtime Esophageal Reflux - the patient has been counseled against excessive intake of caffiene, spicy foods, peppermint, and cinnamon - all of which can exacerbate esophageal reflux.The patient is to take medications as prescribed and call the office if the symptoms are not improving. 03/10/2014 Appointment: Zoya Varela WPtel: [phone] [facility] Other 03/10/2014 Patient Education: Patient Medication [...] allergy spray. 2013 Appointment: Kacy Moses WPtel: [id number] Other 02/02/2014 Patient Education: Patient Medication [...] site. 10/25/2013 Appointment: Zoya Varela WPtel: [phone] [facility] Follow up 10/25/2013 Patient Education: Patient [...] BEDTIME 08/24/2013 Appointment: Zoya Varela WPtel: [phone] [facility] Follow up 08/24/2013 Patient Education: Patient [...] concerns. 07/26/2013 Appointment: Zoya Varela WPtel: [phone] [facility] Follow up 07/26/2013 Patient Education: Patient [...] NOT IMPROVE. 06/30/2013 Appointment: Zoya Varela WPtel: [address] [place], [place] [phone] Other 06/30/2013 Patient Education: Patient Medication Summary [...] acute concerns. 06/24/2013 Appointment: Kacy Moses WPtel: [address] [place], [place] [phone] Follow up 06/24/2013 Patient Education: Patient Medication Summary Completed 06/24/2013 Patient Education: Hypertension Completed 06/24/2013 Appointment: Zoya Varela WPtel: [address] [place], [place] [phone] Other 03/23/2013 Visit Plan: Hypotension - pt is on chron ic antihypertensive medication - the medication has been adjusted down to attempt to alleviate the low blood pressures.Leg pain - Leg swelling - pt to have ultrasound on her right lower leg due to post-operative swelling and pain. 12/01/2012 Appointment: Zoya Varela WPtel: [address] [place], [place] [phone] Follow up 12/01/2012 Patient Education: Patient Medication Summary Completed 12/01/2012 Patient Education: Hypertension Completed 12/01/2012 Appointment: Zoya Varela WPtel: [address] [place], [place] [phone] Follow up 10/20/2012 Visit Plan: Shingles - [...] considered contagious. 10/19/2012 Appointment: Zoya Varela WPtel: [facility] Other 10/19/2012 Patient Education: Patient Medication Summary Completed 10/19/2012 Visit Plan: Hypertension - well [facility] ed - continue with current medications, continue [...] peripheral edema. 10/07/2012 Appointment: Kacy Moses WPtel: [phone] [place] Other 10/07/2012 Patient Education: Hypertension Completed [...] peripheral edema. 2012 Appointment: Zoya Varela WPtel: [facility] Other 2012 Patient Education: Patient Medication [...] THE EVENING. 08/18/2012 Appointment: Zoya Varela WPtel: [phone] [facility] Follow up 08/18/2012 Patient Education: Patient [...] the knees. 08/04/2012 Appointment: Zoya Varela WPtel: [phone] [facility] Follow up 08/04/2012 Patient Education: Patient [...] twice daily. 07/01/2012 Appointment: Zoya Varela WPtel: [facility]1 [place] [phone] Other 07/01/2012 Patient Education: Patient Medication Summary [...] two weeks 05/20/2012 Appointment: Zoya Varela WPtel: [facility] Follow up 05/20/2012 Patient Education: Patient Medication Summary Completed 05/20/2012 Patient Education: High Blood Pressure: Essential Hypertension Completed 05/20/2012 Appointment: Zoya Varela WPtel: [facility]8 [facility] Other 05/11/2012 Visit Plan: Hypertension - uncontrolled [...] dosing. 04/20/2012 Appointment: Zoya Varela WPtel: [phone] [facility] Follow up 04/20/2012 Patient Education: Patient Medication [...] few weeks. 03/10/2012 Appointment: Zoya Varela WPtel: [phone] Other 03/10/2012 Patient Education: Patient Medication [...] with codeine. 02/25/2012 Appointment: Zoya Varela WPtel: [phone] [facility] Other 02/25/2012 Patient Education: Patient Medication Summary [...] office. 02/19/2012 Appointment: Zoya Varela WPtel: [phone] [facility]6[address] Other 02/19/2012 Patient Education: Patient Medication [...] office 01/23/2012 Appointment: Kacy Moses WPtel: [phone] [facility] Other 01/23/2012 Patient Education: Patient Medication Summary [...] TWICE DAILY. 01/02/2012 Appointment: Zoya Varela WPtel: [address] [place] [address] [facility] 01/02/2012 Patient Education: Patient Medication Summary Completed [...] wks. 12/20/2011 Appointment: Zoya Varela WPtel: [phone] [facility] [place] New Patient 12/20/2011 Patient Education: Patient [...] to further attempt to reduce peripheral edema. PT TO CUT AMLODIPINE TO 1/2 OF [...] due to post-operative swelling and pain. . Left ankle pain-sp rain-recommend rest ice and anti inflammatories as directed-also plan for xray left ankle DEXILANT 60MG DAILY- TAKE SAMPLES UNTIL GONE [...] if the symptoms are not improving. . Hypertension - wel l controlled - [...] to be uncontrolled, increase to bid dosing. THE PATIENT IS TO CH JUSTINE HER [...] if needed. Patient verbalized understanding of plan. PATIENT IS TO CHECK BLOOD PRESSURE AND [...] 1/2 pill of DOXAZOSIN IN THE EVENING. BENICAR 20MG DAILY SAMPLES GIVEN. Hypertension - [...] call if symptoms are not improving. . Cracked/painful li ps-bacterial culture today in [...] NUMBER, call the office. . Hypertension - unc ontrolled - the [...] use benadryl cream to the site. . If the clonidine p [facility] has the blood pressures at or below 120/80, then the pt is to stop her norvasc and call the clinic, pt is to rtc in 2 weeks. Apply the pennsaid 15 drops to each knee three times daily, rub in the pennsaid to hands after each application on the knees. increase doxazosin t o 1.5 of the [...] through with his plans for treatment. . Shingles - Herpes Zoster - acute [...] the pt is to be considered contagious. Thigh high compressi on hose-on in the [...] . Hypertension - well controlled - rebeka tyler with current medications, continue with no added [...] further attempt to reduce peripheral edema. . Elevated blood sug ars-diabetes and diet [...] CLONIDINE 0.1 mg by mouth TWICE DAILY. CLARITIN 10MG DAILY PEPCID 20MG TWICE DAILY [...] and heart rate readings in two weeks START STEROID TAPER ON FRIDAY. MECLIZINE IS [...] CALL IF DIZZINESS DOES NOT IMPROVE. . Hypertension - un controlled - the [...] nasal steroid allergy spray. . Hypertension - wel l controlled - [...] exposure. No change in current medications. . Cracked/painful li ps-bacterial culture today in the office-discussed keeping lips well moisturized-get new toothbrush, lip gloss, etc. Call if symptoms do not resolve or if any worse. We will get a chest xray at the hospital today. I will call you with the results. Symbicort 2 puffs twice daily. Call if you are short of breath or other concerns. I sent a prescription for an antibiotic, doxycycline, to [facility]. It is twice daily. Take it until [...] spray in the nasal steroid allergy spray. Niaygaj-vlljwddconcz-jxhbwik xanax at bedtime Esophageal Reflux - the [...]
[2020-05-26 03:01] LABS: ALBUMIN 4.2 GM/DL (3.2-4.5); POTASSIUM 3.8 MMOL/L (3.6-5.0)
[2020-05-26 03:03] LABS: CALCIUM 9.7 MG/DL (8.5-10.1)
--- OUTSIDE RECORDS SUMMARY | 2020-05-26 03:03 | XMS REPORT | CCD ---
Author Author Natali Varela Organization [facility] Address [address] [place] [address] Phone Care Team Providers Care Busboy Name Role Phone PP Unavailable CCM Unavailable Summary Purpose Interface Exchange Insurance Providers Payer name Policy type / Coverage type Covered republican ID Effective Begin Date Effective End Date WPS Medicare Part B Medicare Part B [id number] Unknown [employer] I[employer] Medicare Part B [id number] Unknown Family history Mother Diagnosis Age At Onset Liver Failure Unknown Diabetes mellitus Type 2 Unknown Hyperlipidemia Unknown Hypertension Unknown Cancer Unknown Arthritis Unknown Father Diagnosis Age At Onset Liver Failure Unknown Cancer Unknown Social History Social History Element Codes Description Effective Dates Marital status Unknown M arried 12/12/2011 Number of children Unknown 3 12/12/[address]: 2485813 Former smoker quit in 199212/12/2011 Allergies, Adverse [...] Fill Instructions tramadol 50 mg tablet RxNorm: 534271 1-2 Tablet(s) PO Q8 as needed 04/07/2017 07/05/2017 Ac tive cyclobenzaprine 10 m g tablet RxNorm: 333471 TAKE ONE TABLET BY MO [facility] EVERY 8 HOURS NEEDED 04/07/2017 04/26/2017 Active Xanax 0.25 mg tablet RxNorm: 534458 1/2-1 Tablet(s) PO QDAY PRN 04/04/2017 06/02/2017 Active metoprolol tartrate 100 mg tablet RxNorm: 818705 TAKE ONE AND ONE-HALF (1 & 1/2) TABLET BY MOUTH EVERY MORNING AND TAKE TWO TABLETS BY MOUTH EVERY EVENING 03/28/2017 07/25/2017 Ac tive prednisone 10 mg tab lets in a dose pack RxNorm: 785367 1 Tablet(s) PO UD 03/21/2017 03/26/2017 In active 6-5-4-3-2-1 Kenalog 40 mg/mL sylvia pension for injection RxNorm: 7509518 2 Milliliter(s) Inj 03/21/2017 03/21/2017 In active doxycycline hyclate 100 mg capsule RxNorm: 2101889 1 Capsule(s) PO BID 03/19/2017 03/28/2017 In active cyclobenzaprine 10 m g tablet RxNorm: 160334 TAKE ONE TABLET BY MO [facility] EVERY 8 HOURS NEEDED 02/25/2017 03/16/2017 Inactive triamcinolone aceton pineda 0.1 % topical ointment RxNorm: 9893221 1 Application TOP TI D 02/21/2017 02/20/2017 Inactive triamcinolone aceton pineda 0.1 % topical ointment RxNorm: 3048836 1 Application TOP TI D 02/21/2017 03/02/2017 Inactive doxazosin 4 mg tablet RxNorm: 966775 TAKE ONE AND ONE-HALF (1 & 1/2) TABLET B Y MOUTH BY MOUTH TWO TIMES A DAY 02/14/2017 01/09/2018 Active cyclobenzaprine 10 m g tablet RxNorm: 563006 TAKE ONE TABLET BY MO [facility] EVERY 8 HOURS NEEDED 01/27/2017 02/15/2017 Inactive ammonium lactate 12 % topical cream RxNorm: 472705 1 Application TOP BID 01/14/2017 02/12/2017 In active dispense one bottle of the cream potassium chloride E R 10 mEq tablet,extended release RxNorm: 612282 1 Tablet(s) PO PRN as needed with lasix 11/13/2016 No Stop Date Active prn swelling furosemide 20 mg tablet RxNorm: 672327 1 Tablet(s) PO daily as needed edema 11/13/2016 01/11/2017 In active metoprolol tartrate 100 mg tablet RxNorm: 582112 TAKE ONE AND ONE-HALF (1 & 1/2) TABLET BY MOUTH EVERY MORNING AND TAKE TWO TABLETS BY MOUTH EVERY EVENING 11/01/2016 03/27/2017 In active atorvastatin 20 mg t ablet RxNorm: 817334 TAKE ONE TABLET BY MO U[facility] DAILY 10/31/2016 04/28/2017 Ac tive cyclobenzaprine 10 m g tablet RxNorm: 025281 TAKE ONE TABLET BY MO [facility] EVERY 8 HOURS NEEDED 10/25/2016 12/03/2016 Inactive Lyrica 25 mg capsule RxNorm: 802158 1 Tablet(s) PO BID 09/23/2016 01/13/2017 Inactive Lyrica 50 mg capsule RxNorm: 118948 1 Capsule(s) PO BID 09/16/2016 01/13/2017 Inactive amlodipine 5 mg tablet RxNorm: 612882 Tablet(s) TAKE ONE TABLET BY MOUTH DAILY 08/28/2016 07/23/2017 Ac tive cyclobenzaprine 10 m g tablet RxNorm: 952252 TAKE ONE TABLET BY [place] [facility] EVERY 8 HOURS NEEDED 08/05/2016 09/13/2016 Inactive Xanax 0.25 mg tablet RxNorm: 086548 1/2-1 Tablet(s) PO QDAY PRN 07/16/2016 04/03/2017 Inactive amlodipine 5 mg tablet RxNorm: 090215 TAKE ONE TABLET BY MOUTH DAILY 06/28/2016 08/26/2016 In active metoprolol tartrate 100 mg tablet RxNorm: 621895 Tablet(s) TAKE ONE AN D ONE-HALF (1 & 1/2) TABLET BY MOUTH EVERY MORNING AND TAKE TWO TABLETS BY MOUTH EVERY EVENING 05/02/2016 05/02/2016 Inactive metoprolol tartrate 100 mg tablet RxNorm: 988787 Tablet(s) PO TAKE ONE AND ONE-HALF (1 & 1/2) TABLET BY MOUTH EVERY MORNING AND TAKE TWO TABLETS BY MOUTH EVERY EVENING 05/02/2016 05/01/2016 Inactive metoprolol tartrate 100 mg tablet RxNorm: 091857 Tablet(s) PO TAKE ONE AND ONE-HALF (1 & 1/2) TABLET BY MOUTH EVERY MORNING AND TAKE TWO TABLETS BY MOUTH EVERY EVENING 05/02/2016 10/28/2016 Inactive tramadol 50 mg tablet RxNorm: 675939 1-2 Tablet(s) PO Q8 as needed 04/25/2016 No Stop Date Active atorvastatin 20 mg t ablet RxNorm: 864706 TAKE ONE TABLET BY MO U[facility] DAILY 04/25/2016 10/21/2016 In active cyclobenzaprine 10 m g tablet RxNorm: 469221 Tablet(s) PO TAKE ONE TABLET BY MOUTH EVERY 8 HOURS NEEDED 04/18/2016 06/16/2016 Inactive Kenalog 40 mg/mL sylvia pension for injection RxNorm: 9429523 1 Milliliter(s) Inj 04/04/2016 04/04/2016 In active Phenergan with Codei ne Syrup RxNorm: PO 04/03/2016 No Stop Date Active Zithromax Z-Kush 250 mg tablet RxNorm: 643000 1 Tablet(s) PO UD 04/03/2016 04/07/2016 Inactive 2 tabs on day 1 then 1 tab daily on days 2-5 amlodipine 5 mg tablet RxNorm: 773037 TAKE ONE TABLET BY MOUTH DAILY 03/27/2016 06/24/2016 In active Flexeril 10 mg tablet RxNorm: 990311 TAKE ONE TABLET BY MOUTH EVERY 8 HOURS A S NEEDED 03/14/2016 04/02/2016 Inactive Vitamin B-12 ER 2,00 0 mcg tablet,extended release RxNorm: 716590 1 Tablet(s) PO daily 03/13/2016 No Stop Date Active Vitamin B-12 ER 2,00 0 mcg tablet,extended release RxNorm: 656701 1 Tablet(s) PO daily 03/13/2016 No Stop Date Active gabapentin 100 mg ca psule RxNorm: 477254 1 Capsule(s) PO BID 03/13/2016 09/15/2016 Inactive Flexeril 10 mg tablet RxNorm: 718570 Tablet(s) TAKE ONE TABLET BY MOUTH EVERY 8 HOURS NEEDED 02/08/2016 02/27/2016 Inactive Xanax 0.25 mg tablet RxNorm: 235711 1/2-1 Tablet(s) PO QDAY PRN 02/08/2016 07/15/2016 Inactive amlodipine 5 mg tablet RxNorm: 928495 1 Tablet(s) PO daily 02/06/2016 03/26/2016 Inactive furosemide 20 mg tablet RxNorm: 971578 1 Tablet(s) PO daily 01/30/2016 06/16/2016 Inactive amlodipine 10 mg tablet RxNorm: 855861 1/2 Tablet(s) PO daily 01/30/2016 02/05/2016 Inactive doxazosin 4 mg tablet RxNorm: 769580 1.5 Tablet(s) PO BID 01/30/2016 01/23/2017 Inactive Flexeril 10 mg tablet RxNorm: 604177 TAKE ONE TABLET BY MOUTH EVERY 8 HOURS A S NEEDED 01/10/2016 01/29/2016 Inactive potassium chloride E R 10 mEq tablet,extended release RxNorm: 130785 1 Tablet(s) PO PRN as needed with lasix 12/25/2015 06/16/2016 Inactive prn swelling amlodipine 10 mg tablet RxNorm: 520037 TAKE ONE TABLET BY MOUTH EVERY MORNING 12/25/2015 12/24/2015 In active amlodipine 10 mg tablet RxNorm: 884262 TAKE ONE TABLET BY MOUTH EVERY MORNING 12/25/2015 01/29/2016 In active furosemide 20 mg tablet RxNorm: 718771 1/2 Tablet(s) PO daily as needed edema 12/21/2015 01/19/2016 In active pt needs to take 10meq potassium on days she takes the lasix metoprolol tartrate 100 mg tablet RxNorm: 422088 TAKE ONE AND ONE-HALF (1 & 1/2) TABLET BY MOUTH EVERY MORNING AND TAKE TWO TABLETS BY MOUTH EVERY EVENING 11/08/2015 12/07/2015 In active Flonase Allergy Reli ef 50 mcg/actuation nasal spray,suspension RxNorm: [place] as needed PLACE 2 SPRAYS IN EACH NOSTRIL DAILY 10/09/2015 02/05/2016 Inactive Flexeril 10 mg tablet RxNorm: 127337 1 Tablet(s) PO TID PRN TAKE ONE TABLET B Y MOUTH EVERY 8 HOURS NEEDED 10/09/2015 12/07/2015 Inactive alprazolam 0.5 mg ta blet RxNorm: 041259 [facility] TABLET [facility] NEEDED FOR ANXIETY 08/29/2015 11/23/2015 Inactive Flonase Allergy Reli ef 50 mcg/actuation nasal spray,suspension RxNorm: PLACE 2 SPRAYS IN EACH NOSTRIL DAILY 07/06/2015 10/08/2015 Inactive Kenalog 40 mg/mL sylvia pension for injection RxNorm: 7025065 Milliliter(s) Inj 06/12/2015 06/12/2015 In active prednisone 10 mg tab lets in a dose pack RxNorm: 632200 1 Tablet(s) PO UD 06/12/2015 06/17/2015 In active 6-5-4-3-2-1 acyclovir 800 mg tablet RxNorm: 674501 1 Tablet(s) PO TID 06/12/2015 06/21/2015 Inactive Xanax 0.25 mg tablet RxNorm: 415575 1/2-1 Tablet(s) PO QDAY PRN 05/15/2015 02/07/2016 Inactive Flonase Allergy Reli ef 50 mcg/actuation nasal spray,suspension RxNorm: 2 [place] NASAL daily 05/15/2015 06/13/2015 Inactive Kenalog 40 mg/mL sylvia pension for injection RxNorm: 2330237 Milliliter(s) Inj 05/15/2015 05/15/2015 In active metoprolol tartrate 100 mg tablet RxNorm: 617671 TAKE ONE AND ONE-HALF (1 & 1/2) TABLET BY MOUTH EVERY MORNING AND TAKE TWO TABLETS BY MOUTH EVERY EVENING 05/07/2015 06/05/2015 In active metoprolol tartrate 100 mg tablet RxNorm: 433521 TAKE ONE AND ONE-HALF (1 & 1/2) TABLET BY MOUTH EVERY MORNING AND TAKE TWO TABLETS BY MOUTH EVERY EVENING 04/05/2015 05/04/2015 In active amlodipine 10 mg tablet RxNorm: 478969 TAKE ONE TABLET BY MOUTH EVERY MORNING 03/10/2015 12/04/2015 In active alprazolam 0.5 mg ta blet RxNorm: 928284 TAKE ONE TABLET BY [facility] EVERY NIGHT AT BEDTIME NEEDED FOR ANXIETY 02/23/2015 03/24/2015 Inactive (Response to an electronic controlled substance refill request - RxReferenceNumber: [id number]) alprazolam 0.5 mg ta blet RxNorm: 200047 1 Tablet(s) PO QHS as needed anxiety 02/23/2015 08/29/2015 In active (Response to an electronic controlled salas bstance refill request - RxReferenceNumber: [id number]) doxazosin 4 mg tablet RxNorm: 558763 TAKE ONE TABLET BY MOUTH TWICE A DAY 02/13/2015 01/29/2016 In active atorvastatin 20 mg t ablet RxNorm: 315352 TAKE ONE TABLET BY MO [facility] EVERY DAY 01/19/2015 07/17/2015 In active atorvastatin 20 mg t ablet RxNorm: 237438 Tablet(s) TAKE ONE TA BLET BY MOUTH EVERY DAY 01/19/2015 01/18/2015 Inactive [SAVINGS FOR NON-COVERED DRUGS -- BIN:00 3585, PCN: ASPROD1, Group: XXXXX, ID# [id number], Questions: . THIS IS NOT INSURANCE.] Maxzide-25mg 37.5 mg -25 mg tablet RxNorm: 43354 1 Tablet(s) PO daily 01/10/2015 10/08/2015 Inactive [SAVINGS FOR NON-COVERED DRUGS -- BIN:00 3585, PCN: ASPROD1, Group: XXXXX, ID# [id number], Questions: . THIS IS NOT INSURANCE.] metoprolol tartrate 100 mg tablet RxNorm: 523203 TAKE ONE AND ONE-HALF (1 & 1/2) TABLET BY MOUTH EVERY MORNING AND TAKE TWO TABLETS BY MOUTH EVERY EVENING 12/05/2014 01/03/2015 In active Flexeril 10 mg tablet RxNorm: 651490 TAKE ONE TABLET BY MOUTH EVERY 8 HOURS A S NEEDED 10/31/2014 06/27/2015 Inactive alprazolam 0.5 mg ta blet RxNorm: 747377 1 Tablet(s) PO QHS TA KE ONE TABLET BY MOUTH EVERY NIGHT AT BEDTIME AND NEEDED FOR PANIC ATTACKS 10/21/2014 10/23/2014 Inactive (Appended: Controlled substance eRx refi ll - RxReferenceNumber: [id number]) alprazolam 0.5 mg ta blet RxNorm: 256255 TAKE ONE TABLET BY [facility] EVERY NIGHT AT BEDTIME NEEDED FOR ANXIETY 10/20/2014 11/18/2014 Inactive (Response to an electronic controlled substance refill request - RxReferenceNumber: [id number]) amlodipine 10 mg tablet RxNorm: 760306 1 Tablet(s) PO QAM 09/09/2014 03/07/2015 Inactive now taking full tab [SAVINGS FOR UNINSURED PATIENTS -- BIN:897249, PCN: ASPROD1, Group: [id number], ID# [id number], Process claim through [employer], for questions: . THIS IS NOT INSURANCE.] metoprolol tartrate 100 mg tablet RxNorm: 486336 TAKE ONE AND ONE-HALF (1 & 1/2) TABLET BY MOUTH EVERY MORNING AND TAKE TWO TABLETS BY MOUTH EVERY EVENING 09/03/2014 10/02/2014 In active alprazolam 0.5 mg ta blet RxNorm: 182235 TAKE ONE TABLET BY [facility] EVERY NIGHT AT BEDTIME AND NEEDED FOR PANIC ATTACKS 08/29/2014 09/12/2014 Inactive (Response to an electronic controlled substance refill request - RxReferenceNumber: [id number]) Zithromax Z-Kush 250 mg tablet RxNorm: 147708 1 Tablet(s) PO UD 07/26/2014 07/25/2014 Inactive 2 tabs on day 1 then 1 tab daily on days 2-5 Zithromax Z-Kush 250 mg tablet RxNorm: 481689 1 Tablet(s) PO UD 07/26/2014 07/30/2014 Inactive 2 tabs on day 1 then 1 tab daily on days 2-5 alprazolam 0.5 mg ta blet RxNorm: 079055 Tablet(s) PO TAKE ONE TABLET BY MOUTH EVERY NIGHT AT BEDTIME AND NEEDED FOR PANIC ATTACKS 07/08/2014 08/30/2014 Inactive (Appended: Controlled substance eRx refill - RxReferenceNumber: [id number]) atorvastatin 20 mg t ablet RxNorm: 997290 TAKE ONE TABLET BY MO [facility] EVERY DAY 04/25/2014 01/18/2015 In active Carafate 1 gram tablet RxNorm: 020909 Tablet(s) PO TAKE ONE TABLET BY MOUTH FO UR TIMES A DAY 04/14/2014 10/08/2015 Inactive Fish Oil 1,000 mg ca psule RxNorm: 1 Capsule(s) PO TID 04/13/2014 10/08/2015 Inactive Flexeril 10 mg tablet RxNorm: 961623 1 Tablet(s) PO Q8 PRN 04/01/2014 04/10/2014 Inactive Carafate 1 gram tablet RxNorm: 909985 1 Tablet(s) PO QID 03/10/2014 04/08/2014 Inactive chlordiazepoxide-cli dinium 5 mg-2.5 mg capsule RxNorm: 583032 1 Capsule(s) PO TID P RN 03/10/2014 04/10/2014 Inactive doxazosin 4 mg tablet RxNorm: 739010 1 Tablet(s) PO BID 02/02/2014 02/12/2015 Inactive Kenalog 40 mg/mL sylvia pension for injection RxNorm: 7664566 Milliliter(s) Inj 02/02/2014 02/02/2014 In active atorvastatin 20 mg t ablet RxNorm: 122622 Tablet(s) PO TAKE ONE TABLET BY MOUTH EVERY DAY 01/10/2014 04/24/2014 Inactive alprazolam 0.5 mg ta blet RxNorm: 289757 Tablet(s) PO TAKE ONE TABLET BY MOUTH EVERY NIGHT AT BEDTIME AND NEEDED FOR PANIC ATTACKS 01/10/2014 07/07/2014 Inactive (Appended: Controlled substance eRx refill - RxReferenceNumber: [id number]) alprazolam 0.5 mg ta blet RxNorm: 803838 1 Tablet(s) PO QHS TA KE ONE TABLET BY MOUTH EVERY NIGHT AT BEDTIME AND NEEDED FOR PANIC ATTACKS 01/10/2014 10/20/2014 Inactive (Appended: Controlled substance eRx refi ll - RxReferenceNumber: [id number]) alprazolam 0.5 mg ta blet RxNorm: 367382 Tablet(s) PO TAKE ONE TABLET BY MOUTH EVERY NIGHT AT BEDTIME AND NEEDED FOR PANIC ATTACKS 01/10/2014 01/09/2014 Inactive (Appended: Controlled substance eRx refill - RxReferenceNumber: [id number]) Carafate 1 gram tablet RxNorm: 113858 1 Tablet(s) PO QID 12/16/2013 01/14/2014 Inactive Nexium 40 mg capsule ,delayed release RxNorm: 663710 Capsule(s) PO TAKE ON E CAPSULE BY MOUTH EVERY DAY 11/25/2013 03/12/2016 Inactive doxazosin 4 mg tablet RxNorm: 995844 1/2 Tablet(s) PO QPM 10/21/2013 10/20/2013 Inactive alprazolam 0.5 mg ta blet RxNorm: 214621 1 Tablet(s) PO as dir ected q hs and prn panic attacks 10/18/2013 01/10/2014 Inactive doxazosin 4 mg tablet RxNorm: 163064 1 q am 1/2 q pm Tablet(s) PO 09/21/2013 02/01/2014 Inactive doxazosin 4 mg tablet RxNorm: 554331 1 q am 1/2 q pm Tablet(s) PO 09/21/2013 09/20/2013 Inactive amlodipine 10 mg tablet RxNorm: 800218 1 Tablet(s) PO QAM 08/30/2013 08/24/2014 Inactive now taking full tab metoprolol tartrate 100 mg tablet RxNorm: 032379 2 Tablet(s) PO QPM 08/24/2013 10/22/2013 Inactive alprazolam 0.5 mg ta blet RxNorm: 397230 1 Tablet(s) PO as dir ected q hs and prn panic attacks 07/29/2013 10/17/2013 Inactive Benicar 20 mg tablet RxNorm: 863515 1 Tablet(s) PO daily 07/26/2013 08/09/2013 Inactive amlodipine 10 mg tablet RxNorm: 914758 1 Tablet(s) PO QAM 07/19/2013 08/29/2013 Inactive cyclobenzaprine 5 mg tablet RxNorm: 942276 1 Tablet(s) PO TID MT N one pill every 8 hours as needed for muscle spasms. 07/19/2013 03/31/2014 Inactive Kenalog 40 mg/mL Sylvia p for Injection RxNorm: 0410898 1 Milliliter(s) Inj 06/30/2013 06/30/2013 In active prednisone 10 mg tab lets in a dose pack RxNorm: 524920 1 Tablet(s) PO as doc tor directed take steroid taper as directed on box 06/30/2013 07/09/2013 Inactive disp ense one PACK meclizine 25 mg tablet RxNorm: 075127 1 Tablet(s) PO Q6 PRN 1/2 - 1 pill every 6 hours as needed for vertigo 06/30/2013 08/10/2013 Inactive metoprolol tartrate 100 mg tablet RxNorm: 263880 1.5 Tablet(s) PO BID 06/30/2013 08/23/2013 In active metoprolol tartrate 100 mg tablet RxNorm: 656075 1 Tablet(s) PO BID 06/24/2013 06/29/2013 Inactive metoprolol tartrate 100 mg tablet RxNorm: 972099 1 Tablet(s) PO daily 06/17/2013 06/23/2013 In active metoprolol tartrate 100 mg tablet RxNorm: 163113 1 Tablet(s) PO daily 06/17/2013 06/16/2013 In active Toprol XL 100 mg tab let,extended release RxNorm: 796097 Tablet(s) PO TAKE ONE AND ONE- HALF TABLET BY MOUTH EVERY MORNING AND ONE TABLET IN THE EVENING 05/05/2013 06/22/2013 In active alprazolam 0.5 mg ta blet RxNorm: 809369 1 Tablet(s) PO as dir ected q hs and prn panic attacks 04/06/2013 07/28/2013 Inactive doxazosin 4 mg tablet RxNorm: 621447 Tablet(s) PO TAKE ONE TABLET BY MOUTH EV KANE DAY 04/01/2013 09/20/2013 Inactive Toprol XL 100 mg tab let,extended release RxNorm: 763601 Tablet(s) PO TAKE ONE AND ONE- HALF TABLET BY MOUTH EVERY MORNING AND ONE TABLET IN THE EVENING 12/25/2012 05/04/2013 In active Lasix 20 mg tablet RxNorm: 075925 1 Tablet(s) PO QDAY PRN Take 1 tab daily x 3 days then as needed 12/02/2012 04/10/2014 Inactive potassium chloride E R 20 mEq tablet,extended release(part/cryst) RxNorm: 356497 1 Tablet(s) PO PRN 12/02/2012 10/04/2013 Inactive prn swelling alprazolam 0.5 mg ta blet RxNorm: 619301 1 Tablet(s) PO as dir ected q hs and prn panic attacks 12/01/2012 04/05/2013 Inactive amlodipine 10 mg tablet RxNorm: 317515 1/2 Tablet(s) PO QAM 12/01/2012 07/18/2013 Inactive fluconazole 150 mg t ablet RxNorm: 725613 1 Tablet(s) PO daily 11/16/2012 11/20/2012 Inactive fluconazole 150 mg t ablet RxNorm: 968627 1 Tablet(s) PO daily 11/16/2012 11/15/2012 Inactive Nexium 40 mg capsule ,delayed release RxNorm: 394691 1 Capsule(s) PO daily 10/23/2012 11/16/2013 In active acyclovir 400 mg tablet RxNorm: 278907 1 Tablet(s) PO TID 10/19/2012 10/28/2012 Inactive chlordiazepoxide-cli dinium 5 mg-2.5 mg capsule RxNorm: 318215 1 Capsule(s) PO TID P RN 2012 12/22/2013 Inactive Voltaren 1 % Topical Gel RxNorm: 027392 4 Gram(s) TOP QID pt is to use 2 grams to each hand and 4 grams to knees. 08/18/2012 04/10/2014 Inactive doxazosin 4 mg tablet RxNorm: 155731 1 Tablet(s) PO QAM 08/18/2012 10/16/2012 Inactive atorvastatin 20 mg t ablet RxNorm: 427698 1 Tablet(s) PO HS 08/12/2012 08/11/2012 Inactive may have #90 x3 infection atorvastatin 20 mg t ablet RxNorm: 676298 1 Tablet(s) PO HS 08/12/2012 09/05/2013 Inactive may have #90 x3 infection doxazosin 4 mg tablet RxNorm: 378480 1 Tablet(s) PO daily 08/11/2012 08/17/2012 Inactive clonidine 0.1 mg/24 hr Weekly Transderm Patch RxNorm: 709021 1 Patch TD QW 08/04/2012 08/10/2012 In active Influenza Virus Vacc ine 0.5 mL RxNorm: IM 08/04/2012 08/04/2012 Inactive cyclobenzaprine 5 mg tablet RxNorm: 955177 1 Tablet(s) PO TID MT N one pill every 8 hours as needed for muscle spasms. 07/13/2012 11/09/2012 Inactive cyclobenzaprine 5 mg tablet RxNorm: 083790 1 Tablet(s) PO TID MT N one pill every 8 hours as needed for muscle spasms. 07/09/2012 07/12/2012 Inactive gabapentin 100 mg ca psule RxNorm: 885361 1 Capsule(s) PO TID 07/01/2012 12/01/2012 Inactive atorvastatin 20 mg t ablet RxNorm: 508892 1/2 Tablet(s) PO daily 07/01/2012 08/11/2012 Inactive may of day supply if cheaper Toprol XL 100 mg tab let,extended release RxNorm: 822739 Tablet(s) PO BID 11/2 in am and 1 in evening 07/01/2012 06/16/2013 Inactive 1 1/2 q am 1 in [place] alprazolam 0.5 mg ta blet RxNorm: 984945 1 Tablet(s) PO as dir ected q hs and prn panic attacks 06/24/2012 11/30/2012 Inactive amlodipine 10 mg tablet RxNorm: 925085 1 Tablet(s) PO QAM 06/19/2012 11/30/2012 Inactive benazepril 20 mg tablet RxNorm: 325218 1 Tablet(s) PO daily 06/19/2012 06/13/2013 Inactive one daily at noon Toprol XL 100 mg tab let,extended release RxNorm: 603215 Tablet(s) PO BID 06/19/2012 06/30/2012 In active 1 1/2 q am 1 in [place]ly Toprol XL 100 mg tab let,extended release RxNorm: 604677 1 1/2 Tablet(s) PO BI D 04/27/2012 06/18/2012 In active 90 or 30 day supply, whatever ins will a llow Lotrel 10 mg-20 mg Cap RxNorm: 724650 1 Capsule(s) PO daily 04/20/2012 08/04/2012 Inactive estradiol 0.5 mg Tab RxNorm: 337237 1 Tablet(s) PO BID 04/20/2012 12/02/2012 Inactive Toprol XL 100 mg 24 hr Tab RxNorm: 474834 1 1/2 Tablet(s) PO BID 04/14/2012 04/26/2012 Inactive Toprol XL 100 mg 24 hr Tab RxNorm: 666894 Tablet(s) PO daily 03/31/2012 04/13/2012 Inactive new directions: one q am 1/2 every evepl ease put on file until she needs filled Lipitor 10 mg tablet RxNorm: 437760 1 Tablet(s) PO daily 03/31/2012 12/02/2012 Inactive march of day supply if cheaper Toprol XL 100 mg 24 hr Tab RxNorm: 437790 1 Tablet(s) PO daily 03/11/2012 03/30/2012 Inactive Boniva 150 mg Tab RxNorm: 847711 1 Tablet(s) PO weekly 02/19/2012 12/02/2012 Inactive Detrol LA 4 mg capsu le,extended release RxNorm: 490397 1 Capsule(s) PO daily 02/19/2012 03/12/2016 In active doxycycline hyclate 100 mg Tab RxNorm: 852798 1 Tablet(s) PO BID 01/23/2012 02/25/2012 Inactive Rocephin 500 mg Solu tion for Injection RxNorm: 157823 1 Milliliter(s) Inj 01/23/2012 01/23/2012 In active Kenalog 40 mg/mL Sylvia p for Injection RxNorm: 1205303 1 Milliliter(s) Inj 01/23/2012 01/23/2012 In active cyclobenzaprine 5 mg tablet RxNorm: 201251 1 Tablet(s) PO TID MT N one pill every 8 hours as needed for muscle spasms. 12/20/2011 04/17/2012 Inactive clonidine 0.1 mg Tab RxNorm: 351550 1 Tablet(s) PO BID 12/20/2011 02/25/2012 Inactive Vitamin D3 5,000 uni t tablet RxNorm: 138532 1 Tablet(s) PO daily No Start Date Active Nexium 24HR 22.3 mg capsule,delayed release RxNorm: 919460 1 Capsule(s) PO daily as needed No Start Date Active Fish Oil 360 mg-1,20 0 mg capsule,delayed release RxNorm: 1 Capsule(s) PO daily No Start Date Active Lotrel 10 mg-20 mg Cap RxNorm: 286285 1 Capsule(s) PO daily No Start Date 02/24/2012 Inactive benazepril 20 mg tablet RxNorm: 966132 1 Tablet(s) PO No Start Date 06/18/2012 Inactive one daily at noon Vimovo 500 mg-20 mg multiphase, immed & delay rel Tab RxNorm: 502882 1 Tablet(s) PO BID No Start Date 12/01/2012 Inactive B12 1000 mcg RxNorm: 2 IM daily No Start Date 03/12/2016 Inactive Fish Oil 1,000 mg ca psule RxNorm: 1 Capsule(s) PO BID No Start Date 04/12/2014 Inactive Benicar 40 mg tablet RxNorm: 625011 1 Tablet(s) PO daily No Start Date 10/24/2013 Inactive Carafate 1 gram tablet RxNorm: 924369 Oral No Start Date 12/15/2013 Inactive Vitamin B-12 1,000 m cg tablet RxNorm: 032602 1 Tablet(s) PO daily No Start Date 03/12/2016 Inactive amlodipine 10 mg tablet RxNorm: 545361 1 Tablet(s) PO daily No Start Date 06/18/2012 Inactive Phenergan VC-Codeine 6.25 mg-5 mg-10 mg/5 mL Syrup RxNorm: 372165 5-10 Milliliter(s) PO Q6 PRN No Start Date 04/10/2014 Inactive Celebrex 200 mg capsule RxNorm: 338575 1 Capsule(s) PO daily No Start Date 10/08/2015 Inactive Percocet 5 mg-325 mg tablet RxNorm: 3453038 1-2 Tablet(s) PO Q6 PRN No Start Date 06/16/2014 Inactive Exforge 10 mg-320 mg Tab RxNorm: 670451 1 Tablet(s) PO daily sample No Start Date 05/20/2012 Inactive Lipitor 10 mg Tab RxNorm: 760571 1 Tablet(s) PO daily No Start Date 03/30/2012 Inactive tramadol 50 mg tablet RxNorm: 441621 1-2 Tablet(s) PO Q8 as needed No Start Date 04/24/2016 Inactive Lasix 20 mg tablet RxNorm: 353069 1 Tablet(s) PO QDAY PRN Take 1 tab daily x 3 days then as needed No Start Date 12/01/2012 Inactive potassium chloride E R 20 mEq tablet,extended release(part/cryst) RxNorm: 3608688 1 Tablet(s) PO QDAY PRN No Start Ochoa e 12/01/2012 Inactive Toprol XL 100 mg 24 hr Tab RxNorm: 433690 1 Tablet(s) PO daily No Start Date 03/10/2012 Inactive MIDRIN 325 mg-65 mg- 100 mg Cap RxNorm: 743913 1 Capsule(s) PO PRN No Start Date 05/20/2012 Inactive Nexium 40 mg capsule ,delayed release RxNorm: 976647 1 Capsule(s) PO daily No Start Date 10/22/2012 Inactive Detrol LA 4 mg 24 hr Cap RxNorm: 682636 Oral No S tart Date 02/18/2012 Inactive Boniva 150 mg Tab RxNorm: 874538 Oral No Start Date 02/18/2012 Inactive Flexeril 10 mg tablet RxNorm: 611818 1 Tablet(s) PO Q8 PRN No Start Date 03/31/2014 Inactive clidinium bromide Oral RxNorm: Oral No Start Date 12/01/2012 Inactive alprazolam 0.5 mg ta blet RxNorm: 743766 1 Tablet(s) PO as dir ected q hs and prn panic attacks No Start Date 06/23/2012 Inactive chlordiazepoxide Oral RxNorm: Oral No Start Date 12/01/2012 Inactive metoprolol tartrate 100 mg tablet RxNorm: 025053 Tablet(s) PO TAKE ONE AND ONE-HALF (1 & 1/2) TABLET BY MOUTH EVERY MORNING AND TAKE TWO TABLETS BY MOUTH EVERY EVENING No Start Date 08/03/2014 Inactive furosemide 20 mg tablet RxNorm: 118690 1 Tablet(s) PO daily No Start Date 01/29/2016 Inactive Calcium Oral RxNorm: Oral No Start Date 03/12 Inactive Nasonex 50 mcg/actua tion [place] RxNorm: 572599 1 [place] NASAL BID No Start Date 04/10/2014 Inactive Medication Administered Medication Codes Instruc tions Start Date Status Kenalog 40 mg/mL suspension for injection RxNorm: 9121666 2Milliliter 03/21/2017 N o longer Active Kenalog 40 mg/mL suspension for injection RxNorm: 1010294 1Milliliter 04/04/2016 N o longer Active Kenalog 40 mg/mL suspension for injection RxNorm: 0164426 Milliliter 06/12/2015 No longer Active Kenalog 40 mg/mL suspension for injection RxNorm: 8910199 Milliliter 05/15/2015 No longer Active Kenalog 40 mg/mL suspension for injection RxNorm: 9195523 Milliliter 02/02/2014 No longer Active Kenalog 40 mg/mL Susp for Injection RxNorm: 1429689 1Milliliter 06/30/2013 N o longer Active Influenza Virus Vaccine 0.5 mL RxNorm: 08/04/2012 No longer Active Rocephin 500 mg Solution for Injection RxNorm: 548848 1Milliliter 01/23/2012 N o longer Active Kenalog 40 mg/mL Susp for Injection RxNorm: 7836066 1Milliliter 01/23/2012 N o longer Active Immunizations [...] abnormal findings ICD-10: Z00.01 ICD-9: V70.0 01/22/2017 Essential (primary) hypertension ICD -10: I10 ICD-9: 401.9 01/14/2017 Other specified epidermal thickening ICD-10: L85.8 ICD-9: [...] Ord2 RDW 14.8 % 06/05/2015 Comp Metabolic Yae947 NA 138 mEq/L 06/05/2015 Comp Metabolic Zsm264 K 4.3 mEq/L 06/05/2015 Comp Metabolic Ctt930 CL 100 mEq/L 06/05/2015 Comp Metabolic Thh274 CO2 29.0 mEq/L 06/05/2015 Comp Metabolic Mql705 AN ION GAP 13 06/05/2015 Comp Metabolic Lpt936 GL UCOSE 85 mg/dL 06/05/2015 Comp Metabolic Mwa927 Cr eat 0.7 mg/dL 06/05/2015 Comp Metabolic Cfp974 eG FR 94 ml/min/1.73m2 06/05 Comp Metabolic Kyy588 BUN 16 mg/dL 06/05/2015 Comp Metabolic Beq218 B/ C Ratio 24.2 Ratio 06/05/2015 Comp Metabolic Vvx211 CA LCIUM 9.5 mg/dL 06/05/2015 Comp Metabolic Mpn439 AL K PHOS 69 U/L 06/05/2015 Comp Metabolic Csl836 T(SGOT) 22 U/L 06/05/2015 Comp Metabolic Xel328 AL T(SGPT) 26 U/L 06/05/2015 Comp Metabolic Wjo351 BI LI T 0.5 mg/dL 06/05/2015 Comp Metabolic Ora901 AL BUMIN 4.2 g/dL 06/05/2015 Comp Metabolic Ayb049 TP RO 6.1 g/dL 06/05/2015 Comp Metabolic Uak726 GL OB 1.9 g/dL 06/05/2015 Comp Metabolic Kwj125 A/ G Ratio 2.2 Ratio 06/05/2015 Comp Metabolic Agc058 Os mo 276 mOsmo 06/05/2015 Tsh Ord6 hTSH II 1.99 uIU/mL 06/05/2015 Lipid Ord30 CHOL 171 mg/dL 06/05/2015 Lipid Ord30 HDL 55.0 mg/dl 06/05/2015 Lipid Ord30 TRIG 178 mg/dL 06/05/2015 Lipid Ord30 LDL 80 mg/dL 06/05/2015 Lipid Ord30 C/HDL 3.1 Ratio 06/05/2015 %Hba1C Gdm051 % HbA1c 61242-7 5.7 % 06/05/2015 %Hba1C Pjk859 Gluc Ave 117 mg/dL 06/05/2015 A1C HPLC 2416768 A1C HPLC 36172-0 5.6 % 07/15/2014 GFR CALC 1290180 GFR AA >60 ML/MIN 07/15/2014 GFR CALC 4206767 GFR NON -AA >60 ML/MIN 07/15/2014 CHEM 14 20280507 AST 21 U/L 07/15/2014 CHEM 14 20280507 ALT 23 IU/L 07/15/2014 CHEM 14 3649321 BUN 14 MG/DL 07/15/2014 CHEM 14 1141955 ALBUMIN 4.2 GM/DL 07/15/2014 CHEM 14 0401546 CHLORIDE 104 MMOL/L 07/15/2014 CHEM 14 1478332 BILI TOT 0.4 MG/DL 07/15/2014 CHEM 14 6501356 ALK PHOS 88 U/L 07/15/2014 CHEM 14 3274122 SODIUM 140 MMOL/L 07/15/2014 CHEM 14 7677203 CREATINI NE 0.63 MG/DL 07/15/2014 CHEM 14 1896686 CALCIUM 9.4 MG/DL 07/15/2014 CHEM 14 3474471 POTASSIUM 4.0 MMOL/L 07/15/2014 CHEM 14 7752231 PROT TOT 6.4 GM/DL 07/15/2014 CHEM 14 4595370 GLUCOSE 90 MG/DL 07/15/2014 CHEM 14 6626403 BICARB 30 MMOL/L 07/15/2014 CHEM 14 6363904 ANION GAP 6 MEQ/L 07/15/2014 A1C HPLC 9691932 A1C HPLC 34536-1 6.0 % 04/13/2014 TSH 8196331 TSH 1.875 uIU/ML 04/12/2014 CHEM 14 0727250 AST 17 U/L 04/12/2014 CHEM 14 8465151 ALT 20 IU/L 04/12/2014 CHEM 14 4569271 BUN 14 MG/DL 04/12/2014 CHEM 14 6966028 ALBUMIN 4.2 GM/DL 04/12/2014 CHEM 14 8863222 CHLORIDE 104 MMOL/L 04/12/2014 CHEM 14 9938297 BILI TOT 0.3 MG/DL 04/12/2014 CHEM 14 4334924 ALK PHOS 80 U/L 04/12/2014 CHEM 14 1726210 SODIUM 141 MMOL/L 04/12/2014 CHEM 14 8508291 CREATINI NE 0.62 MG/DL 04/12/2014 CHEM 14 7912836 CALCIUM 9.4 MG/DL 04/12/2014 CHEM 14 8550373 POTASSIUM 3.5 MMOL/L 04/12/2014 CHEM 14 8919500 PROT TOT 6.5 GM/DL 04/12/2014 CHEM 14 7082862 GLUCOSE 89 MG/DL 04/12/2014 CHEM 14 2544120 BICARB 29 MMOL/L 04/12/2014 CHEM 14 1809518 ANION GAP 8 MEQ/L 04/12/2014 LIPID GRP HDL TE ST 59 MG/DL 04/12/2014 LIPID GRP TRIG 177 MG/DL 04/12/2014 LIPID GRP TEST L DL 106 MG/DL 04/12/2014 LIPID GRP CHOL 200 MG/DL 04/12/2014 LIPID GRP RCHOL/ HDL 3.39 RATIO 04/12/2014 CBC 1138258 WBC 4.6 10e9/L 04/12/2014 CBC 7659140 RBC 4.52 10e12/L 04/12/2014 CBC 7603669 HGB 13.1 g/dL 04/12/2014 CBC 3257063 HCT DET 39.2 % 04/12/2014 CBC 8109497 MCV 86.7 fL 04/12/2014 CBC 2811623 MCH 29.0 pg 04/12/2014 CBC 6341713 MCHC 33.4 g/dL 04/12/2014 CBC 4609513 PLT 233 10e9/L 04/12/2014 CBC 9945012 MPV 9.8 fL 04/12/2014 CBC 9272246 AN % 59.5 % 04/12/2014 CBC 6593274 LY % 28.6 % 04/12/2014 CBC 2723534 MON % 10.0 % 04/12/2014 CBC 8250669 EOS % 1.5 % 04/12/2014 CBC 8950500 BASO % 0.4 % 04/12/2014 CBC 4272066 RDW 13.7 % 04/12/2014 CBC 4605967 ABS AN 2.74 10e9/L 04/12/2014 CBC 2451820 ABS LYMPH 1.32 10e9/L 04/12/2014 CBC 7509038 ABS MONO 0.46 10e9/L 04/12/2014 CBC 1977935 ABS EOS 0.07 10e9/L 04/12/2014 CBC 6135052 ABS BASO 0.02 10e9/L 04/12/2014 CBC 5680998 RDW-SD 42.6 fL 04/12/2014 GFR CALC 3042741 GFR AA >60 ML/MIN 04/12/2014 GFR CALC 9193183 GFR NON -AA >60 ML/MIN 04/12/2014 LIPID GRP HDL TE ST 57 MG/DL 08/24/2013 LIPID GRP TRIG 183 MG/DL 08/24/2013 LIPID GRP TEST L DL 64 MG/DL 08/24/2013 LIPID GRP CHOL 158 MG/DL 08/24/2013 LIPID GRP RCHOL/ HDL 2.77 RATIO 08/24/2013 GFR CALC 4389619 GFR AA >60 ML/MIN 08/24/2013 GFR CALC 6983685 GFR NON -AA >60 ML/MIN 08/24/2013 CHEM 14 4877115 AST 13 U/L 08/24/2013 CHEM 14 5278816 ALT 15 IU/L 08/24/2013 CHEM 14 0404259 BUN 14 MG/DL 08/24/2013 CHEM 14 8690770 ALBUMIN 4.3 GM/DL 08/24/2013 CHEM 14 8009074 CHLORIDE 106 MMOL/L 08/24/2013 CHEM 14 1158932 BILI TOT 0.3 MG/DL 08/24/2013 CHEM 14 2944946 ALK PHOS 75 U/L 08/24/2013 CHEM 14 4648488 SODIUM 141 MMOL/L 08/24/2013 CHEM 14 7986940 CREATINI NE 0.56 MG/DL 08/24/2013 CHEM 14 5766751 CALCIUM 9.1 MG/DL 08/24/2013 CHEM 14 4054845 POTASSIUM 4.2 MMOL/L 08/24/2013 CHEM 14 4780434 PROT TOT 6.0 GM/DL 08/24/2013 CHEM 14 7261543 GLUCOSE 83 MG/DL 08/24/2013 CHEM 14 0468583 BICARB 28 MMOL/L 08/24/2013 CHEM 14 8743325 ANION GAP 7 MEQ/L 08/24/2013 CBC 0452342 WBC 4.7 10e9/L 08/24/2013 CBC 7699543 RBC 4.33 10e12/L 08/24/2013 CBC 5371751 HGB 12.5 g/dL 08/24/2013 CBC 8864433 HCT DET 38.2 % 08/24/2013 CBC 1393439 MCV 88.2 fL 08/24/2013 CBC 4414897 MCH 28.9 pg 08/24/2013 CBC 7220091 MCHC 32.7 g/dL 08/24/2013 CBC 4422238 PLT 218 10e9/L 08/24/2013 CBC 0625250 MPV 10.4 fL 08/24/2013 CBC 1193959 AN % 61.9 % 08/24/2013 CBC 5512241 LY % 24.8 % 08/24/2013 CBC 3247515 MON % 10.3 % 08/24/2013 CBC 2601570 EOS % 2.1 % 08/24/2013 CBC 6436982 BASO % 0.9 % 08/24/2013 CBC 6221883 RDW 14.6 % 08/24/2013 CBC 5327455 ABS AN 2.91 10e9/L 08/24/2013 CBC 6001382 ABS LYMPH 1.17 10e9/L 08/24/2013 CBC 5581944 ABS MONO 0.48 10e9/L 08/24/2013 CBC 1546607 ABS EOS 0.10 10e9/L 08/24/2013 CBC 0420281 ABS BASO 0.04 10e9/L 08/24/2013 CBC 3180742 RDW-SD 46.7 fL 08/24/2013 TSH 7103206 TSH 1.208 uIU/ML 08/24/2013 Review of Systems [...] No alteration of consciousness 04/03/2016 Psychiatric anxiety 060 11/2015 Ears/Nose/Throat/Neck postnasal drip 04/03/2016 Neurologic No [...] Date TRIAMCINOLONE ACET I [place] NOS CPT-4: C6418Ejkuniu 03/21/2017 PPPS, SUBSEQ VISIT CPT-4: B3787Ltgrfua 01/22/2017 ADMIN PNEUMOCOCCAL V ACCINE SNOMED CT: 41741249 CPT-4: R0256Oqwirve 09/16/2016 Pneumococcal Polysac charide Vaccine, 23-Valent, Ad CPT-4: 42300Wyeelgm 09/16/2016 THER/PROPH/DIAG INJ SC/IM CPT-4: 12315Mivmckt 04/04/2016 TRIAMCINOLONE ACET I [place] NOS CPT-4: R2200Aqzywwx 04/04/2016 ADMIN INFLUENZA VIRU S VAC CPT-4: H3356Jzxnqar 07/28/2015 FLU VACC 4 XIMENA 3 YRS PLUS IM Formatting Model/CDA Sections, Assigned to/Jen Cota SNOMED CT: 67565237 CPT-4: 34702Qpinhvu 07/28/2015 TRIAMCINOLONE ACET I [place] NOS CPT-4: M6536Uniybpy 06/12/2015 TRIAMCINOLONE ACET I [place] NOS CPT-4: O2030Vkddhnx 05/15/2015 ADMIN INFLUENZA VIRU S VAC CPT-4: K8734Fwvierv 07/19/2014 FLU VAC NO PRSV 4 VA L 3 YRS+ Assigned to/Jen Cota CPT-4: 40106Brzqfav 07/19/2014 TRIAMCINOLONE ACET I [place] NOS CPT-4: M9859Fjkklql 02/02/2014 ROUTINE VENIPUNCTURE CPT-4: 34484Pkcybqk 08/24/2013 ADMIN INFLUENZA VIRU S VAC CPT-4: D8099Huxfzbn 07/26/2013 FLULAVAL VACC, 3 YRS & >, IM CPT-4: H0656Gpamjve 07/26/2013 TRIAMCINOLONE ACET I [place] NOS CPT-4: U1914Revguwp 06/30/2013 PRESCRIP TRANSMIT A ERX SY CPT-4: S0499Yiosmcx 06/30/2013 PRESCRIP TRANSMIT A ERX SY CPT-4: R0676Qlxflmn 12/01/2012 PRESCRIP TRANSMIT A ERX SY CPT-4: G5538Xshwxfq 10/19/2012 PRESCRIP TRANSMIT A ERX SY CPT-4: Q3649Wbtwhqv 10/07/2012 PRESCRIP TRANSMIT A ERX SY CPT-4: G8107Hzcsvzk 2012 PRESCRIP TRANSMIT A ERX SY CPT-4: X7502Hzwkmvg 08/18/2012 ADMIN INFLUENZA VIRU S VAC CPT-4: C8664Jpxaxpf 08/04/2012 FLULAVAL VACC, 3 YRS & >, IM CPT-4: Y2122Dynhsng 08/04/2012 PRESCRIP TRANSMIT A ERX SY CPT-4: X6962Nxatzed 08/04/2012 PRESCRIP TRANSMIT A ERX SY CPT-4: Q9178Nprsndk 07/01/2012 ROCEPHIN, PER 250 MG CPT-4: J4020Vxbesgd 01/23/2012 TRIAMCINOLONE ACET I [place] NOS CPT-4: J9654Btjhxek 01/23/2012 THER/PROPH/DIAG INJ SC/IM CPT-4: 95435Ktlukjw 01/23/2012 REMOVE IMPACTED EAR WAX UNI CPT-4: 86907Ilrilbz 01/02/2012 ROUTINE VENIPUNCTURE CPT-4: 83515Dybweay 12/20/2011 Vital Signs Date Vital 03/21/2017 Blood Pressure 1: 152/88 Code: 8480-6 Heart Rate 1: 70 bpm Height: SpO2: 98% Weight: 03/19/2017 Blood Pressure 1: 132/64 Code: 8480-6 BMI: 33.0 Code: 99229-2 Heart Rate 1: 64 bpm Height: 5' SpO2: 96% Weight: 172 lbs 01/22/2017 Blood Pressure 1: 120/68 Code: 8480-6 BMI: 33.4 Code: 05246-2 Heart Rate 1: 68 bpm Height: 5' SpO2: 96% Weight: 174 lbs 01/14/2017 Blood Pressure 1: 138/80 Code: 8480-6 BMI: 33.4 Code: 46968-8 Heart Rate 1: 69 bpm Height: 5' SpO2: 98% Weight: 174 lbs 09/23/2016 Blood Pressure 1: 138/70 Code: 8480-6 BMI: 33.6 Code: 30497-2 Heart Rate 1: 68 bpm Height: 5' SpO2: 98% Temperature: 36.4 (C ) / 97.5 (F) Weight: 175 lbs 09/16/2016 Blood Pressure 1: 124/74 Code: 8480-6 BMI: 33.6 Code: 27403-7 Heart Rate 1: 64 bpm Height: 5' SpO2: 97% Weight: 175 lbs 06/25/2016 Weigh t: 174 lbs 06/17/2016 Blood Pressure 1: 128/80 Code: 8480-6 BMI: 34.0 Code: 89180-2 Heart Rate 1: 76 bpm Height: 5' SpO2: 95% Weight: 177 lbs 04/03/2016 Blood Pressure 1: 138/72 Code: 8480-6 BMI: 34.2 Code: 73969-1 Heart Rate 1: 63 bpm Height: 5' SpO2: 96% Weight: 178 lbs 03/13/2016 Blood Pressure 1: 128/72 Code: 8480-6 BMI: 35.3 Code: 44849-5 Heart Rate 1: 71 bpm Height: 5' SpO2: 97% Weight: 184 lbs 01/30/2016 Blood Pressure 1: 134/72 Code: 8480-6 BMI: 35.2 Code: 73770-1 Heart Rate 1: 71 bpm Height: 5' SpO2: 96% Weight: 183 lbs 12/21/2015 Blood Pressure 1: 148/90 Code: 8480-6 BMI: 34.6 Code: 92514-8 Heart Rate 1: 89 bpm Height: 5' SpO2: 96% Weight: 180 lbs 10/09/2015 Blood Pressure 1: 124/76 Code: 8480-6 BMI: 34.6 Code: 96347-9 Heart Rate 1: 88 bpm Height: 5' SpO2: 96% Weight: 180 lbs 06/12/2015 Blood Pressure 1: 148/74 Code: 8480-6 BMI: 33.4 Code: 90895-6 Heart Rate 1: 70 bpm Height: 5' SpO2: 96% Weight: 174 lbs 06/05/2015 Blood Pressure 1: 142/82 Code: 8480-6 BMI: 33.2 Code: 78110-5 Heart Rate 1: 72 bpm Height: 5' Weight: 173 lbs 05/15/2015 Blood Pressure 1: 118/80 Code: 8480-6 BMI: 33.6 Code: 09291-3 Heart Rate 1: 82 bpm Height: 5' Weight: 175 lbs 02/06/2015 Blood Pressure 1: 122/76 Code: 8480-6 BMI: 34.6 Code: 53890-3 Heart Rate 1: 58 bpm Height: 5' Weight: 180 lbs 01/10/2015 Blood Pressure 1: 158/90 Code: 8480-6 Blood Pressure 2: 152/90 Code: 8480-6 BMI: 34.6 Code: 91972-6 Heart Rate 1: 68 bpm Height: 5' Weight: 180 lbs 07/19/2014 Blood Pressure 1: 142/78 Code: 8480-6 BMI: 33.6 Code: 13782-0 Heart Rate 1: 56 bpm Height: 5' Weight: 175 lbs 06/17/2014 Blood Pressure 1: 128/86 Code: 8480-6 Heart Rate 1: 66 bpm SpO2: 98% Weight: 172 lbs 04/19/2014 Blood Pressure 1: 152/82 Code: 8480-6 BMI: 32.5 Code: 81233-4 Heart Rate 1: 60 bpm Height: 5' Weight: 169 lbs 04/11/2014 Blood Pressure 1: 120/80 Code: 8480-6 BMI: 33.4 Code: 47957-4 Heart Rate 1: 64 bpm Height: 5' Weight: 174 lbs 03/10/2014 Blood Pressure 1: 136/64 Code: 8480-6 BMI: 32.7 Code: 27553-4 Heart Rate 1: 76 bpm Height: 5' Weight: 170 lbs 02/02/2014 Blood Pressure 1: 160/76 Code: 8480-6 BMI: 32.7 Code: 67140-8 Heart Rate 1: 64 bpm Height: 5' Weight: 170 lbs 10/25/2013 Blood Pressure 1: 164/82 Code: 8480-6 BMI: 31.9 Code: 46921-5 Heart Rate 1: 60 bpm Height: 5' Weight: 166 lbs 08/24/2013 Blood Pressure 1: 138/88 Code: 8480-6 Heart Rate 1: 80 bpm Weight: 07/26/2013 Blood Pressure 1: 154/70 Code: 8480-6 Heart Rate 1: 72 bpm Weight: 162 lbs 06/30/2013 Blood Pressure 1: 182/86 Code: 8480-6 Heart Rate 1: 80 bpm Weight: 06/24/2013 Blood Pressure 1: 148/68 Code: 8480-6 BMI: 31.3 Code: 27379-1 Heart Rate 1: 72 bpm Height: 5' [...] 1: 142/88 Code: 8480-6 BMI: 30.6 Code: 60029-9 Heart Rate 1: 64 bpm Height: 5' [...] 1: 180/96 Code: 8480-6 BMI: 30.5 Code: 71558-8 Heart Rate 1: 76 bpm Height: 5' Respiratory Rate: 16 bpm Weight: 159 lbs 02/19/2012 Blood Pressure 1: 150/70 Code: 8480-6 Blood Pressure 2: 160/78 Code: 8480-6 Heart Rate 1: 76 bpm Respiratory Rate: 16 bpm Weight: 158 lbs 01/23/2012 Blood Pressure 1: 140/84 Code: 8480-6 BMI: 30.3 Code: 01105-0 Heart Rate 1: 68 bpm Height: 5' Respiratory Rate: 16 bpm SpO2: 98% Temperature: 37.0 (C ) / 98.6 (F) Weight: 158 lbs 01/02/2012 Blood Pressure 1: 142/92 Code: 8480-6 BMI: 30.7 Code: 06284-9 Heart Rate 1: 72 bpm Height: 5' Respiratory Rate: 16 bpm Weight: 160 lbs 12/20/2011 Blood Pressure 1: 170/84 Code: 8480-6 BMI: 30.0 Code: 95940-4 Heart Rate 1: 70 bpm Height: 5' [...] 06/12/2015 None rash Location-Head/Neck on the right caodaism 06/12/2015 None rash Location-Head/Neck on the right [...] Factors allergen exposure 02/02/2014 None hypertension [facility] 10/25/2013 None hypertension Onset and Resolution [...] Findings Denies tachycardia 08/24/2013 None hypertension [facility] 07/26/2013 None hypertension Onset and Resolution [...] Factors position change 06/30/2013 None hypertension [facility] 06/30/2013 None hypertension Onset and Resolution ongoing 06/30/2013 None hypertension Blood Pressure Values pt checking blood pressure - see scanned document 06/30/2013 149-178/82 hypertension [facility] 06/24/2013 patient states that her T [...] Encounters Encounter Performer Loca tion Codes Date ([id number]) 82813 EST. P ATIENT, LEVEL III Diagnosis: Allergic contact dermatitis due to plants, except food[ICD10: L23.7] Kacy Varela MD, [facility] CPT-4: 14809 03/21/2017 [id number] EST. PATIENT, LEVEL III Diagnosis: Bitten or stung by nonvenomous insect and other nonvenomous arthropods, initial encounter[ICD10: W57.XXXA] Diagnosis: Cellulitis of left lower limb[ICD10: L03.116] Laura Varela MD, [facility] CPT-4: 54245 03/19/2017 ([id number]) 37533 EST. P ATIENT, LEVEL IV Diagnosis: Type 2 diabetes mellitus without complications[ICD10: E11.9] Diagnosis: Essential (primary) hypertension[ICD10: I10] Diagnosis: Other specified epidermal thickening[ICD10: L85.8] Zoya Varela MD, [facility] CPT-4: 07555 01/14/2017 63802 EST. PATIENT, LEVEL III Diagnosis: Glossodynia[ICD10: K14.6] Kacy Varela MD, [facility] CPT- 4: 93764 09/23/2016 ([id number]) 15355 EST. P ATIENT, LEVEL IV Diagnosis: Encounter for screening mammogram for malignant neoplasm of breast[ICD10: Z12.31] Diagnosis: Encounter for immunization[ICD10: Z23] Zoya Varela MD, [facility] CPT-4: 31039 09/16/2016 ([id number]) 06788 EST. P ATIENT, LEVEL III Diagnosis: Diseases of lips[ICD10: K13.0] Diagnosis: Allergic rhinitis due to pollen[ICD10: J30.1] Kacy Varela MD, [facility] CPT-4: 13846 06/25/2016 ([id number]) 52274 EST. P ATIENT, LEVEL III Diagnosis: Essential (primary) hypertension[ICD10: I10] Kacy Varela MD, [facility] CPT-4: 13026 06/17/2016 58584 EST. PATIENT, LEVEL IV Diagnosis: Other acute sinusitis[ICD10: J01.80] Diagnosis: Acute laryngopharyngitis[ICD10: J06.0] Diagnosis: Other allergic rhinitis[ICD10: J30.89] Laura Varela MD, [facility] CPT-4: 56628 04/03/2016 ([id number]) 28655 EST. P ATIENT, LEVEL IV Diagnosis: Essential (primary) hypertension[ICD10: I10] Diagnosis: Localized edema[ICD10: R60.0] Diagnosis: Polyneuropathy, unspecified[ICD10: G62.9] Zoya Varela MD, [facility] CPT-4: 72299 03/13/2016 ([id number]) 51454 EST. P ATIENT, LEVEL IV Diagnosis: Essential (primary) hypertension[ICD10: I10] Diagnosis: Localized edema[ICD10: R60.0] Diagnosis: Type 2 diabetes mellitus without complications[ICD10: E11.9] Zoya Varela MD, [facility] CPT-4: 77413 01/30/2016 19704 EST. PATIENT, LEVEL IV Diagnosis: Localized edema[ICD10: R60.0] Laura Varela MD, [facility] CPT-4: 72957 12/21/2015 ([id number]) 28280 EST. P ATIENT, LEVEL III Diagnosis: Essential (primary) hypertension[ICD10: I10] Diagnosis: Allergic rhinitis due to pollen[ICD10: J30.1] Diagnosis: Cervicalgia[ICD10: M54.2] Kacy Varela MD, [facility] CPT- 4: 75161 10/09/2015 00097 EST. PATIENT, LEVEL II Diagnosis: Contact dermatitis[ICD9: 692.9] Kacy Varela MD, [facility] CPT- 4: 42983 06/12/2015 ([id number]) 54725 EST. P ATIENT, LEVEL III Diagnosis: ESSENTIAL HYPERTENSION[ICD9: 401.9] Diagnosis: DIABETES TYPE II[ICD9: 250.00] Diagnosis: Anxiety[ICD9: 300.00] Kacy Varela MD, [facility] CPT-4: 69076 06/05/2015 ([id number]) 37770 EST. P ATIENT, LEVEL IV Diagnosis: Anxiety[ICD9: 300.00] Diagnosis: ALLERGIC RHINITIS[ICD9: 477.9] Diagnosis: ESOPHAGEAL REFLUX[ICD9: 530.81] Kacy Varela MD, [facility] CPT- 4: 30418 05/15/2015 ([id number]) 83788 EST. P ATIENT, LEVEL III Diagnosis: ESSENTIAL HYPERTENSION[ICD9: 401.9] Zoya Varela MD, [facility] CPT- 4: 77683 02/06/2015 ([id number]) 76292 EST. P ATIENT, LEVEL IV Diagnosis: ESSENTIAL HYPERTENSION[ICD9: 401.9] Diagnosis: EDEMA[ICD9: 782.3] Diagnosis: DIABETES TYPE II[ICD9: 250.00] Zoya Varela MD, [facility] CPT-4: 70990 01/10/2015 ([id number]) 01219 EST. P ATIENT, LEVEL IV Diagnosis: ESSENTIAL HYPERTENSION[ICD9: 401.9] Diagnosis: DIABETES TYPE II[ICD9: 250.00] Zoya Varela MD, [facility] CPT-4: 84954 07/19/2014 ([id number]) 99307 EST. P ATIENT, LEVEL III Diagnosis: Left ankle pain[ICD9: 719.47] Kacy Varela MD, [facility] CPT- 4: 23549 06/17/2014 ([id number]) 04244 EST. P ATIENT, LEVEL III Diagnosis: ESSENTIAL HYPERTENSION[ICD9: 401.9] Diagnosis: Elevated blood sugar[ICD9: 790.29] Zoya Varela MD, [facility] CPT- 4: 17030 04/19/2014 ([id number]) 05011 EST. P ATIENT, LEVEL IV Diagnosis: ESSENTIAL HYPERTENSION[SNOMED: 26186158] Diagnosis: ESOPHAGEAL REFLUX[ICD9: 530.81] Zoya Varela MD, [facility] CPT-4: 24067 04/11/2014 ([id number]) 81251 EST. P ATIENT, LEVEL IV Diagnosis: ALLERGIC RHINITIS[ICD9: 477.9] Diagnosis: Anxiety[ICD9: 300.00] Diagnosis: Dyspnea[ICD9: 786.09] Diagnosis: ESOPHAGEAL REFLUX[ICD9: 530.81] Kacy Varela MD, [facility] CPT- 4: 42982 03/10/2014 ([id number]) 38233 EST. P ATIENT, LEVEL III Diagnosis: ALLERGIC RHINITIS[ICD9: 477.9] Diagnosis: ESSENTIAL HYPERTENSION[SNOMED: 79977659] Kacy Varela MD, [facility] CPT-4: 56485 02/02/2014 ([id number]) 05674 EST. P ATIENT, LEVEL III Diagnosis: ESSENTIAL HYPERTENSION[SNOMED: 78318683] Diagnosis: Skin irritation[ICD9: 709.9] Zoya Varela MD, [facility] CPT-4: 04807 10/25/2013 ([id number]) 96268 EST. P ATIENT, LEVEL III Diagnosis: HYPERLIPIDEMIA[ICD9: 272.4] Diagnosis: ESSENTIAL HYPERTENSION[SNOMED: 84129765] Diagnosis: EDEMA[ICD9: 782.3] Diagnosis: Encounter for long-term (current) use of other medications[ICD9: V58.69] Zoya Varela MD, [facility] CPT-4: 15946 08/24/2013 ([id number]) 33936 EST. P ATIENT, LEVEL III Diagnosis: ESSENTIAL HYPERTENSION[SNOMED: 34564543] Zoya Varela MD, [facility] CPT-4: 48569 07/26/2013 ([id number]) 10069 EST. P ATIENT, LEVEL III Diagnosis: ESSENTIAL HYPERTENSION[SNOMED: 08066904] Zoya Varela MD, [facility] CPT-4: 19123 06/30/2013 ([id number]) 65556 EST. P ATIENT, LEVEL III Diagnosis: ESSENTIAL HYPERTENSION[SNOMED: 05711175] Zoya Varela MD, [facility] CPT-4: 05913 06/24/2013 ([id number]) 43038 EST. P ATIENT, LEVEL IV Diagnosis: ESSENTIAL HYPERTENSION[SNOMED: 36081359] Diagnosis: Leg pain[ICD9: 729.5] Diagnosis: Leg swelling[ICD9: 729.81] Zoya Varela MD, [facility] CPT-4: 85208 12/01/2012 ([id number]) 66310 EST. P ATIENT, LEVEL III Diagnosis: Shingles[ICD9: 053.9] Zoya Varela MD, [facility] CPT-4: 02768 10/19/2012 ([id number]) 88630 EST. P ATIENT, LEVEL IV Diagnosis: EDEMA[ICD9: 782.3] Diagnosis: ESSENTIAL HYPERTENSION[SNOMED: 39852647] Zoya Varela MD, [facility] CPT-4: 94817 10/07/2012 ([id number]) 61919 EST. P ATIENT, LEVEL IV Diagnosis: ESSENTIAL HYPERTENSION[SNOMED: 83973061] Diagnosis: EDEMA[ICD9: 782.3] Diagnosis: Irritable bowel disease[ICD9: 564.1] Zoya Varela MD, [facility] CPT-4: 92535 2012 ([id number]) 93517 EST. P ATIENT, LEVEL III Diagnosis: ESSENTIAL HYPERTENSION[SNOMED: 83748678] Zoya Varela MD, C CPT-4: 34348 08/18/2012 ([id number]) 22372 EST. P ATIENT, LEVEL III Diagnosis: ESSENTIAL HYPERTENSION[SNOMED: 48891951] Zoya Varela MD, C CPT-4: 68149 08/04/2012 ([id number]) 97837 EST. P ATIENT, LEVEL IV Diagnosis: ESSENTIAL HYPERTENSION[SNOMED: 18093289] Diagnosis: Lumbago[ICD9: 724.2] Diagnosis: HYPERLIPIDEMIA[ICD9: 272.4] Zoya Varela MD, [facility] CPT-4: 79536 07/01/2012 ([id number]) 45900 EST. P ATIENT, LEVEL III Diagnosis: ESSENTIAL HYPERTENSION[SNOMED: 18799589] Zoya Varela MD, C CPT-4: 37874 05/20/2012 ([id number]) 13017 EST. P ATIENT, LEVEL IV Diagnosis: ESSENTIAL HYPERTENSION[SNOMED: 86755714] Diagnosis: Hot flash, menopausal[ICD9: 627.2] Zoya Varela MD, [facility] CPT- 4: 57647 04/20/2012 72380 EST. PATIENT, LEVEL IV Diagnosis: SPASM OF MUSCLE[ICD9: 728.85] Diagnosis: Back pain[ICD9: 724.5] Diagnosis: ESSENTIAL HYPERTENSION[SNOMED: 33214203] Zoya Varela MD, C CPT-4: 10420 03/10/2012 ([id number]) 22167 EST. P ATIENT, LEVEL IV Diagnosis: COUGH[ICD9: 786.2] Diagnosis: Allergic rhinitis[ICD9: 477.9] Diagnosis: Malignant reactive hypertension[ICD9: 401.0] Zoya Varela MD, C CPT-4: 44737 02/25/2012 ([id number]) 14304 EST. P ATIENT, LEVEL III Diagnosis: ESSENTIAL HYPERTENSION[SNOMED: 55839633] Zoya Varela MD, C CPT-4: 10075 02/19/2012 17841 EST. PATIENT, LEVEL IV Diagnosis: ESSENTIAL HYPERTENSION[SNOMED: 46147435] Diagnosis: Cough[ICD9: 786.2] Kacy Varela MD, [facility] CPT-4: 21790 01/23/2012 ([id number]) 28938 EST. P ATIENT, LEVEL IV Diagnosis: HYPERLIPIDEMIA[ICD9: 272.4] Diagnosis: ESSENTIAL HYPERTENSION[SNOMED: 87928364] Zoya Varela MD, C CPT-4: 10009 01/02/2012 OFFICE VISIT, NEW - LEVEL 4 Diagnosis: ESSENTIAL HYPERTENSION[SNOMED: 61327653] Diagnosis: HYPERLIPIDEMIA[ICD9: 272.4] Diagnosis: IMPACTED CERUMEN[ICD9: 380.4] Diagnosis: Muscle spasm[ICD9: 728.85] Diagnosis: CHRONIC TENSION HEADACHE[ICD9: 339.12] Diagnosis: Neck pain, chronic[ICD9: 723.1] Diagnosis: Change in skin mole[ICD9: 216.9] Zoya Varela MD, [facility] CPT-4: 66100 12/20/2011 Plan of Care Planned Activity Notes C odes Status Date Visit Plan: Poison Sarah -kenalog injectio n today in the office-start prednisone tomorrow pt is to use topical treatments as directed. Pt is cleanse clothing in hot water with soap, and call if symptoms do not improve or if they worsen. 03/21/2017 Appointment: Kacy Moses WPtel: [address] [place], [place] [phone] (15 min) Moderate 03/21/2017 Patient Education: Patient [...] in pain. 03/19/2017 Appointment: Laura Velasco WPtel: [address] [place] [address] (15 min) Moderate 03/19/2017 Patient Education: Patient [...] in hearing. 01/22/2017 Appointment: Laura Velasco WPtel: [address] [place] [address] - Annual Wellness Visit 01/22/2017 Appointment: Nurse [...] at home. 01/14/2017 Appointment: [phone] [id number] (15 min) Moderate 01/14/2017 Patient Education: Patient [...] plan. 09/23/2016 [phone] [phone] [place] (15 min) Moderate 09/23/2016 Patient Education: [...] medications. 09/16/2016 Appointment: [facility]arela [facility] [phone] [id number] (15 min) Moderate 09/16/2016 Patient Education: Patient Medication Summary Completed 09/16/2016 Patient Education: Obesity Completed 09/16/2016 Care Plan: SCREENINGMAMMOGRAPHYDIGITAL LOINC : 31100-4 Pending 09/16/2016 Visit Plan: Cracked/painful lips-bacteri al [...] any worse. 06/25/2016 Appointment: Kacy Moses WPtel: [facility]5 [phone] (15 min) Moderate 06/25/2016 Patient Education: [...] allergy spray. 04/03/2016 Appointment: Kacy Moses WPtel[phone] (30 min) Complex 04/03/2016 Patient Education: [...] Hypertension Completed 03/13/2016 Appointment: Zoya Varela WPtel: [id number] (15 min) Moderate 02/28/2016 Appointment: Zoya Varela WPtel: [id number] (15 min) Moderate 02/01/2016 Visit Plan: Hypertension [...] for treatment. 01/30/2016 Appointment: Zoya Varela WPtel: [address] [place], [place] [id number] (15 min) Moderate 01/30/2016 Patient Education: Patient [...] at home. 02/06/2015 Appointment: Zoya Varela WPtel: [phone] [facility] Follow up 02/06/2015 Patient Education: Patient Medication [...] peripheral edema. 01/10/2015 Appointment: Zoya Varela WPtel: [phone] [facility] Sick 01/10/2015 Patient Education: Patient Medication [...] less controlled. 07/19/2014 Appointment: Zoya Varela WPtel: [phone] Follow up 07/19/2014 Patient Education: Patient Medication Summary Completed 07/19/2014 Patient Education: Hypertension Completed 07/19/2014 Care Plan: SCREENINGMAMMOGRAPHYDIGITAL LOINC : 89273-4 Ordered 07/19/2014 Visit Plan: Left ankle umad-lutzch-ewrkw mend rest ice and anti inflammatories as [...] at home. 04/19/2014 Appointment: [facility]el[phone] Diabetic education 04/19/2014 Patient Education: Patient [...] to medications. 04/11/2014 Appointment: Zoya Varela WPtel: [address] [place], [place] [phone] Follow up 04/11/2014 Patient Education: Patient Medication [...] to spray in the nasal steroid allergy spray.Igecfqc-verhglwbkjzb-bfwunep xanax at bedtime Esophageal Reflux - the patient has been counseled against excessive intake of caffiene, spicy foods, peppermint, and cinnamon - all of which can exacerbate esophageal reflux.The patient is to take medications as prescribed and call the office if the symptoms are not improving. 03/10/2014 Appointment: Zoya Varela WPtel: [facility]7 [facility] Other 03/10/2014 Patient Education: Patient Medication Summary [...] spray. 2013 Appointment: [facility]el[phone] [place] [address] Other 02/02/2014 Patient Education: Patient Medication Summary [...] site. 10/25/2013 Appointment: Zoya Varela WPtel: [id number] Follow up 10/25/2013 Patient Education: Patient Medication [...] BEDTIME 08/24/2013 Appointment: Zoya Varela WPtel: [phone] [facility] Follow up 08/24/2013 Patient Education: Patient [...] concerns. 07/26/2013 Appointment: Zoya Varela WPtel: [id number] Follow up 07/26/2013 Patient Education: Patient Medication [...] NOT IMPROVE. 06/30/2013 Appointment: Zoya Varela WPtel: [address] [place], [place] [phone] Other 06/30/2013 Patient Education: Patient Medication Summary [...] acute concerns. 06/24/2013 Appointment: Kacy Moses WPtel: [address] [place], [place] [phone] Follow up 06/24/2013 Patient Education: Patient Medication Summary Completed 06/24/2013 Patient Education: Hypertension Completed 06/24/2013 Appointment: Zoya Varela WPtel: [address] [place], [place] [phone] Other 03/23/2013 Visit Plan: Hypotension - pt is on chron ic antihypertensive medication - the medication has been adjusted down to attempt to alleviate the low blood pressures.Leg pain - Leg swelling - pt to have ultrasound on her right lower leg due to post-operative swelling and pain. 12/01/2012 Appointment: Zoya Varela WPtel: [address] [place], [place] [phone] [place] Follow up 12/01/2012 Patient Education: Patient Medication Summary Completed 12/01/2012 Patient Education: Hypertension Completed 12/01/2012 Appointment: Zoya Varela WPtel: [address] [place], [place] [phone] [place] Follow up 10/20/2012 Visit Plan: Shingles [...] considered contagious. 10/19/2012 Appointment: Zoya Varela WPtel: [facility] Other 10/19/2012 Patient Education: Patient Medication [...] peripheral edema. 10/07/2012 Appointment: Kacy Moses WPtel: [facility] Other 10/07/2012 Patient Education: Hypertension Completed 10/07/2012 Patient Education: Patient Medication Summary Completed 10/07/2012 Visit Plan: Hypertension - well control ed [...] peripheral edema. 2012 Appointment: Zoya Varela WPtel: [facility]1 [facility] Other 2012 Patient Education: Patient Medication Summary [...] EVENING. 08/18/2012 Appointment: Zoya Varela WPtel: [id number] Follow up 08/18/2012 Patient Education: Patient Medication [...] knees. 08/04/2012 Appointment: Zoya Varela WPtel: [id number] Follow up 08/04/2012 Patient Education: Patient Medication [...] call for acute concerns.CUT THE AMLODIPINE IN 1/2 AND TAKE ONE HALF OF THE AMLODIPINE AT BEDTIME AND ONEHALF OF THE AMLODIPINE IN THE MORNING.Back pain/ nerve pain- recommended pt to start on gabapentin 100 mg at night x 1 week, then increase to twice daily. 07/01/2012 Appointment: Zoya Varela WPtel: [phone] [facility] Other 07/01/2012 Patient Education: Patient Medication Summary [...] readings in two weeks 05/20/2012 Appointment: Zoya Vaerla WPtel: [facility]6 [facility] Follow up 05/20/2012 Patient Education: Patient Medication Summary Completed 05/20/2012 Patient Education: High Blood Pressure: Essential Hypertension Completed 05/20/2012 Appointment: Zoya Varela WPtel: [facility]1 [facility] [place] Other 05/11/2012 Visit Plan: Hypertension - [...] dosing. 04/20/2012 Appointment: Zoya Varela WPtel: [phone] [facility] [place] Follow up 04/20/2012 Patient Education: Patient [...] few weeks. 03/10/2012 Appointment: Zoya Varela WPtel: [phone] Other 03/10/2012 Patient Education: Patient Medication [...] with codeine. 02/25/2012 Appointment: Zoya Varela WPtel: [facility] Other 02/25/2012 Patient Education: Patient Medication Summary [...] office. 02/19/2012 Appointment: Zoya Varela WPtel: [phone] [facility] Other 02/19/2012 Patient Education: Patient Medication Summary [...] office 01/23/2012 Appointment: [facility]Ptel: [phone] Other 01/23/2012 Patient Education: Patient Medication Summary [...] TWICE DAILY. 01/02/2012 Appointment: Zoya Varela WPtel: [address] [place] [id number] [facility] 01/02/2012 Patient Education: Patient Medication Summary Completed [...] 2 wks. 12/20/2011 Appointment: Zoya Varela WPtel: [address] [place] [id number] New Patient 12/20/2011 Patient Education: Patient Medication [...] spray in the nasal steroid allergy spray. Ehwoscf-rinoqbybanpn-vwxawvy xanax at bedtime Esophageal Reflux - the [...]
[2020-05-26 03:04] LABS: TOTAL PROTEIN 6.6 GM/DL (6.4-8.2)
[2020-05-26 03:06] LABS: BILIRUBIN,TOTAL 0.3 MG/DL (0.1-1.0)
--- OUTSIDE RECORDS SUMMARY | 2020-05-26 03:06 | XMS REPORT | CCD ---
Author Author Natali Varela Organization [facility] Address [address] [place] [address] Phone Care Team Providers Care Filter Tender Jelly Name Role Phone PP Unavailable CCM Unavailable Summary Purpose Interface Exchange Insurance Providers Payer name Policy type / Coverage type Covered democrat ID Effective Begin Date Effective End Date WPS Medicare Part B Medicare Part B [id number] Unknown [email or web address] Medicare Part B [id number] Unknown Family history Mother Diagnosis Age At Onset Liver Failure Unknown Diabetes mellitus Type 2 Unknown Hyperlipidemia Unknown Hypertension Unknown Cancer Unknown Arthritis Unknown Father Diagnosis Age At Onset Liver Failure Unknown Cancer Unknown Social History Social History Element Codes Description Effective Dates Marital status Unknown M arried 12/12/2011 Number of children Unknown 3 12/12/[address]: 8871216 Former smoker quit in 199212/12/2011 Allergies, Adverse [...] Instructions cyclobenzaprine 10 m g tablet RxNorm: 676235 TAKE ONE TABLET BY MO [facility] EVERY 8 HOURS NEEDED 04/07/2017 04/26/2017 Active Xanax 0.25 mg tablet RxNorm: 715516 1/2-1 Tablet(s) PO QDAY PRN 04/04/2017 06/02/2017 Active metoprolol tartrate 100 mg tablet RxNorm: 173263 TAKE ONE AND ONE-HALF (1 & 1/2) TABLET BY MOUTH EVERY MORNING AND TAKE TWO TABLETS BY MOUTH EVERY EVENING 03/28/2017 07/25/2017 Ac tive prednisone 10 mg tab lets in a dose pack RxNorm: 761622 1 Tablet(s) PO UD 03/21/2017 03/26/2017 In active 6-5-4-3-2-1 Kenalog 40 mg/mL sylvia pension for injection RxNorm: 9783325 2 Milliliter(s) Inj 03/21/2017 03/21/2017 In active doxycycline hyclate 100 mg capsule RxNorm: 7912898 1 Capsule(s) PO BID 03/19/2017 03/28/2017 In active cyclobenzaprine 10 m g tablet RxNorm: 340096 TAKE ONE TABLET BY MO [facility] EVERY 8 HOURS NEEDED 02/25/2017 03/16/2017 Inactive triamcinolone aceton pineda 0.1 % topical ointment RxNorm: 1369672 1 Application TOP TI D 02/21/2017 02/20/2017 Inactive triamcinolone aceton pineda 0.1 % topical ointment RxNorm: 6238959 1 Application TOP TI D 02/21/2017 03/02/2017 Inactive doxazosin 4 mg tablet RxNorm: 273962 TAKE ONE AND ONE-HALF (1 & 1/2) TABLET B Y MOUTH BY MOUTH TWO TIMES A DAY 02/14/2017 01/09/2018 Active cyclobenzaprine 10 m g tablet RxNorm: 168903 TAKE ONE TABLET BY MO [facility] EVERY 8 HOURS NEEDED 01/27/2017 02/15/2017 Inactive ammonium lactate 12 % topical cream RxNorm: 712108 1 Application TOP BID 01/14/2017 02/12/2017 In active dispense one bottle of the cream potassium chloride E R 10 mEq tablet,extended release RxNorm: 085290 1 Tablet(s) PO PRN as needed with lasix 11/13/2016 No Stop Date Active prn swelling furosemide 20 mg tablet RxNorm: 062277 1 Tablet(s) PO daily as needed edema 11/13/2016 01/11/2017 In active metoprolol tartrate 100 mg tablet RxNorm: 711361 TAKE ONE AND ONE-HALF (1 & 1/2) TABLET BY MOUTH EVERY MORNING AND TAKE TWO TABLETS BY MOUTH EVERY EVENING 11/01/2016 03/27/2017 In active atorvastatin 20 mg t ablet RxNorm: 635175 TAKE ONE TABLET BY MO U[facility] DAILY 10/31/2016 04/28/2017 Ac tive cyclobenzaprine 10 m g tablet RxNorm: 694517 TAKE ONE TABLET BY MO U[facility] EVERY 8 HOURS NEEDED 10/25/2016 12/03/2016 Inactive Lyrica 25 mg capsule RxNorm: 088876 1 Tablet(s) PO BID 09/23/2016 01/13/2017 Inactive Lyrica 50 mg capsule RxNorm: 289608 1 Capsule(s) PO BID 09/16/2016 01/13/2017 Inactive amlodipine 5 mg tablet RxNorm: 631109 Tablet(s) TAKE ONE TABLET BY MOUTH DAILY 08/28/2016 07/23/2017 Ac tive cyclobenzaprine 10 m g tablet RxNorm: 027219 TAKE ONE TABLET BY MO U[facility] EVERY 8 HOURS NEEDED 08/05/2016 09/13/2016 Inactive Xanax 0.25 mg tablet RxNorm: 843163 1/2-1 Tablet(s) PO QDAY PRN 07/16/2016 04/03/2017 Inactive amlodipine 5 mg tablet RxNorm: 292052 TAKE ONE TABLET BY MOUTH DAILY 06/28/2016 08/26/2016 In active metoprolol tartrate 100 mg tablet RxNorm: 572024 Tablet(s) TAKE ONE AN D ONE-HALF (1 & 1/2) TABLET BY MOUTH EVERY MORNING AND TAKE TWO TABLETS BY MOUTH EVERY EVENING 05/02/2016 05/02/2016 Inactive metoprolol tartrate 100 mg tablet RxNorm: 177799 Tablet(s) PO TAKE ONE AND ONE-HALF (1 & 1/2) TABLET BY MOUTH EVERY MORNING AND TAKE TWO TABLETS BY MOUTH EVERY EVENING 05/02/2016 05/01/2016 Inactive metoprolol tartrate 100 mg tablet RxNorm: 479809 Tablet(s) PO TAKE ONE AND ONE-HALF (1 & 1/2) TABLET BY MOUTH EVERY MORNING AND TAKE TWO TABLETS BY MOUTH EVERY EVENING 05/02/2016 10/28/2016 Inactive atorvastatin 20 mg t ablet RxNorm: 716389 TAKE ONE TABLET BY MO U[facility] DAILY 04/25/2016 10/21/2016 In active tramadol 50 mg tablet RxNorm: 199981 1-2 Tablet(s) PO Q8 as needed 04/25/2016 04/06/2017 In active cyclobenzaprine 10 m g tablet RxNorm: 207889 Tablet(s) PO TAKE ONE TABLET BY MOUTH EVERY 8 HOURS NEEDED 04/18/2016 06/16/2016 Inactive Kenalog 40 mg/mL sylvia pension for injection RxNorm: 4948579 1 Milliliter(s) Inj 04/04/2016 04/04/2016 In active Phenergan with Codei ne Syrup RxNorm: PO 04/03/2016 No Stop Date Active Zithromax Z-Kush 250 mg tablet RxNorm: 507013 1 Tablet(s) PO UD 04/03/2016 04/07/2016 Inactive 2 tabs on day 1 then 1 tab daily on days 2-5 amlodipine 5 mg tablet RxNorm: 561879 TAKE ONE TABLET BY MOUTH DAILY 03/27/2016 06/24/2016 In active Flexeril 10 mg tablet RxNorm: 722962 TAKE ONE TABLET BY MOUTH EVERY 8 HOURS A S NEEDED 03/14/2016 04/02/2016 Inactive Vitamin B-12 ER 2,00 0 mcg tablet,extended release RxNorm: 775771 1 Tablet(s) PO daily 03/13/2016 No Stop Date Active Vitamin B-12 ER 2,00 0 mcg tablet,extended release RxNorm: 517788 1 Tablet(s) PO daily 03/13/2016 No Stop Date Active gabapentin 100 mg ca psule RxNorm: 033573 1 Capsule(s) PO BID 03/13/2016 09/15/2016 Inactive Flexeril 10 mg tablet RxNorm: 020926 Tablet(s) TAKE ONE TABLET BY MOUTH EVERY 8 HOURS NEEDED 02/08/2016 02/27/2016 Inactive Xanax 0.25 mg tablet RxNorm: 680731 1/2-1 Tablet(s) PO QDAY PRN 02/08/2016 07/15/2016 Inactive amlodipine 5 mg tablet RxNorm: 370426 1 Tablet(s) PO daily 02/06/2016 03/26/2016 Inactive furosemide 20 mg tablet RxNorm: 100176 1 Tablet(s) PO daily 01/30/2016 06/16/2016 Inactive amlodipine 10 mg tablet RxNorm: 516834 1/2 Tablet(s) PO daily 01/30/2016 02/05/2016 Inactive doxazosin 4 mg tablet RxNorm: 856463 1.5 Tablet(s) PO BID 01/30/2016 01/23/2017 Inactive Flexeril 10 mg tablet RxNorm: 589713 TAKE ONE TABLET BY MOUTH EVERY 8 HOURS A S NEEDED 01/10/2016 01/29/2016 Inactive potassium chloride E R 10 mEq tablet,extended release RxNorm: 141161 1 Tablet(s) PO PRN as needed with lasix 12/25/2015 06/16/2016 Inactive prn swelling amlodipine 10 mg tablet RxNorm: 476071 TAKE ONE TABLET BY MOUTH EVERY MORNING 12/25/2015 12/24/2015 In active amlodipine 10 mg tablet RxNorm: 654974 TAKE ONE TABLET BY MOUTH EVERY MORNING 12/25/2015 01/29/2016 In active furosemide 20 mg tablet RxNorm: 882714 1/2 Tablet(s) PO daily as needed edema 12/21/2015 01/19/2016 In active pt needs to take 10meq potassium on days she takes the lasix metoprolol tartrate 100 mg tablet RxNorm: 917255 TAKE ONE AND ONE-HALF (1 & 1/2) TABLET BY MOUTH EVERY MORNING AND TAKE TWO TABLETS BY MOUTH EVERY EVENING 11/08/2015 12/07/2015 In active Flonase Allergy Reli ef 50 mcg/actuation nasal spray,suspension RxNorm: [place] as needed PLACE 2 SPRAYS IN EACH NOSTRIL DAILY 10/09/2015 02/05/2016 Inactive Flexeril 10 mg tablet RxNorm: 391509 1 Tablet(s) PO TID PRN TAKE ONE TABLET B Y MOUTH EVERY 8 HOURS NEEDED 10/09/2015 12/07/2015 Inactive alprazolam 0.5 mg ta blet RxNorm: 665644 TAKE ONE TABLET BY MO [facility] AT BEDTIME NEEDED FOR ANXIETY 08/29/2015 11/23/2015 Inactive Flonase Allergy Reli ef 50 mcg/actuation nasal spray,suspension RxNorm: PLACE 2 SPRAYS IN EACH NOSTRIL DAILY 07/06/2015 10/08/2015 Inactive Kenalog 40 mg/mL sylvia pension for injection RxNorm: 9941511 Milliliter(s) Inj 06/12/2015 06/12/2015 In active prednisone 10 mg tab lets in a dose pack RxNorm: 918121 1 Tablet(s) PO UD 06/12/2015 06/17/2015 In active 6-5-4-3-2-1 acyclovir 800 mg tablet RxNorm: 937885 1 Tablet(s) PO TID 06/12/2015 06/21/2015 Inactive Xanax 0.25 mg tablet RxNorm: 979467 1/2-1 Tablet(s) PO QDAY PRN 05/15/2015 02/07/2016 Inactive Flonase Allergy Reli ef 50 mcg/actuation nasal spray,suspension RxNorm: 2 [place] NASAL daily 05/15/2015 06/13/2015 Inactive Kenalog 40 mg/mL sylvia pension for injection RxNorm: 2809392 Milliliter(s) Inj 05/15/2015 05/15/2015 In active metoprolol tartrate 100 mg tablet RxNorm: 512155 TAKE ONE AND ONE-HALF (1 & 1/2) TABLET BY MOUTH EVERY MORNING AND TAKE TWO TABLETS BY MOUTH EVERY EVENING 05/07/2015 06/05/2015 In active metoprolol tartrate 100 mg tablet RxNorm: 598620 TAKE ONE AND ONE-HALF (1 & 1/2) TABLET BY MOUTH EVERY MORNING AND TAKE TWO TABLETS BY MOUTH EVERY EVENING 04/05/2015 05/04/2015 In active amlodipine 10 mg tablet RxNorm: 868734 TAKE ONE TABLET BY MOUTH EVERY MORNING 03/10/2015 12/04/2015 In active alprazolam 0.5 mg ta blet RxNorm: 391643 TAKE ONE TABLET BY MO [facility] EVERY NIGHT AT BEDTIME NEEDED FOR ANXIETY 02/23/2015 03/24/2015 Inactive (Response to an electronic controlled substance refill request - RxReferenceNumber: [id number]) alprazolam 0.5 mg ta blet RxNorm: 101719 1 Tablet(s) PO QHS as needed anxiety 02/23/2015 08/29/2015 In active (Response to an electronic controlled salas bstance refill request - RxReferenceNumber: [id number]) doxazosin 4 mg tablet RxNorm: 706586 TAKE ONE TABLET BY MOUTH TWICE A DAY 02/13/2015 01/29/2016 In active atorvastatin 20 mg t ablet RxNorm: 369928 TAKE ONE TABLET BY MO U[facility] EVERY DAY 01/19/2015 07/17/2015 In active atorvastatin 20 mg t ablet RxNorm: 202148 Tablet(s) TAKE ONE TA BLET BY MOUTH EVERY DAY 01/19/2015 01/18/2015 Inactive [SAVINGS FOR NON-COVERED DRUGS -- BIN:00 3585, PCN: ASPROD1, Group: XXXXX, ID# [id number], Questions: . THIS IS NOT INSURANCE.] Maxzide-25mg 37.5 mg -25 mg tablet RxNorm: 57686 1 Tablet(s) PO daily 01/10/2015 10/08/2015 Inactive [SAVINGS FOR NON-COVERED DRUGS -- BIN:00 3585, PCN: ASPROD1, Group: XXXXX, ID# [id number], Questions: . THIS IS NOT INSURANCE.] metoprolol tartrate 100 mg tablet RxNorm: 226769 TAKE ONE AND ONE-HALF (1 & 1/2) TABLET BY MOUTH EVERY MORNING AND TAKE TWO TABLETS BY MOUTH EVERY EVENING 12/05/2014 01/03/2015 In active Flexeril 10 mg tablet RxNorm: 145667 TAKE ONE TABLET BY MOUTH EVERY 8 HOURS A S NEEDED 10/31/2014 06/27/2015 Inactive alprazolam 0.5 mg ta blet RxNorm: 497337 1 Tablet(s) PO QHS TA KE ONE TABLET BY MOUTH EVERY NIGHT AT BEDTIME AND NEEDED FOR PANIC ATTACKS 10/21/2014 10/23/2014 Inactive (Appended: Controlled substance eRx refi ll - RxReferenceNumber: [id number]) alprazolam 0.5 mg ta blet RxNorm: 841725 TAKE ONE TABLET BY MO UTH EVERY NIGHT AT BEDTIME NEEDED FOR ANXIETY 10/20/2014 11/18/2014 Inactive (Response to an electronic controlled substance refill request - RxReferenceNumber: [id number]) amlodipine 10 mg tablet RxNorm: 792452 1 Tablet(s) PO QAM 09/09/2014 03/07/2015 Inactive now taking full tab [SAVINGS FOR UNINSURED PATIENTS -- BIN:549535, PCN: ASPROD1, Group: [id number], ID# [id number], Process claim through [employer], for questions: . THIS IS NOT INSURANCE.] metoprolol tartrate 100 mg tablet RxNorm: 661651 TAKE ONE AND ONE-HALF (1 & 1/2) TABLET BY MOUTH EVERY MORNING AND TAKE TWO TABLETS BY MOUTH EVERY EVENING 09/03/2014 10/02/2014 In active alprazolam 0.5 mg ta blet RxNorm: 913142 TAKE ONE TABLET BY MO UTH EVERY NIGHT AT BEDTIME AND NEEDED FOR PANIC ATTACKS 08/29/2014 09/12/2014 Inactive (Response to an electronic controlled substance refill request - RxReferenceNumber: [id number]) Zithromax Z-Kush 250 mg tablet RxNorm: 670836 1 Tablet(s) PO UD 07/26/2014 07/25/2014 Inactive 2 tabs on day 1 then 1 tab daily on days 2-5 Zithromax Z-Kush 250 mg tablet RxNorm: 725853 1 Tablet(s) PO UD 07/26/2014 07/30/2014 Inactive 2 tabs on day 1 then 1 tab daily on days 2-5 alprazolam 0.5 mg ta blet RxNorm: 423674 Tablet(s) PO TAKE ONE TABLET BY MOUTH EVERY NIGHT AT BEDTIME AND NEEDED FOR PANIC ATTACKS 07/08/2014 08/30/2014 Inactive (Appended: Controlled substance eRx refill - RxReferenceNumber: [id number]) atorvastatin 20 mg t ablet RxNorm: 793803 TAKE ONE TABLET BY MO UTH EVERY DAY 04/25/2014 01/18/2015 In active Carafate 1 gram tablet RxNorm: 936210 Tablet(s) PO TAKE ONE TABLET BY MOUTH FO UR TIMES A DAY 04/14/2014 10/08/2015 Inactive Fish Oil 1,000 mg ca psule RxNorm: 1 Capsule(s) PO TID 04/13/2014 10/08/2015 Inactive Flexeril 10 mg tablet RxNorm: 225192 1 Tablet(s) PO Q8 PRN 04/01/2014 04/10/2014 Inactive Carafate 1 gram tablet RxNorm: 174622 1 Tablet(s) PO QID 03/10/2014 04/08/2014 Inactive chlordiazepoxide-cli dinium 5 mg-2.5 mg capsule RxNorm: 021164 1 Capsule(s) PO TID P RN 03/10/2014 04/10/2014 Inactive doxazosin 4 mg tablet RxNorm: 641982 1 Tablet(s) PO BID 02/02/2014 02/12/2015 Inactive Kenalog 40 mg/mL sylvia pension for injection RxNorm: 5102447 Milliliter(s) Inj 02/02/2014 02/02/2014 In active atorvastatin 20 mg t ablet RxNorm: 310223 Tablet(s) PO TAKE ONE TABLET BY MOUTH EVERY DAY 01/10/2014 04/24/2014 Inactive alprazolam 0.5 mg ta blet RxNorm: 546030 Tablet(s) PO TAKE ONE TABLET BY MOUTH EVERY NIGHT AT BEDTIME AND NEEDED FOR PANIC ATTACKS 01/10/2014 07/07/2014 Inactive (Appended: Controlled substance eRx refill - RxReferenceNumber: [id number]) alprazolam 0.5 mg ta blet RxNorm: 867414 1 Tablet(s) PO QHS TA KE ONE TABLET BY MOUTH EVERY NIGHT AT BEDTIME AND NEEDED FOR PANIC ATTACKS 01/10/2014 10/20/2014 Inactive (Appended: Controlled substance eRx refi ll - RxReferenceNumber: [id number]) alprazolam 0.5 mg ta blet RxNorm: 991436 Tablet(s) PO TAKE ONE TABLET BY MOUTH EVERY NIGHT AT BEDTIME AND NEEDED FOR PANIC ATTACKS 01/10/2014 01/09/2014 Inactive (Appended: Controlled substance eRx refill - RxReferenceNumber: [id number]) Carafate 1 gram tablet RxNorm: 782450 1 Tablet(s) PO QID 12/16/2013 01/14/2014 Inactive Nexium 40 mg capsule ,delayed release RxNorm: 316329 Capsule(s) PO TAKE ON E CAPSULE BY MOUTH EVERY DAY 11/25/2013 03/12/2016 Inactive doxazosin 4 mg tablet RxNorm: 594974 1/2 Tablet(s) PO QPM 10/21/2013 10/20/2013 Inactive alprazolam 0.5 mg ta blet RxNorm: 662151 1 Tablet(s) PO as dir ected q hs and prn panic attacks 10/18/2013 01/10/2014 Inactive doxazosin 4 mg tablet RxNorm: 937467 1 q am 1/2 q pm Tablet(s) PO 09/21/2013 02/01/2014 Inactive doxazosin 4 mg tablet RxNorm: 317255 1 q am 1/2 q pm Tablet(s) PO 09/21/2013 09/20/2013 Inactive amlodipine 10 mg tablet RxNorm: 129923 1 Tablet(s) PO QAM 08/30/2013 08/24/2014 Inactive now taking full tab metoprolol tartrate 100 mg tablet RxNorm: 565207 2 Tablet(s) PO QPM 08/24/2013 10/22/2013 Inactive alprazolam 0.5 mg ta blet RxNorm: 560003 1 Tablet(s) PO as dir ected q hs and prn panic attacks 07/29/2013 10/17/2013 Inactive Benicar 20 mg tablet RxNorm: 299287 1 Tablet(s) PO daily 07/26/2013 08/09/2013 Inactive amlodipine 10 mg tablet RxNorm: 322872 1 Tablet(s) PO QAM 07/19/2013 08/29/2013 Inactive cyclobenzaprine 5 mg tablet RxNorm: 923942 1 Tablet(s) PO TID OR N one pill every 8 hours as needed for muscle spasms. 07/19/2013 03/31/2014 Inactive Kenalog 40 mg/mL Sylvia p for Injection RxNorm: 0980777 1 Milliliter(s) Inj 06/30/2013 06/30/2013 In active prednisone 10 mg tab lets in a dose pack RxNorm: 004116 1 Tablet(s) PO as doc tor directed take steroid taper as directed on box 06/30/2013 07/09/2013 Inactive disp ense one PACK meclizine 25 mg tablet RxNorm: 365191 1 Tablet(s) PO Q6 PRN 1/2 - 1 pill every 6 hours as needed for vertigo 06/30/2013 08/10/2013 Inactive metoprolol tartrate 100 mg tablet RxNorm: 493145 1.5 Tablet(s) PO BID 06/30/2013 08/23/2013 In active metoprolol tartrate 100 mg tablet RxNorm: 552908 1 Tablet(s) PO BID 06/24/2013 06/29/2013 Inactive metoprolol tartrate 100 mg tablet RxNorm: 202396 1 Tablet(s) PO daily 06/17/2013 06/23/2013 In active metoprolol tartrate 100 mg tablet RxNorm: 514959 1 Tablet(s) PO daily 06/17/2013 06/16/2013 In active Toprol XL 100 mg tab let,extended release RxNorm: 334900 Tablet(s) PO TAKE ONE AND ONE- HALF TABLET BY MOUTH EVERY MORNING AND ONE TABLET IN THE EVENING 05/05/2013 06/22/2013 In active alprazolam 0.5 mg ta blet RxNorm: 485031 1 Tablet(s) PO as dir ected q hs and prn panic attacks 04/06/2013 07/28/2013 Inactive doxazosin 4 mg tablet RxNorm: 722036 Tablet(s) PO TAKE ONE TABLET BY MOUTH EV KANE DAY 04/01/2013 09/20/2013 Inactive Toprol XL 100 mg tab let,extended release RxNorm: 162525 Tablet(s) PO TAKE ONE AND ONE- HALF TABLET BY MOUTH EVERY MORNING AND ONE TABLET IN THE EVENING 12/25/2012 05/04/2013 In active Lasix 20 mg tablet RxNorm: 558349 1 Tablet(s) PO QDAY PRN Take 1 tab daily x 3 days then as needed 12/02/2012 04/10/2014 Inactive potassium chloride E R 20 mEq tablet,extended release(part/cryst) RxNorm: 275080 1 Tablet(s) PO PRN 12/02/2012 10/04/2013 Inactive prn swelling alprazolam 0.5 mg ta blet RxNorm: 146077 1 Tablet(s) PO as dir ected q hs and prn panic attacks 12/01/2012 04/05/2013 Inactive amlodipine 10 mg tablet RxNorm: 186728 1/2 Tablet(s) PO QAM 12/01/2012 07/18/2013 Inactive fluconazole 150 mg t ablet RxNorm: 590498 1 Tablet(s) PO daily 11/16/2012 11/20/2012 Inactive fluconazole 150 mg t ablet RxNorm: 280678 1 Tablet(s) PO daily 11/16/2012 11/15/2012 Inactive Nexium 40 mg capsule ,delayed release RxNorm: 827060 1 Capsule(s) PO daily 10/23/2012 11/16/2013 In active acyclovir 400 mg tablet RxNorm: 911699 1 Tablet(s) PO TID 10/19/2012 10/28/2012 Inactive chlordiazepoxide-cli dinium 5 mg-2.5 mg capsule RxNorm: 449907 1 Capsule(s) PO TID P RN 2012 12/22/2013 Inactive Voltaren 1 % Topical Gel RxNorm: 128592 4 Gram(s) TOP QID pt is to use 2 grams to each hand and 4 grams to knees. 08/18/2012 04/10/2014 Inactive doxazosin 4 mg tablet RxNorm: 983900 1 Tablet(s) PO QAM 08/18/2012 10/16/2012 Inactive atorvastatin 20 mg t ablet RxNorm: 674084 1 Tablet(s) PO HS 08/12/2012 08/11/2012 Inactive may have #90 x3 infection atorvastatin 20 mg t ablet RxNorm: 973371 1 Tablet(s) PO HS 08/12/2012 09/05/2013 Inactive may have #90 x3 infection doxazosin 4 mg tablet RxNorm: 913046 1 Tablet(s) PO daily 08/11/2012 08/17/2012 Inactive clonidine 0.1 mg/24 hr Weekly Transderm Patch RxNorm: 986009 1 Patch TD QW 08/04/2012 08/10/2012 In active Influenza Virus Vacc ine 0.5 mL RxNorm: IM 08/04/2012 08/04/2012 Inactive cyclobenzaprine 5 mg tablet RxNorm: 534811 1 Tablet(s) PO TID OR N one pill every 8 hours as needed for muscle spasms. 07/13/2012 11/09/2012 Inactive cyclobenzaprine 5 mg tablet RxNorm: 601947 1 Tablet(s) PO TID OR N one pill every 8 hours as needed for muscle spasms. 07/09/2012 07/12/2012 Inactive gabapentin 100 mg ca psule RxNorm: 026468 1 Capsule(s) PO TID 07/01/2012 12/01/2012 Inactive atorvastatin 20 mg t ablet RxNorm: 380231 1/2 Tablet(s) PO daily 07/01/2012 08/11/2012 Inactive may of 90 day supply if cheaper Toprol XL 100 mg tab let,extended release RxNorm: 592084 Tablet(s) PO BID 11/2 in am and 1 in evening 07/01/2012 06/16/2013 Inactive 1 1/2 q am 1 in [place] alprazolam 0.5 mg ta blet RxNorm: 606798 1 Tablet(s) PO as dir ected q hs and prn panic attacks 06/24/2012 11/30/2012 Inactive amlodipine 10 mg tablet RxNorm: 803414 1 Tablet(s) PO QAM 06/19/2012 11/30/2012 Inactive benazepril 20 mg tablet RxNorm: 799459 1 Tablet(s) PO daily 06/19/2012 06/13/2013 Inactive one daily at noon Toprol XL 100 mg tab let,extended release RxNorm: 385552 Tablet(s) PO BID 06/19/2012 06/30/2012 In active 1 1/2 q am 1 in [place] Toprol XL 100 mg tab let,extended release RxNorm: 474918 1 1/2 Tablet(s) PO BI D 04/27/2012 06/18/2012 In active 90 or 30 day supply, whatever ins will a llow Lotrel 10 mg-20 mg Cap RxNorm: 309712 1 Capsule(s) PO daily 04/20/2012 08/04/2012 Inactive estradiol 0.5 mg Tab RxNorm: 221551 1 Tablet(s) PO BID 04/20/2012 12/02/2012 Inactive Toprol XL 100 mg 24 hr Tab RxNorm: 084059 1 1/2 Tablet(s) PO BID 04/14/2012 04/26/2012 Inactive Toprol XL 100 mg 24 hr Tab RxNorm: 884072 Tablet(s) PO daily 03/31/2012 04/13/2012 Inactive new directions: one q am 1/2 every evepl ease put on file until she needs filled Lipitor 10 mg tablet RxNorm: 149054 1 Tablet(s) PO daily 03/31/2012 12/02/2012 Inactive march day supply if cheaper Toprol XL 100 mg 24 hr Tab RxNorm: 784965 1 Tablet(s) PO daily 03/11/2012 03/30/2012 Inactive Boniva 150 mg Tab RxNorm: 768848 1 Tablet(s) PO weekly 02/19/2012 12/02/2012 Inactive Detrol LA 4 mg capsu le,extended release RxNorm: 351121 1 Capsule(s) PO daily 02/19/2012 03/12/2016 In active doxycycline hyclate 100 mg Tab RxNorm: 106925 1 Tablet(s) PO BID 01/23/2012 02/25/2012 Inactive Rocephin 500 mg Solu tion for Injection RxNorm: 488666 1 Milliliter(s) Inj 01/23/2012 01/23/2012 In active Kenalog 40 mg/mL Sylvia p for Injection RxNorm: 0807824 1 Milliliter(s) Inj 01/23/2012 01/23/2012 In active cyclobenzaprine 5 mg tablet RxNorm: 063831 1 Tablet(s) PO TID OR N one pill every 8 hours as needed for muscle spasms. 12/20/2011 04/17/2012 Inactive clonidine 0.1 mg Tab RxNorm: 405818 1 Tablet(s) PO BID 12/20/2011 02/25/2012 Inactive Vitamin D3 5,000 uni t tablet RxNorm: 082680 1 Tablet(s) PO daily No Start Date Active Nexium 24HR 22.3 mg capsule,delayed release RxNorm: 937327 1 Capsule(s) PO daily as needed No Start Date Active Fish Oil 360 mg-1,20 0 mg capsule,delayed release RxNorm: 1 Capsule(s) PO daily No Start Date Active Lotrel 10 mg-20 mg Cap RxNorm: 143331 1 Capsule(s) PO daily No Start Date 02/24/2012 Inactive benazepril 20 mg tablet RxNorm: 936425 1 Tablet(s) PO No Start Date 06/18/2012 Inactive one daily at noon Vimovo 500 mg-20 mg multiphase, immed & delay rel Tab RxNorm: 150926 1 Tablet(s) PO BID No Start Date 12/01/2012 Inactive B12 1000 mcg RxNorm: 2 IM daily No Start Date 03/12/2016 Inactive Fish Oil 1,000 mg ca psule RxNorm: 1 Capsule(s) PO BID No Start Date 04/12/2014 Inactive Benicar 40 mg tablet RxNorm: 658043 1 Tablet(s) PO daily No Start Date 10/24/2013 Inactive Carafate 1 gram tablet RxNorm: 729888 Oral No Start Date 12/15/2013 Inactive Vitamin B-12 1,000 m cg tablet RxNorm: 571303 1 Tablet(s) PO daily No Start Date 03/12/2016 Inactive amlodipine 10 mg tablet RxNorm: 729560 1 Tablet(s) PO daily No Start Date 06/18/2012 Inactive Phenergan VC-Codeine 6.25 mg-5 mg-10 mg/5 mL Syrup RxNorm: 515517 5-10 Milliliter(s) PO Q6 PRN No Start Date 04/10/2014 Inactive Celebrex 200 mg capsule RxNorm: 524123 1 Capsule(s) PO daily No Start Date 10/08/2015 Inactive Percocet 5 mg-325 mg tablet RxNorm: 0682770 1-2 Tablet(s) PO Q6 PRN No Start Date 06/16/2014 Inactive Exforge 10 mg-320 mg Tab RxNorm: 151475 1 Tablet(s) PO daily sample No Start Date 05/20/2012 Inactive Lipitor 10 mg Tab RxNorm: 257249 1 Tablet(s) PO daily No Start Date 03/30/2012 Inactive tramadol 50 mg tablet RxNorm: 794391 1-2 Tablet(s) PO Q8 as needed No Start Date 04/24/2016 Inactive Lasix 20 mg tablet RxNorm: 814902 1 Tablet(s) PO QDAY PRN Take 1 tab daily x 3 days then as needed No Start Date 12/01/2012 Inactive potassium chloride E R 20 mEq tablet,extended release(part/cryst) RxNorm: 5104754 1 Tablet(s) PO QDAY PRN No Start Ochoa e 12/01/2012 Inactive Toprol XL 100 mg 24 hr Tab RxNorm: 702265 1 Tablet(s) PO daily No Start Date 03/10/2012 Inactive MIDRIN 325 mg-65 mg- 100 mg Cap RxNorm: 571096 1 Capsule(s) PO PRN No Start Date 05/20/2012 Inactive Nexium 40 mg capsule ,delayed release RxNorm: 962601 1 Capsule(s) PO daily No Start Date 10/22/2012 Inactive Detrol LA 4 mg 24 hr Cap RxNorm: 860883 Oral No S tart Date 02/18/2012 Inactive Boniva 150 mg Tab RxNorm: 830531 Oral No Start Date 02/18/2012 Inactive Flexeril 10 mg tablet RxNorm: 576349 1 Tablet(s) PO Q8 PRN No Start Date 03/31/2014 Inactive clidinium bromide Oral RxNorm: Oral No Start Date 12/01/2012 Inactive alprazolam 0.5 mg ta blet RxNorm: 673558 1 Tablet(s) PO as dir ected q hs and prn panic attacks No Start Date 06/23/2012 Inactive chlordiazepoxide Oral RxNorm: Oral No Start Date 12/01/2012 Inactive metoprolol tartrate 100 mg tablet RxNorm: 750051 Tablet(s) PO TAKE ONE AND ONE-HALF (1 & 1/2) TABLET BY MOUTH EVERY MORNING AND TAKE TWO TABLETS BY MOUTH EVERY EVENING No Start Date 08/03/2014 Inactive furosemide 20 mg tablet RxNorm: 718736 1 Tablet(s) PO daily No Start Date 01/29/2016 Inactive Calcium Oral RxNorm: Oral No Start Date 03/12 Inactive Nasonex 50 mcg/actua tion [facility] RxNorm: 282661 1 [facility] NASAL BID No Start Date 04/10/2014 Inactive Medication Administered Medication Codes Instruc tions Start Date Status Kenalog 40 mg/mL suspension for injection RxNorm: 5469455 2Milliliter 03/21/2017 N o longer Active Kenalog 40 mg/mL suspension for injection RxNorm: 1119776 1Milliliter 04/04/2016 N o longer Active Kenalog 40 mg/mL suspension for injection RxNorm: 8568497 Milliliter 06/12/2015 No longer Active Kenalog 40 mg/mL suspension for injection RxNorm: 3382074 Milliliter 05/15/2015 No longer Active Kenalog 40 mg/mL suspension for injection RxNorm: 3536622 Milliliter 02/02/2014 No longer Active Kenalog 40 mg/mL Susp for Injection RxNorm: 3303187 1Milliliter 06/30/2013 N o longer Active Influenza Virus Vaccine 0.5 mL RxNorm: 08/04/2012 No longer Active Rocephin 500 mg Solution for Injection RxNorm: 990279 1Milliliter 01/23/2012 N o longer Active Kenalog 40 mg/mL Susp for Injection RxNorm: 9164648 1Milliliter 01/23/2012 N o longer Active Immunizations [...] Ord2 RDW 14.8 % 06/05/2015 Comp Metabolic Qya295 NA 138 mEq/L 06/05/2015 Comp Metabolic Ouf850 K 4.3 mEq/L 06/05/2015 Comp Metabolic Hnl037 CL 100 mEq/L 06/05/2015 Comp Metabolic Sei448 CO2 29.0 mEq/L 06/05/2015 Comp Metabolic Gqd494 AN ION GAP 13 06/05/2015 Comp Metabolic Jle359 GL UCOSE 85 mg/dL 06/05/2015 Comp Metabolic Rid639 Cr eat 0.7 mg/dL 06/05/2015 Comp Metabolic Rkv594 eG FR 94 ml/min/1.73m2 06/05 Comp Metabolic Vwd389 BUN 16 mg/dL 06/05/2015 Comp Metabolic Mfo401 B/ C Ratio 24.2 Ratio 06/05/2015 Comp Metabolic Pvq963 CA LCIUM 9.5 mg/dL 06/05/2015 Comp Metabolic Cwq904 AL K PHOS 69 U/L 06/05/2015 Comp Metabolic Ehn810 T(SGOT) 22 U/L 06/05/2015 Comp Metabolic Qnd858 AL T(SGPT) 26 U/L 06/05/2015 Comp Metabolic Cbn526 BI LI T 0.5 mg/dL 06/05/2015 Comp Metabolic Mcu423 AL BUMIN 4.2 g/dL 06/05/2015 Comp Metabolic Ufa863 TP RO 6.1 g/dL 06/05/2015 Comp Metabolic Hpn560 GL OB 1.9 g/dL 06/05/2015 Comp Metabolic Kmf816 A/ G Ratio 2.2 Ratio 06/05/2015 Comp Metabolic Fcb632 Os mo 276 mOsmo 06/05/2015 Tsh Ord6 hTSH II 1.99 uIU/mL 06/05/2015 Lipid Ord30 CHOL 171 mg/dL 06/05/2015 Lipid Ord30 HDL 55.0 mg/dl 06/05/2015 Lipid Ord30 TRIG 178 mg/dL 06/05/2015 Lipid Ord30 LDL 80 mg/dL 06/05/2015 Lipid Ord30 C/HDL 3.1 Ratio 06/05/2015 %Hba1C Nlw859 % HbA1c 32626-6 5.7 % 06/05/2015 %Hba1C Chc830 Gluc Ave 117 mg/dL 06/05/2015 A1C HPLC 7386247 A1C HPLC 98107-0 5.6 % 07/15/2014 GFR CALC 2973561 GFR AA >60 ML/MIN 07/15/2014 GFR CALC 6542619 GFR NON -AA >60 ML/MIN 07/15/2014 CHEM 14 2303983 AST 21 U/L 07/15/2014 CHEM 14 7183164 ALT 23 IU/L 07/15/2014 CHEM 14 3449799 BUN 14 MG/DL 07/15/2014 CHEM 14 3264302 ALBUMIN 4.2 GM/DL 07/15/2014 CHEM 14 7338689 CHLORIDE 104 MMOL/L 07/15/2014 CHEM 14 3397080 BILI TOT 0.4 MG/DL 07/15/2014 CHEM 14 6044755 ALK PHOS 88 U/L 07/15/2014 CHEM 14 5300404 SODIUM 140 MMOL/L 07/15/2014 CHEM 14 4488636 CREATINI NE 0.63 MG/DL 07/15/2014 CHEM 14 2493182 CALCIUM 9.4 MG/DL 07/15/2014 CHEM 14 9268503 POTASSIUM 4.0 MMOL/L 07/15/2014 CHEM 14 6623031 PROT TOT 6.4 GM/DL 07/15/2014 CHEM 14 8265632 GLUCOSE 90 MG/DL 07/15/2014 CHEM 14 5132055 BICARB 30 MMOL/L 07/15/2014 CHEM 14 0571385 ANION GAP 6 MEQ/L 07/15/2014 A1C HPLC 8922391 A1C HPLC 40688-6 6.0 % 04/13/2014 TSH 2174150 TSH 1.875 uIU/ML 04/12/2014 CHEM 14 0576170 AST 17 U/L 04/12/2014 CHEM 14 9418884 ALT 20 IU/L 04/12/2014 CHEM 14 2883489 BUN 14 MG/DL 04/12/2014 CHEM 14 3719334 ALBUMIN 4.2 GM/DL 04/12/2014 CHEM 14 4753943 CHLORIDE 104 MMOL/L 04/12/2014 CHEM 14 5291945 BILI TOT 0.3 MG/DL 04/12/2014 CHEM 14 2973542 ALK PHOS 80 U/L 04/12/2014 CHEM 14 9925261 SODIUM 141 MMOL/L 04/12/2014 CHEM 14 0847391 CREATINI NE 0.62 MG/DL 04/12/2014 CHEM 14 9668996 CALCIUM 9.4 MG/DL 04/12/2014 CHEM 14 3475084 POTASSIUM 3.5 MMOL/L 04/12/2014 CHEM 14 5974485 PROT TOT 6.5 GM/DL 04/12/2014 CHEM 14 0423095 GLUCOSE 89 MG/DL 04/12/2014 CHEM 14 4947346 BICARB 29 MMOL/L 04/12/2014 CHEM 14 9963633 ANION GAP 8 MEQ/L 04/12/2014 LIPID GRP HDL TE ST 59 MG/DL 04/12/2014 LIPID GRP 4557052 TRIG 177 MG/DL 04/12/2014 LIPID GRP 0500959 TEST L DL 106 MG/DL 04/12/2014 LIPID GRP CHOL 200 MG/DL 04/12/2014 LIPID GRP RCHOL/ HDL 3.39 RATIO 04/12/2014 CBC 3785475 WBC 4.6 10e9/L 04/12/2014 CBC 6719996 RBC 4.52 10e12/L 04/12/2014 CBC 7614812 HGB 13.1 g/dL 04/12/2014 CBC 4148364 HCT DET 39.2 % 04/12/2014 CBC 0280732 MCV 86.7 fL 04/12/2014 CBC 6179223 MCH 29.0 pg 04/12/2014 CBC 3543128 MCHC 33.4 g/dL 04/12/2014 CBC 0903750 PLT 233 10e9/L 04/12/2014 CBC 5946319 MPV 9.8 fL 04/12/2014 CBC 7503187 AN % 59.5 % 04/12/2014 CBC 1014241 LY % 28.6 % 04/12/2014 CBC 0590791 MON % 10.0 % 04/12/2014 CBC 3484119 EOS % 1.5 % 04/12/2014 CBC 2807702 BASO % 0.4 % 04/12/2014 CBC 0182553 RDW 13.7 % 04/12/2014 CBC 1393776 ABS AN 2.74 10e9/L 04/12/2014 CBC 3635185 ABS LYMPH 1.32 10e9/L 04/12/2014 CBC 0317053 ABS MONO 0.46 10e9/L 04/12/2014 CBC 8715207 ABS EOS 0.07 10e9/L 04/12/2014 CBC 4237119 ABS BASO 0.02 10e9/L 04/12/2014 CBC 9932041 RDW-SD 42.6 fL 04/12/2014 GFR CALC 6852422 GFR AA >60 ML/MIN 04/12/2014 GFR CALC 9967283 GFR NON -AA >60 ML/MIN 04/12/2014 LIPID GRP HDL TE ST 57 MG/DL 08/24/2013 LIPID GRP TRIG 183 MG/DL 08/24/2013 LIPID GRP TEST L DL 64 MG/DL 08/24/2013 LIPID GRP CHOL 158 MG/DL 08/24/2013 LIPID GRP RCHOL/ HDL 2.77 RATIO 08/24/2013 GFR CALC 8602247 GFR AA >60 ML/MIN 08/24/2013 GFR CALC 2292751 GFR NON -AA >60 ML/MIN 08/24/2013 CHEM 14 6391293 AST 13 U/L 08/24/2013 CHEM 14 8160574 ALT 15 IU/L 08/24/2013 CHEM 14 3950094 BUN 14 MG/DL 08/24/2013 CHEM 14 8955138 ALBUMIN 4.3 GM/DL 08/24/2013 CHEM 14 6542436 CHLORIDE 106 MMOL/L 08/24/2013 CHEM 14 7995275 BILI TOT 0.3 MG/DL 08/24/2013 CHEM 14 0311157 ALK PHOS 75 U/L 08/24/2013 CHEM 14 0830180 SODIUM 141 MMOL/L 08/24/2013 CHEM 14 6831881 CREATINI NE 0.56 MG/DL 08/24/2013 CHEM 14 3861494 CALCIUM 9.1 MG/DL 08/24/2013 CHEM 14 8888305 POTASSIUM 4.2 MMOL/L 08/24/2013 CHEM 14 7120088 PROT TOT 6.0 GM/DL 08/24/2013 CHEM 14 0021262 GLUCOSE 83 MG/DL 08/24/2013 CHEM 14 6628352 BICARB 28 MMOL/L 08/24/2013 CHEM 14 5640161 ANION GAP 7 MEQ/L 08/24/2013 CBC 8470491 WBC 4.7 10e9/L 08/24/2013 CBC 1563808 RBC 4.33 10e12/L 08/24/2013 CBC 6069547 HGB 12.5 g/dL 08/24/2013 CBC 3786527 HCT DET 38.2 % 08/24/2013 CBC 8487228 MCV 88.2 fL 08/24/2013 CBC 9083789 MCH 28.9 pg 08/24/2013 CBC 1803764 MCHC 32.7 g/dL 08/24/2013 CBC 4867174 PLT 218 10e9/L 08/24/2013 CBC 4746464 MPV 10.4 fL 08/24/2013 CBC 4745385 AN % 61.9 % 08/24/2013 CBC 4192940 LY % 24.8 % 08/24/2013 CBC 2615108 MON % 10.3 % 08/24/2013 CBC 7914783 EOS % 2.1 % 08/24/2013 CBC 6302631 BASO % 0.9 % 08/24/2013 CBC 7945874 RDW 14.6 % 08/24/2013 CBC 4604266 ABS AN 2.91 10e9/L 08/24/2013 CBC 4408794 ABS LYMPH 1.17 10e9/L 08/24/2013 CBC 7214096 ABS MONO 0.48 10e9/L 08/24/2013 CBC 4168563 ABS EOS 0.10 10e9/L 08/24/2013 CBC 0348521 ABS BASO 0.04 10e9/L 08/24/2013 CBC 9237470 RDW-SD 46.7 fL 08/24/2013 TSH 0419677 TSH 1.208 uIU/ML 08/24/2013 Review of Systems [...] No rash Dermatologic No sores Psychiatric anxiety 0701/2015 Psychiatric depression 0 05/15/2015 Constitutional No recent [...] nourished 03/10/2014 None Full Exam - General 1995 Eyes conjunctiva/eyelids Overall: conjunctiva clear 03/10/2014 None [...] distress 08/24/2013 None Full Exam - General 1995 [...] clubbing 06/24/2013 None Full Exam - General 1995 [...] Date TRIAMCINOLONE ACET I [place] NOS CPT-4: D3402Yyhtsxa 03/21/2017 PPPS, SUBSEQ VISIT CPT-4: N5236Xuzlxxl 01/22/2017 ADMIN PNEUMOCOCCAL V ACCINE SNOMED CT: 74709278 CPT-4: R0931Yodptzq 09/16/2016 Pneumococcal Polysac charide Vaccine, 23-Valent, Ad CPT-4: 97653Qojltwi 09/16/2016 THER/PROPH/DIAG INJ SC/IM CPT-4: 43634Benlhqm 04/04/2016 TRIAMCINOLONE ACET I [place] NOS CPT-4: K7810Cczmrcs 04/04/2016 ADMIN INFLUENZA VIRU S VAC CPT-4: F9840Cjdhqwz 07/28/2015 FLU VACC 4 XIMENA 3 YRS PLUS IM Formatting Model/CDA Sections, Assigned to/Jen Cota SNOMED CT: 65491846 CPT-4: 22951Azmjfek 07/28/2015 TRIAMCINOLONE ACET I [place] NOS CPT-4: J9718Lpvmwsp 06/12/2015 TRIAMCINOLONE ACET I [place] NOS CPT-4: R7381Hivjwru 05/15/2015 ADMIN INFLUENZA VIRU S VAC CPT-4: E6992Sozhvjy 07/19/2014 FLU VAC NO PRSV 4 VA L 3 YRS+ Assigned to/Jen Cota CPT-4: 75562Hqmfdff 07/19/2014 TRIAMCINOLONE ACET I [place] NOS CPT-4: A0244Kxnslkz 02/02/2014 ROUTINE VENIPUNCTURE CPT-4: 32924Kayvnmw 08/24/2013 ADMIN INFLUENZA VIRU S VAC CPT-4: N7844Zcectjb 07/26/2013 FLULAVAL VACC, 3 YRS & >, IM CPT-4: A1577Paiwrht 07/26/2013 TRIAMCINOLONE ACET I [place] NOS CPT-4: G1571Jpkmdxz 06/30/2013 PRESCRIP TRANSMIT A ERX SY CPT-4: V6505Mucgkbe 06/30/2013 PRESCRIP TRANSMIT A ERX SY CPT-4: Z8947Ayescqo 12/01/2012 PRESCRIP TRANSMIT A ERX SY CPT-4: P1791Cjsekkg 10/19/2012 PRESCRIP TRANSMIT A ERX SY CPT-4: C9867Iawdxwg 10/07/2012 PRESCRIP TRANSMIT A ERX SY CPT-4: X9049Wgpyxnr 2012 PRESCRIP TRANSMIT A ERX SY CPT-4: U0514Wjzrqnn 08/18/2012 ADMIN INFLUENZA VIRU S VAC CPT-4: C9475Cntcsua 08/04/2012 FLULAVAL VACC, 3 YRS & >, IM CPT-4: N2739Ckpcvio 08/04/2012 PRESCRIP TRANSMIT A ERX SY CPT-4: H2549Zznqenp 08/04/2012 PRESCRIP TRANSMIT A ERX SY CPT-4: V9521Vxzvmob 07/01/2012 ROCEPHIN, PER 250 MG CPT-4: L4190Ynotlix 01/23/2012 TRIAMCINOLONE ACET I [place] NOS CPT-4: M6257Kvscnje 01/23/2012 THER/PROPH/DIAG INJ SC/IM CPT-4: 15376Wdycuit 01/23/2012 REMOVE IMPACTED EAR WAX UNI CPT-4: 56383Yawmumq 01/02/2012 ROUTINE VENIPUNCTURE CPT-4: 47131Mtniasw 12/20/2011 Vital Signs Date Vital 03/21/2017 Blood Pressure 1: 152/88 Code: 8480-6 Heart Rate 1: 70 bpm Height: SpO2: 98% Weight: 03/19/2017 Blood Pressure 1: 132/64 Code: 8480-6 BMI: 33.0 Code: 57204-7 Heart Rate 1: 64 bpm Height: 5' SpO2: 96% Weight: 172 lbs 01/22/2017 Blood Pressure 1: 120/68 Code: 8480-6 BMI: 33.4 Code: 28247-4 Heart Rate 1: 68 bpm Height: 5' SpO2: 96% Weight: 174 lbs 01/14/2017 Blood Pressure 1: 138/80 Code: 8480-6 BMI: 33.4 Code: 93991-1 Heart Rate 1: 69 bpm Height: 5' SpO2: 98% Weight: 174 lbs 09/23/2016 Blood Pressure 1: 138/70 Code: 8480-6 BMI: 33.6 Code: 28150-0 Heart Rate 1: 68 bpm Height: 5' SpO2: 98% Temperature: 36.4 (C ) / 97.5 (F) Weight: 175 lbs 09/16/2016 Blood Pressure 1: 124/74 Code: 8480-6 BMI: 33.6 Code: 81854-3 Heart Rate 1: 64 bpm Height: 5' SpO2: 97% Weight: 175 lbs 06/25/2016 Weigh t: 174 lbs 06/17/2016 Blood Pressure 1: 128/80 Code: 8480-6 BMI: 34.0 Code: 88883-1 Heart Rate 1: 76 bpm Height: 5' SpO2: 95% Weight: 177 lbs 04/03/2016 Blood Pressure 1: 138/72 Code: 8480-6 BMI: 34.2 Code: 71051-9 Heart Rate 1: 63 bpm Height: 5' SpO2: 96% Weight: 178 lbs 03/13/2016 Blood Pressure 1: 128/72 Code: 8480-6 BMI: 35.3 Code: 32927-7 Heart Rate 1: 71 bpm Height: 5' SpO2: 97% Weight: 184 lbs 01/30/2016 Blood Pressure 1: 134/72 Code: 8480-6 BMI: 35.2 Code: 98339-1 Heart Rate 1: 71 bpm Height: 5' SpO2: 96% Weight: 183 lbs 12/21/2015 Blood Pressure 1: 148/90 Code: 8480-6 BMI: 34.6 Code: 98543-5 Heart Rate 1: 89 bpm Height: 5' SpO2: 96% Weight: 180 lbs 10/09/2015 Blood Pressure 1: 124/76 Code: 8480-6 BMI: 34.6 Code: 75383-0 Heart Rate 1: 88 bpm Height: 5' SpO2: 96% Weight: 180 lbs 06/12/2015 Blood Pressure 1: 148/74 Code: 8480-6 BMI: 33.4 Code: 26308-6 Heart Rate 1: 70 bpm Height: 5' SpO2: 96% Weight: 174 lbs 06/05/2015 Blood Pressure 1: 142/82 Code: 8480-6 BMI: 33.2 Code: 04883-6 Heart Rate 1: 72 bpm Height: 5' Weight: 173 lbs 05/15/2015 Blood Pressure 1: 118/80 Code: 8480-6 BMI: 33.6 Code: 24900-5 Heart Rate 1: 82 bpm Height: 5' Weight: 175 lbs 02/06/2015 Blood Pressure 1: 122/76 Code: 8480-6 BMI: 34.6 Code: 11363-7 Heart Rate 1: 58 bpm Height: 5' Weight: 180 lbs 01/10/2015 Blood Pressure 1: 158/90 Code: 8480-6 Blood Pressure 2: 152/90 Code: 8480-6 BMI: 34.6 Code: 41636-1 Heart Rate 1: 68 bpm Height: 5' Weight: 180 lbs 07/19/2014 Blood Pressure 1: 142/78 Code: 8480-6 BMI: 33.6 Code: 31977-7 Heart Rate 1: 56 bpm Height: 5' Weight: 175 lbs 06/17/2014 Blood Pressure 1: 128/86 Code: 8480-6 Heart Rate 1: 66 bpm SpO2: 98% Weight: 172 lbs 04/19/2014 Blood Pressure 1: 152/82 Code: 8480-6 BMI: 32.5 Code: 44398-1 Heart Rate 1: 60 bpm Height: 5' Weight: 169 lbs 04/11/2014 Blood Pressure 1: 120/80 Code: 8480-6 BMI: 33.4 Code: 31662-3 Heart Rate 1: 64 bpm Height: 5' Weight: 174 lbs 03/10/2014 Blood Pressure 1: 136/64 Code: 8480-6 BMI: 32.7 Code: 97071-6 Heart Rate 1: 76 bpm Height: 5' Weight: 170 lbs 02/02/2014 Blood Pressure 1: 160/76 Code: 8480-6 BMI: 32.7 Code: 46590-4 Heart Rate 1: 64 bpm Height: 5' Weight: 170 lbs 10/25/2013 Blood Pressure 1: 164/82 Code: 8480-6 BMI: 31.9 Code: 98850-0 Heart Rate 1: 60 bpm Height: 5' Weight: 166 lbs 08/24/2013 Blood Pressure 1: 138/88 Code: 8480-6 Heart Rate 1: 80 bpm Weight: 07/26/2013 Blood Pressure 1: 154/70 Code: 8480-6 Heart Rate 1: 72 bpm Weight: 162 lbs 06/30/2013 Blood Pressure 1: 182/86 Code: 8480-6 Heart Rate 1: 80 bpm Weight: 06/24/2013 Blood Pressure 1: 148/68 Code: 8480-6 BMI: 31.3 Code: 58115-8 Heart Rate 1: 72 bpm Height: 5' [...] 1: 142/88 Code: 8480-6 BMI: 30.6 Code: 01715-1 Heart Rate 1: 64 bpm Height: 5' [...] 1: 180/96 Code: 8480-6 BMI: 30.5 Code: 45200-9 Heart Rate 1: 76 bpm Height: 5' Respiratory Rate: 16 bpm Weight: 159 lbs 02/19/2012 Blood Pressure 1: 150/70 Code: 8480-6 Blood Pressure 2: 160/78 Code: 8480-6 Heart Rate 1: 76 bpm Respiratory Rate: 16 bpm Weight: 158 lbs 01/23/2012 Blood Pressure 1: 140/84 Code: 8480-6 BMI: 30.3 Code: 67039-6 Heart Rate 1: 68 bpm Height: 5' Respiratory Rate: 16 bpm SpO2: 98% Temperature: 37.0 (C ) / 98.6 (F) Weight: 158 lbs 01/02/2012 Blood Pressure 1: 142/92 Code: 8480-6 BMI: 30.7 Code: 89616-3 Heart Rate 1: 72 bpm Height: 5' Respiratory Rate: 16 bpm Weight: 160 lbs 12/20/2011 Blood Pressure 1: 170/84 Code: 8480-6 BMI: 30.0 Code: 77721-4 Heart Rate 1: 70 bpm Height: 5' [...] 06/12/2015 None rash Location-Head/Neck on the right taoism 06/12/2015 None rash Location-Head/Neck on the right [...] Findings Denies tachycardia 08/24/2013 None hypertension [facility] 07/26/2013 None hypertension Onset and [...] Factors position change 06/30/2013 None hypertension [facility] 06/30/2013 None hypertension Onset and [...] Encounters Encounter Performer Loca tion Codes Date ([id number]) 44647 EST. P ATIENT, LEVEL III Diagnosis: Allergic contact dermatitis due to plants, except food[ICD10: L23.7] [facility] CPT-4: 74117 03/21/2017 59540 EST. PATIENT, LEVEL III Diagnosis: Bitten or stung by nonvenomous insect and other nonvenomous arthropods, initial encounter[ICD10: W57.XXXA] Diagnosis: Cellulitis of left lower limb[ICD10: L03.116] Laura Varela MD, [facility] CPT-4: 46064 03/19/2017 ([id number]) 82056 EST. P ATIENT, LEVEL IV Diagnosis: Type 2 diabetes mellitus without complications[ICD10: E11.9] Diagnosis: Essential (primary) hypertension[ICD10: I10] Diagnosis: Other specified epidermal thickening[ICD10: L85.8] Zoya Varela MD, [facility] CPT-4: 13905 01/14/2017 16508 EST. PATIENT, LEVEL III Diagnosis: Glossodynia[ICD10: K14.6] Kacy Varela MD, [facility] CPT- 4: 01398 09/23/2016 ([id number]) 23932 EST. P ATIENT, LEVEL IV Diagnosis: Encounter for screening mammogram for malignant neoplasm of breast[ICD10: Z12.31] Diagnosis: Encounter for immunization[ICD10: Z23] Zoya Varela MD, [facility] CPT-4: 73501 09/16/2016 ([id number]) 31243 EST. P ATIENT, LEVEL III Diagnosis: Diseases of lips[ICD10: K13.0] Diagnosis: Allergic rhinitis due to pollen[ICD10: J30.1] Kacy Varela MD, [facility] CPT-4: 30870 06/25/2016 ([id number]) 47435 EST. P ATIENT, LEVEL III Diagnosis: Essential (primary) hypertension[ICD10: I10] Kacy Varela MD, [facility] CPT-4: 84237 06/17/2016 81473 EST. PATIENT, LEVEL IV Diagnosis: Other acute sinusitis[ICD10: J01.80] Diagnosis: Acute laryngopharyngitis[ICD10: J06.0] Diagnosis: Other allergic rhinitis[ICD10: J30.89] Laura Varela MD, [facility] CPT-4: 72036 04/03/2016 ([id number]) 16352 EST. P ATIENT, LEVEL IV Diagnosis: Essential (primary) hypertension[ICD10: I10] Diagnosis: Localized edema[ICD10: R60.0] Diagnosis: Polyneuropathy, unspecified[ICD10: G62.9] Zoya Varela MD, [facility] CPT-4: 70983 03/13/2016 ([id number]) 72456 EST. P ATIENT, LEVEL IV Diagnosis: Essential (primary) hypertension[ICD10: I10] Diagnosis: Localized edema[ICD10: R60.0] Diagnosis: Type 2 diabetes mellitus without complications[ICD10: E11.9] Zoya Varela MD, [facility] CPT-4: 80954 01/30/2016 93782 EST. PATIENT, LEVEL IV Diagnosis: Localized edema[ICD10: R60.0] Laura Varela MD, [facility] CPT-4: 06584 12/21/2015 ([id number]) 00296 EST. P ATIENT, LEVEL III Diagnosis: Essential (primary) hypertension[ICD10: I10] Diagnosis: Allergic rhinitis due to pollen[ICD10: J30.1] Diagnosis: Cervicalgia[ICD10: M54.2] Kacy Varela MD, [facility] CPT- 4: 61386 10/09/2015 98003 EST. PATIENT, LEVEL II Diagnosis: Contact dermatitis[ICD9: 692.9] Kacy Varela MD, [facility] CPT- 4: 41884 06/12/2015 ([id number]) 87511 EST. P ATIENT, LEVEL III Diagnosis: ESSENTIAL HYPERTENSION[ICD9: 401.9] Diagnosis: DIABETES TYPE II[ICD9: 250.00] Diagnosis: Anxiety[ICD9: 300.00] Kacy Varela MD, [facility] CPT-4: 17585 06/05/2015 ([id number]) 50981 EST. P ATIENT, LEVEL IV Diagnosis: Anxiety[ICD9: 300.00] Diagnosis: ALLERGIC RHINITIS[ICD9: 477.9] Diagnosis: ESOPHAGEAL REFLUX[ICD9: 530.81] Kacy Varela MD, [facility] CPT- 4: 49312 05/15/2015 ([id number]) 60309 EST. P ATIENT, LEVEL III Diagnosis: ESSENTIAL HYPERTENSION[ICD9: 401.9] Zoya Varela MD, [facility] CPT- 4: 56084 02/06/2015 ([id number]) 14964 EST. P ATIENT, LEVEL IV Diagnosis: ESSENTIAL HYPERTENSION[ICD9: 401.9] Diagnosis: EDEMA[ICD9: 782.3] Diagnosis: DIABETES TYPE II[ICD9: 250.00] [facility] CPT-4: 49184 01/10/2015 ([id number]) 46926 EST. P ATIENT, LEVEL IV Diagnosis: ESSENTIAL HYPERTENSION[ICD9: 401.9] Diagnosis: DIABETES TYPE II[ICD9: 250.00] [facility] CPT-4: 44182 07/19/2014 ([id number]) 33962 EST. P ATIENT, LEVEL III Diagnosis: Left ankle pain[ICD9: 719.47] Kacy Varela MD, [facility] CPT- 4: 67810 06/17/2014 ([id number]) 34166 EST. P ATIENT, LEVEL III Diagnosis: ESSENTIAL HYPERTENSION[ICD9: 401.9] Diagnosis: Elevated blood sugar[ICD9: 790.29] Zoya Varela MD, [facility] CPT- 4: 43314 04/19/2014 ([id number]) 89041 EST. P ATIENT, LEVEL IV Diagnosis: ESSENTIAL HYPERTENSION[SNOMED: 56259670] Diagnosis: ESOPHAGEAL REFLUX[ICD9: 530.81] Zoya Varela MD, [facility] CPT-4: 93664 04/11/2014 ([id number]) 01713 EST. P ATIENT, LEVEL IV Diagnosis: ALLERGIC RHINITIS[ICD9: 477.9] Diagnosis: Anxiety[ICD9: 300.00] Diagnosis: Dyspnea[ICD9: 786.09] Diagnosis: ESOPHAGEAL REFLUX[ICD9: 530.81] [facility] CPT- 4: 73672 03/10/2014 ([id number]) 64905 EST. P ATIENT, LEVEL III Diagnosis: ALLERGIC RHINITIS[ICD9: 477.9] Diagnosis: ESSENTIAL HYPERTENSION[SNOMED: 00353679] [facility] CPT-4: 17853 02/02/2014 ([id number]) 51195 EST. P ATIENT, LEVEL III Diagnosis: ESSENTIAL HYPERTENSION[SNOMED: 22410858] Diagnosis: Skin irritation[ICD9: 709.9] Zoya Varela MD, [facility] CPT-4: 07547 10/25/2013 ([id number]) 97072 EST. P ATIENT, LEVEL III Diagnosis: HYPERLIPIDEMIA[ICD9: 272.4] Diagnosis: ESSENTIAL HYPERTENSION[SNOMED: 54819722] Diagnosis: EDEMA[ICD9: 782.3] Diagnosis: Encounter for long-term (current) use of other medications[ICD9: V58.69] Zoya Varela MD, [facility] CPT-4: 84245 08/24/2013 ([id number]) 29489 EST. P ATIENT, LEVEL III Diagnosis: ESSENTIAL HYPERTENSION[SNOMED: 95248637] Zoya Varela MD, [facility] CPT-4: 60009 07/26/2013 ([id number]) 03603 EST. P ATIENT, LEVEL III Diagnosis: ESSENTIAL HYPERTENSION[SNOMED: 12729271] Zoya Varela MD, [facility] CPT-4: 61805 06/30/2013 ([id number]) 18336 EST. P ATIENT, LEVEL III Diagnosis: ESSENTIAL HYPERTENSION[SNOMED: 02770650] Zoya Varela MD, [facility] CPT-4: 83091 06/24/2013 ([id number]) 33970 EST. P ATIENT, LEVEL IV Diagnosis: ESSENTIAL HYPERTENSION[SNOMED: 49169607] Diagnosis: Leg pain[ICD9: 729.5] Diagnosis: Leg swelling[ICD9: 729.81] Zoya Varela MD, [facility] CPT-4: 99615 12/01/2012 ([id number]) 94529 EST. P ATIENT, LEVEL III Diagnosis: Shingles[ICD9: 053.9] Zoya Varela MD, [facility] CPT-4: 21789 10/19/2012 ([id number]) 47477 EST. P ATIENT, LEVEL IV Diagnosis: EDEMA[ICD9: 782.3] Diagnosis: ESSENTIAL HYPERTENSION[SNOMED: 08987709] Zoya Varela MD, C CPT-4: 70147 10/07/2012 ([id number]) 98918 EST. P ATIENT, LEVEL IV Diagnosis: ESSENTIAL HYPERTENSION[SNOMED: 43233611] Diagnosis: EDEMA[ICD9: 782.3] Diagnosis: Irritable bowel disease[ICD9: 564.1] Zoya Varela MD, [facility] CPT-4: 52341 2012 ([id number]) 13402 EST. P ATIENT, LEVEL III Diagnosis: ESSENTIAL HYPERTENSION[SNOMED: 04222867] Zoya Varela MD, [facility] CPT-4: 14477 08/18/2012 ([id number]) 68897 EST. P ATIENT, LEVEL III Diagnosis: ESSENTIAL HYPERTENSION[SNOMED: 49229797] Zoya Varela MD, [facility] CPT-4: 32772 08/04/2012 ([id number]) 11637 EST. P ATIENT, LEVEL IV Diagnosis: ESSENTIAL HYPERTENSION[SNOMED: 95045596] Diagnosis: Lumbago[ICD9: 724.2] Diagnosis: HYPERLIPIDEMIA[ICD9: 272.4] Zoya Varela MD, [facility] CPT-4: 45267 07/01/2012 ([id number]) 45206 EST. P ATIENT, LEVEL III Diagnosis: ESSENTIAL HYPERTENSION[SNOMED: 97785075] Zoya Varela MD, [facility] CPT-4: 93640 05/20/2012 ([id number]) 05895 EST. P ATIENT, LEVEL IV Diagnosis: ESSENTIAL HYPERTENSION[SNOMED: 92836888] Diagnosis: Hot flash, menopausal[ICD9: 627.2] Zoya Varela MD, [facility] CPT- 4: 99030 04/20/2012 65650 EST. PATIENT, LEVEL IV Diagnosis: SPASM OF MUSCLE[ICD9: 728.85] Diagnosis: Back pain[ICD9: 724.5] Diagnosis: ESSENTIAL HYPERTENSION[SNOMED: 63201375] Zoya Varela MD, [facility] CPT-4: 83530 03/10/2012 ([id number]) 45237 EST. P ATIENT, LEVEL IV Diagnosis: COUGH[ICD9: 786.2] Diagnosis: Allergic rhinitis[ICD9: 477.9] Diagnosis: Malignant reactive hypertension[ICD9: 401.0] Zoya Varela MD, C CPT-4: 19008 02/25/2012 ([id number]) 59476 EST. P ATIENT, LEVEL III Diagnosis: ESSENTIAL HYPERTENSION[SNOMED: 11190568] Zoya Varela MD, C CPT-4: 79115 02/19/2012 69699 EST. PATIENT, LEVEL IV Diagnosis: ESSENTIAL HYPERTENSION[SNOMED: 89291084] Diagnosis: Cough[ICD9: 786.2] Kacy Varela MD, [facility] CPT-4: 43850 01/23/2012 ([id number]) 23541 EST. P ATIENT, LEVEL IV Diagnosis: HYPERLIPIDEMIA[ICD9: 272.4] Diagnosis: ESSENTIAL HYPERTENSION[SNOMED: 34738562] Zoya Varela MD, C CPT-4: 81166 01/02/2012 OFFICE VISIT, NEW - LEVEL 4 Diagnosis: ESSENTIAL HYPERTENSION[SNOMED: 03438721] Diagnosis: HYPERLIPIDEMIA[ICD9: 272.4] Diagnosis: IMPACTED CERUMEN[ICD9: 380.4] Diagnosis: Muscle spasm[ICD9: 728.85] Diagnosis: CHRONIC TENSION HEADACHE[ICD9: 339.12] Diagnosis: Neck pain, chronic[ICD9: 723.1] Diagnosis: Change in skin mole[ICD9: 216.9] Zoya Varela MD, [facility] CPT-4: 17490 12/20/2011 Plan of Care Planned Activity Notes C odes Status Date Visit Plan: Poison Sarah -kenalog injectio n today in the office-start prednisone tomorrow pt is to use topical treatments as directed. Pt is cleanse clothing in hot water with soap, and call if symptoms do not improve or if they worsen. 03/21/2017 Appointment: Kacy Moses WPtel: [phone] (15 min) Moderate 03/21/2017 Patient Education: [...] in pain. 03/19/2017 Appointment: Laura Velasco WPtel: [facility] (15 min) Moderate 03/19/2017 Patient Education: Patient [...] in hearing. 01/22/2017 Appointment: Laura Velasco WPtel: [facility] [facility] - Annual Wellness Visit 01/22/2017 Appointment: [...] home. 01/14/2017 Appointment: Zoya Varela WPtel: [phone] [id number] (15 min) Moderate 01/14/2017 Patient Education: Patient Medication Summary Completed 01/14/2017 Patient Education: Obesity Completed 01/14/2017 Patient Education: Hypertension Completed 01/14/2017 Visit Plan: Dry mouth-oral pain-discusse d with Dr Varela-recommend patient start biotene mouth rinses to increase moisture-ok to decrease lyrica to see if symptoms improve-follow up in 2-3 weeks, sooner if needed. Patient verbalized understanding of plan. 09/23/2016 Appointment: Kacy Moses WPtel: [phone] [id number] [place] [address] (15 min) Moderate 09/23/2016 Patient Education: Patient [...] to medications. 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 06/25/2016 Appointment: Kacy Moses WPtel: [phone] [phone] (15 min) Moderate 06/25/2016 Patient Education: [...] spray. 04/03/2016 Appointment: Kacy Moses WPtel: [phone] [phone] (30 min) Complex 04/03/2016 Patient Education: [...] Completed 03/13/2016 Appointment: Zoya Varela WPtel: [phone] [facility] (15 min) Moderate 02/28/2016 Appointment: Zoya Varela WPtel: [phone] [facility] (15 min) Moderate 02/01/2016 Visit Plan: Hypertension [...] for treatment. 01/30/2016 App[facility]ment: [phone] ([facility] min) Moderate 01/30/2016 Patient Education: [...] at home. 02/06/2015 Appointment: Zoya Varela WPtel: [phone] [facility] Follow up 02/06/2015 Patient Education: Patient Medication [...] peripheral edema. 01/10/2015 Appointment: Zoya Varela WPtel: [phone] [facility] [facility] 01/10/2015 Patient Education: Patient Medication Summary Completed [...] controlled. 07/19/2014 Appointment: [facility]Ptel[phone] Follow up 07/19/2014 Patient Education: Patient Medication Summary Completed 07/19/2014 Patient Education: Hypertension Completed 07/19/2014 Care Plan: SCREENINGMAMMOGRAPHYDIGITAL [facility] : 89809-6 Ordered 07/19/2014 Visit Plan: Left ankle dauo-jouzeq-imchc mend rest ice and anti inflammatories as [...] at home. 04/19/2014 App[facility]ment: [phone] Diabetic education 04/19/2014 Patient Education: Patient [...] to medications. 04/11/2014 Appointment: [facility]la [facility]Ptel[phone] Follow up 04/11/2014 Patient Education: Patient [...] to spray in the nasal steroid allergy spray.Hmscgbc-mbcuwwfjpiqy-lrywkti xanax at bedtime Esophageal Reflux - the patient has been counseled against excessive intake of caffiene, spicy foods, peppermint, and cinnamon - all of which can exacerbate esophageal reflux.The patient is to take medications as prescribed and call the office if the symptoms are not improving. 03/10/2014 Appointment: [facility]arela [facility]Ptel[phone] Other 03/10/2014 Patient Education: Patient Medication [...] spray. 2013 Appointment: Kacy Moses WPtel: [phone] [phone] [place] [address] Other 02/02/2014 Patient Education: Patient Medication Summary [...] the site. 10/25/2013 Appointment: Zoya Varela WPtel: [facility] Follow up 10/25/2013 Patient Education: Patient Medication [...] BEDTIME 08/24/2013 Appointment: Zoya Varela WPtel: [phone] [facility] Follow up 08/24/2013 Patient Education: Patient Medication [...] acute concerns. 07/26/2013 Appointment: [facility]la [facility]Ptel[phone] Follow up 07/26/2013 Patient Education: Patient [...] NOT IMPROVE. 06/30/2013 Appointment: Zoya Varela WPtel: [facility] Other 06/30/2013 Patient Education: Patient Medication Summary [...] acute concerns. 06/24/2013 Appointment: Kacy Moses WPtel: [phone] Follow up 06/24/2013 Patient Education: Patient Medication Summary Completed 06/24/2013 Patient Education: Hypertension Completed 06/24/2013 Appointment: Zoya Varela WPtel: [facility] Other 03/23/2013 Visit Plan: Hypotension - pt is on chron ic antihypertensive medication - the medication has been adjusted down to attempt to alleviate the low blood pressures.Leg pain - Leg swelling - pt to have ultrasound on her right lower leg due to post-operative swelling and pain. 12/01/2012 Appointment: Zoya Varela WPtel: [address] [place], [place] [phone] Follow up 12/01/2012 Patient Education: Patient Medication Summary Completed 12/01/2012 Patient Education: Hypertension Completed 12/01/2012 Appointment: Zoya Varela WPtel: [address] [place], [place] [phone] Follow up 10/20/2012 Visit Plan: Shingles - [...] considered contagious. 10/19/2012 Appointment: Zoya Varela WPtel: [facility] [address] Other 10/19/2012 Patient Education: Patient Medication [...] peripheral edema. 10/07/2012 Appointment: Kacy Moses WPtel: [facility] [address] Other 10/07/2012 Patient Education: Hypertension Completed [...] peripheral edema. 2012 Appointment: Zoya Varela WPtel: [facility] [address] Other 2012 Patient Education: Patient Medication [...] EVENING. 08/18/2012 Appointment: [facility]Ptel[phone] Follow up 08/18/2012 Patient Education: Patient [...] each application on the knees. 08/04/2012 Appointment: oZya Varela WPtel: [phone] Follow up 08/04/2012 Patient Education: Patient [...] twice daily. 07/01/2012 Appointment: Zoya Varela WPtel: [address] [place], [place] [phone] Other 07/01/2012 Patient Education: Patient Medication Summary [...] two weeks 05/20/2012 Appointment: Zoya Varela WPtel: [address] [place], [place] [phone] Follow up 05/20/2012 Patient Education: Patient Medication Summary Completed 05/20/2012 Patient Education: High Blood Pressure: Essential Hypertension Completed 05/20/2012 Appointment: Zoya Varela WPtel: [address] [place], [place] [phone] Other 05/11/2012 Visit Plan: Hypertension - uncontrolled [...] bid dosing. 04/20/2012 Appointment: Zoya Varela WPtel: [address] [place], [place] [phone] Follow up 04/20/2012 Patient Education: Patient Medication [...] weeks. 03/10/2012 Appointment: Zoya Varela WPtel: [phone] [facility]66[facility] Other 03/10/2012 Patient Education: Patient Medication Summary [...] codeine. 02/25/2012 Appointment: Zoya Varela WPtel: [phone] [facility] Other 02/25/2012 Patient Education: Patient Medication Summary [...] office. 02/19/2012 Appointment: [facility]la [facility]Ptel: [phone] Other 02/19/2012 Patient Education: Patient Medication [...] office 01/23/2012 Appointment: [facility]Ptel[phone] Other 01/23/2012 Patient Education: Patient Medication Summary [...] TWICE DAILY. 01/02/2012 Appointment: Zoya Varela WPtel: [address] [place] [address] [facility] 01/02/2012 Patient Education: Patient Medication [...] 2 wks. 12/20/2011 Appointment: Zoya Varela WPtel: [phone] [facility] New Patient 12/20/2011 Patient Education: Patient [...] for treatment. . If the clonidine [facility] has the blood pressures at or [...] spray in the nasal steroid allergy spray. Ekhlefu-wjjaieasqfbh-nursdbw xanax at bedtime Esophageal Reflux - the [...]
[2020-05-26 03:08] LABS: CREATININE SERUM 0.99 MG/DL (0.60-1.30)
--- OUTSIDE RECORDS SUMMARY | 2020-05-26 03:09 | XMS REPORT | CCD ---
Author Author Natali Varela Organization [facility] Address [address] [place] [address] Phone Care Team Providers Care [employer] And [employer] Assembler Name Role Phone PP Unavailable CCM Unavailable Summary Purpose Interface Exchange Insurance Providers Payer name Policy type / Coverage type Covered constitution party ID Effective Begin Date Effective End Date WPS Medicare Part B Medicare Part B [id number] Unknown siOPTICAO INSURANCE CopyRightNow Medicare Part B [id number] Unknown Family history Mother Diagnosis Age At Onset Liver Failure Unknown Diabetes mellitus Type 2 Unknown Hyperlipidemia Unknown Hypertension Unknown Cancer Unknown Arthritis Unknown Father Diagnosis Age At Onset Liver Failure Unknown Cancer Unknown Social History Social History Element Codes Description Effective Dates Marital status Unknown M arried 12/12/2011 Number of children Unknown 3 12/12/[address]: 3194509 Former smoker quit in 199212/12/2011 Allergies, Adverse [...] Instructions cyclobenzaprine 10 m g tablet RxNorm: 278060 TAKE ONE TABLET BY MO UTH EVERY 8 HOURS NEEDED 04/07/2017 04/26/2017 Active Xanax 0.25 mg tablet RxNorm: 678461 1/2-1 Tablet(s) PO QDAY PRN 04/04/2017 06/02/2017 Active metoprolol tartrate 100 mg tablet RxNorm: 710673 TAKE ONE AND ONE-HALF (1 & 1/2) TABLET BY MOUTH EVERY MORNING AND TAKE TWO TABLETS BY MOUTH EVERY EVENING 03/28/2017 07/25/2017 Ac tive prednisone 10 mg tab lets in a dose pack RxNorm: 330153 1 Tablet(s) PO UD 03/21/2017 03/26/2017 In active 6-5-4-3-2-1 Kenalog 40 mg/mL sylvia pension for injection RxNorm: 2089210 2 Milliliter(s) Inj 03/21/2017 03/21/2017 In active doxycycline hyclate 100 mg capsule RxNorm: 1082049 1 Capsule(s) PO BID 03/19/2017 03/28/2017 In active cyclobenzaprine 10 m g tablet RxNorm: 565040 TAKE ONE TABLET BY MO [facility] EVERY 8 HOURS NEEDED 02/25/2017 03/16/2017 Inactive triamcinolone aceton pineda 0.1 % topical ointment RxNorm: 2205088 1 Application TOP TI D 02/21/2017 02/20/2017 Inactive triamcinolone aceton pineda 0.1 % topical ointment RxNorm: 8505668 1 Application TOP TI D 02/21/2017 03/02/2017 Inactive doxazosin 4 mg tablet RxNorm: 083405 TAKE ONE AND ONE-HALF (1 & 1/2) TABLET B Y MOUTH BY MOUTH TWO TIMES A DAY 02/14/2017 01/09/2018 Active cyclobenzaprine 10 m g tablet RxNorm: 206178 TAKE ONE TABLET BY MO UTH EVERY 8 HOURS NEEDED 01/27/2017 02/15/2017 Inactive ammonium lactate 12 % topical cream RxNorm: 877860 1 Application TOP BID 01/14/2017 02/12/2017 In active dispense one bottle of the cream potassium chloride E R 10 mEq tablet,extended release RxNorm: 026354 1 Tablet(s) PO PRN as needed with lasix 11/13/2016 No Stop Date Active prn swelling furosemide 20 mg tablet RxNorm: 764818 1 Tablet(s) PO daily as needed edema 11/13/2016 01/11/2017 In active metoprolol tartrate 100 mg tablet RxNorm: 031660 TAKE ONE AND ONE-HALF (1 & 1/2) TABLET BY MOUTH EVERY MORNING AND TAKE TWO TABLETS BY MOUTH EVERY EVENING 11/01/2016 03/27/2017 In active atorvastatin 20 mg t ablet RxNorm: 155029 TAKE ONE TABLET BY MO UTH DAILY 10/31/2016 04/28/2017 Ac tive cyclobenzaprine 10 m g tablet RxNorm: 299120 TAKE ONE TABLET BY MO UTH EVERY 8 HOURS NEEDED 10/25/2016 12/03/2016 Inactive Lyrica 25 mg capsule RxNorm: 283974 1 Tablet(s) PO BID 09/23/2016 01/13/2017 Inactive Lyrica 50 mg capsule RxNorm: 447784 1 Capsule(s) PO BID 09/16/2016 01/13/2017 Inactive amlodipine 5 mg tablet RxNorm: 186407 Tablet(s) TAKE ONE TABLET BY MOUTH DAILY 08/28/2016 07/23/2017 Ac tive cyclobenzaprine 10 m g tablet RxNorm: 639026 TAKE ONE TABLET BY MO UTH EVERY 8 HOURS NEEDED 08/05/2016 09/13/2016 Inactive Xanax 0.25 mg tablet RxNorm: 500774 1/2-1 Tablet(s) PO QDAY PRN 07/16/2016 04/03/2017 Inactive amlodipine 5 mg tablet RxNorm: 915429 TAKE ONE TABLET BY MOUTH DAILY 06/28/2016 08/26/2016 In active metoprolol tartrate 100 mg tablet RxNorm: 364995 Tablet(s) TAKE ONE AN D ONE-HALF (1 & 1/2) TABLET BY MOUTH EVERY MORNING AND TAKE TWO TABLETS BY MOUTH EVERY EVENING 05/02/2016 05/02/2016 Inactive metoprolol tartrate 100 mg tablet RxNorm: 264789 Tablet(s) PO TAKE ONE AND ONE-HALF (1 & 1/2) TABLET BY MOUTH EVERY MORNING AND TAKE TWO TABLETS BY MOUTH EVERY EVENING 05/02/2016 05/01/2016 Inactive metoprolol tartrate 100 mg tablet RxNorm: 129413 Tablet(s) PO TAKE ONE AND ONE-HALF (1 & 1/2) TABLET BY MOUTH EVERY MORNING AND TAKE TWO TABLETS BY MOUTH EVERY EVENING 05/02/2016 10/28/2016 Inactive tramadol 50 mg tablet RxNorm: 479146 1-2 Tablet(s) PO Q8 as needed 04/25/2016 No Stop Date Active atorvastatin 20 mg t ablet RxNorm: 615767 TAKE ONE TABLET BY MO UTH DAILY 04/25/2016 10/21/2016 In active cyclobenzaprine 10 m g tablet RxNorm: 731921 Tablet(s) PO TAKE ONE TABLET BY MOUTH EVERY 8 HOURS NEEDED 04/18/2016 06/16/2016 Inactive Kenalog 40 mg/mL sylvia pension for injection RxNorm: 8873977 1 Milliliter(s) Inj 04/04/2016 04/04/2016 In active Phenergan with Codei ne Syrup RxNorm: PO 04/03/2016 No Stop Date Active Zithromax Z-Kush 250 mg tablet RxNorm: 942593 1 Tablet(s) PO UD 04/03/2016 04/07/2016 Inactive 2 tabs on day 1 then 1 tab daily on days 2-5 amlodipine 5 mg tablet RxNorm: 184017 TAKE ONE TABLET BY MOUTH DAILY 03/27/2016 06/24/2016 In active Flexeril 10 mg tablet RxNorm: 539404 TAKE ONE TABLET BY MOUTH EVERY 8 HOURS A S NEEDED 03/14/2016 04/02/2016 Inactive Vitamin B-12 ER 2,00 0 mcg tablet,extended release RxNorm: 575588 1 Tablet(s) PO daily 03/13/2016 No Stop Date Active Vitamin B-12 ER 2,00 0 mcg tablet,extended release RxNorm: 834799 1 Tablet(s) PO daily 03/13/2016 No Stop Date Active gabapentin 100 mg ca psule RxNorm: 506373 1 Capsule(s) PO BID 03/13/2016 09/15/2016 Inactive Flexeril 10 mg tablet RxNorm: 602434 Tablet(s) TAKE ONE TABLET BY MOUTH EVERY 8 HOURS NEEDED 02/08/2016 02/27/2016 Inactive Xanax 0.25 mg tablet RxNorm: 425284 1/2-1 Tablet(s) PO QDAY PRN 02/08/2016 07/15/2016 Inactive amlodipine 5 mg tablet RxNorm: 152889 1 Tablet(s) PO daily 02/06/2016 03/26/2016 Inactive furosemide 20 mg tablet RxNorm: 489281 1 Tablet(s) PO daily 01/30/2016 06/16/2016 Inactive amlodipine 10 mg tablet RxNorm: 392516 1/2 Tablet(s) PO daily 01/30/2016 02/05/2016 Inactive doxazosin 4 mg tablet RxNorm: 509827 1.5 Tablet(s) PO BID 01/30/2016 01/23/2017 Inactive Flexeril 10 mg tablet RxNorm: 504152 TAKE ONE TABLET BY MOUTH EVERY 8 HOURS A S NEEDED 01/10/2016 01/29/2016 Inactive potassium chloride E R 10 mEq tablet,extended release RxNorm: 985043 1 Tablet(s) PO PRN as needed with lasix 12/25/2015 06/16/2016 Inactive prn swelling amlodipine 10 mg tablet RxNorm: 250339 TAKE ONE TABLET BY MOUTH EVERY MORNING 12/25/2015 12/24/2015 In active amlodipine 10 mg tablet RxNorm: 795799 TAKE ONE TABLET BY MOUTH EVERY MORNING 12/25/2015 01/29/2016 In active furosemide 20 mg tablet RxNorm: 917716 1/2 Tablet(s) PO daily as needed edema 12/21/2015 01/19/2016 In active pt needs to take 10meq potassium on days she takes the lasix metoprolol tartrate 100 mg tablet RxNorm: 785436 TAKE ONE AND ONE-HALF (1 & 1/2) TABLET BY MOUTH EVERY MORNING AND TAKE TWO TABLETS BY MOUTH EVERY EVENING 11/08/2015 12/07/2015 In active Flonase Allergy Reli ef 50 mcg/actuation nasal spray,suspension RxNorm: [place] as needed PLACE 2 SPRAYS IN EACH NOSTRIL DAILY 10/09/2015 02/05/2016 Inactive Flexeril 10 mg tablet RxNorm: 262335 1 Tablet(s) PO TID PRN TAKE ONE TABLET B Y MOUTH EVERY 8 HOURS NEEDED 10/09/2015 12/07/2015 Inactive alprazolam 0.5 mg ta blet RxNorm: 282078 TAKE ONE TABLET BY MO [facility] AT BEDTIME NEEDED FOR ANXIETY 08/29/2015 11/23/2015 Inactive Flonase Allergy Reli ef 50 mcg/actuation nasal spray,suspension RxNorm: PLACE 2 SPRAYS IN EACH NOSTRIL DAILY 07/06/2015 10/08/2015 Inactive Kenalog 40 mg/mL sylvia pension for injection RxNorm: 4005385 Milliliter(s) Inj 06/12/2015 06/12/2015 In active prednisone 10 mg tab lets in a dose pack RxNorm: 232679 1 Tablet(s) PO UD 06/12/2015 06/17/2015 In active 6-5-4-3-2-1 acyclovir 800 mg tablet RxNorm: 398147 1 Tablet(s) PO TID 06/12/2015 06/21/2015 Inactive Xanax 0.25 mg tablet RxNorm: 465151 1/2-1 Tablet(s) PO QDAY PRN 05/15/2015 02/07/2016 Inactive Flonase Allergy Reli ef 50 mcg/actuation nasal spray,suspension RxNorm: 2 [place] NASAL daily 05/15/2015 06/13/2015 Inactive Kenalog 40 mg/mL sylvia pension for injection RxNorm: 3783235 Milliliter(s) Inj 05/15/2015 05/15/2015 In active metoprolol tartrate 100 mg tablet RxNorm: 994635 TAKE ONE AND ONE-HALF (1 & 1/2) TABLET BY MOUTH EVERY MORNING AND TAKE TWO TABLETS BY MOUTH EVERY EVENING 05/07/2015 06/05/2015 In active metoprolol tartrate 100 mg tablet RxNorm: 139456 TAKE ONE AND ONE-HALF (1 & 1/2) TABLET BY MOUTH EVERY MORNING AND TAKE TWO TABLETS BY MOUTH EVERY EVENING 04/05/2015 05/04/2015 In active amlodipine 10 mg tablet RxNorm: 621416 TAKE ONE TABLET BY MOUTH EVERY MORNING 03/10/2015 12/04/2015 In active alprazolam 0.5 mg ta blet RxNorm: 579933 TAKE ONE TABLET BY MO UT EVERY NIGHT AT BEDTIME NEEDED FOR ANXIETY 02/23/2015 03/24/2015 Inactive (Response to an electronic controlled substance refill request - RxReferenceNumber: [id number]) alprazolam 0.5 mg ta blet RxNorm: 263682 1 Tablet(s) PO QHS as needed anxiety 02/23/2015 08/29/2015 In active (Response to an electronic controlled salas bstance refill request - RxReferenceNumber: [id number]) doxazosin 4 mg tablet RxNorm: 972538 TAKE ONE TABLET BY MOUTH TWICE A DAY 02/13/2015 01/29/2016 In active atorvastatin 20 mg t ablet RxNorm: 059892 TAKE ONE TABLET BY MO UTH EVERY DAY 01/19/2015 07/17/2015 In active atorvastatin 20 mg t ablet RxNorm: 665723 Tablet(s) TAKE ONE TA BLET BY MOUTH EVERY DAY 01/19/2015 01/18/2015 Inactive [SAVINGS FOR NON-COVERED DRUGS -- BIN:00 3585, PCN: ASPROD1, Group: XXXXX, ID# [id number], Questions: . THIS IS NOT INSURANCE.] Maxzide-25mg 37.5 mg -25 mg tablet RxNorm: 43097 1 Tablet(s) PO daily 01/10/2015 10/08/2015 Inactive [SAVINGS FOR NON-COVERED DRUGS -- BIN:00 3585, PCN: ASPROD1, Group: XXXXX, ID# [id number], Questions: . THIS IS NOT INSURANCE.] metoprolol tartrate 100 mg tablet RxNorm: 476068 TAKE ONE AND ONE-HALF (1 & 1/2) TABLET BY MOUTH EVERY MORNING AND TAKE TWO TABLETS BY MOUTH EVERY EVENING 12/05/2014 01/03/2015 In active Flexeril 10 mg tablet RxNorm: 076561 TAKE ONE TABLET BY MOUTH EVERY 8 HOURS A S NEEDED 10/31/2014 06/27/2015 Inactive alprazolam 0.5 mg ta blet RxNorm: 356442 1 Tablet(s) PO QHS TA KE ONE TABLET BY MOUTH EVERY NIGHT AT BEDTIME AND NEEDED FOR PANIC ATTACKS 10/21/2014 10/23/2014 Inactive (Appended: Controlled substance eRx refi ll - RxReferenceNumber: [id number]) alprazolam 0.5 mg ta blet RxNorm: 069787 TAKE ONE TABLET BY MO UTH EVERY NIGHT AT BEDTIME NEEDED FOR ANXIETY 10/20/2014 11/18/2014 Inactive (Response to an electronic controlled substance refill request - RxReferenceNumber: [id number]) amlodipine 10 mg tablet RxNorm: 607560 1 Tablet(s) PO QAM 09/09/2014 03/07/2015 Inactive now taking full tab [SAVINGS FOR UNINSURED PATIENTS -- BIN:[id number], PCN: ASPROD1, Group: [id number], ID# [id number], Process claim through [place], for questions: . THIS IS NOT INSURANCE.] metoprolol tartrate 100 mg tablet RxNorm: 277465 TAKE ONE AND ONE-HALF (1 & 1/2) TABLET BY MOUTH EVERY MORNING AND TAKE TWO TABLETS BY MOUTH EVERY EVENING 09/03/2014 10/02/2014 In active alprazolam 0.5 mg ta blet RxNorm: 664027 TAKE ONE TABLET BY MO UTH EVERY NIGHT AT BEDTIME AND NEEDED FOR PANIC ATTACKS 08/29/2014 09/12/2014 Inactive (Response to an electronic controlled substance refill request - RxReferenceNumber: [id number]) Zithromax Z-Kush 250 mg tablet RxNorm: 399589 1 Tablet(s) PO UD 07/26/2014 07/25/2014 Inactive 2 tabs on day 1 then 1 tab daily on days 2-5 Zithromax Z-Kush 250 mg tablet RxNorm: 724204 1 Tablet(s) PO UD 07/26/2014 07/30/2014 Inactive 2 tabs on day 1 then 1 tab daily on days 2-5 alprazolam 0.5 mg ta blet RxNorm: 084927 Tablet(s) PO TAKE ONE TABLET BY MOUTH EVERY NIGHT AT BEDTIME AND NEEDED FOR PANIC ATTACKS 07/08/2014 08/30/2014 Inactive (Appended: Controlled substance eRx refill - RxReferenceNumber: [id number]) atorvastatin 20 mg t ablet RxNorm: 840919 TAKE ONE TABLET BY MO UTH EVERY DAY 04/25/2014 01/18/2015 In active Carafate 1 gram tablet RxNorm: 812589 Tablet(s) PO TAKE ONE TABLET BY MOUTH FO UR TIMES A DAY 04/14/2014 10/08/2015 Inactive Fish Oil 1,000 mg ca psule RxNorm: 1 Capsule(s) PO TID 04/13/2014 10/08/2015 Inactive Flexeril 10 mg tablet RxNorm: 541540 1 Tablet(s) PO Q8 PRN 04/01/2014 04/10/2014 Inactive Carafate 1 gram tablet RxNorm: 318068 1 Tablet(s) PO QID 03/10/2014 04/08/2014 Inactive chlordiazepoxide-cli dinium 5 mg-2.5 mg capsule RxNorm: 253851 1 Capsule(s) PO TID P RN 03/10/2014 04/10/2014 Inactive doxazosin 4 mg tablet RxNorm: 721141 1 Tablet(s) PO BID 02/02/2014 02/12/2015 Inactive Kenalog 40 mg/mL sylvia pension for injection RxNorm: 5291995 Milliliter(s) Inj 02/02/2014 02/02/2014 In active atorvastatin 20 mg t ablet RxNorm: 626210 Tablet(s) PO TAKE ONE TABLET BY MOUTH EVERY DAY 01/10/2014 04/24/2014 Inactive alprazolam 0.5 mg ta blet RxNorm: 020833 Tablet(s) PO TAKE ONE TABLET BY MOUTH EVERY NIGHT AT BEDTIME AND NEEDED FOR PANIC ATTACKS 01/10/2014 07/07/2014 Inactive (Appended: Controlled substance eRx refill - RxReferenceNumber: [id number]) alprazolam 0.5 mg ta blet RxNorm: 720973 1 Tablet(s) PO QHS TA KE ONE TABLET BY MOUTH EVERY NIGHT AT BEDTIME AND NEEDED FOR PANIC ATTACKS 01/10/2014 10/20/2014 Inactive (Appended: Controlled substance eRx refi ll - RxReferenceNumber: [id number]) alprazolam 0.5 mg ta blet RxNorm: 124360 Tablet(s) PO TAKE ONE TABLET BY MOUTH EVERY NIGHT AT BEDTIME AND NEEDED FOR PANIC ATTACKS 01/10/2014 01/09/2014 Inactive (Appended: Controlled substance eRx refill - RxReferenceNumber: [id number]) Carafate 1 gram tablet RxNorm: 666223 1 Tablet(s) PO QID 12/16/2013 01/14/2014 Inactive Nexium 40 mg capsule ,delayed release RxNorm: 412272 Capsule(s) PO TAKE ON E CAPSULE BY MOUTH EVERY DAY 11/25/2013 03/12/2016 Inactive doxazosin 4 mg tablet RxNorm: 192534 1/2 Tablet(s) PO QPM 10/21/2013 10/20/2013 Inactive alprazolam 0.5 mg ta blet RxNorm: 104903 1 Tablet(s) PO as dir ected q hs and prn panic attacks 10/18/2013 01/10/2014 Inactive doxazosin 4 mg tablet RxNorm: 529170 1 q am 1/2 q pm Tablet(s) PO 09/21/2013 02/01/2014 Inactive doxazosin 4 mg tablet RxNorm: 373151 1 q am 1/2 q pm Tablet(s) PO 09/21/2013 09/20/2013 Inactive amlodipine 10 mg tablet RxNorm: 265345 1 Tablet(s) PO QAM 08/30/2013 08/24/2014 Inactive now taking full tab metoprolol tartrate 100 mg tablet RxNorm: 848562 2 Tablet(s) PO QPM 08/24/2013 10/22/2013 Inactive alprazolam 0.5 mg ta blet RxNorm: 972180 1 Tablet(s) PO as dir ected q hs and prn panic attacks 07/29/2013 10/17/2013 Inactive Benicar 20 mg tablet RxNorm: 666849 1 Tablet(s) PO daily 07/26/2013 08/09/2013 Inactive amlodipine 10 mg tablet RxNorm: 652086 1 Tablet(s) PO QAM 07/19/2013 08/29/2013 Inactive cyclobenzaprine 5 mg tablet RxNorm: 493366 1 Tablet(s) PO TID NC N one pill every 8 hours as needed for muscle spasms. 07/19/2013 03/31/2014 Inactive Kenalog 40 mg/mL Sylvia p for Injection RxNorm: 3661448 1 Milliliter(s) Inj 06/30/2013 06/30/2013 In active prednisone 10 mg tab lets in a dose pack RxNorm: 815886 1 Tablet(s) PO as doc tor directed take steroid taper as directed on box 06/30/2013 07/09/2013 Inactive disp ense one PACK meclizine 25 mg tablet RxNorm: 664401 1 Tablet(s) PO Q6 PRN 1/2 - 1 pill every 6 hours as needed for vertigo 06/30/2013 08/10/2013 Inactive metoprolol tartrate 100 mg tablet RxNorm: 331935 1.5 Tablet(s) PO BID 06/30/2013 08/23/2013 In active metoprolol tartrate 100 mg tablet RxNorm: 442992 1 Tablet(s) PO BID 06/24/2013 06/29/2013 Inactive metoprolol tartrate 100 mg tablet RxNorm: 941678 1 Tablet(s) PO daily 06/17/2013 06/23/2013 In active metoprolol tartrate 100 mg tablet RxNorm: 692074 1 Tablet(s) PO daily 06/17/2013 06/16/2013 In active Toprol XL 100 mg tab let,extended release RxNorm: 917707 Tablet(s) PO TAKE ONE AND ONE- HALF TABLET BY MOUTH EVERY MORNING AND ONE TABLET IN THE EVENING 05/05/2013 06/22/2013 In active alprazolam 0.5 mg ta blet RxNorm: 285699 1 Tablet(s) PO as dir ected q hs and prn panic attacks 04/06/2013 07/28/2013 Inactive doxazosin 4 mg tablet RxNorm: 399777 Tablet(s) PO TAKE ONE TABLET BY MOUTH EV KANE DAY 04/01/2013 09/20/2013 Inactive Toprol XL 100 mg tab let,extended release RxNorm: 546501 Tablet(s) PO TAKE ONE AND ONE- HALF TABLET BY MOUTH EVERY MORNING AND ONE TABLET IN THE EVENING 12/25/2012 05/04/2013 In active Lasix 20 mg tablet RxNorm: 676188 1 Tablet(s) PO QDAY PRN Take 1 tab daily x 3 days then as needed 12/02/2012 04/10/2014 Inactive potassium chloride E R 20 mEq tablet,extended release(part/cryst) RxNorm: 149196 1 Tablet(s) PO PRN 12/02/2012 10/04/2013 Inactive prn swelling alprazolam 0.5 mg ta blet RxNorm: 877742 1 Tablet(s) PO as dir ected q hs and prn panic attacks 12/01/2012 04/05/2013 Inactive amlodipine 10 mg tablet RxNorm: 016183 1/2 Tablet(s) PO QAM 12/01/2012 07/18/2013 Inactive fluconazole 150 mg t ablet RxNorm: 616441 1 Tablet(s) PO daily 11/16/2012 11/20/2012 Inactive fluconazole 150 mg t ablet RxNorm: 954956 1 Tablet(s) PO daily 11/16/2012 11/15/2012 Inactive Nexium 40 mg capsule ,delayed release RxNorm: 010838 1 Capsule(s) PO daily 10/23/2012 11/16/2013 In active acyclovir 400 mg tablet RxNorm: 729768 1 Tablet(s) PO TID 10/19/2012 10/28/2012 Inactive chlordiazepoxide-cli dinium 5 mg-2.5 mg capsule RxNorm: 347775 1 Capsule(s) PO TID P RN 2012 12/22/2013 Inactive Voltaren 1 % Topical Gel RxNorm: 954399 4 Gram(s) TOP QID pt is to use 2 grams to each hand and 4 grams to knees. 08/18/2012 04/10/2014 Inactive doxazosin 4 mg tablet RxNorm: 515009 1 Tablet(s) PO QAM 08/18/2012 10/16/2012 Inactive atorvastatin 20 mg t ablet RxNorm: 663969 1 Tablet(s) PO HS 08/12/2012 08/11/2012 Inactive may have #90 x3 infection atorvastatin 20 mg t ablet RxNorm: 447171 1 Tablet(s) PO HS 08/12/2012 09/05/2013 Inactive may have #90 x3 infection doxazosin 4 mg tablet RxNorm: 779180 1 Tablet(s) PO daily 08/11/2012 08/17/2012 Inactive clonidine 0.1 mg/24 hr Weekly Transderm Patch RxNorm: 413060 1 Patch TD QW 08/04/2012 08/10/2012 In active Influenza Virus Vacc ine 0.5 mL RxNorm: IM 08/04/2012 08/04/2012 Inactive cyclobenzaprine 5 mg tablet RxNorm: 132638 1 Tablet(s) PO TID NC N one pill every 8 hours as needed for muscle spasms. 07/13/2012 11/09/2012 Inactive cyclobenzaprine 5 mg tablet RxNorm: 835268 1 Tablet(s) PO TID NC N one pill every 8 hours as needed for muscle spasms. 07/09/2012 07/12/2012 Inactive gabapentin 100 mg ca psule RxNorm: 403221 1 Capsule(s) PO TID 07/01/2012 12/01/2012 Inactive atorvastatin 20 mg t ablet RxNorm: 091541 1/2 Tablet(s) PO daily 07/01/2012 08/11/2012 Inactive may of 90 day supply if cheaper Toprol XL 100 mg tab let,extended release RxNorm: 729440 Tablet(s) PO BID 11/2 in am and 1 in evening 07/01/2012 06/16/2013 Inactive 1 1/2 q am 1 in [place] alprazolam 0.5 mg ta blet RxNorm: 460368 1 Tablet(s) PO as dir ected q hs and prn panic attacks 06/24/2012 11/30/2012 Inactive amlodipine 10 mg tablet RxNorm: 004978 1 Tablet(s) PO QAM 06/19/2012 11/30/2012 Inactive benazepril 20 mg tablet RxNorm: 384822 1 Tablet(s) PO daily 06/19/2012 06/13/2013 Inactive one daily at noon Toprol XL 100 mg tab let,extended release RxNorm: 116675 Tablet(s) PO BID 06/19/2012 06/30/2012 In active 1 1/2 q am 1 in [place] Toprol XL 100 mg tab let,extended release RxNorm: 728936 1 1/2 Tablet(s) PO BI D 04/27/2012 06/18/2012 In active 90 or 30 day supply, whatever ins will a llow Lotrel 10 mg-20 mg Cap RxNorm: 874355 1 Capsule(s) PO daily 04/20/2012 08/04/2012 Inactive estradiol 0.5 mg Tab RxNorm: 608744 1 Tablet(s) PO BID 04/20/2012 12/02/2012 Inactive Toprol XL 100 mg 24 hr Tab RxNorm: 007227 1 1/2 Tablet(s) PO BID 04/14/2012 04/26/2012 Inactive Toprol XL 100 mg 24 hr Tab RxNorm: 607018 Tablet(s) PO daily 03/31/2012 04/13/2012 Inactive new directions: one q am 1/2 every evepl ease put on file until she needs filled Lipitor 10 mg tablet RxNorm: 011687 1 Tablet(s) PO daily 03/31/2012 12/02/2012 Inactive march of day supply if cheaper Toprol XL 100 mg 24 hr Tab RxNorm: 212947 1 Tablet(s) PO daily 03/11/2012 03/30/2012 Inactive Boniva 150 mg Tab RxNorm: 079315 1 Tablet(s) PO weekly 02/19/2012 12/02/2012 Inactive Detrol LA 4 mg capsu le,extended release RxNorm: 734997 1 Capsule(s) PO daily 02/19/2012 03/12/2016 In active doxycycline hyclate 100 mg Tab RxNorm: 499913 1 Tablet(s) PO BID 01/23/2012 02/25/2012 Inactive Rocephin 500 mg Solu tion for Injection RxNorm: 078545 1 Milliliter(s) Inj 01/23/2012 01/23/2012 In active Kenalog 40 mg/mL Sylvia p for Injection RxNorm: 2172367 1 Milliliter(s) Inj 01/23/2012 01/23/2012 In active cyclobenzaprine 5 mg tablet RxNorm: 755995 1 Tablet(s) PO TID NC N one pill every 8 hours as needed for muscle spasms. 12/20/2011 04/17/2012 Inactive clonidine 0.1 mg Tab RxNorm: 600734 1 Tablet(s) PO BID 12/20/2011 02/25/2012 Inactive Vitamin D3 5,000 uni t tablet RxNorm: 536392 1 Tablet(s) PO daily No Start Date Active Nexium 24HR 22.3 mg capsule,delayed release RxNorm: 432660 1 Capsule(s) PO daily as needed No Start Date Active Fish Oil 360 mg-1,20 0 mg capsule,delayed release RxNorm: 1 Capsule(s) PO daily No Start Date Active Lotrel 10 mg-20 mg Cap RxNorm: 366439 1 Capsule(s) PO daily No Start Date 02/24/2012 Inactive benazepril 20 mg tablet RxNorm: 904315 1 Tablet(s) PO No Start Date 06/18/2012 Inactive one daily at noon Vimovo 500 mg-20 mg multiphase, immed & delay rel Tab RxNorm: 937114 1 Tablet(s) PO BID No Start Date 12/01/2012 Inactive B12 1000 mcg RxNorm: 2 IM daily No Start Date 03/12/2016 Inactive Fish Oil 1,000 mg ca psule RxNorm: 1 Capsule(s) PO BID No Start Date 04/12/2014 Inactive Benicar 40 mg tablet RxNorm: 291599 1 Tablet(s) PO daily No Start Date 10/24/2013 Inactive Carafate 1 gram tablet RxNorm: 784294 Oral No Start Date 12/15/2013 Inactive Vitamin B-12 1,000 m cg tablet RxNorm: 300086 1 Tablet(s) PO daily No Start Date 03/12/2016 Inactive amlodipine 10 mg tablet RxNorm: 811556 1 Tablet(s) PO daily No Start Date 06/18/2012 Inactive Phenergan VC-Codeine 6.25 mg-5 mg-10 mg/5 mL Syrup RxNorm: 321593 5-10 Milliliter(s) PO Q6 PRN No Start Date 04/10/2014 Inactive Celebrex 200 mg capsule RxNorm: 459877 1 Capsule(s) PO daily No Start Date 10/08/2015 Inactive Percocet 5 mg-325 mg tablet RxNorm: 7001996 1-2 Tablet(s) PO Q6 PRN No Start Date 06/16/2014 Inactive Exforge 10 mg-320 mg Tab RxNorm: 182432 1 Tablet(s) PO daily sample No Start Date 05/20/2012 Inactive Lipitor 10 mg Tab RxNorm: 513867 1 Tablet(s) PO daily No Start Date 03/30/2012 Inactive tramadol 50 mg tablet RxNorm: 719556 1-2 Tablet(s) PO Q8 as needed No Start Date 04/24/2016 Inactive Lasix 20 mg tablet RxNorm: 822133 1 Tablet(s) PO QDAY PRN Take 1 tab daily x 3 days then as needed No Start Date 12/01/2012 Inactive potassium chloride E R 20 mEq tablet,extended release(part/cryst) RxNorm: 4594202 1 Tablet(s) PO QDAY PRN No Start [place] e 12/01/2012 Inactive Toprol XL 100 mg 24 hr Tab RxNorm: 517742 1 Tablet(s) PO daily No Start Date 03/10/2012 Inactive MIDRIN 325 mg-65 mg- 100 mg Cap RxNorm: 816696 1 Capsule(s) PO PRN No Start Date 05/20/2012 Inactive Nexium 40 mg capsule ,delayed release RxNorm: 190742 1 Capsule(s) PO daily No Start Date 10/22/2012 Inactive Detrol LA 4 mg 24 hr Cap RxNorm: 623749 Oral No S tart Date 02/18/2012 Inactive Boniva 150 mg Tab RxNorm: 841504 Oral No Start Date 02/18/2012 Inactive Flexeril 10 mg tablet RxNorm: 702155 1 Tablet(s) PO Q8 PRN No Start Date 03/31/2014 Inactive clidinium bromide Oral RxNorm: Oral No Start Date 12/01/2012 Inactive alprazolam 0.5 mg ta blet RxNorm: 620185 1 Tablet(s) PO as dir ected q hs and prn panic attacks No Start Date 06/23/2012 Inactive chlordiazepoxide Oral RxNorm: Oral No Start Date 12/01/2012 Inactive metoprolol tartrate 100 mg tablet RxNorm: 846381 Tablet(s) PO TAKE ONE AND ONE-HALF (1 & 1/2) TABLET BY MOUTH EVERY MORNING AND TAKE TWO TABLETS BY MOUTH EVERY EVENING No Start Date 08/03/2014 Inactive furosemide 20 mg tablet RxNorm: 672940 1 Tablet(s) PO daily No Start Date 01/29/2016 Inactive Calcium Oral RxNorm: Oral No Start Date 03/12 Inactive Nasonex 50 mcg/actua tion [place] RxNorm: 199762 1 [place] NASAL BID No Start Date 04/10/2014 Inactive Medication Administered Medication Codes Instruc tions Start Date Status Kenalog 40 mg/mL suspension for injection RxNorm: 7974427 2Milliliter 03/21/2017 N o longer Active Kenalog 40 mg/mL suspension for injection RxNorm: 7035018 1Milliliter 04/04/2016 N o longer Active Kenalog 40 mg/mL suspension for injection RxNorm: 9235916 Milliliter 06/12/2015 No longer Active Kenalog 40 mg/mL suspension for injection RxNorm: 8811997 Milliliter 05/15/2015 No longer Active Kenalog 40 mg/mL suspension for injection RxNorm: 4643004 Milliliter 02/02/2014 No longer Active Kenalog 40 mg/mL Susp for Injection RxNorm: 8828845 1Milliliter 06/30/2013 N o longer Active Influenza Virus Vaccine 0.5 mL RxNorm: 08/04/2012 No longer Active Rocephin 500 mg Solution for Injection RxNorm: 119491 1Milliliter 01/23/2012 N o longer Active Kenalog 40 mg/mL Susp for Injection RxNorm: 6984665 1Milliliter 01/23/2012 N o longer Active Immunizations [...] 02/19/2012 cough 01/23/2012 cerumen 01/02/[address] [facility] on lipitor 2 weeks ago hypertension 12/20/2011 [...] Ord2 RDW 14.8 % 06/05/2015 Comp Metabolic Swn423 NA 138 mEq/L 06/05/2015 Comp Metabolic Hej604 K 4.3 mEq/L 06/05/2015 Comp Metabolic Dbo002 CL 100 mEq/L 06/05/2015 Comp Metabolic Qdb669 CO2 29.0 mEq/L 06/05/2015 Comp Metabolic Mnl221 AN ION GAP 13 06/05/2015 Comp Metabolic Tqn801 GL UCOSE 85 mg/dL 06/05/2015 Comp Metabolic Txw914 Cr eat 0.7 mg/dL 06/05/2015 Comp Metabolic Pkc126 eG FR 94 ml/min/1.73m2 06/05 Comp Metabolic Jsi219 BUN 16 mg/dL 06/05/2015 Comp Metabolic Kkh944 B/ C Ratio 24.2 Ratio 06/05/2015 Comp Metabolic Stw077 CA LCIUM 9.5 mg/dL 06/05/2015 Comp Metabolic Qay746 AL K PHOS 69 U/L 06/05/2015 Comp Metabolic Oby998 T(SGOT) 22 U/L 06/05/2015 Comp Metabolic Vjh767 AL T(SGPT) 26 U/L 06/05/2015 Comp Metabolic Zgx897 BI LI T 0.5 mg/dL 06/05/2015 Comp Metabolic Jhq320 AL BUMIN 4.2 g/dL 06/05/2015 Comp Metabolic Zpz196 TP RO 6.1 g/dL 06/05/2015 Comp Metabolic Sfs430 GL OB 1.9 g/dL 06/05/2015 Comp Metabolic Bdl870 A/ G Ratio 2.2 Ratio 06/05/2015 Comp Metabolic Zxx680 Os mo 276 mOsmo 06/05/2015 Tsh Ord6 hTSH II 1.99 uIU/mL 06/05/2015 Lipid Ord30 CHOL 171 mg/dL 06/05/2015 Lipid Ord30 HDL 55.0 mg/dl 06/05/2015 Lipid Ord30 TRIG 178 mg/dL 06/05/2015 Lipid Ord30 LDL 80 mg/dL 06/05/2015 Lipid Ord30 C/HDL 3.1 Ratio 06/05/2015 %Hba1C Jft126 % HbA1c 05021-2 5.7 % 06/05/2015 %Hba1C Xrs871 Gluc Ave 117 mg/dL 06/05/2015 A1C HPLC 3214641 A1C HPLC 79071-9 5.6 % 07/15/2014 GFR CALC 6759914 GFR AA >60 ML/MIN 07/15/2014 GFR CALC 9772626 GFR NON -AA >60 ML/MIN 07/15/2014 CHEM 14 20280507 AST 21 U/L 07/15/2014 CHEM 14 20280507 ALT 23 IU/L 07/15/2014 CHEM 14 20280507 BUN 14 MG/DL 07/15/2014 CHEM 14 3889171 ALBUMIN 4.2 GM/DL 07/15/2014 CHEM 14 6438250 CHLORIDE 104 MMOL/L 07/15/2014 CHEM 14 1986682 BILI TOT 0.4 MG/DL 07/15/2014 CHEM 14 6066590 ALK PHOS 88 U/L 07/15/2014 CHEM 14 7113676 SODIUM 140 MMOL/L 07/15/2014 CHEM 14 3153718 CREATINI NE 0.63 MG/DL 07/15/2014 CHEM 14 1104988 CALCIUM 9.4 MG/DL 07/15/2014 CHEM 14 1918835 POTASSIUM 4.0 MMOL/L 07/15/2014 CHEM 14 4652345 PROT TOT 6.4 GM/DL 07/15/2014 CHEM 14 2267154 GLUCOSE 90 MG/DL 07/15/2014 CHEM 14 9286511 BICARB 30 MMOL/L 07/15/2014 CHEM 14 1631337 ANION GAP 6 MEQ/L 07/15/2014 A1C HPLC 6540409 A1C HPLC 99195-2 6.0 % 04/13/2014 TSH 4471833 TSH 1.875 uIU/ML 04/12/2014 CHEM 14 7113324 AST 17 U/L 04/12/2014 CHEM 14 7607694 ALT 20 IU/L 04/12/2014 CHEM 14 8087641 BUN 14 MG/DL 04/12/2014 CHEM 14 0151468 ALBUMIN 4.2 GM/DL 04/12/2014 CHEM 14 6945026 CHLORIDE 104 MMOL/L 04/12/2014 CHEM 14 1504745 BILI TOT 0.3 MG/DL 04/12/2014 CHEM 14 5307630 ALK PHOS 80 U/L 04/12/2014 CHEM 14 0517300 SODIUM 141 MMOL/L 04/12/2014 CHEM 14 5265406 CREATINI NE 0.62 MG/DL 04/12/2014 CHEM 14 6089304 CALCIUM 9.4 MG/DL 04/12/2014 CHEM 14 0099175 POTASSIUM 3.5 MMOL/L 04/12/2014 CHEM 14 8879374 PROT TOT 6.5 GM/DL 04/12/2014 CHEM 14 2495362 GLUCOSE 89 MG/DL 04/12/2014 CHEM 14 2691507 BICARB 29 MMOL/L 04/12/2014 CHEM 14 6895557 ANION GAP 8 MEQ/L 04/12/2014 LIPID GRP HDL TE ST 59 MG/DL 04/12/2014 LIPID GRP 3935551 TRIG 177 MG/DL 04/12/2014 LIPID GRP 4895357 TEST L DL 106 MG/DL 04/12/2014 LIPID GRP CHOL 200 MG/DL 04/12/2014 LIPID GRP RCHOL/ HDL 3.39 RATIO 04/12/2014 CBC 2271665 WBC 4.6 10e9/L 04/12/2014 CBC 3226970 RBC 4.52 10e12/L 04/12/2014 CBC 2676347 HGB 13.1 g/dL 04/12/2014 CBC 9525065 HCT DET 39.2 % 04/12/2014 CBC 7056874 MCV 86.7 fL 04/12/2014 CBC 5378620 MCH 29.0 pg 04/12/2014 CBC 5082681 MCHC 33.4 g/dL 04/12/2014 CBC 3769226 PLT 233 10e9/L 04/12/2014 CBC 5970840 MPV 9.8 fL 04/12/2014 CBC 0764894 AN % 59.5 % 04/12/2014 CBC 6349816 LY % 28.6 % 04/12/2014 CBC 8430756 MON % 10.0 % 04/12/2014 CBC 7993444 EOS % 1.5 % 04/12/2014 CBC 7498934 BASO % 0.4 % 04/12/2014 CBC 3838136 RDW 13.7 % 04/12/2014 CBC 3485625 ABS AN 2.74 10e9/L 04/12/2014 CBC 2199607 ABS LYMPH 1.32 10e9/L 04/12/2014 CBC 0924138 ABS MONO 0.46 10e9/L 04/12/2014 CBC 9239527 ABS EOS 0.07 10e9/L 04/12/2014 CBC 6374472 ABS BASO 0.02 10e9/L 04/12/2014 CBC 0487940 RDW-SD 42.6 fL 04/12/2014 GFR CALC 2231946 GFR AA >60 ML/MIN 04/12/2014 GFR CALC 4856920 GFR NON -AA >60 ML/MIN 04/12/2014 LIPID GRP HDL TE ST 57 MG/DL 08/24/2013 LIPID GRP TRIG 183 MG/DL 08/24/2013 LIPID GRP TEST L DL 64 MG/DL 08/24/2013 LIPID GRP CHOL 158 MG/DL 08/24/2013 LIPID GRP RCHOL/ HDL 2.77 RATIO 08/24/2013 GFR CALC 9780553 GFR AA >60 ML/MIN 08/24/2013 GFR CALC 8111436 GFR NON -AA >60 ML/MIN 08/24/2013 CHEM 14 9489155 AST 13 U/L 08/24/2013 CHEM 14 4002078 ALT 15 IU/L 08/24/2013 CHEM 14 0124622 BUN 14 MG/DL 08/24/2013 CHEM 14 6325310 ALBUMIN 4.3 GM/DL 08/24/2013 CHEM 14 3848568 CHLORIDE 106 MMOL/L 08/24/2013 CHEM 14 1866616 BILI TOT 0.3 MG/DL 08/24/2013 CHEM 14 5233640 ALK PHOS 75 U/L 08/24/2013 CHEM 14 8734874 SODIUM 141 MMOL/L 08/24/2013 CHEM 14 4756268 CREATINI NE 0.56 MG/DL 08/24/2013 CHEM 14 4878979 CALCIUM 9.1 MG/DL 08/24/2013 CHEM 14 0238216 POTASSIUM 4.2 MMOL/L 08/24/2013 CHEM 14 3548748 PROT TOT 6.0 GM/DL 08/24/2013 CHEM 14 7659083 GLUCOSE 83 MG/DL 08/24/2013 CHEM 14 3577664 BICARB 28 MMOL/L 08/24/2013 CHEM 14 3542144 ANION GAP 7 MEQ/L 08/24/2013 CBC 2725278 WBC 4.7 10e9/L 08/24/2013 CBC 1405347 RBC 4.33 10e12/L 08/24/2013 CBC 5534147 HGB 12.5 g/dL 08/24/2013 CBC 3814311 HCT DET 38.2 % 08/24/2013 CBC 3374593 MCV 88.2 fL 08/24/2013 CBC 1163986 MCH 28.9 pg 08/24/2013 CBC 4310627 MCHC 32.7 g/dL 08/24/2013 CBC 0660085 PLT 218 10e9/L 08/24/2013 CBC 4310766 MPV 10.4 fL 08/24/2013 CBC 8328352 NA % 61.9 % 08/24/2013 CBC 6415185 LY % 24.8 % 08/24/2013 CBC 1438309 MON % 10.3 % 08/24/2013 CBC 6005502 EOS % 2.1 % 08/24/2013 CBC 6239344 BASO % 0.9 % 08/24/2013 CBC 1313711 RDW 14.6 % 08/24/2013 CBC 2457671 ABS AN 2.91 10e9/L 08/24/2013 CBC 5010287 ABS LYMPH 1.17 10e9/L 08/24/2013 CBC 8773621 ABS MONO 0.48 10e9/L 08/24/2013 CBC 3382613 ABS EOS 0.10 10e9/L 08/24/2013 CBC 6093416 ABS BASO 0.04 10e9/L 08/24/2013 CBC 7057957 RDW-SD 46.7 fL 08/24/2013 TSH 9934939 TSH 1.208 uIU/ML 08/24/2013 Review of Systems [...] No alteration of consciousness 04/03/2016 Psychiatric anxiety 0 11/2015 Ears/Nose/Throat/Neck postnasal drip 04/03/2016 Neurologic No [...] happy 12/01/2012 None Full Exam - General 1995 Musculoskeletal lower extremity Overall: knee benign 12/01/2012 [...] Date TRIAMCINOLONE ACET I [place] NOS CPT-4: U1078Crmqygt 03/21/2017 PPPS, SUBSEQ VISIT CPT-4: E6750Jeviupn 01/22/2017 ADMIN PNEUMOCOCCAL V ACCINE SNOMED CT: 32422640 CPT-4: Q8575Mtixxem 09/16/2016 Pneumococcal Polysac charide Vaccine, 23-Valent, Ad CPT-4: 17860Wgyvvic 09/16/2016 THER/PROPH/DIAG INJ SC/IM CPT-4: 48018Yulfuec 04/04/2016 TRIAMCINOLONE ACET I [place] NOS CPT-4: G1865Jgyrasl 04/04/2016 ADMIN INFLUENZA VIRU S VAC CPT-4: C9735Ewbwhnc 07/28/2015 FLU VACC 4 XIMENA 3 YRS PLUS IM Formatting Model/CDA Sections, Assigned to/Jen Cota SNOMED CT: 81277382 CPT-4: 66229Bqbbgcf 07/28/2015 TRIAMCINOLONE ACET I [place] NOS CPT-4: Q4142Xkgnmdp 06/12/2015 TRIAMCINOLONE ACET I [place] NOS CPT-4: F9454Bewdlvu 05/15/2015 ADMIN INFLUENZA VIRU S VAC CPT-4: L5015Umzyuqo 07/19/2014 FLU VAC NO PRSV 4 VA L 3 YRS+ Assigned to/Jen Cota CPT-4: 50672Ofqbdug 07/19/2014 TRIAMCINOLONE ACET I [place] NOS CPT-4: T8344Ikutfxk 02/02/2014 ROUTINE VENIPUNCTURE CPT-4: 38462Ppatdhv 08/24/2013 ADMIN INFLUENZA VIRU S VAC CPT-4: F8152Innkkof 07/26/2013 FLULAVAL VACC, 3 YRS & >, IM CPT-4: Q4408Rsarzpq 07/26/2013 TRIAMCINOLONE ACET I [place] NOS CPT-4: L7277Fzfarxr 06/30/2013 PRESCRIP TRANSMIT A ERX SY CPT-4: C0194Kjrlmtv 06/30/2013 PRESCRIP TRANSMIT A ERX SY CPT-4: B8578Mklsrgo 12/01/2012 PRESCRIP TRANSMIT A ERX SY CPT-4: Q5326Yluihzx 10/19/2012 PRESCRIP TRANSMIT A ERX SY CPT-4: S1076Pyaowpy 10/07/2012 PRESCRIP TRANSMIT A ERX SY CPT-4: T3956Ecsliuw 2012 PRESCRIP TRANSMIT A ERX SY CPT-4: M9584Jshntzx 08/18/2012 ADMIN INFLUENZA VIRU S VAC CPT-4: A6613Nfrjvyo 08/04/2012 FLULAVAL VACC, 3 YRS & >, IM CPT-4: A6316Mkoafhy 08/04/2012 PRESCRIP TRANSMIT A ERX SY CPT-4: N6251Axsqkot 08/04/2012 PRESCRIP TRANSMIT A ERX SY CPT-4: C4700Jvjifpa 07/01/2012 ROCEPHIN, PER 250 MG CPT-4: E0111Zhminwm 01/23/2012 TRIAMCINOLONE ACET I [place] NOS CPT-4: O1759Ykgubcw 01/23/2012 THER/PROPH/DIAG INJ SC/IM CPT-4: 08353Wpxtfzk 01/23/2012 REMOVE IMPACTED EAR WAX UNI CPT-4: 18058Pzvohvs 01/02/2012 ROUTINE VENIPUNCTURE CPT-4: 62405Desqdzp 12/20/2011 Vital Signs Date Vital 03/21/2017 Blood Pressure 1: 152/88 Code: 8480-6 Heart Rate 1: 70 bpm Height: SpO2: 98% Weight: 03/19/2017 Blood Pressure 1: 132/64 Code: 8480-6 BMI: 33.0 Code: 86268-7 Heart Rate 1: 64 bpm Height: 5' SpO2: 96% Weight: 172 lbs 01/22/2017 Blood Pressure 1: 120/68 Code: 8480-6 BMI: 33.4 Code: 31707-9 Heart Rate 1: 68 bpm Height: 5' SpO2: 96% Weight: 174 lbs 01/14/2017 Blood Pressure 1: 138/80 Code: 8480-6 BMI: 33.4 Code: 91408-4 Heart Rate 1: 69 bpm Height: 5' SpO2: 98% Weight: 174 lbs 09/23/2016 Blood Pressure 1: 138/70 Code: 8480-6 BMI: 33.6 Code: 95057-8 Heart Rate 1: 68 bpm Height: 5' SpO2: 98% Temperature: 36.4 (C ) / 97.5 (F) Weight: 175 lbs 09/16/2016 Blood Pressure 1: 124/74 Code: 8480-6 BMI: 33.6 Code: 99867-1 Heart Rate 1: 64 bpm Height: 5' SpO2: 97% Weight: 175 lbs 06/25/2016 Weigh t: 174 lbs 06/17/2016 Blood Pressure 1: 128/80 Code: 8480-6 BMI: 34.0 Code: 24917-3 Heart Rate 1: 76 bpm Height: 5' SpO2: 95% Weight: 177 lbs 04/03/2016 Blood Pressure 1: 138/72 Code: 8480-6 BMI: 34.2 Code: 71938-4 Heart Rate 1: 63 bpm Height: 5' SpO2: 96% Weight: 178 lbs 03/13/2016 Blood Pressure 1: 128/72 Code: 8480-6 BMI: 35.3 Code: 76849-2 Heart Rate 1: 71 bpm Height: 5' SpO2: 97% Weight: 184 lbs 01/30/2016 Blood Pressure 1: 134/72 Code: 8480-6 BMI: 35.2 Code: 00080-4 Heart Rate 1: 71 bpm Height: 5' SpO2: 96% Weight: 183 lbs 12/21/2015 Blood Pressure 1: 148/90 Code: 8480-6 BMI: 34.6 Code: 59014-1 Heart Rate 1: 89 bpm Height: 5' SpO2: 96% Weight: 180 lbs 10/09/2015 Blood Pressure 1: 124/76 Code: 8480-6 BMI: 34.6 Code: 20952-3 Heart Rate 1: 88 bpm Height: 5' SpO2: 96% Weight: 180 lbs 06/12/2015 Blood Pressure 1: 148/74 Code: 8480-6 BMI: 33.4 Code: 89771-0 Heart Rate 1: 70 bpm Height: 5' SpO2: 96% Weight: 174 lbs 06/05/2015 Blood Pressure 1: 142/82 Code: 8480-6 BMI: 33.2 Code: 51441-6 Heart Rate 1: 72 bpm Height: 5' Weight: 173 lbs 05/15/2015 Blood Pressure 1: 118/80 Code: 8480-6 BMI: 33.6 Code: 67368-7 Heart Rate 1: 82 bpm Height: 5' Weight: 175 lbs 02/06/2015 Blood Pressure 1: 122/76 Code: 8480-6 BMI: 34.6 Code: 48268-0 Heart Rate 1: 58 bpm Height: 5' Weight: 180 lbs 01/10/2015 Blood Pressure 1: 158/90 Code: 8480-6 Blood Pressure 2: 152/90 Code: 8480-6 BMI: 34.6 Code: 82600-0 Heart Rate 1: 68 bpm Height: 5' Weight: 180 lbs 07/19/2014 Blood Pressure 1: 142/78 Code: 8480-6 BMI: 33.6 Code: 74679-4 Heart Rate 1: 56 bpm Height: 5' Weight: 175 lbs 06/17/2014 Blood Pressure 1: 128/86 Code: 8480-6 Heart Rate 1: 66 bpm SpO2: 98% Weight: 172 lbs 04/19/2014 Blood Pressure 1: 152/82 Code: 8480-6 BMI: 32.5 Code: 86833-0 Heart Rate 1: 60 bpm Height: 5' Weight: 169 lbs 04/11/2014 Blood Pressure 1: 120/80 Code: 8480-6 BMI: 33.4 Code: 52540-0 Heart Rate 1: 64 bpm Height: 5' Weight: 174 lbs 03/10/2014 Blood Pressure 1: 136/64 Code: 8480-6 BMI: 32.7 Code: 12261-7 Heart Rate 1: 76 bpm Height: 5' Weight: 170 lbs 02/02/2014 Blood Pressure 1: 160/76 Code: 8480-6 BMI: 32.7 Code: 34071-7 Heart Rate 1: 64 bpm Height: 5' Weight: 170 lbs 10/25/2013 Blood Pressure 1: 164/82 Code: 8480-6 BMI: 31.9 Code: 37445-9 Heart Rate 1: 60 bpm Height: 5' Weight: 166 lbs 08/24/2013 Blood Pressure 1: 138/88 Code: 8480-6 Heart Rate 1: 80 bpm Weight: 07/26/2013 Blood Pressure 1: 154/70 Code: 8480-6 Heart Rate 1: 72 bpm Weight: 162 lbs 06/30/2013 Blood Pressure 1: 182/86 Code: 8480-6 Heart Rate 1: 80 bpm Weight: 06/24/2013 Blood Pressure 1: 148/68 Code: 8480-6 BMI: 31.3 Code: 86844-4 Heart Rate 1: 72 bpm Height: 5' [...] 1: 142/88 Code: 8480-6 BMI: 30.6 Code: 95332-6 Heart Rate 1: 64 bpm Height: 5' [...] 1: 180/96 Code: 8480-6 BMI: 30.5 Code: 96664-0 Heart Rate 1: 76 bpm Height: 5' Respiratory Rate: 16 bpm Weight: 159 lbs 02/19/2012 Blood Pressure 1: 150/70 Code: 8480-6 Blood Pressure 2: 160/78 Code: 8480-6 Heart Rate 1: 76 bpm Respiratory Rate: 16 bpm Weight: 158 lbs 01/23/2012 Blood Pressure 1: 140/84 Code: 8480-6 BMI: 30.3 Code: 73218-1 Heart Rate 1: 68 bpm Height: 5' Respiratory Rate: 16 bpm SpO2: 98% Temperature: 37.0 (C ) / 98.6 (F) Weight: 158 lbs 01/02/2012 Blood Pressure 1: 142/92 Code: 8480-6 BMI: 30.7 Code: 12668-1 Heart Rate 1: 72 bpm Height: 5' Respiratory Rate: 16 bpm Weight: 160 lbs 12/20/2011 Blood Pressure 1: 170/84 Code: 8480-6 BMI: 30.0 Code: 71645-4 Heart Rate 1: 70 bpm Height: 5' [...] Findings Denies tachycardia 08/24/2013 None hypertension Quality [facility] 07/26/2013 None hypertension Onset [...] Factors position change 06/30/2013 None hypertension Quality [facility] 06/30/2013 None hypertension Onset and Resolution ongoing 06/30/2013 None hypertension Blood Pressure Values pt checking blood pressure - see scanned document 06/30/2013 149-178/82 hypertension Quality [facility] 06/24/2013 patient states that her [...] Encounters Encounter Performer Loca tion Codes Date ([id number]) 70720 EST. P ATIENT, LEVEL III Diagnosis: Allergic contact dermatitis due to plants, except food[ICD10: L23.7] [facility] CPT-4: 62220 03/21/2017 43879 EST. PATIENT, LEVEL III Diagnosis: Bitten or stung by nonvenomous insect and other nonvenomous arthropods, initial encounter[ICD10: W57.XXXA] Diagnosis: Cellulitis of left lower limb[ICD10: L03.116] Laura Varela MD, [facility] CPT-4: 65163 03/19/2017 ([id number]) 38391 EST. P ATIENT, LEVEL IV Diagnosis: Type 2 diabetes mellitus without complications[ICD10: E11.9] Diagnosis: Essential (primary) hypertension[ICD10: I10] Diagnosis: Other specified epidermal thickening[ICD10: L85.8] Zoya Varela MD, [facility] CPT-4: 56619 01/14/2017 12037 EST. PATIENT, LEVEL III Diagnosis: Glossodynia[ICD10: K14.6] Kacy Varela MD, [facility] CPT- 4: 79563 09/23/2016 ([id number]) 14425 EST. P ATIENT, LEVEL IV Diagnosis: Encounter for screening mammogram for malignant neoplasm of breast[ICD10: Z12.31] Diagnosis: Encounter for immunization[ICD10: Z23] Zoya Varela MD, [facility] CPT-4: 02907 09/16/2016 ([id number]) 87304 EST. P ATIENT, LEVEL III Diagnosis: Diseases of lips[ICD10: K13.0] Diagnosis: Allergic rhinitis due to pollen[ICD10: J30.1] Kacy Varela MD, [facility] CPT-4: 13558 06/25/2016 ([id number]) 40535 EST. P ATIENT, LEVEL III Diagnosis: Essential (primary) hypertension[ICD10: I10] Kacy Varela MD, [facility] CPT-4: 25818 06/17/2016 46649 EST. PATIENT, LEVEL IV Diagnosis: Other acute sinusitis[ICD10: J01.80] Diagnosis: Acute laryngopharyngitis[ICD10: J06.0] Diagnosis: Other allergic rhinitis[ICD10: J30.89] Laura Varela MD, [facility] CPT-4: 10211 04/03/2016 ([id number]) 31169 EST. P ATIENT, LEVEL IV Diagnosis: Essential (primary) hypertension[ICD10: I10] Diagnosis: Localized edema[ICD10: R60.0] Diagnosis: Polyneuropathy, unspecified[ICD10: G62.9] Zoya Varela MD, [facility] CPT-4: 62135 03/13/2016 ([id number]) 22646 EST. P ATIENT, LEVEL IV Diagnosis: Essential (primary) hypertension[ICD10: I10] Diagnosis: Localized edema[ICD10: R60.0] Diagnosis: Type 2 diabetes mellitus without complications[ICD10: E11.9] Zoya Varela MD, [facility] CPT-4: 50961 01/30/2016 17882 EST. PATIENT, LEVEL IV Diagnosis: Localized edema[ICD10: R60.0] Laura Varela MD, [facility] CPT-4: 46475 12/21/2015 ([id number]) 77684 EST. P ATIENT, LEVEL III Diagnosis: Essential (primary) hypertension[ICD10: I10] Diagnosis: Allergic rhinitis due to pollen[ICD10: J30.1] Diagnosis: Cervicalgia[ICD10: M54.2] Kacy Varela MD, [facility] CPT- 4: 08360 10/09/2015 38323 EST. PATIENT, LEVEL II Diagnosis: Contact dermatitis[ICD9: 692.9] Kacy Varela MD, [facility] CPT- 4: 29492 06/12/2015 ([id number]) 13425 EST. P ATIENT, LEVEL III Diagnosis: ESSENTIAL HYPERTENSION[ICD9: 401.9] Diagnosis: DIABETES TYPE II[ICD9: 250.00] Diagnosis: Anxiety[ICD9: 300.00] Kacy Varela MD, [facility] CPT-4: 72011 06/05/2015 ([id number]) 39813 EST. P ATIENT, LEVEL IV Diagnosis: Anxiety[ICD9: 300.00] Diagnosis: ALLERGIC RHINITIS[ICD9: 477.9] Diagnosis: ESOPHAGEAL REFLUX[ICD9: 530.81] Kacy Varela MD, [facility] CPT- 4: 03032 05/15/2015 ([id number]) 83042 EST. P ATIENT, LEVEL III Diagnosis: ESSENTIAL HYPERTENSION[ICD9: 401.9] Zoya Varela MD, [facility] CPT- 4: 48912 02/06/2015 ([id number]) 52204 EST. P ATIENT, LEVEL IV Diagnosis: ESSENTIAL HYPERTENSION[ICD9: 401.9] Diagnosis: EDEMA[ICD9: 782.3] Diagnosis: DIABETES TYPE II[ICD9: 250.00] Zoya Varela MD, [facility] CPT-4: 04485 01/10/2015 ([id number]) 45453 EST. P ATIENT, LEVEL IV Diagnosis: ESSENTIAL HYPERTENSION[ICD9: 401.9] Diagnosis: DIABETES TYPE II[ICD9: 250.00] Zoya Varela MD, [facility] CPT-4: 84370 07/19/2014 ([id number]) 80409 EST. P ATIENT, LEVEL III Diagnosis: Left ankle pain[ICD9: 719.47] Kacy Varela MD, [facility] CPT- 4: 48853 06/17/2014 ([id number]) 18014 EST. P ATIENT, LEVEL III Diagnosis: ESSENTIAL HYPERTENSION[ICD9: 401.9] Diagnosis: Elevated blood sugar[ICD9: 790.29] Zoya Varela MD, [facility] CPT- 4: 32631 04/19/2014 ([id number]) 22152 EST. P ATIENT, LEVEL IV Diagnosis: ESSENTIAL HYPERTENSION[SNOMED: 99806996] Diagnosis: ESOPHAGEAL REFLUX[ICD9: 530.81] Zoya Varela MD, [facility] CPT-4: 14833 04/11/2014 ([id number]) 39497 EST. P ATIENT, LEVEL IV Diagnosis: ALLERGIC RHINITIS[ICD9: 477.9] Diagnosis: Anxiety[ICD9: 300.00] Diagnosis: Dyspnea[ICD9: 786.09] Diagnosis: ESOPHAGEAL REFLUX[ICD9: 530.81] Kacy Varela MD, [facility] CPT- 4: 23421 03/10/2014 ([id number]) 44352 EST. P ATIENT, LEVEL III Diagnosis: ALLERGIC RHINITIS[ICD9: 477.9] Diagnosis: ESSENTIAL HYPERTENSION[SNOMED: 26090411] Kacy Varela MD, [facility] CPT-4: 87695 02/02/2014 ([id number]) 72589 EST. P ATIENT, LEVEL III Diagnosis: ESSENTIAL HYPERTENSION[SNOMED: 79737628] Diagnosis: Skin irritation[ICD9: 709.9] Zoya Varela MD, [facility] CPT-4: 51029 10/25/2013 ([id number]) 62714 EST. P ATIENT, LEVEL III Diagnosis: HYPERLIPIDEMIA[ICD9: 272.4] Diagnosis: ESSENTIAL HYPERTENSION[SNOMED: 70176595] Diagnosis: EDEMA[ICD9: 782.3] Diagnosis: Encounter for long-term (current) use of other medications[ICD9: V58.69] Zoya Varela MD, [facility] CPT-4: 69393 08/24/2013 ([id number]) 29588 EST. P ATIENT, LEVEL III Diagnosis: ESSENTIAL HYPERTENSION[SNOMED: 82792248] Zoya Varela MD, C CPT-4: 88347 07/26/2013 ([id number]) 08869 EST. P ATIENT, LEVEL III Diagnosis: ESSENTIAL HYPERTENSION[SNOMED: 97339675] Zoya Varela MD, [facility] CPT-4: 45724 06/30/2013 ([id number]) 37012 EST. P ATIENT, LEVEL III Diagnosis: ESSENTIAL HYPERTENSION[SNOMED: 12435248] Zoya Varela MD, [facility] CPT-4: 36597 06/24/2013 ([id number]) 83510 EST. P ATIENT, LEVEL IV Diagnosis: ESSENTIAL HYPERTENSION[SNOMED: 46553435] Diagnosis: Leg pain[ICD9: 729.5] Diagnosis: Leg swelling[ICD9: 729.81] Zoya Varela MD, [facility] CPT-4: 13092 12/01/2012 ([id number]) 66098 EST. P ATIENT, LEVEL III Diagnosis: Shingles[ICD9: 053.9] Zoya Varela MD, [facility] CPT-4: 99675 10/19/2012 ([id number]) 48655 EST. P ATIENT, LEVEL IV Diagnosis: EDEMA[ICD9: 782.3] Diagnosis: ESSENTIAL HYPERTENSION[SNOMED: 23007135] Zoya Varela MD, C CPT-4: 46243 10/07/2012 ([id number]) 13536 EST. P ATIENT, LEVEL IV Diagnosis: ESSENTIAL HYPERTENSION[SNOMED: 47302186] Diagnosis: EDEMA[ICD9: 782.3] Diagnosis: Irritable bowel disease[ICD9: 564.1] Zoya Varela MD, [facility] CPT-4: 70780 2012 ([id number]) 73167 EST. P ATIENT, LEVEL III Diagnosis: ESSENTIAL HYPERTENSION[SNOMED: 18619937] Zoya Varela MD, C CPT-4: 68708 08/18/2012 ([id number]) 25598 EST. P ATIENT, LEVEL III Diagnosis: ESSENTIAL HYPERTENSION[SNOMED: 56487406] Zoya Varela MD, C CPT-4: 55333 08/04/2012 ([id number]) 01832 EST. P ATIENT, LEVEL IV Diagnosis: ESSENTIAL HYPERTENSION[SNOMED: 99334009] Diagnosis: Lumbago[ICD9: 724.2] Diagnosis: HYPERLIPIDEMIA[ICD9: 272.4] Zoya Varela MD, [facility] CPT-4: 22715 07/01/2012 ([id number]) 52872 EST. P ATIENT, LEVEL III Diagnosis: ESSENTIAL HYPERTENSION[SNOMED: 50115864] Zoya Varela MD, C CPT-4: 20332 05/20/2012 ([id number]) 17878 EST. P ATIENT, LEVEL IV Diagnosis: ESSENTIAL HYPERTENSION[SNOMED: 20478582] Diagnosis: Hot flash, menopausal[ICD9: 627.2] Zoya Varela MD, [facility] CPT- 4: 46805 04/20/2012 51232 EST. PATIENT, LEVEL IV Diagnosis: SPASM OF MUSCLE[ICD9: 728.85] Diagnosis: Back pain[ICD9: 724.5] Diagnosis: ESSENTIAL HYPERTENSION[SNOMED: 16781742] Zoya Varela MD, C CPT-4: 34953 03/10/2012 ([id number]) 30963 EST. P ATIENT, LEVEL IV Diagnosis: COUGH[ICD9: 786.2] Diagnosis: Allergic rhinitis[ICD9: 477.9] Diagnosis: Malignant reactive hypertension[ICD9: 401.0] Zoya Varela MD, C CPT-4: 33447 02/25/2012 ([id number] 73664 EST. P ATIENT, LEVEL III Diagnosis: ESSENTIAL HYPERTENSION[SNOMED: 78131185] Zoya Varela MD, C CPT-4: 85546 02/19/2012 35474 EST. PATIENT, LEVEL IV Diagnosis: ESSENTIAL HYPERTENSION[SNOMED: 86140236] Diagnosis: Cough[ICD9: 786.2] Kacy Varela MD, [facility] CPT-4: 31747 01/23/2012 ([id number]) 31709 EST. P ATIENT, LEVEL IV Diagnosis: HYPERLIPIDEMIA[ICD9: 272.4] Diagnosis: ESSENTIAL HYPERTENSION[SNOMED: 99072625] Zoya Varela MD, C CPT-4: 44945 01/02/2012 OFFICE VISIT, NEW - LEVEL 4 Diagnosis: ESSENTIAL HYPERTENSION[SNOMED: 63331915] Diagnosis: HYPERLIPIDEMIA[ICD9: 272.4] Diagnosis: IMPACTED CERUMEN[ICD9: 380.4] Diagnosis: Muscle spasm[ICD9: 728.85] Diagnosis: CHRONIC TENSION HEADACHE[ICD9: 339.12] Diagnosis: Neck pain, chronic[ICD9: 723.1] Diagnosis: Change in skin mole[ICD9: 216.9] Zoya Varela MD, [facility] CPT-4: 04171 12/20/2011 Plan of Care Planned Activity Notes C odes Status Date Visit Plan: Poison Sarah -kenalog injectio n today in the office-start prednisone tomorrow pt is to use topical treatments as directed. Pt is cleanse clothing in hot water with soap, and call if symptoms do not improve or if they worsen. 03/21/2017 Appointment: Kacy Moses WPtel: [address] [place], [place] [phone] (15 min) Moderate 03/21/2017 Patient Education: Patient [...] Laura Velasco WPtel: [facility]5 [id number] (15 min) Moderate 03/19/2017 Patient Education: [...] hearing. 01/22/2017 Appointment: Laura Velasco WPtel: [phone] [id number] [facility] - Annual Wellness Visit 01/22/2017 Appointment: [...] home. 01/14/2017 Appointment: Zoya Varela WPtel: [phone] [facility] (15 min) Moderate 01/14/2017 Patient Education: Patient Medication Summary Completed 01/14/2017 Patient Education: Obesity Completed 01/14/2017 Patient Education: Hypertension Completed 01/14/2017 Visit Plan: Dry mouth-oral pain-discusse d with Dr Varela-recommend patient start biotene mouth rinses to increase moisture-ok to decrease lyrica to see if symptoms improve-follow up in 2-3 weeks, sooner if needed. Patient verbalized understanding of plan. 09/23/2016 Appointment: [facility]se [facility]el[id number] [place] [address] (15 min) Moderate 09/23/2016 Patient Education: Patient [...] to medications. 09/16/2016 Appointment: Zoya Varela WPtel: [phone] (15 min) Moderate 09/16/2016 Patient Education: Patient Medication Summary Completed 09/16/2016 Patient Education: Obesity Completed 09/16/2016 Care Plan: SCREENINGMAMMOGRAPHYDIGITAL LOINC : 17059-1 Pending 09/16/2016 Visit Plan: Cracked/painful lips-bacteri al [...] any worse. 06/25/2016 Appointment: Kacy Moses WPtel: [facility]6 [phone] (15 min) Moderate 06/25/2016 Patient Education: Patient [...] spray. 04/03/2016 Appointment: Kacy Moses WPtel: [phone] [phone] (30 min) Complex 04/03/2016 Patient Education: Patient [...] Completed 03/13/2016 Appointment: Zoya Varela WPtel: [phone] [facility] (15 min) Moderate 02/28/2016 Appointment: Zoya Varela WPtel: [phone] [facility] (15 min) Moderate 02/01/2016 Visit Plan: [...] for treatment. 01/30/2016 Appointment: Zoya Varela WPtel: [phone] (15 min) Moderate 01/30/2016 Patient Education: Patient [...] home. 02/06/2015 Appointment: Zoya Varela WPtel: [phone] [facility] Follow up 02/06/2015 Patient Education: Patient [...] peripheral edema. 01/10/2015 Appointment: Zoya Varela WPtel: [phone] [facility] [facility] 01/10/2015 Patient Education: Patient Medication Summary Completed [...] controlled. 07/19/2014 Appointment: Zoya Varela WPtel: [phone] Follow up 07/19/2014 Patient Education: Patient Medication Summary Completed 07/19/2014 Patient Education: Hypertension Completed 07/19/2014 Care Plan: SCREENINGMAMMOGRAPHYDIGITAL [facility] : 09674-1 Ordered 07/19/2014 Visit Plan: Left ankle etlg-tsjotp-mbrgh mend rest ice and anti inflammatories as [...] home. 04/19/2014 Appointment: Kacy Moses WPtel: [phone] [phone] Diabetic education 04/19/2014 Patient Education: Patient [...] medications. 04/11/2014 Appointment: Zoya Varela WPtel: [phone] [facility] Follow up 04/11/2014 Patient Education: Patient Medication [...] to spray in the nasal steroid allergy spray.Qywekza-uvxvxjzpdgpp-mvzwans xanax at bedtime Esophageal Reflux - the patient has been counseled against excessive intake of caffiene, spicy foods, peppermint, and cinnamon - all of which can exacerbate esophageal reflux.The patient is to take medications as prescribed and call the office if the symptoms are not improving. 03/10/2014 Appointment: Zoya Varela WPtel: [phone] Other 03/10/2014 Patient Education: Patient Medication Summary [...] spray. 2013 Appointment: Kacy Moses WPtel: [phone] [id number] Other 02/02/2014 Patient Education: Patient Medication [...] the site. 10/25/2013 Appointment: Zoya Varela WPtel: [phone] Follow up 10/25/2013 Patient Education: Patient Medication [...] BEDTIME 08/24/2013 Appointment: Zoya Varela WPtel: [phone] [facility] Follow up 08/24/2013 Patient Education: Patient Medication [...] concerns. 07/26/2013 Appointment: Zoya Varela WPtel: [phone] Follow up 07/26/2013 Patient Education: Patient Medication [...] IMPROVE. 06/30/2013 Appointment: Zoya Varela WPtel: [phone] [facility] Other 06/30/2013 Patient Education: Patient Medication Summary [...] acute concerns. 06/24/2013 Appointment: Kacy Moses WPtel: [phone] [phone] Follow up 06/24/2013 Patient Education: Patient Medication Summary Completed 06/24/2013 Patient Education: Hypertension Completed 06/24/2013 Appointment: Zoya Varela WPtel: [facility]5 [facility] Other 03/23/2013 Visit Plan: Hypotension - pt is on chron ic antihypertensive medication - the medication has been adjusted down to attempt to alleviate the low blood pressures.Leg pain - Leg swelling - pt to have ultrasound on her right lower leg due to post-operative swelling and pain. 12/01/2012 Appointment: Zoya Varela WPtel: [facility]5 [facility] Follow up 12/01/2012 Patient Education: Patient Medication Summary Completed 12/01/2012 Patient Education: Hypertension Completed 12/01/2012 Appointment: Zoya Varela WPtel: [address] [place], [place] [phone] [place] Follow up 10/20/2012 Visit Plan: Shingles [...] considered contagious. 10/19/2012 Appointment: Zoya Varela WPtel: [phone] [facility]66[facility] Other 10/19/2012 Patient Education: Patient Medication [...] peripheral edema. 10/07/2012 Appointment: Kacy Moses WPtel: [facility] Other 10/07/2012 Patient Education: Hypertension Completed [...] peripheral edema. 2012 Appointment: Zoya Varela WPtel: [facility]0 [facility]66[facility] Other 2012 Patient Education: Patient Medication Summary [...] EVENING. 08/18/2012 Appointment: Zoya Varela WPtel: [phone] Follow up 08/18/2012 Patient Education: Patient Medication [...] knees. 08/04/2012 Appointment: Zoya Varela WPtel: [phone] Follow up 08/04/2012 Patient Education: Patient Medication [...] twice daily. 07/01/2012 Appointment: Zoya Varela WPtel: [address] [place], [place] [phone] Other 07/01/2012 Patient Education: Patient Medication Summary [...] two weeks 05/20/2012 Appointment: Zoya Varela WPtel: [address] [place], [place] [phone] Follow up 05/20/2012 Patient Education: Patient Medication Summary Completed 05/20/2012 Patient Education: High Blood Pressure: Essential Hypertension Completed 05/20/2012 Appointment: Zoya Varela WPtel: [address] [place], [place] [phone] Other 05/11/2012 Visit Plan: Hypertension - uncontrolled [...] bid dosing. 04/20/2012 Appointment: Zoya Varela WPtel: [address] [place], [place] [phone] Follow up 04/20/2012 Patient Education: Patient Medication [...] weeks. 03/10/2012 Appointment: Zoya Varela WPtel: [phone] Other 03/10/2012 Patient Education: Patient Medication [...] codeine. 02/25/2012 Appointment: Zoya Varela WPtel: [phone] [facility] Other 02/25/2012 Patient Education: Patient Medication [...] the office. 02/19/2012 Appointment: Zoya Varela WPtel: [phone] [facility] Other 02/19/2012 Patient Education: Patient Medication [...] the office 01/23/2012 Appointment: Kacy Moses WPtel: [phone] [phone] [place] [address] Other 01/23/2012 Patient Education: Patient Medication Summary [...] TWICE DAILY. 01/02/2012 Appointment: Zoya Varela WPtel: [facility]5 [facility] [facility] 01/02/2012 Patient Education: Patient Medication Summary [...] wks. 12/20/2011 Appointment: Zoya Varela WPtel: [phone] [facility] [place] New Patient 12/20/2011 Patient Education: Patient [...] to assure normal liver response to medications. Thigh high compressi on hose-on in [...] . Hypertension - well controlled - rebeka scott with current medications, continue with no added [...] further attempt to reduce peripheral edema. START ACYCLOVIR TODA Y AND START THE [...] as discussed. Patient verbalized understanding of plan. increase doxazosin t o 1.5 of the [...] for treatment. . If the clonidine p atc has the blood pressures at or below 120/80, then the pt is to stop her norvasc and call the clinic, pt is to rtc in 2 weeks. Apply the pennsaid 15 drops to each knee three times daily, rub in the pennsaid to hands after each application on the knees. DEXILANT 60MG DAILY- TAKE SAMPLES UNTIL GONE [...] as directed-also plan for xray left ankle PATIENT IS TO CHECK BLOOD PRESSURE AND [...] DAILY. Cough medication phenergan with codeine. . Hypertension - wel l controlled - [...] further attempt to reduce peripheral edema. . Shingles - Herpes Zoster - acute [...] to be uncontrolled, increase to bid dosing. . Sinusitis - Pt has acute infection [...] the nasal steroid allergy spray. . Cracked/painful sachi ps-bacterial culture today in the office-discussed keeping lips well moisturized-get new toothbrush, lip gloss, etc. Call if symptoms do not resolve or if any worse. . Elevated blood sug ars-diabetes and diet [...] blood pressure readings in a few weeks. take the carafate as a liquid - [...] heart healthy diet recommended. . Hypertension - [facility] ontrolled - the [...] use benadryl cream to the site. . Blood pressure hav ing a lot [...] DIZZINESS DOES NOT IMPROVE. . Hypertension - [facility] ontrolled - the [...] call if symptoms are not improving. . Hypertension - counts include [facility] ontrolled - the patient's medications have been [...] spray in the nasal steroid allergy spray. Qwfdayr-tvoortjshjon-wbmpavm xanax at bedtime Esophageal Reflux - the [...] CLONIDINE 0.1 mg by mouth TWICE DAILY. . Medicare Exam - to day we [...]
--- OUTSIDE RECORDS SUMMARY | 2020-05-26 03:11 | XMS REPORT | CCD ---
Author Author Natali Varela Organization [facility] Address [address] [place] [address] Phone Care Team Providers Care Statistical Financial Analyst Name Role Phone PP Unavailable CCM Unavailable Summary Purpose Interface Exchange Insurance Providers Payer name Policy type / Coverage type Covered libertarian ID Effective Begin Date Effective End Date WPS Medicare Part B Medicare Part B [id number] Unknown [email or web address]ANCE [employer] Medicare Part B [id number] Unknown Family history Mother Diagnosis Age At Onset Liver Failure Unknown Diabetes mellitus Type 2 Unknown Hyperlipidemia Unknown Hypertension Unknown Cancer Unknown Arthritis Unknown Father Diagnosis Age At Onset Liver Failure Unknown Cancer Unknown Social History Social History Element Codes Description Effective Dates Marital status Unknown M arried 12/12/2011 Number of children Unknown 3 12/12/[address]: 3730499 Former smoker quit in 199212/12/2011 Allergies, Adverse Reactions, Alerts Allergies, Adverse Reactions, Alerts data not found Past Medical History Illness Codes Condition Status Onset Date Resolved Date 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, except food ICD-9: [...] Date Stop Date Sta tus Fill Instructions Xanax 0.25 mg tablet RxNorm: 579209 1/2-1 Tablet(s) PO QDAY PRN 04/04/2017 06/02/2017 Active metoprolol tartrate 100 mg tablet RxNorm: 014308 TAKE ONE AND ONE-HALF (1 & 1/2) TABLET BY MOUTH EVERY MORNING AND TAKE TWO TABLETS BY MOUTH EVERY EVENING 03/28/2017 07/25/2017 Ac tive prednisone 10 mg tab lets in a dose pack RxNorm: 980296 1 Tablet(s) PO UD 03/21/2017 03/26/2017 In active 6-5-4-3-2-1 Kenalog 40 mg/mL sylvia pension for injection RxNorm: 6427498 2 Milliliter(s) Inj 03/21/2017 03/21/2017 In active doxycycline hyclate 100 mg capsule RxNorm: 2774813 1 Capsule(s) PO BID 03/19/2017 03/28/2017 In active cyclobenzaprine 10 m g tablet RxNorm: 914297 TAKE ONE TABLET BY [facility] EVERY 8 HOURS NEEDED 02/25/2017 03/16/2017 Inactive triamcinolone aceton pineda 0.1 % topical ointment RxNorm: 1887725 1 Application TOP TI D 02/21/2017 02/20/2017 Inactive triamcinolone aceton pineda 0.1 % topical ointment RxNorm: 5654740 1 Application TOP TI D 02/21/2017 03/02/2017 Inactive doxazosin 4 mg tablet RxNorm: 089974 TAKE ONE AND ONE-HALF (1 & 1/2) TABLET B Y MOUTH BY MOUTH TWO TIMES A DAY 02/14/2017 01/09/2018 Active cyclobenzaprine 10 m g tablet RxNorm: 149982 TAKE ONE TABLET BY MO [facility] EVERY 8 HOURS NEEDED 01/27/2017 02/15/2017 Inactive ammonium lactate 12 % topical cream RxNorm: 921445 1 Application TOP BID 01/14/2017 02/12/2017 In active dispense one bottle of the cream potassium chloride E R 10 mEq tablet,extended release RxNorm: 913633 1 Tablet(s) PO PRN as needed with lasix 11/13/2016 No Stop Date Active prn swelling furosemide 20 mg tablet RxNorm: 514532 1 Tablet(s) PO daily as needed edema 11/13/2016 01/11/2017 In active metoprolol tartrate 100 mg tablet RxNorm: 795989 TAKE ONE AND ONE-HALF (1 & 1/2) TABLET BY MOUTH EVERY MORNING AND TAKE TWO TABLETS BY MOUTH EVERY EVENING 11/01/2016 03/27/2017 In active atorvastatin 20 mg t ablet RxNorm: 878619 TAKE ONE TABLET BY MO UTH DAILY 10/31/2016 04/28/2017 Ac tive cyclobenzaprine 10 m g tablet RxNorm: 257712 TAKE ONE TABLET BY MO UTH EVERY 8 HOURS NEEDED 10/25/2016 12/03/2016 Inactive Lyrica 25 mg capsule RxNorm: 438480 1 Tablet(s) PO BID 09/23/2016 01/13/2017 Inactive Lyrica 50 mg capsule RxNorm: 415766 1 Capsule(s) PO BID 09/16/2016 01/13/2017 Inactive amlodipine 5 mg tablet RxNorm: 017162 Tablet(s) TAKE ONE TABLET BY MOUTH DAILY 08/28/2016 07/23/2017 Ac tive cyclobenzaprine 10 m g tablet RxNorm: 508431 TAKE ONE TABLET BY MO UTH EVERY 8 HOURS NEEDED 08/05/2016 09/13/2016 Inactive Xanax 0.25 mg tablet RxNorm: 493004 1/2-1 Tablet(s) PO QDAY PRN 07/16/2016 04/03/2017 Inactive amlodipine 5 mg tablet RxNorm: 213902 TAKE ONE TABLET BY MOUTH DAILY 06/28/2016 08/26/2016 In active metoprolol tartrate 100 mg tablet RxNorm: 424935 Tablet(s) TAKE ONE AN D ONE-HALF (1 & 1/2) TABLET BY MOUTH EVERY MORNING AND TAKE TWO TABLETS BY MOUTH EVERY EVENING 05/02/2016 05/02/2016 Inactive metoprolol tartrate 100 mg tablet RxNorm: 720650 Tablet(s) PO TAKE ONE AND ONE-HALF (1 & 1/2) TABLET BY MOUTH EVERY MORNING AND TAKE TWO TABLETS BY MOUTH EVERY EVENING 05/02/2016 05/01/2016 Inactive metoprolol tartrate 100 mg tablet RxNorm: 699830 Tablet(s) PO TAKE ONE AND ONE-HALF (1 & 1/2) TABLET BY MOUTH EVERY MORNING AND TAKE TWO TABLETS BY MOUTH EVERY EVENING 05/02/2016 10/28/2016 Inactive tramadol 50 mg tablet RxNorm: 827342 1-2 Tablet(s) PO Q8 as needed 04/25/2016 No Stop Date Active atorvastatin 20 mg t ablet RxNorm: 203271 TAKE ONE TABLET BY [facility] DAILY 04/25/2016 10/21/2016 In active cyclobenzaprine 10 m g tablet RxNorm: 693344 Tablet(s) PO TAKE ONE TABLET BY MOUTH EVERY 8 HOURS NEEDED 04/18/2016 06/16/2016 Inactive Kenalog 40 mg/mL sylvia pension for injection RxNorm: 7931014 1 Milliliter(s) Inj 04/04/2016 04/04/2016 In active Phenergan with Codei ne Syrup RxNorm: PO 04/03/2016 No Stop Date Active Zithromax Z-Kush 250 mg tablet RxNorm: 676767 1 Tablet(s) PO UD 04/03/2016 04/07/2016 Inactive 2 tabs on day 1 then 1 tab daily on days 2-5 amlodipine 5 mg tablet RxNorm: 392763 TAKE ONE TABLET BY MOUTH DAILY 03/27/2016 06/24/2016 In active Flexeril 10 mg tablet RxNorm: 643006 TAKE ONE TABLET BY MOUTH EVERY 8 HOURS A S NEEDED 03/14/2016 04/02/2016 Inactive Vitamin B-12 ER 2,00 0 mcg tablet,extended release RxNorm: 877583 1 Tablet(s) PO daily 03/13/2016 No Stop Date Active Vitamin B-12 ER 2,00 0 mcg tablet,extended release RxNorm: 581233 1 Tablet(s) PO daily 03/13/2016 No Stop Date Active gabapentin 100 mg ca psule RxNorm: 237652 1 Capsule(s) PO BID 03/13/2016 09/15/2016 Inactive Flexeril 10 mg tablet RxNorm: 064984 Tablet(s) TAKE ONE TABLET BY MOUTH EVERY 8 HOURS NEEDED 02/08/2016 02/27/2016 Inactive Xanax 0.25 mg tablet RxNorm: 986198 1/2-1 Tablet(s) PO QDAY PRN 02/08/2016 07/15/2016 Inactive amlodipine 5 mg tablet RxNorm: 964346 1 Tablet(s) PO daily 02/06/2016 03/26/2016 Inactive furosemide 20 mg tablet RxNorm: 174470 1 Tablet(s) PO daily 01/30/2016 06/16/2016 Inactive amlodipine 10 mg tablet RxNorm: 362020 1/2 Tablet(s) PO daily 01/30/2016 02/05/2016 Inactive doxazosin 4 mg tablet RxNorm: 772846 1.5 Tablet(s) PO BID 01/30/2016 01/23/2017 Inactive Flexeril 10 mg tablet RxNorm: 866910 TAKE ONE TABLET BY MOUTH EVERY 8 HOURS A S NEEDED 01/10/2016 01/29/2016 Inactive potassium chloride E R 10 mEq tablet,extended release RxNorm: 509917 1 Tablet(s) PO PRN as needed with lasix 12/25/2015 06/16/2016 Inactive prn swelling amlodipine 10 mg tablet RxNorm: 620186 TAKE ONE TABLET BY MOUTH EVERY MORNING 12/25/2015 12/24/2015 In active amlodipine 10 mg tablet RxNorm: 872652 TAKE ONE TABLET BY MOUTH EVERY MORNING 12/25/2015 01/29/2016 In active furosemide 20 mg tablet RxNorm: 925821 1/2 Tablet(s) PO daily as needed edema 12/21/2015 01/19/2016 In active pt needs to take 10meq potassium on days she takes the lasix metoprolol tartrate 100 mg tablet RxNorm: 062164 TAKE ONE AND ONE-HALF (1 & 1/2) TABLET BY MOUTH EVERY MORNING AND TAKE TWO TABLETS BY MOUTH EVERY EVENING 11/08/2015 12/07/2015 In active Flonase Allergy Reli ef 50 mcg/actuation nasal spray,suspension RxNorm: [place] as needed PLACE 2 SPRAYS IN EACH NOSTRIL DAILY 10/09/2015 02/05/2016 Inactive Flexeril 10 mg tablet RxNorm: 982060 1 Tablet(s) PO TID PRN TAKE ONE TABLET B Y MOUTH EVERY 8 HOURS NEEDED 10/09/2015 12/07/2015 Inactive alprazolam 0.5 mg ta blet RxNorm: 195392 TAKE ONE TABLET BY MO U[facility] AT BEDTIME NEEDED FOR ANXIETY 08/29/2015 11/24/2015 Inactive Flonase Allergy Reli ef 50 mcg/actuation nasal spray,suspension RxNorm: PLACE 2 SPRAYS IN EACH NOSTRIL DAILY 07/06/2015 10/08/2015 Inactive Kenalog 40 mg/mL sylvia pension for injection RxNorm: 3243616 Milliliter(s) Inj 06/12/2015 06/12/2015 In active prednisone 10 mg tab lets in a dose pack RxNorm: 362343 1 Tablet(s) PO UD 06/12/2015 06/17/2015 In active 6-5-4-3-2-1 acyclovir 800 mg tablet RxNorm: 174941 1 Tablet(s) PO TID 06/12/2015 06/21/2015 Inactive Xanax 0.25 mg tablet RxNorm: 840395 1/2-1 Tablet(s) PO QDAY PRN 05/15/2015 02/07/2016 Inactive Flonase Allergy Reli ef 50 mcg/actuation nasal spray,suspension RxNorm: 2 [place] NASAL daily 05/15/2015 06/13/2015 Inactive Kenalog 40 mg/mL sylvia pension for injection RxNorm: 1742532 Milliliter(s) Inj 05/15/2015 05/15/2015 In active metoprolol tartrate 100 mg tablet RxNorm: 316175 TAKE ONE AND ONE-HALF (1 & 1/2) TABLET BY MOUTH EVERY MORNING AND TAKE TWO TABLETS BY MOUTH EVERY EVENING 05/07/2015 06/05/2015 In active metoprolol tartrate 100 mg tablet RxNorm: 453525 TAKE ONE AND ONE-HALF (1 & 1/2) TABLET BY MOUTH EVERY MORNING AND TAKE TWO TABLETS BY MOUTH EVERY EVENING 04/05/2015 05/04/2015 In active amlodipine 10 mg tablet RxNorm: 870751 TAKE ONE TABLET BY MOUTH EVERY MORNING 03/10/2015 12/04/2015 In active alprazolam 0.5 mg ta blet RxNorm: 916376 TAKE ONE TABLET BY MO [facility] EVERY NIGHT AT BEDTIME NEEDED FOR ANXIETY 02/23/2015 03/24/2015 Inactive (Response to an electronic controlled substance refill request - RxReferenceNumber: [id number]) alprazolam 0.5 mg ta blet RxNorm: 674119 1 Tablet(s) PO QHS as needed anxiety 02/23/2015 08/29/2015 In active (Response to an electronic controlled salas bstance refill request - RxReferenceNumber: [id number]) doxazosin 4 mg tablet RxNorm: 740572 TAKE ONE TABLET BY MOUTH TWICE A DAY 02/13/2015 01/29/2016 In active atorvastatin 20 mg t ablet RxNorm: 125011 TAKE ONE TABLET BY MO U[facility] EVERY DAY 01/19/2015 07/17/2015 In active atorvastatin 20 mg t ablet RxNorm: 290011 Tablet(s) TAKE ONE TA BLET BY MOUTH EVERY DAY 01/19/2015 01/18/2015 Inactive [SAVINGS FOR NON-COVERED DRUGS -- BIN:00 3585, PCN: ASPROD1, Group: XXXXX, ID# [id number], Questions: . THIS IS NOT INSURANCE.] Maxzide-25mg 37.5 mg -25 mg tablet RxNorm: 00167 1 Tablet(s) PO daily 01/10/2015 10/08/2015 Inactive [SAVINGS FOR NON-COVERED DRUGS -- BIN:00 3585, PCN: ASPROD1, Group: XXXXX, ID# [id number], Questions: . THIS IS NOT INSURANCE.] metoprolol tartrate 100 mg tablet RxNorm: 730016 TAKE ONE AND ONE-HALF (1 & 1/2) TABLET BY MOUTH EVERY MORNING AND TAKE TWO TABLETS BY MOUTH EVERY EVENING 12/05/2014 01/03/2015 In active Flexeril 10 mg tablet RxNorm: 590286 TAKE ONE TABLET BY MOUTH EVERY 8 HOURS A S NEEDED 10/31/2014 06/27/2015 Inactive alprazolam 0.5 mg ta blet RxNorm: 115641 1 Tablet(s) PO QHS TA KE ONE TABLET BY MOUTH EVERY NIGHT AT BEDTIME AND NEEDED FOR PANIC ATTACKS 10/21/2014 10/23/2014 Inactive (Appended: Controlled substance eRx refi ll - RxReferenceNumber: [id number]) alprazolam 0.5 mg ta blet RxNorm: 946082 TAKE ONE TABLET BY MO U[facility] EVERY NIGHT AT BEDTIME NEEDED FOR ANXIETY 10/20/2014 11/18/2014 Inactive (Response to an electronic controlled substance refill request - RxReferenceNumber: [id number]) amlodipine 10 mg tablet RxNorm: 708076 1 Tablet(s) PO QAM 09/09/2014 03/07/2015 Inactive now taking full tab [SAVINGS FOR UNINSURED PATIENTS -- BIN:[id number], PCN: ASPROD1, Group: [id number], ID# [id number], Process claim through [id number], for questions: . THIS IS NOT INSURANCE.] metoprolol tartrate 100 mg tablet RxNorm: 309310 TAKE ONE AND ONE-HALF (1 & 1/2) TABLET BY MOUTH EVERY MORNING AND TAKE TWO TABLETS BY MOUTH EVERY EVENING 09/03/2014 10/02/2014 In active alprazolam 0.5 mg ta blet RxNorm: 179991 TAKE ONE TABLET BY MO UTH EVERY NIGHT AT BEDTIME AND NEEDED FOR PANIC ATTACKS 08/29/2014 09/12/2014 Inactive (Response to an electronic controlled substance refill request - RxReferenceNumber: [id number]) Zithromax Z-Kush 250 mg tablet RxNorm: 789638 1 Tablet(s) PO UD 07/26/2014 07/25/2014 Inactive 2 tabs on day 1 then 1 tab daily on days 2-5 Zithromax Z-Kush 250 mg tablet RxNorm: 113220 1 Tablet(s) PO UD 07/26/2014 07/30/2014 Inactive 2 tabs on day 1 then 1 tab daily on days 2-5 alprazolam 0.5 mg ta blet RxNorm: 608078 Tablet(s) PO TAKE ONE TABLET BY MOUTH EVERY NIGHT AT BEDTIME AND NEEDED FOR PANIC ATTACKS 07/08/2014 08/30/2014 Inactive (Appended: Controlled substance eRx refill - RxReferenceNumber: [id number]) atorvastatin 20 mg t ablet RxNorm: 621580 TAKE ONE TABLET BY MO UTH EVERY DAY 04/25/2014 01/18/2015 In active Carafate 1 gram tablet RxNorm: 020103 Tablet(s) PO TAKE ONE TABLET BY MOUTH FO UR TIMES A DAY 04/14/2014 10/08/2015 Inactive Fish Oil 1,000 mg ca psule RxNorm: 1 Capsule(s) PO TID 04/13/2014 10/08/2015 Inactive Flexeril 10 mg tablet RxNorm: 335551 1 Tablet(s) PO Q8 PRN 04/01/2014 04/10/2014 Inactive Carafate 1 gram tablet RxNorm: 517099 1 Tablet(s) PO QID 03/10/2014 04/08/2014 Inactive chlordiazepoxide-cli dinium 5 mg-2.5 mg capsule RxNorm: 656117 1 Capsule(s) PO TID P RN 03/10/2014 04/10/2014 Inactive doxazosin 4 mg tablet RxNorm: 875420 1 Tablet(s) PO BID 02/02/2014 02/12/2015 Inactive Kenalog 40 mg/mL sylvia pension for injection RxNorm: 5306475 Milliliter(s) Inj 02/02/2014 02/02/2014 In active atorvastatin 20 mg t ablet RxNorm: 817714 Tablet(s) PO TAKE ONE TABLET BY MOUTH EVERY DAY 01/10/2014 04/24/2014 Inactive alprazolam 0.5 mg ta blet RxNorm: 271501 Tablet(s) PO TAKE ONE TABLET BY MOUTH EVERY NIGHT AT BEDTIME AND NEEDED FOR PANIC ATTACKS 01/10/2014 07/07/2014 Inactive (Appended: Controlled substance eRx refill - RxReferenceNumber: [id number]) alprazolam 0.5 mg ta blet RxNorm: 853587 1 Tablet(s) PO QHS TA KE ONE TABLET BY MOUTH EVERY NIGHT AT BEDTIME AND NEEDED FOR PANIC ATTACKS 01/10/2014 10/20/2014 Inactive (Appended: Controlled substance eRx refi ll - RxReferenceNumber: [id number]) alprazolam 0.5 mg ta blet RxNorm: 817986 Tablet(s) PO TAKE ONE TABLET BY MOUTH EVERY NIGHT AT BEDTIME AND NEEDED FOR PANIC ATTACKS 01/10/2014 01/09/2014 Inactive (Appended: Controlled substance eRx refill - RxReferenceNumber: [id number]) Carafate 1 gram tablet RxNorm: 396400 1 Tablet(s) PO QID 12/16/2013 01/14/2014 Inactive Nexium 40 mg capsule ,delayed release RxNorm: 973439 Capsule(s) PO TAKE ON E CAPSULE BY MOUTH EVERY DAY 11/25/2013 03/12/2016 Inactive doxazosin 4 mg tablet RxNorm: 693574 1/2 Tablet(s) PO QPM 10/21/2013 10/20/2013 Inactive alprazolam 0.5 mg ta blet RxNorm: 619711 1 Tablet(s) PO as dir ected q hs and prn panic attacks 10/18/2013 01/10/2014 Inactive doxazosin 4 mg tablet RxNorm: 371587 1 q am 1/2 q pm Tablet(s) PO 09/21/2013 02/01/2014 Inactive doxazosin 4 mg tablet RxNorm: 413924 1 q am 1/2 q pm Tablet(s) PO 09/21/2013 09/20/2013 Inactive amlodipine 10 mg tablet RxNorm: 204569 1 Tablet(s) PO QAM 08/30/2013 08/24/2014 Inactive now taking full tab metoprolol tartrate 100 mg tablet RxNorm: 911480 2 Tablet(s) PO QPM 08/24/2013 10/22/2013 Inactive alprazolam 0.5 mg ta blet RxNorm: 243005 1 Tablet(s) PO as dir ected q hs and prn panic attacks 07/29/2013 10/17/2013 Inactive Benicar 20 mg tablet RxNorm: 414485 1 Tablet(s) PO daily 07/26/2013 08/09/2013 Inactive amlodipine 10 mg tablet RxNorm: 517285 1 Tablet(s) PO QAM 07/19/2013 08/29/2013 Inactive cyclobenzaprine 5 mg tablet RxNorm: 553214 1 Tablet(s) PO TID OK N one pill every 8 hours as needed for muscle spasms. 07/19/2013 03/31/2014 Inactive Kenalog 40 mg/mL Sylvia p for Injection RxNorm: 1104286 1 Milliliter(s) Inj 06/30/2013 06/30/2013 In active prednisone 10 mg tab lets in a dose pack RxNorm: 918489 1 Tablet(s) PO as doc tor directed take steroid taper as directed on box 06/30/2013 07/09/2013 Inactive disp ense one PACK meclizine 25 mg tablet RxNorm: 809201 1 Tablet(s) PO Q6 PRN 1/2 - 1 pill every 6 hours as needed for vertigo 06/30/2013 08/10/2013 Inactive metoprolol tartrate 100 mg tablet RxNorm: 821669 1.5 Tablet(s) PO BID 06/30/2013 08/23/2013 In active metoprolol tartrate 100 mg tablet RxNorm: 169990 1 Tablet(s) PO BID 06/24/2013 06/29/2013 Inactive metoprolol tartrate 100 mg tablet RxNorm: 363126 1 Tablet(s) PO daily 06/17/2013 06/23/2013 In active metoprolol tartrate 100 mg tablet RxNorm: 172029 1 Tablet(s) PO daily 06/17/2013 06/16/2013 In active Toprol XL 100 mg tab let,extended release RxNorm: 659025 Tablet(s) PO TAKE ONE AND ONE- HALF TABLET BY MOUTH EVERY MORNING AND ONE TABLET IN THE EVENING 05/05/2013 06/22/2013 In active alprazolam 0.5 mg ta blet RxNorm: 725155 1 Tablet(s) PO as dir ected q hs and prn panic attacks 04/06/2013 07/28/2013 Inactive doxazosin 4 mg tablet RxNorm: 602633 Tablet(s) PO TAKE ONE TABLET BY MOUTH EV KANE DAY 04/01/2013 09/20/2013 Inactive Toprol XL 100 mg tab let,extended release RxNorm: 967504 Tablet(s) PO TAKE ONE AND ONE- HALF TABLET BY MOUTH EVERY MORNING AND ONE TABLET IN THE EVENING 12/25/2012 05/04/2013 In active Lasix 20 mg tablet RxNorm: 271691 1 Tablet(s) PO QDAY PRN Take 1 tab daily x 3 days then as needed 12/02/2012 04/10/2014 Inactive potassium chloride E R 20 mEq tablet,extended release(part/cryst) RxNorm: 008744 1 Tablet(s) PO PRN 12/02/2012 10/04/2013 Inactive prn swelling alprazolam 0.5 mg ta blet RxNorm: 816928 1 Tablet(s) PO as dir ected q hs and prn panic attacks 12/01/2012 04/05/2013 Inactive amlodipine 10 mg tablet RxNorm: 243705 1/2 Tablet(s) PO QAM 12/01/2012 07/18/2013 Inactive fluconazole 150 mg t ablet RxNorm: 142577 1 Tablet(s) PO daily 11/16/2012 11/20/2012 Inactive fluconazole 150 mg t ablet RxNorm: 383899 1 Tablet(s) PO daily 11/16/2012 11/15/2012 Inactive Nexium 40 mg capsule ,delayed release RxNorm: 075615 1 Capsule(s) PO daily 10/23/2012 11/16/2013 In active acyclovir 400 mg tablet RxNorm: 841822 1 Tablet(s) PO TID 10/19/2012 10/28/2012 Inactive chlordiazepoxide-cli dinium 5 mg-2.5 mg capsule RxNorm: 500113 1 Capsule(s) PO TID P RN 2012 12/22/2013 Inactive Voltaren 1 % Topical Gel RxNorm: 181459 4 Gram(s) TOP QID pt is to use 2 grams to each hand and 4 grams to knees. 08/18/2012 04/10/2014 Inactive doxazosin 4 mg tablet RxNorm: 780179 1 Tablet(s) PO QAM 08/18/2012 10/16/2012 Inactive atorvastatin 20 mg t ablet RxNorm: 041450 1 Tablet(s) PO HS 08/12/2012 08/11/2012 Inactive may have #90 x3 infection atorvastatin 20 mg t ablet RxNorm: 837355 1 Tablet(s) PO HS 08/12/2012 09/05/2013 Inactive may have #90 x3 infection doxazosin 4 mg tablet RxNorm: 391837 1 Tablet(s) PO daily 08/11/2012 08/17/2012 Inactive clonidine 0.1 mg/24 hr Weekly Transderm Patch RxNorm: 454944 1 Patch TD QW 08/04/2012 08/10/2012 In active Influenza Virus Vacc ine 0.5 mL RxNorm: IM 08/04/2012 08/04/2012 Inactive cyclobenzaprine 5 mg tablet RxNorm: 671788 1 Tablet(s) PO TID OK N one pill every 8 hours as needed for muscle spasms. 07/13/2012 11/09/2012 Inactive cyclobenzaprine 5 mg tablet RxNorm: 754017 1 Tablet(s) PO TID OK N one pill every 8 hours as needed for muscle spasms. 07/09/2012 07/12/2012 Inactive gabapentin 100 mg ca psule RxNorm: 122613 1 Capsule(s) PO TID 07/01/2012 12/01/2012 Inactive atorvastatin 20 mg t ablet RxNorm: 216051 1/2 Tablet(s) PO daily 07/01/2012 08/11/2012 Inactive may of day supply if cheaper Toprol XL 100 mg tab let,extended release RxNorm: 303861 Tablet(s) PO BID 09/04 in am and 1 in evening 07/01/2012 06/16/2013 Inactive 1 1/2 q am 1 in [place] alprazolam 0.5 mg ta blet RxNorm: 271636 1 Tablet(s) PO as dir ected q hs and prn panic attacks 06/24/2012 11/30/2012 Inactive amlodipine 10 mg tablet RxNorm: 562299 1 Tablet(s) PO QAM 06/19/2012 11/30/2012 Inactive benazepril 20 mg tablet RxNorm: 841176 1 Tablet(s) PO daily 06/19/2012 06/13/2013 Inactive one daily at noon Toprol XL 100 mg tab let,extended release RxNorm: 987836 Tablet(s) PO BID 06/19/2012 06/30/2012 In active 1 1/2 q am 1 in [place] Toprol XL 100 mg tab let,extended release RxNorm: 160021 1 1/2 Tablet(s) PO BI D 04/27/2012 06/18/2012 In active 90 or 30 day supply, whatever ins will a llow Lotrel 10 mg-20 mg Cap RxNorm: 810777 1 Capsule(s) PO daily 04/20/2012 08/04/2012 Inactive estradiol 0.5 mg Tab RxNorm: 350944 1 Tablet(s) PO BID 04/20/2012 12/02/2012 Inactive Toprol XL 100 mg 24 hr Tab RxNorm: 605562 1 1/2 Tablet(s) PO BID 04/14/2012 04/26/2012 Inactive Toprol XL 100 mg 24 hr Tab RxNorm: 923229 Tablet(s) PO daily 03/31/2012 04/13/2012 Inactive new directions: one q am 1/2 every evepl ease put on file until she needs filled Lipitor 10 mg tablet RxNorm: 325653 1 Tablet(s) PO daily 03/31/2012 12/02/2012 Inactive march day supply if cheaper Toprol XL 100 mg 24 hr Tab RxNorm: 464673 1 Tablet(s) PO daily 03/11/2012 03/30/2012 Inactive Boniva 150 mg Tab RxNorm: 814908 1 Tablet(s) PO weekly 02/19/2012 12/02/2012 Inactive Detrol LA 4 mg capsu le,extended release RxNorm: 112941 1 Capsule(s) PO daily 02/19/2012 03/12/2016 In active doxycycline hyclate 100 mg Tab RxNorm: 703820 1 Tablet(s) PO BID 01/23/2012 02/25/2012 Inactive Rocephin 500 mg Solu tion for Injection RxNorm: 288922 1 Milliliter(s) Inj 01/23/2012 01/23/2012 In active Kenalog 40 mg/mL Sylvia p for Injection RxNorm: 5569370 1 Milliliter(s) Inj 01/23/2012 01/23/2012 In active cyclobenzaprine 5 mg tablet RxNorm: 073066 1 Tablet(s) PO TID OK N one pill every 8 hours as needed for muscle spasms. 12/20/2011 04/17/2012 Inactive clonidine 0.1 mg Tab RxNorm: 298372 1 Tablet(s) PO BID 12/20/2011 02/25/2012 Inactive Vitamin D3 5,000 uni t tablet RxNorm: 741337 1 Tablet(s) PO daily No Start Date Active Nexium 24HR 22.3 mg capsule,delayed release RxNorm: 261496 1 Capsule(s) PO daily as needed No Start Date Active Fish Oil 360 mg-1,20 0 mg capsule,delayed release RxNorm: 1 Capsule(s) PO daily No Start Date Active Lotrel 10 mg-20 mg Cap RxNorm: 130338 1 Capsule(s) PO daily No Start Date 02/24/2012 Inactive benazepril 20 mg tablet RxNorm: 224806 1 Tablet(s) PO No Start Date 06/18/2012 Inactive one daily at noon Vimovo 500 mg-20 mg multiphase, immed & delay rel Tab RxNorm: 104793 1 Tablet(s) PO BID No Start Date 12/01/2012 Inactive B12 1000 mcg RxNorm: 2 IM daily No Start Date 03/12/2016 Inactive Fish Oil 1,000 mg ca psule RxNorm: 1 Capsule(s) PO BID No Start Date 04/12/2014 Inactive Benicar 40 mg tablet RxNorm: 417794 1 Tablet(s) PO daily No Start Date 10/24/2013 Inactive Carafate 1 gram tablet RxNorm: 373972 Oral No Start Date 12/15/2013 Inactive Vitamin B-12 1,000 m cg tablet RxNorm: 533232 1 Tablet(s) PO daily No Start Date 03/12/2016 Inactive amlodipine 10 mg tablet RxNorm: 703344 1 Tablet(s) PO daily No Start Date 06/18/2012 Inactive Phenergan VC-Codeine 6.25 mg-5 mg-10 mg/5 mL Syrup RxNorm: 923849 5-10 Milliliter(s) PO Q6 PRN No Start Date 04/10/2014 Inactive Celebrex 200 mg capsule RxNorm: 600216 1 Capsule(s) PO daily No Start Date 10/08/2015 Inactive Percocet 5 mg-325 mg tablet RxNorm: 5405557 1-2 Tablet(s) PO Q6 PRN No Start Date 06/16/2014 Inactive Exforge 10 mg-320 mg Tab RxNorm: 652679 1 Tablet(s) PO daily sample No Start Date 05/20/2012 Inactive Lipitor 10 mg Tab RxNorm: 927751 1 Tablet(s) PO daily No Start Date 03/30/2012 Inactive tramadol 50 mg tablet RxNorm: 645872 1-2 Tablet(s) PO Q8 as needed No Start Date 04/24/2016 Inactive Lasix 20 mg tablet RxNorm: 871672 1 Tablet(s) PO QDAY PRN Take 1 tab daily x 3 days then as needed No Start Date 12/01/2012 Inactive potassium chloride E R 20 mEq tablet,extended release(part/cryst) RxNorm: 7687979 1 Tablet(s) PO QDAY PRN No Start Ochoa e 12/01/2012 Inactive Toprol XL 100 mg 24 hr Tab RxNorm: 704390 1 Tablet(s) PO daily No Start Date 03/10/2012 Inactive MIDRIN 325 mg-65 mg- 100 mg Cap RxNorm: 467436 1 Capsule(s) PO PRN No Start Date 05/20/2012 Inactive Nexium 40 mg capsule ,delayed release RxNorm: 384939 1 Capsule(s) PO daily No Start Date 10/22/2012 Inactive Detrol LA 4 mg 24 hr Cap RxNorm: 712896 Oral No S tart Date 02/18/2012 Inactive Boniva 150 mg Tab RxNorm: 567406 Oral No Start Date 02/18/2012 Inactive Flexeril 10 mg tablet RxNorm: 583298 1 Tablet(s) PO Q8 PRN No Start Date 03/31/2014 Inactive clidinium bromide Oral RxNorm: Oral No Start Date 12/01/2012 Inactive alprazolam 0.5 mg ta blet RxNorm: 074275 1 Tablet(s) PO as dir ected q hs and prn panic attacks No Start Date 06/23/2012 Inactive chlordiazepoxide Oral RxNorm: Oral No Start Date 12/01/2012 Inactive metoprolol tartrate 100 mg tablet RxNorm: 179292 Tablet(s) PO TAKE ONE AND ONE-HALF (1 & 1/2) TABLET BY MOUTH EVERY MORNING AND TAKE TWO TABLETS BY MOUTH EVERY EVENING No Start Date 08/03/2014 Inactive furosemide 20 mg tablet RxNorm: [id number] 1 Tablet(s) PO daily No Start Date 01/29/2016 Inactive Calcium Oral RxNorm: Oral No Start Date 03/12 Inactive Nasonex 50 mcg/actua tion [place] RxNorm: 669191 1 [place] NASAL BID No Start Date 04/10/2014 Inactive Medication Administered Medication Codes Instruc tions Start Date Status Kenalog 40 mg/mL suspension for injection RxNorm: 8861447 2Milliliter 03/21/2017 N o longer Active Kenalog 40 mg/mL suspension for injection RxNorm: 3624828 1Milliliter 04/04/2016 N o longer Active Kenalog 40 mg/mL suspension for injection RxNorm: 8654216 Milliliter 06/12/2015 No longer Active Kenalog 40 mg/mL suspension for injection RxNorm: 8665202 Milliliter 05/15/2015 No longer Active Kenalog 40 mg/mL suspension for injection RxNorm: 0267000 Milliliter 02/02/2014 No longer Active Kenalog 40 mg/mL Susp for Injection RxNorm: 3878378 1Milliliter 06/30/2013 N o longer Active Influenza Virus Vaccine 0.5 mL RxNorm: 08/04/2012 No longer Active Rocephin 500 mg Solution for Injection RxNorm: 062961 1Milliliter 01/23/2012 N o longer Active Kenalog 40 mg/mL Susp for Injection RxNorm: 1829124 1Milliliter 01/23/2012 N o longer Active Immunizations [...] Ord2 RDW 14.8 % 06/05/2015 Comp Metabolic Sdn106 NA 138 mEq/L 06/05/2015 Comp Metabolic Tgt429 K 4.3 mEq/L 06/05/2015 Comp Metabolic Ycf106 CL 100 mEq/L 06/05/2015 Comp Metabolic Psk614 CO2 29.0 mEq/L 06/05/2015 Comp Metabolic Oxr948 AN ION GAP 13 06/05/2015 Comp Metabolic Wvl897 GL UCOSE 85 mg/dL 06/05/2015 Comp Metabolic Jsm946 Cr eat 0.7 mg/dL 06/05/2015 Comp Metabolic Uno060 eG FR 94 ml/min/1.73m2 06/05 Comp Metabolic Ykz331 BUN 16 mg/dL 06/05/2015 Comp Metabolic Ywc017 B/ C Ratio 24.2 Ratio 06/05/2015 Comp Metabolic Egl260 CA LCIUM 9.5 mg/dL 06/05/2015 Comp Metabolic Qzx203 AL K PHOS 69 U/L 06/05/2015 Comp Metabolic Qat778 T(SGOT) 22 U/L 06/05/2015 Comp Metabolic Npb585 AL T(SGPT) 26 U/L 06/05/2015 Comp Metabolic Snv806 BI LI T 0.5 mg/dL 06/05/2015 Comp Metabolic Owq459 AL BUMIN 4.2 g/dL 06/05/2015 Comp Metabolic Age662 TP RO 6.1 g/dL 06/05/2015 Comp Metabolic Slo643 GL OB 1.9 g/dL 06/05/2015 Comp Metabolic Ueh770 A/ G Ratio 2.2 Ratio 06/05/2015 Comp Metabolic Amu422 Os mo 276 mOsmo 06/05/2015 Tsh Ord6 hTSH II 1.99 uIU/mL 06/05/2015 Lipid Ord30 CHOL 171 mg/dL 06/05/2015 Lipid Ord30 HDL 55.0 mg/dl 06/05/2015 Lipid Ord30 TRIG 178 mg/dL 06/05/2015 Lipid Ord30 LDL 80 mg/dL 06/05/2015 Lipid Ord30 C/HDL 3.1 Ratio 06/05/2015 %Hba1C Sgx219 % HbA1c 55210-9 5.7 % 06/05/2015 %Hba1C Gbg491 Gluc Ave 117 mg/dL 06/05/2015 A1C HPLC 5357325 A1C HPLC 76462-7 5.6 % 07/15/2014 GFR CALC 7626469 GFR AA >60 ML/MIN 07/15/2014 GFR CALC 6749799 GFR NON -AA >60 ML/MIN 07/15/2014 CHEM 14 7613567 AST 21 U/L 07/15/2014 CHEM 14 3940326 ALT 23 IU/L 07/15/2014 CHEM 14 3353842 BUN 14 MG/DL 07/15/2014 CHEM 14 5495249 ALBUMIN 4.2 GM/DL 07/15/2014 CHEM 14 4067312 CHLORIDE 104 MMOL/L 07/15/2014 CHEM 14 20280507 BILI TOT 0.4 MG/DL 07/15/2014 CHEM 14 3091496 ALK PHOS 88 U/L 07/15/2014 CHEM 14 8754247 SODIUM 140 MMOL/L 07/15/2014 CHEM 14 0832779 CREATINI NE 0.63 MG/DL 07/15/2014 CHEM 14 5433469 CALCIUM 9.4 MG/DL 07/15/2014 CHEM 14 4132007 POTASSIUM 4.0 MMOL/L 07/15/2014 CHEM 14 0709946 PROT TOT 6.4 GM/DL 07/15/2014 CHEM 14 5914724 GLUCOSE 90 MG/DL 07/15/2014 CHEM 14 2524595 BICARB 30 MMOL/L 07/15/2014 CHEM 14 0183468 ANION GAP 6 MEQ/L 07/15/2014 A1C HPLC 4744283 A1C HPLC 13991-3 6.0 % 04/13/2014 TSH 8224402 TSH 1.875 uIU/ML 04/12/2014 CHEM 14 5961792 AST 17 U/L 04/12/2014 CHEM 14 0495676 ALT 20 IU/L 04/12/2014 CHEM 14 8372290 BUN 14 MG/DL 04/12/2014 CHEM 14 7906432 ALBUMIN 4.2 GM/DL 04/12/2014 CHEM 14 6390657 CHLORIDE 104 MMOL/L 04/12/2014 CHEM 14 7470234 BILI TOT 0.3 MG/DL 04/12/2014 CHEM 14 8008132 ALK PHOS 80 U/L 04/12/2014 CHEM 14 1510751 SODIUM 141 MMOL/L 04/12/2014 CHEM 14 3960205 CREATINI NE 0.62 MG/DL 04/12/2014 CHEM 14 5727955 CALCIUM 9.4 MG/DL 04/12/2014 CHEM 14 7296436 POTASSIUM 3.5 MMOL/L 04/12/2014 CHEM 14 9018411 PROT TOT 6.5 GM/DL 04/12/2014 CHEM 14 9361418 GLUCOSE 89 MG/DL 04/12/2014 CHEM 14 0396080 BICARB 29 MMOL/L 04/12/2014 CHEM 14 2334526 ANION GAP 8 MEQ/L 04/12/2014 LIPID GRP 3063102 HDL TE ST 59 MG/DL 04/12/2014 LIPID GRP 3133873 TRIG 177 MG/DL 04/12/2014 LIPID GRP 3600697 TEST L DL 106 MG/DL 04/12/2014 LIPID GRP 2230722 CHOL 200 MG/DL 04/12/2014 LIPID GRP RCHOL/ HDL 3.39 RATIO 04/12/2014 CBC 0822975 WBC 4.6 10e9/L 04/12/2014 CBC 0898928 RBC 4.52 10e12/L 04/12/2014 CBC 5775985 HGB 13.1 g/dL 04/12/2014 CBC 8202598 HCT DET 39.2 % 04/12/2014 CBC 4421430 MCV 86.7 fL 04/12/2014 CBC 2294182 MCH 29.0 pg 04/12/2014 CBC 4393061 MCHC 33.4 g/dL 04/12/2014 CBC 2495542 PLT 233 10e9/L 04/12/2014 CBC 5576875 MPV 9.8 fL 04/12/2014 CBC 8607740 AN % 59.5 % 04/12/2014 CBC 0640461 LY % 28.6 % 04/12/2014 CBC 7441877 MON % 10.0 % 04/12/2014 CBC 7454721 EOS % 1.5 % 04/12/2014 CBC 1318747 BASO % 0.4 % 04/12/2014 CBC 6533258 RDW 13.7 % 04/12/2014 CBC 3795307 ABS AN 2.74 10e9/L 04/12/2014 CBC 8643606 ABS LYMPH 1.32 10e9/L 04/12/2014 CBC 5727789 ABS MONO 0.46 10e9/L 04/12/2014 CBC 1685869 ABS EOS 0.07 10e9/L 04/12/2014 CBC 8684633 ABS BASO 0.02 10e9/L 04/12/2014 CBC 6315533 RDW-SD 42.6 fL 04/12/2014 GFR CALC 5272043 GFR AA >60 ML/MIN 04/12/2014 GFR CALC 0208740 GFR NON -AA >60 ML/MIN 04/12/2014 LIPID GRP HDL TE ST 57 MG/DL 08/24/2013 LIPID GRP TRIG 183 MG/DL 08/24/2013 LIPID GRP TEST L DL 64 MG/DL 08/24/2013 LIPID GRP 5368086 CHOL 158 MG/DL 08/24/2013 LIPID GRP RCHOL/ HDL 2.77 RATIO 08/24/2013 GFR CALC 7273023 GFR AA >60 ML/MIN 08/24/2013 GFR CALC 2494089 GFR NON -AA >60 ML/MIN 08/24/2013 CHEM 14 2034088 AST 13 U/L 08/24/2013 CHEM 14 7140333 ALT 15 IU/L 08/24/2013 CHEM 14 1710782 BUN 14 MG/DL 08/24/2013 CHEM 14 1322147 ALBUMIN 4.3 GM/DL 08/24/2013 CHEM 14 7726266 CHLORIDE 106 MMOL/L 08/24/2013 CHEM 14 3721159 BILI TOT 0.3 MG/DL 08/24/2013 CHEM 14 0776683 ALK PHOS 75 U/L 08/24/2013 CHEM 14 0679390 SODIUM 141 MMOL/L 08/24/2013 CHEM 14 8696685 CREATINI NE 0.56 MG/DL 08/24/2013 CHEM 14 6415372 CALCIUM 9.1 MG/DL 08/24/2013 CHEM 14 6613275 POTASSIUM 4.2 MMOL/L 08/24/2013 CHEM 14 2119161 PROT TOT 6.0 GM/DL 08/24/2013 CHEM 14 4470262 GLUCOSE 83 MG/DL 08/24/2013 CHEM 14 1357445 BICARB 28 MMOL/L 08/24/2013 CHEM 14 6161523 ANION GAP 7 MEQ/L 08/24/2013 CBC 5070506 WBC 4.7 10e9/L 08/24/2013 CBC 4071156 RBC 4.33 10e12/L 08/24/2013 CBC 9602900 HGB 12.5 g/dL 08/24/2013 CBC 9127957 HCT DET 38.2 % 08/24/2013 CBC 1890458 MCV 88.2 fL 08/24/2013 CBC 0723537 MCH 28.9 pg 08/24/2013 CBC 4213224 MCHC 32.7 g/dL 08/24/2013 CBC 1817017 PLT 218 10e9/L 08/24/2013 CBC 5727878 MPV 10.4 fL 08/24/2013 CBC 0288202 AN % 61.9 % 08/24/2013 CBC 2353931 LY % 24.8 % 08/24/2013 CBC 9230047 MON % 10.3 % 08/24/2013 CBC 2990599 EOS % 2.1 % 08/24/2013 CBC 8116032 BASO % 0.9 % 08/24/2013 CBC 6786300 RDW 14.6 % 08/24/2013 CBC 9068175 ABS AN 2.91 10e9/L 08/24/2013 CBC 2828866 ABS LYMPH 1.17 10e9/L 08/24/2013 CBC 2832042 ABS MONO 0.48 10e9/L 08/24/2013 CBC 7873497 ABS EOS 0.10 10e9/L 08/24/2013 CBC 8137383 ABS BASO 0.04 10e9/L 08/24/2013 CBC 4598001 RDW-SD 46.7 fL 08/24/2013 TSH 6268541 TSH 1.208 uIU/ML 08/24/2013 Review of Systems [...] clear 02/06/2015 None Full Exam - General 1995 Ears/Nose/Throat [...] Date TRIAMCINOLONE ACET I [place] NOS CPT-4: N4272Tdivtuc 03/21/2017 PPPS, SUBSEQ VISIT CPT-4: T6560Txlydjl 01/22/2017 ADMIN PNEUMOCOCCAL V ACCINE SNOMED CT: 37392162 CPT-4: R7074Ygnobay 09/16/2016 Pneumococcal Polysac charide Vaccine, 23-Valent, Ad CPT-4: 83646Tpffxap 09/16/2016 THER/PROPH/DIAG INJ SC/IM CPT-4: 41496Bhiowta 04/04/2016 TRIAMCINOLONE ACET I [place] NOS CPT-4: Z3727Mxnogic 04/04/2016 ADMIN INFLUENZA VIRU S VAC CPT-4: M7645Hldgtsu 07/28/2015 FLU VACC 4 XIMENA 3 YRS PLUS IM Formatting Model/CDA Sections, Assigned to/Jen Cota SNOMED CT: 31631559 CPT-4: 36344Ngktbsg 07/28/2015 TRIAMCINOLONE ACET I [place] NOS CPT-4: V3272Bmbknhz 06/12/2015 TRIAMCINOLONE ACET I [place] NOS CPT-4: Y3435Qkxwdnn 05/15/2015 ADMIN INFLUENZA VIRU S VAC CPT-4: O1406Picodww 07/19/2014 FLU VAC NO PRSV 4 VA L 3 YRS+ Assigned to/Cipriano Jen CPT-4: 47060Tfspxyx 07/19/2014 TRIAMCINOLONE ACET I [place] NOS CPT-4: S1196Jdbjclo 02/02/2014 ROUTINE VENIPUNCTURE CPT-4: 84781Elkmdgt 08/24/2013 ADMIN INFLUENZA VIRU S VAC CPT-4: Z5996Jcjqvul 07/26/2013 FLULAVAL VACC, 3 YRS & >, IM CPT-4: X7459Veouwia 07/26/2013 TRIAMCINOLONE ACET I [place] NOS CPT-4: L6971Ugvdihf 06/30/2013 PRESCRIP TRANSMIT A ERX SY CPT-4: S8284Qqxjvpo 06/30/2013 PRESCRIP TRANSMIT A ERX SY CPT-4: H1804Fequdjo 12/01/2012 PRESCRIP TRANSMIT A ERX SY CPT-4: X4631Zvuifnt 10/19/2012 PRESCRIP TRANSMIT A ERX SY CPT-4: Q7755Zuakezn 10/07/2012 PRESCRIP TRANSMIT A ERX SY CPT-4: I9050Mwkpdkg 2012 PRESCRIP TRANSMIT A ERX SY CPT-4: H8409Szbepxn 08/18/2012 ADMIN INFLUENZA VIRU S VAC CPT-4: E5303Wxnqemo 08/04/2012 FLULAVAL VACC, 3 YRS & >, IM CPT-4: I2424Oyaglza 08/04/2012 PRESCRIP TRANSMIT A ERX SY CPT-4: L3261Wrtaiyn 08/04/2012 PRESCRIP TRANSMIT A ERX SY CPT-4: U9636Ermwsfn 07/01/2012 ROCEPHIN, PER 250 MG CPT-4: L6579Cwhyzwh 01/23/2012 TRIAMCINOLONE ACET I [place] NOS CPT-4: G5019Dezqerq 01/23/2012 THER/PROPH/DIAG INJ SC/IM CPT-4: 77921Tfjmbpc 01/23/2012 REMOVE IMPACTED EAR WAX UNI CPT-4: 08741Yvfeyqp 01/02/2012 ROUTINE VENIPUNCTURE CPT-4: 26062Eudozcp 12/20/2011 Vital Signs Date Vital 03/21/2017 Blood Pressure 1: 152/88 Code: 8480-6 Heart Rate 1: 70 bpm Height: SpO2: 98% Weight: 03/19/2017 Blood Pressure 1: 132/64 Code: 8480-6 BMI: 33.0 Code: 81772-8 Heart Rate 1: 64 bpm Height: 5' SpO2: 96% Weight: 172 lbs 01/22/2017 Blood Pressure 1: 120/68 Code: 8480-6 BMI: 33.4 Code: 67721-0 Heart Rate 1: 68 bpm Height: 5' SpO2: 96% Weight: 174 lbs 01/14/2017 Blood Pressure 1: 138/80 Code: 8480-6 BMI: 33.4 Code: 12969-2 Heart Rate 1: 69 bpm Height: 5' SpO2: 98% Weight: 174 lbs 09/23/2016 Blood Pressure 1: 138/70 Code: 8480-6 BMI: 33.6 Code: 45373-5 Heart Rate 1: 68 bpm Height: 5' SpO2: 98% Temperature: 36.4 (C ) / 97.5 (F) Weight: 175 lbs 09/16/2016 Blood Pressure 1: 124/74 Code: 8480-6 BMI: 33.6 Code: 73265-0 Heart Rate 1: 64 bpm Height: 5' SpO2: 97% Weight: 175 lbs 06/25/2016 Weigh t: 174 lbs 06/17/2016 Blood Pressure 1: 128/80 Code: 8480-6 BMI: 34.0 Code: 40142-2 Heart Rate 1: 76 bpm Height: 5' SpO2: 95% Weight: 177 lbs 04/03/2016 Blood Pressure 1: 138/72 Code: 8480-6 BMI: 34.2 Code: 80260-4 Heart Rate 1: 63 bpm Height: 5' SpO2: 96% Weight: 178 lbs 03/13/2016 Blood Pressure 1: 128/72 Code: 8480-6 BMI: 35.3 Code: 52836-6 Heart Rate 1: 71 bpm Height: 5' SpO2: 97% Weight: 184 lbs 01/30/2016 Blood Pressure 1: 134/72 Code: 8480-6 BMI: 35.2 Code: 39032-9 Heart Rate 1: 71 bpm Height: 5' SpO2: 96% Weight: 183 lbs 12/21/2015 Blood Pressure 1: 148/90 Code: 8480-6 BMI: 34.6 Code: 00357-3 Heart Rate 1: 89 bpm Height: 5' SpO2: 96% Weight: 180 lbs 10/09/2015 Blood Pressure 1: 124/76 Code: 8480-6 BMI: 34.6 Code: 09977-1 Heart Rate 1: 88 bpm Height: 5' SpO2: 96% Weight: 180 lbs 06/12/2015 Blood Pressure 1: 148/74 Code: 8480-6 BMI: 33.4 Code: 98782-2 Heart Rate 1: 70 bpm Height: 5' SpO2: 96% Weight: 174 lbs 06/05/2015 Blood Pressure 1: 142/82 Code: 8480-6 BMI: 33.2 Code: 12626-2 Heart Rate 1: 72 bpm Height: 5' Weight: 173 lbs 05/15/2015 Blood Pressure 1: 118/80 Code: 8480-6 BMI: 33.6 Code: 43701-7 Heart Rate 1: 82 bpm Height: 5' Weight: 175 lbs 02/06/2015 Blood Pressure 1: 122/76 Code: 8480-6 BMI: 34.6 Code: 35422-8 Heart Rate 1: 58 bpm Height: 5' Weight: 180 lbs 01/10/2015 Blood Pressure 1: 158/90 Code: 8480-6 Blood Pressure 2: 152/90 Code: 8480-6 BMI: 34.6 Code: 16239-0 Heart Rate 1: 68 bpm Height: 5' Weight: 180 lbs 07/19/2014 Blood Pressure 1: 142/78 Code: 8480-6 BMI: 33.6 Code: 42071-6 Heart Rate 1: 56 bpm Height: 5' Weight: 175 lbs 06/17/2014 Blood Pressure 1: 128/86 Code: 8480-6 Heart Rate 1: 66 bpm SpO2: 98% Weight: 172 lbs 04/19/2014 Blood Pressure 1: 152/82 Code: 8480-6 BMI: 32.5 Code: 16647-5 Heart Rate 1: 60 bpm Height: 5' Weight: 169 lbs 04/11/2014 Blood Pressure 1: 120/80 Code: 8480-6 BMI: 33.4 Code: 03366-7 Heart Rate 1: 64 bpm Height: 5' Weight: 174 lbs 03/10/2014 Blood Pressure 1: 136/64 Code: 8480-6 BMI: 32.7 Code: 93516-5 Heart Rate 1: 76 bpm Height: 5' Weight: 170 lbs 02/02/2014 Blood Pressure 1: 160/76 Code: 8480-6 BMI: 32.7 Code: 68117-3 Heart Rate 1: 64 bpm Height: 5' Weight: 170 lbs 10/25/2013 Blood Pressure 1: 164/82 Code: 8480-6 BMI: 31.9 Code: 59085-6 Heart Rate 1: 60 bpm Height: 5' Weight: 166 lbs 08/24/2013 Blood Pressure 1: 138/88 Code: 8480-6 Heart Rate 1: 80 bpm Weight: 07/26/2013 Blood Pressure 1: 154/70 Code: 8480-6 Heart Rate 1: 72 bpm Weight: 162 lbs 06/30/2013 Blood Pressure 1: 182/86 Code: 8480-6 Heart Rate 1: 80 bpm Weight: 06/24/2013 Blood Pressure 1: 148/68 Code: 8480-6 BMI: 31.3 Code: 75454-4 Heart Rate 1: 72 bpm Height: 5' [...] 1: 142/88 Code: 8480-6 BMI: 30.6 Code: 06306-9 Heart Rate 1: 64 bpm Height: 5' [...] 1: 180/96 Code: 8480-6 BMI: 30.5 Code: 80991-5 Heart Rate 1: 76 bpm Height: 5' Respiratory Rate: 16 bpm Weight: 159 lbs 02/19/2012 Blood Pressure 1: 150/70 Code: 8480-6 Blood Pressure 2: 160/78 Code: 8480-6 Heart Rate 1: 76 bpm Respiratory Rate: 16 bpm Weight: 158 lbs 01/23/2012 Blood Pressure 1: 140/84 Code: 8480-6 BMI: 30.3 Code: 00560-3 Heart Rate 1: 68 bpm Height: 5' Respiratory Rate: 16 bpm SpO2: 98% Temperature: 37.0 (C ) / 98.6 (F) Weight: 158 lbs 01/02/2012 Blood Pressure 1: 142/92 Code: 8480-6 BMI: 30.7 Code: 92669-9 Heart Rate 1: 72 bpm Height: 5' Respiratory Rate: 16 bpm Weight: 160 lbs 12/20/2011 Blood Pressure 1: 170/84 Code: 8480-6 BMI: 30.0 Code: 69171-2 Heart Rate 1: 70 bpm Height: 5' [...] 06/12/2015 None rash Location-Head/Neck on the right yazidi 06/12/2015 None rash Location-Head/Neck on the right [...] Findings Denies tachycardia 08/24/2013 None hypertension [facility] 07/26/2013 None hypertension Onset and [...] Factors position change 06/30/2013 None hypertension [facility] 06/30/2013 None hypertension Onset and Resolution ongoing 06/30/2013 None hypertension Blood Pressure Values pt checking blood pressure - see scanned document 06/30/2013 149-178/82 hypertension [facility] on 06/24/2013 patient states that her T oprol [...] Encounters Encounter Performer Loca tion Codes Date ([id number]) 91151 EST. P ATIENT, LEVEL III Diagnosis: Allergic contact dermatitis due to plants, except food[ICD10: L23.7] [facility] CPT-4: 88371 03/21/2017 [id number] EST. PATIENT, LEVEL III Diagnosis: Bitten or stung by nonvenomous insect and other nonvenomous arthropods, initial encounter[ICD10: W57.XXXA] Diagnosis: Cellulitis of left lower limb[ICD10: L03.116] Laura Varela MD, [facility] CPT-4: 77413 03/19/2017 ([id number]) 39401 EST. P ATIENT, LEVEL IV Diagnosis: Type 2 diabetes mellitus without complications[ICD10: E11.9] Diagnosis: Essential (primary) hypertension[ICD10: I10] Diagnosis: Other specified epidermal thickening[ICD10: L85.8] Zoya Varela MD, [facility] CPT-4: 85371 01/14/2017 25219 EST. PATIENT, LEVEL III Diagnosis: Glossodynia[ICD10: K14.6] Kacy Varela MD, [facility] CPT- 4: 74860 09/23/2016 ([id number]) 89102 EST. P ATIENT, LEVEL IV Diagnosis: Encounter for screening mammogram for malignant neoplasm of breast[ICD10: Z12.31] Diagnosis: Encounter for immunization[ICD10: Z23] Zoya Varela MD, [facility] CPT-4: 73564 09/16/2016 ([id number]) 10242 EST. P ATIENT, LEVEL III Diagnosis: Diseases of lips[ICD10: K13.0] Diagnosis: Allergic rhinitis due to pollen[ICD10: J30.1] Kacy Varela MD, [facility] CPT-4: 80342 06/25/2016 ([id number]) 01235 EST. P ATIENT, LEVEL III Diagnosis: Essential (primary) hypertension[ICD10: I10] Kacy Varela MD, [facility] CPT-4: 84065 06/17/2016 70089 EST. PATIENT, LEVEL IV Diagnosis: Other acute sinusitis[ICD10: J01.80] Diagnosis: Acute laryngopharyngitis[ICD10: J06.0] Diagnosis: Other allergic rhinitis[ICD10: J30.89] Laura Varela MD, [facility] CPT-4: 42077 04/03/2016 ([id number]) 37059 EST. P ATIENT, LEVEL IV Diagnosis: Essential (primary) hypertension[ICD10: I10] Diagnosis: Localized edema[ICD10: R60.0] Diagnosis: Polyneuropathy, unspecified[ICD10: G62.9] Zoya Varela MD, [facility] CPT-4: 52846 03/13/2016 ([id number]) 18061 EST. P ATIENT, LEVEL IV Diagnosis: Essential (primary) hypertension[ICD10: I10] Diagnosis: Localized edema[ICD10: R60.0] Diagnosis: Type 2 diabetes mellitus without complications[ICD10: E11.9] Zoya Varela MD, [facility] CPT-4: 08145 01/30/2016 59631 EST. PATIENT, LEVEL IV Diagnosis: Localized edema[ICD10: R60.0] Laura Varela MD, [facility] CPT-4: 09329 12/21/2015 ([id number]) 76992 EST. P ATIENT, LEVEL III Diagnosis: Essential (primary) hypertension[ICD10: I10] Diagnosis: Allergic rhinitis due to pollen[ICD10: J30.1] Diagnosis: Cervicalgia[ICD10: M54.2] Kacy Varela MD, [facility] CPT- 4: 28046 10/09/2015 42728 EST. PATIENT, LEVEL II Diagnosis: Contact dermatitis[ICD9: 692.9] Kacy Varela MD, [facility] CPT- 4: 89424 06/12/2015 ([id number]) 29439 EST. P ATIENT, LEVEL III Diagnosis: ESSENTIAL HYPERTENSION[ICD9: 401.9] Diagnosis: DIABETES TYPE II[ICD9: 250.00] Diagnosis: Anxiety[ICD9: 300.00] Kacy Varela MD, [facility] CPT-4: 97543 06/05/2015 ([id number]) 73267 EST. P ATIENT, LEVEL IV Diagnosis: Anxiety[ICD9: 300.00] Diagnosis: ALLERGIC RHINITIS[ICD9: 477.9] Diagnosis: ESOPHAGEAL REFLUX[ICD9: 530.81] Kacy Varela MD, [facility] CPT- 4: 99091 05/15/2015 ([id number]) 76413 EST. P ATIENT, LEVEL III Diagnosis: ESSENTIAL HYPERTENSION[ICD9: 401.9] Zoya Varela MD, [facility] CPT- 4: 34979 02/06/2015 ([id number]) 77732 EST. P ATIENT, LEVEL IV Diagnosis: ESSENTIAL HYPERTENSION[ICD9: 401.9] Diagnosis: EDEMA[ICD9: 782.3] Diagnosis: DIABETES TYPE II[ICD9: 250.00] Zoya Varela MD, [facility] CPT-4: 56865 01/10/2015 ([id number]) 25778 EST. P ATIENT, LEVEL IV Diagnosis: ESSENTIAL HYPERTENSION[ICD9: 401.9] Diagnosis: DIABETES TYPE II[ICD9: 250.00] Zoya Varela MD, [facility] CPT-4: 93864 07/19/2014 ([id number]) 01432 EST. P ATIENT, LEVEL III Diagnosis: Left ankle pain[ICD9: 719.47] Kacy Varela MD, [facility] CPT- 4: 03853 06/17/2014 ([id number]) 26213 EST. P ATIENT, LEVEL III Diagnosis: ESSENTIAL HYPERTENSION[ICD9: 401.9] Diagnosis: Elevated blood sugar[ICD9: 790.29] Zoya Varela MD, [facility] CPT- 4: 87695 04/19/2014 ([id number]) 42796 EST. P ATIENT, LEVEL IV Diagnosis: ESSENTIAL HYPERTENSION[SNOMED: 38253238] Diagnosis: ESOPHAGEAL REFLUX[ICD9: 530.81] Zoya Varela MD, [facility] CPT-4: 72313 04/11/2014 ([id number]) 83895 EST. P ATIENT, LEVEL IV Diagnosis: ALLERGIC RHINITIS[ICD9: 477.9] Diagnosis: Anxiety[ICD9: 300.00] Diagnosis: Dyspnea[ICD9: 786.09] Diagnosis: ESOPHAGEAL REFLUX[ICD9: 530.81] Kacy Varela MD, [facility] CPT- 4: 55018 03/10/2014 ([id number]) 43291 EST. P ATIENT, LEVEL III Diagnosis: ALLERGIC RHINITIS[ICD9: 477.9] Diagnosis: ESSENTIAL HYPERTENSION[SNOMED: 36506204] Kacy Varela MD, [facility] CPT-4: 41240 02/02/2014 ([id number]) 31752 EST. P ATIENT, LEVEL III Diagnosis: ESSENTIAL HYPERTENSION[SNOMED: 97941213] Diagnosis: Skin irritation[ICD9: 709.9] Zoya Varela MD, [facility] CPT-4: 87349 10/25/2013 ([id number]) 06444 EST. P ATIENT, LEVEL III Diagnosis: HYPERLIPIDEMIA[ICD9: 272.4] Diagnosis: ESSENTIAL HYPERTENSION[SNOMED: 42523652] Diagnosis: EDEMA[ICD9: 782.3] Diagnosis: Encounter for long-term (current) use of other medications[ICD9: V58.69] Zoya Varela MD, [facility] CPT-4: 79029 08/24/2013 ([id number]) 59353 EST. P ATIENT, LEVEL III Diagnosis: ESSENTIAL HYPERTENSION[SNOMED: 99306180] Zoya Varela MD, C CPT-4: 55304 07/26/2013 ([id number]) 99089 EST. P ATIENT, LEVEL III Diagnosis: ESSENTIAL HYPERTENSION[SNOMED: 15544875] Zoya Varela MD, C CPT-4: 65553 06/30/2013 ([id number]) 13934 EST. P ATIENT, LEVEL III Diagnosis: ESSENTIAL HYPERTENSION[SNOMED: 66997052] Zoya Varela MD, C CPT-4: 07119 06/24/2013 ([id number]) 29744 EST. P ATIENT, LEVEL IV Diagnosis: ESSENTIAL HYPERTENSION[SNOMED: 67209771] Diagnosis: Leg pain[ICD9: 729.5] Diagnosis: Leg swelling[ICD9: 729.81] Zoya Varela MD, [facility] CPT-4: 87711 12/01/2012 ([id number]) 28905 EST. P ATIENT, LEVEL III Diagnosis: Shingles[ICD9: 053.9] Zoya Varela MD, [facility] CPT-4: 25435 10/19/2012 ([id number]) 30658 EST. P ATIENT, LEVEL IV Diagnosis: EDEMA[ICD9: 782.3] Diagnosis: ESSENTIAL HYPERTENSION[SNOMED: 86194138] Zoya Varela MD, C CPT-4: 17300 10/07/2012 ([id number]) 19163 EST. P ATIENT, LEVEL IV Diagnosis: ESSENTIAL HYPERTENSION[SNOMED: 86763087] Diagnosis: EDEMA[ICD9: 782.3] Diagnosis: Irritable bowel disease[ICD9: 564.1] Zoya Varela MD, [facility] CPT-4: 65526 2012 ([id number]) 11442 EST. P ATIENT, LEVEL III Diagnosis: ESSENTIAL HYPERTENSION[SNOMED: 53947896] Zoya Varela MD, C CPT-4: 73995 08/18/2012 ([id number]) 93164 EST. P ATIENT, LEVEL III Diagnosis: ESSENTIAL HYPERTENSION[SNOMED: 06311354] Zoya Varela MD, C CPT-4: 20131 08/04/2012 ([id number]) 81245 EST. P ATIENT, LEVEL IV Diagnosis: ESSENTIAL HYPERTENSION[SNOMED: 28296456] Diagnosis: Lumbago[ICD9: 724.2] Diagnosis: HYPERLIPIDEMIA[ICD9: 272.4] Zoya Varela MD, [facility] CPT-4: 80600 07/01/2012 ([id number]) 98773 EST. P ATIENT, LEVEL III Diagnosis: ESSENTIAL HYPERTENSION[SNOMED: 71026445] Zoya Varela MD, C CPT-4: 76452 05/20/2012 ([id number]) 76906 EST. P ATIENT, LEVEL IV Diagnosis: ESSENTIAL HYPERTENSION[SNOMED: 63591913] Diagnosis: Hot flash, menopausal[ICD9: 627.2] Zoya aVrela MD, [facility] CPT- 4: 59645 04/20/2012 09470 EST. PATIENT, LEVEL IV Diagnosis: SPASM OF MUSCLE[ICD9: 728.85] Diagnosis: Back pain[ICD9: 724.5] Diagnosis: ESSENTIAL HYPERTENSION[SNOMED: 28399771] Zoya Varela MD, C CPT-4: 35173 03/10/2012 ([id number]) 94186 EST. P ATIENT, LEVEL IV Diagnosis: COUGH[ICD9: 786.2] Diagnosis: Allergic rhinitis[ICD9: 477.9] Diagnosis: Malignant reactive hypertension[ICD9: 401.0] Zoya Varela MD, C CPT-4: 48554 02/25/2012 ([id number]) 67431 EST. P ATIENT, LEVEL III Diagnosis: ESSENTIAL HYPERTENSION[SNOMED: 23341430] Zoya Varela MD, C CPT-4: 77709 02/19/2012 86186 EST. PATIENT, LEVEL IV Diagnosis: ESSENTIAL HYPERTENSION[SNOMED: 81677939] Diagnosis: Cough[ICD9: 786.2] Kacy Varela MD, [facility] CPT-4: 95714 01/23/2012 ([id number]) 56790 EST. P ATIENT, LEVEL IV Diagnosis: HYPERLIPIDEMIA[ICD9: 272.4] Diagnosis: ESSENTIAL HYPERTENSION[SNOMED: 34650398] Zoya Varela MD, C CPT-4: 77908 01/02/2012 OFFICE VISIT, NEW - LEVEL 4 Diagnosis: ESSENTIAL HYPERTENSION[SNOMED: 20688093] Diagnosis: HYPERLIPIDEMIA[ICD9: 272.4] Diagnosis: IMPACTED CERUMEN[ICD9: 380.4] Diagnosis: Muscle spasm[ICD9: 728.85] Diagnosis: CHRONIC TENSION HEADACHE[ICD9: 339.12] Diagnosis: Neck pain, chronic[ICD9: 723.1] Diagnosis: Change in skin mole[ICD9: 216.9] Zoya Varela MD, [facility] CPT-4: 73874 12/20/2011 Plan of Care Planned Activity Notes C odes Status Date Visit Plan: Poison Sarah -kenalog injectio n today in the office-start prednisone tomorrow pt is to use topical treatments as directed. Pt is cleanse clothing in hot water with soap, and call if symptoms do not improve or if they worsen. 03/21/2017 Appointment: Kacy Moses WPtel: [address] [place], [place] [phone] (15 min) Moderate 03/21/2017 Patient Education: Patient [...] pain. 03/19/2017 Appointment: Laura Velasco WPtel: [phone] [phone] (15 min) Moderate 03/19/2017 Patient Education: Patient [...] in hearing. 01/22/2017 Appointment: Laura Velasco WPtel: [facility] [facility] - Annual Wellness Visit 01/22/2017 [...] home. 01/14/2017 Appointment: Zoya Varela WPtel: [phone] [facility] (15 min) Moderate 01/14/2017 Patient Education: [...] plan. 09/23/2016 [facility]ment[phone] [place] (15 min) Moderate 09/23/2016 Patient [...] medications. 09/16/2016 Appointment: [phone] [facility] (15 min) Moderate 09/16/2016 Patient Education: Patient Medication Summary Completed 09/16/2016 Patient Education: Obesity Completed 09/16/2016 Care Plan: SCREENINGMAMMOGRAPHYDIGITAL LOINC : 56757-2 Pending 09/16/2016 Visit Plan: Cracked/painful lips-bacteri al [...] any worse. 06/25/2016 Appointment: Kacy Moses WPtel: [facility] [place] [address] (15 min) Moderate 06/25/2016 Patient Education: [...] allergy spray. 04/03/2016 Appointment: Kacy Moses WPtel: [facility] [place]5 [phone] (30 min) Complex 04/03/2016 Patient Education: Patient [...] Completed 03/13/2016 Appointment: Zoya Varela WPtel: [phone] [facility] (15 min) Moderate 02/28/2016 Appointment: Zoya Varela WPtel: [phone] [facility] (15 min) Moderate 02/01/2016 Visit Plan: [...] treatment. 01/30/2016 Appointment: [facility]la [facility]Ptel[phone] (15 min) Moderate 01/30/2016 Patient Education: [...] home. 02/06/2015 Appointment: Zoya Varela WPtel: [phone] [facility] Follow up 02/06/2015 Patient Education: Patient [...] edema. 01/10/2015 Appointment: Zoya Varela WPtel: [phone] [facility] Sick 01/10/2015 Patient Education: Patient Medication [...] starting to become less controlled. 07/19/2014 Appointment: [phone] Follow up 07/19/2014 Patient Education: Patient Medication Summary Completed 07/19/2014 Patient Education: Hypertension Completed 07/19/2014 Care Plan: SCREENINGMAMMOGRAPHYDIGITAL [facility] : [address]356-7 Ordered 07/19/2014 Visit Plan: Left ankle bvqj-tgzoja-wfubh mend rest ice and anti inflammatories as [...] pressure readings at home. 04/19/2014 Appointment: K[facility] Msoes [facility]Ptel[phone] Diabetic education 04/19/2014 Patient Education: [...] medications. 04/11/2014 Appointment: Zoya Varela WPtel: [phone] [place] [phone] Follow up 04/11/2014 Patient Education: Patient Medication [...] to spray in the nasal steroid allergy spray.Cgohlpl-mwhxrrggymem-kgypqbk xanax at bedtime Esophageal Reflux - the patient has been counseled against excessive intake of caffiene, spicy foods, peppermint, and cinnamon - all of which can exacerbate esophageal reflux.The patient is to take medications as prescribed and call the office if the symptoms are not improving. 03/10/2014 Appointment: Zoya Varela WPtel: [phone] [facility] Other 03/10/2014 Patient Education: Patient Medication [...] spray. 2013 Appointment: Kacy Moses WPtel: [phone] [phone] [place] [address] Other 02/02/2014 Patient Education: Patient Medication Summary [...] the site. 10/25/2013 Appointment: Zoya Varela WPtel: [facility] [place] Follow up 10/25/2013 Patient Education: Patient [...] AT BEDTIME 08/24/2013 Appointment: Zoya Varela WPtel: [facility] [place] Follow up 08/24/2013 Patient Education: Patient [...] concerns. 07/26/2013 Appointment: Zoya Varela WPtel: [phone] [facility] Follow up 07/26/2013 Patient Education: Patient [...] NOT IMPROVE. 06/30/2013 Appointment: Zoya Varela WPtel: [facility] [place] Other 06/30/2013 Patient Education: Patient Medication [...] acute concerns. 06/24/2013 Appointment: Kacy Moses WPtel: [facility] [place]5 [phone] Follow up 06/24/2013 Patient Education: Patient Medication Summary Completed 06/24/2013 Patient Education: Hypertension Completed 06/24/2013 Appointment: Zoya Varela WPtel: [address] [place], [place] [phone] Other 03/23/2013 Visit Plan: Hypotension - pt is on chron ic antihypertensive medication - the medication has been adjusted down to attempt to alleviate the low blood pressures.Leg pain - Leg swelling - pt to have ultrasound on her right lower leg due to post-operative swelling and pain. 12/01/2012 Appointment: Zoya Varela WPtel: [address] [place], [place] [phone] Follow up 12/01/2012 Patient Education: Patient Medication Summary Completed 12/01/2012 Patient Education: Hypertension Completed 12/01/2012 Appointment: Zoya Varela WPtel: [address] [place], [place] [phone] [place] Follow up 10/20/2012 Visit Plan: Shingles [...] considered contagious. 10/19/2012 Appointment: Zoya Varela WPtel: [address] [place] [address] Other 10/19/2012 Patient Education: Patient Medication Summary [...] peripheral edema. 10/07/2012 Appointment: Kacy Moses WPtel: [facility] [place] [address] Other 10/07/2012 Patient Education: Hypertension Completed [...] peripheral edema. 2012 Appointment: Zoya Varela WPtel: [address] [place] [address] Other 2012 Patient Education: Patient Medication Summary [...] EVENING. 08/18/2012 Appointment: Zoya Varela WPtel: [phone] [facility] Follow up 08/18/2012 Patient Education: Patient Medication [...] knees. 08/04/2012 Appointment: Zoya Varela WPtel: [phone] [facility] Follow up 08/04/2012 Patient Education: Patient [...] twice daily. 07/01/2012 Appointment: Zoya Varela WPtel: [phone] [facility] Other 07/01/2012 Patient Education: Patient Medication [...] weeks 05/20/2012 Appointment: Zoya Varela WPtel: [phone] [facility] Follow up 05/20/2012 Patient Education: Patient Medication Summary Completed 05/20/2012 Patient Education: High Blood Pressure: Essential Hypertension Completed 05/20/2012 Appointment: Zoya Varela WPtel: [phone] [facility] Other 05/11/2012 Visit Plan: Hypertension - [...] dosing. 04/20/2012 Appointment: Z[facility] Varela WPtel: [phone] Follow up 04/20/2012 Patient Education: Patient [...] weeks. 03/10/2012 Appointment: Zoya Varela WPtel: [phone] [facility] Other 03/10/2012 Patient Education: Patient Medication Summary [...] codeine. 02/25/2012 Appointment: Zoya Varela WPtel: [phone] [facility] Other 02/25/2012 Patient Education: Patient Medication Summary [...] the office. 02/19/2012 Appointment: Zoya Varela WPtel: [phone] [facility] Other 02/19/2012 Patient Education: Patient Medication [...] the office 01/23/2012 Appointment: K[facility] Moses [facility]Ptel: [phone] [place] [address] Other 01/23/2012 Patient Education: Patient Medication Summary [...] TWICE DAILY. 01/02/2012 Appointment: Zoya Varela WPtel: [facility] [place] [facility] 01/02/2012 Patient Education: Patient Medication [...] 2 wks. 12/20/2011 Appointment: Zoya Varela WPtel: [facility] [place] New Patient 12/20/2011 Patient Education: Patient [...] edema. . Hypertension - uncontrolled - the leissa ent's medications have been modified as documented [...] spray in the nasal steroid allergy spray. Yfmqllq-vkqloogosnjl-klxmftd xanax at bedtime Esophageal Reflux - the [...]
--- OUTSIDE RECORDS SUMMARY | 2020-05-26 03:14 | XMS REPORT | CCD ---
Author Author Natali Varela Organization [facility] Address [address] [place] [address] Phone Care Team Providers Care Manual Qa Tester Name Role Phone PP Unavailable CCM Unavailable Summary Purpose Interface Exchange Insurance Providers Payer name Policy type / Coverage type Covered green party ID Effective Begin Date Effective End Date WPS Medicare Part B Medicare Part B [id number] Unknown Morgan EverettO [employer] Medicare Part B [id number] Unknown Family history Mother Diagnosis Age At Onset Liver Failure Unknown Diabetes mellitus Type 2 Unknown Hyperlipidemia Unknown Hypertension Unknown Cancer Unknown Arthritis Unknown Father Diagnosis Age At Onset Liver Failure Unknown Cancer Unknown Social History Social History Element Codes Description Effective Dates Marital status Unknown M arried 12/12/2011 Number of children Unknown 3 12/12/[address]: 7004229 Former smoker quit in 199212/12/2011 Allergies, Adverse [...] Instructions metoprolol tartrate 100 mg tablet RxNorm: 831533 TAKE ONE AND ONE-HALF (1 & 1/2) TABLET BY MOUTH EVERY MORNING AND TAKE TWO TABLETS BY MOUTH EVERY EVENING 03/28/2017 07/25/2017 Ac tive prednisone 10 mg tab lets in a dose pack RxNorm: 744457 1 Tablet(s) PO UD 03/21/2017 03/26/2017 In active 6-5-4-3-2-1 Kenalog 40 mg/mL sylvia pension for injection RxNorm: 1939335 2 Milliliter(s) Inj 03/21/2017 03/21/2017 In active doxycycline hyclate 100 mg capsule RxNorm: 3659973 1 Capsule(s) PO BID 03/19/2017 03/28/2017 In active cyclobenzaprine 10 m g tablet RxNorm: 293515 TAKE ONE TABLET BY MO UTH EVERY 8 HOURS NEEDED 02/25/2017 03/16/2017 Inactive triamcinolone aceton pineda 0.1 % topical ointment RxNorm: 9166286 1 Application TOP TI D 02/21/2017 02/20/2017 Inactive triamcinolone aceton pineda 0.1 % topical ointment RxNorm: 0628619 1 Application TOP TI D 02/21/2017 03/02/2017 Inactive doxazosin 4 mg tablet RxNorm: 862541 TAKE ONE AND ONE-HALF (1 & 1/2) TABLET B Y MOUTH BY MOUTH TWO TIMES A DAY 02/14/2017 01/09/2018 Active cyclobenzaprine 10 m g tablet RxNorm: 772450 TAKE ONE TABLET BY MO UTH EVERY 8 HOURS NEEDED 01/27/2017 02/15/2017 Inactive ammonium lactate 12 % topical cream RxNorm: 711118 1 Application TOP BID 01/14/2017 02/12/2017 In active dispense one bottle of the cream potassium chloride E R 10 mEq tablet,extended release RxNorm: 540636 1 Tablet(s) PO PRN as needed with lasix 11/13/2016 No Stop Date Active prn swelling furosemide 20 mg tablet RxNorm: 637087 1 Tablet(s) PO daily as needed edema 11/13/2016 01/11/2017 In active metoprolol tartrate 100 mg tablet RxNorm: 826085 TAKE ONE AND ONE-HALF (1 & 1/2) TABLET BY MOUTH EVERY MORNING AND TAKE TWO TABLETS BY MOUTH EVERY EVENING 11/01/2016 03/27/2017 In active atorvastatin 20 mg t ablet RxNorm: 163132 TAKE ONE TABLET BY MO UTH DAILY 10/31/2016 04/28/2017 Ac tive cyclobenzaprine 10 m g tablet RxNorm: 775185 TAKE ONE TABLET BY MO UTH EVERY 8 HOURS NEEDED 10/25/2016 12/03/2016 Inactive Lyrica 25 mg capsule RxNorm: 477395 1 Tablet(s) PO BID 09/23/2016 01/13/2017 Inactive Lyrica 50 mg capsule RxNorm: 053879 1 Capsule(s) PO BID 09/16/2016 01/13/2017 Inactive amlodipine 5 mg tablet RxNorm: 068068 Tablet(s) TAKE ONE TABLET BY MOUTH DAILY 08/28/2016 07/23/2017 Ac tive cyclobenzaprine 10 m g tablet RxNorm: 538837 TAKE ONE TABLET BY MO UTH EVERY 8 HOURS NEEDED 08/05/2016 09/13/2016 Inactive Xanax 0.25 mg tablet RxNorm: 205413 1/2-1 Tablet(s) PO QDAY PRN 07/16/2016 No Stop Date Active amlodipine 5 mg tablet RxNorm: 950452 TAKE ONE TABLET BY MOUTH DAILY 06/28/2016 08/26/2016 In active metoprolol tartrate 100 mg tablet RxNorm: 020020 Tablet(s) TAKE ONE AN D ONE-HALF (1 & 1/2) TABLET BY MOUTH EVERY MORNING AND TAKE TWO TABLETS BY MOUTH EVERY EVENING 05/02/2016 05/02/2016 Inactive metoprolol tartrate 100 mg tablet RxNorm: 477797 Tablet(s) PO TAKE ONE AND ONE-HALF (1 & 1/2) TABLET BY MOUTH EVERY MORNING AND TAKE TWO TABLETS BY MOUTH EVERY EVENING 05/02/2016 05/01/2016 Inactive metoprolol tartrate 100 mg tablet RxNorm: 335513 Tablet(s) PO TAKE ONE AND ONE-HALF (1 & 1/2) TABLET BY MOUTH EVERY MORNING AND TAKE TWO TABLETS BY MOUTH EVERY EVENING 05/02/2016 10/28/2016 Inactive tramadol 50 mg tablet RxNorm: 748399 1-2 Tablet(s) PO Q8 as needed 04/25/2016 No Stop Date Active atorvastatin 20 mg t ablet RxNorm: 497628 TAKE ONE TABLET BY MO UTH DAILY 04/25/2016 10/21/2016 In active cyclobenzaprine 10 m g tablet RxNorm: 075584 Tablet(s) PO TAKE ONE TABLET BY MOUTH EVERY 8 HOURS NEEDED 04/18/2016 06/16/2016 Inactive Kenalog 40 mg/mL sylvia pension for injection RxNorm: 1779950 1 Milliliter(s) Inj 04/04/2016 04/04/2016 In active Phenergan with Codei ne Syrup RxNorm: PO 04/03/2016 No Stop Date Active Zithromax Z-Kush 250 mg tablet RxNorm: 784030 1 Tablet(s) PO UD 04/03/2016 04/07/2016 Inactive 2 tabs on day 1 then 1 tab daily on days 2-5 amlodipine 5 mg tablet RxNorm: 597257 TAKE ONE TABLET BY MOUTH DAILY 03/27/2016 06/24/2016 In active Flexeril 10 mg tablet RxNorm: 135804 TAKE ONE TABLET BY MOUTH EVERY 8 HOURS A S NEEDED 03/14/2016 04/02/2016 Inactive Vitamin B-12 ER 2,00 0 mcg tablet,extended release RxNorm: 765588 1 Tablet(s) PO daily 03/13/2016 No Stop Date Active Vitamin B-12 ER 2,00 0 mcg tablet,extended release RxNorm: 997844 1 Tablet(s) PO daily 03/13/2016 No Stop Date Active gabapentin 100 mg ca psule RxNorm: 689268 1 Capsule(s) PO BID 03/13/2016 09/15/2016 Inactive Flexeril 10 mg tablet RxNorm: 191195 Tablet(s) TAKE ONE TABLET BY MOUTH EVERY 8 HOURS NEEDED 02/08/2016 02/27/2016 Inactive Xanax 0.25 mg tablet RxNorm: 322529 1/2-1 Tablet(s) PO QDAY PRN 02/08/2016 07/15/2016 Inactive amlodipine 5 mg tablet RxNorm: 666940 1 Tablet(s) PO daily 02/06/2016 03/26/2016 Inactive furosemide 20 mg tablet RxNorm: 512507 1 Tablet(s) PO daily 01/30/2016 06/16/2016 Inactive amlodipine 10 mg tablet RxNorm: 268428 1/2 Tablet(s) PO daily 01/30/2016 02/05/2016 Inactive doxazosin 4 mg tablet RxNorm: 293038 1.5 Tablet(s) PO BID 01/30/2016 01/23/2017 Inactive Flexeril 10 mg tablet RxNorm: 843853 TAKE ONE TABLET BY MOUTH EVERY 8 HOURS A S NEEDED 01/10/2016 01/29/2016 Inactive potassium chloride E R 10 mEq tablet,extended release RxNorm: 503887 1 Tablet(s) PO PRN as needed with lasix 12/25/2015 06/16/2016 Inactive prn swelling amlodipine 10 mg tablet RxNorm: 276423 TAKE ONE TABLET BY MOUTH EVERY MORNING 12/25/2015 12/24/2015 In active amlodipine 10 mg tablet RxNorm: 778882 TAKE ONE TABLET BY MOUTH EVERY MORNING 12/25/2015 01/29/2016 In active furosemide 20 mg tablet RxNorm: 389806 1/2 Tablet(s) PO daily as needed edema 12/21/2015 01/19/2016 In active pt needs to take 10meq potassium on days she takes the lasix metoprolol tartrate 100 mg tablet RxNorm: 319067 TAKE ONE AND ONE-HALF (1 & 1/2) TABLET BY MOUTH EVERY MORNING AND TAKE TWO TABLETS BY MOUTH EVERY EVENING 11/08/2015 12/07/2015 In active Flonase Allergy Reli ef 50 mcg/actuation nasal spray,suspension RxNorm: [place] as needed PLACE 2 SPRAYS IN EACH NOSTRIL DAILY 10/09/2015 02/05/2016 Inactive Flexeril 10 mg tablet RxNorm: 208574 1 Tablet(s) PO TID PRN TAKE ONE TABLET B Y MOUTH EVERY 8 HOURS NEEDED 10/09/2015 12/07/2015 Inactive alprazolam 0.5 mg ta blet RxNorm: 845188 TAKE ONE TABLET BY MO UTH AT BEDTIME NEEDED FOR ANXIETY 08/29/2015 11/24/2015 Inactive Flonase Allergy Reli ef 50 mcg/actuation nasal spray,suspension RxNorm: PLACE 2 SPRAYS IN EACH NOSTRIL DAILY 07/06/2015 10/08/2015 Inactive Kenalog 40 mg/mL sylvia pension for injection RxNorm: 6390822 Milliliter(s) Inj 06/12/2015 06/12/2015 In active prednisone 10 mg tab lets in a dose pack RxNorm: 919732 1 Tablet(s) PO UD 06/12/2015 06/17/2015 In active 6-5-4-3-2-1 acyclovir 800 mg tablet RxNorm: 056533 1 Tablet(s) PO TID 06/12/2015 06/21/2015 Inactive Xanax 0.25 mg tablet RxNorm: 347467 1/2-1 Tablet(s) PO QDAY PRN 05/15/2015 02/07/2016 Inactive Flonase Allergy Reli ef 50 mcg/actuation nasal spray,suspension RxNorm: 2 [place] NASAL daily 05/15/2015 06/13/2015 Inactive Kenalog 40 mg/mL sylvia pension for injection RxNorm: 0375884 Milliliter(s) Inj 05/15/2015 05/15/2015 In active metoprolol tartrate 100 mg tablet RxNorm: 623119 TAKE ONE AND ONE-HALF (1 & 1/2) TABLET BY MOUTH EVERY MORNING AND TAKE TWO TABLETS BY MOUTH EVERY EVENING 05/07/2015 06/05/2015 In active metoprolol tartrate 100 mg tablet RxNorm: 398790 TAKE ONE AND ONE-HALF (1 & 1/2) TABLET BY MOUTH EVERY MORNING AND TAKE TWO TABLETS BY MOUTH EVERY EVENING 04/05/2015 05/04/2015 In active amlodipine 10 mg tablet RxNorm: 300181 TAKE ONE TABLET BY MOUTH EVERY MORNING 03/10/2015 12/04/2015 In active alprazolam 0.5 mg ta blet RxNorm: 506851 TAKE ONE TABLET BY MO UT EVERY NIGHT AT BEDTIME NEEDED FOR ANXIETY 02/23/2015 03/24/2015 Inactive (Response to an electronic controlled substance refill request - RxReferenceNumber: [id number]) alprazolam 0.5 mg ta blet RxNorm: 331607 1 Tablet(s) PO QHS as needed anxiety 02/23/2015 08/29/2015 In active (Response to an electronic controlled salas bstance refill request - RxReferenceNumber: [id number]) doxazosin 4 mg tablet RxNorm: 110561 TAKE ONE TABLET BY MOUTH TWICE A DAY 02/13/2015 01/29/2016 In active atorvastatin 20 mg t ablet RxNorm: 720353 TAKE ONE TABLET BY MO UTH EVERY DAY 01/19/2015 07/17/2015 In active atorvastatin 20 mg t ablet RxNorm: 603877 Tablet(s) TAKE ONE TA BLET BY MOUTH EVERY DAY 01/19/2015 01/18/2015 Inactive [SAVINGS FOR NON-COVERED DRUGS -- BIN:00 3585, PCN: ASPROD1, Group: XXXXX, ID# [id number], Questions: . THIS IS NOT INSURANCE.] Maxzide-25mg 37.5 mg -25 mg tablet RxNorm: 88997 1 Tablet(s) PO daily 01/10/2015 10/08/2015 Inactive [SAVINGS FOR NON-COVERED DRUGS -- BIN:00 3585, PCN: ASPROD1, Group: XXXXX, ID# [id number], Questions: . THIS IS NOT INSURANCE.] metoprolol tartrate 100 mg tablet RxNorm: 308424 TAKE ONE AND ONE-HALF (1 & 1/2) TABLET BY MOUTH EVERY MORNING AND TAKE TWO TABLETS BY MOUTH EVERY EVENING 12/05/2014 01/03/2015 In active Flexeril 10 mg tablet RxNorm: 437824 TAKE ONE TABLET BY MOUTH EVERY 8 HOURS A S NEEDED 10/31/2014 06/27/2015 Inactive alprazolam 0.5 mg ta blet RxNorm: 587618 1 Tablet(s) PO QHS TA KE ONE TABLET BY MOUTH EVERY NIGHT AT BEDTIME AND NEEDED FOR PANIC ATTACKS 10/21/2014 10/23/2014 Inactive (Appended: Controlled substance eRx refi ll - RxReferenceNumber: [id number]) alprazolam 0.5 mg ta blet RxNorm: 910962 TAKE ONE TABLET BY MO UTH EVERY NIGHT AT BEDTIME NEEDED FOR ANXIETY 10/20/2014 11/18/2014 Inactive (Response to an electronic controlled substance refill request - RxReferenceNumber: [id number]) amlodipine 10 mg tablet RxNorm: 330257 1 Tablet(s) PO QAM 09/09/2014 03/07/2015 Inactive now taking full tab [SAVINGS FOR UNINSURED PATIENTS -- BIN:869682, PCN: ASPROD1, Group: [id number], ID# [id number], Process claim through [employer], for questions: . THIS IS NOT INSURANCE.] metoprolol tartrate 100 mg tablet RxNorm: 557060 TAKE ONE AND ONE-HALF (1 & 1/2) TABLET BY MOUTH EVERY MORNING AND TAKE TWO TABLETS BY MOUTH EVERY EVENING 09/03/2014 10/02/2014 In active alprazolam 0.5 mg ta blet RxNorm: 145070 TAKE ONE TABLET BY MO UTH EVERY NIGHT AT BEDTIME AND NEEDED FOR PANIC ATTACKS 08/29/2014 09/12/2014 Inactive (Response to an electronic controlled substance refill request - RxReferenceNumber: [id number]) Zithromax Z-Kush 250 mg tablet RxNorm: 371524 1 Tablet(s) PO UD 07/26/2014 07/25/2014 Inactive 2 tabs on day 1 then 1 tab daily on days 2-5 Zithromax Z-Kush 250 mg tablet RxNorm: 189136 1 Tablet(s) PO UD 07/26/2014 07/30/2014 Inactive 2 tabs on day 1 then 1 tab daily on days 2-5 alprazolam 0.5 mg ta blet RxNorm: 240296 Tablet(s) PO TAKE ONE TABLET BY MOUTH EVERY NIGHT AT BEDTIME AND NEEDED FOR PANIC ATTACKS 07/08/2014 08/30/2014 Inactive (Appended: Controlled substance eRx refill - RxReferenceNumber: [id number]) atorvastatin 20 mg t ablet RxNorm: 062343 TAKE ONE TABLET BY MO UTH EVERY DAY 04/25/2014 01/18/2015 In active Carafate 1 gram tablet RxNorm: 428544 Tablet(s) PO TAKE ONE TABLET BY MOUTH FO UR TIMES A DAY 04/14/2014 10/08/2015 Inactive Fish Oil 1,000 mg ca psule RxNorm: 1 Capsule(s) PO TID 04/13/2014 10/08/2015 Inactive Flexeril 10 mg tablet RxNorm: 125680 1 Tablet(s) PO Q8 PRN 04/01/2014 04/10/2014 Inactive Carafate 1 gram tablet RxNorm: 775096 1 Tablet(s) PO QID 03/10/2014 04/08/2014 Inactive chlordiazepoxide-cli dinium 5 mg-2.5 mg capsule RxNorm: 166665 1 Capsule(s) PO TID P RN 03/10/2014 04/10/2014 Inactive doxazosin 4 mg tablet RxNorm: 261863 1 Tablet(s) PO BID 02/02/2014 02/12/2015 Inactive Kenalog 40 mg/mL sylvia pension for injection RxNorm: 0104427 Milliliter(s) Inj 02/02/2014 02/02/2014 In active atorvastatin 20 mg t ablet RxNorm: 778603 Tablet(s) PO TAKE ONE TABLET BY MOUTH EVERY DAY 01/10/2014 04/24/2014 Inactive alprazolam 0.5 mg ta blet RxNorm: 753183 Tablet(s) PO TAKE ONE TABLET BY MOUTH EVERY NIGHT AT BEDTIME AND NEEDED FOR PANIC ATTACKS 01/10/2014 07/07/2014 Inactive (Appended: Controlled substance eRx refill - RxReferenceNumber: [id number]) alprazolam 0.5 mg ta blet RxNorm: 120151 1 Tablet(s) PO QHS TA KE ONE TABLET BY MOUTH EVERY NIGHT AT BEDTIME AND NEEDED FOR PANIC ATTACKS 01/10/2014 10/20/2014 Inactive (Appended: Controlled substance eRx refi ll - RxReferenceNumber: [id number]) alprazolam 0.5 mg ta blet RxNorm: 395410 Tablet(s) PO TAKE ONE TABLET BY MOUTH EVERY NIGHT AT BEDTIME AND NEEDED FOR PANIC ATTACKS 01/10/2014 01/09/2014 Inactive (Appended: Controlled substance eRx refill - RxReferenceNumber: [id number]) Carafate 1 gram tablet RxNorm: 027709 1 Tablet(s) PO QID 12/16/2013 01/14/2014 Inactive Nexium 40 mg capsule ,delayed release RxNorm: 497351 Capsule(s) PO TAKE ON E CAPSULE BY MOUTH EVERY DAY 11/25/2013 03/12/2016 Inactive doxazosin 4 mg tablet RxNorm: 851752 1/2 Tablet(s) PO QPM 10/21/2013 10/20/2013 Inactive alprazolam 0.5 mg ta blet RxNorm: 913445 1 Tablet(s) PO as dir ected q hs and prn panic attacks 10/18/2013 01/10/2014 Inactive doxazosin 4 mg tablet RxNorm: 263513 1 q am 1/2 q pm Tablet(s) PO 09/21/2013 02/01/2014 Inactive doxazosin 4 mg tablet RxNorm: 022486 1 q am 1/2 q pm Tablet(s) PO 09/21/2013 09/20/2013 Inactive amlodipine 10 mg tablet RxNorm: 773762 1 Tablet(s) PO QAM 08/30/2013 08/24/2014 Inactive now taking full tab metoprolol tartrate 100 mg tablet RxNorm: 111370 2 Tablet(s) PO QPM 08/24/2013 10/22/2013 Inactive alprazolam 0.5 mg ta blet RxNorm: 036074 1 Tablet(s) PO as dir ected q hs and prn panic attacks 07/29/2013 10/17/2013 Inactive Benicar 20 mg tablet RxNorm: 977572 1 Tablet(s) PO daily 07/26/2013 08/09/2013 Inactive amlodipine 10 mg tablet RxNorm: 501264 1 Tablet(s) PO QAM 07/19/2013 08/29/2013 Inactive cyclobenzaprine 5 mg tablet RxNorm: 130752 1 Tablet(s) PO TID MI N one pill every 8 hours as needed for muscle spasms. 07/19/2013 03/31/2014 Inactive Kenalog 40 mg/mL Sylvia p for Injection RxNorm: 5043388 1 Milliliter(s) Inj 06/30/2013 06/30/2013 In active prednisone 10 mg tab lets in a dose pack RxNorm: 667413 1 Tablet(s) PO as doc tor directed take steroid taper as directed on box 06/30/2013 07/09/2013 Inactive disp ense one PACK meclizine 25 mg tablet RxNorm: 548980 1 Tablet(s) PO Q6 PRN 1/2 - 1 pill every 6 hours as needed for vertigo 06/30/2013 08/10/2013 Inactive metoprolol tartrate 100 mg tablet RxNorm: 908851 1.5 Tablet(s) PO BID 06/30/2013 08/23/2013 In active metoprolol tartrate 100 mg tablet RxNorm: 469746 1 Tablet(s) PO BID 06/24/2013 06/29/2013 Inactive metoprolol tartrate 100 mg tablet RxNorm: 393193 1 Tablet(s) PO daily 06/17/2013 06/23/2013 In active metoprolol tartrate 100 mg tablet RxNorm: 571430 1 Tablet(s) PO daily 06/17/2013 06/16/2013 In active Toprol XL 100 mg tab let,extended release RxNorm: 685579 Tablet(s) PO TAKE ONE AND ONE- HALF TABLET BY MOUTH EVERY MORNING AND ONE TABLET IN THE EVENING 05/05/2013 06/22/2013 In active alprazolam 0.5 mg ta blet RxNorm: 601367 1 Tablet(s) PO as dir ected q hs and prn panic attacks 04/06/2013 07/28/2013 Inactive doxazosin 4 mg tablet RxNorm: 414839 Tablet(s) PO TAKE ONE TABLET BY MOUTH EV KANE DAY 04/01/2013 09/20/2013 Inactive Toprol XL 100 mg tab let,extended release RxNorm: 208085 Tablet(s) PO TAKE ONE AND ONE- HALF TABLET BY MOUTH EVERY MORNING AND ONE TABLET IN THE EVENING 12/25/2012 05/04/2013 In active Lasix 20 mg tablet RxNorm: 951886 1 Tablet(s) PO QDAY PRN Take 1 tab daily x 3 days then as needed 12/02/2012 04/10/2014 Inactive potassium chloride E R 20 mEq tablet,extended release(part/cryst) RxNorm: 653751 1 Tablet(s) PO PRN 12/02/2012 10/04/2013 Inactive prn swelling alprazolam 0.5 mg ta blet RxNorm: 181163 1 Tablet(s) PO as dir ected q hs and prn panic attacks 12/01/2012 04/05/2013 Inactive amlodipine 10 mg tablet RxNorm: 509857 1/2 Tablet(s) PO QAM 12/01/2012 07/18/2013 Inactive fluconazole 150 mg t ablet RxNorm: 497045 1 Tablet(s) PO daily 11/16/2012 11/20/2012 Inactive fluconazole 150 mg t ablet RxNorm: 219487 1 Tablet(s) PO daily 11/16/2012 11/15/2012 Inactive Nexium 40 mg capsule ,delayed release RxNorm: 193847 1 Capsule(s) PO daily 10/23/2012 11/16/2013 In active acyclovir 400 mg tablet RxNorm: 388835 1 Tablet(s) PO TID 10/19/2012 10/28/2012 Inactive chlordiazepoxide-cli dinium 5 mg-2.5 mg capsule RxNorm: 692681 1 Capsule(s) PO TID P RN 2012 12/22/2013 Inactive Voltaren 1 % Topical Gel RxNorm: 394553 4 Gram(s) TOP QID pt is to use 2 grams to each hand and 4 grams to knees. 08/18/2012 04/10/2014 Inactive doxazosin 4 mg tablet RxNorm: 246982 1 Tablet(s) PO QAM 08/18/2012 10/16/2012 Inactive atorvastatin 20 mg t ablet RxNorm: 126051 1 Tablet(s) PO HS 08/12/2012 08/11/2012 Inactive may have #90 x3 infection atorvastatin 20 mg t ablet RxNorm: 688302 1 Tablet(s) PO HS 08/12/2012 09/05/2013 Inactive may have #90 x3 infection doxazosin 4 mg tablet RxNorm: 800366 1 Tablet(s) PO daily 08/11/2012 08/17/2012 Inactive clonidine 0.1 mg/24 hr Weekly Transderm Patch RxNorm: 202584 1 Patch TD QW 08/04/2012 08/10/2012 In active Influenza Virus Vacc ine 0.5 mL RxNorm: IM 08/04/2012 08/04/2012 Inactive cyclobenzaprine 5 mg tablet RxNorm: 911640 1 Tablet(s) PO TID MI N one pill every 8 hours as needed for muscle spasms. 07/13/2012 11/09/2012 Inactive cyclobenzaprine 5 mg tablet RxNorm: 160357 1 Tablet(s) PO TID MI N one pill every 8 hours as needed for muscle spasms. 07/09/2012 07/12/2012 Inactive gabapentin 100 mg ca psule RxNorm: 674493 1 Capsule(s) PO TID 07/01/2012 12/01/2012 Inactive atorvastatin 20 mg t ablet RxNorm: 004281 1/2 Tablet(s) PO daily 07/01/2012 08/11/2012 Inactive may of 90 day supply if cheaper Toprol XL 100 mg tab let,extended release RxNorm: 042795 Tablet(s) PO BID 11/2 in am and 1 in evening 07/01/2012 06/16/2013 Inactive 1 1/2 q am 1 in polly alprazolam 0.5 mg ta blet RxNorm: 300201 1 Tablet(s) PO as dir ected q hs and prn panic attacks 06/24/2012 11/30/2012 Inactive amlodipine 10 mg tablet RxNorm: 068781 1 Tablet(s) PO QAM 06/19/2012 11/30/2012 Inactive benazepril 20 mg tablet RxNorm: 643033 1 Tablet(s) PO daily 06/19/2012 06/13/2013 Inactive one daily at noon Toprol XL 100 mg tab let,extended release RxNorm: 881812 Tablet(s) PO BID 06/19/2012 06/30/2012 In active 1 1/2 q am 1 in polly Toprol XL 100 mg tab let,extended release RxNorm: 561294 1 1/2 Tablet(s) PO BI D 04/27/2012 06/18/2012 In active 90 or 30 day supply, whatever ins will a llow Lotrel 10 mg-20 mg Cap RxNorm: 300956 1 Capsule(s) PO daily 04/20/2012 08/04/2012 Inactive estradiol 0.5 mg Tab RxNorm: 900180 1 Tablet(s) PO BID 04/20/2012 12/02/2012 Inactive Toprol XL 100 mg 24 hr Tab RxNorm: 005948 1 1/2 Tablet(s) PO BID 04/14/2012 04/26/2012 Inactive Toprol XL 100 mg 24 hr Tab RxNorm: 068745 Tablet(s) PO daily 03/31/2012 04/13/2012 Inactive new directions: one q am 1/2 every evepl ease put on file until she needs filled Lipitor 10 mg tablet RxNorm: 558939 1 Tablet(s) PO daily 03/31/2012 12/02/2012 Inactive march supply if cheaper Toprol XL 100 mg 24 hr Tab RxNorm: 460314 1 Tablet(s) PO daily 03/11/2012 03/30/2012 Inactive Boniva 150 mg Tab RxNorm: 578788 1 Tablet(s) PO weekly 02/19/2012 12/02/2012 Inactive Detrol LA 4 mg capsu le,extended release RxNorm: 140164 1 Capsule(s) PO daily 02/19/2012 03/12/2016 In active doxycycline hyclate 100 mg Tab RxNorm: 795710 1 Tablet(s) PO BID 01/23/2012 02/25/2012 Inactive Rocephin 500 mg Solu tion for Injection RxNorm: 158403 1 Milliliter(s) Inj 01/23/2012 01/23/2012 In active Kenalog 40 mg/mL Sylvia p for Injection RxNorm: 8240053 1 Milliliter(s) Inj 01/23/2012 01/23/2012 In active cyclobenzaprine 5 mg tablet RxNorm: 314820 1 Tablet(s) PO TID MI N one pill every 8 hours as needed for muscle spasms. 12/20/2011 04/17/2012 Inactive clonidine 0.1 mg Tab RxNorm: 196512 1 Tablet(s) PO BID 12/20/2011 02/25/2012 Inactive Vitamin D3 5,000 uni t tablet RxNorm: 889816 1 Tablet(s) PO daily No Start Date Active Nexium 24HR 22.3 mg capsule,delayed release RxNorm: 838988 1 Capsule(s) PO daily as needed No Start Date Active Fish Oil 360 mg-1,20 0 mg capsule,delayed release RxNorm: 1 Capsule(s) PO daily No Start Date Active Lotrel 10 mg-20 mg Cap RxNorm: 523684 1 Capsule(s) PO daily No Start Date 02/24/2012 Inactive benazepril 20 mg tablet RxNorm: 212019 1 Tablet(s) PO No Start Date 06/18/2012 Inactive one daily at noon Vimovo 500 mg-20 mg multiphase, immed & delay rel Tab RxNorm: 968380 1 Tablet(s) PO BID No Start Date 12/01/2012 Inactive B12 1000 mcg RxNorm: 2 IM daily No Start Date 03/12/2016 Inactive Fish Oil 1,000 mg ca psule RxNorm: 1 Capsule(s) PO BID No Start Date 04/12/2014 Inactive Benicar 40 mg tablet RxNorm: 436630 1 Tablet(s) PO daily No Start Date 10/24/2013 Inactive Carafate 1 gram tablet RxNorm: 329332 Oral No Start Date 12/15/2013 Inactive Vitamin B-12 1,000 m cg tablet RxNorm: 738590 1 Tablet(s) PO daily No Start Date 03/12/2016 Inactive amlodipine 10 mg tablet RxNorm: 364069 1 Tablet(s) PO daily No Start Date 06/18/2012 Inactive Phenergan VC-Codeine 6.25 mg-5 mg-10 mg/5 mL Syrup RxNorm: 135773 5-10 Milliliter(s) PO Q6 PRN No Start Date 04/10/2014 Inactive Celebrex 200 mg capsule RxNorm: 836463 1 Capsule(s) PO daily No Start Date 10/08/2015 Inactive Percocet 5 mg-325 mg tablet RxNorm: 9492287 1-2 Tablet(s) PO Q6 PRN No Start Date 06/16/2014 Inactive Exforge 10 mg-320 mg Tab RxNorm: 185321 1 Tablet(s) PO daily sample No Start Date 05/20/2012 Inactive Lipitor 10 mg Tab RxNorm: 424953 1 Tablet(s) PO daily No Start Date 03/30/2012 Inactive tramadol 50 mg tablet RxNorm: 954585 1-2 Tablet(s) PO Q8 as needed No Start Date 04/24/2016 Inactive Lasix 20 mg tablet RxNorm: 466026 1 Tablet(s) PO QDAY PRN Take 1 tab daily x 3 days then as needed No Start Date 12/01/2012 Inactive potassium chloride E R 20 mEq tablet,extended release(part/cryst) RxNorm: 3254558 1 Tablet(s) PO QDAY PRN No Start Ochoa e 12/01/2012 Inactive Toprol XL 100 mg 24 hr Tab RxNorm: 580913 1 Tablet(s) PO daily No Start Date 03/10/2012 Inactive MIDRIN 325 mg-65 mg- 100 mg Cap RxNorm: 425201 1 Capsule(s) PO PRN No Start Date 05/20/2012 Inactive Nexium 40 mg capsule ,delayed release RxNorm: 650434 1 Capsule(s) PO daily No Start Date 10/22/2012 Inactive Detrol LA 4 mg 24 hr Cap RxNorm: 887076 Oral No S tart Date 02/18/2012 Inactive Boniva 150 mg Tab RxNorm: 113092 Oral No Start Date 02/18/2012 Inactive Flexeril 10 mg tablet RxNorm: 941213 1 Tablet(s) PO Q8 PRN No Start Date 03/31/2014 Inactive clidinium bromide Oral RxNorm: Oral No Start Date 12/01/2012 Inactive alprazolam 0.5 mg ta blet RxNorm: 527112 1 Tablet(s) PO as dir ected q hs and prn panic attacks No Start Date 06/23/2012 Inactive chlordiazepoxide Oral RxNorm: Oral No Start Date 12/01/2012 Inactive metoprolol tartrate 100 mg tablet RxNorm: 881370 Tablet(s) PO TAKE ONE AND ONE-HALF (1 & 1/2) TABLET BY MOUTH EVERY MORNING AND TAKE TWO TABLETS BY MOUTH EVERY EVENING No Start Date 08/03/2014 Inactive furosemide 20 mg tablet RxNorm: 728888 1 Tablet(s) PO daily No Start Date 01/29/2016 Inactive Calcium Oral RxNorm: Oral No Start Date 03/12 Inactive Nasonex 50 mcg/actua tion [place] RxNorm: 857202 1 [place] NASAL BID No Start Date 04/10/2014 Inactive Medication Administered Medication Codes Instruc tions Start Date Status Kenalog 40 mg/mL suspension for injection RxNorm: 1950094 2Milliliter 03/21/2017 N o longer Active Kenalog 40 mg/mL suspension for injection RxNorm: 4532427 1Milliliter 04/04/2016 N o longer Active Kenalog 40 mg/mL suspension for injection RxNorm: 7299365 Milliliter 06/12/2015 No longer Active Kenalog 40 mg/mL suspension for injection RxNorm: 9906046 Milliliter 05/15/2015 No longer Active Kenalog 40 mg/mL suspension for injection RxNorm: 5129217 Milliliter 02/02/2014 No longer Active Kenalog 40 mg/mL Susp for Injection RxNorm: 2093469 1Milliliter 06/30/2013 N o longer Active Influenza Virus Vaccine 0.5 mL RxNorm: 08/04/2012 No longer Active Rocephin 500 mg Solution for Injection RxNorm: 706931 1Milliliter 01/23/2012 N o longer Active Kenalog 40 mg/mL Susp for Injection RxNorm: 6241287 1Milliliter 01/23/2012 N o longer Active Immunizations [...] With Differential Ord2 RDW 14.8 % 06/05/2015 %Hba1C Cij593 % HbA1c 41861-8 5.7 % 06/05/2015 %Hba1C Bkh435 Gluc Ave 117 mg/dL 06/05/2015 Lipid Ord30 CHOL 171 mg/dL 06/05/2015 Lipid Ord30 HDL 55.0 mg/dl 06/05/2015 Lipid Ord30 TRIG 178 mg/dL 06/05/2015 Lipid Ord30 LDL 80 mg/dL 06/05/2015 Lipid Ord30 C/HDL 3.1 Ratio 06/05/2015 Tsh Ord6 hTSH II 1.99 uIU/mL 06/05/2015 Comp Metabolic Tha784 NA 138 mEq/L 06/05/2015 Comp Metabolic Zku258 K 4.3 mEq/L 06/05/2015 Comp Metabolic Dcg937 CL 100 mEq/L 06/05/2015 Comp Metabolic Uyd564 CO2 29.0 mEq/L 06/05/2015 Comp Metabolic Cky029 AN ION GAP 13 06/05/2015 Comp Metabolic Jcr529 GL UCOSE 85 mg/dL 06/05/2015 Comp Metabolic Deh292 Cr eat 0.7 mg/dL 06/05/2015 Comp Metabolic Jgc327 eG FR 94 ml/min/1.73m2 06/05 Comp Metabolic Ihq318 BUN 16 mg/dL 06/05/2015 Comp Metabolic Ouv562 B/ C Ratio 24.2 Ratio 06/05/2015 Comp Metabolic Fyn206 CA LCIUM 9.5 mg/dL 06/05/2015 Comp Metabolic Dpb209 AL K PHOS 69 U/L 06/05/2015 Comp Metabolic Nty833 T(SGOT) 22 U/L 06/05/2015 Comp Metabolic Ypa859 AL T(SGPT) 26 U/L 06/05/2015 Comp Metabolic Rtf400 BI LI T 0.5 mg/dL 06/05/2015 Comp Metabolic Hxx226 AL BUMIN 4.2 g/dL 06/05/2015 Comp Metabolic Boj334 TP RO 6.1 g/dL 06/05/2015 Comp Metabolic Qll813 GL OB 1.9 g/dL 06/05/2015 Comp Metabolic Mgc427 A/ G Ratio 2.2 Ratio 06/05/2015 Comp Metabolic Dtl702 Os mo 276 mOsmo 06/05/2015 CHEM 14 4684879 AST 21 U/L 07/15/2014 CHEM 14 0915033 ALT 23 IU/L 07/15/2014 CHEM 14 7496985 BUN 14 MG/DL 07/15/2014 CHEM 14 6735050 ALBUMIN 4.2 GM/DL 07/15/2014 CHEM 14 0148828 CHLORIDE 104 MMOL/L 07/15/2014 CHEM 14 0180899 BILI TOT 0.4 MG/DL 07/15/2014 CHEM 14 6411135 ALK PHOS 88 U/L 07/15/2014 CHEM 14 1496193 SODIUM 140 MMOL/L 07/15/2014 CHEM 14 7325012 CREATINI NE 0.63 MG/DL 07/15/2014 CHEM 14 3938089 CALCIUM 9.4 MG/DL 07/15/2014 CHEM 14 1275434 POTASSIUM 4.0 MMOL/L 07/15/2014 CHEM 14 5211493 PROT TOT 6.4 GM/DL 07/15/2014 CHEM 14 0005284 GLUCOSE 90 MG/DL 07/15/2014 CHEM 14 8487651 BICARB 30 MMOL/L 07/15/2014 CHEM 14 5134277 ANION GAP 6 MEQ/L 07/15/2014 GFR CALC 1274332 GFR AA >60 ML/MIN 07/15/2014 GFR CALC 7815481 GFR NON -AA >60 ML/MIN 07/15/2014 A1C HPLC 8997170 A1C HPLC 24086-1 5.6 % 07/15/2014 A1C HPLC 6028869 A1C HPLC 64508-4 6.0 % 04/13/2014 LIPID GRP HDL TE ST 59 MG/DL 04/12/2014 LIPID GRP TRIG 177 MG/DL 04/12/2014 LIPID GRP TEST L DL 106 MG/DL 04/12/2014 LIPID GRP CHOL 200 MG/DL 04/12/2014 LIPID GRP RCHOL/ HDL 3.39 RATIO 04/12/2014 TSH 1547139 TSH 1.875 uIU/ML 04/12/2014 CBC 2920547 WBC 4.6 10e9/L 04/12/2014 CBC 3324188 RBC 4.52 10e12/L 04/12/2014 CBC 5138579 HGB 13.1 g/dL 04/12/2014 CBC 7208299 HCT DET 39.2 % 04/12/2014 CBC 3809057 MCV 86.7 fL 04/12/2014 CBC 8576749 MCH 29.0 pg 04/12/2014 CBC 2149820 MCHC 33.4 g/dL 04/12/2014 CBC 7683581 PLT 233 10e9/L 04/12/2014 CBC 7554545 MPV 9.8 fL 04/12/2014 CBC 5239064 AN % 59.5 % 04/12/2014 CBC 1023731 LY % 28.6 % 04/12/2014 CBC 4260239 MON % 10.0 % 04/12/2014 CBC 7437232 EOS % 1.5 % 04/12/2014 CBC 9378921 BASO % 0.4 % 04/12/2014 CBC 3602973 RDW 13.7 % 04/12/2014 CBC 5736225 ABS AN 2.74 10e9/L 04/12/2014 CBC 5761784 ABS LYMPH 1.32 10e9/L 04/12/2014 CBC 1841001 ABS MONO 0.46 10e9/L 04/12/2014 CBC 3873919 ABS EOS 0.07 10e9/L 04/12/2014 CBC 5070979 ABS BASO 0.02 10e9/L 04/12/2014 CBC 3320757 RDW-SD 42.6 fL 04/12/2014 CHEM 14 6566730 AST 17 U/L 04/12/2014 CHEM 14 8519399 ALT 20 IU/L 04/12/2014 CHEM 14 0600157 BUN 14 MG/DL 04/12/2014 CHEM 14 9368496 ALBUMIN 4.2 GM/DL 04/12/2014 CHEM 14 8853023 CHLORIDE 104 MMOL/L 04/12/2014 CHEM 14 8056544 BILI TOT 0.3 MG/DL 04/12/2014 CHEM 14 7255858 ALK PHOS 80 U/L 04/12/2014 CHEM 14 5671502 SODIUM 141 MMOL/L 04/12/2014 CHEM 14 0236345 CREATINI NE 0.62 MG/DL 04/12/2014 CHEM 14 9525649 CALCIUM 9.4 MG/DL 04/12/2014 CHEM 14 8064611 POTASSIUM 3.5 MMOL/L 04/12/2014 CHEM 14 5050816 PROT TOT 6.5 GM/DL 04/12/2014 CHEM 14 8778097 GLUCOSE 89 MG/DL 04/12/2014 CHEM 14 2235061 BICARB 29 MMOL/L 04/12/2014 CHEM 14 8358598 ANION GAP 8 MEQ/L 04/12/2014 GFR CALC 0411086 GFR AA >60 ML/MIN 04/12/2014 GFR CALC 0873482 GFR NON -AA >60 ML/MIN 04/12/2014 LIPID GRP HDL TE ST 57 MG/DL 08/24/2013 LIPID GRP TRIG 183 MG/DL 08/24/2013 LIPID GRP 2520209 TEST L DL 64 MG/DL 08/24/2013 LIPID GRP CHOL 158 MG/DL 08/24/2013 LIPID GRP RCHOL/ HDL 2.77 RATIO 08/24/2013 GFR CALC 6062415 GFR AA >60 ML/MIN 08/24/2013 GFR CALC 5807100 GFR NON -AA >60 ML/MIN 08/24/2013 CHEM 14 6883052 AST 13 U/L 08/24/2013 CHEM 14 9057800 ALT 15 IU/L 08/24/2013 CHEM 14 4012441 BUN 14 MG/DL 08/24/2013 CHEM 14 2830588 ALBUMIN 4.3 GM/DL 08/24/2013 CHEM 14 4417111 CHLORIDE 106 MMOL/L 08/24/2013 CHEM 14 0379829 BILI TOT 0.3 MG/DL 08/24/2013 CHEM 14 2027795 ALK PHOS 75 U/L 08/24/2013 CHEM 14 6149115 SODIUM 141 MMOL/L 08/24/2013 CHEM 14 6244052 CREATINI NE 0.56 MG/DL 08/24/2013 CHEM 14 2592272 CALCIUM 9.1 MG/DL 08/24/2013 CHEM 14 7509244 POTASSIUM 4.2 MMOL/L 08/24/2013 CHEM 14 8637245 PROT TOT 6.0 GM/DL 08/24/2013 CHEM 14 3184853 GLUCOSE 83 MG/DL 08/24/2013 CHEM 14 0370726 BICARB 28 MMOL/L 08/24/2013 CHEM 14 5209507 ANION GAP 7 MEQ/L 08/24/2013 CBC 6385317 WBC 4.7 10e9/L 08/24/2013 CBC 9614152 RBC 4.33 10e12/L 08/24/2013 CBC 2379716 HGB 12.5 g/dL 08/24/2013 CBC 6221912 HCT DET 38.2 % 08/24/2013 CBC 8134619 MCV 88.2 fL 08/24/2013 CBC 3627014 MCH 28.9 pg 08/24/2013 CBC 6937634 MCHC 32.7 g/dL 08/24/2013 CBC 7429518 PLT 218 10e9/L 08/24/2013 CBC 9827701 MPV 10.4 fL 08/24/2013 CBC 2275435 AN % 61.9 % 08/24/2013 CBC 4392632 LY % 24.8 % 08/24/2013 CBC 7350745 MON % 10.3 % 08/24/2013 CBC 9462255 EOS % 2.1 % 08/24/2013 CBC 8967054 BASO % 0.9 % 08/24/2013 CBC 6106310 RDW 14.6 % 08/24/2013 CBC 3802597 ABS AN 2.91 10e9/L 08/24/2013 CBC 1712290 ABS LYMPH 1.17 10e9/L 08/24/2013 CBC 3278869 ABS MONO 0.48 10e9/L 08/24/2013 CBC 9832506 ABS EOS 0.10 10e9/L 08/24/2013 CBC 5979129 ABS BASO 0.04 10e9/L 08/24/2013 CBC 2552544 RDW-SD 46.7 fL 08/24/2013 TSH 0526102 TSH 1.208 uIU/ML 08/24/2013 Review of Systems [...] clear 01/10/2015 None Full Exam - General 1995 Ears/Nose/Throat [...] accomodation 10/25/2013 None Full Exam - General 1995 [...] clear 08/18/2012 None Full Exam - General 1995 Ears/Nose/Throat oral cavity/pharynx/larynx Overall: no masses 08/18/2012 None Full Exam - General 1995 Ears/Nose/Throat oral cavity/pharynx/larynx Overall: oral mucosa clear 08/18/2012 None Full Exam - General 1995 Eyes [...] bilaterally 04/20/2012 None Full Exam - General 1995 Respiratory respiratory effort/rhythm Overall: no retractions 04/20/2012 [...] atraumatic 01/02/2012 None Full Exam - General 1995 Musculoskeletal head and neck Cervical Spine: presence [...] Date TRIAMCINOLONE ACET I [place] NOS CPT-4: A1806Ndhradi 03/21/2017 PPPS, SUBSEQ VISIT CPT-4: C5122Zwclply 01/22/2017 ADMIN PNEUMOCOCCAL V ACCINE SNOMED CT: 85070996 CPT-4: T1207Kqrcowy 09/16/2016 Pneumococcal Polysac charide Vaccine, 23-Valent, Ad CPT-4: 07459Gbviwaf 09/16/2016 THER/PROPH/DIAG INJ SC/IM CPT-4: 37545Mstqjhe 04/04/2016 TRIAMCINOLONE ACET I [place] NOS CPT-4: F1635Vjahogq 04/04/2016 ADMIN INFLUENZA VIRU S VAC CPT-4: P3267Mpygzzh 07/28/2015 FLU VACC 4 XIMENA 3 YRS PLUS IM Formatting Model/CDA Sections, Assigned to/Jen Cota SNOMED CT: 90470903 CPT-4: 37140Bxhjvht 07/28/2015 TRIAMCINOLONE ACET I [place] NOS CPT-4: H3716Vmrlvfw 06/12/2015 TRIAMCINOLONE ACET I [place] NOS CPT-4: A7239Nvlncrz 05/15/2015 ADMIN INFLUENZA VIRU S VAC CPT-4: I7633Nraeavf 07/19/2014 FLU VAC NO PRSV 4 VA L 3 YRS+ Assigned to/Jen Cota CPT-4: 95333Oafiylp 07/19/2014 TRIAMCINOLONE ACET I [place] NOS CPT-4: C1786Qvjwdov 02/02/2014 ROUTINE VENIPUNCTURE CPT-4: 92182Byphyvo 08/24/2013 ADMIN INFLUENZA VIRU S VAC CPT-4: M7475Qegbbbm 07/26/2013 FLULAVAL VACC, 3 YRS & >, IM CPT-4: C2519Ayghcpf 07/26/2013 TRIAMCINOLONE ACET I [place] NOS CPT-4: L3890Vzygcxp 06/30/2013 PRESCRIP TRANSMIT A ERX SY CPT-4: R2227Bitgiix 06/30/2013 PRESCRIP TRANSMIT A ERX SY CPT-4: H0828Acoaphp 12/01/2012 PRESCRIP TRANSMIT A ERX SY CPT-4: R2332Lhckgfv 10/19/2012 PRESCRIP TRANSMIT A ERX SY CPT-4: B6784Yqbdrso 10/07/2012 PRESCRIP TRANSMIT A ERX SY CPT-4: E1031Fsbfyym 2012 PRESCRIP TRANSMIT A ERX SY CPT-4: F1123Wuluith 08/18/2012 ADMIN INFLUENZA VIRU S VAC CPT-4: B0954Omtatcz 08/04/2012 FLULAVAL VACC, 3 YRS & >, IM CPT-4: Z4433Mcaahem 08/04/2012 PRESCRIP TRANSMIT A ERX SY CPT-4: J6695Fcgfanm 08/04/2012 PRESCRIP TRANSMIT A ERX SY CPT-4: M1068Lskkhce 07/01/2012 ROCEPHIN, PER 250 MG CPT-4: B4560Rscqzgw 01/23/2012 TRIAMCINOLONE ACET I [place] NOS CPT-4: Y1621Ejfeiav 01/23/2012 THER/PROPH/DIAG INJ SC/IM CPT-4: 39776Ryywqar 01/23/2012 REMOVE IMPACTED EAR WAX UNI CPT-4: 04941Pkbniai 01/02/2012 ROUTINE VENIPUNCTURE CPT-4: 93939Cwjcvvh 12/20/2011 Vital Signs Date Vital 03/21/2017 Blood Pressure 1: 152/88 Code: 8480-6 Heart Rate 1: 70 bpm Height: SpO2: 98% Weight: 03/19/2017 Blood Pressure 1: 132/64 Code: 8480-6 BMI: 33.0 Code: 39136-8 Heart Rate 1: 64 bpm Height: 5' SpO2: 96% Weight: 172 lbs 01/22/2017 Blood Pressure 1: 120/68 Code: 8480-6 BMI: 33.4 Code: 93225-6 Heart Rate 1: 68 bpm Height: 5' SpO2: 96% Weight: 174 lbs 01/14/2017 Blood Pressure 1: 138/80 Code: 8480-6 BMI: 33.4 Code: 43153-1 Heart Rate 1: 69 bpm Height: 5' SpO2: 98% Weight: 174 lbs 09/23/2016 Blood Pressure 1: 138/70 Code: 8480-6 BMI: 33.6 Code: 16927-2 Heart Rate 1: 68 bpm Height: 5' SpO2: 98% Temperature: 36.4 (C ) / 97.5 (F) Weight: 175 lbs 09/16/2016 Blood Pressure 1: 124/74 Code: 8480-6 BMI: 33.6 Code: 49187-3 Heart Rate 1: 64 bpm Height: 5' SpO2: 97% Weight: 175 lbs 06/25/2016 Weigh t: 174 lbs 06/17/2016 Blood Pressure 1: 128/80 Code: 8480-6 BMI: 34.0 Code: 98530-3 Heart Rate 1: 76 bpm Height: 5' SpO2: 95% Weight: 177 lbs 04/03/2016 Blood Pressure 1: 138/72 Code: 8480-6 BMI: 34.2 Code: 36686-1 Heart Rate 1: 63 bpm Height: 5' SpO2: 96% Weight: 178 lbs 03/13/2016 Blood Pressure 1: 128/72 Code: 8480-6 BMI: 35.3 Code: 17339-7 Heart Rate 1: 71 bpm Height: 5' SpO2: 97% Weight: 184 lbs 01/30/2016 Blood Pressure 1: 134/72 Code: 8480-6 BMI: 35.2 Code: 53602-3 Heart Rate 1: 71 bpm Height: 5' SpO2: 96% Weight: 183 lbs 12/21/2015 Blood Pressure 1: 148/90 Code: 8480-6 BMI: 34.6 Code: 36665-5 Heart Rate 1: 89 bpm Height: 5' SpO2: 96% Weight: 180 lbs 10/09/2015 Blood Pressure 1: 124/76 Code: 8480-6 BMI: 34.6 Code: 40316-8 Heart Rate 1: 88 bpm Height: 5' SpO2: 96% Weight: 180 lbs 06/12/2015 Blood Pressure 1: 148/74 Code: 8480-6 BMI: 33.4 Code: 42494-6 Heart Rate 1: 70 bpm Height: 5' SpO2: 96% Weight: 174 lbs 06/05/2015 Blood Pressure 1: 142/82 Code: 8480-6 BMI: 33.2 Code: 62458-1 Heart Rate 1: 72 bpm Height: 5' Weight: 173 lbs 05/15/2015 Blood Pressure 1: 118/80 Code: 8480-6 BMI: 33.6 Code: 95154-2 Heart Rate 1: 82 bpm Height: 5' Weight: 175 lbs 02/06/2015 Blood Pressure 1: 122/76 Code: 8480-6 BMI: 34.6 Code: 53009-5 Heart Rate 1: 58 bpm Height: 5' Weight: 180 lbs 01/10/2015 Blood Pressure 1: 158/90 Code: 8480-6 Blood Pressure 2: 152/90 Code: 8480-6 BMI: 34.6 Code: 81358-4 Heart Rate 1: 68 bpm Height: 5' Weight: 180 lbs 07/19/2014 Blood Pressure 1: 142/78 Code: 8480-6 BMI: 33.6 Code: 81054-5 Heart Rate 1: 56 bpm Height: 5' Weight: 175 lbs 06/17/2014 Blood Pressure 1: 128/86 Code: 8480-6 Heart Rate 1: 66 bpm SpO2: 98% Weight: 172 lbs 04/19/2014 Blood Pressure 1: 152/82 Code: 8480-6 BMI: 32.5 Code: 86207-4 Heart Rate 1: 60 bpm Height: 5' Weight: 169 lbs 04/11/2014 Blood Pressure 1: 120/80 Code: 8480-6 BMI: 33.4 Code: 59090-6 Heart Rate 1: 64 bpm Height: 5' Weight: 174 lbs 03/10/2014 Blood Pressure 1: 136/64 Code: 8480-6 BMI: 32.7 Code: 26292-0 Heart Rate 1: 76 bpm Height: 5' Weight: 170 lbs 02/02/2014 Blood Pressure 1: 160/76 Code: 8480-6 BMI: 32.7 Code: 25148-6 Heart Rate 1: 64 bpm Height: 5' Weight: 170 lbs 10/25/2013 Blood Pressure 1: 164/82 Code: 8480-6 BMI: 31.9 Code: 72852-4 Heart Rate 1: 60 bpm Height: 5' Weight: 166 lbs 08/24/2013 Blood Pressure 1: 138/88 Code: 8480-6 Heart Rate 1: 80 bpm Weight: 07/26/2013 Blood Pressure 1: 154/70 Code: 8480-6 Heart Rate 1: 72 bpm Weight: 162 lbs 06/30/2013 Blood Pressure 1: 182/86 Code: 8480-6 Heart Rate 1: 80 bpm Weight: 06/24/2013 Blood Pressure 1: 148/68 Code: 8480-6 BMI: 31.3 Code: 43581-5 Heart Rate 1: 72 bpm Height: 5' [...] 1: 142/88 Code: 8480-6 BMI: 30.6 Code: 22959-5 Heart Rate 1: 64 bpm Height: 5' [...] 1: 180/96 Code: 8480-6 BMI: 30.5 Code: 12453-7 Heart Rate 1: 76 bpm Height: 5' Respiratory Rate: 16 bpm Weight: 159 lbs 02/19/2012 Blood Pressure 1: 150/70 Code: 8480-6 Blood Pressure 2: 160/78 Code: 8480-6 Heart Rate 1: 76 bpm Respiratory Rate: 16 bpm Weight: 158 lbs 01/23/2012 Blood Pressure 1: 140/84 Code: 8480-6 BMI: 30.3 Code: 74774-8 Heart Rate 1: 68 bpm Height: 5' Respiratory Rate: 16 bpm SpO2: 98% Temperature: 37.0 (C ) / 98.6 (F) Weight: 158 lbs 01/02/2012 Blood Pressure 1: 142/92 Code: 8480-6 BMI: 30.7 Code: 41845-2 Heart Rate 1: 72 bpm Height: 5' Respiratory Rate: 16 bpm Weight: 160 lbs 12/20/2011 Blood Pressure 1: 170/84 Code: 8480-6 BMI: 30.0 Code: 37892-0 Heart Rate 1: 70 bpm Height: 5' [...] 06/12/2015 None rash Location-Head/Neck on the right religious 06/12/2015 None rash Location-Head/Neck on the right [...] dizziness 03/10/2012 None cough Location in the ro 02/25/2012 pt states it lopez and ti [...] Encounters Encounter Performer Loca tion Codes Date [id number] EST. P ATIENT, LEVEL III Diagnosis: Allergic contact dermatitis due to plants, except food[ICD10: L23.7] [facility] CPT-4: 59997 03/21/2017 42729 EST. PATIENT, LEVEL III Diagnosis: Bitten or stung by nonvenomous insect and other nonvenomous arthropods, initial encounter[ICD10: W57.XXXA] Diagnosis: Cellulitis of left lower limb[ICD10: L03.116] [facility] CPT-4: 66750 03/19/2017 ([id number]) 21456 EST. P ATIENT, LEVEL IV Diagnosis: Type 2 diabetes mellitus without complications[ICD10: E11.9] Diagnosis: Essential (primary) hypertension[ICD10: I10] Diagnosis: Other specified epidermal thickening[ICD10: L85.8] Zoya Varela MD, [facility] CPT-4: 66910 01/14/2017 [id number] EST. PATIENT, LEVEL III Diagnosis: Glossodynia[ICD10: K14.6] Kacy Varela MD, [facility] CPT- 4: 65297 09/23/2016 ([id number]) 48663 EST. P ATIENT, LEVEL IV Diagnosis: Encounter for screening mammogram for malignant neoplasm of breast[ICD10: Z12.31] Diagnosis: Encounter for immunization[ICD10: Z23] Zoya Varela MD, [facility] CPT-4: 02264 09/16/2016 ([id number]) 04795 EST. P ATIENT, LEVEL III Diagnosis: Diseases of lips[ICD10: K13.0] Diagnosis: Allergic rhinitis due to pollen[ICD10: J30.1] Kacy Varela MD, [facility] CPT-4: 09359 06/25/2016 ([id number]) 17130 EST. P ATIENT, LEVEL III Diagnosis: Essential (primary) hypertension[ICD10: I10] Kacy Varela MD, [facility] CPT-4: 64350 06/17/2016 49946 EST. PATIENT, LEVEL IV Diagnosis: Other acute sinusitis[ICD10: J01.80] Diagnosis: Acute laryngopharyngitis[ICD10: J06.0] Diagnosis: Other allergic rhinitis[ICD10: J30.89] Laura Varela MD, [facility] CPT-4: 19797 04/03/2016 ([id number]) 96103 EST. P ATIENT, LEVEL IV Diagnosis: Essential (primary) hypertension[ICD10: I10] Diagnosis: Localized edema[ICD10: R60.0] Diagnosis: Polyneuropathy, unspecified[ICD10: G62.9] Zoya Varela MD, [facility] CPT-4: 80194 03/13/2016 ([id number]) 87888 EST. P ATIENT, LEVEL IV Diagnosis: Essential (primary) hypertension[ICD10: I10] Diagnosis: Localized edema[ICD10: R60.0] Diagnosis: Type 2 diabetes mellitus without complications[ICD10: E11.9] Zoya Varela MD, [facility] CPT-4: 84899 01/30/2016 79288 EST. PATIENT, LEVEL IV Diagnosis: Localized edema[ICD10: R60.0] Laura Varela MD, [facility] CPT-4: 56678 12/21/2015 ([id number]) 13014 EST. P ATIENT, LEVEL III Diagnosis: Essential (primary) hypertension[ICD10: I10] Diagnosis: Allergic rhinitis due to pollen[ICD10: J30.1] Diagnosis: Cervicalgia[ICD10: M54.2] Kacy Varela MD, [facility] CPT- 4: 59782 10/09/2015 55828 EST. PATIENT, LEVEL II Diagnosis: Contact dermatitis[ICD9: 692.9] Kacy Varela MD, [facility] CPT- 4: 51543 06/12/2015 ([id number]) 06626 EST. P ATIENT, LEVEL III Diagnosis: ESSENTIAL HYPERTENSION[ICD9: 401.9] Diagnosis: DIABETES TYPE II[ICD9: 250.00] Diagnosis: Anxiety[ICD9: 300.00] Kacy Varela MD, [facility] CPT-4: 44878 06/05/2015 ([id number]) 55807 EST. P ATIENT, LEVEL IV Diagnosis: Anxiety[ICD9: 300.00] Diagnosis: ALLERGIC RHINITIS[ICD9: 477.9] Diagnosis: ESOPHAGEAL REFLUX[ICD9: 530.81] Kacy Varela MD, [facility] CPT- 4: 97644 05/15/2015 ([id number]) 25281 EST. P ATIENT, LEVEL III Diagnosis: ESSENTIAL HYPERTENSION[ICD9: 401.9] Zoya Varela MD, [facility] CPT- 4: 17644 02/06/2015 ([id number]) 33604 EST. P ATIENT, LEVEL IV Diagnosis: ESSENTIAL HYPERTENSION[ICD9: 401.9] Diagnosis: EDEMA[ICD9: 782.3] Diagnosis: DIABETES TYPE II[ICD9: 250.00] Zoya Varela MD, [facility] CPT-4: 15309 01/10/2015 ([id number]) 58195 EST. P ATIENT, LEVEL IV Diagnosis: ESSENTIAL HYPERTENSION[ICD9: 401.9] Diagnosis: DIABETES TYPE II[ICD9: 250.00] Zoya Varela MD, [facility] CPT-4: 83066 07/19/2014 ([id number]) 32719 EST. P ATIENT, LEVEL III Diagnosis: Left ankle pain[ICD9: 719.47] Kacy Varela MD, [facility] CPT- 4: 29278 06/17/2014 ([id number]) 96626 EST. P ATIENT, LEVEL III Diagnosis: ESSENTIAL HYPERTENSION[ICD9: 401.9] Diagnosis: Elevated blood sugar[ICD9: 790.29] Zoya Varela MD, [facility] CPT- 4: 29642 04/19/2014 ([id number]) 13000 EST. P ATIENT, LEVEL IV Diagnosis: ESSENTIAL HYPERTENSION[SNOMED: 93448729] Diagnosis: ESOPHAGEAL REFLUX[ICD9: 530.81] Zoya Varela MD, [facility] CPT-4: 93478 04/11/2014 ([id number]) 48074 EST. P ATIENT, LEVEL IV Diagnosis: ALLERGIC RHINITIS[ICD9: 477.9] Diagnosis: Anxiety[ICD9: 300.00] Diagnosis: Dyspnea[ICD9: 786.09] Diagnosis: ESOPHAGEAL REFLUX[ICD9: 530.81] Kacy Varela MD, [facility] CPT- 4: 49639 03/10/2014 ([id number]) 36723 EST. P ATIENT, LEVEL III Diagnosis: ALLERGIC RHINITIS[ICD9: 477.9] Diagnosis: ESSENTIAL HYPERTENSION[SNOMED: 24448746] Kacy Varela MD, [facility] CPT-4: 94854 02/02/2014 ([id number]) 06176 EST. P ATIENT, LEVEL III Diagnosis: ESSENTIAL HYPERTENSION[SNOMED: 35588153] Diagnosis: Skin irritation[ICD9: 709.9] Zoya Varela MD, [facility] CPT-4: 72533 10/25/2013 ([id number]) 35863 EST. P ATIENT, LEVEL III Diagnosis: HYPERLIPIDEMIA[ICD9: 272.4] Diagnosis: ESSENTIAL HYPERTENSION[SNOMED: 00687821] Diagnosis: EDEMA[ICD9: 782.3] Diagnosis: Encounter for long-term (current) use of other medications[ICD9: V58.69] Zoya Varela MD, [facility] CPT-4: 75337 08/24/2013 ([id number]) 03542 EST. P ATIENT, LEVEL III Diagnosis: ESSENTIAL HYPERTENSION[SNOMED: 18929616] Zoya Varela MD, C CPT-4: 12029 07/26/2013 ([id number]) 60968 EST. P ATIENT, LEVEL III Diagnosis: ESSENTIAL HYPERTENSION[SNOMED: 83325952] Zoya Varela MD, [facility] CPT-4: 06588 06/30/2013 ([id number]) 05307 EST. P ATIENT, LEVEL III Diagnosis: ESSENTIAL HYPERTENSION[SNOMED: 73035791] Zoya Varela MD, C CPT-4: 63713 06/24/2013 ([id number]) 23890 EST. P ATIENT, LEVEL IV Diagnosis: ESSENTIAL HYPERTENSION[SNOMED: 37772084] Diagnosis: Leg pain[ICD9: 729.5] Diagnosis: Leg swelling[ICD9: 729.81] Zoya Varela MD, [facility] CPT-4: 93891 12/01/2012 ([id number]) 76824 EST. P ATIENT, LEVEL III Diagnosis: Shingles[ICD9: 053.9] Zoya Varela MD, [facility] CPT-4: 47429 10/19/2012 ([id number]) 67099 EST. P ATIENT, LEVEL IV Diagnosis: EDEMA[ICD9: 782.3] Diagnosis: ESSENTIAL HYPERTENSION[SNOMED: 11629191] Zoya Varela MD, C CPT-4: 27702 10/07/2012 ([id number]) 36861 EST. P ATIENT, LEVEL IV Diagnosis: ESSENTIAL HYPERTENSION[SNOMED: 19496751] Diagnosis: EDEMA[ICD9: 782.3] Diagnosis: Irritable bowel disease[ICD9: 564.1] Zoya Varela MD, [facility] CPT-4: 48725 2012 ([id number]) 08334 EST. P ATIENT, LEVEL III Diagnosis: ESSENTIAL HYPERTENSION[SNOMED: 16097083] Zoya Varela MD, [facility] CPT-4: 60839 08/18/2012 ([id number]) 22633 EST. P ATIENT, LEVEL III Diagnosis: ESSENTIAL HYPERTENSION[SNOMED: 04615240] Zoya Varela MD, [facility] CPT-4: 19366 08/04/2012 ([id number]) 70679 EST. P ATIENT, LEVEL IV Diagnosis: ESSENTIAL HYPERTENSION[SNOMED: 79153281] Diagnosis: Lumbago[ICD9: 724.2] Diagnosis: HYPERLIPIDEMIA[ICD9: 272.4] Zoya Varela MD, [facility] CPT-4: 80694 07/01/2012 ([id number]) 17364 EST. P ATIENT, LEVEL III Diagnosis: ESSENTIAL HYPERTENSION[SNOMED: 13643024] Zoya Varela MD, [facility] CPT-4: 89384 05/20/2012 ([id number]) 10965 EST. P ATIENT, LEVEL IV Diagnosis: ESSENTIAL HYPERTENSION[SNOMED: 54618470] Diagnosis: Hot flash, menopausal[ICD9: 627.2] Zoya Varela MD, [facility] CPT- 4: 39993 04/20/2012 03868 EST. PATIENT, LEVEL IV Diagnosis: SPASM OF MUSCLE[ICD9: 728.85] Diagnosis: Back pain[ICD9: 724.5] Diagnosis: ESSENTIAL HYPERTENSION[SNOMED: 73186760] Zoya Varela MD, [facility] CPT-4: 83295 03/10/2012 ([id number]) 16024 EST. P ATIENT, LEVEL IV Diagnosis: COUGH[ICD9: 786.2] Diagnosis: Allergic rhinitis[ICD9: 477.9] Diagnosis: Malignant reactive hypertension[ICD9: 401.0] Zoya Varela MD, [facility] CPT-4: 23024 02/25/2012 ([id number]) 04983 EST. P ATIENT, LEVEL III Diagnosis: ESSENTIAL HYPERTENSION[SNOMED: 59844412] Zoya Varela MD, [facility] CPT-4: 20388 02/19/2012 02837 EST. PATIENT, LEVEL IV Diagnosis: ESSENTIAL HYPERTENSION[SNOMED: 66477338] Diagnosis: Cough[ICD9: 786.2] Kacy Varela MD, [facility] CPT-4: 00349 01/23/2012 ([id number]) 59146 EST. P ATIENT, LEVEL IV Diagnosis: HYPERLIPIDEMIA[ICD9: 272.4] Diagnosis: ESSENTIAL HYPERTENSION[SNOMED: 54928124] Zoya Varela MD, [facility] CPT-4: 63853 01/02/2012 OFFICE VISIT, NEW - LEVEL 4 Diagnosis: ESSENTIAL HYPERTENSION[SNOMED: 56484146] Diagnosis: HYPERLIPIDEMIA[ICD9: 272.4] Diagnosis: IMPACTED CERUMEN[ICD9: 380.4] Diagnosis: Muscle spasm[ICD9: 728.85] Diagnosis: CHRONIC TENSION HEADACHE[ICD9: 339.12] Diagnosis: Neck pain, chronic[ICD9: 723.1] Diagnosis: Change in skin mole[ICD9: 216.9] Zoya Varela MD, [facility] CPT-4: 45189 12/20/2011 Plan of Care Planned Activity Notes C odes Status Date Visit Plan: Poison Sarah -kenalog injectio n today in the office-start prednisone tomorrow pt is to use topical treatments as directed. Pt is cleanse clothing in hot water with soap, and call if symptoms do not improve or if they worsen. 03/21/2017 Appointment: Kacy Moses WPtel: [phone] (15 min) Moderate 03/21/2017 Patient Education: Patient [...] in pain. 03/19/2017 Appointment: Laura Velasco WPtel: [phone] [phone] (15 min) Moderate 03/19/2017 Patient Education: Patient [...] in hearing. 01/22/2017 Appointment: Laura [place] WPtel: [facility] [facility] - Annual Wellness Visit 01/22/2017 [...] home. 01/14/2017 Appointment: Zoya Varela WPtel: [phone] (15 min) Moderate 01/14/2017 Patient Education: Patient [...] plan. 09/23/2016 Appointment: Kacy Moses WPtel: [phone] [phone] (15 min) Moderate 09/23/2016 Patient Education: Patient [...] to medications. 09/16/2016 Appointment: Zoya Varela WPtel: [phone] (15 min) Moderate 09/16/2016 Patient Education: Patient Medication Summary Completed 09/16/2016 Patient Education: Obesity Completed 09/16/2016 Care Plan: SCREENINGMAMMOGRAPHYDIGITAL LOINC : 97637-6 Pending 09/16/2016 Visit Plan: Cracked/painful lips-bacteri al [...] worse. 06/25/2016 Appointment: Kacy Moses [facility]el[phone] [phone] (15 min) Moderate 06/25/2016 Patient Education: Patient [...] spray. 04/03/2016 Appointment: Kacy Moses [facility]el[phone] (30 min) Complex 04/03/2016 Patient Education: Patient [...] Completed 03/13/2016 Appointment: Zoya Varela WPtel: [phone] [facility] (15 min) Moderate 02/28/2016 Appointment: Zoya Varela WPtel: [phone] [facility] (15 min) Moderate 02/01/2016 Visit Plan: Hypertension [...] treatment. 01/30/2016 Appointment: Zoya Varela WPtel: [facility] (15 min) Moderate 01/30/2016 Patient Education: Patient [...] home. 02/06/2015 Appointment: Zoya Varela WPtel: [phone] [facility] Follow up 02/06/2015 Patient Education: Patient Medication [...] attempt to reduce peripheral edema. 01/10/2015 Appointment: Nichole Zoya WPtel: [phone] [facility] [facility] 01/10/2015 Patient Education: Patient Medication Summary [...] starting to become less controlled. 07/19/2014 Appointment: Nichole Zoya WPtel: [phone] [facility] Follow up 07/19/2014 Patient Education: Patient Medication Summary Completed 07/19/2014 Patient Education: Hypertension Completed 07/19/2014 Care Plan: SCREENINGMAMMOGRAPHYDIGITAL LOINC : 43061-4 Ordered 07/19/2014 Visit Plan: Left ankle vxmj-cvaicm-byrrk mend rest ice and anti inflammatories as [...] home. 04/19/2014 Appointment: [facility]el[phone] Diabetic education 04/19/2014 Patient Education: Patient [...] normal liver response to medications. 04/11/2014 Appointment: NicholeZoya WPtel: [phone] [place] [id number] Follow up 04/11/2014 Patient Education: Patient Medication [...] to spray in the nasal steroid allergy spray.Gafrkkq-nqygzjsvpenl-kxwgpvb xanax at bedtime Esophageal Reflux - the patient has been counseled against excessive intake of caffiene, spicy foods, peppermint, and cinnamon - all of which can exacerbate esophageal reflux.The patient is to take medications as prescribed and call the office if the symptoms are not improving. 03/10/2014 Appointment: Zoya Varela WPtel: [phone] [facility] [facility] 03/10/2014 Patient Education: Patient Medication Summary Completed [...] spray. 2013 Appointment: Kacy Moses [facility]Ptel: [phone] Other 02/02/2014 Patient Education: Patient Medication Summary [...] the site. 10/25/2013 Appointment: Zoya Varela WPtel: [facility]8 [facility] Follow up 10/25/2013 Patient Education: Patient Medication [...] BEDTIME 08/24/2013 Appointment: Zoya Varela WPtel: [phone] [facility] Follow up 08/24/2013 Patient Education: Patient Medication [...] acute concerns. 07/26/2013 Appointment: Zoya Varela WPtel: [facility] Follow up 07/26/2013 Patient Education: Patient Medication [...] IMPROVE. 06/30/2013 Appointment: Zoya Varela WPtel: [phone] [facility] Other 06/30/2013 Patient Education: Patient Medication Summary [...] acute concerns. 06/24/2013 Appointment: Kacy Moses WPtel: [facility]5 [phone] Follow up 06/24/2013 Patient Education: Patient Medication Summary Completed 06/24/2013 Patient Education: Hypertension Completed 06/24/2013 Appointment: Zoya Varela WPtel: [address] [place], [place] [id number] Other 03/23/2013 Visit Plan: Hypotension - pt is on chron ic antihypertensive medication - the medication has been adjusted down to attempt to alleviate the low blood pressures.Leg pain - Leg swelling - pt to have ultrasound on her right lower leg due to post-operative swelling and pain. 12/01/2012 Appointment: Zoya Varela WPtel: [address] [place], [place] [id number] Follow up 12/01/2012 Patient Education: Patient Medication Summary Completed 12/01/2012 Patient Education: Hypertension Completed 12/01/2012 Appointment: Zoya Varela WPtel: [address] [place], [place] [phone] Follow up 10/20/2012 Visit Plan: Shingles - [...] considered contagious. 10/19/2012 Appointment: Zoya Varela WPtel: [facility]3 [facility] [place] Other 10/19/2012 Patient Education: Patient Medication Summary [...] edema. 10/07/2012 Appointment: Kacy Moses WPtel: [phone] [phone] [place] Other 10/07/2012 Patient Education: Hypertension Completed [...] peripheral edema. 2012 Appointment: Zoya Varela WPtel: [phone] [facility]66[facility] Other 2012 Patient Education: Patient Medication [...] THE EVENING. 08/18/2012 Appointment: Zoya Varela WPtel: [phone] [facility] Follow up 08/18/2012 Patient Education: Patient [...] the knees. 08/04/2012 Appointment: Zoya Varela WPtel: [phone] Follow up 08/04/2012 Patient Education: Patient Medication [...] twice daily. 07/01/2012 Appointment: Zoya Varela WPtel: [phone] [facility] Other 07/01/2012 Patient Education: Patient Medication Summary [...] readings in two weeks 05/20/2012 Appointment: Zoya Varelatel: [phone] [facility] Follow up 05/20/2012 Patient Education: Patient Medication Summary Completed 05/20/2012 Patient Education: High Blood Pressure: Essential Hypertension Completed 05/20/2012 Appointment: Zoya Varela WPtel: [phone] [facility] [facility] 05/11/2012 Visit Plan: Hypertension - uncontrolled - [...] bid dosing. 04/20/2012 Appointment: Zoya Varela WPtel: [phone] [facility] Follow up 04/20/2012 Patient Education: Patient Medication [...] in a few weeks. 03/10/2012 Appointment: Zoya Varelal: [phone] [facility]66[facility] Other 03/10/2012 Patient Education: Patient Medication [...] DAILY.Cough medication phenergan with codeine. 02/25/2012 Appointment: Nichole Zoya WPtel: [phone] Other 02/25/2012 Patient Education: Patient Medication [...] TOP NUMBER, call the office. 02/19/2012 Appointment: Nichole Zoya WPtel: [phone] [facility] Other 02/19/2012 Patient Education: Patient Medication Summary [...] office 01/23/2012 Appointment: Kacy Moses [facility]Ptel: [phone] Other 01/23/2012 Patient Education: Patient Medication Summary [...] TWICE DAILY. 01/02/2012 Appointment: Zoya Varela WPtel: [phone] [facility] Other 01/02/2012 Patient Education: Patient Medication Summary [...] wks. 12/20/2011 Appointment: Zoya Varela WPtel: [phone] [facility] [place] New Patient 12/20/2011 Patient Education: Patient [...] pt is to call for acute concerns. DEXILANT 60MG DAILY- TAKE SAMPLES UNTIL GONE [...] exposure. No change in current medications. . Sinusitis - Pt has acute [...] able to remove in 2 wks. . Shingles - Herpes Zoster - acute [...] through with his plans for treatment. . Low back pain- the patient was [...] pressure readings in a few weeks. . If the clonidine p atch has the blood pressures at or below 120/80, then the pt is to stop her norvasc and call the clinic, pt is to rtc in 2 weeks. Apply the pennsaid 15 drops to each knee three times daily, rub in the pennsaid to hands after each application on the knees. . Edema - pt has bee n [...] discussed. Patient verbalized understanding of plan. . Hypertension [...] 1 week, then increase to twice daily. BENICAR 20MG DAILY SAMPLES GIVEN. Hypertension - [...] spray in the nasal steroid allergy spray. Vepqwim-kfcmuriqzium-umtodpf xanax at bedtime Esophageal Reflux - the [...] assure normal liver response to medications. . Left ankle pain-sp rain-recommend rest ice and anti inflammatories as directed-also plan for xray left ankle . Cracked/painful li ps-bacterial culture today in [...] THE TOP NUMBER, call the office. . Cracked/painful li ps-bacterial culture today in the office-discussed keeping lips well moisturized-get new toothbrush, lip gloss, etc. Call if symptoms do not resolve or if any worse.
--- OUTSIDE RECORDS SUMMARY | 2020-05-26 03:17 | XMS REPORT | CCD ---
Author Author Natali Varela Organization Zoya Varela MD, [facility] Address [address] [place] [address] Phone Care Team Providers Care Critical Care Physician Assistant Name Role Phone PP Unavailable CCM Unavailable Summary Purpose Interface Exchange Insurance Providers Payer name Policy type / Coverage type Covered republican ID Effective Begin Date Effective End Date WPS Medicare Part B Medicare Part B [id number] Unknown [employer] INSURANCE [employer] Medicare Part B [id number] Unknown Family history Mother Diagnosis Age At Onset Liver Failure Unknown Diabetes mellitus Type 2 Unknown Hyperlipidemia Unknown Hypertension Unknown Cancer Unknown Arthritis Unknown Father Diagnosis Age At Onset Liver Failure Unknown Cancer Unknown Social History Social History Element Codes Description Effective Dates Marital status Unknown M arried 12/12/2011 Number of children Unknown 3 12/12/[address]: 3940160 Former smoker quit in 199212/12/2011 Allergies, Adverse [...] Codes Condition Status Onset Date Resolved Date Sciatica Unknown Active 08/17/2018 Unknow n Allergic [...] ICD-9: 236.91 ICD-10: D41.01 Active 06/08/2018 Unknown Acute upper respirat ory infection, unspecified ICD-9: 465.9 ICD-10: J06.9 Active 05/04/2018 Unknown 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, except food ICD-9: 692.6 ICD-10: L23.7 Active 03/21/2017 Unknown Localized edema ICD-9: 782.3 ICD-10: R60.0 Active 01/10/2015 Unknown Mixed hyperlipidemia ICD-9: 272.2 ICD-10: E78.2 Active 05/13/2017 Unknown Type 2 diabetes eder itus without [...] Condition Codes Effectiv e Dates Condition Status Sciatica Unknown 08/17/2018 Active Allergic rhinitis du e to pollen ICD-9: 477.9 ICD-10: J30.1 02/25/2012 Active Essential (primary) hypertension ICD-9: 401.9 ICD-10: I10 06/16/2016 Active Sciatica, right side ICD-9: 724.3 ICD-10: M54.31 08/17/2018 Active Encounter for immuni zation ICD-9: V03.82 ICD-10: Z23 09/15/2016 Active 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 06/08/2018 Active Acute upper respirat ory infection, unspecified ICD-9: 465.9 ICD-10: J06.9 05/04/2018 Active 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, except food ICD-9: 692.6 ICD-10: L23.7 03/21/2017 Active Localized edema ICD-9: 782.3 ICD-10: R60.0 01/10/2015 Active Mixed hyperlipidemia ICD-9: 272.2 ICD-10: E78.2 05/13/2017 Active Type 2 diabetes eder itus without [...] Instructions cyclobenzaprine 10 m g tablet RxNorm: 666281 TAKE ONE TABLET BY [facility] EVERY 8 HOURS NEEDED 07/01/2018 08/09/2018 Inactive atorvastatin 20 mg t ablet RxNorm: 908308 TAKE ONE TABLET BY [facility] DAILY 06/29/2018 12/25/2018 Ac tive atorvastatin 20 mg t ablet RxNorm: 524598 TAKE ONE TABLET BY [facility] DAILY 06/29/2018 06/28/2018 In active pilocarpine 5 mg tablet RxNorm: 9267857 1 Tablet(s) PO BID for dry mouth 06/09/2018 11/05/2018 Ac tive pilocarpine 5 mg tablet RxNorm: 7658921 1 Tablet(s) PO BID 06/09/2018 06/08/2018 Inactive Evoxac 30 mg capsule RxNorm: 868506 1 Capsule(s) PO BID as needed dry mouth 06/08/2018 06/08/2018 In active may substitute generic cyclobenzaprine 10 m g tablet RxNorm: 007963 TAKE ONE TABLET BY [facility] EVERY 8 HOURS NEEDED 05/14/2018 06/30/2018 Inactive amoxicillin 500 mg c apsule RxNorm: 057428 1 Capsule(s) PO BID 05/04/2018 05/13/2018 Inactive amoxicillin 500 mg c apsule RxNorm: 609704 1 Capsule(s) PO BID 05/04/2018 05/03/2018 Inactive tramadol 50 mg tablet RxNorm: 493201 1-2 Tablet(s) PO Q8 as needed 04/24/2018 06/22/2018 In active Kenalog 40 mg/mL sylvia pension for injection RxNorm: 5335285 Milliliter(s) Inj 04/24/2018 04/24/2018 In active amlodipine 5 mg tablet RxNorm: 782326 Tablet(s) TAKE ONE TABLET BY MOUTH DAILY 04/02/2018 03/27/2019 Ac tive Xanax 0.25 mg tablet RxNorm: 211398 1/2-1 Tablet(s) PO QDAY PRN 04/02/2018 06/30/2018 Inactive metoprolol tartrate 100 mg tablet RxNorm: 938506 TAKE ONE AND ONE-HALF (1 1/2) TABLETS BY MOUTH EVERY MORNING AND TAKE TWO TABLETS BY MOUTH EVERY EVENING 02/25/2018 09/22/2018 Ac tive Keflex 500 mg capsule RxNorm: 563615 1 Capsule(s) PO TID 02/06/2018 02/15/2018 Inactive Keflex 500 mg capsule RxNorm: 228404 1 Capsule(s) PO TID 02/06/2018 02/05/2018 Inactive Zithromax Z-Kush 250 mg tablet RxNorm: 950211 1 Tablet(s) PO UD 02/02/2018 02/06/2018 Inactive 2 tabs on day 1 then 1 tab daily on days 2-5 doxazosin 4 mg tablet RxNorm: 243960 TAKE ONE AND ONE-HALF (1 & 1/2) TABLET B Y MOUTH BY MOUTH TWO TIMES A DAY 01/16/2018 11/11/2018 Active atorvastatin 20 mg t ablet RxNorm: 422639 TAKE ONE TABLET BY [facility] DAILY 12/31/2017 06/28/2018 In active furosemide 20 mg tablet RxNorm: 020173 TAKE ONE TABLET BY MOUTH DAILY NEEDED FOR EDEMA 12/26/2017 06/23/2018 Inactive potassium chloride E R 10 mEq tablet,extended release RxNorm: 839595 TAKE ONE TABLET BY MOUTH NEEDED WITH LASIX 12/26/2017 06/23/2018 Inactive Xanax 0.25 mg tablet RxNorm: 611725 1/2-1 Tablet(s) PO QDAY PRN 11/27/2017 02/23/2018 Inactive cyclobenzaprine 10 m g tablet RxNorm: 103875 TAKE ONE TABLET BY [facility] EVERY 8 HOURS NEEDED 11/21/2017 02/08/2018 Inactive tramadol 50 mg tablet RxNorm: 029394 1-2 Tablet(s) PO Q8 as needed 10/28/2017 01/23/2018 In active metoprolol tartrate 100 mg tablet RxNorm: 614452 TAKE ONE AND ONE-HALF (1 1/2) TABLETS BY MOUTH EVERY MORNING AND TAKE TWO TABLETS BY MOUTH EVERY EVENING 10/28/2017 02/24/2018 In active cyclobenzaprine 10 m g tablet RxNorm: 884068 TAKE ONE TABLET BY [facility] EVERY 8 HOURS NEEDED 08/27/2017 10/25/2017 Inactive Xanax 0.25 mg tablet RxNorm: 378748 1/2-1 Tablet(s) PO QDAY PRN 08/04/2017 04/01/2018 Inactive cyclobenzaprine 10 m g tablet RxNorm: 902495 TAKE ONE TABLET BY [facility] EVERY 8 HOURS NEEDED 07/28/2017 08/16/2017 Inactive metoprolol tartrate 100 mg tablet RxNorm: 102712 TAKE ONE AND ONE-HALF (1 & 1/2) TABLET BY MOUTH EVERY MORNING AND TAKE TWO TABLETS BY MOUTH EVERY EVENING 07/28/2017 10/25/2017 In active cyclobenzaprine 10 m g tablet RxNorm: 600920 TAKE ONE TABLET BY [facility] EVERY 8 HOURS NEEDED 06/30/2017 07/19/2017 Inactive prednisone 10 mg tab lets in a dose pack RxNorm: 103598 1 Tablet(s) PO UD 06/23/2017 06/28/2017 In active 6-5-4-3-2-1 mupirocin 2 % topica l ointment RxNorm: 061118 1 Application TOP BID 06/23/2017 07/02/2017 Inactive Kenalog 40 mg/mL sylvia pension for injection RxNorm: 9784706 Milliliter(s) Inj 06/23/2017 06/23/2017 In active cyclobenzaprine 10 m g tablet RxNorm: 323651 TAKE ONE TABLET BY [facility] EVERY 8 HOURS NEEDED 06/09/2017 06/28/2017 Inactive meclizine 25 mg tablet RxNorm: 803661 1 Tablet(s) PO Q6 PRN as needed 1/2 - 1 pill every 6 hours as needed for vertigo 06/03/2017 07/14/2017 Inactive atorvastatin 20 mg t ablet RxNorm: 354571 TAKE ONE TABLET BY [facility] DAILY 05/30/2017 11/25/2017 In active amlodipine 5 mg tablet RxNorm: 784557 TAKE ONE TABLET BY MOUTH DAILY 05/15/2017 04/01/2018 In active cyclobenzaprine 10 m g tablet RxNorm: 814643 TAKE ONE TABLET BY [facility] EVERY 8 HOURS NEEDED 05/07/2017 05/26/2017 Inactive tramadol 50 mg tablet RxNorm: 042494 1-2 Tablet(s) PO Q8 as needed 04/07/2017 07/04/2017 In active cyclobenzaprine 10 m g tablet RxNorm: 238692 TAKE ONE TABLET BY [facility] EVERY 8 HOURS NEEDED 04/07/2017 04/26/2017 Inactive Xanax 0.25 mg tablet RxNorm: 471198 1/2-1 Tablet(s) PO QDAY PRN 04/04/2017 06/02/2017 Inactive metoprolol tartrate 100 mg tablet RxNorm: 860447 TAKE ONE AND ONE-HALF (1 & 1/2) TABLET BY MOUTH EVERY MORNING AND TAKE TWO TABLETS BY MOUTH EVERY EVENING 03/28/2017 07/25/2017 In active prednisone 10 mg tab lets in a dose pack RxNorm: 072725 1 Tablet(s) PO UD 03/21/2017 03/26/2017 In active 6-5-4-3-2-1 Kenalog 40 mg/mL sylvia pension for injection RxNorm: 4858858 2 Milliliter(s) Inj 03/21/2017 03/21/2017 In active doxycycline hyclate 100 mg capsule RxNorm: 3101530 1 Capsule(s) PO BID 03/19/2017 03/28/2017 In active cyclobenzaprine 10 m g tablet RxNorm: 337939 TAKE ONE TABLET BY [facility] EVERY 8 HOURS NEEDED 02/25/2017 03/16/2017 Inactive triamcinolone aceton pineda 0.1 % topical ointment RxNorm: 7098267 1 Application TOP TI D 02/21/2017 02/20/2017 Inactive triamcinolone aceton pineda 0.1 % topical ointment RxNorm: 6804556 1 Application TOP TI D 02/21/2017 03/02/2017 Inactive doxazosin 4 mg tablet RxNorm: 932593 TAKE ONE AND ONE-HALF (1 & 1/2) TABLET B Y MOUTH BY MOUTH TWO TIMES A DAY 02/14/2017 01/09/2018 Inactive cyclobenzaprine 10 m g tablet RxNorm: 300926 TAKE ONE TABLET BY [facility] EVERY 8 HOURS NEEDED 01/27/2017 02/15/2017 Inactive ammonium lactate 12 % topical cream RxNorm: 071804 1 Application TOP BID 01/14/2017 02/12/2017 In active dispense one bottle of the cream potassium chloride E R 10 mEq tablet,extended release RxNorm: 714254 1 Tablet(s) PO PRN as needed with lasix 11/13/2016 12/25/2017 Inactive prn swelling furosemide 20 mg tablet RxNorm: 330075 1 Tablet(s) PO daily as needed edema 11/13/2016 01/11/2017 In active metoprolol tartrate 100 mg tablet RxNorm: 872861 TAKE ONE AND ONE-HALF (1 & 1/2) TABLET BY MOUTH EVERY MORNING AND TAKE TWO TABLETS BY MOUTH EVERY EVENING 11/01/2016 03/27/2017 In active atorvastatin 20 mg t ablet RxNorm: 584112 TAKE ONE TABLET BY [facility] DAILY 10/31/2016 04/28/2017 In active cyclobenzaprine 10 m g tablet RxNorm: 813316 TAKE ONE TABLET BY [facility] EVERY 8 HOURS NEEDED 10/25/2016 12/03/2016 Inactive Lyrica 25 mg capsule RxNorm: 185942 1 Tablet(s) PO BID 09/23/2016 01/13/2017 Inactive Lyrica 50 mg capsule RxNorm: 815263 1 Capsule(s) PO BID 09/16/2016 01/13/2017 Inactive amlodipine 5 mg tablet RxNorm: 131472 Tablet(s) TAKE ONE TABLET BY MOUTH DAILY 08/28/2016 05/14/2017 In active cyclobenzaprine 10 m g tablet RxNorm: 185046 TAKE ONE TABLET BY [facility] EVERY 8 HOURS NEEDED 08/05/2016 09/13/2016 Inactive Xanax 0.25 mg tablet RxNorm: 081228 1/2-1 Tablet(s) PO QDAY PRN 07/16/2016 04/03/2017 Inactive amlodipine 5 mg tablet RxNorm: 595644 TAKE ONE TABLET BY MOUTH DAILY 06/28/2016 08/26/2016 In active metoprolol tartrate 100 mg tablet RxNorm: 632786 Tablet(s) TAKE ONE AN D ONE-HALF (1 & 1/2) TABLET BY MOUTH EVERY MORNING AND TAKE TWO TABLETS BY MOUTH EVERY EVENING 05/02/2016 05/02/2016 Inactive metoprolol tartrate 100 mg tablet RxNorm: 383072 Tablet(s) PO TAKE ONE AND ONE-HALF (1 & 1/2) TABLET BY MOUTH EVERY MORNING AND TAKE TWO TABLETS BY MOUTH EVERY EVENING 05/02/2016 05/01/2016 Inactive metoprolol tartrate 100 mg tablet RxNorm: 998592 Tablet(s) PO TAKE ONE AND ONE-HALF (1 & 1/2) TABLET BY MOUTH EVERY MORNING AND TAKE TWO TABLETS BY MOUTH EVERY EVENING 05/02/2016 10/28/2016 Inactive atorvastatin 20 mg t ablet RxNorm: 123568 TAKE ONE TABLET BY [facility] DAILY 04/25/2016 10/21/2016 In active tramadol 50 mg tablet RxNorm: 388621 1-2 Tablet(s) PO Q8 as needed 04/25/2016 10/27/2017 In active cyclobenzaprine 10 m g tablet RxNorm: 811913 Tablet(s) PO TAKE ONE TABLET BY MOUTH EVERY 8 HOURS NEEDED 04/18/2016 06/16/2016 Inactive Kenalog 40 mg/mL sylvia pension for injection RxNorm: 1442805 1 Milliliter(s) Inj 04/04/2016 04/04/2016 In active Phenergan with Codei ne Syrup RxNorm: PO 04/03/2016 No Stop Date Active Zithromax Z-Kush 250 mg tablet RxNorm: 645497 1 Tablet(s) PO UD 04/03/2016 04/07/2016 Inactive 2 tabs on day 1 then 1 tab daily on days 2-5 amlodipine 5 mg tablet RxNorm: 552276 TAKE ONE TABLET BY MOUTH DAILY 03/27/2016 06/24/2016 In active Flexeril 10 mg tablet RxNorm: 466504 TAKE ONE TABLET BY MOUTH EVERY 8 HOURS A S NEEDED 03/14/2016 04/02/2016 Inactive Vitamin B-12 ER 2,00 0 mcg tablet,extended release RxNorm: 418594 1 Tablet(s) PO daily 03/13/2016 No Stop Date Active Vitamin B-12 ER 2,00 0 mcg tablet,extended release RxNorm: 179124 1 Tablet(s) PO daily 03/13/2016 No Stop Date Active gabapentin 100 mg ca psule RxNorm: 832700 1 Capsule(s) PO BID 03/13/2016 09/15/2016 Inactive Flexeril 10 mg tablet RxNorm: 744386 Tablet(s) TAKE ONE TABLET BY MOUTH EVERY 8 HOURS NEEDED 02/08/2016 02/27/2016 Inactive Xanax 0.25 mg tablet RxNorm: 448359 1/2-1 Tablet(s) PO QDAY PRN 02/08/2016 07/15/2016 Inactive amlodipine 5 mg tablet RxNorm: 623755 1 Tablet(s) PO daily 02/06/2016 03/26/2016 Inactive furosemide 20 mg tablet RxNorm: 227316 1 Tablet(s) PO daily 01/30/2016 06/16/2016 Inactive amlodipine 10 mg tablet RxNorm: 945333 1/2 Tablet(s) PO daily 01/30/2016 02/05/2016 Inactive doxazosin 4 mg tablet RxNorm: 272304 1.5 Tablet(s) PO BID 01/30/2016 01/23/2017 Inactive Flexeril 10 mg tablet RxNorm: 282804 TAKE ONE TABLET BY MOUTH EVERY 8 HOURS A S NEEDED 01/10/2016 01/29/2016 Inactive potassium chloride E R 10 mEq tablet,extended release RxNorm: 539516 1 Tablet(s) PO PRN as needed with lasix 12/25/2015 06/16/2016 Inactive prn swelling amlodipine 10 mg tablet RxNorm: 272808 TAKE ONE TABLET BY MOUTH EVERY MORNING 12/25/2015 12/24/2015 In active amlodipine 10 mg tablet RxNorm: 887887 TAKE ONE TABLET BY MOUTH EVERY MORNING 12/25/2015 01/29/2016 In active furosemide 20 mg tablet RxNorm: 856076 1/2 Tablet(s) PO daily as needed edema 12/21/2015 01/19/2016 In active pt needs to take 10meq potassium on days she takes the lasix metoprolol tartrate 100 mg tablet RxNorm: 208740 TAKE ONE AND ONE-HALF (1 & 1/2) TABLET BY MOUTH EVERY MORNING AND TAKE TWO TABLETS BY MOUTH EVERY EVENING 11/08/2015 12/07/2015 In active Flonase Allergy Reli ef 50 mcg/actuation nasal spray,suspension RxNorm: [place] as needed PLACE 2 SPRAYS IN EACH NOSTRIL DAILY 10/09/2015 02/05/2016 Inactive Flexeril 10 mg tablet RxNorm: 117959 1 Tablet(s) PO TID PRN TAKE ONE TABLET B Y MOUTH EVERY 8 HOURS NEEDED 10/09/2015 12/07/2015 Inactive alprazolam 0.5 mg ta blet RxNorm: 362427 TAKE ONE TABLET BY [facility] AT BEDTIME NEEDED FOR ANXIETY 08/29/2015 11/23/2015 Inactive Flonase Allergy Reli ef 50 mcg/actuation nasal spray,suspension RxNorm: PLACE 2 SPRAYS IN EACH NOSTRIL DAILY 07/06/2015 10/08/2015 Inactive Kenalog 40 mg/mL sylvia pension for injection RxNorm: 2543606 Milliliter(s) Inj 06/12/2015 06/12/2015 In active prednisone 10 mg tab lets in a dose pack RxNorm: 944478 1 Tablet(s) PO UD 06/12/2015 06/17/2015 In active 6-5-4-3-2-1 acyclovir 800 mg tablet RxNorm: 479960 1 Tablet(s) PO TID 06/12/2015 06/21/2015 Inactive Xanax 0.25 mg tablet RxNorm: 222641 1/2-1 Tablet(s) PO QDAY PRN 05/15/2015 02/07/2016 Inactive Flonase Allergy Reli ef 50 mcg/actuation nasal spray,suspension RxNorm: 2 [place] NASAL daily 05/15/2015 06/13/2015 Inactive Kenalog 40 mg/mL sylvia pension for injection RxNorm: 5676670 Milliliter(s) Inj 05/15/2015 05/15/2015 In active metoprolol tartrate 100 mg tablet RxNorm: 358391 TAKE ONE AND ONE-HALF (1 & 1/2) TABLET BY MOUTH EVERY MORNING AND TAKE TWO TABLETS BY MOUTH EVERY EVENING 05/07/2015 06/05/2015 In active metoprolol tartrate 100 mg tablet RxNorm: 287270 TAKE ONE AND ONE-HALF (1 & 1/2) TABLET BY MOUTH EVERY MORNING AND TAKE TWO TABLETS BY MOUTH EVERY EVENING 04/05/2015 05/04/2015 In active amlodipine 10 mg tablet RxNorm: 947303 TAKE ONE TABLET BY MOUTH EVERY MORNING 03/10/2015 12/04/2015 In active alprazolam 0.5 mg ta blet RxNorm: 953849 TAKE ONE TABLET BY [facility] EVERY NIGHT AT BEDTIME NEEDED FOR ANXIETY 02/23/2015 03/24/2015 Inactive (Response to an electronic controlled substance refill request - RxReferenceNumber: [id number]) alprazolam 0.5 mg ta blet RxNorm: 257834 1 Tablet(s) PO QHS as needed anxiety 02/23/2015 08/29/2015 In active (Response to an electronic controlled salas bstance refill request - RxReferenceNumber: [id number]) doxazosin 4 mg tablet RxNorm: 806234 TAKE ONE TABLET BY MOUTH TWICE A DAY 02/13/2015 01/29/2016 In active atorvastatin 20 mg t ablet RxNorm: 076240 TAKE ONE TABLET BY MO [facility] EVERY DAY 01/19/2015 07/17/2015 In active atorvastatin 20 mg t ablet RxNorm: 835490 Tablet(s) TAKE ONE TA BLET BY MOUTH EVERY DAY 01/19/2015 01/18/2015 Inactive [SAVINGS FOR NON-COVERED DRUGS -- BIN:00 3585, PCN: ASPROD1, Group: XXXXX, ID# [id number], Questions: . THIS IS NOT INSURANCE.] Maxzide-25mg 37.5 mg -25 mg tablet RxNorm: 01629 1 Tablet(s) PO daily 01/10/2015 10/08/2015 Inactive [SAVINGS FOR NON-COVERED DRUGS -- BIN:00 3585, PCN: ASPROD1, Group: XXXXX, ID# [id number], Questions: . THIS IS NOT INSURANCE.] metoprolol tartrate 100 mg tablet RxNorm: 761596 TAKE ONE AND ONE-HALF (1 & 1/2) TABLET BY MOUTH EVERY MORNING AND TAKE TWO TABLETS BY MOUTH EVERY EVENING 12/05/2014 01/03/2015 In active Flexeril 10 mg tablet RxNorm: 160850 TAKE ONE TABLET BY MOUTH EVERY 8 HOURS A S NEEDED 10/31/2014 06/27/2015 Inactive alprazolam 0.5 mg ta blet RxNorm: 820968 1 Tablet(s) PO QHS TA KE ONE TABLET BY MOUTH EVERY NIGHT AT BEDTIME AND NEEDED FOR PANIC ATTACKS 10/21/2014 10/23/2014 Inactive (Appended: Controlled substance eRx refi ll - RxReferenceNumber: [id number]) alprazolam 0.5 mg ta blet RxNorm: 006879 TAKE ONE TABLET BY [facility] EVERY NIGHT AT BEDTIME NEEDED FOR ANXIETY 10/20/2014 11/18/2014 Inactive (Response to an electronic controlled substance refill request - RxReferenceNumber: [id number]) amlodipine 10 mg tablet RxNorm: 066265 1 Tablet(s) PO QAM 09/09/2014 03/07/2015 Inactive now taking full tab [SAVINGS FOR UNINSURED PATIENTS -- BIN:[id number], PCN: ASPROD1, Group: [id number], ID# [id number], Process claim through [employer], for questions: . THIS IS NOT INSURANCE.] metoprolol tartrate 100 mg tablet RxNorm: 681581 TAKE ONE AND ONE-HALF (1 & 1/2) TABLET BY MOUTH EVERY MORNING AND TAKE TWO TABLETS BY MOUTH EVERY EVENING 09/03/2014 10/02/2014 In active alprazolam 0.5 mg ta blet RxNorm: 718114 TAKE ONE TABLET BY [facility] EVERY NIGHT AT BEDTIME AND NEEDED FOR PANIC ATTACKS 08/29/2014 09/12/2014 Inactive (Response to an electronic controlled substance refill request - RxReferenceNumber: [id number]) Zithromax Z-Kush 250 mg tablet RxNorm: 170637 1 Tablet(s) PO UD 07/26/2014 07/25/2014 Inactive 2 tabs on day 1 then 1 tab daily on days 2-5 Zithromax Z-Kush 250 mg tablet RxNorm: 363881 1 Tablet(s) PO UD 07/26/2014 07/30/2014 Inactive 2 tabs on day 1 then 1 tab daily on days 2-5 alprazolam 0.5 mg ta blet RxNorm: 258206 Tablet(s) PO TAKE ONE TABLET BY MOUTH EVERY NIGHT AT BEDTIME AND NEEDED FOR PANIC ATTACKS 07/08/2014 08/30/2014 Inactive (Appended: Controlled substance eRx refill - RxReferenceNumber: [id number]) atorvastatin 20 mg t ablet RxNorm: 696971 TAKE ONE TABLET BY MO [facility] EVERY DAY 04/25/2014 01/18/2015 In active Carafate 1 gram tablet RxNorm: 328294 Tablet(s) PO TAKE ONE TABLET BY MOUTH FO UR TIMES A DAY 04/14/2014 10/08/2015 Inactive Fish Oil 1,000 mg ca psule RxNorm: 1 Capsule(s) PO TID 04/13/2014 10/08/2015 Inactive Flexeril 10 mg tablet RxNorm: 462020 1 Tablet(s) PO Q8 PRN 04/01/2014 04/10/2014 Inactive Carafate 1 gram tablet RxNorm: 868864 1 Tablet(s) PO QID 03/10/2014 04/08/2014 Inactive chlordiazepoxide-cli dinium 5 mg-2.5 mg capsule RxNorm: 704069 1 Capsule(s) PO TID P RN 03/10/2014 04/10/2014 Inactive doxazosin 4 mg tablet RxNorm: 757941 1 Tablet(s) PO BID 02/02/2014 02/12/2015 Inactive Kenalog 40 mg/mL sylvia pension for injection RxNorm: 5009967 Milliliter(s) Inj 02/02/2014 02/02/2014 In active atorvastatin 20 mg t ablet RxNorm: 413690 Tablet(s) PO TAKE ONE TABLET BY MOUTH EVERY DAY 01/10/2014 04/24/2014 Inactive alprazolam 0.5 mg ta blet RxNorm: 871406 Tablet(s) PO TAKE ONE TABLET BY MOUTH EVERY NIGHT AT BEDTIME AND NEEDED FOR PANIC ATTACKS 01/10/2014 07/07/2014 Inactive (Appended: Controlled substance eRx refill - RxReferenceNumber: [id number]) alprazolam 0.5 mg ta blet RxNorm: 560156 1 Tablet(s) PO QHS TA KE ONE TABLET BY MOUTH EVERY NIGHT AT BEDTIME AND NEEDED FOR PANIC ATTACKS 01/10/2014 10/20/2014 Inactive (Appended: Controlled substance eRx refi ll - RxReferenceNumber: [id number]) alprazolam 0.5 mg ta blet RxNorm: 009600 Tablet(s) PO TAKE ONE TABLET BY MOUTH EVERY NIGHT AT BEDTIME AND NEEDED FOR PANIC ATTACKS 01/10/2014 01/09/2014 Inactive (Appended: Controlled substance eRx refill - RxReferenceNumber: [id number]) Carafate 1 gram tablet RxNorm: 456696 1 Tablet(s) PO QID 12/16/2013 01/14/2014 Inactive Nexium 40 mg capsule ,delayed release RxNorm: 594193 Capsule(s) PO TAKE ON E CAPSULE BY MOUTH EVERY DAY 11/25/2013 03/12/2016 Inactive doxazosin 4 mg tablet RxNorm: 555447 1/2 Tablet(s) PO QPM 10/21/2013 10/20/2013 Inactive alprazolam 0.5 mg ta blet RxNorm: 547175 1 Tablet(s) PO as dir ected q hs and prn panic attacks 10/18/2013 01/10/2014 Inactive doxazosin 4 mg tablet RxNorm: 070127 1 q am 1/2 q pm Tablet(s) PO 09/21/2013 02/01/2014 Inactive doxazosin 4 mg tablet RxNorm: 173877 1 q am 1/2 q pm Tablet(s) PO 09/21/2013 09/20/2013 Inactive amlodipine 10 mg tablet RxNorm: 205613 1 Tablet(s) PO QAM 08/30/2013 08/24/2014 Inactive now taking full tab metoprolol tartrate 100 mg tablet RxNorm: 264098 2 Tablet(s) PO QPM 08/24/2013 10/22/2013 Inactive alprazolam 0.5 mg ta blet RxNorm: 310538 1 Tablet(s) PO as dir ected q hs and prn panic attacks 07/29/2013 10/17/2013 Inactive Benicar 20 mg tablet RxNorm: 258659 1 Tablet(s) PO daily 07/26/2013 08/09/2013 Inactive amlodipine 10 mg tablet RxNorm: 662911 1 Tablet(s) PO QAM 07/19/2013 08/29/2013 Inactive cyclobenzaprine 5 mg tablet RxNorm: 400267 1 Tablet(s) PO TID WI N one pill every 8 hours as needed for muscle spasms. 07/19/2013 03/31/2014 Inactive Kenalog 40 mg/mL Sylvia p for Injection RxNorm: 4675046 1 Milliliter(s) Inj 06/30/2013 06/30/2013 In active prednisone 10 mg tab lets in a dose pack RxNorm: 525480 1 Tablet(s) PO as doc tor directed take steroid taper as directed on box 06/30/2013 07/09/2013 Inactive disp ense one PACK meclizine 25 mg tablet RxNorm: 673823 1 Tablet(s) PO Q6 PRN 1/2 - 1 pill every 6 hours as needed for vertigo 06/30/2013 08/10/2013 Inactive metoprolol tartrate 100 mg tablet RxNorm: 298456 1.5 Tablet(s) PO BID 06/30/2013 08/23/2013 In active metoprolol tartrate 100 mg tablet RxNorm: 181549 1 Tablet(s) PO BID 06/24/2013 06/29/2013 Inactive metoprolol tartrate 100 mg tablet RxNorm: 768391 1 Tablet(s) PO daily 06/17/2013 06/23/2013 In active metoprolol tartrate 100 mg tablet RxNorm: 330357 1 Tablet(s) PO daily 06/17/2013 06/16/2013 In active Toprol XL 100 mg tab let,extended release RxNorm: 022202 Tablet(s) PO TAKE ONE AND ONE- HALF TABLET BY MOUTH EVERY MORNING AND ONE TABLET IN THE EVENING 05/05/2013 06/22/2013 In active alprazolam 0.5 mg ta blet RxNorm: 214653 1 Tablet(s) PO as dir ected q hs and prn panic attacks 04/06/2013 07/28/2013 Inactive doxazosin 4 mg tablet RxNorm: 438390 Tablet(s) PO TAKE ONE TABLET BY MOUTH EV KANE DAY 04/01/2013 09/20/2013 Inactive Toprol XL 100 mg tab let,extended release RxNorm: 650371 Tablet(s) PO TAKE ONE AND ONE- HALF TABLET BY MOUTH EVERY MORNING AND ONE TABLET IN THE EVENING 12/25/2012 05/04/2013 In active Lasix 20 mg tablet RxNorm: 466029 1 Tablet(s) PO QDAY PRN Take 1 tab daily x 3 days then as needed 12/02/2012 04/10/2014 Inactive potassium chloride E R 20 mEq tablet,extended release(part/cryst) RxNorm: 725449 1 Tablet(s) PO PRN 12/02/2012 10/04/2013 Inactive prn swelling alprazolam 0.5 mg ta blet RxNorm: 114796 1 Tablet(s) PO as dir ected q hs and prn panic attacks 12/01/2012 04/05/2013 Inactive amlodipine 10 mg tablet RxNorm: 105252 1/2 Tablet(s) PO QAM 12/01/2012 07/18/2013 Inactive fluconazole 150 mg t ablet RxNorm: 192730 1 Tablet(s) PO daily 11/16/2012 11/20/2012 Inactive fluconazole 150 mg t ablet RxNorm: 592289 1 Tablet(s) PO daily 11/16/2012 11/15/2012 Inactive Nexium 40 mg capsule ,delayed release RxNorm: 137530 1 Capsule(s) PO daily 10/23/2012 11/16/2013 In active acyclovir 400 mg tablet RxNorm: 954090 1 Tablet(s) PO TID 10/19/2012 10/28/2012 Inactive chlordiazepoxide-cli dinium 5 mg-2.5 mg capsule RxNorm: 265620 1 Capsule(s) PO TID P RN 2012 12/22/2013 Inactive Voltaren 1 % Topical Gel RxNorm: 241898 4 Gram(s) TOP QID pt is to use 2 grams to each hand and 4 grams to knees. 08/18/2012 04/10/2014 Inactive doxazosin 4 mg tablet RxNorm: 300872 1 Tablet(s) PO QAM 08/18/2012 10/16/2012 Inactive atorvastatin 20 mg t ablet RxNorm: 282882 1 Tablet(s) PO HS 08/12/2012 08/11/2012 Inactive may have #90 x3 infection atorvastatin 20 mg t ablet RxNorm: 006297 1 Tablet(s) PO HS 08/12/2012 09/05/2013 Inactive may have #90 x3 infection doxazosin 4 mg tablet RxNorm: 219885 1 Tablet(s) PO daily 08/11/2012 08/17/2012 Inactive clonidine 0.1 mg/24 hr Weekly Transderm Patch RxNorm: 535456 1 Patch TD QW 08/04/2012 08/10/2012 In active Influenza Virus Vacc ine 0.5 mL RxNorm: IM 08/04/2012 08/04/2012 Inactive cyclobenzaprine 5 mg tablet RxNorm: 095920 1 Tablet(s) PO TID WI N one pill every 8 hours as needed for muscle spasms. 07/13/2012 11/09/2012 Inactive cyclobenzaprine 5 mg tablet RxNorm: 020734 1 Tablet(s) PO TID WI N one pill every 8 hours as needed for muscle spasms. 07/09/2012 07/12/2012 Inactive gabapentin 100 mg ca psule RxNorm: 052923 1 Capsule(s) PO TID 07/01/2012 12/01/2012 Inactive atorvastatin 20 mg t ablet RxNorm: 018367 1/2 Tablet(s) PO daily 07/01/2012 08/11/2012 Inactive may of day supply if cheaper Toprol XL 100 mg tab let,extended release RxNorm: 992508 Tablet(s) PO BID 11/2 in am and 1 in evening 07/01/2012 06/16/2013 Inactive 1 1/2 q am 1 in [place] alprazolam 0.5 mg ta blet RxNorm: 960621 1 Tablet(s) PO as dir ected q hs and prn panic attacks 06/24/2012 11/30/2012 Inactive amlodipine 10 mg tablet RxNorm: 675083 1 Tablet(s) PO QAM 06/19/2012 11/30/2012 Inactive benazepril 20 mg tablet RxNorm: 042774 1 Tablet(s) PO daily 06/19/2012 06/13/2013 Inactive one daily at noon Toprol XL 100 mg tab let,extended release RxNorm: 400858 Tablet(s) PO BID 06/19/2012 06/30/2012 In active 1 1/2 q am 1 in [place] Toprol XL 100 mg tab let,extended release RxNorm: 510475 1 1/2 Tablet(s) PO BI D 04/27/2012 06/18/2012 In active 90 or 30 day supply, whatever ins will a llow Lotrel 10 mg-20 mg Cap RxNorm: 349468 1 Capsule(s) PO daily 04/20/2012 08/04/2012 Inactive estradiol 0.5 mg Tab RxNorm: 465377 1 Tablet(s) PO BID 04/20/2012 12/02/2012 Inactive Toprol XL 100 mg 24 hr Tab RxNorm: 286355 1 1/2 Tablet(s) PO BID 04/14/2012 04/26/2012 Inactive Toprol XL 100 mg 24 hr Tab RxNorm: 952851 Tablet(s) PO daily 03/31/2012 04/13/2012 Inactive new directions: one q am 1/2 every evepl ease put on file until she needs filled Lipitor 10 mg tablet RxNorm: 373307 1 Tablet(s) PO daily 03/31/2012 12/02/2012 Inactive may of 90 day supply if cheaper Toprol XL 100 mg 24 hr Tab RxNorm: 957115 1 Tablet(s) PO daily 03/11/2012 03/30/2012 Inactive Boniva 150 mg Tab RxNorm: 512394 1 Tablet(s) PO weekly 02/19/2012 12/02/2012 Inactive Detrol LA 4 mg capsu le,extended release RxNorm: 452225 1 Capsule(s) PO daily 02/19/2012 03/12/2016 In active doxycycline hyclate 100 mg Tab RxNorm: 919649 1 Tablet(s) PO BID 01/23/2012 02/25/2012 Inactive Rocephin 500 mg Solu tion for Injection RxNorm: 734125 1 Milliliter(s) Inj 01/23/2012 01/23/2012 In active Kenalog 40 mg/mL Sylvia p for Injection RxNorm: 6711975 1 Milliliter(s) Inj 01/23/2012 01/23/2012 In active cyclobenzaprine 5 mg tablet RxNorm: 058561 1 Tablet(s) PO TID WI N one pill every 8 hours as needed for muscle spasms. 12/20/2011 04/17/2012 Inactive clonidine 0.1 mg Tab RxNorm: 026149 1 Tablet(s) PO BID 12/20/2011 02/25/2012 Inactive Vitamin D3 5,000 uni t tablet RxNorm: 480958 1 Tablet(s) PO daily No Start Date Active Nexium 24HR 22.3 mg capsule,delayed release RxNorm: 471383 1 Capsule(s) PO daily as needed No Start Date Active Fish Oil 360 mg-1,20 0 mg capsule,delayed release RxNorm: 1 Capsule(s) PO daily No Start Date Active Lotrel 10 mg-20 mg Cap RxNorm: 366769 1 Capsule(s) PO daily No Start Date 02/24/2012 Inactive benazepril 20 mg tablet RxNorm: 324494 1 Tablet(s) PO No Start Date 06/18/2012 Inactive one daily at noon Vimovo 500 mg-20 mg multiphase, immed & delay rel Tab RxNorm: 690692 1 Tablet(s) PO BID No Start Date 12/01/2012 Inactive B12 1000 mcg RxNorm: 2 IM daily No Start Date 03/12/2016 Inactive Fish Oil 1,000 mg ca psule RxNorm: 1 Capsule(s) PO BID No Start Date 04/12/2014 Inactive Benicar 40 mg tablet RxNorm: 236229 1 Tablet(s) PO daily No Start Date 10/24/2013 Inactive Carafate 1 gram tablet RxNorm: 909563 Oral No Start Date 12/15/2013 Inactive Vitamin B-12 1,000 m cg tablet RxNorm: 612580 1 Tablet(s) PO daily No Start Date 03/12/2016 Inactive amlodipine 10 mg tablet RxNorm: 276510 1 Tablet(s) PO daily No Start Date 06/18/2012 Inactive Phenergan VC-Codeine 6.25 mg-5 mg-10 mg/5 mL Syrup RxNorm: 986917 5-10 Milliliter(s) PO Q6 PRN No Start Date 04/10/2014 Inactive Celebrex 200 mg capsule RxNorm: 857575 1 Capsule(s) PO daily No Start Date 10/08/2015 Inactive Percocet 5 mg-325 mg tablet RxNorm: 5943438 1-2 Tablet(s) PO Q6 PRN No Start Date 06/16/2014 Inactive Exforge 10 mg-320 mg Tab RxNorm: 397963 1 Tablet(s) PO daily sample No Start Date 05/20/2012 Inactive Lipitor 10 mg Tab RxNorm: 817054 1 Tablet(s) PO daily No Start Date 03/30/2012 Inactive tramadol 50 mg tablet RxNorm: 711922 1-2 Tablet(s) PO Q8 as needed No Start Date 04/24/2016 Inactive Lasix 20 mg tablet RxNorm: 124633 1 Tablet(s) PO QDAY PRN Take 1 tab daily x 3 days then as needed No Start Date 12/01/2012 Inactive potassium chloride E R 20 mEq tablet,extended release(part/cryst) RxNorm: 3315142 1 Tablet(s) PO QDAY PRN No Start Ochoa e 12/01/2012 Inactive Toprol XL 100 mg 24 hr Tab RxNorm: 699971 1 Tablet(s) PO daily No Start Date 03/10/2012 Inactive MIDRIN 325 mg-65 mg- 100 mg Cap RxNorm: 905014 1 Capsule(s) PO PRN No Start Date 05/20/2012 Inactive Nexium 40 mg capsule ,delayed release RxNorm: 575672 1 Capsule(s) PO daily No Start Date 10/22/2012 Inactive Detrol LA 4 mg 24 hr Cap RxNorm: 239234 Oral No S tart Date 02/18/2012 Inactive Boniva 150 mg Tab RxNorm: 720309 Oral No Start Date 02/18/2012 Inactive Flexeril 10 mg tablet RxNorm: 591396 1 Tablet(s) PO Q8 PRN No Start Date 03/31/2014 Inactive clidinium bromide Oral RxNorm: Oral No Start Date 12/01/2012 Inactive alprazolam 0.5 mg ta blet RxNorm: 838144 1 Tablet(s) PO as dir ected q hs and prn panic attacks No Start Date 06/23/2012 Inactive chlordiazepoxide Oral RxNorm: Oral No Start Date 12/01/2012 Inactive metoprolol tartrate 100 mg tablet RxNorm: 689191 Tablet(s) PO TAKE ONE AND ONE-HALF (1 & 1/2) TABLET BY MOUTH EVERY MORNING AND TAKE TWO TABLETS BY MOUTH EVERY EVENING No Start Date 08/03/2014 Inactive furosemide 20 mg tablet RxNorm: 605625 1 Tablet(s) PO daily No Start Date 01/29/2016 Inactive Calcium Oral RxNorm: Oral No Start Date 03/12 Inactive Nasonex 50 mcg/actua tion [place] RxNorm: 427628 1 [place] NASAL BID No Start Date 04/10/2014 Inactive Medication Administered Medication Codes Instruc tions Start Date Status Kenalog 40 mg/mL suspension for injection RxNorm: 0137275 Milliliter 04/24/2018 No longer Active Kenalog 40 mg/mL suspension for injection RxNorm: 6392994 Milliliter 06/23/2017 No longer Active Kenalog 40 mg/mL suspension for injection RxNorm: 4836431 2Milliliter 03/21/2017 N o longer Active Kenalog 40 mg/mL suspension for injection RxNorm: 9164381 1Milliliter 04/04/2016 N o longer Active Kenalog 40 mg/mL suspension for injection RxNorm: 9245602 Milliliter 06/12/2015 No longer Active Kenalog 40 mg/mL suspension for injection RxNorm: 0552234 Milliliter 05/15/2015 No longer Active Kenalog 40 mg/mL suspension for injection RxNorm: 5985165 Milliliter 02/02/2014 No longer Active Kenalog 40 mg/mL Susp for Injection RxNorm: 6908449 1Milliliter 06/30/2013 N o longer Active Influenza Virus Vaccine 0.5 mL RxNorm: 08/04/2012 No longer Active Rocephin 500 mg Solution for Injection RxNorm: 531573 1Milliliter 01/23/2012 N o longer Active Kenalog 40 mg/mL Susp for Injection RxNorm: 8133820 1Milliliter 01/23/2012 N o longer Active Immunizations [...] right kidney ICD-10: D41.01 ICD-9: 236.91 06/08/2018 Acute upper respiratory infection, unspecified ICD-10: J06.9 ICD-9: 465.9 05/04/2018 Allergic contact dermatitis due to plants, except food ICD-10: L23.7 ICD-9: 692.6 04/24/2018 Localized edema ICD-10: R60.0 ICD-9: 782.3 02/04/2018 Mixed hyperlipidemia ICD-10: E78.2 ICD-9: 272.2 02/04/2018 Type 2 diabetes mellitus without complications [...] Visit Reason For Visit Effective Dates Notes leg pain/sciatica 08/17/2018 hypertension 06/08/2018 cough 05/04/2018 [...] Ord2 RDW 14.8 % 06/05/2015 Comp Metabolic Afd224 NA 138 mEq/L 06/05/2015 Comp Metabolic Jrf861 K 4.3 mEq/L 06/05/2015 Comp Metabolic Xfj420 CL 100 mEq/L 06/05/2015 Comp Metabolic Nfr918 CO2 29.0 mEq/L 06/05/2015 Comp Metabolic Sxr693 AN ION GAP 13 06/05/2015 Comp Metabolic Ucn025 GL UCOSE 85 mg/dL 06/05/2015 Comp Metabolic Aqe493 Cr eat 0.7 mg/dL 06/05/2015 Comp Metabolic Ots876 eG FR 94 ml/min/1.73m2 06/05 Comp Metabolic Xxc140 BUN 16 mg/dL 06/05/2015 Comp Metabolic Mdo577 B/ C Ratio 24.2 Ratio 06/05/2015 Comp Metabolic Mup044 CA LCIUM 9.5 mg/dL 06/05/2015 Comp Metabolic Okw507 AL K PHOS 69 U/L 06/05/2015 Comp Metabolic Pfb608 T(SGOT) 22 U/L 06/05/2015 Comp Metabolic Rrf174 AL T(SGPT) 26 U/L 06/05/2015 Comp Metabolic Hdl028 BI LI T 0.5 mg/dL 06/05/2015 Comp Metabolic Gmi247 AL BUMIN 4.2 g/dL 06/05/2015 Comp Metabolic Kdg569 TP RO 6.1 g/dL 06/05/2015 Comp Metabolic Jpk417 GL OB 1.9 g/dL 06/05/2015 Comp Metabolic Scy626 A/ G Ratio 2.2 Ratio 06/05/2015 Comp Metabolic Scj984 Os mo 276 mOsmo 06/05/2015 Tsh Ord6 hTSH II 1.99 uIU/mL 06/05/2015 Lipid Ord30 CHOL 171 mg/dL 06/05/2015 Lipid Ord30 HDL 55.0 mg/dl 06/05/2015 Lipid Ord30 TRIG 178 mg/dL 06/05/2015 Lipid Ord30 LDL 80 mg/dL 06/05/2015 Lipid Ord30 C/HDL 3.1 Ratio 06/05/2015 %Hba1C Dox501 % HbA1c 81808-6 5.7 % 06/05/2015 %Hba1C Yal517 Gluc Ave 117 mg/dL 06/05/2015 A1C HPLC 1483040 A1C HPLC 76415-8 5.6 % 07/15/2014 GFR CALC 4632797 GFR AA >60 ML/MIN 07/15/2014 GFR CALC 8400148 GFR NON -AA >60 ML/MIN 07/15/2014 CHEM 14 20280507 AST 21 U/L 07/15/2014 CHEM 14 20280507 ALT 23 IU/L 07/15/2014 CHEM 14 20280507 BUN 14 MG/DL 07/15/2014 CHEM 14 5453281 ALBUMIN 4.2 GM/DL 07/15/2014 CHEM 14 4838120 CHLORIDE 104 MMOL/L 07/15/2014 CHEM 14 2046641 BILI TOT 0.4 MG/DL 07/15/2014 CHEM 14 0440998 ALK PHOS 88 U/L 07/15/2014 CHEM 14 6705917 SODIUM 140 MMOL/L 07/15/2014 CHEM 14 2200576 CREATINI NE 0.63 MG/DL 07/15/2014 CHEM 14 5136145 CALCIUM 9.4 MG/DL 07/15/2014 CHEM 14 0502959 POTASSIUM 4.0 MMOL/L 07/15/2014 CHEM 14 4986811 PROT TOT 6.4 GM/DL 07/15/2014 CHEM 14 3578206 GLUCOSE 90 MG/DL 07/15/2014 CHEM 14 7690685 BICARB 30 MMOL/L 07/15/2014 CHEM 14 2996483 ANION GAP 6 MEQ/L 07/15/2014 A1C HPLC 4410146 A1C HPLC 87175-1 6.0 % 04/13/2014 TSH 9160800 TSH 1.875 uIU/ML 04/12/2014 CHEM 14 6288736 AST 17 U/L 04/12/2014 CHEM 14 6359566 ALT 20 IU/L 04/12/2014 CHEM 14 8827432 BUN 14 MG/DL 04/12/2014 CHEM 14 0977749 ALBUMIN 4.2 GM/DL 04/12/2014 CHEM 14 0255772 CHLORIDE 104 MMOL/L 04/12/2014 CHEM 14 3364785 BILI TOT 0.3 MG/DL 04/12/2014 CHEM 14 9317139 ALK PHOS 80 U/L 04/12/2014 CHEM 14 7935965 SODIUM 141 MMOL/L 04/12/2014 CHEM 14 4755753 CREATINI NE 0.62 MG/DL 04/12/2014 CHEM 14 0124408 CALCIUM 9.4 MG/DL 04/12/2014 CHEM 14 1296786 POTASSIUM 3.5 MMOL/L 04/12/2014 CHEM 14 7501093 PROT TOT 6.5 GM/DL 04/12/2014 CHEM 14 5970631 GLUCOSE 89 MG/DL 04/12/2014 CHEM 14 5849770 BICARB 29 MMOL/L 04/12/2014 CHEM 14 2338968 ANION GAP 8 MEQ/L 04/12/2014 LIPID GRP HDL TE ST 59 MG/DL 04/12/2014 LIPID GRP TRIG 177 MG/DL 04/12/2014 LIPID GRP TEST L DL 106 MG/DL 04/12/2014 LIPID GRP CHOL 200 MG/DL 04/12/2014 LIPID GRP RCHOL/ HDL 3.39 RATIO 04/12/2014 CBC 3265743 WBC 4.6 10e9/L 04/12/2014 CBC 0036185 RBC 4.52 10e12/L 04/12/2014 CBC 5022807 HGB 13.1 g/dL 04/12/2014 CBC 1563025 HCT DET 39.2 % 04/12/2014 CBC 6920043 MCV 86.7 fL 04/12/2014 CBC 7993483 MCH 29.0 pg 04/12/2014 CBC 7410968 MCHC 33.4 g/dL 04/12/2014 CBC 7122494 PLT 233 10e9/L 04/12/2014 CBC 9279466 MPV 9.8 fL 04/12/2014 CBC 9742244 AN % 59.5 % 04/12/2014 CBC 0774810 LY % 28.6 % 04/12/2014 CBC 7562301 MON % 10.0 % 04/12/2014 CBC 1332280 EOS % 1.5 % 04/12/2014 CBC 1874777 BASO % 0.4 % 04/12/2014 CBC 5385031 RDW 13.7 % 04/12/2014 CBC 0545229 ABS AN 2.74 10e9/L 04/12/2014 CBC 7493244 ABS LYMPH 1.32 10e9/L 04/12/2014 CBC 2905653 ABS MONO 0.46 10e9/L 04/12/2014 CBC 3584171 ABS EOS 0.07 10e9/L 04/12/2014 CBC 0504857 ABS BASO 0.02 10e9/L 04/12/2014 CBC 9437134 RDW-SD 42.6 fL 04/12/2014 GFR CALC 5182888 GFR AA >60 ML/MIN 04/12/2014 GFR CALC 7402943 GFR NON -AA >60 ML/MIN 04/12/2014 LIPID GRP HDL TE ST 57 MG/DL 08/24/2013 LIPID GRP TRIG 183 MG/DL 08/24/2013 LIPID GRP TEST L DL 64 MG/DL 08/24/2013 LIPID GRP CHOL 158 MG/DL 08/24/2013 LIPID GRP 9914762 RCHOL/ HDL 2.77 RATIO 08/24/2013 GFR CALC 4599380 GFR AA >60 ML/MIN 08/24/2013 GFR CALC 3680735 GFR NON -AA >60 ML/MIN 08/24/2013 CHEM 14 2301399 AST 13 U/L 08/24/2013 CHEM 14 8677405 ALT 15 IU/L 08/24/2013 CHEM 14 3001429 BUN 14 MG/DL 08/24/2013 CHEM 14 9519785 ALBUMIN 4.3 GM/DL 08/24/2013 CHEM 14 1500503 CHLORIDE 106 MMOL/L 08/24/2013 CHEM 14 2225590 BILI TOT 0.3 MG/DL 08/24/2013 CHEM 14 5651725 ALK PHOS 75 U/L 08/24/2013 CHEM 14 7355081 SODIUM 141 MMOL/L 08/24/2013 CHEM 14 2070649 CREATINI NE 0.56 MG/DL 08/24/2013 CHEM 14 8901579 CALCIUM 9.1 MG/DL 08/24/2013 CHEM 14 0759189 POTASSIUM 4.2 MMOL/L 08/24/2013 CHEM 14 0673117 PROT TOT 6.0 GM/DL 08/24/2013 CHEM 14 8541976 GLUCOSE 83 MG/DL 08/24/2013 CHEM 14 4222765 BICARB 28 MMOL/L 08/24/2013 CHEM 14 9597066 ANION GAP 7 MEQ/L 08/24/2013 CBC 8885594 WBC 4.7 10e9/L 08/24/2013 CBC 6809905 RBC 4.33 10e12/L 08/24/2013 CBC 3909838 HGB 12.5 g/dL 08/24/2013 CBC 2503887 HCT DET 38.2 % 08/24/2013 CBC 2265387 MCV 88.2 fL 08/24/2013 CBC 2367915 MCH 28.9 pg 08/24/2013 CBC 5908282 MCHC 32.7 g/dL 08/24/2013 CBC 0496467 PLT 218 10e9/L 08/24/2013 CBC 1853607 MPV 10.4 fL 08/24/2013 CBC 4607590 AN % 61.9 % 08/24/2013 CBC 9557597 LY % 24.8 % 08/24/2013 CBC 4159337 MON % 10.3 % 08/24/2013 CBC 0243762 EOS % 2.1 % 08/24/2013 CBC 7015242 BASO % 0.9 % 08/24/2013 CBC 0975744 RDW 14.6 % 08/24/2013 CBC 3896660 ABS AN 2.91 10e9/L 08/24/2013 CBC 0101331 ABS LYMPH 1.17 10e9/L 08/24/2013 CBC 9926893 ABS MONO 0.48 10e9/L 08/24/2013 CBC 0532694 ABS EOS 0.10 10e9/L 08/24/2013 CBC 3703409 ABS BASO 0.04 10e9/L 08/24/2013 CBC 4491690 RDW-SD 46.7 fL 08/24/2013 TSH 0529163 TSH 1.208 uIU/ML 08/24/2013 Review of Systems System Result Effective Dates Constitutional recent illness 08/17/2018 Constitutional No anorexia [...] 06/08/2018 Musculoskeletal muscle weakness 06/08/2018 Psychiatric anxiety 04/2018 Constitutional recent illness 05/04/2018 Constitutional No [...] rash Neurologic No dizziness 12/20/2011 Neurologic headache 1 05/2012 Neurologic neck pain Neurologic paresthesia 0 12/20/2011 [...] normal 01/22/2017 None Full Exam - General 1995 Ears/Nose/Throat lips/teeth/gingiva Overall: benign lips 01/22/2017 None [...] 1-2+ at ankles Full Exam - General 1995 Constitutional general appearance Overall: well developed 07/26/2013 [...] time 07/26/2013 None Full Exam - General 1995 Constitutional general appearance Overall: well developed 06/30/2013 [...] affect 08/04/2012 None Full Exam - General 1995 Psychiatric mood and affect Mood: happy 08/04/2012 [...] tenderness 03/10/2012 None Full Exam - General 1995 Abdomen [...] rate 01/23/2012 None Full Exam - General 1995 Cardiovascular auscultation of heart Overall: regular rate 01/23/2012 None Full Exam - General 1994 Cardiovascular auscultation of heart Overall: normal heart sounds 01/23/2012 None Full Exam - General 1994 Psychiatric orientation/consciousness Overall: oriented to person, place and time 01/23/2012 None Full Exam - General 1995 Lymphatic neck nodes Overall: anterior cervical chain [...] tenderness 12/20/2011 None Full Exam - General 1995 Abdomen abdominal exam Overall: normal bowel sounds 12/20/2011 None Procedures Procedure Codes Date ADMIN INFLUENZA VIRU S VAC CPT-4: G0008 07/28/2018 FLU VACC PRSV FREE I NC ANTIG Formatting Model/CDA Sections, Assigned to/Jen Cota CPT-4: 33966Ruwdxuo 07/28/2018 THER/PROPH/DIAG INJ SC/IM CPT-4: 52131 04/24/2018 TRIAMCINOLONE ACET I [place] NOS CPT-4: J3301 04/24/2018 PPPS, SUBSEQ VISIT CPT- 4: G0439 02/03/2018 TRIAMCINOLONE ACET I [place] NOS CPT-4: J3301 06/23/2017 TRIAMCINOLONE ACET I [place] NOS CPT-4: J3301 03/21/2017 PPPS, SUBSEQ VISIT CPT- 4: G0439 01/22/2017 ADMIN PNEUMOCOCCAL V ACCINE SNOMED CT: [id number] CPT-4: G0009 09/16/2016 Pneumococcal Polysac charide Vaccine, 23-Valent, Ad CPT-4: 03494 09/16/2016 THER/PROPH/DIAG INJ SC/IM CPT-4: 68429 04/04/2016 TRIAMCINOLONE ACET I [place] NOS CPT-4: J3301 04/04/2016 ADMIN INFLUENZA VIRU S VAC CPT-4: G0008 07/28/2015 FLU VACC 4 XIMENA 3 YRS PLUS IM Formatting Model/CDA Sections, Assigned to/Cipriano Jen SNOMED CT: [id number] CPT-4: 96178Sergyht 07/28/2015 TRIAMCINOLONE ACET I [place] NOS CPT-4: J3301 06/12/2015 TRIAMCINOLONE ACET I [place] NOS CPT-4: J3301 05/15/2015 ADMIN INFLUENZA VIRU S VAC CPT-4: G0008 07/19/2014 FLU VAC NO PRSV 4 VA L 3 YRS+ Assigned to/Jen Cota CPT-4: 12674Zazjimd 07/19/2014 TRIAMCINOLONE ACET I [place] NOS CPT-4: J3301 02/02/2014 ROUTINE VENIPUNCTURE CPT-4: 20917 08/24/2013 ADMIN INFLUENZA VIRU S VAC CPT-4: [...] CPT-4: J3301 01/23/2012 THER/PROPH/DIAG INJ SC/IM CPT-4: 79238 01/23/2012 REMOVE IMPACTED EAR WAX UNI CPT-4: 67812 01/02/2012 ROUTINE VENIPUNCTURE CPT-4: 77534 12/20/2011 Vital Signs Date Vital 08/17/2018 Blood Pressure 1: 140/76 Code: 8480-6 BMI: 33.0 Code: 29662-2 Heart Rate 1: 60 bpm Height: 5' SpO2: 99% Weight: 172 lbs 06/08/2018 Blood Pressure 1: 136/80 Code: 8480-6 BMI: 33.8 Code: 07820-2 Heart Rate 1: 65 bpm Height: 5' SpO2: 98% Weight: 176 lbs 05/04/2018 Blood Pressure 1: 134/80 Code: 8480-6 BMI: 35.9 Code: 40383-4 Heart Rate 1: 72 bpm Height: 5' SpO2: 94% Weight: 187 lbs 02/04/2018 Blood Pressure 1: 144/76 Code: 8480-6 BMI: 35.0 Code: 61309-0 Heart Rate 1: 64 bpm Height: 5' SpO2: 98% Weight: 182 lbs 02/03/2018 Blood Pressure 1: 136/62 Code: 8480-6 BMI: 35.0 Code: 77393-7 Heart Rate 1: 57 bpm Height: 5' SpO2: 98% Waist Measure (cm): 94 cm Weight: 182 lbs 09/17/2017 Blood Pressure 1: 150/82 Code: 8480-6 BMI: 33.6 Code: 81322-6 Heart Rate 1: 58 bpm Height: 5' SpO2: 98% Weight: 175 lbs 06/23/2017 Blood Pressure 1: 124/66 Code: 8480-6 Heart Rate 1: 65 bpm Height: 5' SpO2: 97% Weight: 05/13/2017 Blood Pressure 1: 128/80 Code: 8480-6 BMI: 32.8 Code: 71890-3 Heart Rate 1: 76 bpm Height: 5' SpO2: 95% Weight: 171 lbs 03/21/2017 Blood Pressure 1: 152/88 Code: 8480-6 Heart Rate 1: 70 bpm Height: SpO2: 98% Weight: 03/19/2017 Blood Pressure 1: 132/64 Code: 8480-6 BMI: 33.0 Code: 55288-8 Heart Rate 1: 64 bpm Height: 5' SpO2: 96% Weight: 172 lbs 01/22/2017 Blood Pressure 1: 120/68 Code: 8480-6 BMI: 33.4 Code: 85218-0 Heart Rate 1: 68 bpm Height: 5' SpO2: 96% Weight: 174 lbs 01/14/2017 Blood Pressure 1: 138/80 Code: 8480-6 BMI: 33.4 Code: 80412-7 Heart Rate 1: 69 bpm Height: 5' SpO2: 98% Weight: 174 lbs 09/23/2016 Blood Pressure 1: 138/70 Code: 8480-6 BMI: 33.6 Code: 33365-0 Heart Rate 1: 68 bpm Height: 5' SpO2: 98% Temperature: 36.4 (C ) / 97.5 (F) Weight: 175 lbs 09/16/2016 Blood Pressure 1: 124/74 Code: 8480-6 BMI: 33.6 Code: 92366-0 Heart Rate 1: 64 bpm Height: 5' SpO2: 97% Weight: 175 lbs 06/25/2016 Weigh t: 174 lbs 06/17/2016 Blood Pressure 1: 128/80 Code: 8480-6 BMI: 34.0 Code: 81732-6 Heart Rate 1: 76 bpm Height: 5' SpO2: 95% Weight: 177 lbs 04/03/2016 Blood Pressure 1: 138/72 Code: 8480-6 BMI: 34.2 Code: 78166-6 Heart Rate 1: 63 bpm Height: 5' SpO2: 96% Weight: 178 lbs 03/13/2016 Blood Pressure 1: 128/72 Code: 8480-6 BMI: 35.3 Code: 19367-6 Heart Rate 1: 71 bpm Height: 5' SpO2: 97% Weight: 184 lbs 01/30/2016 Blood Pressure 1: 134/72 Code: 8480-6 BMI: 35.2 Code: 23930-2 Heart Rate 1: 71 bpm Height: 5' SpO2: 96% Weight: 183 lbs 12/21/2015 Blood Pressure 1: 148/90 Code: 8480-6 BMI: 34.6 Code: 30838-4 Heart Rate 1: 89 bpm Height: 5' SpO2: 96% Weight: 180 lbs 10/09/2015 Blood Pressure 1: 124/76 Code: 8480-6 BMI: 34.6 Code: 08815-6 Heart Rate 1: 88 bpm Height: 5' SpO2: 96% Weight: 180 lbs 06/12/2015 Blood Pressure 1: 148/74 Code: 8480-6 BMI: 33.4 Code: 63109-5 Heart Rate 1: 70 bpm Height: 5' SpO2: 96% Weight: 174 lbs 06/05/2015 Blood Pressure 1: 142/82 Code: 8480-6 BMI: 33.2 Code: 56706-4 Heart Rate 1: 72 bpm Height: 5' Weight: 173 lbs 05/15/2015 Blood Pressure 1: 118/80 Code: 8480-6 BMI: 33.6 Code: 33089-6 Heart Rate 1: 82 bpm Height: 5' Weight: 175 lbs 02/06/2015 Blood Pressure 1: 122/76 Code: 8480-6 BMI: 34.6 Code: 88389-1 Heart Rate 1: 58 bpm Height: 5' Weight: 180 lbs 01/10/2015 Blood Pressure 1: 158/90 Code: 8480-6 Blood Pressure 2: 152/90 Code: 8480-6 BMI: 34.6 Code: 25125-7 Heart Rate 1: 68 bpm Height: 5' Weight: 180 lbs 07/19/2014 Blood Pressure 1: 142/78 Code: 8480-6 BMI: 33.6 Code: 54708-9 Heart Rate 1: 56 bpm Height: 5' Weight: 175 lbs 06/17/2014 Blood Pressure 1: 128/86 Code: 8480-6 Heart Rate 1: 66 bpm SpO2: 98% Weight: 172 lbs 04/19/2014 Blood Pressure 1: 152/82 Code: 8480-6 BMI: 32.5 Code: 43936-7 Heart Rate 1: 60 bpm Height: 5' Weight: 169 lbs 04/11/2014 Blood Pressure 1: 120/80 Code: 8480-6 BMI: 33.4 Code: 61734-1 Heart Rate 1: 64 bpm Height: 5' Weight: 174 lbs 03/10/2014 Blood Pressure 1: 136/64 Code: 8480-6 BMI: 32.7 Code: 34926-3 Heart Rate 1: 76 bpm Height: 5' Weight: 170 lbs 02/02/2014 Blood Pressure 1: 160/76 Code: 8480-6 BMI: 32.7 Code: 03835-7 Heart Rate 1: 64 bpm Height: 5' Weight: 170 lbs 10/25/2013 Blood Pressure 1: 164/82 Code: 8480-6 BMI: 31.9 Code: 57397-5 Heart Rate 1: 60 bpm Height: 5' Weight: 166 lbs 08/24/2013 Blood Pressure 1: 138/88 Code: 8480-6 Heart Rate 1: 80 bpm Weight: 07/26/2013 Blood Pressure 1: 154/70 Code: 8480-6 Heart Rate 1: 72 bpm Weight: 162 lbs 06/30/2013 Blood Pressure 1: 182/86 Code: 8480-6 Heart Rate 1: 80 bpm Weight: 06/24/2013 Blood Pressure 1: 148/68 Code: 8480-6 BMI: 31.3 Code: 85831-9 Heart Rate 1: 72 bpm Height: 5' [...] 1: 142/88 Code: 8480-6 BMI: 30.6 Code: 53883-9 Heart Rate 1: 64 bpm Height: 5' [...] 1: 180/96 Code: 8480-6 BMI: 30.5 Code: 55839-8 Heart Rate 1: 76 bpm Height: 5' Respiratory Rate: 16 bpm Weight: 159 lbs 02/19/2012 Blood Pressure 1: 150/70 Code: 8480-6 Blood Pressure 2: 160/78 Code: 8480-6 Heart Rate 1: 76 bpm Respiratory Rate: 16 bpm Weight: 158 lbs 01/23/2012 Blood Pressure 1: 140/84 Code: 8480-6 BMI: 30.3 Code: 41343-8 Heart Rate 1: 68 bpm Height: 5' Respiratory Rate: 16 bpm SpO2: 98% Temperature: 37.0 (C ) / 98.6 (F) Weight: 158 lbs 01/02/2012 Blood Pressure 1: 142/92 Code: 8480-6 BMI: 30.7 Code: 65520-3 Heart Rate 1: 72 bpm Height: 5' Respiratory Rate: 16 bpm Weight: 160 lbs 12/20/2011 Blood Pressure 1: 170/84 Code: 8480-6 BMI: 30.0 Code: 02855-5 Heart Rate 1: 70 bpm Height: 5' Respiratory Rate: 16 bpm Weight: 156 lbs Functional Status No Functional Status data History of Present Illness Symptom Name Status Resu lt Effective Date Notes leg pain/sciatica Location right leg sciatica 08/17/2018 [...] 06/12/2015 None rash Location-Head/Neck on the right [facility] 06/12/2015 None rash Location-Head/Neck on the right [...] tachycardia 08/24/2013 None hypertension Quality [facility] 07/26/2013 None hypertension Onset and Resolution [...] change 06/30/2013 None hypertension Quality [facility] 06/30/2013 None hypertension Onset and Resolution ongoing 06/30/2013 None hypertension Blood Pressure Values pt checking blood pressure - see scanned document 06/30/2013 [id number]/82 hypertension Quality [facility] 06/24/2013 patient states that her T [...] Encounters Encounter Performer Loca tion Codes Date ([id number]) [id number] EST. P ATIENT, LEVEL IV Diagnosis: Essential (primary) hypertension[ICD10: I10] Diagnosis: Allergic rhinitis due to pollen[ICD10: J30.1] Diagnosis: Sciatica, right side[ICD10: M54.31] Zoya Varela MD, [facility] CPT- 4: 54474 08/17/2018 ([id number]) 45028 EST. 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 CPT-4: 26512 06/08/2018 ([id number]) 70910 EST. P ATIENT, LEVEL III Diagnosis: Acute upper respiratory infection, unspecified[ICD10: J06.9] Kacy Varela MD, [facility] CPT-4: 18962 05/04/2018 ([id number]) 16189 EST. P ATIENT, LEVEL IV Diagnosis: Essential (primary) hypertension[ICD10: I10] Diagnosis: Type 2 diabetes mellitus without complications[ICD10: E11.9] Diagnosis: Mixed hyperlipidemia[ICD10: E78.2] Diagnosis: Localized edema[ICD10: R60.0] Zoya Varela MD, [facility] CPT-4: 45561 02/04/2018 ([id number]) 36146 EST. P ATIENT, LEVEL IV Diagnosis: Essential (primary) hypertension[ICD10: I10] Zoya Varela MD, [facility] CPT-4: 69947 09/17/2017 ([id number]) 31724 EST. P ATIENT, LEVEL III Diagnosis: Allergic contact dermatitis due to plants, except food[ICD10: L23.7] Kacy Varela MD, [facility] CPT-4: 01570 06/23/2017 ([id number]) 73402 EST. P ATIENT, LEVEL IV Diagnosis: Essential (primary) hypertension[ICD10: I10] Diagnosis: Mixed hyperlipidemia[ICD10: E78.2] Zoya Varela MD, [facility] CPT- 4: 89127 05/13/2017 ([id number]) 19772 EST. P ATIENT, LEVEL III Diagnosis: Allergic contact dermatitis due to plants, except food[ICD10: L23.7] Kacy Varela MD, [facility] CPT-4: 64521 03/21/2017 50426 EST. PATIENT, LEVEL III Diagnosis: Bitten or stung by nonvenomous insect and other nonvenomous arthropods, initial encounter[ICD10: W57.XXXA] Diagnosis: Cellulitis of left lower limb[ICD10: L03.116] Laura Varela MD, [facility] CPT-4: 01779 03/19/2017 ([id number]) 58951 EST. P ATIENT, LEVEL IV Diagnosis: Type 2 diabetes mellitus without complications[ICD10: E11.9] Diagnosis: Essential (primary) hypertension[ICD10: I10] Diagnosis: Other specified epidermal thickening[ICD10: L85.8] Zoya Varela MD, [facility] CPT-4: 38804 01/14/2017 63070 EST. PATIENT, LEVEL III Diagnosis: Glossodynia[ICD10: K14.6] Kacy Varela MD, [facility] CPT- 4: 79183 09/23/2016 ([id number]) 03711 EST. P ATIENT, LEVEL IV Diagnosis: Encounter for screening mammogram for malignant neoplasm of breast[ICD10: Z12.31] Diagnosis: Encounter for immunization[ICD10: Z23] Zoya Varela MD, [facility] CPT-4: 76167 09/16/2016 ([id number]) 62196 EST. P ATIENT, LEVEL III Diagnosis: Diseases of lips[ICD10: K13.0] Diagnosis: Allergic rhinitis due to pollen[ICD10: J30.1] Kacy Varela MD, [facility] CPT-4: 82740 06/25/2016 ([id number]) 88221 EST. P ATIENT, LEVEL III Diagnosis: Essential (primary) hypertension[ICD10: I10] Kacy Varela MD, [facility] CPT-4: 40908 06/17/2016 06997 EST. PATIENT, LEVEL IV Diagnosis: Other acute sinusitis[ICD10: J01.80] Diagnosis: Acute laryngopharyngitis[ICD10: J06.0] Diagnosis: Other allergic rhinitis[ICD10: J30.89] Laura Varela MD, [facility] CPT-4: 12507 04/03/2016 ([id number]) 16212 EST. P ATIENT, LEVEL IV Diagnosis: Essential (primary) hypertension[ICD10: I10] Diagnosis: Localized edema[ICD10: R60.0] Diagnosis: Polyneuropathy, unspecified[ICD10: G62.9] Zoya Varela MD, [facility] CPT-4: 34512 03/13/2016 ([id number]) 81839 EST. P ATIENT, LEVEL IV Diagnosis: Essential (primary) hypertension[ICD10: I10] Diagnosis: Localized edema[ICD10: R60.0] Diagnosis: Type 2 diabetes mellitus without complications[ICD10: E11.9] Zoya Varela MD, [facility] CPT-4: 61981 01/30/2016 87765 EST. PATIENT, LEVEL IV Diagnosis: Localized edema[ICD10: R60.0] Laura Varela MD, [facility] CPT-4: 87822 12/21/2015 ([id number]) 74633 EST. P ATIENT, LEVEL III Diagnosis: Essential (primary) hypertension[ICD10: I10] Diagnosis: Allergic rhinitis due to pollen[ICD10: J30.1] Diagnosis: Cervicalgia[ICD10: M54.2] Kacy Varela MD, [facility] CPT- 4: 48688 10/09/2015 49093 EST. PATIENT, LEVEL II Diagnosis: Contact dermatitis[ICD9: 692.9] Kacy Varela MD, [facility] CPT- 4: 53418 06/12/2015 ([id number]) 11375 EST. P ATIENT, LEVEL III Diagnosis: ESSENTIAL HYPERTENSION[ICD9: 401.9] Diagnosis: DIABETES TYPE II[ICD9: 250.00] Diagnosis: Anxiety[ICD9: 300.00] Kacy Varela MD, [facility] CPT-4: 33889 06/05/2015 ([id number]) 35514 EST. P ATIENT, LEVEL IV Diagnosis: Anxiety[ICD9: 300.00] Diagnosis: ALLERGIC RHINITIS[ICD9: 477.9] Diagnosis: ESOPHAGEAL REFLUX[ICD9: 530.81] Kacy Varela MD, [facility] CPT- 4: 38663 05/15/2015 ([id number]) 09536 EST. P ATIENT, LEVEL III Diagnosis: ESSENTIAL HYPERTENSION[ICD9: 401.9] Zoya Varela MD, [facility] CPT- 4: 82854 02/06/2015 ([id number]) 30842 EST. P ATIENT, LEVEL IV Diagnosis: ESSENTIAL HYPERTENSION[ICD9: 401.9] Diagnosis: EDEMA[ICD9: 782.3] Diagnosis: DIABETES TYPE II[ICD9: 250.00] Zoya Varela MD, [facility] CPT-4: 92018 01/10/2015 ([id number]) 85432 EST. P ATIENT, LEVEL IV Diagnosis: ESSENTIAL HYPERTENSION[ICD9: 401.9] Diagnosis: DIABETES TYPE II[ICD9: 250.00] Zoya Varela MD, [facility] CPT-4: 92023 07/19/2014 ([id number]) 29138 EST. P ATIENT, LEVEL III Diagnosis: Left ankle pain[ICD9: 719.47] Kacy Varela MD, [facility] CPT- 4: 60429 06/17/2014 ([id number]) 40371 EST. P ATIENT, LEVEL III Diagnosis: ESSENTIAL HYPERTENSION[ICD9: 401.9] Diagnosis: Elevated blood sugar[ICD9: 790.29] Zoya Varela MD, [facility] CPT- 4: 03631 04/19/2014 ([id number]) 84260 EST. P ATIENT, LEVEL IV Diagnosis: ESSENTIAL HYPERTENSION[SNOMED: 57500425] Diagnosis: ESOPHAGEAL REFLUX[ICD9: 530.81] Zoya Varela MD, [facility] CPT-4: 73722 04/11/2014 ([id number]) 25508 EST. P ATIENT, LEVEL IV Diagnosis: ALLERGIC RHINITIS[ICD9: 477.9] Diagnosis: Anxiety[ICD9: 300.00] Diagnosis: Dyspnea[ICD9: 786.09] Diagnosis: ESOPHAGEAL REFLUX[ICD9: 530.81] Kacy Varela MD, [facility] CPT- 4: 99969 03/10/2014 ([id number]) 92394 EST. P ATIENT, LEVEL III Diagnosis: ALLERGIC RHINITIS[ICD9: 477.9] Diagnosis: ESSENTIAL HYPERTENSION[SNOMED: 87944950] Kacy Varela MD, [facility] CPT-4: 92658 02/02/2014 ([id number]) 34383 EST. P ATIENT, LEVEL III Diagnosis: ESSENTIAL HYPERTENSION[SNOMED: 33002080] Diagnosis: Skin irritation[ICD9: 709.9] Zoya Varela MD, [facility] CPT-4: 74090 10/25/2013 ([id number]) 20700 EST. P ATIENT, LEVEL III Diagnosis: HYPERLIPIDEMIA[ICD9: 272.4] Diagnosis: ESSENTIAL HYPERTENSION[SNOMED: 17044010] Diagnosis: EDEMA[ICD9: 782.3] Diagnosis: Encounter for long-term (current) use of other medications[ICD9: V58.69] Zoya Varela MD, [facility] CPT-4: 14633 08/24/2013 ([id number]) 13674 EST. P ATIENT, LEVEL III Diagnosis: ESSENTIAL HYPERTENSION[SNOMED: 01750449] Zoya Varela MD, C CPT-4: 52527 07/26/2013 ([id number]) 67799 EST. P ATIENT, LEVEL III Diagnosis: ESSENTIAL HYPERTENSION[SNOMED: 47217148] Zoya Varela MD, C CPT-4: 23044 06/30/2013 ([id number]) 94938 EST. P ATIENT, LEVEL III Diagnosis: ESSENTIAL HYPERTENSION[SNOMED: 06276788] Zoya Varela MD, C CPT-4: 86683 06/24/2013 ([id number]) 90903 EST. P ATIENT, LEVEL IV Diagnosis: ESSENTIAL HYPERTENSION[SNOMED: 41270945] Diagnosis: Leg pain[ICD9: 729.5] Diagnosis: Leg swelling[ICD9: 729.81] Zoya Varela MD, [facility] CPT-4: 14757 12/01/2012 ([id number]) 06637 EST. P ATIENT, LEVEL III Diagnosis: Shingles[ICD9: 053.9] Zoya Varela MD, [facility] CPT-4: 90889 10/19/2012 ([id number]) 75600 EST. P ATIENT, LEVEL IV Diagnosis: EDEMA[ICD9: 782.3] Diagnosis: ESSENTIAL HYPERTENSION[SNOMED: 77819168] Zoya Varela MD, C CPT-4: 51301 10/07/2012 ([id number]) 75177 EST. P ATIENT, LEVEL IV Diagnosis: ESSENTIAL HYPERTENSION[SNOMED: 09588040] Diagnosis: EDEMA[ICD9: 782.3] Diagnosis: Irritable bowel disease[ICD9: 564.1] Zoya Varela MD, [facility] CPT-4: 21531 2012 ([id number]) 21489 EST. P ATIENT, LEVEL III Diagnosis: ESSENTIAL HYPERTENSION[SNOMED: 85170084] Zoya Varela MD, C CPT-4: 82397 08/18/2012 ([id number]) 19888 EST. P ATIENT, LEVEL III Diagnosis: ESSENTIAL HYPERTENSION[SNOMED: 50173234] Zoya Varela MD, C CPT-4: 81801 08/04/2012 ([id number]) 59503 EST. P ATIENT, LEVEL IV Diagnosis: ESSENTIAL HYPERTENSION[SNOMED: 17205391] Diagnosis: Lumbago[ICD9: 724.2] Diagnosis: HYPERLIPIDEMIA[ICD9: 272.4] Zoya Varela MD, [facility] CPT-4: 90679 07/01/2012 ([id number]) 95675 EST. P ATIENT, LEVEL III Diagnosis: ESSENTIAL HYPERTENSION[SNOMED: 84774869] Zoya Varela MD, C CPT-4: 02931 05/20/2012 ([id number]) 25396 EST. P ATIENT, LEVEL IV Diagnosis: ESSENTIAL HYPERTENSION[SNOMED: 87255800] Diagnosis: Hot flash, menopausal[ICD9: 627.2] Zoya Varela MD, [facility] CPT- 4: 08151 04/20/2012 17021 EST. PATIENT, LEVEL IV Diagnosis: SPASM OF MUSCLE[ICD9: 728.85] Diagnosis: Back pain[ICD9: 724.5] Diagnosis: ESSENTIAL HYPERTENSION[SNOMED: 37215082] Zoya Varela MD, C CPT-4: 31029 03/10/2012 ([id number]) 49066 EST. 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 P ATIENT, LEVEL III Diagnosis: ESSENTIAL HYPERTENSION[SNOMED: 08390819] Zoya Varela MD, C CPT-4: 51995 02/19/2012 27107 EST. PATIENT, LEVEL IV Diagnosis: ESSENTIAL HYPERTENSION[SNOMED: 08623173] Diagnosis: Cough[ICD9: 786.2] Kacy Varela MD, [facility] CPT-4: 63611 01/23/2012 ([id number]) 30574 EST. P ATIENT, LEVEL IV Diagnosis: HYPERLIPIDEMIA[ICD9: 272.4] Diagnosis: ESSENTIAL HYPERTENSION[SNOMED: 81584545] Zoya Varela MD, C CPT-4: 44407 01/02/2012 OFFICE VISIT, NEW - LEVEL 4 Diagnosis: ESSENTIAL HYPERTENSION[SNOMED: 17363772] Diagnosis: HYPERLIPIDEMIA[ICD9: 272.4] Diagnosis: IMPACTED CERUMEN[ICD9: 380.4] Diagnosis: Muscle spasm[ICD9: 728.85] Diagnosis: CHRONIC TENSION HEADACHE[ICD9: 339.12] Diagnosis: Neck pain, chronic[ICD9: 723.1] Diagnosis: Change in skin mole[ICD9: 216.9] Zoya Varela MD, [facility] CPT-4: 44487 12/20/2011 Plan of Care Planned Activity Notes [...] she can be seen by Oncology in [place]. 06/08/2018 [facility]ment[phone] ([facility] min) Moderate 06/08/2018 Patient Education: Patient Medication Summary Completed 06/08/2018 Visit Plan: URI - Pt advised to inc rease fluids, vitamin C. Discussed natural and expected course of this diagnosis and need to alert me if symptoms do not follow expected course, or if any worse. RX sent to patient's pharmacy. 05/04/2018 Appointment: [phone] [place] (30 min) Complex 05/04/2018 Patient [...] lower extremities. 02/04/2018 Appointment: Zoya Varela WPtel: [facility]5 [facility] (15 min) Moderate 02/04/2018 Patient Education: [...] Summary Completed 02/03/2018 Appointment: Laura Velasco WPtel: [facility]7 [facility] [facility] - Annual Wellness Visit 01/28/2018 Appointment: Zoya Varela WPtel: [address] [place], [place] [phone] (15 min) Moderate 01/15/2018 Visit Plan: Hypertension [...] Dr. Madison. 09/17/2017 Appointment: Zoya Varela WPtel: [facility] (15 min) Moderate 09/17/2017 Patient Education: Patient Medication Summary Completed 09/17/2017 Patient Education: Obesity Completed 09/17/2017 Patient Education: Hypertension Completed 09/17/2017 Care Plan: SCREENINGMAMMOGRAPHYDIGITAL [facility] 56103-5 Pending 09/17/2017 Visit Plan: Poison Sarah -kenalog inj ection today in the office-start prednisone tomorrow pt is to use topical treatments as directed. Pt is cleanse clothing in hot water with soap, and call if symptoms do not improve or if they worsen. 06/23/2017 Appointment: Kacy Moses WPtel: [facility] [place] [phone] (15 min) Moderate 06/23/2017 Patient Education: Patient [...] medications. 05/13/2017 Appointment: Zoya Varela WPtel: [phone] [facility] (15 min) Moderate 05/13/2017 Patient Education: [...] worsen. 03/21/2017 Appointment: [phone] [phone] [place] (15 min) Moderate 03/21/2017 Patient Education: [...] pain. 03/19/2017 Appointment: [facility]co [facility]el[phone] [facility] [place] (15 min) Moderate 03/19/2017 Patient Education: Patient [...] in hearing. 01/22/2017 Appointment: Laura Velasco WPtel: [facility]2 [facility] [facility] - Annual Wellness Visit 01/22/2017 Appointment: [...] at home. 01/14/2017 Appointment: Zoya Varela WPtel: [facility]6 [facility] (15 min) Moderate 01/14/2017 Patient Education: [...] plan. 09/23/2016 Appointment: Kacy Moses WPtel: [phone] [phone] [place] (15 min) Moderate 09/23/2016 Patient Education: [...] to medications. 09/16/2016 Appointment: Zoya Varela WPtel: [facility]0 [facility] (15 min) Moderate 09/16/2016 Patient Education: Patient Medication Summary Completed 09/16/2016 Patient Education: Obesity Completed 09/16/2016 Care Plan: SCREENINGMAMMOGRAPHYDIGITAL LOINC : 34673-3 Pending 09/16/2016 Visit Plan: Cracked/painful lips-ba cterial [...] any worse. 06/25/2016 Appointment: Kacy Moses WPtel: [phone] (15 min) Moderate 06/25/2016 Patient Education: Patient [...] allergy spray. 04/03/2016 Appointment: Kacy Moses WPtel: [facility]6 [phone] (30 min) Complex 04/03/2016 Patient Education: Patient [...] Hypertension Completed 03/13/2016 Appointment: Zoya Varela WPtel: [facility]5 [facility] (15 min) Moderate 02/28/2016 Appointment: Zoya Varela WPtel: [facility]5 [facility] (15 min) Moderate 02/01/2016 Visit Plan: [...] for treatment. 01/30/2016 Appointment: Zoya Varela WPtel: [address] [place] [id number] (15 min) Moderate 01/30/2016 Patient Education: Patient [...] home. 02/06/2015 Appointment: [phone] Follow up 02/06/2015 Patient Education: Patient Medication [...] edema. 01/10/2015 Appointment: Zoya Varela WPtel: [phone] [facility] Sick 01/10/2015 Patient Education: Patient Medication Summary Completed 01/10/2015 Patient Education: Hypertension Completed 01/10/2015 Visit Plan: Hypertension - well [place] tsanged - continue with current medications, continue with [...] controlled. 07/19/2014 Appointment: Zoya Varela WPtel: [phone] [facility] Follow up 07/19/2014 Patient Education: Patient Medication Summary Completed 07/19/2014 Patient Education: Hypertension Completed 07/19/2014 Care Plan: SCREENINGMAMMOGRAPHYDIGITAL LOINC : 39499-7 Ordered 07/19/2014 Visit Plan: Left ankle pain-sprain- [...] home. 04/19/2014 Appointment: [facility] Moses [facility]el[phone] [facility] [place] [address] Diabetic education 04/19/2014 Patient Education: Patient Medication [...] medications. 04/11/2014 Appointment: [phone] Follow [facility] 04/11/2014 Patient Education: Patient Medication [...] spray in the nasal steroid allergy spray. Szzjizy-asnhrymdbyqm-bknxuis xanax at bedtime Esophageal Reflux - the patient has been counseled against excessive intake of caffiene, spicy foods, peppermint, and cinnamon - all of which can exacerbate esophageal reflux. The patient is to take medications as prescribed and call the office if the symptoms are not improving. 03/10/2014 Appointment: [facility]la [facility]el[phone] Other 03/10/2014 Patient Education: Patient Medication Summary [...] allergy spray. 02/02/2014 Appointment: [facility]Ptel[phone] [place] Other 02/02/2014 Patient Education: Patient [...] the site. 10/25/2013 Appointment: Zoya Varela WPtel: [address] [place], [place] [phone] Follow up 10/25/2013 Patient Education: Patient Medication [...] AT BEDTIME 08/24/2013 Appointment: Zoya Varela WPtel: [facility] Follow up 08/24/2013 Patient Education: Patient Medication [...] acute concerns. 07/26/2013 Appointment: Zoya Varela WPtel: [facility] Follow up 07/26/2013 Patient Education: Patient Medication [...] IMPROVE. 06/30/2013 Appointment: [facility]arela [facility]Ptel: [phone] [facility] Other 06/30/2013 Patient Education: Patient Medication Summary [...] acute concerns. 06/24/2013 Appointment: [facility] Moses [facility]Ptel[phone] [phone] Follow up 06/24/2013 Patient Education: Patient Medication Summary Completed 06/24/2013 Patient Education: Hypertension Completed 06/24/2013 Appointment: Zoya Varela WPtel: [address] [place], [place] [phone] Other 03/23/2013 Visit Plan: Hypotension - pt is on chronic antihypertensive medication - the medication has been adjusted down to attempt to alleviate the low blood pressures. Leg pain - Leg swelling - pt to have ultrasound on her right lower leg due to post-operative swelling and pain. 12/01/2012 Appointment: Zoya Varela WPtel: [address] [place], [place] [phone] Follow up 12/01/2012 Patient Education: Patient Medication Summary Completed 12/01/2012 Patient Education: Hypertension Completed 12/01/2012 Appointment: Zoya Varela WPtel: [address] [place], [place] [phone] Follow up 10/20/2012 Visit Plan: Shingles - [...] considered contagious. 10/19/2012 Appointment: Zoya Varela WPtel: [facility]5 [facility] Other 10/19/2012 Patient Education: Patient Medication [...] peripheral edema. 10/07/2012 Appointment: K[facility] Moses [facility]Ptel[phone] [facility] Other 10/07/2012 Patient Education: Hypertension Completed 10/07/2012 Patient Education: Patient Medication Summary Completed 10/07/2012 Visit Plan: Hypertension - well con itzel [...] peripheral edema. 2012 Appointment: Zoya Varela WPtel: [phone] [facility] Other 2012 Patient Education: Patient Medication [...] THE EVENING. 08/18/2012 Appointment: Zoya Varela WPtel: [facility]2 [facility] Follow up 08/18/2012 Patient Education: Patient [...] the knees. 08/04/2012 Appointment: Zoya Varela WPtel: [phone] [facility] Follow up 08/04/2012 Patient Education: Patient [...] twice daily. 07/01/2012 Appointment: Zoya Varela WPtel: [phone] [facility] Other 07/01/2012 Patient Education: Patient Medication [...] two weeks 05/20/2012 Appointment: Zoya Varela WPtel: [phone] [facility] Follow up 05/20/2012 Patient Education: Patient Medication Summary Completed 05/20/2012 Patient Education: High Blood Pressure: Essential Hypertension Completed 05/20/2012 Appointment: [phone] Other 05/11/2012 Visit Plan: Hypertension - uncontro [...] dosing. 04/20/2012 Appointment: Zoya Varela WPtel: [phone] [facility] Follow up 04/20/2012 Patient Education: Patient [...] weeks. 03/10/2012 Appointment: [phone] Other 03/10/2012 Patient Education: Patient Medication Summary [...] with codeine. 02/25/2012 Appointment: Zoya Varela WPtel: [facility] [address] Other 02/25/2012 Patient Education: Patient Medication [...] the office. 02/19/2012 Appointment: Zoya Varela WPtel: [facility] [address] Other 02/19/2012 Patient Education: Patient Medication [...] the office 01/23/2012 Appointment: Kacy Moses WPtel: [address] [place] [phone] [facility] 01/23/2012 Patient Education: Patient Medication [...] TWICE DAILY. 01/02/2012 Appointment: [phone] [place] Other 01/02/2012 Patient Education: Patient Medication [...] daily. Skin lesion to be evaluatedby Dr. Sacnhez on 01/08/12@11AM. Muscle spasms- flexeril 5 mg take as needed for muscle spasms. Cerumen impaction - unable to remove today, will have to use sweet oil to soften wax and hopefully will be able to remove in 2 wks. 12/20/2011 Appointment: [facility]Ptel[phone] [place] New Patient 12/20/2011 Patient Education: Patient [...] or if they worsen. . Hypertension - [facility] ontrolled - [...] MORNING TOPROL 2 PILLS AT BEDTIME . Elevated blood sug ars-diabetes and diet [...] any worse. RX sent to patient's pharmacy. increase doxazosin t o 1.5 of the [...] readings are starting to become less controlled. START STEROID TAPER ON FRIDAY. MECLIZINE IS [...] in the nasal steroid allergy spray. . Medicare Exam - to day we [...] incident and had improvement in hearing. . Sinusitis - Pt has acute infection [...] not resolve or if any worse. . Medicare Exam - to day we [...] she can be seen by Oncology in [place]. . Tick - tick with h ead [...] spray in the nasal steroid allergy spray. Hmdofcb-cqumqycfvqvl-izwjzck xanax at bedtime Esophageal Reflux - the [...] liver response to medications. . Hypertension - un controlled - the [...] medication phenergan with codeine. . Hypertension - [facility] ontrolled - the [...] 0.1 mg by mouth TWICE DAILY. . If the clonidine p atch has the blood pressures at or below 120/80, then the pt is to stop her norvasc and call the clinic, pt is to rtc in 2 weeks. Apply the pennsaid 15 drops to each knee three times daily, rub in the pennsaid to hands after each application on the knees. . Shingles - Herpes Zoster - acute [...] able to remove in 2 wks. . Blood pressure hav ing a lot of inconsistent readings.. I have instructed Natali to take her medications as follows: Toprol xl 2 pills in the morning Lotrel - 1 pill at noon Toprol xl 1 pill at bedtime Bring by blood pressure and heart rate readings in two weeks PT TO CUT AMLODIPINE TO 1/2 OF [...] today in the office . Hypertension - [facility] ontrolled - the patient's medications have been [...] NUMBER, call the office. . Hypertension - [facility] ontrolled - the patient's medications have been [...] week, then increase to twice daily. . Hypertension - [facility] ontrolled - the patient's medications have been [...] be uncontrolled, increase to bid dosing. . Low back pain- the patient was [...]
--- OUTSIDE RECORDS SUMMARY | 2020-05-26 03:20 | XMS REPORT | CCD ---
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 Name Role Phone PP Unavailable CCM Unavailable Summary Purpose Interface Exchange Insurance Providers Payer name Policy type / Coverage type Covered green party ID Effective Begin Date Effective End Date WPS Medicare Part B Medicare Part B [id number] Unknown MEDICO INSURANCE [place] Medicare Part B [id number] Unknown Family history Mother Diagnosis Age At Onset Liver Failure Unknown Diabetes mellitus Type 2 Unknown Hyperlipidemia Unknown Hypertension Unknown Cancer Unknown Arthritis Unknown Father Diagnosis Age At Onset Liver Failure Unknown Cancer Unknown Social History Social History Element Codes Description Effective Dates Marital status Unknown M arried 12/12/2011 Number of children Unknown 3 12/12/[address]: 5806387 Former smoker quit in 199212/12/2011 Allergies, Adverse [...] Codes Condition Status Onset Date Resolved Date Acute upper respirat ory infection, unspecified ICD-9: 465.9 ICD-10: J06.9 Active 05/04/2018 Unknown Cough ICD-9: 786.2 ICD-10: R05 Active 01/21/2019 Unknown Essential (primary) hypertension ICD-9: 401.1 ICD-10: I10 [...] Condition Codes Effectiv e Dates Condition Status Acute upper respirat ory infection, unspecified ICD-9: 465.9 ICD-10: J06.9 05/04/2018 Active Cough ICD-9: 786.2 ICD-10: R05 01/21/2019 Active Essential (primary) hypertension ICD-9: 401.1 ICD-10: I10 [...] Instructions cyclobenzaprine 10 m g tablet RxNorm: 672505 TAKE ONE TABLET BY [facility] EVERY 8 HOURS NEEDED 01/27/2019 03/07/2019 Active doxazosin 4 mg tablet RxNorm: 991569 Tablet(s) TAKE ONE TABLET BY MOUTH TWO T IMES A DAY 01/21/2019 No Stop Date Active doxazosin 4 mg tablet RxNorm: 518528 Tablet(s) TAKE ONE AND ONE-HALF (1 & 1/2 ) TABLET BY MOUTH BY MOUTH TWO TIMES A DAY 11/12/2018 01/20/2019 Inactive cyclobenzaprine 10 m g tablet RxNorm: 563573 TAKE ONE TABLET BY [facility] EVERY 8 HOURS NEEDED 11/12/2018 12/01/2018 Inactive tramadol 50 mg tablet RxNorm: 551459 1-2 Tablet(s) PO Q8 as needed 10/02/2018 11/30/2018 In active metoprolol tartrate 100 mg tablet RxNorm: 123476 1 Tablet(s) BID 09/22/2018 09/20/2019 Active metoprolol tartrate 100 mg tablet RxNorm: 996009 TAKE ONE AND ONE-HALF (1 1/2) TABLETS BY MOUTH EVERY MORNING AND TAKE TWO TABLETS BY MOUTH EVERY EVENING 09/21/2018 09/21/2018 In active Xanax 0.25 mg tablet RxNorm: 976042 1/2-1 Tablet(s) PO QDAY PRN 08/19/2018 11/16/2018 Inactive cyclobenzaprine 10 m g tablet RxNorm: 436345 TAKE ONE TABLET BY [facility] EVERY 8 HOURS NEEDED 07/01/2018 08/09/2018 Inactive atorvastatin 20 mg t ablet RxNorm: 787536 TAKE ONE TABLET BY [facility] DAILY 06/29/2018 12/25/2018 In active atorvastatin 20 mg t ablet RxNorm: 363804 TAKE ONE TABLET BY [facility] DAILY 06/29/2018 06/28/2018 In active pilocarpine 5 mg tablet RxNorm: 6883728 1 Tablet(s) PO BID 06/09/2018 06/08/2018 Inactive pilocarpine 5 mg tablet RxNorm: 1462299 1 Tablet(s) PO BID for dry mouth 06/09/2018 09/21/2018 In active Evoxac 30 mg capsule RxNorm: 166403 1 Capsule(s) PO BID as needed dry mouth 06/08/2018 06/08/2018 In active may substitute generic cyclobenzaprine 10 m g tablet RxNorm: 940525 TAKE ONE TABLET BY MO [facility] EVERY 8 HOURS NEEDED 05/14/2018 06/30/2018 Inactive amoxicillin 500 mg c apsule RxNorm: 091139 1 Capsule(s) PO BID 05/04/2018 05/13/2018 Inactive amoxicillin 500 mg c apsule RxNorm: 728055 1 Capsule(s) PO BID 05/04/2018 05/03/2018 Inactive tramadol 50 mg tablet RxNorm: 341840 1-2 Tablet(s) PO Q8 as needed 04/24/2018 06/21/2018 In active Kenalog 40 mg/mL sylvia pension for injection RxNorm: 7159420 Milliliter(s) Inj 04/24/2018 04/24/2018 In active amlodipine 5 mg tablet RxNorm: 598720 Tablet(s) TAKE ONE TABLET BY MOUTH DAILY 04/02/2018 03/27/2019 Ac tive Xanax 0.25 mg tablet RxNorm: 673629 1/2-1 Tablet(s) PO QDAY PRN 04/02/2018 10/13/2018 Inactive metoprolol tartrate 100 mg tablet RxNorm: 893557 TAKE ONE AND ONE-HALF (1 1/2) TABLETS BY MOUTH EVERY MORNING AND TAKE TWO TABLETS BY MOUTH EVERY EVENING 02/25/2018 09/20/2018 In active Keflex 500 mg capsule RxNorm: 484890 1 Capsule(s) PO TID 02/06/2018 02/15/2018 Inactive Keflex 500 mg capsule RxNorm: 174161 1 Capsule(s) PO TID 02/06/2018 02/05/2018 Inactive Zithromax Z-Kush 250 mg tablet RxNorm: 526890 1 Tablet(s) PO UD 02/02/2018 02/06/2018 Inactive 2 tabs on day 1 then 1 tab daily on days 2-5 doxazosin 4 mg tablet RxNorm: 234706 TAKE ONE AND ONE-HALF (1 & 1/2) TABLET B Y MOUTH BY MOUTH TWO TIMES A DAY 01/16/2018 11/11/2018 Inactive atorvastatin 20 mg t ablet RxNorm: 775648 TAKE ONE TABLET BY MO [facility] DAILY 12/31/2017 06/28/2018 In active furosemide 20 mg tablet RxNorm: 856593 TAKE ONE TABLET BY MOUTH DAILY NEEDED FOR EDEMA 12/26/2017 06/23/2018 Inactive potassium chloride E R 10 mEq tablet,extended release RxNorm: 825585 TAKE ONE TABLET BY MOUTH NEEDED WITH LASIX 12/26/2017 06/23/2018 Inactive Xanax 0.25 mg tablet RxNorm: 032752 1/2-1 Tablet(s) PO QDAY PRN 11/27/2017 08/18/2018 Inactive cyclobenzaprine 10 m g tablet RxNorm: 445806 TAKE ONE TABLET BY MO [facility] EVERY 8 HOURS NEEDED 11/21/2017 02/08/2018 Inactive tramadol 50 mg tablet RxNorm: 523616 1-2 Tablet(s) PO Q8 as needed 10/28/2017 01/23/2018 In active metoprolol tartrate 100 mg tablet RxNorm: 632137 TAKE ONE AND ONE-HALF (1 1/2) TABLETS BY MOUTH EVERY MORNING AND TAKE TWO TABLETS BY MOUTH EVERY EVENING 10/28/2017 02/24/2018 In active cyclobenzaprine 10 m g tablet RxNorm: 138683 TAKE ONE TABLET BY MO [facility] EVERY 8 HOURS NEEDED 08/27/2017 10/25/2017 Inactive Xanax 0.25 mg tablet RxNorm: 921954 1/2-1 Tablet(s) PO QDAY PRN 08/04/2017 04/01/2018 Inactive cyclobenzaprine 10 m g tablet RxNorm: 994380 TAKE ONE TABLET BY MO [facility] EVERY 8 HOURS NEEDED 07/28/2017 08/16/2017 Inactive metoprolol tartrate 100 mg tablet RxNorm: 425873 TAKE ONE AND ONE-HALF (1 & 1/2) TABLET BY MOUTH EVERY MORNING AND TAKE TWO TABLETS BY MOUTH EVERY EVENING 07/28/2017 10/25/2017 In active cyclobenzaprine 10 m g tablet RxNorm: 519329 TAKE ONE TABLET BY MO [facility] EVERY 8 HOURS NEEDED 06/30/2017 07/19/2017 Inactive prednisone 10 mg tab lets in a dose pack RxNorm: 270372 1 Tablet(s) PO UD 06/23/2017 06/28/2017 In active 6-5-4-3-2-1 mupirocin 2 % topica l ointment RxNorm: 088865 1 Application TOP BID 06/23/2017 07/02/2017 Inactive Kenalog 40 mg/mL sylvia pension for injection RxNorm: 2192672 Milliliter(s) Inj 06/23/2017 06/23/2017 In active cyclobenzaprine 10 m g tablet RxNorm: 005468 TAKE ONE TABLET BY MO [facility] EVERY 8 HOURS NEEDED 06/09/2017 06/28/2017 Inactive meclizine 25 mg tablet RxNorm: 242703 1 Tablet(s) PO Q6 PRN as needed 1/2 - 1 pill every 6 hours as needed for vertigo 06/03/2017 07/14/2017 Inactive atorvastatin 20 mg t ablet RxNorm: 727914 TAKE ONE TABLET BY MO [facility] DAILY 05/30/2017 11/25/2017 In active amlodipine 5 mg tablet RxNorm: 654000 TAKE ONE TABLET BY MOUTH DAILY 05/15/2017 04/01/2018 In active cyclobenzaprine 10 m g tablet RxNorm: 732973 TAKE ONE TABLET BY MO [facility] EVERY 8 HOURS NEEDED 05/07/2017 05/26/2017 Inactive tramadol 50 mg tablet RxNorm: 242914 1-2 Tablet(s) PO Q8 as needed 04/07/2017 07/04/2017 In active cyclobenzaprine 10 m g tablet RxNorm: 870010 TAKE ONE TABLET BY MO [facility] EVERY 8 HOURS NEEDED 04/07/2017 04/26/2017 Inactive Xanax 0.25 mg tablet RxNorm: 047343 1/2-1 Tablet(s) PO QDAY PRN 04/04/2017 06/02/2017 Inactive metoprolol tartrate 100 mg tablet RxNorm: 047957 TAKE ONE AND ONE-HALF (1 & 1/2) TABLET BY MOUTH EVERY MORNING AND TAKE TWO TABLETS BY MOUTH EVERY EVENING 03/28/2017 07/25/2017 In active prednisone 10 mg tab lets in a dose pack RxNorm: 687961 1 Tablet(s) PO UD 03/21/2017 03/26/2017 In active 6-5-4-3-2-1 Kenalog 40 mg/mL sylvia pension for injection RxNorm: 6230036 2 Milliliter(s) Inj 03/21/2017 03/21/2017 In active doxycycline hyclate 100 mg capsule RxNorm: 9055292 1 Capsule(s) PO BID 03/19/2017 03/28/2017 In active cyclobenzaprine 10 m g tablet RxNorm: 443115 TAKE ONE TABLET BY MO [facility] EVERY 8 HOURS NEEDED 02/25/2017 03/16/2017 Inactive triamcinolone aceton pineda 0.1 % topical ointment RxNorm: 6437650 1 Application TOP TI D 02/21/2017 02/20/2017 Inactive triamcinolone aceton pineda 0.1 % topical ointment RxNorm: 3315216 1 Application TOP TI D 02/21/2017 03/02/2017 Inactive doxazosin 4 mg tablet RxNorm: 935369 TAKE ONE AND ONE-HALF (1 & 1/2) TABLET B Y MOUTH BY MOUTH TWO TIMES A DAY 02/14/2017 01/09/2018 Inactive cyclobenzaprine 10 m g tablet RxNorm: 000868 TAKE ONE TABLET BY MO [facility] EVERY 8 HOURS NEEDED 01/27/2017 02/15/2017 Inactive ammonium lactate 12 % topical cream RxNorm: 302383 1 Application TOP BID 01/14/2017 02/12/2017 In active dispense one bottle of the cream potassium chloride E R 10 mEq tablet,extended release RxNorm: 632028 1 Tablet(s) PO PRN as needed with lasix 11/13/2016 12/25/2017 Inactive prn swelling furosemide 20 mg tablet RxNorm: 380348 1 Tablet(s) PO daily as needed edema 11/13/2016 01/11/2017 In active metoprolol tartrate 100 mg tablet RxNorm: 570896 TAKE ONE AND ONE-HALF (1 & 1/2) TABLET BY MOUTH EVERY MORNING AND TAKE TWO TABLETS BY MOUTH EVERY EVENING 11/01/2016 03/27/2017 In active atorvastatin 20 mg t ablet RxNorm: 306224 TAKE ONE TABLET BY MO [facility] DAILY 10/31/2016 04/28/2017 In active cyclobenzaprine 10 m g tablet RxNorm: 929757 TAKE ONE TABLET BY MO [facility] EVERY 8 HOURS NEEDED 10/25/2016 12/03/2016 Inactive Lyrica 25 mg capsule RxNorm: 283064 1 Tablet(s) PO BID 09/23/2016 01/13/2017 Inactive Lyrica 50 mg capsule RxNorm: 524882 1 Capsule(s) PO BID 09/16/2016 01/13/2017 Inactive amlodipine 5 mg tablet RxNorm: 504713 Tablet(s) TAKE ONE TABLET BY MOUTH DAILY 08/28/2016 05/14/2017 In active cyclobenzaprine 10 m g tablet RxNorm: 576486 TAKE ONE TABLET BY [facility] EVERY 8 HOURS NEEDED 08/05/2016 09/13/2016 Inactive Xanax 0.25 mg tablet RxNorm: 764467 1/2-1 Tablet(s) PO QDAY PRN 07/16/2016 04/03/2017 Inactive amlodipine 5 mg tablet RxNorm: 838210 TAKE ONE TABLET BY MOUTH DAILY 06/28/2016 08/26/2016 In active metoprolol tartrate 100 mg tablet RxNorm: 976845 Tablet(s) TAKE ONE AN D ONE-HALF (1 & 1/2) TABLET BY MOUTH EVERY MORNING AND TAKE TWO TABLETS BY MOUTH EVERY EVENING 05/02/2016 05/02/2016 Inactive metoprolol tartrate 100 mg tablet RxNorm: 862598 Tablet(s) PO TAKE ONE AND ONE-HALF (1 & 1/2) TABLET BY MOUTH EVERY MORNING AND TAKE TWO TABLETS BY MOUTH EVERY EVENING 05/02/2016 05/01/2016 Inactive metoprolol tartrate 100 mg tablet RxNorm: 814685 Tablet(s) PO TAKE ONE AND ONE-HALF (1 & 1/2) TABLET BY MOUTH EVERY MORNING AND TAKE TWO TABLETS BY MOUTH EVERY EVENING 05/02/2016 10/28/2016 Inactive atorvastatin 20 mg t ablet RxNorm: 228918 TAKE ONE TABLET BY [facility] DAILY 04/25/2016 10/21/2016 In active tramadol 50 mg tablet RxNorm: 639149 1-2 Tablet(s) PO Q8 as needed 04/25/2016 10/27/2017 In active cyclobenzaprine 10 m g tablet RxNorm: 533333 Tablet(s) PO TAKE ONE TABLET BY MOUTH EVERY 8 HOURS NEEDED 04/18/2016 06/16/2016 Inactive Kenalog 40 mg/mL sylvia pension for injection RxNorm: 0844697 1 Milliliter(s) Inj 04/04/2016 04/04/2016 In active Phenergan with Codei ne Syrup RxNorm: PO 04/03/2016 No Stop Date Active Zithromax Z-Kush 250 mg tablet RxNorm: 053252 1 Tablet(s) PO UD 04/03/2016 04/07/2016 Inactive 2 tabs on day 1 then 1 tab daily on days 2-5 amlodipine 5 mg tablet RxNorm: 919577 TAKE ONE TABLET BY MOUTH DAILY 03/27/2016 06/24/2016 In active Flexeril 10 mg tablet RxNorm: 381424 TAKE ONE TABLET BY MOUTH EVERY 8 HOURS A S NEEDED 03/14/2016 04/02/2016 Inactive Vitamin B-12 ER 2,00 0 mcg tablet,extended release RxNorm: 588542 1 Tablet(s) PO daily 03/13/2016 No Stop Date Active Vitamin B-12 ER 2,00 0 mcg tablet,extended release RxNorm: 172778 1 Tablet(s) PO daily 03/13/2016 No Stop Date Active gabapentin 100 mg ca psule RxNorm: 952413 1 Capsule(s) PO BID 03/13/2016 09/15/2016 Inactive Flexeril 10 mg tablet RxNorm: 153391 Tablet(s) TAKE ONE TABLET BY MOUTH EVERY 8 HOURS NEEDED 02/08/2016 02/27/2016 Inactive Xanax 0.25 mg tablet RxNorm: 552676 1/2-1 Tablet(s) PO QDAY PRN 02/08/2016 07/15/2016 Inactive amlodipine 5 mg tablet RxNorm: 958677 1 Tablet(s) PO daily 02/06/2016 03/26/2016 Inactive furosemide 20 mg tablet RxNorm: 552191 1 Tablet(s) PO daily 01/30/2016 06/16/2016 Inactive amlodipine 10 mg tablet RxNorm: 599180 1/2 Tablet(s) PO daily 01/30/2016 02/05/2016 Inactive doxazosin 4 mg tablet RxNorm: 921493 1.5 Tablet(s) PO BID 01/30/2016 01/23/2017 Inactive Flexeril 10 mg tablet RxNorm: 980282 TAKE ONE TABLET BY MOUTH EVERY 8 HOURS A S NEEDED 01/10/2016 01/29/2016 Inactive potassium chloride E R 10 mEq tablet,extended release RxNorm: 625367 1 Tablet(s) PO PRN as needed with lasix 12/25/2015 06/16/2016 Inactive prn swelling amlodipine 10 mg tablet RxNorm: 089661 TAKE ONE TABLET BY MOUTH EVERY MORNING 12/25/2015 12/24/2015 In active amlodipine 10 mg tablet RxNorm: 227777 TAKE ONE TABLET BY MOUTH EVERY MORNING 12/25/2015 01/29/2016 In active furosemide 20 mg tablet RxNorm: 755193 1/2 Tablet(s) PO daily as needed edema 12/21/2015 01/19/2016 In active pt needs to take 10meq potassium on days she takes the lasix metoprolol tartrate 100 mg tablet RxNorm: 161322 TAKE ONE AND ONE-HALF (1 & 1/2) TABLET BY MOUTH EVERY MORNING AND TAKE TWO TABLETS BY MOUTH EVERY EVENING 11/08/2015 12/07/2015 In active Flonase Allergy Reli ef 50 mcg/actuation nasal spray,suspension RxNorm: [place] as needed PLACE 2 SPRAYS IN EACH NOSTRIL DAILY 10/09/2015 02/05/2016 Inactive Flexeril 10 mg tablet RxNorm: 405216 1 Tablet(s) PO TID PRN TAKE ONE TABLET B Y MOUTH EVERY 8 HOURS NEEDED 10/09/2015 12/07/2015 Inactive alprazolam 0.5 mg ta blet RxNorm: 964767 TAKE ONE TABLET BY [facility] AT BEDTIME NEEDED FOR ANXIETY 08/29/2015 11/23/2015 Inactive Flonase Allergy Reli ef 50 mcg/actuation nasal spray,suspension RxNorm: PLACE 2 SPRAYS IN EACH NOSTRIL DAILY 07/06/2015 10/08/2015 Inactive Kenalog 40 mg/mL sylvia pension for injection RxNorm: 5399257 Milliliter(s) Inj 06/12/2015 06/12/2015 In active prednisone 10 mg tab lets in a dose pack RxNorm: 682255 1 Tablet(s) PO UD 06/12/2015 06/17/2015 In active 6-5-4-3-2-1 acyclovir 800 mg tablet RxNorm: 373500 1 Tablet(s) PO TID 06/12/2015 06/21/2015 Inactive Xanax 0.25 mg tablet RxNorm: 689490 1/2-1 Tablet(s) PO QDAY PRN 05/15/2015 02/07/2016 Inactive Flonase Allergy Reli ef 50 mcg/actuation nasal spray,suspension RxNorm: 2 [place] NASAL daily 05/15/2015 06/13/2015 Inactive Kenalog 40 mg/mL sylvia pension for injection RxNorm: 3785780 Milliliter(s) Inj 05/15/2015 05/15/2015 In active metoprolol tartrate 100 mg tablet RxNorm: 108405 TAKE ONE AND ONE-HALF (1 & 1/2) TABLET BY MOUTH EVERY MORNING AND TAKE TWO TABLETS BY MOUTH EVERY EVENING 05/07/2015 06/05/2015 In active metoprolol tartrate 100 mg tablet RxNorm: 987610 TAKE ONE AND ONE-HALF (1 & 1/2) TABLET BY MOUTH EVERY MORNING AND TAKE TWO TABLETS BY MOUTH EVERY EVENING 04/05/2015 05/04/2015 In active amlodipine 10 mg tablet RxNorm: 652348 TAKE ONE TABLET BY MOUTH EVERY MORNING 03/10/2015 12/04/2015 In active alprazolam 0.5 mg ta blet RxNorm: 819490 TAKE ONE TABLET BY MO [facility] EVERY NIGHT AT BEDTIME NEEDED FOR ANXIETY 02/23/2015 03/24/2015 Inactive (Response to an electronic controlled substance refill request - RxReferenceNumber: [id number]) alprazolam 0.5 mg ta blet RxNorm: 738728 1 Tablet(s) PO QHS as needed anxiety 02/23/2015 08/29/2015 In active (Response to an electronic controlled salas bstance refill request - RxReferenceNumber: [id number]) doxazosin 4 mg tablet RxNorm: 978626 TAKE ONE TABLET BY MOUTH TWICE A DAY 02/13/2015 01/29/2016 In active atorvastatin 20 mg t ablet RxNorm: 285725 TAKE ONE TABLET BY MO [facility] EVERY DAY 01/19/2015 07/17/2015 In active atorvastatin 20 mg t ablet RxNorm: 153878 Tablet(s) TAKE ONE TA BLET BY MOUTH EVERY DAY 01/19/2015 01/18/2015 Inactive [SAVINGS FOR NON-COVERED DRUGS -- BIN:00 7806, PCN: ASPROD1, Group: XXXXX, ID# [id number], Questions: . THIS IS NOT INSURANCE.] Maxzide-25mg 37.5 mg -25 mg tablet RxNorm: 01741 1 Tablet(s) PO daily 01/10/2015 10/08/2015 Inactive [SAVINGS FOR NON-COVERED DRUGS -- BIN:00 3585, PCN: ASPROD1, Group: XXXXX, ID# [id number], Questions: . THIS IS NOT INSURANCE.] metoprolol tartrate 100 mg tablet RxNorm: 055023 TAKE ONE AND ONE-HALF (1 & 1/2) TABLET BY MOUTH EVERY MORNING AND TAKE TWO TABLETS BY MOUTH EVERY EVENING 12/05/2014 01/03/2015 In active Flexeril 10 mg tablet RxNorm: 722821 TAKE ONE TABLET BY MOUTH EVERY 8 HOURS A S NEEDED 10/31/2014 06/27/2015 Inactive alprazolam 0.5 mg ta blet RxNorm: 895053 1 Tablet(s) PO QHS TA KE ONE TABLET BY MOUTH EVERY NIGHT AT BEDTIME AND NEEDED FOR PANIC ATTACKS 10/21/2014 10/23/2014 Inactive (Appended: Controlled substance eRx refi ll - RxReferenceNumber: [id number]) alprazolam 0.5 mg ta blet RxNorm: 554068 TAKE ONE TABLET BY MO [facility] EVERY NIGHT AT BEDTIME NEEDED FOR ANXIETY 10/20/2014 11/18/2014 Inactive (Response to an electronic controlled substance refill request - RxReferenceNumber: [id number]) amlodipine 10 mg tablet RxNorm: 416034 1 Tablet(s) PO QAM 09/09/2014 03/07/2015 Inactive now taking full tab [SAVINGS FOR UNINSURED PATIENTS -- BIN:[id number], PCN: ASPROD1, Group: [id number], ID# [id number], Process claim through [employer]), for questions: . THIS IS NOT INSURANCE.] metoprolol tartrate 100 mg tablet RxNorm: 295025 TAKE ONE AND ONE-HALF (1 & 1/2) TABLET BY MOUTH EVERY MORNING AND TAKE TWO TABLETS BY MOUTH EVERY EVENING 09/03/2014 10/02/2014 In active alprazolam 0.5 mg ta blet RxNorm: 264651 TAKE ONE TABLET BY MO [facility] EVERY NIGHT AT BEDTIME AND NEEDED FOR PANIC ATTACKS 08/29/2014 09/12/2014 Inactive (Response to an electronic controlled substance refill request - RxReferenceNumber: [id number]) Zithromax Z-Kush 250 mg tablet RxNorm: 956585 1 Tablet(s) PO UD 07/26/2014 07/25/2014 Inactive 2 tabs on day 1 then 1 tab daily on days 2-5 Zithromax Z-Kush 250 mg tablet RxNorm: 139329 1 Tablet(s) PO UD 07/26/2014 07/30/2014 Inactive 2 tabs on day 1 then 1 tab daily on days 2-5 alprazolam 0.5 mg ta blet RxNorm: 234512 Tablet(s) PO TAKE ONE TABLET BY MOUTH EVERY NIGHT AT BEDTIME AND NEEDED FOR PANIC ATTACKS 07/08/2014 08/30/2014 Inactive (Appended: Controlled substance eRx refill - RxReferenceNumber: [id number]) atorvastatin 20 mg t ablet RxNorm: 795966 TAKE ONE TABLET BY [facility] EVERY DAY 04/25/2014 01/18/2015 In active Carafate 1 gram tablet RxNorm: 695719 Tablet(s) PO TAKE ONE TABLET BY MOUTH FO UR TIMES A DAY 04/14/2014 10/08/2015 Inactive Fish Oil 1,000 mg ca psule RxNorm: 1 Capsule(s) PO TID 04/13/2014 10/08/2015 Inactive Flexeril 10 mg tablet RxNorm: 310507 1 Tablet(s) PO Q8 PRN 04/01/2014 04/10/2014 Inactive Carafate 1 gram tablet RxNorm: 643404 1 Tablet(s) PO QID 03/10/2014 04/08/2014 Inactive chlordiazepoxide-cli dinium 5 mg-2.5 mg capsule RxNorm: 282281 1 Capsule(s) PO TID P RN 03/10/2014 04/10/2014 Inactive doxazosin 4 mg tablet RxNorm: 792204 1 Tablet(s) PO BID 02/02/2014 02/12/2015 Inactive Kenalog 40 mg/mL sylvia pension for injection RxNorm: 3057353 Milliliter(s) Inj 02/02/2014 02/02/2014 In active atorvastatin 20 mg t ablet RxNorm: 288695 Tablet(s) PO TAKE ONE TABLET BY MOUTH EVERY DAY 01/10/2014 04/24/2014 Inactive alprazolam 0.5 mg ta blet RxNorm: 074976 Tablet(s) PO TAKE ONE TABLET BY MOUTH EVERY NIGHT AT BEDTIME AND NEEDED FOR PANIC ATTACKS 01/10/2014 07/07/2014 Inactive (Appended: Controlled substance eRx refill - RxReferenceNumber: [id number]) alprazolam 0.5 mg ta blet RxNorm: 484884 1 Tablet(s) PO QHS TA KE ONE TABLET BY MOUTH EVERY NIGHT AT BEDTIME AND NEEDED FOR PANIC ATTACKS 01/10/2014 10/20/2014 Inactive (Appended: Controlled substance eRx refi ll - RxReferenceNumber: [id number]) alprazolam 0.5 mg ta blet RxNorm: 622153 Tablet(s) PO TAKE ONE TABLET BY MOUTH EVERY NIGHT AT BEDTIME AND NEEDED FOR PANIC ATTACKS 01/10/2014 01/09/2014 Inactive (Appended: Controlled substance eRx refill - RxReferenceNumber: [id number]) Carafate 1 gram tablet RxNorm: 501666 1 Tablet(s) PO QID 12/16/2013 01/14/2014 Inactive Nexium 40 mg capsule ,delayed release RxNorm: 685797 Capsule(s) PO TAKE ON E CAPSULE BY MOUTH EVERY DAY 11/25/2013 03/12/2016 Inactive doxazosin 4 mg tablet RxNorm: 310392 1/2 Tablet(s) PO QPM 10/21/2013 01/20/2019 Inactive alprazolam 0.5 mg ta blet RxNorm: 124355 1 Tablet(s) PO as dir ected q hs and prn panic attacks 10/18/2013 01/10/2014 Inactive doxazosin 4 mg tablet RxNorm: 541099 1 q am 1/2 q pm Tablet(s) PO 09/21/2013 02/01/2014 Inactive doxazosin 4 mg tablet RxNorm: 181474 1 q am 1/2 q pm Tablet(s) PO 09/21/2013 09/20/2013 Inactive amlodipine 10 mg tablet RxNorm: 209000 1 Tablet(s) PO QAM 08/30/2013 08/24/2014 Inactive now taking full tab metoprolol tartrate 100 mg tablet RxNorm: 095412 2 Tablet(s) PO QPM 08/24/2013 10/22/2013 Inactive alprazolam 0.5 mg ta blet RxNorm: 342879 1 Tablet(s) PO as dir ected q hs and prn panic attacks 07/29/2013 10/17/2013 Inactive Benicar 20 mg tablet RxNorm: 061712 1 Tablet(s) PO daily 07/26/2013 08/09/2013 Inactive amlodipine 10 mg tablet RxNorm: 469251 1 Tablet(s) PO QAM 07/19/2013 08/29/2013 Inactive cyclobenzaprine 5 mg tablet RxNorm: 457592 1 Tablet(s) PO TID CO N one pill every 8 hours as needed for muscle spasms. 07/19/2013 03/31/2014 Inactive Kenalog 40 mg/mL Sylvia p for Injection RxNorm: 8294955 1 Milliliter(s) Inj 06/30/2013 06/30/2013 In active prednisone 10 mg tab lets in a dose pack RxNorm: 038012 1 Tablet(s) PO as doc tor directed take steroid taper as directed on box 06/30/2013 07/09/2013 Inactive disp ense one PACK meclizine 25 mg tablet RxNorm: 384867 1 Tablet(s) PO Q6 PRN 1/2 - 1 pill every 6 hours as needed for vertigo 06/30/2013 08/10/2013 Inactive metoprolol tartrate 100 mg tablet RxNorm: 212829 1.5 Tablet(s) PO BID 06/30/2013 08/23/2013 In active metoprolol tartrate 100 mg tablet RxNorm: 241259 1 Tablet(s) PO BID 06/24/2013 06/29/2013 Inactive metoprolol tartrate 100 mg tablet RxNorm: 243832 1 Tablet(s) PO daily 06/17/2013 06/23/2013 In active metoprolol tartrate 100 mg tablet RxNorm: 892193 1 Tablet(s) PO daily 06/17/2013 06/16/2013 In active Toprol XL 100 mg tab let,extended release RxNorm: 620469 Tablet(s) PO TAKE ONE AND ONE- HALF TABLET BY MOUTH EVERY MORNING AND ONE TABLET IN THE EVENING 05/05/2013 06/22/2013 In active alprazolam 0.5 mg ta blet RxNorm: 500289 1 Tablet(s) PO as dir ected q hs and prn panic attacks 04/06/2013 07/28/2013 Inactive doxazosin 4 mg tablet RxNorm: 264958 Tablet(s) PO TAKE ONE TABLET BY MOUTH EV KANE DAY 04/01/2013 09/20/2013 Inactive Toprol XL 100 mg tab let,extended release RxNorm: 010054 Tablet(s) PO TAKE ONE AND ONE- HALF TABLET BY MOUTH EVERY MORNING AND ONE TABLET IN THE EVENING 12/25/2012 05/04/2013 In active Lasix 20 mg tablet RxNorm: 472071 1 Tablet(s) PO QDAY PRN Take 1 tab daily x 3 days then as needed 12/02/2012 04/10/2014 Inactive potassium chloride E R 20 mEq tablet,extended release(part/cryst) RxNorm: 770674 1 Tablet(s) PO PRN 12/02/2012 10/04/2013 Inactive prn swelling alprazolam 0.5 mg ta blet RxNorm: 584464 1 Tablet(s) PO as dir ected q hs and prn panic attacks 12/01/2012 04/05/2013 Inactive amlodipine 10 mg tablet RxNorm: 849576 1/2 Tablet(s) PO QAM 12/01/2012 07/18/2013 Inactive fluconazole 150 mg t ablet RxNorm: 287020 1 Tablet(s) PO daily 11/16/2012 11/20/2012 Inactive fluconazole 150 mg t ablet RxNorm: 648337 1 Tablet(s) PO daily 11/16/2012 11/15/2012 Inactive Nexium 40 mg capsule ,delayed release RxNorm: 405288 1 Capsule(s) PO daily 10/23/2012 11/16/2013 In active acyclovir 400 mg tablet RxNorm: 089510 1 Tablet(s) PO TID 10/19/2012 10/28/2012 Inactive chlordiazepoxide-cli dinium 5 mg-2.5 mg capsule RxNorm: 051907 1 Capsule(s) PO TID P RN 2012 12/22/2013 Inactive Voltaren 1 % Topical Gel RxNorm: 816864 4 Gram(s) TOP QID pt is to use 2 grams to each hand and 4 grams to knees. 08/18/2012 04/10/2014 Inactive doxazosin 4 mg tablet RxNorm: 751091 1 Tablet(s) PO QAM 08/18/2012 10/16/2012 Inactive atorvastatin 20 mg t ablet RxNorm: 951856 1 Tablet(s) PO HS 08/12/2012 08/11/2012 Inactive may have #90 x3 infection atorvastatin 20 mg t ablet RxNorm: 758793 1 Tablet(s) PO HS 08/12/2012 09/05/2013 Inactive may have #90 x3 infection doxazosin 4 mg tablet RxNorm: 771761 1 Tablet(s) PO daily 08/11/2012 08/17/2012 Inactive clonidine 0.1 mg/24 hr Weekly Transderm Patch RxNorm: 511110 1 Patch TD QW 08/04/2012 08/10/2012 In active Influenza Virus Vacc ine 0.5 mL RxNorm: IM 08/04/2012 08/04/2012 Inactive cyclobenzaprine 5 mg tablet RxNorm: 946943 1 Tablet(s) PO TID CO N one pill every 8 hours as needed for muscle spasms. 07/13/2012 11/09/2012 Inactive cyclobenzaprine 5 mg tablet RxNorm: 791813 1 Tablet(s) PO TID CO N one pill every 8 hours as needed for muscle spasms. 07/09/2012 07/12/2012 Inactive gabapentin 100 mg ca psule RxNorm: 499218 1 Capsule(s) PO TID 07/01/2012 12/01/2012 Inactive atorvastatin 20 mg t ablet RxNorm: 930543 1/2 Tablet(s) PO daily 07/01/2012 08/11/2012 Inactive may of day supply if cheaper Toprol XL 100 mg tab let,extended release RxNorm: 032455 Tablet(s) PO BID 11/2 in am and 1 in evening 07/01/2012 06/16/2013 Inactive 1 1/2 q am 1 in [place] alprazolam 0.5 mg ta blet RxNorm: 236346 1 Tablet(s) PO as dir ected q hs and prn panic attacks 06/24/2012 11/30/2012 Inactive amlodipine 10 mg tablet RxNorm: 219935 1 Tablet(s) PO QAM 06/19/2012 11/30/2012 Inactive benazepril 20 mg tablet RxNorm: 613337 1 Tablet(s) PO daily 06/19/2012 06/13/2013 Inactive one daily at noon Toprol XL 100 mg tab let,extended release RxNorm: 875222 Tablet(s) PO BID 06/19/2012 06/30/2012 In active 1 1/2 q am 1 in [place] Toprol XL 100 mg tab let,extended release RxNorm: 511161 1 1/2 Tablet(s) PO BI D 04/27/2012 06/18/2012 In active 90 or 30 day supply, whatever ins will a llow Lotrel 10 mg-20 mg Cap RxNorm: 482662 1 Capsule(s) PO daily 04/20/2012 08/04/2012 Inactive estradiol 0.5 mg Tab RxNorm: 624102 1 Tablet(s) PO BID 04/20/2012 12/02/2012 Inactive Toprol XL 100 mg 24 hr Tab RxNorm: 430723 1 1/2 Tablet(s) PO BID 04/14/2012 04/26/2012 Inactive Toprol XL 100 mg 24 hr Tab RxNorm: 258417 Tablet(s) PO daily 03/31/2012 04/13/2012 Inactive new directions: one q am 1/2 every evepl ease put on file until she needs filled Lipitor 10 mg tablet RxNorm: 722484 1 Tablet(s) PO daily 03/31/2012 12/02/2012 Inactive march of day supply if cheaper Toprol XL 100 mg 24 hr Tab RxNorm: 929205 1 Tablet(s) PO daily 03/11/2012 03/30/2012 Inactive Boniva 150 mg Tab RxNorm: 058273 1 Tablet(s) PO weekly 02/19/2012 12/02/2012 Inactive Detrol LA 4 mg capsu le,extended release RxNorm: 581710 1 Capsule(s) PO daily 02/19/2012 03/12/2016 In active doxycycline hyclate 100 mg Tab RxNorm: 7279313 1 Tablet(s) PO BID 01/23/2012 02/25/2012 Inactive Rocephin 500 mg Solu tion for Injection RxNorm: 6011847 1 Milliliter(s) Inj 01/23/2012 01/23/2012 In active Kenalog 40 mg/mL Sylvia p for Injection RxNorm: 0267404 1 Milliliter(s) Inj 01/23/2012 01/23/2012 In active cyclobenzaprine 5 mg tablet RxNorm: 095924 1 Tablet(s) PO TID CO N one pill every 8 hours as needed for muscle spasms. 12/20/2011 04/17/2012 Inactive clonidine 0.1 mg Tab RxNorm: 665316 1 Tablet(s) PO BID 12/20/2011 02/25/2012 Inactive Vitamin D3 5,000 uni t tablet RxNorm: 564691 1 Tablet(s) PO daily No Start Date Active Nexium 24HR 22.3 mg capsule,delayed release RxNorm: 240201 1 Capsule(s) PO daily as needed No Start Date Active Fish Oil 360 mg-1,20 0 mg capsule,delayed release RxNorm: 1 Capsule(s) PO daily No Start Date Active Lotrel 10 mg-20 mg Cap RxNorm: 189880 1 Capsule(s) PO daily No Start Date 02/24/2012 Inactive benazepril 20 mg tablet RxNorm: 289920 1 Tablet(s) PO No Start Date 06/18/2012 Inactive one daily at noon Vimovo 500 mg-20 mg multiphase, immed & delay rel Tab RxNorm: 282410 1 Tablet(s) PO BID No Start Date 12/01/2012 Inactive B12 1000 mcg RxNorm: 2 IM daily No Start Date 03/12/2016 Inactive Fish Oil 1,000 mg ca psule RxNorm: 1 Capsule(s) PO BID No Start Date 04/12/2014 Inactive Benicar 40 mg tablet RxNorm: 067726 1 Tablet(s) PO daily No Start Date 10/24/2013 Inactive Carafate 1 gram tablet RxNorm: 684181 Oral No Start Date 12/15/2013 Inactive Vitamin B-12 1,000 m cg tablet RxNorm: 169418 1 Tablet(s) PO daily No Start Date 03/12/2016 Inactive amlodipine 10 mg tablet RxNorm: 941958 1 Tablet(s) PO daily No Start Date 06/18/2012 Inactive Phenergan VC-Codeine 6.25 mg-5 mg-10 mg/5 mL Syrup RxNorm: 911411 5-10 Milliliter(s) PO Q6 PRN No Start Date 04/10/2014 Inactive Celebrex 200 mg capsule RxNorm: 815470 1 Capsule(s) PO daily No Start Date 10/08/2015 Inactive Percocet 5 mg-325 mg tablet RxNorm: 9884432 1-2 Tablet(s) PO Q6 PRN No Start Date 06/16/2014 Inactive Exforge 10 mg-320 mg Tab RxNorm: 608895 1 Tablet(s) PO daily sample No Start Date 05/20/2012 Inactive Lipitor 10 mg Tab RxNorm: 372209 1 Tablet(s) PO daily No Start Date 03/30/2012 Inactive tramadol 50 mg tablet RxNorm: 531568 1-2 Tablet(s) PO Q8 as needed No Start Date 04/24/2016 Inactive Lasix 20 mg tablet RxNorm: 795279 1 Tablet(s) PO QDAY PRN Take 1 tab daily x 3 days then as needed No Start Date 12/01/2012 Inactive potassium chloride E R 20 mEq tablet,extended release(part/cryst) RxNorm: 8260645 1 Tablet(s) PO QDAY PRN No Start Ochoa e 12/01/2012 Inactive Toprol XL 100 mg 24 hr Tab RxNorm: 098783 1 Tablet(s) PO daily No Start Date 03/10/2012 Inactive MIDRIN 325 mg-65 mg- 100 mg Cap RxNorm: 586895 1 Capsule(s) PO PRN No Start Date 05/20/2012 Inactive Nexium 40 mg capsule ,delayed release RxNorm: 975255 1 Capsule(s) PO daily No Start Date 10/22/2012 Inactive Detrol LA 4 mg 24 hr Cap RxNorm: 861707 Oral No S tart Date 02/18/2012 Inactive Boniva 150 mg Tab RxNorm: 853296 Oral No Start Date 02/18/2012 Inactive Flexeril 10 mg tablet RxNorm: 842573 1 Tablet(s) PO Q8 PRN No Start Date 03/31/2014 Inactive clidinium bromide Oral RxNorm: Oral No Start Date 12/01/2012 Inactive alprazolam 0.5 mg ta blet RxNorm: 358232 1 Tablet(s) PO as dir ected q hs and prn panic attacks No Start Date 06/23/2012 Inactive chlordiazepoxide Oral RxNorm: Oral No Start Date 12/01/2012 Inactive metoprolol tartrate 100 mg tablet RxNorm: 245430 Tablet(s) PO TAKE ONE AND ONE-HALF (1 & 1/2) TABLET BY MOUTH EVERY MORNING AND TAKE TWO TABLETS BY MOUTH EVERY EVENING No Start Date 08/03/2014 Inactive furosemide 20 mg tablet RxNorm: 158987 1 Tablet(s) PO daily No Start Date 01/29/2016 Inactive Calcium Oral RxNorm: Oral No Start Date 03/12 Inactive Nasonex 50 mcg/actua tion [place] RxNorm: 130711 1 [place] NASAL BID No Start Date 04/10/2014 Inactive Medication Administered Medication Codes Instruc tions Start Date Status Kenalog 40 mg/mL suspension for injection RxNorm: 4392261 Milliliter 04/24/2018 No longer Active Kenalog 40 mg/mL suspension for injection RxNorm: 4612923 Milliliter 06/23/2017 No longer Active Kenalog 40 mg/mL suspension for injection RxNorm: 3516378 2Milliliter 03/21/2017 N o longer Active Kenalog 40 mg/mL suspension for injection RxNorm: 7586616 1Milliliter 04/04/2016 N o longer Active Kenalog 40 mg/mL suspension for injection RxNorm: 7438738 Milliliter 06/12/2015 No longer Active Kenalog 40 mg/mL suspension for injection RxNorm: 2631640 Milliliter 05/15/2015 No longer Active Kenalog 40 mg/mL suspension for injection RxNorm: 1091157 Milliliter 02/02/2014 No longer Active Kenalog 40 mg/mL Susp for Injection RxNorm: 3218040 1Milliliter 06/30/2013 N o longer Active Influenza Virus Vaccine 0.5 mL RxNorm: 08/04/2012 No longer Active Rocephin 500 mg Solution for Injection RxNorm: 9995636 1Milliliter 01/23/2012 N o longer Active Kenalog 40 mg/mL Susp for Injection RxNorm: 7426729 1Milliliter 01/23/2012 N o longer Active Immunizations [...] completed Assessments Condition Codes Effectiv e Dates Cough ICD-10: R05 ICD-9: 786.2 01/21/2019 Acute upper respiratory infection, unspecified ICD-10: J06.9 ICD-9: 465.9 01/21/2019 Essential (primary) hypertension ICD -10: I10 ICD-9: 401.1 10/14/2018 Mixed hyperlipidemia ICD-10: E78.2 ICD-9: 272.2 10/14/2018 [...] Visit Reason For Visit Effective Dates Notes cough 01/21/2019 hypertension 10/14/2018 fatigue 09/22/2018 leg [...] Ord2 RDW 14.8 % 06/05/2015 Comp Metabolic Oxv049 NA 138 mEq/L 06/05/2015 Comp Metabolic Idc519 K 4.3 mEq/L 06/05/2015 Comp Metabolic Auf794 CL 100 mEq/L 06/05/2015 Comp Metabolic Ayx299 CO2 29.0 mEq/L 06/05/2015 Comp Metabolic Eih343 AN ION GAP 13 06/05/2015 Comp Metabolic Zdj691 GL UCOSE 85 mg/dL 06/05/2015 Comp Metabolic Jom802 Cr eat 0.7 mg/dL 06/05/2015 Comp Metabolic Thx535 eG FR 94 ml/min/1.73m2 06/05 Comp Metabolic Jfd231 BUN 16 mg/dL 06/05/2015 Comp Metabolic Rdp422 B/ C Ratio 24.2 Ratio 06/05/2015 Comp Metabolic Puc887 CA LCIUM 9.5 mg/dL 06/05/2015 Comp Metabolic Sjg342 AL K PHOS 69 U/L 06/05/2015 Comp Metabolic Nqa740 T(SGOT) 22 U/L 06/05/2015 Comp Metabolic Nyf599 AL T(SGPT) 26 U/L 06/05/2015 Comp Metabolic Llj768 BI LI T 0.5 mg/dL 06/05/2015 Comp Metabolic Emb209 AL BUMIN 4.2 g/dL 06/05/2015 Comp Metabolic Xxe076 TP RO 6.1 g/dL 06/05/2015 Comp Metabolic Wti351 GL OB 1.9 g/dL 06/05/2015 Comp Metabolic One852 A/ G Ratio 2.2 Ratio 06/05/2015 Comp Metabolic Rfq353 Os mo 276 mOsmo 06/05/2015 Tsh Ord6 hTSH II 1.99 uIU/mL 06/05/2015 Lipid Ord30 CHOL 171 mg/dL 06/05/2015 Lipid Ord30 HDL 55.0 mg/dl 06/05/2015 Lipid Ord30 TRIG 178 mg/dL 06/05/2015 Lipid Ord30 LDL 80 mg/dL 06/05/2015 Lipid Ord30 C/HDL 3.1 Ratio 06/05/2015 %Hba1C Jvs613 % HbA1c 60897-4 5.7 % 06/05/2015 %Hba1C Kkf009 Gluc Ave 117 mg/dL 06/05/2015 A1C HPLC 5013814 A1C HPLC 55668-8 5.6 % 07/15/2014 GFR CALC 3150058 GFR AA >60 ML/MIN 07/15/2014 GFR CALC 2414420 GFR NON -AA >60 ML/MIN 07/15/2014 CHEM 14 3747211 AST 21 U/L 07/15/2014 CHEM 14 7702157 ALT 23 IU/L 07/15/2014 CHEM 14 0607563 BUN 14 MG/DL 07/15/2014 CHEM 14 6594617 ALBUMIN 4.2 GM/DL 07/15/2014 CHEM 14 8706671 CHLORIDE 104 MMOL/L 07/15/2014 CHEM 14 0204883 BILI TOT 0.4 MG/DL 07/15/2014 CHEM 14 4988516 ALK PHOS 88 U/L 07/15/2014 CHEM 14 8937817 SODIUM 140 MMOL/L 07/15/2014 CHEM 14 2886086 CREATINI NE 0.63 MG/DL 07/15/2014 CHEM 14 4139903 CALCIUM 9.4 MG/DL 07/15/2014 CHEM 14 0188691 POTASSIUM 4.0 MMOL/L 07/15/2014 CHEM 14 8672455 PROT TOT 6.4 GM/DL 07/15/2014 CHEM 14 0784182 GLUCOSE 90 MG/DL 07/15/2014 CHEM 14 1681948 BICARB 30 MMOL/L 07/15/2014 CHEM 14 0752763 ANION GAP 6 MEQ/L 07/15/2014 A1C HPLC 1978985 A1C HPLC 55096-8 6.0 % 04/13/2014 TSH 2549315 TSH 1.875 uIU/ML 04/12/2014 CHEM 14 3452499 AST 17 U/L 04/12/2014 CHEM 14 9561612 ALT 20 IU/L 04/12/2014 CHEM 14 9147666 BUN 14 MG/DL 04/12/2014 CHEM 14 8697390 ALBUMIN 4.2 GM/DL 04/12/2014 CHEM 14 6853099 CHLORIDE 104 MMOL/L 04/12/2014 CHEM 14 4421817 BILI TOT 0.3 MG/DL 04/12/2014 CHEM 14 4231172 ALK PHOS 80 U/L 04/12/2014 CHEM 14 1631789 SODIUM 141 MMOL/L 04/12/2014 CHEM 14 8837834 CREATINI NE 0.62 MG/DL 04/12/2014 CHEM 14 5703214 CALCIUM 9.4 MG/DL 04/12/2014 CHEM 14 5311428 POTASSIUM 3.5 MMOL/L 04/12/2014 CHEM 14 9612878 PROT TOT 6.5 GM/DL 04/12/2014 CHEM 14 3580826 GLUCOSE 89 MG/DL 04/12/2014 CHEM 14 6522035 BICARB 29 MMOL/L 04/12/2014 CHEM 14 5484911 ANION GAP 8 MEQ/L 04/12/2014 LIPID GRP HDL TE ST 59 MG/DL 04/12/2014 LIPID GRP TRIG 177 MG/DL 04/12/2014 LIPID GRP TEST L DL 106 MG/DL 04/12/2014 LIPID GRP CHOL 200 MG/DL 04/12/2014 LIPID GRP RCHOL/ HDL 3.39 RATIO 04/12/2014 CBC 7616623 WBC 4.6 10e9/L 04/12/2014 CBC 4044228 RBC 4.52 10e12/L 04/12/2014 CBC 2885844 HGB 13.1 g/dL 04/12/2014 CBC 5919606 HCT DET 39.2 % 04/12/2014 CBC 6745747 MCV 86.7 fL 04/12/2014 CBC 6388928 MCH 29.0 pg 04/12/2014 CBC 3764938 MCHC 33.4 g/dL 04/12/2014 CBC 8811131 PLT 233 10e9/L 04/12/2014 CBC 9167220 MPV 9.8 fL 04/12/2014 CBC 8143183 AN % 59.5 % 04/12/2014 CBC 7262437 LY % 28.6 % 04/12/2014 CBC 4687869 MON % 10.0 % 04/12/2014 CBC 9653809 EOS % 1.5 % 04/12/2014 CBC 4944630 BASO % 0.4 % 04/12/2014 CBC 8390233 RDW 13.7 % 04/12/2014 CBC 7944943 ABS AN 2.74 10e9/L 04/12/2014 CBC 3960799 ABS LYMPH 1.32 10e9/L 04/12/2014 CBC 0478870 ABS MONO 0.46 10e9/L 04/12/2014 CBC 9573714 ABS EOS 0.07 10e9/L 04/12/2014 CBC 7536970 ABS BASO 0.02 10e9/L 04/12/2014 CBC 3130008 RDW-SD 42.6 fL 04/12/2014 GFR CALC 4992365 GFR AA >60 ML/MIN 04/12/2014 GFR CALC 9167047 GFR NON -AA >60 ML/MIN 04/12/2014 LIPID GRP HDL TE ST 57 MG/DL 08/24/2013 LIPID GRP TRIG 183 MG/DL 08/24/2013 LIPID GRP 5362651 TEST L DL 64 MG/DL 08/24/2013 LIPID GRP 1647825 CHOL 158 MG/DL 08/24/2013 LIPID GRP RCHOL/ HDL 2.77 RATIO 08/24/2013 GFR CALC 6409303 GFR AA >60 ML/MIN 08/24/2013 GFR CALC 0446558 GFR NON -AA >60 ML/MIN 08/24/2013 CHEM 14 5776703 AST 13 U/L 08/24/2013 CHEM 14 7492366 ALT 15 IU/L 08/24/2013 CHEM 14 8900615 BUN 14 MG/DL 08/24/2013 CHEM 14 9464989 ALBUMIN 4.3 GM/DL 08/24/2013 CHEM 14 8811865 CHLORIDE 106 MMOL/L 08/24/2013 CHEM 14 2868897 BILI TOT 0.3 MG/DL 08/24/2013 CHEM 14 9330019 ALK PHOS 75 U/L 08/24/2013 CHEM 14 8377508 SODIUM 141 MMOL/L 08/24/2013 CHEM 14 0120981 CREATINI NE 0.56 MG/DL 08/24/2013 CHEM 14 1008235 CALCIUM 9.1 MG/DL 08/24/2013 CHEM 14 0488194 POTASSIUM 4.2 MMOL/L 08/24/2013 CHEM 14 3986464 PROT TOT 6.0 GM/DL 08/24/2013 CHEM 14 4005844 GLUCOSE 83 MG/DL 08/24/2013 CHEM 14 3576652 BICARB 28 MMOL/L 08/24/2013 CHEM 14 2360509 ANION GAP 7 MEQ/L 08/24/2013 CBC 9499964 WBC 4.7 10e9/L 08/24/2013 CBC 6224786 RBC 4.33 10e12/L 08/24/2013 CBC 1180099 HGB 12.5 g/dL 08/24/2013 CBC 8888386 HCT DET 38.2 % 08/24/2013 CBC 8069141 MCV 88.2 fL 08/24/2013 CBC 4035619 MCH 28.9 pg 08/24/2013 CBC 9122222 MCHC 32.7 g/dL 08/24/2013 CBC 7184842 PLT 218 10e9/L 08/24/2013 CBC 8366489 MPV 10.4 fL 08/24/2013 CBC 4254719 AN % 61.9 % 08/24/2013 CBC 0745104 LY % 24.8 % 08/24/2013 CBC 0787003 MON % 10.3 % 08/24/2013 CBC 2047599 EOS % 2.1 % 08/24/2013 CBC 6728713 BASO % 0.9 % 08/24/2013 CBC 1120235 RDW 14.6 % 08/24/2013 CBC 0855805 ABS AN 2.91 10e9/L 08/24/2013 CBC 3761251 ABS LYMPH 1.17 10e9/L 08/24/2013 CBC 6202652 ABS MONO 0.48 10e9/L 08/24/2013 CBC 3893190 ABS EOS 0.10 10e9/L 08/24/2013 CBC 1686425 ABS BASO 0.04 10e9/L 08/24/2013 CBC 5312534 RDW-SD 46.7 fL 08/24/2013 TSH 8009900 TSH 1.208 uIU/ML 08/24/2013 Review of Systems System Result Effective Dates Constitutional recent illness 01/21/2019 Constitutional No anorexia [...] No alteration of consciousness 10/09/2015 Psychiatric anxiety 12/0 05/2015 Constitutional No recent illness 06/12/2015 Constitutional [...] dentition 01/21/2019 None Full Exam - General 1995 [...] sounds 08/24/2013 None Full Exam - General 1995 Cardiovascular auscultation of heart Overall: no murmurs 08/24/2013 None Full Exam - General 1995 Psychiatric [...] benign 12/01/2012 None Full Exam - General 1995 Musculoskeletal lower extremity Inspection - knee: presence [...] happy 08/18/2012 None Full Exam - General 1995 Cardiovascular [...] clear 01/23/2012 None Full Exam - General 1995 Respiratory auscultation Diffuse: expiratory wheezes 01/23/2012 None Full Exam - General 1995 Respiratory respiratory effort/rhythm Overall: no retractions 01/23/2012 None Full Exam - General 1995 Respiratory respiratory effort/rhythm Overall: normal rate 01/23/2012 [...] - General 1995 Lymphatic neck nodes Overall: posterior cervical chain [...] exam 12/20/2011 None Full Exam - General 1995 Ears/Nose/Throat otoscopic exam External auditory canal: complete cerumen impaction 12/20/2011 None Full Exam - General 1995 Ears/Nose/Throat otoscopic exam Tympanic membrane: a normal exam 12/20/2011 None Full Exam - General 1995 Ears/Nose/Throat otoscopic exam Tympanic membrane: not visualized 12/20/2011 None Full Exam - General 1995 Ears/Nose/Throat oral cavity/pharynx/larynx Overall: oropharyngeal mucosa clear 12/20/2011 None Full Exam - General 1994 Ears/Nose/Throat oral cavity/pharynx/larynx Overall: no masses 12/20/2011 None Full Exam - General 1995 [...] Formatting Model/CDA Sections, Assigned to/Jen Cota CPT-4: [id number] 07/28/2018 THER/PROPH/DIAG INJ SC/IM CPT-4: 22377 04/24/2018 TRIAMCINOLONE ACET I [place] NOS CPT-4: J3301 04/24/2018 PPPS, SUBSEQ VISIT CPT- 4: G0439 02/03/2018 TRIAMCINOLONE ACET I [place] NOS CPT-4: J3301 06/23/2017 TRIAMCINOLONE ACET I [place] NOS CPT-4: J3301 03/21/2017 PPPS, SUBSEQ VISIT CPT- 4: G0439 01/22/2017 ADMIN PNEUMOCOCCAL V ACCINE SNOMED CT: [id number] CPT-4: G0009 09/16/2016 Pneumococcal Polysac charide Vaccine, 23-Valent, Ad CPT-4: 37722 09/16/2016 THER/PROPH/DIAG INJ SC/IM CPT-4: 42144 04/04/2016 TRIAMCINOLONE ACET I [place] NOS CPT-4: J3301 04/04/2016 ADMIN INFLUENZA VIRU S VAC CPT-4: G0008 07/28/2015 FLU VACC 4 XIMENA 3 YRS PLUS IM Formatting Model/CDA Sections, Assigned to/Jen Cota SNOMED CT: [id number] CPT-4: 39985Thaxstq 07/28/2015 TRIAMCINOLONE ACET I [place] NOS CPT-4: J3301 06/12/2015 TRIAMCINOLONE ACET I [place] NOS CPT-4: J3301 05/15/2015 ADMIN INFLUENZA VIRU S VAC CPT-4: G0008 07/19/2014 FLU VAC NO PRSV 4 VA L 3 YRS+ Assigned to/Jen Cota CPT-4: 62376Vkskkog 07/19/2014 TRIAMCINOLONE ACET I [place] NOS CPT-4: J3301 02/02/2014 ROUTINE VENIPUNCTURE CPT-4: 22839 08/24/2013 ADMIN INFLUENZA VIRU S VAC CPT-4: [...] CPT-4: J3301 01/23/2012 THER/PROPH/DIAG INJ SC/IM CPT-4: 52237 01/23/2012 REMOVE IMPACTED EAR WAX UNI CPT-4: 94668 01/02/2012 ROUTINE VENIPUNCTURE CPT-4: 29781 12/20/2011 Vital Signs Date Vital 01/21/2019 Blood Pressure 1: 144/70 Code: 8480-6 BMI: 34.0 Code: 49068-0 Heart Rate 1: 68 bpm Height: 5' SpO2: 97% Temperature: 36.5 (C ) / 97.7 (F) Weight: 177 lbs 10/14/2018 Blood Pressure 1: 150/72 Code: 8480-6 Heart Rate 1: 58 bpm Height: 5' SpO2: 98% Weight: 09/22/2018 Blood Pressure 1: 140/80 Code: 8480-6 BMI: 32.7 Code: 99290-9 Heart Rate 1: 55 bpm Height: 5' SpO2: 98% Weight: 170 lbs 08/17/2018 Blood Pressure 1: 140/76 Code: 8480-6 BMI: 33.0 Code: 28862-8 Heart Rate 1: 60 bpm Height: 5' SpO2: 99% Weight: 172 lbs 06/08/2018 Blood Pressure 1: 136/80 Code: 8480-6 BMI: 33.8 Code: 58556-3 Heart Rate 1: 65 bpm Height: 5' SpO2: 98% Weight: 176 lbs 05/04/2018 Blood Pressure 1: 134/80 Code: 8480-6 BMI: 35.9 Code: 08916-7 Heart Rate 1: 72 bpm Height: 5' SpO2: 94% Weight: 187 lbs 02/04/2018 Blood Pressure 1: 144/76 Code: 8480-6 BMI: 35.0 Code: 09033-9 Heart Rate 1: 64 bpm Height: 5' SpO2: 98% Weight: 182 lbs 02/03/2018 Blood Pressure 1: 136/62 Code: 8480-6 BMI: 35.0 Code: 06500-9 Heart Rate 1: 57 bpm Height: 5' SpO2: 98% Waist Measure (cm): 94 cm Weight: 182 lbs 09/17/2017 Blood Pressure 1: 150/82 Code: 8480-6 BMI: 33.6 Code: 22446-6 Heart Rate 1: 58 bpm Height: 5' SpO2: 98% Weight: 175 lbs 06/23/2017 Blood Pressure 1: 124/66 Code: 8480-6 Heart Rate 1: 65 bpm Height: 5' SpO2: 97% Weight: 05/13/2017 Blood Pressure 1: 128/80 Code: 8480-6 BMI: 32.8 Code: 25384-6 Heart Rate 1: 76 bpm Height: 5' SpO2: 95% Weight: 171 lbs 03/21/2017 Blood Pressure 1: 152/88 Code: 8480-6 Heart Rate 1: 70 bpm Height: SpO2: 98% Weight: 03/19/2017 Blood Pressure 1: 132/64 Code: 8480-6 BMI: 33.0 Code: 70807-1 Heart Rate 1: 64 bpm Height: 5' SpO2: 96% Weight: 172 lbs 01/22/2017 Blood Pressure 1: 120/68 Code: 8480-6 BMI: 33.4 Code: 45192-9 Heart Rate 1: 68 bpm Height: 5' SpO2: 96% Weight: 174 lbs 01/14/2017 Blood Pressure 1: 138/80 Code: 8480-6 BMI: 33.4 Code: 67117-6 Heart Rate 1: 69 bpm Height: 5' SpO2: 98% Weight: 174 lbs 09/23/2016 Blood Pressure 1: 138/70 Code: 8480-6 BMI: 33.6 Code: 00253-0 Heart Rate 1: 68 bpm Height: 5' SpO2: 98% Temperature: 36.4 (C ) / 97.5 (F) Weight: 175 lbs 09/16/2016 Blood Pressure 1: 124/74 Code: 8480-6 BMI: 33.6 Code: 68246-5 Heart Rate 1: 64 bpm Height: 5' SpO2: 97% Weight: 175 lbs 06/25/2016 Weigh t: 174 lbs 06/17/2016 Blood Pressure 1: 128/80 Code: 8480-6 BMI: 34.0 Code: 59726-1 Heart Rate 1: 76 bpm Height: 5' SpO2: 95% Weight: 177 lbs 04/03/2016 Blood Pressure 1: 138/72 Code: 8480-6 BMI: 34.2 Code: 61449-4 Heart Rate 1: 63 bpm Height: 5' SpO2: 96% Weight: 178 lbs 03/13/2016 Blood Pressure 1: 128/72 Code: 8480-6 BMI: 35.3 Code: 20643-7 Heart Rate 1: 71 bpm Height: 5' SpO2: 97% Weight: 184 lbs 01/30/2016 Blood Pressure 1: 134/72 Code: 8480-6 BMI: 35.2 Code: 99099-7 Heart Rate 1: 71 bpm Height: 5' SpO2: 96% Weight: 183 lbs 12/21/2015 Blood Pressure 1: 148/90 Code: 8480-6 BMI: 34.6 Code: 11578-5 Heart Rate 1: 89 bpm Height: 5' SpO2: 96% Weight: 180 lbs 10/09/2015 Blood Pressure 1: 124/76 Code: 8480-6 BMI: 34.6 Code: 03214-2 Heart Rate 1: 88 bpm Height: 5' SpO2: 96% Weight: 180 lbs 06/12/2015 Blood Pressure 1: 148/74 Code: 8480-6 BMI: 33.4 Code: 85015-1 Heart Rate 1: 70 bpm Height: 5' SpO2: 96% Weight: 174 lbs 06/05/2015 Blood Pressure 1: 142/82 Code: 8480-6 BMI: 33.2 Code: 91225-6 Heart Rate 1: 72 bpm Height: 5' Weight: 173 lbs 05/15/2015 Blood Pressure 1: 118/80 Code: 8480-6 BMI: 33.6 Code: 08984-9 Heart Rate 1: 82 bpm Height: 5' Weight: 175 lbs 02/06/2015 Blood Pressure 1: 122/76 Code: 8480-6 BMI: 34.6 Code: 03710-6 Heart Rate 1: 58 bpm Height: 5' Weight: 180 lbs 01/10/2015 Blood Pressure 1: 158/90 Code: 8480-6 Blood Pressure 2: 152/90 Code: 8480-6 BMI: 34.6 Code: 56410-0 Heart Rate 1: 68 bpm Height: 5' Weight: 180 lbs 07/19/2014 Blood Pressure 1: 142/78 Code: 8480-6 BMI: 33.6 Code: 57333-5 Heart Rate 1: 56 bpm Height: 5' Weight: 175 lbs 06/17/2014 Blood Pressure 1: 128/86 Code: 8480-6 Heart Rate 1: 66 bpm SpO2: 98% Weight: 172 lbs 04/19/2014 Blood Pressure 1: 152/82 Code: 8480-6 BMI: 32.5 Code: 58693-0 Heart Rate 1: 60 bpm Height: 5' Weight: 169 lbs 04/11/2014 Blood Pressure 1: 120/80 Code: 8480-6 BMI: 33.4 Code: 45859-7 Heart Rate 1: 64 bpm Height: 5' Weight: 174 lbs 03/10/2014 Blood Pressure 1: 136/64 Code: 8480-6 BMI: 32.7 Code: 24350-9 Heart Rate 1: 76 bpm Height: 5' Weight: 170 lbs 02/02/2014 Blood Pressure 1: 160/76 Code: 8480-6 BMI: 32.7 Code: 31947-4 Heart Rate 1: 64 bpm Height: 5' Weight: 170 lbs 10/25/2013 Blood Pressure 1: 164/82 Code: 8480-6 BMI: 31.9 Code: 09330-0 Heart Rate 1: 60 bpm Height: 5' Weight: 166 lbs 08/24/2013 Blood Pressure 1: 138/88 Code: 8480-6 Heart Rate 1: 80 bpm Weight: 07/26/2013 Blood Pressure 1: 154/70 Code: 8480-6 Heart Rate 1: 72 bpm Weight: 162 lbs 06/30/2013 Blood Pressure 1: 182/86 Code: 8480-6 Heart Rate 1: 80 bpm Weight: 06/24/2013 Blood Pressure 1: 148/68 Code: 8480-6 BMI: 31.3 Code: 94658-7 Heart Rate 1: 72 bpm Height: 5' [...] 1: 142/88 Code: 8480-6 BMI: 30.6 Code: 95327-4 Heart Rate 1: 64 bpm Height: 5' [...] 1: 180/96 Code: 8480-6 BMI: 30.5 Code: 80854-4 Heart Rate 1: 76 bpm Height: 5' Respiratory Rate: 16 bpm Weight: 159 lbs 02/19/2012 Blood Pressure 1: 150/70 Code: 8480-6 Blood Pressure 2: 160/78 Code: 8480-6 Heart Rate 1: 76 bpm Respiratory Rate: 16 bpm Weight: 158 lbs 01/23/2012 Blood Pressure 1: 140/84 Code: 8480-6 BMI: 30.3 Code: 68285-4 Heart Rate 1: 68 bpm Height: 5' Respiratory Rate: 16 bpm SpO2: 98% Temperature: 37.0 (C ) / 98.6 (F) Weight: 158 lbs 01/02/2012 Blood Pressure 1: 142/92 Code: 8480-6 BMI: 30.7 Code: 64430-5 Heart Rate 1: 72 bpm Height: 5' Respiratory Rate: 16 bpm Weight: 160 lbs 12/20/2011 Blood Pressure 1: 170/84 Code: 8480-6 BMI: 30.0 Code: 32273-1 Heart Rate 1: 70 bpm Height: 5' Respiratory Rate: 16 bpm Weight: 156 lbs Functional Status No Functional Status data History of Present Illness Symptom Name Status Resu lt Effective Date Notes Quality acute 01/21/2019 None Quality intermittent 01/21/2019 [...] 06/12/2015 None rash Location-Head/Neck on the right hindu 06/12/2015 None rash Location-Head/Neck on the right [...] both a nkles 12/01/2012 None hypertension Quality [facility] 12/01/2012 None hypertension Onset and [...] Encounters Encounter Performer Loca tion Codes Date ([id number]) [id number] EST. P ATIENT, LEVEL III Diagnosis: Cough[ICD10: R05] Diagnosis: Acute upper respiratory infection, unspecified[ICD10: J06.9] Kacy Varela MD, [facility] CPT-4: 99093 01/21/2019 ([id number]) [id number] EST. P ATIENT, LEVEL IV Diagnosis: Essential (primary) hypertension[ICD10: I10] Diagnosis: Mixed hyperlipidemia[ICD10: E78.2] Zoya Varela MD, [facility] CPT- 4: 94469 10/14/2018 ([id number]) [id number] EST. P ATIENT, LEVEL III Diagnosis: Essential (primary) hypertension[ICD10: I10] Diagnosis: Other specified cardiac arrhythmias[ICD10: I49.8] Zoya Varela MD, [facility] CPT-4: 98726 09/22/2018 ([id number]) 93210 EST. P ATIENT, LEVEL IV Diagnosis: Essential (primary) hypertension[ICD10: I10] Diagnosis: Allergic rhinitis due to pollen[ICD10: J30.1] Diagnosis: Sciatica, right side[ICD10: M54.31] Zoya Varela MD, [facility] CPT- 4: 79179 08/17/2018 ([id number]) 32627 EST. 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 P ATIENT, LEVEL III Diagnosis: Acute upper respiratory infection, unspecified[ICD10: J06.9] Kacy Varela MD, [facility] CPT-4: 42341 05/04/2018 ([id number]) 03362 EST. P ATIENT, LEVEL IV Diagnosis: Essential (primary) hypertension[ICD10: I10] Diagnosis: Type 2 diabetes mellitus without complications[ICD10: E11.9] Diagnosis: Mixed hyperlipidemia[ICD10: E78.2] Diagnosis: Localized edema[ICD10: R60.0] Zoya Varela MD, [facility] CPT-4: 48043 02/04/2018 ([id number]) 20163 EST. P ATIENT, LEVEL IV Diagnosis: Essential (primary) hypertension[ICD10: I10] Zoya Varela MD, [facility] CPT-4: 93028 09/17/2017 ([id number]) 49463 EST. P ATIENT, LEVEL III Diagnosis: Allergic contact dermatitis due to plants, except food[ICD10: L23.7] Kacy Varela MD, [facility] CPT-4: 77350 06/23/2017 ([id number]) 50020 EST. P ATIENT, LEVEL IV Diagnosis: Essential (primary) hypertension[ICD10: I10] Diagnosis: Mixed hyperlipidemia[ICD10: E78.2] Zoya Varela MD, [facility] CPT- 4: 33854 05/13/2017 ([id number]) 56801 EST. P ATIENT, LEVEL III Diagnosis: Allergic contact dermatitis due to plants, except food[ICD10: L23.7] Kacy Varela MD, [facility] CPT-4: 79961 03/21/2017 59083 EST. PATIENT, LEVEL III Diagnosis: Bitten or stung by nonvenomous insect and other nonvenomous arthropods, initial encounter[ICD10: W57.XXXA] Diagnosis: Cellulitis of left lower limb[ICD10: L03.116] Laura Varela MD, [facility] CPT-4: 76191 03/19/2017 ([id number]) 42891 EST. P ATIENT, LEVEL IV Diagnosis: Type 2 diabetes mellitus without complications[ICD10: E11.9] Diagnosis: Essential (primary) hypertension[ICD10: I10] Diagnosis: Other specified epidermal thickening[ICD10: L85.8] Zoya Varela MD, [facility] CPT-4: 51404 01/14/2017 93759 EST. PATIENT, LEVEL III Diagnosis: Glossodynia[ICD10: K14.6] Kacy Varela MD, [facility] CPT- 4: 35091 09/23/2016 ([id number]) 02993 EST. P ATIENT, LEVEL IV Diagnosis: Encounter for screening mammogram for malignant neoplasm of breast[ICD10: Z12.31] Diagnosis: Encounter for immunization[ICD10: Z23] Zoya Varela MD, [facility] CPT-4: 96375 09/16/2016 ([id number]) 46914 EST. P ATIENT, LEVEL III Diagnosis: Diseases of lips[ICD10: K13.0] Diagnosis: Allergic rhinitis due to pollen[ICD10: J30.1] Kacy Varela MD, [facility] CPT-4: 47025 06/25/2016 ([id number]) 45630 EST. P ATIENT, LEVEL III Diagnosis: Essential (primary) hypertension[ICD10: I10] Kacy Varela MD, [facility] CPT-4: 74079 06/17/2016 38631 EST. PATIENT, LEVEL IV Diagnosis: Other acute sinusitis[ICD10: J01.80] Diagnosis: Acute laryngopharyngitis[ICD10: J06.0] Diagnosis: Other allergic rhinitis[ICD10: J30.89] Laura Varela MD, [facility] CPT-4: 82795 04/03/2016 ([id number]) 04426 EST. P ATIENT, LEVEL IV Diagnosis: Essential (primary) hypertension[ICD10: I10] Diagnosis: Localized edema[ICD10: R60.0] Diagnosis: Polyneuropathy, unspecified[ICD10: G62.9] Zoya Varela MD, [facility] CPT-4: 04822 03/13/2016 ([id number]) 92093 EST. P ATIENT, LEVEL IV Diagnosis: Essential (primary) hypertension[ICD10: I10] Diagnosis: Localized edema[ICD10: R60.0] Diagnosis: Type 2 diabetes mellitus without complications[ICD10: E11.9] Zoya Varela MD, [facility] CPT-4: 86760 01/30/2016 62886 EST. PATIENT, LEVEL IV Diagnosis: Localized edema[ICD10: R60.0] Laura Varela MD, [facility] CPT-4: 13641 12/21/2015 ([id number]) 30724 EST. P ATIENT, LEVEL III Diagnosis: Essential (primary) hypertension[ICD10: I10] Diagnosis: Allergic rhinitis due to pollen[ICD10: J30.1] Diagnosis: Cervicalgia[ICD10: M54.2] Kacy Varela MD, [facility] CPT- 4: 58225 10/09/2015 46641 EST. PATIENT, LEVEL II Diagnosis: Contact dermatitis[ICD9: 692.9] Kacy Varela MD, [facility] CPT- 4: 53240 06/12/2015 ([id number]) 39584 EST. P ATIENT, LEVEL III Diagnosis: ESSENTIAL HYPERTENSION[ICD9: 401.9] Diagnosis: DIABETES TYPE II[ICD9: 250.00] Diagnosis: Anxiety[ICD9: 300.00] Kacy Varela MD, [facility] CPT-4: 44209 06/05/2015 ([id number]) 83661 EST. P ATIENT, LEVEL IV Diagnosis: Anxiety[ICD9: 300.00] Diagnosis: ALLERGIC RHINITIS[ICD9: 477.9] Diagnosis: ESOPHAGEAL REFLUX[ICD9: 530.81] Kacy Varela MD, [facility] CPT- 4: 12920 05/15/2015 ([id number]) 57142 EST. P ATIENT, LEVEL III Diagnosis: ESSENTIAL HYPERTENSION[ICD9: 401.9] Zoya Varela MD, [facility] CPT- 4: 72443 02/06/2015 ([id number]) 46217 EST. P ATIENT, LEVEL IV Diagnosis: ESSENTIAL HYPERTENSION[ICD9: 401.9] Diagnosis: EDEMA[ICD9: 782.3] Diagnosis: DIABETES TYPE II[ICD9: 250.00] Zoya Varela MD, [facility] CPT-4: 33649 01/10/2015 ([id number]) 49773 EST. P ATIENT, LEVEL IV Diagnosis: ESSENTIAL HYPERTENSION[ICD9: 401.9] Diagnosis: DIABETES TYPE II[ICD9: 250.00] Zoya Varela MD, [facility] CPT-4: 37494 07/19/2014 ([id number]) 72385 EST. P ATIENT, LEVEL III Diagnosis: Left ankle pain[ICD9: 719.47] Kacy Varela MD, [facility] CPT- 4: 88576 06/17/2014 ([id number]) 23064 EST. P ATIENT, LEVEL III Diagnosis: ESSENTIAL HYPERTENSION[ICD9: 401.9] Diagnosis: Elevated blood sugar[ICD9: 790.29] Zoya Varela MD, [facility] CPT- 4: 67482 04/19/2014 ([id number]) 71356 EST. P ATIENT, LEVEL IV Diagnosis: ESSENTIAL HYPERTENSION[SNOMED: 34442825] Diagnosis: ESOPHAGEAL REFLUX[ICD9: 530.81] Zoya Varela MD, [facility] CPT-4: 91889 04/11/2014 ([id number]) 49163 EST. P ATIENT, LEVEL IV Diagnosis: ALLERGIC RHINITIS[ICD9: 477.9] Diagnosis: Anxiety[ICD9: 300.00] Diagnosis: Dyspnea[ICD9: 786.09] Diagnosis: ESOPHAGEAL REFLUX[ICD9: 530.81] Kacy Varela MD, [facility] CPT- 4: 41996 03/10/2014 ([id number]) 74422 EST. P ATIENT, LEVEL III Diagnosis: ALLERGIC RHINITIS[ICD9: 477.9] Diagnosis: ESSENTIAL HYPERTENSION[SNOMED: 26744929] Kacy Varela MD, [facility] CPT-4: 37919 02/02/2014 ([id number]) 03983 EST. P ATIENT, LEVEL III Diagnosis: ESSENTIAL HYPERTENSION[SNOMED: 47813239] Diagnosis: Skin irritation[ICD9: 709.9] Zoya Varela MD, [facility] CPT-4: 31417 10/25/2013 ([id number]) 93148 EST. P ATIENT, LEVEL III Diagnosis: HYPERLIPIDEMIA[ICD9: 272.4] Diagnosis: ESSENTIAL HYPERTENSION[SNOMED: 98344853] Diagnosis: EDEMA[ICD9: 782.3] Diagnosis: Encounter for long-term (current) use of other medications[ICD9: V58.69] Zoya Varela MD, [facility] CPT-4: 02364 08/24/2013 ([id number]) 90705 EST. P ATIENT, LEVEL III Diagnosis: ESSENTIAL HYPERTENSION[SNOMED: 45710108] Zoya Varela MD, C CPT-4: 95010 07/26/2013 ([id number]) 66608 EST. P ATIENT, LEVEL III Diagnosis: ESSENTIAL HYPERTENSION[SNOMED: 48542828] Zoya Varela MD, C CPT-4: 61968 06/30/2013 ([id number]) 89707 EST. P ATIENT, LEVEL III Diagnosis: ESSENTIAL HYPERTENSION[SNOMED: 13206459] Zoya Vaerla MD, C CPT-4: 63773 06/24/2013 ([id number]) 77387 EST. P ATIENT, LEVEL IV Diagnosis: ESSENTIAL HYPERTENSION[SNOMED: 25203702] Diagnosis: Leg pain[ICD9: 729.5] Diagnosis: Leg swelling[ICD9: 729.81] Zoya Varela MD, [facility] CPT-4: 62017 12/01/2012 ([id number]) 93129 EST. P ATIENT, LEVEL III Diagnosis: Shingles[ICD9: 053.9] Zoya Varela MD, [facility] CPT-4: 81761 10/19/2012 ([id number]) 44182 EST. P ATIENT, LEVEL IV Diagnosis: EDEMA[ICD9: 782.3] Diagnosis: ESSENTIAL HYPERTENSION[SNOMED: 69188337] Zoya Varela MD, C CPT-4: 75503 10/07/2012 ([id number]) 57699 EST. P ATIENT, LEVEL IV Diagnosis: ESSENTIAL HYPERTENSION[SNOMED: 04182441] Diagnosis: EDEMA[ICD9: 782.3] Diagnosis: Irritable bowel disease[ICD9: 564.1] Zoya Varela MD, [facility] CPT-4: 21101 2012 ([id number]) 55773 EST. P ATIENT, LEVEL III Diagnosis: ESSENTIAL HYPERTENSION[SNOMED: 45293377] Zoya Varela MD, [facility] CPT-4: 67654 08/18/2012 ([id number]) 78102 EST. P ATIENT, LEVEL III Diagnosis: ESSENTIAL HYPERTENSION[SNOMED: 20721322] Zoya Varela MD, [facility] CPT-4: 85713 08/04/2012 ([id number]) 67022 EST. P ATIENT, LEVEL IV Diagnosis: ESSENTIAL HYPERTENSION[SNOMED: 90429016] Diagnosis: Lumbago[ICD9: 724.2] Diagnosis: HYPERLIPIDEMIA[ICD9: 272.4] Zoya Varela MD, [facility] CPT-4: 99346 07/01/2012 ([id number]) 68619 EST. P ATIENT, LEVEL III Diagnosis: ESSENTIAL HYPERTENSION[SNOMED: 70781572] Zoya Varela MD, [facility] CPT-4: 56464 05/20/2012 ([id number]) 26683 EST. P ATIENT, LEVEL IV Diagnosis: ESSENTIAL HYPERTENSION[SNOMED: 15086120] Diagnosis: Hot flash, menopausal[ICD9: 627.2] Zoya Varela MD, [facility] CPT- 4: 74372 04/20/2012 17647 EST. PATIENT, LEVEL IV Diagnosis: SPASM OF MUSCLE[ICD9: 728.85] Diagnosis: Back pain[ICD9: 724.5] Diagnosis: ESSENTIAL HYPERTENSION[SNOMED: 98263441] Zoya Varela MD, [facility] CPT-4: 54402 03/10/2012 ([id number]) 92046 EST. 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 P ATIENT, LEVEL III Diagnosis: ESSENTIAL HYPERTENSION[SNOMED: 86902440] Zoya Varela MD, [facility] CPT-4: 11476 02/19/2012 16498 EST. PATIENT, LEVEL IV Diagnosis: ESSENTIAL HYPERTENSION[SNOMED: 37303983] Diagnosis: Cough[ICD9: 786.2] Kacy Varela MD, [facility] CPT-4: 93141 01/23/2012 ([id number]) 84251 EST. P ATIENT, LEVEL IV Diagnosis: HYPERLIPIDEMIA[ICD9: 272.4] Diagnosis: ESSENTIAL HYPERTENSION[SNOMED: 71164852] Zoya Varela MD, [facility] CPT-4: 81117 01/02/2012 OFFICE VISIT, NEW - LEVEL 4 Diagnosis: ESSENTIAL HYPERTENSION[SNOMED: 71409669] Diagnosis: HYPERLIPIDEMIA[ICD9: 272.4] Diagnosis: IMPACTED CERUMEN[ICD9: 380.4] Diagnosis: Muscle spasm[ICD9: 728.85] Diagnosis: CHRONIC TENSION HEADACHE[ICD9: 339.12] Diagnosis: Neck pain, chronic[ICD9: 723.1] Diagnosis: Change in skin mole[ICD9: 216.9] Zoya Varela MD, [facility] CPT-4: 99281 12/20/2011 Plan of Care Planned Activity Notes C odes Status Date Visit Plan: URI - Pt advised to inc rease fluids, vitamin C. Discussed natural and expected course of this diagnosis and need to alert me if symptoms do not follow expected course, or if any worse and i will send in an antibiotic. Patient verbalized understanding of plan. 01/21/2019 Appointment: Kacy Moses WPtel: [facility]5 [phone] (15 min) Moderate 01/21/2019 Patient Education: Patient Medication Summary Completed 01/21/2019 Appointment: Zoya Varela WPtel: [facility]5 [facility] (15 min) Moderate 12/15/2018 Visit Plan: Hypertension [...] medications. 10/14/2018 Appointment: Zoya Varela WPtel: [phone] [facility] (15 min) Moderate 10/14/2018 Patient Education: Patient [...] metoprolol, will have pt go see her work station support specialist as we may need to consider stopping the beta ori completely versus potential need for pacemaker. 09/22/2018 Appointment: Zoya Varela WPtel: [phone] [facility] (15 min) Moderate 09/22/2018 Patient Education: Patient Medication Summary Completed 09/22/2018 Appointment: Zoya Varela WPtel: [phone] [facility] (15 min) Moderate 09/09/2018 Visit Plan: Hypertension [...] she can be seen by Oncology in [place]. 06/08/2018 Appointment: Zoya Varela WPtel: [phone] [place] (15 min) Moderate 06/08/2018 Patient Education: Patient Medication Summary Completed 06/08/2018 Visit Plan: URI - Pt advised to inc rease fluids, vitamin C. Discussed natural and expected course of this diagnosis and need to alert me if symptoms do not follow expected course, or if any worse. RX sent to patient's pharmacy. 05/04/2018 Appointment: [facility]el: [phone] [place] (30 min) Complex 05/04/2018 Patient [...] lower extremities. 02/04/2018 Appointment: Zoya Varela WPtel: [facility]5 [facility] (15 min) Moderate 02/04/2018 Patient Education: Patient [...] Summary Completed 02/03/2018 Appointment: Laura Velasco WPtel: [facility]5 [facility] [facility] - Annual Wellness Visit 01/28/2018 Appointment: Zoya Varela WPtel: [address] [place], [place] [phone] (15 min) Moderate 01/15/2018 Visit Plan: Hypertension [...] Dr. Madison. 09/17/2017 Appointment: Zoya Varela WPtel: [phone] [facility] (15 min) Moderate 09/17/2017 Patient Education: Patient Medication Summary Completed 09/17/2017 Patient Education: Obesity Completed 09/17/2017 Patient Education: Hypertension Completed 09/17/2017 Care Plan: SCREENINGMAMMOGRAPHYDIGITAL [facility] 06977-7 Pending 09/17/2017 Visit Plan: Poison Sarah -kenalog inj ection today in the office-start prednisone tomorrow pt is to use topical treatments as directed. Pt is cleanse clothing in hot water with soap, and call if symptoms do not improve or if they worsen. 06/23/2017 Appointment: Kacy Moses WPtel: [phone] [phone] [place] (15 min) Moderate 06/23/2017 Patient Education: Patient [...] medications. 05/13/2017 Appointment: Zoya Varela WPtel: [phone] (15 min) Moderate 05/13/2017 Patient Education: Patient [...] they worsen. 03/21/2017 Appointment: Kacy Moses WPtel: [phone] (15 min) Moderate 03/21/2017 Patient Education: [...] in pain. 03/19/2017 Appointment: Laura Velasco WPtel: [facility] (15 min) Moderate 03/19/2017 Patient [...] in hearing. 01/22/2017 Appointment: Laura Velasco WPtel: [facility]2 [facility] [facility] - Annual Wellness Visit 01/22/2017 [...] home. 01/14/2017 Appointment: Zoya Varela WPtel: [phone] [facility] (15 min) Moderate 01/14/2017 Patient Education: Patient [...] of plan. 09/23/2016 Appointment: Kacy Moses WPtel: [address] [phone] (15 min) Moderate 09/23/2016 Patient Education: [...] Appointment: Zoya Varela WPtel: [phone] (15 min) Moderate 09/16/2016 Patient Education: Patient Medication Summary Completed 09/16/2016 Patient Education: Obesity Completed 09/16/2016 Care Plan: SCREENINGMAMMOGRAPHYDIGITAL LOINC : 63682-0 Pending 09/16/2016 Visit Plan: Cracked/painful lips-ba cterial [...] any worse. 06/25/2016 Appointment: Kacy Moses WPtel: [phone] [phone] [place] (15 min) Moderate 06/25/2016 Patient Education: [...] allergy spray. 04/03/2016 Appointment: Kacy Moses WPtel: [facility]0 [phone] (30 min) Complex 04/03/2016 Patient Education: [...] Hypertension Completed 03/13/2016 Appointment: Zoya Varela WPtel: [facility]2 [facility] (15 min) Moderate 02/28/2016 Appointment: Zoya Varela WPtel: [facility]1 [facility] (15 min) Moderate 02/01/2016 Visit Plan: Hypertension [...] for treatment. 01/30/2016 Appointment: Zoya Varela WPtel: [address] [place] [address] (15 min) Moderate 01/30/2016 Patient Education: Patient [...] at home. 02/06/2015 Appointment: Zoya Varela WPtel: [facility]5 [facility] Follow up 02/06/2015 Patient Education: Patient [...] peripheral edema. 01/10/2015 Appointment: Zoya Varela WPtel: [facility]5 [facility] Sick 01/10/2015 Patient Education: Patient Medication Summary [...] less controlled. 07/19/2014 Appointment: Zoya Varela WPtel: [facility] Follow up 07/19/2014 Patient Education: Patient Medication Summary Completed 07/19/2014 Patient Education: Hypertension Completed 07/19/2014 Care Plan: SCREENINGMAMMOGRAPHYDIGITAL INC : 78167-8 Ordered 07/19/2014 Visit Plan: Left ankle pain-sprain- [...] at home. 04/19/2014 Appointment: Josué Kacy WPtel: [phone] [id number] Diabetic education 04/19/2014 Patient Education: Patient [...] medications. 04/11/2014 Appointment: Zoya Varela WPtel: [phone] Follow up 04/11/2014 Patient Education: Patient [...] spray in the nasal steroid allergy spray. Cpmaiay-qvlcdcqmmirv-kqvfwpx xanax at bedtime Esophageal Reflux - the patient has been counseled against excessive intake of caffiene, spicy foods, peppermint, and cinnamon - all of which can exacerbate esophageal reflux. The patient is to take medications as prescribed and call the office if the symptoms are not improving. 03/10/2014 Appointment: Nichole Zoya WPtel: 101 [facility] Other 03/10/2014 Patient Education: Patient Medication Summary [...] nasal steroid allergy spray. 02/02/2014 Appointment: Kacy oMses WPtel: [phone] [phone] [place] Other 02/02/2014 Patient Education: Patient Medication [...] site. 10/25/2013 Appointment: Zoya Varela WPtel: [phone] [facility] Follow up 10/25/2013 Patient Education: Patient Medication [...] AT BEDTIME 08/24/2013 Appointment: Zoya Varela WPtel: [facility]5 [facility] Follow up 08/24/2013 Patient Education: Patient Medication [...] acute concerns. 07/26/2013 Appointment: Zoya Varela WPtel: [facility]5 [facility] Follow up 07/26/2013 Patient Education: Patient [...] NOT IMPROVE. 06/30/2013 Appointment: Zoya Varela WPtel: [facility]5 [facility] [place] Other 06/30/2013 Patient Education: Patient Medication Summary [...] acute concerns. 06/24/2013 Appointment: Kacy Moses WPtel: [facility]5 [phone] Follow up 06/24/2013 Patient Education: Patient Medication Summary Completed 06/24/2013 Patient Education: Hypertension Completed 06/24/2013 Appointment: Zoya Varela WPtel: [address] [place], [place] [phone] Other 03/23/2013 Visit Plan: Hypotension - pt is on chronic antihypertensive medication - the medication has been adjusted down to attempt to alleviate the low blood pressures. Leg pain - Leg swelling - pt to have ultrasound on her right lower leg due to post-operative swelling and pain. 12/01/2012 Appointment: Zoya Varela WPtel: [address] [place], [place] [phone] Follow up 12/01/2012 Patient Education: Patient Medication Summary Completed 12/01/2012 Patient Education: Hypertension Completed 12/01/2012 Appointment: Zoya Varela WPtel: [address] [place], [place] [phone] Follow up 10/20/2012 Visit Plan: Shingles - [...] considered contagious. 10/19/2012 Appointment: Zoya Varela WPtel: [address] [place], [place] [phone] Other 10/19/2012 Patient Education: Patient Medication Summary [...] peripheral edema. 10/07/2012 Appointment: Kacy Moses WPtel: [phone] Other 10/07/2012 Patient Education: Hypertension Completed 10/07/2012 [...] edema. 2012 Appointment: Zoya Varela WPtel: [phone] [facility] Other 2012 Patient Education: Patient Medication Summary [...] EVENING. 08/18/2012 Appointment: Zoya Varela WPtel: [phone] Follow up 08/18/2012 Patient Education: Patient Medication [...] the knees. 08/04/2012 Appointment: Zoya Varela WPtel: [facility]5 [facility] [place] Follow up 08/04/2012 Patient Education: Patient [...] twice daily. 07/01/2012 Appointment: Zoya Varela WPtel: [address] [place], [place] [phone] Other 07/01/2012 Patient Education: Patient Medication Summary [...] two weeks 05/20/2012 Appointment: Zoya Varela WPtel: [address] [place], [place] [phone] [place] Follow up 05/20/2012 Patient Education: Patient Medication Summary Completed 05/20/2012 Patient Education: High Blood Pressure: Essential Hypertension Completed 05/20/2012 Appointment: Zoya Varela WPtel: [facility]5 [facility] [place] Other 05/11/2012 Visit Plan: Hypertension - [...] dosing. 04/20/2012 Appointment: Zoya Varela WPtel: [phone] [facility] Follow up 04/20/2012 Patient Education: Patient Medication [...] few weeks. 03/10/2012 Appointment: Zoya Varela WPtel: [facility]0 [facility] Other 03/10/2012 Patient Education: Patient Medication Summary [...] codeine. 02/25/2012 Appointment: Zoya Varela WPtel: [phone] Other 02/25/2012 Patient Education: Patient Medication [...] office. 02/19/2012 Appointment: Zoya Varela WPtel: [phone] [facility] Other 02/19/2012 Patient Education: Patient Medication Summary [...] office 01/23/2012 Appointment: Kacy Moses WPtel: [phone] [phone] Other 01/23/2012 Patient Education: Patient Medication [...] DAILY. 01/02/2012 Appointment: Zoya Varela WPtel: [phone] Other 01/02/2012 Patient Education: Patient Medication Summary [...] wks. 12/20/2011 Appointment: Zoya Varela WPtel: [address] [place] [address] New Patient 12/20/2011 Patient Education: Patient Medication [...] pt is to call for acute concerns. zyrtec daily coricidin hpb . URI - [...] to further attempt to reduce peripheral edema. bactroban ointment t o right leg kenalog injection today-start prednisone tomorrow . Poison Sarah -kenalog injection today in the office-start prednisone tomorrow pt is to use topical treatments as directed. Pt is cleanse clothing in hot water with soap, and call if symptoms do not improve or if they worsen. THE PATIENT IS TO CH JUSTINE HER [...] metoprolol, will have pt go see her work station support specialist as we may need to consider stopping [...] recommended compression socks to lower extremities. . If the clonidine p [facility] has the blood pressures at or below 120/80, then the pt is to stop her norvasc and call the clinic, pt is to rtc in 2 weeks. Apply the pennsaid 15 drops to each knee three times daily, rub in the pennsaid to hands after each application on the knees. Biotene OTC Decrease dose of Lyrica to [...] blood pressure readings in a few weeks. START STEROID TAPER ON FRIDAY. MECLIZINE IS [...] CALL IF DIZZINESS DOES NOT IMPROVE. INCREASE YOUR METOPR OLOL TARTATE 100MG TO [...] for xray left ankle . Hypertension - wel l controlled - [...] his plans for treatment. . Hypertension - wel l controlled - [...] CLONIDINE 0.1 mg by mouth TWICE DAILY. PATIENT IS TO CHECK BLOOD PRESSURE AND [...] she can be seen by Oncology in [place]. . Tick - tick with h ead [...] spray in the nasal steroid allergy spray. Huyydxd-buwaktoybgvv-ahxhonm xanax at bedtime Esophageal Reflux - the [...]
--- OUTSIDE RECORDS SUMMARY | 2020-05-26 03:23 | XMS REPORT | CCD ---
Author Author Natali Varela Organization Zoya Varela MD, [facility] Address [address] [place] [address] Phone Care Team Providers Care Dietary Worker Name Role Phone PP Unavailable CCM Unavailable Summary Purpose Interface Exchange Insurance Providers Payer name Policy type / Coverage type Covered democrat ID Effective Begin Date Effective End Date WPS Medicare Part B Medicare Part B [id number] Unknown MEDICO INSURANCE [employer] Medicare Part B [id number] Unknown Family history Mother Diagnosis Age At Onset Liver Failure Unknown Diabetes mellitus Type 2 Unknown Hyperlipidemia Unknown Hypertension Unknown Cancer Unknown Arthritis Unknown Father Diagnosis Age At Onset Liver Failure Unknown Cancer Unknown Social History Social History Element Codes Description Effective Dates Marital status Unknown M arried 12/12/2011 Number of children Unknown 3 12/12/[address]: 4605260 Former smoker quit in 199212/12/2011 Allergies, Adverse [...] Instructions cyclobenzaprine 10 m g tablet RxNorm: 810705 TAKE ONE TABLET BY [facility] EVERY 8 HOURS NEEDED 01/27/2019 03/07/2019 Active doxazosin 4 mg tablet RxNorm: 002475 Tablet(s) TAKE ONE TABLET BY MOUTH TWO T IMES A DAY 01/21/2019 No Stop Date Active doxazosin 4 mg tablet RxNorm: 090790 Tablet(s) TAKE ONE AND ONE-HALF (1 & 1/2 ) TABLET BY MOUTH BY MOUTH TWO TIMES A DAY 11/12/2018 01/20/2019 Inactive cyclobenzaprine 10 m g tablet RxNorm: 065037 TAKE ONE TABLET BY [facility] EVERY 8 HOURS NEEDED 11/12/2018 12/01/2018 Inactive tramadol 50 mg tablet RxNorm: 988063 1-2 Tablet(s) PO Q8 as needed 10/02/2018 11/30/2018 In active metoprolol tartrate 100 mg tablet RxNorm: 623824 1 Tablet(s) BID 09/22/2018 09/20/2019 Active metoprolol tartrate 100 mg tablet RxNorm: 988211 TAKE ONE AND ONE-HALF (1 1/2) TABLETS BY MOUTH EVERY MORNING AND TAKE TWO TABLETS BY MOUTH EVERY EVENING 09/21/2018 09/21/2018 In active Xanax 0.25 mg tablet RxNorm: 287429 1/2-1 Tablet(s) PO QDAY PRN 08/19/2018 11/16/2018 Inactive cyclobenzaprine 10 m g tablet RxNorm: 536237 TAKE ONE TABLET BY [facility] EVERY 8 HOURS NEEDED 07/01/2018 08/09/2018 Inactive atorvastatin 20 mg t ablet RxNorm: 213971 TAKE ONE TABLET BY [facility] DAILY 06/29/2018 12/25/2018 In active atorvastatin 20 mg t ablet RxNorm: 730451 TAKE ONE TABLET BY [facility] DAILY 06/29/2018 06/28/2018 In active pilocarpine 5 mg tablet RxNorm: 5797262 1 Tablet(s) PO BID 06/09/2018 06/08/2018 Inactive pilocarpine 5 mg tablet RxNorm: 3371523 1 Tablet(s) PO BID for dry mouth 06/09/2018 09/21/2018 In active Evoxac 30 mg capsule RxNorm: 300780 1 Capsule(s) PO BID as needed dry mouth 06/08/2018 06/08/2018 In active may substitute generic cyclobenzaprine 10 m g tablet RxNorm: 021952 TAKE ONE TABLET BY MO [facility] EVERY 8 HOURS NEEDED 05/14/2018 06/30/2018 Inactive amoxicillin 500 mg c apsule RxNorm: 218775 1 Capsule(s) PO BID 05/04/2018 05/13/2018 Inactive amoxicillin 500 mg c apsule RxNorm: 350380 1 Capsule(s) PO BID 05/04/2018 05/03/2018 Inactive tramadol 50 mg tablet RxNorm: 831413 1-2 Tablet(s) PO Q8 as needed 04/24/2018 06/21/2018 In active Kenalog 40 mg/mL sylvia pension for injection RxNorm: 9908264 Milliliter(s) Inj 04/24/2018 04/24/2018 In active amlodipine 5 mg tablet RxNorm: 378673 Tablet(s) TAKE ONE TABLET BY MOUTH DAILY 04/02/2018 03/27/2019 Ac tive Xanax 0.25 mg tablet RxNorm: 532766 1/2-1 Tablet(s) PO QDAY PRN 04/02/2018 10/13/2018 Inactive metoprolol tartrate 100 mg tablet RxNorm: 019422 TAKE ONE AND ONE-HALF (1 1/2) TABLETS BY MOUTH EVERY MORNING AND TAKE TWO TABLETS BY MOUTH EVERY EVENING 02/25/2018 09/20/2018 In active Keflex 500 mg capsule RxNorm: 956596 1 Capsule(s) PO TID 02/06/2018 02/15/2018 Inactive Keflex 500 mg capsule RxNorm: 846031 1 Capsule(s) PO TID 02/06/2018 02/05/2018 Inactive Zithromax Z-Kush 250 mg tablet RxNorm: 241635 1 Tablet(s) PO UD 02/02/2018 02/06/2018 Inactive 2 tabs on day 1 then 1 tab daily on days 2-5 doxazosin 4 mg tablet RxNorm: 749821 TAKE ONE AND ONE-HALF (1 & 1/2) TABLET B Y MOUTH BY MOUTH TWO TIMES A DAY 01/16/2018 11/11/2018 Inactive atorvastatin 20 mg t ablet RxNorm: 590789 TAKE ONE TABLET BY MO [facility] DAILY 12/31/2017 06/28/2018 In active furosemide 20 mg tablet RxNorm: 523667 TAKE ONE TABLET BY MOUTH DAILY NEEDED FOR EDEMA 12/26/2017 06/23/2018 Inactive potassium chloride E R 10 mEq tablet,extended release RxNorm: 678725 TAKE ONE TABLET BY MOUTH NEEDED WITH LASIX 12/26/2017 06/23/2018 Inactive Xanax 0.25 mg tablet RxNorm: 379113 1/2-1 Tablet(s) PO QDAY PRN 11/27/2017 08/18/2018 Inactive cyclobenzaprine 10 m g tablet RxNorm: 268649 TAKE ONE TABLET BY MO [facility] EVERY 8 HOURS NEEDED 11/21/2017 02/08/2018 Inactive tramadol 50 mg tablet RxNorm: 853644 1-2 Tablet(s) PO Q8 as needed 10/28/2017 01/23/2018 In active metoprolol tartrate 100 mg tablet RxNorm: 676146 TAKE ONE AND ONE-HALF (1 1/2) TABLETS BY MOUTH EVERY MORNING AND TAKE TWO TABLETS BY MOUTH EVERY EVENING 10/28/2017 02/24/2018 In active cyclobenzaprine 10 m g tablet RxNorm: 399291 TAKE ONE TABLET BY MO [facility] EVERY 8 HOURS NEEDED 08/27/2017 10/25/2017 Inactive Xanax 0.25 mg tablet RxNorm: 209183 1/2-1 Tablet(s) PO QDAY PRN 08/04/2017 04/01/2018 Inactive cyclobenzaprine 10 m g tablet RxNorm: 856698 TAKE ONE TABLET BY MO [facility] EVERY 8 HOURS NEEDED 07/28/2017 08/16/2017 Inactive metoprolol tartrate 100 mg tablet RxNorm: 948798 TAKE ONE AND ONE-HALF (1 & 1/2) TABLET BY MOUTH EVERY MORNING AND TAKE TWO TABLETS BY MOUTH EVERY EVENING 07/28/2017 10/25/2017 In active cyclobenzaprine 10 m g tablet RxNorm: 428547 TAKE ONE TABLET BY MO [facility] EVERY 8 HOURS NEEDED 06/30/2017 07/19/2017 Inactive prednisone 10 mg tab lets in a dose pack RxNorm: 538483 1 Tablet(s) PO UD 06/23/2017 06/28/2017 In active 6-5-4-3-2-1 mupirocin 2 % topica l ointment RxNorm: 921256 1 Application TOP BID 06/23/2017 07/02/2017 Inactive Kenalog 40 mg/mL sylvia pension for injection RxNorm: 4098023 Milliliter(s) Inj 06/23/2017 06/23/2017 In active cyclobenzaprine 10 m g tablet RxNorm: 144588 TAKE ONE TABLET BY MO [facility] EVERY 8 HOURS NEEDED 06/09/2017 06/28/2017 Inactive meclizine 25 mg tablet RxNorm: 358084 1 Tablet(s) PO Q6 PRN as needed 1/2 - 1 pill every 6 hours as needed for vertigo 06/03/2017 07/14/2017 Inactive atorvastatin 20 mg t ablet RxNorm: 598918 TAKE ONE TABLET BY MO [facility] DAILY 05/30/2017 11/25/2017 In active amlodipine 5 mg tablet RxNorm: 847027 TAKE ONE TABLET BY MOUTH DAILY 05/15/2017 04/01/2018 In active cyclobenzaprine 10 m g tablet RxNorm: 189493 TAKE ONE TABLET BY MO [facility] EVERY 8 HOURS NEEDED 05/07/2017 05/26/2017 Inactive tramadol 50 mg tablet RxNorm: 399546 1-2 Tablet(s) PO Q8 as needed 04/07/2017 07/04/2017 In active cyclobenzaprine 10 m g tablet RxNorm: 345316 TAKE ONE TABLET BY MO [facility] EVERY 8 HOURS NEEDED 04/07/2017 04/26/2017 Inactive Xanax 0.25 mg tablet RxNorm: 945131 1/2-1 Tablet(s) PO QDAY PRN 04/04/2017 06/02/2017 Inactive metoprolol tartrate 100 mg tablet RxNorm: 348461 TAKE ONE AND ONE-HALF (1 & 1/2) TABLET BY MOUTH EVERY MORNING AND TAKE TWO TABLETS BY MOUTH EVERY EVENING 03/28/2017 07/25/2017 In active prednisone 10 mg tab lets in a dose pack RxNorm: 560582 1 Tablet(s) PO UD 03/21/2017 03/26/2017 In active 6-5-4-3-2-1 Kenalog 40 mg/mL sylvia pension for injection RxNorm: 0195453 2 Milliliter(s) Inj 03/21/2017 03/21/2017 In active doxycycline hyclate 100 mg capsule RxNorm: 5025297 1 Capsule(s) PO BID 03/19/2017 03/28/2017 In active cyclobenzaprine 10 m g tablet RxNorm: 578658 TAKE ONE TABLET BY MO [facility] EVERY 8 HOURS NEEDED 02/25/2017 03/16/2017 Inactive triamcinolone aceton pineda 0.1 % topical ointment RxNorm: 0172849 1 Application TOP TI D 02/21/2017 02/20/2017 Inactive triamcinolone aceton pineda 0.1 % topical ointment RxNorm: 8089912 1 Application TOP TI D 02/21/2017 03/02/2017 Inactive doxazosin 4 mg tablet RxNorm: 544654 TAKE ONE AND ONE-HALF (1 & 1/2) TABLET B Y MOUTH BY MOUTH TWO TIMES A DAY 02/14/2017 01/09/2018 Inactive cyclobenzaprine 10 m g tablet RxNorm: 300808 TAKE ONE TABLET BY MO [facility] EVERY 8 HOURS NEEDED 01/27/2017 02/15/2017 Inactive ammonium lactate 12 % topical cream RxNorm: 495964 1 Application TOP BID 01/14/2017 02/12/2017 In active dispense one bottle of the cream potassium chloride E R 10 mEq tablet,extended release RxNorm: 563860 1 Tablet(s) PO PRN as needed with lasix 11/13/2016 12/25/2017 Inactive prn swelling furosemide 20 mg tablet RxNorm: 697988 1 Tablet(s) PO daily as needed edema 11/13/2016 01/11/2017 In active metoprolol tartrate 100 mg tablet RxNorm: 156131 TAKE ONE AND ONE-HALF (1 & 1/2) TABLET BY MOUTH EVERY MORNING AND TAKE TWO TABLETS BY MOUTH EVERY EVENING 11/01/2016 03/27/2017 In active atorvastatin 20 mg t ablet RxNorm: 877779 TAKE ONE TABLET BY MO [facility] DAILY 10/31/2016 04/28/2017 In active cyclobenzaprine 10 m g tablet RxNorm: 745674 TAKE ONE TABLET BY MO [facility] EVERY 8 HOURS NEEDED 10/25/2016 12/03/2016 Inactive Lyrica 25 mg capsule RxNorm: 001867 1 Tablet(s) PO BID 09/23/2016 01/13/2017 Inactive Lyrica 50 mg capsule RxNorm: 324075 1 Capsule(s) PO BID 09/16/2016 01/13/2017 Inactive amlodipine 5 mg tablet RxNorm: 451166 Tablet(s) TAKE ONE TABLET BY MOUTH DAILY 08/28/2016 05/14/2017 In active cyclobenzaprine 10 m g tablet RxNorm: 032452 TAKE ONE TABLET BY [facility] EVERY 8 HOURS NEEDED 08/05/2016 09/13/2016 Inactive Xanax 0.25 mg tablet RxNorm: 023813 1/2-1 Tablet(s) PO QDAY PRN 07/16/2016 04/03/2017 Inactive amlodipine 5 mg tablet RxNorm: 428628 TAKE ONE TABLET BY MOUTH DAILY 06/28/2016 08/26/2016 In active metoprolol tartrate 100 mg tablet RxNorm: 623950 Tablet(s) TAKE ONE AN D ONE-HALF (1 & 1/2) TABLET BY MOUTH EVERY MORNING AND TAKE TWO TABLETS BY MOUTH EVERY EVENING 05/02/2016 05/02/2016 Inactive metoprolol tartrate 100 mg tablet RxNorm: 602977 Tablet(s) PO TAKE ONE AND ONE-HALF (1 & 1/2) TABLET BY MOUTH EVERY MORNING AND TAKE TWO TABLETS BY MOUTH EVERY EVENING 05/02/2016 05/01/2016 Inactive metoprolol tartrate 100 mg tablet RxNorm: 780053 Tablet(s) PO TAKE ONE AND ONE-HALF (1 & 1/2) TABLET BY MOUTH EVERY MORNING AND TAKE TWO TABLETS BY MOUTH EVERY EVENING 05/02/2016 10/28/2016 Inactive atorvastatin 20 mg t ablet RxNorm: 418369 TAKE ONE TABLET BY [facility] DAILY 04/25/2016 10/21/2016 In active tramadol 50 mg tablet RxNorm: 840843 1-2 Tablet(s) PO Q8 as needed 04/25/2016 10/27/2017 In active cyclobenzaprine 10 m g tablet RxNorm: 840248 Tablet(s) PO TAKE ONE TABLET BY MOUTH EVERY 8 HOURS NEEDED 04/18/2016 06/16/2016 Inactive Kenalog 40 mg/mL sylvia pension for injection RxNorm: 2618857 1 Milliliter(s) Inj 04/04/2016 04/04/2016 In active Phenergan with Codei ne Syrup RxNorm: PO 04/03/2016 No Stop Date Active Zithromax Z-Kush 250 mg tablet RxNorm: 755358 1 Tablet(s) PO UD 04/03/2016 04/07/2016 Inactive 2 tabs on day 1 then 1 tab daily on days 2-5 amlodipine 5 mg tablet RxNorm: 732340 TAKE ONE TABLET BY MOUTH DAILY 03/27/2016 06/24/2016 In active Flexeril 10 mg tablet RxNorm: 835810 TAKE ONE TABLET BY MOUTH EVERY 8 HOURS A S NEEDED 03/14/2016 04/02/2016 Inactive Vitamin B-12 ER 2,00 0 mcg tablet,extended release RxNorm: 448992 1 Tablet(s) PO daily 03/13/2016 No Stop Date Active Vitamin B-12 ER 2,00 0 mcg tablet,extended release RxNorm: 908329 1 Tablet(s) PO daily 03/13/2016 No Stop Date Active gabapentin 100 mg ca psule RxNorm: 556777 1 Capsule(s) PO BID 03/13/2016 09/15/2016 Inactive Flexeril 10 mg tablet RxNorm: 610807 Tablet(s) TAKE ONE TABLET BY MOUTH EVERY 8 HOURS NEEDED 02/08/2016 02/27/2016 Inactive Xanax 0.25 mg tablet RxNorm: 729768 1/2-1 Tablet(s) PO QDAY PRN 02/08/2016 07/15/2016 Inactive amlodipine 5 mg tablet RxNorm: 132034 1 Tablet(s) PO daily 02/06/2016 03/26/2016 Inactive furosemide 20 mg tablet RxNorm: 366566 1 Tablet(s) PO daily 01/30/2016 06/16/2016 Inactive amlodipine 10 mg tablet RxNorm: 342088 1/2 Tablet(s) PO daily 01/30/2016 02/05/2016 Inactive doxazosin 4 mg tablet RxNorm: 124139 1.5 Tablet(s) PO BID 01/30/2016 01/23/2017 Inactive Flexeril 10 mg tablet RxNorm: 230697 TAKE ONE TABLET BY MOUTH EVERY 8 HOURS A S NEEDED 01/10/2016 01/29/2016 Inactive potassium chloride E R 10 mEq tablet,extended release RxNorm: 839195 1 Tablet(s) PO PRN as needed with lasix 12/25/2015 06/16/2016 Inactive prn swelling amlodipine 10 mg tablet RxNorm: 474791 TAKE ONE TABLET BY MOUTH EVERY MORNING 12/25/2015 12/24/2015 In active amlodipine 10 mg tablet RxNorm: 109914 TAKE ONE TABLET BY MOUTH EVERY MORNING 12/25/2015 01/29/2016 In active furosemide 20 mg tablet RxNorm: 167594 1/2 Tablet(s) PO daily as needed edema 12/21/2015 01/19/2016 In active pt needs to take 10meq potassium on days she takes the lasix metoprolol tartrate 100 mg tablet RxNorm: 963089 TAKE ONE AND ONE-HALF (1 & 1/2) TABLET BY MOUTH EVERY MORNING AND TAKE TWO TABLETS BY MOUTH EVERY EVENING 11/08/2015 12/07/2015 In active Flonase Allergy Reli ef 50 mcg/actuation nasal spray,suspension RxNorm: [place] as needed PLACE 2 SPRAYS IN EACH NOSTRIL DAILY 10/09/2015 02/05/2016 Inactive Flexeril 10 mg tablet RxNorm: 703981 1 Tablet(s) PO TID PRN TAKE ONE TABLET B Y MOUTH EVERY 8 HOURS NEEDED 10/09/2015 12/07/2015 Inactive alprazolam 0.5 mg ta blet RxNorm: 384683 TAKE ONE TABLET BY [facility] AT BEDTIME NEEDED FOR ANXIETY 08/29/2015 11/23/2015 Inactive Flonase Allergy Reli ef 50 mcg/actuation nasal spray,suspension RxNorm: PLACE 2 SPRAYS IN EACH NOSTRIL DAILY 07/06/2015 10/08/2015 Inactive Kenalog 40 mg/mL sylvia pension for injection RxNorm: 4252789 Milliliter(s) Inj 06/12/2015 06/12/2015 In active prednisone 10 mg tab lets in a dose pack RxNorm: 591492 1 Tablet(s) PO UD 06/12/2015 06/17/2015 In active 6-5-4-3-2-1 acyclovir 800 mg tablet RxNorm: 205080 1 Tablet(s) PO TID 06/12/2015 06/21/2015 Inactive Xanax 0.25 mg tablet RxNorm: 667942 1/2-1 Tablet(s) PO QDAY PRN 05/15/2015 02/07/2016 Inactive Flonase Allergy Reli ef 50 mcg/actuation nasal spray,suspension RxNorm: 2 [place] NASAL daily 05/15/2015 06/13/2015 Inactive Kenalog 40 mg/mL sylvia pension for injection RxNorm: 9384818 Milliliter(s) Inj 05/15/2015 05/15/2015 In active metoprolol tartrate 100 mg tablet RxNorm: 226987 TAKE ONE AND ONE-HALF (1 & 1/2) TABLET BY MOUTH EVERY MORNING AND TAKE TWO TABLETS BY MOUTH EVERY EVENING 05/07/2015 06/05/2015 In active metoprolol tartrate 100 mg tablet RxNorm: 049401 TAKE ONE AND ONE-HALF (1 & 1/2) TABLET BY MOUTH EVERY MORNING AND TAKE TWO TABLETS BY MOUTH EVERY EVENING 04/05/2015 05/04/2015 In active amlodipine 10 mg tablet RxNorm: 593823 TAKE ONE TABLET BY MOUTH EVERY MORNING 03/10/2015 12/04/2015 In active alprazolam 0.5 mg ta blet RxNorm: 912990 TAKE ONE TABLET BY MO [facility] EVERY NIGHT AT BEDTIME NEEDED FOR ANXIETY 02/23/2015 03/24/2015 Inactive (Response to an electronic controlled substance refill request - RxReferenceNumber: [id number]) alprazolam 0.5 mg ta blet RxNorm: 375455 1 Tablet(s) PO QHS as needed anxiety 02/23/2015 08/29/2015 In active (Response to an electronic controlled salas bstance refill request - RxReferenceNumber: [id number]) doxazosin 4 mg tablet RxNorm: 726379 TAKE ONE TABLET BY MOUTH TWICE A DAY 02/13/2015 01/29/2016 In active atorvastatin 20 mg t ablet RxNorm: 879012 TAKE ONE TABLET BY MO [facility] EVERY DAY 01/19/2015 07/17/2015 In active atorvastatin 20 mg t ablet RxNorm: 451457 Tablet(s) TAKE ONE TA BLET BY MOUTH EVERY DAY 01/19/2015 01/18/2015 Inactive [SAVINGS FOR NON-COVERED DRUGS -- BIN:00 [id number], PCN: ASPROD1, Group: [id number], ID# [id number], Questions: . THIS IS NOT INSURANCE.] Maxzide-25mg 37.5 mg -25 mg tablet RxNorm: 51545 1 Tablet(s) PO daily 01/10/2015 10/08/2015 Inactive [SAVINGS FOR NON-COVERED DRUGS -- BIN:00 3585, PCN: ASPROD1, Group: XXXXX, ID# [id number], Questions: . THIS IS NOT INSURANCE.] metoprolol tartrate 100 mg tablet RxNorm: 109388 TAKE ONE AND ONE-HALF (1 & 1/2) TABLET BY MOUTH EVERY MORNING AND TAKE TWO TABLETS BY MOUTH EVERY EVENING 12/05/2014 01/03/2015 In active Flexeril 10 mg tablet RxNorm: 377975 TAKE ONE TABLET BY MOUTH EVERY 8 HOURS A S NEEDED 10/31/2014 06/27/2015 Inactive alprazolam 0.5 mg ta blet RxNorm: 778354 1 Tablet(s) PO QHS TA KE ONE TABLET BY MOUTH EVERY NIGHT AT BEDTIME AND NEEDED FOR PANIC ATTACKS 10/21/2014 10/23/2014 Inactive (Appended: Controlled substance eRx refi ll - RxReferenceNumber: [id number]) alprazolam 0.5 mg ta blet RxNorm: 134841 TAKE ONE TABLET BY MO [facility] EVERY NIGHT AT BEDTIME NEEDED FOR ANXIETY 10/20/2014 11/18/2014 Inactive (Response to an electronic controlled substance refill request - RxReferenceNumber: [id number]) amlodipine 10 mg tablet RxNorm: 384291 1 Tablet(s) PO QAM 09/09/2014 03/07/2015 Inactive now taking full tab [SAVINGS FOR UNINSURED PATIENTS -- BIN:812766, PCN: [id number], Group: [id number], ID# [id number], Process claim through [id number], for questions: . THIS IS NOT INSURANCE.] metoprolol tartrate 100 mg tablet RxNorm: 066018 TAKE ONE AND ONE-HALF (1 & 1/2) TABLET BY MOUTH EVERY MORNING AND TAKE TWO TABLETS BY MOUTH EVERY EVENING 09/03/2014 10/02/2014 In active alprazolam 0.5 mg ta blet RxNorm: 878391 TAKE ONE TABLET BY MO [facility] EVERY NIGHT AT BEDTIME AND NEEDED FOR PANIC ATTACKS 08/29/2014 09/12/2014 Inactive (Response to an electronic controlled substance refill request - RxReferenceNumber: [id number]) Zithromax Z-Kush 250 mg tablet RxNorm: 349077 1 Tablet(s) PO UD 07/26/2014 07/25/2014 Inactive 2 tabs on day 1 then 1 tab daily on days 2-5 Zithromax Z-Kush 250 mg tablet RxNorm: 963389 1 Tablet(s) PO UD 07/26/2014 07/30/2014 Inactive 2 tabs on day 1 then 1 tab daily on days 2-5 alprazolam 0.5 mg ta blet RxNorm: 390292 Tablet(s) PO TAKE ONE TABLET BY MOUTH EVERY NIGHT AT BEDTIME AND NEEDED FOR PANIC ATTACKS 07/08/2014 08/30/2014 Inactive (Appended: Controlled substance eRx refill - RxReferenceNumber: [id number]) atorvastatin 20 mg t ablet RxNorm: 009504 TAKE ONE TABLET BY [facility] EVERY DAY 04/25/2014 01/18/2015 In active Carafate 1 gram tablet RxNorm: 054792 Tablet(s) PO TAKE ONE TABLET BY MOUTH FO UR TIMES A DAY 04/14/2014 10/08/2015 Inactive Fish Oil 1,000 mg ca psule RxNorm: 1 Capsule(s) PO TID 04/13/2014 10/08/2015 Inactive Flexeril 10 mg tablet RxNorm: 133382 1 Tablet(s) PO Q8 PRN 04/01/2014 04/10/2014 Inactive Carafate 1 gram tablet RxNorm: 183394 1 Tablet(s) PO QID 03/10/2014 04/08/2014 Inactive chlordiazepoxide-cli dinium 5 mg-2.5 mg capsule RxNorm: 442802 1 Capsule(s) PO TID P RN 03/10/2014 04/10/2014 Inactive doxazosin 4 mg tablet RxNorm: 348424 1 Tablet(s) PO BID 02/02/2014 02/12/2015 Inactive Kenalog 40 mg/mL sylvia pension for injection RxNorm: 4484702 Milliliter(s) Inj 02/02/2014 02/02/2014 In active atorvastatin 20 mg t ablet RxNorm: 572681 Tablet(s) PO TAKE ONE TABLET BY MOUTH EVERY DAY 01/10/2014 04/24/2014 Inactive alprazolam 0.5 mg ta blet RxNorm: 670497 Tablet(s) PO TAKE ONE TABLET BY MOUTH EVERY NIGHT AT BEDTIME AND NEEDED FOR PANIC ATTACKS 01/10/2014 07/07/2014 Inactive (Appended: Controlled substance eRx refill - RxReferenceNumber: [id number]) alprazolam 0.5 mg ta blet RxNorm: 097102 1 Tablet(s) PO QHS TA KE ONE TABLET BY MOUTH EVERY NIGHT AT BEDTIME AND NEEDED FOR PANIC ATTACKS 01/10/2014 10/20/2014 Inactive (Appended: Controlled substance eRx refi ll - RxReferenceNumber: [id number]) alprazolam 0.5 mg ta blet RxNorm: 343658 Tablet(s) PO TAKE ONE TABLET BY MOUTH EVERY NIGHT AT BEDTIME AND NEEDED FOR PANIC ATTACKS 01/10/2014 01/09/2014 Inactive (Appended: Controlled substance eRx refill - RxReferenceNumber: [id number]) Carafate 1 gram tablet RxNorm: 007986 1 Tablet(s) PO QID 12/16/2013 01/14/2014 Inactive Nexium 40 mg capsule ,delayed release RxNorm: 562260 Capsule(s) PO TAKE ON E CAPSULE BY MOUTH EVERY DAY 11/25/2013 03/12/2016 Inactive doxazosin 4 mg tablet RxNorm: 698094 1/2 Tablet(s) PO QPM 10/21/2013 01/20/2019 Inactive alprazolam 0.5 mg ta blet RxNorm: 826173 1 Tablet(s) PO as dir ected q hs and prn panic attacks 10/18/2013 01/10/2014 Inactive doxazosin 4 mg tablet RxNorm: 376511 1 q am 1/2 q pm Tablet(s) PO 09/21/2013 02/01/2014 Inactive doxazosin 4 mg tablet RxNorm: 603375 1 q am 1/2 q pm Tablet(s) PO 09/21/2013 09/20/2013 Inactive amlodipine 10 mg tablet RxNorm: 425317 1 Tablet(s) PO QAM 08/30/2013 08/24/2014 Inactive now taking full tab metoprolol tartrate 100 mg tablet RxNorm: 020761 2 Tablet(s) PO QPM 08/24/2013 10/22/2013 Inactive alprazolam 0.5 mg ta blet RxNorm: 808340 1 Tablet(s) PO as dir ected q hs and prn panic attacks 07/29/2013 10/17/2013 Inactive Benicar 20 mg tablet RxNorm: 558097 1 Tablet(s) PO daily 07/26/2013 08/09/2013 Inactive amlodipine 10 mg tablet RxNorm: 948668 1 Tablet(s) PO QAM 07/19/2013 08/29/2013 Inactive cyclobenzaprine 5 mg tablet RxNorm: 800651 1 Tablet(s) PO TID [place] N one pill every 8 hours as needed for muscle spasms. 07/19/2013 03/31/2014 Inactive Kenalog 40 mg/mL Sylvia p for Injection RxNorm: 7146179 1 Milliliter(s) Inj 06/30/2013 06/30/2013 In active prednisone 10 mg tab lets in a dose pack RxNorm: 324605 1 Tablet(s) PO as doc tor directed take steroid taper as directed on box 06/30/2013 07/09/2013 Inactive disp ense one PACK meclizine 25 mg tablet RxNorm: 560110 1 Tablet(s) PO Q6 PRN 1/2 - 1 pill every 6 hours as needed for vertigo 06/30/2013 08/10/2013 Inactive metoprolol tartrate 100 mg tablet RxNorm: 264105 1.5 Tablet(s) PO BID 06/30/2013 08/23/2013 In active metoprolol tartrate 100 mg tablet RxNorm: 428589 1 Tablet(s) PO BID 06/24/2013 06/29/2013 Inactive metoprolol tartrate 100 mg tablet RxNorm: 369719 1 Tablet(s) PO daily 06/17/2013 06/23/2013 In active metoprolol tartrate 100 mg tablet RxNorm: 878084 1 Tablet(s) PO daily 06/17/2013 06/16/2013 In active Toprol XL 100 mg tab let,extended release RxNorm: 785128 Tablet(s) PO TAKE ONE AND ONE- HALF TABLET BY MOUTH EVERY MORNING AND ONE TABLET IN THE EVENING 05/05/2013 06/22/2013 In active alprazolam 0.5 mg ta blet RxNorm: 803578 1 Tablet(s) PO as dir ected q hs and prn panic attacks 04/06/2013 07/28/2013 Inactive doxazosin 4 mg tablet RxNorm: 365542 Tablet(s) PO TAKE ONE TABLET BY MOUTH EV KANE DAY 04/01/2013 09/20/2013 Inactive Toprol XL 100 mg tab let,extended release RxNorm: 112761 Tablet(s) PO TAKE ONE AND ONE- HALF TABLET BY MOUTH EVERY MORNING AND ONE TABLET IN THE EVENING 12/25/2012 05/04/2013 In active Lasix 20 mg tablet RxNorm: 569989 1 Tablet(s) PO QDAY PRN Take 1 tab daily x 3 days then as needed 12/02/2012 04/10/2014 Inactive potassium chloride E R 20 mEq tablet,extended release(part/cryst) RxNorm: 821630 1 Tablet(s) PO PRN 12/02/2012 10/04/2013 Inactive prn swelling alprazolam 0.5 mg ta blet RxNorm: 486848 1 Tablet(s) PO as dir ected q hs and prn panic attacks 12/01/2012 04/05/2013 Inactive amlodipine 10 mg tablet RxNorm: 064188 1/2 Tablet(s) PO QAM 12/01/2012 07/18/2013 Inactive fluconazole 150 mg t ablet RxNorm: 179331 1 Tablet(s) PO daily 11/16/2012 11/20/2012 Inactive fluconazole 150 mg t ablet RxNorm: 464218 1 Tablet(s) PO daily 11/16/2012 11/15/2012 Inactive Nexium 40 mg capsule ,delayed release RxNorm: 600895 1 Capsule(s) PO daily 10/23/2012 11/16/2013 In active acyclovir 400 mg tablet RxNorm: 183283 1 Tablet(s) PO TID 10/19/2012 10/28/2012 Inactive chlordiazepoxide-cli dinium 5 mg-2.5 mg capsule RxNorm: 332360 1 Capsule(s) PO TID P RN 2012 12/22/2013 Inactive Voltaren 1 % Topical Gel RxNorm: 524826 4 Gram(s) TOP QID pt is to use 2 grams to each hand and 4 grams to knees. 08/18/2012 04/10/2014 Inactive doxazosin 4 mg tablet RxNorm: 957560 1 Tablet(s) PO QAM 08/18/2012 10/16/2012 Inactive atorvastatin 20 mg t ablet RxNorm: 440985 1 Tablet(s) PO HS 08/12/2012 08/11/2012 Inactive may have #90 x3 infection atorvastatin 20 mg t ablet RxNorm: 485559 1 Tablet(s) PO HS 08/12/2012 09/05/2013 Inactive may have #90 x3 infection doxazosin 4 mg tablet RxNorm: 427723 1 Tablet(s) PO daily 08/11/2012 08/17/2012 Inactive clonidine 0.1 mg/24 hr Weekly Transderm Patch RxNorm: 673475 1 Patch TD QW 08/04/2012 08/10/2012 In active Influenza Virus Vacc ine 0.5 mL RxNorm: IM 08/04/2012 08/04/2012 Inactive cyclobenzaprine 5 mg tablet RxNorm: 023767 1 Tablet(s) PO TID [place] N one pill every 8 hours as needed for muscle spasms. 07/13/2012 11/09/2012 Inactive cyclobenzaprine 5 mg tablet RxNorm: 081224 1 Tablet(s) PO TID [place] N one pill every 8 hours as needed for muscle spasms. 07/09/2012 07/12/2012 Inactive gabapentin 100 mg ca psule RxNorm: 855224 1 Capsule(s) PO TID 07/01/2012 12/01/2012 Inactive atorvastatin 20 mg t ablet RxNorm: 838109 1/2 Tablet(s) PO daily 07/01/2012 08/11/2012 Inactive may of day supply if cheaper Toprol XL 100 mg tab let,extended release RxNorm: 449598 Tablet(s) PO BID 11/2 in am and 1 in evening 07/01/2012 06/16/2013 Inactive 1 1/2 q am 1 in [place] alprazolam 0.5 mg ta blet RxNorm: 661183 1 Tablet(s) PO as dir ected q hs and prn panic attacks 06/24/2012 11/30/2012 Inactive amlodipine 10 mg tablet RxNorm: 964587 1 Tablet(s) PO QAM 06/19/2012 11/30/2012 Inactive benazepril 20 mg tablet RxNorm: 906900 1 Tablet(s) PO daily 06/19/2012 06/13/2013 Inactive one daily at noon Toprol XL 100 mg tab let,extended release RxNorm: 397201 Tablet(s) PO BID 06/19/2012 06/30/2012 In active 1 1/2 q am 1 in [place] Toprol XL 100 mg tab let,extended release RxNorm: 133274 1 1/2 Tablet(s) PO BI D 04/27/2012 06/18/2012 In active 90 or 30 day supply, whatever ins will a llow Lotrel 10 mg-20 mg Cap RxNorm: 082621 1 Capsule(s) PO daily 04/20/2012 08/04/2012 Inactive estradiol 0.5 mg Tab RxNorm: 655296 1 Tablet(s) PO BID 04/20/2012 12/02/2012 Inactive Toprol XL 100 mg 24 hr Tab RxNorm: 095144 1 1/2 Tablet(s) PO BID 04/14/2012 04/26/2012 Inactive Toprol XL 100 mg 24 hr Tab RxNorm: 277193 Tablet(s) PO daily 03/31/2012 04/13/2012 Inactive new directions: one q am 1/2 every evepl ease put on file until she needs filled Lipitor 10 mg tablet RxNorm: 178821 1 Tablet(s) PO daily 03/31/2012 12/02/2012 Inactive march of day supply if cheaper Toprol XL 100 mg 24 hr Tab RxNorm: 354259 1 Tablet(s) PO daily 03/11/2012 03/30/2012 Inactive Boniva 150 mg Tab RxNorm: 271787 1 Tablet(s) PO weekly 02/19/2012 12/02/2012 Inactive Detrol LA 4 mg capsu le,extended release RxNorm: 152722 1 Capsule(s) PO daily 02/19/2012 03/12/2016 In active doxycycline hyclate 100 mg Tab RxNorm: 1659440 1 Tablet(s) PO BID 01/23/2012 02/25/2012 Inactive Rocephin 500 mg Solu tion for Injection RxNorm: 3939738 1 Milliliter(s) Inj 01/23/2012 01/23/2012 In active Kenalog 40 mg/mL Sylvia p for Injection RxNorm: 1938907 1 Milliliter(s) Inj 01/23/2012 01/23/2012 In active cyclobenzaprine 5 mg tablet RxNorm: 652005 1 Tablet(s) PO TID [place] N one pill every 8 hours as needed for muscle spasms. 12/20/2011 04/17/2012 Inactive clonidine 0.1 mg Tab RxNorm: 753986 1 Tablet(s) PO BID 12/20/2011 02/25/2012 Inactive Vitamin D3 5,000 uni t tablet RxNorm: 092985 1 Tablet(s) PO daily No Start Date Active Nexium 24HR 22.3 mg capsule,delayed release RxNorm: 816517 1 Capsule(s) PO daily as needed No Start Date Active Fish Oil 360 mg-1,20 0 mg capsule,delayed release RxNorm: 1 Capsule(s) PO daily No Start Date Active Lotrel 10 mg-20 mg Cap RxNorm: 770303 1 Capsule(s) PO daily No Start Date 02/24/2012 Inactive benazepril 20 mg tablet RxNorm: 030693 1 Tablet(s) PO No Start Date 06/18/2012 Inactive one daily at noon Vimovo 500 mg-20 mg multiphase, immed & delay rel Tab RxNorm: 290704 1 Tablet(s) PO BID No Start Date 12/01/2012 Inactive B12 1000 mcg RxNorm: 2 IM daily No Start Date 03/12/2016 Inactive Fish Oil 1,000 mg ca psule RxNorm: 1 Capsule(s) PO BID No Start Date 04/12/2014 Inactive Benicar 40 mg tablet RxNorm: 650830 1 Tablet(s) PO daily No Start Date 10/24/2013 Inactive Carafate 1 gram tablet RxNorm: 292669 Oral No Start Date 12/15/2013 Inactive Vitamin B-12 1,000 m cg tablet RxNorm: 586712 1 Tablet(s) PO daily No Start Date 03/12/2016 Inactive amlodipine 10 mg tablet RxNorm: 859236 1 Tablet(s) PO daily No Start Date 06/18/2012 Inactive Phenergan VC-Codeine 6.25 mg-5 mg-10 mg/5 mL Syrup RxNorm: 817347 5-10 Milliliter(s) PO Q6 PRN No Start Date 04/10/2014 Inactive Celebrex 200 mg capsule RxNorm: 485155 1 Capsule(s) PO daily No Start Date 10/08/2015 Inactive Percocet 5 mg-325 mg tablet RxNorm: 2524502 1-2 Tablet(s) PO Q6 PRN No Start Date 06/16/2014 Inactive Exforge 10 mg-320 mg Tab RxNorm: 270030 1 Tablet(s) PO daily sample No Start Date 05/20/2012 Inactive Lipitor 10 mg Tab RxNorm: 898643 1 Tablet(s) PO daily No Start Date 03/30/2012 Inactive tramadol 50 mg tablet RxNorm: 933799 1-2 Tablet(s) PO Q8 as needed No Start Date 04/24/2016 Inactive Lasix 20 mg tablet RxNorm: 716128 1 Tablet(s) PO QDAY PRN Take 1 tab daily x 3 days then as needed No Start Date 12/01/2012 Inactive potassium chloride E R 20 mEq tablet,extended release(part/cryst) RxNorm: 7650551 1 Tablet(s) PO QDAY PRN No Start Ochoa e 12/01/2012 Inactive Toprol XL 100 mg 24 hr Tab RxNorm: 199104 1 Tablet(s) PO daily No Start Date 03/10/2012 Inactive MIDRIN 325 mg-65 mg- 100 mg Cap RxNorm: 826627 1 Capsule(s) PO PRN No Start Date 05/20/2012 Inactive Nexium 40 mg capsule ,delayed release RxNorm: 175603 1 Capsule(s) PO daily No Start Date 10/22/2012 Inactive Detrol LA 4 mg 24 hr Cap RxNorm: 478690 Oral No S tart Date 02/18/2012 Inactive Boniva 150 mg Tab RxNorm: 002859 Oral No Start Date 02/18/2012 Inactive Flexeril 10 mg tablet RxNorm: 442140 1 Tablet(s) PO Q8 PRN No Start Date 03/31/2014 Inactive clidinium bromide Oral RxNorm: Oral No Start Date 12/01/2012 Inactive alprazolam 0.5 mg ta blet RxNorm: 008569 1 Tablet(s) PO as dir ected q hs and prn panic attacks No Start Date 06/23/2012 Inactive chlordiazepoxide Oral RxNorm: Oral No Start Date 12/01/2012 Inactive metoprolol tartrate 100 mg tablet RxNorm: 979973 Tablet(s) PO TAKE ONE AND ONE-HALF (1 & 1/2) TABLET BY MOUTH EVERY MORNING AND TAKE TWO TABLETS BY MOUTH EVERY EVENING No Start Date 08/03/2014 Inactive furosemide 20 mg tablet RxNorm: 566033 1 Tablet(s) PO daily No Start Date 01/29/2016 Inactive Calcium Oral RxNorm: Oral No Start Date 03/12 Inactive Nasonex 50 mcg/actua tion [place] RxNorm: 956242 1 [place] NASAL BID No Start Date 04/10/2014 Inactive Medication Administered Medication Codes Instruc tions Start Date Status Kenalog 40 mg/mL suspension for injection RxNorm: 0901489 Milliliter 04/24/2018 No longer Active Kenalog 40 mg/mL suspension for injection RxNorm: 8234771 Milliliter 06/23/2017 No longer Active Kenalog 40 mg/mL suspension for injection RxNorm: 5363491 2Milliliter 03/21/2017 N o longer Active Kenalog 40 mg/mL suspension for injection RxNorm: 9555769 1Milliliter 04/04/2016 N o longer Active Kenalog 40 mg/mL suspension for injection RxNorm: 7550803 Milliliter 06/12/2015 No longer Active Kenalog 40 mg/mL suspension for injection RxNorm: 8345969 Milliliter 05/15/2015 No longer Active Kenalog 40 mg/mL suspension for injection RxNorm: 3707226 Milliliter 02/02/2014 No longer Active Kenalog 40 mg/mL Susp for Injection RxNorm: 1745095 1Milliliter 06/30/2013 N o longer Active Influenza Virus Vaccine 0.5 mL RxNorm: 08/04/2012 No longer Active Rocephin 500 mg Solution for Injection RxNorm: 3145637 1Milliliter 01/23/2012 N o longer Active Kenalog 40 mg/mL Susp for Injection RxNorm: 8885487 1Milliliter 01/23/2012 N o longer Active Immunizations [...] Ord2 RDW 14.8 % 06/05/2015 Comp Metabolic Oni152 NA 138 mEq/L 06/05/2015 Comp Metabolic Hxf225 K 4.3 mEq/L 06/05/2015 Comp Metabolic Mqm100 CL 100 mEq/L 06/05/2015 Comp Metabolic Rwp686 CO2 29.0 mEq/L 06/05/2015 Comp Metabolic Mpn162 AN ION GAP 13 06/05/2015 Comp Metabolic Exc927 GL UCOSE 85 mg/dL 06/05/2015 Comp Metabolic Unr366 Cr eat 0.7 mg/dL 06/05/2015 Comp Metabolic Oxq000 eG FR 94 ml/min/1.73m2 06/05 Comp Metabolic Xke623 BUN 16 mg/dL 06/05/2015 Comp Metabolic Fvu766 B/ C Ratio 24.2 Ratio 06/05/2015 Comp Metabolic Fen160 CA LCIUM 9.5 mg/dL 06/05/2015 Comp Metabolic Urr892 AL K PHOS 69 U/L 06/05/2015 Comp Metabolic Qna746 T(SGOT) 22 U/L 06/05/2015 Comp Metabolic Qsa569 AL T(SGPT) 26 U/L 06/05/2015 Comp Metabolic Jlv507 BI LI T 0.5 mg/dL 06/05/2015 Comp Metabolic Ztw169 AL BUMIN 4.2 g/dL 06/05/2015 Comp Metabolic Nun676 TP RO 6.1 g/dL 06/05/2015 Comp Metabolic Xut980 GL OB 1.9 g/dL 06/05/2015 Comp Metabolic Wgw509 A/ G Ratio 2.2 Ratio 06/05/2015 Comp Metabolic Lyu563 Os mo 276 mOsmo 06/05/2015 Tsh Ord6 hTSH II 1.99 uIU/mL 06/05/2015 Lipid Ord30 CHOL 171 mg/dL 06/05/2015 Lipid Ord30 HDL 55.0 mg/dl 06/05/2015 Lipid Ord30 TRIG 178 mg/dL 06/05/2015 Lipid Ord30 LDL 80 mg/dL 06/05/2015 Lipid Ord30 C/HDL 3.1 Ratio 06/05/2015 %Hba1C Rgg495 % HbA1c 41761-9 5.7 % 06/05/2015 %Hba1C Pyn217 Gluc Ave 117 mg/dL 06/05/2015 A1C HPLC 3082185 A1C HPLC 29571-6 5.6 % 07/15/2014 GFR CALC 4178912 GFR AA >60 ML/MIN 07/15/2014 GFR CALC 0652379 GFR NON -AA >60 ML/MIN 07/15/2014 CHEM 14 3465121 AST 21 U/L 07/15/2014 CHEM 14 8525519 ALT 23 IU/L 07/15/2014 CHEM 14 5217540 BUN 14 MG/DL 07/15/2014 CHEM 14 3708393 ALBUMIN 4.2 GM/DL 07/15/2014 CHEM 14 0971062 CHLORIDE 104 MMOL/L 07/15/2014 CHEM 14 2398769 BILI TOT 0.4 MG/DL 07/15/2014 CHEM 14 3347933 ALK PHOS 88 U/L 07/15/2014 CHEM 14 8749651 SODIUM 140 MMOL/L 07/15/2014 CHEM 14 4480504 CREATINI NE 0.63 MG/DL 07/15/2014 CHEM 14 4699404 CALCIUM 9.4 MG/DL 07/15/2014 CHEM 14 6200349 POTASSIUM 4.0 MMOL/L 07/15/2014 CHEM 14 5166591 PROT TOT 6.4 GM/DL 07/15/2014 CHEM 14 5080095 GLUCOSE 90 MG/DL 07/15/2014 CHEM 14 8927625 BICARB 30 MMOL/L 07/15/2014 CHEM 14 8948166 ANION GAP 6 MEQ/L 07/15/2014 A1C HPLC 7941328 A1C HPLC 08298-8 6.0 % 04/13/2014 TSH 4746636 TSH 1.875 uIU/ML 04/12/2014 CHEM 14 1817083 AST 17 U/L 04/12/2014 CHEM 14 4849399 ALT 20 IU/L 04/12/2014 CHEM 14 3448389 BUN 14 MG/DL 04/12/2014 CHEM 14 6115752 ALBUMIN 4.2 GM/DL 04/12/2014 CHEM 14 1317221 CHLORIDE 104 MMOL/L 04/12/2014 CHEM 14 0471213 BILI TOT 0.3 MG/DL 04/12/2014 CHEM 14 5547728 ALK PHOS 80 U/L 04/12/2014 CHEM 14 5976286 SODIUM 141 MMOL/L 04/12/2014 CHEM 14 6996456 CREATINI NE 0.62 MG/DL 04/12/2014 CHEM 14 7296072 CALCIUM 9.4 MG/DL 04/12/2014 CHEM 14 9763052 POTASSIUM 3.5 MMOL/L 04/12/2014 CHEM 14 4134727 PROT TOT 6.5 GM/DL 04/12/2014 CHEM 14 8547805 GLUCOSE 89 MG/DL 04/12/2014 CHEM 14 8396296 BICARB 29 MMOL/L 04/12/2014 CHEM 14 2271716 ANION GAP 8 MEQ/L 04/12/2014 LIPID GRP HDL TE ST 59 MG/DL 04/12/2014 LIPID GRP TRIG 177 MG/DL 04/12/2014 LIPID GRP TEST L DL 106 MG/DL 04/12/2014 LIPID GRP CHOL 200 MG/DL 04/12/2014 LIPID GRP RCHOL/ HDL 3.39 RATIO 04/12/2014 CBC 1279063 WBC 4.6 10e9/L 04/12/2014 CBC 9809522 RBC 4.52 10e12/L 04/12/2014 CBC 7290030 HGB 13.1 g/dL 04/12/2014 CBC 9856823 HCT DET 39.2 % 04/12/2014 CBC 0092160 MCV 86.7 fL 04/12/2014 CBC 7876224 MCH 29.0 pg 04/12/2014 CBC 6987933 MCHC 33.4 g/dL 04/12/2014 CBC 7546318 PLT 233 10e9/L 04/12/2014 CBC 9172864 MPV 9.8 fL 04/12/2014 CBC 8460072 AN % 59.5 % 04/12/2014 CBC 1008422 LY % 28.6 % 04/12/2014 CBC 5646977 MON % 10.0 % 04/12/2014 CBC 5822217 EOS % 1.5 % 04/12/2014 CBC 1887535 BASO % 0.4 % 04/12/2014 CBC 4855326 RDW 13.7 % 04/12/2014 CBC 0137905 ABS AN 2.74 10e9/L 04/12/2014 CBC 4857595 ABS LYMPH 1.32 10e9/L 04/12/2014 CBC 7396329 ABS MONO 0.46 10e9/L 04/12/2014 CBC 5676977 ABS EOS 0.07 10e9/L 04/12/2014 CBC 7445544 ABS BASO 0.02 10e9/L 04/12/2014 CBC 9174627 RDW-SD 42.6 fL 04/12/2014 GFR CALC 7888732 GFR AA >60 ML/MIN 04/12/2014 GFR CALC 7041204 GFR NON -AA >60 ML/MIN 04/12/2014 LIPID GRP HDL TE ST 57 MG/DL 08/24/2013 LIPID GRP TRIG 183 MG/DL 08/24/2013 LIPID GRP 5536219 TEST L DL 64 MG/DL 08/24/2013 LIPID GRP 7781656 CHOL 158 MG/DL 08/24/2013 LIPID GRP RCHOL/ HDL 2.77 RATIO 08/24/2013 GFR CALC 9255621 GFR AA >60 ML/MIN 08/24/2013 GFR CALC 2840332 GFR NON -AA >60 ML/MIN 08/24/2013 CHEM 14 3336625 AST 13 U/L 08/24/2013 CHEM 14 2571344 ALT 15 IU/L 08/24/2013 CHEM 14 7111231 BUN 14 MG/DL 08/24/2013 CHEM 14 0651005 ALBUMIN 4.3 GM/DL 08/24/2013 CHEM 14 9927654 CHLORIDE 106 MMOL/L 08/24/2013 CHEM 14 1139189 BILI TOT 0.3 MG/DL 08/24/2013 CHEM 14 5835750 ALK PHOS 75 U/L 08/24/2013 CHEM 14 9359992 SODIUM 141 MMOL/L 08/24/2013 CHEM 14 2270407 CREATINI NE 0.56 MG/DL 08/24/2013 CHEM 14 4340411 CALCIUM 9.1 MG/DL 08/24/2013 CHEM 14 9307849 POTASSIUM 4.2 MMOL/L 08/24/2013 CHEM 14 2116576 PROT TOT 6.0 GM/DL 08/24/2013 CHEM 14 6896646 GLUCOSE 83 MG/DL 08/24/2013 CHEM 14 3378577 BICARB 28 MMOL/L 08/24/2013 CHEM 14 7061108 ANION GAP 7 MEQ/L 08/24/2013 CBC 8064586 WBC 4.7 10e9/L 08/24/2013 CBC 6963031 RBC 4.33 10e12/L 08/24/2013 CBC 9192606 HGB 12.5 g/dL 08/24/2013 CBC 9092423 HCT DET 38.2 % 08/24/2013 CBC 6568709 MCV 88.2 fL 08/24/2013 CBC 2718625 MCH 28.9 pg 08/24/2013 CBC 9854661 MCHC 32.7 g/dL 08/24/2013 CBC 1664761 PLT 218 10e9/L 08/24/2013 CBC 3927261 MPV 10.4 fL 08/24/2013 CBC 8164563 AN % 61.9 % 08/24/2013 CBC 0605762 LY % 24.8 % 08/24/2013 CBC 0258277 MON % 10.3 % 08/24/2013 CBC 8215701 EOS % 2.1 % 08/24/2013 CBC 8201951 BASO % 0.9 % 08/24/2013 CBC 7398591 RDW 14.6 % 08/24/2013 CBC 1698821 ABS AN 2.91 10e9/L 08/24/2013 CBC 7158221 ABS LYMPH 1.17 10e9/L 08/24/2013 CBC 6939634 ABS MONO 0.48 10e9/L 08/24/2013 CBC 9746210 ABS EOS 0.10 10e9/L 08/24/2013 CBC 1844092 ABS BASO 0.04 10e9/L 08/24/2013 CBC 2396138 RDW-SD 46.7 fL 08/24/2013 TSH 4888181 TSH 1.208 uIU/ML 08/24/2013 Review of Systems [...] Formatting Model/CDA Sections, Assigned to/Jen Cota CPT-4: 62547Lmdnfmc 07/28/2018 THER/PROPH/DIAG INJ SC/IM CPT-4: 58568 04/24/2018 TRIAMCINOLONE ACET I [place] NOS CPT-4: J3301 04/24/2018 PPPS, SUBSEQ VISIT CPT- 4: G0439 02/03/2018 TRIAMCINOLONE ACET I [place] NOS CPT-4: J3301 06/23/2017 TRIAMCINOLONE ACET I [place] NOS CPT-4: J3301 03/21/2017 PPPS, SUBSEQ VISIT CPT- 4: G0439 01/22/2017 ADMIN PNEUMOCOCCAL V ACCINE SNOMED CT: [id number] CPT-4: G0009 09/16/2016 Pneumococcal Polysac charide Vaccine, 23-Valent, Ad CPT-4: 64239 09/16/2016 THER/PROPH/DIAG INJ SC/IM CPT-4: 14973 04/04/2016 TRIAMCINOLONE ACET I [place] NOS CPT-4: J3301 04/04/2016 ADMIN INFLUENZA VIRU S VAC CPT-4: G0008 07/28/2015 FLU VACC 4 XIMENA 3 YRS PLUS IM Formatting Model/CDA Sections, Assigned to/Jen Cota SNOMED CT: [id number] CPT-4: 84494Vjngbdy 07/28/2015 TRIAMCINOLONE ACET I [place] NOS CPT-4: J3301 06/12/2015 TRIAMCINOLONE ACET I [place] NOS CPT-4: J3301 05/15/2015 ADMIN INFLUENZA VIRU S VAC CPT-4: G0008 07/19/2014 FLU VAC NO PRSV 4 VA L 3 YRS+ Assigned to/Jen Cota CPT-4: 63824Jbitzux 07/19/2014 TRIAMCINOLONE ACET I [place] NOS CPT-4: J3301 02/02/2014 ROUTINE VENIPUNCTURE CPT-4: 45864 08/24/2013 ADMIN INFLUENZA VIRU S VAC CPT-4: [...] CPT-4: J3301 01/23/2012 THER/PROPH/DIAG INJ SC/IM CPT-4: 18017 01/23/2012 REMOVE IMPACTED EAR WAX UNI CPT-4: 79154 01/02/2012 ROUTINE VENIPUNCTURE CPT-4: 10716 12/20/2011 Vital Signs Date Vital 01/21/2019 Blood Pressure 1: 144/70 Code: 8480-6 BMI: 34.0 Code: 12511-2 Heart Rate 1: 68 bpm Height: 5' SpO2: 97% Temperature: 36.5 (C ) / 97.7 (F) Weight: 177 lbs 10/14/2018 Blood Pressure 1: 150/72 Code: 8480-6 Heart Rate 1: 58 bpm Height: 5' SpO2: 98% Weight: 09/22/2018 Blood Pressure 1: 140/80 Code: 8480-6 BMI: 32.7 Code: 80876-9 Heart Rate 1: 55 bpm Height: 5' SpO2: 98% Weight: 170 lbs 08/17/2018 Blood Pressure 1: 140/76 Code: 8480-6 BMI: 33.0 Code: 53720-8 Heart Rate 1: 60 bpm Height: 5' SpO2: 99% Weight: 172 lbs 06/08/2018 Blood Pressure 1: 136/80 Code: 8480-6 BMI: 33.8 Code: 81646-8 Heart Rate 1: 65 bpm Height: 5' SpO2: 98% Weight: 176 lbs 05/04/2018 Blood Pressure 1: 134/80 Code: 8480-6 BMI: 35.9 Code: 92112-9 Heart Rate 1: 72 bpm Height: 5' SpO2: 94% Weight: 187 lbs 02/04/2018 Blood Pressure 1: 144/76 Code: 8480-6 BMI: 35.0 Code: 30387-1 Heart Rate 1: 64 bpm Height: 5' SpO2: 98% Weight: 182 lbs 02/03/2018 Blood Pressure 1: 136/62 Code: 8480-6 BMI: 35.0 Code: 63155-6 Heart Rate 1: 57 bpm Height: 5' SpO2: 98% Waist Measure (cm): 94 cm Weight: 182 lbs 09/17/2017 Blood Pressure 1: 150/82 Code: 8480-6 BMI: 33.6 Code: 15134-1 Heart Rate 1: 58 bpm Height: 5' SpO2: 98% Weight: 175 lbs 06/23/2017 Blood Pressure 1: 124/66 Code: 8480-6 Heart Rate 1: 65 bpm Height: 5' SpO2: 97% Weight: 05/13/2017 Blood Pressure 1: 128/80 Code: 8480-6 BMI: 32.8 Code: 02493-7 Heart Rate 1: 76 bpm Height: 5' SpO2: 95% Weight: 171 lbs 03/21/2017 Blood Pressure 1: 152/88 Code: 8480-6 Heart Rate 1: 70 bpm Height: SpO2: 98% Weight: 03/19/2017 Blood Pressure 1: 132/64 Code: 8480-6 BMI: 33.0 Code: 50588-2 Heart Rate 1: 64 bpm Height: 5' SpO2: 96% Weight: 172 lbs 01/22/2017 Blood Pressure 1: 120/68 Code: 8480-6 BMI: 33.4 Code: 21036-7 Heart Rate 1: 68 bpm Height: 5' SpO2: 96% Weight: 174 lbs 01/14/2017 Blood Pressure 1: 138/80 Code: 8480-6 BMI: 33.4 Code: 78609-1 Heart Rate 1: 69 bpm Height: 5' SpO2: 98% Weight: 174 lbs 09/23/2016 Blood Pressure 1: 138/70 Code: 8480-6 BMI: 33.6 Code: 79872-6 Heart Rate 1: 68 bpm Height: 5' SpO2: 98% Temperature: 36.4 (C ) / 97.5 (F) Weight: 175 lbs 09/16/2016 Blood Pressure 1: 124/74 Code: 8480-6 BMI: 33.6 Code: 95759-8 Heart Rate 1: 64 bpm Height: 5' SpO2: 97% Weight: 175 lbs 06/25/2016 Weigh t: 174 lbs 06/17/2016 Blood Pressure 1: 128/80 Code: 8480-6 BMI: 34.0 Code: 96268-0 Heart Rate 1: 76 bpm Height: 5' SpO2: 95% Weight: 177 lbs 04/03/2016 Blood Pressure 1: 138/72 Code: 8480-6 BMI: 34.2 Code: 35380-9 Heart Rate 1: 63 bpm Height: 5' SpO2: 96% Weight: 178 lbs 03/13/2016 Blood Pressure 1: 128/72 Code: 8480-6 BMI: 35.3 Code: 03335-0 Heart Rate 1: 71 bpm Height: 5' SpO2: 97% Weight: 184 lbs 01/30/2016 Blood Pressure 1: 134/72 Code: 8480-6 BMI: 35.2 Code: 42909-7 Heart Rate 1: 71 bpm Height: 5' SpO2: 96% Weight: 183 lbs 12/21/2015 Blood Pressure 1: 148/90 Code: 8480-6 BMI: 34.6 Code: 58014-6 Heart Rate 1: 89 bpm Height: 5' SpO2: 96% Weight: 180 lbs 10/09/2015 Blood Pressure 1: 124/76 Code: 8480-6 BMI: 34.6 Code: 77829-4 Heart Rate 1: 88 bpm Height: 5' SpO2: 96% Weight: 180 lbs 06/12/2015 Blood Pressure 1: 148/74 Code: 8480-6 BMI: 33.4 Code: 49952-8 Heart Rate 1: 70 bpm Height: 5' SpO2: 96% Weight: 174 lbs 06/05/2015 Blood Pressure 1: 142/82 Code: 8480-6 BMI: 33.2 Code: 29088-6 Heart Rate 1: 72 bpm Height: 5' Weight: 173 lbs 05/15/2015 Blood Pressure 1: 118/80 Code: 8480-6 BMI: 33.6 Code: 38831-5 Heart Rate 1: 82 bpm Height: 5' Weight: 175 lbs 02/06/2015 Blood Pressure 1: 122/76 Code: 8480-6 BMI: 34.6 Code: 09202-7 Heart Rate 1: 58 bpm Height: 5' Weight: 180 lbs 01/10/2015 Blood Pressure 1: 158/90 Code: 8480-6 Blood Pressure 2: 152/90 Code: 8480-6 BMI: 34.6 Code: 39183-8 Heart Rate 1: 68 bpm Height: 5' Weight: 180 lbs 07/19/2014 Blood Pressure 1: 142/78 Code: 8480-6 BMI: 33.6 Code: 32447-5 Heart Rate 1: 56 bpm Height: 5' Weight: 175 lbs 06/17/2014 Blood Pressure 1: 128/86 Code: 8480-6 Heart Rate 1: 66 bpm SpO2: 98% Weight: 172 lbs 04/19/2014 Blood Pressure 1: 152/82 Code: 8480-6 BMI: 32.5 Code: 73981-6 Heart Rate 1: 60 bpm Height: 5' Weight: 169 lbs 04/11/2014 Blood Pressure 1: 120/80 Code: 8480-6 BMI: 33.4 Code: 95302-8 Heart Rate 1: 64 bpm Height: 5' Weight: 174 lbs 03/10/2014 Blood Pressure 1: 136/64 Code: 8480-6 BMI: 32.7 Code: 02298-8 Heart Rate 1: 76 bpm Height: 5' Weight: 170 lbs 02/02/2014 Blood Pressure 1: 160/76 Code: 8480-6 BMI: 32.7 Code: 61905-5 Heart Rate 1: 64 bpm Height: 5' Weight: 170 lbs 10/25/2013 Blood Pressure 1: 164/82 Code: 8480-6 BMI: 31.9 Code: 28528-9 Heart Rate 1: 60 bpm Height: 5' Weight: 166 lbs 08/24/2013 Blood Pressure 1: 138/88 Code: 8480-6 Heart Rate 1: 80 bpm Weight: 07/26/2013 Blood Pressure 1: 154/70 Code: 8480-6 Heart Rate 1: 72 bpm Weight: 162 lbs 06/30/2013 Blood Pressure 1: 182/86 Code: 8480-6 Heart Rate 1: 80 bpm Weight: 06/24/2013 Blood Pressure 1: 148/68 Code: 8480-6 BMI: 31.3 Code: 07851-2 Heart Rate 1: 72 bpm Height: 5' [...] 1: 142/88 Code: 8480-6 BMI: 30.6 Code: 00602-3 Heart Rate 1: 64 bpm Height: 5' [...] 1: 180/96 Code: 8480-6 BMI: 30.5 Code: 51062-9 Heart Rate 1: 76 bpm Height: 5' Respiratory Rate: 16 bpm Weight: 159 lbs 02/19/2012 Blood Pressure 1: 150/70 Code: 8480-6 Blood Pressure 2: 160/78 Code: 8480-6 Heart Rate 1: 76 bpm Respiratory Rate: 16 bpm Weight: 158 lbs 01/23/2012 Blood Pressure 1: 140/84 Code: 8480-6 BMI: 30.3 Code: 38928-2 Heart Rate 1: 68 bpm Height: 5' Respiratory Rate: 16 bpm SpO2: 98% Temperature: 37.0 (C ) / 98.6 (F) Weight: 158 lbs 01/02/2012 Blood Pressure 1: 142/92 Code: 8480-6 BMI: 30.7 Code: 67864-4 Heart Rate 1: 72 bpm Height: 5' Respiratory Rate: 16 bpm Weight: 160 lbs 12/20/2011 Blood Pressure 1: 170/84 Code: 8480-6 BMI: 30.0 Code: 35461-4 Heart Rate 1: 70 bpm Height: 5' [...] both a nkles 12/01/2012 None hypertension Quality [facility] onic 12/01/2012 None hypertension Onset and Resolution [...] Encounters Encounter Performer Loca tion Codes Date ([id number]) [id number] EST. P ATIENT, LEVEL III Diagnosis: Cough[ICD10: R05] Diagnosis: Acute upper respiratory infection, unspecified[ICD10: J06.9] Kacy Varela MD, [facility] CPT-4: 41171 01/21/2019 ([id number]) 46449 EST. P ATIENT, LEVEL IV Diagnosis: Essential (primary) hypertension[ICD10: I10] Diagnosis: Mixed hyperlipidemia[ICD10: E78.2] Zoya Varela MD, [facility] CPT- 4: 89933 10/14/2018 ([id number]) 78650 EST. P ATIENT, LEVEL III Diagnosis: Essential (primary) hypertension[ICD10: I10] Diagnosis: Other specified cardiac arrhythmias[ICD10: I49.8] Zoya Varela MD, [facility] CPT-4: 62899 09/22/2018 ([id number]) 84948 EST. P ATIENT, LEVEL IV Diagnosis: Essential (primary) hypertension[ICD10: I10] Diagnosis: Allergic rhinitis due to pollen[ICD10: J30.1] Diagnosis: Sciatica, right side[ICD10: M54.31] Zoya Varela MD, [facility] CPT- 4: 46171 08/17/2018 ([id number]) 39042 EST. 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 P ATIENT, LEVEL III Diagnosis: Acute upper respiratory infection, unspecified[ICD10: J06.9] Kacy Varela MD, [facility] CPT-4: 89194 05/04/2018 ([id number]) 91235 EST. P ATIENT, LEVEL IV Diagnosis: Essential (primary) hypertension[ICD10: I10] Diagnosis: Type 2 diabetes mellitus without complications[ICD10: E11.9] Diagnosis: Mixed hyperlipidemia[ICD10: E78.2] Diagnosis: Localized edema[ICD10: R60.0] Zoya Varela MD, [facility] CPT-4: 31319 02/04/2018 ([id number]) 14737 EST. P ATIENT, LEVEL IV Diagnosis: Essential (primary) hypertension[ICD10: I10] Zoya Varela MD, [facility] CPT-4: 39641 09/17/2017 ([id number]) 83609 EST. P ATIENT, LEVEL III Diagnosis: Allergic contact dermatitis due to plants, except food[ICD10: L23.7] Kacy Varela MD, [facility] CPT-4: 95833 06/23/2017 ([id number]) 41580 EST. P ATIENT, LEVEL IV Diagnosis: Essential (primary) hypertension[ICD10: I10] Diagnosis: Mixed hyperlipidemia[ICD10: E78.2] Zoya Varela MD, [facility] CPT- 4: 38533 05/13/2017 ([id number]) 12173 EST. P ATIENT, LEVEL III Diagnosis: Allergic contact dermatitis due to plants, except food[ICD10: L23.7] Kacy Varela MD, [facility] CPT-4: 97108 03/21/2017 21185 EST. PATIENT, LEVEL III Diagnosis: Bitten or stung by nonvenomous insect and other nonvenomous arthropods, initial encounter[ICD10: W57.XXXA] Diagnosis: Cellulitis of left lower limb[ICD10: L03.116] Laura Varela MD, [facility] CPT-4: 51902 03/19/2017 ([id number]) 86752 EST. P ATIENT, LEVEL IV Diagnosis: Type 2 diabetes mellitus without complications[ICD10: E11.9] Diagnosis: Essential (primary) hypertension[ICD10: I10] Diagnosis: Other specified epidermal thickening[ICD10: L85.8] Zoya Varela MD, [facility] CPT-4: 99213 01/14/2017 30488 EST. PATIENT, LEVEL III Diagnosis: Glossodynia[ICD10: K14.6] Kacy Varela MD, [facility] CPT- 4: 29790 09/23/2016 ([id number]) 63046 EST. P ATIENT, LEVEL IV Diagnosis: Encounter for screening mammogram for malignant neoplasm of breast[ICD10: Z12.31] Diagnosis: Encounter for immunization[ICD10: Z23] Zoya Varela MD, [facility] CPT-4: 98388 09/16/2016 ([id number]) 08536 EST. P ATIENT, LEVEL III Diagnosis: Diseases of lips[ICD10: K13.0] Diagnosis: Allergic rhinitis due to pollen[ICD10: J30.1] Kacy Varela MD, [facility] CPT-4: 29537 06/25/2016 ([id number]) 57396 EST. P ATIENT, LEVEL III Diagnosis: Essential (primary) hypertension[ICD10: I10] Kacy Varela MD, [facility] CPT-4: 64253 06/17/2016 47841 EST. PATIENT, LEVEL IV Diagnosis: Other acute sinusitis[ICD10: J01.80] Diagnosis: Acute laryngopharyngitis[ICD10: J06.0] Diagnosis: Other allergic rhinitis[ICD10: J30.89] Laura Varela MD, [facility] CPT-4: 97486 04/03/2016 ([id number]) 36527 EST. P ATIENT, LEVEL IV Diagnosis: Essential (primary) hypertension[ICD10: I10] Diagnosis: Localized edema[ICD10: R60.0] Diagnosis: Polyneuropathy, unspecified[ICD10: G62.9] Zoay Varela MD, [facility] CPT-4: 06077 03/13/2016 ([id number]) 49227 EST. P ATIENT, LEVEL IV Diagnosis: Essential (primary) hypertension[ICD10: I10] Diagnosis: Localized edema[ICD10: R60.0] Diagnosis: Type 2 diabetes mellitus without complications[ICD10: E11.9] Zoya Varela MD, [facility] CPT-4: 07981 01/30/2016 79702 EST. PATIENT, LEVEL IV Diagnosis: Localized edema[ICD10: R60.0] Laura Varela MD, [facility] CPT-4: 62539 12/21/2015 ([id number]) 02007 EST. P ATIENT, LEVEL III Diagnosis: Essential (primary) hypertension[ICD10: I10] Diagnosis: Allergic rhinitis due to pollen[ICD10: J30.1] Diagnosis: Cervicalgia[ICD10: M54.2] Kacy Varela MD, [facility] CPT- 4: 53158 10/09/2015 30186 EST. PATIENT, LEVEL II Diagnosis: Contact dermatitis[ICD9: 692.9] Kacy Varela MD, [facility] CPT- 4: 41276 06/12/2015 ([id number]) 22690 EST. P ATIENT, LEVEL III Diagnosis: ESSENTIAL HYPERTENSION[ICD9: 401.9] Diagnosis: DIABETES TYPE II[ICD9: 250.00] Diagnosis: Anxiety[ICD9: 300.00] Kacy Varela MD, [facility] CPT-4: 20300 06/05/2015 ([id number]) 05593 EST. P ATIENT, LEVEL IV Diagnosis: Anxiety[ICD9: 300.00] Diagnosis: ALLERGIC RHINITIS[ICD9: 477.9] Diagnosis: ESOPHAGEAL REFLUX[ICD9: 530.81] Kacy Varela MD, [facility] CPT- 4: 47603 05/15/2015 ([id number]) 18098 EST. P ATIENT, LEVEL III Diagnosis: ESSENTIAL HYPERTENSION[ICD9: 401.9] Zoya Varela MD, [facility] CPT- 4: 42597 02/06/2015 ([id number]) 94541 EST. P ATIENT, LEVEL IV Diagnosis: ESSENTIAL HYPERTENSION[ICD9: 401.9] Diagnosis: EDEMA[ICD9: 782.3] Diagnosis: DIABETES TYPE II[ICD9: 250.00] Zoya Varela MD, [facility] CPT-4: 96634 01/10/2015 ([id number]) 80310 EST. P ATIENT, LEVEL IV Diagnosis: ESSENTIAL HYPERTENSION[ICD9: 401.9] Diagnosis: DIABETES TYPE II[ICD9: 250.00] Zoya Varela MD, [facility] CPT-4: 45691 07/19/2014 ([id number]) 50311 EST. P ATIENT, LEVEL III Diagnosis: Left ankle pain[ICD9: 719.47] Kacy Varela MD, [facility] CPT- 4: 05873 06/17/2014 ([id number]) 64796 EST. P ATIENT, LEVEL III Diagnosis: ESSENTIAL HYPERTENSION[ICD9: 401.9] Diagnosis: Elevated blood sugar[ICD9: 790.29] Zoya Varela MD, [facility] CPT- 4: 41524 04/19/2014 ([id number]) 88322 EST. P ATIENT, LEVEL IV Diagnosis: ESSENTIAL HYPERTENSION[SNOMED: 78422534] Diagnosis: ESOPHAGEAL REFLUX[ICD9: 530.81] Zoya Varela MD, [facility] CPT-4: 71437 04/11/2014 ([id number]) 22531 EST. P ATIENT, LEVEL IV Diagnosis: ALLERGIC RHINITIS[ICD9: 477.9] Diagnosis: Anxiety[ICD9: 300.00] Diagnosis: Dyspnea[ICD9: 786.09] Diagnosis: ESOPHAGEAL REFLUX[ICD9: 530.81] Kacy Varela MD, [facility] CPT- 4: 20628 03/10/2014 ([id number]) 20748 EST. P ATIENT, LEVEL III Diagnosis: ALLERGIC RHINITIS[ICD9: 477.9] Diagnosis: ESSENTIAL HYPERTENSION[SNOMED: 44073839] Kacy Varela MD, [facility] CPT-4: 87727 02/02/2014 ([id number]) 36652 EST. P ATIENT, LEVEL III Diagnosis: ESSENTIAL HYPERTENSION[SNOMED: 67249636] Diagnosis: Skin irritation[ICD9: 709.9] Zoya Varela MD, [facility] CPT-4: 19078 10/25/2013 ([id number]) 14472 EST. P ATIENT, LEVEL III Diagnosis: HYPERLIPIDEMIA[ICD9: 272.4] Diagnosis: ESSENTIAL HYPERTENSION[SNOMED: 65840687] Diagnosis: EDEMA[ICD9: 782.3] Diagnosis: Encounter for long-term (current) use of other medications[ICD9: V58.69] Zoya Varela MD, [facility] CPT-4: 29981 08/24/2013 ([id number]) 64356 EST. P ATIENT, LEVEL III Diagnosis: ESSENTIAL HYPERTENSION[SNOMED: 70174267] Zoya Varela MD, C CPT-4: 84698 07/26/2013 ([id number]) 50248 EST. P ATIENT, LEVEL III Diagnosis: ESSENTIAL HYPERTENSION[SNOMED: 20418508] Zoya Varela MD, C CPT-4: 49758 06/30/2013 ([id number]) 62369 EST. P ATIENT, LEVEL III Diagnosis: ESSENTIAL HYPERTENSION[SNOMED: 77177944] Zoya Varela MD, C CPT-4: 18486 06/24/2013 ([id number]) 09092 EST. P ATIENT, LEVEL IV Diagnosis: ESSENTIAL HYPERTENSION[SNOMED: 17193286] Diagnosis: Leg pain[ICD9: 729.5] Diagnosis: Leg swelling[ICD9: 729.81] Zoya Varela MD, [facility] CPT-4: 68122 12/01/2012 ([id number]) 75293 EST. P ATIENT, LEVEL III Diagnosis: Shingles[ICD9: 053.9] Zoya Varela MD, [facility] CPT-4: 04831 10/19/2012 ([id number]) 02469 EST. P ATIENT, LEVEL IV Diagnosis: EDEMA[ICD9: 782.3] Diagnosis: ESSENTIAL HYPERTENSION[SNOMED: 83547436] Zoya Varela MD, C CPT-4: 72277 10/07/2012 ([id number]) 00720 EST. P ATIENT, LEVEL IV Diagnosis: ESSENTIAL HYPERTENSION[SNOMED: 64741218] Diagnosis: EDEMA[ICD9: 782.3] Diagnosis: Irritable bowel disease[ICD9: 564.1] Zoya Varela MD, [facility] CPT-4: 76883 2012 ([id number]) 75725 EST. P ATIENT, LEVEL III Diagnosis: ESSENTIAL HYPERTENSION[SNOMED: 18939528] Zoya Varela MD, [facility] CPT-4: 19424 08/18/2012 ([id number]) 69669 EST. P ATIENT, LEVEL III Diagnosis: ESSENTIAL HYPERTENSION[SNOMED: 77894591] Zoya Varela MD, [facility] CPT-4: 95655 08/04/2012 ([id number]) 12749 EST. P ATIENT, LEVEL IV Diagnosis: ESSENTIAL HYPERTENSION[SNOMED: 95626580] Diagnosis: Lumbago[ICD9: 724.2] Diagnosis: HYPERLIPIDEMIA[ICD9: 272.4] Zoya Varela MD, [facility] CPT-4: 70053 07/01/2012 ([id number]) 29167 EST. P ATIENT, LEVEL III Diagnosis: ESSENTIAL HYPERTENSION[SNOMED: 25041236] Zoya Varela MD, [facility] CPT-4: 22562 05/20/2012 ([id number]) 34056 EST. P ATIENT, LEVEL IV Diagnosis: ESSENTIAL HYPERTENSION[SNOMED: 40074391] Diagnosis: Hot flash, menopausal[ICD9: 627.2] Zoya Varela MD, [facility] CPT- 4: 14699 04/20/2012 36319 EST. PATIENT, LEVEL IV Diagnosis: SPASM OF MUSCLE[ICD9: 728.85] Diagnosis: Back pain[ICD9: 724.5] Diagnosis: ESSENTIAL HYPERTENSION[SNOMED: 37189407] Zoya Varela MD, [facility] CPT-4: 72881 03/10/2012 ([id number]) 03467 EST. 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 P ATIENT, LEVEL III Diagnosis: ESSENTIAL HYPERTENSION[SNOMED: 40137298] Zoya Varela MD, [facility] CPT-4: 67725 02/19/2012 19414 EST. PATIENT, LEVEL IV Diagnosis: ESSENTIAL HYPERTENSION[SNOMED: 32895008] Diagnosis: Cough[ICD9: 786.2] Kacy Varela MD, [facility] CPT-4: 71919 01/23/2012 ([id number]) 55660 EST. P ATIENT, LEVEL IV Diagnosis: HYPERLIPIDEMIA[ICD9: 272.4] Diagnosis: ESSENTIAL HYPERTENSION[SNOMED: 78565486] Zoya Varela MD, [facility] CPT-4: 55166 01/02/2012 OFFICE VISIT, NEW - LEVEL 4 Diagnosis: ESSENTIAL HYPERTENSION[SNOMED: 85900968] Diagnosis: HYPERLIPIDEMIA[ICD9: 272.4] Diagnosis: IMPACTED CERUMEN[ICD9: 380.4] Diagnosis: Muscle spasm[ICD9: 728.85] Diagnosis: CHRONIC TENSION HEADACHE[ICD9: 339.12] Diagnosis: Neck pain, chronic[ICD9: 723.1] Diagnosis: Change in skin mole[ICD9: 216.9] Zoya Varela MD, [facility] CPT-4: 06711 12/20/2011 Plan of Care Planned Activity Notes [...] of plan. 01/21/2019 Appointment: Kacy Moses WPtel: [phone] (15 min) Moderate 01/21/2019 Patient Education: Patient Medication Summary Completed 01/21/2019 Appointment: Zoay Varela WPtel: [facility] (15 min) Moderate 12/15/2018 Visit Plan: Hypertension [...] medications. 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 09/22/2018 Appointment: Zoya Varela WPtel: [phone] [phone] (15 min) Moderate 09/22/2018 Patient Education: Patient Medication Summary Completed 09/22/2018 Appointment: Zoya Varela WPtel: [phone] [phone] (15 min) Moderate 09/09/2018 Visit Plan: Hypertension [...] she can be seen by Oncology in [place]. 06/08/2018 Appointment: [facility]el[phone] [place] (15 min) Moderate 06/08/2018 Patient Education: Patient Medication Summary Completed 06/08/2018 Visit Plan: URI - Pt advised to inc rease fluids, vitamin C. Discussed natural and expected course of this diagnosis and need to alert me if symptoms do not follow expected course, or if any worse. RX sent to patient's pharmacy. 05/04/2018 Appointment: [phone] [place] (30 min) Complex 05/04/2018 Patient [...] lower extremities. 02/04/2018 Appointment: Zoya Varela WPtel: [facility] (15 min) Moderate 02/04/2018 Patient Education: Patient [...] Laura Velasco WPtel: [facility] [facility] - Annual Wellness Visit 01/28/2018 Appointment: Zoya Varela WPtel: [address] [place], [place] [phone] (15 min) Moderate 01/15/2018 Visit Plan: Hypertension [...] Dr. Madison. 09/17/2017 Appointment: Zoya Varela WPtel: [phone] [phone] (15 min) Moderate 09/17/2017 Patient Education: Patient Medication Summary Completed 09/17/2017 Patient Education: Obesity Completed 09/17/2017 Patient Education: Hypertension Completed 09/17/2017 Care Plan: [facility] [address]104-3 Pending 09/17/2017 Visit Plan: Poison Sarah -kenalog inj ection today in the office-start prednisone tomorrow pt is to use topical treatments as directed. Pt is cleanse clothing in hot water with soap, and call if symptoms do not improve or if they worsen. 06/23/2017 Appointment: Kacy Moses WPtel: [phone] [phone] [place] (15 min) Moderate 06/23/2017 Patient [...] medications. 05/13/2017 Appointment: [facility]Ptel[phone] (15 min) Moderate 05/13/2017 Patient Education: Patient [...] they worsen. 03/21/2017 Appointment: Kacy Moses WPtel: [phone] (15 min) Moderate 03/21/2017 Patient Education: [...] Laura Velasco WPtel: [facility] (15 min) Moderate 03/19/2017 Patient Education: [...] Appointment: Laura Velasco WPtel: [facility] [facility] - Annual Wellness Visit 01/22/2017 Appointment: Nurse [...] home. 01/14/2017 Appointment: Zoya Varela WPtel: [phone] [phone] (15 min) Moderate 01/14/2017 Patient Education: Patient [...] plan. 09/23/2016 Appointment: Kacy Moses WPtel: [phone] [phone] (15 min) Moderate 09/23/2016 Patient Education: [...] medications. 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 06/25/2016 Appointment: Kacy Moses WPtel: [phone] [phone] [place] (15 min) Moderate 06/25/2016 Patient [...] allergy spray. 04/03/2016 Appointment: Kacy Moses WPtel: [phone] (30 min) Complex 04/03/2016 Patient Education: [...] Hypertension Completed 03/13/2016 Appointment: Zoya Varela WPtel: [facility] (15 min) Moderate 02/28/2016 Appointment: Zoya Varela WPtel: [facility] (15 min) Moderate 02/01/2016 Visit Plan: Hypertension [...] for treatment. 01/30/2016 Appointment: Zoya Varela WPtel: [address] [place] [address] (15 min) Moderate 01/30/2016 Patient Education: Patient [...] at home. 02/06/2015 Appointment: Zoya Varela WPtel: [facility] Follow up 02/06/2015 Patient Education: Patient Medication [...] peripheral edema. 01/10/2015 Appointment: Zoya Varela WPtel: [facility] Sick 01/10/2015 Patient Education: Patient Medication Summary [...] less controlled. 07/19/2014 Appointment: Zoya Varela WPtel: [facility] Follow up 07/19/2014 Patient Education: Patient Medication Summary Completed 07/19/2014 Patient Education: Hypertension Completed 07/19/2014 Care Plan: SCRE[employer]AMMOGRAPHYDIGITAL [employer] : 79989-7 Ordered 07/19/2014 Visit Plan: Left ankle pain-sprain- [...] at home. 04/19/2014 Appointment: Josué Kacy WPtel: [phone] Diabetic education 04/19/2014 Patient Education: Patient [...] medications. 04/11/2014 Appointment: Zoya Varela WPtel: [phone] Follow up 04/11/2014 Patient Education: Patient Medication [...] spray in the nasal steroid allergy spray. Tqhmmcn-vqdgfdwfcoui-wfscmrz xanax at bedtime Esophageal Reflux - the patient has been counseled against excessive intake of caffiene, spicy foods, peppermint, and cinnamon - all of which can exacerbate esophageal reflux. The patient is to take medications as prescribed and call the office if the symptoms are not improving. 03/10/2014 Appointment: Nichole Zoya WPtel: [phone] Other 03/10/2014 Patient Education: Patient Medication Summary [...] Appointment: Kacy Moses WPtel: [phone] [phone] [place] Other 02/02/2014 Patient Education: Patient [...] site. 10/25/2013 Appointment: Zoya Varela WPtel: [phone] [phone] Follow up 10/25/2013 Patient Education: Patient Medication [...] AT BEDTIME 08/24/2013 Appointment: Zoya Varela WPtel: [phone] Follow up 08/24/2013 Patient Education: Patient Medication [...] acute concerns. 07/26/2013 Appointment: Zoya Varela WPtel: [facility] Follow up 07/26/2013 Patient Education: Patient Medication [...] Zoya Varela WPtel: [facility] [place] Other 06/30/2013 Patient Education: Patient Medication [...] Kacy Moses WPtel: [phone] Follow up 06/24/2013 Patient Education: Patient Medication Summary Completed 06/24/2013 Patient Education: Hypertension Completed 06/24/2013 Appointment: Zoya Varela WPtel: [address] [place], [place] [phone] Other 03/23/2013 Visit Plan: Hypotension - pt is on chronic antihypertensive medication - the medication has been adjusted down to attempt to alleviate the low blood pressures. Leg pain - Leg swelling - pt to have ultrasound on her right lower leg due to post-operative swelling and pain. 12/01/2012 Appointment: Zoya Varela WPtel: [address] [place], [place] [phone] Follow up 12/01/2012 Patient Education: Patient Medication Summary Completed 12/01/2012 Patient Education: Hypertension Completed 12/01/2012 Appointment: Zoya Varela WPtel: [address] [place], [place] [phone] Follow up 10/20/2012 Visit Plan: Shingles - [...] considered contagious. 10/19/2012 Appointment: Zoya Varela WPtel: [address] [place], [place] [phone] Other 10/19/2012 Patient Education: Patient Medication Summary [...] peripheral edema. 10/07/2012 Appointment: Kacy Moses WPtel: [phone] Other 10/07/2012 Patient Education: Hypertension Completed [...] edema. 2012 Appointment: Zoya Varela WPtel: [phone] Other 2012 Patient Education: Patient Medication Summary [...] THE EVENING. 08/18/2012 Appointment: Zoya [facility]arela [facility]Ptel: [phone] Follow up 08/18/2012 Patient Education: Patient Medication [...] the knees. 08/04/2012 Appointment: Zoya Varela WPtel: [facility] [place] Follow up 08/04/2012 Patient Education: Patient [...] twice daily. 07/01/2012 Appointment: Zoya Varela WPtel: [address] [place], [place] [phone] Other 07/01/2012 Patient Education: Patient Medication Summary [...] two weeks 05/20/2012 Appointment: Zoya Varela WPtel: [address] [place], [place] [phone] [place] Follow up 05/20/2012 Patient Education: Patient Medication Summary Completed 05/20/2012 Patient Education: High Blood Pressure: Essential Hypertension Completed 05/20/2012 Appointment: Zoya Varela WPtel: [phone] [place] Other 05/11/2012 Visit Plan: Hypertension - [...] dosing. 04/20/2012 Appointment: Zoya Varela WPtel: [phone] Follow up 04/20/2012 Patient Education: Patient Medication [...] few weeks. 03/10/2012 Appointment: Zoya Varela WPtel: [phone] Other 03/10/2012 Patient Education: Patient Medication Summary [...] codeine. 02/25/2012 Appointment: Zoya Varela WPtel: [phone] Other 02/25/2012 Patient Education: Patient Medication [...] the office. 02/19/2012 Appointment: Zoya Varela WPtel: [phone] Other 02/19/2012 Patient Education: Patient Medication Summary [...] office 01/23/2012 Appointment: [facility]el[phone] Other 01/23/2012 Patient Education: Patient Medication [...] DAILY. 01/02/2012 Appointment: [facility]Ptel: [phone] [place] 01/02/2012 Patient Education: Patient Medication Summary [...] 2 wks. 12/20/2011 Appointment: Zoya Varela WPtel: [address] [place] [address] New Patient 12/20/2011 Patient Education: Patient Medication [...] due to post-operative swelling and pain. . Low back pain- the patient was [...] blood pressure readings in a few weeks. Biotene OTC Decrease dose of Lyrica to [...] IN MORNING TOPROL 2 PILLS AT BEDTIME INCREASE YOUR METOPR OLOL TARTATE 100MG TO [...] call for acute concerns. . Hypertension - [facility] ontrolled - the [...] cream to the site. . Hypertension - [facility] ontrolled - the patient's medications have been [...] to assure normal liver response to medications. decrease the metopro lol to one pill [...] metoprolol, will have pt go see her fruit or nut grower as we may need to consider stopping [...] in blood pressure readings at home. . Diabetes Mellitus - controlled - per [...] in blood pressure readings at home. . Elevated blood sug ars-diabetes and diet [...] application on the knees. . Hypertension - wel l controlled - [...] her DOPA paperwork for health care surrogate. Evelio Sandraion - The impacted cerumen was removed with [...] she can be seen by Oncology in [place]. RESTART XANAX 1/2 TA B AT BEDTIME [...] spray in the nasal steroid allergy spray. Ulfpezg-ttxitoznkpws-mvhgijp xanax at bedtime Esophageal Reflux - the patient has been counseled against excessive intake of caffiene, spicy foods, peppermint, and cinnamon - all of which can exacerbate esophageal reflux. The patient is to take medications as prescribed and call the office if the symptoms are not improving. take the carafate as a liquid - [...]
--- OUTSIDE RECORDS SUMMARY | 2020-05-26 03:27 | XMS REPORT | CCD ---
Author Author Natali Varela Organization Zoya Varela MD, [facility] Address [address] [place] [address] Phone Care Team Providers Care Welt Stitcher Name Role Phone PP Unavailable CCM Unavailable Summary Purpose Interface Exchange Insurance Providers Payer name Policy type / Coverage type Covered libertarian ID Effective Begin Date Effective End Date WPS Medicare Part B Medicare Part B [id number] Unknown [employer] Medicare Part B [id number] Unknown Family history Mother Diagnosis Age At Onset Liver Failure Unknown Diabetes mellitus Type 2 Unknown Hyperlipidemia Unknown Hypertension Unknown Cancer Unknown Arthritis Unknown Father Diagnosis Age At Onset Liver Failure Unknown Cancer Unknown Social History Social History Element Codes Description Effective Dates Marital status Unknown M arried 12/12/2011 Number of children Unknown 3 12/12/[address]: 3951044 Former smoker quit in 199212/12/2011 Allergies, Adverse [...] Date Stop Date Sta tus Fill Instructions doxazosin 4 mg tablet RxNorm: 718193 Tablet(s) TAKE ONE TABLET BY MOUTH TWO T IMES A DAY 01/21/2019 No Stop Date Active doxazosin 4 mg tablet RxNorm: 676832 Tablet(s) TAKE ONE AND ONE-HALF (1 & 1/2 ) TABLET BY MOUTH BY MOUTH TWO TIMES A DAY 11/12/2018 01/20/2019 Inactive cyclobenzaprine 10 m g tablet RxNorm: 530681 TAKE ONE TABLET BY MO UT EVERY 8 HOURS NEEDED 11/12/2018 12/01/2018 Inactive tramadol 50 mg tablet RxNorm: 281821 1-2 Tablet(s) PO Q8 as needed 10/02/2018 11/30/2018 In active metoprolol tartrate 100 mg tablet RxNorm: 669409 1 Tablet(s) BID 09/22/2018 09/20/2019 Active metoprolol tartrate 100 mg tablet RxNorm: 219495 TAKE ONE AND ONE-HALF (1 1/2) TABLETS BY MOUTH EVERY MORNING AND TAKE TWO TABLETS BY MOUTH EVERY EVENING 09/21/2018 09/21/2018 In active Xanax 0.25 mg tablet RxNorm: 352546 1/2-1 Tablet(s) PO QDAY PRN 08/19/2018 11/16/2018 Inactive cyclobenzaprine 10 m g tablet RxNorm: 528205 TAKE ONE TABLET BY MO UT EVERY 8 HOURS NEEDED 07/01/2018 08/09/2018 Inactive atorvastatin 20 mg t ablet RxNorm: 830458 TAKE ONE TABLET BY MO UT DAILY 06/29/2018 12/25/2018 In active atorvastatin 20 mg t ablet RxNorm: 102134 TAKE ONE TABLET BY MO UT DAILY 06/29/2018 06/28/2018 In active pilocarpine 5 mg tablet RxNorm: 8109535 1 Tablet(s) PO BID 06/09/2018 06/08/2018 Inactive pilocarpine 5 mg tablet RxNorm: 9001152 1 Tablet(s) PO BID for dry mouth 06/09/2018 09/21/2018 In active Evoxac 30 mg capsule RxNorm: 245135 1 Capsule(s) PO BID as needed dry mouth 06/08/2018 06/08/2018 In active may substitute generic cyclobenzaprine 10 m g tablet RxNorm: 077895 TAKE ONE TABLET BY MO UT EVERY 8 HOURS NEEDED 05/14/2018 06/30/2018 Inactive amoxicillin 500 mg c apsule RxNorm: 537957 1 Capsule(s) PO BID 05/04/2018 05/13/2018 Inactive amoxicillin 500 mg c apsule RxNorm: 924563 1 Capsule(s) PO BID 05/04/2018 05/03/2018 Inactive tramadol 50 mg tablet RxNorm: 891256 1-2 Tablet(s) PO Q8 as needed 04/24/2018 06/21/2018 In active Kenalog 40 mg/mL sylvia pension for injection RxNorm: 1043339 Milliliter(s) Inj 04/24/2018 04/24/2018 In active amlodipine 5 mg tablet RxNorm: 138002 Tablet(s) TAKE ONE TABLET BY MOUTH DAILY 04/02/2018 03/27/2019 Ac tive Xanax 0.25 mg tablet RxNorm: 161662 1/2-1 Tablet(s) PO QDAY PRN 04/02/2018 10/13/2018 Inactive metoprolol tartrate 100 mg tablet RxNorm: 400722 TAKE ONE AND ONE-HALF (1 1/2) TABLETS BY MOUTH EVERY MORNING AND TAKE TWO TABLETS BY MOUTH EVERY EVENING 02/25/2018 09/20/2018 In active Keflex 500 mg capsule RxNorm: 051549 1 Capsule(s) PO TID 02/06/2018 02/15/2018 Inactive Keflex 500 mg capsule RxNorm: 978088 1 Capsule(s) PO TID 02/06/2018 02/05/2018 Inactive Zithromax Z-Kush 250 mg tablet RxNorm: 188180 1 Tablet(s) PO UD 02/02/2018 02/06/2018 Inactive 2 tabs on day 1 then 1 tab daily on days 2-5 doxazosin 4 mg tablet RxNorm: 207233 TAKE ONE AND ONE-HALF (1 & 1/2) TABLET B Y MOUTH BY MOUTH TWO TIMES A DAY 01/16/2018 11/11/2018 Inactive atorvastatin 20 mg t ablet RxNorm: 599238 TAKE ONE TABLET BY MO UTH DAILY 12/31/2017 06/28/2018 In active furosemide 20 mg tablet RxNorm: 685703 TAKE ONE TABLET BY MOUTH DAILY NEEDED FOR EDEMA 12/26/2017 06/23/2018 Inactive potassium chloride E R 10 mEq tablet,extended release RxNorm: 745944 TAKE ONE TABLET BY MOUTH NEEDED WITH LASIX 12/26/2017 06/23/2018 Inactive Xanax 0.25 mg tablet RxNorm: 652547 1/2-1 Tablet(s) PO QDAY PRN 11/27/2017 08/18/2018 Inactive cyclobenzaprine 10 m g tablet RxNorm: 927785 TAKE ONE TABLET BY MO UTH EVERY 8 HOURS NEEDED 11/21/2017 02/08/2018 Inactive tramadol 50 mg tablet RxNorm: 059917 1-2 Tablet(s) PO Q8 as needed 10/28/2017 01/23/2018 In active metoprolol tartrate 100 mg tablet RxNorm: 179985 TAKE ONE AND ONE-HALF (1 1/2) TABLETS BY MOUTH EVERY MORNING AND TAKE TWO TABLETS BY MOUTH EVERY EVENING 10/28/2017 02/24/2018 In active cyclobenzaprine 10 m g tablet RxNorm: 113718 TAKE ONE TABLET BY MO UTH EVERY 8 HOURS NEEDED 08/27/2017 10/25/2017 Inactive Xanax 0.25 mg tablet RxNorm: 210515 1/2-1 Tablet(s) PO QDAY PRN 08/04/2017 04/01/2018 Inactive cyclobenzaprine 10 m g tablet RxNorm: 852509 TAKE ONE TABLET BY MO UTH EVERY 8 HOURS NEEDED 07/28/2017 08/16/2017 Inactive metoprolol tartrate 100 mg tablet RxNorm: 960270 TAKE ONE AND ONE-HALF (1 & 1/2) TABLET BY MOUTH EVERY MORNING AND TAKE TWO TABLETS BY MOUTH EVERY EVENING 07/28/2017 10/25/2017 In active cyclobenzaprine 10 m g tablet RxNorm: 362038 TAKE ONE TABLET BY MO UTH EVERY 8 HOURS NEEDED 06/30/2017 07/19/2017 Inactive prednisone 10 mg tab lets in a dose pack RxNorm: 354915 1 Tablet(s) PO UD 06/23/2017 06/28/2017 In active 6-5-4-3-2-1 mupirocin 2 % topica l ointment RxNorm: 311213 1 Application TOP BID 06/23/2017 07/02/2017 Inactive Kenalog 40 mg/mL sylvia pension for injection RxNorm: 3018716 Milliliter(s) Inj 06/23/2017 06/23/2017 In active cyclobenzaprine 10 m g tablet RxNorm: 366826 TAKE ONE TABLET BY MO UTH EVERY 8 HOURS NEEDED 06/09/2017 06/28/2017 Inactive meclizine 25 mg tablet RxNorm: 076201 1 Tablet(s) PO Q6 PRN as needed 1/2 - 1 pill every 6 hours as needed for vertigo 06/03/2017 07/14/2017 Inactive atorvastatin 20 mg t ablet RxNorm: 149224 TAKE ONE TABLET BY MO UTH DAILY 05/30/2017 11/25/2017 In active amlodipine 5 mg tablet RxNorm: 462561 TAKE ONE TABLET BY MOUTH DAILY 05/15/2017 04/01/2018 In active cyclobenzaprine 10 m g tablet RxNorm: 406544 TAKE ONE TABLET BY MO UTH EVERY 8 HOURS NEEDED 05/07/2017 05/26/2017 Inactive tramadol 50 mg tablet RxNorm: 052577 1-2 Tablet(s) PO Q8 as needed 04/07/2017 07/04/2017 In active cyclobenzaprine 10 m g tablet RxNorm: 734864 TAKE ONE TABLET BY MO UTH EVERY 8 HOURS NEEDED 04/07/2017 04/26/2017 Inactive Xanax 0.25 mg tablet RxNorm: 166505 1/2-1 Tablet(s) PO QDAY PRN 04/04/2017 06/02/2017 Inactive metoprolol tartrate 100 mg tablet RxNorm: 495973 TAKE ONE AND ONE-HALF (1 & 1/2) TABLET BY MOUTH EVERY MORNING AND TAKE TWO TABLETS BY MOUTH EVERY EVENING 03/28/2017 07/25/2017 In active prednisone 10 mg tab lets in a dose pack RxNorm: 817850 1 Tablet(s) PO UD 03/21/2017 03/26/2017 In active 6-5-4-3-2-1 Kenalog 40 mg/mL sylvia pension for injection RxNorm: 4904503 2 Milliliter(s) Inj 03/21/2017 03/21/2017 In active doxycycline hyclate 100 mg capsule RxNorm: 8964966 1 Capsule(s) PO BID 03/19/2017 03/28/2017 In active cyclobenzaprine 10 m g tablet RxNorm: 580929 TAKE ONE TABLET BY MO UTH EVERY 8 HOURS NEEDED 02/25/2017 03/16/2017 Inactive triamcinolone aceton pineda 0.1 % topical ointment RxNorm: 7735962 1 Application TOP TI D 02/21/2017 02/20/2017 Inactive triamcinolone aceton pineda 0.1 % topical ointment RxNorm: 9687371 1 Application TOP TI D 02/21/2017 03/02/2017 Inactive doxazosin 4 mg tablet RxNorm: 338089 TAKE ONE AND ONE-HALF (1 & 1/2) TABLET B Y MOUTH BY MOUTH TWO TIMES A DAY 02/14/2017 01/09/2018 Inactive cyclobenzaprine 10 m g tablet RxNorm: 935174 TAKE ONE TABLET BY [facility] EVERY 8 HOURS NEEDED 01/27/2017 02/15/2017 Inactive ammonium lactate 12 % topical cream RxNorm: 912554 1 Application TOP BID 01/14/2017 02/12/2017 In active dispense one bottle of the cream potassium chloride E R 10 mEq tablet,extended release RxNorm: 433195 1 Tablet(s) PO PRN as needed with lasix 11/13/2016 12/25/2017 Inactive prn swelling furosemide 20 mg tablet RxNorm: 980643 1 Tablet(s) PO daily as needed edema 11/13/2016 01/11/2017 In active metoprolol tartrate 100 mg tablet RxNorm: 372035 TAKE ONE AND ONE-HALF (1 & 1/2) TABLET BY MOUTH EVERY MORNING AND TAKE TWO TABLETS BY MOUTH EVERY EVENING 11/01/2016 03/27/2017 In active atorvastatin 20 mg t ablet RxNorm: 472852 TAKE ONE TABLET BY MO [facility] DAILY 10/31/2016 04/28/2017 In active cyclobenzaprine 10 m g tablet RxNorm: 193283 TAKE ONE TABLET BY MO UT EVERY 8 HOURS NEEDED 10/25/2016 12/03/2016 Inactive Lyrica 25 mg capsule RxNorm: 722969 1 Tablet(s) PO BID 09/23/2016 01/13/2017 Inactive Lyrica 50 mg capsule RxNorm: 645660 1 Capsule(s) PO BID 09/16/2016 01/13/2017 Inactive amlodipine 5 mg tablet RxNorm: 989211 Tablet(s) TAKE ONE TABLET BY MOUTH DAILY 08/28/2016 05/14/2017 In active cyclobenzaprine 10 m g tablet RxNorm: 731639 TAKE ONE TABLET BY [facility] EVERY 8 HOURS NEEDED 08/05/2016 09/13/2016 Inactive Xanax 0.25 mg tablet RxNorm: 616384 1/2-1 Tablet(s) PO QDAY PRN 07/16/2016 04/03/2017 Inactive amlodipine 5 mg tablet RxNorm: 139347 TAKE ONE TABLET BY MOUTH DAILY 06/28/2016 08/26/2016 In active metoprolol tartrate 100 mg tablet RxNorm: 445440 Tablet(s) TAKE ONE AN D ONE-HALF (1 & 1/2) TABLET BY MOUTH EVERY MORNING AND TAKE TWO TABLETS BY MOUTH EVERY EVENING 05/02/2016 05/02/2016 Inactive metoprolol tartrate 100 mg tablet RxNorm: 008228 Tablet(s) PO TAKE ONE AND ONE-HALF (1 & 1/2) TABLET BY MOUTH EVERY MORNING AND TAKE TWO TABLETS BY MOUTH EVERY EVENING 05/02/2016 05/01/2016 Inactive metoprolol tartrate 100 mg tablet RxNorm: 741868 Tablet(s) PO TAKE ONE AND ONE-HALF (1 & 1/2) TABLET BY MOUTH EVERY MORNING AND TAKE TWO TABLETS BY MOUTH EVERY EVENING 05/02/2016 10/28/2016 Inactive atorvastatin 20 mg t ablet RxNorm: 079046 TAKE ONE TABLET BY MO [facility] DAILY 04/25/2016 10/21/2016 In active tramadol 50 mg tablet RxNorm: 550876 1-2 Tablet(s) PO Q8 as needed 04/25/2016 10/27/2017 In active cyclobenzaprine 10 m g tablet RxNorm: 569113 Tablet(s) PO TAKE ONE TABLET BY MOUTH EVERY 8 HOURS NEEDED 04/18/2016 06/16/2016 Inactive Kenalog 40 mg/mL sylvia pension for injection RxNorm: 2107381 1 Milliliter(s) Inj 04/04/2016 04/04/2016 In active Phenergan with Codei ne Syrup RxNorm: PO 04/03/2016 No Stop Date Active Zithromax Z-Kush 250 mg tablet RxNorm: 342545 1 Tablet(s) PO UD 04/03/2016 04/07/2016 Inactive 2 tabs on day 1 then 1 tab daily on days 2-5 amlodipine 5 mg tablet RxNorm: 738253 TAKE ONE TABLET BY MOUTH DAILY 03/27/2016 06/24/2016 In active Flexeril 10 mg tablet RxNorm: 426341 TAKE ONE TABLET BY MOUTH EVERY 8 HOURS A S NEEDED 03/14/2016 04/02/2016 Inactive Vitamin B-12 ER 2,00 0 mcg tablet,extended release RxNorm: 974218 1 Tablet(s) PO daily 03/13/2016 No Stop Date Active Vitamin B-12 ER 2,00 0 mcg tablet,extended release RxNorm: 144384 1 Tablet(s) PO daily 03/13/2016 No Stop Date Active gabapentin 100 mg ca psule RxNorm: 143917 1 Capsule(s) PO BID 03/13/2016 09/15/2016 Inactive Flexeril 10 mg tablet RxNorm: 124951 Tablet(s) TAKE ONE TABLET BY MOUTH EVERY 8 HOURS NEEDED 02/08/2016 02/27/2016 Inactive Xanax 0.25 mg tablet RxNorm: 976348 1/2-1 Tablet(s) PO QDAY PRN 02/08/2016 07/15/2016 Inactive amlodipine 5 mg tablet RxNorm: 066356 1 Tablet(s) PO daily 02/06/2016 03/26/2016 Inactive furosemide 20 mg tablet RxNorm: 812840 1 Tablet(s) PO daily 01/30/2016 06/16/2016 Inactive amlodipine 10 mg tablet RxNorm: 445753 1/2 Tablet(s) PO daily 01/30/2016 02/05/2016 Inactive doxazosin 4 mg tablet RxNorm: 390891 1.5 Tablet(s) PO BID 01/30/2016 01/23/2017 Inactive Flexeril 10 mg tablet RxNorm: 029528 TAKE ONE TABLET BY MOUTH EVERY 8 HOURS A S NEEDED 01/10/2016 01/29/2016 Inactive potassium chloride E R 10 mEq tablet,extended release RxNorm: 153683 1 Tablet(s) PO PRN as needed with lasix 12/25/2015 06/16/2016 Inactive prn swelling amlodipine 10 mg tablet RxNorm: 332053 TAKE ONE TABLET BY MOUTH EVERY MORNING 12/25/2015 12/24/2015 In active amlodipine 10 mg tablet RxNorm: 293685 TAKE ONE TABLET BY MOUTH EVERY MORNING 12/25/2015 01/29/2016 In active furosemide 20 mg tablet RxNorm: 451567 1/2 Tablet(s) PO daily as needed edema 12/21/2015 01/19/2016 In active pt needs to take 10meq potassium on days she takes the lasix metoprolol tartrate 100 mg tablet RxNorm: 939801 TAKE ONE AND ONE-HALF (1 & 1/2) TABLET BY MOUTH EVERY MORNING AND TAKE TWO TABLETS BY MOUTH EVERY EVENING 11/08/2015 12/07/2015 In active Flonase Allergy Reli ef 50 mcg/actuation nasal spray,suspension RxNorm: [place] as needed PLACE 2 SPRAYS IN EACH NOSTRIL DAILY 10/09/2015 02/05/2016 Inactive Flexeril 10 mg tablet RxNorm: 365190 1 Tablet(s) PO TID PRN TAKE ONE TABLET B Y MOUTH EVERY 8 HOURS NEEDED 10/09/2015 12/07/2015 Inactive alprazolam 0.5 mg ta blet RxNorm: 658317 TAKE ONE TABLET BY [facility] AT BEDTIME NEEDED FOR ANXIETY 08/29/2015 11/23/2015 Inactive Flonase Allergy Reli ef 50 mcg/actuation nasal spray,suspension RxNorm: PLACE 2 SPRAYS IN EACH NOSTRIL DAILY 07/06/2015 10/08/2015 Inactive Kenalog 40 mg/mL sylvia pension for injection RxNorm: 1011347 Milliliter(s) Inj 06/12/2015 06/12/2015 In active prednisone 10 mg tab lets in a dose pack RxNorm: 067043 1 Tablet(s) PO UD 06/12/2015 06/17/2015 In active 6-5-4-3-2-1 acyclovir 800 mg tablet RxNorm: 420096 1 Tablet(s) PO TID 06/12/2015 06/21/2015 Inactive Xanax 0.25 mg tablet RxNorm: 039244 1/2-1 Tablet(s) PO QDAY PRN 05/15/2015 02/07/2016 Inactive Flonase Allergy Reli ef 50 mcg/actuation nasal spray,suspension RxNorm: 2 [place] NASAL daily 05/15/2015 06/13/2015 Inactive Kenalog 40 mg/mL sylvia pension for injection RxNorm: 1366642 Milliliter(s) Inj 05/15/2015 05/15/2015 In active metoprolol tartrate 100 mg tablet RxNorm: 878731 TAKE ONE AND ONE-HALF (1 & 1/2) TABLET BY MOUTH EVERY MORNING AND TAKE TWO TABLETS BY MOUTH EVERY EVENING 05/07/2015 06/05/2015 In active metoprolol tartrate 100 mg tablet RxNorm: 932980 TAKE ONE AND ONE-HALF (1 & 1/2) TABLET BY MOUTH EVERY MORNING AND TAKE TWO TABLETS BY MOUTH EVERY EVENING 04/05/2015 05/04/2015 In active amlodipine 10 mg tablet RxNorm: 694094 TAKE ONE TABLET BY MOUTH EVERY MORNING 03/10/2015 12/04/2015 In active alprazolam 0.5 mg ta blet RxNorm: 617697 TAKE ONE TABLET BY MO UT EVERY NIGHT AT BEDTIME NEEDED FOR ANXIETY 02/23/2015 03/24/2015 Inactive (Response to an electronic controlled substance refill request - RxReferenceNumber: [id number]) alprazolam 0.5 mg ta blet RxNorm: 104838 1 Tablet(s) PO QHS as needed anxiety 02/23/2015 08/29/2015 In active (Response to an electronic controlled salas bstance refill request - RxReferenceNumber: [id number]) doxazosin 4 mg tablet RxNorm: 246382 TAKE ONE TABLET BY MOUTH TWICE A DAY 02/13/2015 01/29/2016 In active atorvastatin 20 mg t ablet RxNorm: 612238 TAKE ONE TABLET BY MO UTH EVERY DAY 01/19/2015 07/17/2015 In active atorvastatin 20 mg t ablet RxNorm: 907808 Tablet(s) TAKE ONE TA BLET BY MOUTH EVERY DAY 01/19/2015 01/18/2015 Inactive [SAVINGS FOR NON-COVERED DRUGS -- BIN:00 4296, N: [email or web address], Group: XXXXX, ID# [id number], Questions: . THIS IS NOT INSURANCE.] Maxzide-25mg 37.5 mg -25 mg tablet RxNorm: 22197 1 Tablet(s) PO daily 01/10/2015 10/08/2015 Inactive [SAVINGS FOR NON-COVERED DRUGS -- BIN:00 3585, PCN: ASPROD1, Group: XXXXX, ID# [id number], Questions: . THIS IS NOT INSURANCE.] metoprolol tartrate 100 mg tablet RxNorm: 134525 TAKE ONE AND ONE-HALF (1 & 1/2) TABLET BY MOUTH EVERY MORNING AND TAKE TWO TABLETS BY MOUTH EVERY EVENING 12/05/2014 01/03/2015 In active Flexeril 10 mg tablet RxNorm: 174455 TAKE ONE TABLET BY MOUTH EVERY 8 HOURS A S NEEDED 10/31/2014 06/27/2015 Inactive alprazolam 0.5 mg ta blet RxNorm: 332520 1 Tablet(s) PO QHS TA KE ONE TABLET BY MOUTH EVERY NIGHT AT BEDTIME AND NEEDED FOR PANIC ATTACKS 10/21/2014 10/23/2014 Inactive (Appended: Controlled substance eRx refi ll - RxReferenceNumber: [id number]) alprazolam 0.5 mg ta blet RxNorm: 308598 TAKE ONE TABLET BY MO UTH EVERY NIGHT AT BEDTIME NEEDED FOR ANXIETY 10/20/2014 11/18/2014 Inactive (Response to an electronic controlled substance refill request - RxReferenceNumber: [id number]) amlodipine 10 mg tablet RxNorm: 005379 1 Tablet(s) PO QAM 09/09/2014 03/07/2015 Inactive now taking full tab [SAVINGS FOR UNINSURED PATIENTS -- BIN:065324, PCN: ASPROD1, Group: [id number], ID# [id number], Process claim through Dash, for questions: . THIS IS NOT INSURANCE.] metoprolol tartrate 100 mg tablet RxNorm: 447029 TAKE ONE AND ONE-HALF (1 & 1/2) TABLET BY MOUTH EVERY MORNING AND TAKE TWO TABLETS BY MOUTH EVERY EVENING 09/03/2014 10/02/2014 In active alprazolam 0.5 mg ta blet RxNorm: 264471 TAKE ONE TABLET BY MO UTH EVERY NIGHT AT BEDTIME AND NEEDED FOR PANIC ATTACKS 08/29/2014 09/12/2014 Inactive (Response to an electronic controlled substance refill request - RxReferenceNumber: [id number]) Zithromax Z-Kush 250 mg tablet RxNorm: 740328 1 Tablet(s) PO UD 07/26/2014 07/25/2014 Inactive 2 tabs on day 1 then 1 tab daily on days 2-5 Zithromax Z-Kush 250 mg tablet RxNorm: 611666 1 Tablet(s) PO UD 07/26/2014 07/30/2014 Inactive 2 tabs on day 1 then 1 tab daily on days 2-5 alprazolam 0.5 mg ta blet RxNorm: 237251 Tablet(s) PO TAKE ONE TABLET BY MOUTH EVERY NIGHT AT BEDTIME AND NEEDED FOR PANIC ATTACKS 07/08/2014 08/30/2014 Inactive (Appended: Controlled substance eRx refill - RxReferenceNumber: [id number]) atorvastatin 20 mg t ablet RxNorm: 282249 TAKE ONE TABLET BY MO UTH EVERY DAY 04/25/2014 01/18/2015 In active Carafate 1 gram tablet RxNorm: 229176 Tablet(s) PO TAKE ONE TABLET BY MOUTH FO UR TIMES A DAY 04/14/2014 10/08/2015 Inactive Fish Oil 1,000 mg ca psule RxNorm: 1 Capsule(s) PO TID 04/13/2014 10/08/2015 Inactive Flexeril 10 mg tablet RxNorm: 141855 1 Tablet(s) PO Q8 PRN 04/01/2014 04/10/2014 Inactive Carafate 1 gram tablet RxNorm: 680450 1 Tablet(s) PO QID 03/10/2014 04/08/2014 Inactive chlordiazepoxide-cli dinium 5 mg-2.5 mg capsule RxNorm: 153658 1 Capsule(s) PO TID P RN 03/10/2014 04/10/2014 Inactive doxazosin 4 mg tablet RxNorm: 428729 1 Tablet(s) PO BID 02/02/2014 02/12/2015 Inactive Kenalog 40 mg/mL sylvia pension for injection RxNorm: 3572463 Milliliter(s) Inj 02/02/2014 02/02/2014 In active atorvastatin 20 mg t ablet RxNorm: 356450 Tablet(s) PO TAKE ONE TABLET BY MOUTH EVERY DAY 01/10/2014 04/24/2014 Inactive alprazolam 0.5 mg ta blet RxNorm: 637267 Tablet(s) PO TAKE ONE TABLET BY MOUTH EVERY NIGHT AT BEDTIME AND NEEDED FOR PANIC ATTACKS 01/10/2014 07/07/2014 Inactive (Appended: Controlled substance eRx refill - RxReferenceNumber: [id number]) alprazolam 0.5 mg ta blet RxNorm: 400585 1 Tablet(s) PO QHS TA KE ONE TABLET BY MOUTH EVERY NIGHT AT BEDTIME AND NEEDED FOR PANIC ATTACKS 01/10/2014 10/20/2014 Inactive (Appended: Controlled substance eRx refi ll - RxReferenceNumber: [id number]) alprazolam 0.5 mg ta blet RxNorm: 946983 Tablet(s) PO TAKE ONE TABLET BY MOUTH EVERY NIGHT AT BEDTIME AND NEEDED FOR PANIC ATTACKS 01/10/2014 01/09/2014 Inactive (Appended: Controlled substance eRx refill - RxReferenceNumber: [id number]) Carafate 1 gram tablet RxNorm: 191275 1 Tablet(s) PO QID 12/16/2013 01/14/2014 Inactive Nexium 40 mg capsule ,delayed release RxNorm: 333657 Capsule(s) PO TAKE ON E CAPSULE BY MOUTH EVERY DAY 11/25/2013 03/12/2016 Inactive doxazosin 4 mg tablet RxNorm: 280873 1/2 Tablet(s) PO QPM 10/21/2013 01/20/2019 Inactive alprazolam 0.5 mg ta blet RxNorm: 639122 1 Tablet(s) PO as dir ected q hs and prn panic attacks 10/18/2013 01/10/2014 Inactive doxazosin 4 mg tablet RxNorm: 735657 1 q am 1/2 q pm Tablet(s) PO 09/21/2013 02/01/2014 Inactive doxazosin 4 mg tablet RxNorm: 753129 1 q am 1/2 q pm Tablet(s) PO 09/21/2013 09/20/2013 Inactive amlodipine 10 mg tablet RxNorm: 678958 1 Tablet(s) PO QAM 08/30/2013 08/24/2014 Inactive now taking full tab metoprolol tartrate 100 mg tablet RxNorm: 807756 2 Tablet(s) PO QPM 08/24/2013 10/22/2013 Inactive alprazolam 0.5 mg ta blet RxNorm: 393683 1 Tablet(s) PO as dir ected q hs and prn panic attacks 07/29/2013 10/17/2013 Inactive Benicar 20 mg tablet RxNorm: 378364 1 Tablet(s) PO daily 07/26/2013 08/09/2013 Inactive amlodipine 10 mg tablet RxNorm: 921990 1 Tablet(s) PO QAM 07/19/2013 08/29/2013 Inactive cyclobenzaprine 5 mg tablet RxNorm: 469640 1 Tablet(s) PO TID OK N one pill every 8 hours as needed for muscle spasms. 07/19/2013 03/31/2014 Inactive Kenalog 40 mg/mL Sylvia p for Injection RxNorm: 5336409 1 Milliliter(s) Inj 06/30/2013 06/30/2013 In active prednisone 10 mg tab lets in a dose pack RxNorm: 801700 1 Tablet(s) PO as doc tor directed take steroid taper as directed on box 06/30/2013 07/09/2013 Inactive disp ense one PACK meclizine 25 mg tablet RxNorm: 905812 1 Tablet(s) PO Q6 PRN 1/2 - 1 pill every 6 hours as needed for vertigo 06/30/2013 08/10/2013 Inactive metoprolol tartrate 100 mg tablet RxNorm: 055202 1.5 Tablet(s) PO BID 06/30/2013 08/23/2013 In active metoprolol tartrate 100 mg tablet RxNorm: 055404 1 Tablet(s) PO BID 06/24/2013 06/29/2013 Inactive metoprolol tartrate 100 mg tablet RxNorm: 414415 1 Tablet(s) PO daily 06/17/2013 06/23/2013 In active metoprolol tartrate 100 mg tablet RxNorm: 233293 1 Tablet(s) PO daily 06/17/2013 06/16/2013 In active Toprol XL 100 mg tab let,extended release RxNorm: 307620 Tablet(s) PO TAKE ONE AND ONE- HALF TABLET BY MOUTH EVERY MORNING AND ONE TABLET IN THE EVENING 05/05/2013 06/22/2013 In active alprazolam 0.5 mg ta blet RxNorm: 096222 1 Tablet(s) PO as dir ected q hs and prn panic attacks 04/06/2013 07/28/2013 Inactive doxazosin 4 mg tablet RxNorm: 609341 Tablet(s) PO TAKE ONE TABLET BY MOUTH EV KANE DAY 04/01/2013 09/20/2013 Inactive Toprol XL 100 mg tab let,extended release RxNorm: 092007 Tablet(s) PO TAKE ONE AND ONE- HALF TABLET BY MOUTH EVERY MORNING AND ONE TABLET IN THE EVENING 12/25/2012 05/04/2013 In active Lasix 20 mg tablet RxNorm: 642161 1 Tablet(s) PO QDAY PRN Take 1 tab daily x 3 days then as needed 12/02/2012 04/10/2014 Inactive potassium chloride E R 20 mEq tablet,extended release(part/cryst) RxNorm: 493166 1 Tablet(s) PO PRN 12/02/2012 10/04/2013 Inactive prn swelling alprazolam 0.5 mg ta blet RxNorm: 313790 1 Tablet(s) PO as dir ected q hs and prn panic attacks 12/01/2012 04/05/2013 Inactive amlodipine 10 mg tablet RxNorm: 858059 1/2 Tablet(s) PO QAM 12/01/2012 07/18/2013 Inactive fluconazole 150 mg t ablet RxNorm: 548992 1 Tablet(s) PO daily 11/16/2012 11/20/2012 Inactive fluconazole 150 mg t ablet RxNorm: 125363 1 Tablet(s) PO daily 11/16/2012 11/15/2012 Inactive Nexium 40 mg capsule ,delayed release RxNorm: 396698 1 Capsule(s) PO daily 10/23/2012 11/16/2013 In active acyclovir 400 mg tablet RxNorm: 280012 1 Tablet(s) PO TID 10/19/2012 10/28/2012 Inactive chlordiazepoxide-cli dinium 5 mg-2.5 mg capsule RxNorm: 674479 1 Capsule(s) PO TID P RN 2012 12/22/2013 Inactive Voltaren 1 % Topical Gel RxNorm: 359892 4 Gram(s) TOP QID pt is to use 2 grams to each hand and 4 grams to knees. 08/18/2012 04/10/2014 Inactive doxazosin 4 mg tablet RxNorm: 406750 1 Tablet(s) PO QAM 08/18/2012 10/16/2012 Inactive atorvastatin 20 mg t ablet RxNorm: 117297 1 Tablet(s) PO HS 08/12/2012 08/11/2012 Inactive may have #90 x3 infection atorvastatin 20 mg t ablet RxNorm: 209546 1 Tablet(s) PO HS 08/12/2012 09/05/2013 Inactive may have #90 x3 infection doxazosin 4 mg tablet RxNorm: 676079 1 Tablet(s) PO daily 08/11/2012 08/17/2012 Inactive clonidine 0.1 mg/24 hr Weekly Transderm Patch RxNorm: 803880 1 Patch TD QW 08/04/2012 08/10/2012 In active Influenza Virus Vacc ine 0.5 mL RxNorm: IM 08/04/2012 08/04/2012 Inactive cyclobenzaprine 5 mg tablet RxNorm: 901237 1 Tablet(s) PO TID OK N one pill every 8 hours as needed for muscle spasms. 07/13/2012 11/09/2012 Inactive cyclobenzaprine 5 mg tablet RxNorm: 077766 1 Tablet(s) PO TID OK N one pill every 8 hours as needed for muscle spasms. 07/09/2012 07/12/2012 Inactive gabapentin 100 mg ca psule RxNorm: 167012 1 Capsule(s) PO TID 07/01/2012 12/01/2012 Inactive atorvastatin 20 mg t ablet RxNorm: 974823 1/2 Tablet(s) PO daily 07/01/2012 08/11/2012 Inactive may of day supply if cheaper Toprol XL 100 mg tab let,extended release RxNorm: 864917 Tablet(s) PO BID 11/2 in am and 1 in evening 07/01/2012 06/16/2013 Inactive 1 1/2 q am 1 in [place] alprazolam 0.5 mg ta blet RxNorm: 943518 1 Tablet(s) PO as dir ected q hs and prn panic attacks 06/24/2012 11/30/2012 Inactive amlodipine 10 mg tablet RxNorm: 506041 1 Tablet(s) PO QAM 06/19/2012 11/30/2012 Inactive benazepril 20 mg tablet RxNorm: 109940 1 Tablet(s) PO daily 06/19/2012 06/13/2013 Inactive one daily at noon Toprol XL 100 mg tab let,extended release RxNorm: 637856 Tablet(s) PO BID 06/19/2012 06/30/2012 In active 1 1/2 q am 1 in [place] Toprol XL 100 mg tab let,extended release RxNorm: 007994 1 1/2 Tablet(s) PO BI D 04/27/2012 06/18/2012 In active 90 or 30 day supply, whatever ins will a llow Lotrel 10 mg-20 mg Cap RxNorm: 693706 1 Capsule(s) PO daily 04/20/2012 08/04/2012 Inactive estradiol 0.5 mg Tab RxNorm: 033243 1 Tablet(s) PO BID 04/20/2012 12/02/2012 Inactive Toprol XL 100 mg 24 hr Tab RxNorm: 617377 1 1/2 Tablet(s) PO BID 04/14/2012 04/26/2012 Inactive Toprol XL 100 mg 24 hr Tab RxNorm: 157410 Tablet(s) PO daily 03/31/2012 04/13/2012 Inactive new directions: one q am 1/2 every evepl ease put on file until she needs filled Lipitor 10 mg tablet RxNorm: 164018 1 Tablet(s) PO daily 03/31/2012 12/02/2012 Inactive may of 90 day supply if cheaper Toprol XL 100 mg 24 hr Tab RxNorm: 509636 1 Tablet(s) PO daily 03/11/2012 03/30/2012 Inactive Boniva 150 mg Tab RxNorm: 092079 1 Tablet(s) PO weekly 02/19/2012 12/02/2012 Inactive Detrol LA 4 mg capsu le,extended release RxNorm: 035747 1 Capsule(s) PO daily 02/19/2012 03/12/2016 In active doxycycline hyclate 100 mg Tab RxNorm: 5111810 1 Tablet(s) PO BID 01/23/2012 02/25/2012 Inactive Rocephin 500 mg Solu tion for Injection RxNorm: 2367419 1 Milliliter(s) Inj 01/23/2012 01/23/2012 In active Kenalog 40 mg/mL Sylvia p for Injection RxNorm: 1414481 1 Milliliter(s) Inj 01/23/2012 01/23/2012 In active cyclobenzaprine 5 mg tablet RxNorm: 878709 1 Tablet(s) PO TID OK N one pill every 8 hours as needed for muscle spasms. 12/20/2011 04/17/2012 Inactive clonidine 0.1 mg Tab RxNorm: 827675 1 Tablet(s) PO BID 12/20/2011 02/25/2012 Inactive Vitamin D3 5,000 uni t tablet RxNorm: 662129 1 Tablet(s) PO daily No Start Date Active Nexium 24HR 22.3 mg capsule,delayed release RxNorm: 883210 1 Capsule(s) PO daily as needed No Start Date Active Fish Oil 360 mg-1,20 0 mg capsule,delayed release RxNorm: 1 Capsule(s) PO daily No Start Date Active Lotrel 10 mg-20 mg Cap RxNorm: 642610 1 Capsule(s) PO daily No Start Date 02/24/2012 Inactive benazepril 20 mg tablet RxNorm: 883737 1 Tablet(s) PO No Start Date 06/18/2012 Inactive one daily at noon Vimovo 500 mg-20 mg multiphase, immed & delay rel Tab RxNorm: 130126 1 Tablet(s) PO BID No Start Date 12/01/2012 Inactive B12 1000 mcg RxNorm: 2 IM daily No Start Date 03/12/2016 Inactive Fish Oil 1,000 mg ca psule RxNorm: 1 Capsule(s) PO BID No Start Date 04/12/2014 Inactive Benicar 40 mg tablet RxNorm: 139563 1 Tablet(s) PO daily No Start Date 10/24/2013 Inactive Carafate 1 gram tablet RxNorm: 681382 Oral No Start Date 12/15/2013 Inactive Vitamin B-12 1,000 m cg tablet RxNorm: 525895 1 Tablet(s) PO daily No Start Date 03/12/2016 Inactive amlodipine 10 mg tablet RxNorm: 857469 1 Tablet(s) PO daily No Start Date 06/18/2012 Inactive Phenergan VC-Codeine 6.25 mg-5 mg-10 mg/5 mL Syrup RxNorm: 402872 5-10 Milliliter(s) PO Q6 PRN No Start Date 04/10/2014 Inactive Celebrex 200 mg capsule RxNorm: 303018 1 Capsule(s) PO daily No Start Date 10/08/2015 Inactive Percocet 5 mg-325 mg tablet RxNorm: 1761672 1-2 Tablet(s) PO Q6 PRN No Start Date 06/16/2014 Inactive Exforge 10 mg-320 mg Tab RxNorm: 918990 1 Tablet(s) PO daily sample No Start Date 05/20/2012 Inactive Lipitor 10 mg Tab RxNorm: 326276 1 Tablet(s) PO daily No Start Date 03/30/2012 Inactive tramadol 50 mg tablet RxNorm: 895370 1-2 Tablet(s) PO Q8 as needed No Start Date 04/24/2016 Inactive Lasix 20 mg tablet RxNorm: 261880 1 Tablet(s) PO QDAY PRN Take 1 tab daily x 3 days then as needed No Start Date 12/01/2012 Inactive potassium chloride E R 20 mEq tablet,extended release(part/cryst) RxNorm: 3092294 1 Tablet(s) PO QDAY PRN No Start [place] e 12/01/2012 Inactive Toprol XL 100 mg 24 hr Tab RxNorm: 780518 1 Tablet(s) PO daily No Start Date 03/10/2012 Inactive MIDRIN 325 mg-65 mg- 100 mg Cap RxNorm: 520893 1 Capsule(s) PO PRN No Start Date 05/20/2012 Inactive Nexium 40 mg capsule ,delayed release RxNorm: 509226 1 Capsule(s) PO daily No Start Date 10/22/2012 Inactive Detrol LA 4 mg 24 hr Cap RxNorm: 428471 Oral No S tart Date 02/18/2012 Inactive Boniva 150 mg Tab RxNorm: 337680 Oral No Start Date 02/18/2012 Inactive Flexeril 10 mg tablet RxNorm: 810437 1 Tablet(s) PO Q8 PRN No Start Date 03/31/2014 Inactive clidinium bromide Oral RxNorm: Oral No Start Date 12/01/2012 Inactive alprazolam 0.5 mg ta blet RxNorm: 069986 1 Tablet(s) PO as dir ected q hs and prn panic attacks No Start Date 06/23/2012 Inactive chlordiazepoxide Oral RxNorm: Oral No Start Date 12/01/2012 Inactive metoprolol tartrate 100 mg tablet RxNorm: 426614 Tablet(s) PO TAKE ONE AND ONE-HALF (1 & 1/2) TABLET BY MOUTH EVERY MORNING AND TAKE TWO TABLETS BY MOUTH EVERY EVENING No Start Date 08/03/2014 Inactive furosemide 20 mg tablet RxNorm: 280991 1 Tablet(s) PO daily No Start Date 01/29/2016 Inactive Calcium Oral RxNorm: Oral No Start Date 03/12 Inactive Nasonex 50 mcg/actua tion [place] RxNorm: 285401 1 [place] NASAL BID No Start Date 04/10/2014 Inactive Medication Administered Medication Codes Instruc tions Start Date Status Kenalog 40 mg/mL suspension for injection RxNorm: 5287978 Milliliter 04/24/2018 No longer Active Kenalog 40 mg/mL suspension for injection RxNorm: 7503872 Milliliter 06/23/2017 No longer Active Kenalog 40 mg/mL suspension for injection RxNorm: 3081000 2Milliliter 03/21/2017 N o longer Active Kenalog 40 mg/mL suspension for injection RxNorm: 9983933 1Milliliter 04/04/2016 N o longer Active Kenalog 40 mg/mL suspension for injection RxNorm: 6444867 Milliliter 06/12/2015 No longer Active Kenalog 40 mg/mL suspension for injection RxNorm: 9673465 Milliliter 05/15/2015 No longer Active Kenalog 40 mg/mL suspension for injection RxNorm: 2587603 Milliliter 02/02/2014 No longer Active Kenalog 40 mg/mL Susp for Injection RxNorm: 1915813 1Milliliter 06/30/2013 N o longer Active Influenza Virus Vaccine 0.5 mL RxNorm: 08/04/2012 No longer Active Rocephin 500 mg Solution for Injection RxNorm: 2264497 1Milliliter 01/23/2012 N o longer Active Kenalog 40 mg/mL Susp for Injection RxNorm: 3244056 1Milliliter 01/23/2012 N o longer Active Immunizations [...] Ord2 RDW 14.8 % 06/05/2015 Comp Metabolic Xez716 NA 138 mEq/L 06/05/2015 Comp Metabolic Kyu863 K 4.3 mEq/L 06/05/2015 Comp Metabolic Zhu099 CL 100 mEq/L 06/05/2015 Comp Metabolic Vck910 CO2 29.0 mEq/L 06/05/2015 Comp Metabolic Tiz330 AN ION GAP 13 06/05/2015 Comp Metabolic Thf274 GL UCOSE 85 mg/dL 06/05/2015 Comp Metabolic Beo012 Cr eat 0.7 mg/dL 06/05/2015 Comp Metabolic Jqs674 eG FR 94 ml/min/1.73m2 06/05 Comp Metabolic Syq137 BUN 16 mg/dL 06/05/2015 Comp Metabolic Yud342 B/ C Ratio 24.2 Ratio 06/05/2015 Comp Metabolic Xhs737 CA LCIUM 9.5 mg/dL 06/05/2015 Comp Metabolic Xba069 AL K PHOS 69 U/L 06/05/2015 Comp Metabolic Nrw935 T(SGOT) 22 U/L 06/05/2015 Comp Metabolic Xou584 AL T(SGPT) 26 U/L 06/05/2015 Comp Metabolic Oor369 BI LI T 0.5 mg/dL 06/05/2015 Comp Metabolic Pvo617 AL BUMIN 4.2 g/dL 06/05/2015 Comp Metabolic Rmj765 TP RO 6.1 g/dL 06/05/2015 Comp Metabolic Sjv498 GL OB 1.9 g/dL 06/05/2015 Comp Metabolic Hrz730 A/ G Ratio 2.2 Ratio 06/05/2015 Comp Metabolic Iww683 Os mo 276 mOsmo 06/05/2015 Tsh Ord6 hTSH II 1.99 uIU/mL 06/05/2015 Lipid Ord30 CHOL 171 mg/dL 06/05/2015 Lipid Ord30 HDL 55.0 mg/dl 06/05/2015 Lipid Ord30 TRIG 178 mg/dL 06/05/2015 Lipid Ord30 LDL 80 mg/dL 06/05/2015 Lipid Ord30 C/HDL 3.1 Ratio 06/05/2015 %Hba1C Rvu271 % HbA1c 21134-3 5.7 % 06/05/2015 %Hba1C Ima043 Gluc Ave 117 mg/dL 06/05/2015 A1C HPLC 0079118 A1C HPLC 13109-0 5.6 % 07/15/2014 GFR CALC 6886376 GFR AA >60 ML/MIN 07/15/2014 GFR CALC 3011966 GFR NON -AA >60 ML/MIN 07/15/2014 CHEM 14 4691372 AST 21 U/L 07/15/2014 CHEM 14 20280507 ALT 23 IU/L 07/15/2014 CHEM 14 20280507 BUN 14 MG/DL 07/15/2014 CHEM 14 5124740 ALBUMIN 4.2 GM/DL 07/15/2014 CHEM 14 8910387 CHLORIDE 104 MMOL/L 07/15/2014 CHEM 14 8927950 BILI TOT 0.4 MG/DL 07/15/2014 CHEM 14 2000339 ALK PHOS 88 U/L 07/15/2014 CHEM 14 3465609 SODIUM 140 MMOL/L 07/15/2014 CHEM 14 2392047 CREATINI NE 0.63 MG/DL 07/15/2014 CHEM 14 0156102 CALCIUM 9.4 MG/DL 07/15/2014 CHEM 14 1199293 POTASSIUM 4.0 MMOL/L 07/15/2014 CHEM 14 6627975 PROT TOT 6.4 GM/DL 07/15/2014 CHEM 14 7049605 GLUCOSE 90 MG/DL 07/15/2014 CHEM 14 8913149 BICARB 30 MMOL/L 07/15/2014 CHEM 14 9149762 ANION GAP 6 MEQ/L 07/15/2014 A1C HPLC 7659971 A1C HPLC 78105-7 6.0 % 04/13/2014 TSH 0395233 TSH 1.875 uIU/ML 04/12/2014 CHEM 14 0437697 AST 17 U/L 04/12/2014 CHEM 14 0740736 ALT 20 IU/L 04/12/2014 CHEM 14 4695772 BUN 14 MG/DL 04/12/2014 CHEM 14 0334857 ALBUMIN 4.2 GM/DL 04/12/2014 CHEM 14 9338005 CHLORIDE 104 MMOL/L 04/12/2014 CHEM 14 2333574 BILI TOT 0.3 MG/DL 04/12/2014 CHEM 14 4567015 ALK PHOS 80 U/L 04/12/2014 CHEM 14 9823012 SODIUM 141 MMOL/L 04/12/2014 CHEM 14 2242546 CREATINI NE 0.62 MG/DL 04/12/2014 CHEM 14 6232541 CALCIUM 9.4 MG/DL 04/12/2014 CHEM 14 9560329 POTASSIUM 3.5 MMOL/L 04/12/2014 CHEM 14 8587086 PROT TOT 6.5 GM/DL 04/12/2014 CHEM 14 3008191 GLUCOSE 89 MG/DL 04/12/2014 CHEM 14 0694607 BICARB 29 MMOL/L 04/12/2014 CHEM 14 2085723 ANION GAP 8 MEQ/L 04/12/2014 LIPID GRP HDL TE ST 59 MG/DL 04/12/2014 LIPID GRP TRIG 177 MG/DL 04/12/2014 LIPID GRP TEST L DL 106 MG/DL 04/12/2014 LIPID GRP CHOL 200 MG/DL 04/12/2014 LIPID GRP RCHOL/ HDL 3.39 RATIO 04/12/2014 CBC 7321367 WBC 4.6 10e9/L 04/12/2014 CBC 5034905 RBC 4.52 10e12/L 04/12/2014 CBC 8119459 HGB 13.1 g/dL 04/12/2014 CBC 2831559 HCT DET 39.2 % 04/12/2014 CBC 8885763 MCV 86.7 fL 04/12/2014 CBC 2865188 MCH 29.0 pg 04/12/2014 CBC 3458285 MCHC 33.4 g/dL 04/12/2014 CBC 3708679 PLT 233 10e9/L 04/12/2014 CBC 8860117 MPV 9.8 fL 04/12/2014 CBC 3450280 AN % 59.5 % 04/12/2014 CBC 8581863 LY % 28.6 % 04/12/2014 CBC 9940829 MON % 10.0 % 04/12/2014 CBC 0868243 EOS % 1.5 % 04/12/2014 CBC 9200808 BASO % 0.4 % 04/12/2014 CBC 6619796 RDW 13.7 % 04/12/2014 CBC 5864616 ABS AN 2.74 10e9/L 04/12/2014 CBC 9777835 ABS LYMPH 1.32 10e9/L 04/12/2014 CBC 4472354 ABS MONO 0.46 10e9/L 04/12/2014 CBC 3983402 ABS EOS 0.07 10e9/L 04/12/2014 CBC 1461043 ABS BASO 0.02 10e9/L 04/12/2014 CBC 9452843 RDW-SD 42.6 fL 04/12/2014 GFR CALC 3100118 GFR AA >60 ML/MIN 04/12/2014 GFR CALC 3605923 GFR NON -AA >60 ML/MIN 04/12/2014 LIPID GRP HDL TE ST 57 MG/DL 08/24/2013 LIPID GRP TRIG 183 MG/DL 08/24/2013 LIPID GRP TEST L DL 64 MG/DL 08/24/2013 LIPID GRP 7099878 CHOL 158 MG/DL 08/24/2013 LIPID GRP 7424549 RCHOL/ HDL 2.77 RATIO 08/24/2013 GFR CALC 2666636 GFR AA >60 ML/MIN 08/24/2013 GFR CALC 3702246 GFR NON -AA >60 ML/MIN 08/24/2013 CHEM 14 2199182 AST 13 U/L 08/24/2013 CHEM 14 7534804 ALT 15 IU/L 08/24/2013 CHEM 14 3705231 BUN 14 MG/DL 08/24/2013 CHEM 14 6911232 ALBUMIN 4.3 GM/DL 08/24/2013 CHEM 14 9470507 CHLORIDE 106 MMOL/L 08/24/2013 CHEM 14 2496913 BILI TOT 0.3 MG/DL 08/24/2013 CHEM 14 0015745 ALK PHOS 75 U/L 08/24/2013 CHEM 14 2897911 SODIUM 141 MMOL/L 08/24/2013 CHEM 14 4444986 CREATINI NE 0.56 MG/DL 08/24/2013 CHEM 14 1102774 CALCIUM 9.1 MG/DL 08/24/2013 CHEM 14 6631516 POTASSIUM 4.2 MMOL/L 08/24/2013 CHEM 14 8663622 PROT TOT 6.0 GM/DL 08/24/2013 CHEM 14 1910191 GLUCOSE 83 MG/DL 08/24/2013 CHEM 14 4013200 BICARB 28 MMOL/L 08/24/2013 CHEM 14 7911801 ANION GAP 7 MEQ/L 08/24/2013 CBC 7198156 WBC 4.7 10e9/L 08/24/2013 CBC 1654573 RBC 4.33 10e12/L 08/24/2013 CBC 0749208 HGB 12.5 g/dL 08/24/2013 CBC 8668397 HCT DET 38.2 % 08/24/2013 CBC 6140713 MCV 88.2 fL 08/24/2013 CBC 2391857 MCH 28.9 pg 08/24/2013 CBC 0917067 MCHC 32.7 g/dL 08/24/2013 CBC 3661125 PLT 218 10e9/L 08/24/2013 CBC 7087009 MPV 10.4 fL 08/24/2013 CBC 4938534 AN % 61.9 % 08/24/2013 CBC 8648862 LY % 24.8 % 08/24/2013 CBC 4807771 MON % 10.3 % 08/24/2013 CBC 3978807 EOS % 2.1 % 08/24/2013 CBC 5430104 BASO % 0.9 % 08/24/2013 CBC 7870051 RDW 14.6 % 08/24/2013 CBC 3921436 ABS AN 2.91 10e9/L 08/24/2013 CBC 1240076 ABS LYMPH 1.17 10e9/L 08/24/2013 CBC 9785235 ABS MONO 0.48 10e9/L 08/24/2013 CBC 1444942 ABS EOS 0.10 10e9/L 08/24/2013 CBC 6448267 ABS BASO 0.04 10e9/L 08/24/2013 CBC 1560199 RDW-SD 46.7 fL 08/24/2013 TSH 0736328 TSH 1.208 uIU/ML 08/24/2013 Review of Systems [...] No alteration of consciousness 10/09/2015 Psychiatric anxiety /05/2015 Constitutional No recent illness 06/12/2015 Constitutional No [...] time 08/24/2013 None Full Exam - General 1995 Cardiovascular extremities Edema present: pitting 08/24/2013 1-2+ [...] swelling 12/01/2012 None Full Exam - General 1995 Musculoskeletal head and neck Overall: cervical spine benign 12/01/2012 None Full Exam - General 1994 Musculoskeletal head and neck Overall: head atraumatic 12/01/2012 None Full Exam - General 1995 Neurologic cranial nerves Overall: crainial nerves 2 - 12 grossly intact 12/01/2012 None Full Exam - General 1995 Constitutional general appearance Overall: well developed 12/01/2012 None Full Exam - General 1994 Constitutional general appearance Overall: in no acute distress 12/01/2012 None Full Exam - General 1995 Constitutional general appearance Overall: well nourished 12/01/2012 [...] murmurs 2012 None Full Exam - General 1995 Abdomen abdominal exam Overall: no tenderness 2012 [...] time 08/04/2012 None Full Exam - General 1995 Psychiatric mood and affect Overall: normal mood and affect 08/04/2012 None Full Exam - General 1994 Psychiatric mood and affect Mood: happy 08/04/2012 None Full Exam - General 1995 Abdomen abdominal exam Overall: no tenderness 08/04/2012 None Full Exam - General 1995 Abdomen abdominal exam Overall: normal bowel sounds 08/04/2012 None Full Exam - General 1995 Constitutional general appearance Overall: well developed 08/04/2012 [...] Formatting Model/CDA Sections, Assigned to/Jen Cota CPT-4: [id number] 07/28/2018 THER/PROPH/DIAG INJ SC/IM CPT-4: 45278 04/24/2018 TRIAMCINOLONE ACET I [place] NOS CPT-4: J3301 04/24/2018 PPPS, SUBSEQ VISIT CPT- 4: G0439 02/03/2018 TRIAMCINOLONE ACET I [place] NOS CPT-4: J3301 06/23/2017 TRIAMCINOLONE ACET I [place] NOS CPT-4: J3301 03/21/2017 PPPS, SUBSEQ VISIT CPT- 4: G0439 01/22/2017 ADMIN PNEUMOCOCCAL V ACCINE SNOMED CT: 38679506 CPT-4: G0009 09/16/2016 Pneumococcal Polysac charide Vaccine, 23-Valent, Ad CPT-4: 77698 09/16/2016 THER/PROPH/DIAG INJ SC/IM CPT-4: 09128 04/04/2016 TRIAMCINOLONE ACET I [place] NOS CPT-4: J3301 04/04/2016 ADMIN INFLUENZA VIRU S VAC CPT-4: G0008 07/28/2015 FLU VACC 4 XIMENA 3 YRS PLUS IM Formatting Model/CDA Sections, Assigned to/Jen Cota SNOMED CT: [id number] CPT-4: 77109Vwmfqns 07/28/2015 TRIAMCINOLONE ACET I [place] NOS CPT-4: J3301 06/12/2015 TRIAMCINOLONE ACET I [place] NOS CPT-4: J3301 05/15/2015 ADMIN INFLUENZA VIRU S VAC CPT-4: G0008 07/19/2014 FLU VAC NO PRSV 4 VA L 3 YRS+ Assigned to/Jen Cota CPT-4: 88989Avdukmy 07/19/2014 TRIAMCINOLONE ACET I [place] NOS CPT-4: J3301 02/02/2014 ROUTINE VENIPUNCTURE CPT-4: 10670 08/24/2013 ADMIN INFLUENZA VIRU S VAC CPT-4: [...] CPT-4: J3301 01/23/2012 THER/PROPH/DIAG INJ SC/IM CPT-4: 26422 01/23/2012 REMOVE IMPACTED EAR WAX UNI CPT-4: 35677 01/02/2012 ROUTINE VENIPUNCTURE CPT-4: 77559 12/20/2011 Vital Signs Date Vital 01/21/2019 Blood Pressure 1: 144/70 Code: 8480-6 BMI: 34.0 Code: 64792-5 Heart Rate 1: 68 bpm Height: 5' SpO2: 97% Temperature: 36.5 (C ) / 97.7 (F) Weight: 177 lbs 10/14/2018 Blood Pressure 1: 150/72 Code: 8480-6 Heart Rate 1: 58 bpm Height: 5' SpO2: 98% Weight: 09/22/2018 Blood Pressure 1: 140/80 Code: 8480-6 BMI: 32.7 Code: 58845-3 Heart Rate 1: 55 bpm Height: 5' SpO2: 98% Weight: 170 lbs 08/17/2018 Blood Pressure 1: 140/76 Code: 8480-6 BMI: 33.0 Code: 69555-5 Heart Rate 1: 60 bpm Height: 5' SpO2: 99% Weight: 172 lbs 06/08/2018 Blood Pressure 1: 136/80 Code: 8480-6 BMI: 33.8 Code: 01335-7 Heart Rate 1: 65 bpm Height: 5' SpO2: 98% Weight: 176 lbs 05/04/2018 Blood Pressure 1: 134/80 Code: 8480-6 BMI: 35.9 Code: 94656-0 Heart Rate 1: 72 bpm Height: 5' SpO2: 94% Weight: 187 lbs 02/04/2018 Blood Pressure 1: 144/76 Code: 8480-6 BMI: 35.0 Code: 65454-8 Heart Rate 1: 64 bpm Height: 5' SpO2: 98% Weight: 182 lbs 02/03/2018 Blood Pressure 1: 136/62 Code: 8480-6 BMI: 35.0 Code: 15320-6 Heart Rate 1: 57 bpm Height: 5' SpO2: 98% Waist Measure (cm): 94 cm Weight: 182 lbs 09/17/2017 Blood Pressure 1: 150/82 Code: 8480-6 BMI: 33.6 Code: 60157-4 Heart Rate 1: 58 bpm Height: 5' SpO2: 98% Weight: 175 lbs 06/23/2017 Blood Pressure 1: 124/66 Code: 8480-6 Heart Rate 1: 65 bpm Height: 5' SpO2: 97% Weight: 05/13/2017 Blood Pressure 1: 128/80 Code: 8480-6 BMI: 32.8 Code: 15976-0 Heart Rate 1: 76 bpm Height: 5' SpO2: 95% Weight: 171 lbs 03/21/2017 Blood Pressure 1: 152/88 Code: 8480-6 Heart Rate 1: 70 bpm Height: SpO2: 98% Weight: 03/19/2017 Blood Pressure 1: 132/64 Code: 8480-6 BMI: 33.0 Code: 85328-2 Heart Rate 1: 64 bpm Height: 5' SpO2: 96% Weight: 172 lbs 01/22/2017 Blood Pressure 1: 120/68 Code: 8480-6 BMI: 33.4 Code: 88712-2 Heart Rate 1: 68 bpm Height: 5' SpO2: 96% Weight: 174 lbs 01/14/2017 Blood Pressure 1: 138/80 Code: 8480-6 BMI: 33.4 Code: 84835-1 Heart Rate 1: 69 bpm Height: 5' SpO2: 98% Weight: 174 lbs 09/23/2016 Blood Pressure 1: 138/70 Code: 8480-6 BMI: 33.6 Code: 41798-2 Heart Rate 1: 68 bpm Height: 5' SpO2: 98% Temperature: 36.4 (C ) / 97.5 (F) Weight: 175 lbs 09/16/2016 Blood Pressure 1: 124/74 Code: 8480-6 BMI: 33.6 Code: 37975-1 Heart Rate 1: 64 bpm Height: 5' SpO2: 97% Weight: 175 lbs 06/25/2016 Weigh t: 174 lbs 06/17/2016 Blood Pressure 1: 128/80 Code: 8480-6 BMI: 34.0 Code: 68155-7 Heart Rate 1: 76 bpm Height: 5' SpO2: 95% Weight: 177 lbs 04/03/2016 Blood Pressure 1: 138/72 Code: 8480-6 BMI: 34.2 Code: 39529-3 Heart Rate 1: 63 bpm Height: 5' SpO2: 96% Weight: 178 lbs 03/13/2016 Blood Pressure 1: 128/72 Code: 8480-6 BMI: 35.3 Code: 03952-2 Heart Rate 1: 71 bpm Height: 5' SpO2: 97% Weight: 184 lbs 01/30/2016 Blood Pressure 1: 134/72 Code: 8480-6 BMI: 35.2 Code: 57444-7 Heart Rate 1: 71 bpm Height: 5' SpO2: 96% Weight: 183 lbs 12/21/2015 Blood Pressure 1: 148/90 Code: 8480-6 BMI: 34.6 Code: 02876-2 Heart Rate 1: 89 bpm Height: 5' SpO2: 96% Weight: 180 lbs 10/09/2015 Blood Pressure 1: 124/76 Code: 8480-6 BMI: 34.6 Code: 59682-7 Heart Rate 1: 88 bpm Height: 5' SpO2: 96% Weight: 180 lbs 06/12/2015 Blood Pressure 1: 148/74 Code: 8480-6 BMI: 33.4 Code: 22338-6 Heart Rate 1: 70 bpm Height: 5' SpO2: 96% Weight: 174 lbs 06/05/2015 Blood Pressure 1: 142/82 Code: 8480-6 BMI: 33.2 Code: 76495-9 Heart Rate 1: 72 bpm Height: 5' Weight: 173 lbs 05/15/2015 Blood Pressure 1: 118/80 Code: 8480-6 BMI: 33.6 Code: 38060-5 Heart Rate 1: 82 bpm Height: 5' Weight: 175 lbs 02/06/2015 Blood Pressure 1: 122/76 Code: 8480-6 BMI: 34.6 Code: 58995-6 Heart Rate 1: 58 bpm Height: 5' Weight: 180 lbs 01/10/2015 Blood Pressure 1: 158/90 Code: 8480-6 Blood Pressure 2: 152/90 Code: 8480-6 BMI: 34.6 Code: 44436-1 Heart Rate 1: 68 bpm Height: 5' Weight: 180 lbs 07/19/2014 Blood Pressure 1: 142/78 Code: 8480-6 BMI: 33.6 Code: 21135-3 Heart Rate 1: 56 bpm Height: 5' Weight: 175 lbs 06/17/2014 Blood Pressure 1: 128/86 Code: 8480-6 Heart Rate 1: 66 bpm SpO2: 98% Weight: 172 lbs 04/19/2014 Blood Pressure 1: 152/82 Code: 8480-6 BMI: 32.5 Code: 54030-6 Heart Rate 1: 60 bpm Height: 5' Weight: 169 lbs 04/11/2014 Blood Pressure 1: 120/80 Code: 8480-6 BMI: 33.4 Code: 19636-1 Heart Rate 1: 64 bpm Height: 5' Weight: 174 lbs 03/10/2014 Blood Pressure 1: 136/64 Code: 8480-6 BMI: 32.7 Code: 23228-8 Heart Rate 1: 76 bpm Height: 5' Weight: 170 lbs 02/02/2014 Blood Pressure 1: 160/76 Code: 8480-6 BMI: 32.7 Code: 00283-7 Heart Rate 1: 64 bpm Height: 5' Weight: 170 lbs 10/25/2013 Blood Pressure 1: 164/82 Code: 8480-6 BMI: 31.9 Code: 11241-1 Heart Rate 1: 60 bpm Height: 5' Weight: 166 lbs 08/24/2013 Blood Pressure 1: 138/88 Code: 8480-6 Heart Rate 1: 80 bpm Weight: 07/26/2013 Blood Pressure 1: 154/70 Code: 8480-6 Heart Rate 1: 72 bpm Weight: 162 lbs 06/30/2013 Blood Pressure 1: 182/86 Code: 8480-6 Heart Rate 1: 80 bpm Weight: 06/24/2013 Blood Pressure 1: 148/68 Code: 8480-6 BMI: 31.3 Code: 45544-4 Heart Rate 1: 72 bpm Height: 5' [...] 1: 142/88 Code: 8480-6 BMI: 30.6 Code: 37439-7 Heart Rate 1: 64 bpm Height: 5' [...] 1: 180/96 Code: 8480-6 BMI: 30.5 Code: 84884-0 Heart Rate 1: 76 bpm Height: 5' Respiratory Rate: 16 bpm Weight: 159 lbs 02/19/2012 Blood Pressure 1: 150/70 Code: 8480-6 Blood Pressure 2: 160/78 Code: 8480-6 Heart Rate 1: 76 bpm Respiratory Rate: 16 bpm Weight: 158 lbs 01/23/2012 Blood Pressure 1: 140/84 Code: 8480-6 BMI: 30.3 Code: 75891-5 Heart Rate 1: 68 bpm Height: 5' Respiratory Rate: 16 bpm SpO2: 98% Temperature: 37.0 (C ) / 98.6 (F) Weight: 158 lbs 01/02/2012 Blood Pressure 1: 142/92 Code: 8480-6 BMI: 30.7 Code: 82107-1 Heart Rate 1: 72 bpm Height: 5' Respiratory Rate: 16 bpm Weight: 160 lbs 12/20/2011 Blood Pressure 1: 170/84 Code: 8480-6 BMI: 30.0 Code: 01582-0 Heart Rate 1: 70 bpm Height: 5' [...] 06/12/2015 None rash Location-Head/Neck on the right [facility] 06/12/2015 None rash Location-Head/Neck on the right [...] Encounters Encounter Performer Loca tion Codes Date ([id number]) [id number] EST. P ATIENT, LEVEL III Diagnosis: Cough[ICD10: R05] Diagnosis: Acute upper respiratory infection, unspecified[ICD10: J06.9] Kacy Varela MD, [facility] CPT-4: 87234 01/21/2019 ([id number]) [id number] EST. P ATIENT, LEVEL IV Diagnosis: Essential (primary) hypertension[ICD10: I10] Diagnosis: Mixed hyperlipidemia[ICD10: E78.2] Zoya Varela MD, [facility] CPT- 4: 90856 10/14/2018 ([id number]) 29503 EST. P ATIENT, LEVEL III Diagnosis: Essential (primary) hypertension[ICD10: I10] Diagnosis: Other specified cardiac arrhythmias[ICD10: I49.8] Zoya Varela MD, [facility] CPT-4: 37789 09/22/2018 ([id number]) 89602 EST. P ATIENT, LEVEL IV Diagnosis: Essential (primary) hypertension[ICD10: I10] Diagnosis: Allergic rhinitis due to pollen[ICD10: J30.1] Diagnosis: Sciatica, right side[ICD10: M54.31] Zoya Varela MD, [facility] CPT- 4: 99107 08/17/2018 ([id number]) 90008 EST. 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 P ATIENT, LEVEL III Diagnosis: Acute upper respiratory infection, unspecified[ICD10: J06.9] Kacy Varela MD, [facility] CPT-4: 39015 05/04/2018 ([id number]) 17679 EST. P ATIENT, LEVEL IV Diagnosis: Essential (primary) hypertension[ICD10: I10] Diagnosis: Type 2 diabetes mellitus without complications[ICD10: E11.9] Diagnosis: Mixed hyperlipidemia[ICD10: E78.2] Diagnosis: Localized edema[ICD10: R60.0] Zoya Varela MD, [facility] CPT-4: 95822 02/04/2018 ([id number]) 71512 EST. P ATIENT, LEVEL IV Diagnosis: Essential (primary) hypertension[ICD10: I10] Zoya Varela MD, [facility] CPT-4: 95480 09/17/2017 ([id number]) 44070 EST. P ATIENT, LEVEL III Diagnosis: Allergic contact dermatitis due to plants, except food[ICD10: L23.7] Kacy Varela MD, [facility] CPT-4: 53046 06/23/2017 ([id number]) 78571 EST. P ATIENT, LEVEL IV Diagnosis: Essential (primary) hypertension[ICD10: I10] Diagnosis: Mixed hyperlipidemia[ICD10: E78.2] Zoya Varela MD, [facility] CPT- 4: 76345 05/13/2017 ([id number]) 01454 EST. P ATIENT, LEVEL III Diagnosis: Allergic contact dermatitis due to plants, except food[ICD10: L23.7] Kacy Varela MD, [facility] CPT-4: 09434 03/21/2017 37470 EST. PATIENT, LEVEL III Diagnosis: Bitten or stung by nonvenomous insect and other nonvenomous arthropods, initial encounter[ICD10: W57.XXXA] Diagnosis: Cellulitis of left lower limb[ICD10: L03.116] Laura Varela MD, [facility] [facility] CPT-4: 14441 03/19/2017 ([id number]) 45862 EST. P ATIENT, LEVEL IV Diagnosis: Type 2 diabetes mellitus without complications[ICD10: E11.9] Diagnosis: Essential (primary) hypertension[ICD10: I10] Diagnosis: Other specified epidermal thickening[ICD10: L85.8] Zoya Varela MD, C CPT-4: 49656 01/14/2017 81494 EST. PATIENT, LEVEL III Diagnosis: Glossodynia[ICD10: K14.6] Kacy Varela MD, [facility] CPT- 4: 80989 09/23/2016 ([id number]) 88437 EST. P ATIENT, LEVEL IV Diagnosis: Encounter for screening mammogram for malignant neoplasm of breast[ICD10: Z12.31] Diagnosis: Encounter for immunization[ICD10: Z23] Zoya Varela MD, [facility] CPT-4: 39902 09/16/2016 ([id number]) 30878 EST. P ATIENT, LEVEL III Diagnosis: Diseases of lips[ICD10: K13.0] Diagnosis: Allergic rhinitis due to pollen[ICD10: J30.1] Kacy Varela MD, [facility] CPT-4: 11338 06/25/2016 ([id number]) 97146 EST. P ATIENT, LEVEL III Diagnosis: Essential (primary) hypertension[ICD10: I10] Kacy Varela MD, [facility] CPT-4: 19820 06/17/2016 77158 EST. PATIENT, LEVEL IV Diagnosis: Other acute sinusitis[ICD10: J01.80] Diagnosis: Acute laryngopharyngitis[ICD10: J06.0] Diagnosis: Other allergic rhinitis[ICD10: J30.89] Laura Varela MD, [facility] CPT-4: 80011 04/03/2016 ([id number]) 70277 EST. P ATIENT, LEVEL IV Diagnosis: Essential (primary) hypertension[ICD10: I10] Diagnosis: Localized edema[ICD10: R60.0] Diagnosis: Polyneuropathy, unspecified[ICD10: G62.9] Zoya Varela MD, [facility] CPT-4: 67218 03/13/2016 ([id number]) 58154 EST. P ATIENT, LEVEL IV Diagnosis: Essential (primary) hypertension[ICD10: I10] Diagnosis: Localized edema[ICD10: R60.0] Diagnosis: Type 2 diabetes mellitus without complications[ICD10: E11.9] Zoya Varela MD, [facility] CPT-4: 40207 01/30/2016 52874 EST. PATIENT, LEVEL IV Diagnosis: Localized edema[ICD10: R60.0] Laura Varela MD, [facility] CPT-4: 52844 12/21/2015 ([id number]) 30305 EST. P ATIENT, LEVEL III Diagnosis: Essential (primary) hypertension[ICD10: I10] Diagnosis: Allergic rhinitis due to pollen[ICD10: J30.1] Diagnosis: Cervicalgia[ICD10: M54.2] Kacy Varela MD, [facility] CPT- 4: 75937 10/09/2015 55527 EST. PATIENT, LEVEL II Diagnosis: Contact dermatitis[ICD9: 692.9] Kacy Varela MD, [facility] CPT- 4: 11053 06/12/2015 ([id number]) 05913 EST. P ATIENT, LEVEL III Diagnosis: ESSENTIAL HYPERTENSION[ICD9: 401.9] Diagnosis: DIABETES TYPE II[ICD9: 250.00] Diagnosis: Anxiety[ICD9: 300.00] Kacy Varela MD, [facility] CPT-4: 95319 06/05/2015 ([id number]) 72820 EST. P ATIENT, LEVEL IV Diagnosis: Anxiety[ICD9: 300.00] Diagnosis: ALLERGIC RHINITIS[ICD9: 477.9] Diagnosis: ESOPHAGEAL REFLUX[ICD9: 530.81] Kacy Varela MD, [facility] CPT- 4: 08267 05/15/2015 ([id number]) 36362 EST. P ATIENT, LEVEL III Diagnosis: ESSENTIAL HYPERTENSION[ICD9: 401.9] Zoya Varela MD, [facility] CPT- 4: 17301 02/06/2015 ([id number]) 21938 EST. P ATIENT, LEVEL IV Diagnosis: ESSENTIAL HYPERTENSION[ICD9: 401.9] Diagnosis: EDEMA[ICD9: 782.3] Diagnosis: DIABETES TYPE II[ICD9: 250.00] Zoya Varela MD, [facility] CPT-4: 19826 01/10/2015 ([id number]) 46088 EST. P ATIENT, LEVEL IV Diagnosis: ESSENTIAL HYPERTENSION[ICD9: 401.9] Diagnosis: DIABETES TYPE II[ICD9: 250.00] Zoya Varela MD, [facility] CPT-4: 88702 07/19/2014 ([id number]) 13602 EST. P ATIENT, LEVEL III Diagnosis: Left ankle pain[ICD9: 719.47] Kacy Varela MD, [facility] CPT- 4: 46365 06/17/2014 ([id number]) 06524 EST. P ATIENT, LEVEL III Diagnosis: ESSENTIAL HYPERTENSION[ICD9: 401.9] Diagnosis: Elevated blood sugar[ICD9: 790.29] Zoya Varela MD, [facility] CPT- 4: 65183 04/19/2014 ([id number]) 08106 EST. P ATIENT, LEVEL IV Diagnosis: ESSENTIAL HYPERTENSION[SNOMED: 43766150] Diagnosis: ESOPHAGEAL REFLUX[ICD9: 530.81] Zoya Varela MD, [facility] CPT-4: 28943 04/11/2014 ([id number]) 53100 EST. P ATIENT, LEVEL IV Diagnosis: ALLERGIC RHINITIS[ICD9: 477.9] Diagnosis: Anxiety[ICD9: 300.00] Diagnosis: Dyspnea[ICD9: 786.09] Diagnosis: ESOPHAGEAL REFLUX[ICD9: 530.81] Kacy Vraela MD, [facility] CPT- 4: 87511 03/10/2014 ([id number]) 30431 EST. P ATIENT, LEVEL III Diagnosis: ALLERGIC RHINITIS[ICD9: 477.9] Diagnosis: ESSENTIAL HYPERTENSION[SNOMED: 38593960] Kacy Varela MD, [facility] CPT-4: 85355 02/02/2014 ([id number]) 15771 EST. P ATIENT, LEVEL III Diagnosis: ESSENTIAL HYPERTENSION[SNOMED: 98704202] Diagnosis: Skin irritation[ICD9: 709.9] Zoya Varela MD, [facility] CPT-4: 19270 10/25/2013 ([id number]) 75402 EST. P ATIENT, LEVEL III Diagnosis: HYPERLIPIDEMIA[ICD9: 272.4] Diagnosis: ESSENTIAL HYPERTENSION[SNOMED: 10725075] Diagnosis: EDEMA[ICD9: 782.3] Diagnosis: Encounter for long-term (current) use of other medications[ICD9: V58.69] Zoya Varela MD, [facility] CPT-4: 36457 08/24/2013 ([id number]) 14962 EST. P ATIENT, LEVEL III Diagnosis: ESSENTIAL HYPERTENSION[SNOMED: 67007017] Zoya Varela MD, C CPT-4: 13963 07/26/2013 ([id number]) 06046 EST. P ATIENT, LEVEL III Diagnosis: ESSENTIAL HYPERTENSION[SNOMED: 09780602] Zoya Varela MD, C CPT-4: 84549 06/30/2013 ([id number]) 81551 EST. P ATIENT, LEVEL III Diagnosis: ESSENTIAL HYPERTENSION[SNOMED: 07569227] Zoya Varela MD, C CPT-4: 38872 06/24/2013 ([id number]) 92203 EST. P ATIENT, LEVEL IV Diagnosis: ESSENTIAL HYPERTENSION[SNOMED: 22040001] Diagnosis: Leg pain[ICD9: 729.5] Diagnosis: Leg swelling[ICD9: 729.81] Zoya Varela MD, [facility] CPT-4: 55975 12/01/2012 ([id number]) 98382 EST. P ATIENT, LEVEL III Diagnosis: Shingles[ICD9: 053.9] Zoya Varela MD, [facility] CPT-4: 94918 10/19/2012 ([id number]) 51487 EST. P ATIENT, LEVEL IV Diagnosis: EDEMA[ICD9: 782.3] Diagnosis: ESSENTIAL HYPERTENSION[SNOMED: 80841204] Zoya Varela MD, C CPT-4: 89258 10/07/2012 ([id number]) 84626 EST. P ATIENT, LEVEL IV Diagnosis: ESSENTIAL HYPERTENSION[SNOMED: 68111386] Diagnosis: EDEMA[ICD9: 782.3] Diagnosis: Irritable bowel disease[ICD9: 564.1] Zoya Varela MD, [facility] CPT-4: 77474 2012 ([id number]) 76763 EST. P ATIENT, LEVEL III Diagnosis: ESSENTIAL HYPERTENSION[SNOMED: 04208351] Zoya Varela MD, C CPT-4: 61587 08/18/2012 ([id number]) 17609 EST. P ATIENT, LEVEL III Diagnosis: ESSENTIAL HYPERTENSION[SNOMED: 54483062] Zoya Varela MD, C CPT-4: 75259 08/04/2012 ([id number]) 40098 EST. P ATIENT, LEVEL IV Diagnosis: ESSENTIAL HYPERTENSION[SNOMED: 90888871] Diagnosis: Lumbago[ICD9: 724.2] Diagnosis: HYPERLIPIDEMIA[ICD9: 272.4] Zoya Varela MD, [facility] CPT-4: 70528 07/01/2012 ([id number]) 39595 EST. P ATIENT, LEVEL III Diagnosis: ESSENTIAL HYPERTENSION[SNOMED: 25469404] Zoya Varela MD, [facility] CPT-4: 08045 05/20/2012 ([id number]) 67728 EST. P ATIENT, LEVEL IV Diagnosis: ESSENTIAL HYPERTENSION[SNOMED: 72513940] Diagnosis: Hot flash, menopausal[ICD9: 627.2] Zoya Varela MD, [facility] CPT- 4: 47856 04/20/2012 88564 EST. PATIENT, LEVEL IV Diagnosis: SPASM OF MUSCLE[ICD9: 728.85] Diagnosis: Back pain[ICD9: 724.5] Diagnosis: ESSENTIAL HYPERTENSION[SNOMED: 87463455] Zoya Varela MD, [facility] CPT-4: 68799 03/10/2012 ([id number]) 59264 EST. P ATIENT, LEVEL IV Diagnosis: COUGH[ICD9: 786.2] Diagnosis: Allergic rhinitis[ICD9: 477.9] Diagnosis: Malignant reactive hypertension[ICD9: 401.0] Zoya Varela MD, C CPT-4: 26243 02/25/2012 ([id number]) 53483 EST. P ATIENT, LEVEL III Diagnosis: ESSENTIAL HYPERTENSION[SNOMED: 37574023] Zoya Varela MD, [facility] CPT-4: 67815 02/19/2012 54977 EST. PATIENT, LEVEL IV Diagnosis: ESSENTIAL HYPERTENSION[SNOMED: 19358923] Diagnosis: Cough[ICD9: 786.2] Kacy Varela MD, [facility] CPT-4: 13310 01/23/2012 [id number]) 75471 EST. P ATIENT, LEVEL IV Diagnosis: HYPERLIPIDEMIA[ICD9: 272.4] Diagnosis: ESSENTIAL HYPERTENSION[SNOMED: 39147431] Zoya Varela MD, [facility] CPT-4: 70539 01/02/2012 OFFICE VISIT, NEW - LEVEL 4 Diagnosis: ESSENTIAL HYPERTENSION[SNOMED: 39789798] Diagnosis: HYPERLIPIDEMIA[ICD9: 272.4] Diagnosis: IMPACTED CERUMEN[ICD9: 380.4] Diagnosis: Muscle spasm[ICD9: 728.85] Diagnosis: CHRONIC TENSION HEADACHE[ICD9: 339.12] Diagnosis: Neck pain, chronic[ICD9: 723.1] Diagnosis: Change in skin mole[ICD9: 216.9] Zoya Varela MD, [facility] CPT-4: 89730 12/20/2011 Plan of Care Planned Activity Notes C odes Status Date Visit Plan: URI - Pt advised to inc rease fluids, vitamin C. Discussed natural and expected course of this diagnosis and need to alert me if symptoms do not follow expected course, or if any worse and i will send in an antibiotic. Patient verbalized understanding of plan. 01/21/2019 Patient Education: Patient Medication Summary Completed 01/21/2019 Appointment: Zoya Varela WPtel: [address] [place], [place] [id number] (15 min) Moderate 12/15/2018 Visit Plan: Hypertension [...] medications. 10/14/2018 Appointment: [phone] (15 min) Moderate 10/14/2018 Patient Education: Patient [...] metoprolol, will have pt go see her hotel front desk agent as we may need to consider stopping the beta ori completely versus potential need for pacemaker. 09/22/2018 Appointment: Zoya Varela WPtel: [phone] [facility] (15 min) Moderate 09/22/2018 Patient Education: Patient Medication Summary Completed 09/22/2018 Appointment: [facility]la [phone] (15 min) Moderate 09/09/2018 Visit Plan: Hypertension [...] she can be seen by Oncology in [place]. 06/08/2018 Appointment: Zoya Varela [facility]Ptel[phone] [place] (15 min) Moderate 06/08/2018 Patient Education: Patient Medication Summary Completed 06/08/2018 Visit Plan: URI - Pt advised to inc rease fluids, vitamin C. Discussed natural and expected course of this diagnosis and need to alert me if symptoms do not follow expected course, or if any worse. RX sent to patient's pharmacy. 05/04/2018 Appointment: [phone] [place] (30 min) Complex 05/04/2018 Patient [...] extremities. 02/04/2018 Appointment: Zoya Varela WPtel: [phone] [facility] (15 min) Moderate 02/04/2018 Patient Education: Patient Medication Summary Completed 02/04/2018 Visit Plan: Medicare Exam - today w miguel discussed the patients past history, immunizations, preventative [...] Summary Completed 02/03/2018 Appointment: Laura Velasco WPtel: [facility]5 [phone] [place] [address] - Annual Wellness Visit 01/28/2018 Appointment: Zoya Varela WPtel: [address] [place], [place] [phone] (15 min) Moderate 01/15/2018 Visit Plan: [...] Dr. Madison. 09/17/2017 Appointment: Zoya Varela WPtel: [facility]0 [facility] (15 min) Moderate 09/17/2017 Patient Education: Patient Medication Summary Completed 09/17/2017 Patient Education: Obesity Completed 09/17/2017 Patient Education: Hypertension Completed 09/17/2017 Care Plan: [employer] : 95693-1 Pending 09/17/2017 Visit Plan: Poison Sarah -kenalog inj ection today in the office-start prednisone tomorrow pt is to use topical treatments as directed. Pt is cleanse clothing in hot water with soap, and call if symptoms do not improve or if they worsen. 06/23/2017 Appointment: Kacy Moses WPtel: [phone] [phone] (15 min) Moderate 06/23/2017 Patient Education: Patient [...] medications. 05/13/2017 Appointment: Zoya Varela WPtel: [phone] [facility] (15 min) Moderate 05/13/2017 Patient Education: Patient [...] they worsen. 03/21/2017 Appointment: [phone] (15 min) Moderate 03/21/2017 Patient Education: [...] in pain. 03/19/2017 Appointment: Laura Velasco WPtel: [facility]5 [facility] (15 min) Moderate 03/19/2017 Patient Education: Patient [...] in hearing. 01/22/2017 Appointment: Laura Velasco WPtel: [facility]5 [facility] [facility] - Annual Wellness Visit 01/22/2017 Appointment: Nurse [...] at home. 01/14/2017 Appointment: Zoya Varela WPtel: [facility]3 [facility] (15 min) Moderate 01/14/2017 Patient Education: Patient [...] of plan. 09/23/2016 Appointment: Kacy Moses WPtel: [facility]7 [phone] [place] (15 min) Moderate 09/23/2016 Patient Education: [...] medications. 09/16/2016 Appointment: Zoya Varela [facility]Ptel: [phone] (15 min) Moderate 09/16/2016 Patient Education: Patient Medication Summary Completed 09/16/2016 Patient Education: Obesity Completed 09/16/2016 Care Plan: [employer] : 52755-8 Pending 09/16/2016 Visit Plan: Cracked/painful lips-ba cterial [...] Appointment: Kacy Moses WPtel: [facility]5 [phone] (15 min) Moderate 06/25/2016 Patient Education: Patient [...] spray. 04/03/2016 Appointment: Kacy Moses WPtel: [phone] [phone] (30 min) Complex 04/03/2016 Patient Education: Patient [...] Appointment: Zoya Varela WPtel: [facility]5 [facility] (15 min) Moderate 02/28/2016 Appointment: Zoya Varela WPtel: [facility]5 [facility] (15 min) Moderate 02/01/2016 Visit Plan: Hypertension [...] for treatment. 01/30/2016 Appointment: Zoya Varela WPtel: [address] [place] [address] (15 min) Moderate 01/30/2016 Patient Education: Patient [...] at home. 02/06/2015 Appointment: Zoya Varela WPtel: [facility] Follow up 02/06/2015 Patient [...] peripheral edema. 01/10/2015 Appointment: Zoya Varela WPtel: [facility]5 [facility] Sick 01/10/2015 Patient Education: Patient Medication Summary [...] less controlled. 07/19/2014 Appointment: Zoya Varela WPtel: [facility]9 [facility] Follow up 07/19/2014 Patient Education: Patient Medication Summary Completed 07/19/2014 Patient Education: Hypertension Completed 07/19/2014 Care Plan: [employer] LO[employer] : 73094-8 Ordered 07/19/2014 Visit Plan: Left ankle pain-sprain- [...] home. 04/19/2014 Appointment: Kacy Moses WPtel: [phone] [phone] Diabetic education 04/19/2014 Patient Education: Patient Medication Summary Completed 04/19/2014 Patient Education: Hypertension Completed 04/19/2014 Visit Plan: Hypertension - well con trinhed [...] to medications. 04/11/2014 Appointment: Zoya Varela WPtel: [address] [place] [address] Follow up 04/11/2014 Patient Education: Patient Medication [...] spray in the nasal steroid allergy spray. Ffytvqr-mdfgjuclzztk-zidwcxp xanax at bedtime Esophageal Reflux - the patient has been counseled against excessive intake of caffiene, spicy foods, peppermint, and cinnamon - all of which can exacerbate esophageal reflux. The patient is to take medications as prescribed and call the office if the symptoms are not improving. 03/10/2014 Appointment: Zoya Varela WPtel: [phone] [facility] Other 03/10/2014 Patient Education: Patient Medication Summary [...] allergy spray. 02/02/2014 Appointment: Kacy Moses WPtel: [facility]5 [phone] [place] [address] Other 02/02/2014 Patient Education: Patient Medication Summary [...] the site. 10/25/2013 Appointment: Zoya Varela WPtel: [facility]1 [facility] [place] Follow up 10/25/2013 Patient Education: Patient Medication [...] BEDTIME 08/24/2013 Appointment: Zoya Varela WPtel: [phone] [facility] Follow up 08/24/2013 Patient Education: Patient Medication [...] acute concerns. 07/26/2013 Appointment: Zoya Varela WPtel: [phone] [facility] [place] Follow up 07/26/2013 Patient Education: Patient Medication [...] NOT IMPROVE. 06/30/2013 Appointment: Zoya Varela WPtel: [address] [place] [address] Other 06/30/2013 Patient Education: Patient Medication Summary [...] acute concerns. 06/24/2013 Appointment: Kacy Moses WPtel: [address] [place] [phone] [place] [address] Follow up 06/24/2013 Patient Education: Patient Medication Summary Completed 06/24/2013 Patient Education: Hypertension Completed 06/24/2013 Appointment: Zoya Varela WPtel: [address] [place], [place] [address] Other 03/23/2013 Visit Plan: Hypotension - pt is on chronic antihypertensive medication - the medication has been adjusted down to attempt to alleviate the low blood pressures. Leg pain - Leg swelling - pt to have ultrasound on her right lower leg due to post-operative swelling and pain. 12/01/2012 Appointment: Zoya Varela [facility]Ptel: [phone] Follow up 12/01/2012 Patient Education: Patient Medication Summary Completed 12/01/2012 Patient Education: Hypertension Completed 12/01/2012 Appointment: Zoya Varela WPtel: [facility]5 [facility] Follow up 10/20/2012 Visit Plan: Shingles - [...] 10/19/2012 Appointment: Zoya Varela WPtel: [facility]5 [facility] Other 10/19/2012 Patient Education: Patient Medication Summary [...] edema. 10/07/2012 Appointment: Kacy Moses WPtel: [phone] [phone] [place] Other 10/07/2012 Patient Education: Hypertension Completed [...] edema. 2012 Appointment: Zoya Varela WPtel: [phone] [facility] Other 2012 Patient Education: Patient Medication Summary [...] EVENING. 08/18/2012 Appointment: Zoya Varela WPtel: [phone] [facility] Follow up 08/18/2012 Patient Education: Patient Medication [...] Varela WPtel: [phone] [facility] Follow up 08/04/2012 Patient Education: Patient Medication [...] for acute concerns. CUT THE AMLODIPINE IN 11/04 AND TAKE ONE HALF OF THE AMLODIPINE AT BEDTIME AND ONEHALF OF THE AMLODIPINE IN THE MORNING. Back pain/ nerve pain- recommended pt to start on gabapentin 100 mg at night x 1 week, then increase to twice daily. 07/01/2012 Appointment: Zoya Varela WPtel: [facility]6 [facility] Other 07/01/2012 Patient Education: Patient Medication Summary [...] two weeks 05/20/2012 Appointment: Zoya Varela WPtel: [facility]5 [facility] Follow up 05/20/2012 Patient Education: Patient Medication Summary Completed 05/20/2012 Patient Education: High Blood Pressure: Essential Hypertension Completed 05/20/2012 Appointment: Zoya Varela WPtel: [facility] Other 05/11/2012 Visit Plan: Hypertension - uncontro [...] dosing. 04/20/2012 Appointment: Zoya Varela WPtel: [phone] [facility] Follow up 04/20/2012 Patient Education: Patient Medication [...] weeks. 03/10/2012 Appointment: Z[facility] V[facility]la [facility]Ptel: [phone] Other 03/10/2012 Patient Education: Patient Medication Summary [...] codeine. 02/25/2012 Appointment: Zoya Varela WPtel: [phone] [facility]66[facility] Other 02/25/2012 Patient Education: Patient Medication Summary [...] office. 02/19/2012 Appointment: Zoya Varela WPtel: [phone] [facility]66[facility] Other 02/19/2012 Patient Education: Patient Medication Summary [...] injection today in the office 01/23/2012 Appointment: [facility]ie [phone] [place] 01/23/2012 Patient Education: Patient Medication [...] DAILY. 01/02/2012 Appointment: Zoya Varela [facility]Ptel: [phone] [place] Other [...] 2 wks. 12/20/2011 Appointment: Zoya Varela WPtel: [address] [place] [address] New Patient 12/20/2011 Patient Education: Patient Medication [...] metoprolol, will have pt go see her hotel front desk agent as we may need to consider stopping [...] for treatment. . If the clonidine p [facility] has the blood pressures at or [...] a prescription for an antibiotic, doxycycline, to [facility]. It is twice daily. Take it until [...] she can be seen by Oncology in [place]. . Tick - tick with h ead [...] spray in the nasal steroid allergy spray. Njbvluh-ukkqlwdrbjfq-rhbbjnw xanax at bedtime Esophageal Reflux - the [...]
--- OUTSIDE RECORDS SUMMARY | 2020-05-26 03:30 | XMS REPORT | CCD ---
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 Name Role Phone PP Unavailable CCM Unavailable Summary Purpose Interface Exchange Insurance Providers Payer name Policy type / Coverage type Covered green party ID Effective Begin Date Effective End Date WPS Medicare Part B Medicare Part B [id number] Unknown MEDICO INSURANCE [place] [employer] Medicare Part B [id number] Unknown Family history Mother Diagnosis Age At Onset Liver Failure Unknown Diabetes mellitus Type 2 Unknown Hyperlipidemia Unknown Hypertension Unknown Cancer Unknown Arthritis Unknown Father Diagnosis Age At Onset Liver Failure Unknown Cancer Unknown Social History Social History Element Codes Description Effective Dates Marital status Unknown M arried 12/12/2011 Number of children Unknown 3 12/12/[address]: 3440152 Former smoker quit in 199212/12/2011 Allergies, Adverse [...] Instructions cyclobenzaprine 10 m g tablet RxNorm: 394608 TAKE ONE TABLET BY [facility] EVERY 8 HOURS NEEDED 11/12/2018 12/01/2018 Active tramadol 50 mg tablet RxNorm: 488498 1-2 Tablet(s) PO Q8 as needed 10/02/2018 11/30/2018 Ac tive metoprolol tartrate 100 mg tablet RxNorm: 070409 1 Tablet(s) BID 09/22/2018 09/20/2019 Active metoprolol tartrate 100 mg tablet RxNorm: 368330 TAKE ONE AND ONE-HALF (1 1/2) TABLETS BY MOUTH EVERY MORNING AND TAKE TWO TABLETS BY MOUTH EVERY EVENING 09/21/2018 09/21/2018 In active Xanax 0.25 mg tablet RxNorm: 942886 1/2-1 Tablet(s) PO QDAY PRN 08/19/2018 11/16/2018 Active cyclobenzaprine 10 m g tablet RxNorm: 936454 TAKE ONE TABLET BY MO [facility] EVERY 8 HOURS NEEDED 07/01/2018 08/09/2018 Inactive atorvastatin 20 mg t ablet RxNorm: 227875 TAKE ONE TABLET BY MO [facility] DAILY 06/29/2018 12/25/2018 Ac tive atorvastatin 20 mg t ablet RxNorm: 014132 TAKE ONE TABLET BY MO [facility] DAILY 06/29/2018 06/28/2018 In active pilocarpine 5 mg tablet RxNorm: 2238508 1 Tablet(s) PO BID 06/09/2018 06/08/2018 Inactive pilocarpine 5 mg tablet RxNorm: 5426195 1 Tablet(s) PO BID for dry mouth 06/09/2018 09/21/2018 In active Evoxac 30 mg capsule RxNorm: 577661 1 Capsule(s) PO BID as needed dry mouth 06/08/2018 06/08/2018 In active may substitute generic cyclobenzaprine 10 m g tablet RxNorm: 520147 TAKE ONE TABLET BY MO U[facility] EVERY 8 HOURS NEEDED 05/14/2018 06/30/2018 Inactive amoxicillin 500 mg c apsule RxNorm: 377213 1 Capsule(s) PO BID 05/04/2018 05/13/2018 Inactive amoxicillin 500 mg c apsule RxNorm: 364115 1 Capsule(s) PO BID 05/04/2018 05/03/2018 Inactive tramadol 50 mg tablet RxNorm: 495699 1-2 Tablet(s) PO Q8 as needed 04/24/2018 06/21/2018 In active Kenalog 40 mg/mL sylvia pension for injection RxNorm: 6281744 Milliliter(s) Inj 04/24/2018 04/24/2018 In active amlodipine 5 mg tablet RxNorm: 858340 Tablet(s) TAKE ONE TABLET BY MOUTH DAILY 04/02/2018 03/27/2019 Ac tive Xanax 0.25 mg tablet RxNorm: 465763 1/2-1 Tablet(s) PO QDAY PRN 04/02/2018 10/13/2018 Inactive metoprolol tartrate 100 mg tablet RxNorm: 746802 TAKE ONE AND ONE-HALF (1 1/2) TABLETS BY MOUTH EVERY MORNING AND TAKE TWO TABLETS BY MOUTH EVERY EVENING 02/25/2018 09/20/2018 In active Keflex 500 mg capsule RxNorm: 419528 1 Capsule(s) PO TID 02/06/2018 02/15/2018 Inactive Keflex 500 mg capsule RxNorm: 703438 1 Capsule(s) PO TID 02/06/2018 02/05/2018 Inactive Zithromax Z-Kush 250 mg tablet RxNorm: 951671 1 Tablet(s) PO UD 02/02/2018 02/06/2018 Inactive 2 tabs on day 1 then 1 tab daily on days 2-5 doxazosin 4 mg tablet RxNorm: 266418 TAKE ONE AND ONE-HALF (1 & 1/2) TABLET B Y MOUTH BY MOUTH TWO TIMES A DAY 01/16/2018 11/11/2018 Inactive atorvastatin 20 mg t ablet RxNorm: 441007 TAKE ONE TABLET BY MO [facility] DAILY 12/31/2017 06/28/2018 In active furosemide 20 mg tablet RxNorm: 410591 TAKE ONE TABLET BY MOUTH DAILY NEEDED FOR EDEMA 12/26/2017 06/23/2018 Inactive potassium chloride E R 10 mEq tablet,extended release RxNorm: 262217 TAKE ONE TABLET BY MOUTH NEEDED WITH LASIX 12/26/2017 06/23/2018 Inactive Xanax 0.25 mg tablet RxNorm: 966209 1/2-1 Tablet(s) PO QDAY PRN 11/27/2017 08/18/2018 Inactive cyclobenzaprine 10 m g tablet RxNorm: 561093 TAKE ONE TABLET BY MO U[facility] EVERY 8 HOURS NEEDED 11/21/2017 02/08/2018 Inactive tramadol 50 mg tablet RxNorm: 310585 1-2 Tablet(s) PO Q8 as needed 10/28/2017 01/23/2018 In active metoprolol tartrate 100 mg tablet RxNorm: 733082 TAKE ONE AND ONE-HALF (1 1/2) TABLETS BY MOUTH EVERY MORNING AND TAKE TWO TABLETS BY MOUTH EVERY EVENING 10/28/2017 02/24/2018 In active cyclobenzaprine 10 m g tablet RxNorm: 976996 TAKE ONE TABLET BY MO U[facility] EVERY 8 HOURS NEEDED 08/27/2017 10/25/2017 Inactive Xanax 0.25 mg tablet RxNorm: 494151 1/2-1 Tablet(s) PO QDAY PRN 08/04/2017 04/01/2018 Inactive cyclobenzaprine 10 m g tablet RxNorm: 010273 TAKE ONE TABLET BY MO U[facility] EVERY 8 HOURS NEEDED 07/28/2017 08/16/2017 Inactive metoprolol tartrate 100 mg tablet RxNorm: 697059 TAKE ONE AND ONE-HALF (1 & 1/2) TABLET BY MOUTH EVERY MORNING AND TAKE TWO TABLETS BY MOUTH EVERY EVENING 07/28/2017 10/25/2017 In active cyclobenzaprine 10 m g tablet RxNorm: 594472 TAKE ONE TABLET BY MO U[facility] EVERY 8 HOURS NEEDED 06/30/2017 07/19/2017 Inactive prednisone 10 mg tab lets in a dose pack RxNorm: 790405 1 Tablet(s) PO UD 06/23/2017 06/28/2017 In active 6-5-4-3-2-1 mupirocin 2 % topica l ointment RxNorm: 357443 1 Application TOP BID 06/23/2017 07/02/2017 Inactive Kenalog 40 mg/mL sylvia pension for injection RxNorm: 6564830 Milliliter(s) Inj 06/23/2017 06/23/2017 In active cyclobenzaprine 10 m g tablet RxNorm: 755568 TAKE ONE TABLET BY MO U[facility] EVERY 8 HOURS NEEDED 06/09/2017 06/28/2017 Inactive meclizine 25 mg tablet RxNorm: 871796 1 Tablet(s) PO Q6 PRN as needed 1/2 - 1 pill every 6 hours as needed for vertigo 06/03/2017 07/14/2017 Inactive atorvastatin 20 mg t ablet RxNorm: 379651 TAKE ONE TABLET BY MO U[facility] DAILY 05/30/2017 11/25/2017 In active amlodipine 5 mg tablet RxNorm: 357131 TAKE ONE TABLET BY MOUTH DAILY 05/15/2017 04/01/2018 In active cyclobenzaprine 10 m g tablet RxNorm: 265442 TAKE ONE TABLET BY MO [facility] EVERY 8 HOURS NEEDED 05/07/2017 05/26/2017 Inactive tramadol 50 mg tablet RxNorm: 947879 1-2 Tablet(s) PO Q8 as needed 04/07/2017 07/04/2017 In active cyclobenzaprine 10 m g tablet RxNorm: 562730 TAKE ONE TABLET BY MO U[facility] EVERY 8 HOURS NEEDED 04/07/2017 04/26/2017 Inactive Xanax 0.25 mg tablet RxNorm: 739102 1/2-1 Tablet(s) PO QDAY PRN 04/04/2017 06/02/2017 Inactive metoprolol tartrate 100 mg tablet RxNorm: 702905 TAKE ONE AND ONE-HALF (1 & 1/2) TABLET BY MOUTH EVERY MORNING AND TAKE TWO TABLETS BY MOUTH EVERY EVENING 03/28/2017 07/25/2017 In active prednisone 10 mg tab lets in a dose pack RxNorm: 863939 1 Tablet(s) PO UD 03/21/2017 03/26/2017 In active 6-5-4-3-2-1 Kenalog 40 mg/mL sylvia pension for injection RxNorm: 8936342 2 Milliliter(s) Inj 03/21/2017 03/21/2017 In active doxycycline hyclate 100 mg capsule RxNorm: 8407170 1 Capsule(s) PO BID 03/19/2017 03/28/2017 In active cyclobenzaprine 10 m g tablet RxNorm: 446017 TAKE ONE TABLET BY MO U[facility] EVERY 8 HOURS NEEDED 02/25/2017 03/16/2017 Inactive triamcinolone aceton pineda 0.1 % topical ointment RxNorm: 1328766 1 Application TOP TI D 02/21/2017 02/20/2017 Inactive triamcinolone aceton pineda 0.1 % topical ointment RxNorm: 0954054 1 Application TOP TI D 02/21/2017 03/02/2017 Inactive doxazosin 4 mg tablet RxNorm: 084092 TAKE ONE AND ONE-HALF (1 & 1/2) TABLET B Y MOUTH BY MOUTH TWO TIMES A DAY 02/14/2017 01/09/2018 Inactive cyclobenzaprine 10 m g tablet RxNorm: 935069 TAKE ONE TABLET BY MO U[facility] EVERY 8 HOURS NEEDED 01/27/2017 02/15/2017 Inactive ammonium lactate 12 % topical cream RxNorm: 895016 1 Application TOP BID 01/14/2017 02/12/2017 In active dispense one bottle of the cream potassium chloride E R 10 mEq tablet,extended release RxNorm: 766494 1 Tablet(s) PO PRN as needed with lasix 11/13/2016 12/25/2017 Inactive prn swelling furosemide 20 mg tablet RxNorm: 871168 1 Tablet(s) PO daily as needed edema 11/13/2016 01/11/2017 In active metoprolol tartrate 100 mg tablet RxNorm: 014448 TAKE ONE AND ONE-HALF (1 & 1/2) TABLET BY MOUTH EVERY MORNING AND TAKE TWO TABLETS BY MOUTH EVERY EVENING 11/01/2016 03/27/2017 In active atorvastatin 20 mg t ablet RxNorm: 377720 TAKE ONE TABLET BY MO U[facility] DAILY 10/31/2016 04/28/2017 In active cyclobenzaprine 10 m g tablet RxNorm: 870724 TAKE ONE TABLET BY MO UT EVERY 8 HOURS NEEDED 10/25/2016 12/03/2016 Inactive Lyrica 25 mg capsule RxNorm: 839904 1 Tablet(s) PO BID 09/23/2016 01/13/2017 Inactive Lyrica 50 mg capsule RxNorm: 870827 1 Capsule(s) PO BID 09/16/2016 01/13/2017 Inactive amlodipine 5 mg tablet RxNorm: 321284 Tablet(s) TAKE ONE TABLET BY MOUTH DAILY 08/28/2016 05/14/2017 In active cyclobenzaprine 10 m g tablet RxNorm: 488207 TAKE ONE TABLET BY MO UT EVERY 8 HOURS NEEDED 08/05/2016 09/13/2016 Inactive Xanax 0.25 mg tablet RxNorm: 098116 1/2-1 Tablet(s) PO QDAY PRN 07/16/2016 04/03/2017 Inactive amlodipine 5 mg tablet RxNorm: 824018 TAKE ONE TABLET BY MOUTH DAILY 06/28/2016 08/26/2016 In active metoprolol tartrate 100 mg tablet RxNorm: 037663 Tablet(s) TAKE ONE AN D ONE-HALF (1 & 1/2) TABLET BY MOUTH EVERY MORNING AND TAKE TWO TABLETS BY MOUTH EVERY EVENING 05/02/2016 05/02/2016 Inactive metoprolol tartrate 100 mg tablet RxNorm: 487762 Tablet(s) PO TAKE ONE AND ONE-HALF (1 & 1/2) TABLET BY MOUTH EVERY MORNING AND TAKE TWO TABLETS BY MOUTH EVERY EVENING 05/02/2016 05/01/2016 Inactive metoprolol tartrate 100 mg tablet RxNorm: 307119 Tablet(s) PO TAKE ONE AND ONE-HALF (1 & 1/2) TABLET BY MOUTH EVERY MORNING AND TAKE TWO TABLETS BY MOUTH EVERY EVENING 05/02/2016 10/28/2016 Inactive atorvastatin 20 mg t ablet RxNorm: 299219 TAKE ONE TABLET BY MO UTH DAILY 04/25/2016 10/21/2016 In active tramadol 50 mg tablet RxNorm: 943020 1-2 Tablet(s) PO Q8 as needed 04/25/2016 10/27/2017 In active cyclobenzaprine 10 m g tablet RxNorm: 270094 Tablet(s) PO TAKE ONE TABLET BY MOUTH EVERY 8 HOURS NEEDED 04/18/2016 06/16/2016 Inactive Kenalog 40 mg/mL sylvia pension for injection RxNorm: 5033281 1 Milliliter(s) Inj 04/04/2016 04/04/2016 In active Phenergan with Codei ne Syrup RxNorm: PO 04/03/2016 No Stop Date Active Zithromax Z-Kush 250 mg tablet RxNorm: 484316 1 Tablet(s) PO UD 04/03/2016 04/07/2016 Inactive 2 tabs on day 1 then 1 tab daily on days 2-5 amlodipine 5 mg tablet RxNorm: 518035 TAKE ONE TABLET BY MOUTH DAILY 03/27/2016 06/24/2016 In active Flexeril 10 mg tablet RxNorm: 777920 TAKE ONE TABLET BY MOUTH EVERY 8 HOURS A S NEEDED 03/14/2016 04/02/2016 Inactive Vitamin B-12 ER 2,00 0 mcg tablet,extended release RxNorm: 992480 1 Tablet(s) PO daily 03/13/2016 No Stop Date Active Vitamin B-12 ER 2,00 0 mcg tablet,extended release RxNorm: 819405 1 Tablet(s) PO daily 03/13/2016 No Stop Date Active gabapentin 100 mg ca psule RxNorm: 132186 1 Capsule(s) PO BID 03/13/2016 09/15/2016 Inactive Flexeril 10 mg tablet RxNorm: 247515 Tablet(s) TAKE ONE TABLET BY MOUTH EVERY 8 HOURS NEEDED 02/08/2016 02/27/2016 Inactive Xanax 0.25 mg tablet RxNorm: 269285 1/2-1 Tablet(s) PO QDAY PRN 02/08/2016 07/15/2016 Inactive amlodipine 5 mg tablet RxNorm: 151942 1 Tablet(s) PO daily 02/06/2016 03/26/2016 Inactive furosemide 20 mg tablet RxNorm: 873453 1 Tablet(s) PO daily 01/30/2016 06/16/2016 Inactive amlodipine 10 mg tablet RxNorm: 699534 1/2 Tablet(s) PO daily 01/30/2016 02/05/2016 Inactive doxazosin 4 mg tablet RxNorm: 754879 1.5 Tablet(s) PO BID 01/30/2016 01/23/2017 Inactive Flexeril 10 mg tablet RxNorm: 263421 TAKE ONE TABLET BY MOUTH EVERY 8 HOURS A S NEEDED 01/10/2016 01/29/2016 Inactive potassium chloride E R 10 mEq tablet,extended release RxNorm: 879020 1 Tablet(s) PO PRN as needed with lasix 12/25/2015 06/16/2016 Inactive prn swelling amlodipine 10 mg tablet RxNorm: 836582 TAKE ONE TABLET BY MOUTH EVERY MORNING 12/25/2015 12/24/2015 In active amlodipine 10 mg tablet RxNorm: 841862 TAKE ONE TABLET BY MOUTH EVERY MORNING 12/25/2015 01/29/2016 In active furosemide 20 mg tablet RxNorm: 112676 1/2 Tablet(s) PO daily as needed edema 12/21/2015 01/19/2016 In active pt needs to take 10meq potassium on days she takes the lasix metoprolol tartrate 100 mg tablet RxNorm: 552472 TAKE ONE AND ONE-HALF (1 & 1/2) TABLET BY MOUTH EVERY MORNING AND TAKE TWO TABLETS BY MOUTH EVERY EVENING 11/08/2015 12/07/2015 In active Flonase Allergy Reli ef 50 mcg/actuation nasal spray,suspension RxNorm: [place] as needed PLACE 2 SPRAYS IN EACH NOSTRIL DAILY 10/09/2015 02/05/2016 Inactive Flexeril 10 mg tablet RxNorm: 418584 1 Tablet(s) PO TID PRN TAKE ONE TABLET B Y MOUTH EVERY 8 HOURS NEEDED 10/09/2015 12/07/2015 Inactive alprazolam 0.5 mg ta blet RxNorm: 004344 TAKE ONE TABLET BY MO [facility] AT BEDTIME NEEDED FOR ANXIETY 08/29/2015 11/23/2015 Inactive Flonase Allergy Reli ef 50 mcg/actuation nasal spray,suspension RxNorm: PLACE 2 SPRAYS IN EACH NOSTRIL DAILY 07/06/2015 10/08/2015 Inactive Kenalog 40 mg/mL sylvia pension for injection RxNorm: 1852772 Milliliter(s) Inj 06/12/2015 06/12/2015 In active prednisone 10 mg tab lets in a dose pack RxNorm: 304886 1 Tablet(s) PO UD 06/12/2015 06/17/2015 In active 6-5-4-3-2-1 acyclovir 800 mg tablet RxNorm: 032235 1 Tablet(s) PO TID 06/12/2015 06/21/2015 Inactive Xanax 0.25 mg tablet RxNorm: 253507 1/2-1 Tablet(s) PO QDAY PRN 05/15/2015 02/07/2016 Inactive Flonase Allergy Reli ef 50 mcg/actuation nasal spray,suspension RxNorm: 2 [place] NASAL daily 05/15/2015 06/13/2015 Inactive Kenalog 40 mg/mL sylvia pension for injection RxNorm: 0353556 Milliliter(s) Inj 05/15/2015 05/15/2015 In active metoprolol tartrate 100 mg tablet RxNorm: 236495 TAKE ONE AND ONE-HALF (1 & 1/2) TABLET BY MOUTH EVERY MORNING AND TAKE TWO TABLETS BY MOUTH EVERY EVENING 05/07/2015 06/05/2015 In active metoprolol tartrate 100 mg tablet RxNorm: 284070 TAKE ONE AND ONE-HALF (1 & 1/2) TABLET BY MOUTH EVERY MORNING AND TAKE TWO TABLETS BY MOUTH EVERY EVENING 04/05/2015 05/04/2015 In active amlodipine 10 mg tablet RxNorm: 134622 TAKE ONE TABLET BY MOUTH EVERY MORNING 03/10/2015 12/04/2015 In active alprazolam 0.5 mg ta blet RxNorm: 493763 TAKE ONE TABLET BY MO UTH EVERY NIGHT AT BEDTIME NEEDED FOR ANXIETY 02/23/2015 03/24/2015 Inactive (Response to an electronic controlled substance refill request - RxReferenceNumber: [id number]) alprazolam 0.5 mg ta blet RxNorm: 937534 1 Tablet(s) PO QHS as needed anxiety 02/23/2015 08/29/2015 In active (Response to an electronic controlled salas bstance refill request - RxReferenceNumber: [id number]) doxazosin 4 mg tablet RxNorm: 908116 TAKE ONE TABLET BY MOUTH TWICE A DAY 02/13/2015 01/29/2016 In active atorvastatin 20 mg t ablet RxNorm: 562239 TAKE ONE TABLET BY MO UTH EVERY DAY 01/19/2015 07/17/2015 In active atorvastatin 20 mg t ablet RxNorm: 870355 Tablet(s) TAKE ONE TA BLET BY MOUTH EVERY DAY 01/19/2015 01/18/2015 Inactive [SAVINGS FOR NON-COVERED DRUGS -- BIN:00 3585, PCN: [email or web address], Group: XXXXX, ID# [id number], Questions: . THIS IS NOT INSURANCE.] Maxzide-25mg 37.5 mg -25 mg tablet RxNorm: 55592 1 Tablet(s) PO daily 01/10/2015 10/08/2015 Inactive [SAVINGS FOR NON-COVERED DRUGS -- BIN:00 3585, PCN: [email or web address], Group: XXXXX, ID# [id number], Questions: . THIS IS NOT INSURANCE.] metoprolol tartrate 100 mg tablet RxNorm: 994671 TAKE ONE AND ONE-HALF (1 & 1/2) TABLET BY MOUTH EVERY MORNING AND TAKE TWO TABLETS BY MOUTH EVERY EVENING 12/05/2014 01/03/2015 In active Flexeril 10 mg tablet RxNorm: 775481 TAKE ONE TABLET BY MOUTH EVERY 8 HOURS A S NEEDED 10/31/2014 06/27/2015 Inactive alprazolam 0.5 mg ta blet RxNorm: 592136 1 Tablet(s) PO QHS TA KE ONE TABLET BY MOUTH EVERY NIGHT AT BEDTIME AND NEEDED FOR PANIC ATTACKS 10/21/2014 10/23/2014 Inactive (Appended: Controlled substance eRx refi ll - RxReferenceNumber: [id number]) alprazolam 0.5 mg ta blet RxNorm: 500670 TAKE ONE TABLET BY MO UTH EVERY NIGHT AT BEDTIME NEEDED FOR ANXIETY 10/20/2014 11/18/2014 Inactive (Response to an electronic controlled substance refill request - RxReferenceNumber: [id number]) amlodipine 10 mg tablet RxNorm: 377728 1 Tablet(s) PO QAM 09/09/2014 03/07/2015 Inactive now taking full tab [SAVINGS FOR UNINSURED PATIENTS -- BIN:[id number], PCN: [email or web address], [id number], Process claim through [employer], for questions: . THIS IS NOT INSURANCE.] metoprolol tartrate 100 mg tablet RxNorm: 865499 TAKE ONE AND ONE-HALF (1 & 1/2) TABLET BY MOUTH EVERY MORNING AND TAKE TWO TABLETS BY MOUTH EVERY EVENING 09/03/2014 10/02/2014 In active alprazolam 0.5 mg ta blet RxNorm: 530140 TAKE ONE TABLET BY MO UTH EVERY NIGHT AT BEDTIME AND NEEDED FOR PANIC ATTACKS 08/29/2014 09/12/2014 Inactive (Response to an electronic controlled substance refill request - RxReferenceNumber: [id number]) Zithromax Z-Kush 250 mg tablet RxNorm: 140287 1 Tablet(s) PO UD 07/26/2014 07/25/2014 Inactive 2 tabs on day 1 then 1 tab daily on days 2-5 Zithromax Z-Kush 250 mg tablet RxNorm: 898041 1 Tablet(s) PO UD 07/26/2014 07/30/2014 Inactive 2 tabs on day 1 then 1 tab daily on days 2-5 alprazolam 0.5 mg ta blet RxNorm: 905732 Tablet(s) PO TAKE ONE TABLET BY MOUTH EVERY NIGHT AT BEDTIME AND NEEDED FOR PANIC ATTACKS 07/08/2014 08/30/2014 Inactive (Appended: Controlled substance eRx refill - RxReferenceNumber: [id number]) atorvastatin 20 mg t ablet RxNorm: 501303 TAKE ONE TABLET BY MO UTH EVERY DAY 04/25/2014 01/18/2015 In active Carafate 1 gram tablet RxNorm: 342646 Tablet(s) PO TAKE ONE TABLET BY MOUTH FO UR TIMES A DAY 04/14/2014 10/08/2015 Inactive Fish Oil 1,000 mg ca psule RxNorm: 1 Capsule(s) PO TID 04/13/2014 10/08/2015 Inactive Flexeril 10 mg tablet RxNorm: 386495 1 Tablet(s) PO Q8 PRN 04/01/2014 04/10/2014 Inactive Carafate 1 gram tablet RxNorm: 598151 1 Tablet(s) PO QID 03/10/2014 04/08/2014 Inactive chlordiazepoxide-cli dinium 5 mg-2.5 mg capsule RxNorm: 562116 1 Capsule(s) PO TID P RN 03/10/2014 04/10/2014 Inactive doxazosin 4 mg tablet RxNorm: 836412 1 Tablet(s) PO BID 02/02/2014 02/12/2015 Inactive Kenalog 40 mg/mL sylvia pension for injection RxNorm: 1393743 Milliliter(s) Inj 02/02/2014 02/02/2014 In active atorvastatin 20 mg t ablet RxNorm: 714367 Tablet(s) PO TAKE ONE TABLET BY MOUTH EVERY DAY 01/10/2014 04/24/2014 Inactive alprazolam 0.5 mg ta blet RxNorm: 128903 Tablet(s) PO TAKE ONE TABLET BY MOUTH EVERY NIGHT AT BEDTIME AND NEEDED FOR PANIC ATTACKS 01/10/2014 07/07/2014 Inactive (Appended: Controlled substance eRx refill - RxReferenceNumber: [id number]) alprazolam 0.5 mg ta blet RxNorm: 861240 1 Tablet(s) PO QHS TA KE ONE TABLET BY MOUTH EVERY NIGHT AT BEDTIME AND NEEDED FOR PANIC ATTACKS 01/10/2014 10/20/2014 Inactive (Appended: Controlled substance eRx refi ll - RxReferenceNumber: [id number]) alprazolam 0.5 mg ta blet RxNorm: 554825 Tablet(s) PO TAKE ONE TABLET BY MOUTH EVERY NIGHT AT BEDTIME AND NEEDED FOR PANIC ATTACKS 01/10/2014 01/09/2014 Inactive (Appended: Controlled substance eRx refill - RxReferenceNumber: [id number]) Carafate 1 gram tablet RxNorm: 749825 1 Tablet(s) PO QID 12/16/2013 01/14/2014 Inactive Nexium 40 mg capsule ,delayed release RxNorm: 214750 Capsule(s) PO TAKE ON E CAPSULE BY MOUTH EVERY DAY 11/25/2013 03/12/2016 Inactive doxazosin 4 mg tablet RxNorm: 875781 1/2 Tablet(s) PO QPM 10/21/2013 10/20/2013 Inactive alprazolam 0.5 mg ta blet RxNorm: 448261 1 Tablet(s) PO as dir ected q hs and prn panic attacks 10/18/2013 01/10/2014 Inactive doxazosin 4 mg tablet RxNorm: 078617 1 q am 1/2 q pm Tablet(s) PO 09/21/2013 02/01/2014 Inactive doxazosin 4 mg tablet RxNorm: 459404 1 q am 1/2 q pm Tablet(s) PO 09/21/2013 09/20/2013 Inactive amlodipine 10 mg tablet RxNorm: 551714 1 Tablet(s) PO QAM 08/30/2013 08/24/2014 Inactive now taking full tab metoprolol tartrate 100 mg tablet RxNorm: 344472 2 Tablet(s) PO QPM 08/24/2013 10/22/2013 Inactive alprazolam 0.5 mg ta blet RxNorm: 691343 1 Tablet(s) PO as dir ected q hs and prn panic attacks 07/29/2013 10/17/2013 Inactive Benicar 20 mg tablet RxNorm: 293448 1 Tablet(s) PO daily 07/26/2013 08/09/2013 Inactive amlodipine 10 mg tablet RxNorm: 373603 1 Tablet(s) PO QAM 07/19/2013 08/29/2013 Inactive cyclobenzaprine 5 mg tablet RxNorm: 532659 1 Tablet(s) PO TID [place] N one pill every 8 hours as needed for muscle spasms. 07/19/2013 03/31/2014 Inactive Kenalog 40 mg/mL Sylvia p for Injection RxNorm: 9839739 1 Milliliter(s) Inj 06/30/2013 06/30/2013 In active prednisone 10 mg tab lets in a dose pack RxNorm: 954034 1 Tablet(s) PO as doc tor directed take steroid taper as directed on box 06/30/2013 07/09/2013 Inactive disp ense one PACK meclizine 25 mg tablet RxNorm: 491448 1 Tablet(s) PO Q6 PRN 1/2 - 1 pill every 6 hours as needed for vertigo 06/30/2013 08/10/2013 Inactive metoprolol tartrate 100 mg tablet RxNorm: 389640 1.5 Tablet(s) PO BID 06/30/2013 08/23/2013 In active metoprolol tartrate 100 mg tablet RxNorm: 224540 1 Tablet(s) PO BID 06/24/2013 06/29/2013 Inactive metoprolol tartrate 100 mg tablet RxNorm: 668903 1 Tablet(s) PO daily 06/17/2013 06/23/2013 In active metoprolol tartrate 100 mg tablet RxNorm: 162235 1 Tablet(s) PO daily 06/17/2013 06/16/2013 In active Toprol XL 100 mg tab let,extended release RxNorm: 752051 Tablet(s) PO TAKE ONE AND ONE- HALF TABLET BY MOUTH EVERY MORNING AND ONE TABLET IN THE EVENING 05/05/2013 06/22/2013 In active alprazolam 0.5 mg ta blet RxNorm: 806901 1 Tablet(s) PO as dir ected q hs and prn panic attacks 04/06/2013 07/28/2013 Inactive doxazosin 4 mg tablet RxNorm: 795867 Tablet(s) PO TAKE ONE TABLET BY MOUTH EV KANE DAY 04/01/2013 09/20/2013 Inactive Toprol XL 100 mg tab let,extended release RxNorm: 942365 Tablet(s) PO TAKE ONE AND ONE- HALF TABLET BY MOUTH EVERY MORNING AND ONE TABLET IN THE EVENING 12/25/2012 05/04/2013 In active Lasix 20 mg tablet RxNorm: 353350 1 Tablet(s) PO QDAY PRN Take 1 tab daily x 3 days then as needed 12/02/2012 04/10/2014 Inactive potassium chloride E R 20 mEq tablet,extended release(part/cryst) RxNorm: 445992 1 Tablet(s) PO PRN 12/02/2012 10/04/2013 Inactive prn swelling alprazolam 0.5 mg ta blet RxNorm: 270611 1 Tablet(s) PO as dir ected q hs and prn panic attacks 12/01/2012 04/05/2013 Inactive amlodipine 10 mg tablet RxNorm: 061523 1/2 Tablet(s) PO QAM 12/01/2012 07/18/2013 Inactive fluconazole 150 mg t ablet RxNorm: 516717 1 Tablet(s) PO daily 11/16/2012 11/20/2012 Inactive fluconazole 150 mg t ablet RxNorm: 028251 1 Tablet(s) PO daily 11/16/2012 11/15/2012 Inactive Nexium 40 mg capsule ,delayed release RxNorm: 003034 1 Capsule(s) PO daily 10/23/2012 11/16/2013 In active acyclovir 400 mg tablet RxNorm: 526679 1 Tablet(s) PO TID 10/19/2012 10/28/2012 Inactive chlordiazepoxide-cli dinium 5 mg-2.5 mg capsule RxNorm: 850594 1 Capsule(s) PO TID P RN 2012 12/22/2013 Inactive Voltaren 1 % Topical Gel RxNorm: 338720 4 Gram(s) TOP QID pt is to use 2 grams to each hand and 4 grams to knees. 08/18/2012 04/10/2014 Inactive doxazosin 4 mg tablet RxNorm: 954865 1 Tablet(s) PO QAM 08/18/2012 10/16/2012 Inactive atorvastatin 20 mg t ablet RxNorm: 882685 1 Tablet(s) PO HS 08/12/2012 08/11/2012 Inactive may have #90 x3 infection atorvastatin 20 mg t ablet RxNorm: 063680 1 Tablet(s) PO HS 08/12/2012 09/05/2013 Inactive may have #90 x3 infection doxazosin 4 mg tablet RxNorm: 970314 1 Tablet(s) PO daily 08/11/2012 08/17/2012 Inactive clonidine 0.1 mg/24 hr Weekly Transderm Patch RxNorm: 259705 1 Patch TD QW 08/04/2012 08/10/2012 In active Influenza Virus Vacc ine 0.5 mL RxNorm: IM 08/04/2012 08/04/2012 Inactive cyclobenzaprine 5 mg tablet RxNorm: 990567 1 Tablet(s) PO TID VT N one pill every 8 hours as needed for muscle spasms. 07/13/2012 11/09/2012 Inactive cyclobenzaprine 5 mg tablet RxNorm: 049947 1 Tablet(s) PO TID VT N one pill every 8 hours as needed for muscle spasms. 07/09/2012 07/12/2012 Inactive gabapentin 100 mg ca psule RxNorm: 581842 1 Capsule(s) PO TID 07/01/2012 12/01/2012 Inactive atorvastatin 20 mg t ablet RxNorm: 669918 1/2 Tablet(s) PO daily 07/01/2012 08/11/2012 Inactive may of day supply if cheaper Toprol XL 100 mg tab let,extended release RxNorm: 096152 Tablet(s) PO BID 11/2 in am and 1 in evening 07/01/2012 06/16/2013 Inactive 1 1/2 q am 1 in polly alprazolam 0.5 mg ta blet RxNorm: 142033 1 Tablet(s) PO as dir ected q hs and prn panic attacks 06/24/2012 11/30/2012 Inactive amlodipine 10 mg tablet RxNorm: 559017 1 Tablet(s) PO QAM 06/19/2012 11/30/2012 Inactive benazepril 20 mg tablet RxNorm: 716957 1 Tablet(s) PO daily 06/19/2012 06/13/2013 Inactive one daily at noon Toprol XL 100 mg tab let,extended release RxNorm: 839305 Tablet(s) PO BID 06/19/2012 06/30/2012 In active 1 1/2 q am 1 in [place] Toprol XL 100 mg tab let,extended release RxNorm: 825080 1 1/2 Tablet(s) PO BI D 04/27/2012 06/18/2012 In active 90 or 30 day supply, whatever ins will a llow Lotrel 10 mg-20 mg Cap RxNorm: 575143 1 Capsule(s) PO daily 04/20/2012 08/04/2012 Inactive estradiol 0.5 mg Tab RxNorm: 778952 1 Tablet(s) PO BID 04/20/2012 12/02/2012 Inactive Toprol XL 100 mg 24 hr Tab RxNorm: 576145 1 1/2 Tablet(s) PO BID 04/14/2012 04/26/2012 Inactive Toprol XL 100 mg 24 hr Tab RxNorm: 817103 Tablet(s) PO daily 03/31/2012 04/13/2012 Inactive new directions: one q am 1/2 every evepl ease put on file until she needs filled Lipitor 10 mg tablet RxNorm: 068584 1 Tablet(s) PO daily 03/31/2012 12/02/2012 Inactive march day supply if cheaper Toprol XL 100 mg 24 hr Tab RxNorm: 325091 1 Tablet(s) PO daily 03/11/2012 03/30/2012 Inactive Boniva 150 mg Tab RxNorm: 962544 1 Tablet(s) PO weekly 02/19/2012 12/02/2012 Inactive Detrol LA 4 mg capsu le,extended release RxNorm: 009167 1 Capsule(s) PO daily 02/19/2012 03/12/2016 In active doxycycline hyclate 100 mg Tab RxNorm: 577511 1 Tablet(s) PO BID 01/23/2012 02/25/2012 Inactive Rocephin 500 mg Solu tion for Injection RxNorm: 078773 1 Milliliter(s) Inj 01/23/2012 01/23/2012 In active Kenalog 40 mg/mL Sylvia p for Injection RxNorm: 7623201 1 Milliliter(s) Inj 01/23/2012 01/23/2012 In active cyclobenzaprine 5 mg tablet RxNorm: 863135 1 Tablet(s) PO TID VT N one pill every 8 hours as needed for muscle spasms. 12/20/2011 04/17/2012 Inactive clonidine 0.1 mg Tab RxNorm: 067882 1 Tablet(s) PO BID 12/20/2011 02/25/2012 Inactive Vitamin D3 5,000 uni t tablet RxNorm: 594408 1 Tablet(s) PO daily No Start Date Active Nexium 24HR 22.3 mg capsule,delayed release RxNorm: 350796 1 Capsule(s) PO daily as needed No Start Date Active Fish Oil 360 mg-1,20 0 mg capsule,delayed release RxNorm: 1 Capsule(s) PO daily No Start Date Active Lotrel 10 mg-20 mg Cap RxNorm: 140916 1 Capsule(s) PO daily No Start Date 02/24/2012 Inactive benazepril 20 mg tablet RxNorm: 638985 1 Tablet(s) PO No Start Date 06/18/2012 Inactive one daily at noon Vimovo 500 mg-20 mg multiphase, immed & delay rel Tab RxNorm: 993803 1 Tablet(s) PO BID No Start Date 12/01/2012 Inactive B12 1000 mcg RxNorm: 2 IM daily No Start Date 03/12/2016 Inactive Fish Oil 1,000 mg ca psule RxNorm: 1 Capsule(s) PO BID No Start Date 04/12/2014 Inactive Benicar 40 mg tablet RxNorm: 461522 1 Tablet(s) PO daily No Start Date 10/24/2013 Inactive Carafate 1 gram tablet RxNorm: 427561 Oral No Start Date 12/15/2013 Inactive Vitamin B-12 1,000 m cg tablet RxNorm: 282051 1 Tablet(s) PO daily No Start Date 03/12/2016 Inactive amlodipine 10 mg tablet RxNorm: 004899 1 Tablet(s) PO daily No Start Date 06/18/2012 Inactive Phenergan VC-Codeine 6.25 mg-5 mg-10 mg/5 mL Syrup RxNorm: 134640 5-10 Milliliter(s) PO Q6 PRN No Start Date 04/10/2014 Inactive Celebrex 200 mg capsule RxNorm: 500503 1 Capsule(s) PO daily No Start Date 10/08/2015 Inactive Percocet 5 mg-325 mg tablet RxNorm: 8048705 1-2 Tablet(s) PO Q6 PRN No Start Date 06/16/2014 Inactive Exforge 10 mg-320 mg Tab RxNorm: 699025 1 Tablet(s) PO daily sample No Start Date 05/20/2012 Inactive Lipitor 10 mg Tab RxNorm: 987328 1 Tablet(s) PO daily No Start Date 03/30/2012 Inactive tramadol 50 mg tablet RxNorm: 310101 1-2 Tablet(s) PO Q8 as needed No Start Date 04/24/2016 Inactive Lasix 20 mg tablet RxNorm: 703087 1 Tablet(s) PO QDAY PRN Take 1 tab daily x 3 days then as needed No Start Date 12/01/2012 Inactive potassium chloride E R 20 mEq tablet,extended release(part/cryst) RxNorm: 7922319 1 Tablet(s) PO QDAY PRN No Start Ochoa e 12/01/2012 Inactive Toprol XL 100 mg 24 hr Tab RxNorm: 864151 1 Tablet(s) PO daily No Start Date 03/10/2012 Inactive MIDRIN 325 mg-65 mg- 100 mg Cap RxNorm: 390894 1 Capsule(s) PO PRN No Start Date 05/20/2012 Inactive Nexium 40 mg capsule ,delayed release RxNorm: 753797 1 Capsule(s) PO daily No Start Date 10/22/2012 Inactive Detrol LA 4 mg 24 hr Cap RxNorm: 602415 Oral No S tart Date 02/18/2012 Inactive Boniva 150 mg Tab RxNorm: 535369 Oral No Start Date 02/18/2012 Inactive Flexeril 10 mg tablet RxNorm: 759700 1 Tablet(s) PO Q8 PRN No Start Date 03/31/2014 Inactive clidinium bromide Oral RxNorm: Oral No Start Date 12/01/2012 Inactive alprazolam 0.5 mg ta blet RxNorm: 721892 1 Tablet(s) PO as dir ected q hs and prn panic attacks No Start Date 06/23/2012 Inactive chlordiazepoxide Oral RxNorm: Oral No Start Date 12/01/2012 Inactive metoprolol tartrate 100 mg tablet RxNorm: 029515 Tablet(s) PO TAKE ONE AND ONE-HALF (1 & 1/2) TABLET BY MOUTH EVERY MORNING AND TAKE TWO TABLETS BY MOUTH EVERY EVENING No Start Date 08/03/2014 Inactive furosemide 20 mg tablet RxNorm: 431207 1 Tablet(s) PO daily No Start Date 01/29/2016 Inactive Calcium Oral RxNorm: Oral No Start Date 03/12 Inactive Nasonex 50 mcg/actua tion [place] RxNorm: 790446 1 [place] NASAL BID No Start Date 04/10/2014 Inactive Medication Administered Medication Codes Instruc tions Start Date Status Kenalog 40 mg/mL suspension for injection RxNorm: 5242540 Milliliter 04/24/2018 No longer Active Kenalog 40 mg/mL suspension for injection RxNorm: 1670683 Milliliter 06/23/2017 No longer Active Kenalog 40 mg/mL suspension for injection RxNorm: 8499093 2Milliliter 03/21/2017 N o longer Active Kenalog 40 mg/mL suspension for injection RxNorm: 9024044 1Milliliter 04/04/2016 N o longer Active Kenalog 40 mg/mL suspension for injection RxNorm: 6753483 Milliliter 06/12/2015 No longer Active Kenalog 40 mg/mL suspension for injection RxNorm: 9556811 Milliliter 05/15/2015 No longer Active Kenalog 40 mg/mL suspension for injection RxNorm: 4025572 Milliliter 02/02/2014 No longer Active Kenalog 40 mg/mL Susp for Injection RxNorm: 1149264 1Milliliter 06/30/2013 N o longer Active Influenza Virus Vaccine 0.5 mL RxNorm: 08/04/2012 No longer Active Rocephin 500 mg Solution for Injection RxNorm: 858412 1Milliliter 01/23/2012 N o longer Active Kenalog 40 mg/mL Susp for Injection RxNorm: 5973961 1Milliliter 01/23/2012 N o longer Active Immunizations [...] Reason For Visit Effective Dates Notes hypertension 10/14/2018 fatigue 09/22/2018 leg pain/sciatica 08/17/2018 [...] Ord2 RDW 14.8 % 06/05/2015 Comp Metabolic Wzd698 NA 138 mEq/L 06/05/2015 Comp Metabolic Upf562 K 4.3 mEq/L 06/05/2015 Comp Metabolic Puf716 CL 100 mEq/L 06/05/2015 Comp Metabolic Dou338 CO2 29.0 mEq/L 06/05/2015 Comp Metabolic Cbw258 AN ION GAP 13 06/05/2015 Comp Metabolic Vfc425 GL UCOSE 85 mg/dL 06/05/2015 Comp Metabolic Pgk062 Cr eat 0.7 mg/dL 06/05/2015 Comp Metabolic Ngd952 eG FR 94 ml/min/1.73m2 06/05 Comp Metabolic Nop932 BUN 16 mg/dL 06/05/2015 Comp Metabolic Lgz936 B/ C Ratio 24.2 Ratio 06/05/2015 Comp Metabolic Dqt039 CA LCIUM 9.5 mg/dL 06/05/2015 Comp Metabolic Hjq803 AL K PHOS 69 U/L 06/05/2015 Comp Metabolic Eju691 T(SGOT) 22 U/L 06/05/2015 Comp Metabolic Mgg810 AL T(SGPT) 26 U/L 06/05/2015 Comp Metabolic Fpf277 BI LI T 0.5 mg/dL 06/05/2015 Comp Metabolic Sga590 AL BUMIN 4.2 g/dL 06/05/2015 Comp Metabolic Qjw362 TP RO 6.1 g/dL 06/05/2015 Comp Metabolic Man489 GL OB 1.9 g/dL 06/05/2015 Comp Metabolic Ihk278 A/ G Ratio 2.2 Ratio 06/05/2015 Comp Metabolic Eyi625 Os mo 276 mOsmo 06/05/2015 Tsh Ord6 hTSH II 1.99 uIU/mL 06/05/2015 Lipid Ord30 CHOL 171 mg/dL 06/05/2015 Lipid Ord30 HDL 55.0 mg/dl 06/05/2015 Lipid Ord30 TRIG 178 mg/dL 06/05/2015 Lipid Ord30 LDL 80 mg/dL 06/05/2015 Lipid Ord30 C/HDL 3.1 Ratio 06/05/2015 %Hba1C Uzq388 % HbA1c 37732-3 5.7 % 06/05/2015 %Hba1C Njp342 Gluc Ave 117 mg/dL 06/05/2015 A1C HPLC 5711216 A1C HPLC 50570-4 5.6 % 07/15/2014 GFR CALC 5360514 GFR AA >60 ML/MIN 07/15/2014 GFR CALC 9657745 GFR NON -AA >60 ML/MIN 07/15/2014 CHEM 14 0179020 AST 21 U/L 07/15/2014 CHEM 14 6887331 ALT 23 IU/L 07/15/2014 CHEM 14 1574805 BUN 14 MG/DL 07/15/2014 CHEM 14 6528357 ALBUMIN 4.2 GM/DL 07/15/2014 CHEM 14 3942100 CHLORIDE 104 MMOL/L 07/15/2014 CHEM 14 3276822 BILI TOT 0.4 MG/DL 07/15/2014 CHEM 14 1437291 ALK PHOS 88 U/L 07/15/2014 CHEM 14 5586025 SODIUM 140 MMOL/L 07/15/2014 CHEM 14 7542535 CREATINI NE 0.63 MG/DL 07/15/2014 CHEM 14 1395057 CALCIUM 9.4 MG/DL 07/15/2014 CHEM 14 7523844 POTASSIUM 4.0 MMOL/L 07/15/2014 CHEM 14 1300737 PROT TOT 6.4 GM/DL 07/15/2014 CHEM 14 8079253 GLUCOSE 90 MG/DL 07/15/2014 CHEM 14 8980767 BICARB 30 MMOL/L 07/15/2014 CHEM 14 1512758 ANION GAP 6 MEQ/L 07/15/2014 A1C HPLC 0642335 A1C HPLC 31906-0 6.0 % 04/13/2014 TSH 8095764 TSH 1.875 uIU/ML 04/12/2014 CHEM 14 7532466 AST 17 U/L 04/12/2014 CHEM 14 8786049 ALT 20 IU/L 04/12/2014 CHEM 14 4992180 BUN 14 MG/DL 04/12/2014 CHEM 14 4929543 ALBUMIN 4.2 GM/DL 04/12/2014 CHEM 14 6060448 CHLORIDE 104 MMOL/L 04/12/2014 CHEM 14 1657378 BILI TOT 0.3 MG/DL 04/12/2014 CHEM 14 9958257 ALK PHOS 80 U/L 04/12/2014 CHEM 14 1677109 SODIUM 141 MMOL/L 04/12/2014 CHEM 14 4795815 CREATINI NE 0.62 MG/DL 04/12/2014 CHEM 14 4537658 CALCIUM 9.4 MG/DL 04/12/2014 CHEM 14 8498848 POTASSIUM 3.5 MMOL/L 04/12/2014 CHEM 14 3187452 PROT TOT 6.5 GM/DL 04/12/2014 CHEM 14 1281620 GLUCOSE 89 MG/DL 04/12/2014 CHEM 14 3809962 BICARB 29 MMOL/L 04/12/2014 CHEM 14 4507386 ANION GAP 8 MEQ/L 04/12/2014 LIPID GRP HDL TE ST 59 MG/DL 04/12/2014 LIPID GRP TRIG 177 MG/DL 04/12/2014 LIPID GRP TEST L DL 106 MG/DL 04/12/2014 LIPID GRP CHOL 200 MG/DL 04/12/2014 LIPID GRP RCHOL/ HDL 3.39 RATIO 04/12/2014 CBC 1516960 WBC 4.6 10e9/L 04/12/2014 CBC 2872040 RBC 4.52 10e12/L 04/12/2014 CBC 3588406 HGB 13.1 g/dL 04/12/2014 CBC 2730595 HCT DET 39.2 % 04/12/2014 CBC 6593259 MCV 86.7 fL 04/12/2014 CBC 2866405 MCH 29.0 pg 04/12/2014 CBC 5504343 MCHC 33.4 g/dL 04/12/2014 CBC 5180081 PLT 233 10e9/L 04/12/2014 CBC 3136600 MPV 9.8 fL 04/12/2014 CBC 4325898 AN % 59.5 % 04/12/2014 CBC 2175463 LY % 28.6 % 04/12/2014 CBC 1841072 MON % 10.0 % 04/12/2014 CBC 6286073 EOS % 1.5 % 04/12/2014 CBC 0587205 BASO % 0.4 % 04/12/2014 CBC 3747132 RDW 13.7 % 04/12/2014 CBC 4406101 ABS AN 2.74 10e9/L 04/12/2014 CBC 9772181 ABS LYMPH 1.32 10e9/L 04/12/2014 CBC 5511737 ABS MONO 0.46 10e9/L 04/12/2014 CBC 5162174 ABS EOS 0.07 10e9/L 04/12/2014 CBC 8329002 ABS BASO 0.02 10e9/L 04/12/2014 CBC 5713127 RDW-SD 42.6 fL 04/12/2014 GFR CALC 3075835 GFR AA >60 ML/MIN 04/12/2014 GFR CALC 5586299 GFR NON -AA >60 ML/MIN 04/12/2014 LIPID GRP HDL TE ST 57 MG/DL 08/24/2013 LIPID GRP TRIG 183 MG/DL 08/24/2013 LIPID GRP 1267159 TEST L DL 64 MG/DL 08/24/2013 LIPID GRP CHOL 158 MG/DL 08/24/2013 LIPID GRP RCHOL/ HDL 2.77 RATIO 08/24/2013 GFR CALC 9850157 GFR AA >60 ML/MIN 08/24/2013 GFR CALC 3437207 GFR NON -AA >60 ML/MIN 08/24/2013 CHEM 14 4312045 AST 13 U/L 08/24/2013 CHEM 14 1879588 ALT 15 IU/L 08/24/2013 CHEM 14 7524442 BUN 14 MG/DL 08/24/2013 CHEM 14 3078557 ALBUMIN 4.3 GM/DL 08/24/2013 CHEM 14 20280507 CHLORIDE 106 MMOL/L 08/24/2013 CHEM 14 6521373 BILI TOT 0.3 MG/DL 08/24/2013 CHEM 14 9914592 ALK PHOS 75 U/L 08/24/2013 CHEM 14 5000367 SODIUM 141 MMOL/L 08/24/2013 CHEM 14 3429532 CREATINI NE 0.56 MG/DL 08/24/2013 CHEM 14 1751901 CALCIUM 9.1 MG/DL 08/24/2013 CHEM 14 5943452 POTASSIUM 4.2 MMOL/L 08/24/2013 CHEM 14 2113065 PROT TOT 6.0 GM/DL 08/24/2013 CHEM 14 0667588 GLUCOSE 83 MG/DL 08/24/2013 CHEM 14 8907887 BICARB 28 MMOL/L 08/24/2013 CHEM 14 2906624 ANION GAP 7 MEQ/L 08/24/2013 CBC 4770247 WBC 4.7 10e9/L 08/24/2013 CBC 6111139 RBC 4.33 10e12/L 08/24/2013 CBC 0040967 HGB 12.5 g/dL 08/24/2013 CBC 9775712 HCT DET 38.2 % 08/24/2013 CBC 1041542 MCV 88.2 fL 08/24/2013 CBC 2755443 MCH 28.9 pg 08/24/2013 CBC 3187827 MCHC 32.7 g/dL 08/24/2013 CBC 0142565 PLT 218 10e9/L 08/24/2013 CBC 4694357 MPV 10.4 fL 08/24/2013 CBC 0305739 AN % 61.9 % 08/24/2013 CBC 0252032 LY % 24.8 % 08/24/2013 CBC 0111899 MON % 10.3 % 08/24/2013 CBC 2481355 EOS % 2.1 % 08/24/2013 CBC 9616419 BASO % 0.9 % 08/24/2013 CBC 6855854 RDW 14.6 % 08/24/2013 CBC 4550966 ABS AN 2.91 10e9/L 08/24/2013 CBC 0689462 ABS LYMPH 1.17 10e9/L 08/24/2013 CBC 3803221 ABS MONO 0.48 10e9/L 08/24/2013 CBC 9690140 ABS EOS 0.10 10e9/L 08/24/2013 CBC 4264685 ABS BASO 0.04 10e9/L 08/24/2013 CBC 5334611 RDW-SD 46.7 fL 08/24/2013 TSH 7324628 TSH 1.208 uIU/ML 08/24/2013 Review of Systems System Result Effective Dates Constitutional recent illness 10/14/2018 Constitutional fatigue 1 [...] nourished 03/10/2012 None Full Exam - General 1995 [...] FLU VACC PRSV FREE I NC ANTIG Assigned to/Jen Cota, Formatting Model/CDA Sections CPT-4: 71476Betpjvf 07/28/2018 THER/PROPH/DIAG INJ SC/IM CPT-4: 81314 04/24/2018 TRIAMCINOLONE ACET I [place] NOS CPT-4: J3301 04/24/2018 PPPS, SUBSEQ VISIT CPT- 4: G0439 02/03/2018 TRIAMCINOLONE ACET I [place] NOS CPT-4: J3301 06/23/2017 TRIAMCINOLONE ACET I [place] NOS CPT-4: J3301 03/21/2017 PPPS, SUBSEQ VISIT CPT- 4: G0439 01/22/2017 ADMIN PNEUMOCOCCAL V ACCINE SNOMED CT: 95828150 CPT-4: G0009 09/16/2016 Pneumococcal Polysac charide Vaccine, 23-Valent, Ad CPT-4: 92112 09/16/2016 THER/PROPH/DIAG INJ SC/IM CPT-4: 62598 04/04/2016 TRIAMCINOLONE ACET I [place] NOS CPT-4: J3301 04/04/2016 ADMIN INFLUENZA VIRU S VAC CPT-4: G0008 07/28/2015 FLU VACC 4 XIMENA 3 YRS PLUS IM Assigned to/Jen Cota, Formatting Model/CDA Sections SNOMED CT: 16774744 CPT-4: 44702Padlicg 07/28/2015 TRIAMCINOLONE ACET I [place] NOS CPT-4: J3301 06/12/2015 TRIAMCINOLONE ACET I [place] NOS CPT-4: J3301 05/15/2015 ADMIN INFLUENZA VIRU S VAC CPT-4: G0008 07/19/2014 FLU VAC NO PRSV 4 VA L 3 YRS+ Assigned to/Jen Cota CPT-4: 14079Attoior 07/19/2014 TRIAMCINOLONE ACET I [place] NOS CPT-4: J3301 02/02/2014 ROUTINE VENIPUNCTURE CPT-4: 95377 08/24/2013 ADMIN INFLUENZA VIRU S VAC CPT-4: [...] CPT-4: J3301 01/23/2012 THER/PROPH/DIAG INJ SC/IM CPT-4: 92805 01/23/2012 REMOVE IMPACTED EAR WAX UNI CPT-4: 44294 01/02/2012 ROUTINE VENIPUNCTURE CPT-4: 56967 12/20/2011 Vital Signs Date Vital 10/14/2018 Blood Pressure 1: 150/72 Code: 8480-6 Heart Rate 1: 58 bpm Height: 5' SpO2: 98% Weight: 09/22/2018 Blood Pressure 1: 140/80 Code: 8480-6 BMI: 32.7 Code: 45529-5 Heart Rate 1: 55 bpm Height: 5' SpO2: 98% Weight: 170 lbs 08/17/2018 Blood Pressure 1: 140/76 Code: 8480-6 BMI: 33.0 Code: 96445-8 Heart Rate 1: 60 bpm Height: 5' SpO2: 99% Weight: 172 lbs 06/08/2018 Blood Pressure 1: 136/80 Code: 8480-6 BMI: 33.8 Code: 18278-4 Heart Rate 1: 65 bpm Height: 5' SpO2: 98% Weight: 176 lbs 05/04/2018 Blood Pressure 1: 134/80 Code: 8480-6 BMI: 35.9 Code: 34010-6 Heart Rate 1: 72 bpm Height: 5' SpO2: 94% Weight: 187 lbs 02/04/2018 Blood Pressure 1: 144/76 Code: 8480-6 BMI: 35.0 Code: 86935-0 Heart Rate 1: 64 bpm Height: 5' SpO2: 98% Weight: 182 lbs 02/03/2018 Blood Pressure 1: 136/62 Code: 8480-6 BMI: 35.0 Code: 27949-2 Heart Rate 1: 57 bpm Height: 5' SpO2: 98% Waist Measure (cm): 94 cm Weight: 182 lbs 09/17/2017 Blood Pressure 1: 150/82 Code: 8480-6 BMI: 33.6 Code: 85581-3 Heart Rate 1: 58 bpm Height: 5' SpO2: 98% Weight: 175 lbs 06/23/2017 Blood Pressure 1: 124/66 Code: 8480-6 Heart Rate 1: 65 bpm Height: 5' SpO2: 97% Weight: 05/13/2017 Blood Pressure 1: 128/80 Code: 8480-6 BMI: 32.8 Code: 15231-9 Heart Rate 1: 76 bpm Height: 5' SpO2: 95% Weight: 171 lbs 03/21/2017 Blood Pressure 1: 152/88 Code: 8480-6 Heart Rate 1: 70 bpm Height: SpO2: 98% Weight: 03/19/2017 Blood Pressure 1: 132/64 Code: 8480-6 BMI: 33.0 Code: 46394-5 Heart Rate 1: 64 bpm Height: 5' SpO2: 96% Weight: 172 lbs 01/22/2017 Blood Pressure 1: 120/68 Code: 8480-6 BMI: 33.4 Code: 89178-2 Heart Rate 1: 68 bpm Height: 5' SpO2: 96% Weight: 174 lbs 01/14/2017 Blood Pressure 1: 138/80 Code: 8480-6 BMI: 33.4 Code: 72932-9 Heart Rate 1: 69 bpm Height: 5' SpO2: 98% Weight: 174 lbs 09/23/2016 Blood Pressure 1: 138/70 Code: 8480-6 BMI: 33.6 Code: 82393-1 Heart Rate 1: 68 bpm Height: 5' SpO2: 98% Temperature: 36.4 (C ) / 97.5 (F) Weight: 175 lbs 09/16/2016 Blood Pressure 1: 124/74 Code: 8480-6 BMI: 33.6 Code: 75164-0 Heart Rate 1: 64 bpm Height: 5' SpO2: 97% Weight: 175 lbs 06/25/2016 Weigh t: 174 lbs 06/17/2016 Blood Pressure 1: 128/80 Code: 8480-6 BMI: 34.0 Code: 03717-8 Heart Rate 1: 76 bpm Height: 5' SpO2: 95% Weight: 177 lbs 04/03/2016 Blood Pressure 1: 138/72 Code: 8480-6 BMI: 34.2 Code: 28662-1 Heart Rate 1: 63 bpm Height: 5' SpO2: 96% Weight: 178 lbs 03/13/2016 Blood Pressure 1: 128/72 Code: 8480-6 BMI: 35.3 Code: 32248-0 Heart Rate 1: 71 bpm Height: 5' SpO2: 97% Weight: 184 lbs 01/30/2016 Blood Pressure 1: 134/72 Code: 8480-6 BMI: 35.2 Code: 37201-8 Heart Rate 1: 71 bpm Height: 5' SpO2: 96% Weight: 183 lbs 12/21/2015 Blood Pressure 1: 148/90 Code: 8480-6 BMI: 34.6 Code: 59294-3 Heart Rate 1: 89 bpm Height: 5' SpO2: 96% Weight: 180 lbs 10/09/2015 Blood Pressure 1: 124/76 Code: 8480-6 BMI: 34.6 Code: 12323-4 Heart Rate 1: 88 bpm Height: 5' SpO2: 96% Weight: 180 lbs 06/12/2015 Blood Pressure 1: 148/74 Code: 8480-6 BMI: 33.4 Code: 04600-9 Heart Rate 1: 70 bpm Height: 5' SpO2: 96% Weight: 174 lbs 06/05/2015 Blood Pressure 1: 142/82 Code: 8480-6 BMI: 33.2 Code: 67570-0 Heart Rate 1: 72 bpm Height: 5' Weight: 173 lbs 05/15/2015 Blood Pressure 1: 118/80 Code: 8480-6 BMI: 33.6 Code: 07769-6 Heart Rate 1: 82 bpm Height: 5' Weight: 175 lbs 02/06/2015 Blood Pressure 1: 122/76 Code: 8480-6 BMI: 34.6 Code: 40905-2 Heart Rate 1: 58 bpm Height: 5' Weight: 180 lbs 01/10/2015 Blood Pressure 1: 158/90 Code: 8480-6 Blood Pressure 2: 152/90 Code: 8480-6 BMI: 34.6 Code: 38693-8 Heart Rate 1: 68 bpm Height: 5' Weight: 180 lbs 07/19/2014 Blood Pressure 1: 142/78 Code: 8480-6 BMI: 33.6 Code: 11897-3 Heart Rate 1: 56 bpm Height: 5' Weight: 175 lbs 06/17/2014 Blood Pressure 1: 128/86 Code: 8480-6 Heart Rate 1: 66 bpm SpO2: 98% Weight: 172 lbs 04/19/2014 Blood Pressure 1: 152/82 Code: 8480-6 BMI: 32.5 Code: 69569-3 Heart Rate 1: 60 bpm Height: 5' Weight: 169 lbs 04/11/2014 Blood Pressure 1: 120/80 Code: 8480-6 BMI: 33.4 Code: 93800-2 Heart Rate 1: 64 bpm Height: 5' Weight: 174 lbs 03/10/2014 Blood Pressure 1: 136/64 Code: 8480-6 BMI: 32.7 Code: 32393-2 Heart Rate 1: 76 bpm Height: 5' Weight: 170 lbs 02/02/2014 Blood Pressure 1: 160/76 Code: 8480-6 BMI: 32.7 Code: 95014-8 Heart Rate 1: 64 bpm Height: 5' Weight: 170 lbs 10/25/2013 Blood Pressure 1: 164/82 Code: 8480-6 BMI: 31.9 Code: 68578-7 Heart Rate 1: 60 bpm Height: 5' Weight: 166 lbs 08/24/2013 Blood Pressure 1: 138/88 Code: 8480-6 Heart Rate 1: 80 bpm Weight: 07/26/2013 Blood Pressure 1: 154/70 Code: 8480-6 Heart Rate 1: 72 bpm Weight: 162 lbs 06/30/2013 Blood Pressure 1: 182/86 Code: 8480-6 Heart Rate 1: 80 bpm Weight: 06/24/2013 Blood Pressure 1: 148/68 Code: 8480-6 BMI: 31.3 Code: 15570-1 Heart Rate 1: 72 bpm Height: 5' [...] 1: 142/88 Code: 8480-6 BMI: 30.6 Code: 24445-5 Heart Rate 1: 64 bpm Height: 5' [...] 1: 180/96 Code: 8480-6 BMI: 30.5 Code: 53110-9 Heart Rate 1: 76 bpm Height: 5' Respiratory Rate: 16 bpm Weight: 159 lbs 02/19/2012 Blood Pressure 1: 150/70 Code: 8480-6 Blood Pressure 2: 160/78 Code: 8480-6 Heart Rate 1: 76 bpm Respiratory Rate: 16 bpm Weight: 158 lbs 01/23/2012 Blood Pressure 1: 140/84 Code: 8480-6 BMI: 30.3 Code: 13174-8 Heart Rate 1: 68 bpm Height: 5' Respiratory Rate: 16 bpm SpO2: 98% Temperature: 37.0 (C ) / 98.6 (F) Weight: 158 lbs 01/02/2012 Blood Pressure 1: 142/92 Code: 8480-6 BMI: 30.7 Code: 52800-0 Heart Rate 1: 72 bpm Height: 5' Respiratory Rate: 16 bpm Weight: 160 lbs 12/20/2011 Blood Pressure 1: 170/84 Code: 8480-6 BMI: 30.0 Code: 41611-0 Heart Rate 1: 70 bpm Height: 5' Respiratory Rate: 16 bpm Weight: 156 lbs Functional Status No Functional Status data History of Present Illness Symptom Name Status Resu lt Effective Date Notes Quality bradycardia 10/14/2018 None Quality acute 10/14/2018 [...] 06/12/2015 None rash Location-Head/Neck on the right druze 06/12/2015 None rash Location-Head/Neck on the right [...] Factors position change 06/30/2013 None hypertension Quality [facility] 06/30/2013 None hypertension Onset and Resolution ongoing 06/30/2013 None hypertension Blood Pressure Values pt checking blood pressure - see scanned document 06/30/2013 149-178/82 hypertension Quality [facility] 06/24/2013 patient states that her T [...] Onset and Resolution ongoing 03/10/[address] IpsDr Lucinda gunn on but not much improvement hypertension Quality [...] Encounters Encounter Performer Loca tion Codes Date [id number]) [phone] EST. P ATIENT, LEVEL IV Diagnosis: Essential (primary) hypertension[ICD10: I10] Diagnosis: Mixed hyperlipidemia[ICD10: E78.2] Zoya Varela MD, [facility] CPT- 4: 85301 10/14/2018 [id number] [id number] EST. P ATIENT, LEVEL III Diagnosis: Essential (primary) hypertension[ICD10: I10] Diagnosis: Other specified cardiac arrhythmias[ICD10: I49.8] Zoya Varela MD, [facility] CPT-4: 81673 09/22/[id number]) [phone] EST. P ATIENT, LEVEL IV Diagnosis: Essential (primary) hypertension[ICD10: I10] Diagnosis: Allergic rhinitis due to pollen[ICD10: J30.1] Diagnosis: Sciatica, right side[ICD10: M54.31] Zoya Varela MD, [facility] CPT- 4: 60834 08/17/2018 ([id number]) [id number] EST. 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 P ATIENT, LEVEL III Diagnosis: Acute upper respiratory infection, unspecified[ICD10: J06.9] Kacy Varela MD, [facility] CPT-4: 42281 05/04/2018 ([id number]) 43132 EST. P ATIENT, LEVEL IV Diagnosis: Essential (primary) hypertension[ICD10: I10] Diagnosis: Type 2 diabetes mellitus without complications[ICD10: E11.9] Diagnosis: Mixed hyperlipidemia[ICD10: E78.2] Diagnosis: Localized edema[ICD10: R60.0] Zoya Varela MD, [facility] CPT-4: 75489 02/04/2018 ([id number]) 10584 EST. P ATIENT, LEVEL IV Diagnosis: Essential (primary) hypertension[ICD10: I10] Zoya Varela MD, [facility] CPT-4: 17934 09/17/2017 ([id number]) 69645 EST. P ATIENT, LEVEL III Diagnosis: Allergic contact dermatitis due to plants, except food[ICD10: L23.7] Kacy Varela MD, [facility] CPT-4: 34886 06/23/2017 ([id number]) 93938 EST. P ATIENT, LEVEL IV Diagnosis: Essential (primary) hypertension[ICD10: I10] Diagnosis: Mixed hyperlipidemia[ICD10: E78.2] Zoya Varela MD, [facility] CPT- 4: 76446 05/13/2017 ([id number]) 53788 EST. P ATIENT, LEVEL III Diagnosis: Allergic contact dermatitis due to plants, except food[ICD10: L23.7] Kacy Varela MD, [facility] CPT-4: 98465 03/21/2017 07498 EST. PATIENT, LEVEL III Diagnosis: Bitten or stung by nonvenomous insect and other nonvenomous arthropods, initial encounter[ICD10: W57.XXXA] Diagnosis: Cellulitis of left lower limb[ICD10: L03.116] Laura Varela MD, [facility] CPT-4: 90890 03/19/2017 ([id number]) 46343 EST. P ATIENT, LEVEL IV Diagnosis: Type 2 diabetes mellitus without complications[ICD10: E11.9] Diagnosis: Essential (primary) hypertension[ICD10: I10] Diagnosis: Other specified epidermal thickening[ICD10: L85.8] Zoya Varela MD, [facility] CPT-4: 58443 01/14/2017 48729 EST. PATIENT, LEVEL III Diagnosis: Glossodynia[ICD10: K14.6] Kacy Varela MD, [facility] CPT- 4: 38733 09/23/2016 ([id number]) 82483 EST. P ATIENT, LEVEL IV Diagnosis: Encounter for screening mammogram for malignant neoplasm of breast[ICD10: Z12.31] Diagnosis: Encounter for immunization[ICD10: Z23] Zoya Varela MD, [facility] CPT-4: 26869 09/16/2016 ([id number]) 40203 EST. P ATIENT, LEVEL III Diagnosis: Diseases of lips[ICD10: K13.0] Diagnosis: Allergic rhinitis due to pollen[ICD10: J30.1] Kacy Varela MD, [facility] CPT-4: 34827 06/25/2016 ([id number]) 58488 EST. P ATIENT, LEVEL III Diagnosis: Essential (primary) hypertension[ICD10: I10] Kacy Varela MD, [facility] CPT-4: 17791 06/17/2016 07747 EST. PATIENT, LEVEL IV Diagnosis: Other acute sinusitis[ICD10: J01.80] Diagnosis: Acute laryngopharyngitis[ICD10: J06.0] Diagnosis: Other allergic rhinitis[ICD10: J30.89] Laura Varela MD, [facility] [facility] CPT-[facility] 49766 04/03/2016 ([id number]) 76004 EST. P ATIENT, LEVEL IV Diagnosis: Essential (primary) hypertension[ICD10: I10] Diagnosis: Localized edema[ICD10: R60.0] Diagnosis: Polyneuropathy, unspecified[ICD10: G62.9] Zoya Varela MD, [facility] CPT-4: 75041 03/13/2016 ([id number]) 89653 EST. P ATIENT, LEVEL IV Diagnosis: Essential (primary) hypertension[ICD10: I10] Diagnosis: Localized edema[ICD10: R60.0] Diagnosis: Type 2 diabetes mellitus without complications[ICD10: E11.9] Zoya Varela MD, [facility] CPT-4: 54480 01/30/2016 11143 EST. PATIENT, LEVEL IV Diagnosis: Localized edema[ICD10: R60.0] Laura Varela MD, [facility] CPT-4: 56445 12/21/2015 ([id number]) 53813 EST. P ATIENT, LEVEL III Diagnosis: Essential (primary) hypertension[ICD10: I10] Diagnosis: Allergic rhinitis due to pollen[ICD10: J30.1] Diagnosis: Cervicalgia[ICD10: M54.2] Kacy Varela MD, [facility] CPT- 4: 96108 10/09/2015 64915 EST. PATIENT, LEVEL II Diagnosis: Contact dermatitis[ICD9: 692.9] Kacy Varela MD, [facility] CPT- 4: 11843 06/12/2015 ([id number]) 83022 EST. P ATIENT, LEVEL III Diagnosis: ESSENTIAL HYPERTENSION[ICD9: 401.9] Diagnosis: DIABETES TYPE II[ICD9: 250.00] Diagnosis: Anxiety[ICD9: 300.00] Kacy Varela MD, [facility] CPT-4: 35637 06/05/2015 ([id number]) 13726 EST. P ATIENT, LEVEL IV Diagnosis: Anxiety[ICD9: 300.00] Diagnosis: ALLERGIC RHINITIS[ICD9: 477.9] Diagnosis: ESOPHAGEAL REFLUX[ICD9: 530.81] Kacy Varela MD, [facility] CPT- 4: 62992 05/15/2015 ([id number]) 95365 EST. P ATIENT, LEVEL III Diagnosis: ESSENTIAL HYPERTENSION[ICD9: 401.9] Zoya Varela MD, [facility] CPT- 4: 51178 02/06/2015 ([id number]) 19340 EST. P ATIENT, LEVEL IV Diagnosis: ESSENTIAL HYPERTENSION[ICD9: 401.9] Diagnosis: EDEMA[ICD9: 782.3] Diagnosis: DIABETES TYPE II[ICD9: 250.00] Zoya Varela MD, [facility] CPT-4: 16392 01/10/2015 ([id number]) 09566 EST. P ATIENT, LEVEL IV Diagnosis: ESSENTIAL HYPERTENSION[ICD9: 401.9] Diagnosis: DIABETES TYPE II[ICD9: 250.00] Zoya Varela MD, [facility] CPT-4: 82769 07/19/2014 ([id number]) 70049 EST. P ATIENT, LEVEL III Diagnosis: Left ankle pain[ICD9: 719.47] Kacy Varela MD, [facility] CPT- 4: 88352 06/17/2014 ([id number]) 87749 EST. P ATIENT, LEVEL III Diagnosis: ESSENTIAL HYPERTENSION[ICD9: 401.9] Diagnosis: Elevated blood sugar[ICD9: 790.29] Zoya Varela MD, [facility] CPT- 4: 83653 04/19/2014 ([id number]) 48266 EST. P ATIENT, LEVEL IV Diagnosis: ESSENTIAL HYPERTENSION[SNOMED: 35819225] Diagnosis: ESOPHAGEAL REFLUX[ICD9: 530.81] Zoya Varela MD, [facility] CPT-4: 61731 04/11/2014 ([id number]) 20676 EST. P ATIENT, LEVEL IV Diagnosis: ALLERGIC RHINITIS[ICD9: 477.9] Diagnosis: Anxiety[ICD9: 300.00] Diagnosis: Dyspnea[ICD9: 786.09] Diagnosis: ESOPHAGEAL REFLUX[ICD9: 530.81] Kacy Vareal MD, [facility] CPT- 4: 12671 03/10/2014 ([id number]) 60384 EST. P ATIENT, LEVEL III Diagnosis: ALLERGIC RHINITIS[ICD9: 477.9] Diagnosis: ESSENTIAL HYPERTENSION[SNOMED: 15146541] Kacy Varela MD, [facility] CPT-4: 27531 02/02/2014 ([id number]) 66266 EST. P ATIENT, LEVEL III Diagnosis: ESSENTIAL HYPERTENSION[SNOMED: 17521580] Diagnosis: Skin irritation[ICD9: 709.9] Zoya Varela MD, [facility] CPT-4: 27136 10/25/2013 ([id number]) 86582 EST. P ATIENT, LEVEL III Diagnosis: HYPERLIPIDEMIA[ICD9: 272.4] Diagnosis: ESSENTIAL HYPERTENSION[SNOMED: 16021227] Diagnosis: EDEMA[ICD9: 782.3] Diagnosis: Encounter for long-term (current) use of other medications[ICD9: V58.69] Zoya Varela MD, [facility] CPT-4: 65613 08/24/2013 ([id number]) 70664 EST. P ATIENT, LEVEL III Diagnosis: ESSENTIAL HYPERTENSION[SNOMED: 51963550] Zoya Varela MD, C CPT-4: 16287 07/26/2013 ([id number]) 27902 EST. P ATIENT, LEVEL III Diagnosis: ESSENTIAL HYPERTENSION[SNOMED: 86327641] Zoya Varela MD, C CPT-4: 00484 06/30/2013 ([id number]) 20724 EST. P ATIENT, LEVEL III Diagnosis: ESSENTIAL HYPERTENSION[SNOMED: 07003242] Zoya Varela MD, C CPT-4: 02862 06/24/2013 ([id number]) 42327 EST. P ATIENT, LEVEL IV Diagnosis: ESSENTIAL HYPERTENSION[SNOMED: 55471104] Diagnosis: Leg pain[ICD9: 729.5] Diagnosis: Leg swelling[ICD9: 729.81] Zoya Varela MD, [facility] CPT-4: 81347 12/01/2012 ([id number]) 26295 EST. P ATIENT, LEVEL III Diagnosis: Shingles[ICD9: 053.9] Zoya Varela MD, [facility] CPT-4: 25299 10/19/2012 ([id number]) 59269 EST. P ATIENT, LEVEL IV Diagnosis: EDEMA[ICD9: 782.3] Diagnosis: ESSENTIAL HYPERTENSION[SNOMED: 79050659] Zoya Varela MD, C CPT-4: 80292 10/07/2012 ([id number]) 09295 EST. P ATIENT, LEVEL IV Diagnosis: ESSENTIAL HYPERTENSION[SNOMED: 15648177] Diagnosis: EDEMA[ICD9: 782.3] Diagnosis: Irritable bowel disease[ICD9: 564.1] Zoya Varela MD, [facility] CPT-4: 17281 2012 ([id number]) 73784 EST. P ATIENT, LEVEL III Diagnosis: ESSENTIAL HYPERTENSION[SNOMED: 89702019] Zoya Varela MD, C CPT-4: 12578 08/18/2012 ([id number]) 40804 EST. P ATIENT, LEVEL III Diagnosis: ESSENTIAL HYPERTENSION[SNOMED: 84507242] Zoya Varela MD, C CPT-4: 68476 08/04/2012 ([id number]) 50645 EST. P ATIENT, LEVEL IV Diagnosis: ESSENTIAL HYPERTENSION[SNOMED: 81477606] Diagnosis: Lumbago[ICD9: 724.2] Diagnosis: HYPERLIPIDEMIA[ICD9: 272.4] Zoya Varela MD, [facility] CPT-4: 05812 07/01/2012 ([id number]) 04690 EST. P ATIENT, LEVEL III Diagnosis: ESSENTIAL HYPERTENSION[SNOMED: 87589891] Zoya Varela MD, [facility] CPT-4: 99864 05/20/2012 ([id number]) 13517 EST. P ATIENT, LEVEL IV Diagnosis: ESSENTIAL HYPERTENSION[SNOMED: 12078592] Diagnosis: Hot flash, menopausal[ICD9: 627.2] Zoya Varela MD, [facility] CPT- 4: 42308 04/20/2012 22184 EST. PATIENT, LEVEL IV Diagnosis: SPASM OF MUSCLE[ICD9: 728.85] Diagnosis: Back pain[ICD9: 724.5] Diagnosis: ESSENTIAL HYPERTENSION[SNOMED: 13752622] Zoya Varela MD, C CPT-4: 38416 03/10/2012 ([id number]) 34990 EST. 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 P ATIENT, LEVEL III Diagnosis: ESSENTIAL HYPERTENSION[SNOMED: 29450333] Zoya Varela MD, [facility] CPT-4: 10693 02/19/2012 26205 EST. PATIENT, LEVEL IV Diagnosis: ESSENTIAL HYPERTENSION[SNOMED: 18889503] Diagnosis: Cough[ICD9: 786.2] Kacy Josué Varela MD, [facility] CPT-4: 45923 01/23/2012 ([id number]) 22398 EST. P ATIENT, LEVEL IV Diagnosis: HYPERLIPIDEMIA[ICD9: 272.4] Diagnosis: ESSENTIAL HYPERTENSION[SNOMED: 87665206] Zoya Varela MD, [facility] CPT-4: 88505 01/02/2012 OFFICE VISIT, NEW - LEVEL 4 Diagnosis: ESSENTIAL HYPERTENSION[SNOMED: 51605529] Diagnosis: HYPERLIPIDEMIA[ICD9: 272.4] Diagnosis: IMPACTED CERUMEN[ICD9: 380.4] Diagnosis: Muscle spasm[ICD9: 728.85] Diagnosis: CHRONIC TENSION HEADACHE[ICD9: 339.12] Diagnosis: Neck pain, chronic[ICD9: 723.1] Diagnosis: Change in skin mole[ICD9: 216.9] Zoya Varela MD, [facility] CPT-4: 81543 12/20/2011 Plan of Care Planned Activity Notes [...] to medications. 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 09/22/2018 [facility]ment[phone] ([facility] min) Moderate 09/22/2018 Patient Education: Patient Medication Summary Completed 09/22/2018 Appointment: [phone] (15 min) Moderate 09/09/2018 Visit Plan: Hypertension [...] she can be seen by Oncology in [place]. 06/08/2018 Appointment: [phone] [place] (15 min) Moderate 06/08/2018 Patient Education: Patient Medication Summary Completed 06/08/2018 Visit Plan: URI - Pt advised to inc rease fluids, vitamin C. Discussed natural and expected course of this diagnosis and need to alert me if symptoms do not follow expected course, or if any worse. RX sent to patient's pharmacy. 05/04/2018 Appointment[phone] [place] (30 min) Complex 05/04/2018 Patient [...] lower extremities. 02/04/2018 Appointment: [phone] [place] (15 min) Moderate 02/04/2018 Patient Education: [...] Completed 02/03/2018 Appointment: Laura Velasco WPtel: [phone] [phone] [facility] - Annual Wellness Visit 01/28/2018 Appointment: Zoya Varela WPtel: [phone] [facility] (15 min) Moderate 01/15/2018 Visit Plan: [...] [place]. 09/17/2017 Appointment: Zoya Varela WPtel: [phone] [facility] (15 min) Moderate 09/17/2017 Patient Education: Patient Medication Summary Completed 09/17/2017 Patient Education: Obesity Completed 09/17/2017 Patient Education: Hypertension Completed 09/17/2017 Care Plan: SCREENINGMAMMOGRAPHYDIGITAL [facility] : 88546-4 Pending 09/17/2017 Visit Plan: Poison Sarah -kenalog inj ection today in the office-start prednisone tomorrow pt is to use topical treatments as directed. Pt is cleanse clothing in hot water with soap, and call if symptoms do not improve or if they worsen. 06/23/2017 Appointment: Kacy Moses WPtel: [phone] (15 min) Moderate 06/23/2017 Patient Education: Patient [...] to medications. 05/13/2017 Appointment: Zoya Varela WPtel: [facility] (15 min) Moderate 05/13/2017 Patient Education: [...] they worsen. 03/21/2017 Appointment: Kacy Moses WPtel: [phone] (15 min) Moderate 03/21/2017 Patient Education: Patient [...] pain. 03/19/2017 Appointment: Laura Velasco WPtel: [phone] [phone] (15 min) Moderate 03/19/2017 Patient Education: Patient [...] hearing. 01/22/2017 Appointment: Laura Velasco WPtel: [phone] [phone] [facility] - Annual Wellness Visit 01/22/2017 Appointment: Nurse [...] home. 01/14/2017 Appointment: Zoya Varela WPtel: [phone] [facility] (15 min) Moderate 01/14/2017 Patient Education: [...] plan. 09/23/2016 Appointment: Kacy Moses WPtel: [phone] [phone] [place] (15 min) Moderate 09/23/2016 Patient Education: [...] medications. 09/16/2016 Appointment: Zoya Varela WPtel: [phone] [facility] (15 min) Moderate 09/16/2016 Patient Education: Patient Medication Summary Completed 09/16/2016 Patient Education: Obesity Completed 09/16/2016 Care Plan: SCREENINGMAMMOGRAPHYDIGITAL [facility] : 59156-7 Pending 09/16/2016 Visit Plan: Cracked/painful lips-ba cterial [...] any worse. 06/25/2016 Appointment: Kacy Moses WPtel: [address] [place], [place] [phone] (15 min) Moderate 06/25/2016 Patient Education: Patient [...] allergy spray. 04/03/2016 Appointment: Kacy Moses WPtel: [phone] [place] (30 min) Complex 04/03/2016 Patient Education: [...] Hypertension Completed 03/13/2016 Appointment: [facility]la [facility]Ptel[facility] ([facility] min) Moderate 02/28/2016 Appointment: Zoya Varela WPtel: [facility] (15 min) Moderate 02/01/2016 Visit Plan: [...] for treatment. 01/30/2016 Appointment: Zoya Varela WPtel: [address] [place] [address] (15 min) Moderate 01/30/2016 Patient Education: Patient [...] at home. 02/06/2015 Appointment: Zoya Varela WPtel: [phone] [place] [address] Follow up 02/06/2015 Patient Education: Patient Medication [...] edema. 01/10/2015 Appointment: [phone] Sick 01/10/2015 Patient Education: Patient Medication Summary [...] controlled. 07/19/2014 Appointment: Zoya Varela WPtel: [phone] [facility] Follow up 07/19/2014 Patient Education: Patient Medication Summary Completed 07/19/2014 Patient Education: Hypertension Completed 07/19/2014 Care Plan: SCREENINGMAMMOGRAPHYDIGITAL [facility] : 02651-4 Ordered 07/19/2014 Visit Plan: Left ankle pain-sprain- [...] home. 04/19/2014 Appointment: Kacy Moses WPtel: [phone] [phone] Diabetic education 04/19/2014 Patient Education: Patient Medication [...] to medications. 04/11/2014 Appointment: Zoya Varela WPtel: [address] [place] [address] Follow up 04/11/2014 Patient Education: Patient Medication [...] spray in the nasal steroid allergy spray. Lrttrey-bwxkdhtsrybc-trhrwiz xanax at bedtime Esophageal Reflux - the patient has been counseled against excessive intake of caffiene, spicy foods, peppermint, and cinnamon - all of which can exacerbate esophageal reflux. The patient is to take medications as prescribed and call the office if the symptoms are not improving. 03/10/2014 Appointment: Zoya Varela WPtel: [address] [place] [address] Other 03/10/2014 Patient Education: Patient Medication Summary [...] spray. 02/02/2014 Appointment: Kacy Moses WPtel: [phone] [phone] Other 02/02/2014 Patient Education: Patient Medication [...] the site. 10/25/2013 Appointment: Zoya Varela WPtel: [phone] [facility] Follow up 10/25/2013 Patient Education: Patient [...] AT BEDTIME 08/24/2013 Appointment: [phone] Follow [facility] 08/24/2013 Patient [...] concerns. 07/26/2013 Appointment: [phone] Follow up 07/26/2013 Patient [...] NOT IMPROVE. 06/30/2013 Appointment: Zoya Varela WPtel: [address] [place], [place] [phone] Other 06/30/2013 Patient Education: Patient Medication Summary [...] acute concerns. 06/24/2013 Appointment: Kacy Moses WPtel: [address] [place], [place] [phone] Follow up 06/24/2013 Patient Education: Patient Medication Summary Completed 06/24/2013 Patient Education: Hypertension Completed 06/24/2013 Appointment: Zoya Varela WPtel: [address] [place], [place] [phone] Other 03/23/2013 Visit Plan: Hypotension - pt is on chronic antihypertensive medication - the medication has been adjusted down to attempt to alleviate the low blood pressures. Leg pain - Leg swelling - pt to have ultrasound on her right lower leg due to post-operative swelling and pain. 12/01/2012 Appointment: Zoya Varela WPtel: [facility] Follow up 12/01/2012 Patient Education: Patient Medication Summary Completed 12/01/2012 Patient Education: Hypertension Completed 12/01/2012 Appointment: Zoya Varela WPtel: [facility] Follow up 10/20/2012 Visit Plan: Shingles - [...] considered contagious. 10/19/2012 Appointment: Zoya Varela WPtel: [facility] Other 10/19/2012 Patient Education: Patient Medication [...] peripheral edema. 10/07/2012 Appointment: Kacy Moses WPtel: [facility]5 [place] [phone] Other 10/07/2012 Patient Education: Hypertension Completed 10/07/2012 [...] edema. 2012 Appointment: [phone] [facility] 2012 Patient Education: Patient Medication Summary [...] EVENING. 08/18/2012 Appointment: Zoya Varela WPtel: [phone] [facility] Follow up 08/18/2012 Patient Education: Patient [...] knees. 08/04/2012 Appointment: Zoya Varela WPtel: [phone] [facility] Follow up 08/04/2012 Patient Education: Patient [...] twice daily. 07/01/2012 Appointment: Zoya Varela WPtel: [facility] Other 07/01/2012 Patient Education: Patient Medication [...] two weeks 05/20/2012 Appointment: Zoya Varela WPtel: [facility] Follow up 05/20/2012 Patient Education: Patient Medication Summary Completed 05/20/2012 Patient Education: High Blood Pressure: Essential Hypertension Completed 05/20/2012 Appointment: Zoya Varela WPtel: [facility] [place] Other 05/11/2012 Visit Plan: Hypertension [...] dosing. 04/20/2012 Appointment: [phone] [facility] 04/20/2012 Patient Education: Patient Medication [...] with codeine. 02/25/2012 Appointment: Zoya Varela WPtel: [address] [place] [address] Other 02/25/2012 Patient Education: Patient Medication Summary [...] the office. 02/19/2012 Appointment: Zoya Varela WPtel: [address] [place], [place] [phone] Other 02/19/2012 Patient Education: Patient Medication [...] office 01/23/2012 Appointment: [phone] Other 01/23/2012 Patient Education: Patient Medication [...] [phone] Other 01/02/2012 Patient Education: Patient Medication [...] 2 wks. 12/20/2011 Appointment: Zoya Varela WPtel: [address] [place] [address] New Patient 12/20/2011 Patient Education: Patient Medication Summary Completed 12/20/2011 Patient Education: High Blood Pressure: Essential Hypertension Completed 12/20/2011 Instructions Comment . Left ankle pain-sp rain-recommend rest ice and anti inflammatories as directed-also plan for xray left ankle Biotene OTC Decrease dose of Lyrica to 25 mg BID . Dry mouth-oral pain-discussed with Dr Varela-recommend patient start biotene mouth rinses to increase moisture-ok to decrease lyrica to see if symptoms improve-follow up in 2-3 weeks, sooner if needed. Patient verbalized understanding of plan. . Edema - pt has bee n advised to elevate legs to prevent dependent edema, compression has been recommended to help to naturally decrease peripheral edema. Diuretic use has been discussed and pt has been instructed in appropriate use of such medication as necessary to further attempt to reduce peripheral edema. No added salt, heart healthy diet recommended. DEXILANT 60MG DAILY- TAKE SAMPLES UNTIL GONE [...] office if the symptoms are not improving. THE PATIENT IS TO CH JUSTINE HER [...] is to call for acute concerns. . URI - Pt advised t o increase fluids, vitamin C. Discussed natural and expected course of this diagnosis and need to alert me if symptoms do not follow expected course, or if any worse. RX sent to patient's pharmacy. . Blood pressure hav ing a lot [...] do not improve or if they worsen. PT TO CUT AMLODIPINE TO 1/2 [...] leg due to post-operative swelling and pain. BENICAR 20MG DAILY SAMPLES GIVEN. 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 . Cracked/painful li ps-bacterial culture today in the office-discussed keeping lips well moisturized-get new toothbrush, lip gloss, etc. Call if symptoms do not resolve or if any worse. . Low back pain- the patient was [...] pressure readings in a few weeks. . Shingles - Herpes Zoster - acute [...] to be considered contagious. . Hypertension - wel l controlled - [...] neck pain-muscle spasms-refill flexeril for prn use START ACYCLOVIR TODA Y AND START THE [...] to become less controlled. . Hypertension - wel l controlled - [...] to further attempt to reduce peripheral edema. take the carafate as a liquid - [...] to assure normal liver response to medications. We will get a chest xray at [...] cream to the site. . Hypertension - unc ontrolled - the [...] CALL IF DIZZINESS DOES NOT IMPROVE. . Elevated blood sug ars-diabetes and diet [...] change in blood pressure readings at home. PATIENT IS TO CHECK BLOOD PRESSURE AND [...] spray in the nasal steroid allergy spray. Thigh high compressi on hose-on in the [...] to reduce peripheral edema. . Hypertension - un controlled - the [...] incident and had improvement in hearing. . Cracked/painful li ps-bacterial culture today in [...] she can be seen by Oncology in [place]. . Tick - tick with h ead [...] spray in the nasal steroid allergy spray. Ltlkoia-xduqzzdpodgk-ppootnu xanax at bedtime Esophageal Reflux - the [...]
--- OUTSIDE RECORDS SUMMARY | 2020-05-26 03:33 | XMS REPORT | CCD ---
Author Author Natali Varela Organization [facility] Address [address] [place] [address] Phone Care Team Providers Care Bindery Manager Name Role Phone PP Unavailable CCM Unavailable Summary Purpose Interface Exchange Insurance Providers Payer name Policy type / Coverage type Covered alliance party ID Effective Begin Date Effective End Date WPS Medicare Part B Medicare Part B [id number] Unknown [employer] Medicare Part B [id number] Unknown Family history Mother Diagnosis Age At Onset Liver Failure Unknown Diabetes mellitus Type 2 Unknown Hyperlipidemia Unknown Hypertension Unknown Cancer Unknown Arthritis Unknown Father Diagnosis Age At Onset Liver Failure Unknown Cancer Unknown Social History Social History Element Codes Description Effective Dates Marital status Unknown M arried 12/12/2011 Number of children Unknown 3 12/12/[address]: 3245337 Former smoker quit in 199212/12/2011 Allergies, Adverse Reactions, Alerts Allergies, Adverse Reactions, Alerts data not found Past Medical History Illness Codes Condition Status Onset Date Resolved Date Essential (primary) hypertension ICD-9: 401.9 ICD-10: I10 Active 06/16/2016 Unknown 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, except food ICD-9: 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.6 ICD-10: L23.7 Active 03/21/2017 Unknown Mixed hyperlipidemia ICD-9: 272.2 ICD-10: E78.2 Active 05/13/2017 Unknown Bitten or stung by n onvenomous [...] hypertension ICD-9: 401.9 ICD-10: I10 06/16/2016 Active 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, except food ICD-9: 692.6 ICD-10: L23.7 03/21/2017 Active Mixed hyperlipidemia ICD-9: 272.2 ICD-10: E78.2 05/13/2017 Active Bitten or stung by n onvenomous [...] Instructions cyclobenzaprine 10 m g tablet RxNorm: 963594 TAKE ONE TABLET BY MO UTH EVERY 8 HOURS NEEDED 11/21/2017 02/08/2018 Active metoprolol tartrate 100 mg tablet RxNorm: 397243 TAKE ONE AND ONE-HALF (1 1/2) TABLETS BY MOUTH EVERY MORNING AND TAKE TWO TABLETS BY MOUTH EVERY EVENING 10/28/2017 02/24/2018 Ac tive tramadol 50 mg tablet RxNorm: 837958 1-2 Tablet(s) PO Q8 as needed 10/28/2017 01/24/2018 Ac tive cyclobenzaprine 10 m g tablet RxNorm: 228566 TAKE ONE TABLET BY MO UTH EVERY 8 HOURS NEEDED 08/27/2017 10/25/2017 Inactive Xanax 0.25 mg tablet RxNorm: 163736 1/2-1 Tablet(s) PO QDAY PRN 08/04/2017 11/01/2017 Inactive cyclobenzaprine 10 m g tablet RxNorm: 746699 TAKE ONE TABLET BY MO UTH EVERY 8 HOURS NEEDED 07/28/2017 08/16/2017 Inactive metoprolol tartrate 100 mg tablet RxNorm: 615413 TAKE ONE AND ONE-HALF (1 & 1/2) TABLET BY MOUTH EVERY MORNING AND TAKE TWO TABLETS BY MOUTH EVERY EVENING 07/28/2017 10/25/2017 In active cyclobenzaprine 10 m g tablet RxNorm: 950107 TAKE ONE TABLET BY MO UTH EVERY 8 HOURS NEEDED 06/30/2017 07/19/2017 Inactive prednisone 10 mg tab lets in a dose pack RxNorm: 115723 1 Tablet(s) PO UD 06/23/2017 06/28/2017 In active 6-5-4-3-2-1 mupirocin 2 % topica l ointment RxNorm: 310765 1 Application TOP BID 06/23/2017 07/02/2017 Inactive Kenalog 40 mg/mL sylvia pension for injection RxNorm: 1915291 Milliliter(s) Inj 06/23/2017 06/23/2017 In active cyclobenzaprine 10 m g tablet RxNorm: 103839 TAKE ONE TABLET BY MO UTH EVERY 8 HOURS NEEDED 06/09/2017 06/28/2017 Inactive meclizine 25 mg tablet RxNorm: 829960 1 Tablet(s) PO Q6 PRN as needed 1/2 - 1 pill every 6 hours as needed for vertigo 06/03/2017 07/14/2017 Inactive atorvastatin 20 mg t ablet RxNorm: 918689 TAKE ONE TABLET BY MO UTH DAILY 05/30/2017 11/25/2017 In active amlodipine 5 mg tablet RxNorm: 282654 TAKE ONE TABLET BY MOUTH DAILY 05/15/2017 10/31/2019 Ac tive cyclobenzaprine 10 m g tablet RxNorm: 300411 TAKE ONE TABLET BY MO U[facility] EVERY 8 HOURS NEEDED 05/07/2017 05/26/2017 Inactive tramadol 50 mg tablet RxNorm: 253210 1-2 Tablet(s) PO Q8 as needed 04/07/2017 07/04/2017 In active cyclobenzaprine 10 m g tablet RxNorm: 621136 TAKE ONE TABLET BY MO UTH EVERY 8 HOURS NEEDED 04/07/2017 04/26/2017 Inactive Xanax 0.25 mg tablet RxNorm: 343109 1/2-1 Tablet(s) PO QDAY PRN 04/04/2017 06/02/2017 Inactive metoprolol tartrate 100 mg tablet RxNorm: 807338 TAKE ONE AND ONE-HALF (1 & 1/2) TABLET BY MOUTH EVERY MORNING AND TAKE TWO TABLETS BY MOUTH EVERY EVENING 03/28/2017 07/25/2017 In active prednisone 10 mg tab lets in a dose pack RxNorm: 529939 1 Tablet(s) PO UD 03/21/2017 03/26/2017 In active 6-5-4-3-2-1 Kenalog 40 mg/mL sylvia pension for injection RxNorm: 0556198 2 Milliliter(s) Inj 03/21/2017 03/21/2017 In active doxycycline hyclate 100 mg capsule RxNorm: 1811561 1 Capsule(s) PO BID 03/19/2017 03/28/2017 In active cyclobenzaprine 10 m g tablet RxNorm: 363370 TAKE ONE TABLET BY MO UTH EVERY 8 HOURS NEEDED 02/25/2017 03/16/2017 Inactive triamcinolone aceton pineda 0.1 % topical ointment RxNorm: 5682031 1 Application TOP TI D 02/21/2017 02/20/2017 Inactive triamcinolone aceton pineda 0.1 % topical ointment RxNorm: 3821157 1 Application TOP TI D 02/21/2017 03/02/2017 Inactive doxazosin 4 mg tablet RxNorm: 533944 TAKE ONE AND ONE-HALF (1 & 1/2) TABLET B Y MOUTH BY MOUTH TWO TIMES A DAY 02/14/2017 01/09/2018 Active cyclobenzaprine 10 m g tablet RxNorm: 043366 TAKE ONE TABLET BY MO U[facility] EVERY 8 HOURS NEEDED 01/27/2017 02/15/2017 Inactive ammonium lactate 12 % topical cream RxNorm: 863443 1 Application TOP BID 01/14/2017 02/12/2017 In active dispense one bottle of the cream potassium chloride E R 10 mEq tablet,extended release RxNorm: 912846 1 Tablet(s) PO PRN as needed with lasix 11/13/2016 No Stop Date Active prn swelling furosemide 20 mg tablet RxNorm: 606484 1 Tablet(s) PO daily as needed edema 11/13/2016 01/11/2017 In active metoprolol tartrate 100 mg tablet RxNorm: 838668 TAKE ONE AND ONE-HALF (1 & 1/2) TABLET BY MOUTH EVERY MORNING AND TAKE TWO TABLETS BY MOUTH EVERY EVENING 11/01/2016 03/27/2017 In active atorvastatin 20 mg t ablet RxNorm: 554455 TAKE ONE TABLET BY MO UTH DAILY 10/31/2016 04/28/2017 In active cyclobenzaprine 10 m g tablet RxNorm: 059790 TAKE ONE TABLET BY MO UTH EVERY 8 HOURS NEEDED 10/25/2016 12/03/2016 Inactive Lyrica 25 mg capsule RxNorm: 961613 1 Tablet(s) PO BID 09/23/2016 01/13/2017 Inactive Lyrica 50 mg capsule RxNorm: 937914 1 Capsule(s) PO BID 09/16/2016 01/13/2017 Inactive amlodipine 5 mg tablet RxNorm: 900276 Tablet(s) TAKE ONE TABLET BY MOUTH DAILY 08/28/2016 05/14/2017 In active cyclobenzaprine 10 m g tablet RxNorm: 106307 TAKE ONE TABLET BY [facility] EVERY 8 HOURS NEEDED 08/05/2016 09/13/2016 Inactive Xanax 0.25 mg tablet RxNorm: 292666 1/2-1 Tablet(s) PO QDAY PRN 07/16/2016 04/03/2017 Inactive amlodipine 5 mg tablet RxNorm: 678358 TAKE ONE TABLET BY MOUTH DAILY 06/28/2016 08/26/2016 In active metoprolol tartrate 100 mg tablet RxNorm: 049889 Tablet(s) TAKE ONE AN D ONE-HALF (1 & 1/2) TABLET BY MOUTH EVERY MORNING AND TAKE TWO TABLETS BY MOUTH EVERY EVENING 05/02/2016 05/02/2016 Inactive metoprolol tartrate 100 mg tablet RxNorm: 643321 Tablet(s) PO TAKE ONE AND ONE-HALF (1 & 1/2) TABLET BY MOUTH EVERY MORNING AND TAKE TWO TABLETS BY MOUTH EVERY EVENING 05/02/2016 05/01/2016 Inactive metoprolol tartrate 100 mg tablet RxNorm: 325165 Tablet(s) PO TAKE ONE AND ONE-HALF (1 & 1/2) TABLET BY MOUTH EVERY MORNING AND TAKE TWO TABLETS BY MOUTH EVERY EVENING 05/02/2016 10/28/2016 Inactive atorvastatin 20 mg t ablet RxNorm: 498238 TAKE ONE TABLET BY [facility] DAILY 04/25/2016 10/21/2016 In active tramadol 50 mg tablet RxNorm: 087124 1-2 Tablet(s) PO Q8 as needed 04/25/2016 10/27/2017 In active cyclobenzaprine 10 m g tablet RxNorm: 627972 Tablet(s) PO TAKE ONE TABLET BY MOUTH EVERY 8 HOURS NEEDED 04/18/2016 06/16/2016 Inactive Kenalog 40 mg/mL sylvia pension for injection RxNorm: 3751080 1 Milliliter(s) Inj 04/04/2016 04/04/2016 In active Phenergan with Codei ne Syrup RxNorm: PO 04/03/2016 No Stop Date Active Zithromax Z-Kush 250 mg tablet RxNorm: 957448 1 Tablet(s) PO UD 04/03/2016 04/07/2016 Inactive 2 tabs on day 1 then 1 tab daily on days 2-5 amlodipine 5 mg tablet RxNorm: 656540 TAKE ONE TABLET BY MOUTH DAILY 03/27/2016 06/24/2016 In active Flexeril 10 mg tablet RxNorm: 348588 TAKE ONE TABLET BY MOUTH EVERY 8 HOURS A S NEEDED 03/14/2016 04/02/2016 Inactive Vitamin B-12 ER 2,00 0 mcg tablet,extended release RxNorm: 429101 1 Tablet(s) PO daily 03/13/2016 No Stop Date Active Vitamin B-12 ER 2,00 0 mcg tablet,extended release RxNorm: 727529 1 Tablet(s) PO daily 03/13/2016 No Stop Date Active gabapentin 100 mg ca psule RxNorm: 893846 1 Capsule(s) PO BID 03/13/2016 09/15/2016 Inactive Flexeril 10 mg tablet RxNorm: 179394 Tablet(s) TAKE ONE TABLET BY MOUTH EVERY 8 HOURS NEEDED 02/08/2016 02/27/2016 Inactive Xanax 0.25 mg tablet RxNorm: 844628 1/2-1 Tablet(s) PO QDAY PRN 02/08/2016 07/15/2016 Inactive amlodipine 5 mg tablet RxNorm: 137359 1 Tablet(s) PO daily 02/06/2016 03/26/2016 Inactive furosemide 20 mg tablet RxNorm: 953807 1 Tablet(s) PO daily 01/30/2016 06/16/2016 Inactive amlodipine 10 mg tablet RxNorm: 822642 1/2 Tablet(s) PO daily 01/30/2016 02/05/2016 Inactive doxazosin 4 mg tablet RxNorm: 499365 1.5 Tablet(s) PO BID 01/30/2016 01/23/2017 Inactive Flexeril 10 mg tablet RxNorm: 687725 TAKE ONE TABLET BY MOUTH EVERY 8 HOURS A S NEEDED 01/10/2016 01/29/2016 Inactive potassium chloride E R 10 mEq tablet,extended release RxNorm: 973779 1 Tablet(s) PO PRN as needed with lasix 12/25/2015 06/16/2016 Inactive prn swelling amlodipine 10 mg tablet RxNorm: 375638 TAKE ONE TABLET BY MOUTH EVERY MORNING 12/25/2015 12/24/2015 In active amlodipine 10 mg tablet RxNorm: 193034 TAKE ONE TABLET BY MOUTH EVERY MORNING 12/25/2015 01/29/2016 In active furosemide 20 mg tablet RxNorm: 657139 1/2 Tablet(s) PO daily as needed edema 12/21/2015 01/19/2016 In active pt needs to take 10meq potassium on days she takes the lasix metoprolol tartrate 100 mg tablet RxNorm: 064638 TAKE ONE AND ONE-HALF (1 & 1/2) TABLET BY MOUTH EVERY MORNING AND TAKE TWO TABLETS BY MOUTH EVERY EVENING 11/08/2015 12/07/2015 In active Flonase Allergy Reli ef 50 mcg/actuation nasal spray,suspension RxNorm: [place] as needed PLACE 2 SPRAYS IN EACH NOSTRIL DAILY 10/09/2015 02/05/2016 Inactive Flexeril 10 mg tablet RxNorm: 684721 1 Tablet(s) PO TID PRN TAKE ONE TABLET B Y MOUTH EVERY 8 HOURS NEEDED 10/09/2015 12/07/2015 Inactive alprazolam 0.5 mg ta blet RxNorm: 760982 TAKE ONE TABLET BY MO [facility] AT BEDTIME NEEDED FOR ANXIETY 08/29/2015 11/23/2015 Inactive Flonase Allergy Reli ef 50 mcg/actuation nasal spray,suspension RxNorm: PLACE 2 SPRAYS IN EACH NOSTRIL DAILY 07/06/2015 10/08/2015 Inactive Kenalog 40 mg/mL sylvia pension for injection RxNorm: 4049927 Milliliter(s) Inj 06/12/2015 06/12/2015 In active prednisone 10 mg tab lets in a dose pack RxNorm: 467717 1 Tablet(s) PO UD 06/12/2015 06/17/2015 In active 6-5-4-3-2-1 acyclovir 800 mg tablet RxNorm: 525209 1 Tablet(s) PO TID 06/12/2015 06/21/2015 Inactive Xanax 0.25 mg tablet RxNorm: 264239 1/2-1 Tablet(s) PO QDAY PRN 05/15/2015 02/07/2016 Inactive Flonase Allergy Reli ef 50 mcg/actuation nasal spray,suspension RxNorm: 2 [place] NASAL daily 05/15/2015 06/13/2015 Inactive Kenalog 40 mg/mL sylvia pension for injection RxNorm: 1222521 Milliliter(s) Inj 05/15/2015 05/15/2015 In active metoprolol tartrate 100 mg tablet RxNorm: 983334 TAKE ONE AND ONE-HALF (1 & 1/2) TABLET BY MOUTH EVERY MORNING AND TAKE TWO TABLETS BY MOUTH EVERY EVENING 05/07/2015 06/05/2015 In active metoprolol tartrate 100 mg tablet RxNorm: 303763 TAKE ONE AND ONE-HALF (1 & 1/2) TABLET BY MOUTH EVERY MORNING AND TAKE TWO TABLETS BY MOUTH EVERY EVENING 04/05/2015 05/04/2015 In active amlodipine 10 mg tablet RxNorm: 847247 TAKE ONE TABLET BY MOUTH EVERY MORNING 03/10/2015 12/04/2015 In active alprazolam 0.5 mg ta blet RxNorm: 054813 TAKE ONE TABLET BY MO UTH EVERY NIGHT AT BEDTIME NEEDED FOR ANXIETY 02/23/2015 03/24/2015 Inactive (Response to an electronic controlled substance refill request - RxReferenceNumber: [id number]) alprazolam 0.5 mg ta blet RxNorm: 196420 1 Tablet(s) PO QHS as needed anxiety 02/23/2015 08/29/2015 In active (Response to an electronic controlled salas bstance refill request - RxReferenceNumber: [id number]) doxazosin 4 mg tablet RxNorm: 992396 TAKE ONE TABLET BY MOUTH TWICE A DAY 02/13/2015 01/29/2016 In active atorvastatin 20 mg t ablet RxNorm: 594661 TAKE ONE TABLET BY MO UTH EVERY DAY 01/19/2015 07/17/2015 In active atorvastatin 20 mg t ablet RxNorm: 245806 Tablet(s) TAKE ONE TA BLET BY MOUTH EVERY DAY 01/19/2015 01/18/2015 Inactive [SAVINGS FOR NON-COVERED DRUGS -- BIN:00 [id number], PCN: ASPROD1, Group: XXXXX, ID# [id number], Questions: . THIS IS NOT INSURANCE.] Maxzide-25mg 37.5 mg -25 mg tablet RxNorm: 14052 1 Tablet(s) PO daily 01/10/2015 10/08/2015 Inactive [SAVINGS FOR NON-COVERED DRUGS -- BIN:00 3585, PCN: ASPROD1, Group: XXXXX, ID# [id number], Questions: . THIS IS NOT INSURANCE.] metoprolol tartrate 100 mg tablet RxNorm: 850766 TAKE ONE AND ONE-HALF (1 & 1/2) TABLET BY MOUTH EVERY MORNING AND TAKE TWO TABLETS BY MOUTH EVERY EVENING 12/05/2014 01/03/2015 In active Flexeril 10 mg tablet RxNorm: 263288 TAKE ONE TABLET BY MOUTH EVERY 8 HOURS A S NEEDED 10/31/2014 06/27/2015 Inactive alprazolam 0.5 mg ta blet RxNorm: 584427 1 Tablet(s) PO QHS TA KE ONE TABLET BY MOUTH EVERY NIGHT AT BEDTIME AND NEEDED FOR PANIC ATTACKS 10/21/2014 10/23/2014 Inactive (Appended: Controlled substance eRx refi ll - RxReferenceNumber: [id number]) alprazolam 0.5 mg ta blet RxNorm: 587385 TAKE ONE TABLET BY MO UTH EVERY NIGHT AT BEDTIME NEEDED FOR ANXIETY 10/20/2014 11/18/2014 Inactive (Response to an electronic controlled substance refill request - RxReferenceNumber: [id number]) amlodipine 10 mg tablet RxNorm: 187895 1 Tablet(s) PO QAM 09/09/2014 03/07/2015 Inactive now taking full tab [SAVINGS FOR UNINSURED PATIENTS -- BIN:[id number], PCN: ASPROD1, Group: [id number], ID# [id number], Process claim through [employer], for questions: . THIS IS NOT INSURANCE.] metoprolol tartrate 100 mg tablet RxNorm: 104232 TAKE ONE AND ONE-HALF (1 & 1/2) TABLET BY MOUTH EVERY MORNING AND TAKE TWO TABLETS BY MOUTH EVERY EVENING 09/03/2014 10/02/2014 In active alprazolam 0.5 mg ta blet RxNorm: 573965 TAKE ONE TABLET BY MO UTH EVERY NIGHT AT BEDTIME AND NEEDED FOR PANIC ATTACKS 08/29/2014 09/12/2014 Inactive (Response to an electronic controlled substance refill request - RxReferenceNumber: [id number]) Zithromax Z-Kush 250 mg tablet RxNorm: 844937 1 Tablet(s) PO UD 07/26/2014 07/25/2014 Inactive 2 tabs on day 1 then 1 tab daily on days 2-5 Zithromax Z-Kush 250 mg tablet RxNorm: 158635 1 Tablet(s) PO UD 07/26/2014 07/30/2014 Inactive 2 tabs on day 1 then 1 tab daily on days 2-5 alprazolam 0.5 mg ta blet RxNorm: 483242 Tablet(s) PO TAKE ONE TABLET BY MOUTH EVERY NIGHT AT BEDTIME AND NEEDED FOR PANIC ATTACKS 07/08/2014 08/30/2014 Inactive (Appended: Controlled substance eRx refill - RxReferenceNumber: [id number]) atorvastatin 20 mg t ablet RxNorm: 900032 TAKE ONE TABLET BY MO [facility] EVERY DAY 04/25/2014 01/18/2015 In active Carafate 1 gram tablet RxNorm: 241773 Tablet(s) PO TAKE ONE TABLET BY MOUTH FO UR TIMES A DAY 04/14/2014 10/08/2015 Inactive Fish Oil 1,000 mg ca psule RxNorm: 1 Capsule(s) PO TID 04/13/2014 10/08/2015 Inactive Flexeril 10 mg tablet RxNorm: 114008 1 Tablet(s) PO Q8 PRN 04/01/2014 04/10/2014 Inactive Carafate 1 gram tablet RxNorm: 508483 1 Tablet(s) PO QID 03/10/2014 04/08/2014 Inactive chlordiazepoxide-cli dinium 5 mg-2.5 mg capsule RxNorm: 283452 1 Capsule(s) PO TID P RN 03/10/2014 04/10/2014 Inactive doxazosin 4 mg tablet RxNorm: 091789 1 Tablet(s) PO BID 02/02/2014 02/12/2015 Inactive Kenalog 40 mg/mL sylvia pension for injection RxNorm: 3573359 Milliliter(s) Inj 02/02/2014 02/02/2014 In active atorvastatin 20 mg t ablet RxNorm: 666940 Tablet(s) PO TAKE ONE TABLET BY MOUTH EVERY DAY 01/10/2014 04/24/2014 Inactive alprazolam 0.5 mg ta blet RxNorm: 404608 Tablet(s) PO TAKE ONE TABLET BY MOUTH EVERY NIGHT AT BEDTIME AND NEEDED FOR PANIC ATTACKS 01/10/2014 07/07/2014 Inactive (Appended: Controlled substance eRx refill - RxReferenceNumber: [id number]) alprazolam 0.5 mg ta blet RxNorm: 058602 1 Tablet(s) PO QHS TA KE ONE TABLET BY MOUTH EVERY NIGHT AT BEDTIME AND NEEDED FOR PANIC ATTACKS 01/10/2014 10/20/2014 Inactive (Appended: Controlled substance eRx refi ll - RxReferenceNumber: [id number]) alprazolam 0.5 mg ta blet RxNorm: 625211 Tablet(s) PO TAKE ONE TABLET BY MOUTH EVERY NIGHT AT BEDTIME AND NEEDED FOR PANIC ATTACKS 01/10/2014 01/09/2014 Inactive (Appended: Controlled substance eRx refill - RxReferenceNumber: [id number]) Carafate 1 gram tablet RxNorm: 935240 1 Tablet(s) PO QID 12/16/2013 01/14/2014 Inactive Nexium 40 mg capsule ,delayed release RxNorm: 887905 Capsule(s) PO TAKE ON E CAPSULE BY MOUTH EVERY DAY 11/25/2013 03/12/2016 Inactive doxazosin 4 mg tablet RxNorm: 414914 1/2 Tablet(s) PO QPM 10/21/2013 10/20/2013 Inactive alprazolam 0.5 mg ta blet RxNorm: 854327 1 Tablet(s) PO as dir ected q hs and prn panic attacks 10/18/2013 01/10/2014 Inactive doxazosin 4 mg tablet RxNorm: 680216 1 q am 1/2 q pm Tablet(s) PO 09/21/2013 02/01/2014 Inactive doxazosin 4 mg tablet RxNorm: 538127 1 q am 1/2 q pm Tablet(s) PO 09/21/2013 09/20/2013 Inactive amlodipine 10 mg tablet RxNorm: 395140 1 Tablet(s) PO QAM 08/30/2013 08/24/2014 Inactive now taking full tab metoprolol tartrate 100 mg tablet RxNorm: 996317 2 Tablet(s) PO QPM 08/24/2013 10/22/2013 Inactive alprazolam 0.5 mg ta blet RxNorm: 440345 1 Tablet(s) PO as dir ected q hs and prn panic attacks 07/29/2013 10/17/2013 Inactive Benicar 20 mg tablet RxNorm: 215953 1 Tablet(s) PO daily 07/26/2013 08/09/2013 Inactive amlodipine 10 mg tablet RxNorm: 102390 1 Tablet(s) PO QAM 07/19/2013 08/29/2013 Inactive cyclobenzaprine 5 mg tablet RxNorm: 630448 1 Tablet(s) PO TID CO N one pill every 8 hours as needed for muscle spasms. 07/19/2013 03/31/2014 Inactive Kenalog 40 mg/mL Sylvia p for Injection RxNorm: 5583363 1 Milliliter(s) Inj 06/30/2013 06/30/2013 In active prednisone 10 mg tab lets in a dose pack RxNorm: 937772 1 Tablet(s) PO as doc tor directed take steroid taper as directed on box 06/30/2013 07/09/2013 Inactive disp ense one PACK meclizine 25 mg tablet RxNorm: 455387 1 Tablet(s) PO Q6 PRN 1/2 - 1 pill every 6 hours as needed for vertigo 06/30/2013 08/10/2013 Inactive metoprolol tartrate 100 mg tablet RxNorm: 326257 1.5 Tablet(s) PO BID 06/30/2013 08/23/2013 In active metoprolol tartrate 100 mg tablet RxNorm: 456066 1 Tablet(s) PO BID 06/24/2013 06/29/2013 Inactive metoprolol tartrate 100 mg tablet RxNorm: 725272 1 Tablet(s) PO daily 06/17/2013 06/23/2013 In active metoprolol tartrate 100 mg tablet RxNorm: 405884 1 Tablet(s) PO daily 06/17/2013 06/16/2013 In active Toprol XL 100 mg tab let,extended release RxNorm: 249606 Tablet(s) PO TAKE ONE AND ONE- HALF TABLET BY MOUTH EVERY MORNING AND ONE TABLET IN THE EVENING 05/05/2013 06/22/2013 In active alprazolam 0.5 mg ta blet RxNorm: 446345 1 Tablet(s) PO as dir ected q hs and prn panic attacks 04/06/2013 07/28/2013 Inactive doxazosin 4 mg tablet RxNorm: 220078 Tablet(s) PO TAKE ONE TABLET BY MOUTH EV KANE DAY 04/01/2013 09/20/2013 Inactive Toprol XL 100 mg tab let,extended release RxNorm: 270336 Tablet(s) PO TAKE ONE AND ONE- HALF TABLET BY MOUTH EVERY MORNING AND ONE TABLET IN THE EVENING 12/25/2012 05/04/2013 In active Lasix 20 mg tablet RxNorm: 219406 1 Tablet(s) PO QDAY PRN Take 1 tab daily x 3 days then as needed 12/02/2012 04/10/2014 Inactive potassium chloride E R 20 mEq tablet,extended release(part/cryst) RxNorm: 697496 1 Tablet(s) PO PRN 12/02/2012 10/04/2013 Inactive prn swelling alprazolam 0.5 mg ta blet RxNorm: 918645 1 Tablet(s) PO as dir ected q hs and prn panic attacks 12/01/2012 04/05/2013 Inactive amlodipine 10 mg tablet RxNorm: 826376 1/2 Tablet(s) PO QAM 12/01/2012 07/18/2013 Inactive fluconazole 150 mg t ablet RxNorm: 581999 1 Tablet(s) PO daily 11/16/2012 11/20/2012 Inactive fluconazole 150 mg t ablet RxNorm: 775466 1 Tablet(s) PO daily 11/16/2012 11/15/2012 Inactive Nexium 40 mg capsule ,delayed release RxNorm: 128105 1 Capsule(s) PO daily 10/23/2012 11/16/2013 In active acyclovir 400 mg tablet RxNorm: 579797 1 Tablet(s) PO TID 10/19/2012 10/28/2012 Inactive chlordiazepoxide-cli dinium 5 mg-2.5 mg capsule RxNorm: 163936 1 Capsule(s) PO TID P RN 2012 12/22/2013 Inactive Voltaren 1 % Topical Gel RxNorm: 785417 4 Gram(s) TOP QID pt is to use 2 grams to each hand and 4 grams to knees. 08/18/2012 04/10/2014 Inactive doxazosin 4 mg tablet RxNorm: 648707 1 Tablet(s) PO QAM 08/18/2012 10/16/2012 Inactive atorvastatin 20 mg t ablet RxNorm: 355313 1 Tablet(s) PO HS 08/12/2012 08/11/2012 Inactive may have #90 x3 infection atorvastatin 20 mg t ablet RxNorm: 464333 1 Tablet(s) PO HS 08/12/2012 09/05/2013 Inactive may have #90 x3 infection doxazosin 4 mg tablet RxNorm: 799262 1 Tablet(s) PO daily 08/11/2012 08/17/2012 Inactive clonidine 0.1 mg/24 hr Weekly Transderm Patch RxNorm: 981399 1 Patch TD QW 08/04/2012 08/10/2012 In active Influenza Virus Vacc ine 0.5 mL RxNorm: IM 08/04/2012 08/04/2012 Inactive cyclobenzaprine 5 mg tablet RxNorm: 533603 1 Tablet(s) PO TID CO N one pill every 8 hours as needed for muscle spasms. 07/13/2012 11/09/2012 Inactive cyclobenzaprine 5 mg tablet RxNorm: 245770 1 Tablet(s) PO TID CO N one pill every 8 hours as needed for muscle spasms. 07/09/2012 07/12/2012 Inactive gabapentin 100 mg ca psule RxNorm: 978569 1 Capsule(s) PO TID 07/01/2012 12/01/2012 Inactive atorvastatin 20 mg t ablet RxNorm: 935894 1/2 Tablet(s) PO daily 07/01/2012 08/11/2012 Inactive may of day supply if cheaper Toprol XL 100 mg tab let,extended release RxNorm: 336546 Tablet(s) PO BID 11/2 in am and 1 in evening 07/01/2012 06/16/2013 Inactive 1 1/2 q am 1 in [place] alprazolam 0.5 mg ta blet RxNorm: 780602 1 Tablet(s) PO as dir ected q hs and prn panic attacks 06/24/2012 11/30/2012 Inactive amlodipine 10 mg tablet RxNorm: 817254 1 Tablet(s) PO QAM 06/19/2012 11/30/2012 Inactive benazepril 20 mg tablet RxNorm: 511574 1 Tablet(s) PO daily 06/19/2012 06/13/2013 Inactive one daily at noon Toprol XL 100 mg tab let,extended release RxNorm: 372755 Tablet(s) PO BID 06/19/2012 06/30/2012 In active 1 1/2 q am 1 in polly Toprol XL 100 mg tab let,extended release RxNorm: 845393 1 1/2 Tablet(s) PO BI D 04/27/2012 06/18/2012 In active 90 or 30 day supply, whatever ins will a llow Lotrel 10 mg-20 mg Cap RxNorm: 018163 1 Capsule(s) PO daily 04/20/2012 08/04/2012 Inactive estradiol 0.5 mg Tab RxNorm: 636850 1 Tablet(s) PO BID 04/20/2012 12/02/2012 Inactive Toprol XL 100 mg 24 hr Tab RxNorm: 700781 1 1/2 Tablet(s) PO BID 04/14/2012 04/26/2012 Inactive Toprol XL 100 mg 24 hr Tab RxNorm: 822965 Tablet(s) PO daily 03/31/2012 04/13/2012 Inactive new directions: one q am 1/2 every evepl ease put on file until she needs filled Lipitor 10 mg tablet RxNorm: 653206 1 Tablet(s) PO daily 03/31/2012 12/02/2012 Inactive may of 90 day supply if cheaper Toprol XL 100 mg 24 hr Tab RxNorm: 715493 1 Tablet(s) PO daily 03/11/2012 03/30/2012 Inactive Boniva 150 mg Tab RxNorm: 775383 1 Tablet(s) PO weekly 02/19/2012 12/02/2012 Inactive Detrol LA 4 mg capsu le,extended release RxNorm: 535826 1 Capsule(s) PO daily 02/19/2012 03/12/2016 In active doxycycline hyclate 100 mg Tab RxNorm: 611419 1 Tablet(s) PO BID 01/23/2012 02/25/2012 Inactive Rocephin 500 mg Solu tion for Injection RxNorm: 046253 1 Milliliter(s) Inj 01/23/2012 01/23/2012 In active Kenalog 40 mg/mL Sylvia p for Injection RxNorm: 7441463 1 Milliliter(s) Inj 01/23/2012 01/23/2012 In active cyclobenzaprine 5 mg tablet RxNorm: 836279 1 Tablet(s) PO TID CO N one pill every 8 hours as needed for muscle spasms. 12/20/2011 04/17/2012 Inactive clonidine 0.1 mg Tab RxNorm: 395848 1 Tablet(s) PO BID 12/20/2011 02/25/2012 Inactive Vitamin D3 5,000 uni t tablet RxNorm: 991543 1 Tablet(s) PO daily No Start Date Active Nexium 24HR 22.3 mg capsule,delayed release RxNorm: 754745 1 Capsule(s) PO daily as needed No Start Date Active Fish Oil 360 mg-1,20 0 mg capsule,delayed release RxNorm: 1 Capsule(s) PO daily No Start Date Active Lotrel 10 mg-20 mg Cap RxNorm: 152052 1 Capsule(s) PO daily No Start Date 02/24/2012 Inactive benazepril 20 mg tablet RxNorm: 959945 1 Tablet(s) PO No Start Date 06/18/2012 Inactive one daily at noon Vimovo 500 mg-20 mg multiphase, immed & delay rel Tab RxNorm: 995488 1 Tablet(s) PO BID No Start Date 12/01/2012 Inactive B12 1000 mcg RxNorm: 2 IM daily No Start Date 03/12/2016 Inactive Fish Oil 1,000 mg ca psule RxNorm: 1 Capsule(s) PO BID No Start Date 04/12/2014 Inactive Benicar 40 mg tablet RxNorm: 066915 1 Tablet(s) PO daily No Start Date 10/24/2013 Inactive Carafate 1 gram tablet RxNorm: 434774 Oral No Start Date 12/15/2013 Inactive Vitamin B-12 1,000 m cg tablet RxNorm: 130766 1 Tablet(s) PO daily No Start Date 03/12/2016 Inactive amlodipine 10 mg tablet RxNorm: 788675 1 Tablet(s) PO daily No Start Date 06/18/2012 Inactive Phenergan VC-Codeine 6.25 mg-5 mg-10 mg/5 mL Syrup RxNorm: 604638 5-10 Milliliter(s) PO Q6 PRN No Start Date 04/10/2014 Inactive Celebrex 200 mg capsule RxNorm: 895520 1 Capsule(s) PO daily No Start Date 10/08/2015 Inactive Percocet 5 mg-325 mg tablet RxNorm: 1264901 1-2 Tablet(s) PO Q6 PRN No Start Date 06/16/2014 Inactive Exforge 10 mg-320 mg Tab RxNorm: 820822 1 Tablet(s) PO daily sample No Start Date 05/20/2012 Inactive Lipitor 10 mg Tab RxNorm: 286260 1 Tablet(s) PO daily No Start Date 03/30/2012 Inactive tramadol 50 mg tablet RxNorm: 453237 1-2 Tablet(s) PO Q8 as needed No Start Date 04/24/2016 Inactive Lasix 20 mg tablet RxNorm: 281724 1 Tablet(s) PO QDAY PRN Take 1 tab daily x 3 days then as needed No Start Date 12/01/2012 Inactive potassium chloride E R 20 mEq tablet,extended release(part/cryst) RxNorm: 0179259 1 Tablet(s) PO QDAY PRN No Start [place] e 12/01/2012 Inactive Toprol XL 100 mg 24 hr Tab RxNorm: 212932 1 Tablet(s) PO daily No Start Date 03/10/2012 Inactive MIDRIN 325 mg-65 mg- 100 mg Cap RxNorm: 754835 1 Capsule(s) PO PRN No Start Date 05/20/2012 Inactive Nexium 40 mg capsule ,delayed release RxNorm: 989333 1 Capsule(s) PO daily No Start Date 10/22/2012 Inactive Detrol LA 4 mg 24 hr Cap RxNorm: 705464 Oral No S tart Date 02/18/2012 Inactive Boniva 150 mg Tab RxNorm: 309558 Oral No Start Date 02/18/2012 Inactive Flexeril 10 mg tablet RxNorm: 867719 1 Tablet(s) PO Q8 PRN No Start Date 03/31/2014 Inactive clidinium bromide Oral RxNorm: Oral No Start Date 12/01/2012 Inactive alprazolam 0.5 mg ta blet RxNorm: 094108 1 Tablet(s) PO as dir ected q hs and prn panic attacks No Start Date 06/23/2012 Inactive chlordiazepoxide Oral RxNorm: Oral No Start Date 12/01/2012 Inactive metoprolol tartrate 100 mg tablet RxNorm: 591114 Tablet(s) PO TAKE ONE AND ONE-HALF (1 & 1/2) TABLET BY MOUTH EVERY MORNING AND TAKE TWO TABLETS BY MOUTH EVERY EVENING No Start Date 08/03/2014 Inactive furosemide 20 mg tablet RxNorm: 831380 1 Tablet(s) PO daily No Start Date 01/29/2016 Inactive Calcium Oral RxNorm: Oral No Start Date 03/12 Inactive Nasonex 50 mcg/actua tion [place] RxNorm: 123246 1 [place] NASAL BID No Start Date 04/10/2014 Inactive Medication Administered Medication Codes Instruc tions Start Date Status Kenalog 40 mg/mL suspension for injection RxNorm: 7089780 Milliliter 06/23/2017 No longer Active Kenalog 40 mg/mL suspension for injection RxNorm: 4100366 2Milliliter 03/21/2017 N o longer Active Kenalog 40 mg/mL suspension for injection RxNorm: 6479523 1Milliliter 04/04/2016 N o longer Active Kenalog 40 mg/mL suspension for injection RxNorm: 9935228 Milliliter 06/12/2015 No longer Active Kenalog 40 mg/mL suspension for injection RxNorm: 9898172 Milliliter 05/15/2015 No longer Active Kenalog 40 mg/mL suspension for injection RxNorm: 6224713 Milliliter 02/02/2014 No longer Active Kenalog 40 mg/mL Susp for Injection RxNorm: 8835431 1Milliliter 06/30/2013 N o longer Active Influenza Virus Vaccine 0.5 mL RxNorm: 08/04/2012 No longer Active Rocephin 500 mg Solution for Injection RxNorm: 604069 1Milliliter 01/23/2012 N o longer Active Kenalog 40 mg/mL Susp for Injection RxNorm: 7414674 1Milliliter 01/23/2012 N o longer Active Immunizations [...] (primary) hypertension ICD -10: I10 ICD-9: 401.9 09/17/2017 Allergic contact dermatitis due to plants, except food ICD-10: L23.7 ICD-9: 692.6 06/23/2017 Mixed hyperlipidemia ICD-10: E78.2 ICD-9: 272.2 05/13/2017 Cellulitis of left lower limb ICD-10 : [...] Reason For Visit Effective Dates Notes hypertension 09/17/2017 rash 06/23/2017 hypertension 05/13/2017 rash [...] Observation Code Item Item Code Result Date Comp Metabolic Ooa896 NA 138 mEq/L 06/05/2015 Comp Metabolic Txi369 K 4.3 mEq/L 06/05/2015 Comp Metabolic Pum881 CL 100 mEq/L 06/05/2015 Comp Metabolic Ecx394 CO2 29.0 mEq/L 06/05/2015 Comp Metabolic Nwe877 AN ION GAP 13 06/05/2015 Comp Metabolic Sfw712 GL UCOSE 85 mg/dL 06/05/2015 Comp Metabolic Dpn175 Cr eat 0.7 mg/dL 06/05/2015 Comp Metabolic Hru708 eG FR 94 ml/min/1.73m2 06/05 Comp Metabolic Zaj306 BUN 16 mg/dL 06/05/2015 Comp Metabolic Huq418 B/ C Ratio 24.2 Ratio 06/05/2015 Comp Metabolic Ptq421 CA LCIUM 9.5 mg/dL 06/05/2015 Comp Metabolic Hlo545 AL K PHOS 69 U/L 06/05/2015 Comp Metabolic Qaj508 T(SGOT) 22 U/L 06/05/2015 Comp Metabolic Ohw221 AL T(SGPT) 26 U/L 06/05/2015 Comp Metabolic Hzk606 BI LI T 0.5 mg/dL 06/05/2015 Comp Metabolic Xdl843 AL BUMIN 4.2 g/dL 06/05/2015 Comp Metabolic Khy049 TP RO 6.1 g/dL 06/05/2015 Comp Metabolic Fpj361 GL OB 1.9 g/dL 06/05/2015 Comp Metabolic Mnm339 A/ G Ratio 2.2 Ratio 06/05/2015 Comp Metabolic Hom824 Os mo 276 mOsmo 06/05/2015 Lipid Ord30 CHOL 171 mg/dL 06/05/2015 Lipid Ord30 HDL 55.0 mg/dl 06/05/2015 Lipid Ord30 TRIG 178 mg/dL 06/05/2015 Lipid Ord30 LDL 80 mg/dL 06/05/2015 Lipid Ord30 C/HDL 3.1 Ratio 06/05/2015 Tsh Ord6 hTSH II 1.99 uIU/mL 06/05/2015 Cbc With Differential Ord2 WBC 5.7 K/uL [...] Differential Ord2 RDW 14.8 % 06/05/2015 %Hba1C Gkh160 % HbA1c 31296-9 5.7 % 06/05/2015 %Hba1C Bdm949 Gluc Ave 117 mg/dL 06/05/2015 CHEM 14 9676818 AST 21 U/L 07/15/2014 CHEM 14 7022774 ALT 23 IU/L 07/15/2014 CHEM 14 2980187 BUN 14 MG/DL 07/15/2014 CHEM 14 8783855 ALBUMIN 4.2 GM/DL 07/15/2014 CHEM 14 7929295 CHLORIDE 104 MMOL/L 07/15/2014 CHEM 14 4339882 BILI TOT 0.4 MG/DL 07/15/2014 CHEM 14 8765773 ALK PHOS 88 U/L 07/15/2014 CHEM 14 8577949 SODIUM 140 MMOL/L 07/15/2014 CHEM 14 3618651 CREATINI NE 0.63 MG/DL 07/15/2014 CHEM 14 7820272 CALCIUM 9.4 MG/DL 07/15/2014 CHEM 14 4486251 POTASSIUM 4.0 MMOL/L 07/15/2014 CHEM 14 4889937 PROT TOT 6.4 GM/DL 07/15/2014 CHEM 14 8383492 GLUCOSE 90 MG/DL 07/15/2014 CHEM 14 9954574 BICARB 30 MMOL/L 07/15/2014 CHEM 14 2035097 ANION GAP 6 MEQ/L 07/15/2014 GFR CALC 1066202 GFR AA >60 ML/MIN 07/15/2014 GFR CALC 8550608 GFR NON -AA >60 ML/MIN 07/15/2014 A1C HPLC 2195042 A1C HPLC 89357-3 5.6 % 07/15/2014 A1C HPLC 2700067 A1C HPLC 81790-7 6.0 % 04/13/2014 TSH 4648495 TSH 1.875 uIU/ML 04/12/2014 CHEM 14 2242868 AST 17 U/L 04/12/2014 CHEM 14 2610383 ALT 20 IU/L 04/12/2014 CHEM 14 2283180 BUN 14 MG/DL 04/12/2014 CHEM 14 9933384 ALBUMIN 4.2 GM/DL 04/12/2014 CHEM 14 7445878 CHLORIDE 104 MMOL/L 04/12/2014 CHEM 14 8815201 BILI TOT 0.3 MG/DL 04/12/2014 CHEM 14 5757696 ALK PHOS 80 U/L 04/12/2014 CHEM 14 1667418 SODIUM 141 MMOL/L 04/12/2014 CHEM 14 3162631 CREATINI NE 0.62 MG/DL 04/12/2014 CHEM 14 1947752 CALCIUM 9.4 MG/DL 04/12/2014 CHEM 14 7617313 POTASSIUM 3.5 MMOL/L 04/12/2014 CHEM 14 3640444 PROT TOT 6.5 GM/DL 04/12/2014 CHEM 14 6972943 GLUCOSE 89 MG/DL 04/12/2014 CHEM 14 1538368 BICARB 29 MMOL/L 04/12/2014 CHEM 14 7306065 ANION GAP 8 MEQ/L 04/12/2014 CBC 5783364 WBC 4.6 10e9/L 04/12/2014 CBC 5185747 RBC 4.52 10e12/L 04/12/2014 CBC 5776147 HGB 13.1 g/dL 04/12/2014 CBC 4150760 HCT DET 39.2 % 04/12/2014 CBC 2233179 MCV 86.7 fL 04/12/2014 CBC 3142884 MCH 29.0 pg 04/12/2014 CBC 8281303 MCHC 33.4 g/dL 04/12/2014 CBC 7506606 PLT 233 10e9/L 04/12/2014 CBC 9134395 MPV 9.8 fL 04/12/2014 CBC 5573358 AN % 59.5 % 04/12/2014 CBC 2482629 LY % 28.6 % 04/12/2014 CBC 6530092 MON % 10.0 % 04/12/2014 CBC 8412297 EOS % 1.5 % 04/12/2014 CBC 7796237 BASO % 0.4 % 04/12/2014 CBC 0215953 RDW 13.7 % 04/12/2014 CBC 5710643 ABS AN 2.74 10e9/L 04/12/2014 CBC 8113006 ABS LYMPH 1.32 10e9/L 04/12/2014 CBC 9963861 ABS MONO 0.46 10e9/L 04/12/2014 CBC 8741907 ABS EOS 0.07 10e9/L 04/12/2014 CBC 3173353 ABS BASO 0.02 10e9/L 04/12/2014 CBC 7623804 RDW-SD 42.6 fL 04/12/2014 LIPID GRP HDL TE ST 59 MG/DL 04/12/2014 LIPID GRP TRIG 177 MG/DL 04/12/2014 LIPID GRP TEST L DL 106 MG/DL 04/12/2014 LIPID GRP CHOL 200 MG/DL 04/12/2014 LIPID GRP RCHOL/ HDL 3.39 RATIO 04/12/2014 GFR CALC 0353796 GFR AA >60 ML/MIN 04/12/2014 GFR CALC 1444892 GFR NON -AA >60 ML/MIN 04/12/2014 GFR CALC 4587063 GFR AA >60 ML/MIN 08/24/2013 GFR CALC 4732919 GFR NON -AA >60 ML/MIN 08/24/2013 TSH 5381142 TSH 1.208 uIU/ML 08/24/2013 CBC 9670827 WBC 4.7 10e9/L 08/24/2013 CBC 7121391 RBC 4.33 10e12/L 08/24/2013 CBC 9444317 HGB 12.5 g/dL 08/24/2013 CBC 2178723 HCT DET 38.2 % 08/24/2013 CBC 3162911 MCV 88.2 fL 08/24/2013 CBC 0215531 MCH 28.9 pg 08/24/2013 CBC 0467294 MCHC 32.7 g/dL 08/24/2013 CBC 0448146 PLT 218 10e9/L 08/24/2013 CBC 3430728 MPV 10.4 fL 08/24/2013 CBC 8743712 AN % 61.9 % 08/24/2013 CBC 2197581 LY % 24.8 % 08/24/2013 CBC 0704005 MON % 10.3 % 08/24/2013 CBC 3407357 EOS % 2.1 % 08/24/2013 CBC 0947247 BASO % 0.9 % 08/24/2013 CBC 2212512 RDW 14.6 % 08/24/2013 CBC 3920918 ABS AN 2.91 10e9/L 08/24/2013 CBC 1414307 ABS LYMPH 1.17 10e9/L 08/24/2013 CBC 2050513 ABS MONO 0.48 10e9/L 08/24/2013 CBC 8261285 ABS EOS 0.10 10e9/L 08/24/2013 CBC 6145989 ABS BASO 0.04 10e9/L 08/24/2013 CBC 2634118 RDW-SD 46.7 fL 08/24/2013 CHEM 14 1060404 AST 13 U/L 08/24/2013 CHEM 14 6523485 ALT 15 IU/L 08/24/2013 CHEM 14 4568895 BUN 14 MG/DL 08/24/2013 CHEM 14 7758853 ALBUMIN 4.3 GM/DL 08/24/2013 CHEM 14 7558870 CHLORIDE 106 MMOL/L 08/24/2013 CHEM 14 1950154 BILI TOT 0.3 MG/DL 08/24/2013 CHEM 14 4449549 ALK PHOS 75 U/L 08/24/2013 CHEM 14 6851475 SODIUM 141 MMOL/L 08/24/2013 CHEM 14 0773401 CREATINI NE 0.56 MG/DL 08/24/2013 CHEM 14 9704966 CALCIUM 9.1 MG/DL 08/24/2013 CHEM 14 5037072 POTASSIUM 4.2 MMOL/L 08/24/2013 CHEM 14 4037347 PROT TOT 6.0 GM/DL 08/24/2013 CHEM 14 5326912 GLUCOSE 83 MG/DL 08/24/2013 CHEM 14 9705394 BICARB 28 MMOL/L 08/24/2013 CHEM 14 3595293 ANION GAP 7 MEQ/L 08/24/2013 LIPID GRP HDL TE ST 57 MG/DL 08/24/2013 LIPID GRP TRIG 183 MG/DL 08/24/2013 LIPID GRP TEST L DL 64 MG/DL 08/24/2013 LIPID GRP CHOL 158 MG/DL 08/24/2013 LIPID GRP RCHOL/ HDL 2.77 RATIO 08/24/2013 Review of Systems System Result Effective Dates Constitutional No recent illness 09/17/2017 Constitutional No [...] bilaterally 08/24/2013 None Full Exam - General 1995 [...] scar 12/01/2012 None Full Exam - General 1995 Musculoskeletal lower extremity Palpation - thigh: tenderness 12/01/2012 None Full Exam - General 1995 Musculoskeletal lower extremity Inspection - lower leg: [...] murmurs 08/18/2012 None Full Exam - General 1995 Psychiatric [...] accomodation 12/20/2011 None Full Exam - General 1995 Ears/Nose/Throat otoscopic exam External auditory canal: a [...] 01/22/2017 ADMIN PNEUMOCOCCAL V ACCINE SNOMED CT: 27695471 CPT-4: G0009 09/16/2016 Pneumococcal Polysac charide Vaccine, 23-Valent, Ad CPT-4: 90460 09/16/2016 THER/PROPH/DIAG INJ SC/IM CPT-4: 76040 04/04/2016 TRIAMCINOLONE ACET I [place] NOS CPT-4: J3301 04/04/2016 ADMIN INFLUENZA VIRU S VAC CPT-4: G0008 07/28/2015 FLU VACC 4 XIMENA 3 YRS PLUS IM Formatting Model/CDA Sections, Assigned to/Jen Cota SNOMED CT: 29761302 CPT-4: 47775Lmikqcd 07/28/2015 TRIAMCINOLONE ACET I [place] NOS CPT-4: J3301 06/12/2015 TRIAMCINOLONE ACET I [place] NOS CPT-4: J3301 05/15/2015 ADMIN INFLUENZA VIRU S VAC CPT-4: G0008 07/19/2014 FLU VAC NO PRSV 4 VA L 3 YRS+ Assigned to/Jen Cota CPT-4: 73928Irrgxsy 07/19/2014 TRIAMCINOLONE ACET I [place] NOS CPT-4: J3301 02/02/2014 ROUTINE VENIPUNCTURE CPT-4: 30689 08/24/2013 ADMIN INFLUENZA VIRU S VAC CPT-4: [...] CPT-4: J3301 01/23/2012 THER/PROPH/DIAG INJ SC/IM CPT-4: 08089 01/23/2012 REMOVE IMPACTED EAR WAX UNI CPT-4: 87351 01/02/2012 ROUTINE VENIPUNCTURE CPT-4: 46992 12/20/2011 Vital Signs Date Vital 09/17/2017 Blood Pressure 1: 150/82 Code: 8480-6 BMI: 33.6 Code: 52540-5 Heart Rate 1: 58 bpm Height: 5' SpO2: 98% Weight: 175 lbs 06/23/2017 Blood Pressure 1: 124/66 Code: 8480-6 Heart Rate 1: 65 bpm Height: 5' SpO2: 97% Weight: 05/13/2017 Blood Pressure 1: 128/80 Code: 8480-6 BMI: 32.8 Code: 57851-2 Heart Rate 1: 76 bpm Height: 5' SpO2: 95% Weight: 171 lbs 03/21/2017 Blood Pressure 1: 152/88 Code: 8480-6 Heart Rate 1: 70 bpm Height: SpO2: 98% Weight: 03/19/2017 Blood Pressure 1: 132/64 Code: 8480-6 BMI: 33.0 Code: 03258-9 Heart Rate 1: 64 bpm Height: 5' SpO2: 96% Weight: 172 lbs 01/22/2017 Blood Pressure 1: 120/68 Code: 8480-6 BMI: 33.4 Code: 50263-2 Heart Rate 1: 68 bpm Height: 5' SpO2: 96% Weight: 174 lbs 01/14/2017 Blood Pressure 1: 138/80 Code: 8480-6 BMI: 33.4 Code: 37998-1 Heart Rate 1: 69 bpm Height: 5' SpO2: 98% Weight: 174 lbs 09/23/2016 Blood Pressure 1: 138/70 Code: 8480-6 BMI: 33.6 Code: 18741-2 Heart Rate 1: 68 bpm Height: 5' SpO2: 98% Temperature: 36.4 (C ) / 97.5 (F) Weight: 175 lbs 09/16/2016 Blood Pressure 1: 124/74 Code: 8480-6 BMI: 33.6 Code: 99145-9 Heart Rate 1: 64 bpm Height: 5' SpO2: 97% Weight: 175 lbs 06/25/2016 Weigh t: 174 lbs 06/17/2016 Blood Pressure 1: 128/80 Code: 8480-6 BMI: 34.0 Code: 67760-2 Heart Rate 1: 76 bpm Height: 5' SpO2: 95% Weight: 177 lbs 04/03/2016 Blood Pressure 1: 138/72 Code: 8480-6 BMI: 34.2 Code: 94581-5 Heart Rate 1: 63 bpm Height: 5' SpO2: 96% Weight: 178 lbs 03/13/2016 Blood Pressure 1: 128/72 Code: 8480-6 BMI: 35.3 Code: 31048-9 Heart Rate 1: 71 bpm Height: 5' SpO2: 97% Weight: 184 lbs 01/30/2016 Blood Pressure 1: 134/72 Code: 8480-6 BMI: 35.2 Code: 02256-6 Heart Rate 1: 71 bpm Height: 5' SpO2: 96% Weight: 183 lbs 12/21/2015 Blood Pressure 1: 148/90 Code: 8480-6 BMI: 34.6 Code: 71165-4 Heart Rate 1: 89 bpm Height: 5' SpO2: 96% Weight: 180 lbs 10/09/2015 Blood Pressure 1: 124/76 Code: 8480-6 BMI: 34.6 Code: 60776-2 Heart Rate 1: 88 bpm Height: 5' SpO2: 96% Weight: 180 lbs 06/12/2015 Blood Pressure 1: 148/74 Code: 8480-6 BMI: 33.4 Code: 12733-8 Heart Rate 1: 70 bpm Height: 5' SpO2: 96% Weight: 174 lbs 06/05/2015 Blood Pressure 1: 142/82 Code: 8480-6 BMI: 33.2 Code: 02349-3 Heart Rate 1: 72 bpm Height: 5' Weight: 173 lbs 05/15/2015 Blood Pressure 1: 118/80 Code: 8480-6 BMI: 33.6 Code: 77417-7 Heart Rate 1: 82 bpm Height: 5' Weight: 175 lbs 02/06/2015 Blood Pressure 1: 122/76 Code: 8480-6 BMI: 34.6 Code: 61110-4 Heart Rate 1: 58 bpm Height: 5' Weight: 180 lbs 01/10/2015 Blood Pressure 1: 158/90 Code: 8480-6 Blood Pressure 2: 152/90 Code: 8480-6 BMI: 34.6 Code: 45807-1 Heart Rate 1: 68 bpm Height: 5' Weight: 180 lbs 07/19/2014 Blood Pressure 1: 142/78 Code: 8480-6 BMI: 33.6 Code: 38877-7 Heart Rate 1: 56 bpm Height: 5' Weight: 175 lbs 06/17/2014 Blood Pressure 1: 128/86 Code: 8480-6 Heart Rate 1: 66 bpm SpO2: 98% Weight: 172 lbs 04/19/2014 Blood Pressure 1: 152/82 Code: 8480-6 BMI: 32.5 Code: 97752-8 Heart Rate 1: 60 bpm Height: 5' Weight: 169 lbs 04/11/2014 Blood Pressure 1: 120/80 Code: 8480-6 BMI: 33.4 Code: 84805-6 Heart Rate 1: 64 bpm Height: 5' Weight: 174 lbs 03/10/2014 Blood Pressure 1: 136/64 Code: 8480-6 BMI: 32.7 Code: 33613-2 Heart Rate 1: 76 bpm Height: 5' Weight: 170 lbs 02/02/2014 Blood Pressure 1: 160/76 Code: 8480-6 BMI: 32.7 Code: 91366-6 Heart Rate 1: 64 bpm Height: 5' Weight: 170 lbs 10/25/2013 Blood Pressure 1: 164/82 Code: 8480-6 BMI: 31.9 Code: 22395-6 Heart Rate 1: 60 bpm Height: 5' Weight: 166 lbs 08/24/2013 Blood Pressure 1: 138/88 Code: 8480-6 Heart Rate 1: 80 bpm Weight: 07/26/2013 Blood Pressure 1: 154/70 Code: 8480-6 Heart Rate 1: 72 bpm Weight: 162 lbs 06/30/2013 Blood Pressure 1: 182/86 Code: 8480-6 Heart Rate 1: 80 bpm Weight: 06/24/2013 Blood Pressure 1: 148/68 Code: 8480-6 BMI: 31.3 Code: 66158-9 Heart Rate 1: 72 bpm Height: 5' [...] 1: 142/88 Code: 8480-6 BMI: 30.6 Code: 63201-9 Heart Rate 1: 64 bpm Height: 5' [...] 1: 180/96 Code: 8480-6 BMI: 30.5 Code: 42785-9 Heart Rate 1: 76 bpm Height: 5' Respiratory Rate: 16 bpm Weight: 159 lbs 02/19/2012 Blood Pressure 1: 150/70 Code: 8480-6 Blood Pressure 2: 160/78 Code: 8480-6 Heart Rate 1: 76 bpm Respiratory Rate: 16 bpm Weight: 158 lbs 01/23/2012 Blood Pressure 1: 140/84 Code: 8480-6 BMI: 30.3 Code: 68059-9 Heart Rate 1: 68 bpm Height: 5' Respiratory Rate: 16 bpm SpO2: 98% Temperature: 37.0 (C ) / 98.6 (F) Weight: 158 lbs 01/02/2012 Blood Pressure 1: 142/92 Code: 8480-6 BMI: 30.7 Code: 25074-5 Heart Rate 1: 72 bpm Height: 5' Respiratory Rate: 16 bpm Weight: 160 lbs 12/20/2011 Blood Pressure 1: 170/84 Code: 8480-6 BMI: 30.0 Code: 61151-4 Heart Rate 1: 70 bpm Height: 5' Respiratory Rate: 16 bpm Weight: 156 lbs Functional Status No Functional Status data History of Present Illness Symptom Name Status Resu lt Effective Date Notes hypertension Onset and Resolution ongoing 09/17/2017 None [...] 06/12/2015 None rash Location-Head/Neck on the right hinduism 06/12/2015 None rash Location-Head/Neck on the right [...] productive 01/23/2012 green/yellow cough Location in the [place] 01/23/2012 None cough Onset and Resolution [...] Encounters Encounter Performer Loca tion Codes Date ([id number]) 64119 EST. P ATIENT, LEVEL IV Diagnosis: Essential (primary) hypertension[ICD10: I10] Zoya Varela MD [facility] CPT-4: 78691 09/17/2017 ([id number]) 57709 EST. P ATIENT, LEVEL III Diagnosis: Allergic contact dermatitis due to plants, except food[ICD10: L23.7] Kacy Varela MD, [facility] CPT-4: 45977 06/23/2017 [id number]) 98907 EST. P ATIENT, LEVEL IV Diagnosis: Essential (primary) hypertension[ICD10: I10] Diagnosis: Mixed hyperlipidemia[ICD10: E78.2] Zoya Varela MD, [facility] CPT- 4: 75979 05/13/2017 ([id number]) 84667 EST. P ATIENT, LEVEL III Diagnosis: Allergic contact dermatitis due to plants, except food[ICD10: L23.7] Kacy Varela MD, [facility] CPT-4: 42537 03/21/2017 76323 EST. PATIENT, LEVEL III Diagnosis: Bitten or stung by nonvenomous insect and other nonvenomous arthropods, initial encounter[ICD10: W57.XXXA] Diagnosis: Cellulitis of left lower limb[ICD10: L03.116] Laura Varela MD, [facility] CPT-4: 83784 03/19/2017 ([id number]) 34457 EST. P ATIENT, LEVEL IV Diagnosis: Type 2 diabetes mellitus without complications[ICD10: E11.9] Diagnosis: Essential (primary) hypertension[ICD10: I10] Diagnosis: Other specified epidermal thickening[ICD10: L85.8] Zoya Varela MD, [facility] CPT-4: 00215 01/14/2017 52443 EST. PATIENT, LEVEL III Diagnosis: Glossodynia[ICD10: K14.6] Kacy Varela MD, [facility] CPT- 4: 49246 09/23/2016 ([id number]) 59063 EST. P ATIENT, LEVEL IV Diagnosis: Encounter for screening mammogram for malignant neoplasm of breast[ICD10: Z12.31] Diagnosis: Encounter for immunization[ICD10: Z23] Zoya Varela MD, [facility] CPT-4: 81076 09/16/2016 ([id number]) 28268 EST. P ATIENT, LEVEL III Diagnosis: Diseases of lips[ICD10: K13.0] Diagnosis: Allergic rhinitis due to pollen[ICD10: J30.1] Kacy Varela MD, [facility] CPT-4: 15907 06/25/2016 ([id number]) 64476 EST. P ATIENT, LEVEL III Diagnosis: Essential (primary) hypertension[ICD10: I10] Kacy Varela MD, [facility] CPT-4: 76361 06/17/2016 81863 EST. PATIENT, LEVEL IV Diagnosis: Other acute sinusitis[ICD10: J01.80] Diagnosis: Acute laryngopharyngitis[ICD10: J06.0] Diagnosis: Other allergic rhinitis[ICD10: J30.89] Laura Varela MD, [facility] CPT-4: 73908 04/03/2016 ([id number]) 42306 EST. P ATIENT, LEVEL IV Diagnosis: Essential (primary) hypertension[ICD10: I10] Diagnosis: Localized edema[ICD10: R60.0] Diagnosis: Polyneuropathy, unspecified[ICD10: G62.9] Zoya Varela MD, [facility] CPT-4: 80834 03/13/2016 ([id number]) 87438 EST. P ATIENT, LEVEL IV Diagnosis: Essential (primary) hypertension[ICD10: I10] Diagnosis: Localized edema[ICD10: R60.0] Diagnosis: Type 2 diabetes mellitus without complications[ICD10: E11.9] Zoya Varela MD, [facility] CPT-4: 67327 01/30/2016 93898 EST. PATIENT, LEVEL IV Diagnosis: Localized edema[ICD10: R60.0] Laura Varela MD, [facility] CPT-4: 82548 12/21/2015 ([id number]) 64618 EST. P ATIENT, LEVEL III Diagnosis: Essential (primary) hypertension[ICD10: I10] Diagnosis: Allergic rhinitis due to pollen[ICD10: J30.1] Diagnosis: Cervicalgia[ICD10: M54.2] Kacy Varela MD, [facility] CPT- 4: 59608 10/09/2015 29799 EST. PATIENT, LEVEL II Diagnosis: Contact dermatitis[ICD9: 692.9] Kacy Varela MD, [facility] CPT- 4: 65756 06/12/2015 ([id number]) 42201 EST. P ATIENT, LEVEL III Diagnosis: ESSENTIAL HYPERTENSION[ICD9: 401.9] Diagnosis: DIABETES TYPE II[ICD9: 250.00] Diagnosis: Anxiety[ICD9: 300.00] Kacy Varela MD, [facility] CPT-4: 35728 06/05/2015 ([id number]) 19746 EST. P ATIENT, LEVEL IV Diagnosis: Anxiety[ICD9: 300.00] Diagnosis: ALLERGIC RHINITIS[ICD9: 477.9] Diagnosis: ESOPHAGEAL REFLUX[ICD9: 530.81] Kacy Varela MD, [facility] CPT- 4: 25983 05/15/2015 ([id number]) 21923 EST. P ATIENT, LEVEL III Diagnosis: ESSENTIAL HYPERTENSION[ICD9: 401.9] Zoya Varela MD, [facility] CPT- 4: 65710 02/06/2015 ([id number]) 00397 EST. P ATIENT, LEVEL IV Diagnosis: ESSENTIAL HYPERTENSION[ICD9: 401.9] Diagnosis: EDEMA[ICD9: 782.3] Diagnosis: DIABETES TYPE II[ICD9: 250.00] Zoya Varela MD, [facility] CPT-4: 79817 01/10/2015 ([id number]) 78496 EST. P ATIENT, LEVEL IV Diagnosis: ESSENTIAL HYPERTENSION[ICD9: 401.9] Diagnosis: DIABETES TYPE II[ICD9: 250.00] Zoya Varela MD, [facility] CPT-4: 32119 07/19/2014 ([id number]) 27202 EST. P ATIENT, LEVEL III Diagnosis: Left ankle pain[ICD9: 719.47] Kacy Varela MD, [facility] CPT- 4: 25388 06/17/2014 ([id number]) 86380 EST. P ATIENT, LEVEL III Diagnosis: ESSENTIAL HYPERTENSION[ICD9: 401.9] Diagnosis: Elevated blood sugar[ICD9: 790.29] Zoya Varela MD, [facility] CPT- 4: 47197 04/19/2014 ([id number]) 80563 EST. P ATIENT, LEVEL IV Diagnosis: ESSENTIAL HYPERTENSION[SNOMED: 68239616] Diagnosis: ESOPHAGEAL REFLUX[ICD9: 530.81] [facility] CPT-4: 85294 04/11/2014 ([id number]) 87061 EST. P ATIENT, LEVEL IV Diagnosis: ALLERGIC RHINITIS[ICD9: 477.9] Diagnosis: Anxiety[ICD9: 300.00] Diagnosis: Dyspnea[ICD9: 786.09] Diagnosis: ESOPHAGEAL REFLUX[ICD9: 530.81] [facility] CPT- 4: 79565 03/10/2014 ([id number]) 92940 EST. P ATIENT, LEVEL III Diagnosis: ALLERGIC RHINITIS[ICD9: 477.9] Diagnosis: ESSENTIAL HYPERTENSION[SNOMED: 44084153] Kacy Varela MD, [facility] CPT-4: 37973 02/02/2014 ([id number]) 19309 EST. P ATIENT, LEVEL III Diagnosis: ESSENTIAL HYPERTENSION[SNOMED: 72713437] Diagnosis: Skin irritation[ICD9: 709.9] Zoya Varela MD, [facility] CPT-4: 13543 10/25/2013 ([id number]) 59618 EST. P ATIENT, LEVEL III Diagnosis: HYPERLIPIDEMIA[ICD9: 272.4] Diagnosis: ESSENTIAL HYPERTENSION[SNOMED: 32266634] Diagnosis: EDEMA[ICD9: 782.3] Diagnosis: Encounter for long-term (current) use of other medications[ICD9: V58.69] Zoya Varela MD, [facility] CPT-4: 89497 08/24/2013 ([id number]) 15068 EST. P ATIENT, LEVEL III Diagnosis: ESSENTIAL HYPERTENSION[SNOMED: 98669788] Zoya Varela MD, [facility] CPT-4: 04554 07/26/2013 ([id number]) 70805 EST. P ATIENT, LEVEL III Diagnosis: ESSENTIAL HYPERTENSION[SNOMED: 66817372] Zoya Varela MD, [facility] CPT-4: 08009 06/30/2013 ([id number]) 17983 EST. P ATIENT, LEVEL III Diagnosis: ESSENTIAL HYPERTENSION[SNOMED: 29924409] Zoya Varela MD, [facility] CPT-4: 24425 06/24/2013 ([id number]) 60586 EST. P ATIENT, LEVEL IV Diagnosis: ESSENTIAL HYPERTENSION[SNOMED: 74762298] Diagnosis: Leg pain[ICD9: 729.5] Diagnosis: Leg swelling[ICD9: 729.81] Zoya Varela MD, [facility] CPT-4: 29628 12/01/2012 ([id number]) 44707 EST. P ATIENT, LEVEL III Diagnosis: Shingles[ICD9: 053.9] Zoya Varela MD, [facility] CPT-4: 86704 10/19/2012 ([id number]) 78750 EST. P ATIENT, LEVEL IV Diagnosis: EDEMA[ICD9: 782.3] Diagnosis: ESSENTIAL HYPERTENSION[SNOMED: 65512303] Zoya Varela MD, [facility] CPT-4: 18846 10/07/2012 ([id number]) 24308 EST. P ATIENT, LEVEL IV Diagnosis: ESSENTIAL HYPERTENSION[SNOMED: 83486760] Diagnosis: EDEMA[ICD9: 782.3] Diagnosis: Irritable bowel disease[ICD9: 564.1] Zoya Varela MD, [facility] CPT-4: 45283 2012 ([id number]) 75819 EST. P ATIENT, LEVEL III Diagnosis: ESSENTIAL HYPERTENSION[SNOMED: 01396532] Zoya Varela MD, C CPT-4: 55048 08/18/2012 ([id number]) 34118 EST. P ATIENT, LEVEL III Diagnosis: ESSENTIAL HYPERTENSION[SNOMED: 65646405] Zoya Varela MD, C CPT-4: 11286 08/04/2012 ([id number]) 58780 EST. P ATIENT, LEVEL IV Diagnosis: ESSENTIAL HYPERTENSION[SNOMED: 64513571] Diagnosis: Lumbago[ICD9: 724.2] Diagnosis: HYPERLIPIDEMIA[ICD9: 272.4] Zoya Varela MD, [facility] CPT-4: 17392 07/01/2012 ([id number]) 35168 EST. P ATIENT, LEVEL III Diagnosis: ESSENTIAL HYPERTENSION[SNOMED: 94763207] Zoya Varela MD, C CPT-4: 72580 05/20/2012 ([id number]) 21759 EST. P ATIENT, LEVEL IV Diagnosis: ESSENTIAL HYPERTENSION[SNOMED: 09992867] Diagnosis: Hot flash, menopausal[ICD9: 627.2] Zoya Varela MD, [facility] CPT- 4: 42666 04/20/2012 87806 EST. PATIENT, LEVEL IV Diagnosis: SPASM OF MUSCLE[ICD9: 728.85] Diagnosis: Back pain[ICD9: 724.5] Diagnosis: ESSENTIAL HYPERTENSION[SNOMED: 32342577] Zoya Varela MD, C CPT-4: 69955 03/10/2012 ([id number]) 20148 EST. P ATIENT, LEVEL IV Diagnosis: COUGH[ICD9: 786.2] Diagnosis: Allergic rhinitis[ICD9: 477.9] Diagnosis: Malignant reactive hypertension[ICD9: 401.0] Zoya Varela MD, C CPT-4: 88340 02/25/2012 ([id number]) 90664 EST. P ATIENT, LEVEL III Diagnosis: ESSENTIAL HYPERTENSION[SNOMED: 12249070] Zoya Varela MD, C CPT-4: 95755 02/19/2012 81132 EST. PATIENT, LEVEL IV Diagnosis: ESSENTIAL HYPERTENSION[SNOMED: 77494065] Diagnosis: Cough[ICD9: 786.2] Kacy Varela MD, [facility] CPT-4: 90885 01/23/2012 ([id number]) 43541 EST. P ATIENT, LEVEL IV Diagnosis: HYPERLIPIDEMIA[ICD9: 272.4] Diagnosis: ESSENTIAL HYPERTENSION[SNOMED: 69139081] Zoya Varela MD, C CPT-4: 30145 01/02/2012 OFFICE VISIT, NEW - LEVEL 4 Diagnosis: ESSENTIAL HYPERTENSION[SNOMED: 38942305] Diagnosis: HYPERLIPIDEMIA[ICD9: 272.4] Diagnosis: IMPACTED CERUMEN[ICD9: 380.4] Diagnosis: Muscle spasm[ICD9: 728.85] Diagnosis: CHRONIC TENSION HEADACHE[ICD9: 339.12] Diagnosis: Neck pain, chronic[ICD9: 723.1] Diagnosis: Change in skin mole[ICD9: 216.9] Zoya Varela MD, [facility] CPT-4: 54901 12/20/2011 Plan of Care Planned Activity Notes C odes Status Date Appointment: Zoya Varela WPtel: [address] [place], [place] [phone] (15 min) Moderate 09/17/2017 Patient Education: Patient Medication Summary Completed 09/17/2017 Patient Education: Obesity Completed 09/17/2017 Patient Education: Hypertension Completed 09/17/2017 Care Plan: SCREENINGMAMMOGRAPHYDIGITAL LOINC : 16875-5 Pending 09/17/2017 Appointment: [phone] [place] (15 min) Moderate 06/23/2017 Patient Education: Patient Medication Summary Completed 06/23/2017 App[facility]ment: [facility] [phone] [facility] (15 min) Moderate 05/13/2017 Patient Education: Patient Medication Summary Completed 05/13/2017 Patient Education: Obesity Completed 05/13/2017 Patient Education: Hypertension Completed 05/13/2017 App[facility]ment: [facility] [phone] [phone] [place] (15 min) Moderate 03/21/2017 Patient Education: Patient Medication Summary Completed 03/21/2017 Appointment: [facility] [phone] [facility] (15 min) Moderate 03/19/2017 Patient Education: Patient Medication Summary Completed 03/19/2017 Patient Education: Obesity Completed 03/19/2017 Appointment: [facility] [phone] [facility] [place] M[facility] - Annual Wellness Visit 01/22/2017 Appointment: Nurse Visit 01/22/2017 Patient Education: Patient Medication Summary Completed 01/22/2017 App[facility]ment: [facility] [phone] [facility] (15 min) Moderate 01/14/2017 Patient Education: Patient Medication Summary Completed 01/14/2017 Patient Education: Obesity Completed 01/14/2017 Patient Education: Hypertension Completed 01/14/2017 Appointment: [facility] [phone] [phone] [place] (15 min) Moderate 09/23/2016 Patient Education: Patient Medication Summary Completed 09/23/2016 Patient Education: Obesity Completed 09/23/2016 Appointment: [facility] [phone] [facility] [place] (15 min) Moderate 09/16/2016 Patient Education: Patient Medication Summary Completed 09/16/2016 Patient Education: Obesity Completed 09/16/2016 Care Plan: SCREENINGMAMMOGRAPHYDIGITAL [facility] : 08766-9 Pending 09/16/2016 Appointment: Kacy Moses WPtel: [phone] [phone] [place] (15 min) Moderate 06/25/2016 Patient Education: Patient Medication Summary Completed 06/25/2016 Appointment: (15 min) Moderate 06/17/2016 Patient Education: Patient Medication Summary Completed 06/17/2016 Patient Education: Obesity Completed 06/17/2016 Appointment: Injection 04/04/2016 Patient Education: Patient Medication Summary Completed 04/04/2016 Appointment: Kacy Moses WPtel: [phone] [place] (30 min) Complex 04/03/2016 Patient Education: Patient Medication Summary Completed 04/03/2016 Patient Education: Obesity Completed 04/03/2016 Patient Education: Patient Medication Summary Completed 03/13/2016 Patient Education: Obesity Completed 03/13/2016 Patient Education: Hypertension Completed 03/13/2016 Appointment: [facility] [phone] [facility] [place] (15 min) Moderate 02/28/2016 Appointment: Zoya Varela WPtel: [facility] [place] (15 min) Moderate 02/01/2016 Appointment: Zoya Varela WPtel: [facility] [place] (15 min) Moderate 01/30/2016 Patient Education: Patient Medication Summary Completed 01/30/2016 Patient Education: Obesity Completed 01/30/2016 Patient Education: Hypertension Completed 01/30/2016 Care Plan: BMI Above normal followup TAD F-MGMT EDUC & TRAIN 1 PT Ordered 01/30/2016 Appointment: (30 min) Complex 01/09/2016 Patient Education: Patient Medication Summary Completed 12/21/2015 Appointment: (30 min) Complex 10/09/2015 Patient Education: Patient Medication Summary Completed 10/09/2015 Patient Education: Hypertension Completed 10/09/2015 Patient Education: .Cervicalgia Neck Pain Completed 10/09/2015 Appointment: Injection 07/28/2015 Patient Education: Patient Medication Summary Completed 07/28/2015 Appointment: (15 min) Moderate 06/12/2015 Patient Education: Patient Medication Summary Completed 06/12/2015 Appointment: (15 min) Moderate 06/05/2015 Patient Education: Patient Medication Summary Completed 06/05/2015 Patient Education: Hypertension Completed 06/05/2015 Appointment: (30 min) Complex 05/16/2015 Patient Education: Patient Medication Summary Completed 05/15/2015 Appointment: Zoya Varela WPtel: [address] [place], [place] [phone] Follow up 02/06/2015 Patient Education: Patient Medication Summary Completed 02/06/2015 Patient Education: Hypertension Completed 02/06/2015 Appointment: Zoya Varela WPtel: [address] [place], [place] [phone] Sick 01/10/2015 Patient Education: Patient Medication Summary Completed 01/10/2015 Patient Education: Hypertension Completed 01/10/2015 Appointment: Zoya Varela WPtel: [address] [place], [place] [phone] Follow up 07/19/2014 Patient Education: Patient Medication Summary Completed 07/19/2014 Patient Education: Hypertension Completed 07/19/2014 Care Plan: SCREENINGMAMMOGRAPHYDIGITAL LOINC : 02420-9 Ordered 07/19/2014 Appointment: Sick 06/17/2014 Patient Education: Patient Medication Summary Completed 06/17/2014 Appointment: Kacy Moses WPtel: [address] [place], [place] [phone] Diabetic education 04/19/2014 Patient Education: Patient Medication Summary Completed 04/19/2014 Patient Education: Hypertension Completed 04/19/2014 Appointment: Zoya Varela WPtel: [address] [place], [place] [phone] Follow up 04/11/2014 Patient Education: Patient Medication Summary Completed 04/11/2014 Patient Education: Hypertension Completed 04/11/2014 Appointment: Zoya Varela WPtel: [address] [place], [place] [phone] Other 03/10/2014 Patient Education: Patient Medication Summary Completed 03/10/2014 Appointment: Kacy Moses WPtel: [phone] Other 02/02/2014 Patient Education: Patient Medication Summary Completed 02/02/2014 Patient Education: Hypertension Completed 02/02/2014 Appointment: Zoya Varela WPtel: [address] [place], [place] [phone] Follow up 10/25/2013 Patient Education: Patient Medication Summary Completed 10/25/2013 Patient Education: Hypertension Completed 10/25/2013 Appointment: Zoya Varela WPtel: [address] [place] [phone] Follow up 08/24/2013 Patient Education: Patient Medication Summary Completed 08/24/2013 Patient Education: Hypertension Completed 08/24/2013 Appointment: Zoya Varela WPtel: [address] [place] [place] [phone] Follow up 07/26/2013 Patient Education: Patient Medication Summary Completed 07/26/2013 Patient Education: Hypertension Completed 07/26/2013 Appointment: Zoya Varela WPtel: [address] [place] [phone] [place] Other 06/30/2013 Patient Education: Patient Medication Summary Completed 06/30/2013 Patient Education: Hypertension Completed 06/30/2013 Appointment: Kacy Moses WPtel: [address] [place] [phone] Follow up 06/24/2013 Patient Education: Patient Medication Summary Completed 06/24/2013 Patient Education: Hypertension Completed 06/24/2013 Appointment: Zoya Varela WPtel: [address] [place] [phone] Other 03/23/2013 Appointment: Zoya Varela WPtel: [address] [place], [place] [phone] Follow up 12/01/2012 Patient Education: Patient Medication Summary Completed 12/01/2012 Patient Education: Hypertension Completed 12/01/2012 Appointment: Zoya Varela WPtel: [facility] Follow up 10/20/2012 Appointment: Zoya Varela WPtel: [address] [place], [place] [phone] Other 10/19/2012 Patient Education: Patient Medication Summary Completed 10/19/2012 Appointment: Kacy Moses WPtel: [phone] Other 10/07/2012 Patient Education: Hypertension Completed 10/07/2012 Patient Education: Patient Medication Summary Completed 10/07/2012 Appointment: Zoya Varela WPtel: [address] [place], [place] [phone] Other 2012 Patient Education: Patient Medication Summary Completed 2012 Patient Education: High Blood Pressure: Essential Hypertension Completed 2012 Appointment: Zoya Varela WPtel: [address] [place], [place] [phone] Follow up 08/18/2012 Patient Education: Patient Medication Summary Completed 08/18/2012 Patient Education: High Blood Pressure: Essential Hypertension Completed 08/18/2012 Appointment: Zoya Varela WPtel: [address] [place], [place] [phone] Follow up 08/04/2012 Patient Education: Patient Medication Summary Completed 08/04/2012 Patient Education: clonidine 0.1 mg/24 h r Weekly Transderm Patch Monograph Completed 08/04/2012 Patient Education: High Blood Pressure: Essential Hypertension Completed 08/04/2012 Appointment: Zoya Varela WPtel: [address] [place] [id number] Other 07/01/2012 Patient Education: Patient Medication Summary Completed 07/01/2012 Patient Education: High Blood Pressure: Essential Hypertension Completed 07/01/2012 Appointment: Zoya Varela WPtel: [address] [place], [place] [phone] Follow up 05/20/2012 Patient Education: Patient Medication Summary Completed 05/20/2012 Patient Education: High Blood Pressure: Essential Hypertension Completed 05/20/2012 Appointment: Zoya Varela WPtel: [facility] Other 05/11/2012 Appointment: Zoya Varela WPtel: [address] [place], [place] [phone] Follow up 04/20/2012 Patient Education: Patient Medication Summary Completed 04/20/2012 Patient Education: High Blood Pressure: Essential Hypertension Completed 04/20/2012 Appointment: Zoya Varela WPtel: [address] [place] [phone] Other 03/10/2012 Patient Education: Patient Medication Summary Completed 03/10/2012 Patient Education: High Blood Pressure: Essential Hypertension Completed 03/10/2012 Appointment: Zoya Varela WPtel: [address] [place], [place] [phone] Other 02/25/2012 Patient Education: Patient Medication Summary Completed 02/25/2012 Patient Education: High Blood Pressure: Essential Hypertension Completed 02/25/2012 Appointment: Zoya Varela WPtel: [address] [place] [id number] Other 02/19/2012 Patient Education: Patient Medication Summary Completed 02/19/2012 Patient Education: High Blood Pressure: Essential Hypertension Completed 02/19/2012 Appointment: Kacy Moses WPtel: [phone] Other 01/23/2012 Patient Education: Patient Medication Summary Completed 01/23/2012 Patient Education: High Blood Pressure: Essential Hypertension Completed 01/23/2012 Appointment: Zoya Varela WPtel: [address] [place] [phone] Other 01/02/2012 Patient Education: Patient Medication Summary Completed 01/02/2012 Patient Education: High Blood Pressure: Essential Hypertension Completed 01/02/2012 Appointment: Zoya Varela WPtel: [address] [place], [place] [phone] New Patient 12/20/2011 Patient Education: Patient Medication Summary Completed 12/20/2011 Patient Education: High Blood Pressure: Essential Hypertension Completed 12/20/2011 Instructions No Instructions
--- OUTSIDE RECORDS SUMMARY | 2020-05-26 03:36 | XMS REPORT | CCD ---
Author Author Natali Varela Organization [facility] Address [address] [place] [address] Phone Care Team Providers Care Attendant [employer] Name Role Phone PP Unavailable CCM Unavailable Summary Purpose Interface Exchange Insurance Providers Payer name Policy type / Coverage type Covered republican ID Effective Begin Date Effective End Date WPS Medicare Part B Medicare Part B [id number] Unknown [employer] Medicare Part B [id number] Unknown Family history Mother Diagnosis Age At Onset Liver Failure Unknown Diabetes mellitus Type 2 Unknown Hyperlipidemia Unknown Hypertension Unknown Cancer Unknown Arthritis Unknown Father Diagnosis Age At Onset Liver Failure Unknown Cancer Unknown Social History Social History Element Codes Description Effective Dates Marital status Unknown M arried 12/12/2011 Number of children Unknown 3 12/12/[address]: 7822774 Former smoker quit in 199212/12/2011 Allergies, Adverse [...] Instructions cyclobenzaprine 10 m g tablet RxNorm: 890172 TAKE ONE TABLET BY MO [facility] EVERY 8 HOURS NEEDED 11/21/2017 02/08/2018 Active metoprolol tartrate 100 mg tablet RxNorm: 672942 TAKE ONE AND ONE-HALF (1 1/2) TABLETS BY MOUTH EVERY MORNING AND TAKE TWO TABLETS BY MOUTH EVERY EVENING 10/28/2017 02/24/2018 Ac tive tramadol 50 mg tablet RxNorm: 504707 1-2 Tablet(s) PO Q8 as needed 10/28/2017 01/24/2018 Ac tive cyclobenzaprine 10 m g tablet RxNorm: 679206 TAKE ONE TABLET BY MO [facility] EVERY 8 HOURS NEEDED 08/27/2017 10/25/2017 Inactive Xanax 0.25 mg tablet RxNorm: 149737 1/2-1 Tablet(s) PO QDAY PRN 08/04/2017 11/01/2017 Inactive cyclobenzaprine 10 m g tablet RxNorm: 789761 TAKE ONE TABLET BY [facility] EVERY 8 HOURS NEEDED 07/28/2017 08/16/2017 Inactive metoprolol tartrate 100 mg tablet RxNorm: 186608 TAKE ONE AND ONE-HALF (1 & 1/2) TABLET BY MOUTH EVERY MORNING AND TAKE TWO TABLETS BY MOUTH EVERY EVENING 07/28/2017 10/25/2017 In active cyclobenzaprine 10 m g tablet RxNorm: 928656 TAKE ONE TABLET BY MO [facility] EVERY 8 HOURS NEEDED 06/30/2017 07/19/2017 Inactive prednisone 10 mg tab lets in a dose pack RxNorm: 924172 1 Tablet(s) PO UD 06/23/2017 06/28/2017 In active 6-5-4-3-2-1 mupirocin 2 % topica l ointment RxNorm: 674684 1 Application TOP BID 06/23/2017 07/02/2017 Inactive Kenalog 40 mg/mL sylvia pension for injection RxNorm: 7750981 Milliliter(s) Inj 06/23/2017 06/23/2017 In active cyclobenzaprine 10 m g tablet RxNorm: 530623 TAKE ONE TABLET BY MO [facility] EVERY 8 HOURS NEEDED 06/09/2017 06/28/2017 Inactive meclizine 25 mg tablet RxNorm: 041790 1 Tablet(s) PO Q6 PRN as needed 1/2 - 1 pill every 6 hours as needed for vertigo 06/03/2017 07/14/2017 Inactive atorvastatin 20 mg t ablet RxNorm: 132812 TAKE ONE TABLET BY MO [facility] DAILY 05/30/2017 11/25/2017 Ac tive amlodipine 5 mg tablet RxNorm: 918972 TAKE ONE TABLET BY MOUTH DAILY 05/15/2017 10/31/2019 Ac tive cyclobenzaprine 10 m g tablet RxNorm: 940454 TAKE ONE TABLET BY MO [facility] EVERY 8 HOURS NEEDED 05/07/2017 05/26/2017 Inactive tramadol 50 mg tablet RxNorm: 573331 1-2 Tablet(s) PO Q8 as needed 04/07/2017 07/04/2017 In active cyclobenzaprine 10 m g tablet RxNorm: 680179 TAKE ONE TABLET BY MO [facility] EVERY 8 HOURS NEEDED 04/07/2017 04/26/2017 Inactive Xanax 0.25 mg tablet RxNorm: 974026 1/2-1 Tablet(s) PO QDAY PRN 04/04/2017 06/02/2017 Inactive metoprolol tartrate 100 mg tablet RxNorm: 113179 TAKE ONE AND ONE-HALF (1 & 1/2) TABLET BY MOUTH EVERY MORNING AND TAKE TWO TABLETS BY MOUTH EVERY EVENING 03/28/2017 07/25/2017 In active prednisone 10 mg tab lets in a dose pack RxNorm: 700030 1 Tablet(s) PO UD 03/21/2017 03/26/2017 In active 6-5-4-3-2-1 Kenalog 40 mg/mL sylvia pension for injection RxNorm: 9270821 2 Milliliter(s) Inj 03/21/2017 03/21/2017 In active doxycycline hyclate 100 mg capsule RxNorm: 1935558 1 Capsule(s) PO BID 03/19/2017 03/28/2017 In active cyclobenzaprine 10 m g tablet RxNorm: 958300 TAKE ONE TABLET BY MO [facility] EVERY 8 HOURS NEEDED 02/25/2017 03/16/2017 Inactive triamcinolone aceton pineda 0.1 % topical ointment RxNorm: 0258095 1 Application TOP TI D 02/21/2017 02/20/2017 Inactive triamcinolone aceton pineda 0.1 % topical ointment RxNorm: 0636936 1 Application TOP TI D 02/21/2017 03/02/2017 Inactive doxazosin 4 mg tablet RxNorm: 716185 TAKE ONE AND ONE-HALF (1 & 1/2) TABLET B Y MOUTH BY MOUTH TWO TIMES A DAY 02/14/2017 01/09/2018 Active cyclobenzaprine 10 m g tablet RxNorm: 648760 TAKE ONE TABLET BY MO [facility] EVERY 8 HOURS NEEDED 01/27/2017 02/15/2017 Inactive ammonium lactate 12 % topical cream RxNorm: 067135 1 Application TOP BID 01/14/2017 02/12/2017 In active dispense one bottle of the cream potassium chloride E R 10 mEq tablet,extended release RxNorm: 135856 1 Tablet(s) PO PRN as needed with lasix 11/13/2016 No Stop Date Active prn swelling furosemide 20 mg tablet RxNorm: 804484 1 Tablet(s) PO daily as needed edema 11/13/2016 01/11/2017 In active metoprolol tartrate 100 mg tablet RxNorm: 538809 TAKE ONE AND ONE-HALF (1 & 1/2) TABLET BY MOUTH EVERY MORNING AND TAKE TWO TABLETS BY MOUTH EVERY EVENING 11/01/2016 03/27/2017 In active atorvastatin 20 mg t ablet RxNorm: 298333 TAKE ONE TABLET BY MO [facility] DAILY 10/31/2016 04/28/2017 In active cyclobenzaprine 10 m g tablet RxNorm: 873670 TAKE ONE TABLET BY MO [facility] EVERY 8 HOURS NEEDED 10/25/2016 12/03/2016 Inactive Lyrica 25 mg capsule RxNorm: 650136 1 Tablet(s) PO BID 09/23/2016 01/13/2017 Inactive Lyrica 50 mg capsule RxNorm: 064941 1 Capsule(s) PO BID 09/16/2016 01/13/2017 Inactive amlodipine 5 mg tablet RxNorm: 541468 Tablet(s) TAKE ONE TABLET BY MOUTH DAILY 08/28/2016 05/14/2017 In active cyclobenzaprine 10 m g tablet RxNorm: 448556 TAKE ONE TABLET BY [facility] EVERY 8 HOURS NEEDED 08/05/2016 09/13/2016 Inactive Xanax 0.25 mg tablet RxNorm: 749506 1/2-1 Tablet(s) PO QDAY PRN 07/16/2016 04/03/2017 Inactive amlodipine 5 mg tablet RxNorm: 653039 TAKE ONE TABLET BY MOUTH DAILY 06/28/2016 08/26/2016 In active metoprolol tartrate 100 mg tablet RxNorm: 483227 Tablet(s) TAKE ONE AN D ONE-HALF (1 & 1/2) TABLET BY MOUTH EVERY MORNING AND TAKE TWO TABLETS BY MOUTH EVERY EVENING 05/02/2016 05/02/2016 Inactive metoprolol tartrate 100 mg tablet RxNorm: 326536 Tablet(s) PO TAKE ONE AND ONE-HALF (1 & 1/2) TABLET BY MOUTH EVERY MORNING AND TAKE TWO TABLETS BY MOUTH EVERY EVENING 05/02/2016 05/01/2016 Inactive metoprolol tartrate 100 mg tablet RxNorm: 426117 Tablet(s) PO TAKE ONE AND ONE-HALF (1 & 1/2) TABLET BY MOUTH EVERY MORNING AND TAKE TWO TABLETS BY MOUTH EVERY EVENING 05/02/2016 10/28/2016 Inactive atorvastatin 20 mg t ablet RxNorm: 558012 TAKE ONE TABLET BY [facility] DAILY 04/25/2016 10/21/2016 In active tramadol 50 mg tablet RxNorm: 793723 1-2 Tablet(s) PO Q8 as needed 04/25/2016 10/27/2017 In active cyclobenzaprine 10 m g tablet RxNorm: 281644 Tablet(s) PO TAKE ONE TABLET BY MOUTH EVERY 8 HOURS NEEDED 04/18/2016 06/16/2016 Inactive Kenalog 40 mg/mL sylvia pension for injection RxNorm: 7054892 1 Milliliter(s) Inj 04/04/2016 04/04/2016 In active Phenergan with Codei ne Syrup RxNorm: PO 04/03/2016 No Stop Date Active Zithromax Z-Kush 250 mg tablet RxNorm: 326524 1 Tablet(s) PO UD 04/03/2016 04/07/2016 Inactive 2 tabs on day 1 then 1 tab daily on days 2-5 amlodipine 5 mg tablet RxNorm: 837852 TAKE ONE TABLET BY MOUTH DAILY 03/27/2016 06/24/2016 In active Flexeril 10 mg tablet RxNorm: 505822 TAKE ONE TABLET BY MOUTH EVERY 8 HOURS A S NEEDED 03/14/2016 04/02/2016 Inactive Vitamin B-12 ER 2,00 0 mcg tablet,extended release RxNorm: 442275 1 Tablet(s) PO daily 03/13/2016 No Stop Date Active Vitamin B-12 ER 2,00 0 mcg tablet,extended release RxNorm: 023203 1 Tablet(s) PO daily 03/13/2016 No Stop Date Active gabapentin 100 mg ca psule RxNorm: 290289 1 Capsule(s) PO BID 03/13/2016 09/15/2016 Inactive Flexeril 10 mg tablet RxNorm: 717611 Tablet(s) TAKE ONE TABLET BY MOUTH EVERY 8 HOURS NEEDED 02/08/2016 02/27/2016 Inactive Xanax 0.25 mg tablet RxNorm: 300271 1/2-1 Tablet(s) PO QDAY PRN 02/08/2016 07/15/2016 Inactive amlodipine 5 mg tablet RxNorm: 815384 1 Tablet(s) PO daily 02/06/2016 03/26/2016 Inactive furosemide 20 mg tablet RxNorm: 073755 1 Tablet(s) PO daily 01/30/2016 06/16/2016 Inactive amlodipine 10 mg tablet RxNorm: 031163 1/2 Tablet(s) PO daily 01/30/2016 02/05/2016 Inactive doxazosin 4 mg tablet RxNorm: 474059 1.5 Tablet(s) PO BID 01/30/2016 01/23/2017 Inactive Flexeril 10 mg tablet RxNorm: 509008 TAKE ONE TABLET BY MOUTH EVERY 8 HOURS A S NEEDED 01/10/2016 01/29/2016 Inactive potassium chloride E R 10 mEq tablet,extended release RxNorm: 492479 1 Tablet(s) PO PRN as needed with lasix 12/25/2015 06/16/2016 Inactive prn swelling amlodipine 10 mg tablet RxNorm: 420971 TAKE ONE TABLET BY MOUTH EVERY MORNING 12/25/2015 12/24/2015 In active amlodipine 10 mg tablet RxNorm: 340800 TAKE ONE TABLET BY MOUTH EVERY MORNING 12/25/2015 01/29/2016 In active furosemide 20 mg tablet RxNorm: 954291 1/2 Tablet(s) PO daily as needed edema 12/21/2015 01/19/2016 In active pt needs to take 10meq potassium on days she takes the lasix metoprolol tartrate 100 mg tablet RxNorm: 034053 TAKE ONE AND ONE-HALF (1 & 1/2) TABLET BY MOUTH EVERY MORNING AND TAKE TWO TABLETS BY MOUTH EVERY EVENING 11/08/2015 12/07/2015 In active Flonase Allergy Reli ef 50 mcg/actuation nasal spray,suspension RxNorm: [place] as needed PLACE 2 SPRAYS IN EACH NOSTRIL DAILY 10/09/2015 02/05/2016 Inactive Flexeril 10 mg tablet RxNorm: 023588 1 Tablet(s) PO TID PRN TAKE ONE TABLET B Y MOUTH EVERY 8 HOURS NEEDED 10/09/2015 12/07/2015 Inactive alprazolam 0.5 mg ta blet RxNorm: 580467 TAKE ONE TABLET BY [facility] AT BEDTIME NEEDED FOR ANXIETY 08/29/2015 11/23/2015 Inactive Flonase Allergy Reli ef 50 mcg/actuation nasal spray,suspension RxNorm: PLACE 2 SPRAYS IN EACH NOSTRIL DAILY 07/06/2015 10/08/2015 Inactive Kenalog 40 mg/mL sylvia pension for injection RxNorm: 3207447 Milliliter(s) Inj 06/12/2015 06/12/2015 In active prednisone 10 mg tab lets in a dose pack RxNorm: 353802 1 Tablet(s) PO UD 06/12/2015 06/17/2015 In active 6-5-4-3-2-1 acyclovir 800 mg tablet RxNorm: 211842 1 Tablet(s) PO TID 06/12/2015 06/21/2015 Inactive Xanax 0.25 mg tablet RxNorm: 659654 1/2-1 Tablet(s) PO QDAY PRN 05/15/2015 02/07/2016 Inactive Flonase Allergy Reli ef 50 mcg/actuation nasal spray,suspension RxNorm: 2 [place] NASAL daily 05/15/2015 06/13/2015 Inactive Kenalog 40 mg/mL sylvia pension for injection RxNorm: 1787783 Milliliter(s) Inj 05/15/2015 05/15/2015 In active metoprolol tartrate 100 mg tablet RxNorm: 255693 TAKE ONE AND ONE-HALF (1 & 1/2) TABLET BY MOUTH EVERY MORNING AND TAKE TWO TABLETS BY MOUTH EVERY EVENING 05/07/2015 06/05/2015 In active metoprolol tartrate 100 mg tablet RxNorm: 553116 TAKE ONE AND ONE-HALF (1 & 1/2) TABLET BY MOUTH EVERY MORNING AND TAKE TWO TABLETS BY MOUTH EVERY EVENING 04/05/2015 05/04/2015 In active amlodipine 10 mg tablet RxNorm: 724085 TAKE ONE TABLET BY MOUTH EVERY MORNING 03/10/2015 12/04/2015 In active alprazolam 0.5 mg ta blet RxNorm: 171909 TAKE ONE TABLET BY [facility] EVERY NIGHT AT BEDTIME NEEDED FOR ANXIETY 02/23/2015 03/24/2015 Inactive (Response to an electronic controlled substance refill request - RxReferenceNumber: [id number]) alprazolam 0.5 mg ta blet RxNorm: 603637 1 Tablet(s) PO QHS as needed anxiety 02/23/2015 08/29/2015 In active (Response to an electronic controlled salas bstance refill request - RxReferenceNumber: [id number]) doxazosin 4 mg tablet RxNorm: 775408 TAKE ONE TABLET BY MOUTH TWICE A DAY 02/13/2015 01/29/2016 In active atorvastatin 20 mg t ablet RxNorm: 269571 TAKE ONE TABLET BY MO [facility] EVERY DAY 01/19/2015 07/17/2015 In active atorvastatin 20 mg t ablet RxNorm: 486198 Tablet(s) TAKE ONE TA BLET BY MOUTH EVERY DAY 01/19/2015 01/18/2015 Inactive [SAVINGS FOR NON-COVERED DRUGS -- BIN:00 8284, PCN: ASPROD1, Group: XXXXX, ID# [id number], Questions: . THIS IS NOT INSURANCE.] Maxzide-25mg 37.5 mg -25 mg tablet RxNorm: 60182 1 Tablet(s) PO daily 01/10/2015 10/08/2015 Inactive [SAVINGS FOR NON-COVERED DRUGS -- BIN:00 3585, PCN: ASPROD1, Group: XXXXX, ID# [id number], Questions: . THIS IS NOT INSURANCE.] metoprolol tartrate 100 mg tablet RxNorm: 416405 TAKE ONE AND ONE-HALF (1 & 1/2) TABLET BY MOUTH EVERY MORNING AND TAKE TWO TABLETS BY MOUTH EVERY EVENING 12/05/2014 01/03/2015 In active Flexeril 10 mg tablet RxNorm: 738549 TAKE ONE TABLET BY MOUTH EVERY 8 HOURS A S NEEDED 10/31/2014 06/27/2015 Inactive alprazolam 0.5 mg ta blet RxNorm: 526923 1 Tablet(s) PO QHS TA KE ONE TABLET BY MOUTH EVERY NIGHT AT BEDTIME AND NEEDED FOR PANIC ATTACKS 10/21/2014 10/23/2014 Inactive (Appended: Controlled substance eRx refi ll - RxReferenceNumber: [id number]) alprazolam 0.5 mg ta blet RxNorm: 912191 TAKE ONE TABLET BY MO [facility] EVERY NIGHT AT BEDTIME NEEDED FOR ANXIETY 10/20/2014 11/18/2014 Inactive (Response to an electronic controlled substance refill request - RxReferenceNumber: [id number]) amlodipine 10 mg tablet RxNorm: 917241 1 Tablet(s) PO QAM 09/09/2014 03/07/2015 Inactive now taking full tab [SAVINGS FOR UNINSURED PATIENTS -- BIN:208106, PCN: ASPROD1, Group: [id number], ID# [id number], Process claim through [employer], for questions: . THIS IS NOT INSURANCE.] metoprolol tartrate 100 mg tablet RxNorm: 876604 TAKE ONE AND ONE-HALF (1 & 1/2) TABLET BY MOUTH EVERY MORNING AND TAKE TWO TABLETS BY MOUTH EVERY EVENING 09/03/2014 10/02/2014 In active alprazolam 0.5 mg ta blet RxNorm: 288433 TAKE ONE TABLET BY MO [facility] EVERY NIGHT AT BEDTIME AND NEEDED FOR PANIC ATTACKS 08/29/2014 09/12/2014 Inactive (Response to an electronic controlled substance refill request - RxReferenceNumber: [id number]) Zithromax Z-Kush 250 mg tablet RxNorm: 688796 1 Tablet(s) PO UD 07/26/2014 07/25/2014 Inactive 2 tabs on day 1 then 1 tab daily on days 2-5 Zithromax Z-Kush 250 mg tablet RxNorm: 690134 1 Tablet(s) PO UD 07/26/2014 07/30/2014 Inactive 2 tabs on day 1 then 1 tab daily on days 2-5 alprazolam 0.5 mg ta blet RxNorm: 883700 Tablet(s) PO TAKE ONE TABLET BY MOUTH EVERY NIGHT AT BEDTIME AND NEEDED FOR PANIC ATTACKS 07/08/2014 08/30/2014 Inactive (Appended: Controlled substance eRx refill - RxReferenceNumber: [id number]) atorvastatin 20 mg t ablet RxNorm: 293104 TAKE ONE TABLET BY [facility] EVERY DAY 04/25/2014 01/18/2015 In active Carafate 1 gram tablet RxNorm: 912530 Tablet(s) PO TAKE ONE TABLET BY MOUTH FO UR TIMES A DAY 04/14/2014 10/08/2015 Inactive Fish Oil 1,000 mg ca psule RxNorm: 1 Capsule(s) PO TID 04/13/2014 10/08/2015 Inactive Flexeril 10 mg tablet RxNorm: 593542 1 Tablet(s) PO Q8 PRN 04/01/2014 04/10/2014 Inactive Carafate 1 gram tablet RxNorm: 761240 1 Tablet(s) PO QID 03/10/2014 04/08/2014 Inactive chlordiazepoxide-cli dinium 5 mg-2.5 mg capsule RxNorm: 764441 1 Capsule(s) PO TID P RN 03/10/2014 04/10/2014 Inactive doxazosin 4 mg tablet RxNorm: 929289 1 Tablet(s) PO BID 02/02/2014 02/12/2015 Inactive Kenalog 40 mg/mL sylvia pension for injection RxNorm: 1928866 Milliliter(s) Inj 02/02/2014 02/02/2014 In active atorvastatin 20 mg t ablet RxNorm: 111877 Tablet(s) PO TAKE ONE TABLET BY MOUTH EVERY DAY 01/10/2014 04/24/2014 Inactive alprazolam 0.5 mg ta blet RxNorm: 775658 Tablet(s) PO TAKE ONE TABLET BY MOUTH EVERY NIGHT AT BEDTIME AND NEEDED FOR PANIC ATTACKS 01/10/2014 07/07/2014 Inactive (Appended: Controlled substance eRx refill - RxReferenceNumber: [id number]) alprazolam 0.5 mg ta blet RxNorm: 371201 1 Tablet(s) PO QHS TA KE ONE TABLET BY MOUTH EVERY NIGHT AT BEDTIME AND NEEDED FOR PANIC ATTACKS 01/10/2014 10/20/2014 Inactive (Appended: Controlled substance eRx refi ll - RxReferenceNumber: [id number]) alprazolam 0.5 mg ta blet RxNorm: 842761 Tablet(s) PO TAKE ONE TABLET BY MOUTH EVERY NIGHT AT BEDTIME AND NEEDED FOR PANIC ATTACKS 01/10/2014 01/09/2014 Inactive (Appended: Controlled substance eRx refill - RxReferenceNumber: [id number]) Carafate 1 gram tablet RxNorm: 788835 1 Tablet(s) PO QID 12/16/2013 01/14/2014 Inactive Nexium 40 mg capsule ,delayed release RxNorm: 507049 Capsule(s) PO TAKE ON E CAPSULE BY MOUTH EVERY DAY 11/25/2013 03/12/2016 Inactive doxazosin 4 mg tablet RxNorm: 352841 1/2 Tablet(s) PO QPM 10/21/2013 10/20/2013 Inactive alprazolam 0.5 mg ta blet RxNorm: 834305 1 Tablet(s) PO as dir ected q hs and prn panic attacks 10/18/2013 01/10/2014 Inactive doxazosin 4 mg tablet RxNorm: 799178 1 q am 1/2 q pm Tablet(s) PO 09/21/2013 02/01/2014 Inactive doxazosin 4 mg tablet RxNorm: 121203 1 q am 1/2 q pm Tablet(s) PO 09/21/2013 09/20/2013 Inactive amlodipine 10 mg tablet RxNorm: 624760 1 Tablet(s) PO QAM 08/30/2013 08/24/2014 Inactive now taking full tab metoprolol tartrate 100 mg tablet RxNorm: 224235 2 Tablet(s) PO QPM 08/24/2013 10/22/2013 Inactive alprazolam 0.5 mg ta blet RxNorm: 652706 1 Tablet(s) PO as dir ected q hs and prn panic attacks 07/29/2013 10/17/2013 Inactive Benicar 20 mg tablet RxNorm: 958173 1 Tablet(s) PO daily 07/26/2013 08/09/2013 Inactive amlodipine 10 mg tablet RxNorm: 246368 1 Tablet(s) PO QAM 07/19/2013 08/29/2013 Inactive cyclobenzaprine 5 mg tablet RxNorm: 914313 1 Tablet(s) PO TID TN N one pill every 8 hours as needed for muscle spasms. 07/19/2013 03/31/2014 Inactive Kenalog 40 mg/mL Sylvia p for Injection RxNorm: 7063794 1 Milliliter(s) Inj 06/30/2013 06/30/2013 In active prednisone 10 mg tab lets in a dose pack RxNorm: 458552 1 Tablet(s) PO as doc tor directed take steroid taper as directed on box 06/30/2013 07/09/2013 Inactive disp ense one PACK meclizine 25 mg tablet RxNorm: 826382 1 Tablet(s) PO Q6 PRN 1/2 - 1 pill every 6 hours as needed for vertigo 06/30/2013 08/10/2013 Inactive metoprolol tartrate 100 mg tablet RxNorm: 735612 1.5 Tablet(s) PO BID 06/30/2013 08/23/2013 In active metoprolol tartrate 100 mg tablet RxNorm: 761629 1 Tablet(s) PO BID 06/24/2013 06/29/2013 Inactive metoprolol tartrate 100 mg tablet RxNorm: 356915 1 Tablet(s) PO daily 06/17/2013 06/23/2013 In active metoprolol tartrate 100 mg tablet RxNorm: 761211 1 Tablet(s) PO daily 06/17/2013 06/16/2013 In active Toprol XL 100 mg tab let,extended release RxNorm: 151375 Tablet(s) PO TAKE ONE AND ONE- HALF TABLET BY MOUTH EVERY MORNING AND ONE TABLET IN THE EVENING 05/05/2013 06/22/2013 In active alprazolam 0.5 mg ta blet RxNorm: 572368 1 Tablet(s) PO as dir ected q hs and prn panic attacks 04/06/2013 07/28/2013 Inactive doxazosin 4 mg tablet RxNorm: 232220 Tablet(s) PO TAKE ONE TABLET BY MOUTH EV KANE DAY 04/01/2013 09/20/2013 Inactive Toprol XL 100 mg tab let,extended release RxNorm: 969924 Tablet(s) PO TAKE ONE AND ONE- HALF TABLET BY MOUTH EVERY MORNING AND ONE TABLET IN THE EVENING 12/25/2012 05/04/2013 In active Lasix 20 mg tablet RxNorm: 063562 1 Tablet(s) PO QDAY PRN Take 1 tab daily x 3 days then as needed 12/02/2012 04/10/2014 Inactive potassium chloride E R 20 mEq tablet,extended release(part/cryst) RxNorm: 742556 1 Tablet(s) PO PRN 12/02/2012 10/04/2013 Inactive prn swelling alprazolam 0.5 mg ta blet RxNorm: 059811 1 Tablet(s) PO as dir ected q hs and prn panic attacks 12/01/2012 04/05/2013 Inactive amlodipine 10 mg tablet RxNorm: 493960 1/2 Tablet(s) PO QAM 12/01/2012 07/18/2013 Inactive fluconazole 150 mg t ablet RxNorm: 638361 1 Tablet(s) PO daily 11/16/2012 11/20/2012 Inactive fluconazole 150 mg t ablet RxNorm: 898549 1 Tablet(s) PO daily 11/16/2012 11/15/2012 Inactive Nexium 40 mg capsule ,delayed release RxNorm: 157191 1 Capsule(s) PO daily 10/23/2012 11/16/2013 In active acyclovir 400 mg tablet RxNorm: 628560 1 Tablet(s) PO TID 10/19/2012 10/28/2012 Inactive chlordiazepoxide-cli dinium 5 mg-2.5 mg capsule RxNorm: 272497 1 Capsule(s) PO TID P RN 2012 12/22/2013 Inactive Voltaren 1 % Topical Gel RxNorm: 912155 4 Gram(s) TOP QID pt is to use 2 grams to each hand and 4 grams to knees. 08/18/2012 04/10/2014 Inactive doxazosin 4 mg tablet RxNorm: 793847 1 Tablet(s) PO QAM 08/18/2012 10/16/2012 Inactive atorvastatin 20 mg t ablet RxNorm: 198770 1 Tablet(s) PO HS 08/12/2012 08/11/2012 Inactive may have #90 x3 infection atorvastatin 20 mg t ablet RxNorm: 761971 1 Tablet(s) PO HS 08/12/2012 09/05/2013 Inactive may have #90 x3 infection doxazosin 4 mg tablet RxNorm: 537178 1 Tablet(s) PO daily 08/11/2012 08/17/2012 Inactive clonidine 0.1 mg/24 hr Weekly Transderm Patch RxNorm: 667355 1 Patch TD QW 08/04/2012 08/10/2012 In active Influenza Virus Vacc ine 0.5 mL RxNorm: IM 08/04/2012 08/04/2012 Inactive cyclobenzaprine 5 mg tablet RxNorm: 295148 1 Tablet(s) PO TID TN N one pill every 8 hours as needed for muscle spasms. 07/13/2012 11/09/2012 Inactive cyclobenzaprine 5 mg tablet RxNorm: 257598 1 Tablet(s) PO TID TN N one pill every 8 hours as needed for muscle spasms. 07/09/2012 07/12/2012 Inactive gabapentin 100 mg ca psule RxNorm: 173476 1 Capsule(s) PO TID 07/01/2012 12/01/2012 Inactive atorvastatin 20 mg t ablet RxNorm: 675495 1/2 Tablet(s) PO daily 07/01/2012 08/11/2012 Inactive may of day supply if cheaper Toprol XL 100 mg tab let,extended release RxNorm: 270068 Tablet(s) PO BID 11/2 in am and 1 in evening 07/01/2012 06/16/2013 Inactive 1 1/2 q am 1 in [place] alprazolam 0.5 mg ta blet RxNorm: 695472 1 Tablet(s) PO as dir ected q hs and prn panic attacks 06/24/2012 11/30/2012 Inactive amlodipine 10 mg tablet RxNorm: 988213 1 Tablet(s) PO QAM 06/19/2012 11/30/2012 Inactive benazepril 20 mg tablet RxNorm: 401400 1 Tablet(s) PO daily 06/19/2012 06/13/2013 Inactive one daily at noon Toprol XL 100 mg tab let,extended release RxNorm: 222595 Tablet(s) PO BID 06/19/2012 06/30/2012 In active 1 1/2 q am 1 in [place] Toprol XL 100 mg tab let,extended release RxNorm: 356949 1 1/2 Tablet(s) PO BI D 04/27/2012 06/18/2012 In active 90 or 30 day supply, whatever ins will a llow Lotrel 10 mg-20 mg Cap RxNorm: 138279 1 Capsule(s) PO daily 04/20/2012 08/04/2012 Inactive estradiol 0.5 mg Tab RxNorm: 032537 1 Tablet(s) PO BID 04/20/2012 12/02/2012 Inactive Toprol XL 100 mg 24 hr Tab RxNorm: 548296 1 1/2 Tablet(s) PO BID 04/14/2012 04/26/2012 Inactive Toprol XL 100 mg 24 hr Tab RxNorm: 136098 Tablet(s) PO daily 03/31/2012 04/13/2012 Inactive new directions: one q am 1/2 every evepl ease put on file until she needs filled Lipitor 10 mg tablet RxNorm: 927226 1 Tablet(s) PO daily 03/31/2012 12/02/2012 Inactive may of 90 day supply if cheaper Toprol XL 100 mg 24 hr Tab RxNorm: 803232 1 Tablet(s) PO daily 03/11/2012 03/30/2012 Inactive Boniva 150 mg Tab RxNorm: 422228 1 Tablet(s) PO weekly 02/19/2012 12/02/2012 Inactive Detrol LA 4 mg capsu le,extended release RxNorm: 258573 1 Capsule(s) PO daily 02/19/2012 03/12/2016 In active doxycycline hyclate 100 mg Tab RxNorm: 611337 1 Tablet(s) PO BID 01/23/2012 02/25/2012 Inactive Rocephin 500 mg Solu tion for Injection RxNorm: 763260 1 Milliliter(s) Inj 01/23/2012 01/23/2012 In active Kenalog 40 mg/mL Sylvia p for Injection RxNorm: 8417687 1 Milliliter(s) Inj 01/23/2012 01/23/2012 In active cyclobenzaprine 5 mg tablet RxNorm: 868496 1 Tablet(s) PO TID TN N one pill every 8 hours as needed for muscle spasms. 12/20/2011 04/17/2012 Inactive clonidine 0.1 mg Tab RxNorm: 400650 1 Tablet(s) PO BID 12/20/2011 02/25/2012 Inactive Vitamin D3 5,000 uni t tablet RxNorm: 397880 1 Tablet(s) PO daily No Start Date Active Nexium 24HR 22.3 mg capsule,delayed release RxNorm: 080550 1 Capsule(s) PO daily as needed No Start Date Active Fish Oil 360 mg-1,20 0 mg capsule,delayed release RxNorm: 1 Capsule(s) PO daily No Start Date Active Lotrel 10 mg-20 mg Cap RxNorm: 183759 1 Capsule(s) PO daily No Start Date 02/24/2012 Inactive benazepril 20 mg tablet RxNorm: 377497 1 Tablet(s) PO No Start Date 06/18/2012 Inactive one daily at noon Vimovo 500 mg-20 mg multiphase, immed & delay rel Tab RxNorm: 428426 1 Tablet(s) PO BID No Start Date 12/01/2012 Inactive B12 1000 mcg RxNorm: 2 IM daily No Start Date 03/12/2016 Inactive Fish Oil 1,000 mg ca psule RxNorm: 1 Capsule(s) PO BID No Start Date 04/12/2014 Inactive Benicar 40 mg tablet RxNorm: 931311 1 Tablet(s) PO daily No Start Date 10/24/2013 Inactive Carafate 1 gram tablet RxNorm: 543478 Oral No Start Date 12/15/2013 Inactive Vitamin B-12 1,000 m cg tablet RxNorm: 039173 1 Tablet(s) PO daily No Start Date 03/12/2016 Inactive amlodipine 10 mg tablet RxNorm: 304609 1 Tablet(s) PO daily No Start Date 06/18/2012 Inactive Phenergan VC-Codeine 6.25 mg-5 mg-10 mg/5 mL Syrup RxNorm: 383896 5-10 Milliliter(s) PO Q6 PRN No Start Date 04/10/2014 Inactive Celebrex 200 mg capsule RxNorm: 025566 1 Capsule(s) PO daily No Start Date 10/08/2015 Inactive Percocet 5 mg-325 mg tablet RxNorm: 4079073 1-2 Tablet(s) PO Q6 PRN No Start Date 06/16/2014 Inactive Exforge 10 mg-320 mg Tab RxNorm: 171101 1 Tablet(s) PO daily sample No Start Date 05/20/2012 Inactive Lipitor 10 mg Tab RxNorm: 605358 1 Tablet(s) PO daily No Start Date 03/30/2012 Inactive tramadol 50 mg tablet RxNorm: 498749 1-2 Tablet(s) PO Q8 as needed No Start Date 04/24/2016 Inactive Lasix 20 mg tablet RxNorm: 751251 1 Tablet(s) PO QDAY PRN Take 1 tab daily x 3 days then as needed No Start Date 12/01/2012 Inactive potassium chloride E R 20 mEq tablet,extended release(part/cryst) RxNorm: 2559591 1 Tablet(s) PO QDAY PRN No Start Ochoa e 12/01/2012 Inactive Toprol XL 100 mg 24 hr Tab RxNorm: 541653 1 Tablet(s) PO daily No Start Date 03/10/2012 Inactive MIDRIN 325 mg-65 mg- 100 mg Cap RxNorm: 833825 1 Capsule(s) PO PRN No Start Date 05/20/2012 Inactive Nexium 40 mg capsule ,delayed release RxNorm: 367993 1 Capsule(s) PO daily No Start Date 10/22/2012 Inactive Detrol LA 4 mg 24 hr Cap RxNorm: 563106 Oral No S tart Date 02/18/2012 Inactive Boniva 150 mg Tab RxNorm: 508071 Oral No Start Date 02/18/2012 Inactive Flexeril 10 mg tablet RxNorm: 910652 1 Tablet(s) PO Q8 PRN No Start Date 03/31/2014 Inactive clidinium bromide Oral RxNorm: Oral No Start Date 12/01/2012 Inactive alprazolam 0.5 mg ta blet RxNorm: 317191 1 Tablet(s) PO as dir ected q hs and prn panic attacks No Start Date 06/23/2012 Inactive chlordiazepoxide Oral RxNorm: Oral No Start Date 12/01/2012 Inactive metoprolol tartrate 100 mg tablet RxNorm: 651034 Tablet(s) PO TAKE ONE AND ONE-HALF (1 & 1/2) TABLET BY MOUTH EVERY MORNING AND TAKE TWO TABLETS BY MOUTH EVERY EVENING No Start Date 08/03/2014 Inactive furosemide 20 mg tablet RxNorm: 481821 1 Tablet(s) PO daily No Start Date 01/29/2016 Inactive Calcium Oral RxNorm: Oral No Start Date 03/12 Inactive Nasonex 50 mcg/actua tion [place] RxNorm: 638648 1 [place] NASAL BID No Start Date 04/10/2014 Inactive Medication Administered Medication Codes Instruc tions Start Date Status Kenalog 40 mg/mL suspension for injection RxNorm: 2843303 Milliliter 06/23/2017 No longer Active Kenalog 40 mg/mL suspension for injection RxNorm: 1649327 2Milliliter 03/21/2017 N o longer Active Kenalog 40 mg/mL suspension for injection RxNorm: 1587490 1Milliliter 04/04/2016 N o longer Active Kenalog 40 mg/mL suspension for injection RxNorm: 2294364 Milliliter 06/12/2015 No longer Active Kenalog 40 mg/mL suspension for injection RxNorm: 9652993 Milliliter 05/15/2015 No longer Active Kenalog 40 mg/mL suspension for injection RxNorm: 7170093 Milliliter 02/02/2014 No longer Active Kenalog 40 mg/mL Susp for Injection RxNorm: 4193296 1Milliliter 06/30/2013 N o longer Active Influenza Virus Vaccine 0.5 mL RxNorm: 08/04/2012 No longer Active Rocephin 500 mg Solution for Injection RxNorm: 233928 1Milliliter 01/23/2012 N o longer Active Kenalog 40 mg/mL Susp for Injection RxNorm: 1883657 1Milliliter 01/23/2012 N o longer Active Immunizations [...] Ord2 RDW 14.8 % 06/05/2015 Comp Metabolic Jzr179 NA 138 mEq/L 06/05/2015 Comp Metabolic Gpa632 K 4.3 mEq/L 06/05/2015 Comp Metabolic Xhj585 CL 100 mEq/L 06/05/2015 Comp Metabolic Ckc498 CO2 29.0 mEq/L 06/05/2015 Comp Metabolic Iqj283 AN ION GAP 13 06/05/2015 Comp Metabolic Gox570 GL UCOSE 85 mg/dL 06/05/2015 Comp Metabolic Pis972 Cr eat 0.7 mg/dL 06/05/2015 Comp Metabolic Pfb737 eG FR 94 ml/min/1.73m2 06/05 Comp Metabolic Lxg804 BUN 16 mg/dL 06/05/2015 Comp Metabolic Qsi118 B/ C Ratio 24.2 Ratio 06/05/2015 Comp Metabolic Bae200 CA LCIUM 9.5 mg/dL 06/05/2015 Comp Metabolic Cbf215 AL K PHOS 69 U/L 06/05/2015 Comp Metabolic Tlb463 T(SGOT) 22 U/L 06/05/2015 Comp Metabolic Nbu312 AL T(SGPT) 26 U/L 06/05/2015 Comp Metabolic Vtt122 BI LI T 0.5 mg/dL 06/05/2015 Comp Metabolic Dic987 AL BUMIN 4.2 g/dL 06/05/2015 Comp Metabolic Bkt293 TP RO 6.1 g/dL 06/05/2015 Comp Metabolic Nop195 GL OB 1.9 g/dL 06/05/2015 Comp Metabolic Rzj738 A/ G Ratio 2.2 Ratio 06/05/2015 Comp Metabolic Uyx781 Os mo 276 mOsmo 06/05/2015 Tsh Ord6 hTSH II 1.99 uIU/mL 06/05/2015 Lipid Ord30 CHOL 171 mg/dL 06/05/2015 Lipid Ord30 HDL 55.0 mg/dl 06/05/2015 Lipid Ord30 TRIG 178 mg/dL 06/05/2015 Lipid Ord30 LDL 80 mg/dL 06/05/2015 Lipid Ord30 C/HDL 3.1 Ratio 06/05/2015 %Hba1C Qen054 % HbA1c 91575-9 5.7 % 06/05/2015 %Hba1C Xjc072 Gluc Ave 117 mg/dL 06/05/2015 A1C HPLC 8619043 A1C HPLC 23726-2 5.6 % 07/15/2014 GFR CALC 4067867 GFR AA >60 ML/MIN 07/15/2014 GFR CALC 5781269 GFR NON -AA >60 ML/MIN 07/15/2014 CHEM 14 4284178 AST 21 U/L 07/15/2014 CHEM 14 0614613 ALT 23 IU/L 07/15/2014 CHEM 14 4522089 BUN 14 MG/DL 07/15/2014 CHEM 14 7973081 ALBUMIN 4.2 GM/DL 07/15/2014 CHEM 14 2736601 CHLORIDE 104 MMOL/L 07/15/2014 CHEM 14 4152661 BILI TOT 0.4 MG/DL 07/15/2014 CHEM 14 7718796 ALK PHOS 88 U/L 07/15/2014 CHEM 14 8550142 SODIUM 140 MMOL/L 07/15/2014 CHEM 14 0752356 CREATINI NE 0.63 MG/DL 07/15/2014 CHEM 14 7555689 CALCIUM 9.4 MG/DL 07/15/2014 CHEM 14 5166694 POTASSIUM 4.0 MMOL/L 07/15/2014 CHEM 14 9656217 PROT TOT 6.4 GM/DL 07/15/2014 CHEM 14 7724961 GLUCOSE 90 MG/DL 07/15/2014 CHEM 14 9283105 BICARB 30 MMOL/L 07/15/2014 CHEM 14 3821602 ANION GAP 6 MEQ/L 07/15/2014 A1C HPLC 7238107 A1C HPLC 34242-3 6.0 % 04/13/2014 TSH 4626753 TSH 1.875 uIU/ML 04/12/2014 CHEM 14 7313959 AST 17 U/L 04/12/2014 CHEM 14 5408581 ALT 20 IU/L 04/12/2014 CHEM 14 0952157 BUN 14 MG/DL 04/12/2014 CHEM 14 2229789 ALBUMIN 4.2 GM/DL 04/12/2014 CHEM 14 4770508 CHLORIDE 104 MMOL/L 04/12/2014 CHEM 14 9799408 BILI TOT 0.3 MG/DL 04/12/2014 CHEM 14 4023557 ALK PHOS 80 U/L 04/12/2014 CHEM 14 6652964 SODIUM 141 MMOL/L 04/12/2014 CHEM 14 9448031 CREATINI NE 0.62 MG/DL 04/12/2014 CHEM 14 5667493 CALCIUM 9.4 MG/DL 04/12/2014 CHEM 14 4433708 POTASSIUM 3.5 MMOL/L 04/12/2014 CHEM 14 5486019 PROT TOT 6.5 GM/DL 04/12/2014 CHEM 14 4268189 GLUCOSE 89 MG/DL 04/12/2014 CHEM 14 9115697 BICARB 29 MMOL/L 04/12/2014 CHEM 14 3102275 ANION GAP 8 MEQ/L 04/12/2014 LIPID GRP HDL TE ST 59 MG/DL 04/12/2014 LIPID GRP TRIG 177 MG/DL 04/12/2014 LIPID GRP 1738127 TEST L DL 106 MG/DL 04/12/2014 LIPID GRP CHOL 200 MG/DL 04/12/2014 LIPID GRP RCHOL/ HDL 3.39 RATIO 04/12/2014 CBC 1031917 WBC 4.6 10e9/L 04/12/2014 CBC 8144232 RBC 4.52 10e12/L 04/12/2014 CBC 8057105 HGB 13.1 g/dL 04/12/2014 CBC 3157071 HCT DET 39.2 % 04/12/2014 CBC 7247084 MCV 86.7 fL 04/12/2014 CBC 3229262 MCH 29.0 pg 04/12/2014 CBC 8485845 MCHC 33.4 g/dL 04/12/2014 CBC 3700044 PLT 233 10e9/L 04/12/2014 CBC 8792201 MPV 9.8 fL 04/12/2014 CBC 5644069 AN % 59.5 % 04/12/2014 CBC 9316408 LY % 28.6 % 04/12/2014 CBC 4750508 MON % 10.0 % 04/12/2014 CBC 7277153 EOS % 1.5 % 04/12/2014 CBC 5823811 BASO % 0.4 % 04/12/2014 CBC 8358885 RDW 13.7 % 04/12/2014 CBC 8264071 ABS AN 2.74 10e9/L 04/12/2014 CBC 4829714 ABS LYMPH 1.32 10e9/L 04/12/2014 CBC 7743399 ABS MONO 0.46 10e9/L 04/12/2014 CBC 5013740 ABS EOS 0.07 10e9/L 04/12/2014 CBC 2825279 ABS BASO 0.02 10e9/L 04/12/2014 CBC 1319763 RDW-SD 42.6 fL 04/12/2014 GFR CALC 1831757 GFR AA >60 ML/MIN 04/12/2014 GFR CALC 3068986 GFR NON -AA >60 ML/MIN 04/12/2014 LIPID GRP HDL TE ST 57 MG/DL 08/24/2013 LIPID GRP TRIG 183 MG/DL 08/24/2013 LIPID GRP 5417729 TEST L DL 64 MG/DL 08/24/2013 LIPID GRP CHOL 158 MG/DL 08/24/2013 LIPID GRP RCHOL/ HDL 2.77 RATIO 08/24/2013 GFR CALC 2725225 GFR AA >60 ML/MIN 08/24/2013 GFR CALC 3180007 GFR NON -AA >60 ML/MIN 08/24/2013 CHEM 14 4303789 AST 13 U/L 08/24/2013 CHEM 14 7244798 ALT 15 IU/L 08/24/2013 CHEM 14 8961840 BUN 14 MG/DL 08/24/2013 CHEM 14 1883461 ALBUMIN 4.3 GM/DL 08/24/2013 CHEM 14 7410239 CHLORIDE 106 MMOL/L 08/24/2013 CHEM 14 2076815 BILI TOT 0.3 MG/DL 08/24/2013 CHEM 14 9638654 ALK PHOS 75 U/L 08/24/2013 CHEM 14 3154693 SODIUM 141 MMOL/L 08/24/2013 CHEM 14 8816231 CREATINI NE 0.56 MG/DL 08/24/2013 CHEM 14 3773826 CALCIUM 9.1 MG/DL 08/24/2013 CHEM 14 5183474 POTASSIUM 4.2 MMOL/L 08/24/2013 CHEM 14 5871904 PROT TOT 6.0 GM/DL 08/24/2013 CHEM 14 6976128 GLUCOSE 83 MG/DL 08/24/2013 CHEM 14 1209023 BICARB 28 MMOL/L 08/24/2013 CHEM 14 1525374 ANION GAP 7 MEQ/L 08/24/2013 CBC 1045868 WBC 4.7 10e9/L 08/24/2013 CBC 0766882 RBC 4.33 10e12/L 08/24/2013 CBC 0035754 HGB 12.5 g/dL 08/24/2013 CBC 5250669 HCT DET 38.2 % 08/24/2013 CBC 9690084 MCV 88.2 fL 08/24/2013 CBC 2281890 MCH 28.9 pg 08/24/2013 CBC 0822309 MCHC 32.7 g/dL 08/24/2013 CBC 9796466 PLT 218 10e9/L 08/24/2013 CBC 8131187 MPV 10.4 fL 08/24/2013 CBC 8622192 AN % 61.9 % 08/24/2013 CBC 0309603 LY % 24.8 % 08/24/2013 CBC 4875249 MON % 10.3 % 08/24/2013 CBC 8851465 EOS % 2.1 % 08/24/2013 CBC 1015799 BASO % 0.9 % 08/24/2013 CBC 8623958 RDW 14.6 % 08/24/2013 CBC 3804481 ABS AN 2.91 10e9/L 08/24/2013 CBC 7701819 ABS LYMPH 1.17 10e9/L 08/24/2013 CBC 1566821 ABS MONO 0.48 10e9/L 08/24/2013 CBC 6159960 ABS EOS 0.10 10e9/L 08/24/2013 CBC 7628484 ABS BASO 0.04 10e9/L 08/24/2013 CBC 2269907 RDW-SD 46.7 fL 08/24/2013 TSH 5640594 TSH 1.208 uIU/ML 08/24/2013 Review of Systems [...] rate 08/24/2013 None Full Exam - General 1995 [...] 01/22/2017 ADMIN PNEUMOCOCCAL V ACCINE SNOMED CT: 99547171 CPT-4: G0009 09/16/2016 Pneumococcal Polysac charide Vaccine, 23-Valent, Ad CPT-4: 18511 09/16/2016 THER/PROPH/DIAG INJ SC/IM CPT-4: 01131 04/04/2016 TRIAMCINOLONE ACET I [place] NOS CPT-4: J3301 04/04/2016 ADMIN INFLUENZA VIRU S VAC CPT-4: G0008 07/28/2015 FLU VACC 4 XIMENA 3 YRS PLUS IM Formatting Model/CDA Sections, Assigned to/Jen Cota SNOMED CT: 59891676 CPT-4: 30263Nhzhcxc 07/28/2015 TRIAMCINOLONE ACET I [place] NOS CPT-4: J3301 06/12/2015 TRIAMCINOLONE ACET I [place] NOS CPT-4: J3301 05/15/2015 ADMIN INFLUENZA VIRU S VAC CPT-4: G0008 07/19/2014 FLU VAC NO PRSV 4 VA L 3 YRS+ Assigned to/Jen Cota CPT-4: 60300Utrpblr 07/19/2014 TRIAMCINOLONE ACET I [place] NOS CPT-4: J3301 02/02/2014 ROUTINE VENIPUNCTURE CPT-4: 01675 08/24/2013 ADMIN INFLUENZA VIRU S VAC CPT-4: [...] CPT-4: J3301 01/23/2012 THER/PROPH/DIAG INJ SC/IM CPT-4: 38944 01/23/2012 REMOVE IMPACTED EAR WAX UNI CPT-4: 39949 01/02/2012 ROUTINE VENIPUNCTURE CPT-4: 99761 12/20/2011 Vital Signs Date Vital 09/17/2017 Blood Pressure 1: 150/82 Code: 8480-6 BMI: 33.6 Code: 92994-2 Heart Rate 1: 58 bpm Height: 5' SpO2: 98% Weight: 175 lbs 06/23/2017 Blood Pressure 1: 124/66 Code: 8480-6 Heart Rate 1: 65 bpm Height: 5' SpO2: 97% Weight: 05/13/2017 Blood Pressure 1: 128/80 Code: 8480-6 BMI: 32.8 Code: 83114-6 Heart Rate 1: 76 bpm Height: 5' SpO2: 95% Weight: 171 lbs 03/21/2017 Blood Pressure 1: 152/88 Code: 8480-6 Heart Rate 1: 70 bpm Height: SpO2: 98% Weight: 03/19/2017 Blood Pressure 1: 132/64 Code: 8480-6 BMI: 33.0 Code: 37992-7 Heart Rate 1: 64 bpm Height: 5' SpO2: 96% Weight: 172 lbs 01/22/2017 Blood Pressure 1: 120/68 Code: 8480-6 BMI: 33.4 Code: 08317-9 Heart Rate 1: 68 bpm Height: 5' SpO2: 96% Weight: 174 lbs 01/14/2017 Blood Pressure 1: 138/80 Code: 8480-6 BMI: 33.4 Code: 72753-6 Heart Rate 1: 69 bpm Height: 5' SpO2: 98% Weight: 174 lbs 09/23/2016 Blood Pressure 1: 138/70 Code: 8480-6 BMI: 33.6 Code: 79567-0 Heart Rate 1: 68 bpm Height: 5' SpO2: 98% Temperature: 36.4 (C ) / 97.5 (F) Weight: 175 lbs 09/16/2016 Blood Pressure 1: 124/74 Code: 8480-6 BMI: 33.6 Code: 10514-7 Heart Rate 1: 64 bpm Height: 5' SpO2: 97% Weight: 175 lbs 06/25/2016 Weigh t: 174 lbs 06/17/2016 Blood Pressure 1: 128/80 Code: 8480-6 BMI: 34.0 Code: 31302-6 Heart Rate 1: 76 bpm Height: 5' SpO2: 95% Weight: 177 lbs 04/03/2016 Blood Pressure 1: 138/72 Code: 8480-6 BMI: 34.2 Code: 54088-9 Heart Rate 1: 63 bpm Height: 5' SpO2: 96% Weight: 178 lbs 03/13/2016 Blood Pressure 1: 128/72 Code: 8480-6 BMI: 35.3 Code: 57482-1 Heart Rate 1: 71 bpm Height: 5' SpO2: 97% Weight: 184 lbs 01/30/2016 Blood Pressure 1: 134/72 Code: 8480-6 BMI: 35.2 Code: 71105-0 Heart Rate 1: 71 bpm Height: 5' SpO2: 96% Weight: 183 lbs 12/21/2015 Blood Pressure 1: 148/90 Code: 8480-6 BMI: 34.6 Code: 56102-1 Heart Rate 1: 89 bpm Height: 5' SpO2: 96% Weight: 180 lbs 10/09/2015 Blood Pressure 1: 124/76 Code: 8480-6 BMI: 34.6 Code: 18615-1 Heart Rate 1: 88 bpm Height: 5' SpO2: 96% Weight: 180 lbs 06/12/2015 Blood Pressure 1: 148/74 Code: 8480-6 BMI: 33.4 Code: 21182-8 Heart Rate 1: 70 bpm Height: 5' SpO2: 96% Weight: 174 lbs 06/05/2015 Blood Pressure 1: 142/82 Code: 8480-6 BMI: 33.2 Code: 37198-2 Heart Rate 1: 72 bpm Height: 5' Weight: 173 lbs 05/15/2015 Blood Pressure 1: 118/80 Code: 8480-6 BMI: 33.6 Code: 63226-5 Heart Rate 1: 82 bpm Height: 5' Weight: 175 lbs 02/06/2015 Blood Pressure 1: 122/76 Code: 8480-6 BMI: 34.6 Code: 48741-7 Heart Rate 1: 58 bpm Height: 5' Weight: 180 lbs 01/10/2015 Blood Pressure 1: 158/90 Code: 8480-6 Blood Pressure 2: 152/90 Code: 8480-6 BMI: 34.6 Code: 26572-9 Heart Rate 1: 68 bpm Height: 5' Weight: 180 lbs 07/19/2014 Blood Pressure 1: 142/78 Code: 8480-6 BMI: 33.6 Code: 73498-5 Heart Rate 1: 56 bpm Height: 5' Weight: 175 lbs 06/17/2014 Blood Pressure 1: 128/86 Code: 8480-6 Heart Rate 1: 66 bpm SpO2: 98% Weight: 172 lbs 04/19/2014 Blood Pressure 1: 152/82 Code: 8480-6 BMI: 32.5 Code: 11314-2 Heart Rate 1: 60 bpm Height: 5' Weight: 169 lbs 04/11/2014 Blood Pressure 1: 120/80 Code: 8480-6 BMI: 33.4 Code: 34334-0 Heart Rate 1: 64 bpm Height: 5' Weight: 174 lbs 03/10/2014 Blood Pressure 1: 136/64 Code: 8480-6 BMI: 32.7 Code: 19436-5 Heart Rate 1: 76 bpm Height: 5' Weight: 170 lbs 02/02/2014 Blood Pressure 1: 160/76 Code: 8480-6 BMI: 32.7 Code: 75282-3 Heart Rate 1: 64 bpm Height: 5' Weight: 170 lbs 10/25/2013 Blood Pressure 1: 164/82 Code: 8480-6 BMI: 31.9 Code: 73793-5 Heart Rate 1: 60 bpm Height: 5' Weight: 166 lbs 08/24/2013 Blood Pressure 1: 138/88 Code: 8480-6 Heart Rate 1: 80 bpm Weight: 07/26/2013 Blood Pressure 1: 154/70 Code: 8480-6 Heart Rate 1: 72 bpm Weight: 162 lbs 06/30/2013 Blood Pressure 1: 182/86 Code: 8480-6 Heart Rate 1: 80 bpm Weight: 06/24/2013 Blood Pressure 1: 148/68 Code: 8480-6 BMI: 31.3 Code: 59005-2 Heart Rate 1: 72 bpm Height: 5' [...] 1: 142/88 Code: 8480-6 BMI: 30.6 Code: 08255-6 Heart Rate 1: 64 bpm Height: 5' [...] 1: 180/96 Code: 8480-6 BMI: 30.5 Code: 60777-6 Heart Rate 1: 76 bpm Height: 5' Respiratory Rate: 16 bpm Weight: 159 lbs 02/19/2012 Blood Pressure 1: 150/70 Code: 8480-6 Blood Pressure 2: 160/78 Code: 8480-6 Heart Rate 1: 76 bpm Respiratory Rate: 16 bpm Weight: 158 lbs 01/23/2012 Blood Pressure 1: 140/84 Code: 8480-6 BMI: 30.3 Code: 76615-7 Heart Rate 1: 68 bpm Height: 5' Respiratory Rate: 16 bpm SpO2: 98% Temperature: 37.0 (C ) / 98.6 (F) Weight: 158 lbs 01/02/2012 Blood Pressure 1: 142/92 Code: 8480-6 BMI: 30.7 Code: 94075-2 Heart Rate 1: 72 bpm Height: 5' Respiratory Rate: 16 bpm Weight: 160 lbs 12/20/2011 Blood Pressure 1: 170/84 Code: 8480-6 BMI: 30.0 Code: 52622-9 Heart Rate 1: 70 bpm Height: 5' [...] 06/12/2015 None rash Location-Head/Neck on the right zoroastrian 06/12/2015 None rash Location-Head/Neck on the right [...] Encounters Encounter Performer Loca tion Codes Date ([id number]) 92075 EST. P ATIENT, LEVEL IV Diagnosis: Essential (primary) hypertension[ICD10: I10] Zoya Varela MD [facility] CPT-4: 55018 09/17/2017 ([id number]) 70677 EST. P ATIENT, LEVEL III Diagnosis: Allergic contact dermatitis due to plants, except food[ICD10: L23.7] Kacy Varela MD, [facility] CPT-4: 06319 06/23/2017 ([id number]) 88369 EST. P ATIENT, LEVEL IV Diagnosis: Essential (primary) hypertension[ICD10: I10] Diagnosis: Mixed hyperlipidemia[ICD10: E78.2] Zoya Varela MD, [facility] CPT- 4: 45098 05/13/2017 ([id number]) 33413 EST. P ATIENT, LEVEL III Diagnosis: Allergic contact dermatitis due to plants, except food[ICD10: L23.7] Kacy Varela MD, [facility] CPT-4: 82484 03/21/2017 11177 EST. PATIENT, LEVEL III Diagnosis: Bitten or stung by nonvenomous insect and other nonvenomous arthropods, initial encounter[ICD10: W57.XXXA] Diagnosis: Cellulitis of left lower limb[ICD10: L03.116] Laura Varela MD, [facility] CPT-4: 13827 03/19/2017 ([id number]) 21789 EST. P ATIENT, LEVEL IV Diagnosis: Type 2 diabetes mellitus without complications[ICD10: E11.9] Diagnosis: Essential (primary) hypertension[ICD10: I10] Diagnosis: Other specified epidermal thickening[ICD10: L85.8] Zoya Varela MD, [facility] CPT-4: 49713 01/14/2017 16062 EST. PATIENT, LEVEL III Diagnosis: Glossodynia[ICD10: K14.6] Kacy Varela MD, [facility] CPT- 4: 04718 09/23/2016 ([id number]) 48282 EST. P ATIENT, LEVEL IV Diagnosis: Encounter for screening mammogram for malignant neoplasm of breast[ICD10: Z12.31] Diagnosis: Encounter for immunization[ICD10: Z23] Zoya Varela MD, [facility] CPT-4: 38849 09/16/2016 ([id number]) 34794 EST. P ATIENT, LEVEL III Diagnosis: Diseases of lips[ICD10: K13.0] Diagnosis: Allergic rhinitis due to pollen[ICD10: J30.1] Kacy Varela MD, [facility] CPT-4: 02938 06/25/2016 ([id number]) 93834 EST. P ATIENT, LEVEL III Diagnosis: Essential (primary) hypertension[ICD10: I10] Kacy Varela MD, [facility] CPT-4: 20499 06/17/2016 55651 EST. PATIENT, LEVEL IV Diagnosis: Other acute sinusitis[ICD10: J01.80] Diagnosis: Acute laryngopharyngitis[ICD10: J06.0] Diagnosis: Other allergic rhinitis[ICD10: J30.89] Laura Varela MD, [facility] CPT-4: 34739 04/03/2016 ([id number]) 81721 EST. P ATIENT, LEVEL IV Diagnosis: Essential (primary) hypertension[ICD10: I10] Diagnosis: Localized edema[ICD10: R60.0] Diagnosis: Polyneuropathy, unspecified[ICD10: G62.9] Zoya Varela MD, [facility] CPT-4: 75550 03/13/2016 ([id number]) 70860 EST. P ATIENT, LEVEL IV Diagnosis: Essential (primary) hypertension[ICD10: I10] Diagnosis: Localized edema[ICD10: R60.0] Diagnosis: Type 2 diabetes mellitus without complications[ICD10: E11.9] Zoya Varela MD, [facility] CPT-4: 25885 01/30/2016 36634 EST. PATIENT, LEVEL IV Diagnosis: Localized edema[ICD10: R60.0] Laura Varela MD, [facility] CPT-4: 73458 12/21/2015 ([id number]) 42993 EST. P ATIENT, LEVEL III Diagnosis: Essential (primary) hypertension[ICD10: I10] Diagnosis: Allergic rhinitis due to pollen[ICD10: J30.1] Diagnosis: Cervicalgia[ICD10: M54.2] Kacy Varela MD, [facility] CPT- 4: 59598 10/09/2015 10517 EST. PATIENT, LEVEL II Diagnosis: Contact dermatitis[ICD9: 692.9] Kacy Varela MD, [facility] CPT- 4: 35671 06/12/2015 ([id number]) 85354 EST. P ATIENT, LEVEL III Diagnosis: ESSENTIAL HYPERTENSION[ICD9: 401.9] Diagnosis: DIABETES TYPE II[ICD9: 250.00] Diagnosis: Anxiety[ICD9: 300.00] Kacy Varela MD, [facility] CPT-4: 24063 06/05/2015 ([id number]) 81407 EST. P ATIENT, LEVEL IV Diagnosis: Anxiety[ICD9: 300.00] Diagnosis: ALLERGIC RHINITIS[ICD9: 477.9] Diagnosis: ESOPHAGEAL REFLUX[ICD9: 530.81] Kacy Varela MD, [facility] CPT- 4: 05436 05/15/2015 ([id number]) 40681 EST. P ATIENT, LEVEL III Diagnosis: ESSENTIAL HYPERTENSION[ICD9: 401.9] Zoya Varela MD, [facility] CPT- 4: 57103 02/06/2015 ([id number]) 31602 EST. P ATIENT, LEVEL IV Diagnosis: ESSENTIAL HYPERTENSION[ICD9: 401.9] Diagnosis: EDEMA[ICD9: 782.3] Diagnosis: DIABETES TYPE II[ICD9: 250.00] Zoya Varela MD, [facility] CPT-4: 12567 01/10/2015 ([id number]) 09634 EST. P ATIENT, LEVEL IV Diagnosis: ESSENTIAL HYPERTENSION[ICD9: 401.9] Diagnosis: DIABETES TYPE II[ICD9: 250.00] Zoya Varela MD, [facility] CPT-4: 67594 07/19/2014 ([id number]) 92121 EST. P ATIENT, LEVEL III Diagnosis: Left ankle pain[ICD9: 719.47] Kacy Varela MD, [facility] CPT- 4: 00057 06/17/2014 ([id number]) 53649 EST. P ATIENT, LEVEL III Diagnosis: ESSENTIAL HYPERTENSION[ICD9: 401.9] Diagnosis: Elevated blood sugar[ICD9: 790.29] Zoya Varela MD, [facility] CPT- 4: 57491 04/19/2014 ([id number]) 45983 EST. P ATIENT, LEVEL IV Diagnosis: ESSENTIAL HYPERTENSION[SNOMED: 90665432] Diagnosis: ESOPHAGEAL REFLUX[ICD9: 530.81] Zoya Varela MD, [facility] CPT-4: 91425 04/11/2014 ([id number]) 41558 EST. P ATIENT, LEVEL IV Diagnosis: ALLERGIC RHINITIS[ICD9: 477.9] Diagnosis: Anxiety[ICD9: 300.00] Diagnosis: Dyspnea[ICD9: 786.09] Diagnosis: ESOPHAGEAL REFLUX[ICD9: 530.81] [facility] CPT- 4: 46114 03/10/2014 ([id number]) 86703 EST. P ATIENT, LEVEL III Diagnosis: ALLERGIC RHINITIS[ICD9: 477.9] Diagnosis: ESSENTIAL HYPERTENSION[SNOMED: 49242582] Kacy Varela MD, [facility] CPT-4: 63357 02/02/2014 ([id number]) 20731 EST. P ATIENT, LEVEL III Diagnosis: ESSENTIAL HYPERTENSION[SNOMED: 22917493] Diagnosis: Skin irritation[ICD9: 709.9] Zoya Varela MD, [facility] CPT-4: 80825 10/25/2013 ([id number]) 03326 EST. P ATIENT, LEVEL III Diagnosis: HYPERLIPIDEMIA[ICD9: 272.4] Diagnosis: ESSENTIAL HYPERTENSION[SNOMED: 65085879] Diagnosis: EDEMA[ICD9: 782.3] Diagnosis: Encounter for long-term (current) use of other medications[ICD9: V58.69] Zoya Varela MD, [facility] CPT-4: 74221 08/24/2013 ([id number]) 20495 EST. P ATIENT, LEVEL III Diagnosis: ESSENTIAL HYPERTENSION[SNOMED: 04640129] Zoya Varela MD, [facility] CPT-4: 20839 07/26/2013 ([id number]) 39207 EST. P ATIENT, LEVEL III Diagnosis: ESSENTIAL HYPERTENSION[SNOMED: 13863424] Zoya Varela MD, [facility] CPT-4: 14783 06/30/2013 ([id number]) 81526 EST. P ATIENT, LEVEL III Diagnosis: ESSENTIAL HYPERTENSION[SNOMED: 63984677] Zoya Varela MD, C CPT-4: 24324 06/24/2013 ([id number]) 55013 EST. P ATIENT, LEVEL IV Diagnosis: ESSENTIAL HYPERTENSION[SNOMED: 13205787] Diagnosis: Leg pain[ICD9: 729.5] Diagnosis: Leg swelling[ICD9: 729.81] Zoya Varela MD, [facility] CPT-4: 99642 12/01/2012 ([id number]) 27110 EST. P ATIENT, LEVEL III Diagnosis: Shingles[ICD9: 053.9] Zoya Varela MD, [facility] CPT-4: 23430 10/19/2012 ([id number]) 51978 EST. P ATIENT, LEVEL IV Diagnosis: EDEMA[ICD9: 782.3] Diagnosis: ESSENTIAL HYPERTENSION[SNOMED: 15644418] Zoya Varela MD, C CPT-4: 93569 10/07/2012 ([id number]) 53550 EST. P ATIENT, LEVEL IV Diagnosis: ESSENTIAL HYPERTENSION[SNOMED: 40921794] Diagnosis: EDEMA[ICD9: 782.3] Diagnosis: Irritable bowel disease[ICD9: 564.1] Zoya Varela MD, [facility] CPT-4: 21574 2012 ([id number]) 90806 EST. P ATIENT, LEVEL III Diagnosis: ESSENTIAL HYPERTENSION[SNOMED: 57942183] Zoya Varela MD, C CPT-4: 22762 08/18/2012 ([id number]) 83924 EST. P ATIENT, LEVEL III Diagnosis: ESSENTIAL HYPERTENSION[SNOMED: 26350028] Zoya Varela MD, C CPT-4: 09954 08/04/2012 ([id number]) 28335 EST. P ATIENT, LEVEL IV Diagnosis: ESSENTIAL HYPERTENSION[SNOMED: 83460174] Diagnosis: Lumbago[ICD9: 724.2] Diagnosis: HYPERLIPIDEMIA[ICD9: 272.4] Zoya Varela MD, [facility] CPT-4: 64145 07/01/2012 ([id number]) 19198 EST. P ATIENT, LEVEL III Diagnosis: ESSENTIAL HYPERTENSION[SNOMED: 16539501] Zoya Varela MD, C CPT-4: 15131 05/20/2012 ([id number]) 17095 EST. P ATIENT, LEVEL IV Diagnosis: ESSENTIAL HYPERTENSION[SNOMED: 00386453] Diagnosis: Hot flash, menopausal[ICD9: 627.2] Zoya Varela MD, [facility] CPT- 4: 78832 04/20/2012 84483 EST. PATIENT, LEVEL IV Diagnosis: SPASM OF MUSCLE[ICD9: 728.85] Diagnosis: Back pain[ICD9: 724.5] Diagnosis: ESSENTIAL HYPERTENSION[SNOMED: 33953343] Zoya Varela MD, C CPT-4: 48779 03/10/2012 ([id number]) 06035 EST. P ATIENT, LEVEL IV Diagnosis: COUGH[ICD9: 786.2] Diagnosis: Allergic rhinitis[ICD9: 477.9] Diagnosis: Malignant reactive hypertension[ICD9: 401.0] Zoya Varela MD, C CPT-4: 12281 02/25/2012 ([id number]) 65360 EST. P ATIENT, LEVEL III Diagnosis: ESSENTIAL HYPERTENSION[SNOMED: 91438654] Zoya Varela MD, C CPT-4: 77810 02/19/2012 54594 EST. PATIENT, LEVEL IV Diagnosis: ESSENTIAL HYPERTENSION[SNOMED: 55625318] Diagnosis: Cough[ICD9: 786.2] Kacy Varela MD, [facility] CPT-4: 96028 01/23/2012 ([id number]) 02625 EST. P ATIENT, LEVEL IV Diagnosis: HYPERLIPIDEMIA[ICD9: 272.4] Diagnosis: ESSENTIAL HYPERTENSION[SNOMED: 99691876] Zoya Varela MD, C CPT-4: 62283 01/02/2012 OFFICE VISIT, NEW - LEVEL 4 Diagnosis: ESSENTIAL HYPERTENSION[SNOMED: 52621780] Diagnosis: HYPERLIPIDEMIA[ICD9: 272.4] Diagnosis: IMPACTED CERUMEN[ICD9: 380.4] Diagnosis: Muscle spasm[ICD9: 728.85] Diagnosis: CHRONIC TENSION HEADACHE[ICD9: 339.12] Diagnosis: Neck pain, chronic[ICD9: 723.1] Diagnosis: Change in skin mole[ICD9: 216.9] Zoya Varela MD, [facility] CPT-4: 06277 12/20/2011 Plan of Care Planned Activity Notes C odes Status Date Appointment: Zoya Varela WPtel: [facility] (15 min) Moderate 09/17/2017 Patient Education: Patient Medication Summary Completed 09/17/2017 Patient Education: Obesity Completed 09/17/2017 Patient Education: Hypertension Completed 09/17/2017 Care Plan: SCREENINGMAMMOGRAPHYDIGITAL LOINC : 90630-9 Pending 09/17/2017 App[facility]ment[phone] [place] (15 min) Moderate 06/23/2017 Patient Education: Patient Medication Summary Completed 06/23/2017 App[facility]ment[phone] ([facility]) Moderate 05/13/2017 Patient Education: Patient Medication Summary Completed 05/13/2017 Patient Education: Obesity Completed 05/13/2017 Patient Education: Hypertension Completed 05/13/2017 Appointment: Kacy Moses WPtel: [phone] [phone] [place] (15 min) Moderate 03/21/2017 Patient Education: Patient Medication Summary Completed 03/21/2017 Appointment: [phone] ([facility]) Moderate 03/19/2017 Patient Education: Patient Medication Summary Completed 03/19/2017 Patient Education: Obesity Completed 03/19/2017 Appointment: [phone] [place] [facility] - Annual Wellness Visit 01/22/2017 Appointment: Nurse Visit 01/22/2017 Patient Education: Patient Medication Summary Completed 01/22/2017 Appointment: [phone] (15 min) Moderate 01/14/2017 Patient Education: Patient Medication Summary Completed 01/14/2017 Patient Education: Obesity Completed 01/14/2017 Patient Education: Hypertension Completed 01/14/2017 Appointment: [phone] [place] (15 min) Moderate 09/23/2016 Patient Education: Patient Medication Summary Completed 09/23/2016 Patient Education: Obesity Completed 09/23/2016 Appointment: [facility]el[phone] [place] (15 min) Moderate 09/16/2016 Patient Education: Patient Medication Summary Completed 09/16/2016 Patient Education: Obesity Completed 09/16/2016 Care Plan: SCREENINGMAMMOGRAPHYDIGITAL [facility] : 62532-6 Pending 09/16/2016 Appointment: Kacy Moses WPtel: [phone] [phone] [place] (15 min) Moderate 06/25/2016 Patient Education: Patient Medication Summary Completed 06/25/2016 Appointment: (15 min) Moderate 06/17/2016 Patient Education: Patient Medication Summary Completed 06/17/2016 Patient Education: Obesity Completed 06/17/2016 Appointment: Injection 04/04/2016 Patient Education: Patient Medication Summary Completed 04/04/2016 Appointment: Kacy Moses WPtel: [phone] [place] (30 min) Complex 04/03/2016 Patient Education: Patient Medication Summary Completed 04/03/2016 Patient Education: Obesity Completed 04/03/2016 Patient Education: Patient Medication Summary Completed 03/13/2016 Patient Education: Obesity Completed 03/13/2016 Patient Education: Hypertension Completed 03/13/2016 Appointment: [facility]la [facility]el[phone] [place] (15 min) Moderate 02/28/2016 Appointment: Zoya Varela WPtel[facility] (15 min) Moderate 02/01/2016 Appointment: Zoya Varela WPtel[facility] [place] (15 min) Moderate 01/30/2016 Patient Education: [...] Summary Completed 05/15/2015 Appointment: Zoya Varela WPtel: [address] [place], [place] [phone] Follow up 02/06/2015 Patient Education: Patient Medication Summary Completed 02/06/2015 Patient Education: Hypertension Completed 02/06/2015 Appointment: Zoya Varela WPtel: [address] [place], [place] [phone] Sick 01/10/2015 Patient Education: Patient Medication Summary Completed 01/10/2015 Patient Education: Hypertension Completed 01/10/2015 Appointment: Zoya Varela WPtel: [address] [place], [place] [phone] Follow up 07/19/2014 Patient Education: Patient Medication Summary Completed 07/19/2014 Patient Education: Hypertension Completed 07/19/2014 Care Plan: SCREENINGMAMMOGRAPHYDIGITAL LOINC : 45602-2 Ordered 07/19/2014 Appointment: Sick 06/17/2014 Patient Education: Patient Medication Summary Completed 06/17/2014 Appointment: Kacy Moses WPtel: [address] [place], [place] [phone] Diabetic education 04/19/2014 Patient Education: Patient Medication Summary Completed 04/19/2014 Patient Education: Hypertension Completed 04/19/2014 Appointment: Zoya Varela WPtel: [address] [place], [place] [phone] Follow up 04/11/2014 Patient Education: Patient Medication Summary Completed 04/11/2014 Patient Education: Hypertension Completed 04/11/2014 Appointment: Zoya Varela WPtel: [address] [place], [place] [phone] Other 03/10/2014 Patient Education: Patient Medication Summary Completed 03/10/2014 Appointment: Kacy Moses WPtel: [address] [place], [place] [phone] Other 02/02/2014 Patient Education: Patient Medication Summary Completed 02/02/2014 Patient Education: Hypertension Completed 02/02/2014 Appointment: Zoya Varela WPtel: [address] [place], [place] [phone] Follow up 10/25/2013 Patient Education: Patient Medication Summary Completed 10/25/2013 Patient Education: Hypertension Completed 10/25/2013 Appointment: Zoya Varela WPtel: [address] [place], [place] [phone] Follow up 08/24/2013 Patient Education: Patient Medication Summary Completed 08/24/2013 Patient Education: Hypertension Completed 08/24/2013 Appointment: Zoya Varela WPtel: [address] [place], [place] [phone] Follow up 07/26/2013 Patient Education: Patient Medication Summary Completed 07/26/2013 Patient Education: Hypertension Completed 07/26/2013 Appointment: Zoya Varela WPtel: [address] [place], [place] [phone] Other 06/30/2013 Patient Education: Patient Medication Summary Completed 06/30/2013 Patient Education: Hypertension Completed 06/30/2013 Appointment: Kacy Moses WPtel: [address] [place], [place] [phone] Follow up 06/24/2013 Patient Education: Patient Medication Summary Completed 06/24/2013 Patient Education: Hypertension Completed 06/24/2013 Appointment: Zoya Varela WPtel: [address] [place] [phone] Other 03/23/2013 Appointment: Zoya Varela WPtel: [address] [place] [phone] Follow up 12/01/2012 Patient Education: Patient Medication Summary Completed 12/01/2012 Patient Education: Hypertension Completed 12/01/2012 Appointment: Zoya Varela WPtel: [facility] Follow up 10/20/2012 Appointment: Zoya Varela WPtel: [address] [place] [phone] Other 10/19/2012 Patient Education: Patient Medication Summary Completed 10/19/2012 Appointment: Kacy Moses WPtel: [phone] Other 10/07/2012 Patient Education: Hypertension Completed 10/07/2012 Patient Education: Patient Medication Summary Completed 10/07/2012 Appointment: Zoya Varela WPtel: [address] [place], [place] [phone] Other 2012 Patient Education: Patient Medication Summary Completed 2012 Patient Education: High Blood Pressure: Essential Hypertension Completed 2012 Appointment: Zoya Varela WPtel: [address] [place] [phone] Follow up 08/18/2012 Patient Education: Patient Medication Summary Completed 08/18/2012 Patient Education: High Blood Pressure: Essential Hypertension Completed 08/18/2012 Appointment: Zoya Varela WPtel: [address] [place], [place] [phone] Follow up 08/04/2012 Patient Education: Patient Medication Summary Completed 08/04/2012 Patient Education: clonidine 0.1 mg/24 h r Weekly Transderm Patch Monograph Completed 08/04/2012 Patient Education: High Blood Pressure: Essential Hypertension Completed 08/04/2012 Appointment: Zoya Varela WPtel: [address] [place], [place] [phone] Other 07/01/2012 Patient Education: Patient Medication Summary Completed 07/01/2012 Patient Education: High Blood Pressure: Essential Hypertension Completed 07/01/2012 Appointment: Zoya Varela WPtel: [address] [place], [place] [phone] Follow up 05/20/2012 Patient Education: Patient Medication Summary Completed 05/20/2012 Patient Education: High Blood Pressure: Essential Hypertension Completed 05/20/2012 Appointment: Zoya Varela WPtel: [facility] Other 05/11/2012 Appointment: Zoya Varela WPtel: [address] [place] [phone] Follow up 04/20/2012 Patient Education: Patient Medication Summary Completed 04/20/2012 Patient Education: High Blood Pressure: Essential Hypertension Completed 04/20/2012 Appointment: Zoya Varela WPtel: [address] [place], [place] [phone] Other 03/10/2012 Patient Education: Patient Medication Summary Completed 03/10/2012 Patient Education: High Blood Pressure: Essential Hypertension Completed 03/10/2012 Appointment: Zoya Varela WPtel: [address] [place], [place] [phone] Other 02/25/2012 Patient Education: Patient Medication Summary Completed 02/25/2012 Patient Education: High Blood Pressure: Essential Hypertension Completed 02/25/2012 Appointment: Zoya Varela WPtel: [address] [place], [place] [id number] Other 02/19/2012 Patient Education: Patient Medication Summary Completed 02/19/2012 Patient Education: High Blood Pressure: Essential Hypertension Completed 02/19/2012 Appointment: Kacy Moses WPtel: [phone] Other 01/23/2012 Patient Education: Patient Medication Summary Completed 01/23/2012 Patient Education: High Blood Pressure: Essential Hypertension Completed 01/23/2012 Appointment: Zoya Varela WPtel: [facility] Other 01/02/2012 Patient Education: Patient Medication Summary Completed 01/02/2012 Patient Education: High Blood Pressure: Essential Hypertension Completed 01/02/2012 Appointment: Zoya Varela WPtel: [facility] [place] New Patient 12/20/2011 Patient Education: Patient Medication Summary Completed 12/20/2011 Patient Education: High Blood Pressure: Essential Hypertension Completed 12/20/2011 Instructions No Instructions
--- OUTSIDE RECORDS SUMMARY | 2020-05-26 03:38 | XMS REPORT | CCD ---
Author Author Natali Varela Organization [facility] Address [address] [place] [address] Phone Care Team Providers Care Damper Fitter Name Role Phone PP Unavailable CCM Unavailable Summary Purpose Interface Exchange Insurance Providers Payer name Policy type / Coverage type Covered constitution party ID Effective Begin Date Effective End Date WPS Medicare Part B Medicare Part B [id number] Unknown [employer] Medicare Part B [id number] Unknown Family history Mother Diagnosis Age At Onset Liver Failure Unknown Diabetes mellitus Type 2 Unknown Hyperlipidemia Unknown Hypertension Unknown Cancer Unknown Arthritis Unknown Father Diagnosis Age At Onset Liver Failure Unknown Cancer Unknown Social History Social History Element Codes Description Effective Dates Marital status Unknown M arried 12/12/2011 Number of children Unknown 3 12/12/[address]: 3465528 Former smoker quit in 199212/12/2011 Allergies, Adverse [...] Fill Instructions Xanax 0.25 mg tablet RxNorm: 278363 1/2-1 Tablet(s) PO QDAY PRN 11/27/2017 02/24/2018 Active cyclobenzaprine 10 m g tablet RxNorm: 345921 TAKE ONE TABLET BY MO UTH EVERY 8 HOURS NEEDED 11/21/2017 02/08/2018 Active metoprolol tartrate 100 mg tablet RxNorm: 826189 TAKE ONE AND ONE-HALF (1 1/2) TABLETS BY MOUTH EVERY MORNING AND TAKE TWO TABLETS BY MOUTH EVERY EVENING 10/28/2017 02/24/2018 Ac tive tramadol 50 mg tablet RxNorm: 826155 1-2 Tablet(s) PO Q8 as needed 10/28/2017 01/24/2018 Ac tive cyclobenzaprine 10 m g tablet RxNorm: 782268 TAKE ONE TABLET BY MO UTH EVERY 8 HOURS NEEDED 08/27/2017 10/25/2017 Inactive Xanax 0.25 mg tablet RxNorm: 872504 1/2-1 Tablet(s) PO QDAY PRN 08/04/2017 10/31/2017 Inactive cyclobenzaprine 10 m g tablet RxNorm: 056432 TAKE ONE TABLET BY MO UTH EVERY 8 HOURS NEEDED 07/28/2017 08/16/2017 Inactive metoprolol tartrate 100 mg tablet RxNorm: 923994 TAKE ONE AND ONE-HALF (1 & 1/2) TABLET BY MOUTH EVERY MORNING AND TAKE TWO TABLETS BY MOUTH EVERY EVENING 07/28/2017 10/25/2017 In active cyclobenzaprine 10 m g tablet RxNorm: 623568 TAKE ONE TABLET BY MO UTH EVERY 8 HOURS NEEDED 06/30/2017 07/19/2017 Inactive prednisone 10 mg tab lets in a dose pack RxNorm: 301322 1 Tablet(s) PO UD 06/23/2017 06/28/2017 In active 6-5-4-3-2-1 mupirocin 2 % topica l ointment RxNorm: 971093 1 Application TOP BID 06/23/2017 07/02/2017 Inactive Kenalog 40 mg/mL sylvia pension for injection RxNorm: 2278011 Milliliter(s) Inj 06/23/2017 06/23/2017 In active cyclobenzaprine 10 m g tablet RxNorm: 516642 TAKE ONE TABLET BY MO UTH EVERY 8 HOURS NEEDED 06/09/2017 06/28/2017 Inactive meclizine 25 mg tablet RxNorm: 795550 1 Tablet(s) PO Q6 PRN as needed 1/2 - 1 pill every 6 hours as needed for vertigo 06/03/2017 07/14/2017 Inactive atorvastatin 20 mg t ablet RxNorm: 411135 TAKE ONE TABLET BY MO UTH DAILY 05/30/2017 11/25/2017 In active amlodipine 5 mg tablet RxNorm: 472807 TAKE ONE TABLET BY MOUTH DAILY 05/15/2017 10/31/2019 Ac tive cyclobenzaprine 10 m g tablet RxNorm: 602957 TAKE ONE TABLET BY MO UTH EVERY 8 HOURS NEEDED 05/07/2017 05/26/2017 Inactive tramadol 50 mg tablet RxNorm: 170512 1-2 Tablet(s) PO Q8 as needed 04/07/2017 07/04/2017 In active cyclobenzaprine 10 m g tablet RxNorm: 538977 TAKE ONE TABLET BY MO UTH EVERY 8 HOURS NEEDED 04/07/2017 04/26/2017 Inactive Xanax 0.25 mg tablet RxNorm: 217015 1/2-1 Tablet(s) PO QDAY PRN 04/04/2017 06/02/2017 Inactive metoprolol tartrate 100 mg tablet RxNorm: 598339 TAKE ONE AND ONE-HALF (1 & 1/2) TABLET BY MOUTH EVERY MORNING AND TAKE TWO TABLETS BY MOUTH EVERY EVENING 03/28/2017 07/25/2017 In active prednisone 10 mg tab lets in a dose pack RxNorm: 585110 1 Tablet(s) PO UD 03/21/2017 03/26/2017 In active 6-5-4-3-2-1 Kenalog 40 mg/mL sylvia pension for injection RxNorm: 0398587 2 Milliliter(s) Inj 03/21/2017 03/21/2017 In active doxycycline hyclate 100 mg capsule RxNorm: 7076383 1 Capsule(s) PO BID 03/19/2017 03/28/2017 In active cyclobenzaprine 10 m g tablet RxNorm: 755462 TAKE ONE TABLET BY MO UTH EVERY 8 HOURS NEEDED 02/25/2017 03/16/2017 Inactive triamcinolone aceton pineda 0.1 % topical ointment RxNorm: 2641554 1 Application TOP TI D 02/21/2017 02/20/2017 Inactive triamcinolone aceton pineda 0.1 % topical ointment RxNorm: 8834983 1 Application TOP TI D 02/21/2017 03/02/2017 Inactive doxazosin 4 mg tablet RxNorm: 866541 TAKE ONE AND ONE-HALF (1 & 1/2) TABLET B Y MOUTH BY MOUTH TWO TIMES A DAY 02/14/2017 01/09/2018 Active cyclobenzaprine 10 m g tablet RxNorm: 046333 TAKE ONE TABLET BY MO UTH EVERY 8 HOURS NEEDED 01/27/2017 02/15/2017 Inactive ammonium lactate 12 % topical cream RxNorm: 073794 1 Application TOP BID 01/14/2017 02/12/2017 In active dispense one bottle of the cream potassium chloride E R 10 mEq tablet,extended release RxNorm: 023354 1 Tablet(s) PO PRN as needed with lasix 11/13/2016 No Stop Date Active prn swelling furosemide 20 mg tablet RxNorm: 900032 1 Tablet(s) PO daily as needed edema 11/13/2016 01/11/2017 In active metoprolol tartrate 100 mg tablet RxNorm: 801501 TAKE ONE AND ONE-HALF (1 & 1/2) TABLET BY MOUTH EVERY MORNING AND TAKE TWO TABLETS BY MOUTH EVERY EVENING 11/01/2016 03/27/2017 In active atorvastatin 20 mg t ablet RxNorm: 781784 TAKE ONE TABLET BY MO UTH DAILY 10/31/2016 04/28/2017 In active cyclobenzaprine 10 m g tablet RxNorm: 805297 TAKE ONE TABLET BY MO UTH EVERY 8 HOURS NEEDED 10/25/2016 12/03/2016 Inactive Lyrica 25 mg capsule RxNorm: 156132 1 Tablet(s) PO BID 09/23/2016 01/13/2017 Inactive Lyrica 50 mg capsule RxNorm: 961322 1 Capsule(s) PO BID 09/16/2016 01/13/2017 Inactive amlodipine 5 mg tablet RxNorm: 617835 Tablet(s) TAKE ONE TABLET BY MOUTH DAILY 08/28/2016 05/14/2017 In active cyclobenzaprine 10 m g tablet RxNorm: 234056 TAKE ONE TABLET BY MO UT EVERY 8 HOURS NEEDED 08/05/2016 09/13/2016 Inactive Xanax 0.25 mg tablet RxNorm: 442275 1/2-1 Tablet(s) PO QDAY PRN 07/16/2016 04/03/2017 Inactive amlodipine 5 mg tablet RxNorm: 147960 TAKE ONE TABLET BY MOUTH DAILY 06/28/2016 08/26/2016 In active metoprolol tartrate 100 mg tablet RxNorm: 797815 Tablet(s) TAKE ONE AN D ONE-HALF (1 & 1/2) TABLET BY MOUTH EVERY MORNING AND TAKE TWO TABLETS BY MOUTH EVERY EVENING 05/02/2016 05/02/2016 Inactive metoprolol tartrate 100 mg tablet RxNorm: 207967 Tablet(s) PO TAKE ONE AND ONE-HALF (1 & 1/2) TABLET BY MOUTH EVERY MORNING AND TAKE TWO TABLETS BY MOUTH EVERY EVENING 05/02/2016 05/01/2016 Inactive metoprolol tartrate 100 mg tablet RxNorm: 499589 Tablet(s) PO TAKE ONE AND ONE-HALF (1 & 1/2) TABLET BY MOUTH EVERY MORNING AND TAKE TWO TABLETS BY MOUTH EVERY EVENING 05/02/2016 10/28/2016 Inactive atorvastatin 20 mg t ablet RxNorm: 523100 TAKE ONE TABLET BY MO UTH DAILY 04/25/2016 10/21/2016 In active tramadol 50 mg tablet RxNorm: 353532 1-2 Tablet(s) PO Q8 as needed 04/25/2016 10/27/2017 In active cyclobenzaprine 10 m g tablet RxNorm: 773305 Tablet(s) PO TAKE ONE TABLET BY MOUTH EVERY 8 HOURS NEEDED 04/18/2016 06/16/2016 Inactive Kenalog 40 mg/mL sylvia pension for injection RxNorm: 0795775 1 Milliliter(s) Inj 04/04/2016 04/04/2016 In active Phenergan with Codei ne Syrup RxNorm: PO 04/03/2016 No Stop Date Active Zithromax Z-Kush 250 mg tablet RxNorm: 351830 1 Tablet(s) PO UD 04/03/2016 04/07/2016 Inactive 2 tabs on day 1 then 1 tab daily on days 2-5 amlodipine 5 mg tablet RxNorm: 848148 TAKE ONE TABLET BY MOUTH DAILY 03/27/2016 06/24/2016 In active Flexeril 10 mg tablet RxNorm: 804867 TAKE ONE TABLET BY MOUTH EVERY 8 HOURS A S NEEDED 03/14/2016 04/02/2016 Inactive Vitamin B-12 ER 2,00 0 mcg tablet,extended release RxNorm: 772892 1 Tablet(s) PO daily 03/13/2016 No Stop Date Active Vitamin B-12 ER 2,00 0 mcg tablet,extended release RxNorm: 827238 1 Tablet(s) PO daily 03/13/2016 No Stop Date Active gabapentin 100 mg ca psule RxNorm: 622513 1 Capsule(s) PO BID 03/13/2016 09/15/2016 Inactive Flexeril 10 mg tablet RxNorm: 510930 Tablet(s) TAKE ONE TABLET BY MOUTH EVERY 8 HOURS NEEDED 02/08/2016 02/27/2016 Inactive Xanax 0.25 mg tablet RxNorm: 491219 1/2-1 Tablet(s) PO QDAY PRN 02/08/2016 07/15/2016 Inactive amlodipine 5 mg tablet RxNorm: 101001 1 Tablet(s) PO daily 02/06/2016 03/26/2016 Inactive furosemide 20 mg tablet RxNorm: 389933 1 Tablet(s) PO daily 01/30/2016 06/16/2016 Inactive amlodipine 10 mg tablet RxNorm: 938772 1/2 Tablet(s) PO daily 01/30/2016 02/05/2016 Inactive doxazosin 4 mg tablet RxNorm: 599998 1.5 Tablet(s) PO BID 01/30/2016 01/23/2017 Inactive Flexeril 10 mg tablet RxNorm: 274268 TAKE ONE TABLET BY MOUTH EVERY 8 HOURS A S NEEDED 01/10/2016 01/29/2016 Inactive potassium chloride E R 10 mEq tablet,extended release RxNorm: 480445 1 Tablet(s) PO PRN as needed with lasix 12/25/2015 06/16/2016 Inactive prn swelling amlodipine 10 mg tablet RxNorm: 805136 TAKE ONE TABLET BY MOUTH EVERY MORNING 12/25/2015 12/24/2015 In active amlodipine 10 mg tablet RxNorm: 161024 TAKE ONE TABLET BY MOUTH EVERY MORNING 12/25/2015 01/29/2016 In active furosemide 20 mg tablet RxNorm: 955376 1/2 Tablet(s) PO daily as needed edema 12/21/2015 01/19/2016 In active pt needs to take 10meq potassium on days she takes the lasix metoprolol tartrate 100 mg tablet RxNorm: 171272 TAKE ONE AND ONE-HALF (1 & 1/2) TABLET BY MOUTH EVERY MORNING AND TAKE TWO TABLETS BY MOUTH EVERY EVENING 11/08/2015 12/07/2015 In active Flonase Allergy Reli ef 50 mcg/actuation nasal spray,suspension RxNorm: [place] as needed PLACE 2 SPRAYS IN EACH NOSTRIL DAILY 10/09/2015 02/05/2016 Inactive Flexeril 10 mg tablet RxNorm: 184724 1 Tablet(s) PO TID PRN TAKE ONE TABLET B Y MOUTH EVERY 8 HOURS NEEDED 10/09/2015 12/07/2015 Inactive alprazolam 0.5 mg ta blet RxNorm: 685291 TAKE ONE TABLET BY MO [facility] AT BEDTIME NEEDED FOR ANXIETY 08/29/2015 11/23/2015 Inactive Flonase Allergy Reli ef 50 mcg/actuation nasal spray,suspension RxNorm: PLACE 2 SPRAYS IN EACH NOSTRIL DAILY 07/06/2015 10/08/2015 Inactive Kenalog 40 mg/mL sylvia pension for injection RxNorm: 5414183 Milliliter(s) Inj 06/12/2015 06/12/2015 In active prednisone 10 mg tab lets in a dose pack RxNorm: 446820 1 Tablet(s) PO UD 06/12/2015 06/17/2015 In active 6-5-4-3-2-1 acyclovir 800 mg tablet RxNorm: 663025 1 Tablet(s) PO TID 06/12/2015 06/21/2015 Inactive Xanax 0.25 mg tablet RxNorm: 201037 1/2-1 Tablet(s) PO QDAY PRN 05/15/2015 02/07/2016 Inactive Flonase Allergy Reli ef 50 mcg/actuation nasal spray,suspension RxNorm: 2 [place] NASAL daily 05/15/2015 06/13/2015 Inactive Kenalog 40 mg/mL sylvia pension for injection RxNorm: 4923897 Milliliter(s) Inj 05/15/2015 05/15/2015 In active metoprolol tartrate 100 mg tablet RxNorm: 769864 TAKE ONE AND ONE-HALF (1 & 1/2) TABLET BY MOUTH EVERY MORNING AND TAKE TWO TABLETS BY MOUTH EVERY EVENING 05/07/2015 06/05/2015 In active metoprolol tartrate 100 mg tablet RxNorm: 494204 TAKE ONE AND ONE-HALF (1 & 1/2) TABLET BY MOUTH EVERY MORNING AND TAKE TWO TABLETS BY MOUTH EVERY EVENING 04/05/2015 05/04/2015 In active amlodipine 10 mg tablet RxNorm: 382151 TAKE ONE TABLET BY MOUTH EVERY MORNING 03/10/2015 12/04/2015 In active alprazolam 0.5 mg ta blet RxNorm: 522447 TAKE ONE TABLET BY MO UTH EVERY NIGHT AT BEDTIME NEEDED FOR ANXIETY 02/23/2015 03/24/2015 Inactive (Response to an electronic controlled substance refill request - RxReferenceNumber: [id number]) alprazolam 0.5 mg ta blet RxNorm: 822758 1 Tablet(s) PO QHS as needed anxiety 02/23/2015 08/29/2015 In active (Response to an electronic controlled salas bstance refill request - RxReferenceNumber: [id number]) doxazosin 4 mg tablet RxNorm: 388208 TAKE ONE TABLET BY MOUTH TWICE A DAY 02/13/2015 01/29/2016 In active atorvastatin 20 mg t ablet RxNorm: 807802 TAKE ONE TABLET BY MO UTH EVERY DAY 01/19/2015 07/17/2015 In active atorvastatin 20 mg t ablet RxNorm: 245640 Tablet(s) TAKE ONE TA BLET BY MOUTH EVERY DAY 01/19/2015 01/18/2015 Inactive [SAVINGS FOR NON-COVERED DRUGS -- BIN:00 6525, PCN: ASPROD1, Group: XXXXX, ID# [id number], Questions: . THIS IS NOT INSURANCE.] Maxzide-25mg 37.5 mg -25 mg tablet RxNorm: 00777 1 Tablet(s) PO daily 01/10/2015 10/08/2015 Inactive [SAVINGS FOR NON-COVERED DRUGS -- BIN:00 3585, PCN: ASPROD1, Group: XXXXX, ID# [id number], Questions: . THIS IS NOT INSURANCE.] metoprolol tartrate 100 mg tablet RxNorm: 973594 TAKE ONE AND ONE-HALF (1 & 1/2) TABLET BY MOUTH EVERY MORNING AND TAKE TWO TABLETS BY MOUTH EVERY EVENING 12/05/2014 01/03/2015 In active Flexeril 10 mg tablet RxNorm: 639732 TAKE ONE TABLET BY MOUTH EVERY 8 HOURS A S NEEDED 10/31/2014 06/27/2015 Inactive alprazolam 0.5 mg ta blet RxNorm: 405040 1 Tablet(s) PO QHS TA KE ONE TABLET BY MOUTH EVERY NIGHT AT BEDTIME AND NEEDED FOR PANIC ATTACKS 10/21/2014 10/23/2014 Inactive (Appended: Controlled substance eRx refi ll - RxReferenceNumber: [id number]) alprazolam 0.5 mg ta blet RxNorm: 086518 TAKE ONE TABLET BY MO UTH EVERY NIGHT AT BEDTIME NEEDED FOR ANXIETY 10/20/2014 11/18/2014 Inactive (Response to an electronic controlled substance refill request - RxReferenceNumber: [id number]) amlodipine 10 mg tablet RxNorm: 845771 1 Tablet(s) PO QAM 09/09/2014 03/07/2015 Inactive now taking full tab [SAVINGS FOR UNINSURED PATIENTS -- BIN:444743, PCN: [id number], Group: [id number], ID# [id number], Process claim through [employer], for questions: . THIS IS NOT INSURANCE.] metoprolol tartrate 100 mg tablet RxNorm: 934865 TAKE ONE AND ONE-HALF (1 & 1/2) TABLET BY MOUTH EVERY MORNING AND TAKE TWO TABLETS BY MOUTH EVERY EVENING 09/03/2014 10/02/2014 In active alprazolam 0.5 mg ta blet RxNorm: 756426 TAKE ONE TABLET BY MO UTH EVERY NIGHT AT BEDTIME AND NEEDED FOR PANIC ATTACKS 08/29/2014 09/12/2014 Inactive (Response to an electronic controlled substance refill request - RxReferenceNumber: [id number]) Zithromax Z-Kush 250 mg tablet RxNorm: 426090 1 Tablet(s) PO UD 07/26/2014 07/25/2014 Inactive 2 tabs on day 1 then 1 tab daily on days 2-5 Zithromax Z-Kush 250 mg tablet RxNorm: 997458 1 Tablet(s) PO UD 07/26/2014 07/30/2014 Inactive 2 tabs on day 1 then 1 tab daily on days 2-5 alprazolam 0.5 mg ta blet RxNorm: 610416 Tablet(s) PO TAKE ONE TABLET BY MOUTH EVERY NIGHT AT BEDTIME AND NEEDED FOR PANIC ATTACKS 07/08/2014 08/30/2014 Inactive (Appended: Controlled substance eRx refill - RxReferenceNumber: [id number]) atorvastatin 20 mg t ablet RxNorm: 120010 TAKE ONE TABLET BY [facility] EVERY DAY 04/25/2014 01/18/2015 In active Carafate 1 gram tablet RxNorm: 173708 Tablet(s) PO TAKE ONE TABLET BY MOUTH FO UR TIMES A DAY 04/14/2014 10/08/2015 Inactive Fish Oil 1,000 mg ca psule RxNorm: 1 Capsule(s) PO TID 04/13/2014 10/08/2015 Inactive Flexeril 10 mg tablet RxNorm: 994687 1 Tablet(s) PO Q8 PRN 04/01/2014 04/10/2014 Inactive Carafate 1 gram tablet RxNorm: 664335 1 Tablet(s) PO QID 03/10/2014 04/08/2014 Inactive chlordiazepoxide-cli dinium 5 mg-2.5 mg capsule RxNorm: 305254 1 Capsule(s) PO TID P RN 03/10/2014 04/10/2014 Inactive doxazosin 4 mg tablet RxNorm: 528382 1 Tablet(s) PO BID 02/02/2014 02/12/2015 Inactive Kenalog 40 mg/mL sylvia pension for injection RxNorm: 0263950 Milliliter(s) Inj 02/02/2014 02/02/2014 In active atorvastatin 20 mg t ablet RxNorm: 245703 Tablet(s) PO TAKE ONE TABLET BY MOUTH EVERY DAY 01/10/2014 04/24/2014 Inactive alprazolam 0.5 mg ta blet RxNorm: 710843 Tablet(s) PO TAKE ONE TABLET BY MOUTH EVERY NIGHT AT BEDTIME AND NEEDED FOR PANIC ATTACKS 01/10/2014 07/07/2014 Inactive (Appended: Controlled substance eRx refill - RxReferenceNumber: [id number]) alprazolam 0.5 mg ta blet RxNorm: 187031 1 Tablet(s) PO QHS TA KE ONE TABLET BY MOUTH EVERY NIGHT AT BEDTIME AND NEEDED FOR PANIC ATTACKS 01/10/2014 10/20/2014 Inactive (Appended: Controlled substance eRx refi ll - RxReferenceNumber: [id number]) alprazolam 0.5 mg ta blet RxNorm: 071186 Tablet(s) PO TAKE ONE TABLET BY MOUTH EVERY NIGHT AT BEDTIME AND NEEDED FOR PANIC ATTACKS 01/10/2014 01/09/2014 Inactive (Appended: Controlled substance eRx refill - RxReferenceNumber: [id number]) Carafate 1 gram tablet RxNorm: 535625 1 Tablet(s) PO QID 12/16/2013 01/14/2014 Inactive Nexium 40 mg capsule ,delayed release RxNorm: 891114 Capsule(s) PO TAKE ON E CAPSULE BY MOUTH EVERY DAY 11/25/2013 03/12/2016 Inactive doxazosin 4 mg tablet RxNorm: 326297 1/2 Tablet(s) PO QPM 10/21/2013 10/20/2013 Inactive alprazolam 0.5 mg ta blet RxNorm: 511926 1 Tablet(s) PO as dir ected q hs and prn panic attacks 10/18/2013 01/10/2014 Inactive doxazosin 4 mg tablet RxNorm: 531812 1 q am 1/2 q pm Tablet(s) PO 09/21/2013 02/01/2014 Inactive doxazosin 4 mg tablet RxNorm: 505853 1 q am 1/2 q pm Tablet(s) PO 09/21/2013 09/20/2013 Inactive amlodipine 10 mg tablet RxNorm: 309621 1 Tablet(s) PO QAM 08/30/2013 08/24/2014 Inactive now taking full tab metoprolol tartrate 100 mg tablet RxNorm: 788143 2 Tablet(s) PO QPM 08/24/2013 10/22/2013 Inactive alprazolam 0.5 mg ta blet RxNorm: 530181 1 Tablet(s) PO as dir ected q hs and prn panic attacks 07/29/2013 10/17/2013 Inactive Benicar 20 mg tablet RxNorm: 697586 1 Tablet(s) PO daily 07/26/2013 08/09/2013 Inactive amlodipine 10 mg tablet RxNorm: 493006 1 Tablet(s) PO QAM 07/19/2013 08/29/2013 Inactive cyclobenzaprine 5 mg tablet RxNorm: 742381 1 Tablet(s) PO TID MO N one pill every 8 hours as needed for muscle spasms. 07/19/2013 03/31/2014 Inactive Kenalog 40 mg/mL Sylvia p for Injection RxNorm: 8963188 1 Milliliter(s) Inj 06/30/2013 06/30/2013 In active prednisone 10 mg tab lets in a dose pack RxNorm: 941441 1 Tablet(s) PO as doc tor directed take steroid taper as directed on box 06/30/2013 07/09/2013 Inactive disp ense one PACK meclizine 25 mg tablet RxNorm: 088879 1 Tablet(s) PO Q6 PRN 1/2 - 1 pill every 6 hours as needed for vertigo 06/30/2013 08/10/2013 Inactive metoprolol tartrate 100 mg tablet RxNorm: 707044 1.5 Tablet(s) PO BID 06/30/2013 08/23/2013 In active metoprolol tartrate 100 mg tablet RxNorm: 135072 1 Tablet(s) PO BID 06/24/2013 06/29/2013 Inactive metoprolol tartrate 100 mg tablet RxNorm: 453781 1 Tablet(s) PO daily 06/17/2013 06/23/2013 In active metoprolol tartrate 100 mg tablet RxNorm: 901561 1 Tablet(s) PO daily 06/17/2013 06/16/2013 In active Toprol XL 100 mg tab let,extended release RxNorm: 271948 Tablet(s) PO TAKE ONE AND ONE- HALF TABLET BY MOUTH EVERY MORNING AND ONE TABLET IN THE EVENING 05/05/2013 06/22/2013 In active alprazolam 0.5 mg ta blet RxNorm: 036303 1 Tablet(s) PO as dir ected q hs and prn panic attacks 04/06/2013 07/28/2013 Inactive doxazosin 4 mg tablet RxNorm: 370162 Tablet(s) PO TAKE ONE TABLET BY MOUTH EV KANE04/01/2013 09/20/2013 Inactive Toprol XL 100 mg tab let,extended release RxNorm: 456357 Tablet(s) PO TAKE ONE AND ONE- HALF TABLET BY MOUTH EVERY MORNING AND ONE TABLET IN THE EVENING 12/25/2012 05/04/2013 In active Lasix 20 mg tablet RxNorm: 405103 1 Tablet(s) PO QDAY PRN Take 1 tab daily x 3 days then as needed 12/02/2012 04/10/2014 Inactive potassium chloride E R 20 mEq tablet,extended release(part/cryst) RxNorm: 196597 1 Tablet(s) PO PRN 12/02/2012 10/04/2013 Inactive prn swelling alprazolam 0.5 mg ta blet RxNorm: 646123 1 Tablet(s) PO as dir ected q hs and prn panic attacks 12/01/2012 04/05/2013 Inactive amlodipine 10 mg tablet RxNorm: 278471 1/2 Tablet(s) PO QAM 12/01/2012 07/18/2013 Inactive fluconazole 150 mg t ablet RxNorm: 633071 1 Tablet(s) PO daily 11/16/2012 11/20/2012 Inactive fluconazole 150 mg t ablet RxNorm: 637926 1 Tablet(s) PO daily 11/16/2012 11/15/2012 Inactive Nexium 40 mg capsule ,delayed release RxNorm: 128161 1 Capsule(s) PO daily 10/23/2012 11/16/2013 In active acyclovir 400 mg tablet RxNorm: 537388 1 Tablet(s) PO TID 10/19/2012 10/28/2012 Inactive chlordiazepoxide-cli dinium 5 mg-2.5 mg capsule RxNorm: 877875 1 Capsule(s) PO TID P RN 2012 12/22/2013 Inactive Voltaren 1 % Topical Gel RxNorm: 844630 4 Gram(s) TOP QID pt is to use 2 grams to each hand and 4 grams to knees. 08/18/2012 04/10/2014 Inactive doxazosin 4 mg tablet RxNorm: 831504 1 Tablet(s) PO QAM 08/18/2012 10/16/2012 Inactive atorvastatin 20 mg t ablet RxNorm: 772098 1 Tablet(s) PO HS 08/12/2012 08/11/2012 Inactive may have #90 x3 infection atorvastatin 20 mg t ablet RxNorm: 814100 1 Tablet(s) PO HS 08/12/2012 09/05/2013 Inactive may have #90 x3 infection doxazosin 4 mg tablet RxNorm: 548859 1 Tablet(s) PO daily 08/11/2012 08/17/2012 Inactive clonidine 0.1 mg/24 hr Weekly Transderm Patch RxNorm: 967968 1 Patch TD QW 08/04/2012 08/10/2012 In active Influenza Virus Vacc ine 0.5 mL RxNorm: IM 08/04/2012 08/04/2012 Inactive cyclobenzaprine 5 mg tablet RxNorm: 856575 1 Tablet(s) PO TID MO N one pill every 8 hours as needed for muscle spasms. 07/13/2012 11/09/2012 Inactive cyclobenzaprine 5 mg tablet RxNorm: 657609 1 Tablet(s) PO TID MO N one pill every 8 hours as needed for muscle spasms. 07/09/2012 07/12/2012 Inactive gabapentin 100 mg ca psule RxNorm: 092997 1 Capsule(s) PO TID 07/01/2012 12/01/2012 Inactive atorvastatin 20 mg t ablet RxNorm: 133977 1/2 Tablet(s) PO daily 07/01/2012 08/11/2012 Inactive may of 90 day supply if cheaper Toprol XL 100 mg tab let,extended release RxNorm: 890636 Tablet(s) PO BID 11/2 in am and 1 in evening 07/01/2012 06/16/2013 Inactive 1 1/2 q am 1 in polly alprazolam 0.5 mg ta blet RxNorm: 040622 1 Tablet(s) PO as dir ected q hs and prn panic attacks 06/24/2012 11/30/2012 Inactive amlodipine 10 mg tablet RxNorm: 312066 1 Tablet(s) PO QAM 06/19/2012 11/30/2012 Inactive benazepril 20 mg tablet RxNorm: 667825 1 Tablet(s) PO daily 06/19/2012 06/13/2013 Inactive one daily at noon Toprol XL 100 mg tab let,extended release RxNorm: 915981 Tablet(s) PO BID 06/19/2012 06/30/2012 In active 1 1/2 q am 1 in polly Toprol XL 100 mg tab let,extended release RxNorm: 002357 1 1/2 Tablet(s) PO BI D 04/27/2012 06/18/2012 In active 90 or 30 day supply, whatever ins will a llow Lotrel 10 mg-20 mg Cap RxNorm: 937860 1 Capsule(s) PO daily 04/20/2012 08/04/2012 Inactive estradiol 0.5 mg Tab RxNorm: 427669 1 Tablet(s) PO BID 04/20/2012 12/02/2012 Inactive Toprol XL 100 mg 24 hr Tab RxNorm: 456072 1 1/2 Tablet(s) PO BID 04/14/2012 04/26/2012 Inactive Toprol XL 100 mg 24 hr Tab RxNorm: 751235 Tablet(s) PO daily 03/31/2012 04/13/2012 Inactive new directions: one q am 1/2 every evepl ease put on file until she needs filled Lipitor 10 mg tablet RxNorm: 244527 1 Tablet(s) PO daily 03/31/2012 12/02/2012 Inactive may of day supply if cheaper Toprol XL 100 mg 24 hr Tab RxNorm: 395948 1 Tablet(s) PO daily 03/11/2012 03/30/2012 Inactive Boniva 150 mg Tab RxNorm: 655507 1 Tablet(s) PO weekly 02/19/2012 12/02/2012 Inactive Detrol LA 4 mg capsu le,extended release RxNorm: 785326 1 Capsule(s) PO daily 02/19/2012 03/12/2016 In active doxycycline hyclate 100 mg Tab RxNorm: 463996 1 Tablet(s) PO BID 01/23/2012 02/25/2012 Inactive Rocephin 500 mg Solu tion for Injection RxNorm: 859543 1 Milliliter(s) Inj 01/23/2012 01/23/2012 In active Kenalog 40 mg/mL Sylvia p for Injection RxNorm: 9445170 1 Milliliter(s) Inj 01/23/2012 01/23/2012 In active cyclobenzaprine 5 mg tablet RxNorm: 947040 1 Tablet(s) PO TID MO N one pill every 8 hours as needed for muscle spasms. 12/20/2011 04/17/2012 Inactive clonidine 0.1 mg Tab RxNorm: 510137 1 Tablet(s) PO BID 12/20/2011 02/25/2012 Inactive Vitamin D3 5,000 uni t tablet RxNorm: 717473 1 Tablet(s) PO daily No Start Date Active Nexium 24HR 22.3 mg capsule,delayed release RxNorm: 674641 1 Capsule(s) PO daily as needed No Start Date Active Fish Oil 360 mg-1,20 0 mg capsule,delayed release RxNorm: 1 Capsule(s) PO daily No Start Date Active Lotrel 10 mg-20 mg Cap RxNorm: 110752 1 Capsule(s) PO daily No Start Date 02/24/2012 Inactive benazepril 20 mg tablet RxNorm: 979003 1 Tablet(s) PO No Start Date 06/18/2012 Inactive one daily at noon Vimovo 500 mg-20 mg multiphase, immed & delay rel Tab RxNorm: 011083 1 Tablet(s) PO BID No Start Date 12/01/2012 Inactive B12 1000 mcg RxNorm: 2 IM daily No Start Date 03/12/2016 Inactive Fish Oil 1,000 mg ca psule RxNorm: 1 Capsule(s) PO BID No Start Date 04/12/2014 Inactive Benicar 40 mg tablet RxNorm: 741332 1 Tablet(s) PO daily No Start Date 10/24/2013 Inactive Carafate 1 gram tablet RxNorm: 489354 Oral No Start Date 12/15/2013 Inactive Vitamin B-12 1,000 m cg tablet RxNorm: 568193 1 Tablet(s) PO daily No Start Date 03/12/2016 Inactive amlodipine 10 mg tablet RxNorm: 899268 1 Tablet(s) PO daily No Start Date 06/18/2012 Inactive Phenergan VC-Codeine 6.25 mg-5 mg-10 mg/5 mL Syrup RxNorm: 793197 5-10 Milliliter(s) PO Q6 PRN No Start Date 04/10/2014 Inactive Celebrex 200 mg capsule RxNorm: 835515 1 Capsule(s) PO daily No Start Date 10/08/2015 Inactive Percocet 5 mg-325 mg tablet RxNorm: 5958195 1-2 Tablet(s) PO Q6 PRN No Start Date 06/16/2014 Inactive Exforge 10 mg-320 mg Tab RxNorm: 642727 1 Tablet(s) PO daily sample No Start Date 05/20/2012 Inactive Lipitor 10 mg Tab RxNorm: 239785 1 Tablet(s) PO daily No Start Date 03/30/2012 Inactive tramadol 50 mg tablet RxNorm: 324447 1-2 Tablet(s) PO Q8 as needed No Start Date 04/24/2016 Inactive Lasix 20 mg tablet RxNorm: 572804 1 Tablet(s) PO QDAY PRN Take 1 tab daily x 3 days then as needed No Start Date 12/01/2012 Inactive potassium chloride E R 20 mEq tablet,extended release(part/cryst) RxNorm: 1109132 1 Tablet(s) PO QDAY PRN No Start Ochoa e 12/01/2012 Inactive Toprol XL 100 mg 24 hr Tab RxNorm: 147938 1 Tablet(s) PO daily No Start Date 03/10/2012 Inactive MIDRIN 325 mg-65 mg- 100 mg Cap RxNorm: 753277 1 Capsule(s) PO PRN No Start Date 05/20/2012 Inactive Nexium 40 mg capsule ,delayed release RxNorm: 223032 1 Capsule(s) PO daily No Start Date 10/22/2012 Inactive Detrol LA 4 mg 24 hr Cap RxNorm: 580384 Oral No S tart Date 02/18/2012 Inactive Boniva 150 mg Tab RxNorm: 238405 Oral No Start Date 02/18/2012 Inactive Flexeril 10 mg tablet RxNorm: 898092 1 Tablet(s) PO Q8 PRN No Start Date 03/31/2014 Inactive clidinium bromide Oral RxNorm: Oral No Start Date 12/01/2012 Inactive alprazolam 0.5 mg ta blet RxNorm: 011332 1 Tablet(s) PO as dir ected q hs and prn panic attacks No Start Date 06/23/2012 Inactive chlordiazepoxide Oral RxNorm: Oral No Start Date 12/01/2012 Inactive metoprolol tartrate 100 mg tablet RxNorm: 872948 Tablet(s) PO TAKE ONE AND ONE-HALF (1 & 1/2) TABLET BY MOUTH EVERY MORNING AND TAKE TWO TABLETS BY MOUTH EVERY EVENING No Start Date 08/03/2014 Inactive furosemide 20 mg tablet RxNorm: 177511 1 Tablet(s) PO daily No Start Date 01/29/2016 Inactive Calcium Oral RxNorm: Oral No Start Date 03/12 Inactive Nasonex 50 mcg/actua tion Questa RxNorm: 870909 1 Questa NASAL BID No Start Date 04/10/2014 Inactive Medication Administered Medication Codes Instruc tions Start Date Status Kenalog 40 mg/mL suspension for injection RxNorm: 9320112 Milliliter 06/23/2017 No longer Active Kenalog 40 mg/mL suspension for injection RxNorm: 5779211 2Milliliter 03/21/2017 N o longer Active Kenalog 40 mg/mL suspension for injection RxNorm: 8813932 1Milliliter 04/04/2016 N o longer Active Kenalog 40 mg/mL suspension for injection RxNorm: 3603880 Milliliter 06/12/2015 No longer Active Kenalog 40 mg/mL suspension for injection RxNorm: 6386864 Milliliter 05/15/2015 No longer Active Kenalog 40 mg/mL suspension for injection RxNorm: 8698171 Milliliter 02/02/2014 No longer Active Kenalog 40 mg/mL Susp for Injection RxNorm: 6086437 1Milliliter 06/30/2013 N o longer Active Influenza Virus Vaccine 0.5 mL RxNorm: 08/04/2012 No longer Active Rocephin 500 mg Solution for Injection RxNorm: 238931 1Milliliter 01/23/2012 N o longer Active Kenalog 40 mg/mL Susp for Injection RxNorm: 9276146 1Milliliter 01/23/2012 N o longer Active Immunizations [...] Ord2 RDW 14.8 % 06/05/2015 Comp Metabolic Rsc077 NA 138 mEq/L 06/05/2015 Comp Metabolic Nvk276 K 4.3 mEq/L 06/05/2015 Comp Metabolic Rcz220 CL 100 mEq/L 06/05/2015 Comp Metabolic Awh474 CO2 29.0 mEq/L 06/05/2015 Comp Metabolic Llp097 AN ION GAP 13 06/05/2015 Comp Metabolic Lgv635 GL UCOSE 85 mg/dL 06/05/2015 Comp Metabolic Txs903 Cr eat 0.7 mg/dL 06/05/2015 Comp Metabolic Yea534 eG FR 94 ml/min/1.73m2 06/05 Comp Metabolic Yzk457 BUN 16 mg/dL 06/05/2015 Comp Metabolic Lff116 B/ C Ratio 24.2 Ratio 06/05/2015 Comp Metabolic Mlp244 CA LCIUM 9.5 mg/dL 06/05/2015 Comp Metabolic Vdk930 AL K PHOS 69 U/L 06/05/2015 Comp Metabolic Fxu863 T(SGOT) 22 U/L 06/05/2015 Comp Metabolic Oyx617 AL T(SGPT) 26 U/L 06/05/2015 Comp Metabolic Wvf143 BI LI T 0.5 mg/dL 06/05/2015 Comp Metabolic Acv527 AL BUMIN 4.2 g/dL 06/05/2015 Comp Metabolic Lfe416 TP RO 6.1 g/dL 06/05/2015 Comp Metabolic Cjt444 GL OB 1.9 g/dL 06/05/2015 Comp Metabolic Wsh348 A/ G Ratio 2.2 Ratio 06/05/2015 Comp Metabolic Vjf183 Os mo 276 mOsmo 06/05/2015 Tsh Ord6 hTSH II 1.99 uIU/mL 06/05/2015 Lipid Ord30 CHOL 171 mg/dL 06/05/2015 Lipid Ord30 HDL 55.0 mg/dl 06/05/2015 Lipid Ord30 TRIG 178 mg/dL 06/05/2015 Lipid Ord30 LDL 80 mg/dL 06/05/2015 Lipid Ord30 C/HDL 3.1 Ratio 06/05/2015 %Hba1C Jsu659 % HbA1c 69741-4 5.7 % 06/05/2015 %Hba1C Bli943 Gluc Ave 117 mg/dL 06/05/2015 A1C HPLC 6561620 A1C HPLC 87404-0 5.6 % 07/15/2014 GFR CALC 0191870 GFR AA >60 ML/MIN 07/15/2014 GFR CALC 3871643 GFR NON -AA >60 ML/MIN 07/15/2014 CHEM 14 3963622 AST 21 U/L 07/15/2014 CHEM 14 4830486 ALT 23 IU/L 07/15/2014 CHEM 14 9521465 BUN 14 MG/DL 07/15/2014 CHEM 14 1213189 ALBUMIN 4.2 GM/DL 07/15/2014 CHEM 14 1157673 CHLORIDE 104 MMOL/L 07/15/2014 CHEM 14 3337070 BILI TOT 0.4 MG/DL 07/15/2014 CHEM 14 4287909 ALK PHOS 88 U/L 07/15/2014 CHEM 14 1025995 SODIUM 140 MMOL/L 07/15/2014 CHEM 14 4212331 CREATINI NE 0.63 MG/DL 07/15/2014 CHEM 14 7130049 CALCIUM 9.4 MG/DL 07/15/2014 CHEM 14 8218929 POTASSIUM 4.0 MMOL/L 07/15/2014 CHEM 14 6702631 PROT TOT 6.4 GM/DL 07/15/2014 CHEM 14 1611590 GLUCOSE 90 MG/DL 07/15/2014 CHEM 14 0450336 BICARB 30 MMOL/L 07/15/2014 CHEM 14 1530116 ANION GAP 6 MEQ/L 07/15/2014 A1C HPLC 6159984 A1C HPLC 20655-0 6.0 % 04/13/2014 TSH 2174713 TSH 1.875 uIU/ML 04/12/2014 CHEM 14 0993871 AST 17 U/L 04/12/2014 CHEM 14 7393751 ALT 20 IU/L 04/12/2014 CHEM 14 2883319 BUN 14 MG/DL 04/12/2014 CHEM 14 4996326 ALBUMIN 4.2 GM/DL 04/12/2014 CHEM 14 2903563 CHLORIDE 104 MMOL/L 04/12/2014 CHEM 14 3241384 BILI TOT 0.3 MG/DL 04/12/2014 CHEM 14 3295849 ALK PHOS 80 U/L 04/12/2014 CHEM 14 0346295 SODIUM 141 MMOL/L 04/12/2014 CHEM 14 6615759 CREATINI NE 0.62 MG/DL 04/12/2014 CHEM 14 2030443 CALCIUM 9.4 MG/DL 04/12/2014 CHEM 14 0035554 POTASSIUM 3.5 MMOL/L 04/12/2014 CHEM 14 9402293 PROT TOT 6.5 GM/DL 04/12/2014 CHEM 14 1855574 GLUCOSE 89 MG/DL 04/12/2014 CHEM 14 7187714 BICARB 29 MMOL/L 04/12/2014 CHEM 14 6962362 ANION GAP 8 MEQ/L 04/12/2014 LIPID GRP HDL TE ST 59 MG/DL 04/12/2014 LIPID GRP TRIG 177 MG/DL 04/12/2014 LIPID GRP 6259693 TEST L DL 106 MG/DL 04/12/2014 LIPID GRP CHOL 200 MG/DL 04/12/2014 LIPID GRP RCHOL/ HDL 3.39 RATIO 04/12/2014 CBC 2240640 WBC 4.6 10e9/L 04/12/2014 CBC 0539380 RBC 4.52 10e12/L 04/12/2014 CBC 5338316 HGB 13.1 g/dL 04/12/2014 CBC 1744570 HCT DET 39.2 % 04/12/2014 CBC 2955052 MCV 86.7 fL 04/12/2014 CBC 5555163 MCH 29.0 pg 04/12/2014 CBC 0471697 MCHC 33.4 g/dL 04/12/2014 CBC 3361414 PLT 233 10e9/L 04/12/2014 CBC 1039725 MPV 9.8 fL 04/12/2014 CBC 5489642 AN % 59.5 % 04/12/2014 CBC 4032553 LY % 28.6 % 04/12/2014 CBC 0369091 MON % 10.0 % 04/12/2014 CBC 8790807 EOS % 1.5 % 04/12/2014 CBC 2029205 BASO % 0.4 % 04/12/2014 CBC 7525459 RDW 13.7 % 04/12/2014 CBC 4674468 ABS AN 2.74 10e9/L 04/12/2014 CBC 0244918 ABS LYMPH 1.32 10e9/L 04/12/2014 CBC 5351343 ABS MONO 0.46 10e9/L 04/12/2014 CBC 2254177 ABS EOS 0.07 10e9/L 04/12/2014 CBC 0420142 ABS BASO 0.02 10e9/L 04/12/2014 CBC 7103575 RDW-SD 42.6 fL 04/12/2014 GFR CALC 1448644 GFR AA >60 ML/MIN 04/12/2014 GFR CALC 4772811 GFR NON -AA >60 ML/MIN 04/12/2014 LIPID GRP HDL TE ST 57 MG/DL 08/24/2013 LIPID GRP TRIG 183 MG/DL 08/24/2013 LIPID GRP 3445461 TEST L DL 64 MG/DL 08/24/2013 LIPID GRP 4575885 CHOL 158 MG/DL 08/24/2013 LIPID GRP RCHOL/ HDL 2.77 RATIO 08/24/2013 GFR CALC 7347931 GFR AA >60 ML/MIN 08/24/2013 GFR CALC 9888954 GFR NON -AA >60 ML/MIN 08/24/2013 CHEM 14 7125409 AST 13 U/L 08/24/2013 CHEM 14 5310616 ALT 15 IU/L 08/24/2013 CHEM 14 7992499 BUN 14 MG/DL 08/24/2013 CHEM 14 2366850 ALBUMIN 4.3 GM/DL 08/24/2013 CHEM 14 4470953 CHLORIDE 106 MMOL/L 08/24/2013 CHEM 14 4453971 BILI TOT 0.3 MG/DL 08/24/2013 CHEM 14 8299093 ALK PHOS 75 U/L 08/24/2013 CHEM 14 1108705 SODIUM 141 MMOL/L 08/24/2013 CHEM 14 4195769 CREATINI NE 0.56 MG/DL 08/24/2013 CHEM 14 4374442 CALCIUM 9.1 MG/DL 08/24/2013 CHEM 14 9885502 POTASSIUM 4.2 MMOL/L 08/24/2013 CHEM 14 5123617 PROT TOT 6.0 GM/DL 08/24/2013 CHEM 14 0840711 GLUCOSE 83 MG/DL 08/24/2013 CHEM 14 0877361 BICARB 28 MMOL/L 08/24/2013 CHEM 14 9260414 ANION GAP 7 MEQ/L 08/24/2013 CBC 6438905 WBC 4.7 10e9/L 08/24/2013 CBC 7760560 RBC 4.33 10e12/L 08/24/2013 CBC 5767290 HGB 12.5 g/dL 08/24/2013 CBC 1821825 HCT DET 38.2 % 08/24/2013 CBC 5802926 MCV 88.2 fL 08/24/2013 CBC 5807945 MCH 28.9 pg 08/24/2013 CBC 6832024 MCHC 32.7 g/dL 08/24/2013 CBC 9765569 PLT 218 10e9/L 08/24/2013 CBC 0027362 MPV 10.4 fL 08/24/2013 CBC 7872734 AN % 61.9 % 08/24/2013 CBC 7412974 LY % 24.8 % 08/24/2013 CBC 9640524 MON % 10.3 % 08/24/2013 CBC 6349248 EOS % 2.1 % 08/24/2013 CBC 6973578 BASO % 0.9 % 08/24/2013 CBC 0005181 RDW 14.6 % 08/24/2013 CBC 5148839 ABS AN 2.91 10e9/L 08/24/2013 CBC 6891274 ABS LYMPH 1.17 10e9/L 08/24/2013 CBC 9531295 ABS MONO 0.48 10e9/L 08/24/2013 CBC 0800098 ABS EOS 0.10 10e9/L 08/24/2013 CBC 4964939 ABS BASO 0.04 10e9/L 08/24/2013 CBC 7307756 RDW-SD 46.7 fL 08/24/2013 TSH 2764603 TSH 1.208 uIU/ML 08/24/2013 Review of Systems [...] No alteration of consciousness 04/03/2016 Psychiatric anxiety 0611/2015 Ears/Nose/Throat/Neck postnasal drip 04/03/2016 Neurologic No mental [...] 08/24/2013 None Full Exam - General 1995 Respiratory respiratory effort/rhythm Overall: no retractions 08/24/2013 [...] 1994 Ears/Nose/Throat oral cavity/pharynx/larynx Overall: no masses 06/30/2013 [...] and vertical nystagmus Full Exam - General 1995 Constitutional general appearance Overall: well developed 06/24/2013 [...] rate 08/18/2012 None Full Exam - General 1995 [...] accomodation 01/23/2012 None Full Exam - General 1995 Ears/Nose/Throat otoscopic exam Overall: external auditory canals clear 01/23/2012 None Full Exam - General 1995 Ears/Nose/Throat otoscopic exam Overall: tympanic membranes clear 01/23/2012 None Full Exam - General 1995 Ears/Nose/Throat [...] nourished 01/02/2012 None Full Exam - General 1995 [...] 01/22/2017 ADMIN PNEUMOCOCCAL V ACCINE SNOMED CT: 32067691 CPT-4: G0009 09/16/2016 Pneumococcal Polysac charide Vaccine, 23-Valent, Ad CPT-4: 86328 09/16/2016 THER/PROPH/DIAG INJ SC/IM CPT-4: 01447 04/04/2016 TRIAMCINOLONE ACET I [place] NOS CPT-4: J3301 04/04/2016 ADMIN INFLUENZA VIRU S VAC CPT-4: G0008 07/28/2015 FLU VACC 4 XIMENA 3 YRS PLUS IM Formatting Model/CDA Sections, Assigned to/Jen Cota SNOMED CT: 70822627 CPT-4: 81330Cymtwwp 07/28/2015 TRIAMCINOLONE ACET I [place] NOS CPT-4: J3301 06/12/2015 TRIAMCINOLONE ACET I [place] NOS CPT-4: J3301 05/15/2015 ADMIN INFLUENZA VIRU S VAC CPT-4: G0008 07/19/2014 FLU VAC NO PRSV 4 VA L 3 YRS+ Assigned to/Jen Cota CPT-4: 77478Ejdxnmp 07/19/2014 TRIAMCINOLONE ACET I [place] NOS CPT-4: J3301 02/02/2014 ROUTINE VENIPUNCTURE CPT-4: 95620 08/24/2013 ADMIN INFLUENZA VIRU S VAC CPT-4: [...] CPT-4: J3301 01/23/2012 THER/PROPH/DIAG INJ SC/IM CPT-4: 89510 01/23/2012 REMOVE IMPACTED EAR WAX UNI CPT-4: 63755 01/02/2012 ROUTINE VENIPUNCTURE CPT-4: 97813 12/20/2011 Vital Signs Date Vital 09/17/2017 Blood Pressure 1: 150/82 Code: 8480-6 BMI: 33.6 Code: 83759-1 Heart Rate 1: 58 bpm Height: 5' SpO2: 98% Weight: 175 lbs 06/23/2017 Blood Pressure 1: 124/66 Code: 8480-6 Heart Rate 1: 65 bpm Height: 5' SpO2: 97% Weight: 05/13/2017 Blood Pressure 1: 128/80 Code: 8480-6 BMI: 32.8 Code: 37163-0 Heart Rate 1: 76 bpm Height: 5' SpO2: 95% Weight: 171 lbs 03/21/2017 Blood Pressure 1: 152/88 Code: 8480-6 Heart Rate 1: 70 bpm Height: SpO2: 98% Weight: 03/19/2017 Blood Pressure 1: 132/64 Code: 8480-6 BMI: 33.0 Code: 38874-8 Heart Rate 1: 64 bpm Height: 5' SpO2: 96% Weight: 172 lbs 01/22/2017 Blood Pressure 1: 120/68 Code: 8480-6 BMI: 33.4 Code: 84460-8 Heart Rate 1: 68 bpm Height: 5' SpO2: 96% Weight: 174 lbs 01/14/2017 Blood Pressure 1: 138/80 Code: 8480-6 BMI: 33.4 Code: 94921-0 Heart Rate 1: 69 bpm Height: 5' SpO2: 98% Weight: 174 lbs 09/23/2016 Blood Pressure 1: 138/70 Code: 8480-6 BMI: 33.6 Code: 66652-3 Heart Rate 1: 68 bpm Height: 5' SpO2: 98% Temperature: 36.4 (C ) / 97.5 (F) Weight: 175 lbs 09/16/2016 Blood Pressure 1: 124/74 Code: 8480-6 BMI: 33.6 Code: 86747-8 Heart Rate 1: 64 bpm Height: 5' SpO2: 97% Weight: 175 lbs 06/25/2016 Weigh t: 174 lbs 06/17/2016 Blood Pressure 1: 128/80 Code: 8480-6 BMI: 34.0 Code: 83462-8 Heart Rate 1: 76 bpm Height: 5' SpO2: 95% Weight: 177 lbs 04/03/2016 Blood Pressure 1: 138/72 Code: 8480-6 BMI: 34.2 Code: 28284-9 Heart Rate 1: 63 bpm Height: 5' SpO2: 96% Weight: 178 lbs 03/13/2016 Blood Pressure 1: 128/72 Code: 8480-6 BMI: 35.3 Code: 66056-4 Heart Rate 1: 71 bpm Height: 5' SpO2: 97% Weight: 184 lbs 01/30/2016 Blood Pressure 1: 134/72 Code: 8480-6 BMI: 35.2 Code: 18932-3 Heart Rate 1: 71 bpm Height: 5' SpO2: 96% Weight: 183 lbs 12/21/2015 Blood Pressure 1: 148/90 Code: 8480-6 BMI: 34.6 Code: 49223-9 Heart Rate 1: 89 bpm Height: 5' SpO2: 96% Weight: 180 lbs 10/09/2015 Blood Pressure 1: 124/76 Code: 8480-6 BMI: 34.6 Code: 42949-3 Heart Rate 1: 88 bpm Height: 5' SpO2: 96% Weight: 180 lbs 06/12/2015 Blood Pressure 1: 148/74 Code: 8480-6 BMI: 33.4 Code: 32085-3 Heart Rate 1: 70 bpm Height: 5' SpO2: 96% Weight: 174 lbs 06/05/2015 Blood Pressure 1: 142/82 Code: 8480-6 BMI: 33.2 Code: 93573-5 Heart Rate 1: 72 bpm Height: 5' Weight: 173 lbs 05/15/2015 Blood Pressure 1: 118/80 Code: 8480-6 BMI: 33.6 Code: 17642-9 Heart Rate 1: 82 bpm Height: 5' Weight: 175 lbs 02/06/2015 Blood Pressure 1: 122/76 Code: 8480-6 BMI: 34.6 Code: 57661-4 Heart Rate 1: 58 bpm Height: 5' Weight: 180 lbs 01/10/2015 Blood Pressure 1: 158/90 Code: 8480-6 Blood Pressure 2: 152/90 Code: 8480-6 BMI: 34.6 Code: 62752-5 Heart Rate 1: 68 bpm Height: 5' Weight: 180 lbs 07/19/2014 Blood Pressure 1: 142/78 Code: 8480-6 BMI: 33.6 Code: 36095-1 Heart Rate 1: 56 bpm Height: 5' Weight: 175 lbs 06/17/2014 Blood Pressure 1: 128/86 Code: 8480-6 Heart Rate 1: 66 bpm SpO2: 98% Weight: 172 lbs 04/19/2014 Blood Pressure 1: 152/82 Code: 8480-6 BMI: 32.5 Code: 29943-4 Heart Rate 1: 60 bpm Height: 5' Weight: 169 lbs 04/11/2014 Blood Pressure 1: 120/80 Code: 8480-6 BMI: 33.4 Code: 36192-9 Heart Rate 1: 64 bpm Height: 5' Weight: 174 lbs 03/10/2014 Blood Pressure 1: 136/64 Code: 8480-6 BMI: 32.7 Code: 95638-4 Heart Rate 1: 76 bpm Height: 5' Weight: 170 lbs 02/02/2014 Blood Pressure 1: 160/76 Code: 8480-6 BMI: 32.7 Code: 78563-4 Heart Rate 1: 64 bpm Height: 5' Weight: 170 lbs 10/25/2013 Blood Pressure 1: 164/82 Code: 8480-6 BMI: 31.9 Code: 50881-5 Heart Rate 1: 60 bpm Height: 5' Weight: 166 lbs 08/24/2013 Blood Pressure 1: 138/88 Code: 8480-6 Heart Rate 1: 80 bpm Weight: 07/26/2013 Blood Pressure 1: 154/70 Code: 8480-6 Heart Rate 1: 72 bpm Weight: 162 lbs 06/30/2013 Blood Pressure 1: 182/86 Code: 8480-6 Heart Rate 1: 80 bpm Weight: 06/24/2013 Blood Pressure 1: 148/68 Code: 8480-6 BMI: 31.3 Code: 24642-5 Heart Rate 1: 72 bpm Height: 5' [...] 1: 142/88 Code: 8480-6 BMI: 30.6 Code: 71608-8 Heart Rate 1: 64 bpm Height: 5' [...] 1: 180/96 Code: 8480-6 BMI: 30.5 Code: 85590-6 Heart Rate 1: 76 bpm Height: 5' Respiratory Rate: 16 bpm Weight: 159 lbs 02/19/2012 Blood Pressure 1: 150/70 Code: 8480-6 Blood Pressure 2: 160/78 Code: 8480-6 Heart Rate 1: 76 bpm Respiratory Rate: 16 bpm Weight: 158 lbs 01/23/2012 Blood Pressure 1: 140/84 Code: 8480-6 BMI: 30.3 Code: 92100-8 Heart Rate 1: 68 bpm Height: 5' Respiratory Rate: 16 bpm SpO2: 98% Temperature: 37.0 (C ) / 98.6 (F) Weight: 158 lbs 01/02/2012 Blood Pressure 1: 142/92 Code: 8480-6 BMI: 30.7 Code: 70458-9 Heart Rate 1: 72 bpm Height: 5' Respiratory Rate: 16 bpm Weight: 160 lbs 12/20/2011 Blood Pressure 1: 170/84 Code: 8480-6 BMI: 30.0 Code: 46052-3 Heart Rate 1: 70 bpm Height: 5' [...] 06/12/2015 None rash Location-Head/Neck on the right yarsani 06/12/2015 None rash Location-Head/Neck on the right [...] Encounters Encounter Performer Loca tion Codes Date ([id number]) 82197 EST. P ATIENT, LEVEL IV Diagnosis: Essential (primary) hypertension[ICD10: I10] Zoya Varela MD, [facility] CPT-4: 84638 09/17/2017 ([id number]) 07362 EST. P ATIENT, LEVEL III Diagnosis: Allergic contact dermatitis due to plants, except food[ICD10: L23.7] Kacy Varela MD, [facility] CPT-4: 73065 06/23/2017 ([id number]) 10104 EST. P ATIENT, LEVEL IV Diagnosis: Essential (primary) hypertension[ICD10: I10] Diagnosis: Mixed hyperlipidemia[ICD10: E78.2] Zoya Varela MD, [facility] CPT- 4: 60314 05/13/2017 ([id number]) 50432 EST. P ATIENT, LEVEL III Diagnosis: Allergic contact dermatitis due to plants, except food[ICD10: L23.7] Kacy Varela MD, [facility] CPT-4: 72902 03/21/2017 00671 EST. PATIENT, LEVEL III Diagnosis: Bitten or stung by nonvenomous insect and other nonvenomous arthropods, initial encounter[ICD10: W57.XXXA] Diagnosis: Cellulitis of left lower limb[ICD10: L03.116] Laura Varela MD, [facility] CPT-4: 74827 03/19/2017 ([id number]) 03871 EST. P ATIENT, LEVEL IV Diagnosis: Type 2 diabetes mellitus without complications[ICD10: E11.9] Diagnosis: Essential (primary) hypertension[ICD10: I10] Diagnosis: Other specified epidermal thickening[ICD10: L85.8] Zoya Varela MD, [facility] CPT-4: 29543 01/14/2017 63672 EST. PATIENT, LEVEL III Diagnosis: Glossodynia[ICD10: K14.6] Kacy Varela MD, [facility] CPT- 4: 63765 09/23/2016 ([id number]) 98389 EST. P ATIENT, LEVEL IV Diagnosis: Encounter for screening mammogram for malignant neoplasm of breast[ICD10: Z12.31] Diagnosis: Encounter for immunization[ICD10: Z23] Zoya Varela MD, [facility] CPT-4: 45171 09/16/2016 ([id number]) 18560 EST. P ATIENT, LEVEL III Diagnosis: Diseases of lips[ICD10: K13.0] Diagnosis: Allergic rhinitis due to pollen[ICD10: J30.1] Kacy Varela MD, [facility] CPT-4: 62703 06/25/2016 ([id number]) 96166 EST. P ATIENT, LEVEL III Diagnosis: Essential (primary) hypertension[ICD10: I10] Kacy Varela MD, [facility] CPT-4: 31170 06/17/2016 57266 EST. PATIENT, LEVEL IV Diagnosis: Other acute sinusitis[ICD10: J01.80] Diagnosis: Acute laryngopharyngitis[ICD10: J06.0] Diagnosis: Other allergic rhinitis[ICD10: J30.89] Laura Varela MD, [facility] CPT-4: 87451 04/03/2016 ([id number]) 36700 EST. P ATIENT, LEVEL IV Diagnosis: Essential (primary) hypertension[ICD10: I10] Diagnosis: Localized edema[ICD10: R60.0] Diagnosis: Polyneuropathy, unspecified[ICD10: G62.9] Zoya Varela MD, [facility] CPT-4: 09301 03/13/2016 ([id number]) 41042 EST. P ATIENT, LEVEL IV Diagnosis: Essential (primary) hypertension[ICD10: I10] Diagnosis: Localized edema[ICD10: R60.0] Diagnosis: Type 2 diabetes mellitus without complications[ICD10: E11.9] Zoya Varela MD, [facility] CPT-4: 41330 01/30/2016 91569 EST. PATIENT, LEVEL IV Diagnosis: Localized edema[ICD10: R60.0] Laura Varela MD, [facility] CPT-4: 51230 12/21/2015 ([id number]) 92604 EST. P ATIENT, LEVEL III Diagnosis: Essential (primary) hypertension[ICD10: I10] Diagnosis: Allergic rhinitis due to pollen[ICD10: J30.1] Diagnosis: Cervicalgia[ICD10: M54.2] Kacy Varela MD, [facility] CPT- 4: 57230 10/09/2015 80951 EST. PATIENT, LEVEL II Diagnosis: Contact dermatitis[ICD9: 692.9] Kacy Varela MD, [facility] CPT- 4: 07058 06/12/2015 ([id number]) 79533 EST. P ATIENT, LEVEL III Diagnosis: ESSENTIAL HYPERTENSION[ICD9: 401.9] Diagnosis: DIABETES TYPE II[ICD9: 250.00] Diagnosis: Anxiety[ICD9: 300.00] Kacy Varela MD, [facility] CPT-4: 44799 06/05/2015 ([id number]) 60088 EST. P ATIENT, LEVEL IV Diagnosis: Anxiety[ICD9: 300.00] Diagnosis: ALLERGIC RHINITIS[ICD9: 477.9] Diagnosis: ESOPHAGEAL REFLUX[ICD9: 530.81] Kacy Varela MD, [facility] CPT- 4: 39877 05/15/2015 ([id number]) 93796 EST. P ATIENT, LEVEL III Diagnosis: ESSENTIAL HYPERTENSION[ICD9: 401.9] Zoya Varela MD, [facility] CPT- 4: 18594 02/06/2015 ([id number]) 73263 EST. P ATIENT, LEVEL IV Diagnosis: ESSENTIAL HYPERTENSION[ICD9: 401.9] Diagnosis: EDEMA[ICD9: 782.3] Diagnosis: DIABETES TYPE II[ICD9: 250.00] Zoya Varela MD, [facility] CPT-4: 95488 01/10/2015 ([id number]) 70320 EST. P ATIENT, LEVEL IV Diagnosis: ESSENTIAL HYPERTENSION[ICD9: 401.9] Diagnosis: DIABETES TYPE II[ICD9: 250.00] Zoya Varela MD, [facility] CPT-4: 59676 07/19/2014 ([id number]) 55309 EST. P ATIENT, LEVEL III Diagnosis: Left ankle pain[ICD9: 719.47] Kacy Varela MD, [facility] CPT- 4: 10447 06/17/2014 ([id number]) 37002 EST. P ATIENT, LEVEL III Diagnosis: ESSENTIAL HYPERTENSION[ICD9: 401.9] Diagnosis: Elevated blood sugar[ICD9: 790.29] Zoya Varela MD, [facility] CPT- 4: 64511 04/19/2014 ([id number]) 65096 EST. P ATIENT, LEVEL IV Diagnosis: ESSENTIAL HYPERTENSION[SNOMED: 54654507] Diagnosis: ESOPHAGEAL REFLUX[ICD9: 530.81] Zoya Varela MD, [facility] CPT-4: 50867 04/11/2014 ([id number]) 79429 EST. P ATIENT, LEVEL IV Diagnosis: ALLERGIC RHINITIS[ICD9: 477.9] Diagnosis: Anxiety[ICD9: 300.00] Diagnosis: Dyspnea[ICD9: 786.09] Diagnosis: ESOPHAGEAL REFLUX[ICD9: 530.81] Kacy Varela MD, [facility] CPT- 4: 39537 03/10/2014 ([id number]) 06389 EST. P ATIENT, LEVEL III Diagnosis: ALLERGIC RHINITIS[ICD9: 477.9] Diagnosis: ESSENTIAL HYPERTENSION[SNOMED: 01105866] Kacy Varela MD, [facility] CPT-4: 05839 02/02/2014 ([id number]) 63109 EST. P ATIENT, LEVEL III Diagnosis: ESSENTIAL HYPERTENSION[SNOMED: 22758637] Diagnosis: Skin irritation[ICD9: 709.9] Zoya Varela MD, [facility] CPT-4: 06009 10/25/2013 ([id number]) 46425 EST. P ATIENT, LEVEL III Diagnosis: HYPERLIPIDEMIA[ICD9: 272.4] Diagnosis: ESSENTIAL HYPERTENSION[SNOMED: 56972504] Diagnosis: EDEMA[ICD9: 782.3] Diagnosis: Encounter for long-term (current) use of other medications[ICD9: V58.69] Zoya Varela MD, [facility] CPT-4: 78473 08/24/2013 ([id number]) 10003 EST. P ATIENT, LEVEL III Diagnosis: ESSENTIAL HYPERTENSION[SNOMED: 41701151] Zoya Varela MD, C CPT-4: 93606 07/26/2013 ([id number]) 82817 EST. P ATIENT, LEVEL III Diagnosis: ESSENTIAL HYPERTENSION[SNOMED: 51724001] Zoya Varela MD, C CPT-4: 39850 06/30/2013 ([id number]) 20329 EST. P ATIENT, LEVEL III Diagnosis: ESSENTIAL HYPERTENSION[SNOMED: 63208363] Zoya Varela MD, C CPT-4: 28559 06/24/2013 ([id number]) 31462 EST. P ATIENT, LEVEL IV Diagnosis: ESSENTIAL HYPERTENSION[SNOMED: 23633026] Diagnosis: Leg pain[ICD9: 729.5] Diagnosis: Leg swelling[ICD9: 729.81] Zoya Varela MD, [facility] CPT-4: 23255 12/01/2012 ([id number]) 25627 EST. P ATIENT, LEVEL III Diagnosis: Shingles[ICD9: 053.9] Zoya Varela MD, [facility] CPT-4: 27582 10/19/2012 ([id number]) 12390 EST. P ATIENT, LEVEL IV Diagnosis: EDEMA[ICD9: 782.3] Diagnosis: ESSENTIAL HYPERTENSION[SNOMED: 49430431] Zoya Varela MD, C CPT-4: 48261 10/07/2012 ([id number]) 03149 EST. P ATIENT, LEVEL IV Diagnosis: ESSENTIAL HYPERTENSION[SNOMED: 61368475] Diagnosis: EDEMA[ICD9: 782.3] Diagnosis: Irritable bowel disease[ICD9: 564.1] Zoya Varela MD, [facility] CPT-4: 71890 2012 ([id number]) 19426 EST. P ATIENT, LEVEL III Diagnosis: ESSENTIAL HYPERTENSION[SNOMED: 40701793] Zoya Varela MD, C CPT-4: 40022 08/18/2012 ([id number]) 85182 EST. P ATIENT, LEVEL III Diagnosis: ESSENTIAL HYPERTENSION[SNOMED: 50281002] Zoya Varela MD, C CPT-4: 72787 08/04/2012 ([id number]) 77529 EST. P ATIENT, LEVEL IV Diagnosis: ESSENTIAL HYPERTENSION[SNOMED: 91801912] Diagnosis: Lumbago[ICD9: 724.2] Diagnosis: HYPERLIPIDEMIA[ICD9: 272.4] Zoya Varela MD, [facility] CPT-4: 67165 07/01/2012 ([id number]) 20270 EST. P ATIENT, LEVEL III Diagnosis: ESSENTIAL HYPERTENSION[SNOMED: 03082326] Zoya Varela MD, C CPT-4: 88281 05/20/2012 ([id number]) 31854 EST. P ATIENT, LEVEL IV Diagnosis: ESSENTIAL HYPERTENSION[SNOMED: 74770552] Diagnosis: Hot flash, menopausal[ICD9: 627.2] Zoya Varela MD, [facility] CPT- 4: 28613 04/20/2012 44278 EST. PATIENT, LEVEL IV Diagnosis: SPASM OF MUSCLE[ICD9: 728.85] Diagnosis: Back pain[ICD9: 724.5] Diagnosis: ESSENTIAL HYPERTENSION[SNOMED: 67125875] Zoya Varela MD, C CPT-4: 89530 03/10/2012 ([id number]) 94425 EST. P ATIENT, LEVEL IV Diagnosis: COUGH[ICD9: 786.2] Diagnosis: Allergic rhinitis[ICD9: 477.9] Diagnosis: Malignant reactive hypertension[ICD9: 401.0] Zoya Varela MD, C CPT-4: 04945 02/25/2012 ([id number]) 81595 EST. P ATIENT, LEVEL III Diagnosis: ESSENTIAL HYPERTENSION[SNOMED: 34199043] Zoya Varela MD, C CPT-4: 38266 02/19/2012 52324 EST. PATIENT, LEVEL IV Diagnosis: ESSENTIAL HYPERTENSION[SNOMED: 78219587] Diagnosis: Cough[ICD9: 786.2] Kacy Varela MD, [facility] CPT-4: 61862 01/23/2012 ([id number]) [id number] EST. P ATIENT, LEVEL IV Diagnosis: HYPERLIPIDEMIA[ICD9: 272.4] Diagnosis: ESSENTIAL HYPERTENSION[SNOMED: 14840280] Zoya Varela MD, C CPT-4: 96173 01/02/2012 OFFICE VISIT, NEW - LEVEL 4 Diagnosis: ESSENTIAL HYPERTENSION[SNOMED: 65495988] Diagnosis: HYPERLIPIDEMIA[ICD9: 272.4] Diagnosis: IMPACTED CERUMEN[ICD9: 380.4] Diagnosis: Muscle spasm[ICD9: 728.85] Diagnosis: CHRONIC TENSION HEADACHE[ICD9: 339.12] Diagnosis: Neck pain, chronic[ICD9: 723.1] Diagnosis: Change in skin mole[ICD9: 216.9] Zoya Vraela MD, [facility] CPT-4: 95190 12/20/2011 Plan of Care Planned Activity Notes C odes Status Date Appointment: Zoya Varela WPtel: [address] [place], [place] [address] (15 min) Moderate 09/17/2017 Patient Education: Patient Medication Summary Completed 09/17/2017 Patient Education: Obesity Completed 09/17/2017 Patient Education: Hypertension Completed 09/17/2017 Care Plan: [employer] : [id number] Pending 09/17/2017 Appointment: Kacy Moses WPtel: [phone] (15 min) Moderate 06/23/2017 Patient Education: Patient Medication Summary Completed 06/23/2017 Appointment: Zoya Varela WPtel: [address] [place], [place] [phone] (15 min) Moderate 05/13/2017 Patient Education: Patient Medication Summary Completed 05/13/2017 Patient Education: Obesity Completed 05/13/2017 Patient Education: Hypertension Completed 05/13/2017 Appointment: Kacy Moses WPtel: [phone] (15 min) Moderate 03/21/2017 Patient Education: Patient Medication Summary Completed 03/21/2017 Appointment: Laura Velasco WPtel: [address] [place], [place] [phone] (15 min) Moderate 03/19/2017 Patient Education: Patient Medication Summary Completed 03/19/2017 Patient Education: Obesity Completed 03/19/2017 Appointment: Laura Velasco WPtel: [facility] MCR - Annual Wellness Visit 01/22/2017 Appointment: Nurse Visit 01/22/2017 Patient Education: Patient Medication Summary Completed 01/22/2017 Appointment: Zoya Varela WPtel: [address] [place], [place] [address] (15 min) Moderate 01/14/2017 Patient Education: Patient Medication Summary Completed 01/14/2017 Patient Education: Obesity Completed 01/14/2017 Patient Education: Hypertension Completed 01/14/2017 Appointment: Kacy Moses WPtel: [phone] (15 min) Moderate 09/23/2016 Patient Education: Patient Medication Summary Completed 09/23/2016 Patient Education: Obesity Completed 09/23/2016 Appointment: [facility] [facility] [place] (15 min) Moderate 09/16/2016 Patient Education: Patient Medication Summary Completed 09/16/2016 Patient Education: Obesity Completed 09/16/2016 Care Plan: [employer] LO[employer] : 56249-8 Pending 09/16/2016 Appointment: Kacy Moses WPtel: [phone] [place] (15 min) Moderate 06/25/2016 Patient Education: Patient Medication Summary Completed 06/25/2016 Appointment: (15 min) Moderate 06/17/2016 Patient Education: Patient Medication Summary Completed 06/17/2016 Patient Education: Obesity Completed 06/17/2016 Appointment: Injection 04/04/2016 Patient Education: Patient Medication Summary Completed 04/04/2016 Appointment: Kacy Moses WPtel: [phone] [place] (30 min) Complex 04/03/2016 Patient Education: Patient Medication Summary Completed 04/03/2016 Patient Education: Obesity Completed 04/03/2016 Patient Education: Patient Medication Summary Completed 03/13/2016 Patient Education: Obesity Completed 03/13/2016 Patient Education: Hypertension Completed 03/13/2016 Appointment: Zoya Varela WPtel: [facility] [place] (15 min) Moderate 02/28/2016 Appointment: Zoya Varela WPtel: [facility] [place] (15 min) Moderate 02/01/2016 Appointment: Zoya Varela WPtel: [facility] [place] (15 min) Moderate 01/30/2016 Patient Education: [...] Summary Completed 05/15/2015 Appointment: Zoya Varela WPtel: [address] [place], [place] [phone] Follow up 02/06/2015 Patient Education: Patient Medication Summary Completed 02/06/2015 Patient Education: Hypertension Completed 02/06/2015 Appointment: Zoya Varela WPtel: [address] [place], [place] [phone] [facility] 01/10/2015 Patient Education: Patient Medication Summary Completed 01/10/2015 Patient Education: Hypertension Completed 01/10/2015 Appointment: Zoya Varela WPtel: [address] [place], [place] [phone] Follow up 07/19/2014 Patient Education: Patient Medication Summary Completed 07/19/2014 Patient Education: Hypertension Completed 07/19/2014 Care Plan: [employer]AM[employer]HY[employer] LOINC : 22277-9 Ordered 07/19/2014 Appointment: Sick 06/17/2014 Patient Education: Patient Medication Summary Completed 06/17/2014 Appointment: Kacy Moses WPtel: [address] [place], [place] [phone] Diabetic education 04/19/2014 Patient Education: Patient Medication Summary Completed 04/19/2014 Patient Education: Hypertension Completed 04/19/2014 Appointment: Zoya Varela WPtel: [address] [place], [place] [phone] Follow up 04/11/2014 Patient Education: Patient Medication Summary Completed 04/11/2014 Patient Education: Hypertension Completed 04/11/2014 Appointment: Zoya Varelatel: [facility] [place] Other 03/10/2014 Patient Education: Patient Medication Summary Completed 03/10/2014 Appointment: Kacy Moses WPtel: [phone] [place] Other 02/02/2014 Patient Education: Patient Medication Summary Completed 02/02/2014 Patient Education: Hypertension Completed 02/02/2014 Appointment: Zoya Varela WPtel: [facility] [place] Follow up 10/25/2013 Patient Education: Patient Medication Summary Completed 10/25/2013 Patient Education: Hypertension Completed 10/25/2013 Appointment: Zoya Varela WPtel: [facility] [place] Follow up 08/24/2013 Patient Education: Patient Medication Summary Completed 08/24/2013 Patient Education: Hypertension Completed 08/24/2013 Appointment: Zoya Varela WPtel: [facility] [place] Follow up 07/26/2013 Patient Education: Patient Medication Summary Completed 07/26/2013 Patient Education: Hypertension Completed 07/26/2013 Appointment: Zoya Varela WPtel: [address] [place], [place] [address] Other 06/30/2013 Patient Education: Patient Medication Summary Completed 06/30/2013 Patient Education: Hypertension Completed 06/30/2013 Appointment: Kacy Moses WPtel: [phone] [place] Follow up 06/24/2013 Patient Education: Patient Medication Summary Completed 06/24/2013 Patient Education: Hypertension Completed 06/24/2013 Appointment: Zoya Varela WPtel: [address] [place], [place] [phone] Other 03/23/2013 Appointment: Zoya Varela WPtel: [address] [place], [place] [phone] [place] Follow up 12/01/2012 Patient Education: Patient Medication Summary Completed 12/01/2012 Patient Education: Hypertension Completed 12/01/2012 Appointment: Zoya Varela WPtel: [facility] Follow up 10/20/2012 Appointment: Zoya Varela WPtel: [facility] Other 10/19/2012 Patient Education: Patient Medication Summary Completed 10/19/2012 Appointment: Kacy Moses WPtel: [phone] [place] Other 10/07/2012 Patient Education: Hypertension Completed 10/07/2012 Patient Education: Patient Medication Summary Completed 10/07/2012 Appointment: Zoya Varela WPtel: [facility] Other 2012 Patient Education: Patient Medication Summary Completed 2012 Patient Education: High Blood Pressure: Essential Hypertension Completed 2012 Appointment: Zoya Varela WPtel: [address] [place], [place] [phone] [place] Follow up 08/18/2012 Patient Education: Patient Medication Summary Completed 08/18/2012 Patient Education: High Blood Pressure: Essential Hypertension Completed 08/18/2012 Appointment: Zoya Varela WPtel: [address] [place], [place] [phone] Follow up 08/04/2012 Patient Education: Patient Medication Summary Completed 08/04/2012 Patient Education: clonidine 0.1 mg/24 h r Weekly Transderm Patch Monograph Completed 08/04/2012 Patient Education: High Blood Pressure: Essential Hypertension Completed 08/04/2012 Appointment: Zoya Varela WPtel: [address] [place], [place] [phone] Other 07/01/2012 Patient Education: Patient Medication Summary Completed 07/01/2012 Patient Education: High Blood Pressure: Essential Hypertension Completed 07/01/2012 Appointment: Zoya Varela WPtel: [address] [place], [place] [phone] [place] Follow up 05/20/2012 Patient Education: Patient Medication Summary Completed 05/20/2012 Patient Education: High Blood Pressure: Essential Hypertension Completed 05/20/2012 Appointment: Zoya Varela WPtel: [address] [place] [phone] Other 05/11/2012 Appointment: Zoya Varela WPtel: [address] [place], [place] [phone] Follow up 04/20/2012 Patient Education: Patient Medication Summary Completed 04/20/2012 Patient Education: High Blood Pressure: Essential Hypertension Completed 04/20/2012 Appointment: Zoya Varela WPtel: [address] [place], [place] [phone] Other 03/10/2012 Patient Education: Patient Medication Summary Completed 03/10/2012 Patient Education: High Blood Pressure: Essential Hypertension Completed 03/10/2012 Appointment: Zoya Varela WPtel: [address] [place], [place] [phone] Other 02/25/2012 Patient Education: Patient Medication Summary Completed 02/25/2012 Patient Education: High Blood Pressure: Essential Hypertension Completed 02/25/2012 Appointment: Zoya Varela WPtel: [address] [place], [place] [phone] Other 02/19/2012 Patient Education: Patient Medication Summary Completed 02/19/2012 Patient Education: High Blood Pressure: Essential Hypertension Completed 02/19/2012 Appointment: Kacy Moses WPtel: [address] [place], [place] [phone] Other 01/23/2012 Patient Education: Patient Medication Summary Completed 01/23/2012 Patient Education: High Blood Pressure: Essential Hypertension Completed 01/23/2012 Appointment: Zoya Varela WPtel: [address] [place], [place] [phone] Other 01/02/2012 Patient Education: Patient Medication Summary Completed 01/02/2012 Patient Education: High Blood Pressure: Essential Hypertension Completed 01/02/2012 Appointment: Zoya Varela WPtel: [address] [place], [place] [phone] New Patient 12/20/2011 Patient Education: Patient Medication Summary Completed 12/20/2011 Patient Education: High Blood Pressure: Essential Hypertension Completed 12/20/2011 Instructions No Instructions
--- OUTSIDE RECORDS SUMMARY | 2020-05-26 03:39 | XMS REPORT | Continuity of Care Document ---
Author Organization Unknown Address Unknown Phone Unavailable Allergies Active Description Code Type Severity Reaction Onset Reported/Identified Relationship to Patient Clinical Status Yes NKANo Known Allergies NKA Miscellaneous Allergy Unknown N/A 03/03/2007 Medications There is no data. Problems Date Dx Coded Attending Type Code Diagnosis Diagnosed By 11/13/2012 Ot 401.9 HYPE RTENSION NOS 11/13/2012 Ot 530.81 ESO PHAGEAL REFLUX 11/13/2012 Ot 715.36 LOC OSTEOARTH NOS-L/LEG 09/10/2013 DESIRE ALCARAZ, OLINDA Ku Ot 723.0 CERVICAL SPINAL STENOSIS 01/12/2016 Ot 715.96 01/12/2016 Ot V72.63 01/12/2016 Ot V72.83 01/12/2016 Ot V74.8 01/12/2016 Ot 397.0 01/12/2016 Ot 401.9 01/12/2016 Ot 416.8 01/12/2016 Ot 424.0 01/12/2016 Ot 782.3 01/12/2016 Ot V43.65 01/12/2016 Ot V58.61 01/12/2016 Ot V58.83 01/12/2016 Ot 338.28 01/12/2016 Ot 729.5 01/12/2016 Ot 729.81 01/12/2016 ANNMARIE ALCARAZ, ALEXANDRA Villela Ot 715.91 01/12/2016 ANNMARIE ALCARAZ, ALEXANDRA [place]la Ot 726.10 01/12/2016 MICKEY ALCARAZ, [place] Keith Ot 786.09 01/12/2016 MICKEY ALCARAZ, [place] Keith Ot 786.50 01/12/2016 ANNMARIE ALCARAZ, ALEXANDRA V[place]la Ot 723.0 01/12/2016 ANNMARIE ALCARAZ, ALEXANDRA [place] Ot 723.4 01/12/2016 ANNMARIE ALCARAZ, ALEXANDRA [place] Ot 726.10 01/12/2016 ANNMARIE ALCARAZ, ALEXANDRA V[place]la Ot V45.4 01/12/2016 KACY CAMPBELL Ot 401.9 01/12/2016 SHASHI ALCARAZ, PAM Fitch Ot V72.84 01/12/2016 SHASHI ALCARAZ, PAM Fitch Ot 532.90 01/12/2016 SHASHI ALCARAZ, PAM Constantine Ot 535.40 01/12/2016 DESIRE ALCARAZ, OLINDA Ku Ot 723.1 01/12/2016 OLINDA PHIPPS MD Ot V45.4 01/12/2016 KACY CAMPBELL [employer]LAZE SPRAYER Ot 786.05 01/12/2016 KACY CAMPBELL GLAZE SPRAYER Ot 786.09 01/12/2016 KACY CAMPBELLP Ot V45.4 01/15/2016 ALEXANDRA HARPER MD Ot I1 0 02/08/2016 ALEXANDRA HARPER MD Ot I1 0 03/29/2016 CAROLYN HANSON MD, Ot M53. 3 SACROCOCCYGEAL DISORDERS, NOT ELSEWHERE 03/29/2016 CAROLYN HANSON MD Ot M96. 1 POSTLAMINECTOMY SYNDROME, NOT ELSEWHERE 03/29/2016 CAROLYN HANSON MD Ot Z79.899 OTHER SENIOR CARE (CURRENT) DRUG THERAPY 04/15/2016 CAROLYN HANSON MD Ot M53. 3 SACROCOCCYGEAL DISORDERS, NOT ELSEWHERE 04/15/2016 CAROLYN HANSON MD Ot M96. 1 POSTLAMINECTOMY SYNDROME, NOT ELSEWHERE 04/15/2016 CAROLYN HANSON MD Ot Z79.899 OTHER AIR QUALITY ENGINEER (CURRENT) DRUG THERAPY 09/10/2017 Ot 715.96 OST EOARTHROS NOS- L/LEG 09/10/2017 Ot V72.63 PRE -PROCEDURAL LABORATORY EXAMINATION 09/10/2017 Ot V72.83 EXA M PRE- OPERATIVE NEC 09/10/2017 Ot V74.8 SCRE EN-BACTERIAL DIS NEC 09/10/2017 Ot 397.0 TRIC USPID VALVE DISEASE 09/10/2017 Ot 401.9 HYPE RTENSION NOS 09/10/2017 Ot 416.8 CHR PULMON HEART DIS NEC 09/10/2017 Ot 424.0 MITR AL VALVE DISORDER 09/10/2017 Ot 782.3 EDEMA 09/10/2017 Ot V43.65 KNE E JOINT REPLACEMENT STATUS 09/10/2017 Ot V58.61 ANTICOAGULANTS,LT,CURRENT USE 09/10/2017 Ot V58.83 ENC OUNTER FOR THERAPEUTIC DRUG MONITORIN 09/10/2017 Ot 338.28 OTH ER CHRONIC POSTOPERATIVE PAIN 09/10/2017 Ot 729.5 PAIN IN LIMB 09/10/2017 Ot 729.81 SWE LLING OF LIMB 09/10/2017 ALEXANDRA ANGUIANO MD Ot 715.91 OSTEOARTHROS NOS-SHLDER 09/10/2017 ALEXANDRA ANGUIANO MD Ot 726.10 BURSAE TENDONS DIS SHLDER NOS 09/10/2017 INDIA VARELA MD Ot 786.09 RESPIRATORY ABNORM NEC 09/10/2017 INDIA VARELA MD Ot 786.50 CHEST PAIN NOS 09/10/2017 ALEXANDRA ANGUIANO MD Ot 723.0 CERVICAL SPINAL STENOSIS 09/10/2017 ALEXANDRA ANGUIANO MD Ot 723.4 BRACHIAL NEURITIS NOS 09/10/2017 ALEXANDRA ANGUIANO MD Ot 726.10 BURSAE TENDONS DIS SHLDER NOS 09/10/2017 ALEXANDRA ANGUIANO MD Ot V45.4 ARTHRODESIS STATUS 09/10/2017 KACY CAMPBELL Ot 401.9 HYPERTENSION NOS 09/10/2017 SHASHI ALCARAZ, PAM Fitch Ot V72.84 EXAM PRE-OPERATIVE NOS 09/10/2017 SHASHI ALCARAZ, PAM Fitch Ot 532.90 DUODENAL ULCER NOS 09/10/2017 PAM DANIELLE MD Ot 535.40 OTH SPECIFIED GASTRITIS,W/O MENTION OF H 09/10/2017 OLINDA PHIPPS MD Ot 723.1 CERVICALGIA 09/10/2017 OLINDA PHIPPS MD Ot V45.4 ARTHRODESIS STATUS 09/10/2017 KACY CAMPBELLP Ot 786.05 SHORTNESS OF BREATH 09/10/2017 KACY CAMPBELL Ot 786.09 RESPIRATORY ABNORM NEC 09/10/2017 KACY CAMPBELL Ot V45.4 ARTHRODESIS STATUS 09/10/2017 ALEXANDRA HARPER MD Ot I1 0 ESSENTIAL (PRIMARY) HYPERTENSION 09/11/2017 LILLIAM YI Ot K22.4 DYSKINESIA OF ESOPHAGUS 09/11/2017 LILLIAM YI Ot K44.9 DIAPHRAGMATIC HERNIA WITHOUT OBSTRUCTION 09/11/2017 LILLIAM YI Ot S00.83XA CONTUSION OF OTHER PART OF HEAD, INITIAL 09/11/2017 KD, LILLIAM J RADIO RECORDER Ot W22.09XA STRIKING AGAINST OTHER STATIONARY OBJECT 09/11/2017 LILLIAM YI [facility] Ot Y99.8 OTHER EXTERNAL CAUSE STATUS 10/01/2017 LILLIAM YI [facility] Ot K22.4 DYSKINESIA OF ESOPHAGUS 10/01/2017 LILLIAM YI [facility] Ot K44.9 DIAPHRAGMATIC HERNIA WITHOUT OBSTRUCTION 10/01/2017 LILLIAM YI [facility] Ot S00.83XA CONTUSION OF OTHER PART OF HEAD, INITIAL 10/01/2017 LILLIMA YI [place] [facility] Ot W22.09XA STRIKING AGAINST OTHER STATIONARY OBJECT 10/01/2017 LILLIAM YI [facility] Ot Y99.8 OTHER EXTERNAL CAUSE STATUS 10/06/2017 Ot 715.96 OST EOARTHROS NOS- L/LEG 10/06/2017 Ot V72.63 PRE -PROCEDURAL LABORATORY EXAMINATION 10/06/2017 Ot V72.83 EXA M PRE- OPERATIVE NEC 10/06/2017 Ot V74.8 SCRE EN-BACTERIAL DIS NEC 10/06/2017 Ot 397.0 TRIC USPID VALVE DISEASE 10/06/2017 Ot 401.9 HYPE RTENSION NOS 10/06/2017 Ot 416.8 CHR PULMON HEART DIS NEC 10/06/2017 Ot 424.0 MITR AL VALVE DISORDER 10/06/2017 Ot 782.3 EDEMA 10/06/2017 Ot V43.65 KNE E JOINT REPLACEMENT STATUS 10/06/2017 Ot V58.61 ANTICOAGULANTS,LT,CURRENT USE 10/06/2017 Ot V58.83 ENC OUNTER FOR THERAPEUTIC DRUG MONITORIN 10/06/2017 Ot 338.28 OT ER CHRONIC POSTOPERATIVE PAIN 10/06/2017 Ot 729.5 PAIN IN LIMB 10/06/2017 Ot 729.81 SWE LLING OF LIMB 10/06/2017 ANNMARIE ALCARAZ, ALEXANDRA [place] Ot 715.91 OSTEOARTHROS NOS-SHLDER 10/06/2017 ANNMARIE ALCARAZ, ALEXANDRA [place] Ot 726.10 BURSAE TENDONS DIS SHLDER NOS 10/06/2017 INDIA VARELA MD Ot 786.09 RESPIRATORY ABNORM NEC 10/06/2017 INDIA VARELA MD Ot 786.50 CHEST PAIN NOS 10/06/2017 ALEXANDRA ANGUIANO MD Ot 723.0 CERVICAL SPINAL STENOSIS 10/06/2017 ALEXANDRA ANGUIANO MD Ot 723.4 BRACHIAL NEURITIS NOS 10/06/2017 ALEXANDRA ANGUIANO MD Ot 726.10 BURSAE TENDONS DIS SHLDER NOS 10/06/2017 ALEXANDRA ANGUIANO MD Ot V45.4 ARTHRODESIS STATUS 10/06/2017 KACY CAMPBELL GLAZE SPRAYER Ot 401.9 HYPERTENSION NOS 10/06/2017 SHASHI ALCARAZ, PAM Fitch Ot V72.84 EXAM PRE-OPERATIVE NOS 10/06/2017 SHASHI ALCARAZ, PAM Fitch Ot 532.90 DUODENAL ULCER NOS 10/06/2017 PAM DANIELLE MD Ot 535.40 OTH SPECIFIED GASTRITIS,W/O MENTION OF H 10/06/2017 OLINDA PHIPPS MD Ot 723.1 CERVICALGIA 10/06/2017 OLINDA PHIPPS MD Ot V45.4 ARTHRODESIS STATUS 10/06/2017 KACY CAMPBELL GLAZE SPRAYER Ot 786.05 SHORTNESS OF BREATH 10/06/2017 KACY CAMPBELL GLAZE SPRAYER Ot 786.09 RESPIRATORY ABNORM NEC 10/06/2017 KACY CAMPBELLP Ot V45.4 ARTHRODESIS STATUS 10/06/2017 ALEXANDRA HARPER MD Ot I1 0 ESSENTIAL (PRIMARY) HYPERTENSION 10/06/2017 LILLIAM YI RADIO RECORDER Ot K22.4 DYSKINESIA OF ESOPHAGUS 10/06/2017 KD LILLIAM J RADIO RECORDER Ot K44.9 DIAPHRAGMATIC HERNIA WITHOUT OBSTRUCTION 10/06/2017 KD LILLIAM J RADIO RECORDER Ot S00.83XA CONTUSION OF OTHER PART OF HEAD, INITIAL 10/06/2017 LILLIAM YI RADIO RECORDER Ot W22.09XA STRIKING AGAINST OTHER STATIONARY OBJECT 10/06/2017 KD LILLIAM [place] RADIO RECORDER Ot Y99.8 OTHER EXTERNAL CAUSE STATUS 03/12/2018 ALEXANDRA HARPER MD, Ot M48.061 SPINAL STENOSIS, LUMBAR REGION WITHOUT N 04/01/2018 ALEXANDRA HARPER MD, Ot M48.061 SPINAL STENOSIS, LUMBAR REGION WITHOUT N 04/14/2018 ALEXANDRA HARPER MD Ot K76.0 FATTY (CHANGE OF) LIVER, NOT ELSEWHERE C 04/14/2018 ALEXANDRA HARPER MD Ot N28.89 OTHER SPECIFIED DISORDERS OF KIDNEY AND 05/07/2018 ALEXANDRA HARPER MD Ot K76.0 FATTY (CHANGE OF) LIVER, NOT ELSEWHERE C 05/07/2018 ALEXANDRA HARPER MD Ot N28.89 OTHER SPECIFIED DISORDERS OF KIDNEY AND 11/23/2018 ALEXANDRA ANGUIANO MD Ot 723.0 CERVICAL SPINAL STENOSIS 11/23/2018 ALEXANDRA ANGUIANO MD Ot 723.4 BRACHIAL NEURITIS NOS 11/23/2018 ALEXANDRA ANGUIANO MD Ot 726.10 BURSAE TENDONS DIS SHLDER NOS 11/23/2018 ALEXANDRA ANGUIANO MD Ot V45.4 ARTHRODESIS STATUS 11/23/2018 KACY CAMPBELL GLAZE SPRAYER Ot 401.9 HYPERTENSION NOS 11/23/2018 SHASHI ALCARAZ, PAM Fitch Ot V72.84 EXAM PRE-OPERATIVE NOS 11/23/2018 SHASHI ALCARAZ, PAM Fitch Ot 532.90 DUODENAL ULCER NOS 11/23/2018 SHASHI ALCARAZ, PAM Fitch Ot 535.40 OTH SPECIFIED GASTRITIS,W/O MENTION OF H 11/23/2018 OLINDA PHIPPS MD Ot 723.1 CERVICALGIA 11/23/2018 OLINDA PHIPPS MD Ot V45.4 ARTHRODESIS STATUS 11/23/2018 KACY CAMPBELL GLAZE SPRAYER Ot 786.05 SHORTNESS OF BREATH 11/23/2018 KACY CAMPBELL GLAZE SPRAYER Ot 786.09 RESPIRATORY ABNORM NEC 11/23/2018 KACY CAMPBELL GLAZE SPRAYER Ot V45.4 ARTHRODESIS STATUS 11/23/2018 ALEXANDRA HARPER MD Ot I1 0 ESSENTIAL (PRIMARY) HYPERTENSION 11/23/2018 KD LILLIAM J RADIO RECORDER Ot K22.4 DYSKINESIA OF ESOPHAGUS 11/23/2018 KD LILLIAM J RADIO RECORDER Ot K44.9 DIAPHRAGMATIC HERNIA WITHOUT OBSTRUCTION 11/23/2018 KD LILLIAM J RADIO RECORDER Ot S00.83XA CONTUSION OF OTHER PART OF HEAD, INITIAL 11/23/2018 KD LILLIAM J RADIO RECORDER Ot W22.09XA STRIKING AGAINST OTHER STATIONARY OBJECT 11/23/2018 KD LILLIAM J RADIO RECORDER Ot Y99.8 OTHER EXTERNAL CAUSE STATUS 11/23/2018 ALEXANDRA HARPER MD Ot M48.061 SPINAL STENOSIS, LUMBAR REGION WITHOUT N 11/23/2018 ALEXANDRA HARPER MD Ot K76.0 FATTY (CHANGE OF) LIVER, NOT ELSEWHERE C 11/23/2018 ALEXANDRA HARPER MD, Ot N28.89 OTHER SPECIFIED DISORDERS OF KIDNEY AND 12/16/2018 ALEXANDRA HARPER MD, Ot M48.061 SPINAL STENOSIS, LUMBAR REGION WITHOUT N 12/16/2018 ALEXANDRA HARPER MD, Ot Z98.890 OTHER SPECIFIED POSTPROCEDURAL STATES 07/21/2019 AMANDA PRUETT MD Ot K57.3 0 DVRTCLOS OF LG INT W/O PERFORATION OR AB 07/21/2019 AMANDA PRUETT MD Ot Z98.1 ARTHRODESIS STATUS 07/21/2019 AMANDA PRUETT MD Ot Z98.8 90 OTHER SPECIFIED POSTPROCEDURAL STATES 07/25/2019 AMANDA PRUETT MD Ot K57.3 0 DVRTCLOS OF LG INT W/O PERFORATION OR AB 07/25/2019 AMANDA PRUETT MD A Ot Z98.1 ARTHRODESIS STATUS 07/25/2019 AMANDA PRUETT MD Ot Z98.8 90 OTHER SPECIFIED POSTPROCEDURAL STATES 08/12/2019 AMANDA PRUETT MD Ot K57.3 0 DVRTCLOS OF LG INT W/O PERFORATION OR AB 08/12/2019 AMANDA PRUETT MD A Ot Z98.1 ARTHRODESIS STATUS 08/12/2019 AMANDA PRUETT MD Ot Z98.8 90 OTHER SPECIFIED POSTPROCEDURAL STATES 11/22/2019 ALEXANDRA HARPER MD, Ot I1 0 ESSENTIAL (PRIMARY) HYPERTENSION 11/22/2019 KD, LILLIAM J RADIO RECORDER Ot K22.4 DYSKINESIA OF ESOPHAGUS 11/22/2019 KD, LILLIAM J RADIO RECORDER Ot K44.9 DIAPHRAGMATIC HERNIA WITHOUT OBSTRUCTION 11/22/2019 KD, LILLIAM J RADIO RECORDER Ot S00.83XA CONTUSION OF OTHER PART OF HEAD, INITIAL 11/22/2019 KD, LILLIAM J RADIO RECORDER Ot W22.09XA STRIKING AGAINST OTHER STATIONARY OBJECT 11/22/2019 KD, LILLIAM J RADIO RECORDER Ot Y99.8 OTHER EXTERNAL CAUSE STATUS 11/22/2019 ALEXANDRA HARPER MD, Ot M48.061 SPINAL STENOSIS, LUMBAR REGION WITHOUT N 11/22/2019 ALEXANDRA HARPER MD Ot K76.0 FATTY (CHANGE OF) LIVER, NOT ELSEWHERE C 11/22/2019 ALEXANDRA HARPER MD, Ot N28.89 OTHER SPECIFIED DISORDERS OF KIDNEY AND 11/22/2019 ALEXANDRA HARPER MD Ot M48.061 SPINAL STENOSIS, LUMBAR REGION WITHOUT N 11/22/2019 ALEXANDRA HARPER MD Ot Z98.890 OTHER SPECIFIED POSTPROCEDURAL STATES 11/22/2019 AMANDA PRUETT MD, Ot K57.3 0 DVRTCLOS OF LG INT W/O PERFORATION OR AB 11/22/2019 AMANDA PRUETT MD Ot Z98.1 ARTHRODESIS STATUS 11/22/2019 AMANDA PRUETT MD Ot Z98.8 90 OTHER SPECIFIED POSTPROCEDURAL STATES 11/25/2019 OLINDA PHIPPS MD Ot M48.0 61 SPINAL STENOSIS, LUMBAR REGION WITHOUT N 11/25/2019 OLINDA PHIPPS MD Ot Z98.1 ARTHRODESIS STATUS 11/28/2019 OLINDA PHIPPS MD Ot M48.0 61 SPINAL STENOSIS, LUMBAR REGION WITHOUT N 11/28/2019 OLINDA PHIPPS MD Ot Z98.1 ARTHRODESIS STATUS 12/21/2019 OLINDA PHIPPS MD Ot M48.0 61 SPINAL STENOSIS, LUMBAR REGION WITHOUT N 12/21/2019 OLINDA PHIPPS MD Ot Z98.1 ARTHRODESIS STATUS 12/31/2019 W I10 Essent ial (primary) hypertension [place] V[place] 12/31/2019 W J01.01 Acu te recurrent maxillary sinusitis [place] 01/04/2020 OLINDA PHIPPS MD Ot M48.0 61 SPINAL STENOSIS, LUMBAR REGION WITHOUT N 01/04/2020 OLINDA PHIPPS MD Ot Z98.1 ARTHRODESIS STATUS 04/18/2020 W 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 Kacy Campbell 04/18/2020 W M54.16 Lum bar radiculopathy Kacy Campbell 04/18/2020 W S81.811A S kin tear of right lower leg without complication Kacy Campbell 04/27/2020 W 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 Encounters ACCT No. Visit Date/Time Discharge Status Pt. Type Provider Facility Loc./Unit Complaint 0000 09/16/2017 03:07:56 09/16/2017 23:59:5 9 CLS Outpatient [id number] 11/10/2019 13:18:00 Document Registration [id number] 11/22/2019 12:22:00 020 23:59:59 CLS Outpatient OLINDA PHIPPS MD [facility] RAD LUMBAGO [id number] 07/19/2019 09:37:00 23:59:59 CLS Outpatient AMANDA PRUETT MD [facility] RAD FLANK/BACK PAIN [id number] 11/23/2018 12:15:00 019 23:59:59 CLS Outpatient ALEXANDRA HARPER MD [facility] RAD RT FLANK PAIN [id number] 04/13/2018 09:50:00 018 23:59:59 CLS Outpatient ALEXANDRA HARPER MD [facility] RAD RENAL MASS [id number] 03/11/2018 15:11:00 018 23:59:59 CLS Outpatient ALEXANDRA HARPER MD [facility] RAD LOW BACK PAIN [id number] 10/07/2017 11:47:00 23:59:59 CLS Preadmit ALEXANDRA PARK MD [facility] REHAB MOTILITY PROBLEMS, DYSP HAGIA [id number] 09/17/2017 11:02:00 23:59:59 CLS Preadmit INDIA VARELA MD [facility] RAD SCREENING [id number] 09/10/2017 08:33:00 23:59:59 CLS Outpatient LILLIAM YI RADIO RECORDER [facility] RAD FALL,NASAL TRAUMA [id number] 03/29/2016 13:36:00 14:40:00 DIS Outpatient MARGIE ALCARAZ, CAROLYN Ku [facility] CARD SACROCOCCYGEAL DISORDER [id number] 01/12/2016 11:45:00 23:59:59 CLS Outpatient MEREDITH ALCARAZ, ALEXANDRA Jules [facility] CARD HTN,ADEMA [id number] 03/17/2014 12:25:00 23:59:59 CLS Outpatient KACY CAMPBELL [facility] RAD DYSPNEA [id number] 03/17/2014 12:22:00 23:59:59 CLS Outpatient OLINDA PHIPPS MD [facility] RAD POST OP ACDF [id number] 03/07/2014 07:23:00 23:59:59 [facility] [id number] 03/03/2014 07:26:00 23:59:59 CLS Outpatient PAM DANIELLE MD [facility] PREOP UPPER GI PAIN; GERD [id number] 02/08/2014 08:05:00 23:59:59 CLS Outpatient KACY CAMPBELL [facility] RAD UNCONTROLLED HT N [id number] 09/10/2013 09:17:00 15:33:00 DIS Outpatient OLINDA PHIPPS MD [facility] RAD CERVICAL STENOSIS [id number] 08/12/2013 07:59:00 23:59:59 CLS Outpatient ALEXANDRA ANGUIANO MD [facility] RAD RECC RC7,L C4 RADICULOP ATHY [id number] 04/12/2013 12:16:00 23:59:59 CLS Outpatient INDIA VARELA MD [facility] RAD DYSPNEA,RIB PAIN [id number] 03/24/2013 08:30:00 05/22/2 013 23:59:59 CLS Outpatient ANNMARIE ALCARAZ, ALEXANDRA Ceron [facility] RAD ROTATOR CUFF TEAR [id number] 12/01/2012 11:23:00 Document Registration [id number] 11/19/2012 10:45:00 Document Registration [id number] 11/10/2012 09:36:00 Document Registration [id number] 11/04/2012 08:25:00 Document Registration [id number] 10/16/2012 08:40:00 Document Registration
[2020-05-26] MEDS ORDERED: RX-ONDANSETRON 4 MG ODT (ZOFRAN) PPK #4 SL STA (04:17)
--- NOTE | 2020-05-26 04:26 | ED GU-Female ---
General Chief Complaint: - Urinary Stated Complaint: BLOOD IN URINE,LEFT SIDE OF ABD PAIN Nursing Triage Note: c/o blood in urine since 2099, left abdominal pain radiating to back since 2299. tramadol x2 at 0130 Nursing Sepsis Screen: No Definite Risk Source: patient Exam Limitations: no limitations History of Present Illness Date Seen by Provider: May 26, 2020 Time Seen by Provider: 02:26 Initial Comments This 74-year-old woman presents to the emergency room with sudden onset of left back and flank pain radiating around to the left groin associated with hematuria. She has no history of kidney stones. She cannot get comfortable in the exam room. She is afebrile. She has associated nausea and vomiting. Allergies and Home Medications Allergies Coded Allergies: No Known Allergies (Verified Allergy, Unknown, 03/03/07) Home Medications Alprazolam 0.5 Mg Tablet, 0.5 MG PO HS PRN for ANXIETY, (Reported) NEEDED FOR ANXIETY Amlodipine Besylate 10 Mg Tablet, 10 MG PO DAILY, (Reported) Atorvastatin 20 Mg Tablet, 20 MG PO HS, (Reported) Cetirizine Hcl 10 Mg Tablet, 10 MG PO DAILY PRN for ALLERGY SYMPTOMS, (Reported) NEEDED FOR ALLERGY SYMPTOMS Cyclobenzaprine Hcl 5 Mg Tablet, 5 MG PO Q8H PRN for SPASMS, (Reported) NEEDED FOR MUSCLE SPASMS Doxazosin Mesylate 4 Mg Tablet, 4 MG PO DAILY, (Reported) Doxazosin Mesylate 4 Mg Tablet, 2 MG PO HS, (Reported) TAKES 1/2 (4MG) TABLET AT BEDTIME Esomeprazole Mag Trihydrate 40 Mg Capsule.dr, 40 MG PO BID, (Reported) INCREASE TO TWICE A DAY Hydrocodone/Acetaminophen 1 Each Tablet, 1 EACH PO Q4H PRN for PAIN-MODERATE (5- 7) Prescribed by: RENNY LESLIE on 05/26/20426 Metoprolol Tartrate 100 Mg Tablet, 200 MG PO BID, (Reported) TAKES 2 (100MG) TABLETS TWICE DAILY Ondansetron 4 Mg Tab.rapdis, 4 MG SL Q4H PRN for NAUSEA/VOMITING Prescribed by: RENNY LESLIE on 05/26/20426 Tramadol Hcl 50 Mg Tablet, 50-100 MG PO EVERY 4-6 HOURS PRN for PAIN, (Reported) TAKES 1 TO 2 (50MG) TABLETS EVERY 4-6 HOURS NEEDED FOR PAIN Patient Home Medication List Home Medication List Reviewed: Yes Review of Systems Review of Systems Constitutional: no symptoms reported EENTM: no symptoms reported Respiratory: no symptoms reported Cardiovascular: no symptoms reported Gastrointestinal: see HPI Genitourinary: see HPI : No Musculoskeletal: no symptoms reported Skin: no symptoms reported Psychiatric/Neurological: No Symptoms Reported Endocrine: No Symptoms Reported Hematologic/Lymphatic: No Symptoms Reported Past Ngcwuuc-Xhadiw-Knclwy Hx Past Med/Social Hx: Reviewed Nursing Past Med/Soc Hx Patient Social History Alcohol Use: Denies Use Recreational Drug Use: No Smoking Status: Never a Smoker 2nd Hand Smoke Exposure: No Recent Foreign Travel: No Contact w/Someone Who Travel: No Recent Infectious Disease Expo: No Recent Hopitalizations: No Physical Abuse: No Sexual Abuse: No Mistreated: No Fear: No Immunizations Up To Date Tetanus Booster (TDap): More than 5yrs PED Vaccines UTD: Yes Date of Pneumonia Vaccine: Jul 04, 2010 Date of Influenza Vaccine: Jul 05, 2013 Seasonal Allergies Seasonal Allergies: Yes Past Medical History Surgeries: Yes Orthopedic, Renal Respiratory: No Cardiac: Yes Hypertension Neurological: No : No 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 0.0oz. 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 as tested, no motor/sensory deficits, alert, normal mood/affect, oriented x 3 Skin: normal color, warm/dry Progress/Results/Core Measures Suspected Sepsis Recent Fever Within 48 Hours: No Infection Criteria Present: None New/Unexplained Altered Menta: No Sepsis Screen: No Definite Risk SIRS Temperature: Pulse: 71 Respiratory Rate: 20 Laboratory Tests 05/26/20 02:40: White Blood Count 5.7 Blood Pressure 175 /116 Mean: 135 Laboratory Tests 05/26/20 02:40: Creatinine 0.99, Platelet Count 244, Total Bilirubin 0.3 Results/Orders Lab Results Laboratory Tests Test 05/26/20 02:35 05/26/20 02:40 Range/Units Urine Color LIVAN H Urine Clarity CLOUDY Urine pH 7.0 5-9 Urine Specific [place] 1.010 L 1.016-1.022 Urine Protein TRACE H NEGATIVE Urine Glucose (UA) NEGATIVE NEGATIVE Urine Ketones NEGATIVE NEGATIVE Urine Nitrite NEGATIVE NEGATIVE Urine Bilirubin NEGATIVE NEGATIVE Urine Urobilinogen 0.2 < = 1.0 MG/DL Urine Leukocyte Esterase 1+ H NEGATIVE Urine RBC (Auto) 3+ H NEGATIVE Urine RBC 50-100 H /HPF Urine WBC 0-2 /HPF Urine Squamous Epithelial Cells 0-2 /HPF Urine Crystals NONE /LPF Urine Bacteria NEGATIVE /HPF Urine Casts NONE /LPF Urine Mucus NEGATIVE /LPF Urine Culture Indicated NO White Blood Count 5.7 4.3-11.0 10^3/uL Red Blood Count 4.59 4.35-5.85 10^6/uL Hemoglobin 13.6 11.5-16.0 G/DL Hematocrit 41 35-52 % Mean Corpuscular Volume 90 80-99 FL Mean Corpuscular Hemoglobin 30 25-34 PG Mean Corpuscular Hemoglobin Concent 33 32-36 G/DL Red Cell Distribution Width 12.9 10.0-14.5 % Platelet Count 244 130-400 10^3/uL Mean Platelet Volume 10.2 7.4-10.4 FL Neutrophils (%) (Auto) 61 42-75 % Lymphocytes (%) (Auto) 27 12-44 % Monocytes (%) (Auto) 9 0-12 % Eosinophils (%) (Auto) 3 0-10 % Basophils (%) (Auto) 0 0-10 % Neutrophils # (Auto) 3.5 1.8-7.8 X 10^3 Lymphocytes # (Auto) 1.5 1.0-4.0 X 10^3 Monocytes # (Auto) 0.5 0.0-1.0 X 10^3 Eosinophils # (Auto) 0.1 0.0-0.3 10^3/uL Basophils # (Auto) 0.0 0.0-0.1 10^3/uL Sodium Level 142 135-145 MMOL/L Potassium Level 3.8 3.6-5.0 MMOL/L Chloride Level 105 98-107 MMOL/L Carbon Dioxide Level 24 21-32 MMOL/L Anion Gap 13 5-14 MMOL/L Blood Urea Nitrogen 17 7-18 MG/DL Creatinine 0.99 0.60-1.30 MG/DL Estimat Glomerular Filtration Rate 55 BUN/Creatinine Ratio 17 Glucose Level 115 H 70-105 MG/DL Calcium Level 9.7 8.5-10.1 MG/DL Corrected Calcium 9.5 8.5-10.1 MG/DL Total Bilirubin 0.3 0.1-1.0 MG/DL Aspartate Amino Transf (AST/SGOT) 24 5-34 U/L Alanine Aminotransferase (ALT/SGPT) 17 0-55 U/L Alkaline Phosphatase 98 40-136 U/L Total Protein 6.6 6.4-8.2 GM/DL Albumin 4.2 3.2-4.5 GM/DL My Orders Orders - RENNY GONZALEZ MD Cbc With Automated Diff (05/26/20 02:26) Comprehensive Metabolic Panel (05/26/20 02:26) Ua Culture If Indicated (05/26/20 02:26) Ed Iv/Invasive Line Start (05/26/20 02:26) Ketorolac Injection (Toradol Injection) (05/26/20 03:00) Ondansetron Injection (Zofran Injectio (05/26/20 03:00) Ns Iv 1000 Ml (Sodium Chloride 0.9%) (05/26/20 02:48) Ct Abd/Pelvis Wo(Kidney Stone) (05/26/20 02:54) Abdomen/Kub 1view (05/26/20 04:16) Rx-Hydrocodone/Apap 5-325 Mg (Rx-Vicodin (05/26/20 04:30) Rx-Ondansetron Po (Rx-Zofran Po) (05/26/20 04:17) Medications Given in ED Current Medications Medications Dose Ordered Sig/Evelio Route Start Time Stop Time Status Last Admin Dose Admin Acetaminophen/ Hydrocodone Bitart 1 ea Q4H PRN PO 05/26/20 04:30 05/26/20 04:52 DC 05/26/20 04:47 1 EA Ketorolac Tromethamine 15 mg ONCE ONCE IVP 05/26/20 03:00 05/26/20 03:01 DC 05/26/20 02:53 15 MG Ondansetron HCl 8 mg ONCE ONCE IVP 05/26/20 03:00 05/26/20 03:01 DC 05/26/20 02:53 8 MG Sodium Chloride 1,000 ml @ 0 mls/hr Q0M ONCE IV 05/26/20 02:48 05/26/20 02:50 DC 05/26/20 02:53 0 MLS/HR Vital Signs/I&O 05/26/20 05/26/20 05/26/20 02:26 02:53 04:49 Temp 36.6 36.6 36.5 Pulse 71 65 Resp 20 16 B/P (MAP) 175/116 (135) 188/91 (135) Pulse Ox 98 99 O2 Delivery Room Air Room Air Capillary Refill : Less Than 3 Seconds Blood Pressure Mean: 135 Progress Note : Progress Note Patient's symptoms improved significantly with Zofran and Toradol. Urinalysis revealed hematuria. CT stone search was obtained and a 3.5 mm stone was noted in the proximal left ureter. Patient is being referred to Dr. Pruett. Take-home packets of Zofran and hydrocodone were dispensed. Diagnostic Imaging Diagonstic Imaging: CT Plain Films/CT/US/NM/MRI: abdomen, pelvis Comments CT scan reviewed by me and stat rad report reviewed. There is a 3.5 mm proximal left ureteral stone. Departure Impression Primary Impression: Left ureteral stone Disposition: HOME, SELF-CARE Condition: Improved Departure-Patient Inst. Decision time for Depature: 04:23 Referrals: INDIA AREVALO MD (PCP/Family) Primary Care Physician Patient Instructions: Kidney Stones in Adults Add. Discharge Instructions: Drink plenty of clear liquids. Use your medications as prescribed. Contact Dr. Pruett's office this and is they open in the morning for follow-up. Return to care if you have any further problems or concerns. Strain your urine and bring any stones collected to your follow-up appointment. All discharge instructions reviewed with patient and/or family. Voiced understanding. Scripts Ondansetron (Ondansetron Odt) 4 Mg Tab.rapdis 4 MG SL Q4H PRN for NAUSEA/VOMITING, #10 TAB Prov: RENNY GONZALEZ MD 05/26/20 Hydrocodone/Acetaminophen (Hydrocodone-Acetamin 5-325 mg) 1 Each Tablet 1 EACH PO Q4H PRN for PAIN-MODERATE (5-7), #10 TAB Prov: RENNY GONZALEZ MD 05/26/20 Copy Copies To 1: AMANDA PRUETT MD Copies To 2: INDIA AREVALO MD, JOSHUA T MD May 26, 2020 04:26
[2020-05-26] MEDS ORDERED: ONDA4TAB11 SL (04:27)
[2020-05-26] MEDS ORDERED: HYDR-83 PO (04:27)
[2020-05-26] MEDS ORDERED: RX-HYDROCODONE/APAP 5/325 MG #4 TAB PK PO PRN (04:30)
[2020-05-26 04:49] VITALS: BP 188/91
--- NOTE | 2020-05-26 05:38 | Diagnostic Imaging Report ---
PROCEDURE: CT urinary tract, rule out kidney stone. TECHNIQUE: Multiple contiguous axial images were obtained through the abdomen and pelvis without the use of intravenous contrast. Auto Exposure Controls were utilized during the CT exam to meet ALARA standards for radiation dose reduction. INDICATION: Left flank pain. Gross hematuria. COMPARISON: 07/19/2019. FINDINGS: The heart is unremarkable. The included lung bases are clear. A 3 mm calculus is seen in the proximal left ureter. There is mild left-sided hydroureteronephrosis. Posttreatment changes are noted in the superior pole of the right kidney. The urinary bladder is mildly distended. No bladder calculi are seen. The liver, spleen, pancreas, and adrenal glands have a normal appearance. There is no pathologically enlarged mesenteric or retroperitoneal adenopathy. The bowel loops are nondilated. Diverticuli are seen in the descending and sigmoid colon without evidence of acute diverticulitis. There is no free fluid or free air. Posterior fusion changes are visualized from L3 to S1 with bipedicle screws and fusion rods. Endplate degenerative changes are present at the L2-L3 level. No acute fractures are visualized. There is calcified aortic and iliac atherosclerotic plaque without evidence of aneurysm. There is no free air, loculated collection, or adenopathy in the pelvis. IMPRESSION: 1. Calculus in the proximal left ureter measuring 3 mm with mild left-sided hydroureteronephrosis. Agree with overnight report. Dictated by: Dictated on workstation # [id number]
--- NOTE | 2020-05-26 06:15 | Diagnostic Imaging Report ---
Indication: Abdominal and left flank pain KUB 4:52 AM There are postsurgical changes from fusion of the lumbosacral spine. Bowel gas pattern is normal. Lung bases are clear. There are no pathologic masses calcifications. IMPRESSION: No acute abnormalities in the abdomen Dictated by: Dictated on workstation # [id number]
== END 2020-05-26 04:52 | disposition home or self-care (01) ==
LOC: EDUNIT# 02:20 → ER 02:22
DX: N13.2 Hydronephrosis with renal and ureteral calculous obstruction (principal); I10 Essential (primary) hypertension; F41.9 Anxiety disorder, unspecified
CPT/HCPCS: 36415; 74018; 74176; 80053; 81000; 85025

== ENCOUNTER → 2020-05-29 | Outpatient (CLI) | payer MEDICARE, OTHER ==
[~2020-05-29] MED LIST changes: +GABA-486; +HYDR-3812 PO; +ONDA4TAB11 SL; +OXYB10TA29
--- NOTE | 2020-05-29 10:04 | Diagnostic Imaging Report ---
INDICATION: Left ureteral stone. TIME OF EXAM: 9:58 AM Correlation is made with prior radiograph from 05/26/2020. Bowel gas pattern is unremarkable. Spinal instrumentation lower lumbosacral spine is noted. Previously noted proximal left ureteric calculus on CT study 3 days earlier is not well-visualized by plain film. No significant abnormality seen. IMPRESSION: No definite radiopaque urinary tract calculi are seen. The tiny proximal left ureteric calculus noted [address] is not well seen by radiography. Dictated by: Dictated on workstation # [id number]
== END ==
LOC: LAB 09:37
PROVIDERS: ATTEND Urology
DX: N20.1 Calculus of ureter (principal)
CPT/HCPCS: 74018

== ENCOUNTER 2020-07-13 21:54 | Emergency (ER) | payer MEDICARE, OTHER ==
[~2020-07-13 21:54] MED LIST changes: +ACET325C7 PO; +ACHD5005 PO; +ALPR0.254 PO; +AMLO5TAB9 PO; +ASPI-789 PO; +ATOR20TA66 PO; +BIOT10004 PO; +FEXO180T84 PO; -GABA-486; +GABA-486 PO; -HYDR-3812 PO; +METO100T12 PO; +MULT-1067 PO; +OMEP20CA18 PO; -OXYB10TA29; +OXYB10TA29 PO; +PEG15DRO9 OU; +TRAM50TA3 PO
--- NOTE | 2020-07-13 22:14 | NUR ---
PT RECENTLY DC'D FROM ROOM 510. WILL BE DIRECT ADMIT BACK TO ROOM [address] CANDELARIO.
== END 2020-07-13 22:14 | disposition left against medical advice (07) ==
LOC: EDUNIT# 21:54 → ER 21:57
DX: K62.5 Hemorrhage of anus and rectum (principal)

== ENCOUNTER 2020-07-13 22:20 | Inpatient (IN) | payer MEDICARE, OTHER ==
[~2020-07-13] VITALS: Ht 152 cm; Wt 69.4 kg
[2020-07-13 22:38] VITALS: BP 124/75
[2020-07-13 22:45] VITALS: BP 124/75
[2020-07-13] MEDS ORDERED: fentaNYL INJECTION 100 MCG/2 ML AMP IVP PRN (23:00)
[2020-07-14] VITALS (7 sets, daily range): BP systolic 130–186; BP diastolic 58–84
[2020-07-14 03:58] LABS: BASOPHILS % (AUTO) 0 % (0-10); EOSINOPHILS # (AUTO) 0.1 10^3/uL (0.0-0.3); EOSINOPHILS % (AUTO) 1 % (0-10); HEMATOCRIT 28 % (35-52); HEMOGLOBIN 9.2 G/DL (11.5-16.0); LYMPHOCYTES # (AUTO) 0.8 X 10^3 (1.0-4.0); LYMPHOCYTES % (AUTO) 16 % (12-44); MEAN CORPUSCULAR HEMOGLOBIN 29 PG (25-34); MEAN CORPUSCULAR HGB CONC 34 G/DL (32-36); MEAN CORPUSCULAR VOLUME 88 FL (80-99); MEAN PLATELET VOLUME 10.3 FL (7.4-10.4); MONOCYTES # (AUTO) 0.5 X 10^3 (0.0-1.0); MONOCYTES % (AUTO) 10 % (0-12); NEUTROPHILS # (AUTO) 3.9 X 10^3 (1.8-7.8); NEUTROPHILS % (AUTO) 74 % (42-75); PLATELET COUNT 164 10^3/uL (130-400); WHITE BLOOD COUNT 5.3 10^3/uL (4.3-11.0)
[2020-07-14] MEDS ORDERED: FLU QUAD HIGH DOSE 240 MCG/0.7 ML 2020-21 (FLUZONE) IM ONE (07:30)
--- NOTE | 2020-07-14 08:52 | Progress Note - Surgery ---
PAOLA COLUNGA MED STUDENT 07/14/20 0852: Subjective Date Seen by a Provider: Jul 14, 2020 Time Seen by a Provider: 08:20 Subjective/Events-last exam pt was sitting up in the chair. pt stated that when she went home yesterday she immediately had more rectal bleeding and came right back to the hospital. pt stated that she did eat regular food after her colonoscopy performed yesterday by Dr. Loaiza. pt stated that she had three more bloody stools overnight. pt described them as bright red and then maroon colored clots coming out. pt said that she was not having any abdominal pain. no tenderness was noted on palpation. Focused Exam Respiratory: Chest Non Tender, Lungs Clear, Normal Breath Sounds, No Accessory Muscle Use, No Respiratory Distress Cardiovascular: Regular Rate, Rhythm, No Murmur Peripheral Pulses: 2+ Carotid (R), 2+ Carotid (L), 2+ Radial Pulses (R), 2+ Radial Pulses (L) Skin: normal color, warm/dry; No diaphoresis Objective Exam Vital Signs Date Time Temp Pulse Resp B/P (MAP) Pulse Ox O2 Delivery O2 Flow Rate FiO2 07/14/20 08:00 36.9 90 17 163/83 (109) 99 Room Air 07/14/20 04:00 Room Air 07/14/20 03:26 36.1 56 20 151/60 (90) 100 Room Air 07/14/20 00:00 Room Air 07/13/20 22:45 Room Air 07/13/20 22:45 36.6 69 20 124/75 98 Room Air 07/13/20 22:40 36.6 07/13/20 22:38 69 20 124/75 (91) 98 Room Air I & O 07/14/20 07:00 Intake Total 0 ml Balance 0 ml Capillary Refill : General Appearance: No Apparent Distress, WD/WN HEENT: No Pale Conjunctivae (L), No Pale Conjunctivae (R), No Scleral Icterus (L), No Scleral Icterus (R) Neck: Non Tender; No Lymphadenopathy (L), No Lymphadenopathy (R) Respiratory: Chest Non Tender, Lungs Clear, Normal Breath Sounds, No Accessory Muscle Use, No Respiratory Distress Cardiovascular: Regular Rate, Rhythm, No Murmur Peripheral Pulses: 2+ Carotid (R), 2+ Carotid (L), 2+ Radial Pulses (R), 2+ Radial Pulses (L) Gastrointestinal: normal bowel sounds, non tender, soft; No distended Extremity: Normal Capillary Refill Neurologic/Psychiatric: Alert, Oriented x3, No Motor/Sensory Deficits, Normal Mood/Affect, admissions nurse II-XII Norm as Tested Skin: Normal Color, Warm/Dry; No Diaphoresis Lymphatic: No Adenopathy Results Lab Laboratory Tests 07/14/20 02:55: White Blood Count 5.3, Red Blood Count 3.13L, Hemoglobin 9.2L, Hematocrit 28L, Mean Corpuscular Volume 88, Mean Corpuscular Hemoglobin 29, Mean Corpuscular Hemoglobin Concent 34, Red Cell Distribution Width 15.1H, Platelet Count 164, Mean Platelet Volume 10.3, Neutrophils (%) (Auto) 74, Lymphocytes (%) (Auto) 16, Monocytes (%) (Auto) 10, Eosinophils (%) (Auto) 1, Basophils (%) (Auto) 0, Neutrophils # (Auto) 3.9, Lymphocytes # (Auto) 0.8L, Monocytes # (Auto) 0.5, Eosinophils # (Auto) 0.1, Basophils # (Auto) 0.0 Assessment/Plan Assessment/Plan Assessment/Plan Acute GI bleed Clinical Quality Measures DVT/VTE Risk/Contraindication: Risk Factor Score Per Nursin RFS Level Per Nursing on Admit: 3=High NAPOLEON LOAIZA DO 07/14/20 1102: Subjective Time Seen by a Provider: 09:33 Subjective/Events-last exam Pt seen and examined, states she went home and had 3 large BM's that were bright red blood. However, she has not had another bloody stool since 3am. She thinks maybe she feels a little weak. Review of Systems General: Fatigue Pulmonary: No Dyspnea, No Cough Cardiovascular: No: Chest Pain, Palpitations Gastrointestinal: No: Nausea, Vomiting, Abdominal Pain Objective Exam General Appearance: No Apparent Distress, WD/WN Respiratory: Chest Non Tender, Lungs Clear, Normal Breath Sounds, No Accessory Muscle Use, No Respiratory Distress Cardiovascular: Regular Rate, Rhythm, No Murmur Gastrointestinal: normal bowel sounds, non tender, soft Neurologic/Psychiatric: Alert, Oriented x3, Normal Mood/Affect Skin: Normal Color, Warm/Dry Assessment/Plan Assessment/Plan Assessment/Plan Rectal Bleed Anemia Plan is to do EGD and Flex sig to see if we can find source of bleeding. I did talk to pt and told her it is possible we might not find anything again. She wants to try and look; states she had an EGD before and was told she has ulcers. We discussed the risks and complications of procedures; not limited to pain, bleeding, infection and even esophageal or intestinal perforation. All questions answered to her satisfaction. Supervisory-Addendum Brief Verification & Attestation Participated in pt care: history, MDM, physical Personally performed: exam, history, MDM Care discussed with: Medical Student Procedures: n/a Verification and Attestation of Medical Student E/M Service A medical student performed and documented this service. I then reviewed and verified all information documented by the medical student and made modifications to such information, when appropriate. I personally performed a physical exam, medical decision making and then discussed any differences between the notes and made revisions as necessary to create one note. Napoleon Loaiza , 07/14/20 , 11:02 PAOLA COLUNGA MED STUDENT Jul 14, 2020 08:52 NAPOLEON LOAIZA DO Jul 14, 2020 11:02
[2020-07-14] MEDS ORDERED: MIDAZOLAM 2 MG/2 ML (VERSED) VIAL ONE ×2 (10:54→11:29)
[2020-07-14] MEDS ORDERED: PROPOFOL INJECTION 50 ML IV ONE (10:54)
--- NOTE | 2020-07-14 11:11 | NUR ---
PT LEAVING FLOOR VIA WC ACCOMPANIED BY STAFF FOR PROCEDURE. WILL WAIT FOR PT TO RETURN.
[2020-07-14] MEDS ORDERED: LACTATED RINGERS 1,000 ML IV ONE (11:13)
[2020-07-14] MEDS ORDERED: LACTATED RINGERS 1,000 ML IV STA (11:40)
[2020-07-14] MEDS ORDERED: proPOfol 200 MG/20 ML (DIPRIVAN) VIAL IV ONE (11:49)
--- NOTE | 2020-07-14 12:14 | Progress Note-Post Operative ---
Post-Operative Progess Note Surgeon (s)/Massage Therapy Instructor (s) Surgeon KIT CANDELARIO DO Massage Therapy Instructor: LORENZO Mathews Pre-Operative Diagnosis rectal bleed Post-Operative Diagnosis Normal Stomach Rectal bleed ?? from Diverticula Rectal polyp Int hemorrhoids - not bleeding Procedure & Operative Findings Date of Procedure 07/14/20 Procedure Performed/Findings EGD Colonoscopy with Hot bx Anesthesia Type IV sedation by ELECTRONIC PARTS SALESPERSON Estimated Blood Loss Estimated blood loss (mL): none Specimens/Packing Specimens Removed rectal polyp KIT CANDELARIO DO Jul 14, 2020 12:14
--- NOTE | 2020-07-14 13:25 | NUR ---
Pt is Buddhism. Anointed 07/13 by Fr Jet Reddy.
--- NOTE | 2020-07-14 14:10 | NUR ---
Patient arrived to room via wheelchair. No distress noted at this time. VSS. Call light within reach.
--- NOTE | 2020-07-14 15:46 | NUR ---
CM/SS: This worker visited with pt as to plan for discharge Plan: Pt is from home and will return there when deemed appropriate - at this time it is undetermined if pt will have services Summary: Pt reports she is from home. She is a little groggy from the medicine. She reports she lives at home with her and that she has not historically had services in the home. Pt reports having a walker at home and she uses it from time to time. Pt reports she does not think she will need anything at this time when she discharges. This worker will follow up.
[2020-07-14] MEDS ORDERED: meTOprolol TARTRATE 50 MG (LOPRESSOR) TAB PO SCH (21:00)
--- NOTE | 2020-07-14 21:03 | NUR ---
b/p 168/76. dr. benz called. order to start home medication metoprolol 100mg hs.
[2020-07-14] MEDS: ACETAMINOPHEN 325 MG TABLET PO PRN (21:25)
--- NOTE | 2020-07-14 21:41 | NUR ---
PT STATES SHE TOOK HER OWN METOPROLOL.
[2020-07-15] VITALS (7 sets, daily range): BP systolic 135–166; BP diastolic 61–87
--- NOTE | 2020-07-15 00:42 | OPERATIVE REPORT ---
DATE OF SERVICE: 07/14/2020 PREOPERATIVE DIAGNOSIS: Rectal bleed. POSTOPERATIVE DIAGNOSES: Rectal bleed, inflammatory polyp and normal stomach. PROCEDURE: 1. EGD. 2. Colonoscopy with hot biopsy. SURGEON: Napoleon Loaiza DO PANAMA HAT HYDRAULIC PRESS OPERATOR: Agnieszka Keys MS3 ANESTHESIA: IV sedation by the GROUP UNDERWRITER. SPECIMEN: Hot biopsy of a polyp from the rectum. BLOOD LOSS: None. FLUIDS: Per anesthesia. POSTOPERATIVE CONDITION: Stable. INDICATION FOR PROCEDURE: The patient is a 74-year-old female who is in the hospital for rectal bleeding, had a previous colonoscopy, but there was no bleeding at that time and then she started rebleeding again. FINDINGS: The patient had a lot of blood in the sigmoid colon, some of the descending colon, but none in the transverse colon or ascending colon. The stomach looked normal, did not really see any gastritis and she does have hemorrhoids, but they were not bleeding. PROCEDURE NOTE: After informed consent was obtained, the patient was brought to the endoscopy suite, placed in bed in left lateral decubitus position. She was administered IV sedation by the GROUP UNDERWRITER. DICTATION ENDS HERE. Job ID: [id number] DocumentID: [id number] Dictated Date: 07/14/2020 13:39:57 Candy Feeder Date: 07/15/2020 00:41:23 Dictated By: NAPOLEON LOAIZA DO
--- NOTE | 2020-07-15 00:51 | OPERATIVE REPORT ---
DATE OF SERVICE: CONTINUATION We started the procedure with EGD going down the mouth through the esophagus into the stomach. The stomach looked fine. There were no ulcers. She did have some gastric polyps, did not see a hiatal hernia. Pushed into the duodenum, first, second and third portion of duodenum, did not see any bleeding, slowly withdrew the scope, took a picture of the duodenum. The antrum, the body of stomach and the GE junction from below and from above again looked fine and at this point, then suctioned the air out of stomach and pulled the scope up the esophagus and out the mouth. Switched camera, switched gloves, went down below, started what was going to be a flex sig. Immediately upon entering the rectum, saw blood, took a picture of this and then pushed up, able to get all the way to the ascending colon went past the transverse colon, could see no blood in the transverse and ascending colon. There was some mild poop on the damon and then through the descending colon, saw a lot of blood. The upper portion of the descending colon was not that bad, but the lower portion and sigmoid where most of the blood was situated, saw a polyp in the rectum looked like may be inflammatory polyp, it could have been bleeding, so I did a hot biopsy of this and removed it. Did not see any active bleeding. Took a picture of internal hemorrhoids. These were definitely not the source of bleeding either most likely the source of bleeding was the diverticula, although we did not see any active bleed. At this point, having retroflexed the scope to look at the hemorrhoids, had flushed out as much as possible. I did not see any active bleeding. Removed the scope. The patient tolerated the procedure. She was recovered in endoscopy suite. Job ID: [id number] DocumentID: [id number] Dictated Date: 07/14/2020 13:55:07 Cryptoanalysis Teacher Date: 07/15/2020 00:49:46 Dictated By: KIT CANDELARIO DO
[2020-07-15 10:10] LABS: BASOPHILS % (AUTO) 0 % (0-10); EOSINOPHILS # (AUTO) 0.1 10^3/uL (0.0-0.3); EOSINOPHILS % (AUTO) 1 % (0-10); HEMATOCRIT 25 % (35-52); HEMOGLOBIN 8.2 G/DL (11.5-16.0); LYMPHOCYTES # (AUTO) 0.8 X 10^3 (1.0-4.0); LYMPHOCYTES % (AUTO) 12 % (12-44); MEAN CORPUSCULAR HEMOGLOBIN 29 PG (25-34); MEAN CORPUSCULAR HGB CONC 33 G/DL (32-36); MEAN CORPUSCULAR VOLUME 89 FL (80-99); MEAN PLATELET VOLUME 10.2 FL (7.4-10.4); MONOCYTES # (AUTO) 0.5 X 10^3 (0.0-1.0); MONOCYTES % (AUTO) 8 % (0-12); NEUTROPHILS # (AUTO) 5.3 X 10^3 (1.8-7.8); NEUTROPHILS % (AUTO) 79 % (42-75); PLATELET COUNT 190 10^3/uL (130-400); WHITE BLOOD COUNT 6.7 10^3/uL (4.3-11.0)
[2020-07-15] MEDS ORDERED: PATIENT MAY USE OWN MED,SINGLE MED PO SCH ×3 (10:15→12:45)
--- NOTE | 2020-07-15 11:54 | Consultation ---
History of Present Illness History of Present Illness Patient Consulted On(letty/time) 07/15/20 11:48 Date Seen by Provider: Jul 15, 2020 Time Seen by Provider: 11:48 History of Present Illness This is a 74 year old female of Dr. Varela'sonido for whom I am covering, with recent admission for gastrointestinal hemorrhage. She underwent colonoscopy which showed no active bleeding so she was discharged to home. However, she presented back to the emergency room the evening of discharge due to more bleeding. She was admitted by Dr. Loaiza and underwent an EGD and flex sig. She once again had no active bleeding and no obvious source of bleeding. I am asked to consult for medical management. Allergies and Home Medications Allergies Coded Allergies: YANELYANo Known Allergies (Verified Allergy, Unknown, 03/03/07) Home Medications Acetaminophen 325 Mg Capsule, 650 MG PO Q6H PRN for PAIN-MILD (1-4), (Reported) Alprazolam 0.25 Mg Tablet, 0.125-0.25 MG PO HS PRN for ANXIETY, (Reported) TAKES TO 1 TAB Amlodipine Besylate 5 Mg Tablet, 5 MG PO DAILY, (Reported) Aspirin/Acetaminophen/Caffeine 1 Each Tablet, 2 EACH PO Q6-8HR PRN for Headache, (Reported) Atorvastatin Calcium 20 Mg Tablet, 20 MG PO HS, (Reported) Biotin 1,000 Mcg Tab.chew, 1,000 MCG PO DAILY, (Reported) Fexofenadine HCl 180 Mg Tablet, 180 MG PO DAILY PRN for ALLERGY SYMPTOMS, (Reported) Gabapentin 100 Mg Capsule, 100 MG PO HS, (Reported) Metoprolol Tartrate 100 Mg Tablet, 150 MG PO DAILY, (Reported) TAKES 1 & (100MG) TABS Metoprolol Tartrate 100 Mg Tablet, 100 MG PO HS, (Reported) TAKES 150MG (1 & 100MG TABS) DAILY AND 100MG IN THE EVENING Multivitamin/Iron/Folic Acid 1 Each Tablet, 1 EACH PO DAILY, (Reported) Omeprazole 20 Mg Capsule.dr, 40 MG PO DAILY, (Reported) TAKES 2 (20MG) TABS Oxybutynin Chloride 10 Mg Tab.er.24, 10 MG PO DAILY, (Reported) Peg 400/Hypromellose/Glycerin 15 Ml Drops, 2 DROPS OU PRN PRN for DRY EYES, (Reported) Tramadol HCl 50 Mg Tablet, 50-100 MG PO Q8H PRN for PAIN-MODERATE (5-7), (Reported) Patient Home Medication List Home Medication List Reviewed: Yes Past Ujzkxee-Nzrbws-Zbwcnb Hx Past Med/Social Hx: Reviewed Nursing Past Med/Soc Hx Patient Social History Alcohol Use: Rarely Uses Number of Drinks Today: Alcohol Beverage of Choice: Wine Recreational Drug Use: No 2nd Hand Smoke Exposure: No Recent Foreign Travel: No Contact w/Someone Who Travel: No Recent Hopitalizations: No Immunizations Up To Date Tetanus Booster (TDap): More than 5yrs PED Vaccines UTD: Yes Date of Pneumonia Vaccine: Jul 04, 2010 Date of Influenza Vaccine: Jul 05, 2019 Seasonal Allergies Seasonal Allergies: Yes Past Medical History 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 Disorders: No 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 Genitourinary: Yes UTI-Chronic Gastrointestinal: Yes Diverticulosis, Irritable Bowel Musculoskeletal: Yes (DJD) Arthritis, Rheumatoid Arthritis Endocrine: No HEENT: No Cancer: No Psychosocial: Yes Anxiety Integumentary: No Blood Disorders: No Adverse Reaction/Blood Tranf: No Family Medical History Heart Disease, Hypertension Review of Systems Review of Systems General: Fatigue Pulmonary: No Dyspnea, No Cough Cardiovascular: No: Chest Pain, Palpitations Gastrointestinal: No: Nausea, Vomiting, Abdominal Pain Neurological: Weakness All Other Systems Reviewed All Other Systems Reviewed: Yes Physical Exam Vital Signs Vital Signs - First Documented 07/13/20 07/13/20 07/14/20 22:38 22:40 12:18 Temp 36.6 Pulse 69 Resp 20 B/P (MAP) 124/75 (91) Pulse Ox 98 O2 Delivery Room Air O2 Flow Rate 5 Capillary Refill : Less Than 3 Seconds Height, Weight, BMI Height: 5'1.00" Weight: 170lbs. 0.0oz. [id number]; 30.47 BMI Method: General Appearance: No Apparent Distress HEENT: Normal ENT Inspection Neck: Supple Respiratory: Lungs Clear Cardiovascular: Regular Rate, Rhythm Gastrointestinal: Normal Bowel Sounds, Non Tender, Soft Rectal: Deferred Back: No CVA Tenderness Extremity: Non Tender, No Calf Tenderness, No Pedal Edema Neurologic/Psychiatric: Alert, Oriented x3 Skin: Warm/Dry Comments Laboratory Tests 07/15/20 09:33: White Blood Count 6.7, Red Blood Count 2.80L, Hemoglobin 8.2L, Hematocrit 25L, Mean Corpuscular Volume 89, Mean Corpuscular Hemoglobin 29, Mean Corpuscular Hemoglobin Concent 33, Red Cell Distribution Width 15.5H, Platelet Count 190, Mean Platelet Volume 10.2, Neutrophils (%) (Auto) 79H, Lymphocytes (%) (Auto) 12, Monocytes (%) (Auto) 8, Eosinophils (%) (Auto) 1, Basophils (%) (Auto) 0, Neutrophils # (Auto) 5.3, Lymphocytes # (Auto) 0.8L, Monocytes # (Auto) 0.5, Eosinophils # (Auto) 0.1, Basophils # (Auto) 0.0 Assessment/Plan Assessment/Plan Admission Dx 1. Acute Gastrointestinal Hemorrhage--had colonoscopy and now follow up EGD and flex sig with no active bleeding--has not had bloody stool since last night--will monitor for recurrence of bleeding and await biopsy results 2. Acute Blood Loss Anemia--monitor H/H and transfuse as necessary 3. Hypertension--resume low dose amlodopine 4. Chronic Low Back pain--has tramadol prn and fentanyl for severe pain Admission Status: Observation Clinical Quality Measures DVT/VTE Risk/Contraindication: Risk Factor Score Per Nursin RFS Level Per Nursing on Admit: 3=High KAITLYNN OJEDA DO Jul 15, 2020 11:54
[2020-07-15] MEDS ORDERED: amLODIPine 2.5MG (NORVASC) TAB PO ONE (12:00)
--- NOTE | 2020-07-15 12:12 | Progress Note ---
Subjective Date Seen by a Provider: Jul 15, 2020 Time Seen by a Provider: 11:00 Subjective/Events-last exam doing well. no clinical bleed since sigmoidoscopy. only complaint back pain. tolerating diet. Objective Exam Vital Signs Date Time Temp Pulse Resp B/P (MAP) Pulse Ox O2 Delivery O2 Flow Rate FiO2 07/15/20 11:01 37.1 80 17 166/87 (113) 97 Room Air 07/15/20 09:00 Room Air 07/15/20 07:23 37.0 68 14 160/83 (108) 98 Room Air 07/15/20 04:00 36.8 60 18 159/76 (103) 99 Room Air 07/15/20 00:00 37.0 56 18 135/63 (87) 99 Room Air 07/14/20 21:55 37.0 07/14/20 21:25 37.9 07/14/20 21:00 Room Air 07/14/20 19:50 37.9 86 20 168/76 (106) 99 Room Air 07/14/20 16:00 36.9 75 18 164/72 (102) 100 Room Air 07/14/20 14:20 36.2 86 18 186/84 (118) 97 Room Air 07/14/20 12:23 62 16 97 Room Air 07/14/20 12:18 60 16 99 OxyMask 5 I & O 07/15/20 07:00 Intake Total 1095 ml Balance 1095 ml Capillary Refill : Less Than 3 Seconds General Appearance: No Apparent Distress HEENT: PERRL/EOMI Neck: Full Range of Motion Respiratory: Chest Non Tender, Lungs Clear, Normal Breath Sounds Cardiovascular: Regular Rate, Rhythm Gastrointestinal: normal bowel sounds, non tender, soft Extremity: Normal Capillary Refill Neurologic/Psychiatric: Alert, Oriented x3 Skin: Normal Color Lymphatic: No Adenopathy Results Lab Laboratory Tests 07/15/20 09:33: White Blood Count 6.7, Red Blood Count 2.80L, Hemoglobin 8.2L, Hematocrit 25L, Mean Corpuscular Volume 89, Mean Corpuscular Hemoglobin 29, Mean Corpuscular H emoglobin Concent 33, Red Cell Distribution Width 15.5H, Platelet Count 190, Mean Platelet Volume 10.2, Neutrophils (%) (Auto) 79H, Lymphocytes (%) (Auto) 12, Monocytes (%) (Auto) 8, Eosinophils (%) (Auto) 1, Basophils (%) (Auto) 0, Neutrophils # (Auto) 5.3, Lymphocytes # (Auto) 0.8L, Monocytes # (Auto) 0.5, Eosinophils # (Auto) 0.1, Basophils # (Auto) 0.0 Assessment/Plan Assessment/Plan Assess & Plan/Chief Complaint diverticular bleed. PO pain med for back pain. reg diet for now then bowel prep tomorrow. Clinical Quality Measures DVT/VTE Risk/Contraindication: Risk Factor Score Per Nursin RFS Level Per Nursing on Admit: 3=High HENNY SKINNER MD Jul 15, 2020 12:12
[2020-07-15] MEDS: HYDROcodone/APAP 7.5 MG/325 MG (LORTAB, LORCET PLUS) TABLET PO PRN ×2 (12:49→20:55)
[2020-07-15] MEDS ORDERED: amLODIPine 5 MG (NORVASC) TAB PO NR (13:57)
[2020-07-15] MEDS: ACETAMINOPHEN 325 MG TABLET PO PRN (16:16)
[2020-07-16] VITALS (10 sets, daily range): BP systolic 122–177; BP diastolic 60–100
[2020-07-16 05:07] LABS: BASOPHILS % (AUTO) 0 % (0-10); EOSINOPHILS # (AUTO) 0.1 10^3/uL (0.0-0.3); EOSINOPHILS % (AUTO) 2 % (0-10); HEMATOCRIT 22 % (35-52); HEMOGLOBIN 7.3 G/DL (11.5-16.0); LYMPHOCYTES # (AUTO) 1.2 X 10^3 (1.0-4.0); LYMPHOCYTES % (AUTO) 26 % (12-44); MEAN CORPUSCULAR HEMOGLOBIN 29 PG (25-34); MEAN CORPUSCULAR HGB CONC 33 G/DL (32-36); MEAN CORPUSCULAR VOLUME 90 FL (80-99); MEAN PLATELET VOLUME 9.4 FL (7.4-10.4); MONOCYTES # (AUTO) 0.5 X 10^3 (0.0-1.0); MONOCYTES % (AUTO) 11 % (0-12); NEUTROPHILS # (AUTO) 2.8 X 10^3 (1.8-7.8); NEUTROPHILS % (AUTO) 61 % (42-75); PLATELET COUNT 177 10^3/uL (130-400); WHITE BLOOD COUNT 4.5 10^3/uL (4.3-11.0)
[2020-07-16 05:20] LABS: ALBUMIN 2.8 GM/DL (3.2-4.5); CHLORIDE 107 MMOL/L (98-107); SODIUM 142 MMOL/L (135-145)
[2020-07-16 05:22] LABS: CALCIUM 7.7 MG/DL (8.5-10.1)
[2020-07-16 05:23] LABS: GLUCOSE 88 MG/DL (70-105); TOTAL PROTEIN 4.4 GM/DL (6.4-8.2)
[2020-07-16 05:24] LABS: CARBON DIOXIDE 26 MMOL/L (21-32)
[2020-07-16 05:25] LABS: BILIRUBIN,TOTAL 0.4 MG/DL (0.1-1.0)
[2020-07-16 05:26] LABS: ALKALINE PHOSPHATASE 44 U/L (40-136); CREATININE SERUM 0.53 MG/DL (0.60-1.30); GFR ESTIMATED > 60
[2020-07-16 05:27] LABS: BUN/CREATININE RATIO 13
[2020-07-16 05:29] LABS: ALANINE AMINOTRANSFERASE 12 U/L (0-55)
[2020-07-16] MEDS: amLODIPine 5 MG (NORVASC) TAB PO SCH (08:24)
--- NOTE | 2020-07-16 11:24 | Progress Note ---
Subjective Date Seen by a Provider: Jul 16, 2020 Time Seen by a Provider: 11:18 Subjective/Events-last exam Fwup acute gastrointestinal hemorrhage, acute blood loss anemia, hypertension. Had no further bleeding yesterday or last night. Did not have a BM yesterday or last night either. Patient states she wants Dr. Sanchez to do her surgery since she has seen him in the past for other procedures. Objective Exam Vital Signs Date Time Temp Pulse Resp B/P (MAP) Pulse Ox O2 Delivery O2 Flow Rate FiO2 07/16/20 08:12 36.9 68 18 146/78 (100) 98 Room Air 07/16/20 04:00 36.0 54 18 125/61 (82) 98 Room Air 07/16/20 00:00 36.7 60 18 131/60 (83) 96 Room Air 07/15/20 21:00 Room Air 07/15/20 19:15 36.8 75 20 136/73 (94) 100 Room Air 07/15/20 15:46 36.9 60 20 163/61 (95) 97 Room Air I & O 07/16/20 07:00 Intake Total 1700 ml Balance 1700 ml Capillary Refill : Less Than 3 Seconds General Appearance: No Apparent Distress Respiratory: Lungs Clear Cardiovascular: Regular Rate, Rhythm Gastrointestinal: non tender, soft Extremity: Non Tender, No Calf Tenderness, No Pedal Edema Neurologic/Psychiatric: Alert, Oriented x3 Skin: Warm/Dry Results Lab Laboratory Tests 07/16/20 04:55: White Blood Count 4.5, Red Blood Count 2.48L, Hemoglobin 7.3L, Hematocrit 22L, Mean Corpuscular Volume 90, Mean Corpuscular Hemoglobin 29, Mean Corpuscular He moglobin Concent 33, Red Cell Distribution Width 15.5H, Platelet Count 177, Mean Platelet Volume 9.4, Neutrophils (%) (Auto) 61, Lymphocytes (%) (Auto) 26, Monocytes (%) (Auto) 11, Eosinophils (%) (Auto) 2, Basophils (%) (Auto) 0, Neut rophils # (Auto) 2.8, Lymphocytes # (Auto) 1.2, Monocytes # (Auto) 0.5, Eosinophils # (Auto) 0.1, Basophils # (Auto) 0.0, Sodium Level 142, Potassium Level 3.0L, Chloride Level 107, Carbon Dioxide Level 26, Anion Gap 9, Blood Urea Nitrogen 7, Creatinine 0.53L, Estimat Glomerular Filtration Rate > 60, BUN/Creatinine Ratio 13, Glucose Level 88, Calcium Level 7.7L, Corrected Calcium 8.7, Total Bilirubin 0.4, Aspartate Amino Transf (AST/SGOT) 20, Alanine Aminotransferase (ALT/SGPT) 12, Alkaline Phosphatase 44, Total Protein 4.4L, Albumin 2.8L Assessment/Plan Assessment/Plan Assess & Plan/Chief Complaint 1. Acute Gastrointestinal Bleed--recurrent, suspect from diverticula, plan is for sigmoid resection by surgery 2. Acute Blood Loss Anemia from #1--will give 1 u of pRBCs today since Hgb dropped to 7.3 and surgery is likely tomorrow 3. Hypertension--improved with adding low dose amlodopine 4. Hypokalemia--replace potassium 5. Lumbar Degenerative Disc Disease--was supposed to have surgery last week but was postponed due to her GI hemorrhage 5. RA--follows routinely with Dr. Madison Clinical Quality Measures Admission Status Admission Dx 1. Acute Gastrointestinal Hemorrhage--had colonoscopy and now follow up EGD and flex sig with no active bleeding--has not had bloody stool since last night--will monitor for recurrence of bleeding and await biopsy results 2. Acute Blood Loss Anemia--monitor H/H and transfuse as necessary 3. Hypertension--resume low dose amlodopine 4. Chronic Low Back pain--has tramadol prn and fentanyl for severe pain DVT/VTE Risk/Contraindication: Risk Factor Score Per Nursin RFS Level Per Nursing on Admit: 3=High KAITLYNN OJEDA DO Jul 16, 2020 11:24
[2020-07-16] MEDS ORDERED: KCL 20 MEQ TAB (K-DUR) PO ONE (11:30)
[2020-07-16] MEDS ORDERED: NS IV 500 ML 500 ML IV SCH (11:30)
[2020-07-16] MEDS ORDERED: BISACODYL 5 MG (DULCOLAX) TABLET PO SCH ×2 (12:00→15:00)
[2020-07-16] MEDS: POTASSIUM CL 10MEQ/50ML IVPB 50 ML IV SCH ×2 (12:18→14:30)
[2020-07-16] MEDS ORDERED: NEOMYCIN SULFATE 500 MG TAB PO SCH (13:00)
[2020-07-16] MEDS ORDERED: metroNIDAZOLE 500 MG (FLAGYL) TAB PO SCH (13:00)
--- NOTE | 2020-07-16 13:00 | NUR ---
PATIENT REFUSED BOWEL PREP, PATIENT INFORMED NURSE SHE DID NOT WANT TO HAVE SURGERY ASHLEIGH 07/17/20 AND REFUSED BOWEL PREP, PATIENT STATES SHE TOLD DR OJEDA AND DR SKINNER, THIS NURSE CALLED DR OJEDA AND ORDER GIVEN TO CANCEL SURGERY. BUSINESS SOLUTIONS ARCHITECT NOTIFIED AND ADDITION TO SURGERY SENT WITH INSTRUCTION THAT PATIENT DID NOT WANT SURGERY.
--- NOTE | 2020-07-16 13:22 | Progress Note ---
Subjective Date Seen by a Provider: Jul 16, 2020 Time Seen by a Provider: 13:00 Subjective/Events-last exam doing well. no abd pain. no clinical bleed. Objective Exam Vital Signs Date Time Temp Pulse Resp B/P (MAP) Pulse Ox O2 Delivery O2 Flow Rate FiO2 07/16/20 12:16 36.8 56 18 137/66 (89) 100 Room Air 07/16/20 09:00 Room Air 07/16/20 08:12 36.9 68 18 146/78 (100) 98 Room Air 07/16/20 04:00 36.0 54 18 125/61 (82) 98 Room Air 07/16/20 00:00 36.7 60 18 131/60 (83) 96 Room Air 07/15/20 21:00 Room Air 07/15/20 19:15 36.8 75 20 136/73 (94) 100 Room Air 07/15/20 15:46 36.9 60 20 163/61 (95) 97 Room Air I & O 07/16/20 07:00 Intake Total 1700 ml Balance 1700 ml Capillary Refill : Less Than 3 Seconds General Appearance: No Apparent Distress HEENT: PERRL/EOMI Neck: Full Range of Motion Respiratory: Chest Non Tender, Lungs Clear, Normal Breath Sounds Cardiovascular: Regular Rate, Rhythm Gastrointestinal: normal bowel sounds, non tender, soft Extremity: Normal Capillary Refill Neurologic/Psychiatric: Alert, Oriented x3 Skin: Normal Color Lymphatic: No Adenopathy Results Lab Laboratory Tests 07/16/20 04:55: White Blood Count 4.5, Red Blood Count 2.48L, Hemoglobin 7.3L, Hematocrit 22L, Mean Corpuscular Volume 90, Mean Corpuscular Hemoglobin 29, Mean Corpuscular Hemoglobin Concent 33, Red Cell Distribution Width 15.5H, Platelet Count 177, Mean Platelet Volume 9.4, Neutrophils (%) (Auto) 61, Lymphocytes (%) (Auto) 26, Monocytes (%) (Auto) 11, Eosinophils (%) (Auto) 2, Basophils (%) (Auto) 0, Neutrophils # (Auto) 2.8, Lymphocytes # (Auto) 1.2, Monocytes # (Auto) 0.5, Eosinophils # (Auto) 0.1, Basophils # (Auto) 0.0, Sodium Level 142, Potassium Level 3.0L, Chloride Level 107, Carbon Dioxide Level 26, Anion Gap 9, Blood Urea Nitrogen 7, Creatinine 0.53L, Estimat Glomerular Filtration Rate > 60, BUN/Creatinine Ratio 13, Glucose Level 88, Calcium Level 7.7L, Corrected Calcium 8.7, Total Bilirubin 0.4, Aspartate Amino Transf (AST/SGOT) 20, Alanine Aminotransferase (ALT/SGPT) 12, Alkaline Phosphatase 44, Total Protein 4.4L, Albumin 2.8L Assessment/Plan Assessment/Plan Assess & Plan/Chief Complaint diverticular bleed. PO pain med for back pain. bowel prep. continue ambulation. Clinical Quality Measures DVT/VTE Risk/Contraindication: Risk Factor Score Per Nursin RFS Level Per Nursing on Admit: 3=High HENNY SKINNER MD Jul 16, 2020 13:22
[2020-07-16] MEDS ORDERED: polyethylene glycoL Bowel Prep(MIRALAX) 238 GM PO SCH (18:00)
[2020-07-17] VITALS: BP 129/62
[2020-07-17 06:09] LABS: BASOPHILS % (AUTO) 0 % (0-10); EOSINOPHILS # (AUTO) 0.1 10^3/uL (0.0-0.3); EOSINOPHILS % (AUTO) 3 % (0-10); HEMATOCRIT 28 % (35-52); LYMPHOCYTES # (AUTO) 1.4 X 10^3 (1.0-4.0); LYMPHOCYTES % (AUTO) 26 % (12-44); MEAN CORPUSCULAR HEMOGLOBIN 29 PG (25-34); MEAN CORPUSCULAR HGB CONC 33 G/DL (32-36); MEAN CORPUSCULAR VOLUME 89 FL (80-99); MEAN PLATELET VOLUME 9.9 FL (7.4-10.4); MONOCYTES # (AUTO) 0.6 X 10^3 (0.0-1.0); MONOCYTES % (AUTO) 11 % (0-12); NEUTROPHILS # (AUTO) 3.2 X 10^3 (1.8-7.8); NEUTROPHILS % (AUTO) 60 % (42-75); PLATELET COUNT 217 10^3/uL (130-400); WHITE BLOOD COUNT 5.2 10^3/uL (4.3-11.0)
[2020-07-17 06:17] LABS: CHLORIDE 105 MMOL/L (98-107); POTASSIUM 3.3 MMOL/L (3.6-5.0); SODIUM 139 MMOL/L (135-145)
[2020-07-17 06:18] LABS: GLUCOSE 91 MG/DL (70-105)
[2020-07-17 06:20] LABS: CARBON DIOXIDE 26 MMOL/L (21-32)
[2020-07-17 06:22] LABS: CREATININE SERUM 0.57 MG/DL (0.60-1.30); GFR ESTIMATED > 60
[2020-07-17 06:23] LABS: BUN/CREATININE RATIO 12
[2020-07-17 08:00] VITALS: BP 143/64
--- NOTE | 2020-07-17 08:08 | Progress Note ---
Subjective Subjective Date Seen by Provider: Jul 17, 2020 Time Seen by Provider: 07:45 PT IS FULLY ORIENTED AND IN NO CLEAR DISTRESS. PT HAS NOT HAD A EPISODE OF HEMATOCHEZIA SINCE 03:00 07/15 BUT SHE DENIES HAVING ANY BOWEL MOVEMENTS SINCE THEN. PTS HGB IS 9.0 TODAY AFTER BEING GIVEN BLOOD YESTERDAY, SHE FEELS LESS TIRED TODAY. HER HEALTH CONCERNS LIE MAINLY WITH HER RIGHT NOW AND SHE WANTS TO GET HOME TO SEE HIM WINSTON. Review of Systems General: No Chills; Fatigue Pulmonary: No Dyspnea, No Cough Cardiovascular: No: Chest Pain, Palpitations Gastrointestinal: No: Nausea, Vomiting, Abdominal Pain, Diarrhea, Constipation Genitourinary: No Dysuria, No Incontinence Neurological: Weakness All Other Systems Reviewed All Other Systems Reviewed: Yes Objective Exam Vital Signs Vital Signs - First Documented 07/13/20 07/13/20 07/14/20 22:38 22:40 12:18 Temp 36.6 Pulse 69 Resp 20 B/P (MAP) 124/75 (91) Pulse Ox 98 O2 Delivery Room Air O2 Flow Rate 5 Capillary Refill : Less Than 3 Seconds General Appearance: No Apparent Distress Eyes: Bilateral Eye Normal Inspection, Bilateral Eye PERRL, Bilateral Eye EOMI HEENT: PERRL/EOMI Respiratory: Chest Non Tender, Lungs Clear, Normal Breath Sounds Cardiovascular: Regular Rate, Rhythm, No JVD, No Murmur Gastrointestinal: Normal Bowel Sounds, Non Tender, Soft Rectal: Deferred Extremity: Normal Capillary Refill Neurologic/Psychiatric: Alert, Oriented x3 Skin: Normal Color Lymphatic: No Adenopathy Results Lab Laboratory Tests 07/17/20 05:20: White Blood Count 5.2, Red Blood Count 3.13L, Hemoglobin 9.0#L, Hematocrit 28L, Mean Corpuscular Volume 89, Mean Corpuscular Hemoglobin 29, Mean Corpuscular Hemoglobin Concent 33, Red Cell Distribution Width 16.4H, Platelet Count 217, Mean Platelet Volume 9.9, Neutrophils (%) (Auto) 60, Lymphocytes (%) (Auto) 26, Monocytes (%) (Auto) 11, Eosinophils (%) (Auto) 3, Basophils (%) (Auto) 0, Neutrophils # (Auto) 3.2, Lymphocytes # (Auto) 1.4, Monocytes # (Auto) 0.6, Eosinophils # (Auto) 0.1, Basophils # (Auto) 0.0, Sodium Level 139, Potassium Level 3.3L, Chloride Level 105, Carbon Dioxide Level 26, Anion Gap 8, Blood Urea Nitrogen 7, Creatinine 0.57L, Estimat Glomerular Filtration Rate > 60, BUN/Creatinine Ratio 12, Glucose Level 91, Calcium Level 8.0L Assessment/Plan Assessment/Plan Admission Dx ACUTE GASTROINTESTINAL BLEEDING Admission Status: Inpatient Order (span 2 midnights) Reason for Inpatient Admission: 1. ACUTE GI BLEED--RECURRENT, SUSPECT DIVERTICULA, PT DENIED SX FOR TODAY, MONITOR STOOL STATUS OF NEXT BM, IF NORMAL DISCHARGE PT, IF NOT KEEP PT AND PLAN FOR FUTURE SX. 2. ACUTE BLOOD LOSS ANEMIA FROM #1--PT HGB INCREASED FROM 7.3 YESTERDAY TO 9.0 TODAY AFTER RECIEIVING 2 UNITS- CONTINUE TO MONITOR CBC FOR CHANGE. 3. HYPERTENSION- IMPROVED WITH LOW DOSE AMLODIPINE. INCREASE DOSE TO HALF-TABLET BID 4. HYPOKALEMIA--CONTINUE TO REPLACE WITH POTASSIUM. 5. Lumbar Degenerative Disc Disease--was supposed to have surgery last week but was postponed due to her GI hemorrhage 5. RA--follows routinely with Dr. Madison Clinical Quality Measures DVT/VTE Risk/Contraindication: Risk Factor Score Per Nursin RFS Level Per Nursing on Admit: 3=High Supervisory-Addendum Brief Verification & Attestation Participated in pt care: history, MDM, physical Personally performed: exam, history, MDM, supervision of care Care discussed with: Medical Student Procedures: n/a Results interpretation: Verified all documentation HISTORY AND PHYSICAL PERFORMED BY STUDENT DOCTOR CHEVY, RE-EVALUATED BY DR AREVALO. ACUTE GI BLEED - RECURRENT ANEMIA DUE TO GI HEMORRHAGE HYPERTENSION CHRONIC PAIN FROM RA ANXIETY DEFER TREATMENT OF BLEED TO DR. SKINNER - PT WAS SCHEDULED FOR SIGMOID RESECTION BY DR. CANDELARIO - BUT SHE HAS DECIDED THAT SHE WANTS TO HAVE DR. SKINNER PERFORM THE SURGERY SINCE HE HAS DONE PREVIOUS PROCEDURES ON HER. SHE STATES THAT SHE IS NOT WILLING TO HAVE SURGERY UNLESS SHE BLEEDS AGAIN. NO BOWEL MOVEMENT SINCE HER SCOPE - I HAVE INFORMED PT WE WILL NOT DISCHARGE HER WITHOUT A BOWEL MOVEMENT - IF IT IS BLOODY - SHE WILL THEN NEED TO HAVE THE SIGMOID RESECTION. CHRONIC PAIN DUE TO RA AND OA - DEFER TO DR. MADISON - PT WILL HAVE TO HOLD OFF ON HER INFUSIONS FOR NOW - PAIN CONTROL WITH PRN FENTANYL. HTN - UNCONTROLLED AT NIGHT- INCREASE AMLODIPINE TO 2.5MG BID. DARLYN REECE STUDENT Jul 17, 2020 08:08 [place] AREVALO MD Jul 17, 2020 09:31
[2020-07-17] MEDS: amLODIPine 5 MG (NORVASC) TAB PO SCH (08:20)
[2020-07-17] MEDS ORDERED: polyethylene glycoL POWDER 17 GM (MIRALAX) PACK PO NR (09:30)
[2020-07-17] MEDS ORDERED: KCL 20 MEQ TAB (K-DUR) PO NR (09:30)
--- NOTE | 2020-07-17 10:39 | NUR ---
provided prayer and Communion.
--- NOTE | 2020-07-17 11:36 | NUR ---
CM/SS: Visited with pt as to plan for discharge Plan: When deemed appropriate, pt will return home, with no identified services Summary: Pt reports she was discharged and returned to the hospital a couple of hours later. She reports she is feeling better today, but can not be discharged until she can have a bowel movement and know that she is not having rectal bleeding. Pt report if she is still bleeding she will need to have surgery. She reports having had polyps removed. Pt reports some worry about her as he is on dialysis and has a number of other health problems. She does have extended family that are assisting with his care. Pt reports that at time of discharge she will have no identified needs. This worker will follow up.
[2020-07-17] MEDS: ACETAMINOPHEN 325 MG TABLET PO PRN (15:00)
--- NOTE | 2020-07-17 15:29 | Progress Note ---
Subjective Date Seen by a Provider: Jul 17, 2020 Time Seen by a Provider: 15:00 Subjective/Events-last exam doing well. no BM. Hb stable. no abd pain. Objective Exam Vital Signs Date Time Temp Pulse Resp B/P (MAP) Pulse Ox O2 Delivery O2 Flow Rate FiO2 07/17/20 08:00 Room Air 07/17/20 08:00 36.0 62 18 143/64 (90) 100 Room Air 07/17/20 00:00 36.1 62 18 129/62 (84) 95 Room Air 07/16/20 21:00 Room Air 07/16/20 20:01 177/72 (107) 07/16/20 19:52 36.4 63 18 154/100 (118) 100 Room Air 07/16/20 18:32 37.1 67 18 165/80 99 Room Air 07/16/20 16:25 37.0 62 18 152/72 99 Room Air 07/16/20 16:24 36.6 66 20 122/61 (81) 97 Room Air 07/16/20 16:03 36.7 63 18 155/62 96 Room Air I & O 07/17/20 07:00 Intake Total 1480 ml Balance 1480 ml Capillary Refill : Less Than 3 Seconds General Appearance: No Apparent Distress HEENT: PERRL/EOMI Neck: Full Range of Motion Respiratory: Chest Non Tender, Lungs Clear, Normal Breath Sounds Cardiovascular: Regular Rate, Rhythm Gastrointestinal: normal bowel sounds, non tender, soft Extremity: Normal Capillary Refill Neurologic/Psychiatric: Alert, Oriented x3 Skin: Normal Color Lymphatic: No Adenopathy Results Lab Laboratory Tests 07/17/20 05:20: White Blood Count 5.2, Red Blood Count 3.13L, Hemoglobin 9.0#L, Hematocrit 28L, Mean Corpuscular Volume 89, Mean Corpuscular Hemoglobin 29, Mean Corpuscular Hemoglobin Concent 33, Red Cell Distribution Width 16.4H, Platelet Count 217, Mean Platelet Volume 9.9, Neutrophils (%) (Auto) 60, Lymphocytes (%) (Auto) 26, Monocytes (%) (Auto) 11, Eosinophils (%) (Auto) 3, Basophils (%) (Auto) 0, Neutrophils # (Auto) 3.2, Lymphocytes # (Auto) 1.4, Monocytes # (Auto) 0.6, Eosinophils # (Auto) 0.1, Basophils # (Auto) 0.0, Sodium Level 139, Potassium Le padmini 3.3L, Chloride Level 105, Carbon Dioxide Level 26, Anion Gap 8, Blood Urea Nitrogen 7, Creatinine 0.57L, Estimat Glomerular Filtration Rate > 60, BUN/Creatinine Ratio 12, Glucose Level 91, Calcium Level 8.0L 07/17/20 12:59: Lab Scanned Report Transfusion Reaction Form Assessment/Plan Assessment/Plan Assess & Plan/Chief Complaint diverticular bleed. Hb stable. await BM before d/c. Clinical Quality Measures DVT/VTE Risk/Contraindication: Risk Factor Score Per Nursin RFS Level Per Nursing on Admit: 3=High HENNY SKINNER MD Jul 17, 2020 15:29
[2020-07-17 16:03] VITALS: BP 148/68
--- NOTE | 2020-07-17 16:48 | Discharge Inst-Surgical ---
D/C Lap Instructions-SUSANNE Follow Up Appt in 2 weeks Activity as tolerated High Fiber Diet 25g or more per day Avoid Alcohol, Caffeine, Spicy [place] and Acid foods. Drink 64 fluid oz or more of fluids per day. Symptoms to Report: Fever over 101 degree F, Nausea/Vomiting If any problems/questions: Contact your physician or go to Emergency Room HENNY SKINNER MD Jul 17, 2020 16:48
[2020-07-17 17:26] LABS: HEMOGLOBIN 10.2 G/DL (11.5-16.0)
[2020-07-17] MEDS ORDERED: polyethylene glycoL POWDER 17 GM (MIRALAX) PACK ONE (21:41)
[2020-07-17] MEDS ORDERED: polyethylene glycoL POWDER 17 GM (MIRALAX) PACK PO PRN (21:45)
[2020-07-18 00:27] VITALS: BP 134/62
[2020-07-18 05:56] LABS: HEMOGLOBIN 8.7 G/DL (11.5-16.0); MEAN PLATELET VOLUME 9.9 FL (7.4-10.4); WHITE BLOOD COUNT 3.9 10^3/uL (4.3-11.0)
[2020-07-18 06:03] LABS: CHLORIDE 105 MMOL/L (98-107); POTASSIUM 3.6 MMOL/L (3.6-5.0); SODIUM 140 MMOL/L (135-145)
[2020-07-18 06:04] LABS: CALCIUM 8.1 MG/DL (8.5-10.1); GLUCOSE 87 MG/DL (70-105)
[2020-07-18 06:06] LABS: CARBON DIOXIDE 25 MMOL/L (21-32)
[2020-07-18 06:08] LABS: GFR ESTIMATED > 60
[2020-07-18 06:09] LABS: BUN/CREATININE RATIO 18
[2020-07-18] MEDS ORDERED: polyethylene glycoL POWDER 17 GM (MIRALAX) PACK PO PRN (07:00)
[2020-07-18 08:00] VITALS: BP 161/50
--- NOTE | 2020-07-18 08:09 | Progress Note ---
Subjective Subjective Time Seen by Provider: 07:30 PT IS FULLY ORIENTED AND IN NO CLEAR DISTRESS. PT HAS NOT HAD A EPISODE OF HEMATOCHEZIA SINCE 03:00 07/15 BUT SHE DENIES HAVING ANY BOWEL MOVEMENTS SINCE THEN. PT SAYS HER BOWELS FEEL MORE ACTIVE TODAY. PTS HGB IS 8.7 TODAY AFTER GETTING UP TO 10.2 YESTERDAY. HER HEALTH CONCERNS LIE MAINLY WITH HER RIGHT NOW AND SHE WANTS TO GET HOME TO SEE HIM W[place]. Review of Systems General: No Chills, No Night Sweats; Fatigue Pulmonary: No Dyspnea, No Cough Cardiovascular: No: Chest Pain, Palpitations Gastrointestinal: No: Nausea, Vomiting, Abdominal Pain, Diarrhea, Constipation Genitourinary: No Dysuria, No Incontinence Neurological: Weakness All Other Systems Reviewed All Other Systems Reviewed: Yes Objective Exam Vital Signs Vital Signs - First Documented 07/13/20 07/13/20 07/14/20 22:38 22:40 12:18 Temp 36.6 Pulse 69 Resp 20 B/P (MAP) 124/75 (91) Pulse Ox 98 O2 Delivery Room Air O2 Flow Rate 5 Capillary Refill : Less Than 3 Seconds General Appearance: No Apparent Distress Eyes: Bilateral Eye Normal Inspection, Bilateral Eye PERRL, Bilateral Eye EOMI HEENT: PERRL/EOMI Neck: Full Range of Motion Respiratory: Chest Non Tender, Lungs Clear, Normal Breath Sounds Cardiovascular: Regular Rate, Rhythm, Normal Peripheral Pulses Gastrointestinal: Non Tender, Soft, Abnormal Bowel Sounds (hyperactive bowels ) Rectal: Deferred Neurologic/Psychiatric: Alert, Oriented x3 Skin: Normal Color Lymphatic: No Adenopathy Results Lab Laboratory Tests 07/17/20 12:59: Lab Scanned Report Transfusion Reaction Form 07/17/20 17:17: Hemoglobin 10.2L, Hematocrit 31L 07/18/20 05:03: Hemoglobin 8.7L, Hematocrit 27L, White Blood Count 3.9L, Red Blood Count 3.02L, Mean Corpuscular Volume 89, Mean Corpuscular Hemoglobin 29, Mean Corpuscular Hemoglobin Concent 32, Red Cell Distribution Width 16.0H, Platelet Count 237, Mean Platelet Volume 9.9, Sodium Level 140, Potassium Level 3.6, Chloride Level 105, Carbon Dioxide Level 25, Anion Gap 10, Blood Urea Nitrogen 11, Creatinine 0.60, Estimat Glomerular Filtration Rate > 60, BUN/Creatinine Ratio 18, Glucose Level 87, Calcium Level 8.1L Assessment/Plan Assessment/Plan Admission Dx ACUTE GASTROINTESTINAL BLEEDING Reason for Inpatient Admission: 1. ACUTE GI BLEED--RECURRENT, SUSPECT DIVERTICULA, MONITOR STOOL STATUS OF NEXT BM, PLAN FOR SX TO RESECT DIVERTICULI. 2. ACUTE BLOOD LOSS ANEMIA FROM #1--PT HGB DECREASED FROM 10.2 YESTERDAY TO 8.7 TODAY- CONTINUE TO MONITOR CBC FOR CHANGE. 3. HYPERTENSION-STILL INCREASED TODAY, INCREASE DOSE AMLODIPINE TO HALF-TABLET BID. CONTINUE ON THIS DOSE. 4. HYPOKALEMIA--POTASSIUM REPLACEMNT YESTERDAY CORRECTED DEFICIT, CONTINUE TO MONITOR LEVELS. 5. Lumbar Degenerative Disc Disease--was supposed to have surgery last week but was postponed due to her GI hemorrhage 5. RA--follows routinely with Dr. Madison Admission Dx ACUTE GASTROINTESTINAL BLEEDING Clinical Quality Measures Admission Status Admission Dx ACUTE GASTROINTESTINAL BLEEDING DVT/VTE Risk/Contraindication: Risk Factor Score Per Nursin RFS Level Per Nursing on Admit: 3=High Supervisory-Addendum Brief Verification & Attestation Participated in pt care: history, physical Personally performed: exam, history Care discussed with: Medical Student Procedures: n/a HISTORY AND PE PERFORMED BY STUDENT DOCTOR REECE, RE-EVALUATED BY DR AREVALO. [place] MED STUDENT Jul 18, 2020 08:08
[2020-07-18] MEDS: polyethylene glycoL POWDER 17 GM (MIRALAX) PACK PO SCH ×2 (08:46→15:11)
[2020-07-18] MEDS ORDERED: amLODIPine 5 MG (NORVASC) TAB PO SCH (10:04)
--- NOTE | 2020-07-18 13:19 | NUR ---
"RD ASSESSMENT PMHx: HTN; chronic UTI; diverticulosis; irritable bowel; RA PT INTERACTION: Pt was awake and pleasant during nutrition follow-up. Pt states she has been eating okay since last assessment. Note avg PO intake 57% x4d, per chart review. Pt states no issues with nausea, vomiting, constipation, or diarrhea since last assessment. Note pt currently on bowel regimen of miralax TID, per chart review. ABNORMAL NUTRITION-RELATED LAB VALUES LOW: Ca 8.1 HIGH: Est. kcal needs: 1400 kcal | 20 kcal/kg Est. Pro needs: 56 g Pro | 0.8 g Pro/kg PES STATEMENT: Inadequate oral intake (NI-2.1) related to loss of appetite as evidenced by pt interview | avg PO intake 57% x4d INTERVENTION: Continue with current diet order of Regular diet. Pt may benefit from nutrition supplementation if PO intake declines. Encouraged pt to eat when able. Will continue to follow and reassess as pt needs, intake, and status change. MONITOR/EVALUATE: PO Intake; Plan of Care; Hydration Status; Weight Status; Lab Values Dean Daniel, MS, RD, LD"
--- NOTE | 2020-07-18 13:23 | NUR ---
provided prayer and Communion.
--- NOTE | 2020-07-18 16:42 | NUR ---
PIV REMOVED, DC INSTRUCTIONS INCLUDING F/U GIVEN, PT VERBALIZED UNDERSTANDING OF ALL TEACHING, QUESTIONS ANSWERED. PT AWAITING RIDE FROM HOME.
[2020-07-18 17:10] VITALS: BP 161/50
--- NOTE | 2020-07-18 17:10 | NUR ---
JENNIFER LONGORIA demonstrates understanding of discharge instructions and accurately returns instructions upon questioning. Copy of Post-Discharge Instructions and Medication Discharge Instructions given to PT. JENNIFER LONGORIA is able to manage continuing needs after discharge. Patients belongings returned to PT. Skin dry and intact; no breakdown noted. Patient discharged from 420-1 on at 1710. JENNIFER LONGORIA left floor via , accompanied by STAFF.
--- NOTE | 2020-07-18 18:12 | Progress Note ---
Subjective Date Seen by a Provider: Jul 18, 2020 Time Seen by a Provider: 12:00 Subjective/Events-last exam doing well. no clinical bleed. no abd pain. tolerating diet. Hb stable. Objective Exam Vital Signs Date Time Temp Pulse Resp B/P (MAP) Pulse Ox O2 Delivery O2 Flow Rate FiO2 07/18/20 17:10 35.6 63 18 161/50 99 Room Air 5.00 07/18/20 09:00 Room Air 07/18/20 08:00 35.6 63 18 161/50 (87) 99 Room Air 07/18/20 00:27 36.0 63 18 134/62 (86) 98 Room Air 07/17/20 21:00 Room Air I & O 07/18/20 07:00 Intake Total 1380 ml Balance 1380 ml Capillary Refill : Less Than 3 SecondsLess Than 3 Seconds General Appearance: No Apparent Distress HEENT: PERRL/EOMI Neck: Full Range of Motion Respiratory: Chest Non Tender, Lungs Clear, Normal Breath Sounds Cardiovascular: Regular Rate, Rhythm Gastrointestinal: normal bowel sounds, non tender, soft Extremity: Normal Capillary Refill Neurologic/Psychiatric: Alert, Oriented x3 Skin: Normal Color Lymphatic: No Adenopathy Results Lab Laboratory Tests 07/18/20 05:03: White Blood Count 3.9L, Red Blood Count 3.02L, Hemoglobin 8.7L, Hematocrit 27L, Mean Corpuscular Volume 89, Mean Corpuscular Hemoglobin 29, Mean Corpuscular Hemoglobin Concent 32, Red Cell Distribution Width 16.0H, Platelet Count 237, Mean Platelet Volume 9.9, Sodium Level 140, Potassium Level 3.6, Chloride Level 105, Carbon Dioxide Level 25, Anion Gap 10, Blood Urea Nitrogen 11, Creatinine 0.60, Estimat Glomerular Filtration Rate > 60, BUN/Creatinine Ratio 18, Glucose Level 87, Calcium Level 8.1L Assessment/Plan Assessment/Plan Assess & Plan/Chief Complaint diverticular bleed. Hb stable. await BM before d/c. Clinical Quality Measures DVT/VTE Risk/Contraindication: Risk Factor Score Per Nursin RFS Level Per Nursing on Admit: 3=High HENNY SKINNER MD Jul 18, 2020 18:12
== END 2020-07-18 17:10 | disposition home or self-care (01) | DRG 378 ==
LOC: CSD 22:20 → 4TH 07-14 16:12 → OBSVTOIN 07-16 14:37
PROVIDERS: ADMIT Surgery; ATTEND Surgery
PROC: 0DJD8ZZ Inspection of Lower Intestinal Tract, Via Natural or Artificial Opening Endoscopic (ICD-10-PCS; 2020-07-14)
PROC: 0DBP8ZX Excision of Rectum, Via Natural or Artificial Opening Endoscopic, Diagnostic (ICD-10-PCS; principal; 2020-07-14 11:17)
PROC: 0DJ08ZZ Inspection of Upper Intestinal Tract, Via Natural or Artificial Opening Endoscopic (ICD-10-PCS; 2020-07-14 11:17)
DX: K57.31 Diverticulosis of large intestine without perforation or abscess with bleeding (principal); D62 Acute posthemorrhagic anemia; K62.1 Rectal polyp; K64.8 Other hemorrhoids; I10 Essential (primary) hypertension; K58.9 Irritable bowel syndrome, unspecified; M19.91 Primary osteoarthritis, unspecified site; M06.9 Rheumatoid arthritis, unspecified; F41.9 Anxiety disorder, unspecified; E87.6 Hypokalemia; M51.36 Other intervertebral disc degeneration, lumbar region; G89.29 Other chronic pain
CPT/HCPCS: 36415; 80048; 80053; 85014; 85018; 85025; 85027; 86850; 86900; 86901; 86920; 87635; 88305; 90662

== ENCOUNTER → 2021-01-02 | Outpatient (CLI) | payer MEDICARE, OTHER ==
[~2021-01-02] MED LIST changes: +ALPR.25T PO; -ALPR0.254 PO; +AMLO-250 PO; -AMLO5TAB9 PO
--- NOTE | 2021-01-02 16:52 | Diagnostic Imaging Report ---
PROCEDURE: CT cervical spine without contrast. TECHNIQUE: Multiple contiguous axial images were obtained through the cervical spine without the use of intravenous contrast. Sagittal and coronal reformations were then performed. Auto Exposure Controls were utilized during the CT exam to meet ALARA standards for radiation dose reduction. INDICATION: Neck pain. Rheumatoid arthritis. Left-sided neck swelling x6 months. COMPARISON: CT cervical spine without contrast 03/17/2014. FINDINGS: Grade 1 anterolisthesis of C2 on C3 has progressed since the prior exam. Partially calcified pannus at the atlantoaxial articulation appears to result in mild spinal canal stenosis. Anterior fusion with interbody devices at C3-C5. There is also a mature fusion at C5-C6. Advanced degenerative changes at C6-C7. No high-grade spinal canal stenosis is evident on soft tissue windows. Osteophytic ridging results in moderate bilateral neural foraminal narrowing at C2-C3 and C3-C4. Moderate atherosclerotic calcifications in the carotid bifurcations. Visualized paravertebral soft tissues are otherwise unremarkable. The lung apices are clear. IMPRESSION: 1. Anterior fusion at C3-C5 with mature inner body fusion at C5-C6. No evidence of hardware failure. 2. Partially calcified pannus formation at the atlantoaxial articulation appears to result in only mild spinal canal stenosis. 3. Spondylotic changes result in scattered moderate neural foraminal narrowing, greatest at C2-C3 and C3-C4. No high-grade spinal canal stenosis is evident on soft tissue windows. 4. No acute findings in the cervical spine. Dictated by: Dictated on workstation # [id number]
== END ==
LOC: RAD 15:27
PROVIDERS: ATTEND Allergy & Immunology
DX: M47.812 Spondylosis without myelopathy or radiculopathy, cervical region (principal); M06.09 Rheumatoid arthritis without rheumatoid factor, multiple sites; M48.02 Spinal stenosis, cervical region; M43.22 Fusion of spine, cervical region
CPT/HCPCS: 72125

== ENCOUNTER → 2021-01-12 | Outpatient (CLI) | payer MEDICARE, OTHER ==
--- NOTE | 2021-01-12 13:09 | Diagnostic Imaging Report ---
PROCEDURE: MR imaging cervical spine without contrast. TECHNIQUE: Multiplanar, multisequence MR imaging of the cervical spine was performed without contrast. INDICATION: Neck pain. Prior cervical spine fusion. COMPARISON: CT cervical spine without contrast 01/02/2021. FINDINGS: Examination is limited by motion. Grade 1 anterolisthesis of C7 on T1 and T1 on T2. Postoperative findings from the anterior fusion with interbody devices at C3-C5 and mature interbody fusion at C5-C6. Advanced degenerative endplate changes at C6-C7. No abnormal signal in the cervical spinal cord. Visualized paravertebral soft tissues are unremarkable. C2-C3: Disc osteophyte complex and ligamentous hypertrophy result in jjhgvcct-tj-uexric spinal canal stenosis. Mild bilateral neural foraminal narrowing. C3-C4: Osteophytic ridging results in mild spinal canal narrowing. Moderate right and mild left neural foraminal narrowing. C4-C5: Mild spinal canal and bilateral neural foraminal narrowing. C5-C6: No spinal canal or neural foraminal narrowing. C6-C7: Disc osteophyte complex results in emuc-hu-qrjjhlrw spinal canal stenosis. Mild left neural foraminal narrowing. C7-T1: No substantial spinal canal or neural foraminal narrowing. IMPRESSION: 1. Postoperative findings of mature fusions at C3-C6. 2. High-grade spinal canal stenosis at C2-C3. This results in no abnormal signal identified in the cervical spinal cord. 3. Scattered khmd-nx-eiyyzelu neural foraminal narrowing detailed above level by level. Dictated by: Dictated on workstation # [id number]
== END ==
LOC: RAD 10:30
PROVIDERS: ATTEND Orthopaedic Surgery Orthopaedic Surgery of the Spine
DX: M48.02 Spinal stenosis, cervical region (principal); M25.78 Osteophyte, vertebrae; Z98.1 Arthrodesis status
CPT/HCPCS: 72141

== ENCOUNTER → 2021-11-14 | Outpatient (CLI) | payer MEDICARE, OTHER ==
--- NOTE | 2021-11-14 11:56 | Diagnostic Imaging Report ---
PROCEDURE: MR angiography neck without contrast. TECHNIQUE: Non contrast enhanced MR angiography of the neck was performed. Source data was reformatted into rotating MIP projections. INDICATION: Carotid artery stenosis. COMPARISON: None available. FINDINGS: Zhvs-tl-jvotsn imaging shows normal direction of flow in the bilateral vertebral and carotid arteries. There is no high-grade stenosis of the internal carotid arteries per NASCET criteria. Assessment of the common carotid artery is suboptimal by noncontrast imaging and due to some pulsation artifact. No appreciable high-grade stenosis within the vertebral arteries. IMPRESSION: 1. By noncontrast MR angiography, there is no stenosis of the internal carotid arteries per NASCET criteria. Dictated by: Dictated on workstation # [id number]
== END ==
LOC: RAD 09:30
PROVIDERS: ATTEND Allergy & Immunology
DX: I65.29 Occlusion and stenosis of unspecified carotid artery (principal)
CPT/HCPCS: 70547

== ENCOUNTER → 2021-12-31 | Outpatient (CLI) | payer OTHER, MEDICARE ==
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
== END ==
LOC: RAD 12:23
PROVIDERS: ATTEND Nurse Practitioner Family
DX: M47.813 Spondylosis without myelopathy or radiculopathy, cervicothoracic region (principal); M25.511 Pain in right shoulder; R07.81 Pleurodynia; M43.8X6 Other specified deforming dorsopathies, lumbar region; Z98.1 Arthrodesis status; V89.2XXD Person injured in unspecified motor-vehicle accident, traffic, subsequent encounter
CPT/HCPCS: 71100; 72040; 72072; 72100; 73030

== ENCOUNTER → 2022-01-10 | Outpatient (CLI) | payer OTHER, MEDICARE ==
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
== END ==
LOC: RAD 08:00
PROVIDERS: ATTEND Nurse Practitioner Family
DX: M47.816 Spondylosis without myelopathy or radiculopathy, lumbar region (principal); M48.061 Spinal stenosis, lumbar region without neurogenic claudication; M43.16 Spondylolisthesis, lumbar region; M48.56XA Collapsed vertebra, not elsewhere classified, lumbar region, initial encounter for fracture
CPT/HCPCS: 72148

== ENCOUNTER → 2022-01-21 | Outpatient (CLI) | payer MEDICARE, OTHER ==
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
== END ==
LOC: RAD 14:45
PROVIDERS: ATTEND Orthopaedic Surgery Orthopaedic Surgery of the Spine
DX: M47.23 Other spondylosis with radiculopathy, cervicothoracic region (principal); M48.03 Spinal stenosis, cervicothoracic region; M43.22 Fusion of spine, cervical region; V89.2XXA Person injured in unspecified motor-vehicle accident, traffic, initial encounter
CPT/HCPCS: 72141

== ENCOUNTER → 2022-06-27 | Outpatient (CLI) | payer MEDICARE, OTHER ==
[~2022-06-27] MED LIST changes: -ASPI-789 PO; +ASPI1TAB23 PO
--- NOTE | 2022-06-27 10:05 | Diagnostic Imaging Report ---
EXAMINATION: Magnetic resonance imaging of the pelvis and left hip without contrast DATE: June 27, 2022. COMPARISON: CT abdomen and pelvis July 10, 2020. INDICATION: 76-year-old female, left hip pain. TECHNIQUE: Magnetic Resonance Imaging sequences were performed of the pelvis and left hip without contrast. TENDONS AND MUSCLES: There is prominent edema in the region of the right greater trochanteric bursa without clearly identified discrete tear of the gluteus minimus or medius tendons on the right. The left gluteus minimus and medius tendons are intact. Both common hamstring attachments on the ischial tuberosities are intact and the extensor muscles of the thigh are intact. The visualized portions of the flexors and adductor muscles of the thigh and their attachments on the pelvis and hips are intact. Both iliopsoas and iliacus muscles are intact. The bilateral iliopsoas tendons are intact. HIPS AND SACROILIAC JOINTS: The contours of the femoral heads and acetabuli are smooth and symmetric. There is no hip joint effusion. There is no identified fluid-filled labral tear or paralabral cyst. There is no pronounced joint space loss of either hip. The sacroiliac joints are unremarkable. LUMBAR SPINE: There are postoperative changes of the lumbar spine. BONE: The bones all have normal configuration. The bone marrow signal is within normal limits. Specifically, negative for fracture, osteomyelitis, osteonecrosis, or marrow replacing process. BURSAE AND SOFT TISSUES: The bursae and soft tissues surrounding the pelvis and hips are within normal limits. IMPRESSION: 1. Unremarkable appearance of both hip joints. 2. Findings compatible with trochanteric bursitis on the right. 3. No discretely identified tendon tear. 4. Unremarkable intramuscular signal. 5. No acute fracture, bone contusion, or evidence of osteonecrosis. 6. Multilevel postoperative changes of the lumbar spine with otherwise limited assessment of the lumbar spine. Dictated by: Dictated on workstation # [id number]
== END ==
LOC: RAD 07:31
PROVIDERS: ATTEND Registered Nurse
DX: M25.552 Pain in left hip (principal); Z98.890 Other specified postprocedural states
CPT/HCPCS: 73721

== ENCOUNTER 2022-11-05 19:11 | Emergency (ER) | payer MEDICARE, OTHER ==
[~2022-11-05] VITALS: Ht 152 cm; Wt 63.0 kg
[2022-11-05] MEDS ORDERED: TETANUS,DIPTH,PERTUSS P/F (BOOSTRIX) 0.5 ML VIAL IM ONE (19:45)
--- NOTE | 2022-11-05 19:48 | ED Integumentary General ---
General Chief Complaint: Laceration Stated Complaint: RIGHT HAND LAC Nursing Triage Note: Patient presented to the ER tonight secondary to a laceration to the right hand. She advised that she was washing a drinking glass in the sink when it broke around 1820. No bleeding noted at this time, patient states she does not remember when her last tetanus shot was. Source: patient, family Exam Limitations: no limitations (SAHADLEYLULI) History of Present Illness Date Seen by Provider: Nov 05, 2022 Time Seen by Provider: 19:42 Initial Comments 77 F presents with superficial laceration of rt 5th digit. Pt claims she was cleaning a metal can after dinner at about 1830 and cut her finger. Notes wound "bled pretty good" for a few minutes but has held compression on laceration since incident. Pt is not on any blood thinners at this time. Denies any pain, swelling, numbness or tingling to digit. Pt is unsure on last time she received TDap Location Injury Occurred: lateral rt 5 digit Timing/Duration: just prior to arrival Severity: mild Location: hands (rt 5th digit) Possible Cause: other (metal can ) Associated Symptoms: No fever, No flushing, No headache, No numbness, No rash, No tingling (SAUCE,LULI) Allergies and Home Medications Allergies Coded Allergies: NKANo Known Allergies (Verified Allergy, Unknown, 03/03/07) Patient Home Medication List Home Medication List Reviewed: Yes (SAUCE,LULI) ALPRAZolam (Xanax Tablet) 0.25 Mg Tablet, 0.125-0.25 MG PO HS PRN for ANXIETY, (Reported) Entered as Reported by: JADEN LOCK on 07/11/20 132 Acetaminophen (Tylenol) 325 Mg Capsule, 650 MG PO Q6H PRN for PAIN-MILD (1-4), (Reported) Entered as Reported by: JADEN LOCK on 07/11/20 132 Amlodipine Besylate (Amlodipine Besylate) 5 Mg Tablet, 5 MG PO DAILY, (Reported) Entered as Reported by: JADEN LOCK on 07/11/201321 Aspirin/Acetaminophen/Caffeine (Excedrin Migraine Caplet) 1 Each Tablet, 2 EACH PO Q6-8HR PRN for Headache, (Reported) Entered as Reported by: JADEN LOCK on 07/11/20 1322 Atorvastatin Calcium (Atorvastatin Calcium) 20 Mg Tablet, 20 MG PO HS, (Reported) Entered as Reported by: JADEN LOCK on 07/11/20 132 Biotin (Biotin) 1,000 Mcg Tab.chew, 1,000 MCG PO DAILY, (Reported) Entered as Reported by: JADEN LOCK on 07/11/20 132 Fexofenadine HCl (Stacey Allergy) 180 Mg Tablet, 180 MG PO DAILY PRN for ALLERGY SYMPTOMS, (Reported) Entered as Reported by: JADEN LOCK on 07/11/20 132 Gabapentin (Gabapentin) 100 Mg Capsule, 100 MG PO HS, (Reported) Entered as Reported by: LAURI MCKAY on 05/26/20 023 Metoprolol Tartrate (Metoprolol Tartrate) 100 Mg Tablet, 150 MG PO DAILY, (Reported) Entered as Reported by: JADEN LOCK on 07/11/20 132 Metoprolol Tartrate (Metoprolol Tartrate) 100 Mg Tablet, 100 MG PO HS, (Reported) Entered as Reported by: JADEN LOCK on 07/11/20 132 Multivitamin/Iron/Folic Acid (Centrum Adults Tablet) 1 Each Tablet, 1 EACH PO DAILY, (Reported) Entered as Reported by: JADEN LOCK on 07/11/20 132 Omeprazole (Omeprazole) 20 Mg Capsule.dr, 40 MG PO DAILY, (Reported) Entered as Reported by: JADEN LOCK on 07/11/20 132 Oxybutynin Chloride (Oxybutynin Chloride ER) 10 Mg Tab.er.24, 10 MG PO DAILY, (Reported) Entered as Reported by: LAURI MCKAY on 05/26/20234 Peg 400/Hypromellose/Glycerin (Visine Dry Eye Relief Drop) 15 Ml Drops, 2 DROPS OU PRN PRN for DRY EYES, (Reported) Entered as Reported by: JADEN LOCK on 07/11/20 132 Tramadol HCl (Tramadol HCl) 50 Mg Tablet, 50-100 MG PO Q8H PRN for PAIN-MODERATE (5-7), (Reported) Entered as Reported by: JADEN LOCK on 07/11/20 132 Review of Systems Review of Systems Constitutional: No chills, No diaphoresis EENTM: No no symptoms reported Respiratory: No cough, No short of breath Cardiovascular: No chest pain, No syncope Gastrointestinal: no symptoms reported Genitourinary: no symptoms reported : No Musculoskeletal: No joint pain, No joint swelling, No muscle pain, No muscle stiffness Skin: No change in color; lesions (rt 5th digit laceration ) Psychiatric/Neurological: No Symptoms Reported Endocrine: No Symptoms Reported Hematologic/Lymphatic: Denies Easy Bleeding, Denies Easy Bruising (SAUCE,LULI) Past Dqaglhn-Xfybml-Azpvah Hx Patient Social History Tobacco Use?: No Substance use?: No Alcohol Use?: No (SAUCE,LULI) Immunizations Up To Date Tetanus Booster (TDap): More than 5yrs PED Vaccines UTD: Yes (SAUCE,LULI) Seasonal Allergies Seasonal Allergies: Yes (SAUCE,LULI) Past Medical History Surgery/Hospitalization HX: hypertension, back surgery x 3, plate in throat, knee replacement 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 Genitourinary: Yes UTI-Chronic Gastrointestinal: Yes Diverticulosis, Irritable Bowel Musculoskeletal: Yes (DJD) Arthritis, Rheumatoid Arthritis Endocrine: No HEENT: No Cancer: No Psychosocial: Yes Anxiety Integumentary: No Blood Disorders: No Adverse Reaction/Blood Tranf: No (SAUCE,LULI) Family Medical History Heart Disease, Hypertension (SAUCE,LULI) Physical Exam Vital Signs Vital Signs - First Documented 11/05/22 19:24 Temp 36.6 Pulse 67 Resp 18 B/P (MAP) 104/72 (83) Pulse Ox 98 O2 Delivery Room Air (PAOLA RICARDO MD) Vital Signs Capillary Refill : Less Than 3 Seconds (SAUCE,LULI) General Appearance: WD/WN, no apparent distress HEENT: PERRL/EOMI Neck: supple, normal inspection Cardiovascular: regular rate, rhythm, no edema, no murmur Respiratory: chest non-tender, lungs clear, normal breath sounds, no respiratory distress, no accessory muscle use Extremities: non-tender, normal capillary refill; No swelling Neurologic/Psychiatric: alert, normal mood/affect, oriented x 3 Skin: normal color, warm/dry Skin Problem Location: upper extremities (rt 5th digit) Skin Problem Character: other (laceration) Lymphatic: no adenopathy (SAUCE,LULI) Skin Problem Character: other (laceration) (PAOLA RICARDO MD) Procedures/Interventions Wound Location: Upper Extremities (rt 5th digit ) Wound Length (cm): 2 (cm) Wound's Depth, Shape: superficial, linear Wound Explored: clean Wound Debrided: minimal Other Closure Supply: Wound Adhesive (SAUCE,LULI) Progress/Results/Core Measures Results/Orders My Orders Orders - PAOLA RICARDO MD Dipht,Pertuss(Acell),Tet Adult (Boostrix (11/05/22 19:45) (PAOLA RICARDO MD) Vital Signs/I&O 11/05/22 19:24 Temp 36.6 Pulse 67 Resp 18 B/P (MAP) 104/72 (83) Pulse Ox 98 O2 Delivery Room Air (PAOLA RICARDO MD) Blood Pressure Mean: 83 Progress Progress Note : Time: 20:12 Progress Note Patient seen and examined, 77-year-old female with a chief complaint of laceration to the right medial hand at the base of the right fifth finger. Laceration is approximately a centimeter. Superficial. No active bleeding. Mildly tender to touch. Distal neurovascularly intact, no evidence on physical examination of tendon injury. Patient's tetanus shot was updated today. Wound was cleansed thoroughly and closed with Dermabond. Wound care precautions provided. All questions are sought and answered. (PAOLA RICARDO MD) Departure Impression Primary Impression: Laceration of hand Qualified Codes: S61.411A - Laceration without foreign body of right hand, initial encounter Disposition: 01 HOME, SELF-CARE Condition: Improved Departure-Patient Inst. Decision time for Depature: 20:11 (PAOLA RICARDO MD) Referrals: INDIA VARELA MD (PCP/Family) Primary Care Physician Patient Instructions: Laceration Repair With Glue ED Add. Discharge Instructions: Keep the wound clean and dry. Do not put Neosporin or other antibiotic ointment over the glue. If you notice that the wound becomes red, swollen or more painful please come back to the emergency room for reevaluation. Your tetanus shot has been updated today. Follow-up with Dr. Varela as needed. Verification and Attestation of Medical Student E/M Service A medical student performed and documented this service in my presence. I reviewed and verified all information documented by the medical student and made modifications to such information, when appropriate. I personally performed the physical exam and medical decision making. Paola Ricardo, Nov 05, 2022,20:11 (PAOLA RICARDO MD) Copy Copies To 1: INDIA VARELA MD, DAULTON Nov 05, 2022 19:48 PAOLA RICARDO MD Nov 05, 2022 20:13
[2022-11-05 20:25] VITALS: BP 138/73
== END 2022-11-05 20:25 | disposition home or self-care (01) ==
LOC: EDUNIT# 19:11 → ER 19:12
DX: S61.216A Laceration without foreign body of right little finger without damage to nail, initial encounter (principal); Z23 Encounter for immunization; W26.9XXA Contact with unspecified sharp object(s), initial encounter; Y93.G1 Activity, food preparation and clean up
CPT/HCPCS: 12001; 90715

== ENCOUNTER → 2023-05-30 | Outpatient (CLI) | payer MEDICARE, OTHER ==
--- NOTE | 2023-05-30 11:29 | Diagnostic Imaging Report ---
PROCEDURE: CT cervical spine without contrast. TECHNIQUE: Multiple contiguous axial images were obtained through the cervical spine without the use of intravenous contrast. Sagittal and coronal reformations were then performed. Auto Exposure Controls were utilized during the CT exam to meet ALARA standards for radiation dose reduction. INDICATION: Neck pain with right arm radiculopathy. COMPARISON: 05/23/2023. 01/02/2021. FINDINGS: No acute fracture or dislocation in the cervical spine. ACDF changes are visualized from C3 to C5. No hardware fracture. There is appropriate osseous fusion across the C3-C5 vertebral bodies. There is also osseous fusion across the C5-C6 level. Advanced erosive endplate changes are seen at the C6-C7 level, stable compared to the prior exam from 2020. No suspicious focal osseous lesions. The craniocervical junction is intact. Prominent pannus is noted posterior to the dens. No high-density material is seen within the spinal canal. No evidence of acute spinal canal stenosis. The soft tissues of the neck are unremarkable. The included lungs are clear. IMPRESSION: 1. No acute fracture or dislocation in the cervical spine. 2. ACDF changes from C3 to C5. No hardware complication. Osseous fusion is seen across the C3-C6 levels. 3. Prominent pannus is again noted posterior to the dens. Dictated by: Dictated on workstation # [id number]
== END ==
LOC: RAD 08:14
PROVIDERS: ATTEND Orthopaedic Surgery Orthopaedic Surgery of the Spine
DX: M54.2 Cervicalgia (principal); H16.429 Pannus (corneal), unspecified eye; Z98.1 Arthrodesis status
CPT/HCPCS: 72125

== ENCOUNTER 2023-09-16 09:45 | Emergency (ER) | payer MEDICARE, OTHER ==
[~2023-09-16] VITALS: Ht 152.4 cm; Wt 63.0 kg
[2023-09-16 10:25] LABS: BASOPHILS # (AUTO) 0.1 10^3/uL (0.0-0.1); BASOPHILS % (AUTO) 1 % (0-10); EOSINOPHILS # (AUTO) 0.2 10^3/uL (0.0-0.3); EOSINOPHILS % (AUTO) 3 % (0-10); HEMATOCRIT 41 % (35-52); HEMOGLOBIN 13.2 g/dL (11.5-16.0); LYMPHOCYTES # (AUTO) 1.2 10^3/uL (1.0-4.0); LYMPHOCYTES % (AUTO) 20 % (12-44); MEAN CORPUSCULAR HEMOGLOBIN 31 pg (25-34); MEAN CORPUSCULAR HGB CONC 33 g/dL (32-36); MEAN CORPUSCULAR VOLUME 95 fL (80-99); MEAN PLATELET VOLUME 9.9 fL (9.0-12.2); MONOCYTES # (AUTO) 0.5 10^3/uL (0.0-1.0); MONOCYTES % (AUTO) 9 % (0-12); NEUTROPHILS # (AUTO) 3.8 10^3/uL (1.8-7.8); NEUTROPHILS % (AUTO) 66 % (42-75); PLATELET COUNT 223 10^3/uL (130-400); WHITE BLOOD COUNT 5.8 10^3/uL (4.3-11.0)
[2023-09-16 10:30] LABS: PROTHROMBIN TIME PATIENT 13.5 SEC (12.2-14.7)
[2023-09-16 10:32] LABS: CALCIUM 8.6 MG/DL (8.5-10.1)
[2023-09-16 10:33] LABS: TOTAL PROTEIN 6.2 GM/DL (6.4-8.2)
[2023-09-16 10:35] LABS: BILIRUBIN,TOTAL 0.6 MG/DL (0.1-1.0)
[2023-09-16 10:37] LABS: CREATININE SERUM 0.64 MG/DL (0.60-1.30)
--- NOTE | 2023-09-16 10:38 | ED GI ---
General Chief Complaint: Rect Problems Stated Complaint: RECTAL BLEEDING Nursing Triage Note: STATES SHE NOTICED BLOOD IN HER STOOL THIS AM. NORMAL BOWEL PATTERN IS DIARRHEA D/T IBS /C DIARRHEA, ALSO VERBALIZES SHE HAS A HX OF DIVERTICULITIS AND POLYP REMOVAL. DENIES ABDOMINAL PAIN. Source of Information: Patient Exam Limitations: No Limitations History of Present Illness Date Seen by Provider: Sep 16, 2023 Time Seen by Provider: 10:09 Allergies and Home Medications Allergies Coded Allergies: NKANo Known Allergies (Verified Allergy, Unknown, 09/16/23) Patient Home Medication List ALPRAZolam (Xanax Tablet) 0.25 Mg Tablet, 0.125-0.25 MG PO HS PRN for ANXIETY, (Reported) Entered as Reported by: JADEN LOCK on 07/11/20 132 Acetaminophen (Tylenol) 325 Mg Capsule, 650 MG PO Q6H PRN for PAIN-MILD (1-4), (Reported) Entered as Reported by: JADEN LOKC on 07/11/20 132 Amlodipine Besylate (Amlodipine Besylate) 5 Mg Tablet, 5 MG PO DAILY, (Reported) Entered as Reported by: JADEN LOCK on 07/11/20 132 Aspirin/Acetaminophen/Caffeine (Excedrin Migraine Caplet) 1 Each Tablet, 2 EACH PO Q6-8HR PRN for Headache, (Reported) Entered as Reported by: JADEN LOCK on 07/11/20 132 Atorvastatin Calcium (Atorvastatin Calcium) 20 Mg Tablet, 20 MG PO HS, (Reported) Entered as Reported by: JADEN LOCK on 07/11/20 132 Biotin (Biotin) 1,000 Mcg Tab.chew, 1,000 MCG PO DAILY, (Reported) Entered as Reported by: JADEN LOCK on 07/11/20 132 Fexofenadine HCl (Stacey Allergy) 180 Mg Tablet, 180 MG PO DAILY PRN for ALLERGY SYMPTOMS, (Reported) Entered as Reported by: JADEN LOCK on 07/11/20 132 Gabapentin (Gabapentin) 100 Mg Capsule, 100 MG PO HS, (Reported) Entered as Reported by: LAURI MCKAY on 05/26/20 0235 Metoprolol Tartrate (Metoprolol Tartrate) 100 Mg Tablet, 150 MG PO DAILY, (Reported) Entered as Reported by: JADEN LOCK on 07/11/20 1322 Metoprolol Tartrate (Metoprolol Tartrate) 100 Mg Tablet, 100 MG PO HS, (Reported) Entered as Reported by: JADEN LOCK on 07/11/20 1322 Multivitamin/Iron/Folic Acid (Centrum Adults Tablet) 1 Each Tablet, 1 EACH PO DAILY, (Reported) Entered as Reported by: JADEN LOCK on 07/11/20 132 Omeprazole (Omeprazole) 20 Mg Capsule.dr, 40 MG PO DAILY, (Reported) Entered as Reported by: JADEN LOCK on 07/11/20 1322 Oxybutynin Chloride (Oxybutynin Chloride ER) 10 Mg Tab.er.24, 10 MG PO DAILY, (Reported) Entered as Reported by: LAURI MCKAY on 05/26/20 0235 Peg 400/Hypromellose/Glycerin (Visine Dry Eye Relief Drop) 15 Ml Drops, 2 DROPS OU PRN PRN for DRY EYES, (Reported) Entered as Reported by: JADEN LOCK on 07/11/20 132 Tramadol HCl (Tramadol HCl) 50 Mg Tablet, 50-100 MG PO Q8H PRN for PAIN-MODERATE (5-7), (Reported) Entered as Reported by: JADEN LOCK on 07/11/20 132 Past Hccbfdv-Szwppg-Veetgl Hx Patient Social History Tobacco Use?: No Use of E-Cig and/or Vaping dev: No Substance use?: No Alcohol Use?: Yes Alcohol type: Wine Alcohol Frequency: Once in a while Pt feels they are or have been: No Immunizations Up To Date Tetanus Booster (TDap): More than 5yrs PED Vaccines UTD: Yes Influenza Vaccine Up-to-Date: Yes; Up-to-Date First/Initial COVID19 Vaccinat: 4 shots Seasonal Allergies Seasonal Allergies: Yes Past Medical History Surgery/Hospitalization HX: HTN, IBS/C DIARRHEA, RA, HTN, HIGH CHOLERSTEROL, DIVERTICULITIS, KIDNEY STONE. back surgery x 3, plate in throat, right knee replacement, SHOULDER SURGERY, APPENDECTOMY, POLYP REMOVAL. 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 0.0oz. [id number]; 27.00 BMI Method: Progress/Results/Core Measures Results/Orders Lab Results Laboratory Tests Test 09/16/23 10:00 Range/Units White Blood Count 5.8 4.3-11.0 10^3/uL Red Blood Count 4.27 3.80-5.11 10^6/uL Hemoglobin 13.2 11.5-16.0 g/dL Hematocrit 41 35-52 % Mean Corpuscular Volume 95 80-99 fL Mean Corpuscular Hemoglobin 31 25-34 pg Mean Corpuscular Hemoglobin Concent 33 32-36 g/dL Red Cell Distribution Width 12.6 10.0-14.5 % Platelet Count 223 130-400 10^3/uL Mean Platelet Volume 9.9 9.0-12.2 fL Immature Granulocyte % (Auto) 1 % Neutrophils (%) (Auto) 66 42-75 % Lymphocytes (%) (Auto) 20 12-44 % Monocytes (%) (Auto) 9 0-12 % Eosinophils (%) (Auto) 3 0-10 % Basophils (%) (Auto) 1 0-10 % Neutrophils # (Auto) 3.8 1.8-7.8 10^3/uL Lymphocytes # (Auto) 1.2 1.0-4.0 10^3/uL Monocytes # (Auto) 0.5 0.0-1.0 10^3/uL Eosinophils # (Auto) 0.2 0.0-0.3 10^3/uL Basophils # (Auto) 0.1 0.0-0.1 10^3/uL Immature Granulocyte # (Auto) 0.0 0.0-0.1 10^3/uL Prothrombin Time 13.5 12.2-14.7 SEC INR Comment 1.0 0.8-1.4 Activated Partial Thromboplast Time 29 24-35 SEC Sodium Level 138 135-145 MMOL/L Potassium Level 4.0 3.6-5.0 MMOL/L Chloride Level 105 98-107 MMOL/L Carbon Dioxide Level 27 21-32 MMOL/L Anion Gap 6 5-14 MMOL/L Blood Urea Nitrogen 11 7-18 MG/DL Creatinine 0.64 0.60-1.30 MG/DL Estimat Glomerular Filtration Rate 91 BUN/Creatinine Ratio 17 Glucose Level 88 70-105 MG/DL Calcium Level 8.6 8.5-10.1 MG/DL Corrected Calcium 8.6 8.5-10.1 MG/DL Total Bilirubin 0.6 0.1-1.0 MG/DL Aspartate Amino Transf (AST/SGOT) 22 5-34 U/L Alanine Aminotransferase (ALT/SGPT) 15 0-55 U/L Alkaline Phosphatase 77 40-136 U/L Total Protein 6.2 L 6.4-8.2 GM/DL Albumin 4.0 3.2-4.5 GM/DL My Orders Orders - RENNY GONZALEZ MD Cbc And Automated Diff (09/16/23 10:18) Comprehensive Metabolic Panel (09/16/23 10:18) Protime With Inr (09/16/23 10:18) Partial Thromboplastin Time (09/16/23 10:18) Ed Iv/Invasive Line Start (09/16/23 10:18) Vital Signs/I&O 09/16/23 09:55 Temp 35.6 Pulse 56 Resp 18 B/P (MAP) 153/94 (113) Pulse Ox 99 O2 Delivery Room Air Blood Pressure Mean: 113 Departure Impression Primary Impression: Rectal bleeding Disposition: 01 HOME, SELF-CARE Condition: Improved Departure-Patient Inst. Decision time for Depature: 11:09 Referrals: INDIA AREVALO MD (PCP/Family) Primary Care Physician Patient Instructions: Bloody Stools, Adult (DC) Add. Discharge Instructions: Your labs were normal today, and your vital signs are stable. The source of your bleeding is likely related to one of your known problems including colon polyps, diverticuli, or internal hemorrhoids. Please adhere to a clear liquid diet for the remainder of today to allow your bowels to rest. Then gradually advance your diet with small quantities of bland food as tolerated. There is likely still some blood in your colon that needs to clear, so expect to have some more blood visible in your stools even if the source of bleeding stops. Follow-up with Dr. Candelario and your primary care doctor as soon as possible. Please call today for appointments. Please stressed that you were in the emergency room for active rectal bleeding when you make the calls. Return to the emergency room if you have worsening symptoms including signs of severe blood loss such as shortness of breath, lightheadedness, racing heart, extreme fatigue, etc. Please also return if you develop new symptoms such as fever or pain. Finally, return if you believe the bleeding is severe and uncontrolled (hemorrhaging). All discharge instructions reviewed with patient and/or family. Voiced understanding. Copy Copies To 1: KIT CANDELARIO DO Copies To 2: INDIA AREVALO MD, JOSHUA T MD Sep 16, 2023 10:38
[2023-09-16 11:20] VITALS: BP 168/75
== END 2023-09-16 11:25 | disposition home or self-care (01) ==
LOC: EDUNIT# 09:45 → ER 09:48
DX: K92.1 Melena (principal)
CPT/HCPCS: 36415; 80053; 85025; 85610; 85730

== ENCOUNTER 2023-09-17 09:09 | Outpatient (CLI) | payer MEDICARE, OTHER ==
[~2023-09-17] VITALS: Ht 152.4 cm; Wt 65.0 kg
== END 2023-09-17 10:24 | disposition home or self-care (01) ==
LOC: PREOP 09:09
PROVIDERS: ATTEND Surgery
DX: Z01.818 Encounter for other preprocedural examination (principal)

== ENCOUNTER 2023-09-22 09:04 | Day surgery (SDC) | payer MEDICARE, OTHER ==
[~2023-09-22] VITALS: Ht 152.4 cm; Wt 65.0 kg
[2023-09-22] MEDS ORDERED: LACTATED RINGERS 1,000 ML 1,000 ML IV STA (09:11)
[2023-09-22] MEDS ORDERED: HURRICAINE EXT TUBE (BENZOCAINE) XX PRN (09:15)
[2023-09-22 09:47] VITALS: BP 163/79
--- NOTE | 2023-09-22 09:50 | Progress Note-Pre Operative ---
Pre-Operative Progress Note Date of Available H&P: Sep 16, 2023 Date H&P Reviewed: Sep 22, 2023 Time H&P Reviewed: 09:48 History & Physical: H&P Reviewed, Patient Examed, No changes noted Pre-Operative Diagnosis: Rectal bleed, KIT ROCHA DO Sep 22, 2023 09:49
[2023-09-22 10:55] VITALS: BP 103/51
--- NOTE | 2023-09-22 10:58 | Progress Note-Post Operative ---
Post-Operative Progess Note Surgeon (s)/Winterizer (s) Surgeon KIT CANDELARIO DO Winterizer: none Pre-Operative Diagnosis Rectal bleed, GERD Post-Operative Diagnosis Gastritis Hiatal hernia Diverticula Ulcer Internal hemorrhoids Procedure & Operative Findings Date of Procedure 09/22/23 Procedure Performed/Findings EGD with biopsy Colonoscopy with cold biopsy PROCEDURE NOTE: After informed consent was obtained, the patient was brought to the endoscopy suite, placed in bed in left lateral decubitus position. She was administered IV sedation by the SQL SERVER BI DEVELOPER who then monitored vitals the entire time, heart rate, blood pressure and pulse ox and the scope was inserted down the mouth through the esophagus into the stomach. On the way down, noted some mild esophagitis, took a picture, pushed into the stomach, pushed past the antrum into the duodenum. Duodenum looked good. Pulled back and did a biopsy of antrum, then retroflexed the scope, saw a hiatal hernia, took a picture of this and then pulled the scope into the GE junction, took another picture of the hiatal hernia and then did a biopsy of the GE junction. Pushed the scope back into the stomach, suctioned all the air out of the stomach. At this point pulled the scope up the esophagus and out the mouth. Switched camera, switched gloves, went down below and started the colonoscopy. Pushed all the way to about 90 cm and pushed into the cecum, took a picture of appendiceal orifice and noted the ileocecal valve. Then slowly withdrew the scope insufflating to look circumferentially at the damon starting in the cecum, up the ascending colon to the hepatic flexure, then down the transverse colon, splenic flexure and into the descending colon. Saw what looked like an ulcer, took a picture and did a cold biopsy. I saw multiple large diverticula on the left side and maybe some melenotic flecks, but did not see any thing else that could have been bleeding and nothing active. Down into the sigmoid, then into the rectal vault and retroflexed the scope. Took a picture of the internal hemorrhoids. The patient tolerated the procedure and she recovered in the endoscopy suite. Recommended for repeat colonoscopy in 10 years Anesthesia Type IV sedation by SQL SERVER BI DEVELOPER Estimated Blood Loss Estimated blood loss (mL): scant Specimens/Packing Specimens Removed Antral bx GE jxn bx desc colon bx KIT CANDELARIO DO Sep 22, 2023 10:58
--- NOTE | 2023-09-22 11:00 | Endoscopy Discharge Instruct ---
Endo Procedure/Findings Findings 1.: Gastritis 2.: Hiatal Hernia 3.: Diverticulosis 4.: Internal Hemorrhoids Discharge Instructions - Activity: You might feel a little sleepy until tomorrow. This is due to the medicine you received to relax you. Until tomorrow, you should: NOT drive a car, operate machinery or power tools. NOT drink any alcoholic beverages. NOT make any important decisions or sign importortant papers. Do not return to work until tomorrow, unless otherwise instructed. Resume previous activities tomorrow. Diet: Start by taking liquids. If you tolerate liquids, advance to solid food. 1.: EGD in 3 years 2.: Colonscopy in 10 years Notify Physician - If you experience excessive bleeding, unusual abdominal pain, fever, or chest pain, contact your doctor immediately. Follow-Up: Other Follow up in my office in one week KIT CANDELARIO DO Sep 22, 2023 11:00
[2023-09-22 11:07] VITALS: BP 114/57
[2023-09-22 11:26] VITALS: BP 114/57
--- NOTE | 2023-09-22 15:21 | Anesthesia-General Post-Op ---
MAC Patient Condition Mental Status/LOC: Same as Preop Cardiovascular: Satisfactory Nausea/Vomiting: Absent Respiratory: Satisfactory Pain: Controlled Complications: Absent Post Op Complications Complications None Follow Up Care/Instructions Patient Instructions None needed. Anesthesiology Discharge Order Discharge Order Patient is doing well, no complaints, stable vital signs, no apparent adverse anesthesia problems. No complications reported per nursing. MARNI SAAVEDRA PEDODONTIST Sep 22, 2023 15:21
== END 2023-09-22 11:38 | disposition home or self-care (01) ==
LOC: ENDO 09:04
PROVIDERS: ATTEND Surgery
DX: K21.00 Gastro-esophageal reflux disease with esophagitis, without bleeding (principal); K29.70 Gastritis, unspecified, without bleeding; K44.9 Diaphragmatic hernia without obstruction or gangrene; K64.8 Other hemorrhoids; K31.89 Other diseases of stomach and duodenum; K63.3 Ulcer of intestine; E66.9 Obesity, unspecified; M06.9 Rheumatoid arthritis, unspecified; K57.31 Diverticulosis of large intestine without perforation or abscess with bleeding; Z79.1 Long term (current) use of non-steroidal anti-inflammatories (NSAID); Z68.28 Body mass index [BMI] 28.0-28.9, adult
CPT/HCPCS: 43239; 45380; G0416; 88305